=== PATIENT | male | born 1950 | race Caucasian/White ===

== ENCOUNTER 2016-10-18 12:43 | Inpatient (IN) | payer MEDICAID ==
[~2016-10-18] VITALS: Ht 165.1 cm; Wt 63.0 kg
[2016-10-18] MEDS ORDERED: morphine 4 MG/ML VIAL IV STA (15:26)
--- NOTE | 2016-10-18 15:32 | RADRPT ---
PROCEDURE: XR Chest. CLINICAL INDICATION: Sepsis TECHNIQUE: Chest AP portable. COMPARISON: No comparison available. FINDINGS: Right internal jugular tunnel dialysis catheter. The mediastinal structures are unremarkable. There is calcification of the thoracic aorta (consiste nt with atherosclerosis). There is mild cardiomegaly. The pulmonary vascularity is normal. There is mild right mid lung field and RLL patchy consolidation. There is left basilar subsegmental atele ctasis. The pleural spaces are unremarkable. The osseous structures are unremarkable. IMPRESSION: Calcification of the thoracic aorta (consistent with atherosclerosis) Mild cardiomegaly Mild right mid lung field and RLL patchy consolidation Mild left basilar subsegmental atelectasis RPTAT: HGDB .Vipin Serrato MD, Date Time Electronically viewed and signed by .Vipin Serrato MD, on 10/18/2016 15:31 .B/
[2016-10-18 15:42] LABS: ADD SCAN DIFF NO
--- NOTE | 2016-10-18 15:42 | ERA ---
ER Documentation Chief Complaint Date/Time DATE: 10/18/16 TIME: 15:27 Chief Complaint Pt referred from [facility] for admission for L foot gangrene. HPI 65-year-old gentleman with a history of end-stage renal disease and bilateral lower extremity atherosclerosis with left lower extremity gangrene of his first and second toe s/p revascularization with left iliofemoral endarterectomy and a left common femoral artery to distal posterior tibial artery in situ bypass sent by his vascular surgeon, Dr. Quintero, for admission today. It seems the patient has not been doing as well as expected after surgery and he will need an amputation. Patient denies shortness of breath, chest pain, nausea, vomiting , fever, chills. He complains of pain in both his lower extremities, left greater than right. His pain is throbbing in the left leg, radiating up and down the whole leg, 4/10, worse with ambulation, better with rest. His right foot pain is burning, 4/10, nonradiating. ROS All systems reviewed and are negative except as per history of present illness. Medications Home Meds Reported Medications Hydrocodone/Acetaminophen ([place] 5-325 Tablet) 1 Each Tablet, 1 EACH PO Q6H, TAB 10/18/16 Amlodipine Besylate* (Amlodipine Besylate*) 10 Mg Tablet, 10 MG PO DAILY, #30 TAB 10/18/16 PMhx/Soc History of Surgery: Yes (bypass and endarterectomy LLE 09/2016) Hx Cardiac Disorders: Yes (HTN, PAD) Hx Miscellaneous Medical Probl: Yes (ESRD on HD, DM) Hx Alcohol Use: No Hx Substance Use: No Hx Tobacco Use: No Smoking Status: Former smoker FmHx Family History: No diabetes Physical Exam Vitals Vital Signs Date Time Temp Pulse Resp B/P Pulse Ox O2 Delivery O2 Flow Rate FiO2 10/18/16 13:12 97.9 73 18 193/84 100 Physical Exam Const: well appearing, nontoxic, no distress Head: Atraumatic Eyes: Normal Conjunctiva ENT: Normal External Ears, Nose and Mouth. Neck: Full range of motion. No meningismus. Resp: Clear to auscultation bilaterally Cardio: Regular rate and rhythm, no murmurs Abd: Soft, non tender, non distended. Normal bowel sounds Skin: No petechiae or rashes Back: No midline or flank tenderness Ext: LLE: medial aspect of leg with surgical scar with ricarda in place with distal aspect with surrounding erythema. Dry gangrene of 1st and 2nd toes. Associated swelling of foot with tenderness to palpation. No DP or PT pulses palpable. RLE: Big toe with gangrenous changes in the distal aspect. 1+ PT pulse , no DP pulse palpable. Neur: Awake and alert Psych: Normal Mood and Affect Result Diagram: 10/18/16 1525 10/18/16 1525 Results 24 hrs Laboratory Tests Test 10/18/16 15:25 Activated Partial Thromboplast Time 30.3Sec Alanine Aminotransferase (ALT/SGPT) 18IU/L Albumin 3.6g/dl Albumin/Globulin Ratio 0.85 Alkaline Phosphatase 208IU/L Anion Gap 25 Aspartate Amino Transf (AST/SGOT) 25IU/L Basophils # 0.110^3/ul Basophils % 0.4% Blood Urea Nitrogen 59mg/dl Calcium Level 9.3mg/dl Carbon Dioxide Level 26mmol/L Chloride Level 96mmol/L Creatinine 8.31mg/dl Direct Bilirubin 0.00mg/dl Eosinophils # 0.310^3/ul Eosinophils % 2.4% Globulin 4.20g/dl Glucose Level 185mg/dl Hematocrit 32.5% Hemoglobin 9.9g/dl Hemoglobin A1c 5.4% INR International Normalized Ratio 1.16 Indirect Bilirubin 0.0mg/dl Lymphocytes # 2.110^3/ul Lymphocytes % 18.6% Mean Corpuscular Hemoglobin 32.1pg Mean Corpuscular Hemoglobin Concent 30.5g/dl Mean Corpuscular Volume 105.5fl Mean Platelet Volume 11.0fl Monocytes # 1.110^3/ul Monocytes % 9.4% Neutrophils # 7.810^3/ul Neutrophils % 68.7% Nucleated Red Blood Cells # 0.010^3/ul Nucleated Red Blood Cells % 0.0/100WBC Platelet Count 97189^3/UL Potassium Level 4.7mmol/L Prothrombin Time 14.8Sec Prothrombin Time Ratio 1.2 Red Blood Count 3.0810^6/ul Red Cell Distribution Width 18.0% Sodium Level 142mmol/L Total Bilirubin 0.0mg/dl Total Protein 7.8g/dl White Blood Count 11.410^3/ul Current Medications Medications (Trade) Dose Ordered Sig/Familia Route PRN Reason Start Time Stop Time Status Last Admin Dose Admin Morphine Sulfate (morphine) 4 mg ONCE STAT IV 10/18/16 15:26 10/18/16 15:27 DC 10/18/16 15:39 Ondansetron HCl (Zofran Inj) 4 mg BRIDGE ORDER PRN IV NAUSEA AND/OR VOMITING 10/18/16 17:00 10/19/16 16:59 Acetaminophen (Tylenol Tab) 650 mg ER BRIDGE PRN PO MILD PAIN/FEVER 10/18/16 17:00 10/19/16 16:59 Procedures/MDM EKG: Rate/Rhythm: Normal Sinus Rhythm QRS, ST, T-waves: LAFB, No changes consistent w/ acute ischemia Impression: No evidence of ischemia or arrhythmia Chest x-ray: Per radiology Calcification of the thoracic aorta (consistent with atherosclerosis) Mild cardiomegaly Mild right mid lung field and RLL patchy consolidation Mild left basilar subsegmental atelectasis RPTAT: HGDB .Vipin Serrato MD, MD Date Time Electronically viewed and signed by .Vipin Serrato MD, MD on 10/18/2016 15:31 Labs show evidence of anemia, leukocytosis, elevated platelets Patient is presenting with likely failed revascularization of his left lower extremity and gangrene of his right big toe. He is afebrile and hemodynamically stable. There is no evidence of sepsis. Chest x-ray showed patchy infiltrates however on my exam the patient does not have symptoms or signs of pneumonia. Patient does have uncontrolled hypertension with no evidence of hypertensive urgency or emergency. Labs and radiologic testing were ordered as requested by . Patient will be admitted to the hospitalist with consult by Dr. Acevedo, Dr. Paige, and infectious disease. Accepting Care Team: Current data and ongoing care discussed. Time: Time of admission Primary Provider: Bacilio Consulting: Inpatient team to request consults with ID, Cardiology, Nephrology, Vascular inpatient Outstanding Data: blood cultures Departure Diagnosis: Primary Impression: Gangrene of foot Additional Impressions: Atherosclerosis of both lower extremities with bilateral ulceration Asymptomatic hypertension Condition: Serious BARBARA YUSUF MD Oct 18, 2016 15:37
[2016-10-18 15:47] LABS: BASOPHIL # 0.1 10^3/ul (0.0-0.1); BASOPHILS % 0.4 % (0.0-2.0); EOSINOPHILS # 0.3 10^3/ul (0.0-0.5); EOSINOPHILS % 2.4 % (0.0-7.0); HEMATOCRIT 32.5 % (42.0-52.0); HEMOGLOBIN 9.9 g/dl (14.0-18.0); LYMPHOCYTES # 2.1 10^3/ul (0.8-2.9); LYMPHOCYTES % 18.6 % (15.0-51.0); MEAN CORPUSCULAR HEMOGLOBIN 32.1 pg (29.0-33.0); MEAN CORPUSCULAR HGB CONC 30.5 g/dl (32.0-37.0); MEAN CORPUSCULAR VOLUME 105.5 fl (82.0-101.0); MONOCYTE # 1.1 10^3/ul (0.3-0.9); MONOCYTES % 9.4 % (0.0-11.0); NEUTROPHIL # 7.8 10^3/ul (1.6-7.5); NEUTROPHILS % 68.7 % (39.0-77.0); PLATELET COUNT 516 10^3/UL (140-415); RED BLOOD COUNT 3.08 10^6/ul (4.70-6.10); WHITE BLOOD COUNT 11.4 10^3/ul (4.8-10.8)
[2016-10-18 16:01] LABS: INR 1.16; PROTIME 14.8 Sec (12.2-14.2); PT RATIO 1.2
[2016-10-18 16:02] LABS: PARTIAL THROMBOPLASTIN TIME 30.3 Sec (25.0-35.0)
[2016-10-18] MEDS ORDERED: AMLO-147 PO (16:08)
[2016-10-18] MEDS ORDERED: HYDR-906 PO (16:08)
[2016-10-18 16:12] LABS: ALBUMIN 3.6 g/dl (3.3-4.9)
[2016-10-18 16:13] LABS: POTASSIUM 4.7 mmol/L (3.5-5.1)
[2016-10-18 16:15] LABS: ALBUMIN/GLOBULIN RATIO 0.85; CREATININE 8.31 mg/dl (0.61-1.24); TOTAL PROTEIN 7.8 g/dl (6.1-8.1)
[2016-10-18 16:16] LABS: CALCIUM 9.3 mg/dl (8.4-10.2)
[2016-10-18] MEDS ORDERED: ACETAMINOPHEN 325 MG TAB PO PRN (17:00)
[2016-10-18] MEDS ORDERED: ONDANSETRON 4 MG INJ IV PRN ×2 (17:00→22:30)
--- NOTE | 2016-10-18 18:14 | RADRPT ---
PROCEDURE: US bilateral lower extremity arteries. CLINICAL INDICATION: Bilateral leg pain. Claudication that interferes significantly with the alyssa ent's lifestyle. TECHNIQUE: Multiple longitudinal and transverse images of the bilateral lower extremity arteries w ere obtained with powell scale, pulsed Doppler, and color Doppler imaging. COMPARISON: No prior studies are available for comparison. FINDINGS: Right WATCH DIAL STONER:157 cm/sec PSFA:117 cm/sec MSFA:147 cm/sec DSFA:185 cm/sec POP:195 cm/sec ASSISTANT [employer] MANAGER:Occluded DPA:60 cm/sec Left WATCH DIAL STONER:85 cm/sec PSFA:36 cm/sec MSFA:47 cm/sec DSFA:56 cm/sec POP:40 cm/sec ASSISTANT [employer] MANAGER:40 cm/sec DPA:17 cm/sec On the right side, there is normal triphasic flow in the common femoral artery and proximal and mid superficial femoral artery. There is a severe stenosis with monophasic flow in the distal superfici al femoral artery. Monophasic flow is present distal to the stenosis within the otherwise patent po pliteal and dorsalis pedis arteries. The right posterior tibial artery is occluded. On the left side, there is abnormal biphasic flow in the common femoral artery and superficial femor al artery. Abnormal monophasic flow is present in the popliteal artery and calf arteries. IMPRESSION: 1. On the right side, severe stenosis of the distal superficial femoral artery. Occluded right pos terior tibial artery. 2. On the left side, abnormal flow throughout which may indicate iliac disease. RPTAT: QQ .Rick Tomlin MD, MD Date Time Electronically viewed and signed by .Rick Tomlin MD, on 10/18/2016 18:14 .R/
--- NOTE | 2016-10-18 18:58 | RADRPT ---
PROCEDURE: US Lower extremity Veins. CLINICAL INDICATION: Atherosclerotic disease. Preoperative evaluation. TECHNIQUE: Multiple longitudinal and transverse images of the bilateral lower extremity venous flores e was obtained with powell scale and color Doppler imaging. COMPARISON: None available FINDINGS: Right lower extremity: Groin GSV0.45 cm Upper thigh GSV 0.31 cm Mid thigh GSV 0.22 cm Lower thigh GSV 0.18 cm Knee GSV 0.11 cm Upper calf GSV 0.11 cm Mid calf GSV 0.10 cm Ankle GSV0.08 cm Left lower extremity: The left greater saphenous vein is not identified. IMPRESSION: 1. Right lower extremity venous mapping as above. 2. Nonvisualization of the left greater saphenous vein. RPTAT: AA .Peter Cordon MD, MD Date Time Electronically viewed and signed by .Peter Cordon MD, MD on 10/18/2016 18:57 .P/
--- NOTE | 2016-10-18 19:09 | RADRPT ---
PROCEDURE: US Lower extremity arterial. CLINICAL INDICATION: peripheral arterial disease, claudication, left leg pain TECHNIQUE: Multiple sonographic images of the left lower extremity arteries and bypass graft were obtained utilizing grayscale, color-flow and doppler imaging. The images were reviewed on a PACS [employer]. COMPARISON: 10/18/2016 FINDINGS: There is a left leg bypass graft which is widely patent. The bypass originates in the left groin ex tending to the mid calf. LEFT LEG: Left graft origin: 81 cm/s; monophasic waveforms Left proximal graft: 77 cm/s; monophasic waveforms Left mid graft: 94 cm/s; monophasic waveforms Left distal graft: 93 cm/s; monophasic waveforms Left graft in the midcalf: 87 cm/s; monophasic waveforms Left graft in the proximal calf: 187 cm/s; monophasic waveforms RPTAT: AA IMPRESSION: Widely patent left leg bypass graft with slightly increased velocity in the region of the proximal c samantha. Further evaluation with a CT angiogram is recommended. .Jay Faust MD, Date Time Electronically viewed and signed by .Jay Faust MD, on 10/18/2016 19:09 .S/
[2016-10-18 19:10] VITALS: BP 192/87; PULSE 86; RESP 20
[2016-10-18] MEDS: METOPROLOL 25 MG TAB PO SCH (19:36)
[2016-10-18 19:46] VITALS: Ht 165.1 cm; Wt 63.0 kg
[2016-10-18] MEDS ORDERED: AMLODIPINE 10 MG TAB PO ONE (20:00)
[2016-10-18] MEDS: hydrALAzine 20 MG INJ IV PRN (20:35)
[2016-10-18 21:00] VITALS: BP 160/68; PULSE 63; RESP 18
[2016-10-18] MEDS ORDERED: VANCOMYCIN 1 GM (PMX) 250 ML IVPB SCH (21:00)
[2016-10-18 21:30] VITALS: BP 156/69; PULSE 68; RESP 18
[2016-10-18 22:00] VITALS: BP 143/64; PULSE 70; RESP 18
[2016-10-18] MEDS: SOD CHLORIDE 0.9% 1,000 ML IV SCH (22:26)
[2016-10-18 22:30] VITALS: BP 131/61; PULSE 70; RESP 18
[2016-10-18] MEDS ORDERED: GLUCAGON 1 MG INJ IM PRN (22:30)
[2016-10-18] MEDS ORDERED: GLUCOSE GEL 15 GRAM TUBE PO PRN ×2 (22:30)
[2016-10-18] MEDS ORDERED: BISACODYL 10 MG SUPP PR PRN (22:30)
[2016-10-18] MEDS ORDERED: GLUCOSE GEL 15 GRAM TUBE BUCCAL PRN (22:30)
[2016-10-18] MEDS ORDERED: NACL 0.9% 3 ML SYG IV SCH (22:30)
[2016-10-18] MEDS ORDERED: DEXTROSE 50% 50 ML SYRINGE IV PRN ×2 (22:30)
[2016-10-18] MEDS: CEFTRIAXONE 1 GM/50 ML (PMX) 50 ML IVPB SCH (22:50)
[2016-10-18] MEDS: morphine 2 MG INJ IV PRN (22:51)
[2016-10-18 23:00] VITALS: BP 123/58; PULSE 74; RESP 18
[2016-10-18] MEDS: ALBUTEROL HFA 8 GM INHALER INH SCH (23:45)
[2016-10-18] MEDS: INSULIN GLARGINE [LANtus] 3 ML PEN SC SCH (23:48)
[2016-10-18] MEDS: INSULIN ASPART [NOVOLOG] 3 ML PEN SC SCH (23:48)
[2016-10-19] VITALS (33 sets, daily range): BP systolic 130–256; BP diastolic 37–201; PULSE 67–84; RESP 12–22
[2016-10-19 01:28] LABS: TROPONIN-I 0.085 ng/ml (0.00-0.12)
[2016-10-19 01:36] LABS: CK-MB 0.96 ng/ml (0.0-2.4)
[2016-10-19] MEDS: HEPARIN 25000 UNITS/250 ML 250 ML IV SCH (01:53)
[2016-10-19] MEDS: ACCU-CHEK XX SCH (03:13)
--- NOTE | 2016-10-19 04:42 | CONS ---
DATE OF ADMISSION: 10/18/2016 DATE OF CONSULTATION: 10/18/2016 Dear Doctors: HISTORY OF PRESENT ILLNESS: Mr. Zepeda is a 65-year-old gentleman with a history of end-st age renal disease and bilateral lower extremity atherosclerosis with gangrene. The patient had been seen by us back in August of 2016 for creation of a fistula secondary to the end-stage renal disea se. The patient currently has a right chest wall PermCath catheter that has been exchanged multiple times and currently his new one in the right chest wall has been functioning well. Since our last visit, patient had developed worsening gangrene of the bilateral lower extremities in which he had u ndergone a left lower extremity revascularization of femoral to distal posterior tibial artery in si tu bypass at [facility]. The patient had come to our office for evaluation of his lo wer extremities and he seems that he has developed new right lower extremity gangrene of the first t oe that essentially has worsened with cellulitis and at the same time patient has had the increased pain at the left lower extremity over the past week; however, he has not sought any medical advice. Upon discussion with the patient, it seems that the patient originally had done well postoperativel y for first 2-1/2 to 3 weeks; however, over the past week he had slowly developed some pain in the l eft lower extremity and some suggestion of possible changes in his pedal outflow. At the moment, th e patient denies shortness of breath, chest pain, nausea, vomiting, fever, or chills. The patient also did have some reperfusion edema and his first and second toe had developed adequate demarcation post his revascularization in which we felt optimistic that we would be able to provide adequate limb salvage for him. REVIEW OF SYSTEMS: A 12-point review performed and negative except what is mentioned in the HPI. PAST MEDICAL HISTORY: Entails hypertension, diabetes, hypercholesterolemia, bilateral lower extremi ty atherosclerosis with gangrene, end-stage renal disease, anemia of chronic disease, coronary arter y disease. PAST SURGICAL HISTORY: 1. Entails multiple chest wall catheters. 2. Left lower extremity iliofemoral endarterectomy with bovine patch angioplasty and common femoral artery to distal posterior tibial artery in situ bypass. SOCIAL HISTORY: Positive for being a former smoker, currently not smoking. Denies illicit drug use or alcohol abuse. FAMILY HISTORY: Positive for coronary artery disease and hypertension. PHYSICAL EXAMINATION: GENERAL: Alert and oriented x3, no apparent distress. HENT: Normocephalic, atraumatic. PERRLA, EOMI. Mucosa moist. NECK: Supple. No carotid bruit. PULMONARY: Clear to auscultation bilaterally. No crackles. CARDIOVASCULAR: S1, S2 present. No murmurs. ABDOMEN: Soft, nontender, nondistended. Bowel sounds positive. EXTREMITIES: Lower extremity: Right lower extremity palpable femoral pulse, nonpalpable pedal pulse. Motor, sen regi intact. Cap refill 3 to 4 seconds. He has developed gangrene of the first and second toe with surrounding erythema and pain of the first toe which has worsened since we had seen him in early [facility]. Left lower extremity: Palpable femoral pulse, palpable graft at the knee. Dopplerable signal right to the mid calf and seems that he has a branch from the in situ bypass that goes to the posterior c samantha segment. At that segment, it seems that the flow decreases and he may be having a steal from th e graft. He does have some edema that is 1+. He does have gangrene of the first and second toe. H is capillary refill has become a bit sluggish, being 3 seconds. He does have some areas of erythema around the gangrene and his incision line ricarda are all intact in the groin, thigh, and the upper calf area and from the mid calf down he has developed some eschar and wound necrosis towards the ar eas of the ankle with some serosanguineous drainage. ASSESSMENT AND PLAN: Bilateral lower extremity atherosclerosis with gangrene: It seems that the mikey mccain's left lower extremity revascularization there is some concern that the graft may not be fully having an adequate profusion all the way to the foot. There seems to be a vein that occurs in the mid calf area that may be stealing the flow. We will need to evaluate this by obtaining a CT angiog arpita promptly in order to further evaluate the outflow of the bypass. We will also plan to obtain arterial vascular ultrasound to delineate his new right lower extremity infrainguinal disease as his gangrene has essentially developed of the first toe in which he had tis cora loss earlier in the month. We will obtain bilateral lower extremity vein mapping in case the patient will require further revas cularization as we would need further conduit for him. Will go ahead and check his lesser saphenous veins of bilateral lower extremities. End-stage renal disease: The patient has had a history of bilateral upper extremity, chest wall cat heters, and he has also undergone bilateral upper extremity venograms. The patient had been schedul ed as an outpatient for eventual left upper extremity fistula creation. However, at the moment we will plan to keep his antecubital segments free of any IV lines or blood draws and will eventually p nancy for creation of a new fistula for him. Optimize vascular status (BP meds, diet, nutrition, exercise, sugar control, antiplatelets). We will consult our infectious disease, Dr. Galindo, for further evaluation and recommendations. We will consult Dr. Cuevas for podiatry evaluation and eventual toe amputations. We will consult Dr. Acevedo from cardiology to further evaluate the patient and for clearance for ou r intraoperative intervention. We will consult Dr. Paige from his end-stage renal disease standpoint for evaluation of his kidney f unction and scheduling for dialysis earlier prior to him having a surgical intervention. We will tentatively schedule the patient for the operating room tomorrow morning in order to debride the area of the left lower extremity distal wound and to further evaluate the bypass near the calf area and perform possible revascularization for the patient. Apply Betadine paint to all the incision lines for now. Thank you for allowing us to participate in the care of your patient. Please call with any question s. Dictated By: CYNDI GARCIA/SIN Conf#: [id number] DID#: [id number]
--- NOTE | 2016-10-19 05:43 | CONS ---
DATE OF ADMISSION: 10/18/2016 DATE OF CONSULTATION: 10/18/2016 REASON FOR CONSULTATION: Preoperative evaluation. REQUESTING PHYSICIAN: Dr. Bradley Carr from the vascular surgery service. HISTORY OF PRESENT ILLNESS: Mr. Goldsmith is a 65-year-old male with history of end-stage re nal disease on hemodialysis since 2013, coronary artery disease, diabetes, diabetic nephropathy, and dyslipidemia who presents with a left toe ulcer. The patient has been evaluated by vascular surger y with plans for revascularization. Given these findings, cardiology consult has been requested for preoperative evaluation. has undergone lower extremity revascularization and continues to salazar ve gangrenous changes of the toe and therefore will undergo further surgical treatment. Given these findings, cardiac consult was requested for preoperative evaluation. At this time, the patient den ies chest pain. PAST MEDICAL HISTORY: As above in HPI. MEDICATIONS CURRENTLY IN HOSPITAL: 1. Zofran. 2. Tylenol. MEDICATIONS PRIOR TO ADMIT: 1. Norvasc. 2. Hydrocodone. ALLERGIES: NO KNOWN DRUG ALLERGIES. SOCIAL HISTORY: No current tobacco, prior tobacco usage. No ETOH or illicit drug use. FAMILY HISTORY: No history of sudden cardiac or early CAD. REVIEW OF SYSTEMS: As above in HPI. CONSTITUTIONAL: No fevers, chills. PULMONARY: No current shortness of breath. CARDIOVASCULAR: No current chest pain, history of coronary artery disease. GASTROINTESTINAL: No vomiting. GENITOURINARY: No hematuria. MUSCULOSKELETAL: Degenerative joint disease, nonhealing lower extremity ulcer of the toe. PSYCHIATRIC: No documented psych history. NEUROLOGIC: No documented history of CVA. ENDOCRINE: Diabetes mellitus. PHYSICAL EXAMINATION: VITAL SIGNS: Temperature of 97.9, blood pressure markedly elevated at 193/84, pulse 72, respiratory rate 18, saturation 100%. GENERAL: The patient is alert, awake, in no acute distress. NECK: JVP approximately 8 to 9 cm water. CHEST: Fair air movement throughout. HEART: Regular rate and rhythm. Normal S1, S2, I/ systolic murmur, nondisplaced PMI. ABDOMEN: Positive bowel sounds, soft. EXTREMITIES: Nonhealing lower extremity ulceration, difficult to palpate distal pulses bilaterally, posterior tibial, dorsalis pedis. LABORATORY DATA: Most recent from today, white count 11.4, hemoglobin 9.9, platelet count of 516. Sodium 142, potassium 4.7, creatinine 8.3, BUN of 59, AST 25, ALT 18. INR of 1.1. IMAGING STUDIES: As above in HPI with a chest x-ray revealing mild cardiomegaly, mild right mid betzaida g field and right lower lobe patchy consolidation. IMPRESSION: 1. Preoperative evaluation prior to lower extremity vascular surgery, possible amputation. 2. Hypertension, uncontrolled. 3. Abnormal electrocardiogram, assess for acute coronary syndrome. 4. Dyslipidemia. 5. Peripheral arterial disease, status post prior revascularization. 6. Lower extremity nonhealing ulceration of the toe. 7. Possible pneumonia by chest x-ray. 8. End-stage renal disease on hemodialysis. 9. Anemia. 10. Leukocytosis. RECOMMENDATIONS: 1. At this time, would resume the patient's baseline Norvasc and likely initiate the patient on low dose beta darling to improve overall heart rate and increased blood pressure control and for cardio protective effects. 2. We will check a 2D echocardiogram to further assess the patient's ejection fraction, wall motion , and major valve abnormalities. 3. We will complete a rule out for myocardial infarction to ensure the patient's EKG abnormalities are chronic in nature and not due to any recent acute coronary syndrome such as acute myocardial inf arction. 4. Check a fasting lipid panel for general risk stratification and initiate lipid-lowering medicati on as necessary. 5. Pain control. 6. Local wound control. 7. Further recommendations pertaining to the surgical candidacy of this patient will be made after completion of above studies with possible need for further evaluation with stress testing. Thank you for allowing me to take part in the care of this patient. I will continue to follow along very closely with you. Dictated By: KAYLEE LYNN/SIN Conf#: [id number] DID#: [id number] CC: BRADLEY CARR MD;*EndCC*
[2016-10-19 05:51] LABS: ADD SCAN DIFF NO
[2016-10-19] MEDS: ALBUTEROL HFA 8 GM INHALER INH SCH ×3 (06:00→22:00)
[2016-10-19 06:17] LABS: BASOPHILS % 0.3 % (0.0-2.0); EOSINOPHILS # 0.3 10^3/ul (0.0-0.5); EOSINOPHILS % 2.3 % (0.0-7.0); HEMATOCRIT 29.4 % (42.0-52.0); LYMPHOCYTES # 2.1 10^3/ul (0.8-2.9); LYMPHOCYTES % 18.8 % (15.0-51.0); MEAN CORPUSCULAR HEMOGLOBIN 31.9 pg (29.0-33.0); MEAN CORPUSCULAR HGB CONC 30.6 g/dl (32.0-37.0); MEAN CORPUSCULAR VOLUME 104.3 fl (82.0-101.0); MEAN PLATELET VOLUME 11.4 fl (7.4-10.4); MONOCYTE # 1.1 10^3/ul (0.3-0.9); MONOCYTES % 10.1 % (0.0-11.0); NEUTROPHIL # 7.6 10^3/ul (1.6-7.5); NEUTROPHILS % 68.1 % (39.0-77.0); PLATELET COUNT 482 10^3/UL (140-415); RED BLOOD COUNT 2.82 10^6/ul (4.70-6.10); RED CELL DISTRIBUTION WIDTH 18.1 % (11.5-14.5); WHITE BLOOD COUNT 11.1 10^3/ul (4.8-10.8)
[2016-10-19 06:25] LABS: ALBUMIN 3.3 g/dl (3.3-4.9)
[2016-10-19 06:26] LABS: POTASSIUM 4.7 mmol/L (3.5-5.1)
[2016-10-19 06:28] LABS: CREATININE 8.81 mg/dl (0.61-1.24)
[2016-10-19 06:29] LABS: ALBUMIN/GLOBULIN RATIO 0.84; CALCIUM 8.6 mg/dl (8.4-10.2); PHOSPHORUS 3.2 mg/dl (2.5-4.9); TOTAL PROTEIN 7.2 g/dl (6.1-8.1)
[2016-10-19 06:30] LABS: MAGNESIUM 2.8 mg/dl (1.7-2.5)
[2016-10-19 06:47] LABS: THYROID STIMULATING HORMONE 1.22 MIU/L (0.465-4.680)
[2016-10-19 06:51] LABS: TROPONIN-I 0.085 ng/ml (0.00-0.12)
[2016-10-19 07:03] LABS: CK-MB 0.9 ng/ml (0.0-2.4)
[2016-10-19 07:42] LABS: CHOL/HDL RATIO 3.6 RATIO
--- NOTE | 2016-10-19 07:57 | CONS ---
DATE OF ADMISSION: 10/18/2016 DATE OF CONSULTATION: 10/18/2016 REFERRING PHYSICIAN: Wallace Ribera MD TYPE OF CONSULT: Nephrology REASON FOR CONSULTATION: Maintenance hemodialysis in chronic dialysis patient who presented with ga ngrene of the lower extremities and possible plan for intervention for her lower extremity angiogram due to the gangrene. HISTORY OF PRESENT ILLNESS: This is a 65-year-old male with a past medical history of hypertension, peripheral arterial disease, who had lower extremity bypass and endarterectomy done in the left low er extremity September 2016. The patient had a history of end-stage renal disease on hemodialysis du e to hypertensive nephrosclerosis. The patient was seen by vascular surgery, Dr. Bradley Quintero, a nd noted to have lower extremity gangrene. The patient has first and second toe gangrene. As per t he patient, gives a previous history of lower extremity bypass and endarterectomy done in September 02, which looks like it is not working, so the patient gets [facility]. Renal has been consulted for maintenance hemodialysis in a chronic dialysis patient . The patient has a right upper chest tunneled hemodialysis catheter. He has been on dialysis since . The dialysis catheter was done at [facility]. Previous history of lower extremity ga ngrene, pain, swelling. REVIEW OF SYSTEMS: Review of systems has been obtained and is negative except what is mentioned in history of present illness. PAST MEDICAL HISTORY: Notable for hypertension, coronary artery disease, diabetes mellitus, diabeti c nephropathy, hyperlipidemia, end-stage renal disease on hemodialysis Tuesday, and . PAST SURGICAL HISTORY: Multiple chest wall catheters. ALLERGIES: NO KNOWN DRUG ALLERGIES. 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 He denies any current alcohol, tobacco or illicit drug use. FAMILY HISTORY: Positive for hypertension, diabetes, coronary artery disease. PHYSICAL EXAMINATION: VITAL SIGNS: Temperature 97.7, heart rate 86, respirations 20, blood pressure 192/87, saturation 94 % on room air. GENERAL: Awake, alert, in moderate distress due to the elevated blood pressure and the pain. HEENT: Normal. Oropharynx clear. NECK: Supple, no JVD. LUNGS: Clear to auscultation. No crackles, no wheezes. HEART: S1, S2, with regular rhythm, no murmur. ABDOMEN: Soft, nontender, nondistended. Bowel sounds are present. EXTREMITIES: The patient has lower extremity gangrene. No cyanosis. Right upper chest tunneled he modialysis catheter. NEUROLOGICAL: Alert, oriented x4. Cranial nerves II-XII intact. No focal deficits. PSYCHIATRIC: Appropriate affect and mood. LABORATORY DATA/DIAGNOSTIC IMAGING: WBC 11.4, hemoglobin 9.9, platelet count 516. Sodium 142, pota ssium 4.7, chloride 96, bicarbonate 26, BUN 59, creatinine 8.3, glucose 185, calcium 9.3. LFTs are normal. Albumin 3.6. Prothrombin time 14.8, PTT 30.3, INR 1.16. The patient had a chest x-ray don e that shows a calcification of the thoracic aorta, mild cardiomegaly, mild right in the righ t lower lobe patchy consolidations, left basilar subsegmental atelectasis. Arterial Doppler ultraso unds done which revealed severe stenosis of the distal superficial femoral artery on the right side, the right posterior tibial artery, on the left side iliac disease, patent graft. IMPRESSION: This is a 65-year-old male who presented with lower extremity gangrene on a peripheral arterial ultrasound. He is noted to have a severe stenosis of the distal right superficial femoral artery and also the occluded right posterior tibial artery. [facility] The patient is possibly in need of a lower extremity angiogram. 1. Lower extremity gangrene secondary to severe occlusive peripheral arterial disease. 2. Severe stenosis of the right distal superficial femoral artery and occluded right posterior tibi al artery. 3. End-stage renal disease on hemodialysis Tuesday, , Tuesday. 4. Accelerated hypertension. 5. Hyperlipidemia. 6. History of hypertension with peripheral arterial disease. 7. History of peripheral arterial disease status post left lower extremity bypass in September 2016. PLAN: Thank you, Dr. Ribera, for this consultation. [facility] and he will be getting admitted to the med/surg floor. 1. I will give the patient amlodipine 10 mg p.o. daily for his blood pressure control and also cont inue the metoprolol 25 mg p.o. b.i.d., hydralazine 10 mg IV every 4 hours p.r.n. systolic blood pres sure more than 150. 2. AM labs including the CBC and the BCMP will be ordered. 3. I will arrange the patient's hemodialysis to be done tomorrow. The circuit court judge and the primary care service is already on the case. Thank you, Dr. Ribera, for this consultation. I will continue to follow this patient along with cardiology and vascular service. Total time spent on this patient's evaluation including making an assessment and plan, communicating with the patient and updating family members at bedside, communicating with the nursing staff and o rdering dialysis for tomorrow took more than 90 minutes and more than 50% of time spent in education . Dictated By: LISA MERRITT MD, KP/SIN Conf#: [id number] DID#: [id number]
--- NOTE | 2016-10-19 07:58 | CONS ---
DATE OF ADMISSION: 10/18/2016 DATE OF CONSULTATION: 10/18/2016 INFECTIOUS DISEASE CONSULTATION REASON FOR CONSULTATION: Antibiotic management. HISTORY OF PRESENT ILLNESS: Caleb Anderson is a 65-year-old male who comes in from the [facility] for admission for left foot gangrene. Mr. Patricio Anderson is a 65-year-old male wi th a number of problems, includin. End-stage renal disease. 2. Bilateral lower extremity atherosclerosis who presents with left lower extremity gangrene of his 1st and 2nd toe. 3. Status post revascularization of left iliofemoral endarterectomy and left common femoral artery to distal posterior tibial artery in situ bypass. Sent in by vascular surgeon, Dr. Quintero for admission. The patient has not been doing well after surgery and will probably need an amputation. His pain is about 4/10. His left leg is throbbing a nd the pain radiates down the whole leg. PAST MEDICAL HISTORY: Operations as outlined. Past medical history includes hypertension, peripher al artery disease, end-stage renal disease on hemodialysis, and diabetes mellitus. FAMILY HISTORY: Noncontributory. SOCIAL HISTORY: He did smoke in the past, former smoker. Does not drink or abuse drugs. ALLERGIES: NONE TO PENICILLIN, SULFA OR FOODS. MEDICATIONS: Per chart. REVIEW OF SYSTEMS: As per HPI. PHYSICAL EXAMINATION: GENERAL: The patient is a well-developed, well-nourished male, alert, responsive, in no acute distr ess. VITAL SIGNS: Stable. He is afebrile. SKIN: Without generalized rash. HEENT: Within normal limits. NECK: Supple. LYMPH NODES: None palpable. CHEST: Decreased breath sounds at the bases. HEART: Without murmur or gallop. ABDOMEN: Soft, nontender, without organosplenomegaly or masses. EXTREMITIES: Left lower extremity has a surgical scar in the medial aspect with ricarda in place wi th distal surrounding erythema. There is dry gangrene of the 1st and 2nd toes and associated swelli ng of the foot with tenderness to palpation. Distal pulses were not palpable. Right lower extremit y big toe with gangrenous changes in the distal aspect. RECTAL AND GENITAL: Exams deferred. NEUROLOGIC: Decreased sensations in distal extremities. ANCILLARY LABORATORY DATA: White count is 11.4, H and H 9.9 and 32.5, platelet count ____. BUN and creatinine 59/8.31. ____. DIAGNOSTIC DATA: The patient's right lower extremity has nonvisualization of the left greater saphe nous vein on ultrasound of the lower extremity veins. Arterial studies on the right side, severe st enosis of the distal superficial femoral artery with occluded right posterior tibial. On the left, abnormal flow throughout which may indicate iliac disease, widely patent left leg bypass graft. Fur ther evaluation with CT angiogram was recommended. Chest x-ray: Mild right mid-lung field and right lower lobe patchy consolidation. IMPRESSION AND PLAN: The patient presents with failed revascularization of left lower extremity and gangrene of his right big toe. He is afebrile. Chest x-ray shows patchy infiltrates. The patient was admitted and Dr. Acevedo and Dr. Paige were called in consultation. Patient was begun on ceftr iaxone and vancomycin. We will continue him on that regimen. He will require probable amputation a s previously outlined. I will dictate my findings to Dr. Quintero and the aforementioned consultan ts. Dictated By: NICOLE NICHOLS MD, JD/SIN Conf#: [id number] DID#: [id number]
--- NOTE | 2016-10-19 07:58 | HP ---
DATE OF ADMISSION: 10/18/2016 PRIMARY CARE PHYSICIAN: Unknown. CONSULTANTS: Dr. Carr, Lisa Paige MD, Nigel Nichols MD, Dr. Acevedo CHIEF COMPLAINT: Left foot gangrene. HISTORY OF PRESENT ILLNESS: A 65-year-old gentleman admitted with left lower extremity pain along h is toes for a week, constant. No known aggravating, no known relieving factors. Talking may make i t worse. Denies any edema, fever, chills, rigors. Denies any leg pain in his right. Denies any ar m pain. The patient had an angiogram and bypass of that same extremity recently, but unfortunately the [facility] was noted to have concern for graft failure. Incidentally, the patient states that having additionally a right toe discoloration over the last 3 to 4 days. VITAL SIGNS: Blood pressure 190/80, rate of 70, respiratory rate 18, sats 100%, temperature 97. PAST MEDICAL HISTORY: 1. Left lower extremity gangrene. 2. Peripheral artery disease. 3. End-stage renal disease, on dialysis. 4. Hypertension. 5. Hypertensive nephrosclerosis. 6. Diabetes. 7. Peripheral artery disease. 8. Past tobacco abuse for 15 years. 9. Hypertensive nephrosclerosis less likely. 10. Anemia. 11. Possible past alcohol. 12. Possible coronary artery disease. PAST SURGICAL HISTORY: Hemodialysis access, left hand and right upper chest, left axis was clotted at one point. He has been on dialysis for 2 years. SOCIAL HISTORY: Presently no alcohol or tobacco. 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 FAMILY HISTORY: There is no family history for coronary cancer or stroke. ALLERGIES: VANCOMYCIN. REVIEW OF SYSTEMS: NEUROLOGIC: No headache. No loss of speech or vision. CARDIOVASCULAR: Positive chest pain, no dyspnea, no edema. The chest pain is atypical at rest at n ight while lying down, relieved with sitting up. He does not get any significant diaphoresis, nause a, vomiting, palpitations during the episode. LUNGS: Positive cough, clear expectoration. No hemoptysis, no fever. ABDOMEN: No pain, nausea, vomiting, diarrhea, constipation. GENITOURINARY: No abdominal pain, fever, dysuria. MUSCULOSKELETAL: Moderate gait dysfunction. No rash, no itching, no edema. CONSTITUTIONAL: No fevers, no chills, weight loss unknown. HEMATOLOGIC: There is no hematochezia, melena, hematuria. PSYCHIATRY: The patient has stable mood without significant agitation, anxiety, depression. He is in good spirits otherwise. PHYSICAL EXAMINATION: HEENT: Extraocular movements are intact. No pallor, no icterus. No adenopathy. No carotid bruits . No JVD. No droop. CARDIOVASCULAR: S1, S2 regular. No murmur, rubs, gallops appreciated. LUNGS: Clear to auscultation bilaterally. CHEST: Right dialysis access clean, dry, and intact. ABDOMEN: Bowel sounds were present, nontender, nondistended. No rigidity. No rebound or guarding. No abdominal bruits. EXTREMITIES: Without any edema. Positive bilateral stasis dermatitis, diabetic neuropathy, poor pu lses bilaterally. The left foot is cooler than the right. The left lower extremity ricarda are int act. Scar healing still forming. LABORATORIES: White cell count of 11, hemoglobin and hematocrit of 9 and 32, MCV 105, platelets of 516. INR 1.1. Sodium 142, potassium 4.7, chloride 96, bicarbonate 26, BUN of 59, creatinine 8.3. A1c of 5.4, glucose of 180, protein is 7, albumin of 3.6. Chest x-ray: Mild cardiomegaly, right lo wer lobe patchy consolidation, atelectasis. Ultrasound, venous, right and left does not show any DV T. There is nonvisualization of the left greater saphenous vein of undetermined significance. Michelle rial ultrasound on the right shows severe stenosis of the distal superficial femoral artery, occlude d right posterior tibial artery. On the left there is abnormal flow. Shows a widely patent left le g bypass graft with slightly increased velocities in the region of proximal calf. ASSESSMENT AND PLAN: 1. Left lower extremity dry gangrene with peripheral artery disease. 2. End-stage renal disease. 3. Hypertension/diabetes/metabolic syndrome. 4. Anemia. 5. Past tobacco. 6. Additionally, right lower extremity dry gangrene. 7. Possible past alcoholism. 8. Pneumonia versus atelectasis. PLAN: 1. Admit to med/surg, consult vascular surgery for opinion, angiogram, and potential innervation of his bypass graft. Consult infectious disease for evaluation of secondary infection, possible osteo . Consult nephrology for dialysis continuity and assistance with extra dialysis as needed post rafi ogram. 2. Consult cardiology for perioperative risk stratification, clearance, etc. 3. Treat pain. Continue IV fluids, n.p.o. Chest x-ray done. EKG pending. From an internal medic ine standpoint, the patient appears to be at low to intermediate risk, may proceed forward for angio gram as well as left amputation of his toes when scheduled. The patient and family aware of the ___ _ and options. They are opting to proceed forward. Will need the right lower extremity evaluated a s well. Doubt pulmonary infectious process. We will continue with incentive spirometry and albuter ol. Ay short course of Levaquin if okay with ID as well. A 2-D echo ordered as well. Continue GI and DVT prophylaxis, Lovenox, heparin, after surgery. Dictated By: CAL FLORES MD AC/NTS Conf#: [id number] DID#: [id number] CC: LISA PAIGE MD; KAYLEE ACEVEDO MD; NIGEL NICHOLS MD; CYNDI CARR MD;*EndCC*
[2016-10-19] MEDS: INSULIN ASPART [NOVOLOG] 3 ML PEN SC SCH ×4 (08:15→20:56)
[2016-10-19] MEDS: AMLODIPINE 10 MG TAB PO SCH (08:29)
[2016-10-19] MEDS: FAMOTIDINE 20 MG TAB PO SCH (08:29)
[2016-10-19] MEDS: METOPROLOL 25 MG TAB PO SCH ×2 (08:29→20:58)
[2016-10-19] MEDS: morphine 2 MG INJ IV PRN ×3 (09:11→23:38)
[2016-10-19] MEDS ORDERED: IODIXANOL LOCM 100 ML BTL ONE (09:51)
[2016-10-19] MEDS ORDERED: SOD CHLORIDE 0.9% 100 ML ONE (09:51)
[2016-10-19] MEDS ORDERED: IODIXANOL LOCM 50 ML BTL ONE (09:52)
--- NOTE | 2016-10-19 11:03 | CONS ---
Date/Time of Note Date/Time of Note DATE: 10/19/16 TIME: 10:56 Assessment/Plan Assessment/Plan Additional Assessment/Plan 1. Preoperative evaluation prior to lower extremity vascular surgery, possible amputation- aggie-op evaluation in place, con't to follow. 2. Hypertension, uncontrolled- better now, will Rx as needed. 3. Abnormal electrocardiogram, assess for acute coronary syndrome. 4. Dyslipidemia. 5. Peripheral arterial disease, status post prior revascularization- s/p vascular studies/CT - vascular team follows 6. Lower extremity nonhealing ulceration of the toe. 7. Possible pneumonia by chest x-ray. 8. End-stage renal disease on hemodialysis. 9. Anemia. 10. Leukocytosis. Consultation Date/Type/Reason Admit Date/Time Oct 18, 2016 at 16:52 Initial Consult Date 24 HR Interval Summary Free Text/Dictation No acute change - BP stable - will adjust Rx as needed -con't vascular evaluation. ROS: No fever, no chills, no nausea, no vomiting, no diarrhea/constipation No recent weight changes No chest pain, no PND, no orthopnea No dizziness, blurred vision No thirst, no heat or cold intolerance Exam/Review of Systems Vital Signs Vitals Vital Signs Date Time Temp Pulse Resp B/P Pulse Ox O2 Delivery O2 Flow Rate FiO2 10/19/16 08:02 97.7 79 19 137/65 10/18/16 19:10 94 Intake and Output 10/18/16 10/18/16 10/19/16 15:00 23:00 07:00 Intake Total 865 ml Output Total 2500 ml Balance -1635 ml Exam General: WN/WD/NAD, AOx 3 HEENT: Unicetric/atraumatic/EOMI (follow commands) NECK: JVD elevated, no thyromegaly Lymph: no lymphadenopathy HEART: regular with no S3, II/ systolic murmur at apex LUNGS: Coarse sounds ABD: soft, NT, ND, +BS : Intact Neuro: non focal SKIN: chronic changes EXT: severe pvd/ gangrene Results Result Diagram: 10/19/16 0545 10/19/16 0545 Results 24 hrs Laboratory Tests Test 10/18/16 15:25 10/18/16 22:49 10/19/16 00:35 10/19/16 03:12 Activated Partial Thromboplast Time 30.3 Alanine Aminotransferase (ALT/SGPT) 18 Albumin 3.6 Albumin/Globulin Ratio 0.85 Alkaline Phosphatase 208 H Anion Gap 25 H Aspartate Amino Transf (AST/SGOT) 25 Basophils # 0.1 Basophils % 0.4 Blood Urea Nitrogen 59 H Calcium Level 9.3 Carbon Dioxide Level 26 Chloride Level 96 L Creatinine 8.31 H Direct Bilirubin 0.00 Eosinophils # 0.3 Eosinophils % 2.4 Globulin 4.20 H Glucose Level 185 Hematocrit 32.5 L Hemoglobin 9.9 L Hemoglobin A1c 5.4 INR International Normalized Ratio 1.16 Indirect Bilirubin 0.0 Lymphocytes # 2.1 Lymphocytes % 18.6 Mean Corpuscular Hemoglobin 32.1 Mean Corpuscular Hemoglobin Concent 30.5 L Mean Corpuscular Volume 105.5 H Mean Platelet Volume 11.0 H Monocytes # 1.1 H Monocytes % 9.4 Neutrophils # 7.8 H Neutrophils % 68.7 Nucleated Red Blood Cells # 0.0 Nucleated Red Blood Cells % 0.0 Platelet Count 516 H Potassium Level 4.7 Prothrombin Time 14.8 H Prothrombin Time Ratio 1.2 Red Blood Count 3.08 L Red Cell Distribution Width 18.0 H Sodium Level 142 Total Bilirubin 0.0 L Total Protein 7.8 White Blood Count 11.4 H Bedside Glucose 187 137 Creatine Kinase 20 L Creatine Kinase Index 4.8 Creatinine Kinase MB (Mass) 0.96 Troponin I 0.085 Test 10/19/16 05:45 10/19/16 08:21 Alanine Aminotransferase (ALT/SGPT) 20 Albumin 3.3 Albumin/Globulin Ratio 0.84 Alkaline Phosphatase 180 H Anion Gap 23 H Aspartate Amino Transf (AST/SGOT) 57 #H Basophils # 0.0 Basophils % 0.3 Blood Urea Nitrogen 69 H Calcium Level 8.6 Carbon Dioxide Level 22 Chloride Level 100 Cholesterol Level 143 Cholesterol/HDL Ratio 3.6 Creatine Kinase 25 Creatine Kinase Index 3.6 Creatinine 8.81 H Creatinine Kinase MB (Mass) 0.90 Direct Bilirubin 0.00 Eosinophils # 0.3 Eosinophils % 2.3 Globulin 3.90 H Glucose Level 105 # HDL Cholesterol 39 Hematocrit 29.4 L Hemoglobin 9.0 L Hemoglobin A1c 5.4 Indirect Bilirubin 0.0 LDL Cholesterol, Calculated 85 Lymphocytes # 2.1 Lymphocytes % 18.8 Magnesium Level 2.8 H Mean Corpuscular Hemoglobin 31.9 Mean Corpuscular Hemoglobin Concent 30.6 L Mean Corpuscular Volume 104.3 H Mean Platelet Volume 11.4 H Monocytes # 1.1 H Monocytes % 10.1 Neutrophils # 7.6 H Neutrophils % 68.1 Nucleated Red Blood Cells # 0.0 Nucleated Red Blood Cells % 0.0 Phosphorus Level 3.2 Platelet Count 482 H Potassium Level 4.7 Red Blood Count 2.82 L Red Cell Distribution Width 18.1 H Sodium Level 140 Thyroid Stimulating Hormone (TSH) 1.220 Total Bilirubin 0.0 L Total Protein 7.2 Triglycerides Level 97 Troponin I 0.085 White Blood Count 11.1 H Bedside Glucose 128 Medications Medications Current Medications Metoprolol Tartrate (Lopressor) 25 mg BID PO Last administered on 10/18/16 19: 36; Admin Dose 25 MG; Start 10/18/16 at 19:21 Amlodipine Besylate (Norvasc) 10 mg DAILY PO ; Start 10/19/16 at 09:00 Hydralazine HCl 10 mg 10 mg Q4H PRN IV SBP>150 mm Hg Last administered on 10/18 20:35; Admin Dose 10 MG; Start 10/18/16 at 20:00 Sodium Chloride (NS) 1,000 ml @ 50 mls/hr Q20H IV Last administered on 22:26; Admin Dose 50 MLS/HR; Start 10/18/16 at 22:30 Albuterol (Ventolin Hfa) 2 puff Q8 INH ; Start 10/18/16 at 22:30 Famotidine (Pepcid) 20 mg DAILY PO ; Start 10/19/16 at 09:00 Insulin Glargine 7 unit 7 unit DAILY@20 SC Last administered on 10/18/16 23:48 ; Admin Dose 7 UNIT; Start 10/18/16 at 22:30 Ceftriaxone Sodium (Rocephin) 50 ml @ 100 mls/hr Q24H IVPB Last administered on 10/18/16 22:50; Admin Dose 100 MLS/HR; Start 10/18/16 at 22:30 Ondansetron HCl (Zofran Inj) 4 mg Q6H PRN IV NAUSEA AND/OR VOMITING; Start at 22:30 Acetaminophen (Tylenol Tab) 650 mg Q6H PRN PO PAIN LEVEL 1-3 OR FEVER; Start 3 /20/17 at 22:30 Morphine Sulfate (morphine) 2 mg Q4H PRN IV SEVERE PAIN LEVEL 7-10 Last administered on 10/19/16 09:11; Admin Dose 2 MG; Start 10/18/16 at 22:30 Docusate Sodium (Colace) 100 mg Q12H PRN PO CONSTIPATION; Start 10/18/16 at 22: 30 Bisacodyl (Dulcolax Supp) 10 mg DAILY PRN [place] CONSTIPATION; Start 10/18/16 at 22 :30 Diagnostic Test (Pha) (Accucheck) 1 ea 02 XX Last administered on 10/19/16 03: 13; Admin Dose 1 EA; Start 10/19/16 at 02:00 Acetaminophen/ Hydrocodone Bitart ([place] (10)) 1 tab Q4H PRN PO PAIN LEVEL 6-10; Start 10/18/16 at 22:30 Miscellaneous Information 1 ea NOTE XX ; Start 10/18/16 at 22:30 Glucose (Glutose) 15 gm Q15M PRN PO DECREASED GLUCOSE; Start 10/18/16 at 22:30 Glucose (Glutose) 22.5 gm Q15M PRN PO DECREASED GLUCOSE; Start 10/18/16 at 22: 30 Dextrose (D50w Syringe) 25 ml Q15M PRN IV DECREASED GLUCOSE; Start 10/18/16 at 22:30 Dextrose (D50w Syringe) 50 ml Q15M PRN IV DECREASED GLUCOSE; Start 10/18/16 at 22:30 Glucagon (Glucagen) 1 mg Q15M PRN IM DECREASED GLUCOSE; Start 10/18/16 at 22:30 Glucose (Glutose) 15 gm Q15M PRN BUCCAL DECREASED GLUCOSE; Start 10/18/16 at 22 :30 JESSIE VANN MD Oct 19, 2016 11:03
[2016-10-19] MEDS ORDERED: THROMBIN 5000 UNIT VIAL ONE (11:21)
[2016-10-19] MEDS ORDERED: GELATIN SIZE 100 SPONGE ONE (11:21)
[2016-10-19] MEDS ORDERED: HEPARIN 1000 UNITS/ML 10 ML INJ ONE (11:21)
--- NOTE | 2016-10-19 11:24 | HPN ---
Date/Time of Note Date/Time of Note DATE: 10/19/16 TIME: 11:24 Interval H&P Admission Note Pt. seen H&P reviewed: No system changes CYNDI CARR MD Oct 19, 2016 11:24
[2016-10-19] MEDS: DEXTRAN-40 10%/D5W 500 ML, HEPARIN 1,000 UNIT, PAPAVERINE 120 MG IV SCH ×6 (11:30→17:44)
[2016-10-19] MEDS ORDERED: ROCURONIUM 50 MG INJ ONE (12:16)
[2016-10-19] MEDS ORDERED: PROPOFOL 20 ML ONE (12:16)
[2016-10-19] MEDS ORDERED: MIDAZOLAM 1 MG/ML 2 ML INJ ONE (12:17)
--- NOTE | 2016-10-19 12:21 | RADRPT ---
PROCEDURE: CT scan of the abdomen and pelvis with IV contrast. CT angiogram of the abdomen, pelvis and lower extremities. CLINICAL INDICATION: Gangrene. TECHNIQUE: Thin section axial, coronal and sagittal images were performed through the abdomen and pelvis without contrast and then following the injection of 100 cc of Isovue 370. Radiation Dose: CTDI: 6.2 and DLP: 841.96 One or more of the following dose reduction techniques were used: - Automated exposure control. - Adjustment of the mA and/or kV according to patient size. Use of iterative reconstruction technique. COMPARISON: No. FINDINGS: Soft tissues: Lungs and pleural spaces: There are bilateral pleural effusions. There is compressive atelectasis i n the periphery of the right left lower lobes. There is some plate-like atelectasis in the inferior lingula with fluid noted in the left major fissure. Some fluid in the right major fissure. Heart: The heart is normal in size. A pericardial effusion is noted. The liver, common bile duct and gallbladder: The gallbladder and gallbladder wall are normal. No he patic mass or intrahepatic biliary ductal dilatation is identified. The liver measures 14.8 cm 08:0 0 p.m. is normal. The hepatic and portal veins are patent. Gastrointestinal: The stomach is incompletely distended but normal in size. No gastric wall thicken ing is present. The small bowel loops have a normal caliber. There is a small umbilical hernia con taining fat. There is fecal material in the ascending and transverse colon. There is no evidence o f diverticulosis or diverticulitis. There are bilateral inguinal hernias containing fat. The left larger than the right. There is surgical skin ricarda over the left inguinal area with metal clips ventral to the left common femoral artery. Pancreas: Normal. Extrahepatic common bile duct measures 5.5 mm. Kidneys, bladder and adrenal glands : The adrenal glands are normal. There is stranding in the aggie nephric fat. There is no evidence of a solid mass or hydronephrosis involving either kidney. Urina ry bladder is normal. Spleen: Normal. Lymph nodes: Normal. Reproductive system and pelvis : The seminal vesicles are prominent. The prostate gland is normal i n size. Bony elements: Osteoarthritis of the thoracic spine, lumbar spine, both hips and both knees. There are osteolytic cystic areas in the distal left great toe which could be the result of osteomyelitis. Cone down views of the toe can be performed for detailed evaluation. Vasculature: There are vascular calcifications and soft plaquing in the lower thoracic and abdominal aorta. There is a low grade stenosis of the proximal celiac artery. Minimal transverse diameter of 5.6 mm. Normal diameter of 5.2 mm. There is a low grade stenosis with hard plaquing at the origin of the superior mesenteric artery. There is a healed blood supply to the left kidney. There is a moderate left renal artery stenosis of the more cephalad left renal artery and 1.5 cm fro m its origin. The minimal transverse luminal diameter of the vessel measures 1.7 mm. The more caudal left renal artery has a diameter of 3 mm. The proximal right renal artery measures 4.8 mm in diameter. Hard and soft plaquing is noted common iliac arteries and internal and external iliac arteries witho ut evidence of a significant stenosis. There is some plaquing in the right left common femoral naomie luz elena. Right lower extremity: There is a low grade stenosis of the distal right common femoral artery. There is a high-grade stenosis in the proximal third of the right superficial femoral artery. There is a high-grade segmental stenosis in the distal proximal third of the right superficial femor al artery with occlusion and thrombus. There is reconstitution with flow noted into the distal thir d of the right superficial femoral artery. There is a high-grade stenosis of the distal most portion of the right superficial femoral artery. The right popliteal artery is patent. There is a high-grade segmental stenosis of the distal right anterior tibial artery in the area of t he proximal right ankle. The right peroneal artery is patent. The mid right posterior tibial artery occluded. Left lower extremity: There are multiple segmental high-grade stenoses near the origin and distal to the origin of the pro ximal third of the left superficial femoral artery. There is thrombosis and occlusion of the distal proximal third superficial femoral artery. There is a segmental stenosis of the distal left popliteal artery. There are skin ricarda over the d orsal medial surface of the left knee. There is a segmental high-grade stenosis in the proximal quarter of the left peroneal artery. There is a high-grade segmental stenosis in the mid left peroneal artery. There is progressive attenuati on with a long segment stenosis involving the distal left peroneal artery. The vessel occludes ensue d approaches the mid left ankle. There are multiple segmental high-grade stenoses there is a near occlusion involving the left machine room engineer ior tibial artery. There are small regional there is reconstitution with some blood flow noted into the plantar arteries. . There are multiple segmental high-grade stenosis along the distal half of the left anterior tibial a rtery. There are additional high-grade segmental stenoses with near occlusion in the middle third o f the left anterior tibial artery. There is at least 1 high-grade segmental stenosis in the proxima l quarter of the left anterior tibial artery. The distal left anterior tibial artery is occluded near the level of the ankle mortise. There are s urgical clips in the subcutaneous tissues over the medial aspect of the distal tibia. There is ulce ration over the medial left ankle. There is soft tissue swelling in the area suspicious for celluli tis or postsurgical change. There are small collections of subcutaneous air adjacent to the ricarda . There is ulceration of the left great toe with radiolucent areas in the distal left first phalanx. Findings are suspicious for cellulitis and osteomyelitis involving the distal left first phalanx. C one down views of the left great toe may be helpful in confirmation. There is a millimeter bone cyst in the ventral proximal left tibia. There are osteoarthritic degene rative changes in the left knee. IMPRESSION: 1. There is a dual blood supply to the left kidney with a moderate suspected proximally 1.5 cm from the origin of the more caudal left renal artery with a minimal diameter of 1.7 mm versus a normal d iameter of about 3.8 mm. 2. There are high-grade see segmental stenoses in the proximal and distal portions of the proximal third of the right superficial femoral artery. 3. There are multiple intermittent segmental high-grade stenosis of the proximal left superficial fe moral artery. There is a occlusion/thrombosis involving the distal portion of the proximal third of the left superficial femoral artery. 4. Occlusion of the mid right posterior tibial artery with no distal runoff beyond this point. 5. High-grade segmental stenosis distal right anterior tibial artery at the level of the right ankl e. 6. Ulceration with an open wound adjacent to skin ricarda over the medial aspect of the proximal an d distal left ankle with diffuse soft tissue swelling suspicious for cellulitis. No radiographic ev idence of osteomyelitis. 7. There are multiple lucencies in the distal phalanx of the left great toe. There is ulceration i n the area of the distal left great toe. Findings are suspicious for cellulitis with osteomyelitis. 8. Progressive attenuation and long segment stenosis involving the distal left peroneal artery with eventual occlusion of the distal left peroneal artery at the level of the ankle. 9. High-grade stenosis of the distal left popliteal artery. 10. Skin ricarda over the medial surface of the left knee. 11. Multiple high-grade segmental stenoses along the course of the distal left posterior tibial art elliott. 12. Cellulitis and soft tissue swelling of the left calf. 13. See text for findings related to the intra-abdominal organs of the CT abdomen pelvis. RPTAT:AAJJ NASCET = 100 X (D-N)/ D N = GREATEST NARROWING D = NORMAL DISTAL DIAMETER MILD = LESS THAN 50% NARROWING MODERATE = 50-60% STENOSIS SEVERE = 70-89% STENOSIS OCCLUDED = 100% STENOSIS Physician Karoline Date Time Electronically viewed and signed by Mark Lozada Physician on 10/19/2016 12:20 MARU/
[2016-10-19] MEDS ORDERED: IOHEXOL 300MG/ML 30 ML BTL ONE (12:38)
[2016-10-19] MEDS ORDERED: PHENYLephrine (100 MCG/ML) 5ML SYG ONE ×2 (12:42→13:49)
[2016-10-19] MEDS ORDERED: THROMBIN 5000 UNIT VIAL TOP ONE (13:23)
[2016-10-19] MEDS ORDERED: POLYMYXIN/BACITRACIN 1L IRRIG IRR ONE (13:27)
--- NOTE | 2016-10-19 13:56 | RADRPT ---
PROCEDURE: US Lower extremity arterial. CLINICAL INDICATION: Leg pain, gangrene TECHNIQUE: Multiple sonographic images of left lower extremity arteries were obtained utilizing gr ayscale, color-flow and doppler imaging. The images were reviewed on a PACS workstation. COMPARISON: 10/18/2016, 10/19/2016 FINDINGS: There is calcific plaque. Velocities and waveforms were obtained as described below. LEFT LEG: Left common femoral artery: 151 cm/s; monophasic waveforms Left proximal graft the groin: 36 cm/s; monophasic waveforms Left graft in the upper thigh: 46 cm/s; monophasic waveforms Left graft in the mid thigh: 170 cm/s; monophasic waveforms Left graft in the distal thigh: 38 cm/s; monophasic waveforms Left graft at the knee: 53 cm/s; monophasic waveforms Left graft in the upper calf: 60 cm/s; monophasic waveforms Occluded graft in the midcalf and distal calf. Left posterior tibial artery below the graft: 16 cm/s; monophasic waveforms RPTAT: AA IMPRESSION: Occluded distal aspect of the left leg bypass graft in the region of the mid calf and distal calf. Possible stenosis in the graft in the mid thigh with focally increased velocity. .Jay Faust MD, MD Date Time Electronically viewed and signed by .Jay Faust MD, on 10/19/2016 13:56 .S/
[2016-10-19] MEDS ORDERED: morphine (1 MG/ML) 10ML SYRINGE IV PRN ×3 (16:00)
[2016-10-19] MEDS ORDERED: HYDROmorphONE (0.2 MG/ML) 10ML SYG IV PRN ×3 (16:00)
[2016-10-19] MEDS ORDERED: LABETALOL HCL 20MG INJ IV PRN ×2 (16:00→18:00)
[2016-10-19] MEDS ORDERED: EPHEDrine SULFATE 50 MG/5 ML SYG IV PRN ×2 (16:00→18:00)
[2016-10-19] MEDS ORDERED: ONDANSETRON 4 MG INJ IV PRN ×2 (16:00→18:00)
[2016-10-19] MEDS ORDERED: hydrALAzine 20 MG INJ IV PRN ×2 (16:00→18:00)
[2016-10-19] MEDS ORDERED: MEPERIDINE 25 MG INJ IV PRN ×2 (16:00→18:00)
[2016-10-19] MEDS ORDERED: DIPHENHYDRAMINE 50 MG INJ IV PRN ×2 (16:00→18:00)
[2016-10-19 16:01] LABS: Arterial Base Excess -0.3 mmol/L (-3.0-3); Arterial COHb 0.3 % (0.0-3.0); Arterial Fraction of Oxyhgb 99.2 % (93.0-99.0); Arterial HCO3 23.2 mmol/L (22.0-26.0); Arterial MetHb 0.1 % (0.0-1.5); Arterial Total Hemglobin 10.4 g/dl (12.0-18.0); Blood Gas Low PEEP Setting 0 cmH2O; MODE VENT - AC
--- NOTE | 2016-10-19 16:17 | PN ---
Date/Time of Note Date/Time of Note DATE: 10/19/16 TIME: 16:10 Assessment/Plan VTE Prophylaxis VTE Prophylaxis Intervention: contraindicated (Bleeding risk) Lines/Catheters IV [facility] Urinary Cath still in place: No Assessment/Plan Chief Complaint/Hosp Course Subjective: Events noted. Patient in surgery. Objective: Vital signs stable PE: Deferred, patient in surgery A/P: 1. Lt lower ext ~dry gangrene w PAD. sp angiogram and bypass eval. Consider asa / Plavix/risk factor modification. Stable treat pain. -Pending amputation of his toes. Cardiac perioperative eval process. Hold Lovenox for potential amputation. 2. End-stage renal disease. Continue dialysis 3. Hypertension/diabetes/metabolic syndrome. 4. Anemia. 5. Past tobacco. 6. Additionally, rt lwr ext dry gangrene. 7. Possible past alcoholism. 8. Pneumonia vs atelectasis. 9. Possible cad 10. PAD 11. Diabetes 12. Cellulitis/DFI, appreciate ID eval Problems: Exam/Review of Systems Vital Signs Vitals Vital Signs Date Time Temp Pulse Resp B/P Pulse Ox O2 Delivery O2 Flow Rate FiO2 10/19/16 08:02 97.7 79 19 137/65 10/18/16 19:10 94 Intake and Output 10/18/16 10/18/16 10/19/16 15:00 23:00 07:00 Intake Total 865 ml Output Total 2500 ml Balance -1635 ml Results Result Diagram: 10/19/16 0545 10/19/16 0545 Results 24 hrs Laboratory Tests Test 10/18/16 22:49 10/19/16 00:35 10/19/16 03:12 10/19/16 05:45 Bedside Glucose 187 137 Creatine Kinase 20 L 25 Creatine Kinase Index 4.8 3.6 Creatinine Kinase MB (Mass) 0.96 0.90 Troponin I 0.085 0.085 Alanine Aminotransferase (ALT/SGPT) 20 Albumin 3.3 Albumin/Globulin Ratio 0.84 Alkaline Phosphatase 180 H Anion Gap 23 H Aspartate Amino Transf (AST/SGOT) 57 #H Basophils # 0.0 Basophils % 0.3 Blood Urea Nitrogen 69 H Calcium Level 8.6 Carbon Dioxide Level 22 Chloride Level 100 Cholesterol Level 143 Cholesterol/HDL Ratio 3.6 Creatinine 8.81 H Direct Bilirubin 0.00 Eosinophils # 0.3 Eosinophils % 2.3 Globulin 3.90 H Glucose Level 105 # HDL Cholesterol 39 Hematocrit 29.4 L Hemoglobin 9.0 L Hemoglobin A1c 5.4 Indirect Bilirubin 0.0 LDL Cholesterol, Calculated 85 Lymphocytes # 2.1 Lymphocytes % 18.8 Magnesium Level 2.8 H Mean Corpuscular Hemoglobin 31.9 Mean Corpuscular Hemoglobin Concent 30.6 L Mean Corpuscular Volume 104.3 H Mean Platelet Volume 11.4 H Monocytes # 1.1 H Monocytes % 10.1 Neutrophils # 7.6 H Neutrophils % 68.1 Nucleated Red Blood Cells # 0.0 Nucleated Red Blood Cells % 0.0 Phosphorus Level 3.2 Platelet Count 482 H Potassium Level 4.7 Red Blood Count 2.82 L Red Cell Distribution Width 18.1 H Sodium Level 140 Thyroid Stimulating Hormone (TSH) 1.220 Total Bilirubin 0.0 L Total Protein 7.2 Triglycerides Level 97 White Blood Count 11.1 H Test 10/19/16 08:21 10/19/16 15:45 Bedside Glucose 128 Arterial Blood HCO3 23.2 Arterial Blood Base Excess -0.3 Arterial Blood Oxygen Saturation 99.6 H Fredrick Test N/A Arterial Blood Gas Puncture Site A-Line Arterial Blood Carboxyhemoglobin 0.3 Arterial Blood Date Drawn 10/19/2016 3:40:08 PM Arterial Blood Methemoglobin 0.1 Arterial Blood pCO2 (Temp correct) 33.5 L Arterial Blood pH (Temp corrected) 7.458 H Arterial Blood pO2 (Temp corrected) 357.5 H Blood Gas A-a O2 Differential 322.0 H Blood Gas Low PEEP Setting 0 Blood Gas Modality VENT - AC Blood Gas Notified Time 10/19/2016 4:01:19 PM Blood Gas Notified Whom DTAYLOR Blood Gas Respiration Rate 8.0 Blood Gas Specimen Source Blood arterial Blood Gas Temperature 37.0 Blood Gas Tidal Volume 600.0 FiO2 100.0 Oxyhemoglobin Percent 99.2 H Total Hemoglobin 10.4 L Medications Medications Current Medications Metoprolol Tartrate (Lopressor) 25 mg BID PO Last administered on 10/18/16t 19: 36; Admin Dose 25 MG; Start 10/18/16 at 19:21 Amlodipine Besylate (Norvasc) 10 mg DAILY PO ; Start 10/19/16 at 09:00 Hydralazine HCl 10 mg 10 mg Q4H PRN IV SBP>150 mm Hg Last administered on 10/18 20:35; Admin Dose 10 MG; Start 10/18/16 at 20:00 Sodium Chloride (NS) 1,000 ml @ 50 mls/hr Q20H IV Last administered on 22:26; Admin Dose 50 MLS/HR; Start 10/18/16 at 22:30 Albuterol (Ventolin Hfa) 2 puff Q8 INH ; Start 10/18/16 at 22:30 Famotidine (Pepcid) 20 mg DAILY PO ; Start 10/19/16 at 09:00 Insulin Glargine 7 unit 7 unit DAILY@20 SC Last administered on 10/18/16 23:48 ; Admin Dose 7 UNIT; Start 10/18/16 at 22:30 Ceftriaxone Sodium (Rocephin) 50 ml @ 100 mls/hr Q24H IVPB Last administered on 10/18/16 22:50; Admin Dose 100 MLS/HR; Start 10/18/16 at 22:30 Ondansetron HCl (Zofran Inj) 4 mg Q6H PRN IV NAUSEA AND/OR VOMITING; Start at 22:30 Acetaminophen (Tylenol Tab) 650 mg Q6H PRN PO PAIN LEVEL 1-3 OR FEVER; Start at 22:30 Morphine Sulfate (morphine) 2 mg Q4H PRN IV SEVERE PAIN LEVEL 7-10 Last administered on 10/19/16 09:11; Admin Dose 2 MG; Start 10/18/16 at 22:30 Docusate Sodium (Colace) 100 mg Q12H PRN PO CONSTIPATION; Start 10/18/16 at 22: 30 Bisacodyl (Dulcolax Supp) 10 mg DAILY PRN RI CONSTIPATION; Start 10/18/16 at 22 :30 Diagnostic Test (Pha) (Accucheck) 1 ea 02 XX Last administered on 10/19/16 03: 13; Admin Dose 1 EA; Start 10/19/16 at 02:00 Acetaminophen/ Hydrocodone Bitart ([place] (10/325)) 1 tab Q4H PRN PO PAIN LEVEL 6-10; Start 10/18/16 at 22:30 Miscellaneous Information 1 ea NOTE XX ; Start 10/18/16 at 22:30 Glucose (Glutose) 15 gm Q15M PRN PO DECREASED GLUCOSE; Start 10/18/16 at 22:30 Glucose (Glutose) 22.5 gm Q15M PRN PO DECREASED GLUCOSE; Start 10/18/16 at 22: 30 Dextrose (D50w Syringe) 25 ml Q15M PRN IV DECREASED GLUCOSE; Start 10/18/16 at 22:30 Dextrose (D50w Syringe) 50 ml Q15M PRN IV DECREASED GLUCOSE; Start 10/18/16 at 22:30 Glucagon (Glucagen) 1 mg Q15M PRN IM DECREASED GLUCOSE; Start 10/18/16 at 22:30 Glucose 15 gm Q15M PRN BUCCAL DECREASED GLUCOSE; Start 10/18/16 at 22:30 Dextran/Dextrose/ Heparin Sodium (Porcine)/ Papaverine HCl (Lmd 10% With 5% Dext Soln/Heparin (1000 Units/ml)/ Papaverine) INTRA-OP IV ; Start 10/19/16 at 11:30 CAL FLORES MD Oct 19, 2016 16:17
[2016-10-19] MEDS ORDERED: DEXAMETHASONE 4 MG/ML 1 ML INJ ONE (16:48)
[2016-10-19] MEDS ORDERED: METOCLOPRAMIDE 10 MG INJ ONE (16:48)
[2016-10-19] MEDS ORDERED: ONDANSETRON 4 MG INJ ONE (16:48)
[2016-10-19] MEDS ORDERED: CEFAZOLIN 1 GM INJ ONE (16:48)
--- NOTE | 2016-10-19 16:48 | CONS ---
Date/Time of Note Date/Time of Note DATE: 10/19/16 TIME: 16:46 Assessment/Plan Assessment/Plan Additional Assessment/Plan 1. Lower extremity gangrene secondary to severe occlusive peripheral arterial disease. 2. Severe stenosis of the right distal superficial femoral artery and occluded right posterior tibial artery. 3. End-stage renal disease on hemodialysis Tuesday, , Tuesday. 4. Accelerated hypertension. 5. Hyperlipidemia. 6. History of hypertension with peripheral arterial disease. 7. History of peripheral arterial disease status post left lower extremity bypass in September 2016. PLAN: angiogram planned per vascular surgery will continue HD tuesday, and Tuesday will follow up Consultation Date/Type/Reason Admit Date/Time Oct 18, 2016 at 16:52 Initial Consult Date 10/17/2016 Type of Consultation: NEPHROLOGY Reason for Consultation ESRD on HD< Referring Provider: OZZIE HERRERA MD 24 HR Interval Summary Free Text/Dictation doing ok, BP stable,afebrile, s/p HD today plan for LE angiogram Exam/Review of Systems Vital Signs Vitals Vital Signs Date Time Temp Pulse Resp B/P Pulse Ox O2 Delivery O2 Flow Rate FiO2 10/19/16 08:02 97.7 79 19 137/65 10/18/16 19:10 94 Intake and Output 10/18/16 10/18/16 10/19/16 15:00 23:00 07:00 Intake Total 865 ml Output Total 2500 ml Balance -1635 ml Exam GENERAL: Awake, alert, in moderate distress due to the elevated blood pressure and the pain. HEENT: Normal. Oropharynx clear. NECK: Supple, no JVD. LUNGS: Clear to auscultation. No crackles, no wheezes. HEART: S1, S2, with regular rhythm, no murmur. ABDOMEN: Soft, nontender, nondistended. Bowel sounds are present. EXTREMITIES: The patient has lower extremity gangrene. No cyanosis. Right upper chest tunneled hemodialysis catheter. NEUROLOGICAL: Alert, oriented x4. Cranial nerves II-XII intact. No focal deficits. PSYCHIATRIC: Appropriate affect and mood. Results Result Diagram: 10/19/16 0545 10/19/16 0545 Results 24 hrs Laboratory Tests Test 10/18/16 22:49 10/19/16 00:35 10/19/16 03:12 10/19/16 05:45 Bedside Glucose 187 137 Creatine Kinase 20 L 25 Creatine Kinase Index 4.8 3.6 Creatinine Kinase MB (Mass) 0.96 0.90 Troponin I 0.085 0.085 Alanine Aminotransferase (ALT/SGPT) 20 Albumin 3.3 Albumin/Globulin Ratio 0.84 Alkaline Phosphatase 180 H Anion Gap 23 H Aspartate Amino Transf (AST/SGOT) 57 #H Basophils # 0.0 Basophils % 0.3 Blood Urea Nitrogen 69 H Calcium Level 8.6 Carbon Dioxide Level 22 Chloride Level 100 Cholesterol Level 143 Cholesterol/HDL Ratio 3.6 Creatinine 8.81 H Direct Bilirubin 0.00 Eosinophils # 0.3 Eosinophils % 2.3 Globulin 3.90 H Glucose Level 105 # HDL Cholesterol 39 Hematocrit 29.4 L Hemoglobin 9.0 L Hemoglobin A1c 5.4 Indirect Bilirubin 0.0 LDL Cholesterol, Calculated 85 Lymphocytes # 2.1 Lymphocytes % 18.8 Magnesium Level 2.8 H Mean Corpuscular Hemoglobin 31.9 Mean Corpuscular Hemoglobin Concent 30.6 L Mean Corpuscular Volume 104.3 H Mean Platelet Volume 11.4 H Monocytes # 1.1 H Monocytes % 10.1 Neutrophils # 7.6 H Neutrophils % 68.1 Nucleated Red Blood Cells # 0.0 Nucleated Red Blood Cells % 0.0 Phosphorus Level 3.2 Platelet Count 482 H Potassium Level 4.7 Red Blood Count 2.82 L Red Cell Distribution Width 18.1 H Sodium Level 140 Thyroid Stimulating Hormone (TSH) 1.220 Total Bilirubin 0.0 L Total Protein 7.2 Triglycerides Level 97 White Blood Count 11.1 H Test 10/19/16 08:21 10/19/16 15:45 Bedside Glucose 128 Arterial Blood HCO3 23.2 Arterial Blood Base Excess -0.3 Arterial Blood Oxygen Saturation 99.6 H Fredrick Test N/A Arterial Blood Gas Puncture Site A-Line Arterial Blood Carboxyhemoglobin 0.3 Arterial Blood Date Drawn 10/19/2016 3:40:08 PM Arterial Blood Methemoglobin 0.1 Arterial Blood pCO2 (Temp correct) 33.5 L Arterial Blood pH (Temp corrected) 7.458 H Arterial Blood pO2 (Temp corrected) 357.5 H Blood Gas A-a O2 Differential 322.0 H Blood Gas Low PEEP Setting 0 Blood Gas Modality VENT - AC Blood Gas Notified Time 10/19/2016 4:01:19 PM Blood Gas Notified Whom DTAYLOR Blood Gas Respiration Rate 8.0 Blood Gas Specimen Source Blood arterial Blood Gas Temperature 37.0 Blood Gas Tidal Volume 600.0 FiO2 100.0 Oxyhemoglobin Percent 99.2 H Total Hemoglobin 10.4 L Medications Medications Current Medications Metoprolol Tartrate (Lopressor) 25 mg BID PO Last administered on 10/18/16 19: 36; Admin Dose 25 MG; Start 10/18/16 at 19:21 Amlodipine Besylate (Norvasc) 10 mg DAILY PO ; Start 10/19/16 at 09:00 Hydralazine HCl 10 mg 10 mg Q4H PRN IV SBP>150 mm Hg Last administered on 10/18 20:35; Admin Dose 10 MG; Start 10/18/16 at 20:00 Sodium Chloride (NS) 1,000 ml @ 50 mls/hr Q20H IV Last administered on 22:26; Admin Dose 50 MLS/HR; Start 10/18/16 at 22:30 Albuterol (Ventolin Hfa) 2 puff Q8 INH ; Start 10/18/16 at 22:30 Famotidine (Pepcid) 20 mg DAILY PO ; Start 10/19/16 at 09:00 Insulin Glargine 7 unit 7 unit DAILY@20 SC Last administered on 10/18/16 23:48 ; Admin Dose 7 UNIT; Start 10/18/16 at 22:30 Ceftriaxone Sodium (Rocephin) 50 ml @ 100 mls/hr Q24H IVPB Last administered on 10/18/16 22:50; Admin Dose 100 MLS/HR; Start 10/18/16 at 22:30 Ondansetron HCl (Zofran Inj) 4 mg Q6H PRN IV NAUSEA AND/OR VOMITING; Start at 22:30 Acetaminophen (Tylenol Tab) 650 mg Q6H PRN PO PAIN LEVEL 1-3 OR FEVER; Start at 22:30 Morphine Sulfate (morphine) 2 mg Q4H PRN IV SEVERE PAIN LEVEL 7-10 Last administered on 10/19/16 09:11; Admin Dose 2 MG; Start 10/18/16 at 22:30 Docusate Sodium (Colace) 100 mg Q12H PRN PO CONSTIPATION; Start 10/18/16 at 22: 30 Bisacodyl (Dulcolax Supp) 10 mg DAILY PRN IN CONSTIPATION; Start 10/18/16 at 22 :30 Diagnostic Test (Pha) (Accucheck) 1 ea 02 XX Last administered on 10/19/16t 03: 13; Admin Dose 1 EA; Start 10/19/16 at 02:00 Acetaminophen/ Hydrocodone Bitart ([place] (10325)) 1 tab Q4H PRN PO PAIN LEVEL 6-10; Start 10/18/16 at 22:30 Miscellaneous Information 1 ea NOTE XX ; Start 10/18/16 at 22:30 Glucose (Glutose) 15 gm Q15M PRN PO DECREASED GLUCOSE; Start 10/18/16 at 22:30 Glucose (Glutose) 22.5 gm Q15M PRN PO DECREASED GLUCOSE; Start 10/18/16 at 22: 30 Dextrose (D50w Syringe) 25 ml Q15M PRN IV DECREASED GLUCOSE; Start 10/18/16 at 22:30 Dextrose (D50w Syringe) 50 ml Q15M PRN IV DECREASED GLUCOSE; Start 10/18/16 at 22:30 Glucagon (Glucagen) 1 mg Q15M PRN IM DECREASED GLUCOSE; Start 10/18/16 at 22:30 Glucose 15 gm Q15M PRN BUCCAL DECREASED GLUCOSE; Start 10/18/16 at 22:30 Dextran/Dextrose/ Heparin Sodium (Porcine)/ Papaverine HCl (Lmd 10% With 5% Dext Soln/Heparin (1000 Units/ml)/ Papaverine) INTRA-OP IV ; Start 10/19/16 at 11:30 ILSA MERRITT MD Oct 19, 2016 16:48
--- NOTE | 2016-10-19 16:59 | RADRPT ---
Vent Rate: 77 bpm RR Interval: 0 msec IN Interval: 150 msec QRS Duration: 102 msec QT Interval: 426 msec QTC Interval: 482 msec P-R-T Davey: 44 - -61 - 90 degrees Normal sinus rhythm Left anterior fascicular block Left ventricular hypertrophy with repolarization abnormality Cannot rule out Septal infarct , age undetermined Abnormal ECG Electronically Signed By: Javan Bloom [id number]
[2016-10-19] MEDS ORDERED: GLYCOPYRROLATE 0.4 MG INJ ONE (17:01)
[2016-10-19] MEDS ORDERED: NEOSTIGMINE 3 MG/3 ML SYRINGE ONE (17:01)
--- NOTE | 2016-10-19 17:07 | RADRPT ---
PROCEDURE: Intraoperative imaging of the left ankle. CLINICAL INDICATION: Left ankle pain. Revascularization. Intraoperative. TECHNIQUE: A single lateral image of the left distal tibia / fibula, and left ankle region was obt ained in the operating room. No radiologist was in attendance. COMPARISON: No prior study is available for comparison. FINDINGS: The image demonstrates contrast in the arterial system of the left lower extremity with a graft exte nding to the posterior tibial artery. IMPRESSION: 1. Intraoperative imaging of the left ankle. RPTAT: QQ .Rick Tomlin MD, MD Date Time Electronically viewed and signed by .Rick Tomlin MD, MD on 10/19/2016 17:07 .R/
[2016-10-19] MEDS ORDERED: HYDROmorphONE 1 MG/ML SYG IV PRN ×3 (18:00)
[2016-10-19] MEDS ORDERED: morphine 4 MG/ML VIAL IV PRN (18:00)
[2016-10-19] MEDS ORDERED: morphine 2 MG INJ IV PRN (18:00)
[2016-10-19] MEDS ORDERED: LORAZEPAM 2 MG INJ IV PRN (18:00)
[2016-10-19] MEDS ORDERED: morphine 10 MG INJ IV PRN (18:00)
[2016-10-19] MEDS: SOD CHLORIDE 0.9% 1,000 ML IV SCH (18:30)
[2016-10-19 19:36] LABS: TROPONIN-I 0.054 ng/ml (0.00-0.12)
[2016-10-19 19:46] LABS: CK-MB 0.67 ng/ml (0.0-2.4)
[2016-10-19] MEDS: INSULIN GLARGINE [LANtus] 3 ML PEN SC SCH (21:01)
[2016-10-19] MEDS: CEFTRIAXONE 1 GM/50 ML (PMX) 50 ML IVPB SCH (22:54)
[2016-10-20] VITALS (22 sets, daily range): BP systolic 114–154; BP diastolic 45–64; PULSE 65–75; RESP 12–18
[2016-10-20] MEDS: ACCU-CHEK XX SCH (00:38)
--- NOTE | 2016-10-20 01:10 | OPR ---
DATE OF OPERATION: 10/19/2016 SURGEON: Cyndi Quintero MD PREOPERATIVE DIAGNOSES: 1. Bilateral lower extremity gangrene. 2. Left lower extremity rest pain. POSTOPERATIVE DIAGNOSES: 1. Left lower extremity gangrene. 2. Thrombosis of the distal femoral to distal posterior tibial in situ bypass. OPERATION PERFORMED: 1. Exploration of the distal posterior tibial artery and plantar artery. 2. Thrombectomy of the femoral to posterior tibial in situ bypass vein graft. 3. Exploration of the above-knee popliteal graft. 4. Interposition bypass graft from popliteal graft to distal posterior tibial artery using a xenogr aft, model number [id number], 6 mm x 44 cm. 5. Creation of a myocutaneous rotational flap in the distal aspect of the lower leg to cover the gr aft. 6. Excisional debridement of the left lower extremity near the medial malleolus measuring 6 x 3 x 1 cm. 7. Application of xenograft MicroMatrix powder, 1.2 grams. 8. Application of 10 x 15 cm 2-layer sheet xenograft. 9. Application of KCI wound VAC to the right lower leg set at 125 mmHg, high intensity, continuous. ANESTHESIA: General endotracheal intubation. COMPLICATIONS: None. ESTIMATED BLOOD LOSS: 450 mL. TRANSFUSIONS: 2 units of packed red blood cell. URINE OUTPUT: The patient is on hemodialysis. SPECIMEN: None. INDICATIONS: This is a 65-year-old gentleman who presented with history of left lower extremity annamarie grene, in which he underwent revascularization for limb salvage procedure. The patient underwent il iofemoral endarterectomy with bovine patch angioplasty and a common femoral artery to distal posteri or tibial artery in situ bypass. During his procedure, patient had a moderately thickened vein that had significant spasm during his procedure. He presented to our office a week after having a worse erika rest pain. It was identified that the patient did not have any flow from the mid calf down; th erefore, was admitted to the hospital for evaluation and for immediate surgical intervention. Upon noninvasive vascular ultrasound, it was identified the patient still had flow through in situ bypass to the upper mid calf. He was informed of the findings and the need of immediate surgical interven tion. Risk and benefits of the procedure were discussed with the patient not limited to , LA a nd pneumonia, stroke, bleeding, infection, thrombosis of the graft, revision of bypass, nerve injury , limb loss, nephrotoxicity, possible revisions, and thrombectomy and he elected to undergo surgical intervention. DESCRIPTION OF PROCEDURE: The patient was brought into the operating room table, placed in supine p osition. Arms were placed to at 80 degrees. The bony prominences were padded. Anesthesia team had placed appropriate lines and general anesthesia was induced. The patient tolerated anesthesia well . Arterial line was placed under sterile conditions with anesthesia colleagues. A timeout and the primary site was marked and confirmed. The patient's left lower extremity and lower abdomen were pr epped and draped in usual standard sterile fashion. The patient's right lower leg was also prepped and draped in the usual standard sterile fashion for possible vein harvesting. Preoperative antibio tics were administered prior to skin incision. We started with removing his skin ricarda from his midline incision starting from the medial malleol ar site all the way up to the above knee area. At this point, exploration of the posterior tibial a rtery was performed where the vein bypass had dove into the posterior compartment. It was identifie d that the vein was thrombosed and there was still monophasic flow through the posterior tibial naomie ry into plantar artery. At this point, the vein bypass was followed proximally towards the above kn ee and it was identified the patient still had flow to the at-knee pop segments. It was determined to explore the small saphenous vein for possible conduit. An incision was made in the posterior dione f and evaluation of the small saphenous vein was performed. It was identified the small saphenous v ein was a thickened wall and seems to be fibrosed and not amenable for conduit. At this point, it w as determined to go ahead and use an arteriograph for a conducting of a composite graft bypass. The refore, the vein was ligated at the level of the below knee pop and no flow was identified. Using 2 -Jamaican and then a 3-[place] Jay thrombectomy catheters respectively were used and thrombectomy w as performed. Flow was then identified that was pulsatile within the vein. At this point, our vasc ular bypass solution was administered through the vein bypass and the Yasargil clamps were placed at the distal end of the venotomy. Once this was completed, we went ahead and excised the graft at th e posterior tibial artery anastomosis. The artery was irrigated with heparinized saline solution an d evaluated for flow. It was identified the patient had monophasic flow through collateralization. At this point, the Yasargil clamps were placed proximal and distally on the posterior tibial artery and we went ahead and, using the grafts, we went ahead and spatulated and performed our anastomosis using a running 6-0 Prolene suture. Prior to completion of our anastomosis, back bleeding, forward bleeding was performed and a clamp was placed at the proximal aspect of the graft. The Yasargil cl amps were removed and mandaen of blood flow to the foot was established. At this point, we went ahead and tunneled the graft, right above the fascia in order to make sure that we would be able to perform our wound closure. There was significant tissue necrosis of the distal aspect of the lower leg, in which we will not be able to close the skin after debriding it and it would require wound V AC and ACell graft application. We, therefore, tunneled the graft right above the fascia and the gr aft was able to reach above knee medial aspect of our vein graft. At this point, our vein was ident ified to an area where it seemed to be less thickened and good pulsation was identified. Distal and proximal Yasargil clamps were placed and the venotomy was performed. At this point, using a 5-0 Pr olene suture, anastomosis was performed. Prior to our completion, forward bleeding was performed an d anastomosis was complete. Blood flow was then reestablished through the graft, which was pulsatil e, and our posterior tibial signal was checked with Doppler, which was biphasic. At this point, we went ahead and placed vascular clips on the distal aspect of the original vein bypass. Our new bypa ss is performed in a composite manner. At this point, we performed an angiogram to evaluate the flow through the graft into the foot. An a dequate flow was identified. Subsequently, we performed sharp excisional debridement of all the are as of the necrotic tissue in the distal aspect of the leg, which involved skin, subcutaneous tissue, and some muscle. The rest of the skin wound edges were also debrided as well in the proximal aspec t of the calf. Once this was completed, there was a significant defect and the distal aspect of the wound in the lower leg would not close. Therefore, we went ahead and performed a rotational flap w ith transecting part of the anterior tibial muscle to cover the area over the graft. Once this was accomplished, we went ahead and tacked the muscle with 3-0 Vicryl suture. Once that was completed, we went ahead and performed application of ACell MicroMatrix, about 1.2 grams, and applied the 2-she et layered 10 x 15 cm xenograft. Once this was completed, we went ahead and placed a wound VAC KCI system for negative pressure and our subcutaneous tissues were closed with 3-0 Vicryl sutures in int errupted fashion. This enabled us to provide a closure of a layer over the graft. Next, we went ah ead and placed interrupted 3-0 nylon sutures in a mattress fashion. Skin ricarda were applied for t he skin. Doppler signals were checked again and dependent signal was identified for the posterior t ibial and plantar artery. The patient tolerated procedure well and was taken to the postanesthesia care unit in stable condition. All instruments, sponges, needles, catheters were correct x2. Dictated By: CYNDI GARCIA/SIN Conf#: [id number] DID#: [id number] CC: OZZIE HERRERA MD;*EndCC*
[2016-10-20] MEDS: HYDROCODONE/APAP (10/325) TAB PO PRN ×4 (02:36→18:57)
[2016-10-20] MEDS: morphine 2 MG INJ IV PRN (03:49)
[2016-10-20] MEDS: ALBUTEROL HFA 8 GM INHALER INH SCH ×3 (06:00→21:32)
[2016-10-20 06:27] LABS: ADD SCAN DIFF NO
[2016-10-20 06:41] LABS: BASOPHILS % 0.1 % (0.0-2.0); HEMATOCRIT 28.2 % (42.0-52.0); HEMOGLOBIN 8.8 g/dl (14.0-18.0); LYMPHOCYTES # 1.3 10^3/ul (0.8-2.9); LYMPHOCYTES % 10.7 % (15.0-51.0); MEAN CORPUSCULAR HEMOGLOBIN 31.3 pg (29.0-33.0); MEAN CORPUSCULAR HGB CONC 31.2 g/dl (32.0-37.0); MEAN CORPUSCULAR VOLUME 100.4 fl (82.0-101.0); MEAN PLATELET VOLUME 11.1 fl (7.4-10.4); MONOCYTE # 1.1 10^3/ul (0.3-0.9); MONOCYTES % 8.7 % (0.0-11.0); NEUTROPHIL # 9.9 10^3/ul (1.6-7.5); NEUTROPHILS % 80.2 % (39.0-77.0); PLATELET COUNT 360 10^3/UL (140-415); RED BLOOD COUNT 2.81 10^6/ul (4.70-6.10); RED CELL DISTRIBUTION WIDTH 18.1 % (11.5-14.5); WHITE BLOOD COUNT 12.3 10^3/ul (4.8-10.8)
[2016-10-20 07:04] LABS: IRON 25 ug/dl (35-150)
[2016-10-20 07:13] LABS: TOTAL IRON BINDING CAPACITY 175 ug/dl (241-421)
[2016-10-20 07:15] LABS: POTASSIUM 4.9 mmol/L (3.5-5.1)
[2016-10-20 07:17] LABS: CREATININE 6.63 mg/dl (0.61-1.24)
[2016-10-20 07:18] LABS: CALCIUM 7.8 mg/dl (8.4-10.2); MAGNESIUM 2.2 mg/dl (1.7-2.5); PHOSPHORUS 4.4 mg/dl (2.5-4.9)
[2016-10-20] MEDS: INSULIN ASPART [NOVOLOG] 3 ML PEN SC SCH ×4 (07:35→21:00)
[2016-10-20] MEDS ORDERED: HEPARIN 1000 UNITS/ML 10 ML INJ IV ONE (08:00)
--- NOTE | 2016-10-20 09:09 | CONS ---
Date/Time of Note Date/Time of Note DATE: 10/20/16 TIME: 09:07 Assessment/Plan Assessment/Plan Additional Assessment/Plan 1. Lower extremity gangrene secondary to severe occlusive peripheral arterial disease. 2. Severe stenosis of the right distal superficial femoral artery and occluded right posterior tibial artery. 3. End-stage renal disease on hemodialysis Tuesday, , Tuesday. 4. Accelerated hypertension. 5. Hyperlipidemia. 6. History of hypertension with peripheral arterial disease. 7. History of peripheral arterial disease status post left lower extremity bypass in September 2016. PLAN: s/p LE angiogram with thrombectomy, S/p HD yesterday, currently no pulse in LE - possible plan for OR today again will continue HD tuesday, and Tuesday, next HD ordered for tomorrow will follow up Consultation Date/Type/Reason Admit Date/Time Oct 18, 2016 at 16:52 Initial Consult Date 10/19/2016 Type of Consultation: NEPHROLOGY Reason for Consultation ESRD on HD with LE gangrene Referring Provider: OZZIE HERRERA MD 24 HR Interval Summary Free Text/Dictation s/p LE angiogram with thrombectomy, S/p HD yesterday, currently no pulse in LE Exam/Review of Systems Vital Signs Vitals Vital Signs Date Time Temp Pulse Resp B/P Pulse Ox O2 Delivery O2 Flow Rate FiO2 10/20/16 09:00 70 17 133/58 100 Nasal Cannula 10/20/16 08:00 98.2 10/20/16 02:00 2.0 Intake and Output 10/19/16 10/19/16 10/20/16 15:00 23:00 07:00 Intake Total 985 ml 285 ml 110 ml Output Total 50 ml 10 ml Balance 935 ml 275 ml 110 ml Exam GENERAL: Awake, alert, in moderate distress due to the elevated blood pressure and the pain. HEENT: Normal. Oropharynx clear. NECK: Supple, no JVD. LUNGS: Clear to auscultation. No crackles, no wheezes. HEART: S1, S2, with regular rhythm, no murmur. ABDOMEN: Soft, nontender, nondistended. Bowel sounds are present. EXTREMITIES: The patient has lower extremity gangrene. No cyanosis. Right upper chest tunneled hemodialysis catheter. NEUROLOGICAL: Alert, oriented x4. Cranial nerves II-XII intact. No focal deficits. PSYCHIATRIC: Appropriate affect and mood. Results Result Diagram: 10/20/16 0610 10/20/16 0610 Results 24 hrs Laboratory Tests Test 10/19/16 15:45 10/19/16 17:35 10/19/16 18:50 10/19/16 20:55 Arterial Blood HCO3 23.2 Arterial Blood Base Excess -0.3 Arterial Blood Oxygen Saturation 99.6 H Fredrick Test N/A Arterial Blood Gas Puncture Site A-Line Arterial Blood Carboxyhemoglobin 0.3 Arterial Blood Date Drawn 10/19/2016 3:40:08 PM Arterial Blood Methemoglobin 0.1 Arterial Blood pCO2 (Temp correct) 33.5 L Arterial Blood pH (Temp corrected) 7.458 H Arterial Blood pO2 (Temp corrected) 357.5 H Blood Gas A-a O2 Differential 322.0 H Blood Gas Low PEEP Setting 0 Blood Gas Modality VENT - AC Blood Gas Notified Time 10/19/2016 4:01:19 PM Blood Gas Notified Whom DTAYLOR Blood Gas Respiration Rate 8.0 Blood Gas Specimen Source Blood arterial Blood Gas Temperature 37.0 Blood Gas Tidal Volume 600.0 FiO2 100.0 Oxyhemoglobin Percent 99.2 H Total Hemoglobin 10.4 L Bedside Glucose 106 135 Creatine Kinase 32 Creatine Kinase Index 2.1 Creatinine Kinase MB (Mass) 0.67 Troponin I 0.054 Test 10/20/16 06:10 10/20/16 08:17 Anion Gap 19 H Basophils # 0.0 Basophils % 0.1 Blood Urea Nitrogen 39 #H Calcium Level 7.8 L Carbon Dioxide Level 26 Chloride Level 100 Creatinine 6.63 #H Eosinophils # 0.0 Eosinophils % 0.0 Glucose Level 96 Hematocrit 28.2 L Hemoglobin 8.8 L Iron Level 25 L Lymphocytes # 1.3 Lymphocytes % 10.7 L Magnesium Level 2.2 Mean Corpuscular Hemoglobin 31.3 Mean Corpuscular Hemoglobin Concent 31.2 L Mean Corpuscular Volume 100.4 Mean Platelet Volume 11.1 H Monocytes # 1.1 H Monocytes % 8.7 Neutrophils # 9.9 H Neutrophils % 80.2 H Nucleated Red Blood Cells # 0.0 Nucleated Red Blood Cells % 0.0 Percent Iron Saturation 14 L Phosphorus Level 4.4 Platelet Count 360 # Potassium Level 4.9 Red Blood Count 2.81 L Red Cell Distribution Width 18.1 H Sodium Level 140 Total Iron Binding Capacity 175 L White Blood Count 12.3 H Bedside Glucose 101 Medications Medications Current Medications Metoprolol Tartrate (Lopressor) 25 mg BID PO Last administered on 10/19/16 20: 58; Admin Dose 25 MG; Start 10/18/16 at 19:21 Amlodipine Besylate (Norvasc) 10 mg DAILY PO ; Start 10/19/16 at 09:00 Hydralazine HCl (Apresoline) 10 mg Q4H PRN IV SBP>150 mm Hg Last administered on 10/18/16 20:35; Admin Dose 10 MG; Start 10/18/16 at 20:00 Albuterol (Ventolin Hfa) 2 puff Q8 INH ; Start 10/18/16 at 22:30 Famotidine (Pepcid) 20 mg DAILY PO ; Start 10/19/16 at 09:00 Insulin Glargine 7 unit 7 unit DAILY@20 SC Last administered on 10/19/16 21:01 ; Admin Dose 7 UNIT; Start 10/18/16 at 22:30 Ceftriaxone Sodium (Rocephin) 50 ml @ 100 mls/hr Q24H IVPB Last administered on 10/19/16 22:54; Admin Dose 100 MLS/HR; Start 10/18/16 at 22:30 Ondansetron HCl (Zofran Inj) 4 mg Q6H PRN IV NAUSEA AND/OR VOMITING; Start at 22:30 Acetaminophen (Tylenol Tab) 650 mg Q6H PRN PO PAIN LEVEL 1-3 OR FEVER; Start at 22:30 Morphine Sulfate (morphine) 2 mg Q4H PRN IV SEVERE PAIN LEVEL 7-10 Last administered on 10/19/16 23:38; Admin Dose 2 MG; Start 10/18/16 at 22:30 Docusate Sodium (Colace) 100 mg Q12H PRN PO CONSTIPATION; Start 10/18/16 at 22: 30 Bisacodyl (Dulcolax Supp) 10 mg DAILY PRN [place] CONSTIPATION; Start 10/18/16 at 22 :30 Diagnostic Test (Pha) (Accucheck) 1 ea 02 XX Last administered on 10/20/16 00: 38; Admin Dose 1 EA; Start 10/19/16 at 02:00 Acetaminophen/ Hydrocodone Bitart ([place] (10/325)) 1 tab Q4H PRN PO PAIN LEVEL 6-10 Last administered on 10/20/16 03:24; Admin Dose 1 TAB; Start 10/18/16 at 22:30 Miscellaneous Information 1 ea NOTE XX ; Start 10/18/16 at 22:30 Glucose (Glutose) 15 gm Q15M PRN PO DECREASED GLUCOSE; Start 10/18/16 at 22:30 Glucose (Glutose) 22.5 gm Q15M PRN PO DECREASED GLUCOSE; Start 10/18/16 at 22: 30 Dextrose (D50w Syringe) 25 ml Q15M PRN IV DECREASED GLUCOSE; Start 10/18/16 at 22:30 Dextrose (D50w Syringe) 50 ml Q15M PRN IV DECREASED GLUCOSE; Start 10/18/16 at 22:30 Glucagon (Glucagen) 1 mg Q15M PRN IM DECREASED GLUCOSE; Start 10/18/16 at 22:30 Glucose (Glutose) 15 gm Q15M PRN BUCCAL DECREASED GLUCOSE; Start 10/18/16 at 22 :30 Morphine Sulfate (morphine) 2 mg Q3H PRN IV PAIN Last administered on 03:49; Admin Dose 2 MG; Start 10/19/16 at 19:30 Acetaminophen/ Hydrocodone Bitart ([place] (5/325)) 1 tab Q4H PRN PO PAIN LEVEL 1 -5; Start 10/19/16 at 19:30 Acetaminophen/ Hydrocodone Bitart ([place] (5/325)) 2 tab Q6H PRN PO PAIN LEVEL 6 -10; Start 10/19/16 at 19:30 LISA MERRITT MD Oct 20, 2016 09:09
--- NOTE | 2016-10-20 09:38 | CONS ---
Date/Time of Note Date/Time of Note DATE: 10/20/16 TIME: 09:35 Assessment/Plan Assessment/Plan Chief Complaint/Hosp Course IMPRESSION: 1. Preoperative evaluation prior to lower extremity vascular surgery, possible amputation.-Now POD#1 s/p LLE vascular surgery 2. Hypertension, uncontrolled. 3. Abnormal electrocardiogram, assess for acute coronary syndrome. 4. Dyslipidemia. 5. Peripheral arterial disease, status post prior revascularization. 6. Lower extremity nonhealing ulceration of the toe. 7. Possible pneumonia by chest x-ray. 8. End-stage renal disease on hemodialysis. 9. Anemia. 10. Leukocytosis. Recc: -Tele -Continue norvas -Local wound care -Pain control -Ongoing vascular eval and treatment Problems: Consultation Date/Type/Reason Admit Date/Time Oct 18, 2016 at 16:52 Initial Consult Date PAD/gangrene Type of Consultation: Cardiology Reason for Consultation pre-op Referring Provider: OZZIE HERRERA MD Exam/Review of Systems Vital Signs Vitals Vital Signs Date Time Temp Pulse Resp B/P Pulse Ox O2 Delivery O2 Flow Rate FiO2 10/20/16 09:00 70 17 133/58 100 Nasal Cannula 10/20/16 08:00 98.2 10/20/16 08:00 2.0 Intake and Output 10/19/16 10/19/16 10/20/16 15:00 23:00 07:00 Intake Total 985 ml 285 ml 110 ml Output Total 50 ml 10 ml Balance 935 ml 275 ml 110 ml Exam Review of Systems: CONSTITUTIONAL: No fevers, chills. PULMONARY: No sob CARDIOVASCULAR: No chest pain/palpitations GASTROINTESTINAL: No nausea/vomiting. GENITOURINARY: No hematuria/dysuria. MUSCULOSKELETAL: Pain in leg PSYCHIATRIC: The patient denies depression. NEUROLOGIC: No weakness Constitutional: alert Psych: no complaints Head: normocephalic ENMT: mucosa pink and moist Neck: jvd (9 cm water), supple Respiratory: diminished breath sounds (at bases/B) Cardiovascular: regular rate and rhythm Gastrointestinal: non-tender, soft Musculoskeletal: other (LLE s/p surgery) Extremities: other (RLE with garenous changes) Results Result Diagram: 10/20/16 0610 10/20/16 0610 Results 24 hrs Laboratory Tests Test 10/19/16 15:45 10/19/16 17:35 10/19/16 18:50 10/19/16 20:55 Arterial Blood HCO3 23.2 Arterial Blood Base Excess -0.3 Arterial Blood Oxygen Saturation 99.6 H Fredrick Test N/A Arterial Blood Gas Puncture Site A-Line Arterial Blood Carboxyhemoglobin 0.3 Arterial Blood Date Drawn 10/19/2016 3:40:08 PM Arterial Blood Methemoglobin 0.1 Arterial Blood pCO2 (Temp correct) 33.5 L Arterial Blood pH (Temp corrected) 7.458 H Arterial Blood pO2 (Temp corrected) 357.5 H Blood Gas A-a O2 Differential 322.0 H Blood Gas Low PEEP Setting 0 Blood Gas Modality VENT - AC Blood Gas Notified Time 10/19/2016 4:01:19 PM Blood Gas Notified Whom DTAYLOR Blood Gas Respiration Rate 8.0 Blood Gas Specimen Source Blood arterial Blood Gas Temperature 37.0 Blood Gas Tidal Volume 600.0 FiO2 100.0 Oxyhemoglobin Percent 99.2 H Total Hemoglobin 10.4 L Bedside Glucose 106 135 Creatine Kinase 32 Creatine Kinase Index 2.1 Creatinine Kinase MB (Mass) 0.67 Troponin I 0.054 Test 10/20/16 06:10 10/20/16 08:17 Anion Gap 19 H Basophils # 0.0 Basophils % 0.1 Blood Urea Nitrogen 39 #H Calcium Level 7.8 L Carbon Dioxide Level 26 Chloride Level 100 Creatinine 6.63 #H Eosinophils # 0.0 Eosinophils % 0.0 Glucose Level 96 Hematocrit 28.2 L Hemoglobin 8.8 L Iron Level 25 L Lymphocytes # 1.3 Lymphocytes % 10.7 L Magnesium Level 2.2 Mean Corpuscular Hemoglobin 31.3 Mean Corpuscular Hemoglobin Concent 31.2 L Mean Corpuscular Volume 100.4 Mean Platelet Volume 11.1 H Monocytes # 1.1 H Monocytes % 8.7 Neutrophils # 9.9 H Neutrophils % 80.2 H Nucleated Red Blood Cells # 0.0 Nucleated Red Blood Cells % 0.0 Percent Iron Saturation 14 L Phosphorus Level 4.4 Platelet Count 360 # Potassium Level 4.9 Red Blood Count 2.81 L Red Cell Distribution Width 18.1 H Sodium Level 140 Total Iron Binding Capacity 175 L White Blood Count 12.3 H Bedside Glucose 101 Medications Medications Current Medications Metoprolol Tartrate (Lopressor) 25 mg BID PO Last administered on 10/19/16t 20: 58; Admin Dose 25 MG; Start 10/18/16 at 19:21 Amlodipine Besylate (Norvasc) 10 mg DAILY PO ; Start 10/19/16 at 09:00 Hydralazine HCl (Apresoline) 10 mg Q4H PRN IV SBP>150 mm Hg Last administered on 10/18/16 20:35; Admin Dose 10 MG; Start 10/18/16 at 20:00 Albuterol (Ventolin Hfa) 2 puff Q8 INH ; Start 10/18/16 at 22:30 Famotidine (Pepcid) 20 mg DAILY PO ; Start 10/19/16 at 09:00 Insulin Glargine 7 unit 7 unit DAILY@20 SC Last administered on 10/19/16 21:01 ; Admin Dose 7 UNIT; Start 10/18/16 at 22:30 Ceftriaxone Sodium (Rocephin) 50 ml @ 100 mls/hr Q24H IVPB Last administered on 10/19/16 22:54; Admin Dose 100 MLS/HR; Start 10/18/16 at 22:30 Ondansetron HCl (Zofran Inj) 4 mg Q6H PRN IV NAUSEA AND/OR VOMITING; Start at 22:30 Acetaminophen (Tylenol Tab) 650 mg Q6H PRN PO PAIN LEVEL 1-3 OR FEVER; Start at 22:30 Morphine Sulfate (morphine) 2 mg Q4H PRN IV SEVERE PAIN LEVEL 7-10 Last administered on 10/19/16 23:38; Admin Dose 2 MG; Start 10/18/16 at 22:30 Docusate Sodium (Colace) 100 mg Q12H PRN PO CONSTIPATION; Start 10/18/16 at 22: 30 Bisacodyl (Dulcolax Supp) 10 mg DAILY PRN [place] CONSTIPATION; Start 10/18/16 at 22 :30 Diagnostic Test (Pha) (Accucheck) 1 ea 02 XX Last administered on 10/20/16 00: 38; Admin Dose 1 EA; Start 10/19/16 at 02:00 Acetaminophen/ Hydrocodone Bitart ([place] (10/325)) 1 tab Q4H PRN PO PAIN LEVEL 6-10 Last administered on 10/20/16 03:24; Admin Dose 1 TAB; Start 10/18/16 at 22:30 Miscellaneous Information 1 ea NOTE XX ; Start 10/18/16 at 22:30 Glucose (Glutose) 15 gm Q15M PRN PO DECREASED GLUCOSE; Start 10/18/16 at 22:30 Glucose (Glutose) 22.5 gm Q15M PRN PO DECREASED GLUCOSE; Start 10/18/16 at 22: 30 Dextrose (D50w Syringe) 25 ml Q15M PRN IV DECREASED GLUCOSE; Start 10/18/16 at 22:30 Dextrose (D50w Syringe) 50 ml Q15M PRN IV DECREASED GLUCOSE; Start 10/18/16 at 22:30 Glucagon (Glucagen) 1 mg Q15M PRN IM DECREASED GLUCOSE; Start 10/18/16 at 22:30 Glucose (Glutose) 15 gm Q15M PRN BUCCAL DECREASED GLUCOSE; Start 10/18/16 at 22 :30 Morphine Sulfate (morphine) 2 mg Q3H PRN IV PAIN Last administered on t 03:49; Admin Dose 2 MG; Start 10/19/16 at 19:30 Acetaminophen/ Hydrocodone Bitart ([place] (5/325)) 1 tab Q4H PRN PO PAIN LEVEL 1 -5; Start 10/19/16 at 19:30 Acetaminophen/ Hydrocodone Bitart ([place] (5/325)) 2 tab Q6H PRN PO PAIN LEVEL 6 -10; Start 10/19/16 at 19:30 KAYLEE WILSON Oct 20, 2016 09:38
[2016-10-20] MEDS: FAMOTIDINE 20 MG TAB PO SCH (10:07)
[2016-10-20] MEDS: METOPROLOL 25 MG TAB PO SCH ×2 (10:08→21:31)
[2016-10-20] MEDS: AMLODIPINE 10 MG TAB PO SCH (10:08)
--- NOTE | 2016-10-20 12:27 | PN ---
Date/Time of Note Date/Time of Note DATE: 10/20/16 TIME: 12:15 Assessment/Plan Lines/Catheters IV Catheter Type (from [facility]): Saline Lock Correa in Place (from [facility]): No Assessment/Plan Chief Complaint/Hosp Course -Bilateral lower extremity atherosclerosis with gangrene: It seems that the patient's left lower extremity redo revascularization has thrombosed despite being on heparin gtt. Unfortunately, I do not see any benefit for re- exploration and thrombectomy as the graft has thrombosed in such short time and while pt kept on Hep gtt overnight. I have discussed the findings with the patient and the family at the bedside and given his limited conduits he will likely require a major amputation if his rest pain in intolerable or gangrene worsens. -Will obtain arterial vascular ultrasound to delineate the findings on exam -End-stage renal disease: The patient has had a history of bilateral upper extremity, chest wall catheters, and he has also undergone bilateral upper extremity venograms. The patient had been scheduled as an outpatient for eventual left upper extremity fistula creation. However, at the moment we will plan to keep his antecubital segments free of any IV lines or blood draws and will eventually plan for creation of a new fistula for him. -Optimize vascular status (BP meds, diet, nutrition, exercise, sugar control, antiplatelets). -Continue antibiotics -Continue with wound vac for now -Appreciate cardiology evaluation -Apply Betadine paint to all the incision lines for now. -Discussed findings, plan and management with the patient and family at the bedside and they understand with certified electrical assemblies supervisor Thank you for allowing us to participate in the care of your patient. Please call with any questions. Problems: Subjective 24 Hr Interval Summary I identified the patient had no Dependent dopplerable PT signal this morning upon evaluation at the bedside. Nursing was not able to confirm when this had occurred as the nurse overnight was checking the venous signals and not arterial as he demonstrated during our exam. Patient had been kept on Heparin gtt overnight Exam/Review of Systems Vital Signs Vitals Vital Signs Date Time Temp Pulse Resp B/P Pulse Ox O2 Delivery O2 Flow Rate FiO2 10/20/16 12:00 73 10/20/16 11:00 17 146/64 100 Nasal Cannula 10/20/16 08:00 98.2 10/20/16 08:00 2.0 Intake and Output 10/19/16 10/19/1617 15:00 23:00 07:00 Intake Total 985 ml 285 ml 115 ml Output Total 50 ml 10 ml Balance 935 ml 275 ml 115 ml Exam Free Text/Dictation GENERAL: Alert and oriented x3, PULMONARY: Clear to auscultation bilaterally. CARDIOVASCULAR: S1, S2 present. ABDOMEN: Soft, nontender, nondistended. Bowel sounds positive. EXTREMITIES: Lower extremity: Right lower extremity palpable femoral pulse, nonpalpable pedal pulse. Motor, sensory intact. Cap refill 3 to 4 seconds. Gangrene of the first and second toe with surrounding erythema and pain of the first toe Left lower extremity: Palpable femoral pulse, nonpalpable graft at the knee. no Dopplerable signal of the graft or PT signal. He does have some edema that is 1+. Gangrene of the first and second toe. His capillary refill 3-4 seconds. Wound vac intact, Dressing removed for evaluation. Results Result Diagram: 10/20/16 0610 10/20/16 0610 CYNDI CARR MD Oct 20, 2016 12:26
[2016-10-20] MEDS: ZYVOX 600 MG TAB PO SCH ×2 (12:34→21:31)
--- NOTE | 2016-10-20 13:01 | PN ---
DATE: 10/20/2016 SUBJECTIVE: No events overnight. The patient is alert, feels good, complaining of left lower extremity pain, no fevers. WBC today 12.3, H and H 8.8 and 28.2, platelets 360, neutrophils 80.2, BUN 39, creatinine 6.63. MICROBIOLOGY: Cultures have been negative. INDWELLINGS: Right IJ Perm-A-Cath. ANTIMICROBIALS: Patient is on Rocephin. ALLERGIES: VANCOMYCIN. DIAGNOSIS IMPRESSION: This is a well-developed elderly man with numerous medical problems, status post revascularization. The procedure was wound debridement on his left lower extremity. He is on IV Rocephin. We will add oral Zyvox. Await for intraoperative cultures. Follow vascular recommendations. Above was discussed with Dr. Quintero. ASSESSMENT: 1. Severe peripheral vascular disease with bilateral lower extremity gangrene, status post-surgical intervention with thrombectomy, exploration of the above knee popliteal graft and debridement of left lower extremity wound with wound VAC application on 10/19/2016. 2. End-stage renal disease, hemodialysis dependent. 3. Anemia of chronic disease. Plan: Add Zyvox, continue Rocephin, await for intraoperative cx's, f/u vascular rec-s DW staff Dictated By: DARLENE MCKEE SNUBBER for NICOLE SANTANA/SIN Conf#: [id number] DID#: [id number] MTDD
--- NOTE | 2016-10-20 16:48 | RADRPT ---
PROCEDURE: US left lower extremity arteries. CLINICAL INDICATION: Left leg pain following surgery for ischemia. Bypass graft patency. TECHNIQUE: Multiple longitudinal and transverse images of the left lower extremity arteries and by pass graft were obtained with powell scale and color Doppler imaging. COMPARISON: No prior studies are available for comparison. FINDINGS: The left common femoral artery is patent with normal flow visualized. The deep femoral artery is al so patent. The left superficial femoral artery is completely occluded. There is a graft extending from the left common femoral artery to the knee which is completely occluded. There is a graft exte nding from the popliteal artery to the ankle region which is also completely occluded. The left aletha salis pedis artery and left posterior tibial artery demonstrate no flow. IMPRESSION: 1. Patent left common femoral artery. 2. Completely occluded graft extending from left common femoral artery to knee and completely occlu ded graft extending from the popliteal artery to the ankle region. RPTAT: QQ .Rick Tomlin MD, MD Date Time Electronically viewed and signed by .Rick Tomlin MD, MD on 10/20/2016 16:48 .R/
--- NOTE | 2016-10-20 17:02 | PN ---
Date/Time of Note Date/Time of Note DATE: 10/20/16 TIME: 16:58 Assessment/Plan VTE Prophylaxis VTE Prophylaxis Intervention: heparin Lines/Catheters IV C[facility] Type (from [facility]): Saline Lock Urinary Cath still in place: No Assessment/Plan Chief Complaint/Hosp Course Subjective: 10/19 Events noted. Patient in surgery. 10/20 Failed revascularization. daughter updated too. for amputation. no distress. + cough/ atypical cp at rest, improved sitting up. Objective: Vss PE: no pallor/jvd s1s2 reg; no m/r/g ctab bs+ nt nd; no r/r/g ext- no edema; poor pulses A/P: 1. Lt lower ext ~dry gangrene w PAD. sp angiogram/bypass/heparin gtt. Stable treat pain. -Pending amputation. May proceed from medical standpoint. Cardiac periop eval in process. 2. Esrd 3. Htn/dm/metabolic syndrome. 4. Anemia. 5. Past tobacco. 6. Additionally, rt lwr ext dry gangrene. 7. Possible past alcoholism. 8. Pneumonia vs atelectasis. No hypoxia; may proceed to surgery. 9. Possible cad 10. PAD 11. Diabetes 12. Cellulitis/DFI, appreciate ID eval Problems: Exam/Review of Systems Vital Signs Vitals Vital Signs Date Time Temp Pulse Resp B/P Pulse Ox O2 Delivery O2 Flow Rate FiO2 10/20/16 16:00 67 10/20/16 15:00 14 134/53 97 Room Air 10/20/16 12:00 98.3 10/20/16 08:00 2.0 Intake and Output 10/19/16 10/19/16 10/20/16 15:00 23:00 07:00 Intake Total 985 ml 285 ml 115 ml Output Total 50 ml 10 ml 0 ml Balance 935 ml 275 ml 115 ml Results Result Diagram: 10/20/16 0610 10/20/16 0610 Results 24 hrs Laboratory Tests Test 10/19/16 17:35 10/19/16 18:50 10/19/16 20:55 10/20/16 06:10 Bedside Glucose 106 135 Creatine Kinase 32 Creatine Kinase Index 2.1 Creatinine Kinase MB (Mass) 0.67 Troponin I 0.054 White Blood Count 12.3 H Red Blood Count 2.81 L Hemoglobin 8.8 L Hematocrit 28.2 L Mean Corpuscular Volume 100.4 Mean Corpuscular Hemoglobin 31.3 Mean Corpuscular Hemoglobin Concent 31.2 L Red Cell Distribution Width 18.1 H Platelet Count 360 # Mean Platelet Volume 11.1 H Neutrophils % 80.2 H Lymphocytes % 10.7 L Monocytes % 8.7 Eosinophils % 0.0 Basophils % 0.1 Nucleated Red Blood Cells % 0.0 Neutrophils # 9.9 H Lymphocytes # 1.3 Monocytes # 1.1 H Eosinophils # 0.0 Basophils # 0.0 Nucleated Red Blood Cells # 0.0 Sodium Level 140 Potassium Level 4.9 Chloride Level 100 Carbon Dioxide Level 26 Anion Gap 19 H Blood Urea Nitrogen 39 #H Creatinine 6.63 #H Glucose Level 96 Calcium Level 7.8 L Phosphorus Level 4.4 Magnesium Level 2.2 Iron Level 25 L Total Iron Binding Capacity 175 L Percent Iron Saturation 14 L Test 10/20/16 08:17 10/20/16 11:40 Bedside Glucose 101 159 Medications Medications Current Medications Metoprolol Tartrate (Lopressor) 25 mg BID PO Last administered on 10/20/16 10: 08; Admin Dose 25 MG; Start 10/18/16 at 19:21 Amlodipine Besylate (Norvasc) 10 mg DAILY PO Last administered on 10/20/16 10: 08; Admin Dose 10 MG; Start 10/19/16 at 09:00 Hydralazine HCl (Apresoline) 10 mg Q4H PRN IV SBP>150 mm Hg Last administered on 10/18/16 20:35; Admin Dose 10 MG; Start 10/18/16 at 20:00 Albuterol (Ventolin Hfa) 2 puff Q8 INH Last administered on 10/20/16 14:55; Admin Dose 2 PUFF; Start 10/18/16 at 22:30 Famotidine (Pepcid) 20 mg DAILY PO Last administered on 10/20/16 10:07; Admin Dose 20 MG; Start 10/19/16 at 09:00 Insulin Glargine 7 unit 7 unit DAILY@20 SC Last administered on 10/19/16 21:01 ; Admin Dose 7 UNIT; Start 10/18/16 at 22:30 Ceftriaxone Sodium (Rocephin) 50 ml @ 100 mls/hr Q24H IVPB Last administered on 10/19/16 22:54; Admin Dose 100 MLS/HR; Start 10/18/16 at 22:30 Ondansetron HCl (Zofran Inj) 4 mg Q6H PRN IV NAUSEA AND/OR VOMITING; Start at 22:30 Acetaminophen (Tylenol Tab) 650 mg Q6H PRN PO PAIN LEVEL 1-3 OR FEVER; Start at 22:30 Morphine Sulfate (morphine) 2 mg Q4H PRN IV SEVERE PAIN LEVEL 7-10 Last administered on 10/19/16 23:38; Admin Dose 2 MG; Start 10/18/16 at 22:30 Docusate Sodium (Colace) 100 mg Q12H PRN PO CONSTIPATION; Start 10/18/16 at 22: 30 Bisacodyl (Dulcolax Supp) 10 mg DAILY PRN [place] CONSTIPATION; Start 10/18/16 at 22 :30 Diagnostic Test (Pha) (Accucheck) 1 ea 02 XX Last administered on 10/20/16 00: 38; Admin Dose 1 EA; Start 10/19/16 at 02:00 Acetaminophen/ Hydrocodone Bitart ([place] (10/325)) 1 tab Q4H PRN PO PAIN LEVEL 6-10 Last administered on 10/20/16 14:50; Admin Dose 1 TAB; Start 10/18/16 at 22:30 Miscellaneous Information 1 ea NOTE XX ; Start 10/18/16 at 22:30 Glucose (Glutose) 15 gm Q15M PRN PO DECREASED GLUCOSE; Start 10/18/16 at 22:30 Glucose (Glutose) 22.5 gm Q15M PRN PO DECREASED GLUCOSE; Start 10/18/16 at 22: 30 Dextrose (D50w Syringe) 25 ml Q15M PRN IV DECREASED GLUCOSE; Start 10/18/16 at 22:30 Dextrose (D50w Syringe) 50 ml Q15M PRN IV DECREASED GLUCOSE; Start 10/18/16 at 22:30 Glucagon (Glucagen) 1 mg Q15M PRN IM DECREASED GLUCOSE; Start 10/18/16 at 22:30 Glucose (Glutose) 15 gm Q15M PRN BUCCAL DECREASED GLUCOSE; Start 10/18/16 at 22 :30 Morphine Sulfate (morphine) 2 mg Q3H PRN IV PAIN Last administered on 03:49; Admin Dose 2 MG; Start 10/19/16 at 19:30 Acetaminophen/ Hydrocodone Bitart ([place] (5/325)) 1 tab Q4H PRN PO PAIN LEVEL 1 -5; Start 10/19/16 at 19:30 Acetaminophen/ Hydrocodone Bitart ([place] (5/325)) 2 tab Q6H PRN PO PAIN LEVEL 6 -10; Start 10/19/16 at 19:30 Linezolid (Zyvox) 600 mg BID PO Last administered on 10/20/16t 12:34; Admin Dose 600 MG; Start 10/20/16 at 12:15 CAL FLORES MD Oct 20, 2016 17:02
--- NOTE | 2016-10-20 20:38 | RADRPT ---
Echocardiogram Report Patient Name: JEFFERSON LITTLEJOHN Gender: Male Date: 1950 Study Date: 19-Oct-2016 Processing Operator: Christiano Gill RDCS Location: [id number] Ref. Physician: KAYLEE WILSON Quality: Good Procedures: Transthoracic echocardiogram with complete 2D, M-Mode, and doppler examination. Indications: Pre-op. 2D/M Mode Doppler Measurement Value Normal Ranges Measurement Value Normal Ranges LVIDd 2D 5.7 3.5 - 5.6 cm AV Peak Rob 1.2 m/sec LVIDs 2D 4.0 2.1 - 4.1 cm AV Peak PG 5.9 mmHg LVPWd 2D 1.2 0.6 - 1.1 cm LVOT Peak Rob 1.0 m/sec IVSd 2D 1.2 0.6 - 1.1 cm LVOT Peak PG 4.0 mmHg AoR Diam 2D 3.0 2.0 - 3.7 cm MV E Peak Rob 1.1 m/sec EDV 2D 161.1 cm3 MV A Peak Rob 1.0 m/sec ESV 2D 62.4 cm3 MV E/A 1.1 LA Dimen 2D 4.2 2.3 - 4.0 cm MV Decel Time 132 msec MV Decel Hunt 8 MV E/A 1.1 Findings Left Ventricle: Mild concentric left ventricular hypertrophy. Mild enlargement of left ventricle cavity. Mild left ventricular systolic dysfunction. Ejection fraction is visually estimated at 4045 %. These segments of the LV are hypokinetic apical septum and mid septum segment. Right Ventricle: Normal right ventricular size. Normal right ventricular systolic function. Left Atrium: There is mild enlargement of left atrium. Right Atrium: There is mild enlargement of right atrium. Mitral Valve: Normal appearance and function of the mitral valve with trace physiologic regurgitation. Aortic Valve: No significant aortic stenosis or insufficiency. Aortic cusps appear mildly calcified. Tricuspid Valve: Normal appearance and function of the tricuspid valve with trace physiologic regurgitation. Pulmonic Valve: Normal pulmonic valve appearance. There is trace pulmonic regurgitation. Pericardium: Normal pericardium with no significant pericardial effusion. Aorta: Normal aortic root. IVC: Normal size and normal respiratory collapse consistent with normal right atrial pressure. Conclusions 1.Mild concentric left ventricular hypertrophy. Mild enlargement of left ventricle cavity. Mild left ventricular systolic dysfunction. Ejection fraction is visually estimated at 40-45 %. These segments of the LV are hypokinetic apical septum. and mid septum segment. 2.There is mild enlargement of left atrium. 3.There is mild enlargement of right atrium. 4.Normal appearance and function of the mitral valve with trace physiologic regurgitation. 5.Normal appearance and function of the tricuspid valve with trace physiologic regurgitation. 6.Normal pulmonic valve appearance. There is trace pulmonic regurgitation. Electronically Signed By: Kaylee Wilson 20-Oct-2016 20:38:27 -0700 Patient Name: JEFFERSON LITTLEJOHN Study Date: 19-Oct-2016 [id number]
[2016-10-20] MEDS: INSULIN GLARGINE [LANtus] 3 ML PEN SC SCH (21:42)
[2016-10-20] MEDS: CEFTRIAXONE 1 GM/50 ML (PMX) 50 ML IVPB SCH (22:15)
[2016-10-21] VITALS (23 sets, daily range): BP systolic 118–167; BP diastolic 48–81; PULSE 64–81; RESP 12–22
[2016-10-21] MEDS: ACCU-CHEK XX SCH (00:45)
[2016-10-21] MEDS: HEPARIN 25000 UNITS/250 ML 250 ML IV SCH (00:45)
[2016-10-21] MEDS: HYDROCODONE/APAP (5/325) TAB PO PRN ×2 (02:44→21:10)
[2016-10-21] MEDS: ALBUTEROL HFA 8 GM INHALER INH SCH ×3 (05:31→22:11)
[2016-10-21] MEDS: INSULIN ASPART [NOVOLOG] 3 ML PEN SC SCH ×4 (07:35→21:00)
[2016-10-21] MEDS: FAMOTIDINE 20 MG TAB PO SCH (08:47)
[2016-10-21] MEDS: AMLODIPINE 10 MG TAB PO SCH (08:47)
[2016-10-21] MEDS: METOPROLOL 25 MG TAB PO SCH ×2 (08:47→21:04)
[2016-10-21] MEDS: ZYVOX 600 MG TAB PO SCH ×2 (08:47→21:04)
--- NOTE | 2016-10-21 11:13 | CONS ---
Date/Time of Note Date/Time of Note DATE: 10/21/16 TIME: 11:10 Assessment/Plan Assessment/Plan Chief Complaint/Hosp Course IMPRESSION: 1. Preoperative evaluation prior to lower extremity vascular surgery, possible amputation.-Now POD#2 s/p LLE vascular surgery 2. Hypertension, uncontrolled. 3. Abnormal electrocardiogram, assess for acute coronary syndrome. 4. Dyslipidemia. 5. Peripheral arterial disease, status post prior revascularization. 6. Lower extremity nonhealing ulceration of the toe. 7. Possible pneumonia by chest x-ray. 8. End-stage renal disease on hemodialysis. 9. Anemia. 10. Leukocytosis. Recc: -Tele -Continue norvasc -Local wound care -Pain control -Continue heparin -Add ASA -Ongoing vascular eval and treatment Problems: Consultation Date/Type/Reason Admit Date/Time Oct 18, 2016 at 16:52 Initial Consult Date PAD/gangrene Type of Consultation: Cardiology Reason for Consultation HTN/pre-op Referring Provider: OZZIE HERRERA MD Exam/Review of Systems Vital Signs Vitals Vital Signs Date Time Temp Pulse Resp B/P Pulse Ox O2 Delivery O2 Flow Rate FiO2 10/21/16 08:00 70 10/21/16 06:00 22 131/57 91 10/21/16 04:00 98.8 10/20/16 21:00 Room Air 10/20/16 20:00 2.0 Intake and Output 10/20/16 10/20/16 10/21/16 15:00 23:00 07:00 Intake Total 310 ml 290 ml 225 ml Output Total 0 ml 0 ml Balance 310 ml 290 ml 225 ml Exam Review of Systems: CONSTITUTIONAL: No fevers, chills. PULMONARY: No sob CARDIOVASCULAR: No chest pain/palpitations GASTROINTESTINAL: No nausea/vomiting. GENITOURINARY: No hematuria/dysuria. MUSCULOSKELETAL: Mild pain in foot PSYCHIATRIC: The patient denies depression. NEUROLOGIC: No weakness Constitutional: alert Psych: no complaints Head: normocephalic ENMT: mucosa pink and moist Neck: jvd (9 cm wter), supple Respiratory: diminished breath sounds (at bases/B) Cardiovascular: regular rate and rhythm Gastrointestinal: non-tender, soft Musculoskeletal: muscle tone (normal) Extremities: edema (trace/B), other (Gangrenous changes of feet bilateral) Neurological: other (No focal deficits) Results Result Diagram: 10/20/16 0610 10/20/16 0610 Results 24 hrs Laboratory Tests Test 10/20/16 11:40 10/20/16 17:24 10/20/16 21:29 10/21/16 00:41 Bedside Glucose 159 130 150 146 Test 10/21/16 08:17 Bedside Glucose 82 Medications Medications Current Medications Metoprolol Tartrate (Lopressor) 25 mg BID PO Last administered on 10/21/16 08: 47; Admin Dose 25 MG; Start 10/18/16 at 19:21 Amlodipine Besylate (Norvasc) 10 mg DAILY PO Last administered on 10/21/16 08: 47; Admin Dose 10 MG; Start 10/19/16 at 09:00 Hydralazine HCl (Apresoline) 10 mg Q4H PRN IV SBP>150 mm Hg Last administered on 10/18/16 20:35; Admin Dose 10 MG; Start 10/18/16 at 20:00 Albuterol (Ventolin Hfa) 2 puff Q8 INH Last administered on 10/21/16 05:31; Admin Dose 2 PUFF; Start 10/18/16 at 22:30 Famotidine (Pepcid) 20 mg DAILY PO Last administered on 10/21/16 08:47; Admin Dose 20 MG; Start 10/19/16 at 09:00 Insulin Glargine 7 unit 7 unit DAILY@20 SC Last administered on 10/20/16 21:42 ; Admin Dose 7 UNIT; Start 10/18/16 at 22:30 Ceftriaxone Sodium (Rocephin) 50 ml @ 100 mls/hr Q24H IVPB Last administered on 10/20/16 22:15; Admin Dose 100 MLS/HR; Start 10/18/16 at 22:30 Ondansetron HCl (Zofran Inj) 4 mg Q6H PRN IV NAUSEA AND/OR VOMITING; Start at 22:30 Acetaminophen (Tylenol Tab) 650 mg Q6H PRN PO PAIN LEVEL 1-3 OR FEVER; Start at 22:30 Morphine Sulfate (morphine) 2 mg Q4H PRN IV SEVERE PAIN LEVEL 7-10 Last administered on 10/19/16 23:38; Admin Dose 2 MG; Start 10/18/16 at 22:30 Docusate Sodium (Colace) 100 mg Q12H PRN PO CONSTIPATION; Start 10/18/16 at 22: 30 Bisacodyl (Dulcolax Supp) 10 mg DAILY PRN [place] CONSTIPATION; Start 10/18/16 at 22 :30 Diagnostic Test (Pha) (Accucheck) 1 ea 02 XX Last administered on 10/21/16 00: 45; Admin Dose 1 EA; Start 10/19/16 at 02:00 Acetaminophen/ Hydrocodone Bitart ([place] (10/325)) 1 tab Q4H PRN PO PAIN LEVEL 6-10 Last administered on 10/20/16 18:57; Admin Dose 1 TAB; Start 10/18/16 at 22:30 Miscellaneous Information 1 ea NOTE XX ; Start 10/18/16 at 22:30 Glucose (Glutose) 15 gm Q15M PRN PO DECREASED GLUCOSE; Start 10/18/16 at 22:30 Glucose (Glutose) 22.5 gm Q15M PRN PO DECREASED GLUCOSE; Start 10/18/16 at 22: 30 Dextrose (D50w Syringe) 25 ml Q15M PRN IV DECREASED GLUCOSE; Start 10/18/16 at 22:30 Dextrose (D50w Syringe) 50 ml Q15M PRN IV DECREASED GLUCOSE; Start 10/18/16 at 22:30 Glucagon (Glucagen) 1 mg Q15M PRN IM DECREASED GLUCOSE; Start 10/18/16 at 22:30 Glucose (Glutose) 15 gm Q15M PRN [place]CC[place] DECREASED GLUCOSE; Start 10/18/16 at 22 :30 Morphine Sulfate (morphine) 2 mg Q3H PRN IV PAIN Last administered on 03:49; Admin Dose 2 MG; Start 10/19/16 at 19:30 Acetaminophen/ Hydrocodone Bitart ([place] (5/325)) 1 tab Q4H PRN PO PAIN LEVEL 1 -5; Start 10/19/16 at 19:30 Acetaminophen/ Hydrocodone Bitart ([place] (5/325)) 2 tab Q6H PRN PO PAIN LEVEL 6 -10 Last administered on 10/21/16 02:44; Admin Dose 2 TAB; Start 10/19/16 at 19 :30 Linezolid (Zyvox) 600 mg BID PO Last administered on 10/21/16 08:47; Admin Dose 600 MG; Start 10/20/16 at 12:15 KAYLEE WILSON Oct 21, 2016 11:13
[2016-10-21] MEDS: HYDROCODONE/APAP (10/325) TAB PO PRN (11:52)
--- NOTE | 2016-10-21 12:58 | CONS ---
Date/Time of Note Date/Time of Note DATE: 10/21/16 TIME: 12:56 Assessment/Plan Assessment/Plan Chief Complaint/Hosp Course SUBJECTIVE: No events overnight. The patient is alert, complaining of left lower extremity pain, no fevers. MICROBIOLOGY: Cultures have been negative. INDWELLINGS: Right IJ Perm-A-Cath. ANTIMICROBIALS: Zyvox Rocephin. ALLERGIES: VANCOMYCIN. ASSESSMENT: 1. Severe peripheral vascular disease with bilateral lower extremity gangrene, status post-surgical intervention with thrombectomy, exploration of the above knee popliteal graft and debridement of left lower extremity wound with wound VAC application on 10/19/2016. 2. End-stage renal disease, hemodialysis dependent. 3. Anemia of chronic disease. 4. DM 5. HTN Plan: Clinically unchanged, continue abx, f/u vascular rec-s, wound vac, HD DW staff Problems: Consultation Date/Type/Reason Admit Date/Time Oct 18, 2016 at 16:52 Initial Consult Date Type of Consultation: ID Referring Provider: OZZIE HERRERA MD Exam/Review of Systems Vital Signs Vitals Vital Signs Date Time Temp Pulse Resp B/P Pulse Ox O2 Delivery O2 Flow Rate FiO2 10/21/16 12:00 98.6 67 15 134/56 96 Room Air 10/20/16 20:00 2.0 Intake and Output 10/20/16 10/20/16 10/21/16 15:00 23:00 07:00 Intake Total 310 ml 290 ml 225 ml Output Total 0 ml 0 ml Balance 310 ml 290 ml 225 ml Results Result Diagram: 10/20/16 0610 10/20/16 0610 Results 24 hrs Laboratory Tests Test 10/20/16 17:24 10/20/16 21:29 10/21/16 00:41 10/21/16 08:17 Bedside Glucose 130 150 146 82 Test 10/21/16 11:53 Bedside Glucose 130 Medications Medications Current Medications Metoprolol Tartrate (Lopressor) 25 mg BID PO Last administered on 10/21/16 08: 47; Admin Dose 25 MG; Start 10/18/16 at 19:21 Amlodipine Besylate (Norvasc) 10 mg DAILY PO Last administered on 10/21/16 08: 47; Admin Dose 10 MG; Start 10/19/16 at 09:00 Hydralazine HCl (Apresoline) 10 mg Q4H PRN IV SBP>150 mm Hg Last administered on 10/18/16 20:35; Admin Dose 10 MG; Start 10/18/16 at 20:00 Albuterol (Ventolin Hfa) 2 puff Q8 INH Last administered on 10/21/16 05:31; Admin Dose 2 PUFF; Start 10/18/16 at 22:30 Famotidine (Pepcid) 20 mg DAILY PO Last administered on 10/21/16 08:47; Admin Dose 20 MG; Start 10/19/16 at 09:00 Insulin Glargine 7 unit 7 unit DAILY@20 SC Last administered on 10/20/16 21:42 ; Admin Dose 7 UNIT; Start 10/18/16 at 22:30 Ceftriaxone Sodium (Rocephin) 50 ml @ 100 mls/hr Q24H IVPB Last administered on 10/20/16 22:15; Admin Dose 100 MLS/HR; Start 10/18/16 at 22:30 Ondansetron HCl (Zofran Inj) 4 mg Q6H PRN IV NAUSEA AND/OR VOMITING; Start at 22:30 Acetaminophen (Tylenol Tab) 650 mg Q6H PRN PO PAIN LEVEL 1-3 OR FEVER; Start at 22:30 Morphine Sulfate (morphine) 2 mg Q4H PRN IV SEVERE PAIN LEVEL 7-10 Last administered on 10/19/16 23:38; Admin Dose 2 MG; Start 10/18/16 at 22:30 Docusate Sodium (Colace) 100 mg Q12H PRN PO CONSTIPATION; Start 10/18/16 at 22: 30 Bisacodyl (Dulcolax Supp) 10 mg DAILY PRN [place] CONSTIPATION; Start 10/18/16 at 22 :30 Diagnostic Test (Pha) (Accucheck) 1 ea 02 XX Last administered on 10/21/16 00: 45; Admin Dose 1 EA; Start 10/19/16 at 02:00 Acetaminophen/ Hydrocodone Bitart ([place] (10/325)) 1 tab Q4H PRN PO PAIN LEVEL 6-10 Last administered on 10/21/16 11:52; Admin Dose 1 TAB; Start 10/18/16 at 22:30 Miscellaneous Information 1 ea NOTE XX ; Start 10/18/16 at 22:30 Glucose (Glutose) 15 gm Q15M PRN PO DECREASED GLUCOSE; Start 10/18/16 at 22:30 Glucose (Glutose) 22.5 gm Q15M PRN PO DECREASED GLUCOSE; Start 10/18/16 at 22: 30 Dextrose (D50w Syringe) 25 ml Q15M PRN IV DECREASED GLUCOSE; Start 10/18/16 at 22:30 Dextrose (D50w Syringe) 50 ml Q15M PRN IV DECREASED GLUCOSE; Start 10/18/16 at 22:30 Glucagon (Glucagen) 1 mg Q15M PRN IM DECREASED GLUCOSE; Start 10/18/16 at 22:30 Glucose (Glutose) 15 gm Q15M PRN BUCCAL DECREASED GLUCOSE; Start 10/18/16 at 22 :30 Morphine Sulfate (morphine) 2 mg Q3H PRN IV PAIN Last administered on 03:49; Admin Dose 2 MG; Start 10/19/16 at 19:30 Acetaminophen/ Hydrocodone Bitart ([place] (5/325)) 1 tab Q4H PRN PO PAIN LEVEL 1 -5; Start 10/19/16 at 19:30 Acetaminophen/ Hydrocodone Bitart ([place] (5/325)) 2 tab Q6H PRN PO PAIN LEVEL 6 -10 Last administered on 10/21/16 02:44; Admin Dose 2 TAB; Start 10/19/16 at 19 :30 Linezolid (Zyvox) 600 mg BID PO Last administered on 10/21/16 08:47; Admin Dose 600 MG; Start 10/20/16 at 12:15 Aspirin (Halfprin) 81 mg DAILY PO ; Start 10/22/16 at 09:00 DARLENE MCKEE NP Oct 21, 2016 12:58
--- NOTE | 2016-10-21 18:07 | PN ---
Date/Time of Note Date/Time of Note DATE: 10/21/16 TIME: 18:00 Assessment/Plan VTE Prophylaxis VTE Prophylaxis Intervention: heparin Lines/Catheters IV Catheter Type (from Nrs): Permacath Urinary Cath still in place: No Assessment/Plan Chief Complaint/Hosp Course S: 10/19 Events noted. In surgery. 10/20 Failed revascularization. daughter updated. for amputation. no distress. + cough/ atypical cp at rest, improved sitting up. 10/21 pain worse with movement but otherwise he feels ok. No distress. O: Vss PE: no pallor/jvd s1s2 reg; no m/r/g ctab bs+ nt nd; no r/r/g ext- no edema; poor pulses; lt 1st/2nd toe gangrene. rt-toe dusky. Wound vac in place. A/P: 1. Lt lower ext gangrene w PAD. ho angio/bypass. Failed redo bypass/heparin gtt. Stable treat pain. -Pending amputation. May proceed from medical standpoint. Cardiac periop eval in process. 2. Esrd 3. Htn/dm/metabolic syndrome. 4. Anemia 5. Past tobacco 6. Additionally, rt lwr ext dry gangrene.-for angiogram on Tuesday. 7. Possible past alcoholism. 8. Pneumonia vs atelectasis. No hypoxia; may proceed to surgery. 9. Possible cad 10. PAD 11. DM 12. Cellulitis/DFI, appreciate ID eval Problems: Exam/Review of Systems Vital Signs Vitals Vital Signs Date Time Temp Pulse Resp B/P Pulse Ox O2 Delivery O2 Flow Rate FiO2 10/21/16 17:20 72 10/21/16 16:50 18 10/21/16 14:22 98.1 143/63 95 10/21/16 12:00 Room Air 10/20/16 20:00 2.0 Intake and Output 10/20/16 10/20/16 10/21/16 15:00 23:00 07:00 Intake Total 310 ml 290 ml 225 ml Output Total 0 ml 0 ml Balance 310 ml 290 ml 225 ml Results Result Diagram: 10/20/16 0610 10/20/16 0610 Results 24 hrs Laboratory Tests Test 10/20/16 21:29 10/21/16 00:41 10/21/16 08:17 10/21/16 11:53 Bedside Glucose 150 146 82 130 Medications Medications Current Medications Metoprolol Tartrate (Lopressor) 25 mg BID PO Last administered on 10/21/16 08: 47; Admin Dose 25 MG; Start 10/18/16 at 19:21 Amlodipine Besylate (Norvasc) 10 mg DAILY PO Last administered on 10/21/16 08: 47; Admin Dose 10 MG; Start 10/19/16 at 09:00 Hydralazine HCl (Apresoline) 10 mg Q4H PRN IV SBP>150 mm Hg Last administered on 10/18/16 20:35; Admin Dose 10 MG; Start 10/18/16 at 20:00 Albuterol (Ventolin Hfa) 2 puff Q8 INH Last administered on 10/21/16 13:21; Admin Dose 2 PUFF; Start 10/18/16 at 22:30 Famotidine (Pepcid) 20 mg DAILY PO Last administered on 10/21/16 08:47; Admin Dose 20 MG; Start 10/19/16 at 09:00 Insulin Glargine 7 unit 7 unit DAILY@20 SC Last administered on 10/20/16 21:42 ; Admin Dose 7 UNIT; Start 10/18/16 at 22:30 Ceftriaxone Sodium (Rocephin) 50 ml @ 100 mls/hr Q24H IVPB Last administered on 10/20/16 22:15; Admin Dose 100 MLS/HR; Start 10/18/16 at 22:30 Ondansetron HCl (Zofran Inj) 4 mg Q6H PRN IV NAUSEA AND/OR VOMITING; Start at 22:30 Acetaminophen (Tylenol Tab) 650 mg Q6H PRN PO PAIN LEVEL 1-3 OR FEVER; Start at 22:30 Morphine Sulfate (morphine) 2 mg Q4H PRN IV SEVERE PAIN LEVEL 7-10 Last administered on 10/19/16 23:38; Admin Dose 2 MG; Start 10/18/16 at 22:30 Docusate Sodium (Colace) 100 mg Q12H PRN PO CONSTIPATION; Start 10/18/16 at 22: 30 Bisacodyl (Dulcolax Supp) 10 mg DAILY PRN [place] CONSTIPATION; Start 10/18/16 at 22 :30 Diagnostic Test (Pha) (Accucheck) 1 ea 02 XX Last administered on 10/21/16 00: 45; Admin Dose 1 EA; Start 10/19/16 at 02:00 Acetaminophen/ Hydrocodone Bitart ([place] (10/325)) 1 tab Q4H PRN PO PAIN LEVEL 6-10 Last administered on 10/21/16 11:52; Admin Dose 1 TAB; Start 10/18/16 at 22:30 Miscellaneous Information 1 ea NOTE XX ; Start 10/18/16 at 22:30 Glucose (Glutose) 15 gm Q15M PRN PO DECREASED GLUCOSE; Start 10/18/16 at 22:30 Glucose (Glutose) 22.5 gm Q15M PRN PO DECREASED GLUCOSE; Start 10/18/16 at 22: 30 Dextrose (D50w Syringe) 25 ml Q15M PRN IV DECREASED GLUCOSE; Start 10/18/16 at 22:30 Dextrose (D50w Syringe) 50 ml Q15M PRN IV DECREASED GLUCOSE; Start 10/18/16 at 22:30 Glucagon (Glucagen) 1 mg Q15M PRN IM DECREASED GLUCOSE; Start 10/18/16 at 22:30 Glucose (Glutose) 15 gm Q15M PRN BUCCAL DECREASED GLUCOSE; Start 10/18/16 at 22 :30 Morphine Sulfate (morphine) 2 mg Q3H PRN IV PAIN Last administered on 03:49; Admin Dose 2 MG; Start 10/19/16 at 19:30 Acetaminophen/ Hydrocodone Bitart ([place] (5/325)) 1 tab Q4H PRN PO PAIN LEVEL 1 -5; Start 10/19/16 at 19:30 Acetaminophen/ Hydrocodone Bitart ([place] (5/325)) 2 tab Q6H PRN PO PAIN LEVEL 6 -10 Last administered on 10/21/16 02:44; Admin Dose 2 TAB; Start 10/19/16 at 19 :30 Linezolid (Zyvox) 600 mg BID PO Last administered on 10/21/16 08:47; Admin Dose 600 MG; Start 10/20/16 at 12:15 Aspirin (Halfprin) 81 mg DAILY PO ; Start 10/22/16 at 09:00 CAL FLORES MD Oct 21, 2016 18:07
--- NOTE | 2016-10-21 18:14 | PN ---
Date/Time of Note Date/Time of Note DATE: 10/21/16 TIME: 18:05 Assessment/Plan Lines/Catheters IV Catheter Type (from [facility]): Permacath Correa in Place (from [facility]): No Assessment/Plan Chief Complaint/Hosp Course -Bilateral lower extremity atherosclerosis with gangrene: It seems that the patient's left lower extremity redo revascularization has thrombosed despite being on heparin gtt. Unfortunately, no benefit for re-exploration and thrombectomy as the graft has thrombosed in such short time and while pt kept on Hep gtt overnight. I have discussed the findings with the patient given his limited conduits he will likely require a major amputation, BKA,if his rest pain in intolerable or gangrene worsens. -Right lower extremity gangrene: will schedule patient for angiogram on Tuesday -End-stage renal disease: The patient has had a history of bilateral upper extremity, chest wall catheters, and he has also undergone bilateral upper extremity venograms. The patient had been scheduled as an outpatient for eventual left upper extremity fistula creation. However, at the moment we will plan to keep his antecubital segments free of any IV lines or blood draws and will eventually plan for creation of a new fistula for him. -Optimize vascular status (BP meds, diet, nutrition, exercise, sugar control, antiplatelets). -Continue antibiotics -Continue with wound vac for now -Appreciate cardiology evaluation -Apply Betadine paint to all the incision lines for now. -Discussed findings, plan and management with the patient and family at the bedside and they understand with certified central office repairer supervisor Thank you for allowing us to participate in the care of your patient. Please call with any questions. Problems: Subjective 24 Hr Interval Summary no new vascular events overnight, some LLE discomfort Exam/Review of Systems Vital Signs Vitals Vital Signs Date Time Temp Pulse Resp B/P Pulse Ox O2 Delivery O2 Flow Rate FiO2 10/21/16 17:20 72 10/21/16 16:50 18 10/21/16 14:22 98.1 143/63 95 10/21/16 12:00 Room Air 10/20/16 20:00 2.0 Intake and Output 10/20/16 10/20/16 10/21/16 15:00 23:00 07:00 Intake Total 310 ml 290 ml 225 ml Output Total 0 ml 0 ml Balance 310 ml 290 ml 225 ml Exam Free Text/Dictation GENERAL: Alert and oriented x3, PULMONARY: Clear to auscultation bilaterally. CARDIOVASCULAR: S1, S2 present. ABDOMEN: Soft, nontender, nondistended. Bowel sounds positive. EXTREMITIES: Lower extremity: Right lower extremity palpable femoral pulse, nonpalpable pedal pulse. Motor, sensory intact. Cap refill 3 to 4 seconds. Gangrene of the first and second toe with surrounding erythema and pain of the first toe Left lower extremity: Palpable femoral pulse, nonpalpable graft at the knee. no Dopplerable signal of the graft or PT signal. He does have some edema that is 1+. dry Gangrene of the first and second toe with demarcation. His capillary refill 3-4 seconds. Wound vac intact, Dressing removed for evaluation. [place] intact and dry Results Result Diagram: 10/20/16 0610 10/20/16 0610 CYNDI CARR MD Oct 21, 2016 18:14
--- NOTE | 2016-10-21 18:30 | CONS ---
Date/Time of Note Date/Time of Note DATE: 10/21/16 TIME: 18:28 Assessment/Plan Assessment/Plan Additional Assessment/Plan 1. 1. Lt lower ext gangrene w PAD. ho angio/bypass. Failed redo bypass/ heparin gtt. Stable treat pain. 2. Severe stenosis of the right distal superficial femoral artery and occluded right posterior tibial artery. 3. End-stage renal disease on hemodialysis Tuesday, , Tuesday. 4. Accelerated hypertension. 5. Hyperlipidemia. 6. History of hypertension with peripheral arterial disease. 7. History of peripheral arterial disease status post left lower extremity bypass in September 2016. PLAN: s/p LE angiogram with thrombectomy, S/p HD yesterday, currently no pulse in LE --Pending amputation. . HD today then pt will be on TTS schedule will follow up Consultation Date/Type/Reason Admit Date/Time Oct 18, 2016 at 16:52 Initial Consult Date 10/19/2016 Type of Consultation: NEPHROLOGY Referring Provider: OZZIE HERRERA MD 24 HR Interval Summary Free Text/Dictation Plan for HD today Exam/Review of Systems Vital Signs Vitals Vital Signs Date Time Temp Pulse Resp B/P Pulse Ox O2 Delivery O2 Flow Rate FiO2 10/21/16 18:19 74 10/21/16 16:50 18 10/21/16 14:22 98.1 143/63 95 10/21/16 12:00 Room Air 10/20/16 20:00 2.0 Intake and Output 10/20/16 10/20/16 10/21/16 15:00 23:00 07:00 Intake Total 310 ml 290 ml 225 ml Output Total 0 ml 0 ml Balance 310 ml 290 ml 225 ml Exam GENERAL: Awake, alert, in moderate distress due to the elevated blood pressure and the pain. HEENT: Normal. Oropharynx clear. NECK: Supple, no JVD. LUNGS: Clear to auscultation. No crackles, no wheezes. HEART: S1, S2, with regular rhythm, no murmur. ABDOMEN: Soft, nontender, nondistended. Bowel sounds are present. EXTREMITIES: The patient has lower extremity gangrene. No cyanosis. Right upper chest tunneled hemodialysis catheter. NEUROLOGICAL: Alert, oriented x4. Cranial nerves II-XII intact. No focal deficits. PSYCHIATRIC: Appropriate affect and mood. Results Result Diagram: 10/20/16 0610 10/20/16 0610 Results 24 hrs Laboratory Tests Test 10/20/16 21:29 10/21/16 00:41 10/21/16 08:17 10/21/16 11:53 Bedside Glucose 150 146 82 130 Test 10/21/16 17:40 Bedside Glucose 162 Medications Medications Current Medications Metoprolol Tartrate (Lopressor) 25 mg BID PO Last administered on 10/21/16 08: 47; Admin Dose 25 MG; Start 10/18/16 at 19:21 Amlodipine Besylate (Norvasc) 10 mg DAILY PO Last administered on 10/21/16 08: 47; Admin Dose 10 MG; Start 10/19/16 at 09:00 Hydralazine HCl (Apresoline) 10 mg Q4H PRN IV SBP>150 mm Hg Last administered on 10/18/16 20:35; Admin Dose 10 MG; Start 10/18/16 at 20:00 Albuterol (Ventolin Hfa) 2 puff Q8 INH Last administered on 10/21/16 13:21; Admin Dose 2 PUFF; Start 10/18/16 at 22:30 Famotidine (Pepcid) 20 mg DAILY PO Last administered on 10/21/16 08:47; Admin Dose 20 MG; Start 10/19/16 at 09:00 Insulin Glargine 7 unit 7 unit DAILY@20 SC Last administered on 10/20/16 21:42 ; Admin Dose 7 UNIT; Start 10/18/16 at 22:30 Ceftriaxone Sodium (Rocephin) 50 ml @ 100 mls/hr Q24H IVPB Last administered on 10/20/16 22:15; Admin Dose 100 MLS/HR; Start 10/18/16 at 22:30 Ondansetron HCl (Zofran Inj) 4 mg Q6H PRN IV NAUSEA AND/OR VOMITING; Start at 22:30 Acetaminophen (Tylenol Tab) 650 mg Q6H PRN PO PAIN LEVEL 1-3 OR FEVER; Start at 22:30 Morphine Sulfate (morphine) 2 mg Q4H PRN IV SEVERE PAIN LEVEL 7-10 Last administered on 10/19/16 23:38; Admin Dose 2 MG; Start 10/18/16 at 22:30 Docusate Sodium (Colace) 100 mg Q12H PRN PO CONSTIPATION; Start 10/18/16 at 22: 30 Bisacodyl (Dulcolax Supp) 10 mg DAILY PRN [place] CONSTIPATION; Start 10/18/16 at 22 :30 Diagnostic Test (Pha) (Accucheck) 1 ea 02 XX Last administered on 10/21/16 00: 45; Admin Dose 1 EA; Start 10/19/16 at 02:00 Acetaminophen/ Hydrocodone Bitart ([place] (10/325)) 1 tab Q4H PRN PO PAIN LEVEL 6-10 Last administered on 10/21/16 11:52; Admin Dose 1 TAB; Start 10/18/16 at 22:30 Miscellaneous Information 1 ea NOTE XX ; Start 10/18/16 at 22:30 Glucose (Glutose) 15 gm Q15M PRN PO DECREASED GLUCOSE; Start 10/18/16 at 22:30 Glucose (Glutose) 22.5 gm Q15M PRN PO DECREASED GLUCOSE; Start 10/18/16 at 22: 30 Dextrose (D50w Syringe) 25 ml Q15M PRN IV DECREASED GLUCOSE; Start 10/18/16 at 22:30 Dextrose (D50w Syringe) 50 ml Q15M PRN IV DECREASED GLUCOSE; Start 10/18/16 at 22:30 Glucagon (Glucagen) 1 mg Q15M PRN IM DECREASED GLUCOSE; Start 10/18/16 at 22:30 Glucose (Glutose) 15 gm Q15M PRN BUCCAL DECREASED GLUCOSE; Start 10/18/16 at 22 :30 Morphine Sulfate (morphine) 2 mg Q3H PRN IV PAIN Last administered on 03:49; Admin Dose 2 MG; Start 10/19/16 at 19:30 Acetaminophen/ Hydrocodone Bitart ([place] (5/325)) 1 tab Q4H PRN PO PAIN LEVEL 1 -5; Start 10/19/16 at 19:30 Acetaminophen/ Hydrocodone Bitart ([place] (5/325)) 2 tab Q6H PRN PO PAIN LEVEL 6 -10 Last administered on 10/21/16 02:44; Admin Dose 2 TAB; Start 10/19/16 at 19 :30 Linezolid (Zyvox) 600 mg BID PO Last administered on 10/21/16 08:47; Admin Dose 600 MG; Start 10/20/16 at 12:15 Aspirin (Halfprin) 81 mg DAILY PO ; Start 10/22/16 at 09:00 LISA MERRITT MD Oct 21, 2016 18:30
[2016-10-21] MEDS: HEPARIN 25000 UNITS/D5W 250 ML (VPH) IV SCH (20:00)
[2016-10-21] MEDS ORDERED: HEPARIN 1000 UNITS/ML 10 ML INJ IV PRN (20:00)
[2016-10-21] MEDS: morphine 2 MG INJ IV PRN (20:08)
[2016-10-21] MEDS: INSULIN GLARGINE [LANtus] 3 ML PEN SC SCH (22:14)
[2016-10-21] MEDS: CEFTRIAXONE 1 GM/50 ML (PMX) 50 ML IVPB SCH (22:15)
[2016-10-22] MEDS: ACCU-CHEK XX SCH (02:00)
[2016-10-22] MEDS: morphine 2 MG INJ IV PRN ×3 (04:05→18:18)
[2016-10-22] MEDS: HEPARIN 25000 UNITS/D5W 250 ML (VPH) IV SCH ×2 (04:11→20:00)
[2016-10-22 05:33] LABS: ADD SCAN DIFF NO
[2016-10-22 05:49] LABS: BASOPHIL # 0.1 10^3/ul (0.0-0.1); BASOPHILS % 0.4 % (0.0-2.0); EOSINOPHILS # 0.3 10^3/ul (0.0-0.5); EOSINOPHILS % 1.9 % (0.0-7.0); HEMATOCRIT 30.9 % (42.0-52.0); HEMOGLOBIN 9.8 g/dl (14.0-18.0); LYMPHOCYTES # 2.1 10^3/ul (0.8-2.9); LYMPHOCYTES % 14.8 % (15.0-51.0); MEAN CORPUSCULAR HEMOGLOBIN 31.7 pg (29.0-33.0); MEAN CORPUSCULAR HGB CONC 31.7 g/dl (32.0-37.0); MEAN PLATELET VOLUME 11.6 fl (7.4-10.4); MONOCYTE # 1.4 10^3/ul (0.3-0.9); MONOCYTES % 9.9 % (0.0-11.0); NEUTROPHIL # 10.1 10^3/ul (1.6-7.5); NEUTROPHILS % 72.5 % (39.0-77.0); PLATELET COUNT 364 10^3/UL (140-415); RED BLOOD COUNT 3.09 10^6/ul (4.70-6.10); WHITE BLOOD COUNT 13.9 10^3/ul (4.8-10.8)
[2016-10-22] MEDS: HYDROCODONE/APAP (5/325) TAB PO PRN ×3 (05:59→22:14)
[2016-10-22] MEDS: ALBUTEROL HFA 8 GM INHALER INH SCH ×3 (05:59→21:12)
[2016-10-22 06:00] LABS: CREATININE 6.29 mg/dl (0.61-1.24)
[2016-10-22 06:01] LABS: CALCIUM 8.4 mg/dl (8.4-10.2)
[2016-10-22 07:48] VITALS: BP 131/63; RESP 18
[2016-10-22] MEDS: INSULIN ASPART [NOVOLOG] 3 ML PEN SC SCH ×4 (08:15→21:12)
[2016-10-22] MEDS: AMLODIPINE 10 MG TAB PO SCH (08:44)
[2016-10-22] MEDS: ZYVOX 600 MG TAB PO SCH ×2 (08:44→21:06)
[2016-10-22] MEDS: ASPIRIN (EC) 81 MG TAB PO SCH (08:44)
[2016-10-22] MEDS: METOPROLOL 25 MG TAB PO SCH ×2 (08:44→21:07)
[2016-10-22] MEDS: FAMOTIDINE 20 MG TAB PO SCH (08:44)
[2016-10-22] MEDS: DOCUSATE SODIUM 100 MG CAP PO PRN (08:53)
[2016-10-22 09:07] LABS: POTASSIUM 4.7 mmol/L (3.5-5.1)
--- NOTE | 2016-10-22 11:45 | CONS ---
Date/Time of Note Date/Time of Note DATE: 10/22/16 TIME: 11:45 Assessment/Plan Assessment/Plan Chief Complaint/Hosp Course SUBJECTIVE: No events overnight. no fevers. MICROBIOLOGY: Cultures have been negative. INDWELLINGS: Right IJ Perm-A-Cath. ANTIMICROBIALS: Zyvox Rocephin. ALLERGIES: VANCOMYCIN. ASSESSMENT: 1. Severe peripheral vascular disease with bilateral lower extremity gangrene, status post-surgical intervention with thrombectomy, exploration of the above knee popliteal graft and debridement of left lower extremity wound with wound VAC application on 10/19/2016. 2. End-stage renal disease, hemodialysis dependent. 3. Anemia of chronic disease. 4. DM 5. HTN Plan: Clinically unchanged, continue abx, f/u vascular rec-s, wound vac, HD DW staff Problems: Consultation Date/Type/Reason Admit Date/Time Oct 18, 2016 at 16:52 Type of Consultation: id Referring Provider: OZZIE HERRERA MD Exam/Review of Systems Vital Signs Vitals Vital Signs Date Time Temp Pulse Resp B/P Pulse Ox O2 Delivery O2 Flow Rate FiO2 10/22/16 07:48 99.3 76 18 131/63 95 10/21/16 12:00 Room Air 10/20/16 20:00 2.0 Intake and Output 10/21/16 10/21/16 10/22/16 15:00 23:00 07:00 Intake Total 240 ml 610 ml 285 ml Output Total 10 ml 3000 ml Balance 230 ml -2390 ml 285 ml Results Result Diagram: 10/22/16 0515 10/22/16 0515 Results 24 hrs Laboratory Tests Test 10/21/16 11:53 10/21/16 17:40 10/21/16 20:13 10/22/16 05:15 Bedside Glucose 130 162 165 White Blood Count 13.9 H Red Blood Count 3.09 L Hemoglobin 9.8 L Hematocrit 30.9 L Mean Corpuscular Volume 100.0 Mean Corpuscular Hemoglobin 31.7 Mean Corpuscular Hemoglobin Concent 31.7 L Red Cell Distribution Width 17.0 H Platelet Count 364 Mean Platelet Volume 11.6 H Neutrophils % 72.5 Lymphocytes % 14.8 L Monocytes % 9.9 Eosinophils % 1.9 Basophils % 0.4 Nucleated Red Blood Cells % 0.0 Neutrophils # 10.1 H Lymphocytes # 2.1 Monocytes # 1.4 H Eosinophils # 0.3 Basophils # 0.1 Nucleated Red Blood Cells # 0.0 Activated Partial Thromboplast Time 50.6 H Sodium Level 137 Potassium Level 4.7 Chloride Level 94 L Carbon Dioxide Level 29 Anion Gap 19 H Blood Urea Nitrogen 36 H Creatinine 6.29 H Glucose Level 72 Calcium Level 8.4 Test 10/22/16 08:01 Bedside Glucose 70 Medications Medications Current Medications Metoprolol Tartrate (Lopressor) 25 mg BID PO Last administered on 10/22/16 08: 44; Admin Dose 25 MG; Start 10/18/16 at 19:21 Amlodipine Besylate (Norvasc) 10 mg DAILY PO Last administered on 10/22/16 08: 44; Admin Dose 10 MG; Start 10/19/16 at 09:00 Hydralazine HCl (Apresoline) 10 mg Q4H PRN IV SBP>150 mm Hg Last administered on 10/18/16 20:35; Admin Dose 10 MG; Start 10/18/16 at 20:00 Albuterol (Ventolin Hfa) 2 puff Q8 INH Last administered on 10/22/16 05:59; Admin Dose 2 PUFF; Start 10/18/16 at 22:30 Famotidine (Pepcid) 20 mg DAILY PO Last administered on 10/22/16 08:44; Admin Dose 20 MG; Start 10/19/16 at 09:00 Insulin Glargine 7 unit 7 unit DAILY@20 SC Last administered on 10/21/16 22:14 ; Admin Dose 7 UNIT; Start 10/18/16 at 22:30 Ceftriaxone Sodium (Rocephin) 50 ml @ 100 mls/hr Q24H IVPB Last administered on 10/21/16 22:15; Admin Dose 100 MLS/HR; Start 10/18/16 at 22:30 Ondansetron HCl (Zofran Inj) 4 mg Q6H PRN IV NAUSEA AND/OR VOMITING; Start at 22:30 Acetaminophen (Tylenol Tab) 650 mg Q6H PRN PO PAIN LEVEL 1-3 OR FEVER; Start at 22:30 Morphine Sulfate (morphine) 2 mg Q4H PRN IV SEVERE PAIN LEVEL 7-10 Last administered on 10/22/16 08:53; Admin Dose 2 MG; Start 10/18/16 at 22:30 Docusate Sodium (Colace) 100 mg Q12H PRN PO CONSTIPATION Last administered on 08:53; Admin Dose 100 MG; Start 10/18/16 at 22:30 Bisacodyl (Dulcolax Supp) 10 mg DAILY PRN [place] CONSTIPATION; Start 10/18/16 at 22 :30 Diagnostic Test (Pha) (Accucheck) 1 ea 02 XX Last administered on 10/21/16 00: 45; Admin Dose 1 EA; Start 10/19/16 at 02:00 Acetaminophen/ Hydrocodone Bitart ([place] (10/325)) 1 tab Q4H PRN PO PAIN LEVEL 6-10 Last administered on 10/21/16 11:52; Admin Dose 1 TAB; Start 10/18/16 at 22:30 Miscellaneous Information 1 ea NOTE XX ; Start 10/18/16 at 22:30 Glucose (Glutose) 15 gm Q15M PRN PO DECREASED GLUCOSE; Start 10/18/16 at 22:30 Glucose (Glutose) 22.5 gm Q15M PRN PO DECREASED GLUCOSE; Start 10/18/16 at 22: 30 Dextrose (D50w Syringe) 25 ml Q15M PRN IV DECREASED GLUCOSE; Start 10/18/16 at 22:30 Dextrose (D50w Syringe) 50 ml Q15M PRN IV DECREASED GLUCOSE; Start 10/18/16 at 22:30 Glucagon (Glucagen) 1 mg Q15M PRN IM DECREASED GLUCOSE; Start 10/18/16 at 22:30 Glucose (Glutose) 15 gm Q15M PRN BUCCAL DECREASED GLUCOSE; Start 10/18/16 at 22 :30 Morphine Sulfate (morphine) 2 mg Q3H PRN IV PAIN Last administered on 03:49; Admin Dose 2 MG; Start 10/19/16 at 19:30 Acetaminophen/ Hydrocodone Bitart ([place] (5/325)) 1 tab Q4H PRN PO PAIN LEVEL 1 -5 Last administered on 10/22/16 05:59; Admin Dose 1 TAB; Start 10/19/16 at 19: 30 Acetaminophen/ Hydrocodone Bitart ([place] (5/325)) 2 tab Q6H PRN PO PAIN LEVEL 6 -10 Last administered on 10/21/16 02:44; Admin Dose 2 TAB; Start 10/19/16 at 19 :30 Linezolid (Zyvox) 600 mg BID PO Last administered on 10/22/16 08:44; Admin Dose 600 MG; Start 10/20/16 at 12:15 Aspirin 81 mg 81 mg DAILY PO Last administered on 10/22/16 08:44; Admin Dose 81 MG; Start 10/22/16 at 09:00 Heparin Sodium (Porcine) (Heparin 45327 Units/250 ml) 250 ml @ 5 mls/hr Q24H IV Last administered on 10/22/16 04:11; Admin Dose 5 MLS/HR; Start 10/21/16 at 20:00 DARLENE MCKEE NP Oct 22, 2016 11:45
--- NOTE | 2016-10-22 12:14 | CONS ---
Date/Time of Note Date/Time of Note DATE: 10/22/16 TIME: 12:11 Assessment/Plan Assessment/Plan Additional Assessment/Plan 1. 1. Lt lower ext gangrene w PAD. ho angio/bypass. Failed redo bypass/ heparin gtt. Stable treat pain. 2. Severe stenosis of the right distal superficial femoral artery and occluded right posterior tibial artery. 3. End-stage renal disease on hemodialysis Tuesday, , Tuesday. 4. Accelerated hypertension. 5. Hyperlipidemia. 6. History of hypertension with peripheral arterial disease. 7. History of peripheral arterial disease status post left lower extremity bypass in September 2016. PLAN: s/p LE angiogram with thrombectomy, S/p HD yesterday, currently no pulse in LE --Pending amputation. . HD tomorrow then pt will be on TTS schedule will follow up Consultation Date/Type/Reason Admit Date/Time Oct 18, 2016 at 16:52 Initial Consult Date 10/18/2016 Type of Consultation: NEPHROLOGY Reason for Consultation ESRD on HD Referring Provider: OZZIE HERRERA MD 24 HR Interval Summary Free Text/Dictation Plan for HD tomorrow, next week pt will have Plan for OR Exam/Review of Systems Vital Signs Vitals Vital Signs Date Time Temp Pulse Resp B/P Pulse Ox O2 Delivery O2 Flow Rate FiO2 10/22/16 07:48 99.3 76 18 131/63 95 10/21/16 12:00 Room Air 10/20/16 20:00 2.0 Intake and Output 10/21/16 10/21/16 10/22/16 15:00 23:00 07:00 Intake Total 240 ml 610 ml 285 ml Output Total 10 ml 3000 ml Balance 230 ml -2390 ml 285 ml Exam GENERAL: Awake, alert, in moderate distress due to the elevated blood pressure and the pain. HEENT: Normal. Oropharynx clear. NECK: Supple, no JVD. LUNGS: Clear to auscultation. No crackles, no wheezes. HEART: S1, S2, with regular rhythm, no murmur. ABDOMEN: Soft, nontender, nondistended. Bowel sounds are present. EXTREMITIES: The patient has lower extremity gangrene. No cyanosis. Right upper chest tunneled hemodialysis catheter. NEUROLOGICAL: Alert, oriented x4. Cranial nerves II-XII intact. No focal deficits. PSYCHIATRIC: Appropriate affect and mood. Results Result Diagram: 10/22/16 0515 10/22/16 0515 Results 24 hrs Laboratory Tests Test 10/21/16 17:40 10/21/16 20:13 10/22/16 05:15 10/22/16 08:01 Bedside Glucose 162 165 70 White Blood Count 13.9 H Red Blood Count 3.09 L Hemoglobin 9.8 L Hematocrit 30.9 L Mean Corpuscular Volume 100.0 Mean Corpuscular Hemoglobin 31.7 Mean Corpuscular Hemoglobin Concent 31.7 L Red Cell Distribution Width 17.0 H Platelet Count 364 Mean Platelet Volume 11.6 H Neutrophils % 72.5 Lymphocytes % 14.8 L Monocytes % 9.9 Eosinophils % 1.9 Basophils % 0.4 Nucleated Red Blood Cells % 0.0 Neutrophils # 10.1 H Lymphocytes # 2.1 Monocytes # 1.4 H Eosinophils # 0.3 Basophils # 0.1 Nucleated Red Blood Cells # 0.0 Activated Partial Thromboplast Time 50.6 H Sodium Level 137 Potassium Level 4.7 Chloride Level 94 L Carbon Dioxide Level 29 Anion Gap 19 H Blood Urea Nitrogen 36 H Creatinine 6.29 H Glucose Level 72 Calcium Level 8.4 Medications Medications Current Medications Metoprolol Tartrate (Lopressor) 25 mg BID PO Last administered on 10/22/16 08: 44; Admin Dose 25 MG; Start 10/18/16 at 19:21 Amlodipine Besylate (Norvasc) 10 mg DAILY PO Last administered on 10/22/16 08: 44; Admin Dose 10 MG; Start 10/19/16 at 09:00 Hydralazine HCl (Apresoline) 10 mg Q4H PRN IV SBP>150 mm Hg Last administered on 10/18/16 20:35; Admin Dose 10 MG; Start 10/18/16 at 20:00 Albuterol (Ventolin Hfa) 2 puff Q8 INH Last administered on 10/22/16 05:59; Admin Dose 2 PUFF; Start 10/18/16 at 22:30 Famotidine (Pepcid) 20 mg DAILY PO Last administered on 10/22/16 08:44; Admin Dose 20 MG; Start 10/19/16 at 09:00 Insulin Glargine 7 unit 7 unit DAILY@20 SC Last administered on 10/21/16 22:14 ; Admin Dose 7 UNIT; Start 10/18/16 at 22:30 Ceftriaxone Sodium (Rocephin) 50 ml @ 100 mls/hr Q24H IVPB Last administered on 10/21/16 22:15; Admin Dose 100 MLS/HR; Start 10/18/16 at 22:30 Ondansetron HCl (Zofran Inj) 4 mg Q6H PRN IV NAUSEA AND/OR VOMITING; Start at 22:30 Acetaminophen (Tylenol Tab) 650 mg Q6H PRN PO PAIN LEVEL 1-3 OR FEVER; Start at 22:30 Morphine Sulfate (morphine) 2 mg Q4H PRN IV SEVERE PAIN LEVEL 7-10 Last administered on 10/22/16 08:53; Admin Dose 2 MG; Start 10/18/16 at 22:30 Docusate Sodium (Colace) 100 mg Q12H PRN PO CONSTIPATION Last administered on 08:53; Admin Dose 100 MG; Start 10/18/16 at 22:30 Bisacodyl (Dulcolax Supp) 10 mg DAILY PRN [place] CONSTIPATION; Start 10/18/16 at 22 :30 Diagnostic Test (Pha) (Accucheck) 1 ea 02 XX Last administered on 10/21/16 00: 45; Admin Dose 1 EA; Start 10/19/16 at 02:00 Acetaminophen/ Hydrocodone Bitart ([place] (10/325)) 1 tab Q4H PRN PO PAIN LEVEL 6-10 Last administered on 10/21/16 11:52; Admin Dose 1 TAB; Start 10/18/16 at 22:30 Miscellaneous Information 1 ea NOTE XX ; Start 10/18/16 at 22:30 Glucose (Glutose) 15 gm Q15M PRN PO DECREASED GLUCOSE; Start 10/18/16 at 22:30 Glucose (Glutose) 22.5 gm Q15M PRN PO DECREASED GLUCOSE; Start 10/18/16 at 22: 30 Dextrose (D50w Syringe) 25 ml Q15M PRN IV DECREASED GLUCOSE; Start 10/18/16 at 22:30 Dextrose (D50w Syringe) 50 ml Q15M PRN IV DECREASED GLUCOSE; Start 10/18/16 at 22:30 Glucagon (Glucagen) 1 mg Q15M PRN IM DECREASED GLUCOSE; Start 10/18/16 at 22:30 Glucose (Glutose) 15 gm Q15M PRN BUCCAL DECREASED GLUCOSE; Start 10/18/16 at 22 :30 Morphine Sulfate (morphine) 2 mg Q3H PRN IV PAIN Last administered on 03:49; Admin Dose 2 MG; Start 10/19/16 at 19:30 Acetaminophen/ Hydrocodone Bitart ([place] (5/325)) 1 tab Q4H PRN PO PAIN LEVEL 1 -5 Last administered on 10/22/16 05:59; Admin Dose 1 TAB; Start 10/19/16 at 19: 30 Acetaminophen/ Hydrocodone Bitart ([place] (5/325)) 2 tab Q6H PRN PO PAIN LEVEL 6 -10 Last administered on 10/22/16 12:01; Admin Dose 2 TAB; Start 10/19/16 at 19 :30 Linezolid (Zyvox) 600 mg BID PO Last administered on 10/22/16 08:44; Admin Dose 600 MG; Start 10/20/16 at 12:15 Aspirin 81 mg 81 mg DAILY PO Last administered on 10/22/16 08:44; Admin Dose 81 MG; Start 10/22/16 at 09:00 Heparin Sodium (Porcine) (Heparin 48130 Units/250 ml) 250 ml @ 5 mls/hr Q24H IV Last administered on 10/22/16 04:11; Admin Dose 5 MLS/HR; Start 10/21/16 at 20:00 LISA MERRITT MD Oct 22, 2016 12:14
--- NOTE | 2016-10-22 12:23 | CONS ---
Date/Time of Note Date/Time of Note DATE: 10/22/16 TIME: 12:19 Assessment/Plan Assessment/Plan Chief Complaint/Hosp Course IMPRESSION: 1. Preoperative evaluation prior to lower extremity vascular surgery, possible amputation.-Now POD#2 s/p LLE vascular surgery with failed graft 2. Hypertension, uncontrolled. 3. Abnormal electrocardiogram, assess for acute coronary syndrome. 4. Dyslipidemia. 5. Peripheral arterial disease, status post prior revascularization. 6. Lower extremity nonhealing ulceration of the toe. 7. Possible pneumonia by chest x-ray. 8. End-stage renal disease on hemodialysis. 9. Anemia. 10. Leukocytosis. 11/ Cardiomyopathy-LVEF 40-45%-negative trop x 3 since admit Recc: -Tele -Continue norvasc/BB -Local wound care/abx's and f/u cx data -Pain control -Contineu ASA -Ongoing vascular eval and treatment with plans for eventual amputation given failed graft Problems: Consultation Date/Type/Reason Admit Date/Time Oct 18, 2016 at 16:52 Initial Consult Date Pre-op/HTN/cardiomyopathy Type of Consultation: Cardiology Referring Provider: OZZIE HERRERA MD Exam/Review of Systems Vital Signs Vitals Vital Signs Date Time Temp Pulse Resp B/P Pulse Ox O2 Delivery O2 Flow Rate FiO2 10/22/16 07:48 99.3 76 18 131/63 95 10/21/16 12:00 Room Air 10/20/16 20:00 2.0 Intake and Output 10/21/16 10/21/16 10/22/16 15:00 23:00 07:00 Intake Total 240 ml 610 ml 285 ml Output Total 10 ml 3000 ml Balance 230 ml -2390 ml 285 ml Exam Review of Systems: CONSTITUTIONAL: No fevers, chills. PULMONARY: No sob CARDIOVASCULAR: No chest pain/palpitations GASTROINTESTINAL: No nausea/vomiting. GENITOURINARY: No hematuria/dysuria. MUSCULOSKELETAL: Pain in leg/foot PSYCHIATRIC: The patient denies depression. NEUROLOGIC: No weakness Constitutional: alert Psych: no complaints Head: normocephalic ENMT: mucosa pink and moist Neck: jvd (9 cm water), supple Respiratory: clear to auscultation Cardiovascular: regular rate and rhythm Gastrointestinal: non-tender, soft Musculoskeletal: muscle tone (normal) Extremities: other (LLE s/p bypass/thrombectomy-no distal pulse) Results Result Diagram: 10/22/16 0515 10/22/16 0515 Results 24 hrs Laboratory Tests Test 10/21/16 17:40 10/21/16 20:13 10/22/16 05:15 10/22/16 08:01 Bedside Glucose 162 165 70 White Blood Count 13.9 H Red Blood Count 3.09 L Hemoglobin 9.8 L Hematocrit 30.9 L Mean Corpuscular Volume 100.0 Mean Corpuscular Hemoglobin 31.7 Mean Corpuscular Hemoglobin Concent 31.7 L Red Cell Distribution Width 17.0 H Platelet Count 364 Mean Platelet Volume 11.6 H Neutrophils % 72.5 Lymphocytes % 14.8 L Monocytes % 9.9 Eosinophils % 1.9 Basophils % 0.4 Nucleated Red Blood Cells % 0.0 Neutrophils # 10.1 H Lymphocytes # 2.1 Monocytes # 1.4 H Eosinophils # 0.3 Basophils # 0.1 Nucleated Red Blood Cells # 0.0 Activated Partial Thromboplast Time 50.6 H Sodium Level 137 Potassium Level 4.7 Chloride Level 94 L Carbon Dioxide Level 29 Anion Gap 19 H Blood Urea Nitrogen 36 H Creatinine 6.29 H Glucose Level 72 Calcium Level 8.4 Medications Medications Current Medications Metoprolol Tartrate (Lopressor) 25 mg BID PO Last administered on 10/22/16 08: 44; Admin Dose 25 MG; Start 10/18/16 at 19:21 Amlodipine Besylate (Norvasc) 10 mg DAILY PO Last administered on 10/22/16 08: 44; Admin Dose 10 MG; Start 10/19/16 at 09:00 Hydralazine HCl (Apresoline) 10 mg Q4H PRN IV SBP>150 mm Hg Last administered on 10/18/16 20:35; Admin Dose 10 MG; Start 10/18/16 at 20:00 Albuterol (Ventolin Hfa) 2 puff Q8 INH Last administered on 10/22/16 05:59; Admin Dose 2 PUFF; Start 10/18/16 at 22:30 Famotidine (Pepcid) 20 mg DAILY PO Last administered on 10/22/16 08:44; Admin Dose 20 MG; Start 10/19/16 at 09:00 Insulin Glargine 7 unit 7 unit DAILY@20 SC Last administered on 10/21/16 22:14 ; Admin Dose 7 UNIT; Start 10/18/16 at 22:30 Ceftriaxone Sodium (Rocephin) 50 ml @ 100 mls/hr Q24H IVPB Last administered on 10/21/16 22:15; Admin Dose 100 MLS/HR; Start 10/18/16 at 22:30 Ondansetron HCl (Zofran Inj) 4 mg Q6H PRN IV NAUSEA AND/OR VOMITING; Start at 22:30 Acetaminophen (Tylenol Tab) 650 mg Q6H PRN PO PAIN LEVEL 1-3 OR FEVER; Start at 22:30 Morphine Sulfate (morphine) 2 mg Q4H PRN IV SEVERE PAIN LEVEL 7-10 Last administered on 10/22/16 08:53; Admin Dose 2 MG; Start 10/18/16 at 22:30 Docusate Sodium (Colace) 100 mg Q12H PRN PO CONSTIPATION Last administered on 08:53; Admin Dose 100 MG; Start 10/18/16 at 22:30 Bisacodyl (Dulcolax Supp) 10 mg DAILY PRN [place] CONSTIPATION; Start 10/18/16 at 22 :30 Diagnostic Test (Pha) (Accucheck) 1 ea 02 XX Last administered on 10/21/16 00: 45; Admin Dose 1 EA; Start 10/19/16 at 02:00 Acetaminophen/ Hydrocodone Bitart ([place] (10/325)) 1 tab Q4H PRN PO PAIN LEVEL 6-10 Last administered on 10/21/16 11:52; Admin Dose 1 TAB; Start 10/18/16 at 22:30 Miscellaneous Information 1 ea NOTE XX ; Start 10/18/16 at 22:30 Glucose (Glutose) 15 gm Q15M PRN PO DECREASED GLUCOSE; Start 10/18/16 at 22:30 Glucose (Glutose) 22.5 gm Q15M PRN PO DECREASED GLUCOSE; Start 10/18/16 at 22: 30 Dextrose (D50w Syringe) 25 ml Q15M PRN IV DECREASED GLUCOSE; Start 10/18/16 at 22:30 Dextrose (D50w Syringe) 50 ml Q15M PRN IV DECREASED GLUCOSE; Start 10/18/16 at 22:30 Glucagon (Glucagen) 1 mg Q15M PRN IM DECREASED GLUCOSE; Start 10/18/16 at 22:30 Glucose (Glutose) 15 gm Q15M PRN BUCCAL DECREASED GLUCOSE; Start 10/18/16 at 22 :30 Morphine Sulfate (morphine) 2 mg Q3H PRN IV PAIN Last administered on 03:49; Admin Dose 2 MG; Start 10/19/16 at 19:30 Acetaminophen/ Hydrocodone Bitart ([place] (5/325)) 1 tab Q4H PRN PO PAIN LEVEL 1 -5 Last administered on 10/22/16 05:59; Admin Dose 1 TAB; Start 10/19/16 at 19: 30 Acetaminophen/ Hydrocodone Bitart ([place] (5/325)) 2 tab Q6H PRN PO PAIN LEVEL 6 -10 Last administered on 10/22/16 12:01; Admin Dose 2 TAB; Start 10/19/16 at 19 :30 Linezolid (Zyvox) 600 mg BID PO Last administered on 10/22/16 08:44; Admin Dose 600 MG; Start 10/20/16 at 12:15 Aspirin 81 mg 81 mg DAILY PO Last administered on 10/22/16 08:44; Admin Dose 81 MG; Start 10/22/16 at 09:00 Heparin Sodium (Porcine) (Heparin 78284 Units/250 ml) 250 ml @ 5 mls/hr Q24H IV Last administered on 10/22/16 04:11; Admin Dose 5 MLS/HR; Start 10/21/16 at 20:00 KAYLEE WILSON 24, 2017 12:23
--- NOTE | 2016-10-22 16:13 | PN ---
Date/Time of Note Date/Time of Note DATE: 10/22/16 TIME: 16:11 Assessment/Plan VTE Prophylaxis VTE Prophylaxis Intervention: heparin Lines/Catheters IV [facility]ter Type [facility]from [facility] [place] [facility] Urinary Cath still in place: No Assessment/Plan Chief Complaint/Hosp Course S: 10/19 Events noted. In surgery. 10/20 Failed revascularization. daughter updated. for amputation. no distress. + cough/ atypical cp at rest, improved sitting up. 10/21 pain worse w movement but otherwise he feels ok. No distress. 10/22 no events O: Vss PE: no pallor/jvd s1s2 reg; no m/r/g ctab bs+ nt nd; no r/r/g ext- no edema; poor pulses; lt 1st/2nd toe gangrene. rt-toe dusky. Wound vac in place. A/P: 1. Lt lwr ext gangrene w PAD. ho angio/bypass. Failed redo bypass/heparin gtt. Stable treat pain. -Pending amputation? May proceed from medical standpoint. 2. Esrd 3. Htn/dm/metabolic syndrome. 4. Anemia 5. Past tobacco 6. Additionally, rt lwr ext dry gangrene.-for angiogram on Tuesday. 7. Possible past alcoholism. 8. Pneumonia vs atelectasis. No hypoxia; may proceed to surgery. 9. Possible cad 10. PAD 11. DM 12. Cellulitis/DFI, appreciate ID eval Problems: Exam/Review of Systems Vital Signs Vitals Vital Signs Date Time Temp Pulse Resp B/P Pulse Ox O2 Delivery O2 Flow Rate FiO2 10/22/16 07:48 99.3 76 18 131/63 95 10/21/16 12:00 Room Air 10/20/16 20:00 2.0 Intake and Output 10/21/16 10/21/16 10/22/16 15:00 23:00 07:00 Intake Total 240 ml 610 ml 285 ml Output Total 10 ml 3000 ml Balance 230 ml -2390 ml 285 ml Results Result Diagram: 10/22/16 0515 10/22/16 0515 Results 24 hrs Laboratory Tests Test 10/21/16 17:40 10/21/16 20:13 10/22/16 05:15 10/22/16 08:01 Bedside Glucose 162 165 70 White Blood Count 13.9 H Red Blood Count 3.09 L Hemoglobin 9.8 L Hematocrit 30.9 L Mean Corpuscular Volume 100.0 Mean Corpuscular Hemoglobin 31.7 Mean Corpuscular Hemoglobin Concent 31.7 L Red Cell Distribution Width 17.0 H Platelet Count 364 Mean Platelet Volume 11.6 H Neutrophils % 72.5 Lymphocytes % 14.8 L Monocytes % 9.9 Eosinophils % 1.9 Basophils % 0.4 Nucleated Red Blood Cells % 0.0 Neutrophils # 10.1 H Lymphocytes # 2.1 Monocytes # 1.4 H Eosinophils # 0.3 Basophils # 0.1 Nucleated Red Blood Cells # 0.0 Activated Partial Thromboplast Time 50.6 H Sodium Level 137 Potassium Level 4.7 Chloride Level 94 L Carbon Dioxide Level 29 Anion Gap 19 H Blood Urea Nitrogen 36 H Creatinine 6.29 H Glucose Level 72 Calcium Level 8.4 Test 10/22/16 12:03 Bedside Glucose 112 Medications Medications Current Medications Metoprolol Tartrate (Lopressor) 25 mg BID PO Last administered on 10/22/16 08: 44; Admin Dose 25 MG; Start 10/18/16 at 19:21 Amlodipine Besylate (Norvasc) 10 mg DAILY PO Last administered on 10/22/16 08: 44; Admin Dose 10 MG; Start 10/19/16 at 09:00 Hydralazine HCl (Apresoline) 10 mg Q4H PRN IV SBP>150 mm Hg Last administered on 10/18/16 20:35; Admin Dose 10 MG; Start 10/18/16 at 20:00 Albuterol (Ventolin Hfa) 2 puff Q8 INH Last administered on 10/22/16 15:19; Admin Dose 2 PUFF; Start 10/18/16 at 22:30 Famotidine (Pepcid) 20 mg DAILY PO Last administered on 10/22/16 08:44; Admin Dose 20 MG; Start 10/19/16 at 09:00 Insulin Glargine 7 unit 7 unit DAILY@20 SC Last administered on 10/21/16 22:14 ; Admin Dose 7 UNIT; Start 10/18/16 at 22:30 Ceftriaxone Sodium (Rocephin) 50 ml @ 100 mls/hr Q24H IVPB Last administered on 10/21/16 22:15; Admin Dose 100 MLS/HR; Start 10/18/16 at 22:30 Ondansetron HCl (Zofran Inj) 4 mg Q6H PRN IV NAUSEA AND/OR VOMITING; Start at 22:30 Acetaminophen (Tylenol Tab) 650 mg Q6H PRN PO PAIN LEVEL 1-3 OR FEVER; Start at 22:30 Morphine Sulfate (morphine) 2 mg Q4H PRN IV SEVERE PAIN LEVEL 7-10 Last administered on 10/22/16 08:53; Admin Dose 2 MG; Start 10/18/16 at 22:30 Docusate Sodium (Colace) 100 mg Q12H PRN PO CONSTIPATION Last administered on 08:53; Admin Dose 100 MG; Start 10/18/16 at 22:30 Bisacodyl (Dulcolax Supp) 10 mg DAILY PRN [place] CONSTIPATION; Start 10/18/16 at 22 :30 Diagnostic Test (Pha) (Accucheck) 1 ea 02 XX Last administered on 10/21/16 00: 45; Admin Dose 1 EA; Start 10/19/16 at 02:00 Acetaminophen/ Hydrocodone Bitart ([place] (10/325)) 1 tab Q4H PRN PO PAIN LEVEL 6-10 Last administered on 10/21/16 11:52; Admin Dose 1 TAB; Start 10/18/16 at 22:30 Miscellaneous Information 1 ea NOTE XX ; Start 10/18/16 at 22:30 Glucose (Glutose) 15 gm Q15M PRN PO DECREASED GLUCOSE; Start 10/18/16 at 22:30 Glucose (Glutose) 22.5 gm Q15M PRN PO DECREASED GLUCOSE; Start 10/18/16 at 22: 30 Dextrose (D50w Syringe) 25 ml Q15M PRN IV DECREASED GLUCOSE; Start 10/18/16 at 22:30 Dextrose (D50w Syringe) 50 ml Q15M PRN IV DECREASED GLUCOSE; Start 10/18/16 at 22:30 Glucagon (Glucagen) 1 mg Q15M PRN IM DECREASED GLUCOSE; Start 10/18/16 at 22:30 Glucose (Glutose) 15 gm Q15M PRN BUCCAL DECREASED GLUCOSE; Start 10/18/16 at 22 :30 Morphine Sulfate (morphine) 2 mg Q3H PRN IV PAIN Last administered on 03:49; Admin Dose 2 MG; Start 10/19/16 at 19:30 Acetaminophen/ Hydrocodone Bitart ([place] (5/325)) 1 tab Q4H PRN PO PAIN LEVEL 1 -5 Last administered on 10/22/16 05:59; Admin Dose 1 TAB; Start 10/19/16 at 19: 30 Acetaminophen/ Hydrocodone Bitart ([place] (5/325)) 2 tab Q6H PRN PO PAIN LEVEL 6 -10 Last administered on 10/22/16 12:01; Admin Dose 2 TAB; Start 10/19/16 at 19 :30 Linezolid (Zyvox) 600 mg BID PO Last administered on 10/22/16 08:44; Admin Dose 600 MG; Start 10/20/16 at 12:15 Aspirin 81 mg 81 mg DAILY PO Last administered on 10/22/16 08:44; Admin Dose 81 MG; Start 10/22/16 at 09:00 Heparin Sodium (Porcine) (Heparin [id number] Units/250 ml) 250 ml @ 5 mls/hr Q24H IV Last administered on 10/22/16 04:11; Admin Dose 5 MLS/HR; Start 10/21/16 at 20:00 CAL FLORES MD Oct 22, 2016 16:13
[2016-10-22 19:45] VITALS: BP 135/59; RESP 20
[2016-10-22] MEDS: SENNA/DOCUSATE NA (8.6MG/50MG) TAB PO SCH (21:06)
[2016-10-22] MEDS: LACTOBACILLUS CHEW TAB PO SCH (21:07)
[2016-10-22] MEDS: INSULIN GLARGINE [LANtus] 3 ML PEN SC SCH (21:11)
[2016-10-22] MEDS: CEFTRIAXONE 1 GM/50 ML (PMX) 50 ML IVPB SCH (22:14)
[2016-10-23] VITALS (9 sets, daily range): BP systolic 127–151; BP diastolic 51–68; PULSE 72–82; RESP 18
[2016-10-23] MEDS: ACCU-CHEK XX SCH (02:19)
[2016-10-23] MEDS: HEPARIN 25000 UNITS/D5W 250 ML (VPH) IV SCH ×2 (04:39→20:00)
[2016-10-23] MEDS: morphine 2 MG INJ IV PRN ×3 (04:42→20:59)
[2016-10-23 06:03] LABS: ADD SCAN DIFF NO
[2016-10-23 06:07] LABS: ABNORMAL IP MESSAGE 1; BASOPHIL # 0.1 10^3/ul (0.0-0.1); BASOPHILS % 0.3 % (0.0-2.0); EOSINOPHILS # 0.2 10^3/ul (0.0-0.5); EOSINOPHILS % 1.4 % (0.0-7.0); HEMOGLOBIN 9.2 g/dl (14.0-18.0); LYMPHOCYTES # 2.1 10^3/ul (0.8-2.9); LYMPHOCYTES % 12.5 % (15.0-51.0); MEAN CORPUSCULAR HEMOGLOBIN 31.8 pg (29.0-33.0); MEAN CORPUSCULAR HGB CONC 31.7 g/dl (32.0-37.0); MEAN CORPUSCULAR VOLUME 100.3 fl (82.0-101.0); MEAN PLATELET VOLUME 11.8 fl (7.4-10.4); MONOCYTE # 1.6 10^3/ul (0.3-0.9); MONOCYTES % 9.5 % (0.0-11.0); NEUTROPHIL # 12.9 10^3/ul (1.6-7.5); NEUTROPHILS % 75.8 % (39.0-77.0); PLATELET COUNT 344 10^3/UL (140-415); RED BLOOD COUNT 2.89 10^6/ul (4.70-6.10); RED CELL DISTRIBUTION WIDTH 16.7 % (11.5-14.5); WHITE BLOOD COUNT 17.1 10^3/ul (4.8-10.8)
[2016-10-23] MEDS: ALBUTEROL HFA 8 GM INHALER INH SCH ×3 (06:19→22:22)
[2016-10-23 06:26] LABS: POTASSIUM 5.7 mmol/L (3.5-5.1)
[2016-10-23 06:28] LABS: CREATININE 8.45 mg/dl (0.61-1.24)
[2016-10-23 06:29] LABS: CALCIUM 8.3 mg/dl (8.4-10.2)
[2016-10-23] MEDS: HYDROCODONE/APAP (5/325) TAB PO PRN ×2 (08:07→14:24)
[2016-10-23] MEDS: INSULIN ASPART [NOVOLOG] 3 ML PEN SC SCH ×4 (08:15→21:00)
[2016-10-23] MEDS: ASPIRIN (EC) 81 MG TAB PO SCH (09:00)
[2016-10-23] MEDS: FAMOTIDINE 20 MG TAB PO SCH (09:00)
[2016-10-23] MEDS: ZYVOX 600 MG TAB PO SCH ×2 (09:00→20:58)
[2016-10-23] MEDS: LACTOBACILLUS CHEW TAB PO SCH ×2 (09:00→20:58)
[2016-10-23] MEDS: AMLODIPINE 10 MG TAB PO SCH (09:00)
[2016-10-23] MEDS: METOPROLOL 25 MG TAB PO SCH ×2 (09:00→20:59)
--- NOTE | 2016-10-23 12:38 | PN ---
Date/Time of Note Date/Time of Note DATE: 10/23/16 TIME: 12:36 Assessment/Plan VTE Prophylaxis VTE Prophylaxis Intervention: other Lines/Catheters IV Catheter Type (from [facility]): Urinary Cath still in place: No Assessment/Plan Chief Complaint/Hosp Course Chief Complaint/Hosp Course -Bilateral lower extremity atherosclerosis with gangrene: It seems that the patient's left lower extremity redo revascularization has thrombosed despite being on heparin gtt. Unfortunately, no benefit for re-exploration and thrombectomy as the graft has thrombosed in such short time and while pt kept on Hep gtt overnight. I have discussed the findings with the patient given his limited conduits he will likely require a major amputation, BKA,if his rest pain in intolerable or gangrene worsens. -Right lower extremity gangrene: will schedule patient for angiogram on Tuesday -End-stage renal disease: The patient has had a history of bilateral upper extremity, chest wall catheters, and he has also undergone bilateral upper extremity venograms. The patient had been scheduled as an outpatient for eventual left upper extremity fistula creation. However, at the moment we will plan to keep his antecubital segments free of any IV lines or blood draws and will eventually plan for creation of a new fistula for him. -Optimize vascular status (BP meds, diet, nutrition, exercise, sugar control, antiplatelets). -Continue antibiotics -Continue with wound vac for now -Appreciate cardiology evaluation -Apply Betadine paint to all the incision lines for now. Thank you for allowing us to participate in the care of your patient. Please call with any questions. Problems: Subjective 24 Hr Interval Summary Free Text/Dictation Pt On HD Gastrointestinal: no complaints Genitourinary: no complaints Musculoskeletal: no complaints Exam/Review of Systems Vital Signs Vitals Vital Signs Date Time Temp Pulse Resp B/P Pulse Ox O2 Delivery O2 Flow Rate FiO2 10/23/16 12:00 72 10/23/16 09:30 20 10/23/16 07:43 100.0 138/65 95 10/21/16 12:00 Room Air 10/20/16 20:00 2.0 Intake and Output 10/22/16 10/22/16 10/23/16 15:00 23:00 07:00 Intake Total 710 ml 182.5 ml Output Total 50 ml Balance 710 ml 132.5 ml Exam Neck: non-tender, supple Respiratory: clear to auscultation, normal air movement Cardiovascular: nl pulses, regular rate and rhythm Gastrointestinal: nl liver, spleen, non-tender, soft Additional Comments EXTREMITIES: Lower extremity: Right lower extremity palpable femoral pulse, nonpalpable pedal pulse. Motor, sensory intact. Cap refill 3 to 4 seconds. Gangrene of the first and second toe with surrounding erythema and pain of the first toe Left lower extremity: Palpable femoral pulse, nonpalpable graft at the knee. no Dopplerable signal of the graft or PT signal. He does have some edema that is 1+. dry Gangrene of the first and second toe with demarcation. His capillary refill 3-4 seconds. Wound vac intact, Dressing removed for evaluation. Ranger intact and dry Results Result Diagram: 10/23/16 0504 10/23/16 0504 Results 24 hrs Laboratory Tests Test 10/22/16 16:58 10/22/16 21:05 10/23/16 02:19 10/23/16 05:04 Bedside Glucose 114 198 122 White Blood Count 17.1 #H Red Blood Count 2.89 L Hemoglobin 9.2 L Hematocrit 29.0 L Mean Corpuscular Volume 100.3 Mean Corpuscular Hemoglobin 31.8 Mean Corpuscular Hemoglobin Concent 31.7 L Red Cell Distribution Width 16.7 H Platelet Count 344 Mean Platelet Volume 11.8 H Neutrophils % 75.8 Lymphocytes % 12.5 L Monocytes % 9.5 Eosinophils % 1.4 Basophils % 0.3 Nucleated Red Blood Cells % 0.0 Neutrophils # 12.9 H Lymphocytes # 2.1 Monocytes # 1.6 H Eosinophils # 0.2 Basophils # 0.1 Nucleated Red Blood Cells # 0.0 Sodium Level 133 L Potassium Level 5.7 H Chloride Level 92 L Carbon Dioxide Level 26 Anion Gap 21 H Blood Urea Nitrogen 56 H Creatinine 8.45 #H Glucose Level 97 Calcium Level 8.3 L Test 10/23/16 08:09 10/23/16 12:02 Bedside Glucose 94 146 Medications Medications Current Medications Metoprolol Tartrate (Lopressor) 25 mg BID PO Last administered on 10/22/16 21: 07; Admin Dose 25 MG; Start 10/18/16 at 19:21 Amlodipine Besylate (Norvasc) 10 mg DAILY PO Last administered on 10/22/16 08: 44; Admin Dose 10 MG; Start 10/19/16 at 09:00 Hydralazine HCl (Apresoline) 10 mg Q4H PRN IV SBP>150 mm Hg Last administered on 10/18/16 20:35; Admin Dose 10 MG; Start 10/18/16 at 20:00 Albuterol (Ventolin Hfa) 2 puff Q8 INH Last administered on 10/23/16 06:19; Admin Dose 2 PUFF; Start 10/18/16 at 22:30 Famotidine (Pepcid) 20 mg DAILY PO Last administered on 10/22/16 08:44; Admin Dose 20 MG; Start 10/19/16 at 09:00 Insulin Glargine 7 unit 7 unit DAILY@20 SC Last administered on 10/22/16 21:11 ; Admin Dose 7 UNIT; Start 10/18/16 at 22:30 Ceftriaxone Sodium (Rocephin) 50 ml @ 100 mls/hr Q24H IVPB Last administered on 10/22/16 22:14; Admin Dose 100 MLS/HR; Start 10/18/16 at 22:30 Ondansetron HCl (Zofran Inj) 4 mg Q6H PRN IV NAUSEA AND/OR VOMITING; Start at 22:30 Acetaminophen (Tylenol Tab) 650 mg Q6H PRN PO PAIN LEVEL 1-3 OR FEVER; Start at 22:30 Morphine Sulfate (morphine) 2 mg Q4H PRN IV SEVERE PAIN LEVEL 7-10 Last administered on 10/23/16 11:22; Admin Dose 2 MG; Start 10/18/16 at 22:30 Docusate Sodium (Colace) 100 mg Q12H PRN PO CONSTIPATION Last administered on 08:53; Admin Dose 100 MG; Start 10/18/16 at 22:30 Bisacodyl (Dulcolax Supp) 10 mg DAILY PRN [place] CONSTIPATION; Start 10/18/16 at 22 :30 Diagnostic Test (Pha) (Accucheck) 1 ea 02 XX Last administered on 10/23/16 02: 19; Admin Dose 1 EA; Start 10/19/16 at 02:00 Acetaminophen/ Hydrocodone Bitart ([place] (10/325)) 1 tab Q4H PRN PO PAIN LEVEL 6-10 Last administered on 10/21/16 11:52; Admin Dose 1 TAB; Start 10/18/16 at 22:30 Miscellaneous Information 1 ea NOTE XX ; Start 10/18/16 at 22:30 Glucose (Glutose) 15 gm Q15M PRN PO DECREASED GLUCOSE; Start 10/18/16 at 22:30 Glucose (Glutose) 22.5 gm Q15M PRN PO DECREASED GLUCOSE; Start 10/18/16 at 22: 30 Dextrose (D50w Syringe) 25 ml Q15M PRN IV DECREASED GLUCOSE; Start 10/18/16 at 22:30 Dextrose (D50w Syringe) 50 ml Q15M PRN IV DECREASED GLUCOSE; Start 10/18/16 at 22:30 Glucagon (Glucagen) 1 mg Q15M PRN IM DECREASED GLUCOSE; Start 10/18/16 at 22:30 Glucose (Glutose) 15 gm Q15M PRN BUCCAL DECREASED GLUCOSE; Start 10/18/16 at 22 :30 Morphine Sulfate (morphine) 2 mg Q3H PRN IV PAIN Last administered on 03:49; Admin Dose 2 MG; Start 10/19/16 at 19:30 Acetaminophen/ Hydrocodone Bitart ([place] (5/325)) 1 tab Q4H PRN PO PAIN LEVEL 1 -5 Last administered on 10/22/16 05:59; Admin Dose 1 TAB; Start 10/19/16 at 19: 30 Acetaminophen/ Hydrocodone Bitart ([place] (5/325)) 2 tab Q6H PRN PO PAIN LEVEL 6 -10 Last administered on 10/23/16 08:07; Admin Dose 2 TAB; Start 10/19/16 at 19 :30 Linezolid (Zyvox) 600 mg BID PO Last administered on 10/22/16 21:06; Admin Dose 600 MG; Start 10/20/16 at 12:15 Aspirin 81 mg 81 mg DAILY PO Last administered on 10/22/16 08:44; Admin Dose 81 MG; Start 10/22/16 at 09:00 Heparin Sodium (Porcine) (Heparin 07440 Units/250 ml) 250 ml @ 5 mls/hr Q24H IV Last administered on 10/23/16 04:39; Admin Dose 5 MLS/HR; Start 10/21/16 at 20:00 Lactobacillus Acidoph/Bulgaricus (Floranex) 1 tab BID PO Last administered on 21:07; Admin Dose 1 TAB; Start 10/22/16 at 21:00 Senna/Docusate Sodium (Senokot-S) 2 tab HS PO Last administered on 10/22/16 21 :06; Admin Dose 2 TAB; Start 10/22/16 at 21:00 EMILY WALSH MD Oct 23, 2016 12:37
--- NOTE | 2016-10-23 13:19 | CONS ---
Date/Time of Note Date/Time of Note DATE: 10/23/16 TIME: 13:18 Assessment/Plan Assessment/Plan Additional Assessment/Plan 1. Lt lower ext gangrene w PAD. ho angio/bypass. Failed redo bypass/heparin gtt. Stable treat pain. 2. Severe stenosis of the right distal superficial femoral artery and occluded right posterior tibial artery. 3. End-stage renal disease on hemodialysis Tuesday, , Tuesday. 4. Accelerated hypertension. 5. Hyperlipidemia. 6. History of hypertension with peripheral arterial disease. 7. History of peripheral arterial disease status post left lower extremity bypass in September 2016. PLAN: s/p LE angiogram with thrombectomy, S/p HD today, pt will be on TTS schedule will follow up Consultation Date/Type/Reason Admit Date/Time Oct 18, 2016 at 16:52 Initial Consult Date 10/18/2016 Type of Consultation: NEPHROLOGY Referring Provider: OZZIE HERRERA MD 24 HR Interval Summary Free Text/Dictation s/p HD today 2 L removed,BP stable Exam/Review of Systems Vital Signs Vitals Vital Signs Date Time Temp Pulse Resp B/P Pulse Ox O2 Delivery O2 Flow Rate FiO2 10/23/16 12:00 72 10/23/16 09:30 20 10/23/16 07:43 100.0 138/65 95 10/21/16 12:00 Room Air 10/20/16 20:00 2.0 Intake and Output 10/22/16 10/22/16 10/23/16 15:00 23:00 07:00 Intake Total 710 ml 182.5 ml Output Total 50 ml Balance 710 ml 132.5 ml Results Result Diagram: 10/23/16 0504 10/23/16 0504 Results 24 hrs Laboratory Tests Test 10/22/16 16:58 10/22/16 21:05 10/23/16 02:19 10/23/16 05:04 Bedside Glucose 114 198 122 White Blood Count 17.1 #H Red Blood Count 2.89 L Hemoglobin 9.2 L Hematocrit 29.0 L Mean Corpuscular Volume 100.3 Mean Corpuscular Hemoglobin 31.8 Mean Corpuscular Hemoglobin Concent 31.7 L Red Cell Distribution Width 16.7 H Platelet Count 344 Mean Platelet Volume 11.8 H Neutrophils % 75.8 Lymphocytes % 12.5 L Monocytes % 9.5 Eosinophils % 1.4 Basophils % 0.3 Nucleated Red Blood Cells % 0.0 Neutrophils # 12.9 H Lymphocytes # 2.1 Monocytes # 1.6 H Eosinophils # 0.2 Basophils # 0.1 Nucleated Red Blood Cells # 0.0 Sodium Level 133 L Potassium Level 5.7 H Chloride Level 92 L Carbon Dioxide Level 26 Anion Gap 21 H Blood Urea Nitrogen 56 H Creatinine 8.45 #H Glucose Level 97 Calcium Level 8.3 L Test 10/23/16 08:09 10/23/16 12:02 Bedside Glucose 94 146 Medications Medications Current Medications Metoprolol Tartrate (Lopressor) 25 mg BID PO Last administered on 10/22/16 21: 07; Admin Dose 25 MG; Start 10/18/16 at 19:21 Amlodipine Besylate (Norvasc) 10 mg DAILY PO Last administered on 10/22/16 08: 44; Admin Dose 10 MG; Start 10/19/16 at 09:00 Hydralazine HCl (Apresoline) 10 mg Q4H PRN IV SBP>150 mm Hg Last administered on 10/18/16 20:35; Admin Dose 10 MG; Start 10/18/16 at 20:00 Albuterol (Ventolin Hfa) 2 puff Q8 INH Last administered on 10/23/16 06:19; Admin Dose 2 PUFF; Start 10/18/16 at 22:30 Famotidine (Pepcid) 20 mg DAILY PO Last administered on 10/22/16 08:44; Admin Dose 20 MG; Start 10/19/16 at 09:00 Insulin Glargine 7 unit 7 unit DAILY@20 SC Last administered on 10/22/16 21:11 ; Admin Dose 7 UNIT; Start 10/18/16 at 22:30 Ceftriaxone Sodium (Rocephin) 50 ml @ 100 mls/hr Q24H IVPB Last administered on 10/22/16 22:14; Admin Dose 100 MLS/HR; Start 10/18/16 at 22:30 Ondansetron HCl (Zofran Inj) 4 mg Q6H PRN IV NAUSEA AND/OR VOMITING; Start at 22:30 Acetaminophen (Tylenol Tab) 650 mg Q6H PRN PO PAIN LEVEL 1-3 OR FEVER; Start at 22:30 Morphine Sulfate (morphine) 2 mg Q4H PRN IV SEVERE PAIN LEVEL 7-10 Last administered on 10/23/16 11:22; Admin Dose 2 MG; Start 10/18/16 at 22:30 Docusate Sodium (Colace) 100 mg Q12H PRN PO CONSTIPATION Last administered on 08:53; Admin Dose 100 MG; Start 10/18/16 at 22:30 Bisacodyl (Dulcolax Supp) 10 mg DAILY PRN [place] CONSTIPATION; Start 10/18/16 at 22 :30 Diagnostic Test (Pha) (Accucheck) 1 ea 02 XX Last administered on 10/23/16 02: 19; Admin Dose 1 EA; Start 10/19/16 at 02:00 Acetaminophen/ Hydrocodone Bitart ([place] (10/325)) 1 tab Q4H PRN PO PAIN LEVEL 6-10 Last administered on 10/21/16 11:52; Admin Dose 1 TAB; Start 10/18/16 at 22:30 Miscellaneous Information 1 ea NOTE XX ; Start 10/18/16 at 22:30 Glucose (Glutose) 15 gm Q15M PRN PO DECREASED GLUCOSE; Start 10/18/16 at 22:30 Glucose (Glutose) 22.5 gm Q15M PRN PO DECREASED GLUCOSE; Start 10/18/16 at 22: 30 Dextrose (D50w Syringe) 25 ml Q15M PRN IV DECREASED GLUCOSE; Start 10/18/16 at 22:30 Dextrose (D50w Syringe) 50 ml Q15M PRN IV DECREASED GLUCOSE; Start 10/18/16 at 22:30 Glucagon (Glucagen) 1 mg Q15M PRN IM DECREASED GLUCOSE; Start 10/18/16 at 22:30 Glucose (Glutose) 15 gm Q15M PRN BUCCAL DECREASED GLUCOSE; Start 10/18/16 at 22 :30 Morphine Sulfate (morphine) 2 mg Q3H PRN IV PAIN Last administered on 03:49; Admin Dose 2 MG; Start 10/19/16 at 19:30 Acetaminophen/ Hydrocodone Bitart ([place] (5/325)) 1 tab Q4H PRN PO PAIN LEVEL 1 -5 Last administered on 10/22/16 05:59; Admin Dose 1 TAB; Start 10/19/16 at 19: 30 Acetaminophen/ Hydrocodone Bitart ([place] (5/325)) 2 tab Q6H PRN PO PAIN LEVEL 6 -10 Last administered on 10/23/16 08:07; Admin Dose 2 TAB; Start 10/19/16 at 19 :30 Linezolid (Zyvox) 600 mg BID PO Last administered on 10/22/16 21:06; Admin Dose 600 MG; Start 10/20/16 at 12:15 Aspirin 81 mg 81 mg DAILY PO Last administered on 10/22/16 08:44; Admin Dose 81 MG; Start 10/22/16 at 09:00 Heparin Sodium (Porcine) (Heparin 93413 Units/250 ml) 250 ml @ 5 mls/hr Q24H IV Last administered on 10/23/16 04:39; Admin Dose 5 MLS/HR; Start 10/21/16 at 20:00 Lactobacillus Acidoph/Bulgaricus (Floranex) 1 tab BID PO Last administered on 21:07; Admin Dose 1 TAB; Start 10/22/16 at 21:00 Senna/Docusate Sodium (Senokot-S) 2 tab HS PO Last administered on 10/22/16 21 :06; Admin Dose 2 TAB; Start 10/22/16 at 21:00 LISA MERRITT MD Oct 23, 2016 13:19
--- NOTE | 2016-10-23 14:34 | PN ---
DATE: 10/23/2016 CARDIOLOGY FOLLOWUP SUBJECTIVE: On questioning, the patient has no complaint of chest pain or shortness of breath and t he family is at the bedside. REVIEW OF SYSTEMS: Unchanged. PHYSICAL EXAMINATION: VITAL SIGNS: Blood pressure is 138/65. The temperature is elevated to 100 degrees Fahrenheit. Oth erwise, pulse is normal at 73. NECK: JVP is not raised. Carotid pulses with normal upstrokes. CHEST: Bilaterally symmetrical. Nontender chest. HEART: PMI is localized in the fourth intercostal space. S1 and S2 are regular. A I to II/ syst olic murmur is heard. LUNGS: Clear to percussion and auscultation. ABDOMEN: Soft, nontender belly without any organomegaly. EXTREMITIES: No pedal edema. Good pedal pulses. LABORATORY DATA: So far reveal a white count of 17.1 today, which has gone up. Hemoglobin is sligh tly low at 9.2, platelet count is normal at 244,000. His chemistries reveal the potassium has gone up to 5.7. BUN and creatinine are 56 and 8.45, respectively. His IMPRESSION: 1. Peripheral arterial disease with nonhealing ulcers of the toe. 2. Cardiomyopathy with an ejection fraction of 40% to 45%. 3. Hypertension which is controlled. 4. Slight elevated temperature and elevated white count. I will leave for Dr. Paige. 5. Dyslipidemia. RECOMMENDATIONS: The same treatment from cardiac standpoint. As patient has end-stage renal diseas e and is on hemodialysis, I will leave the management of the renal insufficiency as well as the elev ated white and the fever to Dr. Paige. Dictated By: STEFANI NAVARRETE MD, RA/SIN Conf#: [id number] DID#: [id number]
--- NOTE | 2016-10-23 16:20 | PN ---
Date/Time of Note Date/Time of Note DATE: 10/23/16 TIME: 16:19 Assessment/Plan VTE Prophylaxis VTE Prophylaxis Intervention: heparin Lines/Catheters IV Catheter Type (from Nrs): Urinary Cath still in place: No Assessment/Plan Chief Complaint/Hosp Course S: 10/19 Events noted. In surgery. 10/20 Failed revascularization. daughter updated. for amputation. no distress. + cough/ atypical cp at rest, improved sitting up. 10/21 pain worse w movement but otherwise he feels ok. No distress. 10/22 no events 10/23 no events. Pending angiogram on the right and amputation on left. Pending cardiology acceptance for surgery. O: Vss PE: no pallor/jvd s1s2 reg; no m/r/g ctab bs+ nt nd; no r/r/g ext- no edema; poor pulses; lt 1st/2nd toe gangrene. rt-toe dusky. Wound vac in place. A/P: 1. Lt lwr ext gangrene w PAD. ho angio/bypass. Failed redo bypass/heparin gtt. Stable treat pain. -Pending amputation? May proceed from medical standpoint. 2. Esrd 3. Htn/dm/metabolic syndrome. 4. Anemia 5. Past tobacco 6. Additionally, rt lwr ext dry gangrene.-for angiogram on Tuesday. 7. Possible past alcoholism. 8. Pneumonia vs atelectasis. No hypoxia; may proceed to surgery. 9. Possible cad 10. PAD 11. DM 12. Cellulitis/DFI, appreciate ID eval Problems: Exam/Review of Systems Vital Signs Vitals Vital Signs Date Time Temp Pulse Resp B/P Pulse Ox O2 Delivery O2 Flow Rate FiO2 10/23/16 12:30 73 20 10/23/16 07:43 100.0 138/65 95 10/21/16 12:00 Room Air 10/20/16 20:00 2.0 Intake and Output 10/22/16 10/22/16 10/23/16 15:00 23:00 07:00 Intake Total 710 ml 182.5 ml Output Total 50 ml Balance 710 ml 132.5 ml Results Result Diagram: 10/23/16 0504 10/23/16 0504 Results 24 hrs Laboratory Tests Test 10/22/16 16:58 10/22/16 21:05 10/23/16 02:19 10/23/16 05:04 Bedside Glucose 114 198 122 White Blood Count 17.1 #H Red Blood Count 2.89 L Hemoglobin 9.2 L Hematocrit 29.0 L Mean Corpuscular Volume 100.3 Mean Corpuscular Hemoglobin 31.8 Mean Corpuscular Hemoglobin Concent 31.7 L Red Cell Distribution Width 16.7 H Platelet Count 344 Mean Platelet Volume 11.8 H Neutrophils % 75.8 Lymphocytes % 12.5 L Monocytes % 9.5 Eosinophils % 1.4 Basophils % 0.3 Nucleated Red Blood Cells % 0.0 Neutrophils # 12.9 H Lymphocytes # 2.1 Monocytes # 1.6 H Eosinophils # 0.2 Basophils # 0.1 Nucleated Red Blood Cells # 0.0 Sodium Level 133 L Potassium Level 5.7 H Chloride Level 92 L Carbon Dioxide Level 26 Anion Gap 21 H Blood Urea Nitrogen 56 H Creatinine 8.45 #H Glucose Level 97 Calcium Level 8.3 L Test 10/23/16 08:09 10/23/16 12:02 Bedside Glucose 94 146 Medications Medications Current Medications Metoprolol Tartrate (Lopressor) 25 mg BID PO Last administered on 10/22/16 21: 07; Admin Dose 25 MG; Start 10/18/16 at 19:21 Amlodipine Besylate (Norvasc) 10 mg DAILY PO Last administered on 10/22/16 08: 44; Admin Dose 10 MG; Start 10/19/16 at 09:00 Hydralazine HCl (Apresoline) 10 mg Q4H PRN IV SBP>150 mm Hg Last administered on 10/18/16 20:35; Admin Dose 10 MG; Start 10/18/16 at 20:00 Albuterol (Ventolin Hfa) 2 puff Q8 INH Last administered on 10/23/16 14:24; Admin Dose 2 PUFF; Start 10/18/16 at 22:30 Famotidine (Pepcid) 20 mg DAILY PO Last administered on 10/22/16 08:44; Admin Dose 20 MG; Start 10/19/16 at 09:00 Insulin Glargine 7 unit 7 unit DAILY@20 SC Last administered on 10/22/16 21:11 ; Admin Dose 7 UNIT; Start 10/18/16 at 22:30 Ceftriaxone Sodium (Rocephin) 50 ml @ 100 mls/hr Q24H IVPB Last administered on 10/22/16 22:14; Admin Dose 100 MLS/HR; Start 10/18/16 at 22:30 Ondansetron HCl (Zofran Inj) 4 mg Q6H PRN IV NAUSEA AND/OR VOMITING; Start at 22:30 Acetaminophen (Tylenol Tab) 650 mg Q6H PRN PO PAIN LEVEL 1-3 OR FEVER; Start at 22:30 Morphine Sulfate (morphine) 2 mg Q4H PRN IV SEVERE PAIN LEVEL 7-10 Last administered on 10/23/16 11:22; Admin Dose 2 MG; Start 10/18/16 at 22:30 Docusate Sodium (Colace) 100 mg Q12H PRN PO CONSTIPATION Last administered on 08:53; Admin Dose 100 MG; Start 10/18/16 at 22:30 Bisacodyl (Dulcolax Supp) 10 mg DAILY PRN [place] CONSTIPATION; Start 10/18/16 at 22 :30 Diagnostic Test (Pha) (Accucheck) 1 ea 02 XX Last administered on 10/23/16 02: 19; Admin Dose 1 EA; Start 10/19/16 at 02:00 Acetaminophen/ Hydrocodone Bitart ([place] (10/325)) 1 tab Q4H PRN PO PAIN LEVEL 6-10 Last administered on 10/21/16 11:52; Admin Dose 1 TAB; Start 10/18/16 at 22:30 Miscellaneous Information 1 ea NOTE XX ; Start 10/18/16 at 22:30 Glucose (Glutose) 15 gm Q15M PRN PO DECREASED GLUCOSE; Start 10/18/16 at 22:30 Glucose (Glutose) 22.5 gm Q15M PRN PO DECREASED GLUCOSE; Start 10/18/16 at 22: 30 Dextrose (D50w Syringe) 25 ml Q15M PRN IV DECREASED GLUCOSE; Start 10/18/16 at 22:30 Dextrose (D50w Syringe) 50 ml Q15M PRN IV DECREASED GLUCOSE; Start 10/18/16 at 22:30 Glucagon (Glucagen) 1 mg Q15M PRN IM DECREASED GLUCOSE; Start 10/18/16 at 22:30 Glucose (Glutose) 15 gm Q15M PRN BUCCAL DECREASED GLUCOSE; Start 10/18/16 at 22 :30 Morphine Sulfate (morphine) 2 mg Q3H PRN IV PAIN Last administered on 03:49; Admin Dose 2 MG; Start 10/19/16 at 19:30 Acetaminophen/ Hydrocodone Bitart ([place] (5/325)) 1 tab Q4H PRN PO PAIN LEVEL 1 -5 Last administered on 10/22/16 05:59; Admin Dose 1 TAB; Start 10/19/16 at 19: 30 Acetaminophen/ Hydrocodone Bitart ([place] (5/325)) 2 tab Q6H PRN PO PAIN LEVEL 6 -10 Last administered on 10/23/16 14:24; Admin Dose 2 TAB; Start 10/19/16 at 19 :30 Linezolid (Zyvox) 600 mg BID PO Last administered on 10/22/16 21:06; Admin Dose 600 MG; Start 10/20/16 at 12:15 Aspirin 81 mg 81 mg DAILY PO Last administered on 10/22/16 08:44; Admin Dose 81 MG; Start 10/22/16 at 09:00 Heparin Sodium (Porcine) (Heparin 59006 Units/250 ml) 250 ml @ 5 mls/hr Q24H IV Last administered on 10/23/16 04:39; Admin Dose 5 MLS/HR; Start 10/21/16 at 20:00 Lactobacillus Acidoph/Bulgaricus (Floranex) 1 tab BID PO Last administered on 21:07; Admin Dose 1 TAB; Start 10/22/16 at 21:00 Senna/Docusate Sodium (Senokot-S) 2 tab HS PO Last administered on 10/22/16 21 :06; Admin Dose 2 TAB; Start 10/22/16 at 21:00 CAL FLORES MD Oct 23, 2016 16:20
--- NOTE | 2016-10-23 16:47 | CONS ---
Date/Time of Note Date/Time of Note DATE: 10/23/16 TIME: 16:47 Assessment/Plan Assessment/Plan Chief Complaint/Hosp Course ID PROGRESS NOTE CURRENT ABX=> Zyvox, Ceftriaxone 24H INTERVAL SUMMARY * Sleeping => per notes failed attempt at revascularization, low grade Tmax 100.0, WBC rising today * MICROBIOLOGY: Cultures have been negative. * INDWELLINGS: Right IJ Perm-A-Cath. PHYSICAL EXAMINATION: GENERAL:VSS, NAD HEENT: Unremarkable NECK: Supple, trachea midline. CHEST: Rise symmetrical, without dyspnea on observation HEART: Pulse RRR ABDOMEN: soft EXTREMITIES: Warm -> DSG intact ID ASSESSMENT 65 yo M admit with: ASSESSMENT: 1. Severe LLEXT gangrene w/ PAD-> Hx of angio/bypass. Failed redo bypass. * Status post-surgical intervention with thrombectomy, exploration of the above knee popliteal graft and debridement of left lower extremity wound with wound VAC application on 10/19/2016. * Per notes needs amputation 2. End-stage renal disease=> HD 3. Anemia of chronic disease. 4. DM 5. HTN 6. Systolic HF w/EF of 40% to 45% 7. ?ASHD?->cards on the case for cardiac risk stratification prior to surgical amputation (-) MRSA Nares INVASIVES: PIV ABX ALLERGY: VANCO IV CURRENT ABX: Zyvox, Zosyn #1 Ceftriaxone -> DC 10/23/16 ID RECOMMENDATIONS 1. Concern of low grade temps + rising WBC => Will broaden ABX coverage to Zosyn for gangrene anaerobic + PSAR coverage 2. Watch for opportunistic infx such as yeast and/or C.Diff 3. Observe response to over the weekend on ABX -> Reassess by ID team next week . Problems: Consultation Date/Type/Reason Admit Date/Time Oct 18, 2016 at 16:52 Initial Consult Date Type of Consultation: ID Referring Provider: OZZIE HERRERA MD Exam/Review of Systems Vital Signs Vitals Vital Signs Date Time Temp Pulse Resp B/P Pulse Ox O2 Delivery O2 Flow Rate FiO2 10/23/16 12:30 73 20 10/23/16 07:43 100.0 138/65 95 10/21/16 12:00 Room Air 10/20/16 20:00 2.0 Intake and Output 10/22/16 10/22/1617 15:00 23:00 07:00 Intake Total 710 ml 182.5 ml Output Total 50 ml Balance 710 ml 132.5 ml Results Result Diagram: 10/23/16 0504 10/23/16 0504 Results 24 hrs Laboratory Tests Test 10/22/16 16:58 10/22/16 21:05 10/23/16 02:19 10/23/16 05:04 Bedside Glucose 114 198 122 White Blood Count 17.1 #H Red Blood Count 2.89 L Hemoglobin 9.2 L Hematocrit 29.0 L Mean Corpuscular Volume 100.3 Mean Corpuscular Hemoglobin 31.8 Mean Corpuscular Hemoglobin Concent 31.7 L Red Cell Distribution Width 16.7 H Platelet Count 344 Mean Platelet Volume 11.8 H Neutrophils % 75.8 Lymphocytes % 12.5 L Monocytes % 9.5 Eosinophils % 1.4 Basophils % 0.3 Nucleated Red Blood Cells % 0.0 Neutrophils # 12.9 H Lymphocytes # 2.1 Monocytes # 1.6 H Eosinophils # 0.2 Basophils # 0.1 Nucleated Red Blood Cells # 0.0 Sodium Level 133 L Potassium Level 5.7 H Chloride Level 92 L Carbon Dioxide Level 26 Anion Gap 21 H Blood Urea Nitrogen 56 H Creatinine 8.45 #H Glucose Level 97 Calcium Level 8.3 L Test 10/23/16 08:09 10/23/16 12:02 Bedside Glucose 94 146 Medications Medications Current Medications Metoprolol Tartrate (Lopressor) 25 mg BID PO Last administered on 10/22/16 21: 07; Admin Dose 25 MG; Start 10/18/16 at 19:21 Amlodipine Besylate (Norvasc) 10 mg DAILY PO Last administered on 10/22/16 08: 44; Admin Dose 10 MG; Start 10/19/16 at 09:00 Hydralazine HCl (Apresoline) 10 mg Q4H PRN IV SBP>150 mm Hg Last administered on 10/18/16 20:35; Admin Dose 10 MG; Start 10/18/16 at 20:00 Albuterol (Ventolin Hfa) 2 puff Q8 INH Last administered on 10/23/16 14:24; Admin Dose 2 PUFF; Start 10/18/16 at 22:30 Famotidine (Pepcid) 20 mg DAILY PO Last administered on 10/22/16 08:44; Admin Dose 20 MG; Start 10/19/16 at 09:00 Insulin Glargine 7 unit 7 unit DAILY@20 SC Last administered on 10/22/16 21:11 ; Admin Dose 7 UNIT; Start 10/18/16 at 22:30 Ceftriaxone Sodium (Rocephin) 50 ml @ 100 mls/hr Q24H IVPB Last administered on 10/22/16 22:14; Admin Dose 100 MLS/HR; Start 10/18/16 at 22:30 Ondansetron HCl (Zofran Inj) 4 mg Q6H PRN IV NAUSEA AND/OR VOMITING; Start at 22:30 Acetaminophen (Tylenol Tab) 650 mg Q6H PRN PO PAIN LEVEL 1-3 OR FEVER; Start at 22:30 Morphine Sulfate (morphine) 2 mg Q4H PRN IV SEVERE PAIN LEVEL 7-10 Last administered on 10/23/16 11:22; Admin Dose 2 MG; Start 10/18/16 at 22:30 Docusate Sodium (Colace) 100 mg Q12H PRN PO CONSTIPATION Last administered on 08:53; Admin Dose 100 MG; Start 10/18/16 at 22:30 Bisacodyl (Dulcolax Supp) 10 mg DAILY PRN [place] CONSTIPATION; Start 10/18/16 at 22 :30 Diagnostic Test (Pha) (Accucheck) 1 ea 02 XX Last administered on 10/23/16 02: 19; Admin Dose 1 EA; Start 10/19/16 at 02:00 Acetaminophen/ Hydrocodone Bitart ([place] (10/325)) 1 tab Q4H PRN PO PAIN LEVEL 6-10 Last administered on 10/21/16 11:52; Admin Dose 1 TAB; Start 10/18/16 at 22:30 Miscellaneous Information 1 ea NOTE XX ; Start 10/18/16 at 22:30 Glucose (Glutose) 15 gm Q15M PRN PO DECREASED GLUCOSE; Start 10/18/16 at 22:30 Glucose (Glutose) 22.5 gm Q15M PRN PO DECREASED GLUCOSE; Start 10/18/16 at 22: 30 Dextrose (D50w Syringe) 25 ml Q15M PRN IV DECREASED GLUCOSE; Start 10/18/16 at 22:30 Dextrose (D50w Syringe) 50 ml Q15M PRN IV DECREASED GLUCOSE; Start 10/18/16 at 22:30 Glucagon (Glucagen) 1 mg Q15M PRN IM DECREASED GLUCOSE; Start 10/18/16 at 22:30 Glucose (Glutose) 15 gm Q15M PRN BUCCAL DECREASED GLUCOSE; Start 10/18/16 at 22 :30 Morphine Sulfate (morphine) 2 mg Q3H PRN IV PAIN Last administered on 03:49; Admin Dose 2 MG; Start 10/19/16 at 19:30 Acetaminophen/ Hydrocodone Bitart ([place] (5/325)) 1 tab Q4H PRN PO PAIN LEVEL 1 -5 Last administered on 10/22/16 05:59; Admin Dose 1 TAB; Start 10/19/16 at 19: 30 Acetaminophen/ Hydrocodone Bitart ([place] (5/325)) 2 tab Q6H PRN PO PAIN LEVEL 6 -10 Last administered on 10/23/16 14:24; Admin Dose 2 TAB; Start 10/19/16 at 19 :30 Linezolid (Zyvox) 600 mg BID PO Last administered on 10/22/16 21:06; Admin Dose 600 MG; Start 10/20/16 at 12:15 Aspirin 81 mg 81 mg DAILY PO Last administered on 10/22/16 08:44; Admin Dose 81 MG; Start 10/22/16 at 09:00 Heparin Sodium (Porcine) (Heparin 92500 Units/250 ml) 250 ml @ 5 mls/hr Q24H IV Last administered on 10/23/16 04:39; Admin Dose 5 MLS/HR; Start 10/21/16 at 20:00 Lactobacillus Acidoph/Bulgaricus (Floranex) 1 tab BID PO Last administered on 21:07; Admin Dose 1 TAB; Start 10/22/16 at 21:00 Senna/Docusate Sodium (Senokot-S) 2 tab HS PO Last administered on 10/22/16 21 :06; Admin Dose 2 TAB; Start 10/22/16 at 21:00 CARLOS THAKUR NP Oct 23, 2016 16:47
[2016-10-23] MEDS: LACTULOSE 30ML CUP PO PRN (17:55)
[2016-10-23] MEDS ORDERED: PIPER-TAZO 3.375 GM IV (PMX) 100 ML IVPB SCH (19:30)
[2016-10-23] MEDS: SENNA/DOCUSATE NA (8.6MG/50MG) TAB PO SCH (20:59)
[2016-10-23] MEDS: INSULIN GLARGINE [LANtus] 3 ML PEN SC SCH (21:04)
[2016-10-23] MEDS: PIPER-TAZO 2.25 GM (PMX) 50 ML IVPB SCH (22:22)
[2016-10-24] MEDS: ACCU-CHEK XX SCH (02:00)
[2016-10-24] MEDS: morphine 2 MG INJ IV PRN ×4 (02:06→17:35)
[2016-10-24] MEDS: HYDROCODONE/APAP (5/325) TAB PO PRN ×3 (04:37→21:44)
[2016-10-24] MEDS: ALBUTEROL HFA 8 GM INHALER INH SCH ×3 (06:04→22:17)
[2016-10-24] MEDS: PIPER-TAZO 2.25 GM (PMX) 50 ML IVPB SCH ×3 (06:05→22:19)
[2016-10-24 07:37] VITALS: BP 122/59; RESP 18
[2016-10-24] MEDS: INSULIN ASPART [NOVOLOG] 3 ML PEN SC SCH ×4 (08:15→21:00)
[2016-10-24] MEDS: LACTULOSE 30ML CUP PO PRN ×2 (08:53→17:35)
[2016-10-24] MEDS: ASPIRIN (EC) 81 MG TAB PO SCH (08:53)
[2016-10-24] MEDS: LACTOBACILLUS CHEW TAB PO SCH ×2 (08:53→21:45)
[2016-10-24] MEDS: ZYVOX 600 MG TAB PO SCH ×2 (08:53→21:44)
[2016-10-24] MEDS: FAMOTIDINE 20 MG TAB PO SCH (08:53)
[2016-10-24] MEDS: METOPROLOL 25 MG TAB PO SCH ×2 (08:55→21:45)
[2016-10-24] MEDS: AMLODIPINE 10 MG TAB PO SCH (08:56)
[2016-10-24] MEDS: CLONIDINE 0.1 MG/24 HR PATCH TRANSDERM SCH (09:04)
--- NOTE | 2016-10-24 13:39 | PN ---
DATE: 10/24/2016 ADDENDUM MEDICATIONS: Instead of using Catapres on a p.r.n. basis, I started the patient on Catapres patch a s I could not find a Catapres p.r.n. on the EMR. Dictated By: STEFANI NAVARRETE MD, RA/SIN Conf#: [id number] DID#: [id number]
--- NOTE | 2016-10-24 13:47 | PN ---
DATE: 10/24/2016 On questioning, the patient denied any chest pain or shortness of breath. He has complaints of pain in the left foot area. EXAMINATION: VITAL SIGNS: Blood pressure is 151/68, temperature 100 degrees fahrenheit, heart rate of 84, respir atory rate 20. NECK: JVP not raised. CHEST: Bilaterally symmetrical. HEART: S1, S2 regular with a I-II/ systolic murmur. LUNGS: Clear to percussion and auscultation. ABDOMEN: Soft, nontender belly. No organomegaly. EXTREMITIES: He has gangrene of the toes, big toe and second toe on the left and the big toe on the right. LABORATORY DATA: There is no CBC today. There are no chemistries today as well. There are no new imaging studies. IMPRESSION: 1. Peripheral arterial disease with nonhealing ulcer of the toes. 2. Cardiomyopathy with ejection fraction of 40-45%. 3. Hypertension which is slightly uncontrolled today. 4. Elevated temperature, which I will leave to Dr. Paige. 5. Dyslipidemia. RECOMMENDATIONS: I recommend just Catapres on p.r.n. basis for the blood pressure; the blood pressu re is fairly well controlled, except for this morning. If blood pressure is still high, then I woul d suggest increasing the blood pressure medications. Dictated By: STEFANI NAVARRETE MD, RA/SIN Conf#: [id number] DID#: [id number]
--- NOTE | 2016-10-24 15:46 | PN ---
Date/Time of Note Date/Time of Note DATE: 10/24/16 TIME: 15:44 Assessment/Plan VTE Prophylaxis VTE Prophylaxis Intervention: heparin Lines/Catheters IV [facility] Saline Lock Urinary Cath still in place: No Assessment/Plan Chief Complaint/Hosp Course S: 10/19 Events noted. In surgery. 10/20 Failed revascularization. daughter updated. for amputation. no distress. + cough/ atypical cp at rest, improved sitting up. 10/21 pain worse w movement but otherwise he feels ok. No distress. 10/22 no events 10/23 no events. Pending angiogram on the right and amputation on left. Pending cardiology acceptance for surgery. 10/24 no events. See above. O: Vss PE: no pallor/jvd s1s2 reg; no m/r/g ctab bs+ nt nd; no r/r/g ext- no edema; poor pulses; lt 1st/2nd toe gangrene. rt-toe dusky. Wound vac in place. A/P: 1. Lt lwr ext gangrene w PAD. ho angio/bypass. Failed redo bypass/heparin gtt. Stable treat pain. -Pending amputation? May proceed from medical standpoint. 2. Esrd 3. Htn/dm/metabolic syndrome. 4. Anemia 5. Past tobacco 6. Additionally, rt lwr ext dry gangrene.-for angiogram on Tuesday. 7. Possible past alcoholism. 8. Pneumonia vs atelectasis. No hypoxia; may proceed to surgery. 9. Possible cad 10. PAD 11. DM 12. Cellulitis/DFI, appreciate ID eval Problems: Exam/Review of Systems Vital Signs Vitals Vital Signs Date Time Temp Pulse Resp B/P Pulse Ox O2 Delivery O2 Flow Rate FiO2 10/24/16 07:37 98.6 74 18 122/59 97 10/21/16 12:00 Room Air 10/20/16 20:00 2.0 Intake and Output 10/23/16 10/23/16 10/24/16 15:00 23:00 07:00 Intake Total 500 ml 550 ml 535 ml Output Total 2500 ml Balance -2000 ml 550 ml 535 ml Results Result Diagram: 10/23/16 0504 10/23/16 0504 Results 24 hrs Laboratory Tests Test 10/23/16 17:26 10/23/16 20:57 10/24/16 08:16 10/24/16 11:48 Bedside Glucose 135 138 71 120 Medications Medications Current Medications Metoprolol Tartrate (Lopressor) 25 mg BID PO Last administered on 10/24/16 08: 55; Admin Dose 25 MG; Start 10/18/16 at 19:21 Amlodipine Besylate (Norvasc) 10 mg DAILY PO Last administered on 10/24/16 08: 56; Admin Dose 10 MG; Start 10/19/16 at 09:00 Hydralazine HCl (Apresoline) 10 mg Q4H PRN IV SBP>150 mm Hg Last administered on 10/18/16 20:35; Admin Dose 10 MG; Start 10/18/16 at 20:00 Albuterol (Ventolin Hfa) 2 puff Q8 INH Last administered on 10/24/16 13:05; Admin Dose 2 PUFF; Start 10/18/16 at 22:30 Famotidine (Pepcid) 20 mg DAILY PO Last administered on 10/24/16 08:53; Admin Dose 20 MG; Start 10/19/16 at 09:00 Insulin Glargine (Lantus) 7 unit DAILY@20 SC Last administered on 10/23/16 21: 04; Admin Dose 7 UNIT; Start 10/18/16 at 22:30 Ondansetron HCl (Zofran Inj) 4 mg Q6H PRN IV NAUSEA AND/OR VOMITING; Start at 22:30 Acetaminophen (Tylenol Tab) 650 mg Q6H PRN PO PAIN LEVEL 1-3 OR FEVER; Start at 22:30 Morphine Sulfate (morphine) 2 mg Q4H PRN IV SEVERE PAIN LEVEL 7-10 Last administered on 10/24/16 13:05; Admin Dose 2 MG; Start 10/18/16 at 22:30 Docusate Sodium (Colace) 100 mg Q12H PRN PO CONSTIPATION Last administered on 08:53; Admin Dose 100 MG; Start 10/18/16 at 22:30 Bisacodyl (Dulcolax Supp) 10 mg DAILY PRN [place] CONSTIPATION; Start 10/18/16 at 22 :30 Diagnostic Test (Pha) (Accucheck) 1 ea 02 XX Last administered on 3/25/17at 02: 19; Admin Dose 1 EA; Start 10/19/16 at 02:00 Acetaminophen/ Hydrocodone Bitart ([place] (10/325)) 1 tab Q4H PRN PO PAIN LEVEL 6-10 Last administered on 10/21/16 11:52; Admin Dose 1 TAB; Start 10/18/16 at 22:30 Miscellaneous Information 1 ea NOTE XX ; Start 10/18/16 at 22:30 Glucose (Glutose) 15 gm Q15M PRN PO DECREASED GLUCOSE; Start 10/18/16 at 22:30 Glucose (Glutose) 22.5 gm Q15M PRN PO DECREASED GLUCOSE; Start 10/18/16 at 22: 30 Dextrose (D50w Syringe) 25 ml Q15M PRN IV DECREASED GLUCOSE; Start 10/18/16 at 22:30 Dextrose (D50w Syringe) 50 ml Q15M PRN IV DECREASED GLUCOSE; Start 10/18/16 at 22:30 Glucagon (Glucagen) 1 mg Q15M PRN IM DECREASED GLUCOSE; Start 10/18/16 at 22:30 Glucose (Glutose) 15 gm Q15M PRN BUCCAL DECREASED GLUCOSE; Start 10/18/16 at 22 :30 Morphine Sulfate (morphine) 2 mg Q3H PRN IV PAIN Last administered on 03:49; Admin Dose 2 MG; Start 10/19/16 at 19:30 Acetaminophen/ Hydrocodone Bitart ([place] (5/325)) 1 tab Q4H PRN PO PAIN LEVEL 1 -5 Last administered on 10/22/16 05:59; Admin Dose 1 TAB; Start 10/19/16 at 19: 30 Acetaminophen/ Hydrocodone Bitart ([place] (5/325)) 2 tab Q6H PRN PO PAIN LEVEL 6 -10 Last administered on 10/24/16 12:12; Admin Dose 2 TAB; Start 10/19/16 at 19 :30 Linezolid (Zyvox) 600 mg BID PO Last administered on 10/24/16 08:53; Admin Dose 600 MG; Start 10/20/16 at 12:15 Aspirin 81 mg 81 mg DAILY PO Last administered on 10/24/16 08:53; Admin Dose 81 MG; Start 10/22/16 at 09:00 Heparin Sodium (Porcine) (Heparin 25696 Units/250 ml) 250 ml @ 5 mls/hr Q24H IV Last administered on 10/23/16 04:39; Admin Dose 5 MLS/HR; Start 10/21/16 at 20:00 Lactobacillus Acidoph/Bulgaricus (Floranex) 1 tab BID PO Last administered on 08:53; Admin Dose 1 TAB; Start 10/22/16 at 21:00 Senna/Docusate Sodium (Senokot-S) 2 tab HS PO Last administered on 10/23/16 20 :59; Admin Dose 2 TAB; Start 10/22/16 at 21:00 Lactulose 20 gm 20 gm TID PRN PO CONSTIPATION Last administered on 10/24/16 08 :53; Admin Dose 20 GM; Start 10/23/16 at 17:30 Piperacillin Sod/ Tazobactam Sod (Zosyn 2.25gm/ 50ml (Pmx)) 50 ml @ 100 mls/hr Q8 IVPB Last administered on 10/24/16 14:10; Admin Dose 100 MLS/HR; Start at 22:00 Clonidine HCl (Catapres-Tts 1 Patch) 1 patch Q7D TRANSDERM Last administered on 10/24/16 09:04; Admin Dose 1 PATCH; Start 10/24/16 at 09:00 CAL FLORES MD Oct 24, 2016 15:46
[2016-10-24] MEDS ORDERED: ALBUTEROL HFA 8 GM INHALER INH PRN (16:00)
--- NOTE | 2016-10-24 16:25 | CONS ---
Date/Time of Note Date/Time of Note DATE: 10/24/16 TIME: 16:21 Assessment/Plan Assessment/Plan Additional Assessment/Plan 1. 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 Failed redo bypass. 2. Severe stenosis of the right distal superficial femoral artery and occluded right posterior tibial artery. 3. End-stage renal disease on hemodialysis Tuesday, , Tuesday. 4. Accelerated hypertension. 5. Hyperlipidemia. 6. History of hypertension with peripheral arterial disease. 7. History of peripheral arterial disease status post left lower extremity bypass in September 2016. PLAN: Spiking low grade fever Status post-surgical intervention with thrombectomy, exploration of the above knee popliteal graft and debridement of left lower extremity wound with wound VAC application on 10/19/2016. S/p HD yesterday pt will be on TTS schedule will follow up Consultation Date/Type/Reason Admit Date/Time Oct 18, 2016 at 16:52 Initial Consult Date 10/18/2016 Type of Consultation: NEPHROLOGY Referring Provider: OZZIE HERRERA MD 24 HR Interval Summary Free Text/Dictation S/p HD yesterday, no acute events, afebrile, BP stable Exam/Review of Systems Vital Signs Vitals Vital Signs Date Time Temp Pulse Resp B/P Pulse Ox O2 Delivery O2 Flow Rate FiO2 10/24/16 07:37 98.6 74 18 122/59 97 10/21/16 12:00 Room Air 10/20/16 20:00 2.0 Intake and Output 10/23/16 10/23/16 10/24/16 15:00 23:00 07:00 Intake Total 500 ml 550 ml 535 ml Output Total 2500 ml Balance -2000 ml 550 ml 535 ml Exam GENERALNAD HEENT: Unremarkable NECK: Supple, trachea midline. CHEST: Rise symmetrical, without dyspnea on observation HEART: Pulse RRR ABDOMEN: soft EXTREMITIES: Warm -> DSG intact Results Result Diagram: 10/23/16 0504 10/23/16 0504 Results 24 hrs Laboratory Tests Test 10/23/16 17:26 10/23/16 20:57 10/24/16 08:16 10/24/16 11:48 Bedside Glucose 135 138 71 120 Medications Medications Current Medications Metoprolol Tartrate (Lopressor) 25 mg BID PO Last administered on 10/24/16t 08: 55; Admin Dose 25 MG; Start 10/18/16 at 19:21 Amlodipine Besylate (Norvasc) 10 mg DAILY PO Last administered on 10/24/16 08: 56; Admin Dose 10 MG; Start 10/19/16 at 09:00 Hydralazine HCl (Apresoline) 10 mg Q4H PRN IV SBP>150 mm Hg Last administered on 10/18/16 20:35; Admin Dose 10 MG; Start 10/18/16 at 20:00 Albuterol (Ventolin Hfa) 2 puff Q8 INH Last administered on 10/24/16 13:05; Admin Dose 2 PUFF; Start 10/18/16 at 22:30 Famotidine (Pepcid) 20 mg DAILY PO Last administered on 10/24/16 08:53; Admin Dose 20 MG; Start 10/19/16 at 09:00 Ondansetron HCl (Zofran Inj) 4 mg Q6H PRN IV NAUSEA AND/OR VOMITING; Start at 22:30 Acetaminophen (Tylenol Tab) 650 mg Q6H PRN PO PAIN LEVEL 1-3 OR FEVER; Start at 22:30 Morphine Sulfate (morphine) 2 mg Q4H PRN IV SEVERE PAIN LEVEL 7-10 Last administered on 10/24/16 13:05; Admin Dose 2 MG; Start 10/18/16 at 22:30 Docusate Sodium (Colace) 100 mg Q12H PRN PO CONSTIPATION Last administered on 08:53; Admin Dose 100 MG; Start 10/18/16 at 22:30 Bisacodyl (Dulcolax Supp) 10 mg DAILY PRN [place] CONSTIPATION; Start 10/18/16 at 22 :30 Diagnostic Test (Pha) (Accucheck) 1 ea 02 XX Last administered on 10/23/16 02: 19; Admin Dose 1 EA; Start 10/19/16 at 02:00 Acetaminophen/ Hydrocodone Bitart ([place] (10/325)) 1 tab Q4H PRN PO PAIN LEVEL 6-10 Last administered on 10/21/16 11:52; Admin Dose 1 TAB; Start 10/18/16 at 22:30 Miscellaneous Information 1 ea NOTE XX ; Start 10/18/16 at 22:30 Glucose (Glutose) 15 gm Q15M PRN PO DECREASED GLUCOSE; Start 10/18/16 at 22:30 Glucose (Glutose) 22.5 gm Q15M PRN PO DECREASED GLUCOSE; Start 10/18/16 at 22: 30 Dextrose (D50w Syringe) 25 ml Q15M PRN IV DECREASED GLUCOSE; Start 10/18/16 at 22:30 Dextrose (D50w Syringe) 50 ml Q15M PRN IV DECREASED GLUCOSE; Start 10/18/16 at 22:30 Glucagon (Glucagen) 1 mg Q15M PRN IM DECREASED GLUCOSE; Start 10/18/16 at 22:30 Glucose (Glutose) 15 gm Q15M PRN BUCCAL DECREASED GLUCOSE; Start 10/18/16 at 22 :30 Morphine Sulfate (morphine) 2 mg Q3H PRN IV PAIN Last administered on 03:49; Admin Dose 2 MG; Start 10/19/16 at 19:30 Acetaminophen/ Hydrocodone Bitart ([place] (5/325)) 1 tab Q4H PRN PO PAIN LEVEL 1 -5 Last administered on 10/22/16 05:59; Admin Dose 1 TAB; Start 10/19/16 at 19: 30 Acetaminophen/ Hydrocodone Bitart ([place] (5/325)) 2 tab Q6H PRN PO PAIN LEVEL 6 -10 Last administered on 10/24/16 12:12; Admin Dose 2 TAB; Start 10/19/16 at 19 :30 Linezolid (Zyvox) 600 mg BID PO Last administered on 10/24/16 08:53; Admin Dose 600 MG; Start 10/20/16 at 12:15 Aspirin 81 mg 81 mg DAILY PO Last administered on 10/24/16 08:53; Admin Dose 81 MG; Start 10/22/16 at 09:00 Heparin Sodium (Porcine) (Heparin 42403 Units/250 ml) 250 ml @ 5 mls/hr Q24H IV Last administered on 10/23/16 04:39; Admin Dose 5 MLS/HR; Start 10/21/16 at 20:00 Lactobacillus Acidoph/Bulgaricus (Floranex) 1 tab BID PO Last administered on 08:53; Admin Dose 1 TAB; Start 10/22/16 at 21:00 Senna/Docusate Sodium (Senokot-S) 2 tab HS PO Last administered on 10/23/16 20 :59; Admin Dose 2 TAB; Start 10/22/16 at 21:00 Lactulose 20 gm 20 gm TID PRN PO CONSTIPATION Last administered on 10/24/16 08 :53; Admin Dose 20 GM; Start 10/23/16 at 17:30 Piperacillin Sod/ Tazobactam Sod (Zosyn 2.25gm/ 50ml (Pmx)) 50 ml @ 100 mls/hr Q8 IVPB Last administered on 10/24/16 14:10; Admin Dose 100 MLS/HR; Start at 22:00 Clonidine HCl (Catapres-Tts 1 Patch) 1 patch Q7D TRANSDERM Last administered on 10/24/16 09:04; Admin Dose 1 PATCH; Start 10/24/16 at 09:00 Insulin Glargine (Lantus) 5 unit DAILY@20 SC ; Start 10/24/16 at 20:00 LISA MERRITT MD Oct 24, 2016 16:25
--- NOTE | 2016-10-24 18:06 | PN ---
Date/Time of Note Date/Time of Note DATE: 10/24/16 TIME: 17:51 Assessment/Plan Lines/Catheters IV C[facility]ter Type (from [facility]): Saline Lock Correa in Place (from Nrs): No Assessment/Plan Chief Complaint/Hosp Course -Bilateral lower extremity atherosclerosis with gangrene: It seems that the patient's left lower extremity redo revascularization has thrombosed despite being on heparin gtt. Unfortunately, no benefit for re-exploration and thrombectomy as the graft has thrombosed in such short time and while pt kept on Hep gtt overnight. I have discussed the findings with the patient given his limited conduits he will likely require a major amputation, BKA if his rest pain in intolerable or gangrene worsens. -Right lower extremity gangrene: will schedule patient for angiogram this week pending qc lab technician availability. Fisrt available time is Tuesday -End-stage renal disease: Will eventually plan for creation of a new fistula -Optimize vascular status (BP meds, diet, nutrition, exercise, sugar control, antiplatelets). -Continue antibiotics -Continue with wound vac for now -Appreciate cardiology evaluation -Apply Betadine paint to all the incision lines for now. -Discussed findings, plan and management with the patient and family at the bedside and they understand with certified daily release and dupe printer -Thank you for allowing us to participate in the care of your patient. Please call with any questions. Problems: Subjective 24 Hr Interval Summary no new vascular events overnight, pt having LLE rest pain controlled with narcotics Exam/Review of Systems Vital Signs Vitals Vital Signs Date Time Temp Pulse Resp B/P Pulse Ox O2 Delivery O2 Flow Rate FiO2 10/24/16 07:37 98.6 74 18 122/59 97 10/21/16 12:00 Room Air 10/20/16 20:00 2.0 Intake and Output 10/23/16 10/23/16 10/24/16 15:00 23:00 07:00 Intake Total 500 ml 550 ml 535 ml Output Total 2500 ml Balance -2000 ml 550 ml 535 ml Exam Free Text/Dictation GENERAL: Alert and oriented x3, PULMONARY: Clear to auscultation bilaterally. CARDIOVASCULAR: S1, S2 present. ABDOMEN: Soft, nontender, nondistended. Bowel sounds positive. EXTREMITIES: Right lower extremity palpable femoral pulse, nonpalpable pedal pulse. Motor, sensory intact. Cap refill 3 to 4 seconds. Gangrene of the first and second toe with surrounding erythema and pain of the first toe Left lower extremity: Palpable femoral pulse, nonpalpable graft at the kneel. Edema 1+. Dry Gangrene of the first and second toe. His capillary refill 3-4 seconds. Wound vac intact, Andreas intact and dry Results Result Diagram: 10/23/16 0504 10/23/16 0504 CYNDI CARR MD Oct 24, 2016 18:01
[2016-10-24 19:50] VITALS: BP 136/63; RESP 20
--- NOTE | 2016-10-24 20:00 | CONS ---
Date/Time of Note Date/Time of Note DATE: 10/24/16 TIME: 19:58 Assessment/Plan Assessment/Plan Chief Complaint/Hosp Course ID PROGRESS NOTE CURRENT ABX=> Zyvox, Zosyn #2 Ceftriaxone-> DC 24H INTERVAL SUMMARY * Resting => per notes failed attempt at revascularization=Graft re-thrombosed, low grade temps persisting , WBC rising * MICROBIOLOGY: Cultures have been negative. * INDWELLINGS: Right IJ Perm-A-Cath. PHYSICAL EXAMINATION: GENERAL:VSS, NAD HEENT: Unremarkable NECK: Supple, trachea midline. CHEST: Rise symmetrical, without dyspnea on observation HEART: Pulse RRR ABDOMEN: soft EXTREMITIES: Warm -> DSG intact ID ASSESSMENT 65 yo M admit with: 1. Severe LLEXT gangrene w/ PAD-> Hx of angio/bypass. Failed redo bypass. * Status post-surgical intervention with thrombectomy, exploration of the above knee popliteal graft and debridement of left lower extremity wound with wound VAC application on 10/19/2016=> failed attempt at revascularization=Graft re- thrombosed, * Per notes needs amputation 2. End-stage renal disease=> HD 3. Anemia of chronic disease. 4. DM 5. HTN 6. Systolic HF w/EF of 40% to 45% 7. ?ASHD?->cards on the case for cardiac risk stratification prior to surgical amputation (-) MRSA Nares INVASIVES: PIV ABX ALLERGY: VANCO IV CURRENT ABX: Zyvox, Zosyn #1 Ceftriaxone -> DC 10/23/16 ID RECOMMENDATIONS 1. Concern of low grade temps + rising WBC => ABX coverage broadened to Zosyn for gangrene anaerobic + PSAR coverage 2. Watch for opportunistic infx such as yeast and/or C.Diff 3. Observe response to over the weekend on ABX -> Reassess by ID team next week . Problems: Consultation Date/Type/Reason Admit Date/Time Oct 18, 2016 at 16:52 Type of Consultation: ID Referring Provider: OZZIE HERRERA MD Exam/Review of Systems Vital Signs Vitals Vital Signs Date Time Temp Pulse Resp B/P Pulse Ox O2 Delivery O2 Flow Rate FiO2 10/24/16 19:50 99.4 70 20 136/63 97 10/21/16 12:00 Room Air 10/20/16 20:00 2.0 Intake and Output 10/23/16 10/23/16 10/24/16 15:00 23:00 07:00 Intake Total 500 ml 550 ml 535 ml Output Total 2500 ml 0 ml Balance -2000 ml 550 ml 535 ml Results Result Diagram: 10/23/16 0504 10/23/16 0504 Results 24 hrs Laboratory Tests Test 10/23/16 20:57 10/24/16 08:16 10/24/16 11:48 10/24/16 17:28 Bedside Glucose 138 71 120 139 Medications Medications Current Medications Metoprolol Tartrate (Lopressor) 25 mg BID PO Last administered on 10/24/16 08: 55; Admin Dose 25 MG; Start 10/18/16 at 19:21 Amlodipine Besylate (Norvasc) 10 mg DAILY PO Last administered on 10/24/16 08: 56; Admin Dose 10 MG; Start 10/19/16 at 09:00 Hydralazine HCl (Apresoline) 10 mg Q4H PRN IV SBP>150 mm Hg Last administered on 10/18/16 20:35; Admin Dose 10 MG; Start 10/18/16 at 20:00 Albuterol (Ventolin Hfa) 2 puff Q8 INH Last administered on 10/24/16 13:05; Admin Dose 2 PUFF; Start 10/18/16 at 22:30 Famotidine (Pepcid) 20 mg DAILY PO Last administered on 10/24/16 08:53; Admin Dose 20 MG; Start 10/19/16 at 09:00 Ondansetron HCl (Zofran Inj) 4 mg Q6H PRN IV NAUSEA AND/OR VOMITING; Start at 22:30 Acetaminophen (Tylenol Tab) 650 mg Q6H PRN PO PAIN LEVEL 1-3 OR FEVER; Start at 22:30 Morphine Sulfate (morphine) 2 mg Q4H PRN IV SEVERE PAIN LEVEL 7-10 Last administered on 10/24/16 17:35; Admin Dose 2 MG; Start 10/18/16 at 22:30 Docusate Sodium (Colace) 100 mg Q12H PRN PO CONSTIPATION Last administered on 08:53; Admin Dose 100 MG; Start 10/18/16 at 22:30 Bisacodyl (Dulcolax Supp) 10 mg DAILY PRN DE CONSTIPATION; Start 10/18/16 at 22 :30 Diagnostic Test (Pha) (Accucheck) 1 ea 02 XX Last administered on 10/23/16 02: 19; Admin Dose 1 EA; Start 10/19/16 at 02:00 Acetaminophen/ Hydrocodone Bitart ([place] (10/325)) 1 tab Q4H PRN PO PAIN LEVEL 6-10 Last administered on 10/21/16 11:52; Admin Dose 1 TAB; Start 10/18/16 at 22:30 Miscellaneous Information 1 ea NOTE XX ; Start 10/18/16 at 22:30 Glucose (Glutose) 15 gm Q15M PRN PO DECREASED GLUCOSE; Start 10/18/16 at 22:30 Glucose (Glutose) 22.5 gm Q15M PRN PO DECREASED GLUCOSE; Start 10/18/16 at 22: 30 Dextrose (D50w Syringe) 25 ml Q15M PRN IV DECREASED GLUCOSE; Start 10/18/16 at 22:30 Dextrose (D50w Syringe) 50 ml Q15M PRN IV DECREASED GLUCOSE; Start 10/18/16 at 22:30 Glucagon (Glucagen) 1 mg Q15M PRN IM DECREASED GLUCOSE; Start 10/18/16 at 22:30 Glucose (Glutose) 15 gm Q15M PRN BUCCAL DECREASED GLUCOSE; Start 10/18/16 at 22 :30 Morphine Sulfate (morphine) 2 mg Q3H PRN IV PAIN Last administered on 03:49; Admin Dose 2 MG; Start 10/19/16 at 19:30 Acetaminophen/ Hydrocodone Bitart ([place] (5/325)) 1 tab Q4H PRN PO PAIN LEVEL 1 -5 Last administered on 10/22/16 05:59; Admin Dose 1 TAB; Start 10/19/16 at 19: 30 Acetaminophen/ Hydrocodone Bitart ([place] (5/325)) 2 tab Q6H PRN PO PAIN LEVEL 6 -10 Last administered on 10/24/16 12:12; Admin Dose 2 TAB; Start 10/19/16 at 19 :30 Linezolid (Zyvox) 600 mg BID PO Last administered on 10/24/16 08:53; Admin Dose 600 MG; Start 10/20/16 at 12:15 Aspirin 81 mg 81 mg DAILY PO Last administered on 10/24/16 08:53; Admin Dose 81 MG; Start 10/22/16 at 09:00 Heparin Sodium (Porcine) (Heparin 24647 Units/250 ml) 250 ml @ 5 mls/hr Q24H IV Last administered on 10/23/16 04:39; Admin Dose 5 MLS/HR; Start 10/21/16 at 20:00 Lactobacillus Acidoph/Bulgaricus (Floranex) 1 tab BID PO Last administered on 08:53; Admin Dose 1 TAB; Start 10/22/16 at 21:00 Senna/Docusate Sodium (Senokot-S) 2 tab HS PO Last administered on 10/23/16 20 :59; Admin Dose 2 TAB; Start 10/22/16 at 21:00 Lactulose 20 gm 20 gm TID PRN PO CONSTIPATION Last administered on 10/24/16 17 :35; Admin Dose 20 GM; Start 10/23/16 at 17:30 Piperacillin Sod/ Tazobactam Sod (Zosyn 2.25gm/ 50ml (Pmx)) 50 ml @ 100 mls/hr Q8 IVPB Last administered on 10/24/16 14:10; Admin Dose 100 MLS/HR; Start at 22:00 Clonidine HCl (Catapres-Tts 1 Patch) 1 patch Q7D TRANSDERM Last administered on 10/24/16 09:04; Admin Dose 1 PATCH; Start 10/24/16 at 09:00 Insulin Glargine (Lantus) 5 unit DAILY@20 SC ; Start 10/24/16 at 20:00 CARLOS THAKUR NP Oct 24, 2016 20:00
[2016-10-24] MEDS: SENNA/DOCUSATE NA (8.6MG/50MG) TAB PO SCH (21:45)
[2016-10-24] MEDS: INSULIN GLARGINE [LANtus] 3 ML PEN SC SCH (21:51)
[2016-10-24] MEDS: HEPARIN 25000 UNITS/D5W 250 ML (VPH) IV SCH (22:24)
[2016-10-25] MEDS: morphine 2 MG INJ IV PRN ×4 (00:55→11:36)
[2016-10-25] MEDS: ACCU-CHEK XX SCH (02:00)
[2016-10-25 05:38] LABS: ADD SCAN DIFF NO
[2016-10-25] MEDS: PIPER-TAZO 2.25 GM (PMX) 50 ML IVPB SCH ×3 (05:46→22:25)
[2016-10-25] MEDS: ALBUTEROL HFA 8 GM INHALER INH SCH ×3 (05:46→22:26)
[2016-10-25 05:48] LABS: ABNORMAL IP MESSAGE 1; BASOPHIL # 0.1 10^3/ul (0.0-0.1); BASOPHILS % 0.4 % (0.0-2.0); EOSINOPHILS # 0.3 10^3/ul (0.0-0.5); EOSINOPHILS % 1.9 % (0.0-7.0); HEMATOCRIT 28.4 % (42.0-52.0); HEMOGLOBIN 8.9 g/dl (14.0-18.0); LYMPHOCYTES # 2.3 10^3/ul (0.8-2.9); LYMPHOCYTES % 14.6 % (15.0-51.0); MEAN CORPUSCULAR HEMOGLOBIN 31.3 pg (29.0-33.0); MEAN CORPUSCULAR HGB CONC 31.3 g/dl (32.0-37.0); MEAN PLATELET VOLUME 11.9 fl (7.4-10.4); MONOCYTE # 1.6 10^3/ul (0.3-0.9); MONOCYTES % 10.2 % (0.0-11.0); NEUTROPHIL # 11.3 10^3/ul (1.6-7.5); NEUTROPHILS % 72.5 % (39.0-77.0); PLATELET COUNT 328 10^3/UL (140-415); RED BLOOD COUNT 2.84 10^6/ul (4.70-6.10); RED CELL DISTRIBUTION WIDTH 16.2 % (11.5-14.5); WHITE BLOOD COUNT 15.6 10^3/ul (4.8-10.8)
[2016-10-25 06:14] LABS: INR 1.61; PROTIME 19.3 Sec (12.2-14.2); PT RATIO 1.5
[2016-10-25 06:20] LABS: POTASSIUM 5.1 mmol/L (3.5-5.1)
[2016-10-25 06:22] LABS: CREATININE 8.23 mg/dl (0.61-1.24)
[2016-10-25 06:23] LABS: MAGNESIUM 2.1 mg/dl (1.7-2.5); PHOSPHORUS 6.8 mg/dl (2.5-4.9)
[2016-10-25] MEDS: LACTOBACILLUS CHEW TAB PO SCH ×2 (07:45→20:30)
[2016-10-25] MEDS: INSULIN ASPART [NOVOLOG] 3 ML PEN SC SCH ×4 (07:45→20:37)
[2016-10-25] MEDS: ASPIRIN (EC) 81 MG TAB PO SCH (07:45)
[2016-10-25] MEDS: AMLODIPINE 10 MG TAB PO SCH (07:46)
[2016-10-25] MEDS: FAMOTIDINE 20 MG TAB PO SCH (07:46)
[2016-10-25] MEDS: ZYVOX 600 MG TAB PO SCH ×3 (07:46→20:30)
[2016-10-25] MEDS: METOPROLOL 25 MG TAB PO SCH ×2 (07:46→20:36)
[2016-10-25 07:49] VITALS: BP 118/56; RESP 18
--- NOTE | 2016-10-25 09:51 | PN ---
Date/Time of Note Date/Time of Note DATE: 10/25/16 TIME: 09:41 Assessment/Plan VTE Prophylaxis VTE Prophylaxis Intervention: heparin Lines/Catheters IV [facility] Urinary Cath still in place: No Assessment/Plan Chief Complaint/Hosp Course A/P: 65M with: 1. Lt lwr ext gangrene w PAD. ho angio/bypass. Failed redo bypass/heparin gtt. Stable treat pain. RLE gangrene. Additionally, rt lwr ext dry gangrene. -Pending amputation? May proceed from medical standpoint. - f/u [facility] rec's - regarding RLE gangrene - possible angiogram on Tuesday. 2. Esrd - on HD - continue HD, f/u renal rec's 3. Htn - stable - continue BB, CCB 4. Anemia - H/H stable - monitor 5. Past tobacco - cessation 6. /dm/metabolic syndrome - FS stable - continue ISS, lantus 7. Possible past alcoholism - monitor 8. Pneumonia vs atelectasis. No hypoxia; may proceed to surgery. 9. Possible cad - monitor 10. PAD - see # 1 12. Cellulitis/DFI, appreciate ID eval - abx per their rec's Problems: Subjective 24 Hr Interval Summary Free Text/Dictation No acute events overnight. Exam/Review of Systems Vital Signs Vitals Vital Signs Date Time Temp Pulse Resp B/P Pulse Ox O2 Delivery O2 Flow Rate FiO2 10/25/16 07:49 99.2 74 18 118/56 94 10/21/16 12:00 Room Air Intake and Output 10/24/16 10/24/16 10/25/16 15:00 23:00 07:00 Intake Total 50 ml 495.25 ml 443.1 ml Output Total 0 ml 0 ml Balance 50 ml 495.25 ml 443.1 ml Exam Gen: sleeping, NAD HEENT: PERRL, EOMI Neck: supple CV: s1s2 reg; no m/r/g Res: ctab GI: bs+ nt nd; no r/r/g M/S/ext- no edema; poor pulses; lt 1st/2nd toe gangrene. rt-toe dusky. Wound vac in place. Results Result Diagram: 10/25/1610 10/25/16 0510 Results 24 hrs Laboratory Tests Test 10/24/16 11:48 10/24/16 17:28 10/24/16 21:39 10/25/16 05:10 Bedside Glucose 120 139 159 White Blood Count 15.6 H Red Blood Count 2.84 L Hemoglobin 8.9 L Hematocrit 28.4 L Mean Corpuscular Volume 100.0 Mean Corpuscular Hemoglobin 31.3 Mean Corpuscular Hemoglobin Concent 31.3 L Red Cell Distribution Width 16.2 H Platelet Count 328 Mean Platelet Volume 11.9 H Neutrophils % 72.5 Lymphocytes % 14.6 L Monocytes % 10.2 Eosinophils % 1.9 Basophils % 0.4 Nucleated Red Blood Cells % 0.0 Neutrophils # 11.3 H Lymphocytes # 2.3 Monocytes # 1.6 H Eosinophils # 0.3 Basophils # 0.1 Nucleated Red Blood Cells # 0.0 Prothrombin Time 19.3 #H Prothrombin Time Ratio 1.5 INR International Normalized Ratio 1.61 Sodium Level 132 L Potassium Level 5.1 Chloride Level 90 L Carbon Dioxide Level 26 Anion Gap 21 H Blood Urea Nitrogen 57 H Creatinine 8.23 H Glucose Level 94 Calcium Level 8.0 L Phosphorus Level 6.8 H Magnesium Level 2.1 Test 10/25/16 07:36 Bedside Glucose 98 Medications Medications Current Medications Metoprolol Tartrate (Lopressor) 25 mg BID PO Last administered on 10/24/16 21: 45; Admin Dose 25 MG; Start 10/18/16 at 19:21 Amlodipine Besylate (Norvasc) 10 mg DAILY PO Last administered on 10/24/16 08: 56; Admin Dose 10 MG; Start 10/19/16 at 09:00 Hydralazine HCl (Apresoline) 10 mg Q4H PRN IV SBP>150 mm Hg Last administered on 10/18/16 20:35; Admin Dose 10 MG; Start 10/18/16 at 20:00 Albuterol (Ventolin Hfa) 2 puff Q8 INH Last administered on 10/25/16 05:46; Admin Dose 2 PUFF; Start 10/18/16 at 22:30 Famotidine (Pepcid) 20 mg DAILY PO Last administered on 10/24/16 08:53; Admin Dose 20 MG; Start 10/19/16 at 09:00 Ondansetron HCl (Zofran Inj) 4 mg Q6H PRN IV NAUSEA AND/OR VOMITING; Start at 22:30 Acetaminophen (Tylenol Tab) 650 mg Q6H PRN PO PAIN LEVEL 1-3 OR FEVER; Start at 22:30 Morphine Sulfate (morphine) 2 mg Q4H PRN IV SEVERE PAIN LEVEL 7-10 Last administered on 10/25/16 08:13; Admin Dose 2 MG; Start 10/18/16 at 22:30 Docusate Sodium (Colace) 100 mg Q12H PRN PO CONSTIPATION Last administered on 08:53; Admin Dose 100 MG; Start 10/18/16 at 22:30 Bisacodyl (Dulcolax Supp) 10 mg DAILY PRN CA CONSTIPATION; Start 10/18/16 at 22 :30 Diagnostic Test (Pha) (Accucheck) 1 ea 02 XX Last administered on 10/23/16 02: 19; Admin Dose 1 EA; Start 10/19/16 at 02:00 Acetaminophen/ Hydrocodone Bitart ([place] (10325)) 1 tab Q4H PRN PO PAIN LEVEL 6-10 Last administered on 10/21/16 11:52; Admin Dose 1 TAB; Start 10/18/16 at 22:30 Miscellaneous Information 1 ea NOTE XX ; Start 10/18/16 at 22:30 Glucose (Glutose) 15 gm Q15M PRN PO DECREASED GLUCOSE; Start 10/18/16 at 22:30 Glucose (Glutose) 22.5 gm Q15M PRN PO DECREASED GLUCOSE; Start 10/18/16 at 22: 30 Dextrose (D50w Syringe) 25 ml Q15M PRN IV DECREASED GLUCOSE; Start 10/18/16 at 22:30 Dextrose (D50w Syringe) 50 ml Q15M PRN IV DECREASED GLUCOSE; Start 10/18/16 at 22:30 Glucagon (Glucagen) 1 mg Q15M PRN IM DECREASED GLUCOSE; Start 10/18/16 at 22:30 Glucose (Glutose) 15 gm Q15M PRN BUCCAL DECREASED GLUCOSE; Start 10/18/16 at 22 :30 Morphine Sulfate (morphine) 2 mg Q3H PRN IV PAIN Last administered on 03:49; Admin Dose 2 MG; Start 10/19/16 at 19:30 Acetaminophen/ Hydrocodone Bitart ([place] (5/325)) 1 tab Q4H PRN PO PAIN LEVEL 1 -5 Last administered on 10/22/16 05:59; Admin Dose 1 TAB; Start 10/19/16 at 19: 30 Acetaminophen/ Hydrocodone Bitart ([place] (5/325)) 2 tab Q6H PRN PO PAIN LEVEL 6 -10 Last administered on 10/24/16 21:44; Admin Dose 2 TAB; Start 10/19/16 at 19 :30 Linezolid (Zyvox) 600 mg BID PO Last administered on 10/24/16 21:44; Admin Dose 600 MG; Start 10/20/16 at 12:15 Aspirin 81 mg 81 mg DAILY PO Last administered on 10/24/16 08:53; Admin Dose 81 MG; Start 10/22/16 at 09:00 Heparin Sodium (Porcine) (Heparin 69300 Units/250 ml) 250 ml @ 5 mls/hr Q24H IV Last administered on 10/24/16 22:24; Admin Dose 5 MLS/HR; Start 10/21/16 at 20:00 Lactobacillus Acidoph/Bulgaricus (Floranex) 1 tab BID PO Last administered on 21:45; Admin Dose 1 TAB; Start 10/22/16 at 21:00 Senna/Docusate Sodium (Senokot-S) 2 tab HS PO Last administered on 10/24/16 21 :45; Admin Dose 2 TAB; Start 10/22/16 at 21:00 Lactulose 20 gm 20 gm TID PRN PO CONSTIPATION Last administered on 10/24/16 17 :35; Admin Dose 20 GM; Start 10/23/16 at 17:30 Piperacillin Sod/ Tazobactam Sod (Zosyn 2.25gm/ 50ml (Pmx)) 50 ml @ 100 mls/hr Q8 IVPB Last administered on 10/25/16 05:46; Admin Dose 100 MLS/HR; Start at 22:00 Clonidine HCl (Catapres-Tts 1 Patch) 1 patch Q7D TRANSDERM Last administered on 10/24/16 09:04; Admin Dose 1 PATCH; Start 10/24/16 at 09:00 Insulin Glargine (Lantus) 5 unit DAILY@20 SC Last administered on 3/26/17at 21: 51; Admin Dose 5 UNIT; Start 10/24/16 at 20:00 FIDENCIO SIBLEY Oct 25, 2016 09:51
--- NOTE | 2016-10-25 10:48 | CONS ---
Date/Time of Note Date/Time of Note DATE: 10/25/16 TIME: 10:46 Assessment/Plan Assessment/Plan Additional Assessment/Plan 1. 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 Failed redo bypass. 2. Severe stenosis of the right distal superficial femoral artery and occluded right posterior tibial artery. 3. End-stage renal disease on hemodialysis Tuesday, , Tuesday. 4. Accelerated hypertension. 5. Hyperlipidemia. 6. History of hypertension with peripheral arterial disease. 7. History of peripheral arterial disease status post left lower extremity bypass in September 2016. PLAN: no events overnight, BP stable Status post-surgical intervention with thrombectomy, exploration of the above knee popliteal graft and debridement of left lower extremity wound with wound VAC application on 10/19/2016. plan for HD tomorrow then pt will be on TTS Schedule will follow up Consultation Date/Type/Reason Admit Date/Time Oct 18, 2016 at 16:52 Initial Consult Date 10/18/2016 Type of Consultation: NEPHROLOGY Referring Provider: OZZIE HERRERA MD Exam/Review of Systems Vital Signs Vitals Vital Signs Date Time Temp Pulse Resp B/P Pulse Ox O2 Delivery O2 Flow Rate FiO2 10/25/16 07:49 99.2 74 18 118/56 94 10/21/16 12:00 Room Air Intake and Output 10/24/16 10/24/16 10/25/16 15:00 23:00 07:00 Intake Total 50 ml 495.25 ml 443.1 ml Output Total 0 ml 0 ml Balance 50 ml 495.25 ml 443.1 ml Exam GENERAL: NAD HEENT: Unremarkable NECK: Supple, trachea midline. CHEST: Rise symmetrical, without dyspnea on observation HEART: Pulse RRR ABDOMEN: soft EXTREMITIES: Warm -> DSG intact Results Result Diagram: 10/25/16 0510 10/25/16 0510 Results 24 hrs Laboratory Tests Test 10/24/16 11:48 10/24/16 17:28 10/24/16 21:39 10/25/16 05:10 Bedside Glucose 120 139 159 White Blood Count 15.6 H Red Blood Count 2.84 L Hemoglobin 8.9 L Hematocrit 28.4 L Mean Corpuscular Volume 100.0 Mean Corpuscular Hemoglobin 31.3 Mean Corpuscular Hemoglobin Concent 31.3 L Red Cell Distribution Width 16.2 H Platelet Count 328 Mean Platelet Volume 11.9 H Neutrophils % 72.5 Lymphocytes % 14.6 L Monocytes % 10.2 Eosinophils % 1.9 Basophils % 0.4 Nucleated Red Blood Cells % 0.0 Neutrophils # 11.3 H Lymphocytes # 2.3 Monocytes # 1.6 H Eosinophils # 0.3 Basophils # 0.1 Nucleated Red Blood Cells # 0.0 Prothrombin Time 19.3 #H Prothrombin Time Ratio 1.5 INR International Normalized Ratio 1.61 Sodium Level 132 L Potassium Level 5.1 Chloride Level 90 L Carbon Dioxide Level 26 Anion Gap 21 H Blood Urea Nitrogen 57 H Creatinine 8.23 H Glucose Level 94 Calcium Level 8.0 L Phosphorus Level 6.8 H Magnesium Level 2.1 Test 10/25/16 07:36 Bedside Glucose 98 Medications Medications Current Medications Metoprolol Tartrate (Lopressor) 25 mg BID PO Last administered on 10/24/16 21: 45; Admin Dose 25 MG; Start 10/18/16 at 19:21 Amlodipine Besylate (Norvasc) 10 mg DAILY PO Last administered on 10/24/16 08: 56; Admin Dose 10 MG; Start 10/19/16 at 09:00 Hydralazine HCl (Apresoline) 10 mg Q4H PRN IV SBP>150 mm Hg Last administered on 10/18/16 20:35; Admin Dose 10 MG; Start 10/18/16 at 20:00 Albuterol (Ventolin Hfa) 2 puff Q8 INH Last administered on 10/25/16 05:46; Admin Dose 2 PUFF; Start 10/18/16 at 22:30 Famotidine (Pepcid) 20 mg DAILY PO Last administered on 10/24/16 08:53; Admin Dose 20 MG; Start 10/19/16 at 09:00 Ondansetron HCl (Zofran Inj) 4 mg Q6H PRN IV NAUSEA AND/OR VOMITING; Start at 22:30 Acetaminophen (Tylenol Tab) 650 mg Q6H PRN PO PAIN LEVEL 1-3 OR FEVER; Start at 22:30 Morphine Sulfate (morphine) 2 mg Q4H PRN IV SEVERE PAIN LEVEL 7-10 Last administered on 10/25/16 08:13; Admin Dose 2 MG; Start 10/18/16 at 22:30 Docusate Sodium (Colace) 100 mg Q12H PRN PO CONSTIPATION Last administered on 08:53; Admin Dose 100 MG; Start 10/18/16 at 22:30 Bisacodyl (Dulcolax Supp) 10 mg DAILY PRN CA CONSTIPATION; Start 10/18/16 at 22 :30 Diagnostic Test (Pha) (Accucheck) 1 ea 02 XX Last administered on 10/23/16 02: 19; Admin Dose 1 EA; Start 10/19/16 at 02:00 Acetaminophen/ Hydrocodone Bitart ([place] (10/325)) 1 tab Q4H PRN PO PAIN LEVEL 6-10 Last administered on 10/21/16 11:52; Admin Dose 1 TAB; Start 10/18/16 at 22:30 Miscellaneous Information 1 ea NOTE XX ; Start 10/18/16 at 22:30 Glucose (Glutose) 15 gm Q15M PRN PO DECREASED GLUCOSE; Start 10/18/16 at 22:30 Glucose (Glutose) 22.5 gm Q15M PRN PO DECREASED GLUCOSE; Start 10/18/16 at 22: 30 Dextrose (D50w Syringe) 25 ml Q15M PRN IV DECREASED GLUCOSE; Start 10/18/16 at 22:30 Dextrose (D50w Syringe) 50 ml Q15M PRN IV DECREASED GLUCOSE; Start 10/18/16 at 22:30 Glucagon (Glucagen) 1 mg Q15M PRN IM DECREASED GLUCOSE; Start 10/18/16 at 22:30 Glucose (Glutose) 15 gm Q15M PRN BUCCAL DECREASED GLUCOSE; Start 10/18/16 at 22 :30 Morphine Sulfate (morphine) 2 mg Q3H PRN IV PAIN Last administered on 03:49; Admin Dose 2 MG; Start 10/19/16 at 19:30 Acetaminophen/ Hydrocodone Bitart ([place] (5/325)) 1 tab Q4H PRN PO PAIN LEVEL 1 -5 Last administered on 10/22/16 05:59; Admin Dose 1 TAB; Start 10/19/16 at 19: 30 Acetaminophen/ Hydrocodone Bitart ([place] (5/325)) 2 tab Q6H PRN PO PAIN LEVEL 6 -10 Last administered on 10/24/16 21:44; Admin Dose 2 TAB; Start 10/19/16 at 19 :30 Linezolid (Zyvox) 600 mg BID PO Last administered on 10/24/16 21:44; Admin Dose 600 MG; Start 10/20/16 at 12:15 Aspirin 81 mg 81 mg DAILY PO Last administered on 10/24/16 08:53; Admin Dose 81 MG; Start 10/22/16 at 09:00 Heparin Sodium (Porcine) (Heparin 01523 Units/250 ml) 250 ml @ 5 mls/hr Q24H IV Last administered on 10/24/16 22:24; Admin Dose 5 MLS/HR; Start 10/21/16 at 20:00 Lactobacillus Acidoph/Bulgaricus (Floranex) 1 tab BID PO Last administered on 21:45; Admin Dose 1 TAB; Start 10/22/16 at 21:00 Senna/Docusate Sodium (Senokot-S) 2 tab HS PO Last administered on 10/24/16 21 :45; Admin Dose 2 TAB; Start 10/22/16 at 21:00 Lactulose 20 gm 20 gm TID PRN PO CONSTIPATION Last administered on 10/24/16 17 :35; Admin Dose 20 GM; Start 10/23/16 at 17:30 Piperacillin Sod/ Tazobactam Sod (Zosyn 2.25gm/ 50ml (Pmx)) 50 ml @ 100 mls/hr Q8 IVPB Last administered on 10/25/16 05:46; Admin Dose 100 MLS/HR; Start at 22:00 Clonidine HCl (Catapres-Tts 1 Patch) 1 patch Q7D TRANSDERM Last administered on 10/24/16 09:04; Admin Dose 1 PATCH; Start 10/24/16 at 09:00 Insulin Glargine (Lantus) 5 unit DAILY@20 SC Last administered on 10/24/16 21: 51; Admin Dose 5 UNIT; Start 10/24/16 at 20:00 LISA MERRITT MD Oct 25, 2016 10:48
--- NOTE | 2016-10-25 11:33 | CONS ---
Date/Time of Note Date/Time of Note DATE: 10/25/16 TIME: 11:29 Assessment/Plan Assessment/Plan Chief Complaint/Hosp Course IMPRESSION: 1. Preoperative evaluation prior to lower extremity vascular surgery, possible amputation.-Now POD#2 s/p LLE vascular surgery with failed graft 2. Hypertension, uncontrolled. 3. Abnormal electrocardiogram, assess for acute coronary syndrome. 4. Dyslipidemia. 5. Peripheral arterial disease, status post prior revascularization. 6. Lower extremity nonhealing ulceration of the toe. 7. Possible pneumonia by chest x-ray. 8. End-stage renal disease on hemodialysis. 9. Anemia. 10. Leukocytosis. 11/ Cardiomyopathy-LVEF 40-45%-negative trop x 3 since admit Recc: -Tele -Continue norvasc/BB -Local wound care/abx's and f/u cx data -Pain control -Continue ASA -Ongoing vascular eval and treatment with plans for eventual amputation given failed graft? Problems: Consultation Date/Type/Reason Admit Date/Time Oct 18, 2016 at 16:52 Initial Consult Date Pre-op/HTN/cardiomyopathy Type of Consultation: Cardiology Reason for Consultation Leg pain Referring Provider: OZZIE HERRERA MD Exam/Review of Systems Vital Signs Vitals Vital Signs Date Time Temp Pulse Resp B/P Pulse Ox O2 Delivery O2 Flow Rate FiO2 10/25/16 07:49 99.2 74 18 118/56 94 10/21/16 12:00 Room Air Intake and Output 10/24/16 10/24/16 10/25/16 15:00 23:00 07:00 Intake Total 50 ml 495.25 ml 443.1 ml Output Total 0 ml 0 ml Balance 50 ml 495.25 ml 443.1 ml Exam Review of Systems: CONSTITUTIONAL: No fevers, chills. PULMONARY: No sob CARDIOVASCULAR: No chest pain/palpitations GASTROINTESTINAL: No nausea/vomiting. GENITOURINARY: No hematuria/dysuria. MUSCULOSKELETAL: apin in leg PSYCHIATRIC: The patient denies depression. NEUROLOGIC: No weakness Constitutional: alert, oriented Psych: no complaints Head: normocephalic Eyes: nl conjunctiva ENMT: mucosa pink and moist Neck: jvd (9 cm water), supple Respiratory: diminished breath sounds (at bases/B) Cardiovascular: regular rate and rhythm Gastrointestinal: non-tender, soft Musculoskeletal: muscle tone (normal) Extremities: other (garenous changes of feet/Bilateral) Neurological: other (no focal deficits) Results Result Diagram: 10/25/16 0510 10/25/16 0510 Results 24 hrs Laboratory Tests Test 10/24/16 11:48 10/24/16 17:28 10/24/16 21:39 10/25/16 05:10 Bedside Glucose 120 139 159 White Blood Count 15.6 H Red Blood Count 2.84 L Hemoglobin 8.9 L Hematocrit 28.4 L Mean Corpuscular Volume 100.0 Mean Corpuscular Hemoglobin 31.3 Mean Corpuscular Hemoglobin Concent 31.3 L Red Cell Distribution Width 16.2 H Platelet Count 328 Mean Platelet Volume 11.9 H Neutrophils % 72.5 Lymphocytes % 14.6 L Monocytes % 10.2 Eosinophils % 1.9 Basophils % 0.4 Nucleated Red Blood Cells % 0.0 Neutrophils # 11.3 H Lymphocytes # 2.3 Monocytes # 1.6 H Eosinophils # 0.3 Basophils # 0.1 Nucleated Red Blood Cells # 0.0 Prothrombin Time 19.3 #H Prothrombin Time Ratio 1.5 INR International Normalized Ratio 1.61 Sodium Level 132 L Potassium Level 5.1 Chloride Level 90 L Carbon Dioxide Level 26 Anion Gap 21 H Blood Urea Nitrogen 57 H Creatinine 8.23 H Glucose Level 94 Calcium Level 8.0 L Phosphorus Level 6.8 H Magnesium Level 2.1 Test 10/25/16 07:36 Bedside Glucose 98 Medications Medications Current Medications Metoprolol Tartrate (Lopressor) 25 mg BID PO Last administered on 10/24/16 21: 45; Admin Dose 25 MG; Start 10/18/16 at 19:21 Amlodipine Besylate (Norvasc) 10 mg DAILY PO Last administered on 10/24/16 08: 56; Admin Dose 10 MG; Start 10/19/16 at 09:00 Hydralazine HCl (Apresoline) 10 mg Q4H PRN IV SBP>150 mm Hg Last administered on 10/18/16 20:35; Admin Dose 10 MG; Start 10/18/16 at 20:00 Albuterol (Ventolin Hfa) 2 puff Q8 INH Last administered on 10/25/16 05:46; Admin Dose 2 PUFF; Start 10/18/16 at 22:30 Famotidine (Pepcid) 20 mg DAILY PO Last administered on 10/24/16 08:53; Admin Dose 20 MG; Start 10/19/16 at 09:00 Ondansetron HCl (Zofran Inj) 4 mg Q6H PRN IV NAUSEA AND/OR VOMITING; Start at 22:30 Acetaminophen (Tylenol Tab) 650 mg Q6H PRN PO PAIN LEVEL 1-3 OR FEVER; Start at 22:30 Morphine Sulfate (morphine) 2 mg Q4H PRN IV SEVERE PAIN LEVEL 7-10 Last administered on 10/25/16 08:13; Admin Dose 2 MG; Start 10/18/16 at 22:30 Docusate Sodium (Colace) 100 mg Q12H PRN PO CONSTIPATION Last administered on 08:53; Admin Dose 100 MG; Start 10/18/16 at 22:30 Bisacodyl (Dulcolax Supp) 10 mg DAILY PRN AR CONSTIPATION; Start 10/18/16 at 22 :30 Diagnostic Test (Pha) (Accucheck) 1 ea 02 XX Last administered on 10/23/16 02: 19; Admin Dose 1 EA; Start 10/19/16 at 02:00 Acetaminophen/ Hydrocodone Bitart ([place] (10325)) 1 tab Q4H PRN PO PAIN LEVEL 6-10 Last administered on 10/21/16 11:52; Admin Dose 1 TAB; Start 10/18/16 at 22:30 Miscellaneous Information 1 ea NOTE XX ; Start 10/18/16 at 22:30 Glucose (Glutose) 15 gm Q15M PRN PO DECREASED GLUCOSE; Start 10/18/16 at 22:30 Glucose (Glutose) 22.5 gm Q15M PRN PO DECREASED GLUCOSE; Start 10/18/16 at 22: 30 Dextrose (D50w Syringe) 25 ml Q15M PRN IV DECREASED GLUCOSE; Start 10/18/16 at 22:30 Dextrose (D50w Syringe) 50 ml Q15M PRN IV DECREASED GLUCOSE; Start 10/18/16 at 22:30 Glucagon (Glucagen) 1 mg Q15M PRN IM DECREASED GLUCOSE; Start 10/18/16 at 22:30 Glucose (Glutose) 15 gm Q15M PRN BUCCAL DECREASED GLUCOSE; Start 10/18/16 at 22 :30 Morphine Sulfate (morphine) 2 mg Q3H PRN IV PAIN Last administered on 03:49; Admin Dose 2 MG; Start 10/19/16 at 19:30 Acetaminophen/ Hydrocodone Bitart ([place] (5/325)) 1 tab Q4H PRN PO PAIN LEVEL 1 -5 Last administered on 10/22/16 05:59; Admin Dose 1 TAB; Start 10/19/16 at 19: 30 Acetaminophen/ Hydrocodone Bitart ([place] (5/325)) 2 tab Q6H PRN PO PAIN LEVEL 6 -10 Last administered on 10/24/16 21:44; Admin Dose 2 TAB; Start 10/19/16 at 19 :30 Linezolid (Zyvox) 600 mg BID PO Last administered on 10/24/16 21:44; Admin Dose 600 MG; Start 10/20/16 at 12:15 Aspirin 81 mg 81 mg DAILY PO Last administered on 10/24/16 08:53; Admin Dose 81 MG; Start 10/22/16 at 09:00 Heparin Sodium (Porcine) (Heparin 08337 Units/250 ml) 250 ml @ 5 mls/hr Q24H IV Last administered on 10/24/16 22:24; Admin Dose 5 MLS/HR; Start 10/21/16 at 20:00 Lactobacillus Acidoph/Bulgaricus (Floranex) 1 tab BID PO Last administered on 21:45; Admin Dose 1 TAB; Start 10/22/16 at 21:00 Senna/Docusate Sodium (Senokot-S) 2 tab HS PO Last administered on 10/24/16 21 :45; Admin Dose 2 TAB; Start 10/22/16 at 21:00 Lactulose 20 gm 20 gm TID PRN PO CONSTIPATION Last administered on 10/24/16 17 :35; Admin Dose 20 GM; Start 10/23/16 at 17:30 Piperacillin Sod/ Tazobactam Sod (Zosyn 2.25gm/ 50ml (Pmx)) 50 ml @ 100 mls/hr Q8 IVPB Last administered on 10/25/16 05:46; Admin Dose 100 MLS/HR; Start at 22:00 Clonidine HCl (Catapres-Tts 1 Patch) 1 patch Q7D TRANSDERM Last administered on 10/24/16 09:04; Admin Dose 1 PATCH; Start 10/24/16 at 09:00 Insulin Glargine (Lantus) 5 unit DAILY@20 SC Last administered on 10/24/16 21: 51; Admin Dose 5 UNIT; Start 10/24/16 at 20:00 KAYLEE WILSON Oct 25, 2016 11:33
--- NOTE | 2016-10-25 12:12 | CONS ---
Date/Time of Note Date/Time of Note DATE: 10/25/16 TIME: 12:10 Assessment/Plan Assessment/Plan Chief Complaint/Hosp Course SUBJECTIVE: No events overnight. alert, c/o LLE pain, nad. MICROBIOLOGY: Cultures have been negative. INDWELLINGS: Right IJ Perm-A-Cath. ANTIMICROBIALS: Zyvox Zosyn ALLERGIES: VANCOMYCIN. ASSESSMENT: 1. Severe peripheral vascular disease with bilateral lower extremity gangrene, status post-surgical intervention with thrombectomy, exploration of the above knee popliteal graft and debridement of left lower extremity wound with wound VAC application on 10/19/2016. 2. End-stage renal disease, hemodialysis dependent. 3. Anemia of chronic disease. 4. DM 5. HTN 6. SIRS with low grade temps and leukocytosis===> s/p Rocephin changed to Zosyn Plan: Clinically unchanged, continue abx, may need BKA per vascular rec-s, cxr in am [facility] staff Problems: Consultation Date/Type/Reason Admit Date/Time Oct 18, 2016 at 16:52 Type of Consultation: id Referring Provider: OZZIE HERRERA MD Exam/Review of Systems Vital Signs Vitals Vital Signs Date Time Temp Pulse Resp B/P Pulse Ox O2 Delivery O2 Flow Rate FiO2 10/25/16 07:49 99.2 74 18 118/56 94 10/21/16 12:00 Room Air Intake and Output 10/24/16 10/24/16 10/25/16 15:00 23:00 07:00 Intake Total 50 ml 495.25 ml 443.1 ml Output Total 0 ml 0 ml Balance 50 ml 495.25 ml 443.1 ml Results Result Diagram: 10/25/16 0510 10/25/16 0510 Results 24 hrs Laboratory Tests Test 10/24/16 17:28 10/24/16 21:39 10/25/16 05:10 10/25/16 07:36 Bedside Glucose 139 159 98 White Blood Count 15.6 H Red Blood Count 2.84 L Hemoglobin 8.9 L Hematocrit 28.4 L Mean Corpuscular Volume 100.0 Mean Corpuscular Hemoglobin 31.3 Mean Corpuscular Hemoglobin Concent 31.3 L Red Cell Distribution Width 16.2 H Platelet Count 328 Mean Platelet Volume 11.9 H Neutrophils % 72.5 Lymphocytes % 14.6 L Monocytes % 10.2 Eosinophils % 1.9 Basophils % 0.4 Nucleated Red Blood Cells % 0.0 Neutrophils # 11.3 H Lymphocytes # 2.3 Monocytes # 1.6 H Eosinophils # 0.3 Basophils # 0.1 Nucleated Red Blood Cells # 0.0 Prothrombin Time 19.3 #H Prothrombin Time Ratio 1.5 INR International Normalized Ratio 1.61 Sodium Level 132 L Potassium Level 5.1 Chloride Level 90 L Carbon Dioxide Level 26 Anion Gap 21 H Blood Urea Nitrogen 57 H Creatinine 8.23 H Glucose Level 94 Calcium Level 8.0 L Phosphorus Level 6.8 H Magnesium Level 2.1 Medications Medications Current Medications Metoprolol Tartrate (Lopressor) 25 mg BID PO Last administered on 10/24/16 21: 45; Admin Dose 25 MG; Start 10/18/16 at 19:21 Amlodipine Besylate (Norvasc) 10 mg DAILY PO Last administered on 10/24/16 08: 56; Admin Dose 10 MG; Start 10/19/16 at 09:00 Hydralazine HCl (Apresoline) 10 mg Q4H PRN IV SBP>150 mm Hg Last administered on 10/18/16 20:35; Admin Dose 10 MG; Start 10/18/16 at 20:00 Albuterol (Ventolin Hfa) 2 puff Q8 INH Last administered on 10/25/16 05:46; Admin Dose 2 PUFF; Start 10/18/16 at 22:30 Famotidine (Pepcid) 20 mg DAILY PO Last administered on 10/24/16 08:53; Admin Dose 20 MG; Start 10/19/16 at 09:00 Ondansetron HCl (Zofran Inj) 4 mg Q6H PRN IV NAUSEA AND/OR VOMITING; Start at 22:30 Acetaminophen (Tylenol Tab) 650 mg Q6H PRN PO PAIN LEVEL 1-3 OR FEVER; Start at 22:30 Morphine Sulfate (morphine) 2 mg Q4H PRN IV SEVERE PAIN LEVEL 7-10 Last administered on 10/25/16 08:13; Admin Dose 2 MG; Start 10/18/16 at 22:30 Docusate Sodium (Colace) 100 mg Q12H PRN PO CONSTIPATION Last administered on 08:53; Admin Dose 100 MG; Start 10/18/16 at 22:30 Bisacodyl (Dulcolax Supp) 10 mg DAILY PRN AR CONSTIPATION; Start 10/18/16 at 22 :30 Diagnostic Test (Pha) (Accucheck) 1 ea 02 XX Last administered on 10/23/16 02: 19; Admin Dose 1 EA; Start 10/19/16 at 02:00 Acetaminophen/ Hydrocodone Bitart ([place] (10/325)) 1 tab Q4H PRN PO PAIN LEVEL 6-10 Last administered on 10/21/16 11:52; Admin Dose 1 TAB; Start 10/18/16 at 22:30 Miscellaneous Information 1 ea NOTE XX ; Start 10/18/16 at 22:30 Glucose (Glutose) 15 gm Q15M PRN PO DECREASED GLUCOSE; Start 10/18/16 at 22:30 Glucose (Glutose) 22.5 gm Q15M PRN PO DECREASED GLUCOSE; Start 10/18/16 at 22: 30 Dextrose (D50w Syringe) 25 ml Q15M PRN IV DECREASED GLUCOSE; Start 10/18/16 at 22:30 Dextrose (D50w Syringe) 50 ml Q15M PRN IV DECREASED GLUCOSE; Start 10/18/16 at 22:30 Glucagon (Glucagen) 1 mg Q15M PRN IM DECREASED GLUCOSE; Start 10/18/16 at 22:30 Glucose (Glutose) 15 gm Q15M PRN BUCCAL DECREASED GLUCOSE; Start 10/18/16 at 22 :30 Morphine Sulfate (morphine) 2 mg Q3H PRN IV PAIN Last administered on 11:36; Admin Dose 2 MG; Start 10/19/16 at 19:30 Acetaminophen/ Hydrocodone Bitart ([place] (5/325)) 1 tab Q4H PRN PO PAIN LEVEL 1 -5 Last administered on 10/22/16 05:59; Admin Dose 1 TAB; Start 10/19/16 at 19: 30 Acetaminophen/ Hydrocodone Bitart ([place] (5/325)) 2 tab Q6H PRN PO PAIN LEVEL 6 -10 Last administered on 10/24/16 21:44; Admin Dose 2 TAB; Start 10/19/16 at 19 :30 Linezolid (Zyvox) 600 mg BID PO Last administered on 10/24/16 21:44; Admin Dose 600 MG; Start 10/20/16 at 12:15 Aspirin 81 mg 81 mg DAILY PO Last administered on 10/24/16 08:53; Admin Dose 81 MG; Start 10/22/16 at 09:00 Heparin Sodium (Porcine) (Heparin 31826 Units/250 ml) 250 ml @ 5 mls/hr Q24H IV Last administered on 10/24/16 22:24; Admin Dose 5 MLS/HR; Start 10/21/16 at 20:00 Lactobacillus Acidoph/Bulgaricus (Floranex) 1 tab BID PO Last administered on 21:45; Admin Dose 1 TAB; Start 10/22/16 at 21:00 Senna/Docusate Sodium (Senokot-S) 2 tab HS PO Last administered on 10/24/16 21 :45; Admin Dose 2 TAB; Start 10/22/16 at 21:00 Lactulose 20 gm 20 gm TID PRN PO CONSTIPATION Last administered on 10/24/16 17 :35; Admin Dose 20 GM; Start 10/23/16 at 17:30 Piperacillin Sod/ Tazobactam Sod (Zosyn 2.25gm/ 50ml (Pmx)) 50 ml @ 100 mls/hr Q8 IVPB Last administered on 10/25/16 05:46; Admin Dose 100 MLS/HR; Start at 22:00 Clonidine HCl (Catapres-Tts 1 Patch) 1 patch Q7D TRANSDERM Last administered on 10/24/16 09:04; Admin Dose 1 PATCH; Start 10/24/16 at 09:00 Insulin Glargine (Lantus) 5 unit DAILY@20 SC Last administered on 10/24/16 21: 51; Admin Dose 5 UNIT; Start 10/24/16 at 20:00 DARLENE MCKEE NP Oct 25, 2016 12:12
[2016-10-25] MEDS: HYDROCODONE/APAP (5/325) TAB PO PRN ×3 (13:43→21:40)
--- NOTE | 2016-10-25 16:14 | RADRPT ---
PROCEDURE: XR Chest. CLINICAL INDICATION: Shortness of breath. TECHNIQUE: Single frontal chest x-ray. COMPARISON: 10/18/2016 FINDINGS: Right internal jugular tunnel dialysis catheter. The mediastinal structures are unremarkable. There is calcification of the thoracic aorta (consistent with atherosclerosis). There is mild cardiomegaly . The pulmonary vascularity is normal. There is mild right mid lung field and RLL patchy consolidati on. There is left basilar subsegmental atelectasis. The pleural spaces are unremarkable. The osseous structures are unremarkable. IMPRESSION: 1. Mild right mid lung field and RLL patchy consolidation, not significantly changed. 2. Mild left basilar subsegmental atelectasis, also not significantly chaned. 3. Mild cardiomegaly and aortic atheroslcerosis. RPTAT: BB .Pedro Molina MD, Date Time Electronically viewed and signed by .Pedro Molina MD, on 10/25/2016 16:14 .A/
[2016-10-25 20:00] VITALS: BP 110/56
[2016-10-25] MEDS: HEPARIN 25000 UNITS/D5W 250 ML (VPH) IV SCH (20:00)
[2016-10-25] MEDS: INSULIN GLARGINE [LANtus] 3 ML PEN SC SCH (20:26)
[2016-10-25] MEDS: SENNA/DOCUSATE NA (8.6MG/50MG) TAB PO SCH (20:34)
[2016-10-26] VITALS (9 sets, daily range): BP systolic 119–136; BP diastolic 58–75; PULSE 88–90; RESP 18
[2016-10-26] MEDS: ACCU-CHEK XX SCH (02:00)
[2016-10-26] MEDS: PIPER-TAZO 2.25 GM (PMX) 50 ML IVPB SCH (05:30)
[2016-10-26] MEDS: HYDROCODONE/APAP (5/325) TAB PO PRN ×2 (05:30→17:32)
[2016-10-26] MEDS: ALBUTEROL HFA 8 GM INHALER INH SCH ×3 (05:31→21:26)
[2016-10-26 05:34] LABS: ADD SCAN DIFF NO
[2016-10-26 05:45] LABS: ABNORMAL IP MESSAGE 1; BASOPHIL # 0.1 10^3/ul (0.0-0.1); BASOPHILS % 0.3 % (0.0-2.0); EOSINOPHILS # 0.2 10^3/ul (0.0-0.5); EOSINOPHILS % 0.9 % (0.0-7.0); HEMATOCRIT 28.2 % (42.0-52.0); HEMOGLOBIN 8.8 g/dl (14.0-18.0); LYMPHOCYTES % 16.8 % (15.0-51.0); MEAN CORPUSCULAR HEMOGLOBIN 30.8 pg (29.0-33.0); MEAN CORPUSCULAR HGB CONC 31.2 g/dl (32.0-37.0); MEAN CORPUSCULAR VOLUME 98.6 fl (82.0-101.0); MEAN PLATELET VOLUME 11.9 fl (7.4-10.4); MONOCYTE # 1.9 10^3/ul (0.3-0.9); MONOCYTES % 10.7 % (0.0-11.0); NEUTROPHIL # 12.7 10^3/ul (1.6-7.5); NEUTROPHILS % 70.7 % (39.0-77.0); PLATELET COUNT 321 10^3/UL (140-415); RED BLOOD COUNT 2.86 10^6/ul (4.70-6.10); RED CELL DISTRIBUTION WIDTH 16.4 % (11.5-14.5)
[2016-10-26 06:09] LABS: POTASSIUM 5.5 mmol/L (3.5-5.1)
[2016-10-26 06:12] LABS: CREATININE 9.99 mg/dl (0.61-1.24)
[2016-10-26] MEDS: INSULIN ASPART [NOVOLOG] 3 ML PEN SC SCH ×4 (08:15→20:35)
[2016-10-26] MEDS: LACTOBACILLUS CHEW TAB PO SCH ×2 (08:45→20:34)
[2016-10-26] MEDS: ASPIRIN (EC) 81 MG TAB PO SCH (08:45)
[2016-10-26] MEDS: FAMOTIDINE 20 MG TAB PO SCH (08:45)
[2016-10-26] MEDS: ZYVOX 600 MG TAB PO SCH ×2 (08:45→20:35)
[2016-10-26] MEDS: AMLODIPINE 10 MG TAB PO SCH (09:00)
[2016-10-26] MEDS: METOPROLOL 25 MG TAB PO SCH ×2 (09:00→21:26)
--- NOTE | 2016-10-26 09:05 | CONS ---
Date/Time of Note Date/Time of Note DATE: 10/26/16 TIME: 09:03 Assessment/Plan Assessment/Plan Additional Assessment/Plan 1. Preoperative evaluation prior to lower extremity vascular surgery, possible amputation.-Now s/p LLE vascular surgery with failed graft - vascular team follows 2. Hypertension, uncontrolled - will follow s/p HD - hope BP improves. 3. Abnormal electrocardiogram, assess for acute coronary syndrome- no intervention planned now. . 4. Dyslipidemia. 5. Peripheral arterial disease, status post prior revascularization- vascular team follows 6. Lower extremity nonhealing ulceration of the toe. 7. Possible pneumonia by chest x-ray. 8. End-stage renal disease on hemodialysis- HD today. 9. Anemia. 10. Leukocytosis. 11/ Cardiomyopathy-LVEF 40-45%-negative trop x 3 since admit Consultation Date/Type/Reason Admit Date/Time Oct 18, 2016 at 16:52 Type of Consultation: id Referring Provider: OZZIE HERRERA MD 24 HR Interval Summary Free Text/Dictation NO acute change - off tele - labile BP - HD today ROS: No fever, no chills, no nausea, no vomiting, no diarrhea/constipation No recent weight changes No chest pain, no PND, no orthopnea No dizziness, blurred vision No thirst, no heat or cold intolerance Exam/Review of Systems Vital Signs Vitals Vital Signs Date Time Temp Pulse Resp B/P Pulse Ox O2 Delivery O2 Flow Rate FiO2 10/26/16 08:00 98.7 71 18 119/58 100 Intake and Output 10/25/16 10/25/16 10/26/16 15:00 23:00 07:00 Intake Total 640 ml 240 ml Output Total 100 ml Balance 640 ml 140 ml Exam General: WN/WD/NAD, AOx 2-3 HEENT: Unicetric/atraumatic/EOMI (follow commands) NECK: JVD elevated, no thyromegaly Lymph: no lymphadenopathy HEART: regular with no S3, II/ systolic murmur at apex LUNGS: Coarse sounds ABD: soft, NT, ND, +BS : Intact Neuro: non focal SKIN: chronic changes EXT: trace edema, severe PVD post op Results Result Diagram: 10/26/16 0510 10/26/16 0510 Results 24 hrs Laboratory Tests Test 10/25/16 12:13 10/25/16 16:49 10/25/16 20:22 10/26/16 05:10 Bedside Glucose 72 115 135 White Blood Count 18.0 H Red Blood Count 2.86 L Hemoglobin 8.8 L Hematocrit 28.2 L Mean Corpuscular Volume 98.6 Mean Corpuscular Hemoglobin 30.8 Mean Corpuscular Hemoglobin Concent 31.2 L Red Cell Distribution Width 16.4 H Platelet Count 321 Mean Platelet Volume 11.9 H Neutrophils % 70.7 Lymphocytes % 16.8 Monocytes % 10.7 Eosinophils % 0.9 Basophils % 0.3 Nucleated Red Blood Cells % 0.0 Neutrophils # 12.7 H Lymphocytes # 3.0 H Monocytes # 1.9 H Eosinophils # 0.2 Basophils # 0.1 Nucleated Red Blood Cells # 0.0 Sodium Level 130 L Potassium Level 5.5 H Chloride Level 89 L Carbon Dioxide Level 23 Anion Gap 24 H Blood Urea Nitrogen 75 H Creatinine 9.99 H Glucose Level 95 Calcium Level 8.0 L Test 10/26/16 08:00 Bedside Glucose 77 Medications Medications Current Medications Metoprolol Tartrate (Lopressor) 25 mg BID PO Last administered on 10/24/16 21: 45; Admin Dose 25 MG; Start 10/18/16 at 19:21 Amlodipine Besylate (Norvasc) 10 mg DAILY PO Last administered on 10/24/16 08: 56; Admin Dose 10 MG; Start 10/19/16 at 09:00 Hydralazine HCl (Apresoline) 10 mg Q4H PRN IV SBP>150 mm Hg Last administered on 10/18/16 20:35; Admin Dose 10 MG; Start 10/18/16 at 20:00 Albuterol (Ventolin Hfa) 2 puff Q8 INH Last administered on 10/26/16 05:31; Admin Dose 2 PUFF; Start 10/18/16 at 22:30 Famotidine (Pepcid) 20 mg DAILY PO Last administered on 10/24/16 08:53; Admin Dose 20 MG; Start 10/19/16 at 09:00 Ondansetron HCl (Zofran Inj) 4 mg Q6H PRN IV NAUSEA AND/OR VOMITING; Start at 22:30 Acetaminophen (Tylenol Tab) 650 mg Q6H PRN PO PAIN LEVEL 1-3 OR FEVER; Start at 22:30 Morphine Sulfate (morphine) 2 mg Q4H PRN IV SEVERE PAIN LEVEL 7-10 Last administered on 10/25/16 08:13; Admin Dose 2 MG; Start 10/18/16 at 22:30 Docusate Sodium (Colace) 100 mg Q12H PRN PO CONSTIPATION Last administered on 08:53; Admin Dose 100 MG; Start 10/18/16 at 22:30 Bisacodyl (Dulcolax Supp) 10 mg DAILY PRN OR CONSTIPATION Last administered on 10/26/16 07:04; Admin Dose 10 MG; Start 10/18/16 at 22:30 Diagnostic Test (Pha) (Accucheck) 1 ea 02 XX Last administered on 10/23/16 02: 19; Admin Dose 1 EA; Start 10/19/16 at 02:00 Acetaminophen/ Hydrocodone Bitart ([place] (10/325)) 1 tab Q4H PRN PO PAIN LEVEL 6-10 Last administered on 10/21/16 11:52; Admin Dose 1 TAB; Start 10/18/16 at 22:30 Miscellaneous Information 1 ea NOTE XX ; Start 10/18/16 at 22:30 Glucose (Glutose) 15 gm Q15M PRN PO DECREASED GLUCOSE; Start 10/18/16 at 22:30 Glucose (Glutose) 22.5 gm Q15M PRN PO DECREASED GLUCOSE; Start 10/18/16 at 22: 30 Dextrose (D50w Syringe) 25 ml Q15M PRN IV DECREASED GLUCOSE; Start 10/18/16 at 22:30 Dextrose (D50w Syringe) 50 ml Q15M PRN IV DECREASED GLUCOSE; Start 10/18/16 at 22:30 Glucagon (Glucagen) 1 mg Q15M PRN IM DECREASED GLUCOSE; Start 10/18/16 at 22:30 Glucose (Glutose) 15 gm Q15M PRN BUCCAL DECREASED GLUCOSE; Start 10/18/16 at 22 :30 Morphine Sulfate (morphine) 2 mg Q3H PRN IV PAIN Last administered on 11:36; Admin Dose 2 MG; Start 10/19/16 at 19:30 Acetaminophen/ Hydrocodone Bitart ([place] (5/325)) 1 tab Q4H PRN PO PAIN LEVEL 1 -5 Last administered on 10/25/16 17:00; Admin Dose 1 TAB; Start 10/19/16 at 19: 30 Acetaminophen/ Hydrocodone Bitart ([place] (5/325)) 2 tab Q6H PRN PO PAIN LEVEL 6 -10 Last administered on 10/26/16 05:30; Admin Dose 2 TAB; Start 10/19/16 at 19 :30 Linezolid (Zyvox) 600 mg BID PO Last administered on 10/25/16 20:30; Admin Dose 600 MG; Start 10/20/16 at 12:15 Aspirin 81 mg 81 mg DAILY PO Last administered on 10/24/16 08:53; Admin Dose 81 MG; Start 10/22/16 at 09:00 Heparin Sodium (Porcine) (Heparin 93787 Units/250 ml) 250 ml @ 5 mls/hr Q24H IV Last administered on 10/24/16 22:24; Admin Dose 5 MLS/HR; Start 10/21/16 at 20:00 Lactobacillus Acidoph/Bulgaricus (Floranex) 1 tab BID PO Last administered on 20:30; Admin Dose 1 TAB; Start 10/22/16 at 21:00 Senna/Docusate Sodium (Senokot-S) 2 tab HS PO Last administered on 10/25/16 20 :34; Admin Dose 2 TAB; Start 10/22/16 at 21:00 Lactulose 20 gm 20 gm TID PRN PO CONSTIPATION Last administered on 10/24/16 17 :35; Admin Dose 20 GM; Start 10/23/16 at 17:30 Piperacillin Sod/ Tazobactam Sod (Zosyn 2.25gm/ 50ml (Pmx)) 50 ml @ 100 mls/hr Q8 IVPB Last administered on 10/26/16 05:30; Admin Dose 100 MLS/HR; Start at 22:00 Clonidine HCl (Catapres-Tts 1 Patch) 1 patch Q7D TRANSDERM Last administered on 10/24/16 09:04; Admin Dose 1 PATCH; Start 10/24/16 at 09:00 Insulin Glargine (Lantus) 5 unit DAILY@20 SC Last administered on 10/25/16 20: 26; Admin Dose 5 UNIT; Start 10/24/16 at 20:00 JESSIE VANN MD Oct 26, 2016 09:05
--- NOTE | 2016-10-26 09:46 | CONS ---
Date/Time of Note Date/Time of Note DATE: 10/26/16 TIME: 09:45 Assessment/Plan Assessment/Plan Additional Assessment/Plan 1. 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 Failed redo bypass. 2. Severe stenosis of the right distal superficial femoral artery and occluded right posterior tibial artery. 3. End-stage renal disease on hemodialysis Tuesday, , Tuesday. 4. Accelerated hypertension. 5. Hyperlipidemia. 6. History of hypertension with peripheral arterial disease. 7. History of peripheral arterial disease status post left lower extremity bypass in September 2016. PLAN: Plan for HD today, will keep him on Tuesday, and Tuesday schedule Status post-surgical intervention with thrombectomy, exploration of the above knee popliteal graft and debridement of left lower extremity wound with wound VAC application on 10/19/2016. will follow up Consultation Date/Type/Reason Admit Date/Time Oct 18, 2016 at 16:52 Initial Consult Date 10/18/2016 Type of Consultation: NEPHROLOGY Reason for Consultation ESRD on HD Referring Provider: OZZIE HERRERA MD Exam/Review of Systems Vital Signs Vitals Vital Signs Date Time Temp Pulse Resp B/P Pulse Ox O2 Delivery O2 Flow Rate FiO2 10/26/16 08:00 98.7 71 18 119/58 100 Intake and Output 10/25/16 10/25/16 10/26/16 15:00 23:00 07:00 Intake Total 640 ml 240 ml Output Total 100 ml Balance 640 ml 140 ml Exam GENERAL: NAD HEENT: Unremarkable NECK: Supple, trachea midline. CHEST: Rise symmetrical, without dyspnea on observation HEART: Pulse RRR ABDOMEN: soft EXTREMITIES: Warm -> DSG intact Results Result Diagram: 10/26/16 0510 10/26/16 0510 Results 24 hrs Laboratory Tests Test 10/25/16 12:13 10/25/16 16:49 10/25/16 20:22 10/26/16 05:10 Bedside Glucose 72 115 135 White Blood Count 18.0 H Red Blood Count 2.86 L Hemoglobin 8.8 L Hematocrit 28.2 L Mean Corpuscular Volume 98.6 Mean Corpuscular Hemoglobin 30.8 Mean Corpuscular Hemoglobin Concent 31.2 L Red Cell Distribution Width 16.4 H Platelet Count 321 Mean Platelet Volume 11.9 H Neutrophils % 70.7 Lymphocytes % 16.8 Monocytes % 10.7 Eosinophils % 0.9 Basophils % 0.3 Nucleated Red Blood Cells % 0.0 Neutrophils # 12.7 H Lymphocytes # 3.0 H Monocytes # 1.9 H Eosinophils # 0.2 Basophils # 0.1 Nucleated Red Blood Cells # 0.0 Sodium Level 130 L Potassium Level 5.5 H Chloride Level 89 L Carbon Dioxide Level 23 Anion Gap 24 H Blood Urea Nitrogen 75 H Creatinine 9.99 H Glucose Level 95 Calcium Level 8.0 L Test 10/26/16 08:00 Bedside Glucose 77 Medications Medications Current Medications Metoprolol Tartrate (Lopressor) 25 mg BID PO Last administered on 10/24/16 21: 45; Admin Dose 25 MG; Start 10/18/16 at 19:21 Amlodipine Besylate (Norvasc) 10 mg DAILY PO Last administered on 10/24/16 08: 56; Admin Dose 10 MG; Start 10/19/16 at 09:00 Hydralazine HCl (Apresoline) 10 mg Q4H PRN IV SBP>150 mm Hg Last administered on 10/18/16 20:35; Admin Dose 10 MG; Start 10/18/16 at 20:00 Albuterol (Ventolin Hfa) 2 puff Q8 INH Last administered on 10/26/16 05:31; Admin Dose 2 PUFF; Start 10/18/16 at 22:30 Famotidine (Pepcid) 20 mg DAILY PO Last administered on 10/26/16 08:45; Admin Dose 20 MG; Start 10/19/16 at 09:00 Ondansetron HCl (Zofran Inj) 4 mg Q6H PRN IV NAUSEA AND/OR VOMITING; Start at 22:30 Acetaminophen (Tylenol Tab) 650 mg Q6H PRN PO PAIN LEVEL 1-3 OR FEVER; Start at 22:30 Morphine Sulfate (morphine) 2 mg Q4H PRN IV SEVERE PAIN LEVEL 7-10 Last administered on 10/25/16 08:13; Admin Dose 2 MG; Start 10/18/16 at 22:30 Docusate Sodium (Colace) 100 mg Q12H PRN PO CONSTIPATION Last administered on 08:53; Admin Dose 100 MG; Start 10/18/16 at 22:30 Bisacodyl (Dulcolax Supp) 10 mg DAILY PRN [place] CONSTIPATION Last administered on 10/26/16 07:04; Admin Dose 10 MG; Start 10/18/16 at 22:30 Diagnostic Test (Pha) (Accucheck) 1 ea 02 XX Last administered on 10/23/16 02: 19; Admin Dose 1 EA; Start 10/19/16 at 02:00 Acetaminophen/ Hydrocodone Bitart ([place] (10/325)) 1 tab Q4H PRN PO PAIN LEVEL 6-10 Last administered on 10/21/16 11:52; Admin Dose 1 TAB; Start 10/18/16 at 22:30 Miscellaneous Information 1 ea NOTE XX ; Start 10/18/16 at 22:30 Glucose (Glutose) 15 gm Q15M PRN PO DECREASED GLUCOSE; Start 10/18/16 at 22:30 Glucose (Glutose) 22.5 gm Q15M PRN PO DECREASED GLUCOSE; Start 10/18/16 at 22: 30 Dextrose (D50w Syringe) 25 ml Q15M PRN IV DECREASED GLUCOSE; Start 10/18/16 at 22:30 Dextrose (D50w Syringe) 50 ml Q15M PRN IV DECREASED GLUCOSE; Start 10/18/16 at 22:30 Glucagon (Glucagen) 1 mg Q15M PRN IM DECREASED GLUCOSE; Start 10/18/16 at 22:30 Glucose (Glutose) 15 gm Q15M PRN BUCCAL DECREASED GLUCOSE; Start 10/18/16 at 22 :30 Morphine Sulfate (morphine) 2 mg Q3H PRN IV PAIN Last administered on 11:36; Admin Dose 2 MG; Start 10/19/16 at 19:30 Acetaminophen/ Hydrocodone Bitart ([place] (5/325)) 1 tab Q4H PRN PO PAIN LEVEL 1 -5 Last administered on 10/25/16 17:00; Admin Dose 1 TAB; Start 10/19/16 at 19: 30 Acetaminophen/ Hydrocodone Bitart ([place] (5/325)) 2 tab Q6H PRN PO PAIN LEVEL 6 -10 Last administered on 10/26/16 05:30; Admin Dose 2 TAB; Start 10/19/16 at 19 :30 Linezolid (Zyvox) 600 mg BID PO Last administered on 10/26/16 08:45; Admin Dose 600 MG; Start 10/20/16 at 12:15 Aspirin 81 mg 81 mg DAILY PO Last administered on 10/26/16 08:45; Admin Dose 81 MG; Start 10/22/16 at 09:00 Heparin Sodium (Porcine) (Heparin 99564 Units/250 ml) 250 ml @ 5 mls/hr Q24H IV Last administered on 10/24/16 22:24; Admin Dose 5 MLS/HR; Start 10/21/16 at 20:00 Lactobacillus Acidoph/Bulgaricus (Floranex) 1 tab BID PO Last administered on 08:45; Admin Dose 1 TAB; Start 10/22/16 at 21:00 Senna/Docusate Sodium (Senokot-S) 2 tab HS PO Last administered on 10/25/16 20 :34; Admin Dose 2 TAB; Start 10/22/16 at 21:00 Lactulose 20 gm 20 gm TID PRN PO CONSTIPATION Last administered on 10/24/16 17 :35; Admin Dose 20 GM; Start 10/23/16 at 17:30 Piperacillin Sod/ Tazobactam Sod (Zosyn 2.25gm/ 50ml (Pmx)) 50 ml @ 100 mls/hr Q8 IVPB Last administered on 10/26/16 05:30; Admin Dose 100 MLS/HR; Start at 22:00 Clonidine HCl (Catapres-Tts 1 Patch) 1 patch Q7D TRANSDERM Last administered on 10/24/16 09:04; Admin Dose 1 PATCH; Start 10/24/16 at 09:00 Insulin Glargine (Lantus) 5 unit DAILY@20 SC Last administered on 10/25/16 20: 26; Admin Dose 5 UNIT; Start 10/24/16 at 20:00 LISA MERRITT MD Oct 26, 2016 09:46
[2016-10-26] MEDS: morphine 2 MG INJ IV PRN (10:36)
--- NOTE | 2016-10-26 13:12 | CONS ---
Date/Time of Note Date/Time of Note DATE: 10/26/16 TIME: 13:10 Assessment/Plan Assessment/Plan Chief Complaint/Hosp Course SUBJECTIVE: No events overnight. In HHD, shivering, no fevers INDWELLINGS: Right IJ Perm-A-Cath. ANTIMICROBIALS: Zyvox Zosyn ALLERGIES: VANCOMYCIN. ASSESSMENT: 1. Severe peripheral vascular disease with bilateral lower extremity gangrene, status post-surgical intervention with thrombectomy, exploration of the above knee popliteal graft and debridement of left lower extremity wound with wound VAC application on 10/19/2016. 2. End-stage renal disease, hemodialysis dependent. 3. Anemia of chronic disease. 4. DM 5. HTN 6. SIRS with low grade temps and leukocytosis===> ?line sepsis 7. HCAP Plan: Clinically unchanged, [facility] change Zosyn to Merrem, continue Zyvox, pending L GRIS MEYERS HD nurse Problems: Consultation Date/Type/Reason Admit Date/Time Oct 18, 2016 at 16:52 Type of Consultation: ID Referring Provider: OZZIE HERRERA MD Exam/Review of Systems Vital Signs Vitals Vital Signs Date Time Temp Pulse Resp B/P Pulse Ox O2 Delivery O2 Flow Rate FiO2 10/26/16 10:20 88 18 10/26/16 08:00 98.7 119/58 100 Intake and Output 10/25/16 10/25/16 10/26/16 15:00 23:00 07:00 Intake Total 640 ml 240 ml Output Total 100 ml Balance 640 ml 140 ml Results Result Diagram: 10/26/16 0510 10/26/16 0510 Results 24 hrs Laboratory Tests Test 10/25/16 16:49 10/25/16 20:22 10/26/16 05:10 10/26/16 08:00 Bedside Glucose 115 135 77 White Blood Count 18.0 H Red Blood Count 2.86 L Hemoglobin 8.8 L Hematocrit 28.2 L Mean Corpuscular Volume 98.6 Mean Corpuscular Hemoglobin 30.8 Mean Corpuscular Hemoglobin Concent 31.2 L Red Cell Distribution Width 16.4 H Platelet Count 321 Mean Platelet Volume 11.9 H Neutrophils % 70.7 Lymphocytes % 16.8 Monocytes % 10.7 Eosinophils % 0.9 Basophils % 0.3 Nucleated Red Blood Cells % 0.0 Neutrophils # 12.7 H Lymphocytes # 3.0 H Monocytes # 1.9 H Eosinophils # 0.2 Basophils # 0.1 Nucleated Red Blood Cells # 0.0 Sodium Level 130 L Potassium Level 5.5 H Chloride Level 89 L Carbon Dioxide Level 23 Anion Gap 24 H Blood Urea Nitrogen 75 H Creatinine 9.99 H Glucose Level 95 Calcium Level 8.0 L Test 10/26/16 12:01 Bedside Glucose 143 Medications Medications Current Medications Metoprolol Tartrate (Lopressor) 25 mg BID PO Last administered on 10/24/16 21: 45; Admin Dose 25 MG; Start 10/18/16 at 19:21 Amlodipine Besylate (Norvasc) 10 mg DAILY PO Last administered on 10/24/16 08: 56; Admin Dose 10 MG; Start 10/19/16 at 09:00 Hydralazine HCl (Apresoline) 10 mg Q4H PRN IV SBP>150 mm Hg Last administered on 10/18/16 20:35; Admin Dose 10 MG; Start 10/18/16 at 20:00 Albuterol (Ventolin Hfa) 2 puff Q8 INH Last administered on 10/26/16 05:31; Admin Dose 2 PUFF; Start 10/18/16 at 22:30 Famotidine (Pepcid) 20 mg DAILY PO Last administered on 10/26/16 08:45; Admin Dose 20 MG; Start 10/19/16 at 09:00 Ondansetron HCl (Zofran Inj) 4 mg Q6H PRN IV NAUSEA AND/OR VOMITING; Start at 22:30 Acetaminophen (Tylenol Tab) 650 mg Q6H PRN PO PAIN LEVEL 1-3 OR FEVER; Start at 22:30 Morphine Sulfate (morphine) 2 mg Q4H PRN IV SEVERE PAIN LEVEL 7-10 Last administered on 10/26/16 10:36; Admin Dose 2 MG; Start 10/18/16 at 22:30 Docusate Sodium (Colace) 100 mg Q12H PRN PO CONSTIPATION Last administered on 08:53; Admin Dose 100 MG; Start 10/18/16 at 22:30 Bisacodyl (Dulcolax Supp) 10 mg DAILY PRN [place] CONSTIPATION Last administered on 10/26/16 07:04; Admin Dose 10 MG; Start 10/18/16 at 22:30 Diagnostic Test (Pha) (Accucheck) 1 ea 02 XX Last administered on 10/23/16 02: 19; Admin Dose 1 EA; Start 10/19/16 at 02:00 Acetaminophen/ Hydrocodone Bitart ([place] (10/325)) 1 tab Q4H PRN PO PAIN LEVEL 6-10 Last administered on 10/21/16 11:52; Admin Dose 1 TAB; Start 10/18/16 at 22:30 Miscellaneous Information 1 ea NOTE XX ; Start 10/18/16 at 22:30 Glucose (Glutose) 15 gm Q15M PRN PO DECREASED GLUCOSE; Start 10/18/16 at 22:30 Glucose (Glutose) 22.5 gm Q15M PRN PO DECREASED GLUCOSE; Start 10/18/16 at 22: 30 Dextrose (D50w Syringe) 25 ml Q15M PRN IV DECREASED GLUCOSE; Start 10/18/16 at 22:30 Dextrose (D50w Syringe) 50 ml Q15M PRN IV DECREASED GLUCOSE; Start 10/18/16 at 22:30 Glucagon (Glucagen) 1 mg Q15M PRN IM DECREASED GLUCOSE; Start 10/18/16 at 22:30 Glucose (Glutose) 15 gm Q15M PRN BUCCAL DECREASED GLUCOSE; Start 10/18/16 at 22 :30 Morphine Sulfate (morphine) 2 mg Q3H PRN IV PAIN Last administered on 11:36; Admin Dose 2 MG; Start 10/19/16 at 19:30 Acetaminophen/ Hydrocodone Bitart ([place] (5/325)) 1 tab Q4H PRN PO PAIN LEVEL 1 -5 Last administered on 10/25/16 17:00; Admin Dose 1 TAB; Start 10/19/16 at 19: 30 Acetaminophen/ Hydrocodone Bitart ([place] (5/325)) 2 tab Q6H PRN PO PAIN LEVEL 6 -10 Last administered on 10/26/16 05:30; Admin Dose 2 TAB; Start 10/19/16 at 19 :30 Linezolid (Zyvox) 600 mg BID PO Last administered on 10/26/16 08:45; Admin Dose 600 MG; Start 10/20/16 at 12:15 Aspirin 81 mg 81 mg DAILY PO Last administered on 10/26/16 08:45; Admin Dose 81 MG; Start 10/22/16 at 09:00 Heparin Sodium (Porcine) (Heparin 95798 Units/250 ml) 250 ml @ 5 mls/hr Q24H IV Last administered on 10/24/16 22:24; Admin Dose 5 MLS/HR; Start 10/21/16 at 20:00 Lactobacillus Acidoph/Bulgaricus (Floranex) 1 tab BID PO Last administered on 08:45; Admin Dose 1 TAB; Start 10/22/16 at 21:00 Senna/Docusate Sodium (Senokot-S) 2 tab HS PO Last administered on 10/25/16 20 :34; Admin Dose 2 TAB; Start 10/22/16 at 21:00 Lactulose 20 gm 20 gm TID PRN PO CONSTIPATION Last administered on 10/24/16 17 :35; Admin Dose 20 GM; Start 10/23/16 at 17:30 Piperacillin Sod/ Tazobactam Sod (Zosyn 2.25gm/ 50ml (Pmx)) 50 ml @ 100 mls/hr Q8 IVPB Last administered on 10/26/16 05:30; Admin Dose 100 MLS/HR; Start at 22:00 Clonidine HCl (Catapres-Tts 1 Patch) 1 patch Q7D TRANSDERM Last administered on 10/24/16 09:04; Admin Dose 1 PATCH; Start 10/24/16 at 09:00 Insulin Glargine (Lantus) 5 unit DAILY@20 SC Last administered on 10/25/16 20: 26; Admin Dose 5 UNIT; Start 10/24/16 at 20:00 DARLENE MCKEE NP Oct 26, 2016 13:12
[2016-10-26] MEDS: DOCUSATE SODIUM 100 MG CAP PO PRN (13:32)
[2016-10-26] MEDS: LACTULOSE 30ML CUP PO PRN (13:32)
--- NOTE | 2016-10-26 15:36 | PN ---
Date/Time of Note Date/Time of Note DATE: 10/26/16 TIME: 15:31 Assessment/Plan VTE Prophylaxis VTE Prophylaxis Intervention: heparin Lines/Catheters IV [facility] Saline Lock Urinary Cath still in place: No Assessment/Plan Chief Complaint/Hosp Course Assessment and plan 1. 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 Patient does have history of bypass on area that had thrombosed. currently with wound VAC in place. Continue on heparin drip. Tentative plan for possible BKA. Also noted with right lower extremity gangrene. Tentative plan for angiogram of right lower extremity. Follow-up with recommendations. 2. ESRD on dialysis. Continue on HD. 3. Hypertension. Continue on antihypertensives and adjust needed 4. Anemia of chronic disease. H&H stable. Monitor for now. 5. History of diabetes. Continue on insulin regimen. Will adjust as needed 6. CAD. Continue on antiplatelet therapy Disposition and plan: Continue with dialysis. Continue with wound care. Tentative plan for surgical intervention for left lower extremity. Tentative plan for angiogram in the right lower extremity. We'll follow-up Discussed on of care with Dr. Cha Problems: Subjective 24 Hr Interval Summary Free Text/Dictation Was receiving dialysis during visit. Does report having some left lower extremity pain Exam/Review of Systems Vital Signs Vitals Vital Signs Date Time Temp Pulse Resp B/P Pulse Ox O2 Delivery O2 Flow Rate FiO2 10/26/16 10:20 88 18 10/26/16 08:00 98.7 119/58 100 Intake and Output 10/25/16 10/25/16 10/26/16 14:59 22:59 06:59 Intake Total 640 ml 240 ml Output Total 100 ml Balance 640 ml 140 ml Exam General: Reports having some pain on left lower extremity. Noted with minimal distress. Eyes: pupils equal round, Anicteric sclera Neck: Supple nontender, no JVD Cardiac: S1, S2 auscultated, regular rhythm and rate Pulmonary: No coarse rhonchi or breathing auscultated GI: Abdomen soft nontender nondistended, bowel sounds active Extremities: Noted with wound VAC on left lower extremity. Toes necrotic in appearance. Right lower extremity also noted with necrotic first toe Skin: Scabs and chronic discoloration of bilateral lower extremities. Dialysis access on right upper chest Neurologic: Alert to person place and time and situation Results Result Diagram: 10/26/16 0510 10/26/16 0510 Results 24 hrs Laboratory Tests Test 10/25/16 16:49 10/25/16 20:22 10/26/16 05:10 10/26/16 08:00 Bedside Glucose 115 135 77 White Blood Count 18.0 H Red Blood Count 2.86 L Hemoglobin 8.8 L Hematocrit 28.2 L Mean Corpuscular Volume 98.6 Mean Corpuscular Hemoglobin 30.8 Mean Corpuscular Hemoglobin Concent 31.2 L Red Cell Distribution Width 16.4 H Platelet Count 321 Mean Platelet Volume 11.9 H Neutrophils % 70.7 Lymphocytes % 16.8 Monocytes % 10.7 Eosinophils % 0.9 Basophils % 0.3 Nucleated Red Blood Cells % 0.0 Neutrophils # 12.7 H Lymphocytes # 3.0 H Monocytes # 1.9 H Eosinophils # 0.2 Basophils # 0.1 Nucleated Red Blood Cells # 0.0 Sodium Level 130 L Potassium Level 5.5 H Chloride Level 89 L Carbon Dioxide Level 23 Anion Gap 24 H Blood Urea Nitrogen 75 H Creatinine 9.99 H Glucose Level 95 Calcium Level 8.0 L Test 10/26/16 12:01 Bedside Glucose 143 Medications Medications Current Medications Metoprolol Tartrate (Lopressor) 25 mg BID PO Last administered on 10/24/16 21: 45; Admin Dose 25 MG; Start 10/18/16 at 19:21 Amlodipine Besylate (Norvasc) 10 mg DAILY PO Last administered on 10/24/16 08: 56; Admin Dose 10 MG; Start 10/19/16 at 09:00 Hydralazine HCl (Apresoline) 10 mg Q4H PRN IV SBP>150 mm Hg Last administered on 10/18/16 20:35; Admin Dose 10 MG; Start 10/18/16 at 20:00 Albuterol (Ventolin Hfa) 2 puff Q8 INH Last administered on 10/26/16 05:31; Admin Dose 2 PUFF; Start 10/18/16 at 22:30 Famotidine (Pepcid) 20 mg DAILY PO Last administered on 10/26/16 08:45; Admin Dose 20 MG; Start 10/19/16 at 09:00 Ondansetron HCl (Zofran Inj) 4 mg Q6H PRN IV NAUSEA AND/OR VOMITING; Start at 22:30 Acetaminophen (Tylenol Tab) 650 mg Q6H PRN PO PAIN LEVEL 1-3 OR FEVER; Start at 22:30 Morphine Sulfate (morphine) 2 mg Q4H PRN IV SEVERE PAIN LEVEL 7-10 Last administered on 10/26/16 10:36; Admin Dose 2 MG; Start 10/18/16 at 22:30 Docusate Sodium (Colace) 100 mg Q12H PRN PO CONSTIPATION Last administered on 13:32; Admin Dose 100 MG; Start 10/18/16 at 22:30 Bisacodyl (Dulcolax Supp) 10 mg DAILY PRN [place] CONSTIPATION Last administered on 10/26/16 07:04; Admin Dose 10 MG; Start 10/18/16 at 22:30 Diagnostic Test (Pha) (Accucheck) 1 ea 02 XX Last administered on 10/23/16 02: 19; Admin Dose 1 EA; Start 10/19/16 at 02:00 Acetaminophen/ Hydrocodone Bitart ([place] (10)) 1 tab Q4H PRN PO PAIN LEVEL 6-10 Last administered on 10/21/16 11:52; Admin Dose 1 TAB; Start 10/18/16 at 22:30 Miscellaneous Information 1 ea NOTE XX ; Start 10/18/16 at 22:30 Glucose (Glutose) 15 gm Q15M PRN PO DECREASED GLUCOSE; Start 10/18/16 at 22:30 Glucose (Glutose) 22.5 gm Q15M PRN PO DECREASED GLUCOSE; Start 10/18/16 at 22: 30 Dextrose (D50w Syringe) 25 ml Q15M PRN IV DECREASED GLUCOSE; Start 10/18/16 at 22:30 Dextrose (D50w Syringe) 50 ml Q15M PRN IV DECREASED GLUCOSE; Start 10/18/16 at 22:30 Glucagon (Glucagen) 1 mg Q15M PRN IM DECREASED GLUCOSE; Start 10/18/16 at 22:30 Glucose (Glutose) 15 gm Q15M PRN BUCCAL DECREASED GLUCOSE; Start 10/18/16 at 22 :30 Morphine Sulfate (morphine) 2 mg Q3H PRN IV PAIN Last administered on 11:36; Admin Dose 2 MG; Start 10/19/16 at 19:30 Acetaminophen/ Hydrocodone Bitart ([place] (5/325)) 1 tab Q4H PRN PO PAIN LEVEL 1 -5 Last administered on 10/25/16 17:00; Admin Dose 1 TAB; Start 10/19/16 at 19: 30 Acetaminophen/ Hydrocodone Bitart ([place] (5/325)) 2 tab Q6H PRN PO PAIN LEVEL 6 -10 Last administered on 10/26/16 05:30; Admin Dose 2 TAB; Start 10/19/16 at 19 :30 Linezolid (Zyvox) 600 mg BID PO Last administered on 10/26/16 08:45; Admin Dose 600 MG; Start 10/20/16 at 12:15 Aspirin 81 mg 81 mg DAILY PO Last administered on 10/26/16 08:45; Admin Dose 81 MG; Start 10/22/16 at 09:00 Heparin Sodium (Porcine) (Heparin 52421 Units/250 ml) 250 ml @ 5 mls/hr Q24H IV Last administered on 10/24/16 22:24; Admin Dose 5 MLS/HR; Start 10/21/16 at 20:00 Lactobacillus Acidoph/Bulgaricus (Floranex) 1 tab BID PO Last administered on 08:45; Admin Dose 1 TAB; Start 10/22/16 at 21:00 Senna/Docusate Sodium (Senokot-S) 2 tab HS PO Last administered on 10/25/16 20 :34; Admin Dose 2 TAB; Start 10/22/16 at 21:00 Lactulose (Enulose) 20 gm TID PRN PO CONSTIPATION Last administered on 13:32; Admin Dose 20 GM; Start 10/23/16 at 17:30 Clonidine HCl (Catapres-Tts 1 Patch) 1 patch Q7D TRANSDERM Last administered on 10/24/16 09:04; Admin Dose 1 PATCH; Start 10/24/16 at 09:00 Insulin Glargine 5 unit 5 unit DAILY@20 SC Last administered on 10/25/16 20:26 ; Admin Dose 5 UNIT; Start 10/24/16 at 20:00 Meropenem (Merrem 500 Mg/ 100 ml (Pmx)) 100 ml @ 200 mls/hr Q24H IVPB ; Start 10/26/16 at 21:00 REGIDOR,GERHARD Oct 26, 2016 15:36
--- NOTE | 2016-10-26 16:58 | PN ---
Date/Time of Note Date/Time of Note DATE: 10/26/16 TIME: 16:52 Assessment/Plan Lines/Catheters IV Catheter Type (from Nrs): Saline Lock Correa in Place (from Nrs): No Assessment/Plan Chief Complaint/Hosp Course -Bilateral lower extremity atherosclerosis with gangrene: It seems that the patient's left lower extremity redo revascularization has thrombosed despite being on heparin gtt. Unfortunately, no benefit for re-exploration and thrombectomy as the graft has thrombosed in such short time and while pt kept on Hep gtt overnight. I have discussed the findings with the patient given his limited conduits he will likely require a major amputation, BKA .His rest pain had become intolerable and he would like to proceed with surgery -Right lower extremity gangrene: will schedule patient for angiogram this week pending entry level lab technician availability -End-stage renal disease: Will eventually plan for creation of a new fistula -Optimize vascular status (BP meds, diet, nutrition, exercise, sugar control, antiplatelets). -Continue antibiotics -Continue with wound vac for now -Appreciate cardiology evaluation -Apply Betadine paint to all the incision lines for now. -Discussed findings, plan and management with the patient and family at the bedside and they understand with certified senior net software engineer -Thank you for allowing us to participate in the care of your patient. Please call with any questions. Problems: Subjective 24 Hr Interval Summary patient with worsening LLE rest rest pain, tolerating HD at bedside today Exam/Review of Systems Vital Signs Vitals Vital Signs Date Time Temp Pulse Resp B/P Pulse Ox O2 Delivery O2 Flow Rate FiO2 10/26/16 10:20 88 18 10/26/16 08:00 98.7 119/58 100 Intake and Output 10/25/16 10/25/16 10/26/16 15:00 23:00 07:00 Intake Total 640 ml 240 ml Output Total 100 ml Balance 640 ml 140 ml Exam Free Text/Dictation GENERAL: Alert and oriented x3, PULMONARY: Clear to auscultation bilaterally. CARDIOVASCULAR: S1, S2 present. ABDOMEN: Soft, nontender, nondistended. Bowel sounds positive. EXTREMITIES: Right lower extremity palpable femoral pulse, nonpalpable pedal pulse. Motor, sensory intact. Cap refill 3 to 4 seconds. Gangrene of the first and second toe with surrounding erythema and pain of the first toe Left lower extremity: Palpable femoral pulse, nonpalpable graft at the kneel. Edema 2+. Dry Gangrene of the first and second toe with erythema. His capillary refill 3-4 seconds. Wound vac intact, Andreas intact and dry Results Result Diagram: 10/26/16 0510 10/26/16 0510 CYNDI CARR MD Oct 26, 2016 16:58
[2016-10-26] MEDS: NA PHOSPHATE/BIPHOS 133 ML ENEMA PR PRN (18:33)
[2016-10-26] MEDS: HEPARIN 25000 UNITS/D5W 250 ML (VPH) IV SCH ×2 (20:00→23:35)
[2016-10-26] MEDS: INSULIN GLARGINE [LANtus] 3 ML PEN SC SCH (20:34)
[2016-10-26] MEDS: MEROPENEM 500 MG/100 ML (PMX) 100 ML IVPB SCH (20:34)
[2016-10-26] MEDS: SENNA/DOCUSATE NA (8.6MG/50MG) TAB PO SCH (20:35)
[2016-10-27] VITALS (24 sets, daily range): BP systolic 118–164; BP diastolic 56–75; PULSE 80–86; RESP 15–22
[2016-10-27] MEDS: morphine 2 MG INJ IV PRN ×2 (00:49→05:41)
[2016-10-27] MEDS: ACCU-CHEK XX SCH (02:31)
[2016-10-27] MEDS: ALBUTEROL HFA 8 GM INHALER INH SCH ×3 (05:38→22:10)
[2016-10-27 05:52] LABS: ADD SCAN DIFF NO
[2016-10-27 06:10] LABS: ABNORMAL IP MESSAGE 1; BASOPHIL # 0.1 10^3/ul (0.0-0.1); BASOPHILS % 0.4 % (0.0-2.0); EOSINOPHILS # 0.2 10^3/ul (0.0-0.5); HEMATOCRIT 29.8 % (42.0-52.0); HEMOGLOBIN 9.4 g/dl (14.0-18.0); LYMPHOCYTES # 2.5 10^3/ul (0.8-2.9); LYMPHOCYTES % 14.1 % (15.0-51.0); MEAN CORPUSCULAR HEMOGLOBIN 31.3 pg (29.0-33.0); MEAN CORPUSCULAR HGB CONC 31.5 g/dl (32.0-37.0); MEAN CORPUSCULAR VOLUME 99.3 fl (82.0-101.0); MONOCYTE # 1.9 10^3/ul (0.3-0.9); MONOCYTES % 10.7 % (0.0-11.0); NEUTROPHILS % 73.2 % (39.0-77.0); PLATELET COUNT 355 10^3/UL (140-415); RED CELL DISTRIBUTION WIDTH 16.5 % (11.5-14.5); WHITE BLOOD COUNT 17.8 10^3/ul (4.8-10.8)
[2016-10-27 06:32] LABS: POTASSIUM 4.4 mmol/L (3.5-5.1)
[2016-10-27 06:35] LABS: CALCIUM 7.7 mg/dl (8.4-10.2); CREATININE 7.51 mg/dl (0.61-1.24)
[2016-10-27] MEDS: INSULIN ASPART [NOVOLOG] 3 ML PEN SC SCH ×4 (08:11→20:47)
--- NOTE | 2016-10-27 08:59 | PN ---
Date/Time of Note Date/Time of Note DATE: 10/27/16 TIME: 08:54 Assessment/Plan VTE Prophylaxis VTE Prophylaxis Intervention: heparin Lines/Catheters IV [facility]atheter Type [facility]from [facility]): [facility] Urinary Cath still in place: No Assessment/Plan Chief Complaint/Hosp Course Assessment and plan 1. 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 Patient does have history of bypass on area that had thrombosed. Continue on heparin drip. plan for possible BKA of LLE 10/27/16. Also noted with right lower extremity gangrene. Tentative plan for angiogram of right lower extremity. Follow-up with vascular surgeon recommendations. 2. ESRD on dialysis. Continue on HD. 3. Hypertension. Continue on antihypertensives and adjust needed 4. Anemia of chronic disease. H&H stable. Monitor for now. 5. History of diabetes. Continue on insulin regimen. Will adjust as needed 6. CAD. Continue on antiplatelet therapy Disposition and plan: plan for LLE BKA. will follow up postop. cont with surgeon recterrance Discussed on of care with Dr. Cha Problems: Subjective 24 Hr Interval Summary Free Text/Dictation still reports pain on left lower extremity Exam/Review of Systems Vital Signs Vitals Vital Signs Date Time Temp Pulse Resp B/P Pulse Ox O2 Delivery O2 Flow Rate FiO2 10/27/16 07:52 98.9 74 18 118/56 94 Intake and Output 10/26/16 10/26/16 10/27/16 15:00 23:00 07:00 Intake Total 500 ml 1050 ml 69.1 ml Output Total 2500 ml 0 ml Balance -2000 ml 1050 ml 69.1 ml Exam General:still reports having left lower extremity pain Eyes: pupils equal round, Anicteric sclera Neck: no jvd seen Cardiac: regular rate Pulmonary: No coarse rhonchi or breathing auscultated GI: Abdomen soft nontender nondistended, bowel sounds active Extremities: Noted with wound VAC on left lower extremity. Toes necrotic in appearance still, not much changed. Right lower extremity also noted with necrotic first toe Skin: Scabs and chronic discoloration of bilateral lower extremities. Dialysis access on right upper chest Neurologic: Alert to person place and time and situation Results Result Diagram: 10/27/16 0531 10/27/16 0531 Results 24 hrs Laboratory Tests Test 10/26/16 12:01 10/26/16 20:26 10/27/16 01:48 10/27/16 05:31 Bedside Glucose 143 198 96 White Blood Count 17.8 H Red Blood Count 3.00 L Hemoglobin 9.4 L Hematocrit 29.8 L Mean Corpuscular Volume 99.3 Mean Corpuscular Hemoglobin 31.3 Mean Corpuscular Hemoglobin Concent 31.5 L Red Cell Distribution Width 16.5 H Platelet Count 355 Mean Platelet Volume 12.0 H Neutrophils % 73.2 Lymphocytes % 14.1 L Monocytes % 10.7 Eosinophils % 1.0 Basophils % 0.4 Nucleated Red Blood Cells % 0.0 Neutrophils # 13.0 H Lymphocytes # 2.5 Monocytes # 1.9 H Eosinophils # 0.2 Basophils # 0.1 Nucleated Red Blood Cells # 0.0 Sodium Level 138 Potassium Level 4.4 Chloride Level 95 L Carbon Dioxide Level 26 Anion Gap 21 H Blood Urea Nitrogen 49 #H Creatinine 7.51 #H Glucose Level 83 Calcium Level 7.7 L Test 10/27/16 08:02 Bedside Glucose 72 Medications Medications Current Medications Metoprolol Tartrate (Lopressor) 25 mg BID PO Last administered on 10/26/16 21: 26; Admin Dose 25 MG; Start 10/18/16 at 19:21 Amlodipine Besylate (Norvasc) 10 mg DAILY PO Last administered on 10/24/16 08: 56; Admin Dose 10 MG; Start 10/19/16 at 09:00 Hydralazine HCl (Apresoline) 10 mg Q4H PRN IV SBP>150 mm Hg Last administered on 10/18/16 20:35; Admin Dose 10 MG; Start 10/18/16 at 20:00 Albuterol (Ventolin Hfa) 2 puff Q8 INH Last administered on 10/27/16 05:38; Admin Dose 2 PUFF; Start 10/18/16 at 22:30 Famotidine (Pepcid) 20 mg DAILY PO Last administered on 10/26/16 08:45; Admin Dose 20 MG; Start 10/19/16 at 09:00 Ondansetron HCl (Zofran Inj) 4 mg Q6H PRN IV NAUSEA AND/OR VOMITING; Start at 22:30 Acetaminophen (Tylenol Tab) 650 mg Q6H PRN PO PAIN LEVEL 1-3 OR FEVER; Start at 22:30 Morphine Sulfate (morphine) 2 mg Q4H PRN IV SEVERE PAIN LEVEL 7-10 Last administered on 10/27/16 05:41; Admin Dose 2 MG; Start 10/18/16 at 22:30 Docusate Sodium (Colace) 100 mg Q12H PRN PO CONSTIPATION Last administered on 13:32; Admin Dose 100 MG; Start 10/18/16 at 22:30 Bisacodyl (Dulcolax Supp) 10 mg DAILY PRN [place] CONSTIPATION Last administered on 10/26/16 07:04; Admin Dose 10 MG; Start 10/18/16 at 22:30 Diagnostic Test (Pha) (Accucheck) 1 ea 02 XX Last administered on 10/27/16 02: 31; Admin Dose 1 EA; Start 10/19/16 at 02:00 Acetaminophen/ Hydrocodone Bitart ([place] (10/325)) 1 tab Q4H PRN PO PAIN LEVEL 6-10 Last administered on 10/21/16 11:52; Admin Dose 1 TAB; Start 10/18/16 at 22:30 Miscellaneous Information 1 ea NOTE XX ; Start 10/18/16 at 22:30 Glucose (Glutose) 15 gm Q15M PRN PO DECREASED GLUCOSE; Start 10/18/16 at 22:30 Glucose (Glutose) 22.5 gm Q15M PRN PO DECREASED GLUCOSE; Start 10/18/16 at 22: 30 Dextrose (D50w Syringe) 25 ml Q15M PRN IV DECREASED GLUCOSE; Start 10/18/16 at 22:30 Dextrose (D50w Syringe) 50 ml Q15M PRN IV DECREASED GLUCOSE; Start 10/18/16 at 22:30 Glucagon (Glucagen) 1 mg Q15M PRN IM DECREASED GLUCOSE; Start 10/18/16 at 22:30 Glucose (Glutose) 15 gm Q15M PRN BUCCAL DECREASED GLUCOSE; Start 10/18/16 at 22 :30 Morphine Sulfate (morphine) 2 mg Q3H PRN IV PAIN Last administered on 11:36; Admin Dose 2 MG; Start 10/19/16 at 19:30 Acetaminophen/ Hydrocodone Bitart ([place] (5/325)) 1 tab Q4H PRN PO PAIN LEVEL 1 -5 Last administered on 10/25/16 17:00; Admin Dose 1 TAB; Start 10/19/16 at 19: 30 Acetaminophen/ Hydrocodone Bitart ([place] (5/325)) 2 tab Q6H PRN PO PAIN LEVEL 6 -10 Last administered on 10/26/16 17:32; Admin Dose 2 TAB; Start 10/19/16 at 19 :30 Linezolid (Zyvox) 600 mg BID PO Last administered on 10/26/16 20:35; Admin Dose 600 MG; Start 10/20/16 at 12:15 Aspirin 81 mg 81 mg DAILY PO Last administered on 10/26/16 08:45; Admin Dose 81 MG; Start 10/22/16 at 09:00 Heparin Sodium (Porcine) (Heparin 58573 Units/250 ml) 250 ml @ 5 mls/hr Q24H IV Last administered on 10/26/16 23:35; Admin Dose 5 MLS/HR; Start 10/21/16 at 20:00; Status Future Hold Lactobacillus Acidoph/Bulgaricus (Floranex) 1 tab BID PO Last administered on 20:34; Admin Dose 1 TAB; Start 10/22/16 at 21:00 Senna/Docusate Sodium (Senokot-S) 2 tab HS PO Last administered on 10/26/16 20 :35; Admin Dose 2 TAB; Start 10/22/16 at 21:00 Lactulose (Enulose) 20 gm TID PRN PO CONSTIPATION Last administered on 13:32; Admin Dose 20 GM; Start 10/23/16 at 17:30 Clonidine HCl (Catapres-Tts 1 Patch) 1 patch Q7D TRANSDERM Last administered on 10/24/16 09:04; Admin Dose 1 PATCH; Start 10/24/16 at 09:00 Insulin Glargine 5 unit 5 unit DAILY@20 SC Last administered on 10/26/16 20:34 ; Admin Dose 5 UNIT; Start 10/24/16 at 20:00 Meropenem (Merrem 500 Mg/ 100 ml (Pmx)) 100 ml @ 200 mls/hr Q24H IVPB Last administered on 10/26/16 20:34; Admin Dose 200 MLS/HR; Start 10/26/16 at 21:00 Sodium Biphosphate/ Sodium Phosphate (Fleet Enema) 133 ml DAILY PRN [place] CONSTIPATION Last administered on 10/26/16t 18:33; Admin Dose 133 ML; Start at 18:00 GERHARD ALVES Oct 27, 2016 08:59
[2016-10-27] MEDS: ASPIRIN (EC) 81 MG TAB PO SCH (09:00)
[2016-10-27] MEDS: METOPROLOL 25 MG TAB PO SCH ×2 (09:00→20:37)
[2016-10-27] MEDS: FAMOTIDINE 20 MG TAB PO SCH (09:00)
[2016-10-27] MEDS: ZYVOX 600 MG TAB PO SCH ×2 (09:00→20:36)
[2016-10-27] MEDS: AMLODIPINE 10 MG TAB PO SCH (09:00)
[2016-10-27] MEDS: LACTOBACILLUS CHEW TAB PO SCH ×2 (09:00→20:37)
[2016-10-27] MEDS ORDERED: ROCURONIUM 50 MG INJ ONE (09:29)
[2016-10-27] MEDS ORDERED: FENTAnyl 50 MCG/ML VIAL ONE (09:29)
[2016-10-27] MEDS ORDERED: PROPOFOL 20 ML ONE (09:29)
[2016-10-27] MEDS ORDERED: ONDANSETRON 4 MG INJ ONE (09:29)
[2016-10-27] MEDS ORDERED: SUCCINYLCHOLINE CHLORIDE 100 MG/5 ML SYG IV ONE (09:29)
[2016-10-27] MEDS ORDERED: DEXTROSE 50% 50 ML SYRINGE IV PRN (09:30)
[2016-10-27] MEDS ORDERED: BUPIVACAINE 0.25% (MPF) 30 ML INJ ONE (10:19)
[2016-10-27] MEDS ORDERED: HYDROmorphONE (0.2 MG/ML) 10ML SYG IV PRN ×3 (10:30)
[2016-10-27] MEDS ORDERED: ONDANSETRON 4 MG INJ IV PRN (10:30)
[2016-10-27] MEDS ORDERED: FENTAnyl 50 MCG/ML VIAL IV PRN ×2 (10:30)
[2016-10-27] MEDS ORDERED: MEPERIDINE 25 MG INJ IV PRN (10:30)
[2016-10-27] MEDS ORDERED: LABETALOL HCL 20MG INJ IV PRN (10:30)
[2016-10-27] MEDS ORDERED: hydrALAzine 20 MG INJ IV PRN (10:30)
[2016-10-27] MEDS ORDERED: POLYMYXIN B 500000 UNIT INJ ONE (10:31)
--- NOTE | 2016-10-27 10:41 | CONS ---
Date/Time of Note Date/Time of Note DATE: 10/27/16 TIME: 10:39 Assessment/Plan Assessment/Plan Additional Assessment/Plan 1. 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 Failed redo bypass. 2. Severe stenosis of the right distal superficial femoral artery and occluded right posterior tibial artery. 3. End-stage renal disease on hemodialysis Tuesday, , Tuesday. 4. Accelerated hypertension. 5. Hyperlipidemia. 6. History of hypertension with peripheral arterial disease. 7. History of peripheral arterial disease status post left lower extremity bypass in September 2016. PLAN: Plan for HD tomorrow , will keep him on Tuesday, and Tuesday schedule Status post-surgical intervention with thrombectomy, exploration of the above knee popliteal graft and debridement of left lower extremity wound with wound VAC application on 10/19/2016. will follow up Consultation Date/Type/Reason Admit Date/Time Oct 18, 2016 at 16:52 Initial Consult Date 10/18/2016 Type of Consultation: NEPHROLOGY Referring Provider: OZZIE HERRERA MD 24 HR Interval Summary Free Text/Dictation no acute events, s/p HD yesterday 500ml removed Exam/Review of Systems Vital Signs Vitals Vital Signs Date Time Temp Pulse Resp B/P Pulse Ox O2 Delivery O2 Flow Rate FiO2 10/27/16 07:52 98.9 74 18 118/56 94 Intake and Output 10/26/16 10/26/16 10/27/16 15:00 23:00 07:00 Intake Total 500 ml 1050 ml 69.1 ml Output Total 2500 ml 0 ml Balance -2000 ml 1050 ml 69.1 ml Exam GENERAL: NAD HEENT: Unremarkable NECK: Supple, trachea midline. CHEST: Rise symmetrical, without dyspnea on observation HEART: Pulse RRR ABDOMEN: soft EXTREMITIES: Warm -> DSG intact Results Result Diagram: 10/27/16 0531 10/27/16 0531 Results 24 hrs Laboratory Tests Test 10/26/16 12:01 10/26/16 20:26 10/27/16 01:48 10/27/16 05:31 Bedside Glucose 143 198 96 White Blood Count 17.8 H Red Blood Count 3.00 L Hemoglobin 9.4 L Hematocrit 29.8 L Mean Corpuscular Volume 99.3 Mean Corpuscular Hemoglobin 31.3 Mean Corpuscular Hemoglobin Concent 31.5 L Red Cell Distribution Width 16.5 H Platelet Count 355 Mean Platelet Volume 12.0 H Neutrophils % 73.2 Lymphocytes % 14.1 L Monocytes % 10.7 Eosinophils % 1.0 Basophils % 0.4 Nucleated Red Blood Cells % 0.0 Neutrophils # 13.0 H Lymphocytes # 2.5 Monocytes # 1.9 H Eosinophils # 0.2 Basophils # 0.1 Nucleated Red Blood Cells # 0.0 Sodium Level 138 Potassium Level 4.4 Chloride Level 95 L Carbon Dioxide Level 26 Anion Gap 21 H Blood Urea Nitrogen 49 #H Creatinine 7.51 #H Glucose Level 83 Calcium Level 7.7 L Test 10/27/16 08:02 10/27/16 09:18 Bedside Glucose 72 76 Medications Medications Current Medications Metoprolol Tartrate (Lopressor) 25 mg BID PO Last administered on 10/26/16 21: 26; Admin Dose 25 MG; Start 10/18/16 at 19:21 Amlodipine Besylate (Norvasc) 10 mg DAILY PO Last administered on 10/24/16 08: 56; Admin Dose 10 MG; Start 10/19/16 at 09:00 Hydralazine HCl (Apresoline) 10 mg Q4H PRN IV SBP>150 mm Hg Last administered on 10/18/16 20:35; Admin Dose 10 MG; Start 10/18/16 at 20:00 Albuterol (Ventolin Hfa) 2 puff Q8 INH Last administered on 10/27/16 05:38; Admin Dose 2 PUFF; Start 10/18/16 at 22:30 Famotidine (Pepcid) 20 mg DAILY PO Last administered on 10/26/16 08:45; Admin Dose 20 MG; Start 10/19/16 at 09:00 Ondansetron HCl (Zofran Inj) 4 mg Q6H PRN IV NAUSEA AND/OR VOMITING; Start at 22:30 Acetaminophen (Tylenol Tab) 650 mg Q6H PRN PO PAIN LEVEL 1-3 OR FEVER; Start at 22:30 Morphine Sulfate (morphine) 2 mg Q4H PRN IV SEVERE PAIN LEVEL 7-10 Last administered on 10/27/16 05:41; Admin Dose 2 MG; Start 10/18/16 at 22:30 Docusate Sodium (Colace) 100 mg Q12H PRN PO CONSTIPATION Last administered on 13:32; Admin Dose 100 MG; Start 10/18/16 at 22:30 Bisacodyl (Dulcolax Supp) 10 mg DAILY PRN [place] CONSTIPATION Last administered on 10/26/16 07:04; Admin Dose 10 MG; Start 10/18/16 at 22:30 Diagnostic Test (Pha) (Accucheck) 1 ea 02 XX Last administered on 10/27/16 02: 31; Admin Dose 1 EA; Start 10/19/16 at 02:00 Acetaminophen/ Hydrocodone Bitart ([place] (10/325)) 1 tab Q4H PRN PO PAIN LEVEL 6-10 Last administered on 10/21/16 11:52; Admin Dose 1 TAB; Start 10/18/16 at 22:30 Miscellaneous Information 1 ea NOTE XX ; Start 10/18/16 at 22:30 Glucose (Glutose) 15 gm Q15M PRN PO DECREASED GLUCOSE; Start 10/18/16 at 22:30 Glucose (Glutose) 22.5 gm Q15M PRN PO DECREASED GLUCOSE; Start 10/18/16 at 22: 30 Dextrose (D50w Syringe) 25 ml Q15M PRN IV DECREASED GLUCOSE; Start 10/18/16 at 22:30 Dextrose (D50w Syringe) 50 ml Q15M PRN IV DECREASED GLUCOSE Last administered on 10/27/16 09:35; Admin Dose 50 ML; Start 10/18/16 at 22:30 Glucagon (Glucagen) 1 mg Q15M PRN IM DECREASED GLUCOSE; Start 10/18/16 at 22:30 Glucose (Glutose) 15 gm Q15M PRN BUCCAL DECREASED GLUCOSE; Start 10/18/16 at 22 :30 Morphine Sulfate (morphine) 2 mg Q3H PRN IV PAIN Last administered on 11:36; Admin Dose 2 MG; Start 10/19/16 at 19:30 Acetaminophen/ Hydrocodone Bitart ([place] (5/325)) 1 tab Q4H PRN PO PAIN LEVEL 1 -5 Last administered on 10/25/16 17:00; Admin Dose 1 TAB; Start 10/19/16 at 19: 30 Acetaminophen/ Hydrocodone Bitart ([place] (5/325)) 2 tab Q6H PRN PO PAIN LEVEL 6 -10 Last administered on 10/26/16 17:32; Admin Dose 2 TAB; Start 10/19/16 at 19 :30 Linezolid (Zyvox) 600 mg BID PO Last administered on 10/26/16 20:35; Admin Dose 600 MG; Start 10/20/16 at 12:15 Aspirin 81 mg 81 mg DAILY PO Last administered on 10/26/16 08:45; Admin Dose 81 MG; Start 10/22/16 at 09:00 Heparin Sodium (Porcine) (Heparin 97471 Units/250 ml) 250 ml @ 5 mls/hr Q24H IV Last administered on 10/26/16 23:35; Admin Dose 5 MLS/HR; Start 10/21/16 at 20:00; Status Future Hold Lactobacillus Acidoph/Bulgaricus (Floranex) 1 tab BID PO Last administered on 20:34; Admin Dose 1 TAB; Start 10/22/16 at 21:00 Senna/Docusate Sodium (Senokot-S) 2 tab HS PO Last administered on 10/26/16 20 :35; Admin Dose 2 TAB; Start 10/22/16 at 21:00 Lactulose (Enulose) 20 gm TID PRN PO CONSTIPATION Last administered on 13:32; Admin Dose 20 GM; Start 10/23/16 at 17:30 Clonidine HCl (Catapres-Tts 1 Patch) 1 patch Q7D TRANSDERM Last administered on 10/24/16 09:04; Admin Dose 1 PATCH; Start 10/24/16 at 09:00 Insulin Glargine 5 unit 5 unit DAILY@20 SC Last administered on 10/26/16 20:34 ; Admin Dose 5 UNIT; Start 10/24/16 at 20:00 Meropenem (Merrem 500 Mg/ 100 ml (Pmx)) 100 ml @ 200 mls/hr Q24H IVPB Last administered on 10/26/16 20:34; Admin Dose 200 MLS/HR; Start 10/26/16 at 21:00 Sodium Biphosphate/ Sodium Phosphate (Fleet Enema) 133 ml DAILY PRN [place] CONSTIPATION Last administered on 10/26/16 18:33; Admin Dose 133 ML; Start at 18:00 LISA MERRITT MD Oct 27, 2016 10:41
[2016-10-27] MEDS ORDERED: BACITRACIN 50000 UNITS INJ IRR ONE (10:50)
[2016-10-27] MEDS: HYDROmorphONE 0.2 MG/ML PCA IV SCH ×2 (12:42→19:07)
[2016-10-27] MEDS ORDERED: NALOXONE (0.4 MG/ML) INJ IV PRN (13:00)
--- NOTE | 2016-10-27 13:02 | CONS ---
Date/Time of Note Date/Time of Note DATE: 10/27/16 TIME: 13:01 Assessment/Plan Assessment/Plan Chief Complaint/Hosp Course SUBJECTIVE: No events overnight. INDWELLINGS: Right IJ Perm-A-Cath. ANTIMICROBIALS: Zyvox Merrem ALLERGIES: VANCOMYCIN. ASSESSMENT: 1. Severe peripheral vascular disease with bilateral lower extremity gangrene, status post-surgical intervention with thrombectomy, exploration of the above knee popliteal graft and debridement of left lower extremity wound with wound VAC application on 10/19/2016. 2. End-stage renal disease, hemodialysis dependent. 3. Anemia of chronic disease. 4. DM 5. HTN 6. SIRS with low grade temps and leukocytosis===> ?line sepsis 7. HCAP Plan: Clinically unchanged, pending bld cx from [facility], pending L BKA [facility] staff Problems: Consultation Date/Type/Reason Admit Date/Time Oct 18, 2016 at 16:52 Type of Consultation: id Referring Provider: OZZIE HERRERA MD Exam/Review of Systems Vital Signs Vitals Vital Signs Date Time Temp Pulse Resp B/P Pulse Ox O2 Delivery O2 Flow Rate FiO2 10/27/16 12:17 98.7 10/27/16 12:09 83 18 148/66 99 Nasal Cannula 2.0 Intake and Output 10/26/16 10/26/16 10/27/16 15:00 23:00 07:00 Intake Total 500 ml 1050 ml 69.1 ml Output Total 2500 ml 0 ml Balance -2000 ml 1050 ml 69.1 ml Results Result Diagram: 10/27/16 0531 10/27/16 0531 Results 24 hrs Laboratory Tests Test 10/26/16 20:26 10/27/16 01:48 10/27/16 05:31 10/27/16 08:02 Bedside Glucose 198 96 72 White Blood Count 17.8 H Red Blood Count 3.00 L Hemoglobin 9.4 L Hematocrit 29.8 L Mean Corpuscular Volume 99.3 Mean Corpuscular Hemoglobin 31.3 Mean Corpuscular Hemoglobin Concent 31.5 L Red Cell Distribution Width 16.5 H Platelet Count 355 Mean Platelet Volume 12.0 H Neutrophils % 73.2 Lymphocytes % 14.1 L Monocytes % 10.7 Eosinophils % 1.0 Basophils % 0.4 Nucleated Red Blood Cells % 0.0 Neutrophils # 13.0 H Lymphocytes # 2.5 Monocytes # 1.9 H Eosinophils # 0.2 Basophils # 0.1 Nucleated Red Blood Cells # 0.0 Sodium Level 138 Potassium Level 4.4 Chloride Level 95 L Carbon Dioxide Level 26 Anion Gap 21 H Blood Urea Nitrogen 49 #H Creatinine 7.51 #H Glucose Level 83 Calcium Level 7.7 L Test 10/27/16 09:18 10/27/16 12:17 Bedside Glucose 76 129 Medications Medications Current Medications Metoprolol Tartrate (Lopressor) 25 mg BID PO Last administered on 10/26/16 21: 26; Admin Dose 25 MG; Start 10/18/16 at 19:21 Amlodipine Besylate (Norvasc) 10 mg DAILY PO Last administered on 10/24/16 08: 56; Admin Dose 10 MG; Start 10/19/16 at 09:00 Hydralazine HCl (Apresoline) 10 mg Q4H PRN IV SBP>150 mm Hg Last administered on 10/18/16 20:35; Admin Dose 10 MG; Start 10/18/16 at 20:00 Albuterol (Ventolin Hfa) 2 puff Q8 INH Last administered on 10/27/16 05:38; Admin Dose 2 PUFF; Start 10/18/16 at 22:30 Famotidine (Pepcid) 20 mg DAILY PO Last administered on 10/26/16 08:45; Admin Dose 20 MG; Start 10/19/16 at 09:00 Ondansetron HCl (Zofran Inj) 4 mg Q6H PRN IV NAUSEA AND/OR VOMITING; Start at 22:30 Acetaminophen (Tylenol Tab) 650 mg Q6H PRN PO PAIN LEVEL 1-3 OR FEVER; Start at 22:30 Docusate Sodium (Colace) 100 mg Q12H PRN PO CONSTIPATION Last administered on 13:32; Admin Dose 100 MG; Start 10/18/16 at 22:30 Bisacodyl (Dulcolax Supp) 10 mg DAILY PRN [place] CONSTIPATION Last administered on 10/26/16 07:04; Admin Dose 10 MG; Start 10/18/16 at 22:30 Diagnostic Test (Pha) (Accucheck) 1 ea 02 XX Last administered on 10/27/16 02: 31; Admin Dose 1 EA; Start 10/19/16 at 02:00 Miscellaneous Information 1 ea NOTE XX ; Start 10/18/16 at 22:30 Glucose (Glutose) 15 gm Q15M PRN PO DECREASED GLUCOSE; Start 10/18/16 at 22:30 Glucose (Glutose) 22.5 gm Q15M PRN PO DECREASED GLUCOSE; Start 10/18/16 at 22: 30 Dextrose (D50w Syringe) 25 ml Q15M PRN IV DECREASED GLUCOSE; Start 10/18/16 at 22:30 Dextrose (D50w Syringe) 50 ml Q15M PRN IV DECREASED GLUCOSE Last administered on 10/27/16 09:35; Admin Dose 50 ML; Start 10/18/16 at 22:30 Glucagon (Glucagen) 1 mg Q15M PRN IM DECREASED GLUCOSE; Start 10/18/16 at 22:30 Glucose (Glutose) 15 gm Q15M PRN BUCCAL DECREASED GLUCOSE; Start 10/18/16 at 22 :30 Acetaminophen/ Hydrocodone Bitart ([place] (5/325)) 1 tab Q4H PRN PO PAIN LEVEL 1 -5 Last administered on 10/25/16 17:00; Admin Dose 1 TAB; Start 10/19/16 at 19: 30 Linezolid (Zyvox) 600 mg BID PO Last administered on 10/26/16 20:35; Admin Dose 600 MG; Start 10/20/16 at 12:15 Aspirin (Halfprin) 81 mg DAILY PO Last administered on 10/26/16 08:45; Admin Dose 81 MG; Start 10/22/16 at 09:00 Lactobacillus Acidoph/Bulgaricus (Floranex) 1 tab BID PO Last administered on 20:34; Admin Dose 1 TAB; Start 10/22/16 at 21:00 Senna/Docusate Sodium (Senokot-S) 2 tab HS PO Last administered on 10/26/16 20 :35; Admin Dose 2 TAB; Start 10/22/16 at 21:00 Lactulose (Enulose) 20 gm TID PRN PO CONSTIPATION Last administered on 13:32; Admin Dose 20 GM; Start 10/23/16 at 17:30 Clonidine HCl (Catapres-Tts 1 Patch) 1 patch Q7D TRANSDERM Last administered on 10/24/16 09:04; Admin Dose 1 PATCH; Start 10/24/16 at 09:00 Insulin Glargine 5 unit 5 unit DAILY@20 SC Last administered on 10/26/16 20:34 ; Admin Dose 5 UNIT; Start 10/24/16 at 20:00 Meropenem (Merrem 500 Mg/ 100 ml (Pmx)) 100 ml @ 200 mls/hr Q24H IVPB Last administered on 10/26/16 20:34; Admin Dose 200 MLS/HR; Start 10/26/16 at 21:00 Sodium Biphosphate/ Sodium Phosphate (Fleet Enema) 133 ml DAILY PRN [place] CONSTIPATION Last administered on 10/26/16 18:33; Admin Dose 133 ML; Start at 18:00 Hydromorphone HCl (Dilaudid LOCATION AND MEASUREMENT TECHNICIAN) 0 MG/HR CONTINUOUS RATE ... LOCATION AND MEASUREMENT TECHNICIAN IV Last administered on 10/27/16 12:42; Admin Dose 6 MG; Start 10/27/16 at 12:30 Heparin Sodium (Porcine) (Heparin (5000 Units/0.5 ml)) 5,000 unit BID SC ; Start 10/27/16 at 12:30 Naloxone HCl (Narcan) 0.2 mg Q2M PRN IV RR 8 BREATHS/MIN OR LESS; Start at 13:00 DARLENE MCKEE NP Oct 27, 2016 13:02
--- NOTE | 2016-10-27 13:22 | CONS ---
Date/Time of Note Date/Time of Note DATE: 10/27/16 TIME: 13:19 Assessment/Plan Assessment/Plan Chief Complaint/Hosp Course IMPRESSION: 1. Preoperative evaluation prior to lower extremity vascular surgery, possible amputation.-Now s/p LLE vascular surgery with failed graft and is to be taken for LE amputation 2. Hypertension, uncontrolled. 3. Abnormal electrocardiogram, assess for acute coronary syndrome. 4. Dyslipidemia. 5. Peripheral arterial disease, status post prior revascularization. 6. Lower extremity nonhealing ulceration of the toe. 7. Possible pneumonia by chest x-ray. 8. End-stage renal disease on hemodialysis. 9. Anemia. 10. Leukocytosis. 11/ Cardiomyopathy-LVEF 40-45%-negative trop x 3 since admit Recc: -Tele -Continue norvasc/BB -Local wound care/abx's and f/u cx data -Pain control -Continue ASA-Check post-op ECG post procedure/amputation today Problems: Consultation Date/Type/Reason Admit Date/Time Oct 18, 2016 at 16:52 Initial Consult Date Pre-op/HTN/cardiomyopathy Type of Consultation: Cardiology Reason for Consultation Pre-op/cardiomyopathy Referring Provider: OZZIE HERRERA MD Exam/Review of Systems Vital Signs Vitals Vital Signs Date Time Temp Pulse Resp B/P Pulse Ox O2 Delivery O2 Flow Rate FiO2 10/27/16 12:17 98.7 10/27/16 12:09 83 18 148/66 99 Nasal Cannula 2.0 Intake and Output 10/26/16 10/26/16 10/27/16 15:00 23:00 07:00 Intake Total 500 ml 1050 ml 69.1 ml Output Total 2500 ml 0 ml Balance -2000 ml 1050 ml 69.1 ml Exam Review of Systems: CONSTITUTIONAL: No fevers, chills. PULMONARY: No sob CARDIOVASCULAR: No chest pain/palpitations GASTROINTESTINAL: No nausea/vomiting. GENITOURINARY: No hematuria/dysuria. MUSCULOSKELETAL: pain in leg PSYCHIATRIC: The patient denies depression. NEUROLOGIC: No weakness Constitutional: alert, oriented Psych: no complaints Head: normocephalic ENMT: mucosa pink and moist Neck: jvd (8 cm water), supple Respiratory: clear to auscultation Cardiovascular: regular rate and rhythm Gastrointestinal: non-tender, soft Musculoskeletal: muscle tone (normal) Extremities: other (gangrene of foot) Neurological: other (No focal deficits) Results Result Diagram: 10/27/16 0531 10/27/16 0531 Results 24 hrs Laboratory Tests Test 10/26/16 20:26 10/27/16 01:48 10/27/16 05:31 10/27/16 08:02 Bedside Glucose 198 96 72 White Blood Count 17.8 H Red Blood Count 3.00 L Hemoglobin 9.4 L Hematocrit 29.8 L Mean Corpuscular Volume 99.3 Mean Corpuscular Hemoglobin 31.3 Mean Corpuscular Hemoglobin Concent 31.5 L Red Cell Distribution Width 16.5 H Platelet Count 355 Mean Platelet Volume 12.0 H Neutrophils % 73.2 Lymphocytes % 14.1 L Monocytes % 10.7 Eosinophils % 1.0 Basophils % 0.4 Nucleated Red Blood Cells % 0.0 Neutrophils # 13.0 H Lymphocytes # 2.5 Monocytes # 1.9 H Eosinophils # 0.2 Basophils # 0.1 Nucleated Red Blood Cells # 0.0 Sodium Level 138 Potassium Level 4.4 Chloride Level 95 L Carbon Dioxide Level 26 Anion Gap 21 H Blood Urea Nitrogen 49 #H Creatinine 7.51 #H Glucose Level 83 Calcium Level 7.7 L Test 10/27/16 09:18 10/27/16 12:17 Bedside Glucose 76 129 Medications Medications Current Medications Metoprolol Tartrate (Lopressor) 25 mg BID PO Last administered on 10/26/16 21: 26; Admin Dose 25 MG; Start 10/18/16 at 19:21 Amlodipine Besylate (Norvasc) 10 mg DAILY PO Last administered on 10/24/16 08: 56; Admin Dose 10 MG; Start 10/19/16 at 09:00 Hydralazine HCl (Apresoline) 10 mg Q4H PRN IV SBP>150 mm Hg Last administered on 10/18/16 20:35; Admin Dose 10 MG; Start 10/18/16 at 20:00 Albuterol (Ventolin Hfa) 2 puff Q8 INH Last administered on 10/27/16 05:38; Admin Dose 2 PUFF; Start 10/18/16 at 22:30 Famotidine (Pepcid) 20 mg DAILY PO Last administered on 10/26/16 08:45; Admin Dose 20 MG; Start 10/19/16 at 09:00 Ondansetron HCl (Zofran Inj) 4 mg Q6H PRN IV NAUSEA AND/OR VOMITING; Start at 22:30 Acetaminophen (Tylenol Tab) 650 mg Q6H PRN PO PAIN LEVEL 1-3 OR FEVER; Start at 22:30 Docusate Sodium (Colace) 100 mg Q12H PRN PO CONSTIPATION Last administered on 13:32; Admin Dose 100 MG; Start 10/18/16 at 22:30 Bisacodyl (Dulcolax Supp) 10 mg DAILY PRN [place] CONSTIPATION Last administered on 10/26/16 07:04; Admin Dose 10 MG; Start 10/18/16 at 22:30 Diagnostic Test (Pha) (Accucheck) 1 ea 02 XX Last administered on 10/27/16 02: 31; Admin Dose 1 EA; Start 10/19/16 at 02:00 Miscellaneous Information 1 ea NOTE XX ; Start 10/18/16 at 22:30 Glucose (Glutose) 15 gm Q15M PRN PO DECREASED GLUCOSE; Start 10/18/16 at 22:30 Glucose (Glutose) 22.5 gm Q15M PRN PO DECREASED GLUCOSE; Start 10/18/16 at 22: 30 Dextrose (D50w Syringe) 25 ml Q15M PRN IV DECREASED GLUCOSE; Start 10/18/16 at 22:30 Dextrose (D50w Syringe) 50 ml Q15M PRN IV DECREASED GLUCOSE Last administered on 10/27/16 09:35; Admin Dose 50 ML; Start 10/18/16 at 22:30 Glucagon (Glucagen) 1 mg Q15M PRN IM DECREASED GLUCOSE; Start 10/18/16 at 22:30 Glucose (Glutose) 15 gm Q15M PRN BUCCAL DECREASED GLUCOSE; Start 10/18/16 at 22 :30 Acetaminophen/ Hydrocodone Bitart ([place] (5/325)) 1 tab Q4H PRN PO PAIN LEVEL 1 -5 Last administered on 10/25/16 17:00; Admin Dose 1 TAB; Start 10/19/16 at 19: 30 Linezolid (Zyvox) 600 mg BID PO Last administered on 10/26/16 20:35; Admin Dose 600 MG; Start 10/20/16 at 12:15 Aspirin (Halfprin) 81 mg DAILY PO Last administered on 10/26/16 08:45; Admin Dose 81 MG; Start 10/22/16 at 09:00 Lactobacillus Acidoph/Bulgaricus (Floranex) 1 tab BID PO Last administered on 20:34; Admin Dose 1 TAB; Start 10/22/16 at 21:00 Senna/Docusate Sodium (Senokot-S) 2 tab HS PO Last administered on 10/26/16 20 :35; Admin Dose 2 TAB; Start 10/22/16 at 21:00 Lactulose (Enulose) 20 gm TID PRN PO CONSTIPATION Last administered on 13:32; Admin Dose 20 GM; Start 10/23/16 at 17:30 Clonidine HCl (Catapres-Tts 1 Patch) 1 patch Q7D TRANSDERM Last administered on 10/24/16 09:04; Admin Dose 1 PATCH; Start 10/24/16 at 09:00 Insulin Glargine 5 unit 5 unit DAILY@20 SC Last administered on 10/26/16 20:34 ; Admin Dose 5 UNIT; Start 10/24/16 at 20:00 Meropenem (Merrem 500 Mg/ 100 ml (Pmx)) 100 ml @ 200 mls/hr Q24H IVPB Last administered on 10/26/16 20:34; Admin Dose 200 MLS/HR; Start 10/26/16 at 21:00 Sodium Biphosphate/ Sodium Phosphate (Fleet Enema) 133 ml DAILY PRN [place] CONSTIPATION Last administered on 10/26/16 18:33; Admin Dose 133 ML; Start at 18:00 Hydromorphone HCl (Dilaudid GUIDE DELEGATE) 0 MG/HR CONTINUOUS RATE ... GUIDE DELEGATE IV Last administered on 10/27/16 12:42; Admin Dose 6 MG; Start 10/27/16 at 12:30 Heparin Sodium (Porcine) (Heparin (5000 Units/0.5 ml)) 5,000 unit BID SC ; Start 10/27/16 at 12:30 Naloxone HCl (Narcan) 0.2 mg Q2M PRN IV RR 8 BREATHS/MIN OR LESS; Start at 13:00 KAYLEE WILSON Oct 27, 2016 13:22
--- NOTE | 2016-10-27 13:28 | OPR ---
DATE OF OPERATION: 10/27/2016 SURGEON: Cyndi Quintero MD PREOPERATIVE DIAGNOSIS: Left lower extremity gangrene. POSTOPERATIVE DIAGNOSIS: Left lower extremity gangrene and infected left lower extremity bypass gra ft. ANESTHESIA: General. ESTIMATED BLOOD LOSS: 100 mL. COMPLICATIONS: None. TRANSFUSION: 1 unit packed red blood cells. PROCEDURE: 1. Ligation, excision of left lower extremity infected graft. 2. Irrigation and debridement of skin, subcutaneous tissue and muscle. Wound measuring 20 cm x 2 c m x 2 cm. 3. Left below-knee amputation. 4. Rotational flap creation of the left lower extremity at the amputation site. 5. Wound VAC placement on the medial aspect of the left lower extremity thigh. 6. Exposure of the upper thigh greater saphenous vein. INDICATIONS: This is a 65-year-old gentleman who presented with left lower extremity gangrene in ich he had underwent a lower extremity limb salvage procedure with an iliofemoral endarterectomy and common femoral artery distal to posterior tibial artery in situ bypass. It seems that the patient had thrombosed his left lower extremity bypass and underwent reexploration and left lower extremity revascularization. Unfortunately, the patient despite being on a heparin drip, thrombosed his graft and no further revascularization was an option. In light of these findings, the patient was notifi ed of undergoing a major amputation and it seems that his left lower extremity graft had become infe cted with increasing white blood cell count and leukocytosis. Subsequently, the patient was discuss ed with surgical intervention with the risks, alternatives and benefits of the procedure. Risks inc luding but not limited to bleeding, myocardial infarction, , stroke, infection, revision, nerve injury, limb loss, and the patient has agreed to proceed. DESCRIPTION OF PROCEDURE: The patient was brought into the operating room table and placed in supin e position. His left lower extremity was prepped and draped in the usual standard sterile fashion. This was performed from the left lower quadrant of the abdomen all the way down to the ankle. Luz operative antibiotics were already on board. General anesthesia was induced and the patient tolerat ed that well. An occlusive dressing was applied to the foot up to the level of the ankle. Anterior and posterior skin incisions were outlined with a marking pen. The anterior skin incision had alre isabell been created from a previous left lower extremity revascularization. Therefore, that was adequa tely outlined. At this point, we went ahead and explored the greater saphenous vein in the mid thigh of the left lo wer extremity. This was performed by reexposing the previous incision by removing the ricarda. The vein was identified and did not seem to be infected. However, at the site of our anastomosis where the vein was in interposition fashion, there was an exuberant amount of purulence and pus in that s egment. At this point, it was identified that the graft seems to be infected. Culture swabs were s ent for microbiology and the graft was excised and ligated. Part of the graft was sent for patholog y and for microbiology evaluation. At this point, the remainder of the anterior incision line which is on the medial aspect from a prev ious revascularization was reopened and ricarda were removed. There was purulence that essentially followed the tract of the graft and this was irrigated with Pulsavac water system adequately. We we re able to identify adequate rebleeding. The infected graft was excised in the area of its distal a nastomosis near the distal posterior tibial artery. Attempts were made to debride enough tissue in order to be able to perform an adequate below-knee amputation. Skin, muscle and subcutaneous tissue were sharply excised. Adequate viable tissue was identified and rebleeding was identified. Subsequently, our anterior skin incision on the lateral aspect of the leg was performed towards the edges of the gastrocnemius muscle. The skin incision was then extended distally towards the ankle p arallel to the tibia and fibula. This was extended for about 12 to 15 cm creating an adequate poste rior flap. The skin and subcutaneous tissues were then incised down to the fascia. The greater and shorter saphenous veins on the medial and posterior aspects of the leg were identified, respectivel y and were fibrosed. The fascia and the muscle were then divided with electrocautery at the level o f the anterior skin incision. The muscles in the anterior and lateral compartments were divided exp osing the anterior tibial vessels, which were ligated and divided. The interosseous membrane was th en incised. The tibial periosteum was incised circumferentially with electrocautery at the same lev el of the skin and muscle division. Using a periosteal elevator, the tibial periosteum was then str ipped proximally for about 2 cm. The tibia was then transected with an electric saw 2 cm proximal t o the skin incision with an anterior bevel. At this point, using an electric drill, medial and late ral drills were made on the tibia for eventual anchoring suture placement. The fibula was then expo sed, dissecting circumferentially, and transected with a bone cutter 2 cm proximal to the tibial div ision. The amputation was then completed with an amputation knife, transecting the soleus muscle ob liquely and the gastrocnemius muscle at the same level as the posterior flap. The bleeding soleal v eins, the posterior tibial and peroneal vessels were clamped and oversewn with a 3-0 Vicryl suture. Sharp bony edges were then filed eliminating any bony prominences over the anterior aspect of the t ibia. The fascia of the anterior and posterior muscle flaps were attempted to be approximated with placement of a 1-0 Vicryl suture for an anchoring suture through the tibial drill holes that were ma de. At this point, there was still a defect on the medial aspect of the amputation stump; therefor e, a rotational flap was performed with anterior compartment muscles in order to cover that segment. At this point, the fascia was again reapproximated on the anterior and posterior aspect of the muscl e flaps with interrupted 2-0 Vicryl sutures. The dermal layers were approximated with interrupted 3 -0 Vicryl suture from the lateral to the medial aspect of the stump. Skin ricarda were then applied from the lateral to the medial aspect. The stump had adequate healthy muscle tissue. At this poin t, the medial incision from our revascularization that was irrigated, further debridement was perfor med making sure that we had adequate healthy skin borders. At this point, a black foam KCI sponge w as placed and the wound VAC was connected with negative pressure. Settings were placed at 150 mmHg, high intensity, continuous. All instrument, sponge, and needle counts and catheters were correct x 2. The patient tolerated the procedure well and was taken to the postanesthesia care unit in stable condition. Dictated By: CYNDI GARCIA/SIN Conf#: [id number] DID#: [id number]
[2016-10-27] MEDS: HYDROCODONE/APAP (5/325) TAB PO PRN ×2 (13:56→17:55)
[2016-10-27] MEDS: HEPARIN 5,000 UNIT/0.5 ML VIAL SC SCH ×2 (14:10→20:53)
--- NOTE | 2016-10-27 15:07 | RADRPT ---
Vent Rate: 84 bpm RR Interval: 0 msec FL Interval: 162 msec QRS Duration: 110 msec QT Interval: 420 msec QTC Interval: 496 msec P-R-T [place]: 60 - -69 - 76 degrees Normal sinus rhythm Possible Left atrial enlargement Left anterior fascicular block Septal infarct , age undetermined Abnormal ECG Electronically Signed By: Rafa Meeks [id number]
[2016-10-27] MEDS: SENNA/DOCUSATE NA (8.6MG/50MG) TAB PO SCH (20:37)
[2016-10-27] MEDS: hydrALAzine 20 MG INJ IV PRN (20:38)
[2016-10-27] MEDS: MEROPENEM 500 MG/100 ML (PMX) 100 ML IVPB SCH (20:48)
[2016-10-27] MEDS: INSULIN GLARGINE [LANtus] 3 ML PEN SC SCH (20:49)
[2016-10-28] VITALS (16 sets, daily range): BP systolic 140–186; BP diastolic 66–87; PULSE 74–95; RESP 18–20
[2016-10-28] MEDS: HYDROmorphONE 0.2 MG/ML PCA IV SCH ×5 (00:24→19:52)
[2016-10-28] MEDS: ACCU-CHEK XX SCH (02:00)
[2016-10-28] MEDS: ALBUTEROL HFA 8 GM INHALER INH SCH ×3 (05:40→22:35)
[2016-10-28 05:45] LABS: ADD SCAN DIFF NO
[2016-10-28 05:56] LABS: ABNORMAL IP MESSAGE 1; BASOPHIL # 0.1 10^3/ul (0.0-0.1); BASOPHILS % 0.4 % (0.0-2.0); EOSINOPHILS # 0.1 10^3/ul (0.0-0.5); EOSINOPHILS % 0.5 % (0.0-7.0); HEMATOCRIT 32.8 % (42.0-52.0); HEMOGLOBIN 10.7 g/dl (14.0-18.0); LYMPHOCYTES % 10.8 % (15.0-51.0); MEAN CORPUSCULAR HEMOGLOBIN 31.4 pg (29.0-33.0); MEAN CORPUSCULAR HGB CONC 32.6 g/dl (32.0-37.0); MEAN CORPUSCULAR VOLUME 96.2 fl (82.0-101.0); MEAN PLATELET VOLUME 11.5 fl (7.4-10.4); MONOCYTE # 1.9 10^3/ul (0.3-0.9); MONOCYTES % 9.9 % (0.0-11.0); NEUTROPHIL # 14.7 10^3/ul (1.6-7.5); NEUTROPHILS % 77.6 % (39.0-77.0); PLATELET COUNT 380 10^3/UL (140-415); RED BLOOD COUNT 3.41 10^6/ul (4.70-6.10); RED CELL DISTRIBUTION WIDTH 17.5 % (11.5-14.5)
[2016-10-28 06:06] LABS: POTASSIUM 4.6 mmol/L (3.5-5.1)
[2016-10-28 06:09] LABS: CREATININE 9.25 mg/dl (0.61-1.24)
[2016-10-28 06:10] LABS: CALCIUM 7.7 mg/dl (8.4-10.2)
[2016-10-28] MEDS: INSULIN ASPART [NOVOLOG] 3 ML PEN SC SCH ×4 (08:15→20:50)
[2016-10-28] MEDS: FAMOTIDINE 20 MG TAB PO SCH (09:13)
[2016-10-28] MEDS: ASPIRIN (EC) 81 MG TAB PO SCH (09:13)
[2016-10-28] MEDS: LACTOBACILLUS CHEW TAB PO SCH ×2 (09:13→20:47)
[2016-10-28] MEDS: ZYVOX 600 MG TAB PO SCH ×2 (09:13→20:47)
[2016-10-28] MEDS: HEPARIN 5,000 UNIT/0.5 ML VIAL SC SCH ×2 (09:23→20:57)
--- NOTE | 2016-10-28 10:57 | CONS ---
Date/Time of Note Date/Time of Note DATE: 10/28/16 TIME: 10:56 Assessment/Plan Assessment/Plan Additional Assessment/Plan 1. 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 Failed redo bypass. 2. Severe stenosis of the right distal superficial femoral artery and occluded right posterior tibial artery. 3. End-stage renal disease on hemodialysis Tuesday, , Tuesday. 4. Accelerated hypertension. 5. Hyperlipidemia. 6. History of hypertension with peripheral arterial disease. 7. History of peripheral arterial disease status post left lower extremity bypass in September 2016. PLAN: Plan for HD today , will keep him on Tuesday, and Tuesday schedule Status post-surgical intervention with thrombectomy, exploration of the above knee popliteal graft and debridement of left lower extremity wound with wound VAC application on 10/19/2016. will follow up Consultation Date/Type/Reason Admit Date/Time Oct 18, 2016 at 16:52 Initial Consult Date 10/18/2016 Type of Consultation: NEPHROLOGY Referring Provider: OZZIE HERRERA MD 24 HR Interval Summary Free Text/Dictation plan for HD today Exam/Review of Systems Vital Signs Vitals Vital Signs Date Time Temp Pulse Resp B/P Pulse Ox O2 Delivery O2 Flow Rate FiO2 10/28/16 07:43 98.8 82 20 147/66 98 10/28/16 04:00 Nasal Cannula 2.0 Intake and Output 10/27/16 10/27/16 10/28/16 15:00 23:00 07:00 Intake Total 350 ml 520 ml 200 ml Output Total 100 ml Balance 250 ml 520 ml 200 ml Exam GENERAL: NAD HEENT: Unremarkable NECK: Supple, trachea midline. CHEST: Rise symmetrical, without dyspnea on observation HEART: Pulse RRR ABDOMEN: soft EXTREMITIES: Warm -> DSG intact Results Result Diagram: 10/28/16 0523 10/28/16 0523 Results 24 hrs Laboratory Tests Test 10/27/16 12:17 10/27/16 16:49 10/27/16 20:47 10/28/16 05:23 Bedside Glucose 129 120 180 White Blood Count 19.0 H Red Blood Count 3.41 L Hemoglobin 10.7 L Hematocrit 32.8 L Mean Corpuscular Volume 96.2 Mean Corpuscular Hemoglobin 31.4 Mean Corpuscular Hemoglobin Concent 32.6 Red Cell Distribution Width 17.5 H Platelet Count 380 Mean Platelet Volume 11.5 H Neutrophils % 77.6 H Lymphocytes % 10.8 L Monocytes % 9.9 Eosinophils % 0.5 Basophils % 0.4 Nucleated Red Blood Cells % 0.0 Neutrophils # 14.7 H Lymphocytes # 2.0 Monocytes # 1.9 H Eosinophils # 0.1 Basophils # 0.1 Nucleated Red Blood Cells # 0.0 Sodium Level 138 Potassium Level 4.6 Chloride Level 95 L Carbon Dioxide Level 23 Anion Gap 25 H Blood Urea Nitrogen 63 H Creatinine 9.25 H Glucose Level 105 Calcium Level 7.7 L Test 10/28/16 07:43 Bedside Glucose 78 Medications Medications Current Medications Metoprolol Tartrate (Lopressor) 25 mg BID PO Last administered on 10/27/16 20: 37; Admin Dose 25 MG; Start 10/18/16 at 19:21 Amlodipine Besylate (Norvasc) 10 mg DAILY PO Last administered on 10/24/16 08: 56; Admin Dose 10 MG; Start 10/19/16 at 09:00 Hydralazine HCl (Apresoline) 10 mg Q4H PRN IV SBP>150 mm Hg Last administered on 10/27/16 20:38; Admin Dose 10 MG; Start 10/18/16 at 20:00 Albuterol (Ventolin Hfa) 2 puff Q8 INH Last administered on 10/28/16 05:40; Admin Dose 2 PUFF; Start 10/18/16 at 22:30 Famotidine (Pepcid) 20 mg DAILY PO Last administered on 10/28/16 09:13; Admin Dose 20 MG; Start 10/19/16 at 09:00 Ondansetron HCl (Zofran Inj) 4 mg Q6H PRN IV NAUSEA AND/OR VOMITING; Start at 22:30 Acetaminophen (Tylenol Tab) 650 mg Q6H PRN PO PAIN LEVEL 1-3 OR FEVER; Start at 22:30 Docusate Sodium (Colace) 100 mg Q12H PRN PO CONSTIPATION Last administered on 13:32; Admin Dose 100 MG; Start 10/18/16 at 22:30 Bisacodyl (Dulcolax Supp) 10 mg DAILY PRN [place] CONSTIPATION Last administered on 10/26/16 07:04; Admin Dose 10 MG; Start 10/18/16 at 22:30 Diagnostic Test (Pha) (Accucheck) 1 ea 02 XX Last administered on 10/27/16 02: 31; Admin Dose 1 EA; Start 10/19/16 at 02:00 Miscellaneous Information 1 ea NOTE XX ; Start 10/18/16 at 22:30 Glucose (Glutose) 15 gm Q15M PRN PO DECREASED GLUCOSE; Start 10/18/16 at 22:30 Glucose (Glutose) 22.5 gm Q15M PRN PO DECREASED GLUCOSE; Start 10/18/16 at 22: 30 Dextrose (D50w Syringe) 25 ml Q15M PRN IV DECREASED GLUCOSE; Start 10/18/16 at 22:30 Dextrose (D50w Syringe) 50 ml Q15M PRN IV DECREASED GLUCOSE Last administered on 10/27/16 09:35; Admin Dose 50 ML; Start 10/18/16 at 22:30 Glucagon (Glucagen) 1 mg Q15M PRN IM DECREASED GLUCOSE; Start 10/18/16 at 22:30 Glucose (Glutose) 15 gm Q15M PRN BUCCAL DECREASED GLUCOSE; Start 10/18/16 at 22 :30 Acetaminophen/ Hydrocodone Bitart ([place] (5/325)) 1 tab Q4H PRN PO PAIN LEVEL 1 -5 Last administered on 10/27/16 17:55; Admin Dose 1 TAB; Start 10/19/16 at 19: 30 Linezolid (Zyvox) 600 mg BID PO Last administered on 10/28/16 09:13; Admin Dose 600 MG; Start 10/20/16 at 12:15 Aspirin (Halfprin) 81 mg DAILY PO Last administered on 10/28/16 09:13; Admin Dose 81 MG; Start 10/22/16 at 09:00 Lactobacillus Acidoph/Bulgaricus (Floranex) 1 tab BID PO Last administered on 09:13; Admin Dose 1 TAB; Start 10/22/16 at 21:00 Senna/Docusate Sodium (Senokot-S) 2 tab HS PO Last administered on 10/27/16 20 :37; Admin Dose 2 TAB; Start 10/22/16 at 21:00 Lactulose (Enulose) 20 gm TID PRN PO CONSTIPATION Last administered on 13:32; Admin Dose 20 GM; Start 10/23/16 at 17:30 Clonidine HCl (Catapres-Tts 1 Patch) 1 patch Q7D TRANSDERM Last administered on 10/24/16 09:04; Admin Dose 1 PATCH; Start 10/24/16 at 09:00 Insulin Glargine 5 unit 5 unit DAILY@20 SC Last administered on 10/27/16 20:49 ; Admin Dose 5 UNIT; Start 10/24/16 at 20:00 Meropenem (Merrem 500 Mg/ 100 ml (Pmx)) 100 ml @ 200 mls/hr Q24H IVPB Last administered on 10/27/16 20:48; Admin Dose 200 MLS/HR; Start 10/26/16 at 21:00 Sodium Biphosphate/ Sodium Phosphate (Fleet Enema) 133 ml DAILY PRN ID CONSTIPATION Last administered on 10/26/16 18:33; Admin Dose 133 ML; Start at 18:00 Hydromorphone HCl (Dilaudid MASSEUR/MASSEUSE) 0 MG/HR CONTINUOUS RATE ... MASSEUR/MASSEUSE IV Last administered on 10/28/16 10:33; Admin Dose 6 MG; Start 10/27/16 at 12:30 Heparin Sodium (Porcine) (Heparin (5000 Units/0.5 ml)) 5,000 unit BID SC Last administered on 10/28/16 09:23; Admin Dose 5,000 UNIT; Start 10/27/16 at 12:30 Naloxone HCl (Narcan) 0.2 mg Q2M PRN IV RR 8 BREATHS/MIN OR LESS; Start at 13:00 LISA MERRITT MD Oct 28, 2016 10:57
--- NOTE | 2016-10-28 13:53 | PN ---
Date/Time of Note Date/Time of Note DATE: 10/28/16 TIME: 13:50 Assessment/Plan VTE Prophylaxis VTE Prophylaxis Intervention: heparin Lines/Catheters IV Catheter Type (from Nrs): Peripheral IV Urinary Cath still in place: No Assessment/Plan Chief Complaint/Hosp Course Assessment and plan 1. 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 Patient does have history of bypass on area that had thrombosed. Continue on heparin drip. 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 Also noted with right lower extremity gangrene. Tentative plan for angiogram of right lower extremity. Follow-up with vascular surgeon recommendations. Continue with analgesics. wound care per vascular surgeon 2. ESRD on dialysis. Continue on HD. Follow-up with nephrology recommendations 3. Hypertension. Continue on antihypertensives and adjust needed. Stable 4. Anemia of chronic disease. H&H stable. Monitor for now. 5. History of diabetes. Continue on insulin regimen. Will adjust as needed 6. CAD. Continue on antiplatelet therapy Disposition and plan: Status post BKA of left lower extremity. cont with analgesics Discussed on of care with Dr. Cha Problems: Subjective 24 Hr Interval Summary Free Text/Dictation Resting at this time. On CREW ATTENDANT pump. Does report. Pain control at this time Exam/Review of Systems Vital Signs Vitals Vital Signs Date Time Temp Pulse Resp B/P Pulse Ox O2 Delivery O2 Flow Rate FiO2 10/28/16 12:20 20 10/28/16 12:17 99.1 78 186/77 100 Nasal Cannula 10/28/16 04:00 2.0 Intake and Output 10/27/16 10/27/16 10/28/16 15:00 23:00 07:00 Intake Total 350 ml 520 ml 200 ml Output Total 100 ml Balance 250 ml 520 ml 200 ml Exam General: Comfortable at this time. No. Stress Eyes: pupils equal round, Anicteric sclera today Neck: no jvd seen Cardiac: regular rate Pulmonary: No coarse rhonchi or breathing auscultated GI: Abdomen soft nontender nondistended, bowel sounds active Extremities: Status post BKA of left lower extremity. Dressing in place. Clean dry and intact. Noted with Mauricio wrap Skin: Scabs on necrotic appearance of right lower extremity Neurologic: Alert to person place and time and situation Results Result Diagram: 10/28/1652210/28/16 0523 Results 24 hrs Laboratory Tests Test 10/27/16 16:49 10/27/16 20:47 10/28/16 05:23 10/28/16 07:43 Bedside Glucose 120 180 78 White Blood Count 19.0 H Red Blood Count 3.41 L Hemoglobin 10.7 L Hematocrit 32.8 L Mean Corpuscular Volume 96.2 Mean Corpuscular Hemoglobin 31.4 Mean Corpuscular Hemoglobin Concent 32.6 Red Cell Distribution Width 17.5 H Platelet Count 380 Mean Platelet Volume 11.5 H Neutrophils % 77.6 H Lymphocytes % 10.8 L Monocytes % 9.9 Eosinophils % 0.5 Basophils % 0.4 Nucleated Red Blood Cells % 0.0 Neutrophils # 14.7 H Lymphocytes # 2.0 Monocytes # 1.9 H Eosinophils # 0.1 Basophils # 0.1 Nucleated Red Blood Cells # 0.0 Sodium Level 138 Potassium Level 4.6 Chloride Level 95 L Carbon Dioxide Level 23 Anion Gap 25 H Blood Urea Nitrogen 63 H Creatinine 9.25 H Glucose Level 105 Calcium Level 7.7 L Medications Medications Current Medications Metoprolol Tartrate (Lopressor) 25 mg BID PO Last administered on 10/27/16 20: 37; Admin Dose 25 MG; Start 10/18/16 at 19:21 Amlodipine Besylate (Norvasc) 10 mg DAILY PO Last administered on 10/24/16 08: 56; Admin Dose 10 MG; Start 10/19/16 at 09:00 Hydralazine HCl (Apresoline) 10 mg Q4H PRN IV SBP>150 mm Hg Last administered on 10/27/16 20:38; Admin Dose 10 MG; Start 10/18/16 at 20:00 Albuterol (Ventolin Hfa) 2 puff Q8 INH Last administered on 10/28/16 05:40; Admin Dose 2 PUFF; Start 10/18/16 at 22:30 Famotidine (Pepcid) 20 mg DAILY PO Last administered on 10/28/16 09:13; Admin Dose 20 MG; Start 10/19/16 at 09:00 Ondansetron HCl (Zofran Inj) 4 mg Q6H PRN IV NAUSEA AND/OR VOMITING; Start at 22:30 Acetaminophen (Tylenol Tab) 650 mg Q6H PRN PO PAIN LEVEL 1-3 OR FEVER; Start at 22:30 Docusate Sodium (Colace) 100 mg Q12H PRN PO CONSTIPATION Last administered on 13:32; Admin Dose 100 MG; Start 10/18/16 at 22:30 Bisacodyl (Dulcolax Supp) 10 mg DAILY PRN [place] CONSTIPATION Last administered on 10/26/16 07:04; Admin Dose 10 MG; Start 10/18/16 at 22:30 Diagnostic Test (Pha) (Accucheck) 1 ea 02 XX Last administered on 10/27/16 02: 31; Admin Dose 1 EA; Start 10/19/16 at 02:00 Miscellaneous Information 1 ea NOTE XX ; Start 10/18/16 at 22:30 Glucose (Glutose) 15 gm Q15M PRN PO DECREASED GLUCOSE; Start 10/18/16 at 22:30 Glucose (Glutose) 22.5 gm Q15M PRN PO DECREASED GLUCOSE; Start 10/18/16 at 22: 30 Dextrose (D50w Syringe) 25 ml Q15M PRN IV DECREASED GLUCOSE; Start 10/18/16 at 22:30 Dextrose (D50w Syringe) 50 ml Q15M PRN IV DECREASED GLUCOSE Last administered on 10/27/16 09:35; Admin Dose 50 ML; Start 10/18/16 at 22:30 Glucagon (Glucagen) 1 mg Q15M PRN IM DECREASED GLUCOSE; Start 10/18/16 at 22:30 Glucose (Glutose) 15 gm Q15M PRN BUCCAL DECREASED GLUCOSE; Start 10/18/16 at 22 :30 Acetaminophen/ Hydrocodone Bitart ([place] (5/325)) 1 tab Q4H PRN PO PAIN LEVEL 1 -5 Last administered on 10/27/16 17:55; Admin Dose 1 TAB; Start 10/19/16 at 19: 30 Linezolid (Zyvox) 600 mg BID PO Last administered on 10/28/16 09:13; Admin Dose 600 MG; Start 10/20/16 at 12:15 Aspirin (Halfprin) 81 mg DAILY PO Last administered on 10/28/16 09:13; Admin Dose 81 MG; Start 10/22/16 at 09:00 Lactobacillus Acidoph/Bulgaricus (Floranex) 1 tab BID PO Last administered on 09:13; Admin Dose 1 TAB; Start 10/22/16 at 21:00 Senna/Docusate Sodium (Senokot-S) 2 tab HS PO Last administered on 10/27/16 20 :37; Admin Dose 2 TAB; Start 10/22/16 at 21:00 Lactulose (Enulose) 20 gm TID PRN PO CONSTIPATION Last administered on 13:32; Admin Dose 20 GM; Start 10/23/16 at 17:30 Clonidine HCl (Catapres-Tts 1 Patch) 1 patch Q7D TRANSDERM Last administered on 10/24/16 09:04; Admin Dose 1 PATCH; Start 10/24/16 at 09:00 Insulin Glargine 5 unit 5 unit DAILY@20 SC Last administered on 10/27/16 20:49 ; Admin Dose 5 UNIT; Start 10/24/16 at 20:00 Meropenem (Merrem 500 Mg/ 100 ml (Pmx)) 100 ml @ 200 mls/hr Q24H IVPB Last administered on 10/27/16 20:48; Admin Dose 200 MLS/HR; Start 10/26/16 at 21:00 Sodium Biphosphate/ Sodium Phosphate (Fleet Enema) 133 ml DAILY PRN [place] CONSTIPATION Last administered on 10/26/16 18:33; Admin Dose 133 ML; Start at 18:00 Hydromorphone HCl (Dilaudid CREW ATTENDANT) 0 MG/HR CONTINUOUS RATE ... CREW ATTENDANT IV Last administered on 10/28/16 10:33; Admin Dose 6 MG; Start 10/27/16 at 12:30 Heparin Sodium (Porcine) (Heparin (5000 Units/0.5 ml)) 5,000 unit BID SC Last administered on 10/28/16 09:23; Admin Dose 5,000 UNIT; Start 10/27/16 at 12:30 Naloxone HCl (Narcan) 0.2 mg Q2M PRN IV RR 8 BREATHS/MIN OR LESS; Start at 13:00 GERHARD ALVES Oct 28, 2016 13:53
--- NOTE | 2016-10-28 14:34 | PN ---
Date/Time of Note Date/Time of Note DATE: 10/28/16 TIME: 14:31 Assessment/Plan Lines/Catheters IV Catheter Type (from Nrs): Peripheral IV Correa in Place (from Nrs): No Assessment/Plan Chief Complaint/Hosp Course -Bilateral lower extremity atherosclerosis with gangrene: S/P BKA -Right lower extremity gangrene: will schedule patient for angiogram pending radiographer cardiac catheterization availability -End-stage renal disease: Will eventually plan for creation of a new fistula -Optimize vascular status (BP meds, diet, nutrition, exercise, sugar control, antiplatelets). -Continue antibiotics -Continue with wound vac for now -Appreciate cardiology evaluation -Apply Betadine paint to all the incision lines for now. -Discussed findings, plan and management with the patient and family at the bedside and they understand with certified manager drug -Thank you for allowing us to participate in the care of your patient. Please call with any questions. Problems: Subjective 24 Hr Interval Summary no new vascular events overnight Exam/Review of Systems Vital Signs Vitals Vital Signs Date Time Temp Pulse Resp B/P Pulse Ox O2 Delivery O2 Flow Rate FiO2 10/28/16 13:45 94 10/28/16 12:20 20 10/28/16 12:17 99.1 186/77 100 Nasal Cannula 10/28/16 04:00 2.0 Intake and Output 10/27/16 10/27/16 10/28/16 15:00 23:00 07:00 Intake Total 350 ml 520 ml 200 ml Output Total 100 ml Balance 250 ml 520 ml 200 ml Exam Free Text/Dictation GENERAL: Alert and oriented x3, PULMONARY: Clear to auscultation bilaterally. CARDIOVASCULAR: S1, S2 present. ABDOMEN: Soft, nontender, nondistended. Bowel sounds positive. EXTREMITIES: Right lower extremity palpable femoral pulse, nonpalpable pedal pulse. Motor, sensory intact. Cap refill 3 to 4 seconds. Gangrene of the first and second toe with surrounding erythema and pain of the first toe Left lower extremity: Palpable femoral pulse, nonpalpable graft at the kneel. BKAstump with dressing intact and wound vac intact on distal thigh Results Result Diagram: 10/28/16 0523 10/28/16 0523 CYNDI CARR MD Oct 28, 2016 14:34
[2016-10-28] MEDS: OXYCODONE/ACETAMINOPHEN (5/325) TAB PO PRN ×3 (14:37→22:53)
--- NOTE | 2016-10-28 15:49 | PN ---
DATE: 10/28/2016 SUBJECTIVE: Patient is in hemodialysis, looks comfortable. Family at bedside. LABORATORY DATA: WBC 19, platelets ____, neutrophils 77.6. MICROBIOLOGY: Blood cultures from hemodialysis catheter remain negative. Left lower extremity woun d culture growing gram-negative rods. ANTIMICROBIALS: The patient is on: 1. Zyvox. 2. Merrem. PHYSICAL EXAMINATION: GENERAL: This is well-developed, fragile, elderly man who is awake, in no distress. HEENT: Head atraumatic, normocephalic. Sclerae anicteric. Buccal mucosa dry. NECK: Supple. CHEST: Rise symmetrical. Breath sounds clear. HEART: S1, S2. ABDOMEN: Soft, bowel tones present. EXTREMITIES: Left lower extremity dressing intact. The patient has an immobilizer. ASSESSMENT: 1. Systemic inflammatory response syndrome. 2. Right lower extremity gangrene. 3. Left lower extremity gangrene with infected graft, status post below knee amputation with infect ed graft removal and placement of wound VAC. 4. End-stage renal disease, hemodialysis dependent. 5. Diabetes. 6. Healthcare-acquired pneumonia, improving. PLAN: The patient remains stable. HE IS ALLERGIC TO VANCOMYCIN. He is on Zyvox and Merrem. wound cultures are pending. Continue present care, antibiotics. Follow vascular recommendations. Dictated By: DARLENE MCKEE [employer]ET[employer] for NICOLE SANTANA/SIN Conf#: [id number] DID#: [id number]
[2016-10-28] MEDS: AMLODIPINE 10 MG TAB PO SCH (16:32)
[2016-10-28] MEDS: METOPROLOL 25 MG TAB PO SCH ×2 (16:33→20:51)
--- NOTE | 2016-10-28 20:44 | CONS ---
Date/Time of Note Date/Time of Note DATE: 10/28/16 TIME: 20:41 Assessment/Plan Assessment/Plan Chief Complaint/Hosp Course IMPRESSION: 1. Preoperative evaluation prior to lower extremity vascular surgery, possible amputation.-Now s/p LLE vascular surgery with failed graft and now POD#1 s/p LE amputation 2. Hypertension, uncontrolled. 3. Abnormal electrocardiogram, assess for acute coronary syndrome. 4. Dyslipidemia. 5. Peripheral arterial disease, status post prior revascularization. 6. Lower extremity nonhealing ulceration of the toe. 7. Possible pneumonia by chest x-ray. 8. End-stage renal disease on hemodialysis. 9. Anemia. 10. Leukocytosis. 11. Cardiomyopathy-LVEF 40-45%-negative trop x 3 since admit 12. CHest pain-this evening Recc: -Tele -Continue norvasc/BB and add ACEI afterload reduction to improve BP as well -Local wound care/abx's and f/u cx data -Pain control -Continue ASA -Check ECG and cardiac markers x 2 given c/o chest pain this evening Problems: Consultation Date/Type/Reason Admit Date/Time Oct 18, 2016 at 16:52 Initial Consult Date 10/19/2016 Type of Consultation: Cardiology Reason for Consultation cardiomyopathy/HTN Referring Provider: OZZIE HERRERA MD Exam/Review of Systems Vital Signs Vitals Vital Signs Date Time Temp Pulse Resp B/P Pulse Ox O2 Delivery O2 Flow Rate FiO2 10/28/16 20:01 18 10/28/16 15:50 98.4 74 166/74 99 Room Air 10/28/16 04:00 2.0 Intake and Output 10/27/16 10/27/16 10/28/16 15:00 23:00 07:00 Intake Total 350 ml 520 ml 200 ml Output Total 100 ml Balance 250 ml 520 ml 200 ml Exam Review of Systems: CONSTITUTIONAL: No fevers, chills. PULMONARY: No sob CARDIOVASCULAR: No chest pain/palpitations GASTROINTESTINAL: No nausea/vomiting. GENITOURINARY: No hematuria/dysuria. MUSCULOSKELETAL: Pain in leg s/p amputation PSYCHIATRIC: The patient denies depression. NEUROLOGIC: No weakness Constitutional: alert, oriented Psych: no complaints ENMT: mucosa pink and moist Neck: jvd (9 cm water), supple Respiratory: diminished breath sounds (at bases/B) Cardiovascular: regular rate and rhythm Gastrointestinal: non-tender, soft Musculoskeletal: muscle tone (normal) Extremities: edema (none), other (s/sp LLE amputation) Neurological: other (No focal defciits) Results Result Diagram: 10/28/16 0523 10/28/16 0523 Results 24 hrs Laboratory Tests Test 10/27/16 20:47 10/28/16 05:23 10/28/16 07:43 10/28/16 17:08 Bedside Glucose 180 78 172 White Blood Count 19.0 H Red Blood Count 3.41 L Hemoglobin 10.7 L Hematocrit 32.8 L Mean Corpuscular Volume 96.2 Mean Corpuscular Hemoglobin 31.4 Mean Corpuscular Hemoglobin Concent 32.6 Red Cell Distribution Width 17.5 H Platelet Count 380 Mean Platelet Volume 11.5 H Neutrophils % 77.6 H Lymphocytes % 10.8 L Monocytes % 9.9 Eosinophils % 0.5 Basophils % 0.4 Nucleated Red Blood Cells % 0.0 Neutrophils # 14.7 H Lymphocytes # 2.0 Monocytes # 1.9 H Eosinophils # 0.1 Basophils # 0.1 Nucleated Red Blood Cells # 0.0 Sodium Level 138 Potassium Level 4.6 Chloride Level 95 L Carbon Dioxide Level 23 Anion Gap 25 H Blood Urea Nitrogen 63 H Creatinine 9.25 H Glucose Level 105 Calcium Level 7.7 L Medications Medications Current Medications Metoprolol Tartrate (Lopressor) 25 mg BID PO Last administered on 10/28/16 16: 33; Admin Dose 25 MG; Start 10/18/16 at 19:21 Amlodipine Besylate (Norvasc) 10 mg DAILY PO Last administered on 10/28/16 16: 32; Admin Dose 10 MG; Start 10/19/16 at 09:00 Hydralazine HCl (Apresoline) 10 mg Q4H PRN IV SBP>150 mm Hg Last administered on 10/27/16 20:38; Admin Dose 10 MG; Start 10/18/16 at 20:00 Albuterol (Ventolin Hfa) 2 puff Q8 INH Last administered on 10/28/16 14:48; Admin Dose 2 PUFF; Start 10/18/16 at 22:30 Famotidine (Pepcid) 20 mg DAILY PO Last administered on 10/28/16 09:13; Admin Dose 20 MG; Start 10/19/16 at 09:00 Ondansetron HCl (Zofran Inj) 4 mg Q6H PRN IV NAUSEA AND/OR VOMITING; Start at 22:30 Acetaminophen (Tylenol Tab) 650 mg Q6H PRN PO PAIN LEVEL 1-3 OR FEVER; Start at 22:30 Docusate Sodium (Colace) 100 mg Q12H PRN PO CONSTIPATION Last administered on 13:32; Admin Dose 100 MG; Start 10/18/16 at 22:30 Bisacodyl (Dulcolax Supp) 10 mg DAILY PRN [place] CONSTIPATION Last administered on 10/26/16 07:04; Admin Dose 10 MG; Start 10/18/16 at 22:30 Diagnostic Test (Pha) (Accucheck) 1 ea 02 XX Last administered on 10/27/16 02: 31; Admin Dose 1 EA; Start 10/19/16 at 02:00 Miscellaneous Information 1 ea NOTE XX ; Start 10/18/16 at 22:30 Glucose (Glutose) 15 gm Q15M PRN PO DECREASED GLUCOSE; Start 10/18/16 at 22:30 Glucose (Glutose) 22.5 gm Q15M PRN PO DECREASED GLUCOSE; Start 10/18/16 at 22: 30 Dextrose (D50w Syringe) 25 ml Q15M PRN IV DECREASED GLUCOSE; Start 10/18/16 at 22:30 Dextrose (D50w Syringe) 50 ml Q15M PRN IV DECREASED GLUCOSE Last administered on 10/27/16 09:35; Admin Dose 50 ML; Start 10/18/16 at 22:30 Glucagon (Glucagen) 1 mg Q15M PRN IM DECREASED GLUCOSE; Start 10/18/16 at 22:30 Glucose (Glutose) 15 gm Q15M PRN BUCCAL DECREASED GLUCOSE; Start 10/18/16 at 22 :30 Linezolid (Zyvox) 600 mg BID PO Last administered on 10/28/16 09:13; Admin Dose 600 MG; Start 10/20/16 at 12:15 Aspirin (Halfprin) 81 mg DAILY PO Last administered on 10/28/16 09:13; Admin Dose 81 MG; Start 10/22/16 at 09:00 Lactobacillus Acidoph/Bulgaricus (Floranex) 1 tab BID PO Last administered on 09:13; Admin Dose 1 TAB; Start 10/22/16 at 21:00 Senna/Docusate Sodium (Senokot-S) 2 tab HS PO Last administered on 10/27/16 20 :37; Admin Dose 2 TAB; Start 10/22/16 at 21:00 Lactulose (Enulose) 20 gm TID PRN PO CONSTIPATION Last administered on 13:32; Admin Dose 20 GM; Start 10/23/16 at 17:30 Clonidine HCl (Catapres-Tts 1 Patch) 1 patch Q7D TRANSDERM Last administered on 10/24/16 09:04; Admin Dose 1 PATCH; Start 10/24/16 at 09:00 Insulin Glargine 5 unit 5 unit DAILY@20 SC Last administered on 10/27/16 20:49 ; Admin Dose 5 UNIT; Start 10/24/16 at 20:00 Meropenem (Merrem 500 Mg/ 100 ml (Pmx)) 100 ml @ 200 mls/hr Q24H IVPB Last administered on 10/27/16 20:48; Admin Dose 200 MLS/HR; Start 10/26/16 at 21:00 Sodium Biphosphate/ Sodium Phosphate (Fleet Enema) 133 ml DAILY PRN [place] CONSTIPATION Last administered on 10/26/16 18:33; Admin Dose 133 ML; Start at 18:00 Hydromorphone HCl (Dilaudid NAIL MAKER) 0 MG/HR CONTINUOUS RATE ... NAIL MAKER IV Last administered on 10/28/16 19:52; Admin Dose 6 MG; Start 10/27/16 at 12:30 Heparin Sodium (Porcine) (Heparin (5000 Units/0.5 ml)) 5,000 unit BID SC Last administered on 10/28/16 09:23; Admin Dose 5,000 UNIT; Start 10/27/16 at 12:30 Naloxone HCl (Narcan) 0.2 mg Q2M PRN IV RR 8 BREATHS/MIN OR LESS; Start at 13:00 Oxycodone/ Acetaminophen (Percocet (5/ 325)) 2 tab Q4H PRN PO PAIN Last administered on 10/28/16 18:57; Admin Dose 2 TAB; Start 10/28/16 at 15:00 KAYLEE WILSON 30, 2017 20:44
[2016-10-28] MEDS: DOCUSATE SODIUM 100 MG CAP PO PRN (20:47)
[2016-10-28] MEDS: SENNA/DOCUSATE NA (8.6MG/50MG) TAB PO SCH (20:48)
[2016-10-28] MEDS: INSULIN GLARGINE [LANtus] 3 ML PEN SC SCH (20:49)
[2016-10-28] MEDS: MEROPENEM 500 MG/100 ML (PMX) 100 ML IVPB SCH (20:50)
[2016-10-29] VITALS: BP 142/71; PULSE 72; RESP 18
[2016-10-29] MEDS: HYDROmorphONE 0.2 MG/ML PCA IV SCH ×3 (00:58→20:45)
[2016-10-29 01:15] LABS: CK-MB 2.94 ng/ml (0.0-2.4)
[2016-10-29 01:17] LABS: TROPONIN-I 0.038 ng/ml (0.00-0.12)
[2016-10-29] MEDS: ACCU-CHEK XX SCH (02:00)
[2016-10-29 04:00] VITALS: BP 138/72; PULSE 76; RESP 18
[2016-10-29] MEDS: OXYCODONE/ACETAMINOPHEN (5/325) TAB PO PRN ×4 (04:14→21:24)
[2016-10-29 05:44] LABS: ADD SCAN DIFF NO
[2016-10-29 06:01] LABS: ABNORMAL IP MESSAGE 1; BASOPHIL # 0.1 10^3/ul (0.0-0.1); BASOPHILS % 0.5 % (0.0-2.0); EOSINOPHILS # 0.2 10^3/ul (0.0-0.5); EOSINOPHILS % 1.4 % (0.0-7.0); HEMATOCRIT 32.8 % (42.0-52.0); HEMOGLOBIN 10.1 g/dl (14.0-18.0); LYMPHOCYTES # 2.7 10^3/ul (0.8-2.9); LYMPHOCYTES % 16.8 % (15.0-51.0); MEAN CORPUSCULAR HEMOGLOBIN 30.4 pg (29.0-33.0); MEAN CORPUSCULAR HGB CONC 30.8 g/dl (32.0-37.0); MEAN CORPUSCULAR VOLUME 98.8 fl (82.0-101.0); MEAN PLATELET VOLUME 11.4 fl (7.4-10.4); MONOCYTE # 2.1 10^3/ul (0.3-0.9); MONOCYTES % 12.9 % (0.0-11.0); NEUTROPHIL # 10.9 10^3/ul (1.6-7.5); NEUTROPHILS % 67.6 % (39.0-77.0); PLATELET COUNT 323 10^3/UL (140-415); RED BLOOD COUNT 3.32 10^6/ul (4.70-6.10); RED CELL DISTRIBUTION WIDTH 17.8 % (11.5-14.5); WHITE BLOOD COUNT 16.1 10^3/ul (4.8-10.8)
[2016-10-29 06:05] LABS: CK-MB 2.77 ng/ml (0.0-2.4)
[2016-10-29 06:07] LABS: TROPONIN-I 0.039 ng/ml (0.00-0.12)
[2016-10-29 06:09] LABS: POTASSIUM 4.5 mmol/L (3.5-5.1)
[2016-10-29 06:11] LABS: CREATININE 5.39 mg/dl (0.61-1.24)
[2016-10-29 06:12] LABS: CALCIUM 7.6 mg/dl (8.4-10.2)
[2016-10-29] MEDS: ALBUTEROL HFA 8 GM INHALER INH SCH ×3 (06:39→22:12)
[2016-10-29] MEDS: INSULIN ASPART [NOVOLOG] 3 ML PEN SC SCH ×4 (07:52→21:00)
[2016-10-29 08:33] VITALS: BP 148/66; RESP 16
[2016-10-29] MEDS: ASPIRIN (EC) 81 MG TAB PO SCH (09:51)
[2016-10-29] MEDS: LACTOBACILLUS CHEW TAB PO SCH ×2 (09:51→21:23)
[2016-10-29] MEDS: AMLODIPINE 10 MG TAB PO SCH (09:52)
[2016-10-29] MEDS: FAMOTIDINE 20 MG TAB PO SCH (09:53)
[2016-10-29] MEDS: ZYVOX 600 MG TAB PO SCH ×2 (09:53→21:23)
[2016-10-29] MEDS: METOPROLOL 25 MG TAB PO SCH ×2 (09:53→21:25)
[2016-10-29] MEDS: HEPARIN 5,000 UNIT/0.5 ML VIAL SC SCH ×2 (10:03→22:11)
--- NOTE | 2016-10-29 11:11 | CONS ---
Date/Time of Note Date/Time of Note DATE: 10/29/16 TIME: 11:07 Assessment/Plan Assessment/Plan Chief Complaint/Hosp Course IMPRESSION: 1. Preoperative evaluation prior to lower extremity vascular surgery, possible amputation.-Now s/p LLE vascular surgery with failed graft and now POD#1 s/p LE amputation 2. Hypertension, uncontrolled. 3. Abnormal electrocardiogram, assess for acute coronary syndrome. 4. Dyslipidemia. 5. Peripheral arterial disease, s/p LE amputation 6. Lower extremity nonhealing ulceration of the toe. 7. Possible pneumonia by chest x-ray. 8. End-stage renal disease on hemodialysis. 9. Anemia. 10. Leukocytosis. 11. Cardiomyopathy-LVEF 40-45%-negative trop x 3 since admit 12. CHest drsr-Dxix-ns now resolved. Trop negative x 2 sinc epsiode/EKG 10/29 with lateral TWI(no sig changes) Recc: -Tele -Continue norvasc/BB and add ACEI afterload reduction to improve BP as well -Local wound care/abx's and f/u cx data -Pain control -Continue ASA Problems: Consultation Date/Type/Reason Admit Date/Time Oct 18, 2016 at 16:52 Initial Consult Date 10/19/2016 Type of Consultation: Cardiology Reason for Consultation HTN Referring Provider: OZZIE HERRERA MD Exam/Review of Systems Vital Signs Vitals Vital Signs Date Time Temp Pulse Resp B/P Pulse Ox O2 Delivery O2 Flow Rate FiO2 10/29/16 08:33 98.6 74 16 148/66 96 10/29/16 04:00 Room Air 10/28/16 04:00 2.0 Intake and Output 10/28/16 10/28/16 10/29/16 15:00 23:00 07:00 Intake Total 300 ml 820 ml 400 ml Output Total 1800 ml Balance -1500 ml 820 ml 400 ml Exam Review of Systems: CONSTITUTIONAL: No fevers, chills. PULMONARY: No sob CARDIOVASCULAR: No chest pain/palpitations GASTROINTESTINAL: No nausea/vomiting. GENITOURINARY: No hematuria/dysuria. MUSCULOSKELETAL: Pain in leg PSYCHIATRIC: The patient denies depression. NEUROLOGIC: No weakness Constitutional: alert, oriented Psych: no complaints Head: normocephalic ENMT: mucosa pink and moist Neck: jvd (9 cm water), supple Respiratory: diminished breath sounds (at bases/B) Cardiovascular: regular rate and rhythm Gastrointestinal: non-tender, soft Musculoskeletal: other (s/p LLE amputation) Extremities: edema (none) Neurological: other (NO focal deficits) Results Result Diagram: 10/29/16 0520 10/29/16 0520 Results 24 hrs Laboratory Tests Test 10/28/16 17:08 10/28/16 20:45 10/29/16 00:45 10/29/16 05:20 Bedside Glucose 172 148 Creatine Kinase 285 H 265 H Creatine Kinase Index 1.0 1.0 Creatinine Kinase MB (Mass) 2.94 H 2.77 H Troponin I 0.038 0.039 White Blood Count 16.1 H Red Blood Count 3.32 L Hemoglobin 10.1 L Hematocrit 32.8 L Mean Corpuscular Volume 98.8 Mean Corpuscular Hemoglobin 30.4 Mean Corpuscular Hemoglobin Concent 30.8 L Red Cell Distribution Width 17.8 H Platelet Count 323 Mean Platelet Volume 11.4 H Neutrophils % 67.6 Lymphocytes % 16.8 Monocytes % 12.9 H Eosinophils % 1.4 Basophils % 0.5 Nucleated Red Blood Cells % 0.0 Neutrophils # 10.9 H Lymphocytes # 2.7 Monocytes # 2.1 H Eosinophils # 0.2 Basophils # 0.1 Nucleated Red Blood Cells # 0.0 Sodium Level 135 Potassium Level 4.5 Chloride Level 96 L Carbon Dioxide Level 26 Anion Gap 18 #H Blood Urea Nitrogen 35 #H Creatinine 5.39 #H Glucose Level 74 Calcium Level 7.6 L Test 10/29/16 07:43 10/29/16 08:10 Bedside Glucose 62 L 78 Medications Medications Current Medications Metoprolol Tartrate (Lopressor) 25 mg BID PO Last administered on 10/29/16 09: 53; Admin Dose 25 MG; Start 10/18/16 at 19:21 Amlodipine Besylate (Norvasc) 10 mg DAILY PO Last administered on 10/29/16 09: 52; Admin Dose 10 MG; Start 10/19/16 at 09:00 Hydralazine HCl (Apresoline) 10 mg Q4H PRN IV SBP>150 mm Hg Last administered on 10/27/16 20:38; Admin Dose 10 MG; Start 10/18/16 at 20:00 Albuterol (Ventolin Hfa) 2 puff Q8 INH Last administered on 10/29/16 06:39; Admin Dose 2 PUFF; Start 10/18/16 at 22:30 Famotidine (Pepcid) 20 mg DAILY PO Last administered on 10/29/16 09:53; Admin Dose 20 MG; Start 10/19/16 at 09:00 Ondansetron HCl (Zofran Inj) 4 mg Q6H PRN IV NAUSEA AND/OR VOMITING; Start at 22:30 Acetaminophen (Tylenol Tab) 650 mg Q6H PRN PO PAIN LEVEL 1-3 OR FEVER; Start at 22:30 Docusate Sodium (Colace) 100 mg Q12H PRN PO CONSTIPATION Last administered on 20:47; Admin Dose 100 MG; Start 10/18/16 at 22:30 Bisacodyl (Dulcolax Supp) 10 mg DAILY PRN [place] CONSTIPATION Last administered on 10/26/16 07:04; Admin Dose 10 MG; Start 10/18/16 at 22:30 Diagnostic Test (Pha) (Accucheck) 1 ea 02 XX Last administered on 10/27/16 02: 31; Admin Dose 1 EA; Start 10/19/16 at 02:00 Miscellaneous Information 1 ea NOTE XX ; Start 10/18/16 at 22:30 Glucose (Glutose) 15 gm Q15M PRN PO DECREASED GLUCOSE; Start 10/18/16 at 22:30 Glucose (Glutose) 22.5 gm Q15M PRN PO DECREASED GLUCOSE; Start 10/18/16 at 22: 30 Dextrose (D50w Syringe) 25 ml Q15M PRN IV DECREASED GLUCOSE; Start 10/18/16 at 22:30 Dextrose (D50w Syringe) 50 ml Q15M PRN IV DECREASED GLUCOSE Last administered on 10/27/16 09:35; Admin Dose 50 ML; Start 10/18/16 at 22:30 Glucagon (Glucagen) 1 mg Q15M PRN IM DECREASED GLUCOSE; Start 10/18/16 at 22:30 Glucose (Glutose) 15 gm Q15M PRN BUCCAL DECREASED GLUCOSE; Start 10/18/16 at 22 :30 Linezolid (Zyvox) 600 mg BID PO Last administered on 10/29/16 09:53; Admin Dose 600 MG; Start 10/20/16 at 12:15 Aspirin (Halfprin) 81 mg DAILY PO Last administered on 10/29/16 09:51; Admin Dose 81 MG; Start 10/22/16 at 09:00 Lactobacillus Acidoph/Bulgaricus (Floranex) 1 tab BID PO Last administered on 09:51; Admin Dose 1 TAB; Start 10/22/16 at 21:00 Senna/Docusate Sodium (Senokot-S) 2 tab HS PO Last administered on 10/28/16 20 :48; Admin Dose 2 TAB; Start 10/22/16 at 21:00 Lactulose (Enulose) 20 gm TID PRN PO CONSTIPATION Last administered on 13:32; Admin Dose 20 GM; Start 10/23/16 at 17:30 Clonidine HCl 1 patch 1 patch Q7D TRANSDERM Last administered on 10/24/16 09: 04; Admin Dose 1 PATCH; Start 10/24/16 at 09:00 Meropenem (Merrem 500 Mg/ 100 ml (Pmx)) 100 ml @ 200 mls/hr Q24H IVPB Last administered on 10/28/16 20:50; Admin Dose 200 MLS/HR; Start 10/26/16 at 21:00 Sodium Biphosphate/ Sodium Phosphate (Fleet Enema) 133 ml DAILY PRN [place] CONSTIPATION Last administered on 10/26/16 18:33; Admin Dose 133 ML; Start at 18:00 Hydromorphone HCl (Dilaudid CONFIDENTIAL INVESTIGATOR) 0 MG/HR CONTINUOUS RATE ... CONFIDENTIAL INVESTIGATOR IV Last administered on 10/29/16 07:06; Admin Dose 6 MG; Start 10/27/16 at 12:30 Heparin Sodium (Porcine) (Heparin (5000 Units/0.5 ml)) 5,000 unit BID SC Last administered on 10/29/16 10:03; Admin Dose 5,000 UNIT; Start 10/27/16 at 12:30 Naloxone HCl (Narcan) 0.2 mg Q2M PRN IV RR 8 BREATHS/MIN OR LESS; Start at 13:00 Oxycodone/ Acetaminophen (Percocet (5/ 325)) 2 tab Q4H PRN PO PAIN Last administered on 10/29/16 09:55; Admin Dose 2 TAB; Start 10/28/16 at 15:00 Insulin Glargine (Lantus) 4 unit DAILY@20 SC ; Start 10/29/16 at 20:00 KAYLEE WILSON Oct 29, 2016 11:11
--- NOTE | 2016-10-29 11:38 | CONS ---
Date/Time of Note Date/Time of Note DATE: 10/29/16 TIME: 11:36 Assessment/Plan Assessment/Plan Additional Assessment/Plan 1. 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 Failed redo bypass.post-surgical intervention with thrombectomy, exploration of the above knee popliteal graft and debridement of left lower extremity wound with wound VAC application on 10/19/2016. 2. Severe stenosis of the right distal superficial femoral artery and occluded right posterior tibial artery. 3. End-stage renal disease on hemodialysis Tuesday, , Tuesday. 4. Accelerated hypertension. 5. Hyperlipidemia. 6. History of hypertension with peripheral arterial disease. 7. History of peripheral arterial disease status post left lower extremity bypass in September 2016. PLAN: Plan for HD tomoorw, pending blood cx from [facility] Status post-surgical intervention with thrombectomy, exploration of the above knee popliteal graft and debridement of left lower extremity wound with wound VAC application on 10/19/2016. will follow up Consultation Date/Type/Reason Admit Date/Time Oct 18, 2016 at 16:52 Initial Consult Date 10/18/2016 Type of Consultation: NEPHROLOGY Referring Provider: OZZIE HERRERA MD 24 HR Interval Summary Free Text/Dictation doing ok, no complaints, Plan for HD tomorrow Exam/Review of Systems Vital Signs Vitals Vital Signs Date Time Temp Pulse Resp B/P Pulse Ox O2 Delivery O2 Flow Rate FiO2 10/29/16 08:33 98.6 74 16 148/66 96 10/29/16 04:00 Room Air 10/28/16 04:00 2.0 Intake and Output 10/28/16 10/28/16 10/29/16 15:00 23:00 07:00 Intake Total 300 ml 820 ml 400 ml Output Total 1800 ml Balance -1500 ml 820 ml 400 ml Exam GENERAL: This is well-developed, fragile, elderly man who is awake, in no distress. HEENT: Head atraumatic, normocephalic. Sclerae anicteric. Buccal mucosa dry. NECK: Supple. CHEST: Rise symmetrical. Breath sounds clear. HEART: S1, S2. ABDOMEN: Soft, bowel tones present. EXTREMITIES: Left lower extremity dressing intact. The patient has an immobilizer. Results Result Diagram: 3/31/17 0520 3/31/17 0520 Results 24 hrs Laboratory Tests Test 10/28/16 17:08 10/28/16 20:45 10/29/16 00:45 10/29/16 05:20 Bedside Glucose 172 148 Creatine Kinase 285 H 265 H Creatine Kinase Index 1.0 1.0 Creatinine Kinase MB (Mass) 2.94 H 2.77 H Troponin I 0.038 0.039 White Blood Count 16.1 H Red Blood Count 3.32 L Hemoglobin 10.1 L Hematocrit 32.8 L Mean Corpuscular Volume 98.8 Mean Corpuscular Hemoglobin 30.4 Mean Corpuscular Hemoglobin Concent 30.8 L Red Cell Distribution Width 17.8 H Platelet Count 323 Mean Platelet Volume 11.4 H Neutrophils % 67.6 Lymphocytes % 16.8 Monocytes % 12.9 H Eosinophils % 1.4 Basophils % 0.5 Nucleated Red Blood Cells % 0.0 Neutrophils # 10.9 H Lymphocytes # 2.7 Monocytes # 2.1 H Eosinophils # 0.2 Basophils # 0.1 Nucleated Red Blood Cells # 0.0 Sodium Level 135 Potassium Level 4.5 Chloride Level 96 L Carbon Dioxide Level 26 Anion Gap 18 #H Blood Urea Nitrogen 35 #H Creatinine 5.39 #H Glucose Level 74 Calcium Level 7.6 L Test 10/29/16 07:43 10/29/16 08:10 Bedside Glucose 62 L 78 Medications Medications Current Medications Metoprolol Tartrate (Lopressor) 25 mg BID PO Last administered on 10/29/16 09: 53; Admin Dose 25 MG; Start 10/18/16 at 19:21 Amlodipine Besylate (Norvasc) 10 mg DAILY PO Last administered on 10/29/16 09: 52; Admin Dose 10 MG; Start 10/19/16 at 09:00 Hydralazine HCl (Apresoline) 10 mg Q4H PRN IV SBP>150 mm Hg Last administered on 10/27/16 20:38; Admin Dose 10 MG; Start 10/18/16 at 20:00 Albuterol (Ventolin Hfa) 2 puff Q8 INH Last administered on 10/29/16 06:39; Admin Dose 2 PUFF; Start 10/18/16 at 22:30 Famotidine (Pepcid) 20 mg DAILY PO Last administered on 10/29/16 09:53; Admin Dose 20 MG; Start 10/19/16 at 09:00 Ondansetron HCl (Zofran Inj) 4 mg Q6H PRN IV NAUSEA AND/OR VOMITING; Start at 22:30 Acetaminophen (Tylenol Tab) 650 mg Q6H PRN PO PAIN LEVEL 1-3 OR FEVER; Start at 22:30 Docusate Sodium (Colace) 100 mg Q12H PRN PO CONSTIPATION Last administered on 20:47; Admin Dose 100 MG; Start 10/18/16 at 22:30 Bisacodyl (Dulcolax Supp) 10 mg DAILY PRN [place] CONSTIPATION Last administered on 10/26/16 07:04; Admin Dose 10 MG; Start 10/18/16 at 22:30 Diagnostic Test (Pha) (Accucheck) 1 ea 02 XX Last administered on 10/27/16 02: 31; Admin Dose 1 EA; Start 10/19/16 at 02:00 Miscellaneous Information 1 ea NOTE XX ; Start 10/18/16 at 22:30 Glucose (Glutose) 15 gm Q15M PRN PO DECREASED GLUCOSE; Start 10/18/16 at 22:30 Glucose (Glutose) 22.5 gm Q15M PRN PO DECREASED GLUCOSE; Start 10/18/16 at 22: 30 Dextrose (D50w Syringe) 25 ml Q15M PRN IV DECREASED GLUCOSE; Start 10/18/16 at 22:30 Dextrose (D50w Syringe) 50 ml Q15M PRN IV DECREASED GLUCOSE Last administered on 10/27/16 09:35; Admin Dose 50 ML; Start 10/18/16 at 22:30 Glucagon (Glucagen) 1 mg Q15M PRN IM DECREASED GLUCOSE; Start 10/18/16 at 22:30 Glucose (Glutose) 15 gm Q15M PRN BUCCAL DECREASED GLUCOSE; Start 10/18/16 at 22 :30 Linezolid (Zyvox) 600 mg BID PO Last administered on 10/29/16 09:53; Admin Dose 600 MG; Start 10/20/16 at 12:15 Aspirin (Halfprin) 81 mg DAILY PO Last administered on 10/29/16 09:51; Admin Dose 81 MG; Start 10/22/16 at 09:00 Lactobacillus Acidoph/Bulgaricus (Floranex) 1 tab BID PO Last administered on 09:51; Admin Dose 1 TAB; Start 10/22/16 at 21:00 Senna/Docusate Sodium (Senokot-S) 2 tab HS PO Last administered on 10/28/16 20 :48; Admin Dose 2 TAB; Start 10/22/16 at 21:00 Lactulose (Enulose) 20 gm TID PRN PO CONSTIPATION Last administered on 13:32; Admin Dose 20 GM; Start 10/23/16 at 17:30 Clonidine HCl 1 patch 1 patch Q7D TRANSDERM Last administered on 10/24/16 09: 04; Admin Dose 1 PATCH; Start 10/24/16 at 09:00 Meropenem (Merrem 500 Mg/ 100 ml (Pmx)) 100 ml @ 200 mls/hr Q24H IVPB Last administered on 10/28/16 20:50; Admin Dose 200 MLS/HR; Start 10/26/16 at 21:00 Sodium Biphosphate/ Sodium Phosphate (Fleet Enema) 133 ml DAILY PRN [place] CONSTIPATION Last administered on 10/26/16 18:33; Admin Dose 133 ML; Start at 18:00 Hydromorphone HCl (Dilaudid MIGRATION AGENT) 0 MG/HR CONTINUOUS RATE ... MIGRATION AGENT IV Last administered on 10/29/16 07:06; Admin Dose 6 MG; Start 10/27/16 at 12:30 Heparin Sodium (Porcine) (Heparin (5000 Units/0.5 ml)) 5,000 unit BID SC Last administered on 10/29/16 10:03; Admin Dose 5,000 UNIT; Start 10/27/16 at 12:30 Naloxone HCl (Narcan) 0.2 mg Q2M PRN IV RR 8 BREATHS/MIN OR LESS; Start at 13:00 Oxycodone/ Acetaminophen (Percocet (5/ 325)) 2 tab Q4H PRN PO PAIN Last administered on 10/29/16 09:55; Admin Dose 2 TAB; Start 10/28/16 at 15:00 Insulin Glargine (Lantus) 4 unit DAILY@20 SC ; Start 10/29/16 at 20:00 Benazepril HCl (Lotensin) 10 mg BID PO ; Start 3/31/17 at 21:00 LISA MERRITT MD Oct 29, 2016 11:38
--- NOTE | 2016-10-29 14:04 | RADRPT ---
Vent Rate: 70 bpm RR Interval: 0 msec [place] Interval: 156 msec QRS Duration: 110 msec QT Interval: 420 msec QTC Interval: 453 msec P-R-T Julian: 47 - -57 - 85 degrees Normal sinus rhythm Possible Left atrial enlargement Left anterior fascicular block T wave abnormality, consider lateral ischemia Abnormal ECG Electronically Signed By: Rafa Meeks [id number]
--- NOTE | 2016-10-29 14:53 | PN ---
Date/Time of Note Date/Time of Note DATE: 10/29/16 TIME: 14:51 Assessment/Plan VTE Prophylaxis VTE Prophylaxis Intervention: heparin Lines/Catheters IV C[facility]ter Type (from [facility] Peripheral IV Urinary Cath still in place: No Assessment/Plan Chief Complaint/Hosp Course Assessment and plan 1. 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 Patient does have history of bypass on area that had thrombosed. Continue on heparin drip. 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 Also noted with right lower extremity gangrene. Tentative plan for angiogram of right lower extremity. Follow-up with vascular surgeon recommendations. Continue with analgesics. wound care per vascular surgeon. will follow up 2. ESRD on dialysis. Continue on HD. Follow-up with nephrology recommendations 3. Hypertension. Continue on antihypertensives and adjust needed. Stable 4. Anemia of chronic disease. H&H stable. Monitor for now. 5. History of diabetes. Continue on insulin regimen. Will adjust as needed 6. CAD. Continue on antiplatelet therapy Disposition and plan: Status post BKA of left lower extremity. plan for RLE angiogram per surgeon. will follow up. cont with analgesics Discussed on of care with Dr. Cha Problems: Subjective 24 Hr Interval Summary Free Text/Dictation still reports moderate pain LLE Exam/Review of Systems Vital Signs Vitals Vital Signs Date Time Temp Pulse Resp B/P Pulse Ox O2 Delivery O2 Flow Rate FiO2 10/29/16 08:33 98.6 74 16 148/66 96 10/29/16 04:00 Room Air 10/28/16 04:00 2.0 Intake and Output 10/28/16 10/28/16 10/29/16 14:59 22:59 06:59 Intake Total 300 ml 820 ml 400 ml Output Total 1800 ml Balance -1500 ml 820 ml 400 ml Exam General: no s/s of distress Eyes: pupils equal round, Anicteric sclera today Neck: no jvd seen Cardiac: regular rate Pulmonary: No coarse rhonchi or breathing auscultated GI: Abdomen soft nontender nondistended, bowel sounds active Extremities: Status post BKA of left lower extremity. Dressing in place. Clean dry and intact. Noted with Mauricio wrap Skin: Scabs on necrotic appearance of right lower extremity Neurologic: Alert to person place and time and situation Results Result Diagram: 10/29/16 0520 10/29/16 0520 Results 24 hrs Laboratory Tests Test 10/28/16 17:08 10/28/16 20:45 10/29/16 00:45 10/29/16 05:20 Bedside Glucose 172 148 Creatine Kinase 285 H 265 H Creatine Kinase Index 1.0 1.0 Creatinine Kinase MB (Mass) 2.94 H 2.77 H Troponin I 0.038 0.039 White Blood Count 16.1 H Red Blood Count 3.32 L Hemoglobin 10.1 L Hematocrit 32.8 L Mean Corpuscular Volume 98.8 Mean Corpuscular Hemoglobin 30.4 Mean Corpuscular Hemoglobin Concent 30.8 L Red Cell Distribution Width 17.8 H Platelet Count 323 Mean Platelet Volume 11.4 H Neutrophils % 67.6 Lymphocytes % 16.8 Monocytes % 12.9 H Eosinophils % 1.4 Basophils % 0.5 Nucleated Red Blood Cells % 0.0 Neutrophils # 10.9 H Lymphocytes # 2.7 Monocytes # 2.1 H Eosinophils # 0.2 Basophils # 0.1 Nucleated Red Blood Cells # 0.0 Sodium Level 135 Potassium Level 4.5 Chloride Level 96 L Carbon Dioxide Level 26 Anion Gap 18 #H Blood Urea Nitrogen 35 #H Creatinine 5.39 #H Glucose Level 74 Calcium Level 7.6 L Test 10/29/16 07:43 10/29/16 08:10 10/29/16 12:08 Bedside Glucose 62 L 78 104 Medications Medications Current Medications Metoprolol Tartrate (Lopressor) 25 mg BID PO Last administered on 10/29/16 09: 53; Admin Dose 25 MG; Start 10/18/16 at 19:21 Amlodipine Besylate (Norvasc) 10 mg DAILY PO Last administered on 10/29/16 09: 52; Admin Dose 10 MG; Start 10/19/16 at 09:00 Hydralazine HCl (Apresoline) 10 mg Q4H PRN IV SBP>150 mm Hg Last administered on 10/27/16 20:38; Admin Dose 10 MG; Start 10/18/16 at 20:00 Albuterol (Ventolin Hfa) 2 puff Q8 INH Last administered on 10/29/16 06:39; Admin Dose 2 PUFF; Start 10/18/16 at 22:30 Famotidine (Pepcid) 20 mg DAILY PO Last administered on 10/29/16 09:53; Admin Dose 20 MG; Start 10/19/16 at 09:00 Ondansetron HCl (Zofran Inj) 4 mg Q6H PRN IV NAUSEA AND/OR VOMITING; Start at 22:30 Acetaminophen (Tylenol Tab) 650 mg Q6H PRN PO PAIN LEVEL 1-3 OR FEVER; Start at 22:30 Docusate Sodium (Colace) 100 mg Q12H PRN PO CONSTIPATION Last administered on 20:47; Admin Dose 100 MG; Start 10/18/16 at 22:30 Bisacodyl (Dulcolax Supp) 10 mg DAILY PRN [place] CONSTIPATION Last administered on 10/26/16 07:04; Admin Dose 10 MG; Start 10/18/16 at 22:30 Diagnostic Test (Pha) (Accucheck) 1 ea 02 XX Last administered on 10/27/16 02: 31; Admin Dose 1 EA; Start 10/19/16 at 02:00 Miscellaneous Information 1 ea NOTE XX ; Start 10/18/16 at 22:30 Glucose (Glutose) 15 gm Q15M PRN PO DECREASED GLUCOSE; Start 10/18/16 at 22:30 Glucose (Glutose) 22.5 gm Q15M PRN PO DECREASED GLUCOSE; Start 10/18/16 at 22: 30 Dextrose (D50w Syringe) 25 ml Q15M PRN IV DECREASED GLUCOSE; Start 10/18/16 at 22:30 Dextrose (D50w Syringe) 50 ml Q15M PRN IV DECREASED GLUCOSE Last administered on 10/27/16 09:35; Admin Dose 50 ML; Start 10/18/16 at 22:30 Glucagon (Glucagen) 1 mg Q15M PRN IM DECREASED GLUCOSE; Start 10/18/16 at 22:30 Glucose (Glutose) 15 gm Q15M PRN BUCCAL DECREASED GLUCOSE; Start 10/18/16 at 22 :30 Linezolid (Zyvox) 600 mg BID PO Last administered on 10/29/16 09:53; Admin Dose 600 MG; Start 10/20/16 at 12:15 Aspirin (Halfprin) 81 mg DAILY PO Last administered on 10/29/16 09:51; Admin Dose 81 MG; Start 10/22/16 at 09:00 Lactobacillus Acidoph/Bulgaricus (Floranex) 1 tab BID PO Last administered on 09:51; Admin Dose 1 TAB; Start 10/22/16 at 21:00 Senna/Docusate Sodium (Senokot-S) 2 tab HS PO Last administered on 10/28/16 20 :48; Admin Dose 2 TAB; Start 10/22/16 at 21:00 Lactulose (Enulose) 20 gm TID PRN PO CONSTIPATION Last administered on 13:32; Admin Dose 20 GM; Start 10/23/16 at 17:30 Clonidine HCl 1 patch 1 patch Q7D TRANSDERM Last administered on 10/24/16 09: 04; Admin Dose 1 PATCH; Start 10/24/16 at 09:00 Meropenem (Merrem 500 Mg/ 100 ml (Pmx)) 100 ml @ 200 mls/hr Q24H IVPB Last administered on 10/28/16 20:50; Admin Dose 200 MLS/HR; Start 10/26/16 at 21:00 Sodium Biphosphate/ Sodium Phosphate (Fleet Enema) 133 ml DAILY PRN [place] CONSTIPATION Last administered on 10/26/16 18:33; Admin Dose 133 ML; Start at 18:00 Hydromorphone HCl (Dilaudid MERCHANDISE PICKUP/RECEIVING ASSOCIATE) 0 MG/HR CONTINUOUS RATE ... MERCHANDISE PICKUP/RECEIVING ASSOCIATE IV Last administered on 10/29/16 07:06; Admin Dose 6 MG; Start 10/27/16 at 12:30 Heparin Sodium (Porcine) (Heparin (5000 Units/0.5 ml)) 5,000 unit BID SC Last administered on 10/29/16 10:03; Admin Dose 5,000 UNIT; Start 10/27/16 at 12:30 Naloxone HCl (Narcan) 0.2 mg Q2M PRN IV RR 8 BREATHS/MIN OR LESS; Start at 13:00 Oxycodone/ Acetaminophen (Percocet (5/ 325)) 2 tab Q4H PRN PO PAIN Last administered on 10/29/16 09:55; Admin Dose 2 TAB; Start 10/28/16 at 15:00 Insulin Glargine (Lantus) 4 unit DAILY@20 SC ; Start 10/29/16 at 20:00 Benazepril HCl (Lotensin) 10 mg BID PO ; Start 10/29/16 at 21:00 GERHARD ALVES Oct 29, 2016 14:53
--- NOTE | 2016-10-29 15:10 | CONS ---
Date/Time of Note Date/Time of Note DATE: 10/29/16 TIME: 15:07 Assessment/Plan Assessment/Plan Chief Complaint/Hosp Course SUBJECTIVE: Patient is awake, looks comfortable. 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 Left lower extremity wound culture growing E coli ESBL ANTIMICROBIALS: The patient is on: 1. Zyvox. 2. Merrem. PHYSICAL EXAMINATION: GENERAL: This is well-developed, fragile, elderly man who is awake, in no distress. HEENT: Head atraumatic, normocephalic. Sclerae anicteric. Buccal mucosa dry. NECK: Supple. CHEST: Rise symmetrical. Breath sounds clear. HEART: S1, S2. ABDOMEN: Soft, bowel tones present. EXTREMITIES: Left lower extremity dressing intact. The patient has an immobilizer. ASSESSMENT: 1. Systemic inflammatory response syndrome. 2. Right lower extremity gangrene. 3. 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 4. End-stage renal disease, hemodialysis dependent. 5. Diabetes. 6. Healthcare-acquired pneumonia, improving. PLAN: The patient remains stable. Will dc Zyvox and continue Merrem, f/u vascular recommendations, pain management/ELECTRIC ORGAN ASSEMBLER. DW staff/.pt Problems: Consultation Date/Type/Reason Admit Date/Time Oct 18, 2016 at 16:52 Type of Consultation: id Referring Provider: OZZIE HERRERA MD Exam/Review of Systems Vital Signs Vitals Vital Signs Date Time Temp Pulse Resp B/P Pulse Ox O2 Delivery O2 Flow Rate FiO2 10/29/16 08:33 98.6 74 16 148/66 96 10/29/16 04:00 Room Air 10/28/16 04:00 2.0 Intake and Output 10/28/16 10/28/16 10/29/16 14:59 22:59 06:59 Intake Total 300 ml 820 ml 400 ml Output Total 1800 ml Balance -1500 ml 820 ml 400 ml Results Result Diagram: 10/29/16 0520 10/29/16 0520 Results 24 hrs Laboratory Tests Test 10/28/16 17:08 10/28/16 20:45 10/29/16 00:45 10/29/16 05:20 Bedside Glucose 172 148 Creatine Kinase 285 H 265 H Creatine Kinase Index 1.0 1.0 Creatinine Kinase MB (Mass) 2.94 H 2.77 H Troponin I 0.038 0.039 White Blood Count 16.1 H Red Blood Count 3.32 L Hemoglobin 10.1 L Hematocrit 32.8 L Mean Corpuscular Volume 98.8 Mean Corpuscular Hemoglobin 30.4 Mean Corpuscular Hemoglobin Concent 30.8 L Red Cell Distribution Width 17.8 H Platelet Count 323 Mean Platelet Volume 11.4 H Neutrophils % 67.6 Lymphocytes % 16.8 Monocytes % 12.9 H Eosinophils % 1.4 Basophils % 0.5 Nucleated Red Blood Cells % 0.0 Neutrophils # 10.9 H Lymphocytes # 2.7 Monocytes # 2.1 H Eosinophils # 0.2 Basophils # 0.1 Nucleated Red Blood Cells # 0.0 Sodium Level 135 Potassium Level 4.5 Chloride Level 96 L Carbon Dioxide Level 26 Anion Gap 18 #H Blood Urea Nitrogen 35 #H Creatinine 5.39 #H Glucose Level 74 Calcium Level 7.6 L Test 10/29/16 07:43 10/29/16 08:10 10/29/16 12:08 Bedside Glucose 62 L 78 104 Medications Medications Current Medications Metoprolol Tartrate (Lopressor) 25 mg BID PO Last administered on 10/29/16 09: 53; Admin Dose 25 MG; Start 10/18/16 at 19:21 Amlodipine Besylate (Norvasc) 10 mg DAILY PO Last administered on 10/29/16 09: 52; Admin Dose 10 MG; Start 10/19/16 at 09:00 Hydralazine HCl (Apresoline) 10 mg Q4H PRN IV SBP>150 mm Hg Last administered on 10/27/16 20:38; Admin Dose 10 MG; Start 10/18/16 at 20:00 Albuterol (Ventolin Hfa) 2 puff Q8 INH Last administered on 10/29/16 14:54; Admin Dose 2 PUFF; Start 10/18/16 at 22:30 Famotidine (Pepcid) 20 mg DAILY PO Last administered on 10/29/16 09:53; Admin Dose 20 MG; Start 10/19/16 at 09:00 Ondansetron HCl (Zofran Inj) 4 mg Q6H PRN IV NAUSEA AND/OR VOMITING; Start at 22:30 Acetaminophen (Tylenol Tab) 650 mg Q6H PRN PO PAIN LEVEL 1-3 OR FEVER; Start at 22:30 Docusate Sodium (Colace) 100 mg Q12H PRN PO CONSTIPATION Last administered on 20:47; Admin Dose 100 MG; Start 10/18/16 at 22:30 Bisacodyl (Dulcolax Supp) 10 mg DAILY PRN [place] CONSTIPATION Last administered on 10/26/16 07:04; Admin Dose 10 MG; Start 10/18/16 at 22:30 Diagnostic Test (Pha) (Accucheck) 1 ea 02 XX Last administered on 10/27/16 02: 31; Admin Dose 1 EA; Start 10/19/16 at 02:00 Miscellaneous Information 1 ea NOTE XX ; Start 10/18/16 at 22:30 Glucose (Glutose) 15 gm Q15M PRN PO DECREASED GLUCOSE; Start 10/18/16 at 22:30 Glucose (Glutose) 22.5 gm Q15M PRN PO DECREASED GLUCOSE; Start 10/18/16 at 22: 30 Dextrose (D50w Syringe) 25 ml Q15M PRN IV DECREASED GLUCOSE; Start 10/18/16 at 22:30 Dextrose (D50w Syringe) 50 ml Q15M PRN IV DECREASED GLUCOSE Last administered on 10/27/16 09:35; Admin Dose 50 ML; Start 10/18/16 at 22:30 Glucagon (Glucagen) 1 mg Q15M PRN IM DECREASED GLUCOSE; Start 10/18/16 at 22:30 Glucose (Glutose) 15 gm Q15M PRN BUCCAL DECREASED GLUCOSE; Start 10/18/16 at 22 :30 Linezolid (Zyvox) 600 mg BID PO Last administered on 10/29/16 09:53; Admin Dose 600 MG; Start 10/20/16 at 12:15 Aspirin (Halfprin) 81 mg DAILY PO Last administered on 10/29/16 09:51; Admin Dose 81 MG; Start 10/22/16 at 09:00 Lactobacillus Acidoph/Bulgaricus (Floranex) 1 tab BID PO Last administered on 09:51; Admin Dose 1 TAB; Start 10/22/16 at 21:00 Senna/Docusate Sodium (Senokot-S) 2 tab HS PO Last administered on 10/28/16 20 :48; Admin Dose 2 TAB; Start 10/22/16 at 21:00 Lactulose (Enulose) 20 gm TID PRN PO CONSTIPATION Last administered on 13:32; Admin Dose 20 GM; Start 10/23/16 at 17:30 Clonidine HCl 1 patch 1 patch Q7D TRANSDERM Last administered on 10/24/16 09: 04; Admin Dose 1 PATCH; Start 10/24/16 at 09:00 Meropenem (Merrem 500 Mg/ 100 ml (Pmx)) 100 ml @ 200 mls/hr Q24H IVPB Last administered on 10/28/16 20:50; Admin Dose 200 MLS/HR; Start 10/26/16 at 21:00 Sodium Biphosphate/ Sodium Phosphate (Fleet Enema) 133 ml DAILY PRN [place] CONSTIPATION Last administered on 10/26/16 18:33; Admin Dose 133 ML; Start at 18:00 Hydromorphone HCl (Dilaudid ELECTRIC ORGAN ASSEMBLER) 0 MG/HR CONTINUOUS RATE ... ELECTRIC ORGAN ASSEMBLER IV Last administered on 10/29/16 07:06; Admin Dose 6 MG; Start 10/27/16 at 12:30 Heparin Sodium (Porcine) (Heparin (5000 Units/0.5 ml)) 5,000 unit BID SC Last administered on 10/29/16 10:03; Admin Dose 5,000 UNIT; Start 10/27/16 at 12:30 Naloxone HCl (Narcan) 0.2 mg Q2M PRN IV RR 8 BREATHS/MIN OR LESS; Start at 13:00 Oxycodone/ Acetaminophen (Percocet (5/ 325)) 2 tab Q4H PRN PO PAIN Last administered on 10/29/16 14:51; Admin Dose 2 TAB; Start 10/28/16 at 15:00 Insulin Glargine (Lantus) 4 unit DAILY@20 SC ; Start 10/29/16 at 20:00 Benazepril HCl (Lotensin) 10 mg BID PO ; Start 10/29/16 at 21:00 DARLENE MCKEE NP Oct 29, 2016 15:09
[2016-10-29 20:13] VITALS: BP 139/65; RESP 18
[2016-10-29 20:15] VITALS: BP 139/65; PULSE 71; RESP 18
[2016-10-29] MEDS: MEROPENEM 500 MG/100 ML (PMX) 100 ML IVPB SCH (21:23)
[2016-10-29] MEDS: SENNA/DOCUSATE NA (8.6MG/50MG) TAB PO SCH (21:23)
[2016-10-29] MEDS: INSULIN GLARGINE [LANtus] 3 ML PEN SC SCH (21:29)
[2016-10-29] MEDS: BENAZEPRIL 10 MG TAB PO SCH (21:31)
[2016-10-30] VITALS (11 sets, daily range): BP systolic 122–180; BP diastolic 59–85; PULSE 74–96; RESP 18–20
[2016-10-30] MEDS: ACCU-CHEK XX SCH (02:00)
[2016-10-30] MEDS: OXYCODONE/ACETAMINOPHEN (5/325) TAB PO PRN ×3 (02:48→19:55)
[2016-10-30 06:38] LABS: ADD SCAN DIFF NO
[2016-10-30 06:49] LABS: ABNORMAL IP MESSAGE 1; BASOPHIL # 0.1 10^3/ul (0.0-0.1); BASOPHILS % 0.3 % (0.0-2.0); EOSINOPHILS # 0.1 10^3/ul (0.0-0.5); EOSINOPHILS % 0.5 % (0.0-7.0); HEMATOCRIT 33.8 % (42.0-52.0); HEMOGLOBIN 10.6 g/dl (14.0-18.0); LYMPHOCYTES # 2.1 10^3/ul (0.8-2.9); LYMPHOCYTES % 12.2 % (15.0-51.0); MEAN CORPUSCULAR HEMOGLOBIN 30.6 pg (29.0-33.0); MEAN CORPUSCULAR HGB CONC 31.4 g/dl (32.0-37.0); MEAN CORPUSCULAR VOLUME 97.7 fl (82.0-101.0); MEAN PLATELET VOLUME 11.3 fl (7.4-10.4); MONOCYTE # 1.8 10^3/ul (0.3-0.9); MONOCYTES % 10.2 % (0.0-11.0); NEUTROPHIL # 13.3 10^3/ul (1.6-7.5); NEUTROPHILS % 75.8 % (39.0-77.0); PLATELET COUNT 364 10^3/UL (140-415); RED BLOOD COUNT 3.46 10^6/ul (4.70-6.10); RED CELL DISTRIBUTION WIDTH 17.2 % (11.5-14.5); WHITE BLOOD COUNT 17.5 10^3/ul (4.8-10.8)
[2016-10-30] MEDS: ALBUTEROL HFA 8 GM INHALER INH SCH ×3 (06:52→22:25)
[2016-10-30 07:18] LABS: POTASSIUM 4.3 mmol/L (3.5-5.1)
[2016-10-30 07:21] LABS: CREATININE 7.72 mg/dl (0.61-1.24)
[2016-10-30 07:22] LABS: CALCIUM 7.8 mg/dl (8.4-10.2)
--- NOTE | 2016-10-30 08:01 | PN ---
Date/Time of Note Date/Time of Note DATE: 10/30/16 TIME: 07:56 Assessment/Plan Lines/Catheters IV Catheter Type (from Nrs): Peripheral IV Correa in Place (from Nrs): No Assessment/Plan Chief Complaint/Hosp Course -Bilateral lower extremity atherosclerosis with gangrene: S/P BKA -LLE medial thigh wound: Changed wound vac today, will start wound management consult for vac change MWF -Right lower extremity gangrene: will schedule patient for angiogram pending laboratory miller availability -End-stage renal disease: Will eventually plan for creation of a new fistula -Optimize vascular status (BP meds, diet, nutrition, exercise, sugar control, antiplatelets). -Continue antibiotics - cultures of graft ESBL -Continue with wound vac for now -Appreciate cardiology evaluation -Apply Betadine paint to all the incision lines for now. -Discussed findings, plan and management with the patient and family at the bedside and they understand with certified knot tying operator -Thank you for allowing us to participate in the care of your patient. Please call with any questions. Problems: Subjective 24 Hr Interval Summary no new vascular events overnight, pain seems to be controlled Exam/Review of Systems Vital Signs Vitals Vital Signs Date Time Temp Pulse Resp B/P Pulse Ox O2 Delivery O2 Flow Rate FiO2 10/30/16 04:10 98.6 80 20 135/68 95 Room Air 10/28/16 04:00 2.0 Intake and Output 10/29/16 10/29/16 10/30/16 15:00 23:00 07:00 Intake Total 1380 ml 240 ml Output Total 200 ml 50 ml Balance 1180 ml 190 ml Exam Free Text/Dictation GENERAL: Alert and oriented x3, PULMONARY: Clear to auscultation bilaterally. CARDIOVASCULAR: S1, S2 present. ABDOMEN: Soft, nontender, nondistended. Bowel sounds positive. EXTREMITIES: Right lower extremity palpable femoral pulse, nonpalpable pedal pulse. Motor, sensory intact. Cap refill 3 to 4 seconds. Gangrene of the first and second toe with surrounding erythema resolving and pain of the first toe Left lower extremity: Palpable femoral pulse, BKAstump with cap refill of 3 seconds, medial thigh with wound vac intact - removed, wound base with some fibrinous tissue, seems viable, medial stump with blister on the anterior flap, Results Result Diagram: 10/30/16 0517 10/30/16 0517 CYNDI CARR MD Oct 30, 2016 08:01
[2016-10-30] MEDS: INSULIN ASPART [NOVOLOG] 3 ML PEN SC SCH ×4 (08:15→20:29)
[2016-10-30] MEDS: BENAZEPRIL 10 MG TAB PO SCH ×2 (08:33→20:29)
[2016-10-30] MEDS: METOPROLOL 25 MG TAB PO SCH ×2 (08:33→20:29)
[2016-10-30] MEDS: AMLODIPINE 10 MG TAB PO SCH (08:34)
[2016-10-30] MEDS: ZYVOX 600 MG TAB PO SCH ×2 (10:10→20:28)
[2016-10-30] MEDS: LACTOBACILLUS CHEW TAB PO SCH ×2 (10:10→20:28)
[2016-10-30] MEDS: ASPIRIN (EC) 81 MG TAB PO SCH (10:10)
[2016-10-30] MEDS: FAMOTIDINE 20 MG TAB PO SCH (10:10)
[2016-10-30] MEDS: HEPARIN 5,000 UNIT/0.5 ML VIAL SC SCH ×2 (10:47→20:34)
--- NOTE | 2016-10-30 15:40 | PN ---
Date/Time of Note Date/Time of Note DATE: 10/30/16 TIME: 15:39 Assessment/Plan VTE Prophylaxis VTE Prophylaxis Intervention: heparin Lines/Catheters IV Catheter Type (from Nrs): Peripheral IV Urinary Cath still in place: No Assessment/Plan Chief Complaint/Hosp Course Assessment and plan 1. 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 Patient does have history of bypass on area that had thrombosed. Continue on heparin drip. 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 Also noted with right lower extremity gangrene. Tentative plan for angiogram of right lower extremity. Follow-up with vascular surgeon recommendations. Continue with analgesics. wound care per vascular surgeon. Continue the recommendations. Pain management physician consulted for further help 2. ESRD on dialysis. Continue on HD. Follow-up with nephrology recommendations 3. Hypertension. Continue on antihypertensives and adjust needed. Stable 4. Anemia of chronic disease. H&H stable. Monitor for now. 5. History of diabetes. Continue on insulin regimen. Will adjust as needed 6. CAD. Continue on antiplatelet therapy Disposition and plan: Pain management physician to follow. Tentative plan for angiogram of right lower extremity. Continue with leasing sales consultant recommendation Discussed on of care with Dr. Cha Problems: Subjective 24 Hr Interval Summary Free Text/Dictation Still reports left lower extremity pain. Exam/Review of Systems Vital Signs Vitals Vital Signs Date Time Temp Pulse Resp B/P Pulse Ox O2 Delivery O2 Flow Rate FiO2 10/30/16 04:10 98.6 80 20 135/68 95 Room Air 10/28/16 04:00 2.0 Intake and Output 10/29/16 10/29/16 10/30/16 15:00 23:00 07:00 Intake Total 1380 ml 240 ml Output Total 200 ml 50 ml Balance 1180 ml 190 ml Exam General: no s/s of distress Eyes: Pupils equal round Neck: no jvd seen Cardiac: regular rate Pulmonary: No coarse rhonchi or breathing auscultated GI: Abdomen soft nontender nondistended, bowel sounds active Extremities: Status post BKA of left lower extremity. Dressing in place. Skin: Scabs on necrotic appearance of right lower extremity Neurologic: Alert to person place and time and situation Results Result Diagram: 10/30/1651610/30/16516 Results 24 hrs Laboratory Tests Test 10/29/16 17:26 10/29/16 21:19 10/30/16 00:42 10/30/16 05:17 Bedside Glucose 126 145 119 White Blood Count 17.5 H Red Blood Count 3.46 L Hemoglobin 10.6 L Hematocrit 33.8 L Mean Corpuscular Volume 97.7 Mean Corpuscular Hemoglobin 30.6 Mean Corpuscular Hemoglobin Concent 31.4 L Red Cell Distribution Width 17.2 H Platelet Count 364 Mean Platelet Volume 11.3 H Neutrophils % 75.8 Lymphocytes % 12.2 L Monocytes % 10.2 Eosinophils % 0.5 Basophils % 0.3 Nucleated Red Blood Cells % 0.0 Neutrophils # 13.3 H Lymphocytes # 2.1 Monocytes # 1.8 H Eosinophils # 0.1 Basophils # 0.1 Nucleated Red Blood Cells # 0.0 Sodium Level 133 L Potassium Level 4.3 Chloride Level 95 L Carbon Dioxide Level 23 Anion Gap 19 H Blood Urea Nitrogen 50 H Creatinine 7.72 #H Glucose Level 76 Calcium Level 7.8 L Test 10/30/16 08:29 10/30/16 12:25 Bedside Glucose 75 134 Medications Medications Current Medications Metoprolol Tartrate (Lopressor) 25 mg BID PO Last administered on 10/29/16 21: 25; Admin Dose 25 MG; Start 10/18/16 at 19:21 Amlodipine Besylate (Norvasc) 10 mg DAILY PO Last administered on 10/29/16 09: 52; Admin Dose 10 MG; Start 10/19/16 at 09:00 Hydralazine HCl (Apresoline) 10 mg Q4H PRN IV SBP>150 mm Hg Last administered on 10/27/16 20:38; Admin Dose 10 MG; Start 10/18/16 at 20:00 Albuterol (Ventolin Hfa) 2 puff Q8 INH Last administered on 10/30/16 15:00; Admin Dose 2 PUFF; Start 10/18/16 at 22:30 Famotidine (Pepcid) 20 mg DAILY PO Last administered on 10/30/16 10:10; Admin Dose 20 MG; Start 10/19/16 at 09:00 Ondansetron HCl (Zofran Inj) 4 mg Q6H PRN IV NAUSEA AND/OR VOMITING; Start at 22:30 Acetaminophen (Tylenol Tab) 650 mg Q6H PRN PO PAIN LEVEL 1-3 OR FEVER; Start at 22:30 Docusate Sodium (Colace) 100 mg Q12H PRN PO CONSTIPATION Last administered on 20:47; Admin Dose 100 MG; Start 10/18/16 at 22:30 Bisacodyl (Dulcolax Supp) 10 mg DAILY PRN [place] CONSTIPATION Last administered on 10/26/16 07:04; Admin Dose 10 MG; Start 10/18/16 at 22:30 Diagnostic Test (Pha) (Accucheck) 1 ea 02 XX Last administered on 10/27/16 02: 31; Admin Dose 1 EA; Start 10/19/16 at 02:00 Miscellaneous Information 1 ea NOTE XX ; Start 10/18/16 at 22:30 Glucose (Glutose) 15 gm Q15M PRN PO DECREASED GLUCOSE; Start 10/18/16 at 22:30 Glucose (Glutose) 22.5 gm Q15M PRN PO DECREASED GLUCOSE; Start 10/18/16 at 22: 30 Dextrose (D50w Syringe) 25 ml Q15M PRN IV DECREASED GLUCOSE; Start 10/18/16 at 22:30 Dextrose (D50w Syringe) 50 ml Q15M PRN IV DECREASED GLUCOSE Last administered on 10/27/16 09:35; Admin Dose 50 ML; Start 10/18/16 at 22:30 Glucagon (Glucagen) 1 mg Q15M PRN IM DECREASED GLUCOSE; Start 10/18/16 at 22:30 Glucose (Glutose) 15 gm Q15M PRN BUCCAL DECREASED GLUCOSE; Start 10/18/16 at 22 :30 Linezolid (Zyvox) 600 mg BID PO Last administered on 10/30/16 10:10; Admin Dose 600 MG; Start 10/20/16 at 12:15 Aspirin (Halfprin) 81 mg DAILY PO Last administered on 10/30/16 10:10; Admin Dose 81 MG; Start 10/22/16 at 09:00 Lactobacillus Acidoph/Bulgaricus (Floranex) 1 tab BID PO Last administered on 10:10; Admin Dose 1 TAB; Start 10/22/16 at 21:00 Senna/Docusate Sodium (Senokot-S) 2 tab HS PO Last administered on 10/29/16 21 :23; Admin Dose 2 TAB; Start 10/22/16 at 21:00 Lactulose (Enulose) 20 gm TID PRN PO CONSTIPATION Last administered on 13:32; Admin Dose 20 GM; Start 10/23/16 at 17:30 Clonidine HCl 1 patch 1 patch Q7D TRANSDERM Last administered on 10/24/16 09: 04; Admin Dose 1 PATCH; Start 10/24/16 at 09:00 Meropenem (Merrem 500 Mg/ 100 ml (Pmx)) 100 ml @ 200 mls/hr Q24H IVPB Last administered on 10/29/16 21:23; Admin Dose 200 MLS/HR; Start 10/26/16 at 21:00 Sodium Biphosphate/ Sodium Phosphate (Fleet Enema) 133 ml DAILY PRN [place] CONSTIPATION Last administered on 10/26/16 18:33; Admin Dose 133 ML; Start at 18:00 Hydromorphone HCl (Dilaudid MANAGER FORENSIC) 0 MG/HR CONTINUOUS RATE ... MANAGER FORENSIC IV Last administered on 10/29/16 20:45; Admin Dose 6 MG; Start 10/27/16 at 12:30 Heparin Sodium (Porcine) (Heparin (5000 Units/0.5 ml)) 5,000 unit BID SC Last administered on 10/30/16 10:47; Admin Dose 5,000 UNIT; Start 10/27/16 at 12:30 Naloxone HCl (Narcan) 0.2 mg Q2M PRN IV RR 8 BREATHS/MIN OR LESS; Start at 13:00 Oxycodone/ Acetaminophen (Percocet (5/ 325)) 2 tab Q4H PRN PO PAIN Last administered on 10/30/16 07:23; Admin Dose 2 TAB; Start 10/28/16 at 15:00 Insulin Glargine (Lantus) 4 unit DAILY@20 SC Last administered on 10/29/16 21: 29; Admin Dose 4 UNIT; Start 10/29/16 at 20:00 Benazepril HCl (Lotensin) 10 mg BID PO Last administered on 10/29/16 21:31; Admin Dose 10 MG; Start 10/29/16 at 21:00 GERHARD ALVES Oct 30, 2016 15:40
[2016-10-30] MEDS: ACETAMINOPHEN 325 MG TAB PO PRN (16:33)
--- NOTE | 2016-10-30 19:43 | CONS ---
Date/Time of Note Date/Time of Note DATE: 10/30/16 TIME: 19:41 Assessment/Plan Assessment/Plan Chief Complaint/Hosp Course SUBJECTIVE: Spiked fever and was shivering during HD, nad MICROBIOLOGY: Blood cultures from hemodialysis catheter remain negative. Left lower extremity wound culture growing E coli ESBL ANTIMICROBIALS: 1. Zyvox. 2. Merrem. PHYSICAL EXAMINATION: GENERAL: This is well-developed, fragile, elderly man who is awake, in no distress. HEENT: Head atraumatic, normocephalic. Sclerae anicteric. Buccal mucosa dry. NECK: Supple. CHEST: Rise symmetrical. Breath sounds clear. HEART: S1, S2. ABDOMEN: Soft, bowel tones present. EXTREMITIES: Left lower extremity dressing intact. The patient has an immobilizer. ASSESSMENT: 1. Sepsis. 2. Right lower extremity gangrene. 3. 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 4. End-stage renal disease, hemodialysis dependent==>? infected. 5. Diabetes. 6. Healthcare-acquired pneumonia, improving. PLAN: Bld cx from permacath ordered, continue abx, consider line change given recurrent fevers and chills during HD, f/u vascular rec-s DW staff/HD RN Georgi Problems: Consultation Date/Type/Reason Admit Date/Time Oct 18, 2016 at 16:52 Type of Consultation: id Referring Provider: OZZIE HERRERA MD Exam/Review of Systems Vital Signs Vitals Vital Signs Date Time Temp Pulse Resp B/P Pulse Ox O2 Delivery O2 Flow Rate FiO2 10/30/16 17:30 96 10/30/16 14:30 20 10/30/16 04:10 98.6 135/68 95 Room Air 10/28/16 04:00 2.0 Intake and Output 10/29/16 10/29/16 10/30/16 15:00 23:00 07:00 Intake Total 1380 ml 240 ml Output Total 200 ml 50 ml Balance 1180 ml 190 ml Results Result Diagram: 10/30/1651610/30/16516 Results 24 hrs Laboratory Tests Test 10/29/16 21:19 10/30/16 00:42 10/30/16 05:17 10/30/16 08:29 Bedside Glucose 145 119 75 White Blood Count 17.5 H Red Blood Count 3.46 L Hemoglobin 10.6 L Hematocrit 33.8 L Mean Corpuscular Volume 97.7 Mean Corpuscular Hemoglobin 30.6 Mean Corpuscular Hemoglobin Concent 31.4 L Red Cell Distribution Width 17.2 H Platelet Count 364 Mean Platelet Volume 11.3 H Neutrophils % 75.8 Lymphocytes % 12.2 L Monocytes % 10.2 Eosinophils % 0.5 Basophils % 0.3 Nucleated Red Blood Cells % 0.0 Neutrophils # 13.3 H Lymphocytes # 2.1 Monocytes # 1.8 H Eosinophils # 0.1 Basophils # 0.1 Nucleated Red Blood Cells # 0.0 Sodium Level 133 L Potassium Level 4.3 Chloride Level 95 L Carbon Dioxide Level 23 Anion Gap 19 H Blood Urea Nitrogen 50 H Creatinine 7.72 #H Glucose Level 76 Calcium Level 7.8 L Test 10/30/16 12:25 10/30/16 17:30 Bedside Glucose 134 159 Medications Medications Current Medications Metoprolol Tartrate (Lopressor) 25 mg BID PO Last administered on 10/29/16 21: 25; Admin Dose 25 MG; Start 10/18/16 at 19:21 Amlodipine Besylate (Norvasc) 10 mg DAILY PO Last administered on 10/29/16 09: 52; Admin Dose 10 MG; Start 10/19/16 at 09:00 Hydralazine HCl (Apresoline) 10 mg Q4H PRN IV SBP>150 mm Hg Last administered on 10/27/16 20:38; Admin Dose 10 MG; Start 10/18/16 at 20:00 Albuterol (Ventolin Hfa) 2 puff Q8 INH Last administered on 10/30/16 15:00; Admin Dose 2 PUFF; Start 10/18/16 at 22:30 Famotidine (Pepcid) 20 mg DAILY PO Last administered on 10/30/16 10:10; Admin Dose 20 MG; Start 10/19/16 at 09:00 Ondansetron HCl (Zofran Inj) 4 mg Q6H PRN IV NAUSEA AND/OR VOMITING; Start at 22:30 Acetaminophen (Tylenol Tab) 650 mg Q6H PRN PO PAIN LEVEL 1-3 OR FEVER Last administered on 10/30/16 16:33; Admin Dose 650 MG; Start 10/18/16 at 22:30 Docusate Sodium (Colace) 100 mg Q12H PRN PO CONSTIPATION Last administered on 20:47; Admin Dose 100 MG; Start 10/18/16 at 22:30 Bisacodyl (Dulcolax Supp) 10 mg DAILY PRN [place] CONSTIPATION Last administered on 10/26/16 07:04; Admin Dose 10 MG; Start 10/18/16 at 22:30 Diagnostic Test (Pha) (Accucheck) 1 ea 02 XX Last administered on 10/27/16 02: 31; Admin Dose 1 EA; Start 10/19/16 at 02:00 Miscellaneous Information 1 ea NOTE XX ; Start 10/18/16 at 22:30 Glucose (Glutose) 15 gm Q15M PRN PO DECREASED GLUCOSE; Start 10/18/16 at 22:30 Glucose (Glutose) 22.5 gm Q15M PRN PO DECREASED GLUCOSE; Start 10/18/16 at 22: 30 Dextrose (D50w Syringe) 25 ml Q15M PRN IV DECREASED GLUCOSE; Start 10/18/16 at 22:30 Dextrose (D50w Syringe) 50 ml Q15M PRN IV DECREASED GLUCOSE Last administered on 10/27/16 09:35; Admin Dose 50 ML; Start 10/18/16 at 22:30 Glucagon (Glucagen) 1 mg Q15M PRN IM DECREASED GLUCOSE; Start 10/18/16 at 22:30 Glucose (Glutose) 15 gm Q15M PRN BUCCAL DECREASED GLUCOSE; Start 10/18/16 at 22 :30 Linezolid (Zyvox) 600 mg BID PO Last administered on 10/30/16 10:10; Admin Dose 600 MG; Start 10/20/16 at 12:15 Aspirin (Halfprin) 81 mg DAILY PO Last administered on 10/30/16 10:10; Admin Dose 81 MG; Start 10/22/16 at 09:00 Lactobacillus Acidoph/Bulgaricus (Floranex) 1 tab BID PO Last administered on 10:10; Admin Dose 1 TAB; Start 10/22/16 at 21:00 Senna/Docusate Sodium (Senokot-S) 2 tab HS PO Last administered on 10/29/16 21 :23; Admin Dose 2 TAB; Start 10/22/16 at 21:00 Lactulose (Enulose) 20 gm TID PRN PO CONSTIPATION Last administered on 13:32; Admin Dose 20 GM; Start 10/23/16 at 17:30 Clonidine HCl 1 patch 1 patch Q7D TRANSDERM Last administered on 10/24/16 09: 04; Admin Dose 1 PATCH; Start 10/24/16 at 09:00 Meropenem (Merrem 500 Mg/ 100 ml (Pmx)) 100 ml @ 200 mls/hr Q24H IVPB Last administered on 10/29/16 21:23; Admin Dose 200 MLS/HR; Start 10/26/16 at 21:00 Sodium Biphosphate/ Sodium Phosphate (Fleet Enema) 133 ml DAILY PRN [place] CONSTIPATION Last administered on 10/26/16 18:33; Admin Dose 133 ML; Start at 18:00 Hydromorphone HCl (Dilaudid LEATHER NOVELTY [employer]S CUTTER) 0 MG/HR CONTINUOUS RATE ... LEATHER [employer] C[employer]TER IV Last administered on 10/29/16 20:45; Admin Dose 6 MG; Start 10/27/16 at 12:30 Heparin Sodium (Porcine) (Heparin (5000 Units/0.5 ml)) 5,000 unit BID SC Last administered on 10/30/16 10:47; Admin Dose 5,000 UNIT; Start 10/27/16 at 12:30 Naloxone HCl (Narcan) 0.2 mg Q2M PRN IV RR 8 BREATHS/MIN OR LESS; Start at 13:00 Oxycodone/ Acetaminophen (Percocet (5/ 325)) 2 tab Q4H PRN PO PAIN Last administered on 10/30/16 07:23; Admin Dose 2 TAB; Start 10/28/16 at 15:00 Insulin Glargine (Lantus) 4 unit DAILY@20 SC Last administered on 10/29/16 21: 29; Admin Dose 4 UNIT; Start 10/29/16 at 20:00 Benazepril HCl (Lotensin) 10 mg BID PO Last administered on 10/29/16 21:31; Admin Dose 10 MG; Start 10/29/16 at 21:00 DARLENE MCKEE NP Oct 30, 2016 19:43
[2016-10-30] MEDS: MEROPENEM 500 MG/100 ML (PMX) 100 ML IVPB SCH (20:27)
[2016-10-30] MEDS: SENNA/DOCUSATE NA (8.6MG/50MG) TAB PO SCH (20:27)
[2016-10-30] MEDS: INSULIN GLARGINE [LANtus] 3 ML PEN SC SCH (20:32)
--- NOTE | 2016-10-30 21:44 | CONS ---
Date/Time of Note Date/Time of Note DATE: 10/30/16 TIME: 21:42 Assessment/Plan Assessment/Plan Additional Assessment/Plan 1. 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 Failed redo bypass.post-surgical intervention with thrombectomy, exploration of the above knee popliteal graft and debridement of left lower extremity wound with wound VAC application on 10/19/2016. 2. Severe stenosis of the right distal superficial femoral artery and occluded right posterior tibial artery. 3. End-stage renal disease on hemodialysis Tuesday, , Tuesday. 4. Accelerated hypertension. 5. Hyperlipidemia. 6. History of hypertension with peripheral arterial disease. 7. History of peripheral arterial disease status post left lower extremity bypass in September 2016. PLAN: s/p HD today 2.5 L removed, Blood cx negative, will use different type of filter during HD next time to avoid any allertic Status post-surgical intervention with thrombectomy, exploration of the above knee popliteal graft and debridement of left lower extremity wound with wound VAC application on 10/19/2016. will follow up Consultation Date/Type/Reason Admit Date/Time Oct 18, 2016 at 16:52 Initial Consult Date 10/18/2016 Type of Consultation: NEPHROLOGY Referring Provider: OZZIE HERRERA MD 24 HR Interval Summary Free Text/Dictation s/p HD 2.5 L removed, BP stable Exam/Review of Systems Vital Signs Vitals Vital Signs Date Time Temp Pulse Resp B/P Pulse Ox O2 Delivery O2 Flow Rate FiO2 10/30/16 20:09 100.0 103 20 180/70 96 10/30/16 04:10 Room Air 10/28/16 04:00 2.0 Intake and Output 10/29/16 10/29/16 10/30/16 15:00 23:00 07:00 Intake Total 1380 ml 240 ml Output Total 200 ml 50 ml Balance 1180 ml 190 ml Exam GENERAL: This is well-developed, fragile, elderly man who is awake, in no distress. HEENT: Head atraumatic, normocephalic. Sclerae anicteric. Buccal mucosa dry. NECK: Supple. CHEST: Rise symmetrical. Breath sounds clear. HEART: S1, S2. ABDOMEN: Soft, bowel tones present. EXTREMITIES: Left lower extremity dressing intact. The patient has an immobilizer. Results Result Diagram: 10/30/1651610/30/16516 Results 24 hrs Laboratory Tests Test 10/30/16 00:42 10/30/16 05:17 10/30/16 08:29 10/30/16 12:25 Bedside Glucose 119 75 134 White Blood Count 17.5 H Red Blood Count 3.46 L Hemoglobin 10.6 L Hematocrit 33.8 L Mean Corpuscular Volume 97.7 Mean Corpuscular Hemoglobin 30.6 Mean Corpuscular Hemoglobin Concent 31.4 L Red Cell Distribution Width 17.2 H Platelet Count 364 Mean Platelet Volume 11.3 H Neutrophils % 75.8 Lymphocytes % 12.2 L Monocytes % 10.2 Eosinophils % 0.5 Basophils % 0.3 Nucleated Red Blood Cells % 0.0 Neutrophils # 13.3 H Lymphocytes # 2.1 Monocytes # 1.8 H Eosinophils # 0.1 Basophils # 0.1 Nucleated Red Blood Cells # 0.0 Sodium Level 133 L Potassium Level 4.3 Chloride Level 95 L Carbon Dioxide Level 23 Anion Gap 19 H Blood Urea Nitrogen 50 H Creatinine 7.72 #H Glucose Level 76 Calcium Level 7.8 L Test 10/30/16 17:30 10/30/16 20:02 Bedside Glucose 159 158 Medications Medications Current Medications Metoprolol Tartrate (Lopressor) 25 mg BID PO Last administered on 10/30/16 20: 29; Admin Dose 25 MG; Start 10/18/16 at 19:21 Amlodipine Besylate (Norvasc) 10 mg DAILY PO Last administered on 10/29/16 09: 52; Admin Dose 10 MG; Start 10/19/16 at 09:00 Hydralazine HCl (Apresoline) 10 mg Q4H PRN IV SBP>150 mm Hg Last administered on 10/27/16 20:38; Admin Dose 10 MG; Start 10/18/16 at 20:00 Albuterol (Ventolin Hfa) 2 puff Q8 INH Last administered on 10/30/16 15:00; Admin Dose 2 PUFF; Start 10/18/16 at 22:30 Famotidine (Pepcid) 20 mg DAILY PO Last administered on 10/30/16 10:10; Admin Dose 20 MG; Start 10/19/16 at 09:00 Ondansetron HCl (Zofran Inj) 4 mg Q6H PRN IV NAUSEA AND/OR VOMITING; Start at 22:30 Acetaminophen (Tylenol Tab) 650 mg Q6H PRN PO PAIN LEVEL 1-3 OR FEVER Last administered on 10/30/16 16:33; Admin Dose 650 MG; Start 10/18/16 at 22:30 Docusate Sodium (Colace) 100 mg Q12H PRN PO CONSTIPATION Last administered on 20:47; Admin Dose 100 MG; Start 10/18/16 at 22:30 Bisacodyl (Dulcolax Supp) 10 mg DAILY PRN [place] CONSTIPATION Last administered on 10/26/16 07:04; Admin Dose 10 MG; Start 10/18/16 at 22:30 Diagnostic Test (Pha) (Accucheck) 1 ea 02 XX Last administered on 10/27/16 02: 31; Admin Dose 1 EA; Start 10/19/16 at 02:00 Miscellaneous Information 1 ea NOTE XX ; Start 10/18/16 at 22:30 Glucose (Glutose) 15 gm Q15M PRN PO DECREASED GLUCOSE; Start 10/18/16 at 22:30 Glucose (Glutose) 22.5 gm Q15M PRN PO DECREASED GLUCOSE; Start 10/18/16 at 22: 30 Dextrose (D50w Syringe) 25 ml Q15M PRN IV DECREASED GLUCOSE; Start 10/18/16 at 22:30 Dextrose (D50w Syringe) 50 ml Q15M PRN IV DECREASED GLUCOSE Last administered on 10/27/16 09:35; Admin Dose 50 ML; Start 10/18/16 at 22:30 Glucagon (Glucagen) 1 mg Q15M PRN IM DECREASED GLUCOSE; Start 10/18/16 at 22:30 Glucose (Glutose) 15 gm Q15M PRN BUCCAL DECREASED GLUCOSE; Start 10/18/16 at 22 :30 Linezolid (Zyvox) 600 mg BID PO Last administered on 10/30/16 20:28; Admin Dose 600 MG; Start 10/20/16 at 12:15 Aspirin (Halfprin) 81 mg DAILY PO Last administered on 10/30/16 10:10; Admin Dose 81 MG; Start 10/22/16 at 09:00 Lactobacillus Acidoph/Bulgaricus (Floranex) 1 tab BID PO Last administered on 20:28; Admin Dose 1 TAB; Start 10/22/16 at 21:00 Senna/Docusate Sodium (Senokot-S) 2 tab HS PO Last administered on 10/30/16 20: 27; Admin Dose 2 TAB; Start 10/22/16 at 21:00 Lactulose (Enulose) 20 gm TID PRN PO CONSTIPATION Last administered on 13:32; Admin Dose 20 GM; Start 10/23/16 at 17:30 Clonidine HCl 1 patch 1 patch Q7D TRANSDERM Last administered on 10/24/16 09: 04; Admin Dose 1 PATCH; Start 10/24/16 at 09:00 Meropenem (Merrem 500 Mg/ 100 ml (Pmx)) 100 ml @ 200 mls/hr Q24H IVPB Last administered on 10/30/16 20:27; Admin Dose 200 MLS/HR; Start 10/26/16 at 21:00 Sodium Biphosphate/ Sodium Phosphate (Fleet Enema) 133 ml DAILY PRN [place] CONSTIPATION Last administered on 10/26/16 18:33; Admin Dose 133 ML; Start at 18:00 Hydromorphone HCl (Dilaudid SMALL ANIMAL CARETAKER) 0 MG/HR CONTINUOUS RATE ... SMALL ANIMAL CARETAKER IV Last administered on 10/29/16 20:45; Admin Dose 6 MG; Start 10/27/16 at 12:30 Heparin Sodium (Porcine) (Heparin (5000 Units/0.5 ml)) 5,000 unit BID SC Last administered on 10/30/16 20:34; Admin Dose 5,000 UNIT; Start 10/27/16 at 12:30 Naloxone HCl (Narcan) 0.2 mg Q2M PRN IV RR 8 BREATHS/MIN OR LESS; Start at 13:00 Oxycodone/ Acetaminophen (Percocet (5/ 325)) 2 tab Q4H PRN PO PAIN Last administered on 10/30/16 19:55; Admin Dose 2 TAB; Start 10/28/16 at 15:00 Insulin Glargine (Lantus) 4 unit DAILY@20 SC Last administered on 10/30/16 20: 32; Admin Dose 4 UNIT; Start 10/29/16 at 20:00 Benazepril HCl (Lotensin) 10 mg BID PO Last administered on 10/30/16t 20:29; Admin Dose 10 MG; Start 10/29/16 at 21:00 LISA MERRITT MD Oct 30, 2016 21:44
[2016-10-31] VITALS (8 sets, daily range): BP systolic 114–141; BP diastolic 50–78; PULSE 74–79; RESP 16–20
[2016-10-31] MEDS: ACCU-CHEK XX SCH (02:00)
[2016-10-31] MEDS: ACETAMINOPHEN 325 MG TAB PO PRN ×2 (04:09→20:22)
[2016-10-31 06:15] LABS: ADD SCAN DIFF NO
[2016-10-31] MEDS: ALBUTEROL HFA 8 GM INHALER INH SCH ×3 (06:17→22:03)
[2016-10-31 06:35] LABS: ABNORMAL IP MESSAGE 1; BASOPHIL # 0.1 10^3/ul (0.0-0.1); BASOPHILS % 0.2 % (0.0-2.0); HEMATOCRIT 31.1 % (42.0-52.0); HEMOGLOBIN 10.1 g/dl (14.0-18.0); LYMPHOCYTES # 1.8 10^3/ul (0.8-2.9); LYMPHOCYTES % 7.6 % (15.0-51.0); MEAN CORPUSCULAR HEMOGLOBIN 31.3 pg (29.0-33.0); MEAN CORPUSCULAR HGB CONC 32.5 g/dl (32.0-37.0); MEAN CORPUSCULAR VOLUME 96.3 fl (82.0-101.0); MEAN PLATELET VOLUME 11.4 fl (7.4-10.4); MONOCYTE # 2.5 10^3/ul (0.3-0.9); MONOCYTES % 10.4 % (0.0-11.0); NEUTROPHIL # 19.4 10^3/ul (1.6-7.5); NEUTROPHILS % 80.8 % (39.0-77.0); PLATELET COUNT 364 10^3/UL (140-415); RED BLOOD COUNT 3.23 10^6/ul (4.70-6.10); RED CELL DISTRIBUTION WIDTH 17.2 % (11.5-14.5)
[2016-10-31 06:38] LABS: POTASSIUM 3.9 mmol/L (3.5-5.1)
[2016-10-31 06:41] LABS: CREATININE 6.79 mg/dl (0.61-1.24)
[2016-10-31 06:42] LABS: CALCIUM 7.7 mg/dl (8.4-10.2)
[2016-10-31] MEDS: INSULIN ASPART [NOVOLOG] 3 ML PEN SC SCH ×4 (08:15→20:22)
[2016-10-31] MEDS: LACTOBACILLUS CHEW TAB PO SCH ×2 (08:52→20:21)
[2016-10-31] MEDS: ASPIRIN (EC) 81 MG TAB PO SCH (08:52)
[2016-10-31] MEDS: ZYVOX 600 MG TAB PO SCH ×2 (08:52→20:22)
[2016-10-31] MEDS: AMLODIPINE 10 MG TAB PO SCH (08:52)
[2016-10-31] MEDS: FAMOTIDINE 20 MG TAB PO SCH (08:52)
[2016-10-31] MEDS: METOPROLOL 25 MG TAB PO SCH ×2 (08:53→20:22)
[2016-10-31] MEDS: BENAZEPRIL 10 MG TAB PO SCH ×2 (08:53→20:22)
[2016-10-31] MEDS: CLONIDINE 0.1 MG/24 HR PATCH TRANSDERM SCH (08:54)
[2016-10-31] MEDS: HEPARIN 5,000 UNIT/0.5 ML VIAL SC SCH ×2 (09:02→20:37)
--- NOTE | 2016-10-31 11:30 | CONS ---
Date/Time of Note Date/Time of Note DATE: 10/31/16 TIME: 11:04 Assessment/Plan Assessment/Plan Additional Assessment/Plan 1. 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 Failed redo bypass.post-surgical intervention with thrombectomy, exploration of the above knee popliteal graft and debridement of left lower extremity wound with wound VAC application on 10/19/2016. 2. Severe stenosis of the right distal superficial femoral artery and occluded right posterior tibial artery. 3. End-stage renal disease on hemodialysis Tuesday, , Tuesday. 4. Accelerated hypertension. 5. Hyperlipidemia. 6. History of hypertension with peripheral arterial disease. 7. History of peripheral arterial disease status post left lower extremity bypass in September 2016. PLAN: s/p HD today 2.5 L removed, Blood cx negative, will use different type of filter during HD next time to avoid any allertic Status post-surgical intervention with thrombectomy, exploration of the above knee popliteal graft and debridement of left lower extremity wound with wound VAC application on 10/19/2016. will follow up. Total time spent 30 minutes on this patient's follow up progress note, communicating with Nursing Staff, and discussing with MD. Further clinical recommendations depend upon patient's clinical course. Adi Paige. Consultation Date/Type/Reason Admit Date/Time Oct 18, 2016 at 16:52 Initial Consult Date Type of Consultation: NEPHROLOGY Referring Provider: OZZIE HERRERA MD 24 HR Interval Summary Constitutional: improved, other (NAD, Dw staff) Detailed Summary ENT: no complaints Respiratory: no complaints Exam/Review of Systems Vital Signs Vitals Vital Signs Date Time Temp Pulse Resp B/P Pulse Ox O2 Delivery O2 Flow Rate FiO2 10/31/16 08:15 100.8 80 16 136/60 98 10/31/16 04:00 Room Air 10/28/16 04:00 2.0 Intake and Output 10/30/16 10/30/16 10/31/16 15:00 23:00 07:00 Intake Total 600 ml 260 ml Output Total 3000 ml 0 ml Balance -2400 ml 260 ml Exam Constitutional: alert, oriented Psych: nl mood/affect Head: atraumatic Eyes: EOMI, PERRL, nl sclera ENMT: nl external ears & nose Respiratory: clear to auscultation Cardiovascular: nl pulses Gastrointestinal: non-tender, soft Musculoskeletal: other Extremities: normal pulses Neurological: nl mental status, nl speech Skin: other Lymph: nontender Results Result Diagram: 10/31/16 0530 10/31/16 0530 Results 24 hrs Laboratory Tests Test 10/30/16 12:25 10/30/16 17:30 10/30/16 20:02 10/31/16 05:30 Bedside Glucose 134 159 158 White Blood Count 24.0 #H Red Blood Count 3.23 L Hemoglobin 10.1 L Hematocrit 31.1 L Mean Corpuscular Volume 96.3 Mean Corpuscular Hemoglobin 31.3 Mean Corpuscular Hemoglobin Concent 32.5 Red Cell Distribution Width 17.2 H Platelet Count 364 Mean Platelet Volume 11.4 H Neutrophils % 80.8 H Lymphocytes % 7.6 L Monocytes % 10.4 Eosinophils % 0.0 Basophils % 0.2 Nucleated Red Blood Cells % 0.0 Neutrophils # 19.4 H Lymphocytes # 1.8 Monocytes # 2.5 H Eosinophils # 0.0 Basophils # 0.1 Nucleated Red Blood Cells # 0.0 Sodium Level 136 Potassium Level 3.9 Chloride Level 93 L Carbon Dioxide Level 25 Anion Gap 22 H Blood Urea Nitrogen 43 H Creatinine 6.79 H Glucose Level 83 Calcium Level 7.7 L Test 10/31/16 08:50 Bedside Glucose 113 Medications Medications Current Medications Metoprolol Tartrate (Lopressor) 25 mg BID PO Last administered on 10/31/16 08: 53; Admin Dose 25 MG; Start 10/18/16 at 19:21 Amlodipine Besylate (Norvasc) 10 mg DAILY PO Last administered on 10/31/16 08: 52; Admin Dose 10 MG; Start 10/19/16 at 09:00 Hydralazine HCl (Apresoline) 10 mg Q4H PRN IV SBP>150 mm Hg Last administered on 10/27/16 20:38; Admin Dose 10 MG; Start 10/18/16 at 20:00 Albuterol (Ventolin Hfa) 2 puff Q8 INH Last administered on 10/31/16 06:17; Admin Dose 2 PUFF; Start 10/18/16 at 22:30 Famotidine (Pepcid) 20 mg DAILY PO Last administered on 10/31/16 08:52; Admin Dose 20 MG; Start 10/19/16 at 09:00 Ondansetron HCl (Zofran Inj) 4 mg Q6H PRN IV NAUSEA AND/OR VOMITING; Start at 22:30 Acetaminophen (Tylenol Tab) 650 mg Q6H PRN PO PAIN LEVEL 1-3 OR FEVER Last administered on 10/31/16 04:09; Admin Dose 650 MG; Start 10/18/16 at 22:30 Docusate Sodium (Colace) 100 mg Q12H PRN PO CONSTIPATION Last administered on 20:47; Admin Dose 100 MG; Start 10/18/16 at 22:30 Bisacodyl (Dulcolax Supp) 10 mg DAILY PRN [place] CONSTIPATION Last administered on 10/26/16 07:04; Admin Dose 10 MG; Start 10/18/16 at 22:30 Diagnostic Test (Pha) (Accucheck) 1 ea 02 XX Last administered on 10/27/16 02: 31; Admin Dose 1 EA; Start 10/19/16 at 02:00 Miscellaneous Information 1 ea NOTE XX ; Start 10/18/16 at 22:30 Glucose (Glutose) 15 gm Q15M PRN PO DECREASED GLUCOSE; Start 10/18/16 at 22:30 Glucose (Glutose) 22.5 gm Q15M PRN PO DECREASED GLUCOSE; Start 10/18/16 at 22: 30 Dextrose (D50w Syringe) 25 ml Q15M PRN IV DECREASED GLUCOSE; Start 10/18/16 at 22:30 Dextrose (D50w Syringe) 50 ml Q15M PRN IV DECREASED GLUCOSE Last administered on 10/27/16 09:35; Admin Dose 50 ML; Start 10/18/16 at 22:30 Glucagon (Glucagen) 1 mg Q15M PRN IM DECREASED GLUCOSE; Start 10/18/16 at 22:30 Glucose (Glutose) 15 gm Q15M PRN BUCCAL DECREASED GLUCOSE; Start 10/18/16 at 22 :30 Linezolid (Zyvox) 600 mg BID PO Last administered on 10/31/16 08:52; Admin Dose 600 MG; Start 10/20/16 at 12:15 Aspirin (Halfprin) 81 mg DAILY PO Last administered on 10/31/16 08:52; Admin Dose 81 MG; Start 10/22/16 at 09:00 Lactobacillus Acidoph/Bulgaricus (Floranex) 1 tab BID PO Last administered on 08:52; Admin Dose 1 TAB; Start 10/22/16 at 21:00 Senna/Docusate Sodium (Senokot-S) 2 tab HS PO Last administered on 10/30/16 20: 27; Admin Dose 2 TAB; Start 10/22/16 at 21:00 Lactulose (Enulose) 20 gm TID PRN PO CONSTIPATION Last administered on 13:32; Admin Dose 20 GM; Start 10/23/16 at 17:30 Clonidine HCl 1 patch 1 patch Q7D TRANSDERM Last administered on 10/31/16 08:54 ; Admin Dose 1 PATCH; Start 10/24/16 at 09:00 Meropenem (Merrem 500 Mg/ 100 ml (Pmx)) 100 ml @ 200 mls/hr Q24H IVPB Last administered on 10/30/16 20:27; Admin Dose 200 MLS/HR; Start 10/26/16 at 21:00 Sodium Biphosphate/ Sodium Phosphate (Fleet Enema) 133 ml DAILY PRN [place] CONSTIPATION Last administered on 10/26/16 18:33; Admin Dose 133 ML; Start at 18:00 Hydromorphone HCl (Dilaudid SIEBEL ARCHITECT) 0 MG/HR CONTINUOUS RATE ... SIEBEL ARCHITECT IV Last administered on 10/29/16 20:45; Admin Dose 6 MG; Start 10/27/16 at 12:30 Heparin Sodium (Porcine) (Heparin (5000 Units/0.5 ml)) 5,000 unit BID SC Last administered on 10/31/16 09:02; Admin Dose 5,000 UNIT; Start 10/27/16 at 12:30 Naloxone HCl (Narcan) 0.2 mg Q2M PRN IV RR 8 BREATHS/MIN OR LESS; Start at 13:00 Oxycodone/ Acetaminophen (Percocet (5/ 325)) 2 tab Q4H PRN PO PAIN Last administered on 10/30/16 19:55; Admin Dose 2 TAB; Start 10/28/16 at 15:00 Insulin Glargine (Lantus) 4 unit DAILY@20 SC Last administered on 10/30/16 20: 32; Admin Dose 4 UNIT; Start 10/29/16 at 20:00 Benazepril HCl (Lotensin) 10 mg BID PO Last administered on 10/31/16 08:53; Admin Dose 10 MG; Start 10/29/16 at 21:00 CHERELLE TY Oct 31, 2016 11:14
--- NOTE | 2016-10-31 11:34 | PN ---
Date/Time of Note Date/Time of Note DATE: 10/31/16 TIME: 11:31 Assessment/Plan VTE Prophylaxis VTE Prophylaxis Intervention: heparin Lines/Catheters IV Catheter Type (from Nrsg): Peripheral IV Urinary Cath still in place: No Assessment/Plan Chief Complaint/Hosp Course Assessment and plan 1. 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 Patient does have history of bypass on area that had thrombosed. Continue on heparin drip. 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 Also noted with right lower extremity gangrene. Tentative plan for angiogram of right lower extremity. Follow-up with vascular surgeon recommendations. Continue with analgesics. wound care per vascular surgeon. Continue the recommendations. Pain management physician consulted for further assistance. Await recommendations. cont with abx per ID ( ESBL in wound) 2. ESRD on dialysis. Continue on HD. Follow-up with nephrology recommendations 3. Hypertension. Continue on antihypertensives and adjust needed. Stable 4. Anemia of chronic disease. H&H stable. Monitor for now. 5. History of diabetes. Continue on insulin regimen. Will adjust as needed 6. CAD. Continue on antiplatelet therapy Disposition and plan:. Tentative plan for angiogram of right lower extremity. Continue with sediment remediation consultant recommendations. cont with analgesics Discussed on of care with Dr. Cha Problems: Subjective 24 Hr Interval Summary Free Text/Dictation reports better pain control at this time Exam/Review of Systems Vital Signs Vitals Vital Signs Date Time Temp Pulse Resp B/P Pulse Ox O2 Delivery O2 Flow Rate FiO2 10/31/16 08:15 100.8 80 16 136/60 98 10/31/16 04:00 Room Air 10/28/16 04:00 2.0 Intake and Output 10/30/16 10/30/16 10/31/16 15:00 23:00 07:00 Intake Total 600 ml 260 ml Output Total 3000 ml 0 ml Balance -2400 ml 260 ml Exam General: no s/s of distress. comfortable at this time Eyes: Pupils equal round Neck: no jvd seen today Cardiac: regular rate Pulmonary: clear to auscultation GI: soft, ontender Extremities: Status post BKA of left lower extremity. Dressing in place. cdi Skin: Scabs on necrotic appearance of right lower extremity Neurologic: Alert to person place and time and situation Results Result Diagram: 10/31/16 0530 10/31/16 0530 Results 24 hrs Laboratory Tests Test 10/30/16 12:25 10/30/16 17:30 10/30/16 20:02 10/31/16 05:30 Bedside Glucose 134 159 158 White Blood Count 24.0 #H Red Blood Count 3.23 L Hemoglobin 10.1 L Hematocrit 31.1 L Mean Corpuscular Volume 96.3 Mean Corpuscular Hemoglobin 31.3 Mean Corpuscular Hemoglobin Concent 32.5 Red Cell Distribution Width 17.2 H Platelet Count 364 Mean Platelet Volume 11.4 H Neutrophils % 80.8 H Lymphocytes % 7.6 L Monocytes % 10.4 Eosinophils % 0.0 Basophils % 0.2 Nucleated Red Blood Cells % 0.0 Neutrophils # 19.4 H Lymphocytes # 1.8 Monocytes # 2.5 H Eosinophils # 0.0 Basophils # 0.1 Nucleated Red Blood Cells # 0.0 Sodium Level 136 Potassium Level 3.9 Chloride Level 93 L Carbon Dioxide Level 25 Anion Gap 22 H Blood Urea Nitrogen 43 H Creatinine 6.79 H Glucose Level 83 Calcium Level 7.7 L Test 10/31/16 08:50 Bedside Glucose 113 Medications Medications Current Medications Metoprolol Tartrate (Lopressor) 25 mg BID PO Last administered on 10/31/16 08: 53; Admin Dose 25 MG; Start 10/18/16 at 19:21 Amlodipine Besylate (Norvasc) 10 mg DAILY PO Last administered on 10/31/16 08: 52; Admin Dose 10 MG; Start 10/19/16 at 09:00 Hydralazine HCl (Apresoline) 10 mg Q4H PRN IV SBP>150 mm Hg Last administered on 10/27/16 20:38; Admin Dose 10 MG; Start 10/18/16 at 20:00 Albuterol (Ventolin Hfa) 2 puff Q8 INH Last administered on 10/31/16 06:17; Admin Dose 2 PUFF; Start 10/18/16 at 22:30 Famotidine (Pepcid) 20 mg DAILY PO Last administered on 10/31/16 08:52; Admin Dose 20 MG; Start 10/19/16 at 09:00 Ondansetron HCl (Zofran Inj) 4 mg Q6H PRN IV NAUSEA AND/OR VOMITING; Start at 22:30 Acetaminophen (Tylenol Tab) 650 mg Q6H PRN PO PAIN LEVEL 1-3 OR FEVER Last administered on 10/31/16 04:09; Admin Dose 650 MG; Start 10/18/16 at 22:30 Docusate Sodium (Colace) 100 mg Q12H PRN PO CONSTIPATION Last administered on 20:47; Admin Dose 100 MG; Start 10/18/16 at 22:30 Bisacodyl (Dulcolax Supp) 10 mg DAILY PRN [place] CONSTIPATION Last administered on 10/26/16 07:04; Admin Dose 10 MG; Start 10/18/16 at 22:30 Diagnostic Test (Pha) (Accucheck) 1 ea 02 XX Last administered on 10/27/16 02: 31; Admin Dose 1 EA; Start 10/19/16 at 02:00 Miscellaneous Information 1 ea NOTE XX ; Start 10/18/16 at 22:30 Glucose (Glutose) 15 gm Q15M PRN PO DECREASED GLUCOSE; Start 10/18/16 at 22:30 Glucose (Glutose) 22.5 gm Q15M PRN PO DECREASED GLUCOSE; Start 10/18/16 at 22: 30 Dextrose (D50w Syringe) 25 ml Q15M PRN IV DECREASED GLUCOSE; Start 10/18/16 at 22:30 Dextrose (D50w Syringe) 50 ml Q15M PRN IV DECREASED GLUCOSE Last administered on 10/27/16 09:35; Admin Dose 50 ML; Start 10/18/16 at 22:30 Glucagon (Glucagen) 1 mg Q15M PRN IM DECREASED GLUCOSE; Start 10/18/16 at 22:30 Glucose (Glutose) 15 gm Q15M PRN BUCCAL DECREASED GLUCOSE; Start 10/18/16 at 22 :30 Linezolid (Zyvox) 600 mg BID PO Last administered on 10/31/16 08:52; Admin Dose 600 MG; Start 10/20/16 at 12:15 Aspirin (Halfprin) 81 mg DAILY PO Last administered on 10/31/16 08:52; Admin Dose 81 MG; Start 10/22/16 at 09:00 Lactobacillus Acidoph/Bulgaricus (Floranex) 1 tab BID PO Last administered on 08:52; Admin Dose 1 TAB; Start 10/22/16 at 21:00 Senna/Docusate Sodium (Senokot-S) 2 tab HS PO Last administered on 10/30/16 20: 27; Admin Dose 2 TAB; Start 10/22/16 at 21:00 Lactulose (Enulose) 20 gm TID PRN PO CONSTIPATION Last administered on 13:32; Admin Dose 20 GM; Start 10/23/16 at 17:30 Clonidine HCl 1 patch 1 patch Q7D TRANSDERM Last administered on 10/31/16 08:54 ; Admin Dose 1 PATCH; Start 10/24/16 at 09:00 Meropenem (Merrem 500 Mg/ 100 ml (Pmx)) 100 ml @ 200 mls/hr Q24H IVPB Last administered on 10/30/16 20:27; Admin Dose 200 MLS/HR; Start 10/26/16 at 21:00 Sodium Biphosphate/ Sodium Phosphate (Fleet Enema) 133 ml DAILY PRN [place] CONSTIPATION Last administered on 10/26/16 18:33; Admin Dose 133 ML; Start at 18:00 Hydromorphone HCl (Dilaudid [employer]OWS SYSTEMS ENGINEER) 0 MG/HR CONTINUOUS RATE ... [employer]ER IV Last administered on 10/29/16 20:45; Admin Dose 6 MG; Start 10/27/16 at 12:30 Heparin Sodium (Porcine) (Heparin (5000 Units/0.5 ml)) 5,000 unit BID SC Last administered on 10/31/16 09:02; Admin Dose 5,000 UNIT; Start 10/27/16 at 12:30 Naloxone HCl (Narcan) 0.2 mg Q2M PRN IV RR 8 BREATHS/MIN OR LESS; Start at 13:00 Oxycodone/ Acetaminophen (Percocet (5/ 325)) 2 tab Q4H PRN PO PAIN Last administered on 10/30/16 19:55; Admin Dose 2 TAB; Start 10/28/16 at 15:00 Insulin Glargine (Lantus) 4 unit DAILY@20 SC Last administered on 10/30/16 20: 32; Admin Dose 4 UNIT; Start 10/29/16 at 20:00 Benazepril HCl (Lotensin) 10 mg BID PO Last administered on 10/31/16 08:53; Admin Dose 10 MG; Start 10/29/16 at 21:00 GERHARD ALVES Oct 31, 2016 11:33
[2016-10-31] MEDS: metroNIDAZOLE 500 MG TAB PO SCH ×2 (13:06→22:07)
--- NOTE | 2016-10-31 14:59 | PN ---
Date/Time of Note Date/Time of Note DATE: 10/31/16 TIME: 14:55 Assessment/Plan Lines/Catheters IV Catheter Type (from Nrs): Saline Lock Correa in Place (from Nrs): No Assessment/Plan Chief Complaint/Hosp Course -Bilateral lower extremity atherosclerosis with gangrene: S/P BKA -LLE medial thigh wound: Changed wound vac today, will start wound management consult for vac change MWF. Patient may require stump debridement and exploration if leukocytosis does not resolve -Right lower extremity gangrene: will schedule patient for angiogram pending clinical laboratory science professor availability and resolution of WBC/leukocytosis -End-stage renal disease: Will eventually plan for creation of a new fistula, For now will remove right chest wall perm catheter as a possible source of leukocytosis and provide a line holiday -Optimize vascular status (BP meds, diet, nutrition, exercise, sugar control, antiplatelets). -Continue antibiotics - cultures of graft ESBL -Continue with wound vac for now -PT/OT OOB and FWB as tolerated -Appreciate cardiology evaluation -Apply Betadine paint to all the incision lines for now. -Discussed findings, plan and management with the patient and family at the bedside and they understand with certified plasterer rough -Thank you for allowing us to participate in the care of your patient. Please call with any questions. Problems: Subjective 24 Hr Interval Summary no new vascular events overnight , pain better controlled, elevated WBC Exam/Review of Systems Vital Signs Vitals Vital Signs Date Time Temp Pulse Resp B/P Pulse Ox O2 Delivery O2 Flow Rate FiO2 10/31/16 12:59 18 10/31/16 12:08 99.2 78 140/54 97 Room Air 10/28/16 04:00 2.0 Intake and Output 10/30/16 10/30/16 10/31/16 15:00 23:00 07:00 Intake Total 600 ml 260 ml Output Total 3000 ml 0 ml Balance -2400 ml 260 ml Exam Free Text/Dictation GENERAL: Alert and oriented x3, PULMONARY: Clear to auscultation bilaterally. CARDIOVASCULAR: S1, S2 present. ABDOMEN: Soft, nontender, nondistended. Bowel sounds positive. EXTREMITIES: Right lower extremity palpable femoral pulse, nonpalpable pedal pulse. Motor, sensory intact. Cap refill 3 to 4 seconds. Gangrene of the first and second toe with surrounding erythema resolving and pain of the first toe Left lower extremity: Palpable femoral pulse, BKA stump with cap refill of 3 seconds, medial thigh with wound vac intact - medial and anterior stump with blister and eschar developing. nontender, ricarda intact, no drainage, Results Result Diagram: 10/31/1630 10/31/16 0530 CYNDI CARR MD Oct 31, 2016 14:59
--- NOTE | 2016-10-31 15:11 | CONS ---
Date/Time of Note Date/Time of Note DATE: 10/31/16 TIME: 15:10 Assessment/Plan Assessment/Plan Additional Assessment/Plan 1. Systemic inflammatory response syndrome. 2. 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 3. End-stage renal disease, hemodialysis dependent. 4. Diabetes. 5. Healthcare-acquired pneumonia 6. History of peripheral arterial disease status post left lower extremity bypass in September 2016 7. Hypertension He is hemodynamically stable Continue HD Continue Benazepril and Metoprolol Continue Insulin Continue Antibiotics Continue GI and DVT Prophylaxis Consultation Date/Type/Reason Admit Date/Time Oct 18, 2016 at 16:52 Gastrointestinal: no complaints Genitourinary: no complaints Musculoskeletal: no complaints Psychological: nl mood/affect Social History Smoking Status: Former smoker Exam/Review of Systems Vital Signs Vitals Vital Signs Date Time Temp Pulse Resp B/P Pulse Ox O2 Delivery O2 Flow Rate FiO2 10/31/16 12:59 18 10/31/16 12:08 99.2 78 140/54 97 Room Air 10/28/16 04:00 2.0 Intake and Output 10/30/16 10/30/16 10/31/16 15:00 23:00 07:00 Intake Total 600 ml 260 ml Output Total 3000 ml 0 ml Balance -2400 ml 260 ml Exam Constitutional: alert, oriented, well developed Head: atraumatic, normocephalic Neck: non-tender, supple Respiratory: clear to auscultation Cardiovascular: regular rate and rhythm Gastrointestinal: nl liver, spleen, non-tender, soft Extremities: in dressing no oozing Results Result Diagram: 10/31/16 0530 10/31/16 0530 Results 24 hrs Laboratory Tests Test 10/30/16 17:30 10/30/16 20:02 10/31/16 05:30 10/31/16 08:50 Bedside Glucose 159 158 113 White Blood Count 24.0 #H Red Blood Count 3.23 L Hemoglobin 10.1 L Hematocrit 31.1 L Mean Corpuscular Volume 96.3 Mean Corpuscular Hemoglobin 31.3 Mean Corpuscular Hemoglobin Concent 32.5 Red Cell Distribution Width 17.2 H Platelet Count 364 Mean Platelet Volume 11.4 H Neutrophils % 80.8 H Lymphocytes % 7.6 L Monocytes % 10.4 Eosinophils % 0.0 Basophils % 0.2 Nucleated Red Blood Cells % 0.0 Neutrophils # 19.4 H Lymphocytes # 1.8 Monocytes # 2.5 H Eosinophils # 0.0 Basophils # 0.1 Nucleated Red Blood Cells # 0.0 Sodium Level 136 Potassium Level 3.9 Chloride Level 93 L Carbon Dioxide Level 25 Anion Gap 22 H Blood Urea Nitrogen 43 H Creatinine 6.79 H Glucose Level 83 Calcium Level 7.7 L Test 10/31/16 12:04 Bedside Glucose 110 Medications Medications Current Medications Metoprolol Tartrate (Lopressor) 25 mg BID PO Last administered on 10/31/16 08: 53; Admin Dose 25 MG; Start 10/18/16 at 19:21 Amlodipine Besylate (Norvasc) 10 mg DAILY PO Last administered on 10/31/16 08: 52; Admin Dose 10 MG; Start 10/19/16 at 09:00 Hydralazine HCl (Apresoline) 10 mg Q4H PRN IV SBP>150 mm Hg Last administered on 10/27/16 20:38; Admin Dose 10 MG; Start 10/18/16 at 20:00 Albuterol (Ventolin Hfa) 2 puff Q8 INH Last administered on 10/31/16 13:06; Admin Dose 2 PUFF; Start 10/18/16 at 22:30 Famotidine (Pepcid) 20 mg DAILY PO Last administered on 10/31/16 08:52; Admin Dose 20 MG; Start 10/19/16 at 09:00 Ondansetron HCl (Zofran Inj) 4 mg Q6H PRN IV NAUSEA AND/OR VOMITING; Start at 22:30 Acetaminophen (Tylenol Tab) 650 mg Q6H PRN PO PAIN LEVEL 1-3 OR FEVER Last administered on 10/31/16 04:09; Admin Dose 650 MG; Start 10/18/16 at 22:30 Docusate Sodium (Colace) 100 mg Q12H PRN PO CONSTIPATION Last administered on 20:47; Admin Dose 100 MG; Start 10/18/16 at 22:30 Bisacodyl (Dulcolax Supp) 10 mg DAILY PRN [place] CONSTIPATION Last administered on 10/26/16 07:04; Admin Dose 10 MG; Start 10/18/16 at 22:30 Diagnostic Test (Pha) (Accucheck) 1 ea 02 XX Last administered on 10/27/16 02: 31; Admin Dose 1 EA; Start 10/19/16 at 02:00 Miscellaneous Information 1 ea NOTE XX ; Start 10/18/16 at 22:30 Glucose (Glutose) 15 gm Q15M PRN PO DECREASED GLUCOSE; Start 10/18/16 at 22:30 Glucose (Glutose) 22.5 gm Q15M PRN PO DECREASED GLUCOSE; Start 10/18/16 at 22: 30 Dextrose (D50w Syringe) 25 ml Q15M PRN IV DECREASED GLUCOSE; Start 10/18/16 at 22:30 Dextrose (D50w Syringe) 50 ml Q15M PRN IV DECREASED GLUCOSE Last administered on 10/27/16 09:35; Admin Dose 50 ML; Start 10/18/16 at 22:30 Glucagon (Glucagen) 1 mg Q15M PRN IM DECREASED GLUCOSE; Start 10/18/16 at 22:30 Glucose (Glutose) 15 gm Q15M PRN BUCCAL DECREASED GLUCOSE; Start 10/18/16 at 22 :30 Linezolid (Zyvox) 600 mg BID PO Last administered on 10/31/16 08:52; Admin Dose 600 MG; Start 10/20/16 at 12:15 Aspirin (Halfprin) 81 mg DAILY PO Last administered on 10/31/16 08:52; Admin Dose 81 MG; Start 10/22/16 at 09:00 Lactobacillus Acidoph/Bulgaricus (Floranex) 1 tab BID PO Last administered on 08:52; Admin Dose 1 TAB; Start 10/22/16 at 21:00 Senna/Docusate Sodium (Senokot-S) 2 tab HS PO Last administered on 10/30/16 20: 27; Admin Dose 2 TAB; Start 10/22/16 at 21:00 Lactulose (Enulose) 20 gm TID PRN PO CONSTIPATION Last administered on 13:32; Admin Dose 20 GM; Start 10/23/16 at 17:30 Clonidine HCl 1 patch 1 patch Q7D TRANSDERM Last administered on 10/31/16 08:54 ; Admin Dose 1 PATCH; Start 10/24/16 at 09:00 Meropenem (Merrem 500 Mg/ 100 ml (Pmx)) 100 ml @ 200 mls/hr Q24H IVPB Last administered on 10/30/16 20:27; Admin Dose 200 MLS/HR; Start 10/26/16 at 21:00 Sodium Biphosphate/ Sodium Phosphate (Fleet Enema) 133 ml DAILY PRN [place] CONSTIPATION Last administered on 10/26/16 18:33; Admin Dose 133 ML; Start at 18:00 Hydromorphone HCl (Dilaudid BRICK [employer]URNER HEAD) 0 MG/HR CONTINUOUS RATE ... BRICK [employer]URNER HEAD IV Last administered on 10/29/16 20:45; Admin Dose 6 MG; Start 10/27/16 at 12:30 Heparin Sodium (Porcine) (Heparin (5000 Units/0.5 ml)) 5,000 unit BID SC Last administered on 10/31/16 09:02; Admin Dose 5,000 UNIT; Start 10/27/16 at 12:30 Naloxone HCl (Narcan) 0.2 mg Q2M PRN IV RR 8 BREATHS/MIN OR LESS; Start at 13:00 Oxycodone/ Acetaminophen (Percocet (5/ 325)) 2 tab Q4H PRN PO PAIN Last administered on 10/30/16 19:55; Admin Dose 2 TAB; Start 10/28/16 at 15:00 Insulin Glargine (Lantus) 4 unit DAILY@20 SC Last administered on 10/30/16 20: 32; Admin Dose 4 UNIT; Start 10/29/16 at 20:00 Benazepril HCl (Lotensin) 10 mg BID PO Last administered on 10/31/16 08:53; Admin Dose 10 MG; Start 10/29/16 at 21:00 Metronidazole (Flagyl) 500 mg Q8 PO Last administered on 10/31/16 13:06; Admin Dose 500 MG; Start 10/31/16 at 14:00 MICHAEL DIMAS M.D. Oct 31, 2016 15:11
--- NOTE | 2016-10-31 16:30 | RADRPT ---
PROCEDURE: XR Chest. CLINICAL INDICATION: Shortness of breath TECHNIQUE: Single view of the chest COMPARISON: Chest radiograph October 25, 2016 FINDINGS: There is a right-sided tunnel venous catheter with its tip at the distal SVC. There is mild vascula r congestion , with slight increase in right mid lung opacity. Cardiac silhouette is mildly enlarged and there are atherosclerotic calcifications of the aorta. Bib asilar atelectasis is noted. There is no pleural effusion. There is no pneumothorax. There is no acute osseous abnormality. IMPRESSION: 1. Mild pulmonary vascular congestion and mildly enlarged cardiac silhouette. Slightly more promin ent right mid lung opacity may reflect pneumonia / pneumonitis, and appears slightly more prominent than the previous study. 2. Atherosclerotic calcifications of the aorta. 3. Right-sided tunnel venous catheter. RPTAT: [facility] .Onel Sanchez MD, Date Time Electronically viewed and signed by .Onel Sanchez MD, on 10/31/2016 16:29 .K/
--- NOTE | 2016-10-31 17:38 | CONS ---
Date/Time of Note Date/Time of Note DATE: 10/31/16 TIME: 17:36 Assessment/Plan Assessment/Plan Chief Complaint/Hosp Course SUBJECTIVE: Awake, feels better, no pain, no n/v/d, nad MICROBIOLOGY: Blood cultures from hemodialysis catheter remain negative. Left lower extremity wound culture growing E coli ESBL ANTIMICROBIALS: 1. Zyvox. 2. Merrem. PHYSICAL EXAMINATION: GENERAL: This is well-developed, fragile, elderly man who is awake, in no distress. HEENT: Head atraumatic, normocephalic. Sclerae anicteric. Buccal mucosa dry. NECK: Supple. CHEST: Rise symmetrical. Breath sounds clear. HEART: S1, S2. ABDOMEN: Soft, bowel tones present. EXTREMITIES: Left lower extremity dressing intact. The patient has an immobilizer. ASSESSMENT: 1. Sepsis. 2. Right lower extremity gangrene. 3. 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 4. End-stage renal disease, hemodialysis dependent==>? infected. 5. Diabetes. 6. Healthcare-acquired pneumonia, improving. PLAN: Stable, no fevers, will add Flagyl given significant leukocytosis, check cxr, continue abx, consider line change given recurrent fevers and chills during HD DW staff/pt Problems: Consultation Date/Type/Reason Admit Date/Time Oct 18, 2016 at 16:52 Type of Consultation: id Referring Provider: OZZIE HERRERA MD Exam/Review of Systems Vital Signs Vitals Vital Signs Date Time Temp Pulse Resp B/P Pulse Ox O2 Delivery O2 Flow Rate FiO2 10/31/16 12:59 18 10/31/16 12:08 99.2 78 140/54 97 Room Air 10/28/16 04:00 2.0 Intake and Output 10/30/16 10/30/16 10/31/16 15:00 23:00 07:00 Intake Total 600 ml 260 ml Output Total 3000 ml 0 ml Balance -2400 ml 260 ml Results Result Diagram: 10/31/16 0530 10/31/16 0530 Results 24 hrs Laboratory Tests Test 10/30/16 20:02 10/31/16 05:30 10/31/16 08:50 10/31/16 12:04 Bedside Glucose 158 113 110 White Blood Count 24.0 #H Red Blood Count 3.23 L Hemoglobin 10.1 L Hematocrit 31.1 L Mean Corpuscular Volume 96.3 Mean Corpuscular Hemoglobin 31.3 Mean Corpuscular Hemoglobin Concent 32.5 Red Cell Distribution Width 17.2 H Platelet Count 364 Mean Platelet Volume 11.4 H Neutrophils % 80.8 H Lymphocytes % 7.6 L Monocytes % 10.4 Eosinophils % 0.0 Basophils % 0.2 Nucleated Red Blood Cells % 0.0 Neutrophils # 19.4 H Lymphocytes # 1.8 Monocytes # 2.5 H Eosinophils # 0.0 Basophils # 0.1 Nucleated Red Blood Cells # 0.0 Sodium Level 136 Potassium Level 3.9 Chloride Level 93 L Carbon Dioxide Level 25 Anion Gap 22 H Blood Urea Nitrogen 43 H Creatinine 6.79 H Glucose Level 83 Calcium Level 7.7 L Medications Medications Current Medications Metoprolol Tartrate (Lopressor) 25 mg BID PO Last administered on 10/31/16 08: 53; Admin Dose 25 MG; Start 10/18/16 at 19:21 Amlodipine Besylate (Norvasc) 10 mg DAILY PO Last administered on 10/31/16 08: 52; Admin Dose 10 MG; Start 10/19/16 at 09:00 Hydralazine HCl (Apresoline) 10 mg Q4H PRN IV SBP>150 mm Hg Last administered on 10/27/16 20:38; Admin Dose 10 MG; Start 10/18/16 at 20:00 Albuterol (Ventolin Hfa) 2 puff Q8 INH Last administered on 10/31/16 13:06; Admin Dose 2 PUFF; Start 10/18/16 at 22:30 Famotidine (Pepcid) 20 mg DAILY PO Last administered on 10/31/16 08:52; Admin Dose 20 MG; Start 10/19/16 at 09:00 Ondansetron HCl (Zofran Inj) 4 mg Q6H PRN IV NAUSEA AND/OR VOMITING; Start at 22:30 Acetaminophen (Tylenol Tab) 650 mg Q6H PRN PO PAIN LEVEL 1-3 OR FEVER Last administered on 10/31/16 04:09; Admin Dose 650 MG; Start 10/18/16 at 22:30 Docusate Sodium (Colace) 100 mg Q12H PRN PO CONSTIPATION Last administered on 20:47; Admin Dose 100 MG; Start 10/18/16 at 22:30 Bisacodyl (Dulcolax Supp) 10 mg DAILY PRN [place] CONSTIPATION Last administered on 10/26/16 07:04; Admin Dose 10 MG; Start 10/18/16 at 22:30 Diagnostic Test (Pha) (Accucheck) 1 ea 02 XX Last administered on 10/27/16 02: 31; Admin Dose 1 EA; Start 10/19/16 at 02:00 Miscellaneous Information 1 ea NOTE XX ; Start 10/18/16 at 22:30 Glucose (Glutose) 15 gm Q15M PRN PO DECREASED GLUCOSE; Start 10/18/16 at 22:30 Glucose (Glutose) 22.5 gm Q15M PRN PO DECREASED GLUCOSE; Start 10/18/16 at 22: 30 Dextrose (D50w Syringe) 25 ml Q15M PRN IV DECREASED GLUCOSE; Start 10/18/16 at 22:30 Dextrose (D50w Syringe) 50 ml Q15M PRN IV DECREASED GLUCOSE Last administered on 10/27/16 09:35; Admin Dose 50 ML; Start 10/18/16 at 22:30 Glucagon (Glucagen) 1 mg Q15M PRN IM DECREASED GLUCOSE; Start 10/18/16 at 22:30 Glucose (Glutose) 15 gm Q15M PRN BUCCAL DECREASED GLUCOSE; Start 10/18/16 at 22 :30 Linezolid (Zyvox) 600 mg BID PO Last administered on 10/31/16 08:52; Admin Dose 600 MG; Start 10/20/16 at 12:15 Aspirin (Halfprin) 81 mg DAILY PO Last administered on 10/31/16 08:52; Admin Dose 81 MG; Start 10/22/16 at 09:00 Lactobacillus Acidoph/Bulgaricus (Floranex) 1 tab BID PO Last administered on 08:52; Admin Dose 1 TAB; Start 10/22/16 at 21:00 Senna/Docusate Sodium (Senokot-S) 2 tab HS PO Last administered on 10/30/16 20: 27; Admin Dose 2 TAB; Start 10/22/16 at 21:00 Lactulose (Enulose) 20 gm TID PRN PO CONSTIPATION Last administered on 13:32; Admin Dose 20 GM; Start 10/23/16 at 17:30 Clonidine HCl 1 patch 1 patch Q7D TRANSDERM Last administered on 10/31/16 08:54 ; Admin Dose 1 PATCH; Start 10/24/16 at 09:00 Meropenem (Merrem 500 Mg/ 100 ml (Pmx)) 100 ml @ 200 mls/hr Q24H IVPB Last administered on 10/30/16 20:27; Admin Dose 200 MLS/HR; Start 10/26/16 at 21:00 Sodium Biphosphate/ Sodium Phosphate (Fleet Enema) 133 ml DAILY PRN [place] CONSTIPATION Last administered on 10/26/16 18:33; Admin Dose 133 ML; Start at 18:00 Hydromorphone HCl (Dilaudid FUNDRAISING ASSISTANT) 0 MG/HR CONTINUOUS RATE ... FUNDRAISING ASSISTANT IV Last administered on 10/29/16 20:45; Admin Dose 6 MG; Start 10/27/16 at 12:30 Heparin Sodium (Porcine) (Heparin (5000 Units/0.5 ml)) 5,000 unit BID SC Last administered on 10/31/16 09:02; Admin Dose 5,000 UNIT; Start 10/27/16 at 12:30 Naloxone HCl (Narcan) 0.2 mg Q2M PRN IV RR 8 BREATHS/MIN OR LESS; Start at 13:00 Oxycodone/ Acetaminophen (Percocet (5/ 325)) 2 tab Q4H PRN PO PAIN Last administered on 10/30/16 19:55; Admin Dose 2 TAB; Start 10/28/16 at 15:00 Insulin Glargine (Lantus) 4 unit DAILY@20 SC Last administered on 10/30/16 20: 32; Admin Dose 4 UNIT; Start 10/29/16 at 20:00 Benazepril HCl (Lotensin) 10 mg BID PO Last administered on 10/31/16 08:53; Admin Dose 10 MG; Start 10/29/16 at 21:00 Metronidazole (Flagyl) 500 mg Q8 PO Last administered on 10/31/16 13:06; Admin Dose 500 MG; Start 10/31/16 at 14:00 DARLENE MCKEE NP Oct 31, 2016 17:38
[2016-10-31] MEDS: MEROPENEM 500 MG/100 ML (PMX) 100 ML IVPB SCH (20:21)
[2016-10-31] MEDS: SENNA/DOCUSATE NA (8.6MG/50MG) TAB PO SCH (20:22)
[2016-10-31] MEDS: INSULIN GLARGINE [LANtus] 3 ML PEN SC SCH (20:27)
[2016-11-01] VITALS (12 sets, daily range): BP systolic 105–140; BP diastolic 49–78; PULSE 72–100; RESP 17–22
[2016-11-01] MEDS: ACCU-CHEK XX SCH (02:00)
[2016-11-01] MEDS: ACETAMINOPHEN 325 MG TAB PO PRN (02:36)
[2016-11-01 06:03] LABS: ADD SCAN DIFF NO
[2016-11-01] MEDS: metroNIDAZOLE 500 MG TAB PO SCH ×3 (06:05→22:02)
[2016-11-01] MEDS: ALBUTEROL HFA 8 GM INHALER INH SCH ×3 (06:06→22:02)
[2016-11-01 06:07] LABS: ABNORMAL IP MESSAGE 1; HEMATOCRIT 28.1 % (42.0-52.0); HEMOGLOBIN 8.8 g/dl (14.0-18.0); MEAN CORPUSCULAR HEMOGLOBIN 30.2 pg (29.0-33.0); MEAN CORPUSCULAR HGB CONC 31.3 g/dl (32.0-37.0); MEAN CORPUSCULAR VOLUME 96.6 fl (82.0-101.0); MEAN PLATELET VOLUME 11.5 fl (7.4-10.4); PLATELET COUNT 337 10^3/UL (140-415); RED BLOOD COUNT 2.91 10^6/ul (4.70-6.10); RED CELL DISTRIBUTION WIDTH 17.7 % (11.5-14.5); WHITE BLOOD COUNT 25.6 10^3/ul (4.8-10.8)
[2016-11-01 06:21] LABS: POTASSIUM 4.8 mmol/L (3.5-5.1)
[2016-11-01 06:23] LABS: CREATININE 8.4 mg/dl (0.61-1.24)
[2016-11-01 06:24] LABS: CALCIUM 7.1 mg/dl (8.4-10.2)
[2016-11-01] MEDS: INSULIN ASPART [NOVOLOG] 3 ML PEN SC SCH ×4 (08:15→21:00)
[2016-11-01] MEDS: AMLODIPINE 10 MG TAB PO SCH (09:00)
[2016-11-01] MEDS: BENAZEPRIL 10 MG TAB PO SCH ×2 (09:00→21:00)
[2016-11-01] MEDS: METOPROLOL 25 MG TAB PO SCH ×2 (09:00→21:00)
[2016-11-01 09:18] LABS: LYMPHOCYTES # 4.9 10^3/ul (0.8-2.9); MONOCYTE # 3.1 10^3/ul (0.3-0.9); NEUTROPHIL # 16.9 10^3/ul (1.6-7.5)
[2016-11-01] MEDS: ZYVOX 600 MG TAB PO SCH ×2 (09:49→22:02)
[2016-11-01] MEDS: FAMOTIDINE 20 MG TAB PO SCH (09:49)
[2016-11-01] MEDS: LACTOBACILLUS CHEW TAB PO SCH ×2 (09:49→22:01)
[2016-11-01] MEDS: HEPARIN 5,000 UNIT/0.5 ML VIAL SC SCH ×2 (09:57→22:06)
[2016-11-01] MEDS: ASPIRIN (EC) 81 MG TAB PO SCH (10:01)
--- NOTE | 2016-11-01 11:54 | CONS ---
Date/Time of Note Date/Time of Note DATE: 11/01/16 TIME: 11:52 Assessment/Plan Assessment/Plan Additional Assessment/Plan 1. 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 Failed redo bypass.post-surgical intervention with thrombectomy, exploration of the above knee popliteal graft and debridement of left lower extremity wound with wound VAC application on 10/19/2016. 2. Severe stenosis of the right distal superficial femoral artery and occluded right posterior tibial artery. 3. End-stage renal disease on hemodialysis Tuesday, , Tuesday. 4. Accelerated hypertension. 5. Hyperlipidemia. 6. History of hypertension with peripheral arterial disease. 7. History of peripheral arterial disease status post left lower extremity bypass in September 2016. PLAN: pt has been having fever with chills during HD, plan for removal of permacath today, then we will place new pemacath on tuesday AM Status post-surgical intervention with thrombectomy, exploration of the above knee popliteal graft and debridement of left lower extremity wound with wound VAC application on 10/19/2016. Consultation Date/Type/Reason Admit Date/Time Oct 18, 2016 at 16:52 Initial Consult Date 10/18/2016 Type of Consultation: NEPHROLOGY Referring Provider: OZZIE HERRERA MD 24 HR Interval Summary Free Text/Dictation pt has been having fever with chills during HD, blood cx has been negaitve, plan for removal of permacath today Exam/Review of Systems Vital Signs Vitals Vital Signs Date Time Temp Pulse Resp B/P Pulse Ox O2 Delivery O2 Flow Rate FiO2 11/01/16 09:47 99.7 78 20 107/51 95 Room Air Intake and Output 10/31/16 10/31/16 11/01/16 15:00 23:00 07:00 Intake Total 460 ml 323 ml Output Total 0 ml 0 ml Balance 0 ml 460 ml 323 ml Results Result Diagram: 11/01/16 0515 11/01/16 0515 Results 24 hrs Laboratory Tests Test 10/31/16 12:04 10/31/16 17:31 10/31/16 20:20 11/01/16 05:15 Bedside Glucose 110 159 166 White Blood Count 25.6 H Red Blood Count 2.91 L Hemoglobin 8.8 L Hematocrit 28.1 L Mean Corpuscular Volume 96.6 Mean Corpuscular Hemoglobin 30.2 Mean Corpuscular Hemoglobin Concent 31.3 L Red Cell Distribution Width 17.7 H Platelet Count 337 Mean Platelet Volume 11.5 H Neutrophils % 66.0 Band Neutrophils % 3.0 Lymphocytes % 19.0 Monocytes % 12.0 H Neutrophils # 16.9 H Lymphocytes # 4.9 H Monocytes # 3.1 H Sodium Level 130 L Potassium Level 4.8 Chloride Level 93 L Carbon Dioxide Level 22 Anion Gap 20 H Blood Urea Nitrogen 67 H Creatinine 8.40 H Glucose Level 115 Calcium Level 7.1 L Test 11/01/16 08:24 Bedside Glucose 97 Medications Medications Current Medications Metoprolol Tartrate (Lopressor) 25 mg BID PO Last administered on 10/31/16 20: 22; Admin Dose 25 MG; Start 10/18/16 at 19:21 Amlodipine Besylate (Norvasc) 10 mg DAILY PO Last administered on 10/31/16 08: 52; Admin Dose 10 MG; Start 10/19/16 at 09:00 Hydralazine HCl (Apresoline) 10 mg Q4H PRN IV SBP>150 mm Hg Last administered on 10/27/16 20:38; Admin Dose 10 MG; Start 10/18/16 at 20:00 Albuterol (Ventolin Hfa) 2 puff Q8 INH Last administered on 11/01/16 06:06; Admin Dose 2 PUFF; Start 10/18/16 at 22:30 Famotidine (Pepcid) 20 mg DAILY PO Last administered on 11/01/16 09:49; Admin Dose 20 MG; Start 10/19/16 at 09:00 Ondansetron HCl (Zofran Inj) 4 mg Q6H PRN IV NAUSEA AND/OR VOMITING; Start at 22:30 Acetaminophen (Tylenol Tab) 650 mg Q6H PRN PO PAIN LEVEL 1-3 OR FEVER Last administered on 11/01/16 02:36; Admin Dose 650 MG; Start 10/18/16 at 22:30 Docusate Sodium (Colace) 100 mg Q12H PRN PO CONSTIPATION Last administered on 20:47; Admin Dose 100 MG; Start 10/18/16 at 22:30 Bisacodyl (Dulcolax Supp) 10 mg DAILY PRN SC CONSTIPATION Last administered on 10/26/16 07:04; Admin Dose 10 MG; Start 10/18/16 at 22:30 Diagnostic Test (Pha) (Accucheck) 1 ea 02 XX Last administered on 10/27/16 02: 31; Admin Dose 1 EA; Start 10/19/16 at 02:00 Miscellaneous Information 1 ea NOTE XX ; Start 10/18/16 at 22:30 Glucose (Glutose) 15 gm Q15M PRN PO DECREASED GLUCOSE; Start 10/18/16 at 22:30 Glucose (Glutose) 22.5 gm Q15M PRN PO DECREASED GLUCOSE; Start 10/18/16 at 22: 30 Dextrose (D50w Syringe) 25 ml Q15M PRN IV DECREASED GLUCOSE; Start 10/18/16 at 22:30 Dextrose (D50w Syringe) 50 ml Q15M PRN IV DECREASED GLUCOSE Last administered on 10/27/16 09:35; Admin Dose 50 ML; Start 10/18/16 at 22:30 Glucagon (Glucagen) 1 mg Q15M PRN IM DECREASED GLUCOSE; Start 10/18/16 at 22:30 Glucose (Glutose) 15 gm Q15M PRN BUCCAL DECREASED GLUCOSE; Start 10/18/16 at 22 :30 Linezolid (Zyvox) 600 mg BID PO Last administered on 11/01/16 09:49; Admin Dose 600 MG; Start 10/20/16 at 12:15 Aspirin (Halfprin) 81 mg DAILY PO Last administered on 11/01/16 10:01; Admin Dose 81 MG; Start 10/22/16 at 09:00 Lactobacillus Acidoph/Bulgaricus (Floranex) 1 tab BID PO Last administered on 09:49; Admin Dose 1 TAB; Start 10/22/16 at 21:00 Senna/Docusate Sodium (Senokot-S) 2 tab HS PO Last administered on 10/31/16 20: 22; Admin Dose 2 TAB; Start 10/22/16 at 21:00 Lactulose (Enulose) 20 gm TID PRN PO CONSTIPATION Last administered on 13:32; Admin Dose 20 GM; Start 10/23/16 at 17:30 Clonidine HCl 1 patch 1 patch Q7D TRANSDERM Last administered on 10/31/16 08:54 ; Admin Dose 1 PATCH; Start 10/24/16 at 09:00 Meropenem (Merrem 500 Mg/ 100 ml (Pmx)) 100 ml @ 200 mls/hr Q24H IVPB Last administered on 10/31/16 20:21; Admin Dose 200 MLS/HR; Start 10/26/16 at 21:00 Sodium Biphosphate/ Sodium Phosphate (Fleet Enema) 133 ml DAILY PRN SC CONSTIPATION Last administered on 10/26/16 18:33; Admin Dose 133 ML; Start at 18:00 Hydromorphone HCl (Dilaudid WATCHMAKING TEACHER) 0 MG/HR CONTINUOUS RATE ... WATCHMAKING TEACHER IV Last administered on 10/29/16 20:45; Admin Dose 6 MG; Start 10/27/16 at 12:30 Heparin Sodium (Porcine) (Heparin (5000 Units/0.5 ml)) 5,000 unit BID SC Last administered on 11/01/16 09:57; Admin Dose 5,000 UNIT; Start 10/27/16 at 12:30 Naloxone HCl (Narcan) 0.2 mg Q2M PRN IV RR 8 BREATHS/MIN OR LESS; Start at 13:00 Oxycodone/ Acetaminophen (Percocet (5/ 325)) 2 tab Q4H PRN PO PAIN Last administered on 10/30/16 19:55; Admin Dose 2 TAB; Start 10/28/16 at 15:00 Insulin Glargine (Lantus) 4 unit DAILY@20 SC Last administered on 10/31/16 20: 27; Admin Dose 4 UNIT; Start 10/29/16 at 20:00 Benazepril HCl (Lotensin) 10 mg BID PO Last administered on 10/31/16 20:22; Admin Dose 10 MG; Start 10/29/16 at 21:00 Metronidazole (Flagyl) 500 mg Q8 PO Last administered on 11/01/16 06:05; Admin Dose 500 MG; Start 10/31/16 at 14:00 LISA MERRITT MD Nov 01, 2016 11:53
[2016-11-01] MEDS ORDERED: LIDOCAINE 1% (MDV) 20 ML INJ ONE (12:09)
--- NOTE | 2016-11-01 13:00 | CONS ---
Date/Time of Note Date/Time of Note DATE: 11/01/16 TIME: 12:57 Assessment/Plan Assessment/Plan Chief Complaint/Hosp Course IMPRESSION: 1. Preoperative evaluation prior to lower extremity vascular surgery, possible amputation.-Now s/p LLE vascular surgery with failed graft and now POD#1 s/p LE amputation 2. Hypertension, uncontrolled. 3. Abnormal electrocardiogram, assess for acute coronary syndrome. 4. Dyslipidemia. 5. Peripheral arterial disease, s/p LE amputation 6. Lower extremity nonhealing ulceration of the toe. 7. PNA 8. End-stage renal disease on hemodialysis. 9. Anemia. 10. Leukocytosis. 11. Cardiomyopathy-LVEF 40-45%-negative trop x 3 since admit 12. CHest thcm-Evzj-fc now resolved. Trop negative x 2 post epsiode/EKG 10/29 with lateral TWI(no sig changes) Recc: -Tele -Continue norvasc/BB/ACEI as tolerated with possible need to decrease doses to allow patient to better tolerate -Local wound care/abx's and f/u cx data -Pain control -Continue ASA -HD for volume removal Problems: Consultation Date/Type/Reason Admit Date/Time Oct 18, 2016 at 16:52 Initial Consult Date 10/19/2016 Type of Consultation: Cardiology Reason for Consultation abnl ecg Referring Provider: OZZIE HERRERA MD Exam/Review of Systems Vital Signs Vitals Vital Signs Date Time Temp Pulse Resp B/P Pulse Ox O2 Delivery O2 Flow Rate FiO2 11/01/16 12:41 99.4 100 22 118/78 92 Room Air Intake and Output 10/31/16 10/31/16 11/01/16 15:00 23:00 07:00 Intake Total 460 ml 323 ml Output Total 0 ml 0 ml Balance 0 ml 460 ml 323 ml Exam Review of Systems: CONSTITUTIONAL: No fevers, chills. PULMONARY: No sob CARDIOVASCULAR: No chest pain/palpitations GASTROINTESTINAL: No nausea/vomiting. GENITOURINARY: No hematuria/dysuria. MUSCULOSKELETAL: No myagias/arthalgias. PSYCHIATRIC: The patient denies depression. NEUROLOGIC: No weakness Constitutional: alert Psych: no complaints Head: normocephalic ENMT: mucosa pink and moist Neck: supple Respiratory: diminished breath sounds (at bases/B) Cardiovascular: regular rate and rhythm Gastrointestinal: non-tender, soft Musculoskeletal: muscle tone (normal) Extremities: edema (none), other (s/p LE amputation) Neurological: other (No focal deficits) Results Result Diagram: 11/01/16 0515 11/01/16 0515 Results 24 hrs Laboratory Tests Test 10/31/16 17:31 10/31/16 20:20 11/01/16 05:15 11/01/16 08:24 Bedside Glucose 159 166 97 White Blood Count 25.6 H Red Blood Count 2.91 L Hemoglobin 8.8 L Hematocrit 28.1 L Mean Corpuscular Volume 96.6 Mean Corpuscular Hemoglobin 30.2 Mean Corpuscular Hemoglobin Concent 31.3 L Red Cell Distribution Width 17.7 H Platelet Count 337 Mean Platelet Volume 11.5 H Neutrophils % 66.0 Band Neutrophils % 3.0 Lymphocytes % 19.0 Monocytes % 12.0 H Neutrophils # 16.9 H Lymphocytes # 4.9 H Monocytes # 3.1 H Sodium Level 130 L Potassium Level 4.8 Chloride Level 93 L Carbon Dioxide Level 22 Anion Gap 20 H Blood Urea Nitrogen 67 H Creatinine 8.40 H Glucose Level 115 Calcium Level 7.1 L Test 11/01/16 11:49 Bedside Glucose 139 Medications Medications Current Medications Metoprolol Tartrate (Lopressor) 25 mg BID PO Last administered on 10/31/16 20: 22; Admin Dose 25 MG; Start 10/18/16 at 19:21 Amlodipine Besylate (Norvasc) 10 mg DAILY PO Last administered on 10/31/16 08: 52; Admin Dose 10 MG; Start 10/19/16 at 09:00 Hydralazine HCl (Apresoline) 10 mg Q4H PRN IV SBP>150 mm Hg Last administered on 10/27/16 20:38; Admin Dose 10 MG; Start 10/18/16 at 20:00 Albuterol (Ventolin Hfa) 2 puff Q8 INH Last administered on 11/01/16 06:06; Admin Dose 2 PUFF; Start 10/18/16 at 22:30 Famotidine (Pepcid) 20 mg DAILY PO Last administered on 11/01/16 09:49; Admin Dose 20 MG; Start 10/19/16 at 09:00 Ondansetron HCl (Zofran Inj) 4 mg Q6H PRN IV NAUSEA AND/OR VOMITING; Start at 22:30 Acetaminophen (Tylenol Tab) 650 mg Q6H PRN PO PAIN LEVEL 1-3 OR FEVER Last administered on 11/01/16 02:36; Admin Dose 650 MG; Start 10/18/16 at 22:30 Docusate Sodium (Colace) 100 mg Q12H PRN PO CONSTIPATION Last administered on 20:47; Admin Dose 100 MG; Start 10/18/16 at 22:30 Bisacodyl (Dulcolax Supp) [address] CONSTIPATION Last administered on 10/26/16 07:04; Admin Dose 10 MG; Start 10/18/16 at 22:30 Diagnostic Test (Pha) (Accucheck) 1 ea 02 XX Last administered on 10/27/16 02: 31; Admin Dose 1 EA; Start 10/19/16 at 02:00 Miscellaneous Information 1 ea NOTE XX ; Start 10/18/16 at 22:30 Glucose (Glutose) 15 gm Q15M PRN PO DECREASED GLUCOSE; Start 10/18/16 at 22:30 Glucose (Glutose) 22.5 gm Q15M PRN PO DECREASED GLUCOSE; Start 10/18/16 at 22: 30 Dextrose (D50w Syringe) 25 ml Q15M PRN IV DECREASED GLUCOSE; Start 10/18/16 at 22:30 Dextrose (D50w Syringe) 50 ml Q15M PRN IV DECREASED GLUCOSE Last administered on 10/27/16 09:35; Admin Dose 50 ML; Start 10/18/16 at 22:30 Glucagon (Glucagen) 1 mg Q15M PRN IM DECREASED GLUCOSE; Start 10/18/16 at 22:30 Glucose (Glutose) 15 gm Q15M PRN BUCCAL DECREASED GLUCOSE; Start 10/18/16 at 22 :30 Linezolid (Zyvox) 600 mg BID PO Last administered on 11/01/16 09:49; Admin Dose 600 MG; Start 10/20/16 at 12:15 Aspirin (Halfprin) 81 mg DAILY PO Last administered on 11/01/16 10:01; Admin Dose 81 MG; Start 10/22/16 at 09:00 Lactobacillus Acidoph/Bulgaricus (Floranex) 1 tab BID PO Last administered on 09:49; Admin Dose 1 TAB; Start 10/22/16 at 21:00 Senna/Docusate Sodium (Senokot-S) 2 tab HS PO Last administered on 10/31/16 20: 22; Admin Dose 2 TAB; Start 10/22/16 at 21:00 Lactulose (Enulose) 20 gm TID PRN PO CONSTIPATION Last administered on 13:32; Admin Dose 20 GM; Start 10/23/16 at 17:30 Clonidine HCl 1 patch 1 patch Q7D TRANSDERM Last administered on 10/31/16 08:54 ; Admin Dose 1 PATCH; Start 10/24/16 at 09:00 Meropenem (Merrem 500 Mg/ 100 ml (Pmx)) 100 ml @ 200 mls/hr Q24H IVPB Last administered on 10/31/16 20:21; Admin Dose 200 MLS/HR; Start 10/26/16 at 21:00 Sodium Biphosphate/ Sodium Phosphate (Fleet Enema) [address] CONSTIPATION Last administered on 10/26/16 18:33; Admin Dose 133 ML; Start at 18:00 Hydromorphone HCl (Dilaudid NIP WRAPPER) 0 MG/HR CONTINUOUS RATE ... NIP WRAPPER IV Last administered on 10/29/16 20:45; Admin Dose 6 MG; Start 10/27/16 at 12:30 Heparin Sodium (Porcine) (Heparin (5000 Units/0.5 ml)) 5,000 unit BID SC Last administered on 11/01/16 09:57; Admin Dose 5,000 UNIT; Start 10/27/16 at 12:30 Naloxone HCl (Narcan) 0.2 mg Q2M PRN IV RR 8 BREATHS/MIN OR LESS; Start at 13:00 Oxycodone/ Acetaminophen (Percocet (5/ 325)) 2 tab Q4H PRN PO PAIN Last administered on 10/30/16 19:55; Admin Dose 2 TAB; Start 10/28/16 at 15:00 Insulin Glargine (Lantus) 4 unit DAILY@20 SC Last administered on 10/31/16 20: 27; Admin Dose 4 UNIT; Start 10/29/16 at 20:00 Benazepril HCl (Lotensin) 10 mg BID PO Last administered on 10/31/16 20:22; Admin Dose 10 MG; Start 10/29/16 at 21:00 Metronidazole (Flagyl) 500 mg Q8 PO Last administered on 11/01/16 06:05; Admin Dose 500 MG; Start 10/31/16 at 14:00 KAYLEE WILSON Nov 01, 2016 13:00
--- NOTE | 2016-11-01 13:27 | OPR ---
Date/Time of Note Date/Time of Note DATE: 11/01/16 TIME: 13:26 Operative Report Free Text/Dictation DATE OF OPERATION: 11/01/16 SURGEON: Bradley Carr MD PREOPERATIVE DIAGNOSIS: ESRD, sepsis POSTOPERATIVE DIAGNOSIS: same ANESTHESIA: Local BLOOD LOSS: minimal COMPLICATIONS: None. HEPARIN: None CONTRAST: None CLOSURE: Manual compression & 3-0 Nylon suture INDICATIONS: This is a 89 year-old female with ESRD and multiple medical conditions and now with leukocytosis. Patient and family have been informed of the alternatives, risks, and benefits. Risks including but not limited to bleeding, thrombosis, embolization, myocardial infarction, , device malfunction, infection, pneumothorax, and nephrotoxicity and patient has agreed to proceed. PROCEDURE: 1. Removal of right chest wall catheter DESCRIPTION: The patient was placed supine on bed. The neck and chest were prepped and draped with sterile technique. A time-out was completed verifying correct patient, procedure, site, positioning prior to beginning this procedure. Using 1 % lidocaine the catheter tract was anesthetized. Using a Sushma clamp the catheter cuff was freed from surrounding granulation tissue and the catheter was removed successfully. Manual compression was held for hemostasis and a 3-0 nylon suture was placed at the catheter site. Sterile dressing was applied. The patient tolerated the procedure well and in fair condition. BRADLEY CARR MD Nov 01, 2016 13:27
--- NOTE | 2016-11-01 14:06 | CONS ---
Date/Time of Note Date/Time of Note DATE: 11/01/16 TIME: 14:04 Assessment/Plan Assessment/Plan Chief Complaint/Hosp Course SUBJECTIVE: NAD, no fevers MICROBIOLOGY: Blood cultures from hemodialysis catheter remain negative. Left lower extremity wound culture growing E coli ESBL ANTIMICROBIALS: 1. Zyvox. 2. Merrem. 3. Flagyl PHYSICAL EXAMINATION: GENERAL: This is well-developed, fragile, elderly man who is awake, in no distress. HEENT: Head atraumatic, normocephalic. Sclerae anicteric. Buccal mucosa dry. NECK: Supple. CHEST: Rise symmetrical. Breath sounds clear. HEART: S1, S2. ABDOMEN: Soft, bowel tones present. EXTREMITIES: Left lower extremity dressing intact. The patient has an immobilizer. ASSESSMENT: 1. Sepsis==> poss line sepsis. 2. Right lower extremity gangrene. 3. 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 4. End-stage renal disease, hemodialysis dependent==>? infected. 5. Diabetes. 6. Healthcare-acquired pneumonia, improving. PLAN: Stable, continue abx, pending dc line staff/Dr Sparks Problems: Consultation Date/Type/Reason Admit Date/Time Oct 18, 2016 at 16:52 Type of Consultation: id Referring Provider: OZZIE HERRERA MD Exam/Review of Systems Vital Signs Vitals Vital Signs Date Time Temp Pulse Resp B/P Pulse Ox O2 Delivery O2 Flow Rate FiO2 11/01/16 12:50 99.4 78 18 107/59 90 Room Air Intake and Output 10/31/16 10/31/16 11/01/16 15:00 23:00 07:00 Intake Total 460 ml 323 ml Output Total 0 ml 0 ml Balance 0 ml 460 ml 323 ml Results Result Diagram: 11/01/16 0515 11/01/16 0515 Results 24 hrs Laboratory Tests Test 10/31/16 17:31 10/31/16 20:20 11/01/16 05:15 11/01/16 08:24 Bedside Glucose 159 166 97 White Blood Count 25.6 H Red Blood Count 2.91 L Hemoglobin 8.8 L Hematocrit 28.1 L Mean Corpuscular Volume 96.6 Mean Corpuscular Hemoglobin 30.2 Mean Corpuscular Hemoglobin Concent 31.3 L Red Cell Distribution Width 17.7 H Platelet Count 337 Mean Platelet Volume 11.5 H Neutrophils % 66.0 Band Neutrophils % 3.0 Lymphocytes % 19.0 Monocytes % 12.0 H Neutrophils # 16.9 H Lymphocytes # 4.9 H Monocytes # 3.1 H Sodium Level 130 L Potassium Level 4.8 Chloride Level 93 L Carbon Dioxide Level 22 Anion Gap 20 H Blood Urea Nitrogen 67 H Creatinine 8.40 H Glucose Level 115 Calcium Level 7.1 L Test 11/01/16 11:49 Bedside Glucose 139 Medications Medications Current Medications Metoprolol Tartrate (Lopressor) 25 mg BID PO Last administered on 10/31/16 20: 22; Admin Dose 25 MG; Start 10/18/16 at 19:21 Amlodipine Besylate (Norvasc) 10 mg DAILY PO Last administered on 10/31/16 08: 52; Admin Dose 10 MG; Start 10/19/16 at 09:00 Hydralazine HCl (Apresoline) 10 mg Q4H PRN IV SBP>150 mm Hg Last administered on 10/27/16 20:38; Admin Dose 10 MG; Start 10/18/16 at 20:00 Albuterol (Ventolin Hfa) 2 puff Q8 INH Last administered on 11/01/16 06:06; Admin Dose 2 PUFF; Start 10/18/16 at 22:30 Famotidine (Pepcid) 20 mg DAILY PO Last administered on 11/01/16 09:49; Admin Dose 20 MG; Start 10/19/16 at 09:00 Ondansetron HCl (Zofran Inj) 4 mg Q6H PRN IV NAUSEA AND/OR VOMITING; Start at 22:30 Acetaminophen (Tylenol Tab) 650 mg Q6H PRN PO PAIN LEVEL 1-3 OR FEVER Last administered on 11/01/16 02:36; Admin Dose 650 MG; Start 10/18/16 at 22:30 Docusate Sodium (Colace) 100 mg Q12H PRN PO CONSTIPATION Last administered on 20:47; Admin Dose 100 MG; Start 10/18/16 at 22:30 Bisacodyl (Dulcolax Supp) 10 mg DAILY PRN IN CONSTIPATION Last administered on 10/26/16 07:04; Admin Dose 10 MG; Start 10/18/16 at 22:30 Diagnostic Test (Pha) (Accucheck) 1 ea 02 XX Last administered on 10/27/16 02: 31; Admin Dose 1 EA; Start 10/19/16 at 02:00 Miscellaneous Information 1 ea NOTE XX ; Start 10/18/16 at 22:30 Glucose (Glutose) 15 gm Q15M PRN PO DECREASED GLUCOSE; Start 10/18/16 at 22:30 Glucose (Glutose) 22.5 gm Q15M PRN PO DECREASED GLUCOSE; Start 10/18/16 at 22: 30 Dextrose (D50w Syringe) 25 ml Q15M PRN IV DECREASED GLUCOSE; Start 10/18/16 at 22:30 Dextrose (D50w Syringe) 50 ml Q15M PRN IV DECREASED GLUCOSE Last administered on 10/27/16 09:35; Admin Dose 50 ML; Start 10/18/16 at 22:30 Glucagon (Glucagen) 1 mg Q15M PRN IM DECREASED GLUCOSE; Start 10/18/16 at 22:30 Glucose (Glutose) 15 gm Q15M PRN BUCCAL DECREASED GLUCOSE; Start 10/18/16 at 22 :30 Linezolid (Zyvox) 600 mg BID PO Last administered on 11/01/16 09:49; Admin Dose 600 MG; Start 10/20/16 at 12:15 Aspirin (Halfprin) 81 mg DAILY PO Last administered on 11/01/16 10:01; Admin Dose 81 MG; Start 10/22/16 at 09:00 Lactobacillus Acidoph/Bulgaricus (Floranex) 1 tab BID PO Last administered on 09:49; Admin Dose 1 TAB; Start 10/22/16 at 21:00 Senna/Docusate Sodium (Senokot-S) 2 tab HS PO Last administered on 10/31/16 20: 22; Admin Dose 2 TAB; Start 10/22/16 at 21:00 Lactulose (Enulose) 20 gm TID PRN PO CONSTIPATION Last administered on 13:32; Admin Dose 20 GM; Start 10/23/16 at 17:30 Clonidine HCl 1 patch 1 patch Q7D TRANSDERM Last administered on 10/31/16 08:54 ; Admin Dose 1 PATCH; Start 10/24/16 at 09:00 Meropenem (Merrem 500 Mg/ 100 ml (Pmx)) 100 ml @ 200 mls/hr Q24H IVPB Last administered on 10/31/16 20:21; Admin Dose 200 MLS/HR; Start 10/26/16 at 21:00 Sodium Biphosphate/ Sodium Phosphate (Fleet Enema) 133 ml DAILY PRN IN CONSTIPATION Last administered on 10/26/16 18:33; Admin Dose 133 ML; Start at 18:00 Hydromorphone HCl (Dilaudid DISBURSING OFFICER) 0 MG/HR CONTINUOUS RATE ... DISBURSING OFFICER IV Last administered on 10/29/16 20:45; Admin Dose 6 MG; Start 10/27/16 at 12:30 Heparin Sodium (Porcine) (Heparin (5000 Units/0.5 ml)) 5,000 unit BID SC Last administered on 11/01/16 09:57; Admin Dose 5,000 UNIT; Start 10/27/16 at 12:30 Naloxone HCl (Narcan) 0.2 mg Q2M PRN IV RR 8 BREATHS/MIN OR LESS; Start at 13:00 Oxycodone/ Acetaminophen (Percocet (5/ 325)) 2 tab Q4H PRN PO PAIN Last administered on 10/30/16 19:55; Admin Dose 2 TAB; Start 10/28/16 at 15:00 Insulin Glargine (Lantus) 4 unit DAILY@20 SC Last administered on 10/31/16 20: 27; Admin Dose 4 UNIT; Start 10/29/16 at 20:00 Benazepril HCl (Lotensin) 10 mg BID PO Last administered on 10/31/16 20:22; Admin Dose 10 MG; Start 10/29/16 at 21:00 Metronidazole (Flagyl) 500 mg Q8 PO Last administered on 11/01/16 06:05; Admin Dose 500 MG; Start 10/31/16 at 14:00 DARLENE MCKEE NP Nov 01, 2016 14:05
--- NOTE | 2016-11-01 14:57 | PN ---
Date/Time of Note Date/Time of Note DATE: 11/01/16 TIME: 14:49 Assessment/Plan VTE Prophylaxis VTE Prophylaxis Intervention: heparin Lines/Catheters IV Catheter Type (from Nrs): Peripheral IV Urinary Cath still in place: No Assessment/Plan Chief Complaint/Hosp Course Assessment and plan 1. 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 Patient does have history of bypass on area that had thrombosed. Continue on heparin drip. 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 Also noted with right lower extremity gangrene. Tentative plan for angiogram of right lower extremity. Follow-up with vascular surgeon recommendations. Continue with analgesics. wound care per vascular surgeon. Continue the recommendations. Pain management physician consulted for further assistance. Await recommendations. cont with abx per ID ( ESBL in wound) 2. ESRD on dialysis. Continue on HD. Follow-up with nephrology recommendations 3. Hypertension. Continue on antihypertensives and adjust needed. Stable 4. Anemia of chronic disease. H&H stable. Monitor for now. 5. History of diabetes. Continue on insulin regimen. Will adjust as needed 6. CAD. Continue on antiplatelet therapy 7. Peripheral vascular disease. Continue aggressive medical management, vascular surgeon has been consulted Disposition and plan:. Tentative plan for angiogram of right lower extremity. Continue with oracle security consultant recommendations. cont with analgesics Problems: Subjective 24 Hr Interval Summary Free Text/Dictation Patient complains of having left lower extremity pain despite of being on TRAPEZE PERFORMER pump Tolerating oral intake Right anterior chest permacath has been removed secondary to bacteremia Exam/Review of Systems Vital Signs Vitals Vital Signs Date Time Temp Pulse Resp B/P Pulse Ox O2 Delivery O2 Flow Rate FiO2 11/01/16 12:50 99.4 78 18 107/59 90 Room Air Intake and Output 10/31/16 10/31/16 11/01/16 15:00 23:00 07:00 Intake Total 460 ml 323 ml Output Total 0 ml 0 ml Balance 0 ml 460 ml 323 ml Exam General: The patient is well-developed, Not in acute distress. HEENT: Atraumatic, normocephalic. The pupils are equal and round . Neck: Supple with full range of motion. Chest: Normal expansion of the thorax during inspiration Lungs: Clear to auscultation bilaterally Heart: Normal S1-S2, Regular rhythm and rate. Abdomen: Soft , nontender, nondistended , bowel sounds are present. Extremities: Status post left lower extremity BKA with wound in the medial aspect of the stump, no active bleeding, no edema no cyanosis Neurologic: Normal mental status,The patient is awake, alert and oriented . Results Result Diagram: 11/01/16 0515 11/01/16 0515 Results 24 hrs Laboratory Tests Test 10/31/16 17:31 10/31/16 20:20 11/01/16 05:15 11/01/16 08:24 Bedside Glucose 159 166 97 White Blood Count 25.6 H Red Blood Count 2.91 L Hemoglobin 8.8 L Hematocrit 28.1 L Mean Corpuscular Volume 96.6 Mean Corpuscular Hemoglobin 30.2 Mean Corpuscular Hemoglobin Concent 31.3 L Red Cell Distribution Width 17.7 H Platelet Count 337 Mean Platelet Volume 11.5 H Neutrophils % 66.0 Band Neutrophils % 3.0 Lymphocytes % 19.0 Monocytes % 12.0 H Neutrophils # 16.9 H Lymphocytes # 4.9 H Monocytes # 3.1 H Sodium Level 130 L Potassium Level 4.8 Chloride Level 93 L Carbon Dioxide Level 22 Anion Gap 20 H Blood Urea Nitrogen 67 H Creatinine 8.40 H Glucose Level 115 Calcium Level 7.1 L Test 11/01/16 11:49 Bedside Glucose 139 Medications Medications Current Medications Metoprolol Tartrate (Lopressor) 25 mg BID PO Last administered on 10/31/16 20: 22; Admin Dose 25 MG; Start 10/18/16 at 19:21 Amlodipine Besylate (Norvasc) 10 mg DAILY PO Last administered on 10/31/16 08: 52; Admin Dose 10 MG; Start 10/19/16 at 09:00 Hydralazine HCl (Apresoline) 10 mg Q4H PRN IV SBP>150 mm Hg Last administered on 10/27/16 20:38; Admin Dose 10 MG; Start 10/18/16 at 20:00 Albuterol (Ventolin Hfa) 2 puff Q8 INH Last administered on 11/01/16 14:07; Admin Dose 2 PUFF; Start 10/18/16 at 22:30 Famotidine (Pepcid) 20 mg DAILY PO Last administered on 11/01/16 09:49; Admin Dose 20 MG; Start 10/19/16 at 09:00 Ondansetron HCl (Zofran Inj) 4 mg Q6H PRN IV NAUSEA AND/OR VOMITING; Start at 22:30 Acetaminophen (Tylenol Tab) 650 mg Q6H PRN PO PAIN LEVEL 1-3 OR FEVER Last administered on 11/01/16 02:36; Admin Dose 650 MG; Start 10/18/16 at 22:30 Docusate Sodium (Colace) 100 mg Q12H PRN PO CONSTIPATION Last administered on 20:47; Admin Dose 100 MG; Start 10/18/16 at 22:30 Bisacodyl (Dulcolax Supp) 10 mg DAILY PRN [place] CONSTIPATION Last administered on 10/26/16 07:04; Admin Dose 10 MG; Start 10/18/16 at 22:30 Diagnostic Test (Pha) (Accucheck) 1 ea 02 XX Last administered on 10/27/16 02: 31; Admin Dose 1 EA; Start 10/19/16 at 02:00 Miscellaneous Information 1 ea NOTE XX ; Start 10/18/16 at 22:30 Glucose (Glutose) 15 gm Q15M PRN PO DECREASED GLUCOSE; Start 10/18/16 at 22:30 Glucose (Glutose) 22.5 gm Q15M PRN PO DECREASED GLUCOSE; Start 10/18/16 at 22: 30 Dextrose (D50w Syringe) 25 ml Q15M PRN IV DECREASED GLUCOSE; Start 10/18/16 at 22:30 Dextrose (D50w Syringe) 50 ml Q15M PRN IV DECREASED GLUCOSE Last administered on 10/27/16 09:35; Admin Dose 50 ML; Start 10/18/16 at 22:30 Glucagon (Glucagen) 1 mg Q15M PRN IM DECREASED GLUCOSE; Start 10/18/16 at 22:30 Glucose (Glutose) 15 gm Q15M PRN BUCCAL DECREASED GLUCOSE; Start 10/18/16 at 22 :30 Linezolid (Zyvox) 600 mg BID PO Last administered on 11/01/16 09:49; Admin Dose 600 MG; Start 10/20/16 at 12:15 Aspirin (Halfprin) 81 mg DAILY PO Last administered on 11/01/16 10:01; Admin Dose 81 MG; Start 10/22/16 at 09:00 Lactobacillus Acidoph/Bulgaricus (Floranex) 1 tab BID PO Last administered on 09:49; Admin Dose 1 TAB; Start 10/22/16 at 21:00 Senna/Docusate Sodium (Senokot-S) 2 tab HS PO Last administered on 10/31/16 20: 22; Admin Dose 2 TAB; Start 10/22/16 at 21:00 Lactulose (Enulose) 20 gm TID PRN PO CONSTIPATION Last administered on 13:32; Admin Dose 20 GM; Start 10/23/16 at 17:30 Clonidine HCl 1 patch 1 patch Q7D TRANSDERM Last administered on 10/31/16 08:54 ; Admin Dose 1 PATCH; Start 10/24/16 at 09:00 Meropenem (Merrem 500 Mg/ 100 ml (Pmx)) 100 ml @ 200 mls/hr Q24H IVPB Last administered on 10/31/16 20:21; Admin Dose 200 MLS/HR; Start 10/26/16 at 21:00 Sodium Biphosphate/ Sodium Phosphate (Fleet Enema) 133 ml DAILY PRN [place] CONSTIPATION Last administered on 10/26/16 18:33; Admin Dose 133 ML; Start at 18:00 Hydromorphone HCl (Dilaudid TRAPEZE PERFORMER) 0 MG/HR CONTINUOUS RATE ... TRAPEZE PERFORMER IV Last administered on 10/29/16 20:45; Admin Dose 6 MG; Start 10/27/16 at 12:30 Heparin Sodium (Porcine) (Heparin (5000 Units/0.5 ml)) 5,000 unit BID SC Last administered on 11/01/16 09:57; Admin Dose 5,000 UNIT; Start 10/27/16 at 12:30 Naloxone HCl (Narcan) 0.2 mg Q2M PRN IV RR 8 BREATHS/MIN OR LESS; Start at 13:00 Oxycodone/ Acetaminophen (Percocet (5/ 325)) 2 tab Q4H PRN PO PAIN Last administered on 10/30/16 19:55; Admin Dose 2 TAB; Start 10/28/16 at 15:00 Insulin Glargine (Lantus) 4 unit DAILY@20 SC Last administered on 10/31/16 20: 27; Admin Dose 4 UNIT; Start 3/31/17 at 20:00 Benazepril HCl (Lotensin) 10 mg BID PO Last administered on 10/31/16 20:22; Admin Dose 10 MG; Start 10/29/16 at 21:00 Metronidazole (Flagyl) 500 mg Q8 PO Last administered on 11/01/16 14:07; Admin Dose 500 MG; Start 10/31/16 at 14:00 OZZIE HERRERA MD Nov 01, 2016 14:57
[2016-11-01] MEDS: DOCUSATE SODIUM 100 MG CAP PO PRN (18:01)
[2016-11-01] MEDS: HYDROmorphONE 0.2 MG/ML PCA IV SCH (19:19)
[2016-11-01] MEDS: INSULIN GLARGINE [LANtus] 3 ML PEN SC SCH (20:12)
[2016-11-01] MEDS: MEROPENEM 500 MG/100 ML (PMX) 100 ML IVPB SCH (20:13)
--- NOTE | 2016-11-01 20:36 | RADRPT ---
PROCEDURE: XR Chest. CLINICAL INDICATION: Chest pain. TECHNIQUE: Single frontal view of the chest was obtained COMPARISON: Chest x-ray 09/04/2016 02:37 p.m. FINDINGS: The soft tissues are normal. There are degenerative osteophytes in the thoracic spine. The heart i s enlarged. The cardiomediastinal silhouette and hilar structures are normal. The pulmonary vascula ture is increased there are vascular calcifications in the aortic arch. There are interstitial perih ilar infiltrates which are more extensive in the right perihilar area and right lower lobe than left . There are bilateral pleural effusions. Central venous catheter enters from right internal jugula r approach with its tip projecting just below the medial right clavicle. No pneumothorax is identif ied. IMPRESSION: 1. Cardiomegaly with congestive heart failure and interstitial pulmonary edema greater in the right lung than left. 2. Bilateral pleural effusions. 3. Central venous catheter with its tip projecting at the level of the superior vena cava with no e vidence of a pneumothorax. RPTAT:AAJJ Physician Karoline Date Time Electronically viewed and signed by Physician Karoline on 11/01/2016 20:35 MARU/
[2016-11-01] MEDS ORDERED: NITROGLYCERIN (SL) 0.4 MG TAB ONE (21:06)
[2016-11-01] MEDS: NITROGLYCERIN (SL) 0.4 MG TAB SL PRN ×3 (21:11→21:24)
--- NOTE | 2016-11-01 21:43 | EN ---
Date/Time of Note Date/Time of Note DATE: 11/01/16 TIME: 21:31 Event Note Medicine Medicine Event Note CHEST PAIN Called by RN at 2046 for a patient with chest pain. STAT EKG, Trop I, D-dimer and BNP ordered. O2 at 89%, put on mask. SBP 110. No NTG until I eval. This patient is here s/p BKA for Gangrene. He is ESRD on HD. Last HD on 10/30. Permacath removed today as a possible source of sepsis. Hx [place] x 2. Patient c/o a squeezing pressure on his heart. He was not able to give me a pain level as he says it is not a pain. However, it feels like his previous heart attacks. No radiation., No nuase, but SOB/difficult to breathe. Patient insisted on sitting up at the side of the bed. He is moaning with his breaths. No sweating. Appears distressed. Heart: Regular Rhythm. Normal Rate. Lungs are clear, but generally decreased airflow throughout, worse airflow in the bases. Left BKA. Right LE: No ecema.SCD in place. EKG being done on my arrival. SR with V4-5 ST depression of 1 small box significant change from previous. Repeat BP after EKG read = 138/64, NTG 0.4 mg SL #1 given. After 4 minutes, I asked patient about his "pain", but asking him instead about the strength of the squeezing. He states "no change" and is able to describe it as 8/10. O2 sat = 93%. Repeat BP = 133/55 after NTG #2 given. O2 sat up to 94% and pain improved to 7/10. BP to 122/66 with O2 sat = 95%, pulse up to 95 BPM. Bolus NS standing by. Patient still sitting on side of bed no dizziness or headache so far. NTG #3 given and pain came down to 5/10 fairly quickly. Pain down to 4/10, O2 sat up to 96%, pulse 66, and patient felt comfortable and wanted to lay back. Still, no dizziness or headache. Trains Service Conductor done drawing blood at 2124. Awaiting results. Will run serial labs and repeat EKG in AM. Critical Care Time Spent = 45 minutes - evaluating patient, reading EKG, and monitoring patient before, during and for a short time after treatment completed. CHON DAN DO Nov 01, 2016 21:43
[2016-11-01 21:48] LABS: D-DIMER 3094.8 ng/ml (<460)
[2016-11-01 21:58] LABS: TROPONIN-I 0.066 ng/ml (0.00-0.12)
[2016-11-01] MEDS: SENNA/DOCUSATE NA (8.6MG/50MG) TAB PO SCH (22:01)
[2016-11-01] MEDS ORDERED: NITROGLYCERIN (SL) 0.4 MG TAB SL PRN (22:30)
[2016-11-01 22:59] LABS: CK-MB 5.06 ng/ml (0.0-2.4); TROPONIN-I 0.066 ng/ml (0.00-0.12)
[2016-11-02] VITALS (26 sets, daily range): BP systolic 97–149; BP diastolic 43–86; PULSE 74–88; RESP 15–26
[2016-11-02] MEDS: ACCU-CHEK XX SCH (00:43)
[2016-11-02 03:34] LABS: ADD SCAN DIFF NO
[2016-11-02 03:35] LABS: ABNORMAL IP MESSAGE 1; BASOPHILS % 0.1 % (0.0-2.0); EOSINOPHILS % 0.1 % (0.0-7.0); HEMATOCRIT 28.6 % (42.0-52.0); LYMPHOCYTES # 2.5 10^3/ul (0.8-2.9); LYMPHOCYTES % 8.7 % (15.0-51.0); MEAN CORPUSCULAR HEMOGLOBIN 30.2 pg (29.0-33.0); MEAN CORPUSCULAR HGB CONC 31.5 g/dl (32.0-37.0); MEAN PLATELET VOLUME 11.5 fl (7.4-10.4); MONOCYTE # 1.9 10^3/ul (0.3-0.9); MONOCYTES % 6.6 % (0.0-11.0); NEUTROPHIL # 23.3 10^3/ul (1.6-7.5); NEUTROPHILS % 83.2 % (39.0-77.0); PLATELET COUNT 353 10^3/UL (140-415); RED BLOOD COUNT 2.98 10^6/ul (4.70-6.10); RED CELL DISTRIBUTION WIDTH 17.7 % (11.5-14.5)
[2016-11-02 04:24] LABS: POTASSIUM 5.6 mmol/L (3.5-5.1)
[2016-11-02 04:27] LABS: CALCIUM 7.2 mg/dl (8.4-10.2); CREATININE 10.06 mg/dl (0.61-1.24)
[2016-11-02] MEDS: metroNIDAZOLE 500 MG TAB PO SCH ×3 (05:32→21:43)
[2016-11-02] MEDS: ALBUTEROL HFA 8 GM INHALER INH SCH ×3 (05:33→22:00)
[2016-11-02 06:31] LABS: TROPONIN-I 0.098 ng/ml (0.00-0.12)
[2016-11-02 06:32] LABS: CK-MB 4.77 ng/ml (0.0-2.4)
[2016-11-02] MEDS: INSULIN ASPART [NOVOLOG] 3 ML PEN SC SCH ×3 (08:15→20:36)
--- NOTE | 2016-11-02 08:39 | RADRPT ---
PROCEDURE: XR Chest. CLINICAL INDICATION: Dyspnea TECHNIQUE: Single frontal chest x-ray. COMPARISON: 11/01/2016 FINDINGS: There is cardiomegaly with pulmonary vascular congestion and interstitial pulmonary edema. There ar e small bilateral pleural effusions. Right IJ central line has been removed. There is no pneumotho rax. The osseous structures are intact. IMPRESSION: 1. Slight worsening of findings of CHF. RPTAT: BB .Lorraine Corbin MD, MD Date Time Electronically viewed and signed by .Lorraine Corbin MD, on 11/02/2016 08:39 .O/
[2016-11-02] MEDS ORDERED: FUROSEMIDE 40 MG INJ IV ONE (10:00)
[2016-11-02] MEDS: ASPIRIN (EC) 81 MG TAB PO SCH (10:25)
[2016-11-02] MEDS: LACTOBACILLUS CHEW TAB PO SCH ×2 (10:25→20:18)
[2016-11-02] MEDS: FAMOTIDINE 20 MG TAB PO SCH (10:26)
[2016-11-02] MEDS: ZYVOX 600 MG TAB PO SCH ×2 (10:26→20:19)
[2016-11-02] MEDS: HEPARIN 5,000 UNIT/0.5 ML VIAL SC SCH ×2 (10:31→20:28)
[2016-11-02] MEDS ORDERED: BISACODYL 10 MG SUPP PR ONE (11:00)
--- NOTE | 2016-11-02 11:46 | CONS ---
Date/Time of Note Date/Time of Note DATE: 11/02/16 TIME: 11:43 Assessment/Plan Assessment/Plan Additional Assessment/Plan 1. 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 Failed redo bypass.post-surgical intervention with thrombectomy, exploration of the above knee popliteal graft and debridement of left lower extremity wound with wound VAC application on 10/19/2016. 2. Severe stenosis of the right distal superficial femoral artery and occluded right posterior tibial artery. 3. End-stage renal disease on hemodialysis Tuesday, , Tuesday. 4. Accelerated hypertension. 5. Hyperlipidemia. 6. History of hypertension with peripheral arterial disease. 7. History of peripheral arterial disease status post left lower extremity bypass in September 2016. PLAN: pt has been having fever with chills during HD, s/p Permacath removal yesterday , pt went into resp distress, will plan for fernanda today and arrange HD as soon as possible Transfer to ICU Status post-surgical intervention with thrombectomy, exploration of the above knee popliteal graft and debridement of left lower extremity wound with wound VAC application on 10/19/2016. Consultation Date/Type/Reason Admit Date/Time Oct 18, 2016 at 16:52 Initial Consult Date 10/18/2016 Type of Consultation: NEPHROLOGY Reason for Consultation ESRD on HD Referring Provider: OZZIE HERRERA MD 24 HR Interval Summary Free Text/Dictation c/o SOB on high flow oxygen , ordered for transfer to ICU Exam/Review of Systems Vital Signs Vitals Vital Signs Date Time Temp Pulse Resp B/P Pulse Ox O2 Delivery O2 Flow Rate FiO2 11/02/16 09:35 24 11/02/16 08:55 99.0 81 131/60 100 Mask 8.0 Intake and Output 11/01/16 11/01/16 11/02/16 15:00 23:00 07:00 Intake Total 820 ml Output Total 0 ml 50 ml Balance 0 ml 770 ml Exam GENERAL: in moderate distress with face mask HEENT: Head atraumatic, normocephalic. Sclerae anicteric. Buccal mucosa dry. NECK: Supple. CHEST: bilateral basilar crackles, no wheezing HEART: S1, S2. ABDOMEN: Soft, bowel tones present. EXTREMITIES: Left lower extremity dressing intact. Results Result Diagram: 11/02/16 0320 11/02/16 0320 Results 24 hrs Laboratory Tests Test 11/01/16 11:49 11/01/16 17:55 11/01/16 20:39 11/01/16 21:25 Bedside Glucose 139 146 85 D-Dimer 3094.80 H D-Dimer Comment Creatine Kinase 1221 H Creatine Kinase Index 0.4 Creatinine Kinase MB (Mass) 5.06 H Troponin I 0.066 B-Type Natriuretic Peptide 570558 H Test 11/02/16 03:20 11/02/16 07:45 White Blood Count 28.0 H Red Blood Count 2.98 L Hemoglobin 9.0 L Hematocrit 28.6 L Mean Corpuscular Volume 96.0 Mean Corpuscular Hemoglobin 30.2 Mean Corpuscular Hemoglobin Concent 31.5 L Red Cell Distribution Width 17.7 H Platelet Count 353 Mean Platelet Volume 11.5 H Neutrophils % 83.2 H Lymphocytes % 8.7 L Monocytes % 6.6 Eosinophils % 0.1 Basophils % 0.1 Nucleated Red Blood Cells % 0.0 Neutrophils # 23.3 H Lymphocytes # 2.5 Monocytes # 1.9 H Eosinophils # 0.0 Basophils # 0.0 Nucleated Red Blood Cells # 0.0 Sodium Level 132 L Potassium Level 5.6 H Chloride Level 90 L Carbon Dioxide Level 19 L Anion Gap 29 #H Blood Urea Nitrogen 90 H Creatinine 10.06 H Glucose Level 105 Calcium Level 7.2 L Creatine Kinase 1117 H Creatine Kinase Index 0.4 Creatinine Kinase MB (Mass) 4.77 H Troponin I 0.098 Bedside Glucose 81 Medications Medications Current Medications Metoprolol Tartrate (Lopressor) 25 mg BID PO Last administered on 10/31/16 20: 22; Admin Dose 25 MG; Start 10/18/16 at 19:21 Amlodipine Besylate (Norvasc) 10 mg DAILY PO Last administered on 10/31/16 08: 52; Admin Dose 10 MG; Start 10/19/16 at 09:00 Hydralazine HCl (Apresoline) 10 mg Q4H PRN IV SBP>150 mm Hg Last administered on 10/27/16 20:38; Admin Dose 10 MG; Start 10/18/16 at 20:00 Albuterol (Ventolin Hfa) 2 puff Q8 INH Last administered on 11/02/16 05:33; Admin Dose 2 PUFF; Start 10/18/16 at 22:30 Famotidine (Pepcid) 20 mg DAILY PO Last administered on 11/02/16 10:26; Admin Dose 20 MG; Start 10/19/16 at 09:00 Ondansetron HCl (Zofran Inj) 4 mg Q6H PRN IV NAUSEA AND/OR VOMITING; Start at 22:30 Acetaminophen (Tylenol Tab) 650 mg Q6H PRN PO PAIN LEVEL 1-3 OR FEVER Last administered on 11/01/16 02:36; Admin Dose 650 MG; Start 10/18/16 at 22:30 Docusate Sodium (Colace) 100 mg Q12H PRN PO CONSTIPATION Last administered on 18:01; Admin Dose 100 MG; Start 10/18/16 at 22:30 Bisacodyl (Dulcolax Supp) 10 mg DAILY PRN [place] CONSTIPATION Last administered on 10/26/16 07:04; Admin Dose 10 MG; Start 10/18/16 at 22:30 Diagnostic Test (Pha) (Accucheck) 1 ea 02 XX Last administered on 10/27/16 02: 31; Admin Dose 1 EA; Start 10/19/16 at 02:00 Miscellaneous Information 1 ea NOTE XX ; Start 10/18/16 at 22:30 Glucose (Glutose) 15 gm Q15M PRN PO DECREASED GLUCOSE; Start 10/18/16 at 22:30 Glucose (Glutose) 22.5 gm Q15M PRN PO DECREASED GLUCOSE; Start 10/18/16 at 22: 30 Dextrose (D50w Syringe) 25 ml Q15M PRN IV DECREASED GLUCOSE; Start 10/18/16 at 22:30 Dextrose (D50w Syringe) 50 ml Q15M PRN IV DECREASED GLUCOSE Last administered on 10/27/16 09:35; Admin Dose 50 ML; Start 10/18/16 at 22:30 Glucagon (Glucagen) 1 mg Q15M PRN IM DECREASED GLUCOSE; Start 10/18/16 at 22:30 Glucose (Glutose) 15 gm Q15M PRN BUCCAL DECREASED GLUCOSE; Start 10/18/16 at 22 :30 Linezolid (Zyvox) 600 mg BID PO Last administered on 11/02/16 10:26; Admin Dose 600 MG; Start 10/20/16 at 12:15 Aspirin (Halfprin) 81 mg DAILY PO Last administered on 11/02/16 10:25; Admin Dose 81 MG; Start 10/22/16 at 09:00 Lactobacillus Acidoph/Bulgaricus (Floranex) 1 tab BID PO Last administered on 10:25; Admin Dose 1 TAB; Start 10/22/16 at 21:00 Senna/Docusate Sodium (Senokot-S) 2 tab HS PO Last administered on 11/01/16 22: 01; Admin Dose 2 TAB; Start 10/22/16 at 21:00 Lactulose (Enulose) 20 gm TID PRN PO CONSTIPATION Last administered on 13:32; Admin Dose 20 GM; Start 10/23/16 at 17:30 Clonidine HCl 1 patch 1 patch Q7D TRANSDERM Last administered on 10/31/16 08:54 ; Admin Dose 1 PATCH; Start 10/24/16 at 09:00 Meropenem (Merrem 500 Mg/ 100 ml (Pmx)) 100 ml @ 200 mls/hr Q24H IVPB Last administered on 11/01/16 20:13; Admin Dose 200 MLS/HR; Start 10/26/16 at 21:00 Sodium Biphosphate/ Sodium Phosphate (Fleet Enema) 133 ml DAILY PRN [place] CONSTIPATION Last administered on 10/26/16 18:33; Admin Dose 133 ML; Start at 18:00 Hydromorphone HCl (Dilaudid WOODEN FENCE ERECTOR) 0 MG/HR CONTINUOUS RATE ... WOODEN FENCE ERECTOR IV Last administered on 11/01/16 19:19; Admin Dose 6 MG; Start 10/27/16 at 12:30 Heparin Sodium (Porcine) (Heparin (5000 Units/0.5 ml)) 5,000 unit BID SC Last administered on 11/02/16 10:31; Admin Dose 5,000 UNIT; Start 10/27/16 at 12:30 Naloxone HCl (Narcan) 0.2 mg Q2M PRN IV RR 8 BREATHS/MIN OR LESS; Start at 13:00 Oxycodone/ Acetaminophen (Percocet (5/ 325)) 2 tab Q4H PRN PO PAIN Last administered on 10/30/16 19:55; Admin Dose 2 TAB; Start 10/28/16 at 15:00 Insulin Glargine (Lantus) 4 unit DAILY@20 SC Last administered on 11/01/16 20: 12; Admin Dose 4 UNIT; Start 10/29/16 at 20:00 Benazepril HCl (Lotensin) 10 mg BID PO Last administered on 10/31/16 20:22; Admin Dose 10 MG; Start 10/29/16 at 21:00 Metronidazole (Flagyl) 500 mg Q8 PO Last administered on 11/02/16 05:32; Admin Dose 500 MG; Start 10/31/16 at 14:00 Nitroglycerin (Nitroglycerin (Sl Tab) 0.4 Mg) 1 tab Q5M PRN SL ANGINA Last administered on 11/01/16 21:24; Admin Dose 1 TAB; Start 11/01/16 at 21:30 Nitroglycerin (Nitroglycerin (Sl Tab) 0.4 Mg) 1 tab Q5M PRN SL CHEST PAIN; Start 11/01/16 at 22:30 LISA MERRITT MD Nov 02, 2016 11:46
--- NOTE | 2016-11-02 13:06 | PN ---
DATE: 11/02/2016 SUBJECTIVE: Patient developed acute respiratory distress this morning and is in the process of bein g transferred to ICU. He is alert, follows, on face mask, afebrile. VITAL SIGNS: Temperature 99, pulse 81, respirations 24, blood pressure 131/60, saturation 100 on 8 liters mask. LABORATORY: WBC 28, H 9 and 28.6, platelets 353, neutrophils 83.2. MICROBIOLOGY: Wound culture of his left lower extremity grew E. coli ESBL. ANTIMICROBIALS: The patient is on: 1. Meropenem. 2. Zyvox. 3. He also was started on Flagyl on 10/31/2016. DIAGNOSTICS: Latest chest x-ray was done this morning revealed slight worsening of CHF. PHYSICAL EXAMINATION: GENERAL: This is a well-developed, elderly man who is alert and comfortable on face mask. HEENT: Head atraumatic, normocephalic. Sclerae anicteric. Buccal mucosa dry. NECK: Supple. CHEST: Rise symmetrical. Breath sounds with bilateral crackles scattered throughout the lung field s. HEART: S1, S2. ABDOMEN: Soft. Bowel tones present. EXTREMITIES: Left lower extremity BKA wound VAC present. ASSESSMENT: 1. Sepsis. 2. Acute respiratory failure secondary to fluid overload, rule out aspiration or healthcare-acquire d pneumonia. 3. Bilateral lower extremity gangrene. 4. Severe peripheral vascular disease status post left below knee amputation removal of infected gr aft and wound VAC application. 5. End-stage renal disease, hemodialysis dependent. 6. Possible line sepsis, status post PermCath being removed yesterday. 7. Diabetes. PLAN: The patient became unstable in terms of his respiratory status and being transferred to ICU. He is on broad spectrum antibiotics, which we are going to continue. We are going to repeat blood cultures if he spikes fever. Follow recommendations of consultants. Dictated By: DARLENE MCKEE [employer] for NICOLE SANTANA/SIN Conf#: [id number] DID#: [id number]
[2016-11-02] MEDS ORDERED: HEPARIN 1000 UNITS/ML 10 ML INJ ONE (14:38)
[2016-11-02] MEDS ORDERED: HEPARIN 1000 UNITS/ML 10 ML INJ CATHETER ONE (15:00)
--- NOTE | 2016-11-02 15:06 | PN ---
Date/Time of Note Date/Time of Note DATE: 11/02/16 TIME: 15:04 Assessment/Plan VTE Prophylaxis VTE Prophylaxis Intervention: heparin Lines/Catheters IV Catheter Type (from Nrsg): Peripheral IV Urinary Cath still in place: Yes Reason Cath still needed: other (indicate) Assessment/Plan Chief Complaint/Hosp Course Assessment and plan 1. 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 Patient does have history of bypass on area that had thrombosed. Continue on heparin drip. 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 Also noted with right lower extremity gangrene. Tentative plan for angiogram of right lower extremity. Follow-up with vascular surgeon recommendations. Continue with analgesics. wound care per vascular surgeon. Continue the recommendations. Pain management physician consulted for further assistance. Await recommendations. cont with abx per ID ( ESBL in wound) 2. ESRD on dialysis. Continue on HD. Follow-up with nephrology recommendations 3. Hypertension. Continue on antihypertensives and adjust needed. Stable 4. Anemia of chronic disease. H&H stable. Monitor for now. 5. History of diabetes. Continue on insulin regimen. Will adjust as needed 6. CAD. Continue on antiplatelet therapy 7. Peripheral vascular disease. Continue aggressive medical management, vascular surgeon has been consulted 8. Acute respiratory distress. Likely secondary to fluid overload. Emergent hemodialysis as per nephrology, follow-up pulmonology recommendations Disposition and plan:. Tentative plan for angiogram of right lower extremity. Continue with career development consultant recommendations. cont with analgesics Problems: Subjective 24 Hr Interval Summary Free Text/Dictation Patient was found to have worsening of his shortness of breath this is likely secondary not obtaining his hemodialysis Vascular surgeon has been consulted for temporarily cath placement for immediate hemodialysis Patient has been transferred to ICU secondary to worsening of his breathing status Exam/Review of Systems Vital Signs Vitals Vital Signs Date Time Temp Pulse Resp B/P Pulse Ox O2 Delivery O2 Flow Rate FiO2 11/02/16 12:00 Nasal Cannula 3.0 11/02/16 12:00 80 11/02/16 12:00 19 11/02/16 08:55 99.0 131/60 100 Intake and Output 11/01/16 11/01/16 11/02/16 15:00 23:00 07:00 Intake Total 820 ml Output Total 0 ml 50 ml Balance 0 ml 770 ml Exam General: The patient is well-developed, Not in acute distress. HEENT: Atraumatic, normocephalic. The pupils are equal and round . Neck: Supple with full range of motion. Chest: Normal expansion of the thorax during inspiration Lungs: Decreased breath sounds bilateral lower lung field, rales bilaterally Heart: Normal S1-S2, Regular rhythm and rate. Abdomen: Soft , nontender, nondistended , bowel sounds are present. Extremities: Status post left lower extremity BKA with wound in the medial aspect of the stump, no active bleeding, no edema no cyanosis Neurologic: Normal mental status,The patient is awake, alert and oriented . Results Result Diagram: 11/02/16 0320 11/02/16 0320 Results 24 hrs Laboratory Tests Test 11/01/16 17:55 11/01/16 20:39 11/01/16 21:25 11/02/16 03:20 Bedside Glucose 146 85 D-Dimer 3094.80 H D-Dimer Comment Creatine Kinase 1221 H 1117 H Creatine Kinase Index 0.4 0.4 Creatinine Kinase MB (Mass) 5.06 H 4.77 H Troponin I 0.066 0.098 B-Type Natriuretic Peptide 511020 H White Blood Count 28.0 H Red Blood Count 2.98 L Hemoglobin 9.0 L Hematocrit 28.6 L Mean Corpuscular Volume 96.0 Mean Corpuscular Hemoglobin 30.2 Mean Corpuscular Hemoglobin Concent 31.5 L Red Cell Distribution Width 17.7 H Platelet Count 353 Mean Platelet Volume 11.5 H Neutrophils % 83.2 H Lymphocytes % 8.7 L Monocytes % 6.6 Eosinophils % 0.1 Basophils % 0.1 Nucleated Red Blood Cells % 0.0 Neutrophils # 23.3 H Lymphocytes # 2.5 Monocytes # 1.9 H Eosinophils # 0.0 Basophils # 0.0 Nucleated Red Blood Cells # 0.0 Sodium Level 132 L Potassium Level 5.6 H Chloride Level 90 L Carbon Dioxide Level 19 L Anion Gap 29 #H Blood Urea Nitrogen 90 H Creatinine 10.06 H Glucose Level 105 Calcium Level 7.2 L Test 11/02/16 07:45 11/02/16 12:11 Bedside Glucose 81 110 Medications Medications Current Medications Metoprolol Tartrate (Lopressor) 25 mg BID PO Last administered on 10/31/16t 20: 22; Admin Dose 25 MG; Start 10/18/16 at 19:21 Amlodipine Besylate (Norvasc) 10 mg DAILY PO Last administered on 10/31/16 08: 52; Admin Dose 10 MG; Start 10/19/16 at 09:00 Hydralazine HCl (Apresoline) 10 mg Q4H PRN IV SBP>150 mm Hg Last administered on 10/27/16 20:38; Admin Dose 10 MG; Start 10/18/16 at 20:00 Albuterol (Ventolin Hfa) 2 puff Q8 INH Last administered on 11/02/16 14:14; Admin Dose 2 PUFF; Start 10/18/16 at 22:30 Famotidine (Pepcid) 20 mg DAILY PO Last administered on 11/02/16 10:26; Admin Dose 20 MG; Start 10/19/16 at 09:00 Ondansetron HCl (Zofran Inj) 4 mg Q6H PRN IV NAUSEA AND/OR VOMITING; Start at 22:30 Acetaminophen (Tylenol Tab) 650 mg Q6H PRN PO PAIN LEVEL 1-3 OR FEVER Last administered on 11/01/16 02:36; Admin Dose 650 MG; Start 10/18/16 at 22:30 Docusate Sodium (Colace) 100 mg Q12H PRN PO CONSTIPATION Last administered on 18:01; Admin Dose 100 MG; Start 10/18/16 at 22:30 Bisacodyl (Dulcolax Supp) 10 mg DAILY PRN [place] CONSTIPATION Last administered on 10/26/16 07:04; Admin Dose 10 MG; Start 10/18/16 at 22:30 Diagnostic Test (Pha) (Accucheck) 1 ea 02 XX Last administered on 10/27/16 02: 31; Admin Dose 1 EA; Start 10/19/16 at 02:00 Miscellaneous Information 1 ea NOTE XX ; Start 10/18/16 at 22:30 Glucose (Glutose) 15 gm Q15M PRN PO DECREASED GLUCOSE; Start 10/18/16 at 22:30 Glucose (Glutose) 22.5 gm Q15M PRN PO DECREASED GLUCOSE; Start 10/18/16 at 22: 30 Dextrose (D50w Syringe) 25 ml Q15M PRN IV DECREASED GLUCOSE; Start 10/18/16 at 22:30 Dextrose (D50w Syringe) 50 ml Q15M PRN IV DECREASED GLUCOSE Last administered on 10/27/16 09:35; Admin Dose 50 ML; Start 10/18/16 at 22:30 Glucagon (Glucagen) 1 mg Q15M PRN IM DECREASED GLUCOSE; Start 10/18/16 at 22:30 Glucose (Glutose) 15 gm Q15M PRN BUCCAL DECREASED GLUCOSE; Start 10/18/16 at 22 :30 Linezolid (Zyvox) 600 mg BID PO Last administered on 11/02/16 10:26; Admin Dose 600 MG; Start 10/20/16 at 12:15 Aspirin (Halfprin) 81 mg DAILY PO Last administered on 11/02/16 10:25; Admin Dose 81 MG; Start 10/22/16 at 09:00 Lactobacillus Acidoph/Bulgaricus (Floranex) 1 tab BID PO Last administered on 10:25; Admin Dose 1 TAB; Start 10/22/16 at 21:00 Senna/Docusate Sodium (Senokot-S) 2 tab HS PO Last administered on 11/01/16 22: 01; Admin Dose 2 TAB; Start 10/22/16 at 21:00 Lactulose (Enulose) 20 gm TID PRN PO CONSTIPATION Last administered on 13:32; Admin Dose 20 GM; Start 10/23/16 at 17:30 Clonidine HCl 1 patch 1 patch Q7D TRANSDERM Last administered on 10/31/16 08:54 ; Admin Dose 1 PATCH; Start 10/24/16 at 09:00 Meropenem (Merrem 500 Mg/ 100 ml (Pmx)) 100 ml @ 200 mls/hr Q24H IVPB Last administered on 11/01/16 20:13; Admin Dose 200 MLS/HR; Start 10/26/16 at 21:00 Sodium Biphosphate/ Sodium Phosphate (Fleet Enema) 133 ml DAILY PRN [place] CONSTIPATION Last administered on 10/26/16 18:33; Admin Dose 133 ML; Start at 18:00 Hydromorphone HCl (Dilaudid BOX LOADER) 0 MG/HR CONTINUOUS RATE ... BOX LOADER IV Last administered on 11/01/16 19:19; Admin Dose 6 MG; Start 10/27/16 at 12:30 Heparin Sodium (Porcine) (Heparin (5000 Units/0.5 ml)) 5,000 unit BID SC Last administered on 11/02/16 10:31; Admin Dose 5,000 UNIT; Start 10/27/16 at 12:30 Naloxone HCl (Narcan) 0.2 mg Q2M PRN IV RR 8 BREATHS/MIN OR LESS; Start at 13:00 Oxycodone/ Acetaminophen (Percocet (5/ 325)) 2 tab Q4H PRN PO PAIN Last administered on 10/30/16 19:55; Admin Dose 2 TAB; Start 10/28/16 at 15:00 Insulin Glargine (Lantus) 4 unit DAILY@20 SC Last administered on 11/01/16 20: 12; Admin Dose 4 UNIT; Start 10/29/16 at 20:00 Benazepril HCl (Lotensin) 10 mg BID PO Last administered on 10/31/16 20:22; Admin Dose 10 MG; Start 10/29/16 at 21:00 Metronidazole (Flagyl) 500 mg Q8 PO Last administered on 11/02/16 14:14; Admin Dose 500 MG; Start 10/31/16 at 14:00 Nitroglycerin (Nitroglycerin (Sl Tab) 0.4 Mg) 1 tab Q5M PRN SL ANGINA Last administered on 11/01/16 21:24; Admin Dose 1 TAB; Start 11/01/16 at 21:30 Nitroglycerin (Nitroglycerin (Sl Tab) 0.4 Mg) 1 tab Q5M PRN SL CHEST PAIN; Start 11/01/16 at 22:30 OZZIE HERRERA MD Nov 02, 2016 15:06
--- NOTE | 2016-11-02 15:09 | OPR ---
Date/Time of Note Date/Time of Note DATE: 11/02/16 TIME: 15:06 Operative Report Free Text/Dictation DATE OF OPERATION: 11/02/2016 SURGEON: Bradley Carr MD PREOPERATIVE DIAGNOSIS: ESRD POSTOPERATIVE DIAGNOSIS: same ANESTHESIA: Local BLOOD LOSS: minimal COMPLICATIONS: None. ACCESS: Right common femoral vein INDICATIONS: This is a 65 year-old female with ESRD requiring dialysis and respiratory distress. Patient and family have been informed of the alternatives , risks, and benefits. Risks including but not limited to bleeding, thrombosis, embolization, myocardial infarction, , device malfunction, infection, pneumothorax, nephrotoxicity and patient has agreed to proceed. PROCEDURE: 1. Ultrasound guided access of right common femoral vein 2. Urgent Right common femoral vein non-tunneled hemodialysis catheter placement DESCRIPTION: The patient was in supine position in her ICU bed. Bed was placed in slight Trendelenburg position and the groin was prepped and draped with sterile technique. The central catheter was flushed with heparin to ensure function of each port. Landmarks were identified and the skin entry site was chosen using ultrasound guidance. The skin And subcutaneous tissue were anesthetized with 1% lidocaine. The vein was then located with a needle with a 10 mL syringe using ultrasound guidance. The needle was then directed towards the vein and was entered. The needle position was secured and syringe was removed. The hub was occluded to prevent venous air embolus. The guidewire was passed easily and the needle was removed while the wire was held in place. A small incision was then made at the point of the wire entry. The dilator was placed over the wire and the tract gently dilated. The catheter was fed over the wire, ensuring the wire exited from the port before advancing the catheter. The catheter was inserted to the desired depth and the wire removed. Each port was aspirated to ensure adequate blood flow and then flushed with heparinized saline solution. The catheter was secured in place with a 2-0 nylon suture and a sterile dressing was applied. The patient tolerated the procedure well and was in stable condition. All instrument, sponge and needle counts were correct 2. BRADLEY CARR MD Nov 02, 2016 15:09
--- NOTE | 2016-11-02 15:17 | PN ---
Date/Time of Note Date/Time of Note DATE: 11/02/16 TIME: 15:11 Assessment/Plan Lines/Catheters IV Catheter Type (from Nrs): Peripheral IV Correa in Place (from Nrs): Yes Assessment/Plan Chief Complaint/Hosp Course -Bilateral lower extremity atherosclerosis with gangrene: S/P BKA -LLE medial thigh wound: Changed wound vac today, will start wound management consult for vac change MWF. Patient may require stump debridement and exploration/possible AKA if leukocytosis does not resolve. (areas of new tenderness and erythema bye the knee is concerning for his ESBL infection) -Right lower extremity gangrene: will schedule patient for angiogram pending production laborer availability and resolution of WBC/leukocytosis -End-stage renal disease: New [place] catheter placed for respiratory distress and needing HD per nephrology -Optimize vascular status (BP meds, diet, nutrition, exercise, sugar control, antiplatelets). -Continue antibiotics - cultures of graft ESBL -Continue with wound vac for now -PT/OT OOB and FWB as tolerated -Appreciate cardiology evaluation -Discussed findings, plan and management with the patient and family at the bedside and they understand with certified local company flatbed truck driver. He understand every attempt has been made to salvage his limb and risk of limb loss with higher amputation is a possibility -Thank you for allowing us to participate in the care of your patient. Please call with any questions. Problems: Subjective 24 Hr Interval Summary pt having increased pain in the left knee area, he also has elevated leukocytosis, and respiratory distress Exam/Review of Systems Vital Signs Vitals Vital Signs Date Time Temp Pulse Resp B/P Pulse Ox O2 Delivery O2 Flow Rate FiO2 11/02/16 12:00 Nasal Cannula 3.0 11/02/16 12:00 80 11/02/16 12:00 19 11/02/16 08:55 99.0 131/60 100 Intake and Output 11/01/16 11/01/16 11/02/16 15:00 23:00 07:00 Intake Total 820 ml Output Total 0 ml 50 ml Balance 0 ml 770 ml Exam Free Text/Dictation GENERAL: Alert and oriented x3, PULMONARY: Clear to auscultation bilaterally. CARDIOVASCULAR: S1, S2 present. ABDOMEN: Soft, nontender, nondistended. Bowel sounds positive. EXTREMITIES: Right lower extremity palpable femoral pulse, nonpalpable pedal pulse. Motor, sensory intact. Cap refill 3 to 4 seconds. Gangrene of the first and second toe with surrounding erythema resolving and pain of the first toe improved Left lower extremity: Palpable femoral pulse, BKA stump with cap refill of 3 seconds, medial thigh with wound vac intact - medial and anterior stump with blister and eschar has developed with erythema, new tenderness by the knee and erythema, ricarda intact, Results Result Diagram: 11/02/16 0320 11/02/16 0320 CYNDI CARR MD Nov 02, 2016 15:17
[2016-11-02] MEDS: AMLODIPINE 10 MG TAB PO SCH (15:24)
[2016-11-02] MEDS: BENAZEPRIL 10 MG TAB PO SCH ×2 (15:24→20:20)
[2016-11-02] MEDS: METOPROLOL 25 MG TAB PO SCH ×2 (15:24→20:20)
[2016-11-02] MEDS: SENNA/DOCUSATE NA (8.6MG/50MG) TAB PO SCH (20:19)
[2016-11-02] MEDS: MEROPENEM 500 MG/100 ML (PMX) 100 ML IVPB SCH (20:35)
[2016-11-02] MEDS: INSULIN GLARGINE [LANtus] 3 ML PEN SC SCH (21:44)
[2016-11-03] VITALS (27 sets, daily range): BP systolic 101–141; BP diastolic 44–94; PULSE 72–89; RESP 10–23
[2016-11-03] MEDS: ACCU-CHEK XX SCH (01:31)
[2016-11-03 04:58] LABS: ADD SCAN DIFF NO
[2016-11-03 05:04] LABS: ABNORMAL IP MESSAGE 1; HEMATOCRIT 26.5 % (42.0-52.0); HEMOGLOBIN 8.7 g/dl (14.0-18.0); MEAN CORPUSCULAR HEMOGLOBIN 31.4 pg (29.0-33.0); MEAN CORPUSCULAR HGB CONC 32.8 g/dl (32.0-37.0); MEAN CORPUSCULAR VOLUME 95.7 fl (82.0-101.0); MEAN PLATELET VOLUME 11.7 fl (7.4-10.4); PLATELET COUNT 372 10^3/UL (140-415); RED BLOOD COUNT 2.77 10^6/ul (4.70-6.10); RED CELL DISTRIBUTION WIDTH 17.9 % (11.5-14.5); WHITE BLOOD COUNT 26.4 10^3/ul (4.8-10.8)
[2016-11-03] MEDS: ALBUTEROL HFA 8 GM INHALER INH SCH ×3 (05:04→22:00)
[2016-11-03 05:30] LABS: POTASSIUM 4.6 mmol/L (3.5-5.1)
[2016-11-03 05:32] LABS: CREATININE 8.09 mg/dl (0.61-1.24)
[2016-11-03 05:33] LABS: CALCIUM 7.3 mg/dl (8.4-10.2)
[2016-11-03] MEDS: metroNIDAZOLE 500 MG TAB PO SCH ×3 (06:30→21:41)
[2016-11-03] MEDS: INSULIN ASPART [NOVOLOG] 3 ML PEN SC SCH ×4 (07:19→21:00)
--- NOTE | 2016-11-03 08:07 | QN ---
Documentation Comment it seems the patient still has leukocytosis and after removing his wound vac this morning has developed gangrene of the medial thigh and BKA-stump incision. this is concerning for gas gangrene as there's also crepitus and erythema and pain in the knee area. will proceed with amputation. Discussed the findings with the patient and he understands all the risks and benefits and alternatives involved and has agreed sirena proceed CYNDI CARR MD Nov 03, 2016 08:07
[2016-11-03] MEDS: ASPIRIN (EC) 81 MG TAB PO SCH (08:20)
[2016-11-03] MEDS: LACTOBACILLUS CHEW TAB PO SCH ×2 (08:20→21:48)
[2016-11-03] MEDS: BENAZEPRIL 10 MG TAB PO SCH ×2 (08:21→21:42)
[2016-11-03] MEDS: METOPROLOL 25 MG TAB PO SCH ×2 (08:21→21:42)
[2016-11-03] MEDS: HEPARIN 5,000 UNIT/0.5 ML VIAL SC SCH ×2 (08:21→21:41)
[2016-11-03] MEDS: AMLODIPINE 10 MG TAB PO SCH (08:21)
[2016-11-03] MEDS: FAMOTIDINE 20 MG TAB PO SCH (08:21)
[2016-11-03] MEDS: ZYVOX 600 MG TAB PO SCH ×2 (08:21→21:48)
--- NOTE | 2016-11-03 10:21 | CONS ---
Date/Time of Note Date/Time of Note DATE: 11/03/16 TIME: 10:18 Assessment/Plan Assessment/Plan Additional Assessment/Plan 1. 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 Failed redo bypass.post-surgical intervention with thrombectomy, exploration of the above knee popliteal graft and debridement of left lower extremity wound with wound VAC application on 10/19/2016.- Not improving, plan for OR today 2. Severe stenosis of the right distal superficial femoral artery and occluded right posterior tibial artery. 3. End-stage renal disease on hemodialysis Tuesday, , Tuesday. 4. Accelerated hypertension. 5. Hyperlipidemia. 6. History of hypertension with peripheral arterial disease. 7. History of peripheral arterial disease status post left lower extremity bypass in September 2016. PLAN: s/p Removal of permacath, then pt went into Resp distress yesterday, required emergent Fernanda catheter placement and had a hD yesterday 3 L removed, plan for OR today -we will plan for HD today after surgery and also plan for HD tomorrow then he will be on TTS schedule will continue to follow up on patient Total Time spent in critical nephrology care is more than 45 minutes, communicated with family and Nursing staff at bedside Consultation Date/Type/Reason Admit Date/Time Oct 18, 2016 at 16:52 Initial Consult Date 10/18/2016 Type of Consultation: NEPHROLOGY Referring Provider: OZZIE HERRERA MD 24 HR Interval Summary Free Text/Dictation s/p fernanda catheter and had a HD yesterday, Plan for surgery today Exam/Review of Systems Vital Signs Vitals Vital Signs Date Time Temp Pulse Resp B/P Pulse Ox O2 Delivery O2 Flow Rate FiO2 11/03/16 08:03 Simple Mask 8.0 11/03/16 08:00 19 11/03/16 07:00 73 124/56 100 11/03/16 04:00 98.7 Intake and Output 11/02/16 11/02/16 11/03/16 15:00 23:00 07:00 Intake Total 0 ml 950 ml 0 ml Output Total 0 ml 3500 ml 10 ml Balance 0 ml -2550 ml -10 ml Exam GENERAL: awake, in resp distress HEENT: Head atraumatic, normocephalic. Sclerae anicteric. Buccal mucosa dry. NECK: Supple. CHEST: Rise symmetrical. Breath sounds with bilateral crackles scattered throughout the lung espinosa. HEART: S1, S2. ABDOMEN: Soft. Bowel tones present. EXTREMITIES: Left lower extremity BKA wound VAC present. Results Result Diagram: 11/03/16 0400 11/03/16 0400 Results 24 hrs Laboratory Tests Test 11/02/16 12:11 11/02/16 15:15 11/02/16 17:09 11/02/16 20:21 Bedside Glucose 110 107 117 Creatine Kinase 856 H Test 11/03/16 04:00 11/03/16 07:18 White Blood Count 26.4 H Red Blood Count 2.77 L Hemoglobin 8.7 L Hematocrit 26.5 L Mean Corpuscular Volume 95.7 Mean Corpuscular Hemoglobin 31.4 Mean Corpuscular Hemoglobin Concent 32.8 Red Cell Distribution Width 17.9 H Platelet Count 372 Mean Platelet Volume 11.7 H Sodium Level 137 Potassium Level 4.6 Chloride Level 100 # Carbon Dioxide Level 21 Anion Gap 21 #H Blood Urea Nitrogen 64 H Creatinine 8.09 H Glucose Level 119 Calcium Level 7.3 L Bedside Glucose 96 Medications Medications Current Medications Metoprolol Tartrate (Lopressor) 25 mg BID PO Last administered on 11/02/16 20: 20; Admin Dose 25 MG; Start 10/18/16 at 19:21 Amlodipine Besylate (Norvasc) 10 mg DAILY PO Last administered on 10/31/16 08: 52; Admin Dose 10 MG; Start 10/19/16 at 09:00 Hydralazine HCl (Apresoline) 10 mg Q4H PRN IV SBP>150 mm Hg Last administered on 10/27/16 20:38; Admin Dose 10 MG; Start 10/18/16 at 20:00 Albuterol (Ventolin Hfa) 2 puff Q8 INH Last administered on 11/03/16 05:04; Admin Dose 2 PUFF; Start 10/18/16 at 22:30 Famotidine (Pepcid) 20 mg DAILY PO Last administered on 11/02/16 10:26; Admin Dose 20 MG; Start 10/19/16 at 09:00 Ondansetron HCl (Zofran Inj) 4 mg Q6H PRN IV NAUSEA AND/OR VOMITING; Start at 22:30 Acetaminophen (Tylenol Tab) 650 mg Q6H PRN PO PAIN LEVEL 1-3 OR FEVER Last administered on 11/01/16 02:36; Admin Dose 650 MG; Start 10/18/16 at 22:30 Docusate Sodium (Colace) 100 mg Q12H PRN PO CONSTIPATION Last administered on 18:01; Admin Dose 100 MG; Start 10/18/16 at 22:30 Bisacodyl (Dulcolax Supp) 10 mg DAILY PRN [place] CONSTIPATION Last administered on 10/26/16 07:04; Admin Dose 10 MG; Start 10/18/16 at 22:30 Diagnostic Test (Pha) (Accucheck) 1 ea 02 XX Last administered on 10/27/16 02: 31; Admin Dose 1 EA; Start 10/19/16 at 02:00 Miscellaneous Information 1 ea NOTE XX ; Start 10/18/16 at 22:30 Glucose (Glutose) 15 gm Q15M PRN PO DECREASED GLUCOSE; Start 10/18/16 at 22:30 Glucose (Glutose) 22.5 gm Q15M PRN PO DECREASED GLUCOSE; Start 10/18/16 at 22: 30 Dextrose (D50w Syringe) 25 ml Q15M PRN IV DECREASED GLUCOSE; Start 10/18/16 at 22:30 Dextrose (D50w Syringe) 50 ml Q15M PRN IV DECREASED GLUCOSE Last administered on 10/27/16 09:35; Admin Dose 50 ML; Start 10/18/16 at 22:30 Glucagon (Glucagen) 1 mg Q15M PRN IM DECREASED GLUCOSE; Start 10/18/16 at 22:30 Glucose (Glutose) 15 gm Q15M PRN BUCCAL DECREASED GLUCOSE; Start 10/18/16 at 22 :30 Linezolid (Zyvox) 600 mg BID PO Last administered on 11/02/16 20:19; Admin Dose 600 MG; Start 10/20/16 at 12:15 Aspirin (Halfprin) 81 mg DAILY PO Last administered on 11/02/16 10:25; Admin Dose 81 MG; Start 10/22/16 at 09:00 Lactobacillus Acidoph/Bulgaricus (Floranex) 1 tab BID PO Last administered on 20:18; Admin Dose 1 TAB; Start 10/22/16 at 21:00 Senna/Docusate Sodium (Senokot-S) 2 tab HS PO Last administered on 11/02/16 20: 19; Admin Dose 2 TAB; Start 10/22/16 at 21:00 Lactulose (Enulose) 20 gm TID PRN PO CONSTIPATION Last administered on 13:32; Admin Dose 20 GM; Start 10/23/16 at 17:30 Clonidine HCl 1 patch 1 patch Q7D TRANSDERM Last administered on 10/31/16 08:54 ; Admin Dose 1 PATCH; Start 10/24/16 at 09:00 Meropenem (Merrem 500 Mg/ 100 ml (Pmx)) 100 ml @ 200 mls/hr Q24H IVPB Last administered on 11/02/16 20:35; Admin Dose 200 MLS/HR; Start 10/26/16 at 21:00 Sodium Biphosphate/ Sodium Phosphate (Fleet Enema) 133 ml DAILY PRN [place] CONSTIPATION Last administered on 10/26/16 18:33; Admin Dose 133 ML; Start at 18:00 Hydromorphone HCl (Dilaudid STOVE TENDER) 0 MG/HR CONTINUOUS RATE ... STOVE TENDER IV Last administered on 11/01/16 19:19; Admin Dose 6 MG; Start 10/27/16 at 12:30 Heparin Sodium (Porcine) (Heparin (5000 Units/0.5 ml)) 5,000 unit BID SC Last administered on 11/02/16 20:28; Admin Dose 5,000 UNIT; Start 10/27/16 at 12:30 Naloxone HCl (Narcan) 0.2 mg Q2M PRN IV RR 8 BREATHS/MIN OR LESS; Start at 13:00 Oxycodone/ Acetaminophen (Percocet (5/ 325)) 2 tab Q4H PRN PO PAIN Last administered on 10/30/16 19:55; Admin Dose 2 TAB; Start 10/28/16 at 15:00 Insulin Glargine (Lantus) 4 unit DAILY@20 SC Last administered on 11/02/16 21: 44; Admin Dose 4 UNIT; Start 10/29/16 at 20:00 Benazepril HCl (Lotensin) 10 mg BID PO Last administered on 11/02/16 20:20; Admin Dose 10 MG; Start 10/29/16 at 21:00 Metronidazole (Flagyl) 500 mg Q8 PO Last administered on 11/03/16 06:30; Admin Dose 500 MG; Start 10/31/16 at 14:00 Nitroglycerin (Nitroglycerin (Sl Tab) 0.4 Mg) 1 tab Q5M PRN SL ANGINA Last administered on 11/01/16 21:24; Admin Dose 1 TAB; Start 11/01/16 at 21:30 Nitroglycerin (Nitroglycerin (Sl Tab) 0.4 Mg) 1 tab Q5M PRN SL CHEST PAIN; Start 11/01/16 at 22:30 LISA MERRITT MD Nov 03, 2016 10:20
[2016-11-03 10:24] LABS: BURR CELLS OCCASIONAL; LYMPHOCYTES # 1.3 10^3/ul (0.8-2.9); MONOCYTE # 2.4 10^3/ul (0.3-0.9); NEUTROPHIL # 21.9 10^3/ul (1.6-7.5)
--- NOTE | 2016-11-03 11:09 | PN ---
Date/Time of Note Date/Time of Note DATE: 11/03/16 TIME: 11:05 Assessment/Plan VTE Prophylaxis VTE Prophylaxis Intervention: other Lines/Catheters IV Catheter Type (from Nrsg): Peripheral IV Urinary Cath still in place: Yes Reason Cath still needed: other (indicate) Assessment/Plan Chief Complaint/Hosp Course Assessment and plan 1. 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 Patient does have history of bypass on area that had thrombosed. 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 Also noted with right lower extremity gangrene. Plan for left lower extremity AKA today, follow-up with vascular surgeon recommendations. Continue with analgesics. wound care per vascular surgeon . Pain management physician consulted for further assistance. Await recommendations. cont with abx per ID (ESBL in wound) 2. ESRD on dialysis. Continue on HD. Follow-up with nephrology recommendations 3. Hypertension. Continue on antihypertensives and adjust needed. Stable 4. Anemia of chronic disease. H&H stable. Monitor for now. 5. History of diabetes. Continue on insulin regimen. Will adjust as needed 6. CAD. Continue on antiplatelet therapy 7. Peripheral vascular disease. Continue aggressive medical management, vascular surgeon has been consulted 8. Acute respiratory distress. Likely secondary to fluid overload. Resolved status post urgent hemodialysis Disposition and plan:. Tentative plan for left lower extremity AKA. Continue with test consultant recommendations. cont with analgesics Problems: Subjective 24 Hr Interval Summary Free Text/Dictation Patient is status post Urgent Right common femoral vein non-tunneled hemodialysis catheter placement on 11/02/2016 And hemodialysis on 11/02/2016 Respiratory distress has improved significantly Plan for left lower extremity AKA today N.p.o. Exam/Review of Systems Vital Signs Vitals Vital Signs Date Time Temp Pulse Resp B/P Pulse Ox O2 Delivery O2 Flow Rate FiO2 11/03/16 10:00 74 17 128/55 100 Mask 8.0 11/03/16 04:00 98.7 Intake and Output 11/02/16 11/02/16 11/03/16 15:00 23:00 07:00 Intake Total 0 ml 950 ml 0 ml Output Total 0 ml 3500 ml 10 ml Balance 0 ml -2550 ml -10 ml Exam General: The patient is well-developed, Not in acute distress. HEENT: Atraumatic, normocephalic. The pupils are equal and round . Neck: Supple with full range of motion. Chest: Normal expansion of the thorax during inspiration Lungs: Decreased breath sounds bilateral lower lung field with improvement from yesterday lung exam Heart: Normal S1-S2, Regular rhythm and rate. Abdomen: Soft , nontender, nondistended , bowel sounds are present. Extremities: Partially necrotic skin at the stump with open wound in medial aspect of the leg, no edema no cyanosis Neurologic: Normal mental status,The patient is awake, alert and oriented . Results Result Diagram: 11/03/16 0400 11/03/16 0400 Results 24 hrs Laboratory Tests Test 11/02/16 12:11 11/02/16 15:15 11/02/16 17:09 11/02/16 20:21 Bedside Glucose 110 107 117 Creatine Kinase 856 H Test 11/03/16 04:00 11/03/16 07:18 White Blood Count 26.4 H Red Blood Count 2.77 L Hemoglobin 8.7 L Hematocrit 26.5 L Mean Corpuscular Volume 95.7 Mean Corpuscular Hemoglobin 31.4 Mean Corpuscular Hemoglobin Concent 32.8 Red Cell Distribution Width 17.9 H Platelet Count 372 Mean Platelet Volume 11.7 H Neutrophils % 83.0 H Band Neutrophils % 3.0 Lymphocytes % 5.0 L Monocytes % 9.0 Neutrophils # 21.9 H Lymphocytes # 1.3 Monocytes # 2.4 H Differential Comment MANUAL DIFF Large Platelets OCCASIONAL Sodium Level 137 Potassium Level 4.6 Chloride Level 100 # Carbon Dioxide Level 21 Anion Gap 21 #H Blood Urea Nitrogen 64 H Creatinine 8.09 H Glucose Level 119 Calcium Level 7.3 L Bedside Glucose 96 Medications Medications Current Medications Metoprolol Tartrate (Lopressor) 25 mg BID PO Last administered on 11/02/16 20: 20; Admin Dose 25 MG; Start 10/18/16 at 19:21 Amlodipine Besylate (Norvasc) 10 mg DAILY PO Last administered on 10/31/16 08: 52; Admin Dose 10 MG; Start 10/19/16 at 09:00 Hydralazine HCl (Apresoline) 10 mg Q4H PRN IV SBP>150 mm Hg Last administered on 10/27/16 20:38; Admin Dose 10 MG; Start 10/18/16 at 20:00 Albuterol (Ventolin Hfa) 2 puff Q8 INH Last administered on 11/03/16 05:04; Admin Dose 2 PUFF; Start 10/18/16 at 22:30 Famotidine (Pepcid) 20 mg DAILY PO Last administered on 11/02/16 10:26; Admin Dose 20 MG; Start 10/19/16 at 09:00 Ondansetron HCl (Zofran Inj) 4 mg Q6H PRN IV NAUSEA AND/OR VOMITING; Start at 22:30 Acetaminophen (Tylenol Tab) 650 mg Q6H PRN PO PAIN LEVEL 1-3 OR FEVER Last administered on 11/01/16 02:36; Admin Dose 650 MG; Start 10/18/16 at 22:30 Docusate Sodium (Colace) 100 mg Q12H PRN PO CONSTIPATION Last administered on 18:01; Admin Dose 100 MG; Start 10/18/16 at 22:30 Bisacodyl (Dulcolax Supp) 10 mg DAILY PRN [place] CONSTIPATION Last administered on 10/26/16 07:04; Admin Dose 10 MG; Start 10/18/16 at 22:30 Diagnostic Test (Pha) (Accucheck) 1 ea 02 XX Last administered on 10/27/16 02: 31; Admin Dose 1 EA; Start 10/19/16 at 02:00 Miscellaneous Information 1 ea NOTE XX ; Start 10/18/16 at 22:30 Glucose (Glutose) 15 gm Q15M PRN PO DECREASED GLUCOSE; Start 10/18/16 at 22:30 Glucose (Glutose) 22.5 gm Q15M PRN PO DECREASED GLUCOSE; Start 10/18/16 at 22: 30 Dextrose (D50w Syringe) 25 ml Q15M PRN IV DECREASED GLUCOSE; Start 10/18/16 at 22:30 Dextrose (D50w Syringe) 50 ml Q15M PRN IV DECREASED GLUCOSE Last administered on 10/27/16 09:35; Admin Dose 50 ML; Start 10/18/16 at 22:30 Glucagon (Glucagen) 1 mg Q15M PRN IM DECREASED GLUCOSE; Start 10/18/16 at 22:30 Glucose (Glutose) 15 gm Q15M PRN BUCCAL DECREASED GLUCOSE; Start 10/18/16 at 22 :30 Linezolid (Zyvox) 600 mg BID PO Last administered on 11/02/16 20:19; Admin Dose 600 MG; Start 10/20/16 at 12:15 Aspirin (Halfprin) 81 mg DAILY PO Last administered on 11/02/16 10:25; Admin Dose 81 MG; Start 10/22/16 at 09:00 Lactobacillus Acidoph/Bulgaricus (Floranex) 1 tab BID PO Last administered on 20:18; Admin Dose 1 TAB; Start 10/22/16 at 21:00 Senna/Docusate Sodium (Senokot-S) 2 tab HS PO Last administered on 11/02/16 20: 19; Admin Dose 2 TAB; Start 10/22/16 at 21:00 Lactulose (Enulose) 20 gm TID PRN PO CONSTIPATION Last administered on 13:32; Admin Dose 20 GM; Start 10/23/16 at 17:30 Clonidine HCl 1 patch 1 patch Q7D TRANSDERM Last administered on 10/31/16 08:54 ; Admin Dose 1 PATCH; Start 10/24/16 at 09:00 Meropenem (Merrem 500 Mg/ 100 ml (Pmx)) 100 ml @ 200 mls/hr Q24H IVPB Last administered on 11/02/16 20:35; Admin Dose 200 MLS/HR; Start 10/26/16 at 21:00 Sodium Biphosphate/ Sodium Phosphate (Fleet Enema) 133 ml DAILY PRN [place] CONSTIPATION Last administered on 10/26/16 18:33; Admin Dose 133 ML; Start at 18:00 Hydromorphone HCl (Dilaudid SCIENTIFIC DIVER) 0 MG/HR CONTINUOUS RATE ... SCIENTIFIC DIVER IV Last administered on 11/01/16 19:19; Admin Dose 6 MG; Start 10/27/16 at 12:30 Heparin Sodium (Porcine) (Heparin (5000 Units/0.5 ml)) 5,000 unit BID SC Last administered on 11/02/16 20:28; Admin Dose 5,000 UNIT; Start 10/27/16 at 12:30 Naloxone HCl (Narcan) 0.2 mg Q2M PRN IV RR 8 BREATHS/MIN OR LESS; Start at 13:00 Oxycodone/ Acetaminophen (Percocet (5/ 325)) 2 tab Q4H PRN PO PAIN Last administered on 10/30/16 19:55; Admin Dose 2 TAB; Start 10/28/16 at 15:00 Insulin Glargine (Lantus) 4 unit DAILY@20 SC Last administered on 11/02/16 21: 44; Admin Dose 4 UNIT; Start 10/29/16 at 20:00 Benazepril HCl (Lotensin) 10 mg BID PO Last administered on 11/02/16 20:20; Admin Dose 10 MG; Start 10/29/16 at 21:00 Metronidazole (Flagyl) 500 mg Q8 PO Last administered on 11/03/16 06:30; Admin Dose 500 MG; Start 10/31/16 at 14:00 Nitroglycerin (Nitroglycerin (Sl Tab) 0.4 Mg) 1 tab Q5M PRN SL ANGINA Last administered on 11/01/16 21:24; Admin Dose 1 TAB; Start 11/01/16 at 21:30 Nitroglycerin (Nitroglycerin (Sl Tab) 0.4 Mg) 1 tab Q5M PRN SL CHEST PAIN; Start 11/01/16 at 22:30 OZZIE HERRERA MD Nov 03, 2016 11:09
--- NOTE | 2016-11-03 11:50 | CONS ---
Date/Time of Note Date/Time of Note DATE: 11/03/16 TIME: 11:46 Assessment/Plan Assessment/Plan Chief Complaint/Hosp Course IMPRESSION: 1. Preoperative evaluation prior to lower extremity vascular surgery, possible amputation.-Now s/p LLE vascular surgery with failed graft and now Post-op s/p LE amputation 2. Hypertension, uncontrolled. 3. Abnormal electrocardiogram, assess for acute coronary syndrome. 4. Dyslipidemia. 5. Peripheral arterial disease, s/p LE amputation 6. Lower extremity nonhealing ulceration of the toe. 7. PNA 8. End-stage renal disease on hemodialysis. 9. Anemia. 10. Leukocytosis. 11. Cardiomyopathy-LVEF 40-45%-negative trop x 3 since admit 12. CHest ytrm-Byin-vn now resolved. Trop negative x 2 post epsiode/EKG 10/29 with lateral TWI(no sig changes)-no recurrence Recc: -Tele -Continue current anti-hypertensives as tolerated when able to take PO's -Local wound care/abx's and f/u cx data -Pain control -Continue ASA -HD for volume removal Problems: Consultation Date/Type/Reason Admit Date/Time Oct 18, 2016 at 16:52 Initial Consult Date 10/19/2016 Type of Consultation: Cardiology Reason for Consultation Pre-op Referring Provider: OZZIE HERRERA MD Exam/Review of Systems Vital Signs Vitals Vital Signs Date Time Temp Pulse Resp B/P Pulse Ox O2 Delivery O2 Flow Rate FiO2 11/03/16 11:00 75 18 105/44 95 Mask 8.0 11/03/16 04:00 98.7 Intake and Output 11/02/16 11/02/16 11/03/16 15:00 23:00 07:00 Intake Total 0 ml 950 ml 0 ml Output Total 0 ml 3500 ml 10 ml Balance 0 ml -2550 ml -10 ml Exam Review of Systems: CONSTITUTIONAL: No fevers, chills. PULMONARY: No sob CARDIOVASCULAR: No chest pain/palpitations GASTROINTESTINAL: No nausea/vomiting. GENITOURINARY: No hematuria/dysuria. MUSCULOSKELETAL: No myagias/arthalgias. PSYCHIATRIC: The patient denies depression. NEUROLOGIC: No weakness Constitutional: alert Psych: no complaints Head: normocephalic ENMT: mucosa pink and moist Neck: jvd, supple Respiratory: diminished breath sounds (at bases/B) Cardiovascular: regular rate and rhythm Gastrointestinal: non-tender, soft Musculoskeletal: muscle tone Extremities: other (s/p LE amputation) Neurological: other Results Result Diagram: 11/03/16 0400 11/03/16 0400 Results 24 hrs Laboratory Tests Test 11/02/16 12:11 11/02/16 15:15 11/02/16 17:09 11/02/16 20:21 Bedside Glucose 110 107 117 Creatine Kinase 856 H Test 11/03/16 04:00 11/03/16 07:18 11/03/16 11:10 White Blood Count 26.4 H Red Blood Count 2.77 L Hemoglobin 8.7 L Hematocrit 26.5 L Mean Corpuscular Volume 95.7 Mean Corpuscular Hemoglobin 31.4 Mean Corpuscular Hemoglobin Concent 32.8 Red Cell Distribution Width 17.9 H Platelet Count 372 Mean Platelet Volume 11.7 H Neutrophils % 83.0 H Band Neutrophils % 3.0 Lymphocytes % 5.0 L Monocytes % 9.0 Neutrophils # 21.9 H Lymphocytes # 1.3 Monocytes # 2.4 H Differential Comment MANUAL DIFF Large Platelets OCCASIONAL Sodium Level 137 Potassium Level 4.6 Chloride Level 100 # Carbon Dioxide Level 21 Anion Gap 21 #H Blood Urea Nitrogen 64 H Creatinine 8.09 H Glucose Level 119 Calcium Level 7.3 L Bedside Glucose 96 81 Medications Medications Current Medications Metoprolol Tartrate (Lopressor) 25 mg BID PO Last administered on 11/02/16 20: 20; Admin Dose 25 MG; Start 10/18/16 at 19:21 Amlodipine Besylate (Norvasc) 10 mg DAILY PO Last administered on 10/31/16 08: 52; Admin Dose 10 MG; Start 10/19/16 at 09:00 Hydralazine HCl (Apresoline) 10 mg Q4H PRN IV SBP>150 mm Hg Last administered on 10/27/16 20:38; Admin Dose 10 MG; Start 10/18/16 at 20:00 Albuterol (Ventolin Hfa) 2 puff Q8 INH Last administered on 11/03/16 05:04; Admin Dose 2 PUFF; Start 10/18/16 at 22:30 Famotidine (Pepcid) 20 mg DAILY PO Last administered on 11/02/16 10:26; Admin Dose 20 MG; Start 10/19/16 at 09:00 Ondansetron HCl (Zofran Inj) 4 mg Q6H PRN IV NAUSEA AND/OR VOMITING; Start at 22:30 Acetaminophen (Tylenol Tab) 650 mg Q6H PRN PO PAIN LEVEL 1-3 OR FEVER Last administered on 11/01/16 02:36; Admin Dose 650 MG; Start 10/18/16 at 22:30 Docusate Sodium (Colace) 100 mg Q12H PRN PO CONSTIPATION Last administered on 18:01; Admin Dose 100 MG; Start 10/18/16 at 22:30 Bisacodyl (Dulcolax Supp) 10 mg DAILY PRN [place] CONSTIPATION Last administered on 10/26/16 07:04; Admin Dose 10 MG; Start 10/18/16 at 22:30 Diagnostic Test (Pha) (Accucheck) 1 ea 02 XX Last administered on 10/27/16 02: 31; Admin Dose 1 EA; Start 10/19/16 at 02:00 Miscellaneous Information 1 ea NOTE XX ; Start 10/18/16 at 22:30 Glucose (Glutose) 15 gm Q15M PRN PO DECREASED GLUCOSE; Start 10/18/16 at 22:30 Glucose (Glutose) 22.5 gm Q15M PRN PO DECREASED GLUCOSE; Start 10/18/16 at 22: 30 Dextrose (D50w Syringe) 25 ml Q15M PRN IV DECREASED GLUCOSE; Start 10/18/16 at 22:30 Dextrose (D50w Syringe) 50 ml Q15M PRN IV DECREASED GLUCOSE Last administered on 10/27/16 09:35; Admin Dose 50 ML; Start 10/18/16 at 22:30 Glucagon (Glucagen) 1 mg Q15M PRN IM DECREASED GLUCOSE; Start 10/18/16 at 22:30 Glucose (Glutose) 15 gm Q15M PRN BUCCAL DECREASED GLUCOSE; Start 10/18/16 at 22 :30 Linezolid (Zyvox) 600 mg BID PO Last administered on 11/02/16 20:19; Admin Dose 600 MG; Start 10/20/16 at 12:15 Aspirin (Halfprin) 81 mg DAILY PO Last administered on 11/02/16 10:25; Admin Dose 81 MG; Start 10/22/16 at 09:00 Lactobacillus Acidoph/Bulgaricus (Floranex) 1 tab BID PO Last administered on 20:18; Admin Dose 1 TAB; Start 10/22/16 at 21:00 Senna/Docusate Sodium (Senokot-S) 2 tab HS PO Last administered on 11/02/16 20: 19; Admin Dose 2 TAB; Start 10/22/16 at 21:00 Lactulose (Enulose) 20 gm TID PRN PO CONSTIPATION Last administered on 13:32; Admin Dose 20 GM; Start 10/23/16 at 17:30 Clonidine HCl 1 patch 1 patch Q7D TRANSDERM Last administered on 10/31/16 08:54 ; Admin Dose 1 PATCH; Start 10/24/16 at 09:00 Meropenem (Merrem 500 Mg/ 100 ml (Pmx)) 100 ml @ 200 mls/hr Q24H IVPB Last administered on 11/02/16 20:35; Admin Dose 200 MLS/HR; Start 10/26/16 at 21:00 Sodium Biphosphate/ Sodium Phosphate (Fleet Enema) 133 ml DAILY PRN [place] CONSTIPATION Last administered on 10/26/16 18:33; Admin Dose 133 ML; Start at 18:00 Hydromorphone HCl (Dilaudid LOBBY CONCIERGE) 0 MG/HR CONTINUOUS RATE ... LOBBY CONCIERGE IV Last administered on 11/01/16 19:19; Admin Dose 6 MG; Start 10/27/16 at 12:30 Heparin Sodium (Porcine) (Heparin (5000 Units/0.5 ml)) 5,000 unit BID SC Last administered on 11/02/16 20:28; Admin Dose 5,000 UNIT; Start 10/27/16 at 12:30 Naloxone HCl (Narcan) 0.2 mg Q2M PRN IV RR 8 BREATHS/MIN OR LESS; Start at 13:00 Oxycodone/ Acetaminophen (Percocet (5/ 325)) 2 tab Q4H PRN PO PAIN Last administered on 10/30/16 19:55; Admin Dose 2 TAB; Start 10/28/16 at 15:00 Insulin Glargine (Lantus) 4 unit DAILY@20 SC Last administered on 11/02/16 21: 44; Admin Dose 4 UNIT; Start 10/29/16 at 20:00 Benazepril HCl (Lotensin) 10 mg BID PO Last administered on 11/02/16 20:20; Admin Dose 10 MG; Start 10/29/16 at 21:00 Metronidazole (Flagyl) 500 mg Q8 PO Last administered on 11/03/16 06:30; Admin Dose 500 MG; Start 10/31/16 at 14:00 Nitroglycerin (Nitroglycerin (Sl Tab) 0.4 Mg) 1 tab Q5M PRN SL ANGINA Last administered on 11/01/16 21:24; Admin Dose 1 TAB; Start 11/01/16 at 21:30 Nitroglycerin (Nitroglycerin (Sl Tab) 0.4 Mg) 1 tab Q5M PRN SL CHEST PAIN; Start 11/01/16 at 22:30 KAYLEE WILSON Nov 03, 2016 11:50
[2016-11-03] MEDS ORDERED: POLYMYXIN/BACITRACIN 1L IRRIG ONE (13:41)
--- NOTE | 2016-11-03 13:54 | PN ---
DATE: 11/03/2016 SUBJECTIVE: Patient is on face mask, lying comfortably in bed. He is sleeping soundly at bedside. 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 Again, looks comfortable. VITAL SIGNS: Temperature 98.7, pulse 75, respirations 17, blood pressure 128/54 , saturation 100 on 8 liters face mask. WBC 26.4, H and H 8.7 and 26.5, platelets 372, neutrophils 83. ANTIMICROBIALS: The patient remains on Zyvox and Merrem, also on Flagyl. DIAGNOSTICS: Chest x-ray from yesterday revealed significant worsening CHF. PHYSICAL EXAMINATION: GENERAL: This is a well-developed elderly man who is in no distress. HEENT: Head atraumatic, normocephalic. Sclerae anicteric. Buccal mucosa dry. NECK: Supple. CHEST: Rise symmetrical. Breath sounds diminished to bases. HEART: S1, S2. ABDOMEN: Soft. Bowel tones present. EXTREMITIES: Left lower extremity cyanosis. Wound VAC present. ASSESSMENT: 1. Sepsis. 2. Bilateral lower extremity gangrene. 3. Status post left below knee amputation with infected graft removal and culture grew Escherichia coli extended-spectrum beta-lactamase. 4. Acute respiratory failure secondary to fluid overload. 5. End-stage renal disease, hemodialysis dependent. 6. Diabetes. PLAN: The patient remains unchanged. As per discussion with Dr. Quintero, he had developed gas gangrene of the L knee and plan to take him back to surgery. He is on broad spectrum antibiotics, which we are going to continue. He had a new right femoral Usama catheter placed yesterday. Dictated By: DARLENE MCKEE BROADCAST TRAFFIC COORDINATOR for NICOLE SANTANA/SIN Conf#: [id number] DID#: [id number]
[2016-11-03] MEDS ORDERED: ETOMIDATE 20 MG INJ ONE (14:19)
[2016-11-03] MEDS ORDERED: PHENYLephrine (100 MCG/ML) 5ML SYG ONE ×2 (14:20→15:35)
[2016-11-03] MEDS ORDERED: ONDANSETRON 4 MG INJ ONE (14:36)
[2016-11-03] MEDS ORDERED: ROPIVACAINE 0.2% 20 ML VIAL ONE ×2 (15:00→15:44)
[2016-11-03] MEDS: HYDROmorphONE 0.2 MG/ML PCA IV SCH (17:43)
[2016-11-03] MEDS ORDERED: ALTEPLASE (CATHFLO) 2 MG INJ CATHETER ONE ×2 (18:00)
[2016-11-03] MEDS: OXYCODONE/ACETAMINOPHEN (5/325) TAB PO PRN (18:56)
[2016-11-03] MEDS: HYDROmorphONE 2 MG/ML SYG IV PRN (19:25)
[2016-11-03 20:31] LABS: ADD SCAN DIFF NO
[2016-11-03 20:33] LABS: ABNORMAL IP MESSAGE 1; BASOPHIL # 0.1 10^3/ul (0.0-0.1); BASOPHILS % 0.2 % (0.0-2.0); EOSINOPHILS # 0.1 10^3/ul (0.0-0.5); EOSINOPHILS % 0.4 % (0.0-7.0); HEMATOCRIT 28.2 % (42.0-52.0); HEMOGLOBIN 8.9 g/dl (14.0-18.0); LYMPHOCYTES % 8.4 % (15.0-51.0); MEAN CORPUSCULAR HEMOGLOBIN 30.6 pg (29.0-33.0); MEAN CORPUSCULAR HGB CONC 31.6 g/dl (32.0-37.0); MEAN CORPUSCULAR VOLUME 96.9 fl (82.0-101.0); MEAN PLATELET VOLUME 10.7 fl (7.4-10.4); MONOCYTE # 1.4 10^3/ul (0.3-0.9); NEUTROPHIL # 20.1 10^3/ul (1.6-7.5); NEUTROPHILS % 84.1 % (39.0-77.0); PLATELET COUNT 344 10^3/UL (140-415); RED BLOOD COUNT 2.91 10^6/ul (4.70-6.10); RED CELL DISTRIBUTION WIDTH 18.3 % (11.5-14.5); WHITE BLOOD COUNT 23.9 10^3/ul (4.8-10.8)
[2016-11-03] MEDS: SENNA/DOCUSATE NA (8.6MG/50MG) TAB PO SCH (21:43)
[2016-11-03] MEDS: MEROPENEM 500 MG/100 ML (PMX) 100 ML IVPB SCH (22:22)
[2016-11-03] MEDS: INSULIN GLARGINE [LANtus] 3 ML PEN SC SCH (22:27)
[2016-11-04] VITALS (33 sets, daily range): BP systolic 110–143; BP diastolic 50–82; PULSE 72–88; RESP 13–24
[2016-11-04] MEDS: ACCU-CHEK XX SCH (02:00)
[2016-11-04] MEDS: HYDROmorphONE 0.2 MG/ML PCA IV SCH ×2 (03:16→15:30)
[2016-11-04 05:00] LABS: ADD SCAN DIFF NO
[2016-11-04] MEDS: HYDROmorphONE 2 MG/ML SYG IV PRN ×3 (05:05→20:35)
[2016-11-04 05:27] LABS: ABNORMAL IP MESSAGE 1; HEMATOCRIT 29.2 % (42.0-52.0); HEMOGLOBIN 9.3 g/dl (14.0-18.0); MEAN CORPUSCULAR HEMOGLOBIN 31.1 pg (29.0-33.0); MEAN CORPUSCULAR HGB CONC 31.8 g/dl (32.0-37.0); MEAN CORPUSCULAR VOLUME 97.7 fl (82.0-101.0); MEAN PLATELET VOLUME 11.8 fl (7.4-10.4); PLATELET COUNT 389 10^3/UL (140-415); RED BLOOD COUNT 2.99 10^6/ul (4.70-6.10); RED CELL DISTRIBUTION WIDTH 18.6 % (11.5-14.5); WHITE BLOOD COUNT 28.7 10^3/ul (4.8-10.8)
[2016-11-04 05:29] LABS: POTASSIUM 5.1 mmol/L (3.5-5.1)
[2016-11-04 05:29] LABS: AADO2 Arterial 259.2 mmHg (7.0-24.0); Arterial Base Excess -5.2 mmol/L (-3.0-3); Arterial COHb 0.3 % (0.0-3.0); Arterial Fraction of Oxyhgb 86.1 % (93.0-99.0); Arterial HCO3 19.8 mmol/L (22.0-26.0); Arterial MetHb 0.2 % (0.0-1.5); Arterial Total Hemglobin 10.9 g/dl (12.0-18.0); MODE MASK - VENTI
[2016-11-04 05:31] LABS: CREATININE 9.54 mg/dl (0.61-1.24)
[2016-11-04 05:32] LABS: CALCIUM 7.5 mg/dl (8.4-10.2)
[2016-11-04] MEDS: metroNIDAZOLE 500 MG TAB PO SCH ×3 (05:44→22:39)
[2016-11-04] MEDS: ALBUTEROL HFA 8 GM INHALER INH SCH ×3 (05:45→22:00)
--- NOTE | 2016-11-04 07:50 | OPR ---
Date/Time of Note Date/Time of Note DATE: 11/04/16 TIME: 07:48 Operative Report Free Text/Dictation DATE OF OPERATION: 11/03/2016 SURGEON: Bradley Carr MD PREOPERATIVE DIAGNOSIS: Left Lower Extremity gas gangrene POSTOPERATIVE DIAGNOSIS: same ANESTHESIA: general BLOOD LOSS: 125ml COMPLICATIONS: None. INDICATIONS: This is an 65 male whom had presented with left lower extremity ischemia with tissue loss and gas gangrene. Patient is limited with ambulation and ESRD. Risks and benefits were discussed with patient and family and not limited to , [place], stroke, pneumonia, hematoma, infection, revision of amputation, bleeding. PROCEDURE: 1. Left above knee amputation DESCRIPTION OF THE PROCEDURE: The patient was brought to the operating room and positioned in the supine position on the operating room table. The right lower extremity was prepped and draped in usual sterile fashion. The preoperative antibiotics were given. Anesthesia was initiated and patient tolerated well. Correa catheter was placed. The correct site was marked and confirmed. Time-out was performed. Anterior and posterior skin flaps were outlined with a marking pen 10 cm proximal to the knee joint. This incision was then performed and deepened through serpiginous tissue into the muscular fascia was identified. The greater saphenous vein was identified and ligated with a 3-0 silk ties and divided. Muscle groups over the anterior and medial thigh were divided with electrocautery at the same level of the skin incision. The neurovascular bundle was identified in the medial aspect of the thigh. The popliteal artery and veins were isolated and suture ligated with 3-0 Vicryl suture. The sciatic nerve was pulled and ligated with a 3-0 Vicryl suture tied and divided. The posterior thigh muscles were then divided with electrocautery. Once the muscle groups were circumferentially divided the periosteum was incised and elevated approximately 5 cm proximally off the femur. The femur was divided with electric saw. The proximal end of the transected femur was smoothed with a file. The amputation stump was irrigated copiously with antibiotic solution. Hemostasis was secured. The periosteum was closed with a interrupted 2-0 Vicryl suture over the transected femur. The fascia of the thigh muscles was also closed with interrupted 2-0 Vicryl suture. The dermal layer was approximated with interrupted 3-0 Vicryl sutures. Skin ricarda were applied and sterile dressing was applied with a 44 gauze and Kerlix and Mauricio bandage. The patient on procedure well was taken to post anesthesia care unit in stable condition. All instrument needle and sponge counts were correct 2. BRADLEY CARR MD Nov 04, 2016 07:50
--- NOTE | 2016-11-04 08:26 | PN ---
Date/Time of Note Date/Time of Note DATE: 11/04/16 TIME: 08:19 Assessment/Plan Lines/Catheters IV Catheter Type (from Nrsg): Peripheral IV Correa in Place (from Nrsg): Yes Assessment/Plan Chief Complaint/Hosp Course -Bilateral lower extremity atherosclerosis with gangrene: S/P AKA -Will order CTA chest and abdomen to eval for any other source of infection -Right lower extremity gangrene: will schedule patient for angiogram pending bolt labeler availability and resolution of WBC/leukocytosis -End-stage renal disease: New Usama catheter placed for respiratory distress and needing HD per nephrology -Optimize vascular status (BP meds, diet, nutrition, exercise, sugar control, antiplatelets). -Continue antibiotics - cultures of graft ESBL -PT/OT OOB and FWB as tolerated -Appreciate cardiology evaluation -Discussed findings, plan and management with the patient and family at the bedside and they understand with certified marketing community liaison. -Thank you for allowing us to participate in the care of your patient. Please call with any questions. Problems: Subjective 24 Hr Interval Summary pain controlled and improved Exam/Review of Systems Vital Signs Vitals Vital Signs Date Time Temp Pulse Resp B/P Pulse Ox O2 Delivery O2 Flow Rate FiO2 11/04/16 06:00 85 20 137/82 100 11/04/16 05:37 100 11/04/16 04:00 99.0 11/04/16 02:01 15.0 11/03/16 20:00 Nasal Cannula Intake and Output 11/03/16 11/03/16 11/04/16 15:00 23:00 07:00 Intake Total 350 ml 690 ml 240 ml Output Total 0 ml 350 ml 0 ml Balance 350 ml 340 ml 240 ml Exam Free Text/Dictation GENERAL: Alert and oriented x3, PULMONARY: Clear to auscultation bilaterally. CARDIOVASCULAR: S1, S2 present. ABDOMEN: Soft, nontender, nondistended. Bowel sounds positive. EXTREMITIES: Right lower extremity palpable femoral pulse, nonpalpable pedal pulse. Motor, sensory intact. Cap refill 3 to 4 seconds. Gangrene of the first and second toe with surrounding erythema resolving and pain of the first toe improved Left lower extremity: Palpable femoral pulse, AKA-stump with dressing intact and dry Results Result Diagram: 11/04/1632911/04/16329 CYNDI CARR MD Nov 04, 2016 8:26 am
[2016-11-04] MEDS ORDERED: IOHEXOL 350MG/ML 50 ML BTL ONE (09:00)
[2016-11-04] MEDS ORDERED: IOHEXOL 100 ML ONE (09:00)
[2016-11-04] MEDS ORDERED: SOD CHLORIDE 0.9% 100 ML ONE (09:00)
[2016-11-04] MEDS: LACTOBACILLUS CHEW TAB PO SCH ×2 (09:03→20:18)
[2016-11-04] MEDS: ZYVOX 600 MG TAB PO SCH ×2 (09:03→20:17)
[2016-11-04] MEDS: METOPROLOL 25 MG TAB PO SCH ×2 (09:04→20:18)
[2016-11-04] MEDS: ASPIRIN (EC) 81 MG TAB PO SCH (09:04)
[2016-11-04] MEDS: FAMOTIDINE 20 MG TAB PO SCH (09:04)
[2016-11-04] MEDS: BENAZEPRIL 10 MG TAB PO SCH ×2 (09:04→20:17)
[2016-11-04] MEDS: AMLODIPINE 5 MG TAB PO SCH ×2 (09:05→10:45)
[2016-11-04] MEDS: HEPARIN 5,000 UNIT/0.5 ML VIAL SC SCH (09:10)
[2016-11-04] MEDS: INSULIN ASPART [NOVOLOG] 3 ML PEN SC SCH ×4 (09:13→21:00)
--- NOTE | 2016-11-04 10:34 | CONS ---
Date/Time of Note Date/Time of Note DATE: 11/04/16 TIME: 10:32 Assessment/Plan Assessment/Plan Additional Assessment/Plan 1. 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 Failed redo bypass.post-surgical intervention with thrombectomy, exploration of the above knee popliteal graft and debridement of left lower extremity wound with wound VAC application on 10/19/2016.- Not improving, s/p AKA by vascular surgery on 11/03/16 2. Severe stenosis of the right distal superficial femoral artery and occluded right posterior tibial artery. 3. End-stage renal disease on hemodialysis Tuesday, , Tuesday. 4. Accelerated hypertension. 5. Hyperlipidemia. 6. History of hypertension with peripheral arterial disease. 7. History of peripheral arterial disease status post left lower extremity bypass in September 2016. PLAN: s/p Removal of permacath, then pt went into Resp distress yesterday, required emergent Usama catheter placement- yesterday pt was attempted for HD but catheter did not work well, tPA was placed, and plan for HD today will continue to follow up on patient Total Time spent in critical nephrology care is more than 45 minutes, communicated with family and Nursing staff at bedside Consultation Date/Type/Reason Admit Date/Time Oct 18, 2016 at 16:52 Initial Consult Date 10/18/2016 Type of Consultation: NEPHROLOGY Referring Provider: OZZIE HERRERA MD 24 HR Interval Summary Free Text/Dictation yesterday catheter did not work well, so only had a HD for 30 minutes, BP stable with levophed, Exam/Review of Systems Vital Signs Vitals Vital Signs Date Time Temp Pulse Resp B/P Pulse Ox O2 Delivery O2 Flow Rate FiO2 11/04/16 08:15 16 11/04/16 08:15 Non Rebreather 15.0 11/04/16 08:00 99.6 84 138/67 100 11/04/16 05:37 100 Intake and Output 11/03/16 11/03/16 11/04/16 15:00 23:00 07:00 Intake Total 350 ml 690 ml 340 ml Output Total 0 ml 350 ml 0 ml Balance 350 ml 340 ml 340 ml Exam GENERAL: This is a well-developed elderly man who is in no distress. HEENT: Head atraumatic, normocephalic. Sclerae anicteric. Buccal mucosa dry. NECK: Supple. CHEST: Rise symmetrical. Breath sounds diminished to bases. HEART: S1, S2. ABDOMEN: Soft. Bowel tones present. EXTREMITIES: Left lower extremity cyanosis. s/p AKA Results Result Diagram: 11/04/16 0330 11/04/16 0330 Results 24 hrs Laboratory Tests Test 11/03/16 11:10 11/03/16 16:34 11/03/16 20:29 11/03/16 21:59 Bedside Glucose 81 88 113 White Blood Count 23.9 H Red Blood Count 2.91 L Hemoglobin 8.9 L Hematocrit 28.2 L Mean Corpuscular Volume 96.9 Mean Corpuscular Hemoglobin 30.6 Mean Corpuscular Hemoglobin Concent 31.6 L Red Cell Distribution Width 18.3 H Platelet Count 344 Mean Platelet Volume 10.7 H Neutrophils % 84.1 H Lymphocytes % 8.4 L Monocytes % 6.0 Eosinophils % 0.4 Basophils % 0.2 Nucleated Red Blood Cells % 0.0 Neutrophils # 20.1 H Lymphocytes # 2.0 Monocytes # 1.4 H Eosinophils # 0.1 Basophils # 0.1 Nucleated Red Blood Cells # 0.0 Test 11/04/16 02:38 11/04/16 03:30 11/04/16 05:00 11/04/16 09:09 Bedside Glucose 140 147 White Blood Count 28.7 #H Red Blood Count 2.99 L Hemoglobin 9.3 L Hematocrit 29.2 L Mean Corpuscular Volume 97.7 Mean Corpuscular Hemoglobin 31.1 Mean Corpuscular Hemoglobin Concent 31.8 L Red Cell Distribution Width 18.6 H Platelet Count 389 Mean Platelet Volume 11.8 H Sodium Level 138 Potassium Level 5.1 Chloride Level 96 L Carbon Dioxide Level 20 L Anion Gap 27 H Blood Urea Nitrogen 82 H Creatinine 9.54 H Glucose Level 146 Calcium Level 7.5 L Blood Gas Specimen Source Blood arterial Arterial Blood Date Drawn 11/04/2016 5:17:13 AM Arterial Blood pH (Temp corrected) 7.355 Arterial Blood pCO2 (Temp correct) 36.2 Arterial Blood pO2 (Temp corrected) 56.6 L Arterial Blood HCO3 19.8 L Arterial Blood Base Excess -5.2 L Arterial Blood Oxygen Saturation 86.5 L Fredrick Test N/A Arterial Blood Gas Puncture Site Right Brachial Arterial Blood Carboxyhemoglobin 0.3 Arterial Blood Methemoglobin 0.2 Blood Gas A-a O2 Differential 259.2 H Oxyhemoglobin Percent 86.1 L Total Hemoglobin 10.9 L Blood Gas Temperature 37.0 Blood Gas Modality MASK - VENTI FiO2 50.0 Blood Gas Notified Whom KM Blood Gas Notified Time 11/04/2016 5:29:23 AM Medications Medications Current Medications Metoprolol Tartrate (Lopressor) 25 mg BID PO Last administered on 11/04/16 09: 04; Admin Dose 25 MG; Start 10/18/16 at 19:21 Hydralazine HCl (Apresoline) 10 mg Q4H PRN IV SBP>150 mm Hg Last administered on 10/27/16 20:38; Admin Dose 10 MG; Start 10/18/16 at 20:00 Albuterol (Ventolin Hfa) 2 puff Q8 INH Last administered on 11/04/16 05:45; Admin Dose 2 PUFF; Start 10/18/16 at 22:30 Famotidine (Pepcid) 20 mg DAILY PO Last administered on 11/04/16 09:04; Admin Dose 20 MG; Start 10/19/16 at 09:00 Ondansetron HCl (Zofran Inj) 4 mg Q6H PRN IV NAUSEA AND/OR VOMITING; Start at 22:30 Acetaminophen (Tylenol Tab) 650 mg Q6H PRN PO PAIN LEVEL 1-3 OR FEVER Last administered on 11/01/16 02:36; Admin Dose 650 MG; Start 10/18/16 at 22:30 Docusate Sodium (Colace) 100 mg Q12H PRN PO CONSTIPATION Last administered on 18:01; Admin Dose 100 MG; Start 10/18/16 at 22:30 Bisacodyl (Dulcolax Supp) 10 mg DAILY PRN [place] CONSTIPATION Last administered on 10/26/16 07:04; Admin Dose 10 MG; Start 10/18/16 at 22:30 Diagnostic Test (Pha) (Accucheck) 1 ea 02 XX Last administered on 10/27/16 02: 31; Admin Dose 1 EA; Start 10/19/16 at 02:00 Miscellaneous Information 1 ea NOTE XX ; Start 10/18/16 at 22:30 Glucose (Glutose) 15 gm Q15M PRN PO DECREASED GLUCOSE; Start 10/18/16 at 22:30 Glucose (Glutose) 22.5 gm Q15M PRN PO DECREASED GLUCOSE; Start 10/18/16 at 22: 30 Dextrose (D50w Syringe) 25 ml Q15M PRN IV DECREASED GLUCOSE; Start 10/18/16 at 22:30 Dextrose (D50w Syringe) 50 ml Q15M PRN IV DECREASED GLUCOSE Last administered on 10/27/16 09:35; Admin Dose 50 ML; Start 10/18/16 at 22:30 Glucagon (Glucagen) 1 mg Q15M PRN IM DECREASED GLUCOSE; Start 10/18/16 at 22:30 Glucose (Glutose) 15 gm Q15M PRN BUCCAL DECREASED GLUCOSE; Start 10/18/16 at 22 :30 Linezolid (Zyvox) 600 mg BID PO Last administered on 11/04/16 09:03; Admin Dose 600 MG; Start 10/20/16 at 12:15 Aspirin (Halfprin) 81 mg DAILY PO Last administered on 11/04/16 09:04; Admin Dose 81 MG; Start 10/22/16 at 09:00 Lactobacillus Acidoph/Bulgaricus (Floranex) 1 tab BID PO Last administered on 09:03; Admin Dose 1 TAB; Start 10/22/16 at 21:00 Senna/Docusate Sodium (Senokot-S) 2 tab HS PO Last administered on 11/03/16 21: 43; Admin Dose 2 TAB; Start 10/22/16 at 21:00 Lactulose (Enulose) 20 gm TID PRN PO CONSTIPATION Last administered on 13:32; Admin Dose 20 GM; Start 10/23/16 at 17:30 Clonidine HCl 1 patch 1 patch Q7D TRANSDERM Last administered on 10/31/16 08:54 ; Admin Dose 1 PATCH; Start 10/24/16 at 09:00 Meropenem (Merrem 500 Mg/ 100 ml (Pmx)) 100 ml @ 200 mls/hr Q24H IVPB Last administered on 11/03/16 22:22; Admin Dose 200 MLS/HR; Start 10/26/16 at 21:00 Sodium Biphosphate/ Sodium Phosphate (Fleet Enema) 133 ml DAILY PRN CA CONSTIPATION Last administered on 10/26/16 18:33; Admin Dose 133 ML; Start at 18:00 Hydromorphone HCl (Dilaudid [employer]NALYST) 0 MG/HR CONTINUOUS RATE ... [employer] ANALYST IV Last administered on 11/04/16 03:16; Admin Dose 6 MG; Start 10/27/16 at 12:30 Heparin Sodium (Porcine) (Heparin (5000 Units/0.5 ml)) 5,000 unit BID SC Last administered on 11/04/16 09:10; Admin Dose 5,000 UNIT; Start 10/27/16 at 12:30 Naloxone HCl (Narcan) 0.2 mg Q2M PRN IV RR 8 BREATHS/MIN OR LESS; Start at 13:00 Oxycodone/ Acetaminophen (Percocet (5/ 325)) 2 tab Q4H PRN PO PAIN Last administered on 11/03/16 18:56; Admin Dose 2 TAB; Start 10/28/16 at 15:00 Insulin Glargine (Lantus) 4 unit DAILY@20 SC Last administered on 11/03/16 22: 27; Admin Dose 4 UNIT; Start 10/29/16 at 20:00 Benazepril HCl (Lotensin) 10 mg BID PO Last administered on 11/04/16 09:04; Admin Dose 10 MG; Start 10/29/16 at 21:00 Metronidazole (Flagyl) 500 mg Q8 PO Last administered on 11/04/16 05:44; Admin Dose 500 MG; Start 10/31/16 at 14:00 Nitroglycerin (Nitroglycerin (Sl Tab) 0.4 Mg) 1 tab Q5M PRN SL ANGINA Last administered on 11/01/16 21:24; Admin Dose 1 TAB; Start 11/01/16 at 21:30 Nitroglycerin (Nitroglycerin (Sl Tab) 0.4 Mg) 1 tab Q5M PRN SL CHEST PAIN; Start 11/01/16 at 22:30 Amlodipine Besylate (Norvasc) 5 mg DAILY PO Last administered on 11/04/16 09:05 ; Admin Dose 5 MG; Start 11/04/16 at 09:00 Hydromorphone HCl (Dilaudid) 2 mg Q2H PRN IV PAIN Last administered on 05:05; Admin Dose 2 MG; Start 11/03/16 at 19:30 LISA MERRITT MD Nov 04, 2016 10:34
[2016-11-04 10:35] LABS: EOSINOPHILS # 0.3 10^3/ul (0.0-0.5); LYMPHOCYTES # 1.4 10^3/ul (0.8-2.9); MONOCYTE # 1.1 10^3/ul (0.3-0.9); NEUTROPHIL # 25.3 10^3/ul (1.6-7.5)
--- NOTE | 2016-11-04 11:01 | RADRPT ---
PROCEDURE: XR Chest. CLINICAL INDICATION: Decreased oxygen saturation TECHNIQUE: An AP view of the chest was obtained. COMPARISON: Chest x-ray dated 11/02/2016 FINDINGS: There is prominence of the interstitial markings with small bilateral pleural effusions. No pneum othorax is seen. The cardiomediastinal silhouette is mildly enlarged . Calcifications are seen wit hin the aortic arch. The osseous structures demonstrate senescent changes. IMPRESSION: 1. Findings suggestive of interstitial edema with small bilateral pleural effusions. No significant interval change. 2. Mild cardiomegaly and aortic atherosclerosis. RPTAT: HH .Selene Mcgraw MD, MD Date Time Electronically viewed and signed by .Selene Mcgraw MD, MD on 11/04/2016 11:01 .Hardeep/
--- NOTE | 2016-11-04 11:16 | PN ---
Date/Time of Note Date/Time of Note DATE: 11/04/16 TIME: 11:12 Assessment/Plan VTE Prophylaxis VTE Prophylaxis Intervention: heparin Lines/Catheters IV Catheter Type (from Nrs): Usama Urinary Cath still in place: No Assessment/Plan Chief Complaint/Hosp Course Assessment and plan 1. 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 Patient does have history of bypass on area that had thrombosed. 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 Also noted with right lower extremity gangrene. 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 Continue with analgesics. wound care per vascular surgeon Pain management physician consulted for further assistance. Await recommendations. cont with abx per ID (ESBL in wound) 2. ESRD on dialysis. Continue on HD. Follow-up with nephrology recommendations 3. Hypertension. Continue on antihypertensives and adjust needed. Stable 4. Anemia of chronic disease. H&H stable. Monitor for now. 5. History of diabetes. Continue on insulin regimen. Will adjust as needed 6. CAD. Continue on antiplatelet therapy 7. Peripheral vascular disease. Continue aggressive medical management, vascular surgeon has been consulted 8. Acute respiratory distress. Likely secondary to fluid overload. Resolved status post urgent hemodialysis 9. Leukocytosis. Continue IV antibiotics, infectious disease doctor has been consulted 10. Pulmonary embolism. Start the patient on heparin and transitioned to oral anticoagulation as per vascular surgeon Disposition and plan:. Continue with residential property consultant recommendations. cont with analgesics Problems: Subjective 24 Hr Interval Summary Free Text/Dictation Patient complains of having left lower extremity pain Tolerating oral intake Requesting [employer] pump Exam/Review of Systems Vital Signs Vitals Vital Signs Date Time Temp Pulse Resp B/P Pulse Ox O2 Delivery O2 Flow Rate FiO2 11/04/16 08:15 16 11/04/16 08:15 Non Rebreather 15.0 11/04/16 08:00 99.6 84 138/67 100 11/04/16 05:37 100 Intake and Output 11/03/16 11/03/16 11/04/16 15:00 23:00 07:00 Intake Total 350 ml 690 ml 340 ml Output Total 0 ml 350 ml 0 ml Balance 350 ml 340 ml 340 ml Exam General: The patient is well-developed, Not in acute distress. HEENT: Atraumatic, normocephalic. The pupils are equal and round . Neck: Supple with full range of motion. Chest: Normal expansion of the thorax during inspiration Lungs: Clear to auscultation bilaterally Heart: Normal S1-S2, Regular rhythm and rate. Abdomen: Soft , nontender, nondistended , bowel sounds are present. Extremities: Status post left AKA, no edema no cyanosis, hemodialysis catheter in the right inguinal area Neurologic: Normal mental status,The patient is awake, alert and oriented . Results Result Diagram: 11/04/16 0330 11/04/16 0330 Results 24 hrs Laboratory Tests Test 11/03/16 16:34 11/03/16 20:29 11/03/16 21:59 11/04/16 02:38 Bedside Glucose 88 113 140 White Blood Count 23.9 H Red Blood Count 2.91 L Hemoglobin 8.9 L Hematocrit 28.2 L Mean Corpuscular Volume 96.9 Mean Corpuscular Hemoglobin 30.6 Mean Corpuscular Hemoglobin Concent 31.6 L Red Cell Distribution Width 18.3 H Platelet Count 344 Mean Platelet Volume 10.7 H Neutrophils % 84.1 H Lymphocytes % 8.4 L Monocytes % 6.0 Eosinophils % 0.4 Basophils % 0.2 Nucleated Red Blood Cells % 0.0 Neutrophils # 20.1 H Lymphocytes # 2.0 Monocytes # 1.4 H Eosinophils # 0.1 Basophils # 0.1 Nucleated Red Blood Cells # 0.0 Test 11/04/16 03:30 11/04/16 05:00 11/04/16 09:09 White Blood Count 28.7 #H Red Blood Count 2.99 L Hemoglobin 9.3 L Hematocrit 29.2 L Mean Corpuscular Volume 97.7 Mean Corpuscular Hemoglobin 31.1 Mean Corpuscular Hemoglobin Concent 31.8 L Red Cell Distribution Width 18.6 H Platelet Count 389 Mean Platelet Volume 11.8 H Neutrophils % 88.0 H Band Neutrophils % 2.0 Lymphocytes % 5.0 L Monocytes % 4.0 Eosinophils % 1.0 Neutrophils # 25.3 H Lymphocytes # 1.4 Monocytes # 1.1 H Eosinophils # 0.3 Sodium Level 138 Potassium Level 5.1 Chloride Level 96 L Carbon Dioxide Level 20 L Anion Gap 27 H Blood Urea Nitrogen 82 H Creatinine 9.54 H Glucose Level 146 Calcium Level 7.5 L Blood Gas Specimen Source Blood arterial Arterial Blood Date Drawn 11/04/2016 5:17:13 AM Arterial Blood pH (Temp corrected) 7.355 Arterial Blood pCO2 (Temp correct) 36.2 Arterial Blood pO2 (Temp corrected) 56.6 L Arterial Blood HCO3 19.8 L Arterial Blood Base Excess -5.2 L Arterial Blood Oxygen Saturation 86.5 L Fredrick Test N/A Arterial Blood Gas Puncture Site Right Brachial Arterial Blood Carboxyhemoglobin 0.3 Arterial Blood Methemoglobin 0.2 Blood Gas A-a O2 Differential 259.2 H Oxyhemoglobin Percent 86.1 L Total Hemoglobin 10.9 L Blood Gas Temperature 37.0 Blood Gas Modality MASK - VENTI FiO2 50.0 Blood Gas Notified Whom KM Blood Gas Notified Time 11/04/2016 5:29:23 AM Bedside Glucose 147 Medications Medications Current Medications Metoprolol Tartrate (Lopressor) 25 mg BID PO Last administered on 11/04/16 09: 04; Admin Dose 25 MG; Start 10/18/16 at 19:21 Hydralazine HCl (Apresoline) 10 mg Q4H PRN IV SBP>150 mm Hg Last administered on 10/27/16 20:38; Admin Dose 10 MG; Start 10/18/16 at 20:00 Albuterol (Ventolin Hfa) 2 puff Q8 INH Last administered on 11/04/16 05:45; Admin Dose 2 PUFF; Start 10/18/16 at 22:30 Famotidine (Pepcid) 20 mg DAILY PO Last administered on 11/04/16 09:04; Admin Dose 20 MG; Start 10/19/16 at 09:00 Ondansetron HCl (Zofran Inj) 4 mg Q6H PRN IV NAUSEA AND/OR VOMITING; Start at 22:30 Acetaminophen (Tylenol Tab) 650 mg Q6H PRN PO PAIN LEVEL 1-3 OR FEVER Last administered on 11/01/16 02:36; Admin Dose 650 MG; Start 10/18/16 at 22:30 Docusate Sodium (Colace) 100 mg Q12H PRN PO CONSTIPATION Last administered on 18:01; Admin Dose 100 MG; Start 10/18/16 at 22:30 Bisacodyl (Dulcolax Supp) 10 mg DAILY PRN [place] CONSTIPATION Last administered on 10/26/16 07:04; Admin Dose 10 MG; Start 10/18/16 at 22:30 Diagnostic Test (Pha) (Accucheck) 1 ea 02 XX Last administered on 10/27/16 02: 31; Admin Dose 1 EA; Start 10/19/16 at 02:00 Miscellaneous Information 1 ea NOTE XX ; Start 10/18/16 at 22:30 Glucose (Glutose) 15 gm Q15M PRN PO DECREASED GLUCOSE; Start 10/18/16 at 22:30 Glucose (Glutose) 22.5 gm Q15M PRN PO DECREASED GLUCOSE; Start 10/18/16 at 22: 30 Dextrose (D50w Syringe) 25 ml Q15M PRN IV DECREASED GLUCOSE; Start 10/18/16 at 22:30 Dextrose (D50w Syringe) 50 ml Q15M PRN IV DECREASED GLUCOSE Last administered on 10/27/16 09:35; Admin Dose 50 ML; Start 10/18/16 at 22:30 Glucagon (Glucagen) 1 mg Q15M PRN IM DECREASED GLUCOSE; Start 10/18/16 at 22:30 Glucose (Glutose) 15 gm Q15M PRN BUCCAL DECREASED GLUCOSE; Start 10/18/16 at 22 :30 Linezolid (Zyvox) 600 mg BID PO Last administered on 11/04/16 09:03; Admin Dose 600 MG; Start 10/20/16 at 12:15 Aspirin (Halfprin) 81 mg DAILY PO Last administered on 11/04/16 09:04; Admin Dose 81 MG; Start 10/22/16 at 09:00 Lactobacillus Acidoph/Bulgaricus (Floranex) 1 tab BID PO Last administered on 09:03; Admin Dose 1 TAB; Start 10/22/16 at 21:00 Senna/Docusate Sodium (Senokot-S) 2 tab HS PO Last administered on 11/03/16 21: 43; Admin Dose 2 TAB; Start 10/22/16 at 21:00 Lactulose (Enulose) 20 gm TID PRN PO CONSTIPATION Last administered on 13:32; Admin Dose 20 GM; Start 10/23/16 at 17:30 Clonidine HCl 1 patch 1 patch Q7D TRANSDERM Last administered on 10/31/16 08:54 ; Admin Dose 1 PATCH; Start 10/24/16 at 09:00 Meropenem (Merrem 500 Mg/ 100 ml (Pmx)) 100 ml @ 200 mls/hr Q24H IVPB Last administered on 11/03/16 22:22; Admin Dose 200 MLS/HR; Start 10/26/16 at 21:00 Sodium Biphosphate/ Sodium Phosphate (Fleet Enema) 133 ml DAILY PRN [place] CONSTIPATION Last administered on 10/26/16 18:33; Admin Dose 133 ML; Start at 18:00 Hydromorphone HCl (Dilaudid [employer]) 0 MG/HR CONTINUOUS RATE ... [employer] IV Last administered on 11/04/16 03:16; Admin Dose 6 MG; Start 10/27/16 at 12:30 Heparin Sodium (Porcine) (Heparin (5000 Units/0.5 ml)) 5,000 unit BID SC Last administered on 11/04/16 09:10; Admin Dose 5,000 UNIT; Start 10/27/16 at 12:30 Naloxone HCl (Narcan) 0.2 mg Q2M PRN IV RR 8 BREATHS/MIN OR LESS; Start at 13:00 Oxycodone/ Acetaminophen (Percocet (5/ 325)) 2 tab Q4H PRN PO PAIN Last administered on 11/03/16 18:56; Admin Dose 2 TAB; Start 10/28/16 at 15:00 Insulin Glargine (Lantus) 4 unit DAILY@20 SC Last administered on 11/03/16 22: 27; Admin Dose 4 UNIT; Start 10/29/16 at 20:00 Benazepril HCl (Lotensin) 10 mg BID PO Last administered on 11/04/16 09:04; Admin Dose 10 MG; Start 10/29/16 at 21:00 Metronidazole (Flagyl) 500 mg Q8 PO Last administered on 11/04/16 05:44; Admin Dose 500 MG; Start 10/31/16 at 14:00 Nitroglycerin (Nitroglycerin (Sl Tab) 0.4 Mg) 1 tab Q5M PRN SL ANGINA Last administered on 11/01/16 21:24; Admin Dose 1 TAB; Start 11/01/16 at 21:30 Nitroglycerin (Nitroglycerin (Sl Tab) 0.4 Mg) 1 tab Q5M PRN SL CHEST PAIN; Start 11/01/16 at 22:30 Amlodipine Besylate (Norvasc) 5 mg DAILY PO Last administered on 11/04/16 10:45 ; Admin Dose 5 MG; Start 11/04/16 at 09:00 Hydromorphone HCl (Dilaudid) 2 mg Q2H PRN IV PAIN Last administered on 09:54; Admin Dose 2 MG; Start 11/03/16 at 19:30 OZZIE HERRERA MD Nov 04, 2016 11:16
[2016-11-04] MEDS ORDERED: HEPARIN 1000 UNITS/ML 10 ML INJ IV ONE (11:30)
[2016-11-04] MEDS ORDERED: HEPARIN 1000 UNITS/ML 10 ML INJ IV PRN ×2 (11:30)
--- NOTE | 2016-11-04 11:31 | CONS ---
Date/Time of Note Date/Time of Note DATE: 11/04/16 TIME: 11:28 Assessment/Plan Assessment/Plan Chief Complaint/Hosp Course IMPRESSION: 1. Preoperative evaluation prior to lower extremity vascular surgery, possible amputation.-Now s/p LLE vascular surgery with failed graft and now Post-op s/p LE amputation 2. Hypertension, uncontrolled. 3. Abnormal electrocardiogram, assess for acute coronary syndrome. 4. Dyslipidemia. 5. Peripheral arterial disease, s/p LE amputation 6. Lower extremity nonhealing ulceration of the toe. 7. PNA 8. End-stage renal disease on hemodialysis. 9. Anemia. 10. Leukocytosis. 11. Cardiomyopathy-LVEF 40-45%-negative trop x 3 since admit-mild CHF by cxr systolic acute on chronic 12. CHest dfev-Ujty-pb now resolved. Trop negative x 2 post epsiode/EKG 10/29 with lateral TWI(no sig changes)-no recurrence 14. Hypoxia-this am with possible PE by CT this am Recc: -Tele -Continue current anti-hypertensives with ACEI/BB as tolerated -Local wound care/abx's and f/u cx data -Pain control -Continue ASA -HD for volume removal -Now to be started on heparin for possible PE by CT this am Problems: Consultation Date/Type/Reason Admit Date/Time Oct 18, 2016 at 16:52 Initial Consult Date 10/19/2016 Type of Consultation: Cardiology Reason for Consultation CHF Referring Provider: OZZIE HERRERA MD Exam/Review of Systems Vital Signs Vitals Vital Signs Date Time Temp Pulse Resp B/P Pulse Ox O2 Delivery O2 Flow Rate FiO2 11/04/16 11:00 80 18 110/56 99 Venturi Mask 15.0 11/04/16 08:00 99.6 11/04/16 05:37 100 Intake and Output 11/03/16 11/03/16 11/04/16 15:00 23:00 07:00 Intake Total 350 ml 690 ml 340 ml Output Total 0 ml 350 ml 0 ml Balance 350 ml 340 ml 340 ml Exam Review of Systems: CONSTITUTIONAL: No fevers, chills. PULMONARY: No sob CARDIOVASCULAR: No chest pain/palpitations GASTROINTESTINAL: No nausea/vomiting. GENITOURINARY: No hematuria/dysuria. MUSCULOSKELETAL: Pain in leg PSYCHIATRIC: The patient denies depression. NEUROLOGIC: No weakness Constitutional: alert, oriented Psych: no complaints Head: normocephalic ENMT: mucosa pink and moist Neck: jvd (9 cm water), supple Respiratory: diminished breath sounds (at bases/B) Cardiovascular: regular rate and rhythm Gastrointestinal: non-tender, soft Musculoskeletal: muscle tone (normal) Extremities: other (s/p LE amputation) Neurological: other (NO focal deficits) Results Result Diagram: 11/04/16 0330 11/04/16 0330 Results 24 hrs Laboratory Tests Test 11/03/16 16:34 11/03/16 20:29 11/03/16 21:59 11/04/16 02:38 Bedside Glucose 88 113 140 White Blood Count 23.9 H Red Blood Count 2.91 L Hemoglobin 8.9 L Hematocrit 28.2 L Mean Corpuscular Volume 96.9 Mean Corpuscular Hemoglobin 30.6 Mean Corpuscular Hemoglobin Concent 31.6 L Red Cell Distribution Width 18.3 H Platelet Count 344 Mean Platelet Volume 10.7 H Neutrophils % 84.1 H Lymphocytes % 8.4 L Monocytes % 6.0 Eosinophils % 0.4 Basophils % 0.2 Nucleated Red Blood Cells % 0.0 Neutrophils # 20.1 H Lymphocytes # 2.0 Monocytes # 1.4 H Eosinophils # 0.1 Basophils # 0.1 Nucleated Red Blood Cells # 0.0 Test 11/04/16 03:30 11/04/16 05:00 11/04/16 09:09 White Blood Count 28.7 #H Red Blood Count 2.99 L Hemoglobin 9.3 L Hematocrit 29.2 L Mean Corpuscular Volume 97.7 Mean Corpuscular Hemoglobin 31.1 Mean Corpuscular Hemoglobin Concent 31.8 L Red Cell Distribution Width 18.6 H Platelet Count 389 Mean Platelet Volume 11.8 H Neutrophils % 88.0 H Band Neutrophils % 2.0 Lymphocytes % 5.0 L Monocytes % 4.0 Eosinophils % 1.0 Neutrophils # 25.3 H Lymphocytes # 1.4 Monocytes # 1.1 H Eosinophils # 0.3 Sodium Level 138 Potassium Level 5.1 Chloride Level 96 L Carbon Dioxide Level 20 L Anion Gap 27 H Blood Urea Nitrogen 82 H Creatinine 9.54 H Glucose Level 146 Calcium Level 7.5 L Blood Gas Specimen Source Blood arterial Arterial Blood Date Drawn 11/04/2016 5:17:13 AM Arterial Blood pH (Temp corrected) 7.355 Arterial Blood pCO2 (Temp correct) 36.2 Arterial Blood pO2 (Temp corrected) 56.6 L Arterial Blood HCO3 19.8 L Arterial Blood Base Excess -5.2 L Arterial Blood Oxygen Saturation 86.5 L Fredrick Test N/A Arterial Blood Gas Puncture Site Right Brachial Arterial Blood Carboxyhemoglobin 0.3 Arterial Blood Methemoglobin 0.2 Blood Gas A-a O2 Differential 259.2 H Oxyhemoglobin Percent 86.1 L Total Hemoglobin 10.9 L Blood Gas Temperature 37.0 Blood Gas Modality MASK - VENTI FiO2 50.0 Blood Gas Notified Whom KM Blood Gas Notified Time 11/04/2016 5:29:23 AM Bedside Glucose 147 Medications Medications Current Medications Metoprolol Tartrate (Lopressor) 25 mg BID PO Last administered on 11/04/16 09: 04; Admin Dose 25 MG; Start 10/18/16 at 19:21 Hydralazine HCl (Apresoline) 10 mg Q4H PRN IV SBP>150 mm Hg Last administered on 10/27/16 20:38; Admin Dose 10 MG; Start 10/18/16 at 20:00 Albuterol (Ventolin Hfa) 2 puff Q8 INH Last administered on 11/04/16 05:45; Admin Dose 2 PUFF; Start 10/18/16 at 22:30 Famotidine (Pepcid) 20 mg DAILY PO Last administered on 11/04/16 09:04; Admin Dose 20 MG; Start 10/19/16 at 09:00 Ondansetron HCl (Zofran Inj) 4 mg Q6H PRN IV NAUSEA AND/OR VOMITING; Start at 22:30 Acetaminophen (Tylenol Tab) 650 mg Q6H PRN PO PAIN LEVEL 1-3 OR FEVER Last administered on 11/01/16 02:36; Admin Dose 650 MG; Start 10/18/16 at 22:30 Docusate Sodium (Colace) 100 mg Q12H PRN PO CONSTIPATION Last administered on 18:01; Admin Dose 100 MG; Start 10/18/16 at 22:30 Bisacodyl (Dulcolax Supp) 10 mg DAILY PRN [place] CONSTIPATION Last administered on 10/26/16 07:04; Admin Dose 10 MG; Start 10/18/16 at 22:30 Diagnostic Test (Pha) (Accucheck) 1 ea 02 XX Last administered on 10/27/16 02: 31; Admin Dose 1 EA; Start 10/19/16 at 02:00 Miscellaneous Information 1 ea NOTE XX ; Start 10/18/16 at 22:30 Glucose (Glutose) 15 gm Q15M PRN PO DECREASED GLUCOSE; Start 10/18/16 at 22:30 Glucose (Glutose) 22.5 gm Q15M PRN PO DECREASED GLUCOSE; Start 10/18/16 at 22: 30 Dextrose (D50w Syringe) 25 ml Q15M PRN IV DECREASED GLUCOSE; Start 10/18/16 at 22:30 Dextrose (D50w Syringe) 50 ml Q15M PRN IV DECREASED GLUCOSE Last administered on 10/27/16 09:35; Admin Dose 50 ML; Start 10/18/16 at 22:30 Glucagon (Glucagen) 1 mg Q15M PRN IM DECREASED GLUCOSE; Start 10/18/16 at 22:30 Glucose (Glutose) 15 gm Q15M PRN BUCCAL DECREASED GLUCOSE; Start 10/18/16 at 22 :30 Linezolid (Zyvox) 600 mg BID PO Last administered on 11/04/16 09:03; Admin Dose 600 MG; Start 10/20/16 at 12:15 Aspirin (Halfprin) 81 mg DAILY PO Last administered on 11/04/16 09:04; Admin Dose 81 MG; Start 10/22/16 at 09:00 Lactobacillus Acidoph/Bulgaricus (Floranex) 1 tab BID PO Last administered on 09:03; Admin Dose 1 TAB; Start 10/22/16 at 21:00 Senna/Docusate Sodium (Senokot-S) 2 tab HS PO Last administered on 11/03/16 21: 43; Admin Dose 2 TAB; Start 10/22/16 at 21:00 Lactulose (Enulose) 20 gm TID PRN PO CONSTIPATION Last administered on 13:32; Admin Dose 20 GM; Start 10/23/16 at 17:30 Clonidine HCl 1 patch 1 patch Q7D TRANSDERM Last administered on 10/31/16 08:54 ; Admin Dose 1 PATCH; Start 10/24/16 at 09:00 Meropenem (Merrem 500 Mg/ 100 ml (Pmx)) 100 ml @ 200 mls/hr Q24H IVPB Last administered on 11/03/16 22:22; Admin Dose 200 MLS/HR; Start 10/26/16 at 21:00 Sodium Biphosphate/ Sodium Phosphate (Fleet Enema) 133 ml DAILY PRN [place] CONSTIPATION Last administered on 10/26/16 18:33; Admin Dose 133 ML; Start at 18:00 Hydromorphone HCl (Dilaudid FASHION EDITOR) 0 MG/HR CONTINUOUS RATE ... FASHION EDITOR IV Last administered on 11/04/16 03:16; Admin Dose 6 MG; Start 10/27/16 at 12:30 Heparin Sodium (Porcine) (Heparin (5000 Units/0.5 ml)) 5,000 unit BID SC Last administered on 11/04/16 09:10; Admin Dose 5,000 UNIT; Start 10/27/16 at 12:30 Naloxone HCl (Narcan) 0.2 mg Q2M PRN IV RR 8 BREATHS/MIN OR LESS; Start at 13:00 Oxycodone/ Acetaminophen (Percocet (5/ 325)) 2 tab Q4H PRN PO PAIN Last administered on 11/03/16 18:56; Admin Dose 2 TAB; Start 10/28/16 at 15:00 Insulin Glargine (Lantus) 4 unit DAILY@20 SC Last administered on 11/03/16 22: 27; Admin Dose 4 UNIT; Start 10/29/16 at 20:00 Benazepril HCl (Lotensin) 10 mg BID PO Last administered on 11/04/16 09:04; Admin Dose 10 MG; Start 10/29/16 at 21:00 Metronidazole (Flagyl) 500 mg Q8 PO Last administered on 11/04/16 05:44; Admin Dose 500 MG; Start 10/31/16 at 14:00 Nitroglycerin (Nitroglycerin (Sl Tab) 0.4 Mg) 1 tab Q5M PRN SL ANGINA Last administered on 11/01/16 21:24; Admin Dose 1 TAB; Start 11/01/16 at 21:30 Nitroglycerin (Nitroglycerin (Sl Tab) 0.4 Mg) 1 tab Q5M PRN SL CHEST PAIN; Start 4/3/17 at 22:30 Amlodipine Besylate (Norvasc) 5 mg DAILY PO Last administered on 11/04/16 10:45 ; Admin Dose 5 MG; Start 11/04/16 at 09:00 Hydromorphone HCl (Dilaudid) 2 mg Q2H PRN IV PAIN Last administered on 09:54; Admin Dose 2 MG; Start 11/03/16 at 19:30 Miscellaneous Information (* Miscellaneous Pharmacy Order) DC previous hepa... ONCE ONCE XX ; Start 11/04/16 at 11:30; Stop 11/04/16 at 11:31; Status UNV Heparin Sodium (Porcine) (Heparin (1000 Units/ml)) 5,000 unit ONCE ONCE IV ; Start 11/04/16 at 11:30; Stop 11/04/16 at 11:31; Status UNV KAYLEE WILSON Nov 04, 2016 11:31
--- NOTE | 2016-11-04 11:46 | RADRPT ---
PROCEDURE: CTA Chest, abdomen and pelvis. CLINICAL INDICATION: Assess for pulmonary embolus. TECHNIQUE: The study was performed utilizing a high-resolution multidetector CT scanner. Direct sp iral 2.5 mm axial sections were obtained from the thoracic inlet to the upper abdomen with the use o f 100 cc of Omnipaque 350 nonionic intravenous contrast material and reformatted at 3 mm. Coronal re formations were obtained. The images were reviewed on a PACS workstation. CTDI: 21.1 and DLP: 494 One or more of the following dose reduction techniques were used: - Automated exposure control. - Adjustment of the mA and/or kV according to patient size. Use of iterative reconstruction technique. COMPARISON: Chest x-ray 11/04/2016 05:55 a.m. FINDINGS: The thyroid gland trachea are unremarkable. There are vascular calcifications in the orig in of the right subclavian artery. There are vascular calcifications in the aortic arch. The right left common carotid arteries and left subclavian artery are normal. The main pulmonary artery and pulmonary artery outflow tracts are normal. There is a pulmonary embo patrick in the a A 9 segment of the artery to the medial portion of the right lower lobe. The thoracic aorta is normal in size with no evidence of an aortic aneurysm , aortic dissection or t ransection. There are bilateral pleural effusions with consolidative infiltrates air bronchograms in the right l eft lower lobes. The heart is normal in size with no pericardial effusion present. No enlarged supraclavicular, axil felipe or hilar lymph nodes are identified. A 9.2 mm and minimal transverse diameter right lower para tracheal lymph nodes present. A 3 mm noncalcified pleural-based nodule is present in the periphery of the right middle lobe. Foll ow up and 12 months recommended if the patient is at high risk for malignancy. No additional follow -up is needed if the patient is at low risk for malignancy. TB skin testing is recommended. A 8.5 mm pulmonary nodule abuts the pleural surface in the ventral inferior lingula. Follow-up CT i n [address] scan versus biopsy can also be considered. There is moderate ascites. There are calcifications in the spleen which may be the result of a gran ulomatous process such as histoplasmosis. The pancreas extrahepatic common bile duct are normal. The colon contains contrast media and fecal material. The small bowel loops have a normal caliber. CT angiogram abdomen pelvis: There are vascular calcifications in the abdominal aorta without evide nce of an abdominal aortic aneurysm. The celiac artery at its branches are patent without evidence of a aneurysm. There is some plaquing in the low grade narrowing at the origin of the superior mese nteric artery. The renal arteries are patent bilaterally without evidence of a high-grade stenosis. There is heart and soft plaquing at the origins of the renal arteries. There is hard and soft plaquing in the right and left common iliac arteries. There are vascular calcifications in the right internal iliac artery. The right common femoral naomie ry is unremarkable. Incidental note is made of a vascular sheath in the right common femoral vein a ppears continues cephalad into the inferior vena cava. And is below the level of the renal veins. No inguinal hematoma is present. There are vascular calcifications in the profunda femoris artery. There are high-grade segmental st enoses involving the proximal right superficial femoral artery. There is complete occlusion of the mid right superficial femoral artery with collateral vessels amna nstituting the vessel and its distal third. There is a high-grade stenosis of the proximal right popliteal artery. There is a moderate stenosis of the mid right popliteal artery. There is a high-grade stenosis of the distal right popliteal ar ginny. There is a segmental high-grade stenosis of the proximal right peroneal artery. The more distal por tions of the vessel are well maintained. There is a segmental high-grade stenoses and severe attenuation of the distal right anterior tibial artery. There is occlusion of the right posterior tibial artery at the level of the mid calf. There is no co llateral reconstitution of this vessel. The left internal and external and left common femoral arteries are patent. There are metal clips from earlier surgery adjacent to the distal left common femoral artery. There are vascular calcifications in the left profunda femoris artery. There is an initial high-grade stenosis at the origin of the proximal left superficial femoral arter y. There is subsequent thrombosis and occlusion of the proximal right superficial femoral artery. There is subcutaneous emphysema in the proximal left calf normal with [id number] left amputation . There is no air-fluid level in the stomach. There is no evidence of a hiatal hernia. The small b owel loops have a normal caliber.. There is fecal material throughout the colon consistent with constipation. There are bilateral inguinal hernias containing fat. The left is larger than the right. There is a midline umbilical hernia which contains only fat. The neck of this hernia small measurin g 8 mm. The adrenal glands are normal. There is perinephric stranding. A 2.6 mm nonobstructive nephrolith is noted in the midpole kulwinder of the right kidney. The urinary bladder is normal. No enlarged periportal, mesenteric, retroperitoneal, pelvic sidewall or inguinal lymph nodes are identified. The prostate gland seminal vesicles are normal. There are degenerative osteophytes in the thoracic and lumbosacral spine. There are degenerative ch anges in the articular facets greater on the left sided at L5-S1. There are degenerative changes in the SI joints and both hips. No acute bony fracture or bone metastasis is identified. IMPRESSION: 1. Critical findings: A pulmonary embolus is identified in the a 9 segment of the pulmonary artery to the right lower lobe. Findings were phoned to the intensive care unit to Kellee Smith. A read b ack was performed. 2. A 8.5 mm pulmonary nodule abutting the pleural surfaces identified in the ventral inferior lingu la. Recommend 3-month a short-term and local follow-up versus PET CT scan or percutaneous biopsy fo r additional evaluation based on clinical assessment. An additional 3 mm pleural based noncalcified nodules present in the periphery of the right middle lobe. 3. Consolidative infiltrates with air bronchograms and bilateral pleural effusions in the bases of the lungs. 4. Ascites. 5. No evidence of a thoracic aortic aneurysm, aortic dissection or transection 6. High-grade segmental stenoses of the proximal right superficial femoral artery. 7. There are high-grade focal segmental stenoses of the proximal and distal right popliteal artery. There is a moderate segmental stenosis of the mid right popliteal artery. 8. Occlusion of the right posterior tibial artery at the level of the midcalf. No runoff or reconst itution is noted distally. 9. Status post amputation superior to the left knee with subcutaneous emphysema in the distal soft tissues present secondary to recent surgery. 10. High-grade stenosis at the origin of the left superficial femoral artery and subsequent thrombo sis occlusion of the left superficial femoral artery. 11. Constipation. 12. Small umbilical hernia. Bilateral inguinal hernias which contain fat but no intra-abdominal. 13. Atherosclerotic vascular disease with vascular calcifications noted in the left coronary artery. . 14. Calcifications of the spleen consistent with a prior granulomatous process. Perhaps histoplasm osis. 15. 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 16. Above in the left lower extremity amputation. Subcutaneous emphysema is noted from surgery. 17. Percutaneous vascular catheter entering from a right internal jugular approach with its tip in the inferior vena cava just below the level of the renal veins. 18. Hepatomegaly RPTAT:AAJJ Physician Karoline Date Time Electronically viewed and signed by Mark Lozada Physician on 11/04/2016 11:46 JM/
--- NOTE | 2016-11-04 11:57 | CONS ---
Date/Time of Note Date/Time of Note DATE: 11/04/16 TIME: 11:53 Assessment/Plan Assessment/Plan Additional Assessment/Plan CTA of the chest was reviewed from today which is showing moderate bilateral pleural effusions with compressive atelectasis involving lower lobes bilaterally more pronounced in the right lower lobe. There is a small embolus in the right lower lobe segmental branch. Chest x-ray was reviewed from today which is again showing mild pulmonary vascular congestion. Assessment recommendations; next 1. Patient admitted for left lower extremity gangrene status post left above- knee amputation. 2. Diabetes. 3. End-stage renal disease. 4. Fluid overload. With bilateral pleural effusion. 5. Questionable pulmonary embolism. Continue IV heparin. Patient will need to be aggressively dialyzed. Continue current antibiotic regimen. Consultation Date/Type/Reason Admit Date/Time Oct 18, 2016 at 16:52 Date of Consultation: Nov 04, 2016 Type of Consultation: Pulmonary/critical care Reason for Consultation Pulmonary consultation obtained for evaluation of PE. Next History presenting; patient is a 64-year-old male who has been admitted since 18 October of this year when the patient presented with complaints of bilateral leg pain. Patient was diagnosed with peripheral vascular disease and subsequently underwent left below-knee amputation which was advised to left upper knee amputation. Was last couple of hours the patient has been having some shortness of breath therefore a CT scan of chest was done with contrast at the PE protocol which is showing right lower lobe PE. Patient has been complaining of some shortness of breath lately. Denies any chest pain, fever, chills. Past medical history; 1. Patient with history of end-stage renal disease on hemodialysis. 2. Diabetes. 3. Hypertension. 4. Peripheral vascular disease. Medications; were reviewed. Allergies; R to vancomycin. Social history; patient has a prior history of smoking. Family history; various family members of diabetes hypertension in the family. Occupational history; patient on disability. Review of systems; denies any headache, sinus symptoms, chest pain, angina. Denies any cough or hemoptysis. Denies any abdominal pain, nausea vomiting. Denies any melena. Complaint of lower extremity pain. Has any orthopnea. General exam; elderly male, currently in no distress. Awake and alert. Constitutional: improved, other (NAD, Dw staff) ENT: no complaints Respiratory: no complaints Gastrointestinal: no complaints Genitourinary: no complaints Musculoskeletal: no complaints Psychological: no complaints Social History Smoking Status: Former smoker Exam/Review of Systems Vital Signs Vitals Vital Signs Date Time Temp Pulse Resp B/P Pulse Ox O2 Delivery O2 Flow Rate FiO2 11/04/16 11:00 80 18 110/56 99 Venturi Mask 15.0 11/04/16 08:00 99.6 11/04/16 05:37 100 Intake and Output 11/03/16 11/03/16 11/04/16 15:00 23:00 07:00 Intake Total 350 ml 690 ml 340 ml Output Total 0 ml 350 ml 0 ml Balance 350 ml 340 ml 340 ml Exam HEENT exam; supple neck, no JVD. No lymphadenopathy. Midline trachea. No thyromegaly. Pupils are small bilaterally. Dentition is fair. Chest exam is; diminished breath on lung bases bilaterally. Upper lobes are clear. S1-S2 audible, no murmurs. Regular rhythm. Abdomen examination; soft, nontender. No organomegaly. Bowel sounds audible. Extremity examination; there is a dressing applied over the left above-knee in position stump. There is gangrene involving the right foot. BESSEMER CONVERTER BLOWER exam is; cranial nerves are intact there is no focal motor deficit. Results Result Diagram: 11/04/16 0330 11/04/16 0330 Results 24 hrs Laboratory Tests Test 11/03/16 16:34 11/03/16 20:29 11/03/16 21:59 11/04/16 02:38 Bedside Glucose 88 113 140 White Blood Count 23.9 H Red Blood Count 2.91 L Hemoglobin 8.9 L Hematocrit 28.2 L Mean Corpuscular Volume 96.9 Mean Corpuscular Hemoglobin 30.6 Mean Corpuscular Hemoglobin Concent 31.6 L Red Cell Distribution Width 18.3 H Platelet Count 344 Mean Platelet Volume 10.7 H Neutrophils % 84.1 H Lymphocytes % 8.4 L Monocytes % 6.0 Eosinophils % 0.4 Basophils % 0.2 Nucleated Red Blood Cells % 0.0 Neutrophils # 20.1 H Lymphocytes # 2.0 Monocytes # 1.4 H Eosinophils # 0.1 Basophils # 0.1 Nucleated Red Blood Cells # 0.0 Test 11/04/16 03:30 11/04/16 05:00 11/04/16 09:09 White Blood Count 28.7 #H Red Blood Count 2.99 L Hemoglobin 9.3 L Hematocrit 29.2 L Mean Corpuscular Volume 97.7 Mean Corpuscular Hemoglobin 31.1 Mean Corpuscular Hemoglobin Concent 31.8 L Red Cell Distribution Width 18.6 H Platelet Count 389 Mean Platelet Volume 11.8 H Neutrophils % 88.0 H Band Neutrophils % 2.0 Lymphocytes % 5.0 L Monocytes % 4.0 Eosinophils % 1.0 Neutrophils # 25.3 H Lymphocytes # 1.4 Monocytes # 1.1 H Eosinophils # 0.3 Sodium Level 138 Potassium Level 5.1 Chloride Level 96 L Carbon Dioxide Level 20 L Anion Gap 27 H Blood Urea Nitrogen 82 H Creatinine 9.54 H Glucose Level 146 Calcium Level 7.5 L Blood Gas Specimen Source Blood arterial Arterial Blood Date Drawn 11/04/2016 5:17:13 AM Arterial Blood pH (Temp corrected) 7.355 Arterial Blood pCO2 (Temp correct) 36.2 Arterial Blood pO2 (Temp corrected) 56.6 L Arterial Blood HCO3 19.8 L Arterial Blood Base Excess -5.2 L Arterial Blood Oxygen Saturation 86.5 L Fredrick Test N/A Arterial Blood Gas Puncture Site Right Brachial Arterial Blood Carboxyhemoglobin 0.3 Arterial Blood Methemoglobin 0.2 Blood Gas A-a O2 Differential 259.2 H Oxyhemoglobin Percent 86.1 L Total Hemoglobin 10.9 L Blood Gas Temperature 37.0 Blood Gas Modality MASK - VENTI FiO2 50.0 Blood Gas Notified Whom KM Blood Gas Notified Time 11/04/2016 5:29:23 AM Bedside Glucose 147 Medications Medications Current Medications Metoprolol Tartrate (Lopressor) 25 mg BID PO Last administered on 11/04/16 09: 04; Admin Dose 25 MG; Start 10/18/16 at 19:21 Hydralazine HCl (Apresoline) 10 mg Q4H PRN IV SBP>150 mm Hg Last administered on 10/27/16 20:38; Admin Dose 10 MG; Start 10/18/16 at 20:00 Albuterol (Ventolin Hfa) 2 puff Q8 INH Last administered on 11/04/16 05:45; Admin Dose 2 PUFF; Start 10/18/16 at 22:30 Famotidine (Pepcid) 20 mg DAILY PO Last administered on 11/04/16 09:04; Admin Dose 20 MG; Start 10/19/16 at 09:00 Ondansetron HCl (Zofran Inj) 4 mg Q6H PRN IV NAUSEA AND/OR VOMITING; Start at 22:30 Acetaminophen (Tylenol Tab) 650 mg Q6H PRN PO PAIN LEVEL 1-3 OR FEVER Last administered on 11/01/16 02:36; Admin Dose 650 MG; Start 10/18/16 at 22:30 Docusate Sodium (Colace) 100 mg Q12H PRN PO CONSTIPATION Last administered on 18:01; Admin Dose 100 MG; Start 10/18/16 at 22:30 Bisacodyl (Dulcolax Supp) 10 mg DAILY PRN SC CONSTIPATION Last administered on 10/26/16 07:04; Admin Dose 10 MG; Start 10/18/16 at 22:30 Diagnostic Test (Pha) (Accucheck) 1 ea 02 XX Last administered on 10/27/16 02: 31; Admin Dose 1 EA; Start 10/19/16 at 02:00 Miscellaneous Information 1 ea NOTE XX ; Start 10/18/16 at 22:30 Glucose (Glutose) 15 gm Q15M PRN PO DECREASED GLUCOSE; Start 10/18/16 at 22:30 Glucose (Glutose) 22.5 gm Q15M PRN PO DECREASED GLUCOSE; Start 10/18/16 at 22: 30 Dextrose (D50w Syringe) 25 ml Q15M PRN IV DECREASED GLUCOSE; Start 10/18/16 at 22:30 Dextrose (D50w Syringe) 50 ml Q15M PRN IV DECREASED GLUCOSE Last administered on 10/27/16 09:35; Admin Dose 50 ML; Start 10/18/16 at 22:30 Glucagon (Glucagen) 1 mg Q15M PRN IM DECREASED GLUCOSE; Start 10/18/16 at 22:30 Glucose (Glutose) 15 gm Q15M PRN BUCCAL DECREASED GLUCOSE; Start 10/18/16 at 22 :30 Linezolid (Zyvox) 600 mg BID PO Last administered on 11/04/16 09:03; Admin Dose 600 MG; Start 10/20/16 at 12:15 Aspirin (Halfprin) 81 mg DAILY PO Last administered on 11/04/16 09:04; Admin Dose 81 MG; Start 10/22/16 at 09:00 Lactobacillus Acidoph/Bulgaricus (Floranex) 1 tab BID PO Last administered on 09:03; Admin Dose 1 TAB; Start 10/22/16 at 21:00 Senna/Docusate Sodium (Senokot-S) 2 tab HS PO Last administered on 11/03/16 21: 43; Admin Dose 2 TAB; Start 10/22/16 at 21:00 Lactulose (Enulose) 20 gm TID PRN PO CONSTIPATION Last administered on 13:32; Admin Dose 20 GM; Start 10/23/16 at 17:30 Clonidine HCl 1 patch 1 patch Q7D TRANSDERM Last administered on 10/31/16 08:54 ; Admin Dose 1 PATCH; Start 10/24/16 at 09:00 Meropenem (Merrem 500 Mg/ 100 ml (Pmx)) 100 ml @ 200 mls/hr Q24H IVPB Last administered on 11/03/16 22:22; Admin Dose 200 MLS/HR; Start 10/26/16 at 21:00 Sodium Biphosphate/ Sodium Phosphate (Fleet Enema) 133 ml DAILY PRN SC CONSTIPATION Last administered on 10/26/16 18:33; Admin Dose 133 ML; Start at 18:00 Hydromorphone HCl (Dilaudid LOADER TECHNICIAN) 0 MG/HR CONTINUOUS RATE ... LOADER TECHNICIAN IV Last administered on 11/04/16 03:16; Admin Dose 6 MG; Start 10/27/16 at 12:30 Heparin Sodium (Porcine) (Heparin (5000 Units/0.5 ml)) 5,000 unit BID SC Last administered on 11/04/16 09:10; Admin Dose 5,000 UNIT; Start 10/27/16 at 12:30 Naloxone HCl (Narcan) 0.2 mg Q2M PRN IV RR 8 BREATHS/MIN OR LESS; Start at 13:00 Oxycodone/ Acetaminophen (Percocet (5/ 325)) 2 tab Q4H PRN PO PAIN Last administered on 11/03/16 18:56; Admin Dose 2 TAB; Start 10/28/16 at 15:00 Insulin Glargine (Lantus) 4 unit DAILY@20 SC Last administered on 11/03/16 22: 27; Admin Dose 4 UNIT; Start 10/29/16 at 20:00 Benazepril HCl (Lotensin) 10 mg BID PO Last administered on 11/04/16 09:04; Admin Dose 10 MG; Start 10/29/16 at 21:00 Metronidazole (Flagyl) 500 mg Q8 PO Last administered on 11/04/16 05:44; Admin Dose 500 MG; Start 10/31/16 at 14:00 Nitroglycerin (Nitroglycerin (Sl Tab) 0.4 Mg) 1 tab Q5M PRN SL ANGINA Last administered on 11/01/16 21:24; Admin Dose 1 TAB; Start 11/01/16 at 21:30 Nitroglycerin (Nitroglycerin (Sl Tab) 0.4 Mg) 1 tab Q5M PRN SL CHEST PAIN; Start 11/01/16 at 22:30 Amlodipine Besylate (Norvasc) 5 mg DAILY PO Last administered on 11/04/16 10:45 ; Admin Dose 5 MG; Start 11/04/16 at 09:00 Hydromorphone HCl (Dilaudid) 2 mg Q2H PRN IV PAIN Last administered on 09:54; Admin Dose 2 MG; Start 11/03/16 at 19:30 Heparin Sodium (Porcine) (Heparin (1000 Units/ml)) 5,000 unit ONCE ONCE IV ; Start 11/04/16 at 11:30; Stop 11/04/16 at 11:31; Status LULY NERI Nov 04, 2016 11:57
[2016-11-04 12:27] LABS: ADD SCAN DIFF NO
[2016-11-04 12:58] LABS: ABNORMAL IP MESSAGE 1; BASOPHIL # 0.1 10^3/ul (0.0-0.1); BASOPHILS % 0.2 % (0.0-2.0); HEMATOCRIT 26.7 % (42.0-52.0); HEMOGLOBIN 8.7 g/dl (14.0-18.0); LYMPHOCYTES % 6.9 % (15.0-51.0); MEAN CORPUSCULAR HEMOGLOBIN 31.6 pg (29.0-33.0); MEAN CORPUSCULAR HGB CONC 32.6 g/dl (32.0-37.0); MEAN CORPUSCULAR VOLUME 97.1 fl (82.0-101.0); MEAN PLATELET VOLUME 11.8 fl (7.4-10.4); MONOCYTE # 1.8 10^3/ul (0.3-0.9); MONOCYTES % 6.2 % (0.0-11.0); NEUTROPHIL # 24.4 10^3/ul (1.6-7.5); NEUTROPHILS % 85.8 % (39.0-77.0); PLATELET COUNT 346 10^3/UL (140-415); RED BLOOD COUNT 2.75 10^6/ul (4.70-6.10); RED CELL DISTRIBUTION WIDTH 18.7 % (11.5-14.5); WHITE BLOOD COUNT 28.4 10^3/ul (4.8-10.8)
[2016-11-04 13:15] LABS: INR 3.39; PROTIME 34.8 Sec (12.2-14.2); PT RATIO 2.7
[2016-11-04 13:16] LABS: PARTIAL THROMBOPLASTIN TIME 52.8 Sec (25.0-35.0)
[2016-11-04] MEDS: HEPARIN 25000 UNITS/250 ML 250 ML IV SCH (13:40)
--- NOTE | 2016-11-04 13:52 | PN ---
DATE: 11/04/2016 SUBJECTIVE: No acute changes. The patient is in hemodialysis, on face mask, complaining of left lo wer extremity pain. He is in no distress. VITAL SIGNS: Temperature 97.7, pulse 88, respirations 20, full blood pressure 120/79, saturation 94 % on 15 liters face mask. WBC 28.4, H and H 8.7 and 26.7, platelets 346, neutrophils 85.8. INDWELLINGS: Right femoral Usama catheter placed 2 days ago. ANTIMICROBIALS: 1. Meropenem. 2. Zyvox. 3. Flagyl. DIAGNOSTICS: CT of the chest and thorax revealed pulmonary embolus in the right lower lobe, consoli dative infiltrates with air bronchograms and bilateral pleural effusions in the bases of the lungs. PHYSICAL EXAMINATION: GENERAL: This is a well-developed, ill-appearing, elderly man who is awake, in no distress . HEENT: Head atraumatic, normocephalic. Sclerae anicteric. Buccal mucosa dry. NECK: Supple, trachea midline. CHEST: Rise symmetrical. Breath sounds with bilateral crackles. HEART: S1, S2. ABDOMEN: Soft, bowel tones present. EXTREMITIES: With right toes gangrene, left above knee amputation, with Mauricio wrap. ASSESSMENT: 1. Severe sepsis with persistent leukocytosis likely secondary to #2. 2. 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 3. Severe peripheral vascular disease. 4. End-stage renal disease, hemodialysis dependent. 5. Anemia. 6. Acute respiratory failure. 7. Pulmonary embolism. 8. Diabetes. PLAN: The patient is doing poorly. Plan to start him on Heparin drip. We will continue him on bro ad-spectrum antibiotics and follow recommendations of consultants. Continue pain management. Dictated By: DARLENE MCKEE KINDERGARTEN PREP TEACHER for NICOLE SANTANA/SIN Conf#: [id number] DID#: [id number]
--- NOTE | 2016-11-04 19:38 | OPR ---
Date/Time of Note Date/Time of Note DATE: 11/04/16 TIME: 19:36 Operative Report Free Text/Dictation DATE OF OPERATION: 11/04/2016 SURGEON: Bradley Carr MD PREOPERATIVE DIAGNOSIS: ESRD, malfunctioning right groin catheter POSTOPERATIVE DIAGNOSIS: same ANESTHESIA: Local BLOOD LOSS: minimal COMPLICATIONS: None. ACCESS: Right common femoral vein INDICATIONS: This is a 65 year-old female with ESRD requiring dialysis, PE and respiratory distress. He has a malfunctioning catheter. Patient and family have been informed of the alternatives, risks, and benefits. Risks including but not limited to bleeding, thrombosis, embolization, myocardial infarction, , device malfunction, infection, pneumothorax, nephrotoxicity and patient has agreed to proceed. PROCEDURE: 1. Ultrasound guided access of right common femoral vein 2. Right common femoral vein non-tunneled hemodialysis catheter placement DESCRIPTION: The patient was in supine position in her ICU bed. Bed was placed in slight Trendelenburg position and the groin was prepped and draped with sterile technique. The central catheter was flushed with heparin to ensure function of each port. Landmarks were identified and the skin entry site was chosen using ultrasound guidance. The skin And subcutaneous tissue were anesthetized with 1% lidocaine. The vein was then located with a needle with a 10 mL syringe using ultrasound guidance. The needle was then directed towards the vein in a new access site and was entered. The needle position was secured and syringe was removed. The hub was occluded to prevent venous air embolus. The guidewire was passed easily and the needle was removed while the wire was held in place. A small incision was then made at the point of the wire entry. The dilator was placed over the wire and the tract gently dilated. The catheter was fed over the wire, ensuring the wire exited from the port before advancing the catheter. The catheter was inserted to the desired depth and the wire removed. Each port was aspirated to ensure adequate blood flow and then flushed with heparinized saline solution. The catheter was secured in place with a 2-0 nylon suture and a sterile dressing was applied. The patient tolerated the procedure well and was in stable condition. All instrument, sponge and needle counts were correct 2. BRADLEY CARR MD Nov 04, 2016 19:38
[2016-11-04] MEDS: MEROPENEM 500 MG/100 ML (PMX) 100 ML IVPB SCH (20:16)
[2016-11-04] MEDS: SENNA/DOCUSATE NA (8.6MG/50MG) TAB PO SCH (20:18)
[2016-11-04] MEDS: INSULIN GLARGINE [LANtus] 3 ML PEN SC SCH (20:34)
[2016-11-05] VITALS (25 sets, daily range): BP systolic 116–149; BP diastolic 52–117; PULSE 70–90; RESP 11–21
[2016-11-05] MEDS: HYDROmorphONE 0.2 MG/ML PCA IV SCH ×2 (01:02→09:34)
[2016-11-05] MEDS: ACCU-CHEK XX SCH (02:00)
[2016-11-05] MEDS: HEPARIN 25000 UNITS/250 ML 250 ML IV SCH (02:03)
[2016-11-05] MEDS: metroNIDAZOLE 500 MG TAB PO SCH (05:31)
[2016-11-05] MEDS: HYDROmorphONE 2 MG/ML SYG IV PRN ×3 (05:32→20:35)
[2016-11-05 06:08] LABS: ADD SCAN DIFF NO
[2016-11-05 06:29] LABS: ABNORMAL IP MESSAGE 1; BASOPHIL # 0.1 10^3/ul (0.0-0.1); BASOPHILS % 0.2 % (0.0-2.0); EOSINOPHILS # 0.1 10^3/ul (0.0-0.5); EOSINOPHILS % 0.4 % (0.0-7.0); HEMATOCRIT 29.4 % (42.0-52.0); HEMOGLOBIN 9.3 g/dl (14.0-18.0); LYMPHOCYTES # 2.5 10^3/ul (0.8-2.9); LYMPHOCYTES % 9.9 % (15.0-51.0); MEAN CORPUSCULAR HEMOGLOBIN 31.1 pg (29.0-33.0); MEAN CORPUSCULAR HGB CONC 31.6 g/dl (32.0-37.0); MEAN CORPUSCULAR VOLUME 98.3 fl (82.0-101.0); MEAN PLATELET VOLUME 11.7 fl (7.4-10.4); MONOCYTE # 1.8 10^3/ul (0.3-0.9); MONOCYTES % 7.1 % (0.0-11.0); NEUTROPHIL # 20.2 10^3/ul (1.6-7.5); NEUTROPHILS % 81.5 % (39.0-77.0); PLATELET COUNT 372 10^3/UL (140-415); RED BLOOD COUNT 2.99 10^6/ul (4.70-6.10); WHITE BLOOD COUNT 24.8 10^3/ul (4.8-10.8)
[2016-11-05 06:51] LABS: CALCIUM 7.7 mg/dl (8.4-10.2); CREATININE 8.38 mg/dl (0.61-1.24); POTASSIUM 5.2 mmol/L (3.5-5.1)
[2016-11-05] MEDS: ALBUTEROL HFA 8 GM INHALER INH SCH ×3 (06:51→22:47)
[2016-11-05] MEDS: INSULIN ASPART [NOVOLOG] 3 ML PEN SC SCH ×4 (07:35→21:15)
[2016-11-05] MEDS: LACTOBACILLUS CHEW TAB PO SCH ×2 (08:52→21:24)
[2016-11-05] MEDS: ASPIRIN (EC) 81 MG TAB PO SCH (08:52)
[2016-11-05] MEDS: ZYVOX 600 MG TAB PO SCH ×3 (08:53→22:48)
[2016-11-05] MEDS: FAMOTIDINE 20 MG TAB PO SCH (08:53)
[2016-11-05] MEDS: BENAZEPRIL 10 MG TAB PO SCH ×2 (08:53→21:25)
[2016-11-05] MEDS: METOPROLOL 25 MG TAB PO SCH ×2 (08:53→21:26)
--- NOTE | 2016-11-05 10:50 | PN ---
Date/Time of Note Date/Time of Note DATE: 11/05/16 TIME: 10:48 Assessment/Plan Lines/Catheters IV Catheter Type (from [facility]): Peripheral IV Correa in Place (from [facility]): No Assessment/Plan Chief Complaint/Hosp Course -Bilateral lower extremity atherosclerosis with gangrene: S/P AKA -PE: Continue anticoagulation -Right lower extremity gangrene: will schedule patient for angiogram pending cathead worker availability and resolution of WBC/leukocytosis -End-stage renal disease: New Usama catheter placed, will schedule for a new perm catheter -Optimize vascular status (BP meds, diet, nutrition, exercise, sugar control, antiplatelets). -Continue antibiotics - cultures of graft ESBL -PT/OT OOB and FWB as tolerated -Appreciate cardiology evaluation -Discussed findings, plan and management with the patient and family at the bedside and they understand with certified business test analyst. -Thank you for allowing us to participate in the care of your patient. Please call with any questions. Problems: Subjective 24 Hr Interval Summary Pt has PE started on Hep gtt, catheter exchanged Exam/Review of Systems Vital Signs Vitals Vital Signs Date Time Temp Pulse Resp B/P Pulse Ox O2 Delivery O2 Flow Rate FiO2 11/05/16 10:35 76 11/05/16 09:00 20 129/58 100 Nasal Cannula 4.0 11/05/16 08:00 98.4 11/04/16 05:37 100 Intake and Output 11/04/16 11/04/16 11/05/16 15:00 23:00 07:00 Intake Total 801 ml 394 ml 326 ml Output Total 2520 ml 0 ml 5 ml Balance -1719 ml 394 ml 321 ml Exam Free Text/Dictation GENERAL: Alert and oriented x3, PULMONARY: Clear to auscultation bilaterally. CARDIOVASCULAR: S1, S2 present. ABDOMEN: Soft, nontender, nondistended. Bowel sounds positive. EXTREMITIES: Right lower extremity palpable femoral pulse, nonpalpable pedal pulse. Motor, sensory intact. Cap refill 3 to 4 seconds. Gangrene of the first and second toe with surrounding erythema resolving and pain of the first toe improved Left lower extremity: Palpable femoral pulse, AKA-stump with dressing intact and dry -removed and incision clean Results Result Diagram: 11/05/16 0526 11/05/16 0526 CYNDI CARR MD Nov 05, 2016 10:50
--- NOTE | 2016-11-05 10:57 | CONS ---
Date/Time of Note Date/Time of Note DATE: 11/05/16 TIME: 10:55 Consult Date/Type/Reason Admit Date/Time Oct 18, 2016 at 16:52 Initial Consult Date 11/04/16 Type of Consultation: Pulmonary/critical care Ordering Provider: OZZIE HERRERA MD Subjective Patient awake alert oriented comfortable at rest continues heparin drip Off vasopressors Objective Vital Signs Date Time Temp Pulse Resp B/P Pulse Ox O2 Delivery O2 Flow Rate FiO2 11/05/16 10:35 76 11/05/16 10:00 12 131/62 100 Nasal Cannula 4.0 11/05/16 08:00 98.4 11/04/16 05:37 100 Intake and Output 11/04/16 11/04/16 11/05/16 15:00 23:00 07:00 Intake Total 801 ml 394 ml 326 ml Output Total 2520 ml 0 ml 5 ml Balance -1719 ml 394 ml 321 ml Exam GENERAL: Moderately obese gentleman comfortable at rest no acute distress VITAL SIGNS: per chart NECK: Supple. No JVD or lymphadenopathy. CARDIAC EXAM: S1, S2. No added sounds or murmurs. CHEST: clear bilaterally, No added sounds, rales or wheezes ABDOMEN: Soft, nontender. No guarding or rebound. EXTREMITIES: No cyanosis, clubbing edema +2 NEUROLOGIC: Generalized weakness. Lower extremity wounds Results/Medications Result Diagram: 11/05/16 0526 11/05/16 0526 Results 24 hrs Chest x-ray Bilateral pleural effusions Laboratory Tests Test 11/04/16 12:00 11/04/16 14:41 11/04/16 18:09 11/04/16 20:29 White Blood Count 28.4 H Red Blood Count 2.75 L Hemoglobin 8.7 L Hematocrit 26.7 L Mean Corpuscular Volume 97.1 Mean Corpuscular Hemoglobin 31.6 Mean Corpuscular Hemoglobin Concent 32.6 Red Cell Distribution Width 18.7 H Platelet Count 346 Mean Platelet Volume 11.8 H Neutrophils % 85.8 H Lymphocytes % 6.9 L Monocytes % 6.2 Eosinophils % 0.0 Basophils % 0.2 Nucleated Red Blood Cells % 0.0 Neutrophils # 24.4 H Lymphocytes # 2.0 Monocytes # 1.8 H Eosinophils # 0.0 Basophils # 0.1 Nucleated Red Blood Cells # 0.0 Prothrombin Time 34.8 #H Prothrombin Time Ratio 2.7 INR International Normalized Ratio 3.39 Activated Partial Thromboplast Time 52.8 H > 180.0 *H Bedside Glucose 138 205 Test 11/04/16 21:36 11/05/16 01:00 11/05/16 02:22 11/05/16 05:26 Bedside Glucose 101 123 Activated Partial Thromboplast Time 55.4 H 59.1 H White Blood Count 24.8 H Red Blood Count 2.99 L Hemoglobin 9.3 L Hematocrit 29.4 L Mean Corpuscular Volume 98.3 Mean Corpuscular Hemoglobin 31.1 Mean Corpuscular Hemoglobin Concent 31.6 L Red Cell Distribution Width 19.0 H Platelet Count 372 Mean Platelet Volume 11.7 H Neutrophils % 81.5 H Lymphocytes % 9.9 L Monocytes % 7.1 Eosinophils % 0.4 Basophils % 0.2 Nucleated Red Blood Cells % 0.0 Neutrophils # 20.2 H Lymphocytes # 2.5 Monocytes # 1.8 H Eosinophils # 0.1 Basophils # 0.1 Nucleated Red Blood Cells # 0.0 Sodium Level 132 L Potassium Level 5.2 H Chloride Level 97 Carbon Dioxide Level 20 L Anion Gap 20 #H Blood Urea Nitrogen 69 H Creatinine 8.38 H Glucose Level 128 Calcium Level 7.7 L Magnesium Level 2.0 Test 11/05/16 08:21 Bedside Glucose 133 Medications Current Medications Metoprolol Tartrate (Lopressor) 25 mg BID PO Last administered on 11/04/16 20: 18; Admin Dose 25 MG; Start 10/18/16 at 19:21 Hydralazine HCl (Apresoline) 10 mg Q4H PRN IV SBP>150 mm Hg Last administered on 10/27/16 20:38; Admin Dose 10 MG; Start 10/18/16 at 20:00 Albuterol (Ventolin Hfa) 2 puff Q8 INH Last administered on 11/05/16 06:51; Admin Dose 2 PUFF; Start 10/18/16 at 22:30 Famotidine (Pepcid) 20 mg DAILY PO Last administered on 11/05/16 08:53; Admin Dose 20 MG; Start 10/19/16 at 09:00 Ondansetron HCl (Zofran Inj) 4 mg Q6H PRN IV NAUSEA AND/OR VOMITING; Start at 22:30 Acetaminophen (Tylenol Tab) 650 mg Q6H PRN PO PAIN LEVEL 1-3 OR FEVER Last administered on 11/01/16 02:36; Admin Dose 650 MG; Start 10/18/16 at 22:30 Docusate Sodium (Colace) 100 mg Q12H PRN PO CONSTIPATION Last administered on 18:01; Admin Dose 100 MG; Start 10/18/16 at 22:30 Bisacodyl (Dulcolax Supp) 10 mg DAILY PRN [place] CONSTIPATION Last administered on 10/26/16 07:04; Admin Dose 10 MG; Start 10/18/16 at 22:30 Diagnostic Test (Pha) (Accucheck) 1 ea 02 XX Last administered on 10/27/16 02: 31; Admin Dose 1 EA; Start 10/19/16 at 02:00 Miscellaneous Information 1 ea NOTE XX ; Start 10/18/16 at 22:30 Glucose (Glutose) 15 gm Q15M PRN PO DECREASED GLUCOSE; Start 10/18/16 at 22:30 Glucose (Glutose) 22.5 gm Q15M PRN PO DECREASED GLUCOSE; Start 10/18/16 at 22: 30 Dextrose (D50w Syringe) 25 ml Q15M PRN IV DECREASED GLUCOSE; Start 10/18/16 at 22:30 Dextrose (D50w Syringe) 50 ml Q15M PRN IV DECREASED GLUCOSE Last administered on 10/27/16 09:35; Admin Dose 50 ML; Start 10/18/16 at 22:30 Glucagon (Glucagen) 1 mg Q15M PRN IM DECREASED GLUCOSE; Start 10/18/16 at 22:30 Glucose (Glutose) 15 gm Q15M PRN BUCCAL DECREASED GLUCOSE; Start 10/18/16 at 22 :30 Linezolid (Zyvox) 600 mg BID PO Last administered on 11/05/16 08:53; Admin Dose 600 MG; Start 10/20/16 at 12:15 Aspirin (Halfprin) 81 mg DAILY PO Last administered on 11/05/16 08:52; Admin Dose 81 MG; Start 10/22/16 at 09:00 Lactobacillus Acidoph/Bulgaricus (Floranex) 1 tab BID PO Last administered on 08:52; Admin Dose 1 TAB; Start 10/22/16 at 21:00 Senna/Docusate Sodium (Senokot-S) 2 tab HS PO Last administered on 11/04/16 20: 18; Admin Dose 2 TAB; Start 10/22/16 at 21:00 Lactulose (Enulose) 20 gm TID PRN PO CONSTIPATION Last administered on 13:32; Admin Dose 20 GM; Start 10/23/16 at 17:30 Clonidine HCl 1 patch 1 patch Q7D TRANSDERM Last administered on 10/31/16 08:54 ; Admin Dose 1 PATCH; Start 10/24/16 at 09:00 Meropenem (Merrem 500 Mg/ 100 ml (Pmx)) 100 ml @ 200 mls/hr Q24H IVPB Last administered on 11/04/16 20:16; Admin Dose 200 MLS/HR; Start 10/26/16 at 21:00 Sodium Biphosphate/ Sodium Phosphate (Fleet Enema) 133 ml DAILY PRN [place] CONSTIPATION Last administered on 10/26/16 18:33; Admin Dose 133 ML; Start at 18:00 Hydromorphone HCl (Dilaudid [employer]) 0 MG/HR CONTINUOUS RATE ... FRONT LINE SUPERVISOR IV Last administered on 11/05/16 09:34; Admin Dose 6 MG; Start 10/27/16 at 12:30 Naloxone HCl (Narcan) 0.2 mg Q2M PRN IV RR 8 BREATHS/MIN OR LESS; Start at 13:00 Oxycodone/ Acetaminophen (Percocet (5/ 325)) 2 tab Q4H PRN PO PAIN Last administered on 11/03/16 18:56; Admin Dose 2 TAB; Start 10/28/16 at 15:00 Insulin Glargine (Lantus) 4 unit DAILY@20 SC Last administered on 11/04/16 20: 34; Admin Dose 4 UNIT; Start 10/29/16 at 20:00 Benazepril HCl (Lotensin) 10 mg BID PO Last administered on 11/04/16 20:17; Admin Dose 10 MG; Start 10/29/16 at 21:00 Metronidazole (Flagyl) 500 mg Q8 PO Last administered on 11/05/16 05:31; Admin Dose 500 MG; Start 10/31/16 at 14:00 Nitroglycerin (Nitroglycerin (Sl Tab) 0.4 Mg) 1 tab Q5M PRN SL ANGINA Last administered on 11/01/16 21:24; Admin Dose 1 TAB; Start 11/01/16 at 21:30 Nitroglycerin (Nitroglycerin (Sl Tab) 0.4 Mg) 1 tab Q5M PRN SL CHEST PAIN; Start 11/01/16 at 22:30 Amlodipine Besylate (Norvasc) 5 mg DAILY PO Last administered on 11/04/16 10:45 ; Admin Dose 5 MG; Start 11/04/16 at 09:00 Hydromorphone HCl (Dilaudid) 2 mg Q2H PRN IV PAIN Last administered on 10:42; Admin Dose 2 MG; Start 11/03/16 at 19:30 Assessment/Plan Chief Complaint/Hosp Course Assessment 1. Hypoxemic respiratory failure secondary to volume overload with compressive atelectasis 2. Possible component of pneumonia 3. Acute pulmonary embolism right lower lobe 4. Incidental solitary nodule found on chest CT 5. Peripheral vascular disease with lower extremity wounds 6. End-stage renal failure on hemodialysis Plan 1. Continue hemodialysis with more volume removal if tolerated 2. Continue broad-spectrum antibiotics per infectious diseases 3. Continue supplemental O2 and incentive spirometry 4. Anticoagulation for acute pulmonary embolism currently on heparin drip. Will continue heparin drip until patient requires no further vascular intervention. Disposition Consider transfer to telemetry in stable this afternoon Problems: MISAEL DICKEY MD, [facility] Nov 05, 2016 10:57
--- NOTE | 2016-11-05 11:12 | PN ---
Date/Time of Note Date/Time of Note DATE: 11/05/16 TIME: 11:10 Assessment/Plan VTE Prophylaxis VTE Prophylaxis Intervention: heparin Lines/Catheters IV Catheter Type (from Nrs): Peripheral IV Urinary Cath still in place: No Assessment/Plan Chief Complaint/Hosp Course Assessment and plan 1. 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 Patient does have history of bypass on area that had thrombosed. 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 Also noted with right lower extremity gangrene. 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 Continue with analgesics. wound care per vascular surgeon Pain management physician consulted for further assistance. Await recommendations. cont with abx per ID (ESBL in wound) 2. ESRD on dialysis. Continue on HD. Follow-up with nephrology recommendations 3. Hypertension. Continue on antihypertensives and adjust needed. Stable 4. Anemia of chronic disease. H&H stable. Monitor for now. 5. History of diabetes. Continue on insulin regimen. Will adjust as needed 6. CAD. Continue on antiplatelet therapy 7. Peripheral vascular disease. Continue aggressive medical management, vascular surgeon has been consulted 8. Acute respiratory distress. Likely secondary to fluid overload. Resolved status post urgent hemodialysis 9. Leukocytosis. Continue IV antibiotics, infectious disease doctor has been consulted 10. Pulmonary embolism. Start the patient on heparin and transitioned to oral anticoagulation as per vascular surgeon Disposition and plan:. Continue with provider relations consultant recommendations. cont with analgesics Problems: Subjective 24 Hr Interval Summary Free Text/Dictation Patient continues to complain of having left lower extremity pain Tolerating oral intake No nausea vomiting diarrhea Exam/Review of Systems Vital Signs Vitals Vital Signs Date Time Temp Pulse Resp B/P Pulse Ox O2 Delivery O2 Flow Rate FiO2 11/05/16 10:35 76 11/05/16 10:00 12 131/62 100 Nasal Cannula 4.0 11/05/16 08:00 98.4 11/04/16 05:37 100 Intake and Output 11/04/16 11/04/16 11/05/16 15:00 23:00 07:00 Intake Total 801 ml 394 ml 326 ml Output Total 2520 ml 0 ml 5 ml Balance -1719 ml 394 ml 321 ml Exam General: The patient is well-developed, Not in acute distress. HEENT: Atraumatic, normocephalic. The pupils are equal and round . Neck: Supple Chest: Normal Lungs: Clear to auscultation bilaterally Heart: Normal S1-S2, Regular rhythm and rate. 2/6 systolic murmur Abdomen: Soft , nontender, nondistended , bowel sounds are present. Extremities: Status post left AKA, no edema no cyanosis Neurologic: Normal mental status,The patient is awake, alert and oriented . Results Result Diagram: 11/05/16 0526 11/05/16 0526 Results 24 hrs Laboratory Tests Test 11/04/16 12:00 11/04/16 14:41 11/04/16 18:09 11/04/16 20:29 White Blood Count 28.4 H Red Blood Count 2.75 L Hemoglobin 8.7 L Hematocrit 26.7 L Mean Corpuscular Volume 97.1 Mean Corpuscular Hemoglobin 31.6 Mean Corpuscular Hemoglobin Concent 32.6 Red Cell Distribution Width 18.7 H Platelet Count 346 Mean Platelet Volume 11.8 H Neutrophils % 85.8 H Lymphocytes % 6.9 L Monocytes % 6.2 Eosinophils % 0.0 Basophils % 0.2 Nucleated Red Blood Cells % 0.0 Neutrophils # 24.4 H Lymphocytes # 2.0 Monocytes # 1.8 H Eosinophils # 0.0 Basophils # 0.1 Nucleated Red Blood Cells # 0.0 Prothrombin Time 34.8 #H Prothrombin Time Ratio 2.7 INR International Normalized Ratio 3.39 Activated Partial Thromboplast Time 52.8 H > 180.0 *H Bedside Glucose 138 205 Test 11/04/16 21:36 11/05/16 01:00 11/05/16 02:22 11/05/16 05:26 Bedside Glucose 101 123 Activated Partial Thromboplast Time 55.4 H 59.1 H White Blood Count 24.8 H Red Blood Count 2.99 L Hemoglobin 9.3 L Hematocrit 29.4 L Mean Corpuscular Volume 98.3 Mean Corpuscular Hemoglobin 31.1 Mean Corpuscular Hemoglobin Concent 31.6 L Red Cell Distribution Width 19.0 H Platelet Count 372 Mean Platelet Volume 11.7 H Neutrophils % 81.5 H Lymphocytes % 9.9 L Monocytes % 7.1 Eosinophils % 0.4 Basophils % 0.2 Nucleated Red Blood Cells % 0.0 Neutrophils # 20.2 H Lymphocytes # 2.5 Monocytes # 1.8 H Eosinophils # 0.1 Basophils # 0.1 Nucleated Red Blood Cells # 0.0 Sodium Level 132 L Potassium Level 5.2 H Chloride Level 97 Carbon Dioxide Level 20 L Anion Gap 20 #H Blood Urea Nitrogen 69 H Creatinine 8.38 H Glucose Level 128 Calcium Level 7.7 L Magnesium Level 2.0 Test 11/05/16 08:21 Bedside Glucose 133 Medications Medications Current Medications Metoprolol Tartrate (Lopressor) 25 mg BID PO Last administered on 11/04/16 20: 18; Admin Dose 25 MG; Start 10/18/16 at 19:21 Hydralazine HCl (Apresoline) 10 mg Q4H PRN IV SBP>150 mm Hg Last administered on 10/27/16 20:38; Admin Dose 10 MG; Start 10/18/16 at 20:00 Albuterol (Ventolin Hfa) 2 puff Q8 INH Last administered on 11/05/16 06:51; Admin Dose 2 PUFF; Start 10/18/16 at 22:30 Famotidine (Pepcid) 20 mg DAILY PO Last administered on 11/05/16 08:53; Admin Dose 20 MG; Start 10/19/16 at 09:00 Ondansetron HCl (Zofran Inj) 4 mg Q6H PRN IV NAUSEA AND/OR VOMITING; Start at 22:30 Acetaminophen (Tylenol Tab) 650 mg Q6H PRN PO PAIN LEVEL 1-3 OR FEVER Last administered on 11/01/16 02:36; Admin Dose 650 MG; Start 10/18/16 at 22:30 Docusate Sodium (Colace) 100 mg Q12H PRN PO CONSTIPATION Last administered on 18:01; Admin Dose 100 MG; Start 10/18/16 at 22:30 Bisacodyl (Dulcolax Supp) 10 mg DAILY PRN [place] CONSTIPATION Last administered on 10/26/16 07:04; Admin Dose 10 MG; Start 10/18/16 at 22:30 Diagnostic Test (Pha) (Accucheck) 1 ea 02 XX Last administered on 10/27/16 02: 31; Admin Dose 1 EA; Start 10/19/16 at 02:00 Miscellaneous Information 1 ea NOTE XX ; Start 10/18/16 at 22:30 Glucose (Glutose) 15 gm Q15M PRN PO DECREASED GLUCOSE; Start 10/18/16 at 22:30 Glucose (Glutose) 22.5 gm Q15M PRN PO DECREASED GLUCOSE; Start 10/18/16 at 22: 30 Dextrose (D50w Syringe) 25 ml Q15M PRN IV DECREASED GLUCOSE; Start 10/18/16 at 22:30 Dextrose (D50w Syringe) 50 ml Q15M PRN IV DECREASED GLUCOSE Last administered on 10/27/16 09:35; Admin Dose 50 ML; Start 10/18/16 at 22:30 Glucagon (Glucagen) 1 mg Q15M PRN IM DECREASED GLUCOSE; Start 10/18/16 at 22:30 Glucose (Glutose) 15 gm Q15M PRN BUCCAL DECREASED GLUCOSE; Start 10/18/16 at 22 :30 Linezolid (Zyvox) 600 mg BID PO Last administered on 11/05/16 08:53; Admin Dose 600 MG; Start 10/20/16 at 12:15 Aspirin (Halfprin) 81 mg DAILY PO Last administered on 11/05/16 08:52; Admin Dose 81 MG; Start 10/22/16 at 09:00 Lactobacillus Acidoph/Bulgaricus (Floranex) 1 tab BID PO Last administered on 08:52; Admin Dose 1 TAB; Start 10/22/16 at 21:00 Senna/Docusate Sodium (Senokot-S) 2 tab HS PO Last administered on 11/04/16 20: 18; Admin Dose 2 TAB; Start 10/22/16 at 21:00 Lactulose (Enulose) 20 gm TID PRN PO CONSTIPATION Last administered on 13:32; Admin Dose 20 GM; Start 10/23/16 at 17:30 Clonidine HCl 1 patch 1 patch Q7D TRANSDERM Last administered on 10/31/16 08:54 ; Admin Dose 1 PATCH; Start 10/24/16 at 09:00 Meropenem (Merrem 500 Mg/ 100 ml (Pmx)) 100 ml @ 200 mls/hr Q24H IVPB Last administered on 11/04/16 20:16; Admin Dose 200 MLS/HR; Start 10/26/16 at 21:00 Sodium Biphosphate/ Sodium Phosphate (Fleet Enema) 133 ml DAILY PRN [place] CONSTIPATION Last administered on 10/26/16 18:33; Admin Dose 133 ML; Start at 18:00 Naloxone HCl (Narcan) 0.2 mg Q2M PRN IV RR 8 BREATHS/MIN OR LESS; Start at 13:00 Oxycodone/ Acetaminophen (Percocet (5/ 325)) 2 tab Q4H PRN PO PAIN Last administered on 11/03/16 18:56; Admin Dose 2 TAB; Start 10/28/16 at 15:00 Insulin Glargine (Lantus) 4 unit DAILY@20 SC Last administered on 11/04/16 20: 34; Admin Dose 4 UNIT; Start 10/29/16 at 20:00 Benazepril HCl (Lotensin) 10 mg BID PO Last administered on 11/04/16 20:17; Admin Dose 10 MG; Start 10/29/16 at 21:00 Metronidazole (Flagyl) 500 mg Q8 PO Last administered on 11/05/16 05:31; Admin Dose 500 MG; Start 10/31/16 at 14:00 Nitroglycerin (Nitroglycerin (Sl Tab) 0.4 Mg) 1 tab Q5M PRN SL ANGINA Last administered on 11/01/16 21:24; Admin Dose 1 TAB; Start 11/01/16 at 21:30 Nitroglycerin (Nitroglycerin (Sl Tab) 0.4 Mg) 1 tab Q5M PRN SL CHEST PAIN; Start 11/01/16 at 22:30 Amlodipine Besylate (Norvasc) 5 mg DAILY PO Last administered on 11/04/16 10:45 ; Admin Dose 5 MG; Start 11/04/16 at 09:00 Hydromorphone HCl (Dilaudid) 2 mg Q2H PRN IV PAIN Last administered on 10:42; Admin Dose 2 MG; Start 11/03/16 at 19:30 OZZIE HERRERA MD Nov 05, 2016 11:12
--- NOTE | 2016-11-05 11:42 | CONS ---
Date/Time of Note Date/Time of Note DATE: 11/05/16 TIME: 11:39 Assessment/Plan Assessment/Plan Chief Complaint/Hosp Course IMPRESSION: 1. Preoperative evaluation prior to lower extremity vascular surgery, possible amputation.-Now s/p LLE vascular surgery with failed graft and now Post-op s/p LE amputation 2. Hypertension, uncontrolled. 3. Abnormal electrocardiogram, assess for acute coronary syndrome. 4. Dyslipidemia. 5. Peripheral arterial disease, s/p LE amputation 6. Lower extremity nonhealing ulceration of the toe. 7. PNA 8. End-stage renal disease on hemodialysis. 9. Anemia. 10. Leukocytosis. 11. Cardiomyopathy-LVEF 40-45%-negative trop x 3 since admit-mild CHF by cxr systolic acute on chronic 12. CHest owyz-[id number] now resolved. Trop negative x 2 post epsiode/EKG 10/29 with lateral TWI(no sig changes)-no recurrence 14. PE Recc: -Tele -Continue current anti-hypertensives with ACEI/BB as tolerated -Local wound care/abx's and f/u cx data -Pain control -Continue ASA -HD for volume removal -Now to be transitioned to eliquis Problems: Consultation Date/Type/Reason Admit Date/Time Oct 18, 2016 at 16:52 Initial Consult Date 10/19/2016 Type of Consultation: Cardiology Reason for Consultation HTN Referring Provider: OZZIE HERRERA MD Exam/Review of Systems Vital Signs Vitals Vital Signs Date Time Temp Pulse Resp B/P Pulse Ox O2 Delivery O2 Flow Rate FiO2 11/05/16 11:00 75 11/05/16 10:00 12 131/62 100 Nasal Cannula 4.0 11/05/16 08:00 98.4 11/04/16 05:37 100 Intake and Output 11/04/16 11/04/16 11/05/16 15:00 23:00 07:00 Intake Total 801 ml 394 ml 326 ml Output Total 2520 ml 0 ml 5 ml Balance -1719 ml 394 ml 321 ml Exam Review of Systems: CONSTITUTIONAL: No fevers, chills. PULMONARY: No sob CARDIOVASCULAR: No chest pain/palpitations GASTROINTESTINAL: No nausea/vomiting. GENITOURINARY: No hematuria/dysuria. MUSCULOSKELETAL: No myagias/arthalgias. PSYCHIATRIC: The patient denies depression. NEUROLOGIC: No weakness Constitutional: alert, other (sleeping) Psych: no complaints Head: normocephalic ENMT: mucosa pink and moist Neck: jvd (9 cm water), supple Respiratory: diminished breath sounds (at bases/B) Cardiovascular: regular rate and rhythm Gastrointestinal: non-tender, soft Musculoskeletal: muscle tone (normal) Extremities: edema Neurological: other Results Result Diagram: 11/05/16 0526 11/05/16 0526 Results 24 hrs Laboratory Tests Test 11/04/16 12:00 11/04/16 14:41 11/04/16 18:09 11/04/16 20:29 White Blood Count 28.4 H Red Blood Count 2.75 L Hemoglobin 8.7 L Hematocrit 26.7 L Mean Corpuscular Volume 97.1 Mean Corpuscular Hemoglobin 31.6 Mean Corpuscular Hemoglobin Concent 32.6 Red Cell Distribution Width 18.7 H Platelet Count 346 Mean Platelet Volume 11.8 H Neutrophils % 85.8 H Lymphocytes % 6.9 L Monocytes % 6.2 Eosinophils % 0.0 Basophils % 0.2 Nucleated Red Blood Cells % 0.0 Neutrophils # 24.4 H Lymphocytes # 2.0 Monocytes # 1.8 H Eosinophils # 0.0 Basophils # 0.1 Nucleated Red Blood Cells # 0.0 Prothrombin Time 34.8 #H Prothrombin Time Ratio 2.7 INR International Normalized Ratio 3.39 Activated Partial Thromboplast Time 52.8 H > 180.0 *H Bedside Glucose 138 205 Test 11/04/16 21:36 11/05/16 01:00 11/05/16 02:22 11/05/16 05:26 Bedside Glucose 101 123 Activated Partial Thromboplast Time 55.4 H 59.1 H White Blood Count 24.8 H Red Blood Count 2.99 L Hemoglobin 9.3 L Hematocrit 29.4 L Mean Corpuscular Volume 98.3 Mean Corpuscular Hemoglobin 31.1 Mean Corpuscular Hemoglobin Concent 31.6 L Red Cell Distribution Width 19.0 H Platelet Count 372 Mean Platelet Volume 11.7 H Neutrophils % 81.5 H Lymphocytes % 9.9 L Monocytes % 7.1 Eosinophils % 0.4 Basophils % 0.2 Nucleated Red Blood Cells % 0.0 Neutrophils # 20.2 H Lymphocytes # 2.5 Monocytes # 1.8 H Eosinophils # 0.1 Basophils # 0.1 Nucleated Red Blood Cells # 0.0 Sodium Level 132 L Potassium Level 5.2 H Chloride Level 97 Carbon Dioxide Level 20 L Anion Gap 20 #H Blood Urea Nitrogen 69 H Creatinine 8.38 H Glucose Level 128 Calcium Level 7.7 L Magnesium Level 2.0 Test 11/05/16 08:21 Bedside Glucose 133 Medications Medications Current Medications Metoprolol Tartrate (Lopressor) 25 mg BID PO Last administered on 11/04/16 20: 18; Admin Dose 25 MG; Start 10/18/16 at 19:21 Hydralazine HCl (Apresoline) 10 mg Q4H PRN IV SBP>150 mm Hg Last administered on 10/27/16 20:38; Admin Dose 10 MG; Start 10/18/16 at 20:00 Albuterol (Ventolin Hfa) 2 puff Q8 INH Last administered on 11/05/16 06:51; Admin Dose 2 PUFF; Start 10/18/16 at 22:30 Famotidine (Pepcid) 20 mg DAILY PO Last administered on 11/05/16 08:53; Admin Dose 20 MG; Start 10/19/16 at 09:00 Ondansetron HCl (Zofran Inj) 4 mg Q6H PRN IV NAUSEA AND/OR VOMITING; Start at 22:30 Acetaminophen (Tylenol Tab) 650 mg Q6H PRN PO PAIN LEVEL 1-3 OR FEVER Last administered on 11/01/16 02:36; Admin Dose 650 MG; Start 10/18/16 at 22:30 Docusate Sodium (Colace) 100 mg Q12H PRN PO CONSTIPATION Last administered on 18:01; Admin Dose 100 MG; Start 10/18/16 at 22:30 Bisacodyl (Dulcolax Supp) 10 mg DAILY PRN OR CONSTIPATION Last administered on 10/26/16 07:04; Admin Dose 10 MG; Start 10/18/16 at 22:30 Diagnostic Test (Pha) (Accucheck) 1 ea 02 XX Last administered on 10/27/16 02: 31; Admin Dose 1 EA; Start 10/19/16 at 02:00 Miscellaneous Information 1 ea NOTE XX ; Start 10/18/16 at 22:30 Glucose (Glutose) 15 gm Q15M PRN PO DECREASED GLUCOSE; Start 10/18/16 at 22:30 Glucose (Glutose) 22.5 gm Q15M PRN PO DECREASED GLUCOSE; Start 10/18/16 at 22: 30 Dextrose (D50w Syringe) 25 ml Q15M PRN IV DECREASED GLUCOSE; Start 10/18/16 at 22:30 Dextrose (D50w Syringe) 50 ml Q15M PRN IV DECREASED GLUCOSE Last administered on 10/27/16 09:35; Admin Dose 50 ML; Start 10/18/16 at 22:30 Glucagon (Glucagen) 1 mg Q15M PRN IM DECREASED GLUCOSE; Start 10/18/16 at 22:30 Glucose (Glutose) 15 gm Q15M PRN BUCCAL DECREASED GLUCOSE; Start 10/18/16 at 22 :30 Linezolid (Zyvox) 600 mg BID PO Last administered on 11/05/16 08:53; Admin Dose 600 MG; Start 10/20/16 at 12:15 Aspirin (Halfprin) 81 mg DAILY PO Last administered on 11/05/16 08:52; Admin Dose 81 MG; Start 10/22/16 at 09:00 Lactobacillus Acidoph/Bulgaricus (Floranex) 1 tab BID PO Last administered on 08:52; Admin Dose 1 TAB; Start 10/22/16 at 21:00 Senna/Docusate Sodium (Senokot-S) 2 tab HS PO Last administered on 11/04/16 20: 18; Admin Dose 2 TAB; Start 10/22/16 at 21:00 Lactulose (Enulose) 20 gm TID PRN PO CONSTIPATION Last administered on 13:32; Admin Dose 20 GM; Start 10/23/16 at 17:30 Clonidine HCl 1 patch 1 patch Q7D TRANSDERM Last administered on 10/31/16 08:54 ; Admin Dose 1 PATCH; Start 10/24/16 at 09:00 Meropenem (Merrem 500 Mg/ 100 ml (Pmx)) 100 ml @ 200 mls/hr Q24H IVPB Last administered on 11/04/16 20:16; Admin Dose 200 MLS/HR; Start 10/26/16 at 21:00 Sodium Biphosphate/ Sodium Phosphate (Fleet Enema) 133 ml DAILY PRN OR CONSTIPATION Last administered on 10/26/16 18:33; Admin Dose 133 ML; Start at 18:00 Naloxone HCl (Narcan) 0.2 mg Q2M PRN IV RR 8 BREATHS/MIN OR LESS; Start at 13:00 Oxycodone/ Acetaminophen (Percocet (5/ 325)) 2 tab Q4H PRN PO PAIN Last administered on 11/03/16 18:56; Admin Dose 2 TAB; Start 10/28/16 at 15:00 Insulin Glargine (Lantus) 4 unit DAILY@20 SC Last administered on 11/04/16 20: 34; Admin Dose 4 UNIT; Start 10/29/16 at 20:00 Benazepril HCl (Lotensin) 10 mg BID PO Last administered on 11/04/16 20:17; Admin Dose 10 MG; Start 10/29/16 at 21:00 Metronidazole (Flagyl) 500 mg Q8 PO Last administered on 11/05/16 05:31; Admin Dose 500 MG; Start 10/31/16 at 14:00 Nitroglycerin (Nitroglycerin (Sl Tab) 0.4 Mg) 1 tab Q5M PRN SL ANGINA Last administered on 11/01/16 21:24; Admin Dose 1 TAB; Start 11/01/16 at 21:30 Nitroglycerin (Nitroglycerin (Sl Tab) 0.4 Mg) 1 tab Q5M PRN SL CHEST PAIN; Start 11/01/16 at 22:30 Amlodipine Besylate (Norvasc) 5 mg DAILY PO Last administered on 11/04/16 10:45 ; Admin Dose 5 MG; Start 11/04/16 at 09:00 Hydromorphone HCl (Dilaudid) 2 mg Q2H PRN IV PAIN Last administered on 10:42; Admin Dose 2 MG; Start 11/03/16 at 19:30 Apixaban (Eliquis) 2.5 mg BID PO ; Start 11/05/16 at 11:30 KAYLEE WILSON Nov 05, 2016 11:42
[2016-11-05] MEDS: APIXABAN 5 MG TABLET PO SCH ×2 (11:58→21:26)
--- NOTE | 2016-11-05 13:02 | PN ---
DATE: 11/05/2016 SUBJECTIVE: No events. The patient is awake, getting hemodialysis. He is in no distress, no fever s. VITAL SIGNS: Temperature 98.4, pulse 80, respirations 12, blood pressure 120/61, saturation 100 on 4 liters nasal cannula. LABORATORY: WBC 24.8, H and H 9.3 and 29.4, platelets 372, neutrophils 81.5. INDWELLINGS: Right femoral Usama catheter. ANTIMICROBIALS: The patient is on: 1. Flagyl. 2. Meropenem. 3. Zyvox. PHYSICAL EXAMINATION: GENERAL: This is a chronically ill-appearing, elderly man who is alert, in no distress. HEENT: Head atraumatic, normocephalic. Sclerae anicteric. Buccal mucosa dry. NECK: Supple, trachea midline. CHEST: Rise symmetrical. Breath sounds diminished at the bases. HEART: S1, S2. ABDOMEN: Soft, bowel tones present. EXTREMITIES: With right foot gangrenous changes of the toes, left above knee amputation dressing in tact. ASSESSMENT: 1. Sepsis, status post shock. 2. Left lower extremity gas gangrene status post initially below knee amputation with infected vasc ular graft removal and then repeat above the knee amputation. 3. Right foot gangrene. 4. Severe peripheral arterial disease. 5. Pulmonary embolism, remains on heparin drip and followed by pulmonary team. 6. Diabetes. 7. ALLERGY TO VANCOMYCIN. PLAN: We are going to discontinue Flagyl as patient has no diarrhea. We will continue him on cover age with broad spectrum antibiotics. Follow recommendations of consultants. Dictated By: DARLENE MCKEE CAT SITTER for NICOLE SANTANA/SIN Conf#: [id number] DID#: [id number]
[2016-11-05] MEDS: OXYCODONE/ACETAMINOPHEN (5/325) TAB PO PRN ×2 (13:25→22:52)
--- NOTE | 2016-11-05 13:28 | CONS ---
Date/Time of Note Date/Time of Note DATE: 11/05/16 TIME: 13:25 Assessment/Plan Assessment/Plan Additional Assessment/Plan 1. 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 Failed redo bypass.post-surgical intervention with thrombectomy, exploration of the above knee popliteal graft and debridement of left lower extremity wound with wound VAC application on 10/19/2016.- Not improving, s/p AKA by vascular surgery on 11/03/16 2. Severe stenosis of the right distal superficial femoral artery and occluded right posterior tibial artery. 3. End-stage renal disease on hemodialysis Tuesday, , Tuesday. 4. Accelerated hypertension. 5. Hyperlipidemia. 6. History of hypertension with peripheral arterial disease. 7. History of peripheral arterial disease status post left lower extremity bypass in September 2016. PLAN: s/p Removal of permacath, then pt went into Resp distress yesterday, required emergent Fernanda catheter placement- s/p exchange of new right groin fernanda, will plan for HD today pt has not had a good hD in last 2 days due to catheter problems will continue to follow up on patient Total Time spent in critical nephrology care is more than 45 minutes, communicated with family and Nursing staff at bedside Consultation Date/Type/Reason Admit Date/Time Oct 18, 2016 at 16:52 Initial Consult Date 10/18/2016 Type of Consultation: Cardiology Reason for Consultation ESRD on HD Referring Provider: OZZIE HERRERA MD 24 HR Interval Summary Free Text/Dictation s/p right groin Fernanda catheter placement Exam/Review of Systems Vital Signs Vitals Vital Signs Date Time Temp Pulse Resp B/P Pulse Ox O2 Delivery O2 Flow Rate FiO2 11/05/16 12:40 84 11/05/16 12:00 98.0 20 131/72 100 Nasal Cannula 4.0 11/04/16 05:37 100 Intake and Output 11/04/16 11/04/16 11/05/16 15:00 23:00 07:00 Intake Total 801 ml 394 ml 326 ml Output Total 2520 ml 0 ml 5 ml Balance -1719 ml 394 ml 321 ml Exam GENERAL: This is a well-developed elderly man who is in no distress. HEENT: Head atraumatic, normocephalic. Sclerae anicteric. Buccal mucosa dry. NECK: Supple. CHEST: Rise symmetrical. Breath sounds diminished to bases. HEART: S1, S2. ABDOMEN: Soft. Bowel tones present. EXTREMITIES: Left lower extremity cyanosis. s/p AKA Results Result Diagram: 11/05/16 0526 11/05/16 0526 Results 24 hrs Laboratory Tests Test 11/04/16 14:41 11/04/16 18:09 11/04/16 20:29 11/04/16 21:36 Bedside Glucose 138 205 101 Activated Partial Thromboplast Time > 180.0 *H Test 11/05/16 01:00 11/05/16 02:22 11/05/16 05:26 11/05/16 08:21 Activated Partial Thromboplast Time 55.4 H 59.1 H Bedside Glucose 123 133 White Blood Count 24.8 H Red Blood Count 2.99 L Hemoglobin 9.3 L Hematocrit 29.4 L Mean Corpuscular Volume 98.3 Mean Corpuscular Hemoglobin 31.1 Mean Corpuscular Hemoglobin Concent 31.6 L Red Cell Distribution Width 19.0 H Platelet Count 372 Mean Platelet Volume 11.7 H Neutrophils % 81.5 H Lymphocytes % 9.9 L Monocytes % 7.1 Eosinophils % 0.4 Basophils % 0.2 Nucleated Red Blood Cells % 0.0 Neutrophils # 20.2 H Lymphocytes # 2.5 Monocytes # 1.8 H Eosinophils # 0.1 Basophils # 0.1 Nucleated Red Blood Cells # 0.0 Sodium Level 132 L Potassium Level 5.2 H Chloride Level 97 Carbon Dioxide Level 20 L Anion Gap 20 #H Blood Urea Nitrogen 69 H Creatinine 8.38 H Glucose Level 128 Calcium Level 7.7 L Magnesium Level 2.0 Test 11/05/16 11:51 Bedside Glucose 184 Medications Medications Current Medications Metoprolol Tartrate (Lopressor) 25 mg BID PO Last administered on 11/04/16 20: 18; Admin Dose 25 MG; Start 10/18/16 at 19:21 Hydralazine HCl (Apresoline) 10 mg Q4H PRN IV SBP>150 mm Hg Last administered on 10/27/16 20:38; Admin Dose 10 MG; Start 10/18/16 at 20:00 Albuterol (Ventolin Hfa) 2 puff Q8 INH Last administered on 11/05/16 06:51; Admin Dose 2 PUFF; Start 10/18/16 at 22:30 Famotidine (Pepcid) 20 mg DAILY PO Last administered on 11/05/16 08:53; Admin Dose 20 MG; Start 10/19/16 at 09:00 Ondansetron HCl (Zofran Inj) 4 mg Q6H PRN IV NAUSEA AND/OR VOMITING; Start at 22:30 Acetaminophen (Tylenol Tab) 650 mg Q6H PRN PO PAIN LEVEL 1-3 OR FEVER Last administered on 11/01/16 02:36; Admin Dose 650 MG; Start 10/18/16 at 22:30 Docusate Sodium (Colace) 100 mg Q12H PRN PO CONSTIPATION Last administered on 18:01; Admin Dose 100 MG; Start 10/18/16 at 22:30 Bisacodyl (Dulcolax Supp) 10 mg DAILY PRN OR CONSTIPATION Last administered on 10/26/16 07:04; Admin Dose 10 MG; Start 10/18/16 at 22:30 Diagnostic Test (Pha) (Accucheck) 1 ea 02 XX Last administered on 10/27/16 02: 31; Admin Dose 1 EA; Start 10/19/16 at 02:00 Miscellaneous Information 1 ea NOTE XX ; Start 10/18/16 at 22:30 Glucose (Glutose) 15 gm Q15M PRN PO DECREASED GLUCOSE; Start 10/18/16 at 22:30 Glucose (Glutose) 22.5 gm Q15M PRN PO DECREASED GLUCOSE; Start 10/18/16 at 22: 30 Dextrose (D50w Syringe) 25 ml Q15M PRN IV DECREASED GLUCOSE; Start 10/18/16 at 22:30 Dextrose (D50w Syringe) 50 ml Q15M PRN IV DECREASED GLUCOSE Last administered on 10/27/16 09:35; Admin Dose 50 ML; Start 10/18/16 at 22:30 Glucagon (Glucagen) 1 mg Q15M PRN IM DECREASED GLUCOSE; Start 10/18/16 at 22:30 Glucose (Glutose) 15 gm Q15M PRN BUCCAL DECREASED GLUCOSE; Start 10/18/16 at 22 :30 Linezolid (Zyvox) 600 mg BID PO Last administered on 11/05/16 08:53; Admin Dose 600 MG; Start 10/20/16 at 12:15 Aspirin (Halfprin) 81 mg DAILY PO Last administered on 11/05/16 08:52; Admin Dose 81 MG; Start 10/22/16 at 09:00 Lactobacillus Acidoph/Bulgaricus (Floranex) 1 tab BID PO Last administered on 08:52; Admin Dose 1 TAB; Start 10/22/16 at 21:00 Senna/Docusate Sodium (Senokot-S) 2 tab HS PO Last administered on 11/04/16 20: 18; Admin Dose 2 TAB; Start 10/22/16 at 21:00 Lactulose (Enulose) 20 gm TID PRN PO CONSTIPATION Last administered on 13:32; Admin Dose 20 GM; Start 10/23/16 at 17:30 Clonidine HCl 1 patch 1 patch Q7D TRANSDERM Last administered on 10/31/16 08:54 ; Admin Dose 1 PATCH; Start 10/24/16 at 09:00 Meropenem (Merrem 500 Mg/ 100 ml (Pmx)) 100 ml @ 200 mls/hr Q24H IVPB Last administered on 11/04/16 20:16; Admin Dose 200 MLS/HR; Start 10/26/16 at 21:00 Sodium Biphosphate/ Sodium Phosphate (Fleet Enema) 133 ml DAILY PRN OR CONSTIPATION Last administered on 10/26/16 18:33; Admin Dose 133 ML; Start at 18:00 Naloxone HCl (Narcan) 0.2 mg Q2M PRN IV RR 8 BREATHS/MIN OR LESS; Start at 13:00 Oxycodone/ Acetaminophen (Percocet (5/ 325)) 2 tab Q4H PRN PO PAIN Last administered on 11/03/16 18:56; Admin Dose 2 TAB; Start 10/28/16 at 15:00 Insulin Glargine (Lantus) 4 unit DAILY@20 SC Last administered on 11/04/16 20: 34; Admin Dose 4 UNIT; Start 10/29/16 at 20:00 Benazepril HCl (Lotensin) 10 mg BID PO Last administered on 11/04/16 20:17; Admin Dose 10 MG; Start 10/29/16 at 21:00 Nitroglycerin (Nitroglycerin (Sl Tab) 0.4 Mg) 1 tab Q5M PRN SL ANGINA Last administered on 11/01/16 21:24; Admin Dose 1 TAB; Start 11/01/16 at 21:30 Nitroglycerin (Nitroglycerin (Sl Tab) 0.4 Mg) 1 tab Q5M PRN SL CHEST PAIN; Start 11/01/16 at 22:30 Amlodipine Besylate (Norvasc) 5 mg DAILY PO Last administered on 11/04/16 10:45 ; Admin Dose 5 MG; Start 11/04/16 at 09:00 Hydromorphone HCl (Dilaudid) 2 mg Q2H PRN IV PAIN Last administered on 10:42; Admin Dose 2 MG; Start 11/03/16 at 19:30 Apixaban (Eliquis) 2.5 mg BID PO Last administered on 11/05/16 11:58; Admin Dose 2.5 MG; Start 11/05/16 at 11:30 LISA MERRITT MD Nov 05, 2016 13:27
--- NOTE | 2016-11-05 15:17 | RADRPT ---
Vent Rate: 88 bpm RR Interval: 0 msec [place] Interval: 168 msec QRS Duration: 108 msec QT Interval: 382 msec QTC Interval: 462 msec P-R-T [place]: 47 - -56 - 83 degrees Normal sinus rhythm Possible Left atrial enlargement Left axis deviation Septal infarct , age undetermined ST amp; T wave abnormality, consider lateral ischemia Abnormal ECG Electronically Signed By: Herminio Pace [id number]
--- NOTE | 2016-11-05 15:19 | RADRPT ---
Vent Rate: 79 bpm RR Interval: 0 msec [place] Interval: 170 msec QRS Duration: 114 msec QT Interval: 414 msec QTC Interval: 474 msec P-R-T [place]: 54 - -39 - 82 degrees Normal sinus rhythm Possible Left atrial enlargement Left axis deviation Septal infarct , age undetermined Abnormal ECG Electronically Signed By: Herminio Pace [id number]
--- NOTE | 2016-11-05 18:32 | RADRPT ---
PROCEDURE: US bilateral lower extremity veins. CLINICAL INDICATION: Bilateral leg pain and swelling. History of left above-knee amputation.. TECHNIQUE: Multiple longitudinal and transverse images of the bilateral lower extremity veins were obtained with powell scale and color Doppler imaging. The common femoral vein, femoral vein, and popl iteal vein were evaluated. 2D grayscale measurements with compression sonography, color Doppler, and pulsed Doppler with augmentation. COMPARISON: No prior studies are available for comparison. FINDINGS: The right common femoral, femoral and popliteal veins are normally compressible throughout. Color f low demonstrates normal filling of the vessels. Normal waveforms are visualized and there is normal response to augmentation. The left common femoral, and femoral veins are normally compressible throughout. Color flow demonst rates normal filling of the vessels. Normal waveforms are visualized and there is normal response t o augmentation. IMPRESSION: 1. No evidence of deep vein thrombosis involving either lower extremity. 2. Left above-knee amputation. RPTAT: QQ .Rick Tomlin MD, MD Date Time Electronically viewed and signed by .Rick Tomlin MD, on 11/05/2016 18:32 .R/
[2016-11-05] MEDS: INSULIN GLARGINE [LANtus] 3 ML PEN SC SCH (20:05)
[2016-11-05] MEDS: MEROPENEM 500 MG/100 ML (PMX) 100 ML IVPB SCH ×2 (21:00→22:48)
[2016-11-05] MEDS: SENNA/DOCUSATE NA (8.6MG/50MG) TAB PO SCH (21:26)
[2016-11-06] VITALS (13 sets, daily range): BP systolic 122–151; BP diastolic 58–69; PULSE 69–73; RESP 18
[2016-11-06] MEDS: ACCU-CHEK XX SCH (02:00)
[2016-11-06] MEDS: HYDROmorphONE 2 MG/ML SYG IV PRN ×4 (05:05→21:23)
[2016-11-06] MEDS: ALBUTEROL HFA 8 GM INHALER INH SCH ×3 (05:18→21:30)
[2016-11-06] MEDS: INSULIN ASPART [NOVOLOG] 3 ML PEN SC SCH ×4 (07:55→21:00)
[2016-11-06] MEDS: APIXABAN 5 MG TABLET PO SCH ×2 (08:34→21:03)
[2016-11-06] MEDS: METOPROLOL 25 MG TAB PO SCH ×2 (08:34→21:03)
[2016-11-06] MEDS: LACTOBACILLUS CHEW TAB PO SCH ×2 (08:34→21:04)
[2016-11-06] MEDS: BENAZEPRIL 10 MG TAB PO SCH ×2 (08:34→21:05)
[2016-11-06] MEDS: ZYVOX 600 MG TAB PO SCH ×2 (08:34→21:06)
[2016-11-06] MEDS: FAMOTIDINE 20 MG TAB PO SCH (08:35)
[2016-11-06] MEDS: AMLODIPINE 5 MG TAB PO SCH (08:35)
[2016-11-06] MEDS: ASPIRIN (EC) 81 MG TAB PO SCH (08:35)
[2016-11-06 10:24] LABS: ADD SCAN DIFF NO
[2016-11-06 10:31] LABS: BASOPHILS % 0.1 % (0.0-2.0); EOSINOPHILS # 0.1 10^3/ul (0.0-0.5); EOSINOPHILS % 0.3 % (0.0-7.0); HEMATOCRIT 28.1 % (42.0-52.0); HEMOGLOBIN 8.8 g/dl (14.0-18.0); LYMPHOCYTES # 1.3 10^3/ul (0.8-2.9); LYMPHOCYTES % 7.4 % (15.0-51.0); MEAN CORPUSCULAR HEMOGLOBIN 31.2 pg (29.0-33.0); MEAN CORPUSCULAR HGB CONC 31.3 g/dl (32.0-37.0); MEAN CORPUSCULAR VOLUME 99.6 fl (82.0-101.0); MEAN PLATELET VOLUME 11.6 fl (7.4-10.4); MONOCYTE # 1.2 10^3/ul (0.3-0.9); MONOCYTES % 7.1 % (0.0-11.0); NEUTROPHIL # 14.6 10^3/ul (1.6-7.5); NEUTROPHILS % 84.1 % (39.0-77.0); PLATELET COUNT 349 10^3/UL (140-415); RED BLOOD COUNT 2.82 10^6/ul (4.70-6.10); RED CELL DISTRIBUTION WIDTH 18.6 % (11.5-14.5); WHITE BLOOD COUNT 17.3 10^3/ul (4.8-10.8)
[2016-11-06 10:44] LABS: POTASSIUM 4.9 mmol/L (3.5-5.1)
[2016-11-06 10:47] LABS: CREATININE 7.48 mg/dl (0.61-1.24)
[2016-11-06 10:48] LABS: CALCIUM 7.7 mg/dl (8.4-10.2)
[2016-11-06 10:48] LABS: INR 2.68; PROTIME 28.9 Sec (12.2-14.2); PT RATIO 2.3
--- NOTE | 2016-11-06 12:21 | CONS ---
Date/Time of Note Date/Time of Note DATE: 11/06/16 TIME: 12:15 Assessment/Plan Assessment/Plan Chief Complaint/Hosp Course ID PROGRESS NOTE CURRENT ABX=> Zyvox, Merrem s/p Flagyl DC'd 11/05/16 s/p Zosyn/Ceftriaxone-> DC 24H INTERVAL SUMMARY POD #3 -> s/p 11/03/16 LEFT AKA * Resting =>WBC down, no fevers * MICROBIOLOGY: Culture Leg (+)E.Coli/ESBL on Merrem * INDWELLINGS: Right IJ Perm-A-Cath. PHYSICAL EXAMINATION: GENERAL:VSS, NAD HEENT: Unremarkable NECK: Supple, trachea midline. CHEST: Rise symmetrical, without dyspnea on observation HEART: Pulse RRR ABDOMEN: soft EXTREMITIES: Warm -> DSG intact ID ASSESSMENT 65 yo M admit with: 1. Severe LLEXT gangrene w/ PAD-> Hx of angio/bypass. Failed redo bypass. * POD #3 -> s/p 11/03/16 LEFT AKA 2. End-stage renal disease=> HD * PermCath DC'd w/new Femoral HD Cath placed 11/04/16 3. Anemia of chronic disease. 4. DM 5. HTN 6. Systolic HF w/EF of 40% to 45% 7. ?ASHD (-) MRSA Nares INVASIVES: PIV, New FEM HD Line 11/04/16 ABX ALLERGY: VANCO IV CURRENT ABX: Zyvox, Merrem s/p Zosyn/Flagy Ceftriaxone -> DC 10/23/16 ID RECOMMENDATIONS 1. Continue current ABX 2. Watch for opportunistic infx such as yeast and/or C.Diff 3. Observe response to over the weekend on ABX -> Reassess by ID team next week . Problems: Consultation Date/Type/Reason Admit Date/Time Oct 18, 2016 at 16:52 Type of Consultation: ID Referring Provider: OZZIE HERRERA MD Exam/Review of Systems Vital Signs Vitals Vital Signs Date Time Temp Pulse Resp B/P Pulse Ox O2 Delivery O2 Flow Rate FiO2 11/06/16 11:35 98.3 67 18 122/60 96 11/06/16 01:23 2.0 11/05/16 20:25 Nasal Cannula 11/04/16 05:37 100 Intake and Output 11/05/16 11/05/16 11/06/16 15:00 23:00 07:00 Intake Total 620 ml 500 ml 275 ml Output Total 3400 ml Balance -2780 ml 500 ml 275 ml Results Result Diagram: 11/06/16 1015 11/06/16 1014 Results 24 hrs Laboratory Tests Test 11/05/16 16:43 11/05/16 20:02 11/05/16 20:46 11/06/16 02:12 Bedside Glucose 131 202 206 176 Test 11/06/16 08:30 11/06/16 10:14 11/06/16 10:15 11/06/16 11:28 Bedside Glucose 130 207 Sodium Level 133 L Potassium Level 4.9 Chloride Level 92 L Carbon Dioxide Level 23 Anion Gap 23 H Blood Urea Nitrogen 61 H Creatinine 7.48 H Glucose Level 216 Calcium Level 7.7 L Magnesium Level 2.0 White Blood Count 17.3 #H Red Blood Count 2.82 L Hemoglobin 8.8 L Hematocrit 28.1 L Mean Corpuscular Volume 99.6 Mean Corpuscular Hemoglobin 31.2 Mean Corpuscular Hemoglobin Concent 31.3 L Red Cell Distribution Width 18.6 H Platelet Count 349 Mean Platelet Volume 11.6 H Neutrophils % 84.1 H Lymphocytes % 7.4 L Monocytes % 7.1 Eosinophils % 0.3 Basophils % 0.1 Nucleated Red Blood Cells % 0.0 Neutrophils # 14.6 H Lymphocytes # 1.3 Monocytes # 1.2 H Eosinophils # 0.1 Basophils # 0.0 Nucleated Red Blood Cells # 0.0 Prothrombin Time 28.9 H Prothrombin Time Ratio 2.3 INR International Normalized Ratio 2.68 Medications Medications Current Medications Metoprolol Tartrate (Lopressor) 25 mg BID PO Last administered on 11/06/16 08: 34; Admin Dose 25 MG; Start 10/18/16 at 19:21 Hydralazine HCl (Apresoline) 10 mg Q4H PRN IV SBP>150 mm Hg Last administered on 10/27/16 20:38; Admin Dose 10 MG; Start 10/18/16 at 20:00 Albuterol (Ventolin Hfa) 2 puff Q8 INH Last administered on 11/06/16 05:18; Admin Dose 2 PUFF; Start 10/18/16 at 22:30 Famotidine (Pepcid) 20 mg DAILY PO Last administered on 11/06/16 08:35; Admin Dose 20 MG; Start 10/19/16 at 09:00 Ondansetron HCl (Zofran Inj) 4 mg Q6H PRN IV NAUSEA AND/OR VOMITING; Start at 22:30 Acetaminophen (Tylenol Tab) 650 mg Q6H PRN PO PAIN LEVEL 1-3 OR FEVER Last administered on 11/01/16 02:36; Admin Dose 650 MG; Start 10/18/16 at 22:30 Docusate Sodium (Colace) 100 mg Q12H PRN PO CONSTIPATION Last administered on 18:01; Admin Dose 100 MG; Start 10/18/16 at 22:30 Bisacodyl (Dulcolax Supp) 10 mg DAILY PRN [place] CONSTIPATION Last administered on 10/26/16 07:04; Admin Dose 10 MG; Start 10/18/16 at 22:30 Diagnostic Test (Pha) (Accucheck) 1 ea 02 XX Last administered on 10/27/16 02: 31; Admin Dose 1 EA; Start 10/19/16 at 02:00 Miscellaneous Information 1 ea NOTE XX ; Start 10/18/16 at 22:30 Glucose (Glutose) 15 gm Q15M PRN PO DECREASED GLUCOSE; Start 10/18/16 at 22:30 Glucose (Glutose) 22.5 gm Q15M PRN PO DECREASED GLUCOSE; Start 10/18/16 at 22: 30 Dextrose (D50w Syringe) 25 ml Q15M PRN IV DECREASED GLUCOSE; Start 10/18/16 at 22:30 Dextrose (D50w Syringe) 50 ml Q15M PRN IV DECREASED GLUCOSE Last administered on 10/27/16 09:35; Admin Dose 50 ML; Start 10/18/16 at 22:30 Glucagon (Glucagen) 1 mg Q15M PRN IM DECREASED GLUCOSE; Start 10/18/16 at 22:30 Glucose (Glutose) 15 gm Q15M PRN BUCCAL DECREASED GLUCOSE; Start 10/18/16 at 22 :30 Linezolid (Zyvox) 600 mg BID PO Last administered on 11/06/16 08:34; Admin Dose 600 MG; Start 10/20/16 at 12:15 Aspirin (Halfprin) 81 mg DAILY PO Last administered on 11/06/16 08:35; Admin Dose 81 MG; Start 10/22/16 at 09:00 Lactobacillus Acidoph/Bulgaricus (Floranex) 1 tab BID PO Last administered on 08:34; Admin Dose 1 TAB; Start 10/22/16 at 21:00 Senna/Docusate Sodium (Senokot-S) 2 tab HS PO Last administered on 11/05/16 21: 26; Admin Dose 2 TAB; Start 10/22/16 at 21:00 Lactulose (Enulose) 20 gm TID PRN PO CONSTIPATION Last administered on 13:32; Admin Dose 20 GM; Start 10/23/16 at 17:30 Clonidine HCl 1 patch 1 patch Q7D TRANSDERM Last administered on 10/31/16 08:54 ; Admin Dose 1 PATCH; Start 10/24/16 at 09:00 Meropenem (Merrem 500 Mg/ 100 ml (Pmx)) 100 ml @ 200 mls/hr Q24H IVPB Last administered on 11/05/16 22:48; Admin Dose 200 MLS/HR; Start 10/26/16 at 21:00 Sodium Biphosphate/ Sodium Phosphate (Fleet Enema) 133 ml DAILY PRN [place] CONSTIPATION Last administered on 10/26/16 18:33; Admin Dose 133 ML; Start at 18:00 Naloxone HCl (Narcan) 0.2 mg Q2M PRN IV RR 8 BREATHS/MIN OR LESS; Start at 13:00 Oxycodone/ Acetaminophen (Percocet (5/ 325)) 2 tab Q4H PRN PO PAIN Last administered on 11/05/16 22:52; Admin Dose 2 TAB; Start 10/28/16 at 15:00 Insulin Glargine (Lantus) 4 unit DAILY@20 SC Last administered on 11/05/16 20: 05; Admin Dose 4 UNIT; Start 10/29/16 at 20:00 Benazepril HCl (Lotensin) 10 mg BID PO Last administered on 11/06/16 08:34; Admin Dose 10 MG; Start 10/29/16 at 21:00 Nitroglycerin (Nitroglycerin (Sl Tab) 0.4 Mg) 1 tab Q5M PRN SL ANGINA Last administered on 11/01/16 21:24; Admin Dose 1 TAB; Start 11/01/16 at 21:30 Nitroglycerin (Nitroglycerin (Sl Tab) 0.4 Mg) 1 tab Q5M PRN SL CHEST PAIN; Start 11/01/16 at 22:30 Amlodipine Besylate (Norvasc) 5 mg DAILY PO Last administered on 11/06/16 08:35 ; Admin Dose 5 MG; Start 11/04/16 at 09:00 Hydromorphone HCl (Dilaudid) 2 mg Q2H PRN IV PAIN Last administered on 11:29; Admin Dose 2 MG; Start 11/03/16 at 19:30 Apixaban (Eliquis) 2.5 mg BID PO Last administered on 11/06/16 08:34; Admin Dose 2.5 MG; Start 11/05/16 at 11:30 CARLOS THAKUR NP Nov 06, 2016 12:21
--- NOTE | 2016-11-06 13:35 | CONS ---
Date/Time of Note Date/Time of Note DATE: 11/06/16 TIME: 13:34 Assessment/Plan Assessment/Plan Additional Assessment/Plan 1. 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 Failed redo bypass.post-surgical intervention with thrombectomy, exploration of the above knee popliteal graft and debridement of left lower extremity wound with wound VAC application on 10/19/2016.- Not improving, s/p AKA by vascular surgery on 11/03/16 2. Severe stenosis of the right distal superficial femoral artery and occluded right posterior tibial artery. 3. End-stage renal disease on hemodialysis Tuesday, , Tuesday. 4. Accelerated hypertension. 5. Hyperlipidemia. 6. History of hypertension with peripheral arterial disease. 7. History of peripheral arterial disease status post left lower extremity bypass in September 2016. PLAN: s/p Removal of permacath, then pt went into Resp distress yesterday, required emergent Fernanda catheter placement- s/p exchange of new right groin fernanda, will plan for HD today pt has not had a good hD in last 2 days due to catheter problems will continue to follow up on patient Total Time spent in critical nephrology care is more than 45 minutes, communicated with Dr Paige/ family/ Nursing staff at bedside Consultation Date/Type/Reason Admit Date/Time Oct 18, 2016 at 16:52 Type of Consultation: ID Referring Provider: OZZIE HERRERA MD 24 HR Interval Summary Free Text/Dictation no permacath placement today due to elevated INR today, possibly on Tuesday. HD yesterday. dw staff. Exam/Review of Systems Vital Signs Vitals Vital Signs Date Time Temp Pulse Resp B/P Pulse Ox O2 Delivery O2 Flow Rate FiO2 11/06/16 12:19 69 11/06/16 11:35 98.3 18 122/60 96 11/06/16 01:23 2.0 11/05/16 20:25 Nasal Cannula 11/04/16 05:37 100 Intake and Output 11/05/16 11/05/16 11/06/16 14:59 22:59 06:59 Intake Total 860 ml 500 ml 275 ml Output Total 3400 ml Balance -2540 ml 500 ml 275 ml Exam Psych: nl mood/affect Eyes: nl sclera ENMT: nl external ears & nose Neck: non-tender Respiratory: clear to auscultation Cardiovascular: nl pulses Gastrointestinal: non-tender, soft Musculoskeletal: other Extremities: other Skin: other Lymph: nontender Results Result Diagram: 11/06/16 1015 11/06/16 1014 Results 24 hrs Laboratory Tests Test 11/05/16 16:43 11/05/16 20:02 11/05/16 20:46 11/06/16 02:12 Bedside Glucose 131 202 206 176 Test 11/06/16 08:30 11/06/16 10:14 11/06/16 10:15 11/06/16 11:28 Bedside Glucose 130 207 Sodium Level 133 L Potassium Level 4.9 Chloride Level 92 L Carbon Dioxide Level 23 Anion Gap 23 H Blood Urea Nitrogen 61 H Creatinine 7.48 H Glucose Level 216 Calcium Level 7.7 L Magnesium Level 2.0 White Blood Count 17.3 #H Red Blood Count 2.82 L Hemoglobin 8.8 L Hematocrit 28.1 L Mean Corpuscular Volume 99.6 Mean Corpuscular Hemoglobin 31.2 Mean Corpuscular Hemoglobin Concent 31.3 L Red Cell Distribution Width 18.6 H Platelet Count 349 Mean Platelet Volume 11.6 H Neutrophils % 84.1 H Lymphocytes % 7.4 L Monocytes % 7.1 Eosinophils % 0.3 Basophils % 0.1 Nucleated Red Blood Cells % 0.0 Neutrophils # 14.6 H Lymphocytes # 1.3 Monocytes # 1.2 H Eosinophils # 0.1 Basophils # 0.0 Nucleated Red Blood Cells # 0.0 Prothrombin Time 28.9 H Prothrombin Time Ratio 2.3 INR International Normalized Ratio 2.68 Medications Medications Current Medications Metoprolol Tartrate (Lopressor) 25 mg BID PO Last administered on 11/06/16 08: 34; Admin Dose 25 MG; Start 10/18/16 at 19:21 Hydralazine HCl (Apresoline) 10 mg Q4H PRN IV SBP>150 mm Hg Last administered on 10/27/16 20:38; Admin Dose 10 MG; Start 10/18/16 at 20:00 Albuterol (Ventolin Hfa) 2 puff Q8 INH Last administered on 11/06/16 05:18; Admin Dose 2 PUFF; Start 10/18/16 at 22:30 Famotidine (Pepcid) 20 mg DAILY PO Last administered on 11/06/16 08:35; Admin Dose 20 MG; Start 10/19/16 at 09:00 Ondansetron HCl (Zofran Inj) 4 mg Q6H PRN IV NAUSEA AND/OR VOMITING; Start at 22:30 Acetaminophen (Tylenol Tab) 650 mg Q6H PRN PO PAIN LEVEL 1-3 OR FEVER Last administered on 11/01/16 02:36; Admin Dose 650 MG; Start 10/18/16 at 22:30 Docusate Sodium (Colace) 100 mg Q12H PRN PO CONSTIPATION Last administered on 18:01; Admin Dose 100 MG; Start 10/18/16 at 22:30 Bisacodyl (Dulcolax Supp) 10 mg DAILY PRN [place] CONSTIPATION Last administered on 10/26/16 07:04; Admin Dose 10 MG; Start 10/18/16 at 22:30 Diagnostic Test (Pha) (Accucheck) 1 ea 02 XX Last administered on 10/27/16 02: 31; Admin Dose 1 EA; Start 10/19/16 at 02:00 Miscellaneous Information 1 ea NOTE XX ; Start 10/18/16 at 22:30 Glucose (Glutose) 15 gm Q15M PRN PO DECREASED GLUCOSE; Start 10/18/16 at 22:30 Glucose (Glutose) 22.5 gm Q15M PRN PO DECREASED GLUCOSE; Start 10/18/16 at 22: 30 Dextrose (D50w Syringe) 25 ml Q15M PRN IV DECREASED GLUCOSE; Start 10/18/16 at 22:30 Dextrose (D50w Syringe) 50 ml Q15M PRN IV DECREASED GLUCOSE Last administered on 10/27/16 09:35; Admin Dose 50 ML; Start 10/18/16 at 22:30 Glucagon (Glucagen) 1 mg Q15M PRN IM DECREASED GLUCOSE; Start 10/18/16 at 22:30 Glucose (Glutose) 15 gm Q15M PRN BUCCAL DECREASED GLUCOSE; Start 10/18/16 at 22 :30 Linezolid (Zyvox) 600 mg BID PO Last administered on 11/06/16 08:34; Admin Dose 600 MG; Start 10/20/16 at 12:15 Aspirin (Halfprin) 81 mg DAILY PO Last administered on 11/06/16 08:35; Admin Dose 81 MG; Start 10/22/16 at 09:00 Lactobacillus Acidoph/Bulgaricus (Floranex) 1 tab BID PO Last administered on 08:34; Admin Dose 1 TAB; Start 10/22/16 at 21:00 Senna/Docusate Sodium (Senokot-S) 2 tab HS PO Last administered on 11/05/16 21: 26; Admin Dose 2 TAB; Start 10/22/16 at 21:00 Lactulose (Enulose) 20 gm TID PRN PO CONSTIPATION Last administered on 13:32; Admin Dose 20 GM; Start 10/23/16 at 17:30 Clonidine HCl 1 patch 1 patch Q7D TRANSDERM Last administered on 10/31/16 08:54 ; Admin Dose 1 PATCH; Start 10/24/16 at 09:00 Meropenem (Merrem 500 Mg/ 100 ml (Pmx)) 100 ml @ 200 mls/hr Q24H IVPB Last administered on 11/05/16 22:48; Admin Dose 200 MLS/HR; Start 10/26/16 at 21:00 Sodium Biphosphate/ Sodium Phosphate (Fleet Enema) 133 ml DAILY PRN [place] CONSTIPATION Last administered on 10/26/16 18:33; Admin Dose 133 ML; Start at 18:00 Naloxone HCl (Narcan) 0.2 mg Q2M PRN IV RR 8 BREATHS/MIN OR LESS; Start at 13:00 Oxycodone/ Acetaminophen (Percocet (5/ 325)) 2 tab Q4H PRN PO PAIN Last administered on 11/05/16 22:52; Admin Dose 2 TAB; Start 10/28/16 at 15:00 Insulin Glargine (Lantus) 4 unit DAILY@20 SC Last administered on 11/05/16 20: 05; Admin Dose 4 UNIT; Start 10/29/16 at 20:00 Benazepril HCl (Lotensin) 10 mg BID PO Last administered on 11/06/16 08:34; Admin Dose 10 MG; Start 10/29/16 at 21:00 Nitroglycerin (Nitroglycerin (Sl Tab) 0.4 Mg) 1 tab Q5M PRN SL ANGINA Last administered on 11/01/16 21:24; Admin Dose 1 TAB; Start 11/01/16 at 21:30 Nitroglycerin (Nitroglycerin (Sl Tab) 0.4 Mg) 1 tab Q5M PRN SL CHEST PAIN; Start 11/01/16 at 22:30 Amlodipine Besylate (Norvasc) 5 mg DAILY PO Last administered on 11/06/16 08:35 ; Admin Dose 5 MG; Start 11/04/16 at 09:00 Hydromorphone HCl (Dilaudid) 2 mg Q2H PRN IV PAIN Last administered on 11:29; Admin Dose 2 MG; Start 11/03/16 at 19:30 Apixaban (Eliquis) 2.5 mg BID PO Last administered on 11/06/16 08:34; Admin Dose 2.5 MG; Start 11/05/16 at 11:30 CHERELLE TY Nov 06, 2016 13:35
--- NOTE | 2016-11-06 14:44 | PN ---
Date/Time of Note Date/Time of Note DATE: 11/06/16 TIME: 14:42 Assessment/Plan VTE Prophylaxis VTE Prophylaxis Intervention: other Lines/Catheters IV Catheter Type (from Nrsg): Saline Lock Assessment/Plan Chief Complaint/Hosp Course Assessment and plan 1. 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 Patient does have history of bypass on area that had thrombosed. 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 Also noted with right lower extremity gangrene. 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 Continue with analgesics. wound care per vascular surgeon Pain management physician consulted for further assistance. Await recommendations. cont with abx per ID (ESBL in wound) 2. ESRD on dialysis. Continue on HD. Follow-up with nephrology recommendations 3. Hypertension. Continue on antihypertensives and adjust needed. Stable 4. Anemia of chronic disease. H&H stable. Monitor for now. 5. History of diabetes. Continue on insulin regimen. Will adjust as needed 6. CAD. Continue on antiplatelet therapy 7. Peripheral vascular disease. Continue aggressive medical management, vascular surgeon has been consulted 8. Acute respiratory distress. Likely secondary to fluid overload. Resolved status post urgent hemodialysis 9. Leukocytosis. Continue IV antibiotics, infectious disease doctor has been consulted 10. Pulmonary embolism. Continue heparin and transitioned to oral anticoagulation as per vascular surgeon Disposition and plan:. Continue with strategic sourcing consultant recommendations. cont with analgesics Problems: Subjective 24 Hr Interval Summary Free Text/Dictation Denies of any chest pain or shortness of breath Continues to complain of having moderate left lower extremity pain at the surgical site Denies of any abdominal discomfort Exam/Review of Systems Vital Signs Vitals Vital Signs Date Time Temp Pulse Resp B/P Pulse Ox O2 Delivery O2 Flow Rate FiO2 11/06/16 12:19 69 11/06/16 11:35 98.3 18 122/60 96 11/06/16 01:23 2.0 11/05/16 20:25 Nasal Cannula 11/04/16 05:37 100 Intake and Output 11/05/16 11/05/16 11/06/16 15:00 23:00 07:00 Intake Total 620 ml 500 ml 275 ml Output Total 3400 ml Balance -2780 ml 500 ml 275 ml Exam General: The patient is well-developed, Not in acute distress. HEENT: Atraumatic, normocephalic. The pupils are equal and round . Neck: Supple with full range of motion. Chest: Normal Lungs: Clear to auscultation bilaterally Heart: Normal S1-S2, Regular rhythm and rate. Abdomen: Soft , nontender, nondistended , bowel sounds are present. Extremities: Status post left AKA, no edema no cyanosis Neurologic: Normal mental status,The patient is awake, alert and oriented . Results Result Diagram: 11/06/16 1015 11/06/16 1014 Results 24 hrs Laboratory Tests Test 11/05/16 16:43 11/05/16 20:02 11/05/16 20:46 11/06/16 02:12 Bedside Glucose 131 202 206 176 Test 11/06/16 08:30 11/06/16 10:14 11/06/16 10:15 11/06/16 11:28 Bedside Glucose 130 207 Sodium Level 133 L Potassium Level 4.9 Chloride Level 92 L Carbon Dioxide Level 23 Anion Gap 23 H Blood Urea Nitrogen 61 H Creatinine 7.48 H Glucose Level 216 Calcium Level 7.7 L Magnesium Level 2.0 White Blood Count 17.3 #H Red Blood Count 2.82 L Hemoglobin 8.8 L Hematocrit 28.1 L Mean Corpuscular Volume 99.6 Mean Corpuscular Hemoglobin 31.2 Mean Corpuscular Hemoglobin Concent 31.3 L Red Cell Distribution Width 18.6 H Platelet Count 349 Mean Platelet Volume 11.6 H Neutrophils % 84.1 H Lymphocytes % 7.4 L Monocytes % 7.1 Eosinophils % 0.3 Basophils % 0.1 Nucleated Red Blood Cells % 0.0 Neutrophils # 14.6 H Lymphocytes # 1.3 Monocytes # 1.2 H Eosinophils # 0.1 Basophils # 0.0 Nucleated Red Blood Cells # 0.0 Prothrombin Time 28.9 H Prothrombin Time Ratio 2.3 INR International Normalized Ratio 2.68 Medications Medications Current Medications Metoprolol Tartrate (Lopressor) 25 mg BID PO Last administered on 11/06/16 08: 34; Admin Dose 25 MG; Start 10/18/16 at 19:21 Hydralazine HCl (Apresoline) 10 mg Q4H PRN IV SBP>150 mm Hg Last administered on 10/27/16 20:38; Admin Dose 10 MG; Start 10/18/16 at 20:00 Albuterol (Ventolin Hfa) 2 puff Q8 INH Last administered on 11/06/16 05:18; Admin Dose 2 PUFF; Start 10/18/16 at 22:30 Famotidine (Pepcid) 20 mg DAILY PO Last administered on 11/06/16 08:35; Admin Dose 20 MG; Start 10/19/16 at 09:00 Ondansetron HCl (Zofran Inj) 4 mg Q6H PRN IV NAUSEA AND/OR VOMITING; Start at 22:30 Acetaminophen (Tylenol Tab) 650 mg Q6H PRN PO PAIN LEVEL 1-3 OR FEVER Last administered on 11/01/16 02:36; Admin Dose 650 MG; Start 10/18/16 at 22:30 Docusate Sodium (Colace) 100 mg Q12H PRN PO CONSTIPATION Last administered on 18:01; Admin Dose 100 MG; Start 10/18/16 at 22:30 Bisacodyl (Dulcolax Supp) 10 mg DAILY PRN [place] CONSTIPATION Last administered on 10/26/16 07:04; Admin Dose 10 MG; Start 10/18/16 at 22:30 Diagnostic Test (Pha) (Accucheck) 1 ea 02 XX Last administered on 10/27/16 02: 31; Admin Dose 1 EA; Start 10/19/16 at 02:00 Miscellaneous Information 1 ea NOTE XX ; Start 10/18/16 at 22:30 Glucose (Glutose) 15 gm Q15M PRN PO DECREASED GLUCOSE; Start 10/18/16 at 22:30 Glucose (Glutose) 22.5 gm Q15M PRN PO DECREASED GLUCOSE; Start 10/18/16 at 22: 30 Dextrose (D50w Syringe) 25 ml Q15M PRN IV DECREASED GLUCOSE; Start 10/18/16 at 22:30 Dextrose (D50w Syringe) 50 ml Q15M PRN IV DECREASED GLUCOSE Last administered on 10/27/16 09:35; Admin Dose 50 ML; Start 10/18/16 at 22:30 Glucagon (Glucagen) 1 mg Q15M PRN IM DECREASED GLUCOSE; Start 10/18/16 at 22:30 Glucose (Glutose) 15 gm Q15M PRN BUCCAL DECREASED GLUCOSE; Start 10/18/16 at 22 :30 Linezolid (Zyvox) 600 mg BID PO Last administered on 11/06/16 08:34; Admin Dose 600 MG; Start 10/20/16 at 12:15 Aspirin (Halfprin) 81 mg DAILY PO Last administered on 11/06/16 08:35; Admin Dose 81 MG; Start 10/22/16 at 09:00 Lactobacillus Acidoph/Bulgaricus (Floranex) 1 tab BID PO Last administered on 08:34; Admin Dose 1 TAB; Start 10/22/16 at 21:00 Senna/Docusate Sodium (Senokot-S) 2 tab HS PO Last administered on 11/05/16 21: 26; Admin Dose 2 TAB; Start 10/22/16 at 21:00 Lactulose (Enulose) 20 gm TID PRN PO CONSTIPATION Last administered on 13:32; Admin Dose 20 GM; Start 10/23/16 at 17:30 Clonidine HCl 1 patch 1 patch Q7D TRANSDERM Last administered on 10/31/16 08:54 ; Admin Dose 1 PATCH; Start 10/24/16 at 09:00 Meropenem (Merrem 500 Mg/ 100 ml (Pmx)) 100 ml @ 200 mls/hr Q24H IVPB Last administered on 11/05/16 22:48; Admin Dose 200 MLS/HR; Start 10/26/16 at 21:00 Sodium Biphosphate/ Sodium Phosphate (Fleet Enema) 133 ml DAILY PRN [place] CONSTIPATION Last administered on 10/26/16 18:33; Admin Dose 133 ML; Start at 18:00 Naloxone HCl (Narcan) 0.2 mg Q2M PRN IV RR 8 BREATHS/MIN OR LESS; Start at 13:00 Oxycodone/ Acetaminophen (Percocet (5/ 325)) 2 tab Q4H PRN PO PAIN Last administered on 11/05/16 22:52; Admin Dose 2 TAB; Start 10/28/16 at 15:00 Insulin Glargine (Lantus) 4 unit DAILY@20 SC Last administered on 11/05/16 20: 05; Admin Dose 4 UNIT; Start 10/29/16 at 20:00 Benazepril HCl (Lotensin) 10 mg BID PO Last administered on 11/06/16 08:34; Admin Dose 10 MG; Start 10/29/16 at 21:00 Nitroglycerin (Nitroglycerin (Sl Tab) 0.4 Mg) 1 tab Q5M PRN SL ANGINA Last administered on 11/01/16 21:24; Admin Dose 1 TAB; Start 11/01/16 at 21:30 Nitroglycerin (Nitroglycerin (Sl Tab) 0.4 Mg) 1 tab Q5M PRN SL CHEST PAIN; Start 11/01/16 at 22:30 Amlodipine Besylate (Norvasc) 5 mg DAILY PO Last administered on 11/06/16 08:35 ; Admin Dose 5 MG; Start 11/04/16 at 09:00 Hydromorphone HCl (Dilaudid) 2 mg Q2H PRN IV PAIN Last administered on 11:29; Admin Dose 2 MG; Start 11/03/16 at 19:30 Apixaban (Eliquis) 2.5 mg BID PO Last administered on 11/06/16 08:34; Admin Dose 2.5 MG; Start 11/05/16 at 11:30 OZZIE HERRERA MD Nov 06, 2016 14:44
--- NOTE | 2016-11-06 15:24 | CONS ---
Date/Time of Note Date/Time of Note DATE: 11/06/16 TIME: 15:22 Assessment/Plan Assessment/Plan Chief Complaint/Hosp Course IMPRESSION: 1. Preoperative evaluation prior to lower extremity vascular surgery, possible amputation.-Now s/p LLE vascular surgery with failed graft and now Post-op s/p LE amputation 2. Hypertension, uncontrolled. 3. Abnormal electrocardiogram, assess for acute coronary syndrome. 4. Dyslipidemia. 5. Peripheral arterial disease, s/p LE amputation 6. Lower extremity nonhealing ulceration of the toe. 7. PNA 8. End-stage renal disease on hemodialysis. 9. Anemia. 10. Leukocytosis. 11. Cardiomyopathy-LVEF 40-45%-negative trop x 3 since admit-mild CHF by cxr systolic acute on chronic 12. CHest mvft-Cxwq-iw now resolved. Trop negative x 2 post epsiode/EKG 10/29 with lateral TWI(no sig changes)-no recurrence 14. PE Recc: -Tele -Continue current ACEI/BB and follow BP closely -Local wound care/abx's and f/u cx data -Pain control -Continue ASA -HD for volume removal -Continue eliquis Problems: Consultation Date/Type/Reason Admit Date/Time Oct 18, 2016 at 16:52 Initial Consult Date 10/19/2016 Type of Consultation: Cardiology Reason for Consultation HTN Referring Provider: OZZIE HERRERA MD Exam/Review of Systems Vital Signs Vitals Vital Signs Date Time Temp Pulse Resp B/P Pulse Ox O2 Delivery O2 Flow Rate FiO2 11/06/16 12:19 69 11/06/16 11:35 98.3 18 122/60 96 11/06/16 01:23 2.0 11/05/16 20:25 Nasal Cannula 11/04/16 05:37 100 Intake and Output 11/05/16 11/05/16 11/06/16 15:00 23:00 07:00 Intake Total 620 ml 500 ml 275 ml Output Total 3400 ml Balance -2780 ml 500 ml 275 ml Exam Review of Systems: CONSTITUTIONAL: No fevers, chills. PULMONARY: No sob CARDIOVASCULAR: No chest pain/palpitations GASTROINTESTINAL: No nausea/vomiting. GENITOURINARY: No hematuria/dysuria. MUSCULOSKELETAL: No myagias/arthalgias. PSYCHIATRIC: The patient denies depression. NEUROLOGIC: lethargic Constitutional: alert Psych: no complaints Head: normocephalic ENMT: mucosa pink and moist Neck: jvd (8 cm water), supple Respiratory: clear to auscultation Cardiovascular: regular rate and rhythm Gastrointestinal: soft Musculoskeletal: other (s/p LE amputation) Results Result Diagram: 11/06/16 1015 11/06/16 1014 Results 24 hrs Laboratory Tests Test 11/05/16 16:43 11/05/16 20:02 11/05/16 20:46 11/06/16 02:12 Bedside Glucose 131 202 206 176 Test 11/06/16 08:30 11/06/16 10:14 11/06/16 10:15 11/06/16 11:28 Bedside Glucose 130 207 Sodium Level 133 L Potassium Level 4.9 Chloride Level 92 L Carbon Dioxide Level 23 Anion Gap 23 H Blood Urea Nitrogen 61 H Creatinine 7.48 H Glucose Level 216 Calcium Level 7.7 L Magnesium Level 2.0 White Blood Count 17.3 #H Red Blood Count 2.82 L Hemoglobin 8.8 L Hematocrit 28.1 L Mean Corpuscular Volume 99.6 Mean Corpuscular Hemoglobin 31.2 Mean Corpuscular Hemoglobin Concent 31.3 L Red Cell Distribution Width 18.6 H Platelet Count 349 Mean Platelet Volume 11.6 H Neutrophils % 84.1 H Lymphocytes % 7.4 L Monocytes % 7.1 Eosinophils % 0.3 Basophils % 0.1 Nucleated Red Blood Cells % 0.0 Neutrophils # 14.6 H Lymphocytes # 1.3 Monocytes # 1.2 H Eosinophils # 0.1 Basophils # 0.0 Nucleated Red Blood Cells # 0.0 Prothrombin Time 28.9 H Prothrombin Time Ratio 2.3 INR International Normalized Ratio 2.68 Medications Medications Current Medications Metoprolol Tartrate (Lopressor) 25 mg BID PO Last administered on 11/06/16 08: 34; Admin Dose 25 MG; Start 10/18/16 at 19:21 Hydralazine HCl (Apresoline) 10 mg Q4H PRN IV SBP>150 mm Hg Last administered on 10/27/16 20:38; Admin Dose 10 MG; Start 10/18/16 at 20:00 Albuterol (Ventolin Hfa) 2 puff Q8 INH Last administered on 11/06/16 05:18; Admin Dose 2 PUFF; Start 10/18/16 at 22:30 Famotidine (Pepcid) 20 mg DAILY PO Last administered on 11/06/16 08:35; Admin Dose 20 MG; Start 10/19/16 at 09:00 Ondansetron HCl (Zofran Inj) 4 mg Q6H PRN IV NAUSEA AND/OR VOMITING; Start at 22:30 Acetaminophen (Tylenol Tab) 650 mg Q6H PRN PO PAIN LEVEL 1-3 OR FEVER Last administered on 11/01/16 02:36; Admin Dose 650 MG; Start 10/18/16 at 22:30 Docusate Sodium (Colace) 100 mg Q12H PRN PO CONSTIPATION Last administered on 18:01; Admin Dose 100 MG; Start 10/18/16 at 22:30 Bisacodyl (Dulcolax Supp) 10 mg DAILY PRN [place] CONSTIPATION Last administered on 10/26/16 07:04; Admin Dose 10 MG; Start 10/18/16 at 22:30 Diagnostic Test (Pha) (Accucheck) 1 ea 02 XX Last administered on 10/27/16 02: 31; Admin Dose 1 EA; Start 10/19/16 at 02:00 Miscellaneous Information 1 ea NOTE XX ; Start 10/18/16 at 22:30 Glucose (Glutose) 15 gm Q15M PRN PO DECREASED GLUCOSE; Start 10/18/16 at 22:30 Glucose (Glutose) 22.5 gm Q15M PRN PO DECREASED GLUCOSE; Start 10/18/16 at 22: 30 Dextrose (D50w Syringe) 25 ml Q15M PRN IV DECREASED GLUCOSE; Start 10/18/16 at 22:30 Dextrose (D50w Syringe) 50 ml Q15M PRN IV DECREASED GLUCOSE Last administered on 10/27/16 09:35; Admin Dose 50 ML; Start 10/18/16 at 22:30 Glucagon (Glucagen) 1 mg Q15M PRN IM DECREASED GLUCOSE; Start 10/18/16 at 22:30 Glucose (Glutose) 15 gm Q15M PRN BUCCAL DECREASED GLUCOSE; Start 10/18/16 at 22 :30 Linezolid (Zyvox) 600 mg BID PO Last administered on 11/06/16 08:34; Admin Dose 600 MG; Start 10/20/16 at 12:15 Aspirin (Halfprin) 81 mg DAILY PO Last administered on 11/06/16 08:35; Admin Dose 81 MG; Start 10/22/16 at 09:00 Lactobacillus Acidoph/Bulgaricus (Floranex) 1 tab BID PO Last administered on 08:34; Admin Dose 1 TAB; Start 10/22/16 at 21:00 Senna/Docusate Sodium (Senokot-S) 2 tab HS PO Last administered on 11/05/16 21: 26; Admin Dose 2 TAB; Start 10/22/16 at 21:00 Lactulose (Enulose) 20 gm TID PRN PO CONSTIPATION Last administered on 13:32; Admin Dose 20 GM; Start 10/23/16 at 17:30 Clonidine HCl 1 patch 1 patch Q7D TRANSDERM Last administered on 10/31/16 08:54 ; Admin Dose 1 PATCH; Start 10/24/16 at 09:00 Meropenem (Merrem 500 Mg/ 100 ml (Pmx)) 100 ml @ 200 mls/hr Q24H IVPB Last administered on 11/05/16 22:48; Admin Dose 200 MLS/HR; Start 10/26/16 at 21:00 Sodium Biphosphate/ Sodium Phosphate (Fleet Enema) 133 ml DAILY PRN [place] CONSTIPATION Last administered on 10/26/16 18:33; Admin Dose 133 ML; Start at 18:00 Naloxone HCl (Narcan) 0.2 mg Q2M PRN IV RR 8 BREATHS/MIN OR LESS; Start at 13:00 Oxycodone/ Acetaminophen (Percocet (5/ 325)) 2 tab Q4H PRN PO PAIN Last administered on 11/05/16 22:52; Admin Dose 2 TAB; Start 10/28/16 at 15:00 Insulin Glargine (Lantus) 4 unit DAILY@20 SC Last administered on 11/05/16 20: 05; Admin Dose 4 UNIT; Start 10/29/16 at 20:00 Benazepril HCl (Lotensin) 10 mg BID PO Last administered on 11/06/16 08:34; Admin Dose 10 MG; Start 10/29/16 at 21:00 Nitroglycerin (Nitroglycerin (Sl Tab) 0.4 Mg) 1 tab Q5M PRN [place] ANGINA Last administered on 11/01/16 21:24; Admin Dose 1 TAB; Start 11/01/16 at 21:30 Nitroglycerin (Nitroglycerin (Sl Tab) 0.4 Mg) 1 tab Q5M PRN SL CHEST PAIN; Start 11/01/16 at 22:30 Amlodipine Besylate (Norvasc) 5 mg DAILY PO Last administered on 11/06/16 08:35 ; Admin Dose 5 MG; Start 11/04/16 at 09:00 Hydromorphone HCl (Dilaudid) 2 mg Q2H PRN IV PAIN Last administered on 11:29; Admin Dose 2 MG; Start 11/03/16 at 19:30 Apixaban (Eliquis) 2.5 mg BID PO Last administered on 11/06/16 08:34; Admin Dose 2.5 MG; Start 11/05/16 at 11:30 KAYLEE WILSON Nov 06, 2016 15:24
--- NOTE | 2016-11-06 17:12 | CONS ---
Date/Time of Note Date/Time of Note DATE: 11/06/16 TIME: 17:10 Consult Date/Type/Reason Admit Date/Time Oct 18, 2016 at 16:52 Initial Consult Date 11/04/16 Type of Consultation: Pulm Ordering Provider: OZZIE HERRERA MD Subjective Doing better. No events overnight. Objective Vital Signs Date Time Temp Pulse Resp B/P Pulse Ox O2 Delivery O2 Flow Rate FiO2 11/06/16 16:14 70 11/06/16 15:56 98.0 18 127/58 96 11/06/16 01:23 2.0 11/05/16 20:25 Nasal Cannula 11/04/16 05:37 100 Intake and Output 11/05/16 11/05/16 11/06/16 15:00 23:00 07:00 Intake Total 620 ml 500 ml 275 ml Output Total 3400 ml Balance -2780 ml 500 ml 275 ml Exam CARDIAC EXAM: S1, S2. No added sounds or murmurs. CHEST: Diminished air entry at bases b/l ABDOMEN: Soft, nontender. No guarding or rebound. EXTREMITIES: No cyanosis, clubbing or edema. Results/Medications Result Diagram: 11/06/16 1015 11/06/16 1014 Results 24 hrs Laboratory Tests Test 11/05/16 20:02 11/05/16 20:46 11/06/16 02:12 11/06/16 08:30 Bedside Glucose 202 206 176 130 Test 11/06/16 10:14 11/06/16 10:15 11/06/16 11:28 11/06/16 16:48 Sodium Level 133 L Potassium Level 4.9 Chloride Level 92 L Carbon Dioxide Level 23 Anion Gap 23 H Blood Urea Nitrogen 61 H Creatinine 7.48 H Glucose Level 216 Calcium Level 7.7 L Magnesium Level 2.0 White Blood Count 17.3 #H Red Blood Count 2.82 L Hemoglobin 8.8 L Hematocrit 28.1 L Mean Corpuscular Volume 99.6 Mean Corpuscular Hemoglobin 31.2 Mean Corpuscular Hemoglobin Concent 31.3 L Red Cell Distribution Width 18.6 H Platelet Count 349 Mean Platelet Volume 11.6 H Neutrophils % 84.1 H Lymphocytes % 7.4 L Monocytes % 7.1 Eosinophils % 0.3 Basophils % 0.1 Nucleated Red Blood Cells % 0.0 Neutrophils # 14.6 H Lymphocytes # 1.3 Monocytes # 1.2 H Eosinophils # 0.1 Basophils # 0.0 Nucleated Red Blood Cells # 0.0 Prothrombin Time 28.9 H Prothrombin Time Ratio 2.3 INR International Normalized Ratio 2.68 Bedside Glucose 207 111 Medications Current Medications Metoprolol Tartrate (Lopressor) 25 mg BID PO Last administered on 11/06/16 08: 34; Admin Dose 25 MG; Start 10/18/16 at 19:21 Hydralazine HCl (Apresoline) 10 mg Q4H PRN IV SBP>150 mm Hg Last administered on 10/27/16 20:38; Admin Dose 10 MG; Start 10/18/16 at 20:00 Albuterol (Ventolin Hfa) 2 puff Q8 INH Last administered on 11/06/16 05:18; Admin Dose 2 PUFF; Start 10/18/16 at 22:30 Famotidine (Pepcid) 20 mg DAILY PO Last administered on 11/06/16 08:35; Admin Dose 20 MG; Start 10/19/16 at 09:00 Ondansetron HCl (Zofran Inj) 4 mg Q6H PRN IV NAUSEA AND/OR VOMITING; Start at 22:30 Acetaminophen (Tylenol Tab) 650 mg Q6H PRN PO PAIN LEVEL 1-3 OR FEVER Last administered on 11/01/16 02:36; Admin Dose 650 MG; Start 10/18/16 at 22:30 Docusate Sodium (Colace) 100 mg Q12H PRN PO CONSTIPATION Last administered on 18:01; Admin Dose 100 MG; Start 10/18/16 at 22:30 Bisacodyl (Dulcolax Supp) 10 mg DAILY PRN [place] CONSTIPATION Last administered on 10/26/16 07:04; Admin Dose 10 MG; Start 10/18/16 at 22:30 Diagnostic Test (Pha) (Accucheck) 1 ea 02 XX Last administered on 10/27/16 02: 31; Admin Dose 1 EA; Start 10/19/16 at 02:00 Miscellaneous Information 1 ea NOTE XX ; Start 10/18/16 at 22:30 Glucose (Glutose) 15 gm Q15M PRN PO DECREASED GLUCOSE; Start 10/18/16 at 22:30 Glucose (Glutose) 22.5 gm Q15M PRN PO DECREASED GLUCOSE; Start 10/18/16 at 22: 30 Dextrose (D50w Syringe) 25 ml Q15M PRN IV DECREASED GLUCOSE; Start 10/18/16 at 22:30 Dextrose (D50w Syringe) 50 ml Q15M PRN IV DECREASED GLUCOSE Last administered on 10/27/16 09:35; Admin Dose 50 ML; Start 10/18/16 at 22:30 Glucagon (Glucagen) 1 mg Q15M PRN IM DECREASED GLUCOSE; Start 10/18/16 at 22:30 Glucose (Glutose) 15 gm Q15M PRN BUCCAL DECREASED GLUCOSE; Start 10/18/16 at 22 :30 Linezolid (Zyvox) 600 mg BID PO Last administered on 11/06/16 08:34; Admin Dose 600 MG; Start 10/20/16 at 12:15 Aspirin (Halfprin) 81 mg DAILY PO Last administered on 11/06/16 08:35; Admin Dose 81 MG; Start 10/22/16 at 09:00 Lactobacillus Acidoph/Bulgaricus (Floranex) 1 tab BID PO Last administered on 08:34; Admin Dose 1 TAB; Start 10/22/16 at 21:00 Senna/Docusate Sodium (Senokot-S) 2 tab HS PO Last administered on 11/05/16 21: 26; Admin Dose 2 TAB; Start 10/22/16 at 21:00 Lactulose (Enulose) 20 gm TID PRN PO CONSTIPATION Last administered on 13:32; Admin Dose 20 GM; Start 10/23/16 at 17:30 Clonidine HCl 1 patch 1 patch Q7D TRANSDERM Last administered on 10/31/16 08:54 ; Admin Dose 1 PATCH; Start 10/24/16 at 09:00 Meropenem (Merrem 500 Mg/ 100 ml (Pmx)) 100 ml @ 200 mls/hr Q24H IVPB Last administered on 11/05/16 22:48; Admin Dose 200 MLS/HR; Start 10/26/16 at 21:00 Sodium Biphosphate/ Sodium Phosphate (Fleet Enema) 133 ml DAILY PRN [place] CONSTIPATION Last administered on 10/26/16 18:33; Admin Dose 133 ML; Start at 18:00 Naloxone HCl (Narcan) 0.2 mg Q2M PRN IV RR 8 BREATHS/MIN OR LESS; Start at 13:00 Oxycodone/ Acetaminophen (Percocet (5/ 325)) 2 tab Q4H PRN PO PAIN Last administered on 11/05/16 22:52; Admin Dose 2 TAB; Start 10/28/16 at 15:00 Insulin Glargine (Lantus) 4 unit DAILY@20 SC Last administered on 11/05/16 20: 05; Admin Dose 4 UNIT; Start 10/29/16 at 20:00 Benazepril HCl (Lotensin) 10 mg BID PO Last administered on 11/06/16 08:34; Admin Dose 10 MG; Start 10/29/16 at 21:00 Nitroglycerin (Nitroglycerin (Sl Tab) 0.4 Mg) 1 tab Q5M PRN SL ANGINA Last administered on 11/01/16 21:24; Admin Dose 1 TAB; Start 11/01/16 at 21:30 Nitroglycerin (Nitroglycerin (Sl Tab) 0.4 Mg) 1 tab Q5M PRN SL CHEST PAIN; Start 11/01/16 at 22:30 Amlodipine Besylate (Norvasc) 5 mg DAILY PO Last administered on 11/06/16 08:35 ; Admin Dose 5 MG; Start 11/04/16 at 09:00 Hydromorphone HCl (Dilaudid) 2 mg Q2H PRN IV PAIN Last administered on 17:09; Admin Dose 2 MG; Start 11/03/16 at 19:30 Apixaban (Eliquis) 2.5 mg BID PO Last administered on 11/06/16 08:34; Admin Dose 2.5 MG; Start 11/05/16 at 11:30 Assessment/Plan Additional Assessment/Plan IMP: 1. Hypoxemic respiratory failure secondary to volume overload with compressive atelectasis 2. Possible component of pneumonia 3. Acute pulmonary embolism right lower lobe 4. Incidental solitary nodule found on chest CT 5. Peripheral vascular disease with lower extremity wounds 6. End-stage renal failure on hemodialysis RECS: 1. Anticoagulation 2. De-escalate abx 3. Mobilize OOB/PT/OT GAYLA FINNEY MD Nov 06, 2016 17:12
[2016-11-06] MEDS: SENNA/DOCUSATE NA (8.6MG/50MG) TAB PO SCH (21:05)
[2016-11-06] MEDS: MEROPENEM 500 MG/100 ML (PMX) 100 ML IVPB SCH (21:09)
[2016-11-06] MEDS: INSULIN GLARGINE [LANtus] 3 ML PEN SC SCH (21:17)
[2016-11-07] VITALS (18 sets, daily range): BP systolic 121–145; BP diastolic 60–79; PULSE 60–78; RESP 18–20
[2016-11-07] MEDS: HYDROmorphONE 2 MG/ML SYG IV PRN ×4 (00:34→20:45)
[2016-11-07] MEDS: ACCU-CHEK XX SCH (02:00)
[2016-11-07] MEDS: OXYCODONE/ACETAMINOPHEN (5/325) TAB PO PRN (03:08)
[2016-11-07] MEDS: ALBUTEROL HFA 8 GM INHALER INH SCH ×3 (05:18→22:00)
[2016-11-07 06:25] LABS: ADD SCAN DIFF NO
[2016-11-07 06:44] LABS: BASOPHILS % 0.1 % (0.0-2.0); EOSINOPHILS # 0.1 10^3/ul (0.0-0.5); EOSINOPHILS % 0.9 % (0.0-7.0); HEMATOCRIT 26.5 % (42.0-52.0); HEMOGLOBIN 8.4 g/dl (14.0-18.0); LYMPHOCYTES # 2.4 10^3/ul (0.8-2.9); LYMPHOCYTES % 15.9 % (15.0-51.0); MEAN CORPUSCULAR HGB CONC 31.7 g/dl (32.0-37.0); MEAN CORPUSCULAR VOLUME 97.8 fl (82.0-101.0); MONOCYTE # 1.5 10^3/ul (0.3-0.9); MONOCYTES % 9.6 % (0.0-11.0); NEUTROPHILS % 72.4 % (39.0-77.0); PLATELET COUNT 339 10^3/UL (140-415); RED BLOOD COUNT 2.71 10^6/ul (4.70-6.10); RED CELL DISTRIBUTION WIDTH 18.5 % (11.5-14.5); WHITE BLOOD COUNT 15.2 10^3/ul (4.8-10.8)
[2016-11-07 06:56] LABS: POTASSIUM 5.3 mmol/L (3.5-5.1)
[2016-11-07 06:58] LABS: CREATININE 8.6 mg/dl (0.61-1.24)
[2016-11-07 06:59] LABS: CALCIUM 7.8 mg/dl (8.4-10.2)
[2016-11-07] MEDS: INSULIN ASPART [NOVOLOG] 3 ML PEN SC SCH ×4 (07:55→20:53)
[2016-11-07] MEDS: METOPROLOL 25 MG TAB PO SCH ×2 (08:33→20:47)
[2016-11-07] MEDS: LACTOBACILLUS CHEW TAB PO SCH ×2 (08:33→20:46)
[2016-11-07] MEDS: ASPIRIN (EC) 81 MG TAB PO SCH (08:34)
[2016-11-07] MEDS: CLONIDINE 0.1 MG/24 HR PATCH TRANSDERM SCH (08:34)
[2016-11-07] MEDS: FAMOTIDINE 20 MG TAB PO SCH (08:34)
[2016-11-07] MEDS: BENAZEPRIL 10 MG TAB PO SCH ×2 (08:34→20:48)
[2016-11-07] MEDS: APIXABAN 5 MG TABLET PO SCH ×2 (08:34→20:47)
[2016-11-07] MEDS: AMLODIPINE 5 MG TAB PO SCH (08:34)
[2016-11-07] MEDS: ZYVOX 600 MG TAB PO SCH ×2 (08:34→20:48)
--- NOTE | 2016-11-07 13:32 | CONS ---
Date/Time of Note Date/Time of Note DATE: 11/07/16 TIME: 13:30 Assessment/Plan Assessment/Plan Chief Complaint/Hosp Course IMPRESSION: 1. Preoperative evaluation prior to lower extremity vascular surgery, possible amputation.-Now s/p LLE vascular surgery with failed graft and now Post-op s/p LE amputation 2. Hypertension-Well controlled 3. Abnormal electrocardiogram, assess for acute coronary syndrome. 4. Dyslipidemia. 5. Peripheral arterial disease, s/p LE amputation 6. Lower extremity nonhealing ulceration of the toe. 7. PNA 8. End-stage renal disease on hemodialysis. 9. Anemia. 10. Leukocytosis. 11. Cardiomyopathy-LVEF 40-45%-negative trop x 3 since admit-mild CHF by cxr systolic acute on chronic 12. CHest qghd-Sxah-va now resolved. Trop negative x 2 post epsiode/EKG 10/29 with lateral TWI(no sig changes)-no recurrence 14. PE Recc: -Tele -Continue current ACEI/BB and follow BP closely -Local wound care/abx's and f/u cx data -Pain control -Continue ASA -HD for volume removal -Continue eliquis Problems: Consultation Date/Type/Reason Admit Date/Time Oct 18, 2016 at 16:52 Initial Consult Date 10/19/2016 Type of Consultation: Cardiology Reason for Consultation HTN Referring Provider: OZZIE HERRERA MD Exam/Review of Systems Vital Signs Vitals Vital Signs Date Time Temp Pulse Resp B/P Pulse Ox O2 Delivery O2 Flow Rate FiO2 11/07/16 13:00 70 11/07/16 11:47 98.0 18 121/65 96 11/07/16 01:07 21 11/06/16 17:39 2.0 11/05/16 20:25 Nasal Cannula Intake and Output 11/06/16 11/06/16 11/07/16 15:00 23:00 07:00 Intake Total 750 ml 240 ml Output Total 250 ml Balance 500 ml 240 ml Exam Review of Systems: CONSTITUTIONAL: No fevers, chills. PULMONARY: No sob CARDIOVASCULAR: No chest pain/palpitations GASTROINTESTINAL: No nausea/vomiting. GENITOURINARY: No hematuria/dysuria. MUSCULOSKELETAL: Mild pain in leg PSYCHIATRIC: The patient denies depression. NEUROLOGIC: No weakness Constitutional: alert Psych: no complaints Head: normocephalic ENMT: mucosa pink and moist Neck: jvd (9 cm water), supple Respiratory: diminished breath sounds (at bases/B) Cardiovascular: regular rate and rhythm Gastrointestinal: non-tender, soft Musculoskeletal: muscle tone (normal) Extremities: edema Results Result Diagram: 11/07/16 0535 11/07/16 0535 Results 24 hrs Laboratory Tests Test 11/06/16 16:48 11/06/16 21:12 11/07/16 05:35 11/07/16 07:35 Bedside Glucose 111 168 102 White Blood Count 15.2 H Red Blood Count 2.71 L Hemoglobin 8.4 L Hematocrit 26.5 L Mean Corpuscular Volume 97.8 Mean Corpuscular Hemoglobin 31.0 Mean Corpuscular Hemoglobin Concent 31.7 L Red Cell Distribution Width 18.5 H Platelet Count 339 Mean Platelet Volume 12.0 H Neutrophils % 72.4 Lymphocytes % 15.9 Monocytes % 9.6 Eosinophils % 0.9 Basophils % 0.1 Nucleated Red Blood Cells % 0.0 Neutrophils # 11.0 H Lymphocytes # 2.4 Monocytes # 1.5 H Eosinophils # 0.1 Basophils # 0.0 Nucleated Red Blood Cells # 0.0 Sodium Level 132 L Potassium Level 5.3 H Chloride Level 93 L Carbon Dioxide Level 21 Anion Gap 23 H Blood Urea Nitrogen 77 H Creatinine 8.60 H Glucose Level 101 # Calcium Level 7.8 L Test 11/07/16 12:59 Bedside Glucose 211 Medications Medications Current Medications Metoprolol Tartrate (Lopressor) 25 mg BID PO Last administered on 11/07/16 08: 33; Admin Dose 25 MG; Start 10/18/16 at 19:21 Hydralazine HCl (Apresoline) 10 mg Q4H PRN IV SBP>150 mm Hg Last administered on 10/27/16 20:38; Admin Dose 10 MG; Start 10/18/16 at 20:00 Albuterol (Ventolin Hfa) 2 puff Q8 INH Last administered on 11/07/16 05:18; Admin Dose 2 PUFF; Start 10/18/16 at 22:30 Famotidine (Pepcid) 20 mg DAILY PO Last administered on 11/07/16 08:34; Admin Dose 20 MG; Start 10/19/16 at 09:00 Ondansetron HCl (Zofran Inj) 4 mg Q6H PRN IV NAUSEA AND/OR VOMITING; Start at 22:30 Acetaminophen (Tylenol Tab) 650 mg Q6H PRN PO PAIN LEVEL 1-3 OR FEVER Last administered on 11/01/16 02:36; Admin Dose 650 MG; Start 10/18/16 at 22:30 Docusate Sodium (Colace) 100 mg Q12H PRN PO CONSTIPATION Last administered on 18:01; Admin Dose 100 MG; Start 10/18/16 at 22:30 Bisacodyl (Dulcolax Supp) 10 mg DAILY PRN [place] CONSTIPATION Last administered on 10/26/16 07:04; Admin Dose 10 MG; Start 10/18/16 at 22:30 Diagnostic Test (Pha) (Accucheck) 1 ea 02 XX Last administered on 10/27/16 02: 31; Admin Dose 1 EA; Start 10/19/16 at 02:00 Miscellaneous Information 1 ea NOTE XX ; Start 10/18/16 at 22:30 Glucose (Glutose) 15 gm Q15M PRN PO DECREASED GLUCOSE; Start 10/18/16 at 22:30 Glucose (Glutose) 22.5 gm Q15M PRN PO DECREASED GLUCOSE; Start 10/18/16 at 22: 30 Dextrose (D50w Syringe) 25 ml Q15M PRN IV DECREASED GLUCOSE; Start 10/18/16 at 22:30 Dextrose (D50w Syringe) 50 ml Q15M PRN IV DECREASED GLUCOSE Last administered on 10/27/16 09:35; Admin Dose 50 ML; Start 10/18/16 at 22:30 Glucagon (Glucagen) 1 mg Q15M PRN IM DECREASED GLUCOSE; Start 10/18/16 at 22:30 Glucose (Glutose) 15 gm Q15M PRN BUCCAL DECREASED GLUCOSE; Start 10/18/16 at 22 :30 Linezolid (Zyvox) 600 mg BID PO Last administered on 11/07/16 08:34; Admin Dose 600 MG; Start 10/20/16 at 12:15 Aspirin (Halfprin) 81 mg DAILY PO Last administered on 11/07/16 08:34; Admin Dose 81 MG; Start 10/22/16 at 09:00 Lactobacillus Acidoph/Bulgaricus (Floranex) 1 tab BID PO Last administered on 08:33; Admin Dose 1 TAB; Start 10/22/16 at 21:00 Senna/Docusate Sodium (Senokot-S) 2 tab HS PO Last administered on 11/06/16 21: 05; Admin Dose 2 TAB; Start 10/22/16 at 21:00 Lactulose (Enulose) 20 gm TID PRN PO CONSTIPATION Last administered on 13:32; Admin Dose 20 GM; Start 10/23/16 at 17:30 Clonidine HCl 1 patch 1 patch Q7D TRANSDERM Last administered on 11/07/16 08:34 ; Admin Dose 1 PATCH; Start 10/24/16 at 09:00 Meropenem (Merrem 500 Mg/ 100 ml (Pmx)) 100 ml @ 200 mls/hr Q24H IVPB Last administered on 11/06/16 21:09; Admin Dose 200 MLS/HR; Start 10/26/16 at 21:00 Sodium Biphosphate/ Sodium Phosphate (Fleet Enema) 133 ml DAILY PRN [place] CONSTIPATION Last administered on 10/26/16 18:33; Admin Dose 133 ML; Start at 18:00 Naloxone HCl (Narcan) 0.2 mg Q2M PRN IV RR 8 BREATHS/MIN OR LESS; Start at 13:00 Oxycodone/ Acetaminophen (Percocet (5/ 325)) 2 tab Q4H PRN PO PAIN Last administered on 11/07/16 03:08; Admin Dose 2 TAB; Start 10/28/16 at 15:00 Insulin Glargine (Lantus) 4 unit DAILY@20 SC Last administered on 11/06/16 21: 17; Admin Dose 4 UNIT; Start 10/29/16 at 20:00 Benazepril HCl (Lotensin) 10 mg BID PO Last administered on 11/07/16 08:34; Admin Dose 10 MG; Start 10/29/16 at 21:00 Nitroglycerin (Nitroglycerin (Sl Tab) 0.4 Mg) 1 tab Q5M PRN SL ANGINA Last administered on 11/01/16 21:24; Admin Dose 1 TAB; Start 11/01/16 at 21:30 Nitroglycerin (Nitroglycerin (Sl Tab) 0.4 Mg) 1 tab Q5M PRN SL CHEST PAIN; Start 11/01/16 at 22:30 Amlodipine Besylate (Norvasc) 5 mg DAILY PO Last administered on 11/07/16 08:34 ; Admin Dose 5 MG; Start 11/04/16 at 09:00 Hydromorphone HCl (Dilaudid) 2 mg Q2H PRN IV PAIN Last administered on 09:49; Admin Dose 2 MG; Start 11/03/16 at 19:30 Apixaban (Eliquis) 2.5 mg BID PO Last administered on 11/07/16 08:34; Admin Dose 2.5 MG; Start 11/05/16 at 11:30 KAYLEE WILSON Nov 07, 2016 13:32
--- NOTE | 2016-11-07 14:37 | CONS ---
Date/Time of Note Date/Time of Note DATE: 11/07/16 TIME: 14:36 Assessment/Plan Assessment/Plan Chief Complaint/Hosp Course 1. 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 Failed redo bypass.post-surgical intervention with thrombectomy, exploration of the above knee popliteal graft and debridement of left lower extremity wound with wound VAC application on 10/19/2016.- Not improving, s/p AKA by vascular surgery on 11/03/16 2. Severe stenosis of the right distal superficial femoral artery and occluded right posterior tibial artery. 3. End-stage renal disease on hemodialysis Tuesday, , Tuesday. 4. Accelerated hypertension. 5. Hyperlipidemia. 6. History of hypertension with peripheral arterial disease. 7. History of peripheral arterial disease status post left lower extremity bypass in September 2016. PLAN: s/p Removal of permacath, then pt went into Resp distress yesterday, required emergent Fernanda catheter placement- s/p exchange of new right groin fernanda, will plan for HD today pt has not had a good hD in last 2 days due to catheter problems will continue to follow up on patient Total Time spent in critical nephrology care is more than 45 minutes, communicated with Dr Paige/ family/ Nursing staff at bedside Problems: Consultation Date/Type/Reason Admit Date/Time Oct 18, 2016 at 16:52 Type of Consultation: Cardiology Referring Provider: OZZIE HERRERA MD Exam/Review of Systems Vital Signs Vitals Vital Signs Date Time Temp Pulse Resp B/P Pulse Ox O2 Delivery O2 Flow Rate FiO2 11/07/16 13:00 70 11/07/16 11:47 98.0 18 121/65 96 11/07/16 01:07 21 11/06/16 17:39 2.0 11/05/16 20:25 Nasal Cannula Intake and Output 11/06/16 11/06/16 11/07/16 15:00 23:00 07:00 Intake Total 750 ml 240 ml Output Total 250 ml Balance 500 ml 240 ml Exam Constitutional: alert, well developed Psych: nl mood/affect Head: atraumatic Eyes: EOMI, nl lids ENMT: nl external ears & nose Neck: supple Respiratory: clear to auscultation Cardiovascular: nl pulses Gastrointestinal: non-tender, soft Musculoskeletal: other (left bka) Neurological: nl mental status Skin: other Lymph: nontender Results Result Diagram: 11/07/16 0535 11/07/16 0535 Results 24 hrs Laboratory Tests Test 11/06/16 16:48 11/06/16 21:12 11/07/16 05:35 11/07/16 07:35 Bedside Glucose 111 168 102 White Blood Count 15.2 H Red Blood Count 2.71 L Hemoglobin 8.4 L Hematocrit 26.5 L Mean Corpuscular Volume 97.8 Mean Corpuscular Hemoglobin 31.0 Mean Corpuscular Hemoglobin Concent 31.7 L Red Cell Distribution Width 18.5 H Platelet Count 339 Mean Platelet Volume 12.0 H Neutrophils % 72.4 Lymphocytes % 15.9 Monocytes % 9.6 Eosinophils % 0.9 Basophils % 0.1 Nucleated Red Blood Cells % 0.0 Neutrophils # 11.0 H Lymphocytes # 2.4 Monocytes # 1.5 H Eosinophils # 0.1 Basophils # 0.0 Nucleated Red Blood Cells # 0.0 Sodium Level 132 L Potassium Level 5.3 H Chloride Level 93 L Carbon Dioxide Level 21 Anion Gap 23 H Blood Urea Nitrogen 77 H Creatinine 8.60 H Glucose Level 101 # Calcium Level 7.8 L Test 11/07/16 12:59 Bedside Glucose 211 Medications Medications Current Medications Metoprolol Tartrate (Lopressor) 25 mg BID PO Last administered on 11/07/16 08: 33; Admin Dose 25 MG; Start 10/18/16 at 19:21 Hydralazine HCl (Apresoline) 10 mg Q4H PRN IV SBP>150 mm Hg Last administered on 10/27/16 20:38; Admin Dose 10 MG; Start 10/18/16 at 20:00 Albuterol (Ventolin Hfa) 2 puff Q8 INH Last administered on 11/07/16 05:18; Admin Dose 2 PUFF; Start 10/18/16 at 22:30 Famotidine (Pepcid) 20 mg DAILY PO Last administered on 11/07/16 08:34; Admin Dose 20 MG; Start 10/19/16 at 09:00 Ondansetron HCl (Zofran Inj) 4 mg Q6H PRN IV NAUSEA AND/OR VOMITING; Start at 22:30 Acetaminophen (Tylenol Tab) 650 mg Q6H PRN PO PAIN LEVEL 1-3 OR FEVER Last administered on 11/01/16 02:36; Admin Dose 650 MG; Start 10/18/16 at 22:30 Docusate Sodium (Colace) 100 mg Q12H PRN PO CONSTIPATION Last administered on 18:01; Admin Dose 100 MG; Start 10/18/16 at 22:30 Bisacodyl (Dulcolax Supp) 10 mg DAILY PRN [place] CONSTIPATION Last administered on 10/26/16 07:04; Admin Dose 10 MG; Start 10/18/16 at 22:30 Diagnostic Test (Pha) (Accucheck) 1 ea 02 XX Last administered on 10/27/16 02: 31; Admin Dose 1 EA; Start 10/19/16 at 02:00 Miscellaneous Information 1 ea NOTE XX ; Start 10/18/16 at 22:30 Glucose (Glutose) 15 gm Q15M PRN PO DECREASED GLUCOSE; Start 10/18/16 at 22:30 Glucose (Glutose) 22.5 gm Q15M PRN PO DECREASED GLUCOSE; Start 10/18/16 at 22: 30 Dextrose (D50w Syringe) 25 ml Q15M PRN IV DECREASED GLUCOSE; Start 10/18/16 at 22:30 Dextrose (D50w Syringe) 50 ml Q15M PRN IV DECREASED GLUCOSE Last administered on 10/27/16 09:35; Admin Dose 50 ML; Start 10/18/16 at 22:30 Glucagon (Glucagen) 1 mg Q15M PRN IM DECREASED GLUCOSE; Start 10/18/16 at 22:30 Glucose (Glutose) 15 gm Q15M PRN BUCCAL DECREASED GLUCOSE; Start 10/18/16 at 22 :30 Linezolid (Zyvox) 600 mg BID PO Last administered on 11/07/16 08:34; Admin Dose 600 MG; Start 10/20/16 at 12:15 Aspirin (Halfprin) 81 mg DAILY PO Last administered on 11/07/16 08:34; Admin Dose 81 MG; Start 10/22/16 at 09:00 Lactobacillus Acidoph/Bulgaricus (Floranex) 1 tab BID PO Last administered on 08:33; Admin Dose 1 TAB; Start 10/22/16 at 21:00 Senna/Docusate Sodium (Senokot-S) 2 tab HS PO Last administered on 11/06/16 21: 05; Admin Dose 2 TAB; Start 10/22/16 at 21:00 Lactulose (Enulose) 20 gm TID PRN PO CONSTIPATION Last administered on 13:32; Admin Dose 20 GM; Start 10/23/16 at 17:30 Clonidine HCl 1 patch 1 patch Q7D TRANSDERM Last administered on 11/07/16 08:34 ; Admin Dose 1 PATCH; Start 10/24/16 at 09:00 Meropenem (Merrem 500 Mg/ 100 ml (Pmx)) 100 ml @ 200 mls/hr Q24H IVPB Last administered on 11/06/16 21:09; Admin Dose 200 MLS/HR; Start 10/26/16 at 21:00 Sodium Biphosphate/ Sodium Phosphate (Fleet Enema) 133 ml DAILY PRN [place] CONSTIPATION Last administered on 10/26/16 18:33; Admin Dose 133 ML; Start at 18:00 Naloxone HCl (Narcan) 0.2 mg Q2M PRN IV RR 8 BREATHS/MIN OR LESS; Start at 13:00 Oxycodone/ Acetaminophen (Percocet (5/ 325)) 2 tab Q4H PRN PO PAIN Last administered on 11/07/16 03:08; Admin Dose 2 TAB; Start 10/28/16 at 15:00 Insulin Glargine (Lantus) 4 unit DAILY@20 SC Last administered on 11/06/16 21: 17; Admin Dose 4 UNIT; Start 10/29/16 at 20:00 Benazepril HCl (Lotensin) 10 mg BID PO Last administered on 11/07/16 08:34; Admin Dose 10 MG; Start 10/29/16 at 21:00 Nitroglycerin (Nitroglycerin (Sl Tab) 0.4 Mg) 1 tab Q5M PRN SL ANGINA Last administered on 11/01/16 21:24; Admin Dose 1 TAB; Start 11/01/16 at 21:30 Nitroglycerin (Nitroglycerin (Sl Tab) 0.4 Mg) 1 tab Q5M PRN SL CHEST PAIN; Start 11/01/16 at 22:30 Amlodipine Besylate (Norvasc) 5 mg DAILY PO Last administered on 11/07/16 08:34 ; Admin Dose 5 MG; Start 11/04/16 at 09:00 Hydromorphone HCl (Dilaudid) 2 mg Q2H PRN IV PAIN Last administered on 09:49; Admin Dose 2 MG; Start 11/03/16 at 19:30 Apixaban (Eliquis) 2.5 mg BID PO Last administered on 11/07/16 08:34; Admin Dose 2.5 MG; Start 11/05/16 at 11:30 Docusate Sodium (Colace) 100 mg DAILY PO ; Start 11/07/16 at 14:30 CHERELLE TY Nov 07, 2016 14:37
[2016-11-07] MEDS: DOCUSATE SODIUM 100 MG CAP PO SCH (14:40)
--- NOTE | 2016-11-07 15:02 | PN ---
Date/Time of Note Date/Time of Note DATE: 11/07/16 TIME: 15:01 Assessment/Plan VTE Prophylaxis VTE Prophylaxis Intervention: other Lines/Catheters IV [facility]from [facility] Urinary Cath still in place: No Assessment/Plan Chief Complaint/Hosp Course Assessment and plan 1. 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 Patient does have history of bypass on area that had thrombosed. 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 Also noted with right lower extremity gangrene. 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 Continue with analgesics. wound care per vascular surgeon Pain management physician consulted for further assistance. Await recommendations. cont with abx per ID (ESBL in wound) 2. ESRD on dialysis. Continue on HD. Follow-up with nephrology recommendations 3. Hypertension. Continue on antihypertensives and adjust needed. Stable 4. Anemia of chronic disease. H&H stable. Monitor for now. 5. History of diabetes. Continue on insulin regimen. Will adjust as needed 6. CAD. Continue on antiplatelet therapy 7. Peripheral vascular disease. Continue aggressive medical management, vascular surgeon has been consulted 8. Acute respiratory distress. Likely secondary to fluid overload. Resolved status post urgent hemodialysis 9. Leukocytosis. Continue IV antibiotics, infectious disease doctor has been consulted 10. Pulmonary embolism. Continue heparin and transitioned to oral anticoagulation as per vascular surgeon Disposition and plan:. Continue with product safety consultant recommendations. cont with analgesics Problems: Subjective 24 Hr Interval Summary Free Text/Dictation Complains of having constipation Denies of any chest pain or shortness of breath No nausea vomiting diarrhea Exam/Review of Systems Vital Signs Vitals Vital Signs Date Time Temp Pulse Resp B/P Pulse Ox O2 Delivery O2 Flow Rate FiO2 11/07/16 14:00 72 17 11/07/16 11:47 98.0 121/65 96 11/07/16 01:07 21 11/06/16 17:39 2.0 11/05/16 20:25 Nasal Cannula Intake and Output 11/06/16 11/06/16 11/07/16 15:00 23:00 07:00 Intake Total 750 ml 240 ml Output Total 250 ml Balance 500 ml 240 ml Exam General: The patient is well-developed, Not in acute distress. HEENT: Atraumatic, normocephalic. The pupils are equal and round . Neck: Supple with full range of motion. Chest: Normal expansion of the thorax during inspiration Lungs: Clear to auscultation bilaterally Heart: Normal S1-S2, Regular rhythm and rate. Abdomen: Soft , nontender, nondistended , bowel sounds are present. Extremities: Status post left lower extremity AKA, surgical site is dry and clean, no edema no cyanosis Neurologic: Normal mental status,The patient is awake, alert and oriented . Results Result Diagram: 11/07/16 0535 11/07/16 0535 Results 24 hrs Laboratory Tests Test 11/06/16 16:48 11/06/16 21:12 11/07/16 05:35 11/07/16 07:35 Bedside Glucose 111 168 102 White Blood Count 15.2 H Red Blood Count 2.71 L Hemoglobin 8.4 L Hematocrit 26.5 L Mean Corpuscular Volume 97.8 Mean Corpuscular Hemoglobin 31.0 Mean Corpuscular Hemoglobin Concent 31.7 L Red Cell Distribution Width 18.5 H Platelet Count 339 Mean Platelet Volume 12.0 H Neutrophils % 72.4 Lymphocytes % 15.9 Monocytes % 9.6 Eosinophils % 0.9 Basophils % 0.1 Nucleated Red Blood Cells % 0.0 Neutrophils # 11.0 H Lymphocytes # 2.4 Monocytes # 1.5 H Eosinophils # 0.1 Basophils # 0.0 Nucleated Red Blood Cells # 0.0 Sodium Level 132 L Potassium Level 5.3 H Chloride Level 93 L Carbon Dioxide Level 21 Anion Gap 23 H Blood Urea Nitrogen 77 H Creatinine 8.60 H Glucose Level 101 # Calcium Level 7.8 L Test 11/07/16 12:59 Bedside Glucose 211 Medications Medications Current Medications Metoprolol Tartrate (Lopressor) 25 mg BID PO Last administered on 11/07/16 08: 33; Admin Dose 25 MG; Start 10/18/16 at 19:21 Hydralazine HCl (Apresoline) 10 mg Q4H PRN IV SBP>150 mm Hg Last administered on 10/27/16 20:38; Admin Dose 10 MG; Start 10/18/16 at 20:00 Albuterol (Ventolin Hfa) 2 puff Q8 INH Last administered on 11/07/16 14:40; Admin Dose 2 PUFF; Start 10/18/16 at 22:30 Famotidine (Pepcid) 20 mg DAILY PO Last administered on 11/07/16 08:34; Admin Dose 20 MG; Start 10/19/16 at 09:00 Ondansetron HCl (Zofran Inj) 4 mg Q6H PRN IV NAUSEA AND/OR VOMITING; Start at 22:30 Acetaminophen (Tylenol Tab) 650 mg Q6H PRN PO PAIN LEVEL 1-3 OR FEVER Last administered on 11/01/16 02:36; Admin Dose 650 MG; Start 10/18/16 at 22:30 Docusate Sodium (Colace) 100 mg Q12H PRN PO CONSTIPATION Last administered on 18:01; Admin Dose 100 MG; Start 10/18/16 at 22:30 Bisacodyl (Dulcolax Supp) 10 mg DAILY PRN [place] CONSTIPATION Last administered on 10/26/16 07:04; Admin Dose 10 MG; Start 10/18/16 at 22:30 Diagnostic Test (Pha) (Accucheck) 1 ea 02 XX Last administered on 10/27/16 02: 31; Admin Dose 1 EA; Start 10/19/16 at 02:00 Miscellaneous Information 1 ea NOTE XX ; Start 10/18/16 at 22:30 Glucose (Glutose) 15 gm Q15M PRN PO DECREASED GLUCOSE; Start 10/18/16 at 22:30 Glucose (Glutose) 22.5 gm Q15M PRN PO DECREASED GLUCOSE; Start 10/18/16 at 22: 30 Dextrose (D50w Syringe) 25 ml Q15M PRN IV DECREASED GLUCOSE; Start 10/18/16 at 22:30 Dextrose (D50w Syringe) 50 ml Q15M PRN IV DECREASED GLUCOSE Last administered on 10/27/16 09:35; Admin Dose 50 ML; Start 10/18/16 at 22:30 Glucagon (Glucagen) 1 mg Q15M PRN IM DECREASED GLUCOSE; Start 10/18/16 at 22:30 Glucose (Glutose) 15 gm Q15M PRN BUCCAL DECREASED GLUCOSE; Start 10/18/16 at 22 :30 Linezolid (Zyvox) 600 mg BID PO Last administered on 11/07/16 08:34; Admin Dose 600 MG; Start 10/20/16 at 12:15 Aspirin (Halfprin) 81 mg DAILY PO Last administered on 11/07/16 08:34; Admin Dose 81 MG; Start 10/22/16 at 09:00 Lactobacillus Acidoph/Bulgaricus (Floranex) 1 tab BID PO Last administered on 08:33; Admin Dose 1 TAB; Start 10/22/16 at 21:00 Senna/Docusate Sodium (Senokot-S) 2 tab HS PO Last administered on 11/06/16 21: 05; Admin Dose 2 TAB; Start 10/22/16 at 21:00 Lactulose (Enulose) 20 gm TID PRN PO CONSTIPATION Last administered on 13:32; Admin Dose 20 GM; Start 10/23/16 at 17:30 Clonidine HCl 1 patch 1 patch Q7D TRANSDERM Last administered on 11/07/16 08:34 ; Admin Dose 1 PATCH; Start 10/24/16 at 09:00 Meropenem (Merrem 500 Mg/ 100 ml (Pmx)) 100 ml @ 200 mls/hr Q24H IVPB Last administered on 11/06/16 21:09; Admin Dose 200 MLS/HR; Start 10/26/16 at 21:00 Sodium Biphosphate/ Sodium Phosphate (Fleet Enema) 133 ml DAILY PRN [place] CONSTIPATION Last administered on 10/26/16 18:33; Admin Dose 133 ML; Start at 18:00 Naloxone HCl (Narcan) 0.2 mg Q2M PRN IV RR 8 BREATHS/MIN OR LESS; Start at 13:00 Oxycodone/ Acetaminophen (Percocet (5/ 325)) 2 tab Q4H PRN PO PAIN Last administered on 11/07/16 03:08; Admin Dose 2 TAB; Start 10/28/16 at 15:00 Insulin Glargine (Lantus) 4 unit DAILY@20 SC Last administered on 11/06/16 21: 17; Admin Dose 4 UNIT; Start 10/29/16 at 20:00 Benazepril HCl (Lotensin) 10 mg BID PO Last administered on 11/07/16 08:34; Admin Dose 10 MG; Start 10/29/16 at 21:00 Nitroglycerin (Nitroglycerin (Sl Tab) 0.4 Mg) 1 tab Q5M PRN SL ANGINA Last administered on 11/01/16 21:24; Admin Dose 1 TAB; Start 11/01/16 at 21:30 Nitroglycerin (Nitroglycerin (Sl Tab) 0.4 Mg) 1 tab Q5M PRN SL CHEST PAIN; Start 11/01/16 at 22:30 Amlodipine Besylate (Norvasc) 5 mg DAILY PO Last administered on 11/07/16 08:34 ; Admin Dose 5 MG; Start 11/04/16 at 09:00 Hydromorphone HCl (Dilaudid) 2 mg Q2H PRN IV PAIN Last administered on 09:49; Admin Dose 2 MG; Start 11/03/16 at 19:30 Apixaban (Eliquis) 2.5 mg BID PO Last administered on 11/07/16 08:34; Admin Dose 2.5 MG; Start 11/05/16 at 11:30 Docusate Sodium (Colace) 100 mg DAILY PO Last administered on 11/07/16 14:40; Admin Dose 100 MG; Start 11/07/16 at 14:30 OZZIE HERRERA MD Nov 07, 2016 15:02
--- NOTE | 2016-11-07 16:25 | CONS ---
Date/Time of Note Date/Time of Note DATE: 11/07/16 TIME: 16:23 Consult Date/Type/Reason Admit Date/Time Oct 18, 2016 at 16:52 Initial Consult Date 11/04/16 Type of Consultation: Pulm Ordering Provider: OZZIE HERRERA MD Subjective No events. Objective Vital Signs Date Time Temp Pulse Resp B/P Pulse Ox O2 Delivery O2 Flow Rate FiO2 11/07/16 16:20 68 11/07/16 15:18 98.0 18 142/63 96 11/07/16 01:07 21 11/06/16 17:39 2.0 11/05/16 20:25 Nasal Cannula Intake and Output 11/06/16 11/06/16 11/07/16 15:00 23:00 07:00 Intake Total 750 ml 240 ml Output Total 250 ml Balance 500 ml 240 ml Exam HEENT: Neck supple; no JVD; no LAD CVS: RRR, S1 and S2 CHEST: Clear ABD: Soft, NT, + BS EXT: No c/c/ + RLE gangrene Results/Medications Result Diagram: 11/07/16 0535 11/07/16 0535 Results 24 hrs Laboratory Tests Test 11/06/16 16:48 11/06/16 21:12 11/07/16 05:35 11/07/16 07:35 Bedside Glucose 111 168 102 White Blood Count 15.2 H Red Blood Count 2.71 L Hemoglobin 8.4 L Hematocrit 26.5 L Mean Corpuscular Volume 97.8 Mean Corpuscular Hemoglobin 31.0 Mean Corpuscular Hemoglobin Concent 31.7 L Red Cell Distribution Width 18.5 H Platelet Count 339 Mean Platelet Volume 12.0 H Neutrophils % 72.4 Lymphocytes % 15.9 Monocytes % 9.6 Eosinophils % 0.9 Basophils % 0.1 Nucleated Red Blood Cells % 0.0 Neutrophils # 11.0 H Lymphocytes # 2.4 Monocytes # 1.5 H Eosinophils # 0.1 Basophils # 0.0 Nucleated Red Blood Cells # 0.0 Sodium Level 132 L Potassium Level 5.3 H Chloride Level 93 L Carbon Dioxide Level 21 Anion Gap 23 H Blood Urea Nitrogen 77 H Creatinine 8.60 H Glucose Level 101 # Calcium Level 7.8 L Test 11/07/16 12:59 Bedside Glucose 211 Medications Current Medications Metoprolol Tartrate (Lopressor) 25 mg BID PO Last administered on 11/07/16 08: 33; Admin Dose 25 MG; Start 10/18/16 at 19:21 Hydralazine HCl (Apresoline) 10 mg Q4H PRN IV SBP>150 mm Hg Last administered on 10/27/16 20:38; Admin Dose 10 MG; Start 10/18/16 at 20:00 Albuterol (Ventolin Hfa) 2 puff Q8 INH Last administered on 11/07/16 14:40; Admin Dose 2 PUFF; Start 10/18/16 at 22:30 Famotidine (Pepcid) 20 mg DAILY PO Last administered on 11/07/16 08:34; Admin Dose 20 MG; Start 10/19/16 at 09:00 Ondansetron HCl (Zofran Inj) 4 mg Q6H PRN IV NAUSEA AND/OR VOMITING; Start at 22:30 Acetaminophen (Tylenol Tab) 650 mg Q6H PRN PO PAIN LEVEL 1-3 OR FEVER Last administered on 11/01/16 02:36; Admin Dose 650 MG; Start 10/18/16 at 22:30 Docusate Sodium (Colace) 100 mg Q12H PRN PO CONSTIPATION Last administered on 18:01; Admin Dose 100 MG; Start 10/18/16 at 22:30 Bisacodyl (Dulcolax Supp) 10 mg DAILY PRN [place] CONSTIPATION Last administered on 10/26/16 07:04; Admin Dose 10 MG; Start 10/18/16 at 22:30 Diagnostic Test (Pha) (Accucheck) 1 ea 02 XX Last administered on 10/27/16 02: 31; Admin Dose 1 EA; Start 10/19/16 at 02:00 Miscellaneous Information 1 ea NOTE XX ; Start 10/18/16 at 22:30 Glucose (Glutose) 15 gm Q15M PRN PO DECREASED GLUCOSE; Start 10/18/16 at 22:30 Glucose (Glutose) 22.5 gm Q15M PRN PO DECREASED GLUCOSE; Start 10/18/16 at 22: 30 Dextrose (D50w Syringe) 25 ml Q15M PRN IV DECREASED GLUCOSE; Start 10/18/16 at 22:30 Dextrose (D50w Syringe) 50 ml Q15M PRN IV DECREASED GLUCOSE Last administered on 10/27/16 09:35; Admin Dose 50 ML; Start 10/18/16 at 22:30 Glucagon (Glucagen) 1 mg Q15M PRN IM DECREASED GLUCOSE; Start 10/18/16 at 22:30 Glucose (Glutose) 15 gm Q15M PRN BUCCAL DECREASED GLUCOSE; Start 10/18/16 at 22 :30 Linezolid (Zyvox) 600 mg BID PO Last administered on 11/07/16 08:34; Admin Dose 600 MG; Start 10/20/16 at 12:15 Aspirin (Halfprin) 81 mg DAILY PO Last administered on 11/07/16 08:34; Admin Dose 81 MG; Start 10/22/16 at 09:00 Lactobacillus Acidoph/Bulgaricus (Floranex) 1 tab BID PO Last administered on 08:33; Admin Dose 1 TAB; Start 10/22/16 at 21:00 Senna/Docusate Sodium (Senokot-S) 2 tab HS PO Last administered on 11/06/16 21: 05; Admin Dose 2 TAB; Start 10/22/16 at 21:00 Lactulose (Enulose) 20 gm TID PRN PO CONSTIPATION Last administered on 13:32; Admin Dose 20 GM; Start 10/23/16 at 17:30 Clonidine HCl 1 patch 1 patch Q7D TRANSDERM Last administered on 11/07/16 08:34 ; Admin Dose 1 PATCH; Start 10/24/16 at 09:00 Meropenem (Merrem 500 Mg/ 100 ml (Pmx)) 100 ml @ 200 mls/hr Q24H IVPB Last administered on 11/06/16 21:09; Admin Dose 200 MLS/HR; Start 10/26/16 at 21:00 Sodium Biphosphate/ Sodium Phosphate (Fleet Enema) 133 ml DAILY PRN [place] CONSTIPATION Last administered on 10/26/16 18:33; Admin Dose 133 ML; Start at 18:00 Naloxone HCl (Narcan) 0.2 mg Q2M PRN IV RR 8 BREATHS/MIN OR LESS; Start at 13:00 Oxycodone/ Acetaminophen (Percocet (5/ 325)) 2 tab Q4H PRN PO PAIN Last administered on 11/07/16 03:08; Admin Dose 2 TAB; Start 10/28/16 at 15:00 Insulin Glargine (Lantus) 4 unit DAILY@20 SC Last administered on 11/06/16 21: 17; Admin Dose 4 UNIT; Start 10/29/16 at 20:00 Benazepril HCl (Lotensin) 10 mg BID PO Last administered on 11/07/16 08:34; Admin Dose 10 MG; Start 10/29/16 at 21:00 Nitroglycerin (Nitroglycerin (Sl Tab) 0.4 Mg) 1 tab Q5M PRN SL ANGINA Last administered on 11/01/16 21:24; Admin Dose 1 TAB; Start 11/01/16 at 21:30 Nitroglycerin (Nitroglycerin (Sl Tab) 0.4 Mg) 1 tab Q5M PRN SL CHEST PAIN; Start 11/01/16 at 22:30 Amlodipine Besylate (Norvasc) 5 mg DAILY PO Last administered on 11/07/16 08:34 ; Admin Dose 5 MG; Start 11/04/16 at 09:00 Hydromorphone HCl (Dilaudid) 2 mg Q2H PRN IV PAIN Last administered on 09:49; Admin Dose 2 MG; Start 11/03/16 at 19:30 Apixaban (Eliquis) 2.5 mg BID PO Last administered on 11/07/16 08:34; Admin Dose 2.5 MG; Start 11/05/16 at 11:30 Docusate Sodium (Colace) 100 mg DAILY PO Last administered on 11/07/16 14:40; Admin Dose 100 MG; Start 11/07/16 at 14:30 Assessment/Plan Additional Assessment/Plan IMP: 1. s/p Hypoxemic respiratory failure secondary to volume overload with compressive atelectasis 2. LE gangrene 3. Acute pulmonary embolism right lower lobe 4. Incidental solitary nodule found on chest CT 5. Peripheral vascular disease with lower extremity wounds 6. End-stage renal failure on hemodialysis RECS: 1. Anticoagulation 2. De-escalate abx 3. Mobilize OOB/PT/OT 4. HD/UF 5. ICS/CPT prn GAYLA FINNEY MD Nov 07, 2016 16:25
--- NOTE | 2016-11-07 20:06 | CONS ---
Date/Time of Note Date/Time of Note DATE: 11/07/16 TIME: 20:04 Assessment/Plan Assessment/Plan Chief Complaint/Hosp Course ID PROGRESS NOTE CURRENT ABX=> Zyvox, Merrem s/p Flagyl DC'd 11/05/16 s/p Zosyn/Ceftriaxone-> DC 24H INTERVAL SUMMARY POD #4 -> s/p 11/03/16 LEFT AKA * Clinically stable -- lethargy persists - he prefers to rest with eyes close sleeping on and off =>WBC down, no fevers * MICROBIOLOGY: Culture Leg (+)E.Coli/ESBL on Merrem * INDWELLINGS: Right IJ Perm-A-Cath. PHYSICAL EXAMINATION: GENERAL:VSS, NAD HEENT: Unremarkable NECK: Supple, trachea midline. CHEST: Rise symmetrical, without dyspnea on observation HEART: Pulse RRR ABDOMEN: soft EXTREMITIES: Warm -> DSG intact ID ASSESSMENT 65 yo M admit with: 1. Severe LLEXT gangrene w/ PAD-> Hx of angio/bypass. Failed redo bypass. * POD #4 -> s/p 11/03/16 LEFT AKA 2. End-stage renal disease=> HD * PermCath DC'd w/new Femoral HD Cath placed 11/04/16 3. Anemia of chronic disease. 4. DM 5. HTN 6. Systolic HF w/EF of 40% to 45% 7. ?ASHD (-) MRSA Nares INVASIVES: PIV, New FEM HD Line 11/04/16 ABX ALLERGY: VANCO IV CURRENT ABX: Zyvox, Merrem s/p Zosyn/Flagy Ceftriaxone -> DC 10/23/16 ID RECOMMENDATIONS 1. Continue current ABX 2. Watch for opportunistic infx such as yeast and/or C.Diff 3. Observe response to over the weekend on ABX -> Reassess by ID team next week . Problems: Consultation Date/Type/Reason Admit Date/Time Oct 18, 2016 at 16:52 Type of Consultation: ID Referring Provider: OZZIE HERRERA MD Exam/Review of Systems Vital Signs Vitals Vital Signs Date Time Temp Pulse Resp B/P Pulse Ox O2 Delivery O2 Flow Rate FiO2 11/07/16 16:20 68 11/07/16 15:18 98.0 18 142/63 96 11/07/16 01:07 21 11/06/16 17:39 2.0 11/05/16 20:25 Nasal Cannula Intake and Output 11/06/16 11/06/16 11/07/16 15:00 23:00 07:00 Intake Total 750 ml 240 ml Output Total 250 ml Balance 500 ml 240 ml Results Result Diagram: 11/07/16 0535 11/07/16 0535 Results 24 hrs Laboratory Tests Test 11/06/16 21:12 11/07/16 05:35 11/07/16 07:35 11/07/16 12:59 Bedside Glucose 168 102 211 White Blood Count 15.2 H Red Blood Count 2.71 L Hemoglobin 8.4 L Hematocrit 26.5 L Mean Corpuscular Volume 97.8 Mean Corpuscular Hemoglobin 31.0 Mean Corpuscular Hemoglobin Concent 31.7 L Red Cell Distribution Width 18.5 H Platelet Count 339 Mean Platelet Volume 12.0 H Neutrophils % 72.4 Lymphocytes % 15.9 Monocytes % 9.6 Eosinophils % 0.9 Basophils % 0.1 Nucleated Red Blood Cells % 0.0 Neutrophils # 11.0 H Lymphocytes # 2.4 Monocytes # 1.5 H Eosinophils # 0.1 Basophils # 0.0 Nucleated Red Blood Cells # 0.0 Sodium Level 132 L Potassium Level 5.3 H Chloride Level 93 L Carbon Dioxide Level 21 Anion Gap 23 H Blood Urea Nitrogen 77 H Creatinine 8.60 H Glucose Level 101 # Calcium Level 7.8 L Test 11/07/16 16:27 Bedside Glucose 92 Medications Medications Current Medications Metoprolol Tartrate (Lopressor) 25 mg BID PO Last administered on 11/07/16 08: 33; Admin Dose 25 MG; Start 10/18/16 at 19:21 Hydralazine HCl (Apresoline) 10 mg Q4H PRN IV SBP>150 mm Hg Last administered on 10/27/16 20:38; Admin Dose 10 MG; Start 10/18/16 at 20:00 Albuterol (Ventolin Hfa) 2 puff Q8 INH Last administered on 11/07/16 14:40; Admin Dose 2 PUFF; Start 10/18/16 at 22:30 Famotidine (Pepcid) 20 mg DAILY PO Last administered on 11/07/16 08:34; Admin Dose 20 MG; Start 10/19/16 at 09:00 Ondansetron HCl (Zofran Inj) 4 mg Q6H PRN IV NAUSEA AND/OR VOMITING; Start at 22:30 Acetaminophen (Tylenol Tab) 650 mg Q6H PRN PO PAIN LEVEL 1-3 OR FEVER Last administered on 11/01/16 02:36; Admin Dose 650 MG; Start 10/18/16 at 22:30 Docusate Sodium (Colace) 100 mg Q12H PRN PO CONSTIPATION Last administered on 18:01; Admin Dose 100 MG; Start 10/18/16 at 22:30 Bisacodyl (Dulcolax Supp) 10 mg DAILY PRN [place] CONSTIPATION Last administered on 10/26/16 07:04; Admin Dose 10 MG; Start 10/18/16 at 22:30 Diagnostic Test (Pha) (Accucheck) 1 ea 02 XX Last administered on 10/27/16 02: 31; Admin Dose 1 EA; Start 10/19/16 at 02:00 Miscellaneous Information 1 ea NOTE XX ; Start 10/18/16 at 22:30 Glucose (Glutose) 15 gm Q15M PRN PO DECREASED GLUCOSE; Start 10/18/16 at 22:30 Glucose (Glutose) 22.5 gm Q15M PRN PO DECREASED GLUCOSE; Start 10/18/16 at 22: 30 Dextrose (D50w Syringe) 25 ml Q15M PRN IV DECREASED GLUCOSE; Start 10/18/16 at 22:30 Dextrose (D50w Syringe) 50 ml Q15M PRN IV DECREASED GLUCOSE Last administered on 10/27/16 09:35; Admin Dose 50 ML; Start 10/18/16 at 22:30 Glucagon (Glucagen) 1 mg Q15M PRN IM DECREASED GLUCOSE; Start 10/18/16 at 22:30 Glucose (Glutose) 15 gm Q15M PRN BUCCAL DECREASED GLUCOSE; Start 10/18/16 at 22 :30 Linezolid (Zyvox) 600 mg BID PO Last administered on 11/07/16 08:34; Admin Dose 600 MG; Start 10/20/16 at 12:15 Aspirin (Halfprin) 81 mg DAILY PO Last administered on 11/07/16 08:34; Admin Dose 81 MG; Start 10/22/16 at 09:00 Lactobacillus Acidoph/Bulgaricus (Floranex) 1 tab BID PO Last administered on 08:33; Admin Dose 1 TAB; Start 10/22/16 at 21:00 Senna/Docusate Sodium (Senokot-S) 2 tab HS PO Last administered on 11/06/16 21: 05; Admin Dose 2 TAB; Start 10/22/16 at 21:00 Lactulose (Enulose) 20 gm TID PRN PO CONSTIPATION Last administered on 13:32; Admin Dose 20 GM; Start 10/23/16 at 17:30 Clonidine HCl 1 patch 1 patch Q7D TRANSDERM Last administered on 11/07/16 08:34 ; Admin Dose 1 PATCH; Start 10/24/16 at 09:00 Meropenem (Merrem 500 Mg/ 100 ml (Pmx)) 100 ml @ 200 mls/hr Q24H IVPB Last administered on 11/06/16 21:09; Admin Dose 200 MLS/HR; Start 10/26/16 at 21:00 Sodium Biphosphate/ Sodium Phosphate (Fleet Enema) 133 ml DAILY PRN [place] CONSTIPATION Last administered on 10/26/16 18:33; Admin Dose 133 ML; Start at 18:00 Naloxone HCl (Narcan) 0.2 mg Q2M PRN IV RR 8 BREATHS/MIN OR LESS; Start at 13:00 Oxycodone/ Acetaminophen (Percocet (5/ 325)) 2 tab Q4H PRN PO PAIN Last administered on 11/07/16 03:08; Admin Dose 2 TAB; Start 10/28/16 at 15:00 Insulin Glargine (Lantus) 4 unit DAILY@20 SC Last administered on 11/06/16 21: 17; Admin Dose 4 UNIT; Start 10/29/16 at 20:00 Benazepril HCl (Lotensin) 10 mg BID PO Last administered on 11/07/16 08:34; Admin Dose 10 MG; Start 10/29/16 at 21:00 Nitroglycerin (Nitroglycerin (Sl Tab) 0.4 Mg) 1 tab Q5M PRN SL ANGINA Last administered on 11/01/16 21:24; Admin Dose 1 TAB; Start 11/01/16 at 21:30 Nitroglycerin (Nitroglycerin (Sl Tab) 0.4 Mg) 1 tab Q5M PRN SL CHEST PAIN; Start 11/01/16 at 22:30 Amlodipine Besylate (Norvasc) 5 mg DAILY PO Last administered on 11/07/16 08:34 ; Admin Dose 5 MG; Start 11/04/16 at 09:00 Hydromorphone HCl (Dilaudid) 2 mg Q2H PRN IV PAIN Last administered on 16:28; Admin Dose 2 MG; Start 11/03/16 at 19:30 Apixaban (Eliquis) 2.5 mg BID PO Last administered on 11/07/16 08:34; Admin Dose 2.5 MG; Start 11/05/16 at 11:30 Docusate Sodium (Colace) 100 mg DAILY PO Last administered on 11/07/16 14:40; Admin Dose 100 MG; Start 11/07/16 at 14:30 CARLOS THAKUR NP Nov 07, 2016 20:06
[2016-11-07] MEDS: SENNA/DOCUSATE NA (8.6MG/50MG) TAB PO SCH (20:47)
[2016-11-07] MEDS: INSULIN GLARGINE [LANtus] 3 ML PEN SC SCH (20:50)
[2016-11-07] MEDS: MEROPENEM 500 MG/100 ML (PMX) 100 ML IVPB SCH (20:52)
[2016-11-08] VITALS (17 sets, daily range): BP systolic 125–143; BP diastolic 62–75; PULSE 61–77; RESP 18–20
[2016-11-08] MEDS: ACCU-CHEK XX SCH (02:00)
[2016-11-08] MEDS: HYDROmorphONE 2 MG/ML SYG IV PRN (05:54)
[2016-11-08] MEDS: ALBUTEROL HFA 8 GM INHALER INH SCH ×3 (06:00→22:54)
[2016-11-08 06:28] LABS: BASOPHILS % 0.3 % (0.0-2.0); EOSINOPHILS # 0.1 10^3/ul (0.0-0.5); EOSINOPHILS % 0.8 % (0.0-7.0); HEMATOCRIT 26.9 % (42.0-52.0); HEMOGLOBIN 8.3 g/dl (14.0-18.0); LYMPHOCYTES # 1.6 10^3/ul (0.8-2.9); LYMPHOCYTES % 13.6 % (15.0-51.0); MEAN CORPUSCULAR HEMOGLOBIN 30.9 pg (29.0-33.0); MEAN CORPUSCULAR HGB CONC 30.9 g/dl (32.0-37.0); MEAN PLATELET VOLUME 11.5 fl (7.4-10.4); MONOCYTE # 1.1 10^3/ul (0.3-0.9); MONOCYTES % 9.5 % (0.0-11.0); NEUTROPHIL # 8.6 10^3/ul (1.6-7.5); NEUTROPHILS % 74.9 % (39.0-77.0); PLATELET COUNT 338 10^3/UL (140-415); RED BLOOD COUNT 2.69 10^6/ul (4.70-6.10); RED CELL DISTRIBUTION WIDTH 18.6 % (11.5-14.5); WHITE BLOOD COUNT 11.4 10^3/ul (4.8-10.8)
[2016-11-08 06:29] LABS: ADD SCAN DIFF NO
[2016-11-08 06:44] LABS: INR 1.82; PROTIME 21.2 Sec (12.2-14.2); PT RATIO 1.7
[2016-11-08 06:50] LABS: POTASSIUM 4.9 mmol/L (3.5-5.1)
[2016-11-08 06:52] LABS: CREATININE 7.31 mg/dl (0.61-1.24)
[2016-11-08 06:53] LABS: CALCIUM 7.8 mg/dl (8.4-10.2)
[2016-11-08] MEDS: INSULIN ASPART [NOVOLOG] 3 ML PEN SC SCH ×4 (07:55→21:00)
[2016-11-08] MEDS: OXYCODONE/ACETAMINOPHEN (5/325) TAB PO PRN ×2 (08:43→17:19)
[2016-11-08] MEDS: APIXABAN 5 MG TABLET PO SCH ×2 (08:43→21:15)
[2016-11-08] MEDS: DOCUSATE SODIUM 100 MG CAP PO SCH (08:43)
[2016-11-08] MEDS: FAMOTIDINE 20 MG TAB PO SCH (08:43)
[2016-11-08] MEDS: ZYVOX 600 MG TAB PO SCH ×2 (08:43→21:16)
[2016-11-08] MEDS: ASPIRIN (EC) 81 MG TAB PO SCH (08:43)
[2016-11-08] MEDS: LACTOBACILLUS CHEW TAB PO SCH ×2 (08:43→22:53)
[2016-11-08] MEDS: METOPROLOL 25 MG TAB PO SCH ×2 (08:44→21:16)
[2016-11-08] MEDS: BENAZEPRIL 10 MG TAB PO SCH ×2 (08:44→21:16)
[2016-11-08] MEDS: AMLODIPINE 5 MG TAB PO SCH (08:44)
--- NOTE | 2016-11-08 12:03 | CONS ---
Date/Time of Note Date/Time of Note DATE: 11/08/16 TIME: 12:02 Assessment/Plan Assessment/Plan Chief Complaint/Hosp Course IMPRESSION: 1. Preoperative evaluation prior to lower extremity vascular surgery, possible amputation.-Now s/p LLE vascular surgery with failed graft and now Post-op s/p LE amputation 2. Hypertension-Well controlled 3. Abnormal electrocardiogram, assess for acute coronary syndrome. 4. Dyslipidemia. 5. Peripheral arterial disease, s/p LE amputation 6. Lower extremity nonhealing ulceration of the toe. 7. PNA 8. End-stage renal disease on hemodialysis. 9. Anemia. 10. Leukocytosis. 11. Cardiomyopathy-LVEF 40-45%-negative trop x 3 since admit-mild CHF by cxr systolic acute on chronic 12. CHest diri-Fnvm-eg now resolved. Trop negative x 2 post epsiode/EKG 10/29 with lateral TWI(no sig changes)-no recurrence 14. PE Recc: -Tele -Continue current ACEI/BB and follow BP closely -Local wound care/abx's and f/u cx data -Pain control -Continue ASA -HD for volume removal -Continue eliquis Problems: Consultation Date/Type/Reason Admit Date/Time Oct 18, 2016 at 16:52 Initial Consult Date 10/19/2016 Type of Consultation: Cardiology Reason for Consultation Cardiomyopathy Referring Provider: OZZIE HERRERA MD Exam/Review of Systems Vital Signs Vitals Vital Signs Date Time Temp Pulse Resp B/P Pulse Ox O2 Delivery O2 Flow Rate FiO2 11/08/16 11:52 98.6 76 18 129/63 97 11/07/16 01:07 21 11/06/16 17:39 2.0 11/05/16 20:25 Nasal Cannula Intake and Output 11/07/16 11/07/16 11/08/16 14:59 22:59 06:59 Intake Total 400 ml 800 ml 300 ml Output Total 3400 ml 200 ml 100 ml Balance -3000 ml 600 ml 200 ml Exam Review of Systems: CONSTITUTIONAL: No fevers, chills. PULMONARY: No sob CARDIOVASCULAR: No chest pain/palpitations GASTROINTESTINAL: No nausea/vomiting. GENITOURINARY: No hematuria/dysuria. MUSCULOSKELETAL: Mild pain in L leg PSYCHIATRIC: The patient denies depression. NEUROLOGIC: No weakness Constitutional: alert, oriented Psych: no complaints Head: normocephalic ENMT: mucosa pink and moist Neck: jvd (9 cm water), supple Respiratory: diminished breath sounds (at bases/B) Cardiovascular: regular rate and rhythm Gastrointestinal: non-tender, soft Musculoskeletal: muscle tone (normal), other (s/p LLE amputation) Extremities: edema (none) Neurological: other (No focal deficits) Results Result Diagram: 11/08/16 0600 11/08/16 0600 Results 24 hrs Laboratory Tests Test 11/07/16 12:59 11/07/16 16:27 11/07/16 20:43 11/08/16 02:40 Bedside Glucose 211 92 175 110 Test 11/08/16 06:00 11/08/16 08:26 White Blood Count 11.4 #H Red Blood Count 2.69 L Hemoglobin 8.3 L Hematocrit 26.9 L Mean Corpuscular Volume 100.0 Mean Corpuscular Hemoglobin 30.9 Mean Corpuscular Hemoglobin Concent 30.9 L Red Cell Distribution Width 18.6 H Platelet Count 338 Mean Platelet Volume 11.5 H Neutrophils % 74.9 Lymphocytes % 13.6 L Monocytes % 9.5 Eosinophils % 0.8 Basophils % 0.3 Nucleated Red Blood Cells % 0.0 Neutrophils # 8.6 H Lymphocytes # 1.6 Monocytes # 1.1 H Eosinophils # 0.1 Basophils # 0.0 Nucleated Red Blood Cells # 0.0 Prothrombin Time 21.2 #H Prothrombin Time Ratio 1.7 INR International Normalized Ratio 1.82 Sodium Level 137 Potassium Level 4.9 Chloride Level 101 Carbon Dioxide Level 21 Anion Gap 20 H Blood Urea Nitrogen 63 H Creatinine 7.31 H Glucose Level 104 Calcium Level 7.8 L Bedside Glucose 91 Medications Medications Current Medications Metoprolol Tartrate (Lopressor) 25 mg BID PO Last administered on 11/08/16 08: 44; Admin Dose 25 MG; Start 10/18/16 at 19:21 Hydralazine HCl (Apresoline) 10 mg Q4H PRN IV SBP>150 mm Hg Last administered on 10/27/16 20:38; Admin Dose 10 MG; Start 10/18/16 at 20:00 Albuterol (Ventolin Hfa) 2 puff Q8 INH Last administered on 11/08/16 06:00; Admin Dose 2 PUFF; Start 10/18/16 at 22:30 Famotidine (Pepcid) 20 mg DAILY PO Last administered on 11/08/16 08:43; Admin Dose 20 MG; Start 10/19/16 at 09:00 Ondansetron HCl (Zofran Inj) 4 mg Q6H PRN IV NAUSEA AND/OR VOMITING; Start at 22:30 Acetaminophen (Tylenol Tab) 650 mg Q6H PRN PO PAIN LEVEL 1-3 OR FEVER Last administered on 11/01/16 02:36; Admin Dose 650 MG; Start 10/18/16 at 22:30 Docusate Sodium (Colace) 100 mg Q12H PRN PO CONSTIPATION Last administered on 18:01; Admin Dose 100 MG; Start 10/18/16 at 22:30 Bisacodyl (Dulcolax Supp) 10 mg DAILY PRN [place] CONSTIPATION Last administered on 10/26/16 07:04; Admin Dose 10 MG; Start 10/18/16 at 22:30 Diagnostic Test (Pha) (Accucheck) 1 ea 02 XX Last administered on 10/27/16 02: 31; Admin Dose 1 EA; Start 10/19/16 at 02:00 Miscellaneous Information 1 ea NOTE XX ; Start 10/18/16 at 22:30 Glucose (Glutose) 15 gm Q15M PRN PO DECREASED GLUCOSE; Start 10/18/16 at 22:30 Glucose (Glutose) 22.5 gm Q15M PRN PO DECREASED GLUCOSE; Start 10/18/16 at 22: 30 Dextrose (D50w Syringe) 25 ml Q15M PRN IV DECREASED GLUCOSE; Start 10/18/16 at 22:30 Dextrose (D50w Syringe) 50 ml Q15M PRN IV DECREASED GLUCOSE Last administered on 10/27/16 09:35; Admin Dose 50 ML; Start 10/18/16 at 22:30 Glucagon (Glucagen) 1 mg Q15M PRN IM DECREASED GLUCOSE; Start 10/18/16 at 22:30 Glucose (Glutose) 15 gm Q15M PRN BUCCAL DECREASED GLUCOSE; Start 10/18/16 at 22 :30 Linezolid (Zyvox) 600 mg BID PO Last administered on 11/08/16 08:43; Admin Dose 600 MG; Start 10/20/16 at 12:15 Aspirin (Halfprin) 81 mg DAILY PO Last administered on 11/08/16 08:43; Admin Dose 81 MG; Start 10/22/16 at 09:00 Lactobacillus Acidoph/Bulgaricus (Floranex) 1 tab BID PO Last administered on 08:43; Admin Dose 1 TAB; Start 10/22/16 at 21:00 Senna/Docusate Sodium (Senokot-S) 2 tab HS PO Last administered on 11/07/16 20: 47; Admin Dose 2 TAB; Start 10/22/16 at 21:00 Lactulose (Enulose) 20 gm TID PRN PO CONSTIPATION Last administered on 13:32; Admin Dose 20 GM; Start 10/23/16 at 17:30 Clonidine HCl 1 patch 1 patch Q7D TRANSDERM Last administered on 11/07/16 08:34 ; Admin Dose 1 PATCH; Start 10/24/16 at 09:00 Meropenem (Merrem 500 Mg/ 100 ml (Pmx)) 100 ml @ 200 mls/hr Q24H IVPB Last administered on 11/07/16 20:52; Admin Dose 200 MLS/HR; Start 10/26/16 at 21:00 Sodium Biphosphate/ Sodium Phosphate (Fleet Enema) 133 ml DAILY PRN [place] CONSTIPATION Last administered on 10/26/16 18:33; Admin Dose 133 ML; Start at 18:00 Naloxone HCl (Narcan) 0.2 mg Q2M PRN IV RR 8 BREATHS/MIN OR LESS; Start at 13:00 Oxycodone/ Acetaminophen (Percocet (5/ 325)) 2 tab Q4H PRN PO PAIN Last administered on 11/08/16 08:43; Admin Dose 2 TAB; Start 10/28/16 at 15:00 Insulin Glargine (Lantus) 4 unit DAILY@20 SC Last administered on 11/07/16 20: 50; Admin Dose 4 UNIT; Start 10/29/16 at 20:00 Benazepril HCl (Lotensin) 10 mg BID PO Last administered on 11/08/16 08:44; Admin Dose 10 MG; Start 10/29/16 at 21:00 Nitroglycerin (Nitroglycerin (Sl Tab) 0.4 Mg) 1 tab Q5M PRN SL ANGINA Last administered on 11/01/16 21:24; Admin Dose 1 TAB; Start 11/01/16 at 21:30 Nitroglycerin (Nitroglycerin (Sl Tab) 0.4 Mg) 1 tab Q5M PRN SL CHEST PAIN; Start 11/01/16 at 22:30 Amlodipine Besylate (Norvasc) 5 mg DAILY PO Last administered on 11/08/16 08: 44; Admin Dose 5 MG; Start 11/04/16 at 09:00 Hydromorphone HCl (Dilaudid) 2 mg Q2H PRN IV PAIN Last administered on 05:54; Admin Dose 2 MG; Start 11/03/16 at 19:30 Apixaban (Eliquis) 2.5 mg BID PO Last administered on 11/07/16 20:47; Admin Dose 2.5 MG; Start 11/05/16 at 11:30 Docusate Sodium (Colace) 100 mg DAILY PO Last administered on 11/08/16 08:43; Admin Dose 100 MG; Start 11/07/16 at 14:30 KAYLEE WILSON Nov 08, 2016 12:03
[2016-11-08] MEDS ORDERED: MIDAZOLAM 1 MG/ML 2 ML INJ ONE (13:57)
[2016-11-08] MEDS ORDERED: SOD CHLORIDE 0.9% 1,000 ML ONE (13:57)
[2016-11-08] MEDS ORDERED: FENTAnyl 50 MCG/ML VIAL ONE (13:57)
[2016-11-08] MEDS ORDERED: HEPARIN 1000 UNITS/ML 10 ML INJ ONE (13:57)
[2016-11-08] MEDS ORDERED: LIDOCAINE 1% (MDV) 20 ML INJ ONE (14:13)
--- NOTE | 2016-11-08 14:23 | PN ---
Date/Time of Note Date/Time of Note DATE: 11/08/16 TIME: 14:22 Assessment/Plan VTE Prophylaxis VTE Prophylaxis Intervention: other Lines/Catheters IV [facility] Urinary Cath still in place: No Assessment/Plan Chief Complaint/Hosp Course Assessment and plan 1. 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 Patient does have history of bypass on area that had thrombosed. 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 Also noted with right lower extremity gangrene. 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 Continue with analgesics. wound care per vascular surgeon Pain management physician consulted for further assistance. Await recommendations. cont with abx per ID (ESBL in wound) 2. ESRD on dialysis. Continue on HD. Follow-up with nephrology recommendations 3. Hypertension. Continue on antihypertensives and adjust needed. Stable 4. Anemia of chronic disease. H&H stable. Monitor for now. 5. History of diabetes. Continue on insulin regimen. Will adjust as needed 6. CAD. Continue on antiplatelet therapy 7. Peripheral vascular disease. Continue aggressive medical management, vascular surgeon has been consulted 8. Acute respiratory distress. Likely secondary to fluid overload. Resolved status post urgent hemodialysis 9. Leukocytosis. Continue IV antibiotics, infectious disease doctor has been consulted 10. Pulmonary embolism. Continue heparin and transitioned to oral anticoagulation as per vascular surgeon Disposition and plan:. Continue with life skills consultant recommendations. cont with analgesics Plan to discharge home tomorrow status post Usama catheter placement Problems: Subjective 24 Hr Interval Summary Free Text/Dictation Patient denies of any chest pain or shortness of breath Denies abdominal discomfort No nausea vomiting diarrhea Exam/Review of Systems Vital Signs Vitals Vital Signs Date Time Temp Pulse Resp B/P Pulse Ox O2 Delivery O2 Flow Rate FiO2 11/08/16 12:00 67 11/08/16 11:52 98.6 18 129/63 97 11/07/16 01:07 21 11/06/16 17:39 2.0 11/05/16 20:25 Nasal Cannula Intake and Output 11/07/16 11/07/16 11/08/16 15:00 23:00 07:00 Intake Total 400 ml 800 ml 300 ml Output Total 3400 ml 200 ml 100 ml Balance -3000 ml 600 ml 200 ml Exam General: The patient is well-developed, Not in acute distress. HEENT: Atraumatic, normocephalic. The pupils are equal and round . Neck: Supple with full range of motion. Chest: Normal expansion of the thorax during inspiration Lungs: Clear to auscultation bilaterally Heart: Normal S1-S2, Regular rhythm and rate. Abdomen: Soft , nontender, nondistended , bowel sounds are present. Extremities: Status post left lower extremity AKA, the stump is dry and clean, no evidence of bleeding, no edema no cyanosis Neurologic: Normal mental status,The patient is awake, alert and oriented . Results Result Diagram: 11/08/16 0600 11/08/16 06 Results 24 hrs Laboratory Tests Test 11/07/16 16:27 11/07/16 20:43 11/08/16 02:40 11/08/16 06:00 Bedside Glucose 92 175 110 White Blood Count 11.4 #H Red Blood Count 2.69 L Hemoglobin 8.3 L Hematocrit 26.9 L Mean Corpuscular Volume 100.0 Mean Corpuscular Hemoglobin 30.9 Mean Corpuscular Hemoglobin Concent 30.9 L Red Cell Distribution Width 18.6 H Platelet Count 338 Mean Platelet Volume 11.5 H Neutrophils % 74.9 Lymphocytes % 13.6 L Monocytes % 9.5 Eosinophils % 0.8 Basophils % 0.3 Nucleated Red Blood Cells % 0.0 Neutrophils # 8.6 H Lymphocytes # 1.6 Monocytes # 1.1 H Eosinophils # 0.1 Basophils # 0.0 Nucleated Red Blood Cells # 0.0 Prothrombin Time 21.2 #H Prothrombin Time Ratio 1.7 INR International Normalized Ratio 1.82 Sodium Level 137 Potassium Level 4.9 Chloride Level 101 Carbon Dioxide Level 21 Anion Gap 20 H Blood Urea Nitrogen 63 H Creatinine 7.31 H Glucose Level 104 Calcium Level 7.8 L Test 11/08/16 08:26 11/08/16 12:41 Bedside Glucose 91 131 Medications Medications Current Medications Metoprolol Tartrate (Lopressor) 25 mg BID PO Last administered on 11/08/16 08: 44; Admin Dose 25 MG; Start 10/18/16 at 19:21 Hydralazine HCl (Apresoline) 10 mg Q4H PRN IV SBP>150 mm Hg Last administered on 10/27/16 20:38; Admin Dose 10 MG; Start 10/18/16 at 20:00 Albuterol (Ventolin Hfa) 2 puff Q8 INH Last administered on 11/08/16 06:00; Admin Dose 2 PUFF; Start 10/18/16 at 22:30 Famotidine (Pepcid) 20 mg DAILY PO Last administered on 11/08/16 08:43; Admin Dose 20 MG; Start 10/19/16 at 09:00 Ondansetron HCl (Zofran Inj) 4 mg Q6H PRN IV NAUSEA AND/OR VOMITING; Start at 22:30 Acetaminophen (Tylenol Tab) 650 mg Q6H PRN PO PAIN LEVEL 1-3 OR FEVER Last administered on 11/01/16 02:36; Admin Dose 650 MG; Start 10/18/16 at 22:30 Docusate Sodium (Colace) 100 mg Q12H PRN PO CONSTIPATION Last administered on 18:01; Admin Dose 100 MG; Start 10/18/16 at 22:30 Bisacodyl (Dulcolax Supp) 10 mg DAILY PRN [place] CONSTIPATION Last administered on 10/26/16 07:04; Admin Dose 10 MG; Start 10/18/16 at 22:30 Diagnostic Test (Pha) (Accucheck) 1 ea 02 XX Last administered on 10/27/16 02: 31; Admin Dose 1 EA; Start 10/19/16 at 02:00 Miscellaneous Information 1 ea NOTE XX ; Start 10/18/16 at 22:30 Glucose (Glutose) 15 gm Q15M PRN PO DECREASED GLUCOSE; Start 10/18/16 at 22:30 Glucose (Glutose) 22.5 gm Q15M PRN PO DECREASED GLUCOSE; Start 10/18/16 at 22: 30 Dextrose (D50w Syringe) 25 ml Q15M PRN IV DECREASED GLUCOSE; Start 10/18/16 at 22:30 Dextrose (D50w Syringe) 50 ml Q15M PRN IV DECREASED GLUCOSE Last administered on 10/27/16 09:35; Admin Dose 50 ML; Start 10/18/16 at 22:30 Glucagon (Glucagen) 1 mg Q15M PRN IM DECREASED GLUCOSE; Start 10/18/16 at 22:30 Glucose (Glutose) 15 gm Q15M PRN BUCCAL DECREASED GLUCOSE; Start 10/18/16 at 22 :30 Linezolid (Zyvox) 600 mg BID PO Last administered on 11/08/16 08:43; Admin Dose 600 MG; Start 10/20/16 at 12:15 Aspirin (Halfprin) 81 mg DAILY PO Last administered on 11/08/16 08:43; Admin Dose 81 MG; Start 10/22/16 at 09:00 Lactobacillus Acidoph/Bulgaricus (Floranex) 1 tab BID PO Last administered on 08:43; Admin Dose 1 TAB; Start 10/22/16 at 21:00 Senna/Docusate Sodium (Senokot-S) 2 tab HS PO Last administered on 11/07/16 20: 47; Admin Dose 2 TAB; Start 10/22/16 at 21:00 Lactulose (Enulose) 20 gm TID PRN PO CONSTIPATION Last administered on 13:32; Admin Dose 20 GM; Start 10/23/16 at 17:30 Clonidine HCl 1 patch 1 patch Q7D TRANSDERM Last administered on 11/07/16 08:34 ; Admin Dose 1 PATCH; Start 10/24/16 at 09:00 Meropenem (Merrem 500 Mg/ 100 ml (Pmx)) 100 ml @ 200 mls/hr Q24H IVPB Last administered on 11/07/16 20:52; Admin Dose 200 MLS/HR; Start 10/26/16 at 21:00 Sodium Biphosphate/ Sodium Phosphate (Fleet Enema) 133 ml DAILY PRN [place] CONSTIPATION Last administered on 10/26/16 18:33; Admin Dose 133 ML; Start at 18:00 Naloxone HCl (Narcan) 0.2 mg Q2M PRN IV RR 8 BREATHS/MIN OR LESS; Start at 13:00 Oxycodone/ Acetaminophen (Percocet (5/ 325)) 2 tab Q4H PRN PO PAIN Last administered on 11/08/16 08:43; Admin Dose 2 TAB; Start 10/28/16 at 15:00 Insulin Glargine (Lantus) 4 unit DAILY@20 SC Last administered on 11/07/16 20: 50; Admin Dose 4 UNIT; Start 10/29/16 at 20:00 Benazepril HCl (Lotensin) 10 mg BID PO Last administered on 11/08/16 08:44; Admin Dose 10 MG; Start 10/29/16 at 21:00 Nitroglycerin (Nitroglycerin (Sl Tab) 0.4 Mg) 1 tab Q5M PRN SL ANGINA Last administered on 11/01/16 21:24; Admin Dose 1 TAB; Start 11/01/16 at 21:30 Nitroglycerin (Nitroglycerin (Sl Tab) 0.4 Mg) 1 tab Q5M PRN SL CHEST PAIN; Start 11/01/16 at 22:30 Amlodipine Besylate (Norvasc) 5 mg DAILY PO Last administered on 11/08/16 08: 44; Admin Dose 5 MG; Start 11/04/16 at 09:00 Hydromorphone HCl (Dilaudid) 2 mg Q2H PRN IV PAIN Last administered on 05:54; Admin Dose 2 MG; Start 11/03/16 at 19:30 Apixaban (Eliquis) 2.5 mg BID PO Last administered on 11/07/16 20:47; Admin Dose 2.5 MG; Start 11/05/16 at 11:30 Docusate Sodium (Colace) 100 mg DAILY PO Last administered on 11/08/16 08:43; Admin Dose 100 MG; Start 11/07/16 at 14:30 OZZIE HERRERA MD Nov 08, 2016 14:23
[2016-11-08] MEDS ORDERED: IOHEXOL 300MG/ML 30 ML BTL ONE (15:08)
--- NOTE | 2016-11-08 16:05 | RADRPT ---
PROCEDURE: Ultrasound guidance for placement of needle in right internal jugular vein. CLINICAL INDICATION: Venous access. TECHNIQUE: Prior to the procedure, informed consent was obtained. Risks including bleeding, infection, and pneu mothorax were explained to the patient. The patient understood and was willing to proceed. A procedu ral pause was performed. The patient's name, date of , and procedure to be performed were verif ied. The central line was inserted with all elements of maximal sterile barrier technique. All of th e following were used: head covering, facial mask, sterile gown, sterile gloves, a large sterile she et, hand hygiene, and 2% chlorhexidine for cutaneous antisepsis. The right neck and anterior/super ior chest wall was prepped and draped in usual sterile fashion. Limited sonography of the right neck was then performed. Noted is a patent right internal jugular ve in. Ultrasound images were recorded and stored in the patient's medical record. Following the local injection of Xylocaine, the right internal jugular vein was punctured under sono graphic guidance with a 20-gauge needle through which a 0.018 inch floppy tip guidewire was advanced into the right internal jugular vein. The patient tolerated the procedure well. The remainder of the procedure was performed and dictated under separate cover. COMPARISON: None. FINDINGS: The ultrasound images demonstrate a patent right internal jugular vein. The subsequent images demon strate the needle entering the right internal jugular vein. IMPRESSION: 1. Ultrasound guidance for a needle placement in right internal jugular vein. RPTAT: QQ .Rick Tomlin MD, Date Time Electronically viewed and signed by .Rick Tomlin MD, on 11/08/2016 16:04 .R/
--- NOTE | 2016-11-08 16:11 | RADRPT ---
PROCEDURE: Right internal jugular vein venogram. CLINICAL INDICATION: Attempted placement of right internal jugular vein dialysis catheter. Renal failure. TECHNIQUE: Ultrasound was used to access the right internal jugular vein with a 21-gauge needle th rough which a 0.08 inch guidewire was advanced. A 5-Greek micropuncture sheath was then advanced ov er the guide wire and the dilator was removed. 14 images of the right neck and right-sided chest we re obtained during injection of 7 ml of Omnipaque-300 directly into the right internal jugular vein through the 5-Greek sheath. 0.6 minutes of fluoroscopy time was used. COMPARISON: No prior study is available for comparison. FINDINGS: Images demonstrate the patent right internal jugular vein in the neck. The right internal jugular v ein is completely occluded at the thoracic inlet and multiple collateral veins are noted. Collatera l veins opacify the left brachiocephalic vein and the superior vena cava which both appear normal. IMPRESSION: 1. 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 Therefore, dialysis catheter was not inserted. RPTAT: QQ .Rick Tomlin MD, MD Date Time Electronically viewed and signed by .Rick Tomlin MD, on 11/08/2016 16:11 .R/
--- NOTE | 2016-11-08 17:16 | PN ---
DATE: 11/08/2016 SUBJECTIVE: The patient is alert, feels good, looks comfortable, no fevers. LABORATORY: WBC today 11.4, no shift, no bands. INDWELLINGS: The patient has femoral Usama. ANTIMICROBIALS: 1. Meropenem. 2. Zyvox. PHYSICAL EXAMINATION: GENERAL: This is a fragile well-developed elderly man who is alert, in no distress. HEENT: Head atraumatic, normocephalic. Sclerae anicteric. Buccal mucosa dry. NECK: Supple, trachea midline. CHEST: Rise symmetrical. Breath sounds diminished at the bases. HEART: S1, S2. ABDOMEN: Soft. Bowel tones present. EXTREMITIES: Left above-knee amputation stump ricarda intact. ASSESSMENT: 1. Resolving sepsis. 2. 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 3. Severe peripheral vascular disease status post again left above-knee amputation with infected va scular graft removal. 4. Right foot gangrene. 5. End-stage renal disease, hemodialysis dependent. 6. Diabetes. 7. Pulmonary embolism. 8. ALLERGY TO VANCOMYCIN. PLAN: The patient remains stable. White blood cell count tracing down. He is awaiting for PermCat h placement. Continue present care, antibiotics. Follow recommendations of consultants. Dictated By: DARLENE MCKEE [employer] for NICOLE SANTANA/SIN Conf#: [id number] DID#: [id number]
[2016-11-08] MEDS: INSULIN GLARGINE [LANtus] 3 ML PEN SC SCH (20:26)
[2016-11-08] MEDS: MEROPENEM 500 MG/100 ML (PMX) 100 ML IVPB SCH (21:14)
[2016-11-08] MEDS: SENNA/DOCUSATE NA (8.6MG/50MG) TAB PO SCH (21:15)
--- NOTE | 2016-11-08 23:11 | CONS ---
Date/Time of Note Date/Time of Note DATE: 11/08/16 TIME: 23:08 Assessment/Plan Assessment/Plan Additional Assessment/Plan 1. 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 Failed redo bypass.post-surgical intervention with thrombectomy, exploration of the above knee popliteal graft and debridement of left lower extremity wound with wound VAC application on 10/19/2016.- Not improving, s/p AKA by vascular surgery on 11/03/16 2. Severe stenosis of the right distal superficial femoral artery and occluded right posterior tibial artery. 3. End-stage renal disease on hemodialysis Tuesday, , Tuesday. 4. Accelerated hypertension. 5. Hyperlipidemia. 6. History of hypertension with peripheral arterial disease. 7. History of peripheral arterial disease status post left lower extremity bypass in September 2016. PLAN: s/p Removal of permacath, then pt went into Resp distress yesterday, required emergent Usama catheter placement- s/p exchange of new right groin usama, will plan for HD tomorrow Unable to place Permacath by IR today will continue to follow up on patient Consultation Date/Type/Reason Admit Date/Time Oct 18, 2016 at 16:52 Initial Consult Date 10/18/2016 Type of Consultation: NEPHROLOGY Referring Provider: OZZIE HERRERA MD 24 HR Interval Summary Free Text/Dictation s/p HD yesterdaym BP stable, IR unable to do permacath Exam/Review of Systems Vital Signs Vitals Vital Signs Date Time Temp Pulse Resp B/P Pulse Ox O2 Delivery O2 Flow Rate FiO2 11/08/16 20:36 97.8 69 20 133/62 100 11/08/16 19:36 21 11/08/16 16:00 Nasal Cannula 3 Intake and Output 11/07/16 11/07/16 11/08/16 15:00 23:00 07:00 Intake Total 400 ml 800 ml 300 ml Output Total 3400 ml 200 ml 100 ml Balance -3000 ml 600 ml 200 ml Exam GENERAL: This is a fragile well-developed elderly man who is alert, in no distress. HEENT: Head atraumatic, normocephalic. Sclerae anicteric. Buccal mucosa dry. NECK: Supple, trachea midline. CHEST: Rise symmetrical. Breath sounds diminished at the bases. HEART: S1, S2. ABDOMEN: Soft. Bowel tones present. EXTREMITIES: Left above-knee amputation stump ricarda intact. Results Result Diagram: 11/08/16 0600 11/08/16 0600 Results 24 hrs Laboratory Tests Test 11/08/16 02:40 11/08/16 06:00 11/08/16 08:26 11/08/16 12:41 Bedside Glucose 110 91 131 White Blood Count 11.4 #H Red Blood Count 2.69 L Hemoglobin 8.3 L Hematocrit 26.9 L Mean Corpuscular Volume 100.0 Mean Corpuscular Hemoglobin 30.9 Mean Corpuscular Hemoglobin Concent 30.9 L Red Cell Distribution Width 18.6 H Platelet Count 338 Mean Platelet Volume 11.5 H Neutrophils % 74.9 Lymphocytes % 13.6 L Monocytes % 9.5 Eosinophils % 0.8 Basophils % 0.3 Nucleated Red Blood Cells % 0.0 Neutrophils # 8.6 H Lymphocytes # 1.6 Monocytes # 1.1 H Eosinophils # 0.1 Basophils # 0.0 Nucleated Red Blood Cells # 0.0 Prothrombin Time 21.2 #H Prothrombin Time Ratio 1.7 INR International Normalized Ratio 1.82 Sodium Level 137 Potassium Level 4.9 Chloride Level 101 Carbon Dioxide Level 21 Anion Gap 20 H Blood Urea Nitrogen 63 H Creatinine 7.31 H Glucose Level 104 Calcium Level 7.8 L Test 11/08/16 17:32 11/08/16 21:14 Bedside Glucose 136 135 Medications Medications Current Medications Metoprolol Tartrate (Lopressor) 25 mg BID PO Last administered on 11/08/16 21: 16; Admin Dose 25 MG; Start 10/18/16 at 19:21 Hydralazine HCl (Apresoline) 10 mg Q4H PRN IV SBP>150 mm Hg Last administered on 10/27/16 20:38; Admin Dose 10 MG; Start 10/18/16 at 20:00 Albuterol (Ventolin Hfa) 2 puff Q8 INH Last administered on 11/08/16 22:54; Admin Dose 2 PUFF; Start 10/18/16 at 22:30 Famotidine (Pepcid) 20 mg DAILY PO Last administered on 11/08/16 08:43; Admin Dose 20 MG; Start 10/19/16 at 09:00 Ondansetron HCl (Zofran Inj) 4 mg Q6H PRN IV NAUSEA AND/OR VOMITING; Start at 22:30 Acetaminophen (Tylenol Tab) 650 mg Q6H PRN PO PAIN LEVEL 1-3 OR FEVER Last administered on 11/01/16 02:36; Admin Dose 650 MG; Start 10/18/16 at 22:30 Docusate Sodium (Colace) 100 mg Q12H PRN PO CONSTIPATION Last administered on 18:01; Admin Dose 100 MG; Start 10/18/16 at 22:30 Bisacodyl (Dulcolax Supp) 10 mg DAILY PRN [place] CONSTIPATION Last administered on 10/26/16 07:04; Admin Dose 10 MG; Start 10/18/16 at 22:30 Diagnostic Test (Pha) (Accucheck) 1 ea 02 XX Last administered on 10/27/16 02: 31; Admin Dose 1 EA; Start 10/19/16 at 02:00 Miscellaneous Information 1 ea NOTE XX ; Start 10/18/16 at 22:30 Glucose (Glutose) 15 gm Q15M PRN PO DECREASED GLUCOSE; Start 10/18/16 at 22:30 Glucose (Glutose) 22.5 gm Q15M PRN PO DECREASED GLUCOSE; Start 10/18/16 at 22: 30 Dextrose (D50w Syringe) 25 ml Q15M PRN IV DECREASED GLUCOSE; Start 10/18/16 at 22:30 Dextrose (D50w Syringe) 50 ml Q15M PRN IV DECREASED GLUCOSE Last administered on 10/27/16 09:35; Admin Dose 50 ML; Start 10/18/16 at 22:30 Glucagon (Glucagen) 1 mg Q15M PRN IM DECREASED GLUCOSE; Start 10/18/16 at 22:30 Glucose (Glutose) 15 gm Q15M PRN BUCCAL DECREASED GLUCOSE; Start 10/18/16 at 22 :30 Linezolid (Zyvox) 600 mg BID PO Last administered on 11/08/16 21:16; Admin Dose 600 MG; Start 10/20/16 at 12:15 Aspirin (Halfprin) 81 mg DAILY PO Last administered on 11/08/16 08:43; Admin Dose 81 MG; Start 10/22/16 at 09:00 Lactobacillus Acidoph/Bulgaricus (Floranex) 1 tab BID PO Last administered on 22:53; Admin Dose 1 TAB; Start 10/22/16 at 21:00 Senna/Docusate Sodium (Senokot-S) 2 tab HS PO Last administered on 11/08/16 21 :15; Admin Dose 2 TAB; Start 10/22/16 at 21:00 Lactulose (Enulose) 20 gm TID PRN PO CONSTIPATION Last administered on 13:32; Admin Dose 20 GM; Start 10/23/16 at 17:30 Clonidine HCl 1 patch 1 patch Q7D TRANSDERM Last administered on 11/07/16 08:34 ; Admin Dose 1 PATCH; Start 10/24/16 at 09:00 Meropenem (Merrem 500 Mg/ 100 ml (Pmx)) 100 ml @ 200 mls/hr Q24H IVPB Last administered on 11/08/16 21:14; Admin Dose 200 MLS/HR; Start 10/26/16 at 21:00 Sodium Biphosphate/ Sodium Phosphate (Fleet Enema) 133 ml DAILY PRN [place] CONSTIPATION Last administered on 10/26/16 18:33; Admin Dose 133 ML; Start at 18:00 Naloxone HCl (Narcan) 0.2 mg Q2M PRN IV RR 8 BREATHS/MIN OR LESS; Start at 13:00 Oxycodone/ Acetaminophen (Percocet (5/ 325)) 2 tab Q4H PRN PO PAIN Last administered on 11/08/16 17:19; Admin Dose 2 TAB; Start 10/28/16 at 15:00 Insulin Glargine (Lantus) 4 unit DAILY@20 SC Last administered on 11/08/16 20: 26; Admin Dose 4 UNIT; Start 10/29/16 at 20:00 Benazepril HCl (Lotensin) 10 mg BID PO Last administered on 11/08/16 21:16; Admin Dose 10 MG; Start 10/29/16 at 21:00 Nitroglycerin (Nitroglycerin (Sl Tab) 0.4 Mg) 1 tab Q5M PRN SL ANGINA Last administered on 11/01/16 21:24; Admin Dose 1 TAB; Start 11/01/16 at 21:30 Nitroglycerin (Nitroglycerin (Sl Tab) 0.4 Mg) 1 tab Q5M PRN SL CHEST PAIN; Start 11/01/16 at 22:30 Amlodipine Besylate (Norvasc) 5 mg DAILY PO Last administered on 11/08/16 08: 44; Admin Dose 5 MG; Start 11/04/16 at 09:00 Hydromorphone HCl (Dilaudid) 2 mg Q2H PRN IV PAIN Last administered on 05:54; Admin Dose 2 MG; Start 11/03/16 at 19:30 Apixaban (Eliquis) 2.5 mg BID PO Last administered on 11/08/16 21:15; Admin Dose 2.5 MG; Start 11/05/16 at 11:30 Docusate Sodium (Colace) 100 mg DAILY PO Last administered on 11/08/16 08:43; Admin Dose 100 MG; Start 11/07/16 at 14:30 LISA MERRITT MD Nov 08, 2016 23:11
[2016-11-09] VITALS (19 sets, daily range): BP systolic 120–167; BP diastolic 56–80; PULSE 61–79; RESP 19–20
[2016-11-09] MEDS: ACCU-CHEK XX SCH (02:03)
[2016-11-09] MEDS: OXYCODONE/ACETAMINOPHEN (5/325) TAB PO PRN ×2 (02:26→11:57)
[2016-11-09] MEDS: ALBUTEROL HFA 8 GM INHALER INH SCH ×3 (05:45→23:02)
[2016-11-09] MEDS: INSULIN ASPART [NOVOLOG] 3 ML PEN SC SCH ×4 (07:55→21:00)
[2016-11-09] MEDS: DOCUSATE SODIUM 100 MG CAP PO SCH (09:00)
[2016-11-09] MEDS: LACTOBACILLUS CHEW TAB PO SCH ×2 (09:00→20:35)
[2016-11-09] MEDS: ASPIRIN (EC) 81 MG TAB PO SCH (09:33)
[2016-11-09] MEDS: FAMOTIDINE 20 MG TAB PO SCH (09:33)
[2016-11-09] MEDS: ZYVOX 600 MG TAB PO SCH ×2 (09:33→20:36)
[2016-11-09] MEDS: APIXABAN 5 MG TABLET PO SCH ×2 (09:33→20:36)
[2016-11-09] MEDS: METOPROLOL 25 MG TAB PO SCH ×2 (09:34→20:36)
[2016-11-09] MEDS: AMLODIPINE 5 MG TAB PO SCH (09:34)
[2016-11-09] MEDS: BENAZEPRIL 10 MG TAB PO SCH ×2 (09:34→20:36)
[2016-11-09] MEDS ORDERED: HEPARIN 1000 UNITS/ML 10 ML INJ ONE (10:08)
[2016-11-09] MEDS ORDERED: LIDOCAINE 1% (MDV) 20 ML INJ ONE (10:08)
--- NOTE | 2016-11-09 10:16 | CONS ---
Date/Time of Note Date/Time of Note DATE: 11/09/16 TIME: 10:14 Assessment/Plan Assessment/Plan Additional Assessment/Plan 1. 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 Failed redo bypass.post-surgical intervention with thrombectomy, exploration of the above knee popliteal graft and debridement of left lower extremity wound with wound VAC application on 10/19/2016.- Not improving, s/p AKA by vascular surgery on 11/03/16 2. Severe stenosis of the right distal superficial femoral artery and occluded right posterior tibial artery. 3. End-stage renal disease on hemodialysis Tuesday, , Tuesday. 4. Accelerated hypertension. 5. Hyperlipidemia. 6. History of hypertension with peripheral arterial disease. 7. History of peripheral arterial disease status post left lower extremity bypass in September 2016. PLAN: s/p Removal of permacath, then pt went into Resp distress yesterday, required emergent Usaam catheter placement- s/p exchange of new right groin usama, Unable to place Permacath by IR yesterday, today pt had a HD and usama catheter did not work well, d/w Dr. Huerta Plan for Groin Permacath today pt need to have HD through groin Permacath before HD will continue to follow up on patient Consultation Date/Type/Reason Admit Date/Time Oct 18, 2016 at 16:52 Initial Consult Date 10/18/2016 Type of Consultation: NEPHROLOGY Referring Provider: OZZIE HERRERA MD 24 HR Interval Summary Free Text/Dictation s/p HD today, catheter did nto work well, Plan for permacath by vascula surgery Exam/Review of Systems Vital Signs Vitals Vital Signs Date Time Temp Pulse Resp B/P Pulse Ox O2 Delivery O2 Flow Rate FiO2 11/09/16 08:41 74 11/09/16 07:41 97.8 20 164/80 100 11/09/16 01:32 21 11/08/16 16:00 Nasal Cannula 3 Intake and Output 11/08/16 11/08/16 11/09/16 15:00 23:00 07:00 Intake Total 500 ml 200 ml Output Total 100 ml 150 ml Balance 400 ml 50 ml Exam GENERAL: This is a fragile well-developed elderly man who is alert, in no distress. HEENT: Head atraumatic, normocephalic. Sclerae anicteric. Buccal mucosa dry. NECK: Supple, trachea midline. CHEST: Rise symmetrical. Breath sounds diminished at the bases. HEART: S1, S2. ABDOMEN: Soft. Bowel tones present. EXTREMITIES: Left above-knee amputation stump ricarda intact. Results Result Diagram: 11/08/16 0600 11/08/16 0600 Results 24 hrs Laboratory Tests Test 11/08/16 12:41 11/08/16 17:32 11/08/16 21:14 11/09/16 08:38 Bedside Glucose 131 136 135 142 Medications Medications Current Medications Metoprolol Tartrate (Lopressor) 25 mg BID PO Last administered on 11/09/16 09: 34; Admin Dose 25 MG; Start 10/18/16 at 19:21 Hydralazine HCl (Apresoline) 10 mg Q4H PRN IV SBP>150 mm Hg Last administered on 10/27/16 20:38; Admin Dose 10 MG; Start 10/18/16 at 20:00 Albuterol (Ventolin Hfa) 2 puff Q8 INH Last administered on 11/09/16 05:45; Admin Dose 2 PUFF; Start 10/18/16 at 22:30 Famotidine (Pepcid) 20 mg DAILY PO Last administered on 11/09/16 09:33; Admin Dose 20 MG; Start 10/19/16 at 09:00 Ondansetron HCl (Zofran Inj) 4 mg Q6H PRN IV NAUSEA AND/OR VOMITING; Start at 22:30 Acetaminophen (Tylenol Tab) 650 mg Q6H PRN PO PAIN LEVEL 1-3 OR FEVER Last administered on 11/01/16 02:36; Admin Dose 650 MG; Start 10/18/16 at 22:30 Docusate Sodium (Colace) 100 mg Q12H PRN PO CONSTIPATION Last administered on 18:01; Admin Dose 100 MG; Start 10/18/16 at 22:30 Bisacodyl (Dulcolax Supp) 10 mg DAILY PRN [place] CONSTIPATION Last administered on 10/26/16 07:04; Admin Dose 10 MG; Start 10/18/16 at 22:30 Diagnostic Test (Pha) (Accucheck) 1 ea 02 XX Last administered on 11/09/16 02: 03; Admin Dose 1 EA; Start 10/19/16 at 02:00 Miscellaneous Information 1 ea NOTE XX ; Start 10/18/16 at 22:30 Glucose (Glutose) 15 gm Q15M PRN PO DECREASED GLUCOSE; Start 10/18/16 at 22:30 Glucose (Glutose) 22.5 gm Q15M PRN PO DECREASED GLUCOSE; Start 10/18/16 at 22: 30 Dextrose (D50w Syringe) 25 ml Q15M PRN IV DECREASED GLUCOSE; Start 10/18/16 at 22:30 Dextrose (D50w Syringe) 50 ml Q15M PRN IV DECREASED GLUCOSE Last administered on 10/27/16 09:35; Admin Dose 50 ML; Start 10/18/16 at 22:30 Glucagon (Glucagen) 1 mg Q15M PRN IM DECREASED GLUCOSE; Start 10/18/16 at 22:30 Glucose (Glutose) 15 gm Q15M PRN BUCCAL DECREASED GLUCOSE; Start 10/18/16 at 22 :30 Linezolid (Zyvox) 600 mg BID PO Last administered on 11/09/16 09:33; Admin Dose 600 MG; Start 10/20/16 at 12:15 Aspirin (Halfprin) 81 mg DAILY PO Last administered on 11/09/16 09:33; Admin Dose 81 MG; Start 10/22/16 at 09:00 Lactobacillus Acidoph/Bulgaricus (Floranex) 1 tab BID PO Last administered on 22:53; Admin Dose 1 TAB; Start 10/22/16 at 21:00 Senna/Docusate Sodium (Senokot-S) 2 tab HS PO Last administered on 11/08/16 21 :15; Admin Dose 2 TAB; Start 10/22/16 at 21:00 Lactulose (Enulose) 20 gm TID PRN PO CONSTIPATION Last administered on 13:32; Admin Dose 20 GM; Start 10/23/16 at 17:30 Clonidine HCl 1 patch 1 patch Q7D TRANSDERM Last administered on 11/07/16 08:34 ; Admin Dose 1 PATCH; Start 10/24/16 at 09:00 Meropenem (Merrem 500 Mg/ 100 ml (Pmx)) 100 ml @ 200 mls/hr Q24H IVPB Last administered on 11/08/16 21:14; Admin Dose 200 MLS/HR; Start 10/26/16 at 21:00 Sodium Biphosphate/ Sodium Phosphate (Fleet Enema) 133 ml DAILY PRN [place] CONSTIPATION Last administered on 10/26/16 18:33; Admin Dose 133 ML; Start at 18:00 Naloxone HCl (Narcan) 0.2 mg Q2M PRN IV RR 8 BREATHS/MIN OR LESS; Start at 13:00 Oxycodone/ Acetaminophen (Percocet (5/ 325)) 2 tab Q4H PRN PO PAIN Last administered on 11/09/16 02:26; Admin Dose 2 TAB; Start 10/28/16 at 15:00 Insulin Glargine (Lantus) 4 unit DAILY@20 SC Last administered on 11/08/16 20: 26; Admin Dose 4 UNIT; Start 10/29/16 at 20:00 Benazepril HCl (Lotensin) 10 mg BID PO Last administered on 11/09/16 09:34; Admin Dose 10 MG; Start 10/29/16 at 21:00 Nitroglycerin (Nitroglycerin (Sl Tab) 0.4 Mg) 1 tab Q5M PRN SL ANGINA Last administered on 11/01/16 21:24; Admin Dose 1 TAB; Start 11/01/16 at 21:30 Nitroglycerin (Nitroglycerin (Sl Tab) 0.4 Mg) 1 tab Q5M PRN SL CHEST PAIN; Start 11/01/16 at 22:30 Amlodipine Besylate (Norvasc) 5 mg DAILY PO Last administered on 11/09/16 09: 34; Admin Dose 5 MG; Start 11/04/16 at 09:00 Hydromorphone HCl (Dilaudid) 2 mg Q2H PRN IV PAIN Last administered on 05:54; Admin Dose 2 MG; Start 11/03/16 at 19:30 Apixaban (Eliquis) 2.5 mg BID PO Last administered on 11/09/16 09:33; Admin Dose 2.5 MG; Start 11/05/16 at 11:30 Docusate Sodium (Colace) 100 mg DAILY PO Last administered on 11/08/16 08:43; Admin Dose 100 MG; Start 11/07/16 at 14:30 LISA MERRITT MD Nov 09, 2016 10:15
--- NOTE | 2016-11-09 11:21 | OPR ---
Date/Time of Note Date/Time of Note DATE: 11/09/16 TIME: 11:15 Operative Report Free Text/Dictation DATE OF OPERATION: 11/09/2016 SURGEON: Bradley Carr MD PREOPERATIVE DIAGNOSIS: ESRD POSTOPERATIVE DIAGNOSIS: same ANESTHESIA: Local BLOOD LOSS: minimal COMPLICATIONS: None. ACCESS: Right common femoral vein INDICATIONS: This is a 65 year-old female with ESRD requiring permanent dialysis. Patient and family have been informed of the alternatives, risks, and benefits. Risks including but not limited to bleeding, thrombosis, embolization , myocardial infarction, , device malfunction, infection, pneumothorax, nephrotoxicity and patient has agreed to proceed. PROCEDURE: 1. Ultrasound guided access of right common femoral vein 2. Right common femoral vein tunneled hemodialysis catheter placement DESCRIPTION: The patient was in supine position on angio bed. Bed was placed in slight Trendelenburg position and the groin was prepped and draped with sterile technique. The central catheter was flushed with heparin to ensure function of each port. Landmarks were identified and the skin entry site was chosen using ultrasound guidance. The skin And subcutaneous tissue were anesthetized with 1% lidocaine. The vein was then located with a needle with a 10 mL syringe using ultrasound guidance. The needle was then directed towards the vein in a new access site and was entered. The needle position was secured and syringe was removed. The hub was occluded to prevent venous air embolus. The guidewire was passed easily and the needle was removed while the wire was held in place. A stab incision was made on the anterolateral aspect of the upper thigh. Using the catheter tunneler the new catheter was tunnelled. Peal away sheath was placed over wire. At this point wires were removed and the catheter was placed through the peal away sheath successfully. The catheter was inserted to the desired depth. Each port was aspirated to ensure adequate blood flow and then flushed with heparinized saline solution. The catheter was secured in place with a 2-0 nylon suture and a sterile dressing was applied. The patient tolerated the procedure well and was in stable condition. All instrument, sponge and needle counts were correct 2. BRADLEY CARR MD Nov 09, 2016 11:20
--- NOTE | 2016-11-09 12:39 | RADRPT ---
PROCEDURE: XR Pelvis 1 View. CLINICAL INDICATION: Status post dialysis catheter placement TECHNIQUE: Single AP view of the pelvis. COMPARISON: No prior studies are available for comparison. FINDINGS: Right-sided dialysis catheter is identified over the right inguinal region and right pelvis/lower ab domen. Tip of the catheter is not included on the obtained film. The osseous structures appear int act No destructive bony lesions are observed. Mild to moderate narrowing of the bilateral hip join ts is identified. Vascular calcifications are noted in the pelvis. Large amount of formed stool is noted in the colon. IMPRESSION: Dialysis catheter over the right inguinal region and right pelvis/lower abdomen. Tip of the cathete r is not included on the obtained film. Evaluation of the tip location with an abdominal film shoul d be considered. 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 Vascular calcifications. Large amount of formed stool throughout the visualized colon, possibly indicating constipation. RPTAT: AA .Abdelrahman Rodriguez MD, MD Date Time Electronically viewed and signed by .Abdelrahman Rodriguez MD, MD on 11/09/2016 12:39 .P/
--- NOTE | 2016-11-09 13:45 | CONS ---
Date/Time of Note Date/Time of Note DATE: 11/09/16 TIME: 13:44 Assessment/Plan Assessment/Plan Chief Complaint/Hosp Course SUBJECTIVE: The patient is alert, feels good, looks comfortable, no fevers. INDWELLINGS: R upper thigh permacath. ANTIMICROBIALS: 1. Meropenem. 2. Zyvox. PHYSICAL EXAMINATION: GENERAL: This is a fragile well-developed elderly man who is alert, in no distress. HEENT: Head atraumatic, normocephalic. Sclerae anicteric. Buccal mucosa dry. NECK: Supple, trachea midline. CHEST: Rise symmetrical. Breath sounds diminished at the bases. HEART: S1, S2. ABDOMEN: Soft. Bowel tones present. EXTREMITIES: Left above-knee amputation stump ricarda intact. ASSESSMENT: 1. Resolving sepsis. 2. 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 3. Severe peripheral vascular disease status post again left above-knee amputation with infected vascular graft removal. 4. Right foot gangrene. 5. End-stage renal disease, hemodialysis dependent. 6. Diabetes. 7. Pulmonary embolism. 8. ALLERGY TO VANCOMYCIN. PLAN: The patient remains stable. Completing abx DW staff Problems: Consultation Date/Type/Reason Admit Date/Time Oct 18, 2016 at 16:52 Type of Consultation: id Referring Provider: OZZIE HERRERA MD Exam/Review of Systems Vital Signs Vitals Vital Signs Date Time Temp Pulse Resp B/P Pulse Ox O2 Delivery O2 Flow Rate FiO2 11/09/16 12:30 66 11/09/16 12:12 98.0 20 167/72 100 11/09/16 01:32 21 11/08/16 16:00 Nasal Cannula 3 Intake and Output 11/08/16 11/08/16 11/09/16 15:00 23:00 07:00 Intake Total 500 ml 200 ml Output Total 100 ml 150 ml Balance 400 ml 50 ml Results Result Diagram: 11/08/16 0600 11/08/16 0600 Results 24 hrs Laboratory Tests Test 11/08/16 17:32 11/08/16 21:14 11/09/16 08:38 11/09/16 12:01 Bedside Glucose 136 135 142 239 H Medications Medications Current Medications Metoprolol Tartrate (Lopressor) 25 mg BID PO Last administered on 11/09/16t 09: 34; Admin Dose 25 MG; Start 3/20/17 at 19:21 Hydralazine HCl (Apresoline) 10 mg Q4H PRN IV SBP>150 mm Hg Last administered on 10/27/16 20:38; Admin Dose 10 MG; Start 10/18/16 at 20:00 Albuterol (Ventolin Hfa) 2 puff Q8 INH Last administered on 11/09/16 05:45; Admin Dose 2 PUFF; Start 10/18/16 at 22:30 Famotidine (Pepcid) 20 mg DAILY PO Last administered on 11/09/16 09:33; Admin Dose 20 MG; Start 10/19/16 at 09:00 Ondansetron HCl (Zofran Inj) 4 mg Q6H PRN IV NAUSEA AND/OR VOMITING; Start at 22:30 Acetaminophen (Tylenol Tab) 650 mg Q6H PRN PO PAIN LEVEL 1-3 OR FEVER Last administered on 11/01/16 02:36; Admin Dose 650 MG; Start 10/18/16 at 22:30 Docusate Sodium (Colace) 100 mg Q12H PRN PO CONSTIPATION Last administered on 18:01; Admin Dose 100 MG; Start 10/18/16 at 22:30 Bisacodyl (Dulcolax Supp) 10 mg DAILY PRN [place] CONSTIPATION Last administered on 10/26/16 07:04; Admin Dose 10 MG; Start 10/18/16 at 22:30 Diagnostic Test (Pha) (Accucheck) 1 ea 02 XX Last administered on 11/09/16 02: 03; Admin Dose 1 EA; Start 10/19/16 at 02:00 Miscellaneous Information 1 ea NOTE XX ; Start 10/18/16 at 22:30 Glucose (Glutose) 15 gm Q15M PRN PO DECREASED GLUCOSE; Start 10/18/16 at 22:30 Glucose (Glutose) 22.5 gm Q15M PRN PO DECREASED GLUCOSE; Start 10/18/16 at 22: 30 Dextrose (D50w Syringe) 25 ml Q15M PRN IV DECREASED GLUCOSE; Start 10/18/16 at 22:30 Dextrose (D50w Syringe) 50 ml Q15M PRN IV DECREASED GLUCOSE Last administered on 10/27/16 09:35; Admin Dose 50 ML; Start 10/18/16 at 22:30 Glucagon (Glucagen) 1 mg Q15M PRN IM DECREASED GLUCOSE; Start 10/18/16 at 22:30 Glucose (Glutose) 15 gm Q15M PRN BUCCAL DECREASED GLUCOSE; Start 10/18/16 at 22 :30 Linezolid (Zyvox) 600 mg BID PO Last administered on 11/09/16 09:33; Admin Dose 600 MG; Start 10/20/16 at 12:15 Aspirin (Halfprin) 81 mg DAILY PO Last administered on 11/09/16 09:33; Admin Dose 81 MG; Start 10/22/16 at 09:00 Lactobacillus Acidoph/Bulgaricus (Floranex) 1 tab BID PO Last administered on 22:53; Admin Dose 1 TAB; Start 10/22/16 at 21:00 Senna/Docusate Sodium (Senokot-S) 2 tab HS PO Last administered on 11/08/16 21 :15; Admin Dose 2 TAB; Start 10/22/16 at 21:00 Lactulose (Enulose) 20 gm TID PRN PO CONSTIPATION Last administered on 13:32; Admin Dose 20 GM; Start 10/23/16 at 17:30 Clonidine HCl 1 patch 1 patch Q7D TRANSDERM Last administered on 11/07/16 08:34 ; Admin Dose 1 PATCH; Start 10/24/16 at 09:00 Meropenem (Merrem 500 Mg/ 100 ml (Pmx)) 100 ml @ 200 mls/hr Q24H IVPB Last administered on 11/08/16 21:14; Admin Dose 200 MLS/HR; Start 10/26/16 at 21:00 Sodium Biphosphate/ Sodium Phosphate (Fleet Enema) 133 ml DAILY PRN [place] CONSTIPATION Last administered on 10/26/16 18:33; Admin Dose 133 ML; Start at 18:00 Naloxone HCl (Narcan) 0.2 mg Q2M PRN IV RR 8 BREATHS/MIN OR LESS; Start at 13:00 Oxycodone/ Acetaminophen (Percocet (5/ 325)) 2 tab Q4H PRN PO PAIN Last administered on 11/09/16 11:57; Admin Dose 2 TAB; Start 10/28/16 at 15:00 Insulin Glargine (Lantus) 4 unit DAILY@20 SC Last administered on 11/08/16 20: 26; Admin Dose 4 UNIT; Start 10/29/16 at 20:00 Benazepril HCl (Lotensin) 10 mg BID PO Last administered on 11/09/16 09:34; Admin Dose 10 MG; Start 10/29/16 at 21:00 Nitroglycerin (Nitroglycerin (Sl Tab) 0.4 Mg) 1 tab Q5M PRN SL ANGINA Last administered on 11/01/16 21:24; Admin Dose 1 TAB; Start 11/01/16 at 21:30 Nitroglycerin (Nitroglycerin (Sl Tab) 0.4 Mg) 1 tab Q5M PRN SL CHEST PAIN; Start 11/01/16 at 22:30 Amlodipine Besylate (Norvasc) 5 mg DAILY PO Last administered on 11/09/16 09: 34; Admin Dose 5 MG; Start 11/04/16 at 09:00 Hydromorphone HCl (Dilaudid) 2 mg Q2H PRN IV PAIN Last administered on 05:54; Admin Dose 2 MG; Start 11/03/16 at 19:30 Apixaban (Eliquis) 2.5 mg BID PO Last administered on 11/09/16 09:33; Admin Dose 2.5 MG; Start 11/05/16 at 11:30 Docusate Sodium (Colace) 100 mg DAILY PO Last administered on 11/08/16 08:43; Admin Dose 100 MG; Start 11/07/16 at 14:30 DARLENE MCKEE NP Nov 09, 2016 13:45
--- NOTE | 2016-11-09 14:43 | PN ---
Date/Time of Note Date/Time of Note DATE: 11/09/16 TIME: 14:40 Assessment/Plan VTE Prophylaxis VTE Prophylaxis Intervention: other Lines/Catheters IV [facility] Urinary Cath still in place: No Assessment/Plan Chief Complaint/Hosp Course Assessment and plan 1. 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 Patient does have history of bypass on area that had thrombosed. 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 Also noted with right lower extremity gangrene. 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 Continue with analgesics. wound care per vascular surgeon Pain management physician consulted for further assistance. Await recommendations. cont with abx per ID (ESBL in wound) 2. ESRD on dialysis. Continue on HD. Follow-up with nephrology recommendations 3. Hypertension. Continue on antihypertensives and adjust needed. Stable 4. Anemia of chronic disease. H&H stable. Monitor for now. 5. History of diabetes. Continue on insulin regimen. Will adjust as needed 6. CAD. Continue on antiplatelet therapy 7. Peripheral vascular disease. Continue aggressive medical management, vascular surgeon has been consulted 8. Acute respiratory distress. Likely secondary to fluid overload. Resolved status post urgent hemodialysis 9. Leukocytosis. Continue IV antibiotics, infectious disease doctor has been consulted 10. Pulmonary embolism. Continue heparin and transitioned to oral anticoagulation as per vascular surgeon Disposition and plan:. Continue with data virtualization consultant recommendations. cont with analgesics Plan to discharge home tomorrow status post hemodialysis Problems: Subjective 24 Hr Interval Summary Free Text/Dictation Status post R upper thigh permacath. Placement Denies any chest pain or shortness of breath Tolerating oral intake Exam/Review of Systems Vital Signs Vitals Vital Signs Date Time Temp Pulse Resp B/P Pulse Ox O2 Delivery O2 Flow Rate FiO2 11/09/16 12:30 66 11/09/16 12:12 98.0 20 167/72 100 11/09/16 01:32 21 11/08/16 16:00 Nasal Cannula 3 Intake and Output 11/08/16 11/08/16 11/09/16 15:00 23:00 07:00 Intake Total 500 ml 200 ml Output Total 100 ml 150 ml Balance 400 ml 50 ml Exam General: The patient is well-developed, Not in acute distress. HEENT: Atraumatic, normocephalic. The pupils are equal and round . Neck: Supple with full range of motion. Chest: Normal expansion of the thorax during inspiration Lungs: Clear to auscultation bilaterally Heart: Normal S1-S2, Regular rhythm and rate. Abdomen: Soft , nontender, nondistended , bowel sounds are present. Extremities: Status post left AKA, indwelling catheter and right thigh, no edema no cyanosis Neurologic: Normal mental status,The patient is awake, alert and oriented . Results Result Diagram: 11/08/16 0600 11/08/16 0600 Results 24 hrs Laboratory Tests Test 11/08/16 17:32 11/08/16 21:14 11/09/16 08:38 11/09/16 12:01 Bedside Glucose 136 135 142 239 H Medications Medications Current Medications Metoprolol Tartrate (Lopressor) 25 mg BID PO Last administered on 11/09/16 09: 34; Admin Dose 25 MG; Start 10/18/16 at 19:21 Hydralazine HCl (Apresoline) 10 mg Q4H PRN IV SBP>150 mm Hg Last administered on 10/27/16 20:38; Admin Dose 10 MG; Start 10/18/16 at 20:00 Albuterol (Ventolin Hfa) 2 puff Q8 INH Last administered on 11/09/16 05:45; Admin Dose 2 PUFF; Start 10/18/16 at 22:30 Famotidine (Pepcid) 20 mg DAILY PO Last administered on 11/09/16 09:33; Admin Dose 20 MG; Start 10/19/16 at 09:00 Ondansetron HCl (Zofran Inj) 4 mg Q6H PRN IV NAUSEA AND/OR VOMITING; Start at 22:30 Acetaminophen (Tylenol Tab) 650 mg Q6H PRN PO PAIN LEVEL 1-3 OR FEVER Last administered on 11/01/16 02:36; Admin Dose 650 MG; Start 10/18/16 at 22:30 Docusate Sodium (Colace) 100 mg Q12H PRN PO CONSTIPATION Last administered on 18:01; Admin Dose 100 MG; Start 10/18/16 at 22:30 Bisacodyl (Dulcolax Supp) 10 mg DAILY PRN [place] CONSTIPATION Last administered on 10/26/16 07:04; Admin Dose 10 MG; Start 10/18/16 at 22:30 Diagnostic Test (Pha) (Accucheck) 1 ea 02 XX Last administered on 11/09/16 02: 03; Admin Dose 1 EA; Start 10/19/16 at 02:00 Miscellaneous Information 1 ea NOTE XX ; Start 10/18/16 at 22:30 Glucose (Glutose) 15 gm Q15M PRN PO DECREASED GLUCOSE; Start 10/18/16 at 22:30 Glucose (Glutose) 22.5 gm Q15M PRN PO DECREASED GLUCOSE; Start 10/18/16 at 22: 30 Dextrose (D50w Syringe) 25 ml Q15M PRN IV DECREASED GLUCOSE; Start 10/18/16 at 22:30 Dextrose (D50w Syringe) 50 ml Q15M PRN IV DECREASED GLUCOSE Last administered on 10/27/16 09:35; Admin Dose 50 ML; Start 10/18/16 at 22:30 Glucagon (Glucagen) 1 mg Q15M PRN IM DECREASED GLUCOSE; Start 10/18/16 at 22:30 Glucose (Glutose) 15 gm Q15M PRN BUCCAL DECREASED GLUCOSE; Start 10/18/16 at 22 :30 Linezolid (Zyvox) 600 mg BID PO Last administered on 11/09/16 09:33; Admin Dose 600 MG; Start 10/20/16 at 12:15 Aspirin (Halfprin) 81 mg DAILY PO Last administered on 11/09/16 09:33; Admin Dose 81 MG; Start 10/22/16 at 09:00 Lactobacillus Acidoph/Bulgaricus (Floranex) 1 tab BID PO Last administered on 22:53; Admin Dose 1 TAB; Start 10/22/16 at 21:00 Senna/Docusate Sodium (Senokot-S) 2 tab HS PO Last administered on 11/08/16 21 :15; Admin Dose 2 TAB; Start 10/22/16 at 21:00 Lactulose (Enulose) 20 gm TID PRN PO CONSTIPATION Last administered on 13:32; Admin Dose 20 GM; Start 10/23/16 at 17:30 Clonidine HCl 1 patch 1 patch Q7D TRANSDERM Last administered on 11/07/16 08:34 ; Admin Dose 1 PATCH; Start 10/24/16 at 09:00 Meropenem (Merrem 500 Mg/ 100 ml (Pmx)) 100 ml @ 200 mls/hr Q24H IVPB Last administered on 11/08/16 21:14; Admin Dose 200 MLS/HR; Start 10/26/16 at 21:00 Sodium Biphosphate/ Sodium Phosphate (Fleet Enema) 133 ml DAILY PRN [place] CONSTIPATION Last administered on 10/26/16 18:33; Admin Dose 133 ML; Start at 18:00 Naloxone HCl (Narcan) 0.2 mg Q2M PRN IV RR 8 BREATHS/MIN OR LESS; Start at 13:00 Oxycodone/ Acetaminophen (Percocet (5/ 325)) 2 tab Q4H PRN PO PAIN Last administered on 11/09/16 11:57; Admin Dose 2 TAB; Start 10/28/16 at 15:00 Insulin Glargine (Lantus) 4 unit DAILY@20 SC Last administered on 11/08/16 20: 26; Admin Dose 4 UNIT; Start 10/29/16 at 20:00 Benazepril HCl (Lotensin) 10 mg BID PO Last administered on 11/09/16 09:34; Admin Dose 10 MG; Start 10/29/16 at 21:00 Nitroglycerin (Nitroglycerin (Sl Tab) 0.4 Mg) 1 tab Q5M PRN SL CHEST PAIN; Start 11/01/16 at 22:30 Amlodipine Besylate (Norvasc) 5 mg DAILY PO Last administered on 11/09/16 09: 34; Admin Dose 5 MG; Start 11/04/16 at 09:00 Hydromorphone HCl (Dilaudid) 2 mg Q2H PRN IV PAIN Last administered on 05:54; Admin Dose 2 MG; Start 11/03/16 at 19:30 Apixaban (Eliquis) 2.5 mg BID PO Last administered on 11/09/16 09:33; Admin Dose 2.5 MG; Start 11/05/16 at 11:30 Docusate Sodium (Colace) 100 mg DAILY PO Last administered on 11/08/16 08:43; Admin Dose 100 MG; Start 11/07/16 at 14:30 OZZIE HERRERA MD Nov 09, 2016 14:43
--- NOTE | 2016-11-09 16:32 | CONS ---
Date/Time of Note Date/Time of Note DATE: 11/09/16 TIME: 16:30 Assessment/Plan Assessment/Plan Additional Assessment/Plan 1. Preoperative evaluation prior to lower extremity vascular surgery, possible amputation.-Now s/p LLE vascular surgery with failed graft and now Post-op s/p LE amputation - tolerated procedure well- con't med rx now 2. Hypertension-Well controlled - will follow clinically 3. Abnormal electrocardiogram, assess for acute coronary syndrome. 4. Dyslipidemia. 5. Peripheral arterial disease, s/p LE amputation - vascualr team follows 6. Lower extremity nonhealing ulceration of the toe. 7. PNA- on anti-Bx, con't med rx 8. End-stage renal disease on hemodialysis- rx as needed per renal team 9. Anemia. 10. Leukocytosis. 11. Cardiomyopathy-LVEF 40-45%-negative trop x 3 since admit-mild CHF by cxr systolic acute on chronic 12. CHest qetg-Rxoh-cj now resolved. Trop negative x 2 post epsiode/EKG 10/29 with lateral TWI(no sig changes)-no recurrence 14. PE Consultation Date/Type/Reason Admit Date/Time Oct 18, 2016 at 16:52 Type of Consultation: id Referring Provider: OZZIE HERRERA MD 24 HR Interval Summary Free Text/Dictation No acute events recovering post op now. ROS: No fever, no chills, no nausea, no vomiting, no diarrhea/constipation No recent weight changes No chest pain, no PND, no orthopnea No dizziness, blurred vision No thirst, no heat or cold intolerance Pain Rx now Exam/Review of Systems Vital Signs Vitals Vital Signs Date Time Temp Pulse Resp B/P Pulse Ox O2 Delivery O2 Flow Rate FiO2 11/09/16 16:04 98.2 69 20 125/61 100 11/09/16 01:32 21 11/08/16 16:00 Nasal Cannula 3 Intake and Output 11/08/16 11/08/16 11/09/16 15:00 23:00 07:00 Intake Total 500 ml 200 ml Output Total 100 ml 150 ml Balance 400 ml 50 ml Exam General: WN/WD/NAD, AOx 2-3 HEENT: Unicetric/atraumatic/EOMI ( follow commands) NECK: JVD elevated, no thyromegaly Lymph: no lymphadenopathy HEART: regular with no S3, II/ systolic murmur at apex LUNGS: Coarse sounds ABD: soft, NT, ND, +BS : Intact Neuro: non focal SKIN: chronic changes EXT: amputation Results Result Diagram: 11/08/16 0600 11/08/16 0600 Results 24 hrs Laboratory Tests Test 11/08/16 17:32 11/08/16 21:14 11/09/16 08:38 11/09/16 12:01 Bedside Glucose 136 135 142 239 H Medications Medications Current Medications Metoprolol Tartrate (Lopressor) 25 mg BID PO Last administered on 11/09/16 09: 34; Admin Dose 25 MG; Start 10/18/16 at 19:21 Hydralazine HCl (Apresoline) 10 mg Q4H PRN IV SBP>150 mm Hg Last administered on 10/27/16 20:38; Admin Dose 10 MG; Start 10/18/16 at 20:00 Albuterol (Ventolin Hfa) 2 puff Q8 INH Last administered on 11/09/16 15:50; Admin Dose 2 PUFF; Start 10/18/16 at 22:30 Famotidine (Pepcid) 20 mg DAILY PO Last administered on 11/09/16 09:33; Admin Dose 20 MG; Start 10/19/16 at 09:00 Ondansetron HCl (Zofran Inj) 4 mg Q6H PRN IV NAUSEA AND/OR VOMITING; Start at 22:30 Acetaminophen (Tylenol Tab) 650 mg Q6H PRN PO PAIN LEVEL 1-3 OR FEVER Last administered on 11/01/16 02:36; Admin Dose 650 MG; Start 10/18/16 at 22:30 Docusate Sodium (Colace) 100 mg Q12H PRN PO CONSTIPATION Last administered on 18:01; Admin Dose 100 MG; Start 10/18/16 at 22:30 Bisacodyl (Dulcolax Supp) 10 mg DAILY PRN [place] CONSTIPATION Last administered on 10/26/16 07:04; Admin Dose 10 MG; Start 10/18/16 at 22:30 Diagnostic Test (Pha) (Accucheck) 1 ea 02 XX Last administered on 11/09/16 02: 03; Admin Dose 1 EA; Start 10/19/16 at 02:00 Miscellaneous Information 1 ea NOTE XX ; Start 10/18/16 at 22:30 Glucose (Glutose) 15 gm Q15M PRN PO DECREASED GLUCOSE; Start 10/18/16 at 22:30 Glucose (Glutose) 22.5 gm Q15M PRN PO DECREASED GLUCOSE; Start 10/18/16 at 22: 30 Dextrose (D50w Syringe) 25 ml Q15M PRN IV DECREASED GLUCOSE; Start 10/18/16 at 22:30 Dextrose (D50w Syringe) 50 ml Q15M PRN IV DECREASED GLUCOSE Last administered on 10/27/16 09:35; Admin Dose 50 ML; Start 10/18/16 at 22:30 Glucagon (Glucagen) 1 mg Q15M PRN IM DECREASED GLUCOSE; Start 10/18/16 at 22:30 Glucose (Glutose) 15 gm Q15M PRN BUCCAL DECREASED GLUCOSE; Start 10/18/16 at 22 :30 Linezolid (Zyvox) 600 mg BID PO Last administered on 11/09/16 09:33; Admin Dose 600 MG; Start 10/20/16 at 12:15 Aspirin (Halfprin) 81 mg DAILY PO Last administered on 11/09/16 09:33; Admin Dose 81 MG; Start 10/22/16 at 09:00 Lactobacillus Acidoph/Bulgaricus (Floranex) 1 tab BID PO Last administered on 22:53; Admin Dose 1 TAB; Start 10/22/16 at 21:00 Senna/Docusate Sodium (Senokot-S) 2 tab HS PO Last administered on 11/08/16 21 :15; Admin Dose 2 TAB; Start 10/22/16 at 21:00 Lactulose (Enulose) 20 gm TID PRN PO CONSTIPATION Last administered on 13:32; Admin Dose 20 GM; Start 10/23/16 at 17:30 Clonidine HCl 1 patch 1 patch Q7D TRANSDERM Last administered on 11/07/16 08:34 ; Admin Dose 1 PATCH; Start 10/24/16 at 09:00 Meropenem (Merrem 500 Mg/ 100 ml (Pmx)) 100 ml @ 200 mls/hr Q24H IVPB Last administered on 11/08/16 21:14; Admin Dose 200 MLS/HR; Start 10/26/16 at 21:00 Sodium Biphosphate/ Sodium Phosphate (Fleet Enema) 133 ml DAILY PRN [place] CONSTIPATION Last administered on 10/26/16 18:33; Admin Dose 133 ML; Start at 18:00 Naloxone HCl (Narcan) 0.2 mg Q2M PRN IV RR 8 BREATHS/MIN OR LESS; Start at 13:00 Oxycodone/ Acetaminophen (Percocet (5/ 325)) 2 tab Q4H PRN PO PAIN Last administered on 11/09/16 11:57; Admin Dose 2 TAB; Start 10/28/16 at 15:00 Insulin Glargine (Lantus) 4 unit DAILY@20 SC Last administered on 11/08/16 20: 26; Admin Dose 4 UNIT; Start 10/29/16 at 20:00 Benazepril HCl (Lotensin) 10 mg BID PO Last administered on 11/09/16 09:34; Admin Dose 10 MG; Start 10/29/16 at 21:00 Nitroglycerin (Nitroglycerin (Sl Tab) 0.4 Mg) 1 tab Q5M PRN SL CHEST PAIN; Start 11/01/16 at 22:30 Amlodipine Besylate (Norvasc) 5 mg DAILY PO Last administered on 11/09/16 09: 34; Admin Dose 5 MG; Start 11/04/16 at 09:00 Hydromorphone HCl (Dilaudid) 2 mg Q2H PRN IV PAIN Last administered on 05:54; Admin Dose 2 MG; Start 11/03/16 at 19:30 Apixaban (Eliquis) 2.5 mg BID PO Last administered on 11/09/16 09:33; Admin Dose 2.5 MG; Start 11/05/16 at 11:30 Docusate Sodium (Colace) 100 mg DAILY PO Last administered on 11/08/16 08:43; Admin Dose 100 MG; Start 11/07/16 at 14:30 JESSIE VANN MD Nov 09, 2016 16:32
[2016-11-09] MEDS: INSULIN GLARGINE [LANtus] 3 ML PEN SC SCH (20:31)
[2016-11-09] MEDS: MEROPENEM 500 MG/100 ML (PMX) 100 ML IVPB SCH (20:34)
[2016-11-09] MEDS: HYDROmorphONE 2 MG/ML SYG IV PRN (20:35)
[2016-11-09] MEDS: SENNA/DOCUSATE NA (8.6MG/50MG) TAB PO SCH (20:36)
[2016-11-10] VITALS (17 sets, daily range): BP systolic 125–162; BP diastolic 65–77; PULSE 66–75; RESP 19–20
[2016-11-10] MEDS: HYDROmorphONE 2 MG/ML SYG IV PRN ×4 (01:47→21:22)
[2016-11-10] MEDS: ACCU-CHEK XX SCH (02:00)
[2016-11-10] MEDS: ALBUTEROL HFA 8 GM INHALER INH SCH ×3 (05:12→21:23)
[2016-11-10 06:59] LABS: ADD SCAN DIFF NO
[2016-11-10 07:02] LABS: BASOPHILS % 0.3 % (0.0-2.0); EOSINOPHILS # 0.2 10^3/ul (0.0-0.5); EOSINOPHILS % 1.2 % (0.0-7.0); HEMATOCRIT 28.6 % (42.0-52.0); HEMOGLOBIN 8.5 g/dl (14.0-18.0); LYMPHOCYTES # 2.6 10^3/ul (0.8-2.9); LYMPHOCYTES % 21.1 % (15.0-51.0); MEAN CORPUSCULAR HGB CONC 29.7 g/dl (32.0-37.0); MEAN CORPUSCULAR VOLUME 101.1 fl (82.0-101.0); MEAN PLATELET VOLUME 11.5 fl (7.4-10.4); MONOCYTE # 1.3 10^3/ul (0.3-0.9); MONOCYTES % 10.7 % (0.0-11.0); PLATELET COUNT 297 10^3/UL (140-415); RED BLOOD COUNT 2.83 10^6/ul (4.70-6.10); RED CELL DISTRIBUTION WIDTH 18.5 % (11.5-14.5); WHITE BLOOD COUNT 12.1 10^3/ul (4.8-10.8)
[2016-11-10 07:27] LABS: CREATININE 7.25 mg/dl (0.61-1.24); MAGNESIUM 2.2 mg/dl (1.7-2.5)
[2016-11-10] MEDS: METOPROLOL 25 MG TAB PO SCH ×2 (09:00→20:17)
[2016-11-10] MEDS: BENAZEPRIL 10 MG TAB PO SCH ×2 (09:00→20:17)
[2016-11-10] MEDS: AMLODIPINE 5 MG TAB PO SCH (09:00)
[2016-11-10] MEDS: INSULIN ASPART [NOVOLOG] 3 ML PEN SC SCH ×4 (09:23→20:28)
[2016-11-10] MEDS: DOCUSATE SODIUM 100 MG CAP PO SCH (09:25)
[2016-11-10] MEDS: APIXABAN 5 MG TABLET PO SCH ×2 (09:25→20:16)
[2016-11-10] MEDS: LACTOBACILLUS CHEW TAB PO SCH ×2 (09:25→20:17)
[2016-11-10] MEDS: ZYVOX 600 MG TAB PO SCH (09:25)
[2016-11-10] MEDS: ASPIRIN (EC) 81 MG TAB PO SCH (09:25)
[2016-11-10] MEDS: FAMOTIDINE 20 MG TAB PO SCH (09:25)
--- NOTE | 2016-11-10 12:18 | CONS ---
Date/Time of Note Date/Time of Note DATE: 11/10/16 TIME: 12:16 Assessment/Plan Assessment/Plan Additional Assessment/Plan 1. 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 Failed redo bypass.post-surgical intervention with thrombectomy, exploration of the above knee popliteal graft and debridement of left lower extremity wound with wound VAC application on 10/19/2016.- Not improving, s/p AKA by vascular surgery on 11/03/16 2. Severe stenosis of the right distal superficial femoral artery and occluded right posterior tibial artery. 3. End-stage renal disease on hemodialysis Tuesday, , Tuesday. 4. Accelerated hypertension. 5. Hyperlipidemia. 6. History of hypertension with peripheral arterial disease. 7. History of peripheral arterial disease status post left lower extremity bypass in September 2016. 8. hyperkalemia with K 6.0 PLAN: s/p New groin permacath, K 6.0 today, plan is to do HD today and tomorrow pt need to have HD through groin Permacath before d/c will continue to follow up on patient Consultation Date/Type/Reason Admit Date/Time Oct 18, 2016 at 16:52 Initial Consult Date 10/18/2016 Type of Consultation: NEPHROLOGY Referring Provider: OZZIE HERRERA MD 24 HR Interval Summary Free Text/Dictation s/p permacath, K 6.0 today, Exam/Review of Systems Vital Signs Vitals Vital Signs Date Time Temp Pulse Resp B/P Pulse Ox O2 Delivery O2 Flow Rate FiO2 11/10/16 12:08 67 11/10/16 11:35 18 11/10/16 07:51 99.2 145/65 99 11/09/16 01:32 21 11/08/16 16:00 Nasal Cannula 3 Intake and Output 11/09/16 11/09/16 11/10/16 15:00 23:00 07:00 Intake Total 500 ml 500 ml Output Total 3500 ml 250 ml Balance -3000 ml 250 ml Exam GENERAL: This is a fragile well-developed elderly man who is alert, in no distress. HEENT: Head atraumatic, normocephalic. Sclerae anicteric. Buccal mucosa dry. NECK: Supple, trachea midline. CHEST: Rise symmetrical. Breath sounds diminished at the bases. HEART: S1, S2. ABDOMEN: Soft. Bowel tones present. EXTREMITIES: Left above-knee amputation stump ricarda intact. Groin permacath in place Results Result Diagram: 11/10/16 0645 11/10/16 0645 Results 24 hrs Laboratory Tests Test 11/09/16 17:34 11/09/16 20:28 11/10/16 06:45 11/10/16 09:23 Bedside Glucose 74 150 124 White Blood Count 12.1 H Red Blood Count 2.83 L Hemoglobin 8.5 L Hematocrit 28.6 L Mean Corpuscular Volume 101.1 H Mean Corpuscular Hemoglobin 30.0 Mean Corpuscular Hemoglobin Concent 29.7 L Red Cell Distribution Width 18.5 H Platelet Count 297 Mean Platelet Volume 11.5 H Neutrophils % 66.0 Lymphocytes % 21.1 Monocytes % 10.7 Eosinophils % 1.2 Basophils % 0.3 Nucleated Red Blood Cells % 0.0 Neutrophils # 8.0 H Lymphocytes # 2.6 Monocytes # 1.3 H Eosinophils # 0.2 Basophils # 0.0 Nucleated Red Blood Cells # 0.0 Sodium Level 136 Potassium Level 6.0 H Chloride Level 103 Carbon Dioxide Level 24 Anion Gap 15 Blood Urea Nitrogen 69 H Creatinine 7.25 H Glucose Level 106 Calcium Level 8.0 L Magnesium Level 2.2 Test 11/10/16 11:32 Bedside Glucose 206 Medications Medications Current Medications Metoprolol Tartrate (Lopressor) 25 mg BID PO Last administered on 11/09/16 20: 36; Admin Dose 25 MG; Start 10/18/16 at 19:21 Hydralazine HCl (Apresoline) 10 mg Q4H PRN IV SBP>150 mm Hg Last administered on 10/27/16 20:38; Admin Dose 10 MG; Start 10/18/16 at 20:00 Albuterol (Ventolin Hfa) 2 puff Q8 INH Last administered on 11/10/16 05:12; Admin Dose 2 PUFF; Start 10/18/16 at 22:30 Famotidine (Pepcid) 20 mg DAILY PO Last administered on 11/10/16 09:25; Admin Dose 20 MG; Start 10/19/16 at 09:00 Ondansetron HCl (Zofran Inj) 4 mg Q6H PRN IV NAUSEA AND/OR VOMITING; Start at 22:30 Acetaminophen (Tylenol Tab) 650 mg Q6H PRN PO PAIN LEVEL 1-3 OR FEVER Last administered on 11/01/16 02:36; Admin Dose 650 MG; Start 10/18/16 at 22:30 Docusate Sodium (Colace) 100 mg Q12H PRN PO CONSTIPATION Last administered on 18:01; Admin Dose 100 MG; Start 10/18/16 at 22:30 Bisacodyl (Dulcolax Supp) 10 mg DAILY PRN MA CONSTIPATION Last administered on 10/26/16 07:04; Admin Dose 10 MG; Start 10/18/16 at 22:30 Diagnostic Test (Pha) (Accucheck) 1 ea 02 XX Last administered on 11/09/16 02: 03; Admin Dose 1 EA; Start 10/19/16 at 02:00 Miscellaneous Information 1 ea NOTE XX ; Start 10/18/16 at 22:30 Glucose (Glutose) 15 gm Q15M PRN PO DECREASED GLUCOSE; Start 10/18/16 at 22:30 Glucose (Glutose) 22.5 gm Q15M PRN PO DECREASED GLUCOSE; Start 10/18/16 at 22: 30 Dextrose (D50w Syringe) 25 ml Q15M PRN IV DECREASED GLUCOSE; Start 10/18/16 at 22:30 Dextrose (D50w Syringe) 50 ml Q15M PRN IV DECREASED GLUCOSE Last administered on 10/27/16 09:35; Admin Dose 50 ML; Start 10/18/16 at 22:30 Glucagon (Glucagen) 1 mg Q15M PRN IM DECREASED GLUCOSE; Start 10/18/16 at 22:30 Glucose (Glutose) 15 gm Q15M PRN BUCCAL DECREASED GLUCOSE; Start 10/18/16 at 22 :30 Linezolid (Zyvox) 600 mg BID PO Last administered on 11/10/16 09:25; Admin Dose 600 MG; Start 10/20/16 at 12:15 Aspirin (Halfprin) 81 mg DAILY PO Last administered on 11/10/16 09:25; Admin Dose 81 MG; Start 10/22/16 at 09:00 Lactobacillus Acidoph/Bulgaricus (Floranex) 1 tab BID PO Last administered on 09:25; Admin Dose 1 TAB; Start 10/22/16 at 21:00 Senna/Docusate Sodium (Senokot-S) 2 tab HS PO Last administered on 11/09/16 20 :36; Admin Dose 2 TAB; Start 10/22/16 at 21:00 Lactulose (Enulose) 20 gm TID PRN PO CONSTIPATION Last administered on 13:32; Admin Dose 20 GM; Start 10/23/16 at 17:30 Clonidine HCl 1 patch 1 patch Q7D TRANSDERM Last administered on 11/07/16 08:34 ; Admin Dose 1 PATCH; Start 10/24/16 at 09:00 Meropenem (Merrem 500 Mg/ 100 ml (Pmx)) 100 ml @ 200 mls/hr Q24H IVPB Last administered on 11/09/16 20:34; Admin Dose 200 MLS/HR; Start 10/26/16 at 21:00 Sodium Biphosphate/ Sodium Phosphate (Fleet Enema) 133 ml DAILY PRN MA CONSTIPATION Last administered on 10/26/16 18:33; Admin Dose 133 ML; Start at 18:00 Naloxone HCl (Narcan) 0.2 mg Q2M PRN IV RR 8 BREATHS/MIN OR LESS; Start at 13:00 Oxycodone/ Acetaminophen (Percocet (5/ 325)) 2 tab Q4H PRN PO PAIN Last administered on 11/09/16 11:57; Admin Dose 2 TAB; Start 10/28/16 at 15:00 Insulin Glargine (Lantus) 4 unit DAILY@20 SC Last administered on 11/09/16 20: 31; Admin Dose 4 UNIT; Start 10/29/16 at 20:00 Benazepril HCl (Lotensin) 10 mg BID PO Last administered on 11/09/16 20:36; Admin Dose 10 MG; Start 10/29/16 at 21:00 Nitroglycerin (Nitroglycerin (Sl Tab) 0.4 Mg) 1 tab Q5M PRN SL CHEST PAIN; Start 11/01/16 at 22:30 Amlodipine Besylate (Norvasc) 5 mg DAILY PO Last administered on 11/09/16 09: 34; Admin Dose 5 MG; Start 11/04/16 at 09:00 Hydromorphone HCl (Dilaudid) 2 mg Q2H PRN IV PAIN Last administered on 09:27; Admin Dose 2 MG; Start 11/03/16 at 19:30 Apixaban (Eliquis) 2.5 mg BID PO Last administered on 11/10/16 09:25; Admin Dose 2.5 MG; Start 11/05/16 at 11:30 Docusate Sodium (Colace) 100 mg DAILY PO Last administered on 11/10/16 09:25; Admin Dose 100 MG; Start 11/07/16 at 14:30 LISA MERRITT MD Nov 10, 2016 12:18
[2016-11-10] MEDS: OXYCODONE/ACETAMINOPHEN (5/325) TAB PO PRN (14:14)
--- NOTE | 2016-11-10 14:58 | PN ---
Date/Time of Note Date/Time of Note DATE: 11/10/16 TIME: 14:55 Assessment/Plan Lines/Catheters IV Catheter Type (from [facility]): Saline Lock Correa in Place (from [facility]): No Assessment/Plan Chief Complaint/Hosp Course -Bilateral lower extremity atherosclerosis with gangrene: S/P AKA -PE: Continue anticoagulation -Right lower extremity gangrene: will schedule patient for angiogram pending labor and delivery nurse availability and resolution of WBC/leukocytosis - Will schedule as outpatient -End-stage renal disease: S/P Perm catheter -Optimize vascular status (BP meds, diet, nutrition, exercise, sugar control, antiplatelets). -PT/OT OOB and FWB as tolerated -Discussed findings, plan and management with the patient and family at the bedside and they understand with certified business team leader. -Thank you for allowing us to participate in the care of your patient. Please call with any questions. Problems: Subjective 24 Hr Interval Summary no new vascular events overnight Exam/Review of Systems Vital Signs Vitals Vital Signs Date Time Temp Pulse Resp B/P Pulse Ox O2 Delivery O2 Flow Rate FiO2 11/10/16 12:21 98.7 67 20 162/70 100 11/09/16 01:32 21 11/08/16 16:00 Nasal Cannula 3 Intake and Output 11/09/16 11/09/16 11/10/16 15:00 23:00 07:00 Intake Total 500 ml 500 ml Output Total 3500 ml 250 ml Balance -3000 ml 250 ml Exam Free Text/Dictation GENERAL: Alert and oriented x3, PULMONARY: Clear to auscultation bilaterally. CARDIOVASCULAR: S1, S2 present. ABDOMEN: Soft, nontender, nondistended. Bowel sounds positive. EXTREMITIES: Right lower extremity palpable femoral pulse, nonpalpable pedal pulse. Motor, sensory intact. Cap refill 3 to 4 seconds. Dry Gangrene of the first and second toe Left lower extremity: Palpable femoral pulse, AKA-stump with dressing intact and dry -removed and incision clean Results Result Diagram: 11/10/16 0645 11/10/16 0645 CYNDI CARR MD Nov 10, 2016 14:57
--- NOTE | 2016-11-10 15:51 | PDOCDIS ---
Discharge Instructions CONDITION Patient Condition: Good HOME CARE INSTRUCTIONS: Special Diet: 1800 dione ada ACTIVITY: Activity Restrictions: Slowly Increase Activity Rest between Activity Avoid heavy lifting Avoid Heavy Housework Keep Limb Elevated FOLLOW UP/APPOINTMENTS Appointments Follow up with nephrology as out-pt Follow up with Vascular surgeon as out-pt Follow up with PCP as out-pt Follow up with cardiology as outpt OZZIE HERRERA MD Nov 10, 2016 15:51
[2016-11-10] MEDS ORDERED: ALBU18HF INH (15:59)
[2016-11-10] MEDS ORDERED: BENA10TA48 PO (15:59)
[2016-11-10] MEDS ORDERED: METO-448 PO (15:59)
[2016-11-10] MEDS ORDERED: APIX5TAB PO (15:59)
[2016-11-10] MEDS ORDERED: NIT4 SL (15:59)
[2016-11-10] MEDS ORDERED: GLIP5TAB13 PO (15:59)
[2016-11-10] MEDS ORDERED: AMLO-147 PO (15:59)
[2016-11-10] MEDS ORDERED: DOCU-216 PO (15:59)
[2016-11-10] MEDS ORDERED: FAMO20TA18 PO (15:59)
[2016-11-10] MEDS ORDERED: HYDR-906 PO (15:59)
[2016-11-10] MEDS ORDERED: CATTTS1 TRANSDERM (15:59)
[2016-11-10] MEDS ORDERED: ASPI-664 PO (15:59)
--- NOTE | 2016-11-10 16:14 | PN ---
Date/Time of Note Date/Time of Note DATE: 11/10/16 TIME: 16:11 Assessment/Plan VTE Prophylaxis VTE Prophylaxis Intervention: other Lines/Catheters IV Catheter Type (from Nrs): Saline Lock Urinary Cath still in place: No Assessment/Plan Chief Complaint/Hosp Course Assessment and plan 1. 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 Patient does have history of bypass on area that had thrombosed. 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 Also noted with right lower extremity gangrene. 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 Continue with analgesics. wound care per vascular surgeon Pain management physician consulted for further assistance. Await recommendations. cont with abx per ID (ESBL in wound) 2. ESRD on dialysis. Continue on HD. Follow-up with nephrology recommendations 3. Hypertension. Continue on antihypertensives and adjust needed. Stable 4. Anemia of chronic disease. H&H stable. Monitor for now. 5. History of diabetes. Continue on insulin regimen. Will adjust as needed 6. CAD. Continue on antiplatelet therapy 7. Peripheral vascular disease. Continue aggressive medical management, vascular surgeon has been consulted 8. Acute respiratory distress. Likely secondary to fluid overload. Resolved status post urgent hemodialysis 9. Leukocytosis. Continue IV antibiotics, infectious disease doctor has been consulted 10. Pulmonary embolism. Continue heparin and transitioned to oral anticoagulation as per vascular surgeon Disposition and plan:. Continue with health analytics consultant recommendations. cont with analgesics Plan to discharge to [facility] facility when accepted Problems: Subjective 24 Hr Interval Summary Free Text/Dictation As per vascular surgeon patient needs to be set up for prosthesis Patient denies any chest pain or shortness of breath No abdominal pain No nausea vomiting diarrhea Tolerating oral intake Minimal pain in stump Exam/Review of Systems Vital Signs Vitals Vital Signs Date Time Temp Pulse Resp B/P Pulse Ox O2 Delivery O2 Flow Rate FiO2 11/10/16 12:21 98.7 67 20 162/70 100 11/09/16 01:32 21 11/08/16 16:00 Nasal Cannula 3 Intake and Output 11/09/16 11/09/16 11/10/16 15:00 23:00 07:00 Intake Total 500 ml 500 ml Output Total 3500 ml 250 ml Balance -3000 ml 250 ml Exam General: The patient is well-developed, Not in acute distress. HEENT: Atraumatic, normocephalic. The pupils are equal and round . Neck: Supple with full range of motion. Chest: Normal expansion of the thorax during inspiration Lungs: Clear to auscultation bilaterally Heart: Normal S1-S2, Regular rhythm and rate. Abdomen: Soft , nontender, nondistended , bowel sounds are present. Extremities:, no edema no cyanosis, right lower extremity Dry Gangrene of the first and second toe, dialysis catheter in the right thigh Left lower extremity: Palpable femoral pulse, AKA-stump with dressing intact and dry -removed and incision clean, Neurologic: Normal mental status,The patient is awake, alert and oriented . Results Result Diagram: 11/10/16 0645 11/10/16 0645 Results 24 hrs Laboratory Tests Test 11/09/16 17:34 11/09/16 20:28 11/10/16 06:45 11/10/16 09:23 Bedside Glucose 74 150 124 White Blood Count 12.1 H Red Blood Count 2.83 L Hemoglobin 8.5 L Hematocrit 28.6 L Mean Corpuscular Volume 101.1 H Mean Corpuscular Hemoglobin 30.0 Mean Corpuscular Hemoglobin Concent 29.7 L Red Cell Distribution Width 18.5 H Platelet Count 297 Mean Platelet Volume 11.5 H Neutrophils % 66.0 Lymphocytes % 21.1 Monocytes % 10.7 Eosinophils % 1.2 Basophils % 0.3 Nucleated Red Blood Cells % 0.0 Neutrophils # 8.0 H Lymphocytes # 2.6 Monocytes # 1.3 H Eosinophils # 0.2 Basophils # 0.0 Nucleated Red Blood Cells # 0.0 Sodium Level 136 Potassium Level 6.0 H Chloride Level 103 Carbon Dioxide Level 24 Anion Gap 15 Blood Urea Nitrogen 69 H Creatinine 7.25 H Glucose Level 106 Calcium Level 8.0 L Magnesium Level 2.2 Test 11/10/16 11:32 Bedside Glucose 206 Medications Medications Current Medications Metoprolol Tartrate (Lopressor) 25 mg BID PO Last administered on 11/09/16 20: 36; Admin Dose 25 MG; Start 10/18/16 at 19:21 Hydralazine HCl (Apresoline) 10 mg Q4H PRN IV SBP>150 mm Hg Last administered on 10/27/16 20:38; Admin Dose 10 MG; Start 10/18/16 at 20:00 Albuterol (Ventolin Hfa) 2 puff Q8 INH Last administered on 11/10/16 14:14; Admin Dose 2 PUFF; Start 10/18/16 at 22:30 Famotidine (Pepcid) 20 mg DAILY PO Last administered on 11/10/16 09:25; Admin Dose 20 MG; Start 10/19/16 at 09:00 Ondansetron HCl (Zofran Inj) 4 mg Q6H PRN IV NAUSEA AND/OR VOMITING; Start at 22:30 Acetaminophen (Tylenol Tab) 650 mg Q6H PRN PO PAIN LEVEL 1-3 OR FEVER Last administered on 11/01/16 02:36; Admin Dose 650 MG; Start 10/18/16 at 22:30 Docusate Sodium (Colace) 100 mg Q12H PRN PO CONSTIPATION Last administered on 18:01; Admin Dose 100 MG; Start 10/18/16 at 22:30 Bisacodyl (Dulcolax Supp) 10 mg DAILY PRN CO CONSTIPATION Last administered on 10/26/16 07:04; Admin Dose 10 MG; Start 10/18/16 at 22:30 Diagnostic Test (Pha) (Accucheck) 1 ea 02 XX Last administered on 11/09/16 02: 03; Admin Dose 1 EA; Start 10/19/16 at 02:00 Miscellaneous Information 1 ea NOTE XX ; Start 10/18/16 at 22:30 Glucose (Glutose) 15 gm Q15M PRN PO DECREASED GLUCOSE; Start 10/18/16 at 22:30 Glucose (Glutose) 22.5 gm Q15M PRN PO DECREASED GLUCOSE; Start 10/18/16 at 22: 30 Dextrose (D50w Syringe) 25 ml Q15M PRN IV DECREASED GLUCOSE; Start 10/18/16 at 22:30 Dextrose (D50w Syringe) 50 ml Q15M PRN IV DECREASED GLUCOSE Last administered on 10/27/16 09:35; Admin Dose 50 ML; Start 10/18/16 at 22:30 Glucagon (Glucagen) 1 mg Q15M PRN IM DECREASED GLUCOSE; Start 10/18/16 at 22:30 Glucose (Glutose) 15 gm Q15M PRN BUCCAL DECREASED GLUCOSE; Start 10/18/16 at 22 :30 Linezolid (Zyvox) 600 mg BID PO Last administered on 11/10/16 09:25; Admin Dose 600 MG; Start 10/20/16 at 12:15 Aspirin (Halfprin) 81 mg DAILY PO Last administered on 11/10/16 09:25; Admin Dose 81 MG; Start 10/22/16 at 09:00 Lactobacillus Acidoph/Bulgaricus (Floranex) 1 tab BID PO Last administered on 09:25; Admin Dose 1 TAB; Start 10/22/16 at 21:00 Senna/Docusate Sodium (Senokot-S) 2 tab HS PO Last administered on 11/09/16 20 :36; Admin Dose 2 TAB; Start 10/22/16 at 21:00 Lactulose (Enulose) 20 gm TID PRN PO CONSTIPATION Last administered on 13:32; Admin Dose 20 GM; Start 10/23/16 at 17:30 Clonidine HCl 1 patch 1 patch Q7D TRANSDERM Last administered on 11/07/16 08:34 ; Admin Dose 1 PATCH; Start 10/24/16 at 09:00 Meropenem (Merrem 500 Mg/ 100 ml (Pmx)) 100 ml @ 200 mls/hr Q24H IVPB Last administered on 11/09/16 20:34; Admin Dose 200 MLS/HR; Start 10/26/16 at 21:00 Sodium Biphosphate/ Sodium Phosphate (Fleet Enema) 133 ml DAILY PRN CO CONSTIPATION Last administered on 10/26/16 18:33; Admin Dose 133 ML; Start at 18:00 Naloxone HCl (Narcan) 0.2 mg Q2M PRN IV RR 8 BREATHS/MIN OR LESS; Start at 13:00 Oxycodone/ Acetaminophen (Percocet (5/ 325)) 2 tab Q4H PRN PO PAIN Last administered on 11/10/16 14:14; Admin Dose 2 TAB; Start 10/28/16 at 15:00 Insulin Glargine (Lantus) 4 unit DAILY@20 SC Last administered on 11/09/16 20: 31; Admin Dose 4 UNIT; Start 10/29/16 at 20:00 Benazepril HCl (Lotensin) 10 mg BID PO Last administered on 11/09/16 20:36; Admin Dose 10 MG; Start 10/29/16 at 21:00 Nitroglycerin (Nitroglycerin (Sl Tab) 0.4 Mg) 1 tab Q5M PRN SL CHEST PAIN; Start 11/01/16 at 22:30 Amlodipine Besylate (Norvasc) 5 mg DAILY PO Last administered on 11/09/16 09: 34; Admin Dose 5 MG; Start 11/04/16 at 09:00 Hydromorphone HCl (Dilaudid) 2 mg Q2H PRN IV PAIN Last administered on 09:27; Admin Dose 2 MG; Start 11/03/16 at 19:30 Apixaban (Eliquis) 2.5 mg BID PO Last administered on 11/10/16 09:25; Admin Dose 2.5 MG; Start 11/05/16 at 11:30 Docusate Sodium (Colace) 100 mg DAILY PO Last administered on 11/10/16 09:25; Admin Dose 100 MG; Start 11/07/16 at 14:30 OZZIE HERRERA MD Nov 10, 2016 16:14
--- NOTE | 2016-11-10 16:30 | CONS ---
Date/Time of Note Date/Time of Note DATE: 11/10/16 TIME: 16:30 Assessment/Plan Assessment/Plan Chief Complaint/Hosp Course SUBJECTIVE: The patient is alert, feels good, no fevers. INDWELLINGS: R upper thigh permacath. ANTIMICROBIALS: 1. Meropenem. 2. Zyvox. PHYSICAL EXAMINATION: GENERAL: This is a fragile well-developed elderly man who is alert, in no distress. HEENT: Head atraumatic, normocephalic. Sclerae anicteric. Buccal mucosa dry. NECK: Supple, trachea midline. CHEST: Rise symmetrical. Breath sounds diminished at the bases. HEART: S1, S2. ABDOMEN: Soft. Bowel tones present. EXTREMITIES: Left above-knee amputation stump ricarda intact. ASSESSMENT: 1. Resolving sepsis. 2. 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 3. Severe peripheral vascular disease status post again left above-knee amputation with infected vascular graft removal. 4. Right foot gangrene. 5. End-stage renal disease, hemodialysis dependent. 6. Diabetes. 7. Pulmonary embolism. 8. ALLERGY TO VANCOMYCIN. PLAN: The patient remains stable, will dc abx and observe DW dr Quintero Problems: Consultation Date/Type/Reason Admit Date/Time Oct 18, 2016 at 16:52 Type of Consultation: id Referring Provider: OZZIE HERRERA MD Exam/Review of Systems Vital Signs Vitals Vital Signs Date Time Temp Pulse Resp B/P Pulse Ox O2 Delivery O2 Flow Rate FiO2 11/10/16 16:25 73 11/10/16 12:21 98.7 20 162/70 100 11/09/16 01:32 21 11/08/16 16:00 Nasal Cannula 3 Intake and Output 11/09/16 11/09/16 11/10/16 15:00 23:00 07:00 Intake Total 500 ml 500 ml Output Total 3500 ml 250 ml Balance -3000 ml 250 ml Results Result Diagram: 11/10/16 0645 11/10/16 0645 Results 24 hrs Laboratory Tests Test 11/09/16 17:34 11/09/16 20:28 11/10/16 06:45 11/10/16 09:23 Bedside Glucose 74 150 124 White Blood Count 12.1 H Red Blood Count 2.83 L Hemoglobin 8.5 L Hematocrit 28.6 L Mean Corpuscular Volume 101.1 H Mean Corpuscular Hemoglobin 30.0 Mean Corpuscular Hemoglobin Concent 29.7 L Red Cell Distribution Width 18.5 H Platelet Count 297 Mean Platelet Volume 11.5 H Neutrophils % 66.0 Lymphocytes % 21.1 Monocytes % 10.7 Eosinophils % 1.2 Basophils % 0.3 Nucleated Red Blood Cells % 0.0 Neutrophils # 8.0 H Lymphocytes # 2.6 Monocytes # 1.3 H Eosinophils # 0.2 Basophils # 0.0 Nucleated Red Blood Cells # 0.0 Sodium Level 136 Potassium Level 6.0 H Chloride Level 103 Carbon Dioxide Level 24 Anion Gap 15 Blood Urea Nitrogen 69 H Creatinine 7.25 H Glucose Level 106 Calcium Level 8.0 L Magnesium Level 2.2 Test 11/10/16 11:32 Bedside Glucose 206 Medications Medications Current Medications Metoprolol Tartrate (Lopressor) 25 mg BID PO Last administered on 11/09/16 20: 36; Admin Dose 25 MG; Start 10/18/16 at 19:21 Hydralazine HCl (Apresoline) 10 mg Q4H PRN IV SBP>150 mm Hg Last administered on 10/27/16 20:38; Admin Dose 10 MG; Start 10/18/16 at 20:00 Albuterol (Ventolin Hfa) 2 puff Q8 INH Last administered on 11/10/16 14:14; Admin Dose 2 PUFF; Start 10/18/16 at 22:30 Famotidine (Pepcid) 20 mg DAILY PO Last administered on 11/10/16 09:25; Admin Dose 20 MG; Start 10/19/16 at 09:00 Ondansetron HCl (Zofran Inj) 4 mg Q6H PRN IV NAUSEA AND/OR VOMITING; Start at 22:30 Acetaminophen (Tylenol Tab) 650 mg Q6H PRN PO PAIN LEVEL 1-3 OR FEVER Last administered on 11/01/16 02:36; Admin Dose 650 MG; Start 10/18/16 at 22:30 Docusate Sodium (Colace) 100 mg Q12H PRN PO CONSTIPATION Last administered on 18:01; Admin Dose 100 MG; Start 10/18/16 at 22:30 Bisacodyl (Dulcolax Supp) 10 mg DAILY PRN CO CONSTIPATION Last administered on 10/26/16 07:04; Admin Dose 10 MG; Start 10/18/16 at 22:30 Diagnostic Test (Pha) (Accucheck) 1 ea 02 XX Last administered on 11/09/16 02: 03; Admin Dose 1 EA; Start 10/19/16 at 02:00 Miscellaneous Information 1 ea NOTE XX ; Start 10/18/16 at 22:30 Glucose (Glutose) 15 gm Q15M PRN PO DECREASED GLUCOSE; Start 10/18/16 at 22:30 Glucose (Glutose) 22.5 gm Q15M PRN PO DECREASED GLUCOSE; Start 10/18/16 at 22: 30 Dextrose (D50w Syringe) 25 ml Q15M PRN IV DECREASED GLUCOSE; Start 10/18/16 at 22:30 Dextrose (D50w Syringe) 50 ml Q15M PRN IV DECREASED GLUCOSE Last administered on 10/27/16 09:35; Admin Dose 50 ML; Start 10/18/16 at 22:30 Glucagon (Glucagen) 1 mg Q15M PRN IM DECREASED GLUCOSE; Start 10/18/16 at 22:30 Glucose (Glutose) 15 gm Q15M PRN BUCCAL DECREASED GLUCOSE; Start 10/18/16 at 22 :30 Linezolid (Zyvox) 600 mg BID PO Last administered on 11/10/16 09:25; Admin Dose 600 MG; Start 10/20/16 at 12:15 Aspirin (Halfprin) 81 mg DAILY PO Last administered on 11/10/16 09:25; Admin Dose 81 MG; Start 10/22/16 at 09:00 Lactobacillus Acidoph/Bulgaricus (Floranex) 1 tab BID PO Last administered on 09:25; Admin Dose 1 TAB; Start 10/22/16 at 21:00 Senna/Docusate Sodium (Senokot-S) 2 tab HS PO Last administered on 11/09/16 20 :36; Admin Dose 2 TAB; Start 10/22/16 at 21:00 Lactulose (Enulose) 20 gm TID PRN PO CONSTIPATION Last administered on 13:32; Admin Dose 20 GM; Start 10/23/16 at 17:30 Clonidine HCl 1 patch 1 patch Q7D TRANSDERM Last administered on 11/07/16 08:34 ; Admin Dose 1 PATCH; Start 10/24/16 at 09:00 Meropenem (Merrem 500 Mg/ 100 ml (Pmx)) 100 ml @ 200 mls/hr Q24H IVPB Last administered on 11/09/16 20:34; Admin Dose 200 MLS/HR; Start 10/26/16 at 21:00 Sodium Biphosphate/ Sodium Phosphate (Fleet Enema) 133 ml DAILY PRN CO CONSTIPATION Last administered on 10/26/16 18:33; Admin Dose 133 ML; Start at 18:00 Naloxone HCl (Narcan) 0.2 mg Q2M PRN IV RR 8 BREATHS/MIN OR LESS; Start at 13:00 Oxycodone/ Acetaminophen (Percocet (5/ 325)) 2 tab Q4H PRN PO PAIN Last administered on 11/10/16 14:14; Admin Dose 2 TAB; Start 10/28/16 at 15:00 Insulin Glargine (Lantus) 4 unit DAILY@20 SC Last administered on 11/09/16 20: 31; Admin Dose 4 UNIT; Start 10/29/16 at 20:00 Benazepril HCl (Lotensin) 10 mg BID PO Last administered on 11/09/16 20:36; Admin Dose 10 MG; Start 10/29/16 at 21:00 Nitroglycerin (Nitroglycerin (Sl Tab) 0.4 Mg) 1 tab Q5M PRN SL CHEST PAIN; Start 11/01/16 at 22:30 Amlodipine Besylate (Norvasc) 5 mg DAILY PO Last administered on 11/09/16 09: 34; Admin Dose 5 MG; Start 11/04/16 at 09:00 Hydromorphone HCl (Dilaudid) 2 mg Q2H PRN IV PAIN Last administered on 09:27; Admin Dose 2 MG; Start 11/03/16 at 19:30 Apixaban (Eliquis) 2.5 mg BID PO Last administered on 11/10/16 09:25; Admin Dose 2.5 MG; Start 11/05/16 at 11:30 Docusate Sodium (Colace) 100 mg DAILY PO Last administered on 11/10/16 09:25; Admin Dose 100 MG; Start 11/07/16 at 14:30 ISMAIL-ZADE,NERA [employer] Nov 10, 2016 16:30
[2016-11-10] MEDS: LACTULOSE 30ML CUP PO PRN (16:53)
--- NOTE | 2016-11-10 17:50 | CONS ---
Date/Time of Note Date/Time of Note DATE: 11/10/16 TIME: 17:49 Assessment/Plan Assessment/Plan Chief Complaint/Hosp Course IMPRESSION: 1. Preoperative evaluation prior to lower extremity vascular surgery, possible amputation.-Now s/p LLE vascular surgery with failed graft and now Post-op s/p LE amputation 2. Hypertension-Well controlled 3. Abnormal electrocardiogram, assess for acute coronary syndrome. 4. Dyslipidemia. 5. Peripheral arterial disease, s/p LE amputation 6. Lower extremity nonhealing ulceration of the toe. 7. PNA 8. End-stage renal disease on hemodialysis. 9. Anemia. 10. Leukocytosis. 11. Cardiomyopathy-LVEF 40-45%-negative trop x 3 since admit-mild CHF by cxr systolic acute on chronic 12. CHest [id number] now resolved. Trop negative x 2 post epsiode/EKG 10/29 with lateral TWI(no sig changes)-no recurrence 14. PE Recc: -Tele -Continue current ACEI/BB and follow BP closely -Local wound care/abx's and f/u cx data -Pain control -Continue ASA -HD for volume removal -Continue eliquis Problems: Consultation Date/Type/Reason Admit Date/Time Oct 18, 2016 at 16:52 Initial Consult Date 10/19/2016 Type of Consultation: Cardiology Reason for Consultation Pre-op/HTN Referring Provider: OZZIE HERRERA MD Exam/Review of Systems Vital Signs Vitals Vital Signs Date Time Temp Pulse Resp B/P Pulse Ox O2 Delivery O2 Flow Rate FiO2 11/10/16 16:39 98.7 74 19 146/67 99 11/09/16 01:32 21 11/08/16 16:00 Nasal Cannula 3 Intake and Output 11/09/16 11/09/16 11/10/16 15:00 23:00 07:00 Intake Total 500 ml 500 ml Output Total 3500 ml 250 ml Balance -3000 ml 250 ml Exam Review of Systems: CONSTITUTIONAL: No fevers, chills. PULMONARY: No sob CARDIOVASCULAR: No chest pain/palpitations GASTROINTESTINAL: No nausea/vomiting. GENITOURINARY: No hematuria/dysuria. MUSCULOSKELETAL: No myagias/arthalgias. PSYCHIATRIC: The patient denies depression. NEUROLOGIC: No weakness Constitutional: alert, oriented Psych: no complaints Head: normocephalic ENMT: mucosa pink and moist Neck: jvd, supple Respiratory: diminished breath sounds Cardiovascular: regular rate and rhythm Gastrointestinal: non-tender, soft Musculoskeletal: muscle tone Extremities: edema (none), other (s/p LE amputation) Neurological: other (No focal deficits) Results Result Diagram: 11/10/16 0645 11/10/16 0645 Results 24 hrs Laboratory Tests Test 11/09/16 20:28 11/10/16 06:45 11/10/16 09:23 11/10/16 11:32 Bedside Glucose 150 124 206 White Blood Count 12.1 H Red Blood Count 2.83 L Hemoglobin 8.5 L Hematocrit 28.6 L Mean Corpuscular Volume 101.1 H Mean Corpuscular Hemoglobin 30.0 Mean Corpuscular Hemoglobin Concent 29.7 L Red Cell Distribution Width 18.5 H Platelet Count 297 Mean Platelet Volume 11.5 H Neutrophils % 66.0 Lymphocytes % 21.1 Monocytes % 10.7 Eosinophils % 1.2 Basophils % 0.3 Nucleated Red Blood Cells % 0.0 Neutrophils # 8.0 H Lymphocytes # 2.6 Monocytes # 1.3 H Eosinophils # 0.2 Basophils # 0.0 Nucleated Red Blood Cells # 0.0 Sodium Level 136 Potassium Level 6.0 H Chloride Level 103 Carbon Dioxide Level 24 Anion Gap 15 Blood Urea Nitrogen 69 H Creatinine 7.25 H Glucose Level 106 Calcium Level 8.0 L Magnesium Level 2.2 Medications Medications Current Medications Metoprolol Tartrate (Lopressor) 25 mg BID PO Last administered on 11/09/16 20: 36; Admin Dose 25 MG; Start 10/18/16 at 19:21 Hydralazine HCl (Apresoline) 10 mg Q4H PRN IV SBP>150 mm Hg Last administered on 10/27/16 20:38; Admin Dose 10 MG; Start 10/18/16 at 20:00 Albuterol (Ventolin Hfa) 2 puff Q8 INH Last administered on 11/10/16 14:14; Admin Dose 2 PUFF; Start 10/18/16 at 22:30 Famotidine (Pepcid) 20 mg DAILY PO Last administered on 11/10/16 09:25; Admin Dose 20 MG; Start 10/19/16 at 09:00 Ondansetron HCl (Zofran Inj) 4 mg Q6H PRN IV NAUSEA AND/OR VOMITING; Start at 22:30 Acetaminophen (Tylenol Tab) 650 mg Q6H PRN PO PAIN LEVEL 1-3 OR FEVER Last administered on 11/01/16 02:36; Admin Dose 650 MG; Start 10/18/16 at 22:30 Docusate Sodium (Colace) 100 mg Q12H PRN PO CONSTIPATION Last administered on 18:01; Admin Dose 100 MG; Start 10/18/16 at 22:30 Bisacodyl (Dulcolax Supp) 10 mg DAILY PRN [place] CONSTIPATION Last administered on 10/26/16 07:04; Admin Dose 10 MG; Start 10/18/16 at 22:30 Diagnostic Test (Pha) (Accucheck) 1 ea 02 XX Last administered on 11/09/16 02: 03; Admin Dose 1 EA; Start 10/19/16 at 02:00 Miscellaneous Information 1 ea NOTE XX ; Start 10/18/16 at 22:30 Glucose (Glutose) 15 gm Q15M PRN PO DECREASED GLUCOSE; Start 10/18/16 at 22:30 Glucose (Glutose) 22.5 gm Q15M PRN PO DECREASED GLUCOSE; Start 10/18/16 at 22: 30 Dextrose (D50w Syringe) 25 ml Q15M PRN IV DECREASED GLUCOSE; Start 10/18/16 at 22:30 Dextrose (D50w Syringe) 50 ml Q15M PRN IV DECREASED GLUCOSE Last administered on 10/27/16 09:35; Admin Dose 50 ML; Start 10/18/16 at 22:30 Glucagon (Glucagen) 1 mg Q15M PRN IM DECREASED GLUCOSE; Start 10/18/16 at 22:30 Glucose (Glutose) 15 gm Q15M PRN BUCCAL DECREASED GLUCOSE; Start 10/18/16 at 22 :30 Aspirin (Halfprin) 81 mg DAILY PO Last administered on 11/10/16 09:25; Admin Dose 81 MG; Start 10/22/16 at 09:00 Lactobacillus Acidoph/Bulgaricus (Floranex) 1 tab BID PO Last administered on 09:25; Admin Dose 1 TAB; Start 10/22/16 at 21:00 Senna/Docusate Sodium (Senokot-S) 2 tab HS PO Last administered on 11/09/16 20 :36; Admin Dose 2 TAB; Start 10/22/16 at 21:00 Lactulose (Enulose) 20 gm TID PRN PO CONSTIPATION Last administered on 16:53; Admin Dose 20 GM; Start 10/23/16 at 17:30 Clonidine HCl (Catapres-Tts 1 Patch) 1 patch Q7D TRANSDERM Last administered on 11/07/16 08:34; Admin Dose 1 PATCH; Start 10/24/16 at 09:00 Sodium Biphosphate/ Sodium Phosphate (Fleet Enema) 133 ml DAILY PRN [place] CONSTIPATION Last administered on 10/26/16 18:33; Admin Dose 133 ML; Start at 18:00 Naloxone HCl (Narcan) 0.2 mg Q2M PRN IV RR 8 BREATHS/MIN OR LESS; Start at 13:00 Oxycodone/ Acetaminophen (Percocet (5/ 325)) 2 tab Q4H PRN PO PAIN Last administered on 11/10/16 14:14; Admin Dose 2 TAB; Start 10/28/16 at 15:00 Insulin Glargine (Lantus) 4 unit DAILY@20 SC Last administered on 11/09/16 20: 31; Admin Dose 4 UNIT; Start 10/29/16 at 20:00 Benazepril HCl (Lotensin) 10 mg BID PO Last administered on 11/09/16 20:36; Admin Dose 10 MG; Start 10/29/16 at 21:00 Nitroglycerin (Nitroglycerin (Sl Tab) 0.4 Mg) 1 tab Q5M PRN SL CHEST PAIN; Start 11/01/16 at 22:30 Amlodipine Besylate (Norvasc) 5 mg DAILY PO Last administered on 11/09/16 09: 34; Admin Dose 5 MG; Start 11/04/16 at 09:00 Hydromorphone HCl (Dilaudid) 2 mg Q2H PRN IV PAIN Last administered on 16:53; Admin Dose 2 MG; Start 11/03/16 at 19:30 Apixaban (Eliquis) 2.5 mg BID PO Last administered on 11/10/16 09:25; Admin Dose 2.5 MG; Start 11/05/16 at 11:30 Docusate Sodium (Colace) 100 mg DAILY PO Last administered on 11/10/16t 09:25; Admin Dose 100 MG; Start 11/07/16 at 14:30 KAYLEE WILSON Nov 10, 2016 17:50
[2016-11-10] MEDS: INSULIN GLARGINE [LANtus] 3 ML PEN SC SCH (20:16)
[2016-11-10] MEDS: SENNA/DOCUSATE NA (8.6MG/50MG) TAB PO SCH (20:17)
[2016-11-11] VITALS (20 sets, daily range): BP systolic 109–149; BP diastolic 60–78; PULSE 63–78; RESP 18–20
[2016-11-11] MEDS: HYDROmorphONE 2 MG/ML SYG IV PRN ×5 (01:58→20:54)
[2016-11-11] MEDS: ACCU-CHEK XX SCH (02:00)
[2016-11-11] MEDS: ALBUTEROL HFA 8 GM INHALER INH SCH ×3 (06:16→20:47)
[2016-11-11 07:23] LABS: ADD SCAN DIFF NO
[2016-11-11 07:25] LABS: BASOPHILS % 0.3 % (0.0-2.0); EOSINOPHILS # 0.2 10^3/ul (0.0-0.5); EOSINOPHILS % 1.5 % (0.0-7.0); HEMATOCRIT 29.6 % (42.0-52.0); HEMOGLOBIN 8.8 g/dl (14.0-18.0); LYMPHOCYTES # 2.7 10^3/ul (0.8-2.9); LYMPHOCYTES % 22.8 % (15.0-51.0); MEAN CORPUSCULAR HEMOGLOBIN 30.7 pg (29.0-33.0); MEAN CORPUSCULAR HGB CONC 29.7 g/dl (32.0-37.0); MEAN CORPUSCULAR VOLUME 103.1 fl (82.0-101.0); MONOCYTE # 1.1 10^3/ul (0.3-0.9); MONOCYTES % 9.6 % (0.0-11.0); NEUTROPHIL # 7.6 10^3/ul (1.6-7.5); PLATELET COUNT 305 10^3/UL (140-415); RED BLOOD COUNT 2.87 10^6/ul (4.70-6.10); RED CELL DISTRIBUTION WIDTH 18.4 % (11.5-14.5); WHITE BLOOD COUNT 11.7 10^3/ul (4.8-10.8)
[2016-11-11 07:34] LABS: CREATININE 6.21 mg/dl (0.61-1.24)
[2016-11-11 07:35] LABS: CALCIUM 8.3 mg/dl (8.4-10.2); MAGNESIUM 2.2 mg/dl (1.7-2.5)
[2016-11-11] MEDS: INSULIN ASPART [NOVOLOG] 3 ML PEN SC SCH ×4 (07:48→20:46)
--- NOTE | 2016-11-11 08:46 | CONS ---
Date/Time of Note Date/Time of Note DATE: 11/11/16 TIME: 08:43 Assessment/Plan Assessment/Plan Additional Assessment/Plan 1. 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 Failed redo bypass.post-surgical intervention with thrombectomy, exploration of the above knee popliteal graft and debridement of left lower extremity wound with wound VAC application on 10/19/2016.- Not improving, s/p Left AKA by vascular surgery on 11/03/16 2. Severe stenosis of the right distal superficial femoral artery and occluded right posterior tibial artery. 3. End-stage renal disease on hemodialysis Tuesday, , Tuesday. 4. Accelerated hypertension. 5. Hyperlipidemia. 6. History of hypertension with peripheral arterial disease. 7. History of peripheral arterial disease status post left lower extremity bypass in September 2016. 8. hyperkalemia with K 6.0 s/p HD 2 days in a row PLAN: s/p New groin permacath, K 6.0 yesterday, had a HD yesterday, he is currently getting HD now then he will be on TTS Schedule IV abx and wound care plan as per PMD, and vascular surgery let us know if pt needs IV abx in HD unit upon discharge will follow up Consultation Date/Type/Reason Admit Date/Time Oct 18, 2016 at 16:52 Initial Consult Date 10/18/2016 Type of Consultation: NEPHROLOGY Referring Provider: OZZIE HERRERA MD 24 HR Interval Summary Free Text/Dictation Bp stable, Currently getting HD, c/o dizziness Exam/Review of Systems Vital Signs Vitals Vital Signs Date Time Temp Pulse Resp B/P Pulse Ox O2 Delivery O2 Flow Rate FiO2 11/11/16 08:30 72 11/11/16 07:56 98.8 19 139/63 97 11/09/16 01:32 21 11/08/16 16:00 Nasal Cannula 3 Intake and Output 11/10/16 11/10/16 11/11/16 15:00 23:00 07:00 Intake Total 500 ml 700 ml 200 ml Output Total 1500 ml 200 ml Balance -1000 ml 500 ml 200 ml Results Result Diagram: 11/11/16 0630 11/11/16 0630 Results 24 hrs Laboratory Tests Test 11/10/16 09:23 11/10/16 11:32 11/10/16 17:53 11/10/16 20:08 Bedside Glucose 124 206 88 177 Test 11/11/16 06:30 11/11/16 07:43 White Blood Count 11.7 H Red Blood Count 2.87 L Hemoglobin 8.8 L Hematocrit 29.6 L Mean Corpuscular Volume 103.1 H Mean Corpuscular Hemoglobin 30.7 Mean Corpuscular Hemoglobin Concent 29.7 L Red Cell Distribution Width 18.4 H Platelet Count 305 Mean Platelet Volume 11.0 H Neutrophils % 65.0 Lymphocytes % 22.8 Monocytes % 9.6 Eosinophils % 1.5 Basophils % 0.3 Nucleated Red Blood Cells % 0.0 Neutrophils # 7.6 H Lymphocytes # 2.7 Monocytes # 1.1 H Eosinophils # 0.2 Basophils # 0.0 Nucleated Red Blood Cells # 0.0 Sodium Level 143 Potassium Level 5.0 Chloride Level 102 Carbon Dioxide Level 26 Anion Gap 20 H Blood Urea Nitrogen 54 H Creatinine 6.21 H Glucose Level 87 Calcium Level 8.3 L Magnesium Level 2.2 Bedside Glucose 92 Medications Medications Current Medications Metoprolol Tartrate (Lopressor) 25 mg BID PO Last administered on 11/10/16 20: 17; Admin Dose 25 MG; Start 10/18/16 at 19:21 Hydralazine HCl (Apresoline) 10 mg Q4H PRN IV SBP>150 mm Hg Last administered on 10/27/16 20:38; Admin Dose 10 MG; Start 10/18/16 at 20:00 Albuterol (Ventolin Hfa) 2 puff Q8 INH Last administered on 11/11/16 06:16; Admin Dose 2 PUFF; Start 10/18/16 at 22:30 Famotidine (Pepcid) 20 mg DAILY PO Last administered on 11/10/16 09:25; Admin Dose 20 MG; Start 10/19/16 at 09:00 Ondansetron HCl (Zofran Inj) 4 mg Q6H PRN IV NAUSEA AND/OR VOMITING; Start at 22:30 Acetaminophen (Tylenol Tab) 650 mg Q6H PRN PO PAIN LEVEL 1-3 OR FEVER Last administered on 11/01/16 02:36; Admin Dose 650 MG; Start 10/18/16 at 22:30 Docusate Sodium (Colace) 100 mg Q12H PRN PO CONSTIPATION Last administered on 18:01; Admin Dose 100 MG; Start 10/18/16 at 22:30 Bisacodyl (Dulcolax Supp) 10 mg DAILY PRN [place] CONSTIPATION Last administered on 10/26/16 07:04; Admin Dose 10 MG; Start 10/18/16 at 22:30 Diagnostic Test (Pha) (Accucheck) 1 ea 02 XX Last administered on 11/09/16 02: 03; Admin Dose 1 EA; Start 10/19/16 at 02:00 Miscellaneous Information 1 ea NOTE XX ; Start 10/18/16 at 22:30 Glucose (Glutose) 15 gm Q15M PRN PO DECREASED GLUCOSE; Start 10/18/16 at 22:30 Glucose (Glutose) 22.5 gm Q15M PRN PO DECREASED GLUCOSE; Start 10/18/16 at 22: 30 Dextrose (D50w Syringe) 25 ml Q15M PRN IV DECREASED GLUCOSE; Start 10/18/16 at 22:30 Dextrose (D50w Syringe) 50 ml Q15M PRN IV DECREASED GLUCOSE Last administered on 10/27/16 09:35; Admin Dose 50 ML; Start 10/18/16 at 22:30 Glucagon (Glucagen) 1 mg Q15M PRN IM DECREASED GLUCOSE; Start 10/18/16 at 22:30 Glucose (Glutose) 15 gm Q15M PRN BUCCAL DECREASED GLUCOSE; Start 10/18/16 at 22 :30 Aspirin (Halfprin) 81 mg DAILY PO Last administered on 11/10/16 09:25; Admin Dose 81 MG; Start 10/22/16 at 09:00 Lactobacillus Acidoph/Bulgaricus (Floranex) 1 tab BID PO Last administered on 20:17; Admin Dose 1 TAB; Start 10/22/16 at 21:00 Senna/Docusate Sodium (Senokot-S) 2 tab HS PO Last administered on 11/10/16 20 :17; Admin Dose 2 TAB; Start 10/22/16 at 21:00 Lactulose (Enulose) 20 gm TID PRN PO CONSTIPATION Last administered on 16:53; Admin Dose 20 GM; Start 10/23/16 at 17:30 Clonidine HCl (Catapres-Tts 1 Patch) 1 patch Q7D TRANSDERM Last administered on 11/07/16 08:34; Admin Dose 1 PATCH; Start 10/24/16 at 09:00 Sodium Biphosphate/ Sodium Phosphate (Fleet Enema) 133 ml DAILY PRN IN CONSTIPATION Last administered on 10/26/16 18:33; Admin Dose 133 ML; Start at 18:00 Naloxone HCl (Narcan) 0.2 mg Q2M PRN IV RR 8 BREATHS/MIN OR LESS; Start at 13:00 Oxycodone/ Acetaminophen (Percocet (5/ 325)) 2 tab Q4H PRN PO PAIN Last administered on 11/10/16 14:14; Admin Dose 2 TAB; Start 10/28/16 at 15:00 Insulin Glargine (Lantus) 4 unit DAILY@20 SC Last administered on 11/10/16 20: 16; Admin Dose 4 UNIT; Start 10/29/16 at 20:00 Benazepril HCl (Lotensin) 10 mg BID PO Last administered on 11/10/16 20:17; Admin Dose 10 MG; Start 10/29/16 at 21:00 Nitroglycerin (Nitroglycerin (Sl Tab) 0.4 Mg) 1 tab Q5M PRN SL CHEST PAIN; Start 11/01/16 at 22:30 Amlodipine Besylate (Norvasc) 5 mg DAILY PO Last administered on 11/09/16 09: 34; Admin Dose 5 MG; Start 11/04/16 at 09:00 Hydromorphone HCl (Dilaudid) 2 mg Q2H PRN IV PAIN Last administered on 07:45; Admin Dose 2 MG; Start 11/03/16 at 19:30 Apixaban (Eliquis) 2.5 mg BID PO Last administered on 11/10/16 20:16; Admin Dose 2.5 MG; Start 11/05/16 at 11:30 Docusate Sodium (Colace) 100 mg DAILY PO Last administered on 11/10/16 09:25; Admin Dose 100 MG; Start 11/07/16 at 14:30 LISA MERRITT MD Nov 11, 2016 08:46
[2016-11-11] MEDS: DOCUSATE SODIUM 100 MG CAP PO SCH (09:20)
[2016-11-11] MEDS: APIXABAN 5 MG TABLET PO SCH ×2 (09:21→20:46)
[2016-11-11] MEDS: FAMOTIDINE 20 MG TAB PO SCH (09:21)
[2016-11-11] MEDS: METOPROLOL 25 MG TAB PO SCH ×2 (09:21→20:46)
[2016-11-11] MEDS: LACTOBACILLUS CHEW TAB PO SCH ×2 (09:21→20:46)
[2016-11-11] MEDS: ASPIRIN (EC) 81 MG TAB PO SCH (09:21)
[2016-11-11] MEDS: BENAZEPRIL 10 MG TAB PO SCH ×2 (09:22→20:46)
[2016-11-11] MEDS: AMLODIPINE 5 MG TAB PO SCH (09:22)
--- NOTE | 2016-11-11 13:38 | CONS ---
Date/Time of Note Date/Time of Note DATE: 11/11/16 TIME: 13:34 Assessment/Plan Assessment/Plan Chief Complaint/Hosp Course IMPRESSION: 1. Preoperative evaluation prior to lower extremity vascular surgery, possible amputation.-Now s/p LLE vascular surgery with failed graft and now Post-op s/p LE amputation 2. Hypertension-Well controlled 3. Abnormal electrocardiogram, assess for acute coronary syndrome. 4. Dyslipidemia. 5. Peripheral arterial disease, s/p LE amputation 6. Lower extremity nonhealing ulceration of the toe. 7. PNA 8. End-stage renal disease on hemodialysis. 9. Anemia. 10. Leukocytosis. 11. Cardiomyopathy-LVEF 40-45%-negative trop x 3 since admit-mild CHF by cxr systolic acute on chronic 12. CHest [id number]-[id number] now resolved. Trop negative x 2 post epsiode/EKG 10/29 with lateral TWI(no sig changes)-no recurrence 14. PE Recc: -Tele -Continue current ACEI/BB and follow BP closely -Local wound care/abx's and f/u cx data -Pain control -Continue ASA -HD for volume removal -Continue eliquis Problems: Consultation Date/Type/Reason Admit Date/Time Oct 18, 2016 at 16:52 Initial Consult Date 10/19/2016 Type of Consultation: Cardiology Reason for Consultation cardiomyopathy Referring Provider: OZZIE HERRERA MD Exam/Review of Systems Vital Signs Vitals Vital Signs Date Time Temp Pulse Resp B/P Pulse Ox O2 Delivery O2 Flow Rate FiO2 11/11/16 12:09 78 11/11/16 12:04 98.9 20 145/67 98 11/09/16 01:32 21 11/08/16 16:00 Nasal Cannula 3 Intake and Output 11/10/16 11/10/16 11/11/16 15:00 23:00 07:00 Intake Total 500 ml 700 ml 200 ml Output Total 1500 ml 200 ml Balance -1000 ml 500 ml 200 ml Exam Review of Systems: CONSTITUTIONAL: No fevers, chills. PULMONARY: No sob CARDIOVASCULAR: No chest pain/palpitations GASTROINTESTINAL: No nausea/vomiting. GENITOURINARY: No hematuria/dysuria. MUSCULOSKELETAL: No myagias/arthalgias. PSYCHIATRIC: The patient denies depression. NEUROLOGIC: No weakness Constitutional: alert Psych: no complaints Head: normocephalic ENMT: mucosa pink and moist Neck: supple Respiratory: diminished breath sounds Cardiovascular: regular rate and rhythm Gastrointestinal: non-tender, soft Musculoskeletal: muscle tone Extremities: edema, other (s/p LE amputation) Neurological: other Results Result Diagram: 11/11/1630 11/11/16 0630 Results 24 hrs Laboratory Tests Test 11/10/16 17:53 11/10/16 20:08 11/11/16 06:30 11/11/16 07:43 Bedside Glucose 88 177 92 White Blood Count 11.7 H Red Blood Count 2.87 L Hemoglobin 8.8 L Hematocrit 29.6 L Mean Corpuscular Volume 103.1 H Mean Corpuscular Hemoglobin 30.7 Mean Corpuscular Hemoglobin Concent 29.7 L Red Cell Distribution Width 18.4 H Platelet Count 305 Mean Platelet Volume 11.0 H Neutrophils % 65.0 Lymphocytes % 22.8 Monocytes % 9.6 Eosinophils % 1.5 Basophils % 0.3 Nucleated Red Blood Cells % 0.0 Neutrophils # 7.6 H Lymphocytes # 2.7 Monocytes # 1.1 H Eosinophils # 0.2 Basophils # 0.0 Nucleated Red Blood Cells # 0.0 Sodium Level 143 Potassium Level 5.0 Chloride Level 102 Carbon Dioxide Level 26 Anion Gap 20 H Blood Urea Nitrogen 54 H Creatinine 6.21 H Glucose Level 87 Calcium Level 8.3 L Magnesium Level 2.2 Test 11/11/16 11:50 Bedside Glucose 175 Medications Medications Current Medications Metoprolol Tartrate (Lopressor) 25 mg BID PO Last administered on 11/11/16 09: 21; Admin Dose 25 MG; Start 10/18/16 at 19:21 Hydralazine HCl (Apresoline) 10 mg Q4H PRN IV SBP>150 mm Hg Last administered on 10/27/16 20:38; Admin Dose 10 MG; Start 10/18/16 at 20:00 Albuterol (Ventolin Hfa) 2 puff Q8 INH Last administered on 11/11/16 06:16; Admin Dose 2 PUFF; Start 10/18/16 at 22:30 Famotidine (Pepcid) 20 mg DAILY PO Last administered on 11/11/16 09:21; Admin Dose 20 MG; Start 10/19/16 at 09:00 Ondansetron HCl (Zofran Inj) 4 mg Q6H PRN IV NAUSEA AND/OR VOMITING; Start at 22:30 Acetaminophen (Tylenol Tab) 650 mg Q6H PRN PO PAIN LEVEL 1-3 OR FEVER Last administered on 11/01/16 02:36; Admin Dose 650 MG; Start 10/18/16 at 22:30 Docusate Sodium (Colace) 100 mg Q12H PRN PO CONSTIPATION Last administered on 18:01; Admin Dose 100 MG; Start 10/18/16 at 22:30 Bisacodyl (Dulcolax Supp) 10 mg DAILY PRN [place] CONSTIPATION Last administered on 10/26/16 07:04; Admin Dose 10 MG; Start 10/18/16 at 22:30 Diagnostic Test (Pha) (Accucheck) 1 ea 02 XX Last administered on 11/09/16 02: 03; Admin Dose 1 EA; Start 10/19/16 at 02:00 Miscellaneous Information 1 ea NOTE XX ; Start 10/18/16 at 22:30 Glucose (Glutose) 15 gm Q15M PRN PO DECREASED GLUCOSE; Start 10/18/16 at 22:30 Glucose (Glutose) 22.5 gm Q15M PRN PO DECREASED GLUCOSE; Start 10/18/16 at 22: 30 Dextrose (D50w Syringe) 25 ml Q15M PRN IV DECREASED GLUCOSE; Start 10/18/16 at 22:30 Dextrose (D50w Syringe) 50 ml Q15M PRN IV DECREASED GLUCOSE Last administered on 10/27/16 09:35; Admin Dose 50 ML; Start 10/18/16 at 22:30 Glucagon (Glucagen) 1 mg Q15M PRN IM DECREASED GLUCOSE; Start 10/18/16 at 22:30 Glucose (Glutose) 15 gm Q15M PRN BUCCAL DECREASED GLUCOSE; Start 10/18/16 at 22 :30 Aspirin (Halfprin) 81 mg DAILY PO Last administered on 11/11/16 09:21; Admin Dose 81 MG; Start 10/22/16 at 09:00 Lactobacillus Acidoph/Bulgaricus (Floranex) 1 tab BID PO Last administered on 09:21; Admin Dose 1 TAB; Start 10/22/16 at 21:00 Senna/Docusate Sodium (Senokot-S) 2 tab HS PO Last administered on 11/10/16 20 :17; Admin Dose 2 TAB; Start 10/22/16 at 21:00 Lactulose (Enulose) 20 gm TID PRN PO CONSTIPATION Last administered on 16:53; Admin Dose 20 GM; Start 10/23/16 at 17:30 Clonidine HCl (Catapres-Tts 1 Patch) 1 patch Q7D TRANSDERM Last administered on 11/07/16 08:34; Admin Dose 1 PATCH; Start 10/24/16 at 09:00 Sodium Biphosphate/ Sodium Phosphate (Fleet Enema) 133 ml DAILY PRN [place] CONSTIPATION Last administered on 10/26/16 18:33; Admin Dose 133 ML; Start at 18:00 Naloxone HCl (Narcan) 0.2 mg Q2M PRN IV RR 8 BREATHS/MIN OR LESS; Start at 13:00 Oxycodone/ Acetaminophen (Percocet (5/ 325)) 2 tab Q4H PRN PO PAIN Last administered on 11/10/16 14:14; Admin Dose 2 TAB; Start 10/28/16 at 15:00 Insulin Glargine (Lantus) 4 unit DAILY@20 SC Last administered on 11/10/16 20: 16; Admin Dose 4 UNIT; Start 10/29/16 at 20:00 Benazepril HCl (Lotensin) 10 mg BID PO Last administered on 11/11/16 09:22; Admin Dose 10 MG; Start 10/29/16 at 21:00 Nitroglycerin (Nitroglycerin (Sl Tab) 0.4 Mg) 1 tab Q5M PRN SL CHEST PAIN; Start 11/01/16 at 22:30 Amlodipine Besylate (Norvasc) 5 mg DAILY PO Last administered on 11/11/16 09: 22; Admin Dose 5 MG; Start 11/04/16 at 09:00 Hydromorphone HCl (Dilaudid) 2 mg Q2H PRN IV PAIN Last administered on 12:03; Admin Dose 2 MG; Start 11/03/16 at 19:30 Apixaban (Eliquis) 2.5 mg BID PO Last administered on 11/11/16 09:21; Admin Dose 2.5 MG; Start 11/05/16 at 11:30 Docusate Sodium (Colace) 100 mg DAILY PO Last administered on 11/11/16t 09:20; Admin Dose 100 MG; Start 11/07/16 at 14:30 KAYLEE WILSON Nov 11, 2016 13:38
--- NOTE | 2016-11-11 15:05 | CONS ---
Date/Time of Note Date/Time of Note DATE: 11/11/16 TIME: 15:04 Assessment/Plan Assessment/Plan Chief Complaint/Hosp Course SUBJECTIVE: The patient is alert, feels good, no fevers. INDWELLINGS: R upper thigh permacath. PHYSICAL EXAMINATION: GENERAL: This is a fragile well-developed elderly man who is alert, in no distress. HEENT: Head atraumatic, normocephalic. Sclerae anicteric. Buccal mucosa dry. NECK: Supple, trachea midline. CHEST: Rise symmetrical. Breath sounds diminished at the bases. HEART: S1, S2. ABDOMEN: Soft. Bowel tones present. EXTREMITIES: Left above-knee amputation stump ricarda intact. ASSESSMENT: 1. Resolving sepsis. 2. 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 3. Severe peripheral vascular disease status post again left above-knee amputation with infected vascular graft removal. 4. Right foot gangrene. 5. End-stage renal disease, hemodialysis dependent. 6. Diabetes. 7. Pulmonary embolism. 8. ALLERGY TO VANCOMYCIN. PLAN: The patient remains stable, off abx, pending dc DW pt/family Problems: Consultation Date/Type/Reason Admit Date/Time Oct 18, 2016 at 16:52 Type of Consultation: id Referring Provider: OZZIE HERRERA MD Exam/Review of Systems Vital Signs Vitals Vital Signs Date Time Temp Pulse Resp B/P Pulse Ox O2 Delivery O2 Flow Rate FiO2 11/11/16 12:09 78 11/11/16 12:04 98.9 20 145/67 98 11/09/16 01:32 21 11/08/16 16:00 Nasal Cannula 3 Intake and Output 11/10/16 11/10/16 11/11/16 15:00 23:00 07:00 Intake Total 500 ml 700 ml 200 ml Output Total 1500 ml 200 ml Balance -1000 ml 500 ml 200 ml Results Result Diagram: 11/11/16 0630 11/11/16 0630 Results 24 hrs Laboratory Tests Test 11/10/16 17:53 11/10/16 20:08 11/11/16 06:30 11/11/16 07:43 Bedside Glucose 88 177 92 White Blood Count 11.7 H Red Blood Count 2.87 L Hemoglobin 8.8 L Hematocrit 29.6 L Mean Corpuscular Volume 103.1 H Mean Corpuscular Hemoglobin 30.7 Mean Corpuscular Hemoglobin Concent 29.7 L Red Cell Distribution Width 18.4 H Platelet Count 305 Mean Platelet Volume 11.0 H Neutrophils % 65.0 Lymphocytes % 22.8 Monocytes % 9.6 Eosinophils % 1.5 Basophils % 0.3 Nucleated Red Blood Cells % 0.0 Neutrophils # 7.6 H Lymphocytes # 2.7 Monocytes # 1.1 H Eosinophils # 0.2 Basophils # 0.0 Nucleated Red Blood Cells # 0.0 Sodium Level 143 Potassium Level 5.0 Chloride Level 102 Carbon Dioxide Level 26 Anion Gap 20 H Blood Urea Nitrogen 54 H Creatinine 6.21 H Glucose Level 87 Calcium Level 8.3 L Magnesium Level 2.2 Test 11/11/16 11:50 Bedside Glucose 175 Medications Medications Current Medications Metoprolol Tartrate (Lopressor) 25 mg BID PO Last administered on 11/11/16 09: 21; Admin Dose 25 MG; Start 10/18/16 at 19:21 Hydralazine HCl (Apresoline) 10 mg Q4H PRN IV SBP>150 mm Hg Last administered on 10/27/16 20:38; Admin Dose 10 MG; Start 10/18/16 at 20:00 Albuterol (Ventolin Hfa) 2 puff Q8 INH Last administered on 11/11/16 06:16; Admin Dose 2 PUFF; Start 10/18/16 at 22:30 Famotidine (Pepcid) 20 mg DAILY PO Last administered on 11/11/16 09:21; Admin Dose 20 MG; Start 10/19/16 at 09:00 Ondansetron HCl (Zofran Inj) 4 mg Q6H PRN IV NAUSEA AND/OR VOMITING; Start at 22:30 Acetaminophen (Tylenol Tab) 650 mg Q6H PRN PO PAIN LEVEL 1-3 OR FEVER Last administered on 11/01/16 02:36; Admin Dose 650 MG; Start 10/18/16 at 22:30 Docusate Sodium (Colace) 100 mg Q12H PRN PO CONSTIPATION Last administered on 18:01; Admin Dose 100 MG; Start 10/18/16 at 22:30 Bisacodyl (Dulcolax Supp) 10 mg DAILY PRN [place] CONSTIPATION Last administered on 10/26/16 07:04; Admin Dose 10 MG; Start 10/18/16 at 22:30 Diagnostic Test (Pha) (Accucheck) 1 ea 02 XX Last administered on 11/09/16 02: 03; Admin Dose 1 EA; Start 10/19/16 at 02:00 Miscellaneous Information 1 ea NOTE XX ; Start 10/18/16 at 22:30 Glucose (Glutose) 15 gm Q15M PRN PO DECREASED GLUCOSE; Start 10/18/16 at 22:30 Glucose (Glutose) 22.5 gm Q15M PRN PO DECREASED GLUCOSE; Start 10/18/16 at 22: 30 Dextrose (D50w Syringe) 25 ml Q15M PRN IV DECREASED GLUCOSE; Start 10/18/16 at 22:30 Dextrose (D50w Syringe) 50 ml Q15M PRN IV DECREASED GLUCOSE Last administered on 10/27/16 09:35; Admin Dose 50 ML; Start 10/18/16 at 22:30 Glucagon (Glucagen) 1 mg Q15M PRN IM DECREASED GLUCOSE; Start 10/18/16 at 22:30 Glucose (Glutose) 15 gm Q15M PRN BUCCAL DECREASED GLUCOSE; Start 10/18/16 at 22 :30 Aspirin (Halfprin) 81 mg DAILY PO Last administered on 11/11/16 09:21; Admin Dose 81 MG; Start 10/22/16 at 09:00 Lactobacillus Acidoph/Bulgaricus (Floranex) 1 tab BID PO Last administered on 09:21; Admin Dose 1 TAB; Start 10/22/16 at 21:00 Senna/Docusate Sodium (Senokot-S) 2 tab HS PO Last administered on 11/10/16 20 :17; Admin Dose 2 TAB; Start 10/22/16 at 21:00 Lactulose (Enulose) 20 gm TID PRN PO CONSTIPATION Last administered on 16:53; Admin Dose 20 GM; Start 10/23/16 at 17:30 Clonidine HCl (Catapres-Tts 1 Patch) 1 patch Q7D TRANSDERM Last administered on 11/07/16 08:34; Admin Dose 1 PATCH; Start 10/24/16 at 09:00 Sodium Biphosphate/ Sodium Phosphate (Fleet Enema) 133 ml DAILY PRN [place] CONSTIPATION Last administered on 10/26/16 18:33; Admin Dose 133 ML; Start at 18:00 Naloxone HCl (Narcan) 0.2 mg Q2M PRN IV RR 8 BREATHS/MIN OR LESS; Start at 13:00 Oxycodone/ Acetaminophen (Percocet (5/ 325)) 2 tab Q4H PRN PO PAIN Last administered on 11/10/16 14:14; Admin Dose 2 TAB; Start 10/28/16 at 15:00 Insulin Glargine (Lantus) 4 unit DAILY@20 SC Last administered on 11/10/16 20: 16; Admin Dose 4 UNIT; Start 10/29/16 at 20:00 Benazepril HCl (Lotensin) 10 mg BID PO Last administered on 11/11/16 09:22; Admin Dose 10 MG; Start 10/29/16 at 21:00 Nitroglycerin (Nitroglycerin (Sl Tab) 0.4 Mg) 1 tab Q5M PRN SL CHEST PAIN; Start 11/01/16 at 22:30 Amlodipine Besylate (Norvasc) 5 mg DAILY PO Last administered on 11/11/16 09: 22; Admin Dose 5 MG; Start 11/04/16 at 09:00 Hydromorphone HCl (Dilaudid) 2 mg Q2H PRN IV PAIN Last administered on 12:03; Admin Dose 2 MG; Start 11/03/16 at 19:30 Apixaban (Eliquis) 2.5 mg BID PO Last administered on 11/11/16 09:21; Admin Dose 2.5 MG; Start 11/05/16 at 11:30 Docusate Sodium (Colace) 100 mg DAILY PO Last administered on 11/11/16 09:20; Admin Dose 100 MG; Start 11/07/16 at 14:30 DARLENE MCKEE NP Nov 11, 2016 15:04
--- NOTE | 2016-11-11 15:55 | PN ---
Date/Time of Note Date/Time of Note DATE: 11/11/16 TIME: 15:54 Assessment/Plan VTE Prophylaxis VTE Prophylaxis Intervention: other Lines/Catheters IV Catheter Type (from Nrs): [facility] Urinary Cath still in place: No Assessment/Plan Chief Complaint/Hosp Course Assessment and plan 1. 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 Patient does have history of bypass on area that had thrombosed. 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 Also noted with right lower extremity gangrene. 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 Continue with analgesics. wound care per vascular surgeon Pain management physician consulted for further assistance. Await recommendations. cont with abx per ID (ESBL in wound) 2. ESRD on dialysis. Continue on HD. Follow-up with nephrology recommendations 3. Hypertension. Continue on antihypertensives and adjust needed. Stable 4. Anemia of chronic disease. H&H stable. Monitor for now. 5. History of diabetes. Continue on insulin regimen. Will adjust as needed 6. CAD. Continue on antiplatelet therapy 7. Peripheral vascular disease. Continue aggressive medical management, vascular surgeon has been consulted 8. Acute respiratory distress. Likely secondary to fluid overload. Resolved status post urgent hemodialysis 9. Leukocytosis. Continue IV antibiotics, infectious disease doctor has been consulted 10. Pulmonary embolism. Continue heparin and transitioned to oral anticoagulation as per vascular surgeon Disposition and plan:. Continue with senior staff consultant recommendations. cont with analgesics Plan to discharge to detention facility when accepted versus home with home health Problems: Subjective 24 Hr Interval Summary Free Text/Dictation Unfortunately due to insurance purposes patient has been having difficulty to be placed at detention facility He denies of any chest pain or shortness of breath No nausea vomiting diarrhea Exam/Review of Systems Vital Signs Vitals Vital Signs Date Time Temp Pulse Resp B/P Pulse Ox O2 Delivery O2 Flow Rate FiO2 11/11/16 12:09 78 11/11/16 12:04 98.9 20 145/67 98 11/09/16 01:32 21 11/08/16 16:00 Nasal Cannula 3 Intake and Output 11/10/16 11/10/16 11/11/16 15:00 23:00 07:00 Intake Total 500 ml 700 ml 200 ml Output Total 1500 ml 200 ml Balance -1000 ml 500 ml 200 ml Exam General: The patient is well-developed, Not in acute distress. HEENT: Atraumatic, normocephalic. The pupils are equal and round . Neck: Supple with full range of motion. Chest: Normal expansion of the thorax during inspiration Lungs: Clear to auscultation bilaterally Heart: Normal S1-S2, Regular rhythm and rate. Abdomen: Soft , nontender, nondistended , bowel sounds are present. Extremities:, no edema no cyanosis, right lower extremity Dry Gangrene of the first and second toe, dialysis catheter in the right thigh Left lower extremity: Palpable femoral pulse, AKA-stump with dressing intact and dry -removed and incision clean, Neurologic: Normal mental status,The patient is awake, alert and oriented . Results Result Diagram: 11/11/1630 11/11/1630 Results 24 hrs Laboratory Tests Test 11/10/16 17:53 11/10/16 20:08 11/11/16 06:30 11/11/16 07:43 Bedside Glucose 88 177 92 White Blood Count 11.7 H Red Blood Count 2.87 L Hemoglobin 8.8 L Hematocrit 29.6 L Mean Corpuscular Volume 103.1 H Mean Corpuscular Hemoglobin 30.7 Mean Corpuscular Hemoglobin Concent 29.7 L Red Cell Distribution Width 18.4 H Platelet Count 305 Mean Platelet Volume 11.0 H Neutrophils % 65.0 Lymphocytes % 22.8 Monocytes % 9.6 Eosinophils % 1.5 Basophils % 0.3 Nucleated Red Blood Cells % 0.0 Neutrophils # 7.6 H Lymphocytes # 2.7 Monocytes # 1.1 H Eosinophils # 0.2 Basophils # 0.0 Nucleated Red Blood Cells # 0.0 Sodium Level 143 Potassium Level 5.0 Chloride Level 102 Carbon Dioxide Level 26 Anion Gap 20 H Blood Urea Nitrogen 54 H Creatinine 6.21 H Glucose Level 87 Calcium Level 8.3 L Magnesium Level 2.2 Test 11/11/16 11:50 Bedside Glucose 175 Medications Medications Current Medications Metoprolol Tartrate (Lopressor) 25 mg BID PO Last administered on 11/11/16 09: 21; Admin Dose 25 MG; Start 10/18/16 at 19:21 Hydralazine HCl (Apresoline) 10 mg Q4H PRN IV SBP>150 mm Hg Last administered on 10/27/16 20:38; Admin Dose 10 MG; Start 10/18/16 at 20:00 Albuterol (Ventolin Hfa) 2 puff Q8 INH Last administered on 11/11/16 06:16; Admin Dose 2 PUFF; Start 10/18/16 at 22:30 Famotidine (Pepcid) 20 mg DAILY PO Last administered on 11/11/16 09:21; Admin Dose 20 MG; Start 10/19/16 at 09:00 Ondansetron HCl (Zofran Inj) 4 mg Q6H PRN IV NAUSEA AND/OR VOMITING; Start at 22:30 Acetaminophen (Tylenol Tab) 650 mg Q6H PRN PO PAIN LEVEL 1-3 OR FEVER Last administered on 11/01/16 02:36; Admin Dose 650 MG; Start 10/18/16 at 22:30 Docusate Sodium (Colace) 100 mg Q12H PRN PO CONSTIPATION Last administered on 18:01; Admin Dose 100 MG; Start 10/18/16 at 22:30 Bisacodyl (Dulcolax Supp) 10 mg DAILY PRN [place] CONSTIPATION Last administered on 10/26/16 07:04; Admin Dose 10 MG; Start 10/18/16 at 22:30 Diagnostic Test (Pha) (Accucheck) 1 ea 02 XX Last administered on 11/09/16 02: 03; Admin Dose 1 EA; Start 10/19/16 at 02:00 Miscellaneous Information 1 ea NOTE XX ; Start 10/18/16 at 22:30 Glucose (Glutose) 15 gm Q15M PRN PO DECREASED GLUCOSE; Start 10/18/16 at 22:30 Glucose (Glutose) 22.5 gm Q15M PRN PO DECREASED GLUCOSE; Start 10/18/16 at 22: 30 Dextrose (D50w Syringe) 25 ml Q15M PRN IV DECREASED GLUCOSE; Start 10/18/16 at 22:30 Dextrose (D50w Syringe) 50 ml Q15M PRN IV DECREASED GLUCOSE Last administered on 10/27/16 09:35; Admin Dose 50 ML; Start 10/18/16 at 22:30 Glucagon (Glucagen) 1 mg Q15M PRN IM DECREASED GLUCOSE; Start 10/18/16 at 22:30 Glucose (Glutose) 15 gm Q15M PRN BUCCAL DECREASED GLUCOSE; Start 10/18/16 at 22 :30 Aspirin (Halfprin) 81 mg DAILY PO Last administered on 11/11/16 09:21; Admin Dose 81 MG; Start 10/22/16 at 09:00 Lactobacillus Acidoph/Bulgaricus (Floranex) 1 tab BID PO Last administered on 09:21; Admin Dose 1 TAB; Start 10/22/16 at 21:00 Senna/Docusate Sodium (Senokot-S) 2 tab HS PO Last administered on 11/10/16 20 :17; Admin Dose 2 TAB; Start 10/22/16 at 21:00 Lactulose (Enulose) 20 gm TID PRN PO CONSTIPATION Last administered on 16:53; Admin Dose 20 GM; Start 10/23/16 at 17:30 Clonidine HCl (Catapres-Tts 1 Patch) 1 patch Q7D TRANSDERM Last administered on 11/07/16 08:34; Admin Dose 1 PATCH; Start 10/24/16 at 09:00 Sodium Biphosphate/ Sodium Phosphate (Fleet Enema) 133 ml DAILY PRN [place] CONSTIPATION Last administered on 10/26/16 18:33; Admin Dose 133 ML; Start at 18:00 Naloxone HCl (Narcan) 0.2 mg Q2M PRN IV RR 8 BREATHS/MIN OR LESS; Start at 13:00 Oxycodone/ Acetaminophen (Percocet (5/ 325)) 2 tab Q4H PRN PO PAIN Last administered on 11/10/16 14:14; Admin Dose 2 TAB; Start 10/28/16 at 15:00 Insulin Glargine (Lantus) 4 unit DAILY@20 SC Last administered on 11/10/16 20: 16; Admin Dose 4 UNIT; Start 10/29/16 at 20:00 Benazepril HCl (Lotensin) 10 mg BID PO Last administered on 11/11/16 09:22; Admin Dose 10 MG; Start 10/29/16 at 21:00 Nitroglycerin (Nitroglycerin (Sl Tab) 0.4 Mg) 1 tab Q5M PRN SL CHEST PAIN; Start 11/01/16 at 22:30 Amlodipine Besylate (Norvasc) 5 mg DAILY PO Last administered on 11/11/16 09: 22; Admin Dose 5 MG; Start 11/04/16 at 09:00 Hydromorphone HCl (Dilaudid) 2 mg Q2H PRN IV PAIN Last administered on 12:03; Admin Dose 2 MG; Start 11/03/16 at 19:30 Apixaban (Eliquis) 2.5 mg BID PO Last administered on 11/11/16 09:21; Admin Dose 2.5 MG; Start 11/05/16 at 11:30 Docusate Sodium (Colace) 100 mg DAILY PO Last administered on 11/11/16 09:20; Admin Dose 100 MG; Start 11/07/16 at 14:30 OZZIE HERRERA MD Nov 11, 2016 15:55
[2016-11-11] MEDS: SENNA/DOCUSATE NA (8.6MG/50MG) TAB PO SCH (20:47)
[2016-11-11] MEDS: INSULIN GLARGINE [LANtus] 3 ML PEN SC SCH (20:51)
[2016-11-12] VITALS (12 sets, daily range): BP systolic 112–146; BP diastolic 52–66; PULSE 61–71; RESP 18–20
[2016-11-12] MEDS: ACCU-CHEK XX SCH (02:00)
[2016-11-12] MEDS: HYDROmorphONE 2 MG/ML SYG IV PRN ×7 (02:02→21:25)
[2016-11-12] MEDS: ALBUTEROL HFA 8 GM INHALER INH SCH ×3 (06:16→21:23)
[2016-11-12] MEDS: INSULIN ASPART [NOVOLOG] 3 ML PEN SC SCH ×4 (07:55→20:28)
--- NOTE | 2016-11-12 09:28 | CONS ---
Date/Time of Note Date/Time of Note DATE: 11/12/16 TIME: 09:27 Assessment/Plan Assessment/Plan Additional Assessment/Plan 1. 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 Failed redo bypass.post-surgical intervention with thrombectomy, exploration of the above knee popliteal graft and debridement of left lower extremity wound with wound VAC application on 10/19/2016.- Not improving, s/p Left AKA by vascular surgery on 11/03/16 2. Severe stenosis of the right distal superficial femoral artery and occluded right posterior tibial artery. 3. End-stage renal disease on hemodialysis Tuesday, , Tuesday. 4. Accelerated hypertension. 5. Hyperlipidemia. 6. History of hypertension with peripheral arterial disease. 7. History of peripheral arterial disease status post left lower extremity bypass in September 2016. 8. hyperkalemia with K 6.0 s/p HD 2 days in a row PLAN: s/p New groin permacath, s/p HD x 2 days in a row, now pt will be on TTS Schedule IV abx and wound care plan as per PMD, and vascular surgery let us know if pt needs IV abx in HD unit upon discharge will follow up Consultation Date/Type/Reason Admit Date/Time Oct 18, 2016 at 16:52 Initial Consult Date 10/18/2016 Type of Consultation: NEPHROLOGY Referring Provider: OZZIE HERRERA MD 24 HR Interval Summary Free Text/Dictation s/p HD yesterday 1.2 L removed, Bp stable, Exam/Review of Systems Vital Signs Vitals Vital Signs Date Time Temp Pulse Resp B/P Pulse Ox O2 Delivery O2 Flow Rate FiO2 11/12/16 08:13 67 11/12/16 07:32 98.2 20 126/55 96 11/09/16 01:32 21 11/08/16 16:00 Nasal Cannula 3 Intake and Output 11/11/16 11/11/16 11/12/16 15:00 23:00 07:00 Intake Total 300 ml 300 ml Output Total 1800 ml 100 ml Balance -1500 ml 200 ml Exam GENERAL: This is a fragile well-developed elderly man who is alert, in no distress. HEENT: Head atraumatic, normocephalic. Sclerae anicteric. Buccal mucosa dry. NECK: Supple, trachea midline. CHEST: Rise symmetrical. Breath sounds diminished at the bases. HEART: S1, S2. ABDOMEN: Soft. Bowel tones present. EXTREMITIES: Left above-knee amputation stump ricarda intact. Results Result Diagram: 11/11/1662911/11/16629 Results 24 hrs Laboratory Tests Test 11/11/16 11:50 11/11/16 17:18 11/11/16 20:42 11/12/16 07:54 Bedside Glucose 175 123 167 118 Medications Medications Current Medications Metoprolol Tartrate (Lopressor) 25 mg BID PO Last administered on 11/11/16 20: 46; Admin Dose 25 MG; Start 10/18/16 at 19:21 Hydralazine HCl (Apresoline) 10 mg Q4H PRN IV SBP>150 mm Hg Last administered on 10/27/16 20:38; Admin Dose 10 MG; Start 10/18/16 at 20:00 Albuterol (Ventolin Hfa) 2 puff Q8 INH Last administered on 11/12/16 06:16; Admin Dose 2 PUFF; Start 10/18/16 at 22:30 Famotidine (Pepcid) 20 mg DAILY PO Last administered on 11/11/16 09:21; Admin Dose 20 MG; Start 10/19/16 at 09:00 Ondansetron HCl (Zofran Inj) 4 mg Q6H PRN IV NAUSEA AND/OR VOMITING; Start at 22:30 Acetaminophen (Tylenol Tab) 650 mg Q6H PRN PO PAIN LEVEL 1-3 OR FEVER Last administered on 11/01/16 02:36; Admin Dose 650 MG; Start 10/18/16 at 22:30 Docusate Sodium (Colace) 100 mg Q12H PRN PO CONSTIPATION Last administered on 18:01; Admin Dose 100 MG; Start 10/18/16 at 22:30 Bisacodyl (Dulcolax Supp) 10 mg DAILY PRN [place] CONSTIPATION Last administered on 10/26/16 07:04; Admin Dose 10 MG; Start 10/18/16 at 22:30 Diagnostic Test (Pha) (Accucheck) 1 ea 02 XX Last administered on 11/09/16 02: 03; Admin Dose 1 EA; Start 10/19/16 at 02:00 Miscellaneous Information 1 ea NOTE XX ; Start 10/18/16 at 22:30 Glucose (Glutose) 15 gm Q15M PRN PO DECREASED GLUCOSE; Start 10/18/16 at 22:30 Glucose (Glutose) 22.5 gm Q15M PRN PO DECREASED GLUCOSE; Start 10/18/16 at 22: 30 Dextrose (D50w Syringe) 25 ml Q15M PRN IV DECREASED GLUCOSE; Start 10/18/16 at 22:30 Dextrose (D50w Syringe) 50 ml Q15M PRN IV DECREASED GLUCOSE Last administered on 10/27/16 09:35; Admin Dose 50 ML; Start 10/18/16 at 22:30 Glucagon (Glucagen) 1 mg Q15M PRN IM DECREASED GLUCOSE; Start 10/18/16 at 22:30 Glucose (Glutose) 15 gm Q15M PRN BUCCAL DECREASED GLUCOSE; Start 10/18/16 at 22 :30 Aspirin (Halfprin) 81 mg DAILY PO Last administered on 11/11/16 09:21; Admin Dose 81 MG; Start 10/22/16 at 09:00 Lactobacillus Acidoph/Bulgaricus (Floranex) 1 tab BID PO Last administered on 20:46; Admin Dose 1 TAB; Start 10/22/16 at 21:00 Senna/Docusate Sodium (Senokot-S) 2 tab HS PO Last administered on 11/11/16 20 :47; Admin Dose 2 TAB; Start 10/22/16 at 21:00 Lactulose (Enulose) 20 gm TID PRN PO CONSTIPATION Last administered on 16:53; Admin Dose 20 GM; Start 10/23/16 at 17:30 Clonidine HCl (Catapres-Tts 1 Patch) 1 patch Q7D TRANSDERM Last administered on 11/07/16 08:34; Admin Dose 1 PATCH; Start 10/24/16 at 09:00 Sodium Biphosphate/ Sodium Phosphate (Fleet Enema) 133 ml DAILY PRN [place] CONSTIPATION Last administered on 10/26/16 18:33; Admin Dose 133 ML; Start at 18:00 Naloxone HCl (Narcan) 0.2 mg Q2M PRN IV RR 8 BREATHS/MIN OR LESS; Start at 13:00 Oxycodone/ Acetaminophen (Percocet (5/ 325)) 2 tab Q4H PRN PO PAIN Last administered on 11/10/16 14:14; Admin Dose 2 TAB; Start 10/28/16 at 15:00 Insulin Glargine (Lantus) 4 unit DAILY@20 SC Last administered on 11/11/16 20: 51; Admin Dose 4 UNIT; Start 10/29/16 at 20:00 Benazepril HCl (Lotensin) 10 mg BID PO Last administered on 11/11/16 20:46; Admin Dose 10 MG; Start 10/29/16 at 21:00 Nitroglycerin (Nitroglycerin (Sl Tab) 0.4 Mg) 1 tab Q5M PRN SL CHEST PAIN; Start 11/01/16 at 22:30 Amlodipine Besylate (Norvasc) 5 mg DAILY PO Last administered on 11/11/16 09: 22; Admin Dose 5 MG; Start 11/04/16 at 09:00 Hydromorphone HCl (Dilaudid) 2 mg Q2H PRN IV PAIN Last administered on 06:16; Admin Dose 2 MG; Start 11/03/16 at 19:30 Apixaban (Eliquis) 2.5 mg BID PO Last administered on 11/11/16 20:46; Admin Dose 2.5 MG; Start 11/05/16 at 11:30 Docusate Sodium (Colace) 100 mg DAILY PO Last administered on 11/11/16 09:20; Admin Dose 100 MG; Start 11/07/16 at 14:30 LISA MERRITT MD Nov 12, 2016 09:28
[2016-11-12] MEDS: ASPIRIN (EC) 81 MG TAB PO SCH (09:48)
[2016-11-12] MEDS: DOCUSATE SODIUM 100 MG CAP PO SCH (09:48)
[2016-11-12] MEDS: LACTOBACILLUS CHEW TAB PO SCH ×2 (09:48→20:14)
[2016-11-12] MEDS: FAMOTIDINE 20 MG TAB PO SCH (09:48)
[2016-11-12] MEDS: APIXABAN 5 MG TABLET PO SCH ×2 (09:48→20:15)
[2016-11-12] MEDS: AMLODIPINE 5 MG TAB PO SCH (09:48)
[2016-11-12] MEDS: METOPROLOL 25 MG TAB PO SCH ×2 (09:49→20:18)
[2016-11-12] MEDS: BENAZEPRIL 10 MG TAB PO SCH ×2 (09:49→20:17)
--- NOTE | 2016-11-12 11:34 | PN ---
Date/Time of Note Date/Time of Note DATE: 11/12/16 TIME: 11:33 Assessment/Plan Lines/Catheters IV Catheter Type (from [facility]): Peripheral IV Correa in Place (from [facility]): No Assessment/Plan Chief Complaint/Hosp Course -Bilateral lower extremity atherosclerosis with gangrene: S/P AKA -PE: Continue anticoagulation -Right lower extremity gangrene: will schedule patient for angiogram as outpatient -End-stage renal disease: S/P Perm catheter -Optimize vascular status (BP meds, diet, nutrition, exercise, sugar control, antiplatelets). -PT/OT OOB and FWB as tolerated -Dynamics orthotics for prosthetic Eval -Discussed findings, plan and management with the patient and family at the bedside and they understand with certified aircraft maintenance technician. -Thank you for allowing us to participate in the care of your patient. Please call with any questions. Problems: Subjective 24 Hr Interval Summary no new vascular events overnight Exam/Review of Systems Vital Signs Vitals Vital Signs Date Time Temp Pulse Resp B/P Pulse Ox O2 Delivery O2 Flow Rate FiO2 11/12/16 11:13 98.4 66 20 146/63 100 11/09/16 01:32 21 11/08/16 16:00 Nasal Cannula 3 Intake and Output 11/11/16 11/11/16 11/12/16 15:00 23:00 07:00 Intake Total 300 ml 300 ml Output Total 1800 ml 100 ml Balance -1500 ml 200 ml Exam Free Text/Dictation GENERAL: Alert and oriented x3, PULMONARY: Clear to auscultation bilaterally. CARDIOVASCULAR: S1, S2 present. ABDOMEN: Soft, nontender, nondistended. Bowel sounds positive. EXTREMITIES: Right lower extremity palpable femoral pulse, nonpalpable pedal pulse. Motor, sensory intact. Cap refill 3 to 4 seconds. Dry Gangrene of the first and second toe Left lower extremity: Palpable femoral pulse, AKA-stump with dressing intact and dry -removed and incision clean Results Result Diagram: 11/11/1630 11/11/16629 CYNDI CARR MD Nov 12, 2016 11:34
--- NOTE | 2016-11-12 12:19 | DS ---
DATE OF ADMISSION: 10/18/2016 DATE OF DISCHARGE: 11/12/2016 PROCEDURES: 1. Exploration of distal posterior tibial artery and plantar artery, thrombectomy of the femoral po sterior tibial and superficial bypass vein graft, exploration of above the knee popliteal graft. 2. On 10/27/2016 ligation and excision of left lower extremity infected graft. Irrigation and debr idement of the skin. Left below-knee amputation wound VAC placement of the medial aspect of the lef t lower extremity thigh. 3. On 11/01/2016 removed the right chest wall catheter. 4. On 11/02/2016 ultrasound-guided access of right common femoral vein and urgent right common femo ral vein non-tunneled hemodialysis catheter placement. 5. On 11/04/2016 left above knee amputation. 6. On 11/04/2016 ultrasound-guided access of the right common femoral vein and right common femoral vein non-tunneled hemodialysis catheter placement. 7. On 11/09/2016 ultrasound-guided access of the right common femoral vein and right common femoral vein tunneled hemodialysis catheter placement. 8. Other procedure of hemodialysis. DISCHARGE DIAGNOSES: 1. Left lower extremity gangrene and peripheral arterial disease, with the patient having a history of bypass which are thrombosed, status post AKA of the left lower extremity. 2. End-stage renal disease, on hemodialysis. 3. Hypertension, well controlled on antihypertensive medications. 4. Anemia of chronic disease. H and H has been stable. 5. Diabetes mellitus, on a low carbohydrate diet and glipizide. 6. Coronary artery disease, on antiplatelet therapy, Eliquis and statin. 7. Peripheral vascular disease, on aspirin and statin. 8. Respiratory distress. Resolved. 9. Leukocytosis, status post IV antibiotic. ID was consulted. 10. Pulmonary embolism. On Eliquis. 11. Dyslipidemia. The patient has been placed on a statin. MEDICATIONS: 1. Lipitor 10 mg. 2. Albuterol MDI. 3. Eliquis 2.5 mg. 4. Aspirin 81 mg 5. Benazepril 10 mg. 6. Clonidine patch 1. 7. Colace. 8. Pepcid. 9. Glipizide 2.5 mg. 10. Metoprolol tartrate 25 mg. 11. Nitroglycerin 0.4 mg. 12. Percocet 5 mg. ALLERGIES: NO KNOWN DRUG ALLERGIES. HOSPITAL COURSE: This is a very pleasant 65-year-old gentleman who had a complicated hospitalizatio n and a hospital course with a past medical history of lower extremity gangrene, peripheral artery d isease, end-stage renal disease, on hemodialysis, hypertension, hypertensive nephrosclerosis, diabet es mellitus, diabetic nephropathy, peripheral arterial disease, past tobacco abuse 15 years ago, hyp ertension, hypertensive nephrosclerosis, anemia, coronary artery disease, who presented to [facility] secondary to having left foot gangrene. His blood pressure was found to be elev ated, with a blood pressure of 190/80. Vascular surgeon was consulted. The patient has a history o f a bypass graft. He was admitted to the telemetry floor, where he had a venous evaluation which sh owed right lower extremity venous mapping was done. On the ultrasound of the bilateral lower extrem ities, it showed right-sided severe stenosis of the distal superficial femoral artery, occluded righ t posterior tibial artery, on the left abnormal flow throughout, which may indicate iliac disease. T he patient had multiple operations, which are all stated above, as had exploration of distal posteri or tibial artery and plantar artery, thrombectomy of femoral posterior tibial and superficial bypass vein graft, exploration of above the knee popliteal graft, and interposition bypass graft of poplit eal graft to distal posterior tibial artery using xenograft. Despite this procedure, the patient co ntinued to have worsening of his gangrene of his left foot. Therefore it was decided to proceed wit h a below knee amputation and irrigation and debridement of the skin. The patient tolerated the pro cedure well, although secondary to his severe peripheral arterial disease and vascular disease, ther e was poor wound healing despite aggressive medical management, antibiotics and wound care; therefor e, the patient was taken back to the OR on 11/04/2016 for a left [id number] amputation which the patient tolerated the procedure well. The patient was found to have a positive wound culture for E . coli. Blood culture was found to be negative. Infectious disease doctor was consulted. He was f ound to have severe leukocytosis with elevated at 28.4 on 11/05/2016. This was likely seconda ry to wound infection. As stated above, there was no blood infection. Infectious disease doctor ma naged the IV antibiotics. The patient eventually was weaned off IV antibiotics. He was also placed on Culturelle. Eventually the patient obtained a right common femoral vein tunneled hemodialysis c atheter placement in the right common femoral vein and there are arrangements to place the patient i n a [facility] facility, although secondary to insurance purposes it has been very difficult; t herefore we have asked the family independence case manager to place the patient at his own residence with home health. Patient prescriptions have been provided to him and home health will be provided. The patient also will be set up for a paracentesis of his left foot/lower extremity. The patient will follow up wit h his nephrology, PCP and vascular surgeon as an outpatient. CONDITION AT TIME OF DISCHARGE: Stable. LABORATORY: WBC 11.7, hemoglobin 8.8, hematocrit 29.6, platelets 103.1. Sodium 143, potassium 4.0, chloride 102, bicarbonate 26, BUN 54, 6.28, glucose 87, calcium 8.3, magnesium 2.2. Triglyce rides 97, total cholesterol 143, LDL 85, HDL 39, TSH 1.22. CONDITION: Stable. Dictated By: OZZIE TERRAZAS/NTS Conf#: [id number] DID#: [id number]
--- NOTE | 2016-11-12 13:17 | CONS ---
Date/Time of Note Date/Time of Note DATE: 11/12/16 TIME: 13:14 Assessment/Plan Assessment/Plan Chief Complaint/Hosp Course IMPRESSION: 1. Preoperative evaluation prior to lower extremity vascular surgery, possible amputation.-Now s/p LLE vascular surgery with failed graft and now Post-op s/p LE amputation 2. Hypertension-Well controlled 3. Abnormal electrocardiogram, assess for acute coronary syndrome. 4. Dyslipidemia. 5. Peripheral arterial disease, s/p LE amputation 6. Lower extremity nonhealing ulceration of the toe. 7. PNA 8. End-stage renal disease on hemodialysis. 9. Anemia. 10. Leukocytosis. 11. Cardiomyopathy-LVEF 40-45%-negative trop x 3 since admit-mild CHF by cxr systolic acute on chronic 12. CHest qsso-Owzp-co now resolved. Trop negative x 2 post epsiode/EKG 10/29 with lateral TWI(no sig changes)-no recurrence 14. PE Recc: -Tele -Continue current ACEI/BB and follow BP closely -Local wound care/abx's and f/u cx data -Pain control -Continue ASA -HD for volume removal -Continue eliquis Problems: Consultation Date/Type/Reason Admit Date/Time Oct 18, 2016 at 16:52 Initial Consult Date 10/19/2016 Type of Consultation: Cardiology Reason for Consultation Pre-op Referring Provider: OZZIE HERRERA MD Exam/Review of Systems Vital Signs Vitals Vital Signs Date Time Temp Pulse Resp B/P Pulse Ox O2 Delivery O2 Flow Rate FiO2 11/12/16 12:03 71 11/12/16 11:13 98.4 20 146/63 100 11/09/16 01:32 21 11/08/16 16:00 Nasal Cannula 3 Intake and Output 11/11/16 11/11/16 11/12/16 14:59 22:59 06:59 Intake Total 300 ml 300 ml Output Total 1800 ml 100 ml Balance -1500 ml 200 ml Exam Review of Systems: CONSTITUTIONAL: No fevers, chills. PULMONARY: No sob CARDIOVASCULAR: No chest pain/palpitations GASTROINTESTINAL: No nausea/vomiting. GENITOURINARY: No hematuria/dysuria. MUSCULOSKELETAL: pain in the leg PSYCHIATRIC: The patient denies depression. NEUROLOGIC: No weakness Constitutional: alert Psych: no complaints Head: normocephalic ENMT: mucosa pink and moist Neck: jvd (9 cm water), supple Respiratory: diminished breath sounds Cardiovascular: regular rate and rhythm Gastrointestinal: non-tender, soft Musculoskeletal: muscle tone (normal) Extremities: edema (none) Neurological: other (no focal deficits) Results Result Diagram: 11/11/16 0630 11/11/16 0630 Results 24 hrs Laboratory Tests Test 11/11/16 17:18 11/11/16 20:42 11/12/16 07:54 11/12/16 11:38 Bedside Glucose 123 167 118 130 Medications Medications Current Medications Metoprolol Tartrate (Lopressor) 25 mg BID PO Last administered on 11/12/16 09: 49; Admin Dose 25 MG; Start 10/18/16 at 19:21 Hydralazine HCl (Apresoline) 10 mg Q4H PRN IV SBP>150 mm Hg Last administered on 10/27/16 20:38; Admin Dose 10 MG; Start 10/18/16 at 20:00 Albuterol (Ventolin Hfa) 2 puff Q8 INH Last administered on 11/12/16 06:16; Admin Dose 2 PUFF; Start 10/18/16 at 22:30 Famotidine (Pepcid) 20 mg DAILY PO Last administered on 11/12/16 09:48; Admin Dose 20 MG; Start 10/19/16 at 09:00 Ondansetron HCl (Zofran Inj) 4 mg Q6H PRN IV NAUSEA AND/OR VOMITING; Start at 22:30 Acetaminophen (Tylenol Tab) 650 mg Q6H PRN PO PAIN LEVEL 1-3 OR FEVER Last administered on 11/01/16 02:36; Admin Dose 650 MG; Start 10/18/16 at 22:30 Docusate Sodium (Colace) 100 mg Q12H PRN PO CONSTIPATION Last administered on 18:01; Admin Dose 100 MG; Start 10/18/16 at 22:30 Bisacodyl (Dulcolax Supp) 10 mg DAILY PRN [place] CONSTIPATION Last administered on 10/26/16 07:04; Admin Dose 10 MG; Start 10/18/16 at 22:30 Diagnostic Test (Pha) (Accucheck) 1 ea 02 XX Last administered on 11/09/16 02: 03; Admin Dose 1 EA; Start 10/19/16 at 02:00 Miscellaneous Information 1 ea NOTE XX ; Start 10/18/16 at 22:30 Glucose (Glutose) 15 gm Q15M PRN PO DECREASED GLUCOSE; Start 10/18/16 at 22:30 Glucose (Glutose) 22.5 gm Q15M PRN PO DECREASED GLUCOSE; Start 10/18/16 at 22: 30 Dextrose (D50w Syringe) 25 ml Q15M PRN IV DECREASED GLUCOSE; Start 10/18/16 at 22:30 Dextrose (D50w Syringe) 50 ml Q15M PRN IV DECREASED GLUCOSE Last administered on 10/27/16 09:35; Admin Dose 50 ML; Start 10/18/16 at 22:30 Glucagon (Glucagen) 1 mg Q15M PRN IM DECREASED GLUCOSE; Start 10/18/16 at 22:30 Glucose (Glutose) 15 gm Q15M PRN BUCCAL DECREASED GLUCOSE; Start 10/18/16 at 22 :30 Aspirin (Halfprin) 81 mg DAILY PO Last administered on 11/12/16 09:48; Admin Dose 81 MG; Start 10/22/16 at 09:00 Lactobacillus Acidoph/Bulgaricus (Floranex) 1 tab BID PO Last administered on 09:48; Admin Dose 1 TAB; Start 10/22/16 at 21:00 Senna/Docusate Sodium (Senokot-S) 2 tab HS PO Last administered on 11/11/16 20 :47; Admin Dose 2 TAB; Start 10/22/16 at 21:00 Lactulose (Enulose) 20 gm TID PRN PO CONSTIPATION Last administered on 16:53; Admin Dose 20 GM; Start 10/23/16 at 17:30 Clonidine HCl (Catapres-Tts 1 Patch) 1 patch Q7D TRANSDERM Last administered on 11/07/16 08:34; Admin Dose 1 PATCH; Start 10/24/16 at 09:00 Sodium Biphosphate/ Sodium Phosphate (Fleet Enema) 133 ml DAILY PRN [place] CONSTIPATION Last administered on 10/26/16 18:33; Admin Dose 133 ML; Start at 18:00 Naloxone HCl (Narcan) 0.2 mg Q2M PRN IV RR 8 BREATHS/MIN OR LESS; Start at 13:00 Oxycodone/ Acetaminophen (Percocet (5/ 325)) 2 tab Q4H PRN PO PAIN Last administered on 11/10/16 14:14; Admin Dose 2 TAB; Start 10/28/16 at 15:00 Insulin Glargine (Lantus) 4 unit DAILY@20 SC Last administered on 11/11/16 20: 51; Admin Dose 4 UNIT; Start 10/29/16 at 20:00 Benazepril HCl (Lotensin) 10 mg BID PO Last administered on 11/12/16 09:49; Admin Dose 10 MG; Start 10/29/16 at 21:00 Nitroglycerin (Nitroglycerin (Sl Tab) 0.4 Mg) 1 tab Q5M PRN SL CHEST PAIN; Start 11/01/16 at 22:30 Amlodipine Besylate (Norvasc) 5 mg DAILY PO Last administered on 11/12/16 09: 48; Admin Dose 5 MG; Start 11/04/16 at 09:00 Hydromorphone HCl (Dilaudid) 2 mg Q2H PRN IV PAIN Last administered on 11:36; Admin Dose 2 MG; Start 11/03/16 at 19:30 Apixaban (Eliquis) 2.5 mg BID PO Last administered on 11/12/16 09:48; Admin Dose 2.5 MG; Start 11/05/16 at 11:30 Docusate Sodium (Colace) 100 mg DAILY PO Last administered on 11/12/16 09:48; Admin Dose 100 MG; Start 11/07/16 at 14:30 KAYLEE WILSON Nov 12, 2016 13:17
--- NOTE | 2016-11-12 15:41 | CONS ---
Date/Time of Note Date/Time of Note DATE: 11/12/16 TIME: 15:40 Assessment/Plan Assessment/Plan Chief Complaint/Hosp Course SUBJECTIVE: The patient is alert, feels good, no fevers. INDWELLINGS: R upper thigh permacath. PHYSICAL EXAMINATION: GENERAL: This is a fragile well-developed elderly man who is alert, in no distress. HEENT: Head atraumatic, normocephalic. Sclerae anicteric. Buccal mucosa dry. NECK: Supple, trachea midline. CHEST: Rise symmetrical. Breath sounds diminished at the bases. HEART: S1, S2. ABDOMEN: Soft. Bowel tones present. EXTREMITIES: Left above-knee amputation stump ricarda intact. ASSESSMENT: 1. Resolving sepsis. 2. 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 3. Severe peripheral vascular disease status post again left above-knee amputation with infected vascular graft removal. 4. Right foot gangrene. 5. End-stage renal disease, hemodialysis dependent. 6. Diabetes. 7. Pulmonary embolism. 8. ALLERGY TO VANCOMYCIN. PLAN: The patient remains stable, off abx DW pt/family Problems: Consultation Date/Type/Reason Admit Date/Time Oct 18, 2016 at 16:52 Type of Consultation: id Referring Provider: OZZIE HERRERA MD Exam/Review of Systems Vital Signs Vitals Vital Signs Date Time Temp Pulse Resp B/P Pulse Ox O2 Delivery O2 Flow Rate FiO2 11/12/16 15:30 98.2 62 20 145/66 100 11/09/16 01:32 21 11/08/16 16:00 Nasal Cannula 3 Intake and Output 11/11/16 11/11/16 11/12/16 15:00 23:00 07:00 Intake Total 300 ml 300 ml Output Total 1800 ml 100 ml Balance -1500 ml 200 ml Results Result Diagram: 11/11/16 0630 11/11/16 0630 Results 24 hrs Laboratory Tests Test 11/11/16 17:18 11/11/16 20:42 11/12/16 07:54 11/12/16 11:38 Bedside Glucose 123 167 118 130 Medications Medications Current Medications Metoprolol Tartrate (Lopressor) 25 mg BID PO Last administered on 11/12/16t 09: 49; Admin Dose 25 MG; Start 10/18/16 at 19:21 Hydralazine HCl (Apresoline) 10 mg Q4H PRN IV SBP>150 mm Hg Last administered on 10/27/16 20:38; Admin Dose 10 MG; Start 10/18/16 at 20:00 Albuterol (Ventolin Hfa) 2 puff Q8 INH Last administered on 11/12/16 06:16; Admin Dose 2 PUFF; Start 10/18/16 at 22:30 Famotidine (Pepcid) 20 mg DAILY PO Last administered on 11/12/16 09:48; Admin Dose 20 MG; Start 10/19/16 at 09:00 Ondansetron HCl (Zofran Inj) 4 mg Q6H PRN IV NAUSEA AND/OR VOMITING; Start at 22:30 Acetaminophen (Tylenol Tab) 650 mg Q6H PRN PO PAIN LEVEL 1-3 OR FEVER Last administered on 11/01/16 02:36; Admin Dose 650 MG; Start 10/18/16 at 22:30 Docusate Sodium (Colace) 100 mg Q12H PRN PO CONSTIPATION Last administered on 18:01; Admin Dose 100 MG; Start 10/18/16 at 22:30 Bisacodyl (Dulcolax Supp) 10 mg DAILY PRN [place] CONSTIPATION Last administered on 10/26/16 07:04; Admin Dose 10 MG; Start 10/18/16 at 22:30 Diagnostic Test (Pha) (Accucheck) 1 ea 02 XX Last administered on 11/09/16 02: 03; Admin Dose 1 EA; Start 10/19/16 at 02:00 Miscellaneous Information 1 ea NOTE XX ; Start 10/18/16 at 22:30 Glucose (Glutose) 15 gm Q15M PRN PO DECREASED GLUCOSE; Start 10/18/16 at 22:30 Glucose (Glutose) 22.5 gm Q15M PRN PO DECREASED GLUCOSE; Start 10/18/16 at 22: 30 Dextrose (D50w Syringe) 25 ml Q15M PRN IV DECREASED GLUCOSE; Start 10/18/16 at 22:30 Dextrose (D50w Syringe) 50 ml Q15M PRN IV DECREASED GLUCOSE Last administered on 10/27/16 09:35; Admin Dose 50 ML; Start 10/18/16 at 22:30 Glucagon (Glucagen) 1 mg Q15M PRN IM DECREASED GLUCOSE; Start 10/18/16 at 22:30 Glucose (Glutose) 15 gm Q15M PRN BUCCAL DECREASED GLUCOSE; Start 10/18/16 at 22 :30 Aspirin (Halfprin) 81 mg DAILY PO Last administered on 11/12/16 09:48; Admin Dose 81 MG; Start 10/22/16 at 09:00 Lactobacillus Acidoph/Bulgaricus (Floranex) 1 tab BID PO Last administered on 09:48; Admin Dose 1 TAB; Start 10/22/16 at 21:00 Senna/Docusate Sodium (Senokot-S) 2 tab HS PO Last administered on 11/11/16 20 :47; Admin Dose 2 TAB; Start 10/22/16 at 21:00 Lactulose (Enulose) 20 gm TID PRN PO CONSTIPATION Last administered on 16:53; Admin Dose 20 GM; Start 10/23/16 at 17:30 Clonidine HCl (Catapres-Tts 1 Patch) 1 patch Q7D TRANSDERM Last administered on 11/07/16 08:34; Admin Dose 1 PATCH; Start 10/24/16 at 09:00 Sodium Biphosphate/ Sodium Phosphate (Fleet Enema) 133 ml DAILY PRN [place] CONSTIPATION Last administered on 10/26/16 18:33; Admin Dose 133 ML; Start at 18:00 Naloxone HCl (Narcan) 0.2 mg Q2M PRN IV RR 8 BREATHS/MIN OR LESS; Start at 13:00 Oxycodone/ Acetaminophen (Percocet (5/ 325)) 2 tab Q4H PRN PO PAIN Last administered on 11/10/16 14:14; Admin Dose 2 TAB; Start 10/28/16 at 15:00 Insulin Glargine (Lantus) 4 unit DAILY@20 SC Last administered on 11/11/16 20: 51; Admin Dose 4 UNIT; Start 10/29/16 at 20:00 Benazepril HCl (Lotensin) 10 mg BID PO Last administered on 11/12/16 09:49; Admin Dose 10 MG; Start 10/29/16 at 21:00 Nitroglycerin (Nitroglycerin (Sl Tab) 0.4 Mg) 1 tab Q5M PRN SL CHEST PAIN; Start 11/01/16 at 22:30 Amlodipine Besylate (Norvasc) 5 mg DAILY PO Last administered on 11/12/16 09: 48; Admin Dose 5 MG; Start 11/04/16 at 09:00 Hydromorphone HCl (Dilaudid) 2 mg Q2H PRN IV PAIN Last administered on 15:37; Admin Dose 2 MG; Start 11/03/16 at 19:30 Apixaban (Eliquis) 2.5 mg BID PO Last administered on 11/12/16 09:48; Admin Dose 2.5 MG; Start 11/05/16 at 11:30 Docusate Sodium (Colace) 100 mg DAILY PO Last administered on 11/12/16 09:48; Admin Dose 100 MG; Start 11/07/16 at 14:30 DARLENE MCKEE NP Nov 12, 2016 15:41
[2016-11-12] MEDS: SENNA/DOCUSATE NA (8.6MG/50MG) TAB PO SCH (20:16)
[2016-11-12] MEDS: INSULIN GLARGINE [LANtus] 3 ML PEN SC SCH (20:25)
[2016-11-13] VITALS (19 sets, daily range): BP systolic 103–152; BP diastolic 49–77; PULSE 61–79; RESP 16–20
[2016-11-13] MEDS: HYDROmorphONE 2 MG/ML SYG IV PRN ×6 (01:17→23:59)
[2016-11-13] MEDS: ACCU-CHEK XX SCH (02:00)
[2016-11-13] MEDS: ALBUTEROL HFA 8 GM INHALER INH SCH ×3 (05:15→22:33)
[2016-11-13] MEDS: INSULIN ASPART [NOVOLOG] 3 ML PEN SC SCH ×4 (07:55→20:22)
[2016-11-13] MEDS: LACTOBACILLUS CHEW TAB PO SCH ×2 (11:12→20:15)
[2016-11-13] MEDS: ASPIRIN (EC) 81 MG TAB PO SCH (11:13)
[2016-11-13] MEDS: DOCUSATE SODIUM 100 MG CAP PO SCH (11:13)
[2016-11-13] MEDS: AMLODIPINE 5 MG TAB PO SCH (11:13)
[2016-11-13] MEDS: APIXABAN 5 MG TABLET PO SCH ×2 (11:14→20:15)
[2016-11-13] MEDS: BENAZEPRIL 10 MG TAB PO SCH ×2 (11:14→20:16)
[2016-11-13] MEDS: FAMOTIDINE 20 MG TAB PO SCH (11:14)
[2016-11-13] MEDS: METOPROLOL 25 MG TAB PO SCH ×2 (11:14→20:16)
--- NOTE | 2016-11-13 13:57 | CONS ---
Date/Time of Note Date/Time of Note DATE: 11/13/16 TIME: 13:50 Assessment/Plan Assessment/Plan Additional Assessment/Plan 1. Systemic inflammatory response syndrome. 2. 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 3. End-stage renal disease, hemodialysis dependent. 4. Diabetes. 5. Healthcare-acquired pneumonia 6. History of peripheral arterial disease status post left lower extremity bypass in September 2016 7. Hypertension 8. Pulmonary embolism 9.Post-op s/p LE amputation He is hemodynamically stable Scheduled for HD Continue Benazepril and Metoprolol Continue Eliquis Continue ASA Continue Insulin Continue Antibiotics Continue GI and DVT Prophylaxis Consultation Date/Type/Reason Admit Date/Time Oct 18, 2016 at 16:52 Constitutional: improved, other (NAD, Dw staff) ENT: no complaints Respiratory: no complaints Gastrointestinal: no complaints Genitourinary: no complaints Musculoskeletal: no complaints Psychological: no complaints Social History Smoking Status: Former smoker Exam/Review of Systems Vital Signs Vitals Vital Signs Date Time Temp Pulse Resp B/P Pulse Ox O2 Delivery O2 Flow Rate FiO2 11/13/16 12:20 74 11/13/16 10:45 98.5 18 130/60 99 11/13/16 04:10 Room Air 11/12/16 16:02 21 Intake and Output 11/12/16 11/12/16 11/13/16 15:00 23:00 07:00 Intake Total 300 ml Balance 300 ml Exam Head: atraumatic, normocephalic Respiratory: clear to auscultation Cardiovascular: regular rate and rhythm Gastrointestinal: nl liver, spleen, non-tender, soft Extremities: other (LE amputation) Results Result Diagram: 11/11/16 0630 11/11/16 0630 Results 24 hrs Laboratory Tests Test 11/12/16 16:56 11/12/16 20:22 11/13/16 08:27 11/13/16 11:08 Bedside Glucose 139 117 128 212 Test 11/13/16 12:11 Bedside Glucose 195 Medications Medications Current Medications Metoprolol Tartrate (Lopressor) 25 mg BID PO Last administered on 11/13/16t 11: 14; Admin Dose 25 MG; Start 10/18/16 at 19:21 Hydralazine HCl (Apresoline) 10 mg Q4H PRN IV SBP>150 mm Hg Last administered on 10/27/16 20:38; Admin Dose 10 MG; Start 10/18/16 at 20:00 Albuterol (Ventolin Hfa) 2 puff Q8 INH Last administered on 11/13/16 05:15; Admin Dose 2 PUFF; Start 10/18/16 at 22:30 Famotidine (Pepcid) 20 mg DAILY PO Last administered on 11/13/16 11:14; Admin Dose 20 MG; Start 10/19/16 at 09:00 Ondansetron HCl (Zofran Inj) 4 mg Q6H PRN IV NAUSEA AND/OR VOMITING; Start at 22:30 Acetaminophen (Tylenol Tab) 650 mg Q6H PRN PO PAIN LEVEL 1-3 OR FEVER Last administered on 11/01/16 02:36; Admin Dose 650 MG; Start 10/18/16 at 22:30 Docusate Sodium (Colace) 100 mg Q12H PRN PO CONSTIPATION Last administered on 18:01; Admin Dose 100 MG; Start 10/18/16 at 22:30 Bisacodyl (Dulcolax Supp) 10 mg DAILY PRN [place] CONSTIPATION Last administered on 10/26/16 07:04; Admin Dose 10 MG; Start 10/18/16 at 22:30 Diagnostic Test (Pha) (Accucheck) 1 ea 02 XX Last administered on 11/09/16 02: 03; Admin Dose 1 EA; Start 10/19/16 at 02:00 Miscellaneous Information 1 ea NOTE XX ; Start 10/18/16 at 22:30 Glucose (Glutose) 15 gm Q15M PRN PO DECREASED GLUCOSE; Start 10/18/16 at 22:30 Glucose (Glutose) 22.5 gm Q15M PRN PO DECREASED GLUCOSE; Start 10/18/16 at 22: 30 Dextrose (D50w Syringe) 25 ml Q15M PRN IV DECREASED GLUCOSE; Start 10/18/16 at 22:30 Dextrose (D50w Syringe) 50 ml Q15M PRN IV DECREASED GLUCOSE Last administered on 10/27/16 09:35; Admin Dose 50 ML; Start 10/18/16 at 22:30 Glucagon (Glucagen) 1 mg Q15M PRN IM DECREASED GLUCOSE; Start 10/18/16 at 22:30 Glucose (Glutose) 15 gm Q15M PRN BUCCAL DECREASED GLUCOSE; Start 10/18/16 at 22 :30 Aspirin (Halfprin) 81 mg DAILY PO Last administered on 11/13/16 11:13; Admin Dose 81 MG; Start 10/22/16 at 09:00 Lactobacillus Acidoph/Bulgaricus (Floranex) 1 tab BID PO Last administered on 11:12; Admin Dose 1 TAB; Start 10/22/16 at 21:00 Senna/Docusate Sodium (Senokot-S) 2 tab HS PO Last administered on 11/12/16 20 :16; Admin Dose 2 TAB; Start 10/22/16 at 21:00 Lactulose (Enulose) 20 gm TID PRN PO CONSTIPATION Last administered on 16:53; Admin Dose 20 GM; Start 10/23/16 at 17:30 Clonidine HCl (Catapres-Tts 1 Patch) 1 patch Q7D TRANSDERM Last administered on 11/07/16 08:34; Admin Dose 1 PATCH; Start 10/24/16 at 09:00 Sodium Biphosphate/ Sodium Phosphate (Fleet Enema) 133 ml DAILY PRN [place] CONSTIPATION Last administered on 10/26/16 18:33; Admin Dose 133 ML; Start at 18:00 Naloxone HCl (Narcan) 0.2 mg Q2M PRN IV RR 8 BREATHS/MIN OR LESS; Start at 13:00 Oxycodone/ Acetaminophen (Percocet (5/ 325)) 2 tab Q4H PRN PO PAIN Last administered on 11/10/16 14:14; Admin Dose 2 TAB; Start 10/28/16 at 15:00 Insulin Glargine (Lantus) 4 unit DAILY@20 SC Last administered on 11/12/16 20: 25; Admin Dose 4 UNIT; Start 10/29/16 at 20:00 Benazepril HCl (Lotensin) 10 mg BID PO Last administered on 11/13/16 11:14; Admin Dose 10 MG; Start 10/29/16 at 21:00 Nitroglycerin (Nitroglycerin (Sl Tab) 0.4 Mg) 1 tab Q5M PRN SL CHEST PAIN; Start 4/3/17 at 22:30 Amlodipine Besylate (Norvasc) 5 mg DAILY PO Last administered on 11/13/16 11: 13; Admin Dose 5 MG; Start 11/04/16 at 09:00 Hydromorphone HCl (Dilaudid) 2 mg Q2H PRN IV PAIN Last administered on 12:42; Admin Dose 2 MG; Start 11/03/16 at 19:30 Apixaban (Eliquis) 2.5 mg BID PO Last administered on 11/13/16 11:14; Admin Dose 2.5 MG; Start 11/05/16 at 11:30 Docusate Sodium (Colace) 100 mg DAILY PO Last administered on 11/13/16 11:13; Admin Dose 100 MG; Start 11/07/16 at 14:30 MICHAEL DIMAS M.D. Nov 13, 2016 13:57
--- NOTE | 2016-11-13 15:38 | PN ---
Date/Time of Note Date/Time of Note DATE: 11/13/16 TIME: 15:33 Assessment/Plan VTE Prophylaxis VTE Prophylaxis Intervention: other Lines/Catheters IV Catheter Type (from Nrs): Saline Lock Urinary Cath still in place: No Assessment/Plan Chief Complaint/Hosp Course Assessment and plan 1. 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 Continue postop care and vascular surgeon recommendations. Analgesics as needed. 2. End-stage renal disease. Continue on dialysis. 3. Essential hypertension. Continue antihypertensives and adjust as needed 4. Anemia of chronic disease. H&H remained stable. Will monitor 5. Diabetes. Continue insulin regimen. 6. CAD. On antiplatelet therapy 7. PVD. Vascular surgeon following. Continue recommendations A. Reported acute respiratory distress. Resolved. Will monitor 9. Leukocytosis. Improved. Will monitor 10. Pulmonary embolism. Continue with vascular recommendations Disposition and plan: Discharge planning. Will follow up for possible home with home health services versus retirement facility. Discussed plan of care with Dr. Monsalve Problems: Subjective 24 Hr Interval Summary Free Text/Dictation no s/s of distress. reports less pain Exam/Review of Systems Vital Signs Vitals Vital Signs Date Time Temp Pulse Resp B/P Pulse Ox O2 Delivery O2 Flow Rate FiO2 11/13/16 15:21 98.0 68 20 117/56 98 11/13/16 04:10 Room Air 11/12/16 16:02 21 Intake and Output 11/12/16 11/12/16 11/13/16 15:00 23:00 07:00 Intake Total 300 ml Balance 300 ml Exam Constitutional: alert, oriented Psych: nl mood/affect, no complaints Head: atraumatic, normocephalic Eyes: nl conjunctiva Neck: non-tender, supple Respiratory: clear to auscultation Cardiovascular: regular rate and rhythm Gastrointestinal: soft Musculoskeletal: other (left AKA, site cdi with ricarda ) Neurological: [employer] II-XII intact Skin: nl turgor, No rash or lesions Results Result Diagram: 11/11/16 0630 11/11/16 0630 Results 24 hrs Laboratory Tests Test 11/12/16 16:56 11/12/16 20:22 11/13/16 08:27 11/13/16 11:08 Bedside Glucose 139 117 128 212 Test 11/13/16 12:11 Bedside Glucose 195 Medications Medications Current Medications Metoprolol Tartrate (Lopressor) 25 mg BID PO Last administered on 11/13/16 11: 14; Admin Dose 25 MG; Start 10/18/16 at 19:21 Hydralazine HCl (Apresoline) 10 mg Q4H PRN IV SBP>150 mm Hg Last administered on 10/27/16 20:38; Admin Dose 10 MG; Start 10/18/16 at 20:00 Albuterol (Ventolin Hfa) 2 puff Q8 INH Last administered on 11/13/16 05:15; Admin Dose 2 PUFF; Start 10/18/16 at 22:30 Famotidine (Pepcid) 20 mg DAILY PO Last administered on 11/13/16 11:14; Admin Dose 20 MG; Start 10/19/16 at 09:00 Ondansetron HCl (Zofran Inj) 4 mg Q6H PRN IV NAUSEA AND/OR VOMITING; Start at 22:30 Acetaminophen (Tylenol Tab) 650 mg Q6H PRN PO PAIN LEVEL 1-3 OR FEVER Last administered on 11/01/16 02:36; Admin Dose 650 MG; Start 10/18/16 at 22:30 Docusate Sodium (Colace) 100 mg Q12H PRN PO CONSTIPATION Last administered on 18:01; Admin Dose 100 MG; Start 10/18/16 at 22:30 Bisacodyl (Dulcolax Supp) 10 mg DAILY PRN [place] CONSTIPATION Last administered on 10/26/16 07:04; Admin Dose 10 MG; Start 10/18/16 at 22:30 Diagnostic Test (Pha) (Accucheck) 1 ea 02 XX Last administered on 11/09/16 02: 03; Admin Dose 1 EA; Start 10/19/16 at 02:00 Miscellaneous Information 1 ea NOTE XX ; Start 10/18/16 at 22:30 Glucose (Glutose) 15 gm Q15M PRN PO DECREASED GLUCOSE; Start 10/18/16 at 22:30 Glucose (Glutose) 22.5 gm Q15M PRN PO DECREASED GLUCOSE; Start 10/18/16 at 22: 30 Dextrose (D50w Syringe) 25 ml Q15M PRN IV DECREASED GLUCOSE; Start 10/18/16 at 22:30 Dextrose (D50w Syringe) 50 ml Q15M PRN IV DECREASED GLUCOSE Last administered on 10/27/16 09:35; Admin Dose 50 ML; Start 10/18/16 at 22:30 Glucagon (Glucagen) 1 mg Q15M PRN IM DECREASED GLUCOSE; Start 10/18/16 at 22:30 Glucose (Glutose) 15 gm Q15M PRN BUCCAL DECREASED GLUCOSE; Start 10/18/16 at 22 :30 Aspirin (Halfprin) 81 mg DAILY PO Last administered on 11/13/16 11:13; Admin Dose 81 MG; Start 10/22/16 at 09:00 Lactobacillus Acidoph/Bulgaricus (Floranex) 1 tab BID PO Last administered on 11:12; Admin Dose 1 TAB; Start 10/22/16 at 21:00 Senna/Docusate Sodium (Senokot-S) 2 tab HS PO Last administered on 11/12/16 20 :16; Admin Dose 2 TAB; Start 10/22/16 at 21:00 Lactulose (Enulose) 20 gm TID PRN PO CONSTIPATION Last administered on 16:53; Admin Dose 20 GM; Start 10/23/16 at 17:30 Clonidine HCl (Catapres-Tts 1 Patch) 1 patch Q7D TRANSDERM Last administered on 11/07/16 08:34; Admin Dose 1 PATCH; Start 10/24/16 at 09:00 Sodium Biphosphate/ Sodium Phosphate (Fleet Enema) 133 ml DAILY PRN [place] CONSTIPATION Last administered on 10/26/16 18:33; Admin Dose 133 ML; Start at 18:00 Naloxone HCl (Narcan) 0.2 mg Q2M PRN IV RR 8 BREATHS/MIN OR LESS; Start at 13:00 Oxycodone/ Acetaminophen (Percocet (5/ 325)) 2 tab Q4H PRN PO PAIN Last administered on 11/10/16 14:14; Admin Dose 2 TAB; Start 10/28/16 at 15:00 Insulin Glargine (Lantus) 4 unit DAILY@20 SC Last administered on 11/12/16 20: 25; Admin Dose 4 UNIT; Start 10/29/16 at 20:00 Benazepril HCl (Lotensin) 10 mg BID PO Last administered on 11/13/16 11:14; Admin Dose 10 MG; Start 10/29/16 at 21:00 Nitroglycerin (Nitroglycerin (Sl Tab) 0.4 Mg) 1 tab Q5M PRN SL CHEST PAIN; Start 11/01/16 at 22:30 Amlodipine Besylate (Norvasc) 5 mg DAILY PO Last administered on 11/13/16 11: 13; Admin Dose 5 MG; Start 11/04/16 at 09:00 Hydromorphone HCl (Dilaudid) 2 mg Q2H PRN IV PAIN Last administered on 12:42; Admin Dose 2 MG; Start 11/03/16 at 19:30 Apixaban (Eliquis) 2.5 mg BID PO Last administered on 11/13/16 11:14; Admin Dose 2.5 MG; Start 11/05/16 at 11:30 Docusate Sodium (Colace) 100 mg DAILY PO Last administered on 11/13/16 11:13; Admin Dose 100 MG; Start 11/07/16 at 14:30 GERHARD ALVES Nov 13, 2016 15:38
[2016-11-13] MEDS: SENNA/DOCUSATE NA (8.6MG/50MG) TAB PO SCH (20:15)
[2016-11-13] MEDS: INSULIN GLARGINE [LANtus] 3 ML PEN SC SCH (20:25)
--- NOTE | 2016-11-13 21:44 | CONS ---
Date/Time of Note Date/Time of Note DATE: 11/13/16 TIME: 21:43 Assessment/Plan Assessment/Plan Additional Assessment/Plan 1. 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 Failed redo bypass.post-surgical intervention with thrombectomy, exploration of the above knee popliteal graft and debridement of left lower extremity wound with wound VAC application on 10/19/2016.- Not improving, s/p Left AKA by vascular surgery on 11/03/16 2. Severe stenosis of the right distal superficial femoral artery and occluded right posterior tibial artery. 3. End-stage renal disease on hemodialysis Tuesday, , Tuesday. 4. Accelerated hypertension. 5. Hyperlipidemia. 6. History of hypertension with peripheral arterial disease. 7. History of peripheral arterial disease status post left lower extremity bypass in September 2016. 8. hyperkalemia with K 6.0 s/p HD 2 days in a row PLAN: s/p New groin permacath, HD today now pt will be on TTS Schedule IV abx and wound care plan as per PMD, and vascular surgery let us know if pt needs IV abx in HD unit upon discharge will follow up Consultation Date/Type/Reason Admit Date/Time Oct 18, 2016 at 16:52 Initial Consult Date 10/18/2016 Type of Consultation: NEPHROLOGY Referring Provider: OZZIE HERRERA MD 24 HR Interval Summary Free Text/Dictation Transferred to telemetry floor, Plan for HD today Exam/Review of Systems Vital Signs Vitals Vital Signs Date Time Temp Pulse Resp B/P Pulse Ox O2 Delivery O2 Flow Rate FiO2 11/13/16 20:41 69 11/13/16 19:02 98.4 16 134/65 99 11/13/16 16:57 21 11/13/16 04:10 Room Air Intake and Output 11/12/16 11/12/16 11/13/16 15:00 23:00 07:00 Intake Total 300 ml Balance 300 ml Results Result Diagram: 11/11/16 0630 11/11/16 0630 Results 24 hrs Laboratory Tests Test 11/13/16 08:27 11/13/16 11:08 11/13/16 12:11 11/13/16 17:34 Bedside Glucose 128 212 195 107 Test 11/13/16 20:22 Bedside Glucose 171 Medications Medications Current Medications Metoprolol Tartrate (Lopressor) 25 mg BID PO Last administered on 11/13/16 20: 16; Admin Dose 25 MG; Start 10/18/16 at 19:21 Hydralazine HCl (Apresoline) 10 mg Q4H PRN IV SBP>150 mm Hg Last administered on 10/27/16 20:38; Admin Dose 10 MG; Start 10/18/16 at 20:00 Albuterol (Ventolin Hfa) 2 puff Q8 INH Last administered on 11/13/16 05:15; Admin Dose 2 PUFF; Start 10/18/16 at 22:30 Famotidine (Pepcid) 20 mg DAILY PO Last administered on 11/13/16 11:14; Admin Dose 20 MG; Start 10/19/16 at 09:00 Ondansetron HCl (Zofran Inj) 4 mg Q6H PRN IV NAUSEA AND/OR VOMITING; Start at 22:30 Acetaminophen (Tylenol Tab) 650 mg Q6H PRN PO PAIN LEVEL 1-3 OR FEVER Last administered on 11/01/16 02:36; Admin Dose 650 MG; Start 10/18/16 at 22:30 Docusate Sodium (Colace) 100 mg Q12H PRN PO CONSTIPATION Last administered on 18:01; Admin Dose 100 MG; Start 10/18/16 at 22:30 Bisacodyl (Dulcolax Supp) 10 mg DAILY PRN [place] CONSTIPATION Last administered on 10/26/16 07:04; Admin Dose 10 MG; Start 10/18/16 at 22:30 Diagnostic Test (Pha) (Accucheck) 1 ea 02 XX Last administered on 11/09/16 02: 03; Admin Dose 1 EA; Start 10/19/16 at 02:00 Miscellaneous Information 1 ea NOTE XX ; Start 10/18/16 at 22:30 Glucose (Glutose) 15 gm Q15M PRN PO DECREASED GLUCOSE; Start 10/18/16 at 22:30 Glucose (Glutose) 22.5 gm Q15M PRN PO DECREASED GLUCOSE; Start 10/18/16 at 22: 30 Dextrose (D50w Syringe) 25 ml Q15M PRN IV DECREASED GLUCOSE; Start 10/18/16 at 22:30 Dextrose (D50w Syringe) 50 ml Q15M PRN IV DECREASED GLUCOSE Last administered on 10/27/16 09:35; Admin Dose 50 ML; Start 10/18/16 at 22:30 Glucagon (Glucagen) 1 mg Q15M PRN IM DECREASED GLUCOSE; Start 10/18/16 at 22:30 Glucose (Glutose) 15 gm Q15M PRN BUCCAL DECREASED GLUCOSE; Start 10/18/16 at 22 :30 Aspirin (Halfprin) 81 mg DAILY PO Last administered on 11/13/16 11:13; Admin Dose 81 MG; Start 10/22/16 at 09:00 Lactobacillus Acidoph/Bulgaricus (Floranex) 1 tab BID PO Last administered on 20:15; Admin Dose 1 TAB; Start 10/22/16 at 21:00 Senna/Docusate Sodium (Senokot-S) 2 tab HS PO Last administered on 11/13/16 20 :15; Admin Dose 2 TAB; Start 10/22/16 at 21:00 Lactulose (Enulose) 20 gm TID PRN PO CONSTIPATION Last administered on 16:53; Admin Dose 20 GM; Start 10/23/16 at 17:30 Clonidine HCl (Catapres-Tts 1 Patch) 1 patch Q7D TRANSDERM Last administered on 11/07/16 08:34; Admin Dose 1 PATCH; Start 10/24/16 at 09:00 Sodium Biphosphate/ Sodium Phosphate (Fleet Enema) 133 ml DAILY PRN [place] CONSTIPATION Last administered on 10/26/16 18:33; Admin Dose 133 ML; Start at 18:00 Naloxone HCl (Narcan) 0.2 mg Q2M PRN IV RR 8 BREATHS/MIN OR LESS; Start at 13:00 Oxycodone/ Acetaminophen (Percocet (5/ 325)) 2 tab Q4H PRN PO PAIN Last administered on 11/10/16 14:14; Admin Dose 2 TAB; Start 10/28/16 at 15:00 Insulin Glargine (Lantus) 4 unit DAILY@20 SC Last administered on 11/13/16 20: 25; Admin Dose 4 UNIT; Start 10/29/16 at 20:00 Benazepril HCl (Lotensin) 10 mg BID PO Last administered on 11/13/16 20:16; Admin Dose 10 MG; Start 10/29/16 at 21:00 Nitroglycerin (Nitroglycerin (Sl Tab) 0.4 Mg) 1 tab Q5M PRN SL CHEST PAIN; Start 11/01/16 at 22:30 Amlodipine Besylate (Norvasc) 5 mg DAILY PO Last administered on 11/13/16 11: 13; Admin Dose 5 MG; Start 11/04/16 at 09:00 Hydromorphone HCl (Dilaudid) 2 mg Q2H PRN IV PAIN Last administered on 19:46; Admin Dose 2 MG; Start 11/03/16 at 19:30 Apixaban (Eliquis) 2.5 mg BID PO Last administered on 11/13/16 20:15; Admin Dose 2.5 MG; Start 11/05/16 at 11:30 Docusate Sodium (Colace) 100 mg DAILY PO Last administered on 11/13/16 11:13; Admin Dose 100 MG; Start 11/07/16 at 14:30 LISA MERRITT MD Nov 13, 2016 21:44
[2016-11-14] VITALS (7 sets, daily range): BP systolic 118–138; BP diastolic 59–64; PULSE 56–65; RESP 16–20
[2016-11-14] MEDS: ACCU-CHEK XX SCH (02:00)
[2016-11-14] MEDS: ALBUTEROL HFA 8 GM INHALER INH SCH (05:45)
[2016-11-14] MEDS: HYDROmorphONE 2 MG/ML SYG IV PRN ×2 (05:46→09:14)
[2016-11-14] MEDS: INSULIN ASPART [NOVOLOG] 3 ML PEN SC SCH ×2 (07:55→12:07)
[2016-11-14] MEDS: AMLODIPINE 5 MG TAB PO SCH (08:59)
[2016-11-14] MEDS: CLONIDINE 0.1 MG/24 HR PATCH TRANSDERM SCH (08:59)
[2016-11-14] MEDS: DOCUSATE SODIUM 100 MG CAP PO SCH (08:59)
[2016-11-14] MEDS: APIXABAN 5 MG TABLET PO SCH (09:00)
[2016-11-14] MEDS: BENAZEPRIL 10 MG TAB PO SCH (09:00)
[2016-11-14] MEDS: LACTOBACILLUS CHEW TAB PO SCH (09:00)
[2016-11-14] MEDS: ASPIRIN (EC) 81 MG TAB PO SCH (09:00)
[2016-11-14] MEDS: FAMOTIDINE 20 MG TAB PO SCH (09:00)
[2016-11-14] MEDS: METOPROLOL 25 MG TAB PO SCH (09:01)
--- NOTE | 2016-11-14 10:44 | CONS ---
Date/Time of Note Date/Time of Note DATE: 11/14/16 TIME: 10:42 Assessment/Plan Assessment/Plan Additional Assessment/Plan 1. 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 Failed redo bypass.post-surgical intervention with thrombectomy, exploration of the above knee popliteal graft and debridement of left lower extremity wound with wound VAC application on 10/19/2016.- Not improving, s/p Left AKA by vascular surgery on 11/03/16 2. Severe stenosis of the right distal superficial femoral artery and occluded right posterior tibial artery. 3. End-stage renal disease on hemodialysis Tuesday, , Tuesday. 4. Accelerated hypertension. 5. Hyperlipidemia. 6. History of hypertension with peripheral arterial disease. 7. History of peripheral arterial disease status post left lower extremity bypass in September 2016. 8. hyperkalemia with K 6.0 s/p HD 2 days in a row PLAN: s/p New groin permacath,s/p HD yesterday 2 L removed, will continue HD on TTS schedule IV abx and wound care plan as per PMD, and vascular surgery let us know if pt needs IV abx in HD unit upon discharge will follow up Consultation Date/Type/Reason Admit Date/Time Oct 18, 2016 at 16:52 Initial Consult Date 10/18/2016 Type of Consultation: NEPHROLOGY Reason for Consultation ESRD on HD Referring Provider: OZZIE HERRERA MD 24 HR Interval Summary Free Text/Dictation pt stable, S/p HD yesterday 2 L removed Exam/Review of Systems Vital Signs Vitals Vital Signs Date Time Temp Pulse Resp B/P Pulse Ox O2 Delivery O2 Flow Rate FiO2 11/14/16 08:28 64 11/14/16 07:38 98.3 20 138/64 98 11/13/16 16:57 21 11/13/16 04:10 Room Air Intake and Output 11/13/16 11/13/16 11/14/16 15:00 23:00 07:00 Intake Total 500 ml 720 ml 400 ml Output Total 2500 ml Balance -2000 ml 720 ml 400 ml Exam GENERAL: This is a fragile well-developed elderly man who is alert, in no distress. HEENT: Head atraumatic, normocephalic. Sclerae anicteric. Buccal mucosa dry. NECK: Supple, trachea midline. CHEST: Rise symmetrical. Breath sounds diminished at the bases. HEART: S1, S2. ABDOMEN: Soft. Bowel tones present. EXTREMITIES: Left above-knee amputation stump ricarda intact. Results Result Diagram: 11/11/16 0630 11/11/16 0630 Results 24 hrs Laboratory Tests Test 11/13/16 11:08 11/13/16 12:11 11/13/16 17:34 11/13/16 20:22 Bedside Glucose 212 195 107 171 Test 11/14/16 08:15 Bedside Glucose 91 Medications Medications Current Medications Metoprolol Tartrate (Lopressor) 25 mg BID PO Last administered on 11/14/16 09: 01; Admin Dose 25 MG; Start 10/18/16 at 19:21 Hydralazine HCl (Apresoline) 10 mg Q4H PRN IV SBP>150 mm Hg Last administered on 10/27/16 20:38; Admin Dose 10 MG; Start 10/18/16 at 20:00 Albuterol (Ventolin Hfa) 2 puff Q8 INH Last administered on 11/14/16 05:45; Admin Dose 2 PUFF; Start 10/18/16 at 22:30 Famotidine (Pepcid) 20 mg DAILY PO Last administered on 11/14/16 09:00; Admin Dose 20 MG; Start 10/19/16 at 09:00 Ondansetron HCl (Zofran Inj) 4 mg Q6H PRN IV NAUSEA AND/OR VOMITING; Start at 22:30 Acetaminophen (Tylenol Tab) 650 mg Q6H PRN PO PAIN LEVEL 1-3 OR FEVER Last administered on 11/01/16 02:36; Admin Dose 650 MG; Start 10/18/16 at 22:30 Docusate Sodium (Colace) 100 mg Q12H PRN PO CONSTIPATION Last administered on 18:01; Admin Dose 100 MG; Start 10/18/16 at 22:30 Bisacodyl (Dulcolax Supp) 10 mg DAILY PRN [place] CONSTIPATION Last administered on 10/26/16 07:04; Admin Dose 10 MG; Start 10/18/16 at 22:30 Diagnostic Test (Pha) (Accucheck) 1 ea 02 XX Last administered on 11/09/16 02: 03; Admin Dose 1 EA; Start 10/19/16 at 02:00 Miscellaneous Information 1 ea NOTE XX ; Start 10/18/16 at 22:30 Glucose (Glutose) 15 gm Q15M PRN PO DECREASED GLUCOSE; Start 10/18/16 at 22:30 Glucose (Glutose) 22.5 gm Q15M PRN PO DECREASED GLUCOSE; Start 10/18/16 at 22: 30 Dextrose (D50w Syringe) 25 ml Q15M PRN IV DECREASED GLUCOSE; Start 10/18/16 at 22:30 Dextrose (D50w Syringe) 50 ml Q15M PRN IV DECREASED GLUCOSE Last administered on 10/27/16 09:35; Admin Dose 50 ML; Start 10/18/16 at 22:30 Glucagon (Glucagen) 1 mg Q15M PRN IM DECREASED GLUCOSE; Start 10/18/16 at 22:30 Glucose (Glutose) 15 gm Q15M PRN BUCCAL DECREASED GLUCOSE; Start 10/18/16 at 22 :30 Aspirin (Halfprin) 81 mg DAILY PO Last administered on 11/14/16 09:00; Admin Dose 81 MG; Start 10/22/16 at 09:00 Lactobacillus Acidoph/Bulgaricus (Floranex) 1 tab BID PO Last administered on 09:00; Admin Dose 1 TAB; Start 10/22/16 at 21:00 Senna/Docusate Sodium (Senokot-S) 2 tab HS PO Last administered on 11/13/16 20 :15; Admin Dose 2 TAB; Start 10/22/16 at 21:00 Lactulose (Enulose) 20 gm TID PRN PO CONSTIPATION Last administered on 16:53; Admin Dose 20 GM; Start 10/23/16 at 17:30 Clonidine HCl (Catapres-Tts 1 Patch) 1 patch Q7D TRANSDERM Last administered on 11/14/16 08:59; Admin Dose 1 PATCH; Start 10/24/16 at 09:00 Sodium Biphosphate/ Sodium Phosphate (Fleet Enema) 133 ml DAILY PRN [place] CONSTIPATION Last administered on 10/26/16 18:33; Admin Dose 133 ML; Start at 18:00 Naloxone HCl (Narcan) 0.2 mg Q2M PRN IV RR 8 BREATHS/MIN OR LESS; Start at 13:00 Oxycodone/ Acetaminophen (Percocet (5/ 325)) 2 tab Q4H PRN PO PAIN Last administered on 11/10/16 14:14; Admin Dose 2 TAB; Start 10/28/16 at 15:00 Insulin Glargine (Lantus) 4 unit DAILY@20 SC Last administered on 11/13/16 20: 25; Admin Dose 4 UNIT; Start 10/29/16 at 20:00 Benazepril HCl (Lotensin) 10 mg BID PO Last administered on 11/14/16 09:00; Admin Dose 10 MG; Start 10/29/16 at 21:00 Nitroglycerin (Nitroglycerin (Sl Tab) 0.4 Mg) 1 tab Q5M PRN SL CHEST PAIN; Start 11/01/16 at 22:30 Amlodipine Besylate (Norvasc) 5 mg DAILY PO Last administered on 11/14/16 08: 59; Admin Dose 5 MG; Start 11/04/16 at 09:00 Hydromorphone HCl (Dilaudid) 2 mg Q2H PRN IV PAIN Last administered on 09:14; Admin Dose 2 MG; Start 11/03/16 at 19:30 Apixaban (Eliquis) 2.5 mg BID PO Last administered on 11/14/16 09:00; Admin Dose 2.5 MG; Start 11/05/16 at 11:30 Docusate Sodium (Colace) 100 mg DAILY PO Last administered on 11/14/16 08:59; Admin Dose 100 MG; Start 11/07/16 at 14:30 LISA MERRITT MD Nov 14, 2016 10:44
--- NOTE | 2016-11-14 13:24 | CONS ---
Date/Time of Note Date/Time of Note DATE: 11/14/16 TIME: 13:22 Assessment/Plan Assessment/Plan Additional Assessment/Plan 1. Systemic inflammatory response syndrome. 2. 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 3. End-stage renal disease, hemodialysis dependent. 4. Diabetes. 5. Healthcare-acquired pneumonia 6. History of peripheral arterial disease status post left lower extremity bypass in September 2016 7. Hypertension 8. Pulmonary embolism 9.Post-op s/p LE amputation He is hemodynamically stable HD as scheduled Continue Benazepril and Metoprolol Continue Eliquis Continue ASA Continue Insulin Continue Antibiotics Continue GI and DVT Prophylaxis Consultation Date/Type/Reason Admit Date/Time Oct 18, 2016 at 16:52 Initial Consult Date 11/04/16 Type of Consultation: NEPHROLOGY Referring Provider: OZZIE HERRERA MD Exam/Review of Systems Vital Signs Vitals Vital Signs Date Time Temp Pulse Resp B/P Pulse Ox O2 Delivery O2 Flow Rate FiO2 11/14/16 12:20 56 11/14/16 11:52 98.4 20 118/59 100 11/13/16 16:57 21 11/13/16 04:10 Room Air Intake and Output 11/13/16 11/13/16 11/14/16 14:59 22:59 06:59 Intake Total 500 ml 720 ml 400 ml Output Total 2500 ml Balance -2000 ml 720 ml 400 ml Exam Constitutional: alert Head: atraumatic, normocephalic Respiratory: diminished breath sounds Cardiovascular: regular rate and rhythm Gastrointestinal: nl liver, spleen, soft Extremities: other (Left above-knee amputation stump ) Results Result Diagram: 11/11/1630 11/11/16 0630 Results 24 hrs Laboratory Tests Test 11/13/16 17:34 11/13/16 20:22 11/14/16 08:15 11/14/16 12:00 Bedside Glucose 107 171 91 141 Medications Medications Current Medications Metoprolol Tartrate (Lopressor) 25 mg BID PO Last administered on 11/14/16 09: 01; Admin Dose 25 MG; Start 10/18/16 at 19:21 Hydralazine HCl (Apresoline) 10 mg Q4H PRN IV SBP>150 mm Hg Last administered on 10/27/16 20:38; Admin Dose 10 MG; Start 10/18/16 at 20:00 Albuterol (Ventolin Hfa) 2 puff Q8 INH Last administered on 11/14/16 05:45; Admin Dose 2 PUFF; Start 10/18/16 at 22:30 Famotidine (Pepcid) 20 mg DAILY PO Last administered on 11/14/16 09:00; Admin Dose 20 MG; Start 10/19/16 at 09:00 Ondansetron HCl (Zofran Inj) 4 mg Q6H PRN IV NAUSEA AND/OR VOMITING; Start at 22:30 Acetaminophen (Tylenol Tab) 650 mg Q6H PRN PO PAIN LEVEL 1-3 OR FEVER Last administered on 11/01/16 02:36; Admin Dose 650 MG; Start 10/18/16 at 22:30 Docusate Sodium (Colace) 100 mg Q12H PRN PO CONSTIPATION Last administered on 18:01; Admin Dose 100 MG; Start 10/18/16 at 22:30 Bisacodyl (Dulcolax Supp) 10 mg DAILY PRN [place] CONSTIPATION Last administered on 10/26/16 07:04; Admin Dose 10 MG; Start 10/18/16 at 22:30 Diagnostic Test (Pha) (Accucheck) 1 ea 02 XX Last administered on 11/09/16 02: 03; Admin Dose 1 EA; Start 10/19/16 at 02:00 Miscellaneous Information 1 ea NOTE XX ; Start 10/18/16 at 22:30 Glucose (Glutose) 15 gm Q15M PRN PO DECREASED GLUCOSE; Start 10/18/16 at 22:30 Glucose (Glutose) 22.5 gm Q15M PRN PO DECREASED GLUCOSE; Start 10/18/16 at 22: 30 Dextrose (D50w Syringe) 25 ml Q15M PRN IV DECREASED GLUCOSE; Start 10/18/16 at 22:30 Dextrose (D50w Syringe) 50 ml Q15M PRN IV DECREASED GLUCOSE Last administered on 10/27/16 09:35; Admin Dose 50 ML; Start 10/18/16 at 22:30 Glucagon (Glucagen) 1 mg Q15M PRN IM DECREASED GLUCOSE; Start 10/18/16 at 22:30 Glucose (Glutose) 15 gm Q15M PRN BUCCAL DECREASED GLUCOSE; Start 10/18/16 at 22 :30 Aspirin (Halfprin) 81 mg DAILY PO Last administered on 11/14/16 09:00; Admin Dose 81 MG; Start 10/22/16 at 09:00 Lactobacillus Acidoph/Bulgaricus (Floranex) 1 tab BID PO Last administered on 09:00; Admin Dose 1 TAB; Start 10/22/16 at 21:00 Senna/Docusate Sodium (Senokot-S) 2 tab HS PO Last administered on 11/13/16 20 :15; Admin Dose 2 TAB; Start 10/22/16 at 21:00 Lactulose (Enulose) 20 gm TID PRN PO CONSTIPATION Last administered on 16:53; Admin Dose 20 GM; Start 10/23/16 at 17:30 Clonidine HCl (Catapres-Tts 1 Patch) 1 patch Q7D TRANSDERM Last administered on 11/14/16 08:59; Admin Dose 1 PATCH; Start 10/24/16 at 09:00 Sodium Biphosphate/ Sodium Phosphate (Fleet Enema) 133 ml DAILY PRN [place] CONSTIPATION Last administered on 10/26/16 18:33; Admin Dose 133 ML; Start at 18:00 Naloxone HCl (Narcan) 0.2 mg Q2M PRN IV RR 8 BREATHS/MIN OR LESS; Start at 13:00 Oxycodone/ Acetaminophen (Percocet (5/ 325)) 2 tab Q4H PRN PO PAIN Last administered on 11/10/16 14:14; Admin Dose 2 TAB; Start 10/28/16 at 15:00 Insulin Glargine (Lantus) 4 unit DAILY@20 SC Last administered on 11/13/16 20: 25; Admin Dose 4 UNIT; Start 10/29/16 at 20:00 Benazepril HCl (Lotensin) 10 mg BID PO Last administered on 11/14/16 09:00; Admin Dose 10 MG; Start 10/29/16 at 21:00 Nitroglycerin (Nitroglycerin (Sl Tab) 0.4 Mg) 1 tab Q5M PRN SL CHEST PAIN; Start 11/01/16 at 22:30 Amlodipine Besylate (Norvasc) 5 mg DAILY PO Last administered on 11/14/16 08: 59; Admin Dose 5 MG; Start 11/04/16 at 09:00 Hydromorphone HCl (Dilaudid) 2 mg Q2H PRN IV PAIN Last administered on 09:14; Admin Dose 2 MG; Start 11/03/16 at 19:30 Apixaban (Eliquis) 2.5 mg BID PO Last administered on 11/14/16 09:00; Admin Dose 2.5 MG; Start 11/05/16 at 11:30 Docusate Sodium (Colace) 100 mg DAILY PO Last administered on 11/14/16 08:59; Admin Dose 100 MG; Start 11/07/16 at 14:30 MICHAEL DIMAS M.D. Nov 14, 2016 13:24
[2016-11-14] MEDS: NA PHOSPHATE/BIPHOS 133 ML ENEMA PR PRN (14:49)
--- NOTE | 2016-11-15 14:31 | DS ---
Date/Time of Note Date/Time of Note DATE: 11/15/16 TIME: 14:21 Discharge Summary Admission/Discharge Info Admit Date/Time Oct 18, 2016 at 16:52 Discharge Date/Time Nov 14, 2016 at 16:35 Final Diagnosis 1. 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 2. End-stage renal disease. 3. Essential hypertension. 4. Anemia of chronic disease. 5. Diabetes. 6. CAD. 7. PVD. 8. Reported acute respiratory distress. 9. Leukocytosis. 10. hx Pulmonary embolism. Consults 1. Dr. Bridger Paige 2. Dr. Nigel Galindo 3. Dr. Etienne Acevedo 4. Dr. Bradley Quintero 5. Dr. [facility] Course This is a 65-year-old male with history of lower extremity gangrene, PAD, ESRD, on HD, hypertension, hypertensive nephrosclerosis, diabetes, diabetic neuropathy , diabetic nephropathy, PAD, CAD, who came to [facility] secondary to having left foot gangrene. Patient was also found to have hypertensive urgency with blood pressure as high as 190/80. He was seen by vascular surgeon and of note he did have a history of bypass graft. He did have venous evaluation that showed right lower extremity venous mapping that was done. Ultrasound of bilateral lower extremity showed right-sided severe stenosis of the distal superficial for more artery and occluded right posterior tibial artery on the left abnormal flow throughout suspect for iliac disease. Patient did have multiple surgical interventions including an exploration of the distal posterior tibial artery and plantar artery, thymectomy of Femara posterior tibial and superficial bypass vein graft, expiration of above-the- knee popliteal graft and interposition bypass graft up up to graft to distal posterior tibial artery using xenograft. Patient still progressed with worsening of his gangrene on the left foot. It was decided for patient to have below the knee amputation and irrigation and debridement of the skin. Patient did tolerate it well although secondary to severe peripheral artery disease and vascular disease patient did have some poor wound healing despite aggressive medical management.Antibiotics as well. He was again taken to the OR for further surgery for now above the knee amputation on the left side. He did have Escherichia coli in the wound and was placed on appropriate antibiotics. During his course of stay did improve. We did continue with wound care management. For patient's ESRD he did obtain a right common femoral vein tunneled hemodialysis catheter placement in the right common femoral vein. After discussion with the patient we did initially try to place patient in long-term facility for further management and care however due to insurance issues were not able to obtain this. Patient was agreeable to home with home services. During his course of stay did improve. He was otherwise optimized medically. 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 He was resumed on antihypertensives for hypertension and insulin for his diabetes. He was continued on antiplatelet therapy for his CAD as well as for his PVD. He did have an episode of respiratory distress tachycardia secondary to to fluid overload and he was improved with dialysis and he was seen by windows vmware administrator for this as well. He did have a history of pulmonary embolism and he was resumed on his eliquis. The plan of care was discussed with the patient patient did verbalize understanding. On the day of discharge patient was in stable condition Discussed but of care with Dr. Monsalve Discharge process time: 40 minutes Home Meds Active Scripts Glipizide* (Glipizide*) 5 Mg Tablet, 2.5 MG PO DAILY, #30 TAB Prov:OZZIE HERRERA MD 11/10/16 Famotidine* (Famotidine*) 20 Mg Tablet, 20 MG PO DAILY, #30 TAB Prov:OZZIE HERRERA MD 11/10/16 Docusate Sodium (Dok) 100 Mg Capsule, 100 MG PO DAILY, #30 CAP Prov:OZZIE HERRERA MD 11/10/16 Aspirin* (Aspirin* EC) 81 Mg Tablet.dr, 81 MG PO DAILY, #30 Prov:OZZIE HERRERA MD 11/10/16 Nitroglycerin* (Nitrostat*) 0.4 Mg Tab.subl, 1 TAB SL Q5M Y for CHEST PAIN, #60 Prov:OZZIE HERRERA MD 11/10/16 Metoprolol Tartrate* (Lopressor*) 25 Mg Tab, 25 MG PO BID, #60 TAB Prov:OZZIE HERRERA MD 11/10/16 Clonidine Patch (CATAPRES PATCH) 0.1 Mg/24 Hr Patch, 1 PATCH TRANSDERM Q7D for 30 Days, #4 PATCH Prov:OZZIE HERRERA MD 11/10/16 Benazepril Hcl* (Benazepril Hcl*) 10 Mg Tablet, 10 MG PO BID, #60 TAB Prov:OZZIE HERRERA MD 11/10/16 Apixaban* (Eliquis*) 5 Mg Tablet, 2.5 MG PO BID, #60 TAB Prov:OZZIE HERRERA MD 11/10/16 Albuterol Sulfate* (Ventolin HFA*) 18 Gm Hfa.aer.ad, 2 PUFF INH Q8 for 30 Days Prov:OZZIE HERRERA MD 11/10/16 Hydrocodone/Acetaminophen ([place] 5-325 Tablet) 1 Each Tablet, 1 EACH PO Q6H Y for PAIN, #60 TAB Prov:OZZIE HERRERA MD 11/10/16 Amlodipine Besylate* (Amlodipine Besylate*) 10 Mg Tablet, 10 MG PO DAILY, #30 TAB Prov:OZZIE HERRERA MD 11/10/16 Follow-up Plan HOME CARE INSTRUCTIONS: Special Diet: 1800 dione ada ACTIVITY: Activity Restrictions: Slowly Increase Activity Rest between Activity Avoid heavy lifting Avoid Heavy Housework Keep Limb Elevated FOLLOW UP/APPOINTMENTS Appointments Follow up with nephrology as out-pt Follow up with Vascular surgeon as out-pt Follow up with PCP as out-pt Follow up with cardiology as outpt GERHARD ALVES Nov 15, 2016 14:31
== END 2016-11-14 16:35 | disposition home health service (06) | DRG 239 ==
LOC: E/R 12:43 → MS2 16:52 → ICU 10-19 18:34 → MS2 10-21 14:02 → ICU 11-02 11:42 → TEL 11-05 15:20
PROVIDERS: ADMIT Family Medicine; ATTEND Family Medicine
PROC: 5A1D60Z (ICD-10-PCS; 2016-10-18)
PROC: 0KBT0ZZ Excision of Left Lower Leg Muscle, Open Approach (ICD-10-PCS; 2016-10-19)
PROC: 0HRLXK3 Replacement of Left Lower Leg Skin with Nonautologous Tissue Substitute, Full Thickness, External Approach (ICD-10-PCS; 2016-10-19)
PROC: 04CS0ZZ Extirpation of Matter from Left Posterior Tibial Artery, Open Approach (ICD-10-PCS; 2016-10-19)
PROC: 0KXT0ZZ Transfer Left Lower Leg Muscle, Open Approach (ICD-10-PCS; 2016-10-19)
PROC: 30233N1 Transfusion of Nonautologous Red Blood Cells into Peripheral Vein, Percutaneous Approach (ICD-10-PCS; 2016-10-19)
PROC: 041 Lower Arteries, Bypass (ICD-10-PCS; principal; 2016-10-19 11:00)
PROC: 0Y6G0ZZ Detachment at Left Knee Region, Open Approach (ICD-10-PCS; 2016-10-27)
PROC: 0YP Anatomical Regions, Lower Extremities, Removal (ICD-10-PCS; 2016-10-27)
PROC: 05PYX3Z Removal of Infusion Device from Upper Vein, External Approach (ICD-10-PCS; 2016-11-01)
PROC: 06HY33Z Insertion of Infusion Device into Lower Vein, Percutaneous Approach (ICD-10-PCS; 2016-11-02)
PROC: 0Y680ZZ Detachment at Left Femoral Region, Open Approach (ICD-10-PCS; 2016-11-03)
PROC: 06HY33Z Insertion of Infusion Device into Lower Vein, Percutaneous Approach (ICD-10-PCS; 2016-11-04)
PROC: 06HY33Z Insertion of Infusion Device into Lower Vein, Percutaneous Approach (ICD-10-PCS; 2016-11-09)
PROC: 05HM33Z Insertion of Infusion Device into Right Internal Jugular Vein, Percutaneous Approach (ICD-10-PCS; 2016-11-09)
DX: T82.868A Thrombosis due to vascular prosthetic devices, implants and grafts, initial encounter (principal); N18.6 End stage renal disease; J96.01 Acute respiratory failure with hypoxia; I26.99 Other pulmonary embolism without acute cor pulmonale; J18.9 Pneumonia, unspecified organism; I70.261 Atherosclerosis of native arteries of extremities with gangrene, right leg; E11.52 Type 2 diabetes mellitus with diabetic peripheral angiopathy with gangrene; I12.0 Hypertensive chronic kidney disease with stage 5 chronic kidney disease or end stage renal disease; I42.9 Cardiomyopathy, unspecified; T82.41XA Breakdown (mechanical) of vascular dialysis catheter, initial encounter; I13.10 Hypertensive heart and chronic kidney disease without heart failure, with stage 1 through stage 4 chronic kidney disease, or unspecified chronic kidney disease; I16.0 Hypertensive urgency; L97.529 Non-pressure chronic ulcer of other part of left foot with unspecified severity; I25.10 Atherosclerotic heart disease of native coronary artery without angina pectoris; E11.22 Type 2 diabetes mellitus with diabetic chronic kidney disease; E78.5 Hyperlipidemia, unspecified; E11.621 Type 2 diabetes mellitus with foot ulcer; D63.8 Anemia in other chronic diseases classified elsewhere; R07.9 Chest pain, unspecified; E87.5 Hyperkalemia; T82.7XXA Infection and inflammatory reaction due to other cardiac and vascular devices, implants and grafts, initial encounter; T87.89 Other complications of amputation stump; I25.2 Old myocardial infarction; L97.519 Non-pressure chronic ulcer of other part of right foot with unspecified severity; B96.20 Unspecified Escherichia coli [E. coli] as the cause of diseases classified elsewhere; Y83.2 Surgical operation with anastomosis, bypass or graft as the cause of abnormal reaction of the patient, or of later complication, without mention of misadventure at the time of the procedure; Y83.8 Other surgical procedures as the cause of abnormal reaction of the patient, or of later complication, without mention of misadventure at the time of the procedure; Y92.89 Other specified places as the place of occurrence of the external cause; Y92.238 Other place in hospital as the place of occurrence of the external cause; Z87.891 Personal history of nicotine dependence; Z99.2 Dependence on renal dialysis
CPT/HCPCS: 36430; 36600; 71010; 71275; 72170; 75635; 75716; 75820; 76942; 80048; 80053; 80061; 82306; 82550; 82553; 82803; 82962; 83036; 83540; 83735; 83880; 84100; 84443; 84484; 85025; 85378; 85610; 85730; 86850; 86900; 86901; 86920; 87040; 87070; 87075; 87081; 87102; 88300; 88307; 88311; 90935; 93005; 93306; 93923; 93926; 93970; 96374; 97162; 97164; C1768; J0330; J0360; J0690; J0696; J1100; J1170; J1644; J1815; J1940; J2185; J2250; J2270; J2370; J2405; J2440; J2543; J2710; J2765; J2795; J2997; J3010; J3370; J7030; J7040; P9016; Q4118; Q4166; Q9967

== ENCOUNTER 2016-11-19 16:09 | Inpatient (IN) | payer MEDICAID ==
[~2016-11-19] VITALS: Ht 167.6 cm; Wt 57.7 kg
[~2016-11-19 16:09] MED LIST: ALBU18HF INH; AMLO-147 PO; APIX5TAB PO; ASPI-664 PO; BENA10TA48 PO; CATTTS1 TRANSDERM; DOCU-216 PO; FAMO20TA18 PO; GLIP5TAB13 PO; HYDR-906 PO; METO-448 PO; NIT4 SL
[2016-11-19] MEDS ORDERED: PIPER-TAZO 3.375 GM IV (PMX) 100 ML IVPB STA (18:11)
[2016-11-19] MEDS ORDERED: CLINDAMYCIN 900 MG/D5W (PMX) 50 ML IVPB STA (18:11)
[2016-11-19] MEDS ORDERED: morphine 4 MG/ML VIAL IV STA (19:19)
[2016-11-19] MEDS ORDERED: ONDANSETRON 4 MG INJ IV STA ×2 (19:19→20:40)
--- NOTE | 2016-11-19 19:19 | ERA ---
ER Documentation Chief Complaint Date/Time DATE: 11/19/16 TIME: 19:[address] Chief [address] BY DR NAGY FOR WOUND CHECK FOR FOOT ULCER HPI This is a very pleasant 65-year-old [place]ander-speaking male with a known history of end-stage renal disease on hemodialysis every Tuesday and Tuesday with a right femoral tunneled catheter who presents to the emergency department complaining of pain and discoloration of his right big toe and right heel that has progressively worsened over the past several days. He also indicates that for the past 48 hours he has been experiencing pain at rest of the right foot. The patient underwent a left below the knee amputation on October 15, 2016 followed by a [id number] amputation on the left on November 07, 2016 due to gangrene of the left lower extremity. The patient has had no fevers or shaking or chills. The pain in his right big toe is 10 out of 10 in intensity. He denies any shortness of breath at rest or exertion. The patient's vascular surgeon is Dr. Quintero who is aware that the patient has presented to the emergency department ROS All systems reviewed and are negative except as per history of present illness. Medications Home Meds Active Scripts Famotidine* (Famotidine*) 20 Mg Tablet, 20 MG PO DAILY, #30 TAB Prov:OZZIE HERRERA MD 11/10/16 Docusate Sodium (Dok) 100 Mg Capsule, 100 MG PO DAILY, #30 CAP Prov:OZZIE HERRERA MD 11/10/16 Aspirin* (Aspirin* EC) 81 Mg Tablet.dr, 81 MG PO DAILY, #30 Prov:OZZIE HERRERA MD 11/10/16 Nitroglycerin* (Nitrostat*) 0.4 Mg Tab.subl, 1 TAB SL Q5M Y for CHEST PAIN, #60 Prov:OZZIE HERRERA MD 11/10/16 Metoprolol Tartrate* (Lopressor*) 25 Mg Tab, 25 MG PO BID, #60 TAB Prov:OZZIE HERRERA MD 11/10/16 Clonidine Patch (CATAPRES PATCH) 0.1 Mg/24 Hr Patch, 1 PATCH TRANSDERM Q7D for 30 Days, #4 PATCH Prov:OZZIE HERRERA MD 11/10/16 Benazepril Hcl* (Benazepril Hcl*) 10 Mg Tablet, 10 MG PO BID, #60 TAB Prov:OZZIE HERRERA MD 11/10/16 Apixaban* (Eliquis*) 5 Mg Tablet, 2.5 MG PO BID, #60 TAB Prov:OZZIE HERRERA MD 11/10/16 Albuterol Sulfate* (Ventolin HFA*) 18 Gm Hfa.aer.ad, 2 PUFF INH Q8 for 30 Days Prov:OZZIE HERRERA MD 11/10/16 Hydrocodone/Acetaminophen ([place] 5-325 Tablet) 1 Each Tablet, 1 EACH PO Q6H Y for PAIN, #60 TAB Prov:OZZIE HERRERA MD 11/10/16 Amlodipine Besylate* (Amlodipine Besylate*) 10 Mg Tablet, 10 MG PO DAILY, #30 TAB Prov:OZZIE HERRERA MD 11/10/16 Discontinued Scripts Glipizide* (Glipizide*) 5 Mg Tablet, 2.5 MG PO DAILY, #30 TAB Prov:OZZIE HERRERA MD 11/10/16 Allergies Allergies: Coded Allergies: vancomycin (Verified Allergy, Intermediate, rash, 11/19/16) PMhx/Soc History of Surgery: Yes (LT FEMORAL BYPASS, LT ILIOFEMORAL ENDARTERECTOMY) Anesthesia Reaction: No Hx Neurological Disorder: Yes (DIABETIC NEUROPATHY) Hx Respiratory Disorders: No Hx Cardiac Disorders: Yes (HTN, HICH CHOLESTEROL, CAD) Hx Psychiatric Problems: No Hx Miscellaneous Medical Probl: Yes (ANEMIA, CAD) Hx Alcohol Use: No Hx Substance Use: No Hx Tobacco Use: Yes Physical Exam Vitals Vital Signs Date Time Temp Pulse Resp B/P Pulse Ox O2 Delivery O2 Flow Rate FiO2 11/19/16 21:11 98.7 65 16 123/46 99 Room Air 11/19/16 20:00 61 132/68 99 Room Air 11/19/16 16:18 99.0 64 18 131/60 99 Physical Exam Constitutional:Well-developed. Well-nourished. HEENT:Normocephalic. Atraumatic.Pupils were equal round reactive to light. Moist mucous membranes.No tonsillar exudates. Conjunctival pallor Neck: No nuchal rigidity. No lymphadenopathy. No posterior cervical spine tenderness or step-offs. Respiratory: Not using accessory muscles of respiration.Lungs were clear to auscultation bilaterally. No rhonchi. No rales. No wheezing. Cardiovascular: Regular rate regular rhythm.No murmurs. No rubs were appreciated.S1, S2 normal. GI: Abdomen was soft. Nontender. Non Distended. No pulsatile abdominal masses or bruits. No rebound. No guarding. Bowel sounds were present and normal. Muscle skeletal: Full range motion of bilateral upper extremities. Left above- the-knee amputation and stump is clean dry and intact. Skin: No petechia, no purpura. No lesions on the palms or the soles of the feet. No maculopapular rash. Necrosis of the right big toe, right calcaneus and right second toe. Dorsalis pedis and posterior tibialis on the left were diminished. NEURO: Patient was alert, awake, orientated x3.No facial droop. Gait observed and normal with no ataxia.Speech had regular rate and rhythm. No focal neurological deficits. Result Diagram: 11/19/16184911/[id number]/161849 Results 24 hrs Laboratory Tests Test 11/19/16 18:50 11/19/16 20:12 White Blood Count 11.210^3/ul Red Blood Count 2.3310^6/ul Hemoglobin 7.5g/dl Hematocrit 24.3% Mean Corpuscular Volume 104.3fl Mean Corpuscular Hemoglobin 32.2pg Mean Corpuscular Hemoglobin Concent 30.9g/dl Red Cell Distribution Width 17.0% Platelet Count 82148^3/UL Mean Platelet Volume 11.3fl Neutrophils % 55.2% Lymphocytes % 28.0% Monocytes % 13.9% Eosinophils % 1.9% Basophils % 0.5% Nucleated Red Blood Cells % 0.0/100WBC Neutrophils # 6.210^3/ul Lymphocytes # 3.210^3/ul Monocytes # 1.610^3/ul Eosinophils # 0.210^3/ul Basophils # 0.110^3/ul Nucleated Red Blood Cells # 0.010^3/ul Platelet Estimate PLT APPEAR ADEQUATE Prothrombin Time 15.9Sec Prothrombin Time Ratio 1.2 INR International Normalized Ratio 1.26 Activated Partial Thromboplast Time 30.4Sec Sodium Level 132mmol/L Potassium Level 5.0mmol/L Chloride Level 98mmol/L Carbon Dioxide Level 26mmol/L Anion Gap 13 Blood Urea Nitrogen 45mg/dl Creatinine 5.29mg/dl Glucose Level 133mg/dl Lactic Acid Level 1.0mmol/L 1.5mmol/L Calcium Level 8.3mg/dl Total Bilirubin 0.0mg/dl Direct Bilirubin 0.00mg/dl Indirect Bilirubin 0.0mg/dl Aspartate Amino Transf (AST/SGOT) 22IU/L Alanine Aminotransferase (ALT/SGPT) 28IU/L Alkaline Phosphatase 334IU/L Troponin I < 0.012ng/ml Total Protein 7.2g/dl Albumin 3.4g/dl Globulin 3.80g/dl Albumin/Globulin Ratio 0.89 Amylase Level 153U/L Lipase 84U/L Current Medications Medications (Trade) Dose Ordered Sig/Familia Route PRN Reason Start Time Stop Time Status Last Admin Dose Admin Clindamycin HCl/ Dextrose 50 ml @ 50 mls/hr ONCE STAT IVPB 11/19/16 18:11 11/19/16 19:10 DC 11/19/16 18:11 Piperacillin Sod/ Tazobactam Sod (Zosyn 3.375gm/ 100 ml (Pmx)) 100 ml @ 100 mls/hr ONCE STAT IVPB 11/19/16 18:11 11/19/16 19:10 DC 11/19/16 19:42 Morphine Sulfate (morphine) 4 mg ONCE STAT IV 11/19/16 19:19 11/19/16 19:20 DC 11/19/16 19:42 Ondansetron HCl (Zofran Inj) 4 mg ONCE STAT IV 11/19/16 19:19 11/19/16 19:20 DC 11/19/16 19:42 Ondansetron HCl (Zofran Inj) 4 mg ER BRIDGE PRN IV NAUSEA AND/OR VOMITING 11/19/16 21:00 11/20/16 20:59 Acetaminophen (Tylenol Tab) 650 mg ER BRIDGE PRN PO MILD PAIN/FEVER 11/19/16 21:00 11/20/16 20:59 Hydromorphone HCl (Dilaudid) 1 mg ONCE STAT IV 11/19/16 20:40 11/19/16 20:41 DC 11/19/16 20:48 Ondansetron HCl (Zofran Inj) 4 mg ONCE STAT IV 11/19/16 20:40 11/19/16 20:41 DC 11/19/16 20:48 IV Flush (NS 3 ml) 3 ml PER PROTOCOL IV 11/19/16 21:00 Metoclopramide HCl (Reglan) 10 mg Q6H PRN IV NAUSEA AND/OR VOMITING 11/19/16 21:00 Acetaminophen (Tylenol Tab) 650 mg Q6H PRN PO PAIN LEVEL 1-3 OR FEVER 11/19/16 21:00 Amlodipine Besylate (Norvasc) 10 mg DAILY PO 11/20/16 09:00 Benazepril HCl (Lotensin) 10 mg BID PO 11/19/16 21:00 Clonidine HCl (Catapres-Tts 1 Patch) 1 patch Q7D TRANSDERM 11/19/16 21:00 Docusate Sodium (Colace) 100 mg DAILY PO 11/20/16 09:00 Famotidine (Pepcid) 10 mg Q48H PO 11/19/16 21:00 Acetaminophen/ Hydrocodone Bitart ([place] (5/325)) 1 tab Q6H PRN PO PAIN 11/19/16 21:00 Metoprolol Tartrate (Lopressor) 25 mg BID PO 11/19/16 21:00 Nitroglycerin (Nitroglycerin (Sl Tab) 0.4 Mg) 1 tab Q5M PRN SL CHEST PAIN 11/19/16 21:00 Albuterol 5 mg 5 mg Q8H RESP THERAPY STAT HHN 11/19/16 20:38 11/19/16 21:14 DC Clindamycin HCl/ Dextrose 50 ml @ 50 mls/hr Q8 IVPB 11/19/16 22:00 11/19/16 22:59 Piperacillin Sod/ Tazobactam Sod (Zosyn 3.375gm/ 100 ml (Pmx)) 100 ml @ 200 mls/hr Q12 IVPB 11/20/16 08:00 Procedures/MDM This patient presented to the emergency department physical exam findings concerning for gangrene of his right foot. The patient had IV access established by nursing staff. Blood cultures and urine cultures were obtained. The patient was started on broad-spectrum antibiotics which included Zosyn and clindamycin. Vancomycin was not given as the patient has an allergy. He was given analgesic medication which included morphine and Zofran as an antiemetic. The patient was anemic with a hemoglobin of 7.5. He is on dialysis and therefore was given 1 unit of packed red blood cells and there is no evidence of fluid overload. The patient's potassium was normal at 5.0. He did not require emergent hemodialysis at this time. I obtained a 2 view radiograph of the patient's right foot or and reviewed by myself as well as the radiologist which indicated followin. No acute fracture or dislocation is seen. 2. No gross evidence of focal osseous lesion is seen to indicate osteomyelitis. 3. Arterial atherosclerotic calcifications are noted. He will be admitted in serious condition under the care of the hospitalist with an anticipated stay of greater than 2 midnights to the telemetry service and a consult to his vascular surgeon Dr. Nagy who kindly came to the bedside to evaluate the patient. 12 Lead EKG tracing ordered and reviewed by myself showed: Sinus bradycardia 59 bpm and no arrhythmia. ID interval normal. QRS duration normal. No ST segment elevation. Left ventricular hypertrophy No ST segment depression. No changes consistent with acute ischemia. Critical Care: Time: 55 minutes Treatments/Evaluations: Close monitoring and treatment of unstable vital signs, cardiorespiratory, and neurologic status, while maintaining tight balance of fluid, respiratory, and cardiac interventions. Time does not include performing any of the above billable procedures. Departure Diagnosis: Primary Impression: Gangrene of foot Additional Impression: Anemia Qualified Code: D64.9 - Anemia, unspecified type Condition: Serious SERGOSIMON MOSSA Nov 19, 2016 19:19
[2016-11-19 19:21] LABS: ADD SCAN DIFF NO
[2016-11-19 19:26] LABS: ABNORMAL IP MESSAGE 1; BASOPHIL # 0.1 10^3/ul (0.0-0.1); BASOPHILS % 0.5 % (0.0-2.0); EOSINOPHILS # 0.2 10^3/ul (0.0-0.5); EOSINOPHILS % 1.9 % (0.0-7.0); HEMATOCRIT 24.3 % (42.0-52.0); HEMOGLOBIN 7.5 g/dl (14.0-18.0); LYMPHOCYTES # 3.2 10^3/ul (0.8-2.9); MEAN CORPUSCULAR HEMOGLOBIN 32.2 pg (29.0-33.0); MEAN CORPUSCULAR HGB CONC 30.9 g/dl (32.0-37.0); MEAN CORPUSCULAR VOLUME 104.3 fl (82.0-101.0); MEAN PLATELET VOLUME 11.3 fl (7.4-10.4); MONOCYTE # 1.6 10^3/ul (0.3-0.9); MONOCYTES % 13.9 % (0.0-11.0); NEUTROPHIL # 6.2 10^3/ul (1.6-7.5); NEUTROPHILS % 55.2 % (39.0-77.0); PLATELET COUNT 342 10^3/UL (140-415); RED BLOOD COUNT 2.33 10^6/ul (4.70-6.10); WHITE BLOOD COUNT 11.2 10^3/ul (4.8-10.8)
[2016-11-19 19:37] LABS: ALANINE AMINOTRANSFERASE 28 IU/L (13-69); ALBUMIN 3.4 g/dl (3.3-4.9); ALBUMIN/GLOBULIN RATIO 0.89; ALKALINE PHOSPHATASE 334 IU/L (42-121); AMYLASE 153 U/L (11-123); ANION GAP 13 (8-16); ASPARTATE AMINO TRANSFERASE 22 IU/L (15-46); BLOOD UREA NITROGEN 45 mg/dl (7-20); CALCIUM 8.3 mg/dl (8.4-10.2); CARBON DIOXIDE 26 mmol/L (21-31); CHLORIDE 98 mmol/L (97-110); CREATININE 5.29 mg/dl (0.61-1.24); GLUCOSE 133 mg/dl (70-220); SODIUM 132 mmol/L (135-144); TOTAL PROTEIN 7.2 g/dl (6.1-8.1)
[2016-11-19 19:48] LABS: INR 1.26; PROTIME 15.9 Sec (12.2-14.2); PT RATIO 1.2
[2016-11-19 19:56] LABS: TROPONIN-I < 0.012 ng/ml (0.00-0.12)
[2016-11-19 20:11] LABS: PARTIAL THROMBOPLASTIN TIME 30.4 Sec (25.0-35.0)
[2016-11-19 20:16] LABS: PLATELET ESTIMATE PLT APPEAR ADEQUATE
[2016-11-19] MEDS ORDERED: ALBUTEROL 0.083% (NEB) 2.5 MG/3 ML AMP HHN STA (20:38)
[2016-11-19] MEDS ORDERED: HYDROmorphONE 1 MG/ML SYG IV STA (20:40)
--- NOTE | 2016-11-19 20:45 | RADRPT ---
PROCEDURE: XR Foot. CLINICAL INDICATION: Pain, evaluate for osteomyelitis TECHNIQUE: AP and lateral views of the right foot are available for review. COMPARISON: None available FINDINGS: No acute fracture or dislocation is identified. No focal osseous lesion is seen. Inferior and post erior calcaneal spurs are noted. Diffuse arterial atherosclerotic calcification is present. No rad iodense foreign body is identified. No evidence of subcutaneous gas is seen. IMPRESSION: 1. No acute fracture or dislocation is seen. 2. No gross evidence of focal osseous lesion is seen to indicate osteomyelitis. 3. Arterial atherosclerotic calcifications are noted. RPTAT: HDWR .Jerome Wilson MD, MD Date Time Electronically viewed and signed by .Jerome Wilson MD, on 11/19/2016 20:45 .R/
--- NOTE | 2016-11-19 20:58 | HP ---
Date/Time of Note Date/Time of Note DATE: 11/19/16 TIME: 20:58 Assessment/Plan VTE Prophylaxis VTE Prophylaxis Intervention: contraindicated VTE Contraindication Reason: amputee, bleeding (Possible) Assessment/Plan Assessment/Plan Gangrene of foot, right - ADMIT to Med/Surg - IV Abx - CONSULT: Podiatry - Pain Control Peripheral Vascular DiseasDiabetes Mellitus with Peripheral Neuropathy and ESRD on Dialysis - Dialysis, notify patient's Co Founder And Director - Renal/Diabetic Diet with AccuCheks AC and HS and Insulin Sliding Scale Anemia, Macrocytic, Normochromic, likely due to CKD - AM Labs: CBC HTN - resume routine medications HPI/ROS Admit Date/Time Admit Date/Time 11/19/162038 Hx of Present Illness This 65 year old male is sent in by Dr. Osuna for a wound check for his foot ulcer. 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 He is a Diabetic with a known history of end-stage renal disease, on hemodialysis every Tuesday and Tuesday through a right femoral tunneled catheter. He complains of pain and discoloration of his right big toe and right heel that has progressively worsened over the past several days. He also indicates that for the past 48 hours he has been experiencing pain in the rest of his/ right foot. The patient . The patient has had no fevers or shaking or chills. The pain in his right big toe is 10 out of 10 in intensity. He denies any shortness of breath at rest or exertion. The patient' s vascular surgeon is Dr. Quintero who is aware that the patient has presented to the emergency department ER Course per ER Physician: This patient presented to the emergency department physical exam findings concerning for gangrene of his right foot. The patient had IV access established by nursing staff. Blood cultures and urine cultures were obtained. The patient was started on broad-spectrum antibiotics which included Zosyn and clindamycin. Vancomycin was not given as the patient has an allergy. He was given analgesic medication which included morphine and Zofran as an antiemetic. The patient was anemic with a hemoglobin of 7.5. He is on dialysis and therefore was given 1 unit of packed red blood cells and there is no evidence of fluid overload. The patient's potassium was normal at 5.0. He did not require emergent hemodialysis at this time. I obtained a 2 view radiograph of the patient's right foot or and reviewed by myself as well as the radiologist which indicated followin. No acute fracture or dislocation is seen. 2. No gross evidence of focal osseous lesion is seen to indicate osteomyelitis. 3. Arterial atherosclerotic calcifications are noted. He will be admitted in serious condition under the care of the hospitalist with an anticipated stay of greater than 2 midnights to the telemetry service and a consult to his vascular surgeon Dr. Romero who kindly came to the bedside to evaluate the patient. ROS General: Admits: Denies: Fever, Chills, Poor Appetite, Generalized Body Aches Eyes: Admits: Denies: Blurry Vision, Double Vision HENT: Admits: Denies: Ear Pain/Pressure, Runny/Stuffy Nose, Sore Throat Cardiovascular: Admits: Denies: Chest Pain, Palpitations, Leg Swelling Pulmonary: Admits: Denies: Cough, Wheeze, Shortness of Breath Gastrointestinal: Admits: Denies: Abdominal Pain, Nausea, Vomiting, Diarrhea, Blood in Stool, Black-Colored Stool Urogenital: Admits: Denies: Burning with Urination, Urinary Frequency, Blood in Urine Musculoskeletal: Admits: Denies: Joint Pain, Joint Swelling, Muscle Pain Neurological: Admits: Numbness, Tingling, Shooting Pains in foot Denies: Headache, Dizziness Integumentary: Admits: Denies: Rash, Itch PMH/Family/Social Past Medical History HTN; HICH CHOLESTEROL; ANEMIA; CAD; DM with DIABETIC NEUROPATHY Past Surgical History LT FEMORAL BYPASS,; LT ILIOFEMORAL ENDARTERECTOMY Social History Alcohol Use: none Smoking Status: Current some day smoker Drug Use: none Exam/Review of Systems Vital Signs Vitals Vital Signs Date Time Temp Pulse Resp B/P Pulse Ox O2 Delivery O2 Flow Rate FiO2 11/19/16 20:00 61 132/68 99 Room Air 11/19/16 16:18 99.0 18 Exam Exam General: Slender, Hungarian-Speaking male, alert and oriented, in no acute distress Eyes: Sclera White, EOMI HENT: Normocephalic/Atraumatic, External Ears/Nose Normal, Moist Mucus Membranes Neck: Supple, Trachea Midline Cardiovascular: Normal Rate, Regular Rhythm, Normal S1 and S2, No Murmur, No Extra Sounds. Radial pulse +2/4. DP pulse +1/4 bilaterally. No pedal Edema. Pulmonary: Clear to Auscultation Bilaterally, Normal Respiratory Effort, No Rales, Rhonchi or Wheezes Gastrointestinal: Normoactive Bowel Sounds, Soft, Non-Tender/Non-Distended, No Hepatosplenomegaly Appreciated, No Pulsatile Masses Urogenital: Deferred Musculoskeletal: Normal Muscle Bulk and Tone Neurological: CN II - XII Grossly Intact, Non-Focal, Speech Normal Integumentary: Normal Moisture and Temperature, Good Turgor, No Jaundice, No Rash. Necrosis of the right big toe, right calcaneus and right second toe. Lymphatic: No Cervical Lymphadenopathy Psychiatric: Appropriate Mood and Affect, Good Eye Contact Labs Result Diagram: 11/19/16184911/19/16 1850 Medications Medications Home Meds Active Scripts Famotidine* (Famotidine*) 20 Mg Tablet, 20 MG PO DAILY, #30 TAB Prov:OZZIE HERRERA MD 11/10/16 Docusate Sodium (Dok) 100 Mg Capsule, 100 MG PO DAILY, #30 CAP Prov:OZZIE HERRERA MD 11/10/16 Aspirin* (Aspirin* EC) 81 Mg Tablet.dr, 81 MG PO DAILY, #30 Prov:OZZIE HERRERA MD 11/10/16 Nitroglycerin* (Nitrostat*) 0.4 Mg Tab.subl, 1 TAB SL Q5M Y for CHEST PAIN, #60 Prov:OZZIE HERRERA MD 11/10/16 Metoprolol Tartrate* (Lopressor*) 25 Mg Tab, 25 MG PO BID, #60 TAB Prov:OZZIE HERRERA MD 11/10/16 Clonidine Patch (CATAPRES PATCH) 0.1 Mg/24 Hr Patch, 1 PATCH TRANSDERM Q7D for 30 Days, #4 PATCH Prov:OZZIE HERRERA MD 11/10/16 Benazepril Hcl* (Benazepril Hcl*) 10 Mg Tablet, 10 MG PO BID, #60 TAB Prov:OZZIE HERRERA MD 11/10/16 Apixaban* (Eliquis*) 5 Mg Tablet, 2.5 MG PO BID, #60 TAB Prov:OZZIE HERRERA MD 11/10/16 Albuterol Sulfate* (Ventolin HFA*) 18 Gm Hfa.aer.ad, 2 PUFF INH Q8 for 30 Days Prov:OZZIE HERRERA MD 11/10/16 Hydrocodone/Acetaminophen ([place] 5-325 Tablet) 1 Each Tablet, 1 EACH PO Q6H Y for PAIN, #60 TAB Prov:OZZIE HERRERA MD 11/10/16 Amlodipine Besylate* (Amlodipine Besylate*) 10 Mg Tablet, 10 MG PO DAILY, #30 TAB Prov:OZZIE HERRERA MD 11/10/16 Discontinued Scripts Glipizide* (Glipizide*) 5 Mg Tablet, 2.5 MG PO DAILY, #30 TAB Prov:OZZIE HERRERA MD 11/10/16 Current Medications Medications (Trade) Dose Ordered Sig/Familia Route PRN Reason Start Time Stop Time Status Last Admin Dose Admin Clindamycin HCl/ Dextrose 50 ml @ 50 mls/hr ONCE STAT IVPB 11/19/16 18:11 11/19/16 19:10 DC 11/19/16 18:11 Piperacillin Sod/ Tazobactam Sod (Zosyn 3.375gm/ 100 ml (Pmx)) 100 ml @ 100 mls/hr ONCE STAT IVPB 11/19/16 18:11 11/19/16 19:10 DC 11/19/16 19:42 Morphine Sulfate (morphine) 4 mg ONCE STAT IV 11/19/16 19:19 11/19/16 19:20 DC 11/19/16 19:42 Ondansetron HCl (Zofran Inj) 4 mg ONCE STAT IV 11/19/16 19:19 11/19/16 19:20 DC 11/19/16 19:42 Ondansetron HCl (Zofran Inj) 4 mg ER BRIDGE PRN IV NAUSEA AND/OR VOMITING 11/19/16 21:00 11/20/16 20:59 Acetaminophen (Tylenol Tab) 650 mg ER BRIDGE PRN PO MILD PAIN/FEVER 11/19/16 21:00 11/20/16 20:59 Hydromorphone HCl (Dilaudid) 1 mg ONCE STAT IV 11/19/16 20:40 11/19/16 20:41 DC 11/19/16 20:48 Ondansetron HCl (Zofran Inj) 4 mg ONCE STAT IV 11/19/16 20:40 11/19/16 20:41 DC 11/19/16 20:48 IV Flush (NS 3 ml) 3 ml PER PROTOCOL IV 11/19/16 21:00 Metoclopramide HCl (Reglan) 10 mg Q6H PRN IV NAUSEA AND/OR VOMITING 11/19/16 21:00 Acetaminophen (Tylenol Tab) 650 mg Q6H PRN PO PAIN LEVEL 1-3 OR FEVER 11/19/16 21:00 Amlodipine Besylate (Norvasc) 10 mg DAILY PO 11/20/16 09:00 Benazepril HCl (Lotensin) 10 mg BID PO 11/19/16 21:00 Clonidine HCl (Catapres-Tts 1 Patch) 1 patch Q7D TRANSDERM 11/19/16 21:00 Docusate Sodium (Colace) 100 mg DAILY PO 11/20/16 09:00 Famotidine (Pepcid) 10 mg Q48H PO 11/19/16 21:00 Acetaminophen/ Hydrocodone Bitart (Flovilla (5/325)) 1 tab Q6H PRN PO PAIN 11/19/16 21:00 Metoprolol Tartrate (Lopressor) 25 mg BID PO 11/19/16 21:00 Nitroglycerin (Nitroglycerin (Sl Tab) 0.4 Mg) 1 tab Q5M PRN SL CHEST PAIN 11/19/16 21:00 Albuterol 5 mg 5 mg Q8H RESP THERAPY STAT HHN 11/19/16 20:38 11/19/16 21:14 DC Clindamycin HCl/ Dextrose 50 ml @ 50 mls/hr Q8 IVPB 11/19/16 22:00 11/19/16 22:59 Piperacillin Sod/ Tazobactam Sod (Zosyn 3.375gm/ 100 ml (Pmx)) 100 ml @ 200 mls/hr Q12 IVPB 11/20/16 08:00 Procedures Procedures Laboratory Tests Test 11/19/16 18:50 11/19/16 20:12 White Blood Count 11.210^3/ul Red Blood Count 2.3310^6/ul Hemoglobin 7.5g/dl Hematocrit 24.3% Mean Corpuscular Volume 104.3fl Mean Corpuscular Hemoglobin 32.2pg Mean Corpuscular Hemoglobin Concent 30.9g/dl Red Cell Distribution Width 17.0% Platelet Count 91121^3/UL Mean Platelet Volume 11.3fl Neutrophils % 55.2% Lymphocytes % 28.0% Monocytes % 13.9% Eosinophils % 1.9% Basophils % 0.5% Nucleated Red Blood Cells % 0.0/100WBC Neutrophils # 6.210^3/ul Lymphocytes # 3.210^3/ul Monocytes # 1.610^3/ul Eosinophils # 0.210^3/ul Basophils # 0.110^3/ul Nucleated Red Blood Cells # 0.010^3/ul Platelet Estimate PLT APPEAR ADEQUATE Prothrombin Time 15.9Sec Prothrombin Time Ratio 1.2 INR International Normalized Ratio 1.26 Activated Partial Thromboplast Time 30.4Sec Sodium Level 132mmol/L Potassium Level 5.0mmol/L Chloride Level 98mmol/L Carbon Dioxide Level 26mmol/L Anion Gap 13 Blood Urea Nitrogen 45mg/dl Creatinine 5.29mg/dl Glucose Level 133mg/dl Lactic Acid Level 1.0mmol/L 1.5mmol/L Calcium Level 8.3mg/dl Total Bilirubin 0.0mg/dl Direct Bilirubin 0.00mg/dl Indirect Bilirubin 0.0mg/dl Aspartate Amino Transf (AST/SGOT) 22IU/L Alanine Aminotransferase (ALT/SGPT) 28IU/L Alkaline Phosphatase 334IU/L Troponin I < 0.012ng/ml Total Protein 7.2g/dl Albumin 3.4g/dl Globulin 3.80g/dl Albumin/Globulin Ratio 0.89 Amylase Level 153U/L Lipase 84U/L EKG: Reviewed by ER Physician: Sinus bradycardia 59 bpm and no arrhythmia. MI interval normal. QRS duration normal. No ST segment elevation. Left ventricular hypertrophy No ST segment depression. No changes consistent with acute ischemia. RADIOLOGY: PROCEDURE: XR Foot. CLINICAL INDICATION: Pain, evaluate for osteomyelitis TECHNIQUE: AP and lateral views of the right foot are available for review. COMPARISON: None available FINDINGS: No acute fracture or dislocation is identified. No focal osseous lesion is seen. Inferior and posterior calcaneal spurs are noted. Diffuse arterial atherosclerotic calcification is present. No radiodense foreign body is identified. No evidence of subcutaneous gas is seen. IMPRESSION: 1. No acute fracture or dislocation is seen. 2. No gross evidence of focal osseous lesion is seen to indicate osteomyelitis. 3. Arterial atherosclerotic calcifications are noted. PROCEDURE: Portable chest x-ray. CLINICAL INDICATION: Dyspnea. TECHNIQUE: Portable AP view of the chest. COMPARISON: 11/04/2016. FINDINGS: There is patchy right basilar opacity, nonspecific. Minimal left basilar atelectasis is noted. A lower extremity central venous catheter terminates in the lower SVC. The cardiac silhouette is magnified. There are aortic calcifications. No pleural effusion is seen. There is no pneumothorax. IMPRESSION: 1. Patchy right basilar opacity, possibly atelectasis, pulmonary edema, or pneumonia. 2. Lower extremity central venous catheter tip in the lower SVC. 3. Aortic atherosclerosis. CHON DAN DO Nov 19, 2016 20:58 TECHNIQUE: Portable AP view of the chest. COMPARISON: 11/04/2016. FINDINGS: There is patchy right basilar opacity, nonspecific. Minimal left basilar atelectasis is noted. A lower extremity central venous catheter terminates in the lower SVC. The cardiac silhouette is magnified. There are aortic calcifications. No pleural effusion is seen. There is no pneumothorax.
[2016-11-19] MEDS ORDERED: NACL 0.9% 3 ML SYG IV SCH (21:00)
[2016-11-19] MEDS ORDERED: ACETAMINOPHEN 325 MG TAB PO PRN ×2 (21:00)
[2016-11-19] MEDS ORDERED: METOCLOPRAMIDE 10 MG INJ IV PRN (21:00)
[2016-11-19] MEDS ORDERED: FAMOTIDINE 20 MG TAB PO SCH (21:00)
[2016-11-19] MEDS ORDERED: NITROGLYCERIN (SL) 0.4 MG TAB SL PRN (21:00)
[2016-11-19] MEDS ORDERED: HYDROCODONE/APAP (5/325) TAB PO PRN (21:00)
[2016-11-19] MEDS ORDERED: CLONIDINE 0.1 MG/24 HR PATCH TRANSDERM SCH (21:00)
[2016-11-19] MEDS ORDERED: ONDANSETRON 4 MG INJ IV PRN (21:00)
[2016-11-19 21:11] VITALS: TEMP 98.7
[2016-11-19] MEDS ORDERED: CLINDAMYCIN 900 MG/D5W (PMX) 50 ML IVPB SCH (22:00)
[2016-11-20] VITALS (17 sets, daily range): BP systolic 136–173; BP diastolic 63–78; PULSE 60–85; RESP 16–18; Ht 167.6 cm; Wt 57.7 kg
[2016-11-20] MEDS: METOPROLOL 25 MG TAB PO SCH ×3 (00:58→21:22)
[2016-11-20] MEDS: BENAZEPRIL 10 MG TAB PO SCH ×3 (00:59→21:22)
[2016-11-20] MEDS: ACCU-CHEK XX SCH ×2 (01:27→20:20)
[2016-11-20] MEDS ORDERED: GLUCAGON 1 MG INJ IM PRN (01:30)
[2016-11-20] MEDS ORDERED: DEXTROSE 50% 50 ML SYRINGE IV PRN ×2 (01:30)
[2016-11-20] MEDS ORDERED: GLUCOSE GEL 15 GRAM TUBE PO PRN ×2 (01:30)
[2016-11-20] MEDS ORDERED: GLUCOSE GEL 15 GRAM TUBE BUCCAL PRN (01:30)
[2016-11-20] MEDS ORDERED: CLONIDINE 0.1 MG/24 HR PATCH TRANSDERM SCH (02:00)
[2016-11-20] MEDS ORDERED: ACCU-CHEK XX SCH (02:00)
--- NOTE | 2016-11-20 04:54 | CONS ---
DATE OF ADMISSION: 11/19/2016 DATE OF CONSULTATION: 11/19/2016 TYPE OF CONSULTATION: Surgery consultation. Dear Doctors: Mr. Zepeda is a 65-year-old gentleman who is known to our vascular surgery service secondar y to bilateral lower extremity atherosclerosis and gangrene. As of recent, the patient underwent le ft lower extremity limb salvage procedure which was unsuccessful, and the patient unfortunately ende d up with a major amputation with an above knee. The patient had a stable right lower extremity annamarie grene of his first and second toes; however, he did not want any intervention done during his last h ospitalization as he was in the hospital for quite some time and wanted to go home and eventually re turned for future interventions. Unfortunately, the patient called our office with mentioning of a right lower extremity swelling, pain, discomfort and redness that occurred over the past 48 hours. The patient was, therefore, sent to the emergency room for evaluation and that needs to be adm itted. At the moment, the patient denies shortness of breath, chest pain, nausea, vomiting, fever o r chills. The patient does complain of quite significant pain of his right lower extremity. REVIEW OF SYSTEMS: A 12-point review performed and negative except what is mentioned in the HPI. PAST MEDICAL HISTORY: Entails hypertension, diabetes, hypercholesterolemia, end-stage renal disease on dialysis Tuesday, , Tuesday. ALLERGIES: VANCOMYCIN. PAST SURGICAL HISTORY: Left lower extremity revascularization involving left iliofemoral endarterec elisa and left common femoral artery to posterior tibial artery bypass status post redo revision of t he left common femoral artery to posterior tibial artery with a composite graft, status post left be low knee amputation, status post left above knee amputation, status post Usama catheter placements , status post right permanent hemodialysis catheter placement. SOCIAL HISTORY: Positive smoker for many years. Denies alcohol or illicit drug use. FAMILY HISTORY: Positive for diabetes and hypertension. PHYSICAL EXAMINATION: GENERAL: Alert and oriented x3 in no apparent distress. HEENT: Normocephalic, atraumatic. Poor dentition. Mucosa moist. NECK: Supple. No carotid bruit. PULMONARY: Clear to auscultation bilaterally. No crackles. CARDIOVASCULAR: S1, S2 present. No murmurs. ABDOMEN: Soft, nontender, nondistended. Bowel sounds positive. EXTREMITIES: 1. Right lower extremity: Palpable femoral pulse, nonpalpable pedal pulse. Motor, sensory intact. Capillary refill about 3 to 4 seconds. There is gangrene of the first and second toe with signifi cant erythema and swelling of 2+, erythema extending to his forefoot and tender upon palpation. 2. Left lower extremity: Palpable femoral pulse. Left above knee amputation stump clean, dry and intact with ricarda intact. 3. Right groin Perm catheter intact and functional, and no erythema or fluctuance identified. ASSESSMENT AND PLAN: Bilateral lower extremity atherosclerosis with gangrene: It seems that the mikey mccain's right lower extremity gangrene has worsened with now a diabetic foot infection. Unfortunate ly, the patient will need to be admitted and treated for IV antibiotics for the current infection. The patient does not want to undergo any vascular intervention at the moment. The patient will requ ja likely some sort of endovascular intervention in order to provide limb salvage. However, the mikey mccain has become nonambulatory and has become wheelchair bound secondary to his recent left lower ex tremity amputation. We will plan to discuss the findings with the patient in the coming days and the family in order to determine an intervention for him and try to provide adequate perfusion to his lower extremity. The patient is limited as he has become wheelchair bound in terms of interventions and being an active smoker. Optimize vascular status (BP meds, diet, nutrition, exercise, sugar control, antiplatelets). Discussed findings, plan and management with the patient and the family at the bedside with a certif ied seamark advanced operator maintainer and he understands. Thank you for allowing us to partake in the care of your patient. Please call with any questions. Dictated By: CYNDI GARCIA/SIN Conf#: [id number] DID#: [id number]
[2016-11-20] MEDS: CLINDAMYCIN 900 MG/D5W (PMX) 50 ML IVPB SCH ×3 (05:12→22:24)
[2016-11-20 06:13] LABS: ADD SCAN DIFF NO
[2016-11-20 06:26] LABS: BASOPHIL # 0.1 10^3/ul (0.0-0.1); BASOPHILS % 0.5 % (0.0-2.0); EOSINOPHILS # 0.2 10^3/ul (0.0-0.5); EOSINOPHILS % 1.8 % (0.0-7.0); HEMATOCRIT 23.9 % (42.0-52.0); HEMOGLOBIN 7.5 g/dl (14.0-18.0); LYMPHOCYTES # 2.9 10^3/ul (0.8-2.9); LYMPHOCYTES % 27.7 % (15.0-51.0); MEAN CORPUSCULAR HEMOGLOBIN 30.9 pg (29.0-33.0); MEAN CORPUSCULAR HGB CONC 31.4 g/dl (32.0-37.0); MEAN CORPUSCULAR VOLUME 98.4 fl (82.0-101.0); MEAN PLATELET VOLUME 11.5 fl (7.4-10.4); MONOCYTE # 1.4 10^3/ul (0.3-0.9); NEUTROPHIL # 5.9 10^3/ul (1.6-7.5); NEUTROPHILS % 56.3 % (39.0-77.0); PLATELET COUNT 288 10^3/UL (140-415); RED BLOOD COUNT 2.43 10^6/ul (4.70-6.10); RED CELL DISTRIBUTION WIDTH 18.7 % (11.5-14.5); WHITE BLOOD COUNT 10.4 10^3/ul (4.8-10.8)
[2016-11-20 06:31] LABS: POTASSIUM 5.3 mmol/L (3.5-5.1)
[2016-11-20 06:33] LABS: CREATININE 6.1 mg/dl (0.61-1.24)
[2016-11-20] MEDS: INSULIN ASPART [NOVOLOG] 3 ML PEN SC SCH ×4 (08:00→20:20)
[2016-11-20] MEDS: AMLODIPINE 10 MG TAB PO SCH (08:27)
[2016-11-20] MEDS: DOCUSATE SODIUM 100 MG CAP PO SCH (08:29)
[2016-11-20] MEDS: HEPARIN 5,000 UNIT/0.5 ML VIAL SC SCH ×2 (08:30→21:25)
[2016-11-20] MEDS: PIPER-TAZO 3.375 GM IV (PMX) 100 ML IVPB SCH ×2 (08:31→20:20)
[2016-11-20] MEDS ORDERED: morphine 10 MG INJ IM PRN (09:30)
[2016-11-20] MEDS: morphine 4 MG/ML VIAL IV PRN ×2 (10:22→21:27)
--- NOTE | 2016-11-20 11:22 | PN ---
Date/Time of Note Date/Time of Note DATE: 11/20/16 TIME: 11:18 Assessment/Plan Lines/Catheters IV Catheter Type (from [facility]): Saline Lock Correa in Place (from [facility]): No Assessment/Plan Chief Complaint/Hosp Course -Bilateral lower extremity atherosclerosis with gangrene: It seems that the patient's right lower extremity gangrene has worsened with now a diabetic foot infection. The patient does not want to undergo any vascular intervention at the moment. The patient will require an eventual endovascular intervention in order to provide limb salvage. However, the patient has become nonambulatory and has become wheelchair bound secondary to his recent left lower extremity amputation. -We have discussed the findings with the patient and the family that The patient is limited as he has become wheelchair bound and being an active smoker. -Continue antibiotics and arrange for possible D/C planning for IV antibiotics with HD sessions and PO antibiotics coverage, Will defer to our ID colleagues -Optimize vascular status (BP meds, diet, nutrition, exercise, sugar control, antiplatelets). -Discussed findings, plan and management with the patient and the family at the bedside with a certified artillery meteorological man and he understands. -Thank you for allowing us to partake in the care of your patient. Please call with any questions. Problems: Subjective 24 Hr Interval Summary no new vascular events overnight Exam/Review of Systems Vital Signs Vitals Vital Signs Date Time Temp Pulse Resp B/P Pulse Ox O2 Delivery O2 Flow Rate FiO2 11/20/16 08:30 98.4 64 18 138/63 99 11/20/16 00:44 Room Air 11/19/16 21:56 21 Intake and Output 11/19/16 11/19/16 11/20/16 15:00 23:00 07:00 Intake Total 570 ml Balance 570 ml Exam Free Text/Dictation GENERAL: Alert and oriented x3 PULMONARY: Clear to auscultation bilaterally. CARDIOVASCULAR: S1, S2 present. ABDOMEN: Soft, nontender, nondistended. Bowel sounds positive. EXTREMITIES: -Right lower extremity: Palpable femoral pulse, nonpalpable pedal pulse. Motor , sensory intact. Capillary refill about 3 to 4 seconds. Gangrene of the first and second toe with significant erythema and swelling of 2+, erythema extending to his forefoot and tender upon palpation. -Left lower extremity: Palpable femoral pulse. Left above knee amputation stump clean, dry and intact with ricarda intact. -Right groin Perm catheter intact and functional, and no erythema or fluctuance identified. Results Result Diagram: 11/20/16 0455 11/20/16 0455 CYNDI CARR MD Nov 20, 2016 11:22
--- NOTE | 2016-11-20 11:33 | PN ---
Date/Time of Note Date/Time of Note DATE: 11/20/16 TIME: 11:33 Assessment/Plan VTE Prophylaxis VTE Prophylaxis Intervention: heparin Lines/Catheters IV [facility] Saline Lock Urinary Cath still in place: No Assessment/Plan Assessment/Plan 65 yo M with 1. Bilateral lower extremity atherosclerosis with gangrene: 2. Diabetic foot infection / cellulitis 3. S/p recent left lower extremity amputation. 4. Severe PAD 5. ESRD on HD 6. Tobacco abuse 7. HTN : good control 8. Anemia of CKD PLAN: * wound cultures / ID consult / pain control / supportive care / wound care * Transfusion with next session of dialysis - likely today * Smoking Cessation Therapy: Pt. was lectured for greater than 3 minutes on the health risks of continued smoking and the benefits of cessation and this will continue to be reinforced throughout hospitalization. * Continue all other meds Prophylaxis : heparin Subjective 24 Hr Interval Summary Free Text/Dictation was in a lot of pain, but this has improved with meds Exam/Review of Systems Vital Signs Vitals Vital Signs Date Time Temp Pulse Resp B/P Pulse Ox O2 Delivery O2 Flow Rate FiO2 11/20/16 08:30 98.4 64 18 138/63 99 11/20/16 00:44 Room Air 11/19/16 21:56 21 Intake and Output 11/19/16 11/19/16 11/20/16 15:00 23:00 07:00 Intake Total 570 ml Balance 570 ml Exam GENERAL: Alert and oriented x3 PULMONARY: Clear to auscultation bilaterally. CARDIOVASCULAR: S1, S2 present. ABDOMEN: Soft, nontender, nondistended. Bowel sounds positive. EXTREMITIES: -Right lower extremity: Palpable femoral pulse, nonpalpable pedal pulse. Motor , sensory intact. Capillary refill about 3 to 4 seconds. Gangrene of the first and second toe with significant erythema and swelling of 2+, erythema extending to his forefoot and tender upon palpation. -Left lower extremity: Palpable femoral pulse. Left above knee amputation stump clean, dry and intact with ricarda intact. Results Result Diagram: 11/20/16 0455 11/20/16 0455 Results 24 hrs Laboratory Tests Test 11/19/16 18:50 11/19/16 20:12 11/19/16 22:50 11/20/16 00:29 White Blood Count 11.2 H Red Blood Count 2.33 L Hemoglobin 7.5 L Hematocrit 24.3 L Mean Corpuscular Volume 104.3 H Mean Corpuscular Hemoglobin 32.2 Mean Corpuscular Hemoglobin Concent 30.9 L Red Cell Distribution Width 17.0 H Platelet Count 342 Mean Platelet Volume 11.3 H Neutrophils % 55.2 Lymphocytes % 28.0 Monocytes % 13.9 H Eosinophils % 1.9 Basophils % 0.5 Nucleated Red Blood Cells % 0.0 Neutrophils # 6.2 Lymphocytes # 3.2 H Monocytes # 1.6 H Eosinophils # 0.2 Basophils # 0.1 Nucleated Red Blood Cells # 0.0 Platelet Estimate PLT APPEAR ADEQUATE Prothrombin Time 15.9 #H Prothrombin Time Ratio 1.2 INR International Normalized Ratio 1.26 Activated Partial Thromboplast Time 30.4 Sodium Level 132 L Potassium Level 5.0 Chloride Level 98 Carbon Dioxide Level 26 Anion Gap 13 Blood Urea Nitrogen 45 H Creatinine 5.29 H Glucose Level 133 Lactic Acid Level 1.0 1.5 1.7 Calcium Level 8.3 L Total Bilirubin 0.0 L Direct Bilirubin 0.00 Indirect Bilirubin 0.0 Aspartate Amino Transf (AST/SGOT) 22 Alanine Aminotransferase (ALT/SGPT) 28 Alkaline Phosphatase 334 H Troponin I < 0.012 Total Protein 7.2 Albumin 3.4 Globulin 3.80 H Albumin/Globulin Ratio 0.89 Amylase Level 153 H Lipase 84 Bedside Glucose 212 Test 11/20/16 04:55 11/20/16 07:51 11/20/16 08:46 11/20/16 11:19 White Blood Count 10.4 Red Blood Count 2.43 L Hemoglobin 7.5 L Hematocrit 23.9 L Mean Corpuscular Volume 98.4 Mean Corpuscular Hemoglobin 30.9 Mean Corpuscular Hemoglobin Concent 31.4 L Red Cell Distribution Width 18.7 H Platelet Count 288 Mean Platelet Volume 11.5 H Neutrophils % 56.3 Lymphocytes % 27.7 Monocytes % 13.0 H Eosinophils % 1.8 Basophils % 0.5 Nucleated Red Blood Cells % 0.0 Neutrophils # 5.9 Lymphocytes # 2.9 Monocytes # 1.4 H Eosinophils # 0.2 Basophils # 0.1 Nucleated Red Blood Cells # 0.0 Sodium Level 135 Potassium Level 5.3 H Chloride Level 101 Carbon Dioxide Level 23 Anion Gap 16 Blood Urea Nitrogen 58 H Creatinine 6.10 H Glucose Level 96 Calcium Level 8.0 L Bedside Glucose 101 108 Lab Scanned Report BLOOD TRANSFUSION Medications Medications Current Medications Metoclopramide HCl (Reglan) 10 mg Q6H PRN IV NAUSEA AND/OR VOMITING; Start at 21:00 Acetaminophen (Tylenol Tab) 650 mg Q6H PRN PO PAIN LEVEL 1-3 OR FEVER; Start at 21:00 Amlodipine Besylate (Norvasc) 10 mg DAILY PO ; Start 11/20/16 at 09:00 Benazepril HCl (Lotensin) 10 mg BID PO ; Start 11/19/16 at 21:00 Docusate Sodium (Colace) 100 mg DAILY PO Last administered on 11/20/16 08:29; Admin Dose 100 MG; Start 11/20/16 at 09:00 Famotidine (Pepcid) 10 mg Q48H PO Last administered on 11/19/16 23:33; Admin Dose 10 MG; Start 11/19/16 at 21:00 Acetaminophen/ Hydrocodone Bitart ([place] (5/325)) 1 tab Q6H PRN PO PAIN Last administered on 11/20/16 05:20; Admin Dose 1 TAB; Start 11/19/16 at 21:00 Metoprolol Tartrate (Lopressor) 25 mg BID PO ; Start 11/19/16 at 21:00 Nitroglycerin 1 tab 1 tab Q5M PRN SL CHEST PAIN; Start 11/19/16 at 21:00 Piperacillin Sod/ Tazobactam Sod (Zosyn 3.375gm/ 100 ml (Pmx)) 100 ml @ 200 mls /hr Q12 IVPB Last administered on 11/20/16 08:31; Admin Dose 200 MLS/HR; Start 11/20/16 at 08:00 Diagnostic Test (Pha) (Accu-Chek) 1 ea 02 XX ; Start 11/20/16 at 02:00 Miscellaneous Information 1 ea NOTE XX ; Start 11/20/16 at 01:30 Glucose (Glutose) 15 gm Q15M PRN PO DECREASED GLUCOSE; Start 11/20/16 at 01:30 Glucose (Glutose) 22.5 gm Q15M PRN PO DECREASED GLUCOSE; Start 11/20/16 at 01: 30 Dextrose (D50w Syringe) 25 ml Q15M PRN IV DECREASED GLUCOSE; Start 11/20/16 at 01:30 Dextrose (D50w Syringe) 50 ml Q15M PRN IV DECREASED GLUCOSE; Start 11/20/16 at 01:30 Glucagon (Glucagen) 1 mg Q15M PRN IM DECREASED GLUCOSE; Start 11/20/16 at 01:30 Glucose (Glutose) 15 gm Q15M PRN BUCCAL DECREASED GLUCOSE; Start 11/20/16 at 01 :30 Clonidine HCl (Catapres-Tts 1 Patch) 1 patch Q7D TRANSDERM Last administered on 11/20/16 01:56; Admin Dose 1 PATCH; Start 11/20/16 at 02:00 Heparin Sodium (Porcine) (Heparin (5000 Units/0.5 ml)) 5,000 unit BID SC Last administered on 11/20/16 08:30; Admin Dose 5,000 UNIT; Start 11/20/16 at 09:00 Miscellaneous Information Renal Dosing, if need... ONCE XX ; Start 11/20/16 at 02:30 Clindamycin HCl/ Dextrose (Cleocin 900 Mg/ D5W (Pmx)) 50 ml @ 50 mls/hr Q8 IVPB Last administered on 11/20/16 05:12; Admin Dose 50 MLS/HR; Start 11/20/16 at 06:00 Morphine Sulfate (morphine) 3 mg Q4H PRN IV pain Last administered on 10:22; Admin Dose 3 MG; Start 11/20/16 at 10:00 ELIJAH DEUTSCH Nov 20, 2016 11:33
[2016-11-20] MEDS ORDERED: morphine 10 MG INJ IV PRN (13:30)
[2016-11-20] MEDS ORDERED: MAGNESIUM CITRATE 300 ML BTL PO ONE (13:30)
--- NOTE | 2016-11-20 14:13 | CONS ---
DATE OF ADMISSION: 11/19/2016 DATE OF CONSULTATION: 11/20/2016 TYPE OF CONSULTATION: Nephrology. REASON FOR CONSULTATION: End-stage renal disease. PHYSICIAN REQUESTING CONSULT: Dr. Stanley. 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 The patient has a history of peripheral vascular disease, history of hy pertension, history of mineral bone disorder, who presents to [facility] for evalu ation of foot ulcer. The patient stated he has been having worsening pain in his right foot. As a result, he was brought into the hospital and admitted to [facility] for evaluation. Upon my evaluation, the patient at this time is currently stable. Denies any fevers, chills, nause a, vomiting. No shortness of breath. PAST MEDICAL HISTORY: As stated above, history of peripheral vascular disease, history of end-stage renal disease, history of anemia, history of hypertension. PAST SURGICAL HISTORY: Status post left below knee amputation, status post PermCath placement. FAMILY HISTORY: Noncontributory. SOCIAL HISTORY: Does not drink, smoke or do drugs. MEDICATIONS: The patient's medications have been reviewed. REVIEW OF SYSTEMS: A 14-point review of systems was conducted. Pertinent positives in HPI, otherwi se negative. PHYSICAL EXAMINATION: VITAL SIGNS: Blood pressure 138/60, respiration 18, pulse 64, temperature 98.4. HEENT: Head is normocephalic. NECK: Supple. HEART: Regular rate. LUNGS: Show diminished breath sounds at base. ABDOMEN: Soft, nontender to palpation without rebound or guarding. EXTREMITIES: Negative for clubbing, cyanosis. Positive left below knee amputation. Right lower ex tremity has a gangrenous toe. DERMATOLOGIC: No rashes. NEUROLOGIC: No focal deficits. The patient's medications have been reviewed. LABORATORY DATA: Shows white count 10.4, hemoglobin 7.5, hematocrit 23.9, platelet count is 288. S odium 135, potassium 4.3, BUN 58, creatinine 6.1. ASSESSMENT AND PLAN: 1. End-stage renal disease. Patient on dialysis Tuesday, , Tuesday with access right femo ral PermCath. Plan for dialysis today for 3 hours, 2K bath, calcium 2.5, will ultrafiltrate as tole rated. 2. Hyperkalemia secondary to end-stage renal disease. The patient will be dialyzed, 2 potassium ba th. We will continue the patient on a renal diet. 3. Mineral bone disorder. We will monitor calcium and phosphorus levels. Will continue phosphate binders as needed. 4. Anemia of end-stage renal disease. Continue Epogen. 5. Hypertension. Continue current blood pressure regimen. 6. Peripheral vascular disease with right gangrenous toe. The patient will be placed on antibiotic therapy. Follow up with vascular surgery. 7. History of left above-knee amputation. 8. Previous history of tobacco abuse. Thank you, Dr. Stanley, for this interesting consult. It will be a pleasure to follow the patient with you throughout the hospital course. Dictated By: OMAR BABB/SIN Conf#: [id number] DID#: [id number]
[2016-11-20] MEDS ORDERED: EPOETIN 10000 UNITS/1 ML INJ (ESRD) SC SCH (15:00)
[2016-11-20] MEDS ORDERED: LORAZEPAM 2 MG INJ IV ONE (15:30)
--- NOTE | 2016-11-20 17:52 | RADRPT ---
PROCEDURE: Portable chest x-ray. CLINICAL INDICATION: Dyspnea. TECHNIQUE: Portable AP view of the chest. COMPARISON: 11/04/2016. FINDINGS: There is patchy right basilar opacity, nonspecific. Minimal left basilar atelectasis is noted. A lo wer extremity central venous catheter terminates in the lower SVC. The cardiac silhouette is magnif ied. There are aortic calcifications. No pleural effusion is seen. There is no pneumothorax. IMPRESSION: 1. Patchy right basilar opacity, possibly atelectasis, pulmonary edema, or pneumonia. 2. Lower extremity central venous catheter tip in the lower SVC. 3. Aortic atherosclerosis. RPTAT: HTAR .Paresh Keen MD, Date Time Electronically viewed and signed by .Paresh Keen MD, on 11/20/2016 17:51 .R/
[2016-11-21] VITALS (8 sets, daily range): BP systolic 120–150; BP diastolic 56–75; PULSE 70–75; RESP 18
[2016-11-21] MEDS: CLINDAMYCIN 900 MG/D5W (PMX) 50 ML IVPB SCH ×2 (05:05→13:07)
[2016-11-21] MEDS: morphine 4 MG/ML VIAL IV PRN ×2 (05:07→08:59)
[2016-11-21 05:58] LABS: ADD SCAN DIFF NO
[2016-11-21 05:59] LABS: CALCIUM 7.8 mg/dl (8.4-10.2); CREATININE 4.12 mg/dl (0.61-1.24); MAGNESIUM 2.3 mg/dl (1.7-2.5); PHOSPHORUS 2.5 mg/dl (2.5-4.9); POTASSIUM 5.4 mmol/L (3.5-5.1)
[2016-11-21] MEDS: INSULIN ASPART [NOVOLOG] 3 ML PEN SC SCH ×3 (07:51→17:32)
[2016-11-21] MEDS: PIPER-TAZO 3.375 GM IV (PMX) 100 ML IVPB SCH (08:57)
[2016-11-21] MEDS: DOCUSATE SODIUM 100 MG CAP PO SCH (08:57)
[2016-11-21] MEDS: BENAZEPRIL 10 MG TAB PO SCH (08:57)
[2016-11-21] MEDS: METOPROLOL 25 MG TAB PO SCH (08:58)
[2016-11-21] MEDS: AMLODIPINE 10 MG TAB PO SCH (08:58)
[2016-11-21] MEDS: HEPARIN 5,000 UNIT/0.5 ML VIAL SC SCH (09:08)
[2016-11-21 09:44] LABS: BASOPHILS % 0.3 % (0.0-2.0); EOSINOPHILS # 0.3 10^3/ul (0.0-0.5); EOSINOPHILS % 2.2 % (0.0-7.0); HEMATOCRIT 28.2 % (42.0-52.0); HEMOGLOBIN 8.7 g/dl (14.0-18.0); LYMPHOCYTES # 2.1 10^3/ul (0.8-2.9); LYMPHOCYTES % 17.9 % (15.0-51.0); MEAN CORPUSCULAR HEMOGLOBIN 29.9 pg (29.0-33.0); MEAN CORPUSCULAR HGB CONC 30.9 g/dl (32.0-37.0); MEAN CORPUSCULAR VOLUME 96.9 fl (82.0-101.0); MEAN PLATELET VOLUME 12.2 fl (7.4-10.4); MONOCYTE # 0.9 10^3/ul (0.3-0.9); MONOCYTES % 7.5 % (0.0-11.0); NEUTROPHIL # 8.4 10^3/ul (1.6-7.5); NEUTROPHILS % 71.5 % (39.0-77.0); PLATELET COUNT 283 10^3/UL (140-415); RED BLOOD COUNT 2.91 10^6/ul (4.70-6.10); RED CELL DISTRIBUTION WIDTH 19.4 % (11.5-14.5); WHITE BLOOD COUNT 11.8 10^3/ul (4.8-10.8)
--- NOTE | 2016-11-21 11:29 | PN ---
Date/Time of Note Date/Time of Note DATE: 11/21/16 TIME: 11:26 Assessment/Plan Lines/Catheters IV Catheter Type (from Nrsg): Saline Lock Urinary Cath still in place: No Exam/Review of Systems Vital Signs Vitals Vital Signs Date Time Temp Pulse Resp B/P Pulse Ox O2 Delivery O2 Flow Rate FiO2 11/21/16 08:44 98.0 72 18 150/68 97 11/20/16 15:25 Room Air 11/19/16 21:56 21 Intake and Output 11/20/16 11/20/16 11/21/16 15:00 23:00 07:00 Intake Total 100 ml 2090 ml 450 ml Output Total 3500 ml 200 ml Balance 100 ml -1410 ml 250 ml Results Result Diagram: 11/21/16 0504 11/21/16 0504 Results 24 hrs Laboratory Tests Test 11/20/16 16:35 11/20/16 19:45 11/20/16 20:19 11/21/16 05:04 Bedside Glucose 133 167 Hemoglobin 9.4 #L 8.7 L White Blood Count 11.8 H Red Blood Count 2.91 L Hematocrit 28.2 L Mean Corpuscular Volume 96.9 Mean Corpuscular Hemoglobin 29.9 Mean Corpuscular Hemoglobin Concent 30.9 L Red Cell Distribution Width 19.4 H Platelet Count 283 Mean Platelet Volume 12.2 H Neutrophils % 71.5 Lymphocytes % 17.9 Monocytes % 7.5 Eosinophils % 2.2 Basophils % 0.3 Nucleated Red Blood Cells % 0.0 Neutrophils # 8.4 H Lymphocytes # 2.1 Monocytes # 0.9 Eosinophils # 0.3 Basophils # 0.0 Nucleated Red Blood Cells # 0.0 Sodium Level 133 L Potassium Level 5.4 H Chloride Level 100 Carbon Dioxide Level 28 Anion Gap 10 # Blood Urea Nitrogen 37 #H Creatinine 4.12 #H Glucose Level 133 Calcium Level 7.8 L Phosphorus Level 2.5 Magnesium Level 2.3 Test 11/21/16 07:50 Bedside Glucose 107 Medications Medications Current Medications Metoclopramide HCl (Reglan) 10 mg Q6H PRN IV NAUSEA AND/OR VOMITING; Start at 21:00 Acetaminophen (Tylenol Tab) 650 mg Q6H PRN PO PAIN LEVEL 1-3 OR FEVER; Start at 21:00 Amlodipine Besylate (Norvasc) 10 mg DAILY PO Last administered on 11/21/16 08: 58; Admin Dose 10 MG; Start 11/20/16 at 09:00 Benazepril HCl (Lotensin) 10 mg BID PO Last administered on 11/21/16 08:57; Admin Dose 10 MG; Start 11/19/16 at 21:00 Docusate Sodium (Colace) 100 mg DAILY PO Last administered on 11/21/16 08:57; Admin Dose 100 MG; Start 11/20/16 at 09:00 Famotidine (Pepcid) 10 mg Q48H PO Last administered on 11/19/16 23:33; Admin Dose 10 MG; Start 11/19/16 at 21:00 Acetaminophen/ Hydrocodone Bitart ([place] (5/325)) 1 tab Q6H PRN PO PAIN Last administered on 11/20/16 05:20; Admin Dose 1 TAB; Start 11/19/16 at 21:00 Metoprolol Tartrate (Lopressor) 25 mg BID PO Last administered on 11/21/16 08: 58; Admin Dose 25 MG; Start 11/19/16 at 21:00 Nitroglycerin 1 tab 1 tab Q5M PRN SL CHEST PAIN; Start 11/19/16 at 21:00 Piperacillin Sod/ Tazobactam Sod (Zosyn 3.375gm/ 100 ml (Pmx)) 100 ml @ 200 mls /hr Q12 IVPB Last administered on 11/21/16 08:57; Admin Dose 200 MLS/HR; Start 11/20/16 at 08:00 Diagnostic Test (Pha) (Accu-Chek) 1 ea 02 XX ; Start 11/20/16 at 02:00 Miscellaneous Information 1 ea NOTE XX ; Start 11/20/16 at 01:30 Glucose (Glutose) 15 gm Q15M PRN PO DECREASED GLUCOSE; Start 11/20/16 at 01:30 Glucose (Glutose) 22.5 gm Q15M PRN PO DECREASED GLUCOSE; Start 11/20/16 at 01: 30 Dextrose (D50w Syringe) 25 ml Q15M PRN IV DECREASED GLUCOSE; Start 11/20/16 at 01:30 Dextrose (D50w Syringe) 50 ml Q15M PRN IV DECREASED GLUCOSE; Start 11/20/16 at 01:30 Glucagon (Glucagen) 1 mg Q15M PRN IM DECREASED GLUCOSE; Start 11/20/16 at 01:30 Glucose (Glutose) 15 gm Q15M PRN BUCCAL DECREASED GLUCOSE; Start 11/20/16 at 01 :30 Clonidine HCl (Catapres-Tts 1 Patch) 1 patch Q7D TRANSDERM Last administered on 11/20/16 01:56; Admin Dose 1 PATCH; Start 11/20/16 at 02:00 Heparin Sodium (Porcine) (Heparin (5000 Units/0.5 ml)) 5,000 unit BID SC Last administered on 11/21/16 09:08; Admin Dose 5,000 UNIT; Start 11/20/16 at 09:00 Miscellaneous Information Renal Dosing, if need... ONCE XX ; Start 11/20/16 at 02:30 Clindamycin HCl/ Dextrose (Cleocin 900 Mg/ D5W (Pmx)) 50 ml @ 50 mls/hr Q8 IVPB Last administered on 11/21/16 05:05; Admin Dose 50 MLS/HR; Start 11/20/16 at 06:00 Morphine Sulfate (morphine) 3 mg Q4H PRN IV pain Last administered on 08:59; Admin Dose 3 MG; Start 11/20/16 at 10:00 Clonidine (Catapres) 0.1 mg BID PRN PO SBP>160 Last administered on 11/20/16 22:47; Admin Dose 0.1 MG; Start 11/20/16 at 23:00 ELIJAH DEUTSCH Nov 21, 2016 11:29
[2016-11-21] MEDS ORDERED: NA POLYST SULFON 15 GM/60 ML BTL PO ONE (11:30)
--- NOTE | 2016-11-21 13:28 | CONS ---
Date/Time of Note Date/Time of Note DATE: 11/21/16 TIME: 13:00 Assessment/Plan Assessment/Plan Chief Complaint/Hosp Course ID PROGRESS NOTE CURRENT ABX=> Clindamycin + Zosyn 11/19/16 * S/P Prior Admit OCTOBER 2016 ABX=> Zyvox, Merrem HOSPITAL COURSE =>Re-admitted 11/19/16 with progression of RLEXT foot/gangrene. * Vet followed by Dr. Galindo ID team consultants for known BLEXT gangrene due to severe BLEXT PAD with progressive diabetic foot ulcers. He failed LLEXT limb salvage re-vascularization attempts; subsequently required LLEXT AKA on 11/03 for progressive diabetic, ischemic gangrene, with left foot wound cx (+)for E.Coli-ESBL MDRO. A new HD PermCath was inserted on 11/09/16. The patient was DC 'd on 11/15/16. * The patient returned to [facility] ED on 11/19/16 with progressive RLEXT gangrene. Due to recent LLEXT AKA, he is now wheelchair bound and not ready to pursue immediate RLEXT revascularization procedures which will be required future for RLEXT limb salvage. He has been seen by [facility] provider and renal provider -- Per Dr. Stanley, the plan is to DC home today after he completes HD session on IV vs PO ABX. * PICC line placement for continuation of Zosyn and Clindamycin IV is a relative contraindication due to his vasculopath status and ESRD status. BUEXT extremities should be preserved for future HD AVF access. * NOTED: Patient is NON-Compliant and continue to smoke cigarettes which places him at high risk for future RLEXT amputation. * ADMISSION STATS: Tmax 99.8, WBC high 11.8 * CXR 11/19/16 IMPRESSION: * 1. Patchy right basilar opacity, possibly atelectasis, pulmonary edema, or pneumonia. * 2. Lower extremity central venous catheter tip in the lower SVC. * 3. Aortic atherosclerosis. * RIGHT FOOT IMAGING 11/19/16: * 1. No acute fracture or dislocation is seen. * 2. No gross evidence of focal osseous lesion is seen to indicate osteomyelitis. * 3. Arterial atherosclerotic calcifications are noted. * PRIOR ADMISSION MICRO: Left foot grew (+)E.Coli-ESBL that was sensitive to Amikacin, (-)MRSA Nares screen. PHYSICAL EXAMINATION: GENERAL:VSS, NAD, thin, appearing M, awake, alert, oriented, responsive , calm, VSS, NAD, no fevers HEENT: Unremarkable NECK: Supple, trachea midline. CHEST: Rise symmetrical, without dyspnea on observation HEART: Pulse RRR ABDOMEN: soft EXTREMITIES: Warm ->(+)right foot/toes gangrenous changes / Left stump DSG c/d/ i ID ASSESSMENT 65 yo M admit with: 1. Severe BLEXT VASCULOPATHYdue to (+)Tobacco user, (+)DM, (+)HLD, (+) severe BLEXT PAD * s/p 11/03/16 LEFT AKA due to progressive LLEXT gangrene w/ PAD-> Hx of angio/ bypass. Failed redo bypass. * RIGHT lower extremity w/progressive gangrenous changes, per APC he will need future limb salvage re-vascularization procedures 2. End-stage renal disease=> HD * New PermCat 11/09/16 3. Anemia of chronic disease. 4. DM 5. HTN 6. ASHD->Systolic HF w/EF of 40% to 45% 7. Chronic debility due to co-morbidities w/Impaired mobility due to Left AKA (-) MRSA Nares last admission INVASIVES: PIV, New PermCat 11/09/16 ABX ALLERGY: VANCO IV -> Grand-daughter reports (+)Red rash w/acute SOB concern for anaphylaxis CURRENT ABX: Clindamycin IV + Zosyn IV ID RECOMMENDATIONS 1. DC Clindamycin IV & DC Zosyn IV 2. DC PLANNING FOR TODAY ->Patient may DC on the following ABX X 6 weeks * Start Amikacin 500mg IV x1 TREVON today he is s/p HD today - * DC CASE MANAGEMENT ORDER PLACE> Continue Amikacin 5mg/kg IV x1 after each HD session x 6 weeks -> to be given by HD RN at HD Center. * Daptomycin 6mg/kg IVPB Q48H via peripheral IV x1 today * DC CASE MANAGEMENT ORDER PLACED -> Daptomycin 6mg/kg IVPB q48H x 6 weeks => next dose due 11/23/16 @ 1700 via HH RN to come to home to administer vs family education to administer at home per HH RN * NOTE: HOLD STATIN Rx while on DAPTOMYCIN IV ABX due to risk of elevated CPK per drug-drug interaction. * HH AGENCY PLEASE NOTE: PICC Line is contraindicated due to ESRD-HD + Vasculopathy status. Please infuse Daptomycin via peripheral IV. * Flagyl PO 250mg TID x 6 weeks take with food-crackers, Mylanta PRN for dyspepsia Thank you for re-consulting Dr. Galindo ID team consultations. Report given to Dr. Galindo who concurs. Problems: Consultation Date/Type/Reason Admit Date/Time Nov 19, 2016 at 20:40 Initial Consult Date Exam/Review of Systems Vital Signs Vitals Vital Signs Date Time Temp Pulse Resp B/P Pulse Ox O2 Delivery O2 Flow Rate FiO2 11/21/16 08:44 98.0 72 18 150/68 97 11/20/16 15:25 Room Air 11/19/16 21:56 21 Intake and Output 11/20/16 11/20/16 11/21/16 15:00 23:00 07:00 Intake Total 100 ml 2090 ml 450 ml Output Total 3500 ml 200 ml Balance 100 ml -1410 ml 250 ml Results Result Diagram: 11/21/16 0504 11/21/16 0504 Results 24 hrs Laboratory Tests Test 11/20/16 16:35 11/20/16 19:45 11/20/16 20:19 11/21/16 05:04 Bedside Glucose 133 167 Hemoglobin 9.4 #L 8.7 L White Blood Count 11.8 H Red Blood Count 2.91 L Hematocrit 28.2 L Mean Corpuscular Volume 96.9 Mean Corpuscular Hemoglobin 29.9 Mean Corpuscular Hemoglobin Concent 30.9 L Red Cell Distribution Width 19.4 H Platelet Count 283 Mean Platelet Volume 12.2 H Neutrophils % 71.5 Lymphocytes % 17.9 Monocytes % 7.5 Eosinophils % 2.2 Basophils % 0.3 Nucleated Red Blood Cells % 0.0 Neutrophils # 8.4 H Lymphocytes # 2.1 Monocytes # 0.9 Eosinophils # 0.3 Basophils # 0.0 Nucleated Red Blood Cells # 0.0 Sodium Level 133 L Potassium Level 5.4 H Chloride Level 100 Carbon Dioxide Level 28 Anion Gap 10 # Blood Urea Nitrogen 37 #H Creatinine 4.12 #H Glucose Level 133 Calcium Level 7.8 L Phosphorus Level 2.5 Magnesium Level 2.3 Test 11/21/16 07:50 11/21/16 11:33 Bedside Glucose 107 189 Medications Medications Current Medications Metoclopramide HCl (Reglan) 10 mg Q6H PRN IV NAUSEA AND/OR VOMITING; Start at 21:00 Acetaminophen (Tylenol Tab) 650 mg Q6H PRN PO PAIN LEVEL 1-3 OR FEVER; Start at 21:00 Amlodipine Besylate (Norvasc) 10 mg DAILY PO Last administered on 11/21/16 08: 58; Admin Dose 10 MG; Start 11/20/16 at 09:00 Benazepril HCl (Lotensin) 10 mg BID PO Last administered on 11/21/16 08:57; Admin Dose 10 MG; Start 11/19/16 at 21:00 Docusate Sodium (Colace) 100 mg DAILY PO Last administered on 11/21/16 08:57; Admin Dose 100 MG; Start 11/20/16 at 09:00 Famotidine (Pepcid) 10 mg Q48H PO Last administered on 11/19/16 23:33; Admin Dose 10 MG; Start 11/19/16 at 21:00 Acetaminophen/ Hydrocodone Bitart ([place] (5/325)) 1 tab Q6H PRN PO PAIN Last administered on 11/20/16 05:20; Admin Dose 1 TAB; Start 11/19/16 at 21:00 Metoprolol Tartrate (Lopressor) 25 mg BID PO Last administered on 11/21/16 08: 58; Admin Dose 25 MG; Start 11/19/16 at 21:00 Nitroglycerin 1 tab 1 tab Q5M PRN SL CHEST PAIN; Start 11/19/16 at 21:00 Piperacillin Sod/ Tazobactam Sod (Zosyn 3.375gm/ 100 ml (Pmx)) 100 ml @ 200 mls /hr Q12 IVPB Last administered on 11/21/16 08:57; Admin Dose 200 MLS/HR; Start 11/20/16 at 08:00 Diagnostic Test (Pha) (Accu-Chek) 1 ea 02 XX ; Start 11/20/16 at 02:00 Miscellaneous Information 1 ea NOTE XX ; Start 11/20/16 at 01:30 Glucose (Glutose) 15 gm Q15M PRN PO DECREASED GLUCOSE; Start 11/20/16 at 01:30 Glucose (Glutose) 22.5 gm Q15M PRN PO DECREASED GLUCOSE; Start 11/20/16 at 01: 30 Dextrose (D50w Syringe) 25 ml Q15M PRN IV DECREASED GLUCOSE; Start 11/20/16 at 01:30 Dextrose (D50w Syringe) 50 ml Q15M PRN IV DECREASED GLUCOSE; Start 11/20/16 at 01:30 Glucagon (Glucagen) 1 mg Q15M PRN IM DECREASED GLUCOSE; Start 11/20/16 at 01:30 Glucose (Glutose) 15 gm Q15M PRN BUCCAL DECREASED GLUCOSE; Start 11/20/16 at 01 :30 Clonidine HCl (Catapres-Tts 1 Patch) 1 patch Q7D TRANSDERM Last administered on 11/20/16 01:56; Admin Dose 1 PATCH; Start 11/20/16 at 02:00 Heparin Sodium (Porcine) (Heparin (5000 Units/0.5 ml)) 5,000 unit BID SC Last administered on 11/21/16 09:08; Admin Dose 5,000 UNIT; Start 11/20/16 at 09:00 Miscellaneous Information Renal Dosing, if need... ONCE XX ; Start 11/20/16 at 02:30 Clindamycin HCl/ Dextrose (Cleocin 900 Mg/ D5W (Pmx)) 50 ml @ 50 mls/hr Q8 IVPB Last administered on 11/21/16 05:05; Admin Dose 50 MLS/HR; Start 11/20/16 at 06:00 Morphine Sulfate (morphine) 3 mg Q4H PRN IV pain Last administered on 08:59; Admin Dose 3 MG; Start 11/20/16 at 10:00 Clonidine (Catapres) 0.1 mg BID PRN PO SBP>160 Last administered on 11/20/16 22:47; Admin Dose 0.1 MG; Start 11/20/16 at 23:00 CARLOS THAKUR NP Nov 21, 2016 13:19 Heparin Sodium (Porcine) (Heparin (5000 Units/0.5 ml)) 5,000 unit BID SC Last administered on 11/21/16 09:08; Admin Dose 5,000 UNIT; Start 11/20/16 at 09:00 Miscellaneous Information Renal Dosing, if need... ONCE XX ; Start 11/20/16 at 02:30 Clindamycin HCl/ Dextrose (Cleocin 900 Mg/ D5W (Pmx)) 50 ml @ 50 mls/hr Q8 IVPB Last administered on 11/21/16 05:05; Admin Dose 50 MLS/HR; Start 11/20/16 at 06:00 Morphine Sulfate (morphine) 3 mg Q4H PRN IV pain Last administered on 08:59; Admin Dose 3 MG; Start 11/20/16 at 10:00 Clonidine (Catapres) 0.1 mg BID PRN PO SBP>160 Last administered on 11/20/16 22:47; Admin Dose 0.1 MG; Start 11/20/16 at 23:00 CARLOS THAKUR NP Nov 21, 2016 13:19
[2016-11-21] MEDS ORDERED: AMIKACIN IV PER PHARMACY XX STA (13:42)
--- NOTE | 2016-11-21 13:49 | PN ---
DATE: SUBJECTIVE: The patient is stable, no acute events overnight. The patient had hemodialysis, she to lerated it well. The patient is scheduled for dialysis again today. OBJECTIVE: VITAL SIGNS: Blood pressure is 150/68, respiration 18, pulse 72, temperature 98.0. HEENT: Head is normocephalic. NECK: Supple. HEART: Regular rate. LUNGS: Show diminished breath sounds at base. ABDOMEN: Soft, nontender to palpation without rebound or guarding. EXTREMITIES: Negative for clubbing, cyanosis. No edema, positive gangrenous toe on his right extre mity. Left below-knee amputation noted. DERMATOLOGIC: No rashes. MUSCULOSKELETAL: No joint effusions. NEUROLOGIC: No change in exam. MEDICATIONS: The patient's medications have been reviewed. LABORATORY DATA: Showed sodium 133, potassium 5.4, chloride 100, BUN 37, creatinine 4.12. White co unt 11.8, hemoglobin 8.7, hematocrit 30.2, platelet count is 283. ASSESSMENT AND PLAN: 1. End-stage renal disease. The patient is on dialysis Tuesday, , Tuesday. Hemodialysis yesterday. Plan for dialysis again today for solute clearance with dialysis 3 hours, 2K bath, calci um 2.5. Will ultrafiltrate as tolerated. 2. Hyperkalemia secondary to end-stage renal disease. The patient will be dialyzed with 2 potassiu m bath. 3. ____. Continue phos binders as needed. 4. Anemia of end-stage renal disease. Continue Epogen with dialysis. 5. Hypertension. Continue current blood pressure regimen. 6. Peripheral vascular disease with right gangrenous toe. Continue current antibiotic regimen. Fo llow up with vascular surgery. 7. History of left above-knee amputation. 8. History of tobacco abuse. Dictated By: OMAR BABB/SIN Conf#: [id number] DID#: [id number]
[2016-11-21] MEDS ORDERED: BENA20TA48 PO (13:55)
[2016-11-21] MEDS ORDERED: AMIKACIN 425 MG in SOD CHLORIDE 0.9% 100 ML IVPB SCH (14:30)
[2016-11-21] MEDS ORDERED: DAPTOMYCIN IVPB SCH (15:45)
[2016-11-21] MEDS ORDERED: SOD CHLORIDE 0.9% IVPB SCH (15:45)
--- NOTE | 2016-11-21 16:17 | CONS ---
DATE OF ADMISSION: 11/19/2016 DATE OF CONSULTATION: 11/21/2016 TYPE OF CONSULTATION: Infectious disease. REASON FOR CONSULTATION: Antibiotic management. HISTORY OF PRESENT ILLNESS: Caleb Anderson is a pleasant 64-year-old male who has numerous problems and was sent in for a diabetic foot ulcer. His past problems include: 1. End-stage renal disease on hemodialysis. 2. Right femoral tunneled catheter. The patient presents with discoloration of his right big toe and right heel, that has progressively worsened over the past several days. Over the past 48 hours prior to admission, he experienced pain in the right foot. He underwent a left below knee amputation on 10/15/2016 followed by an above kn ee amputation on 11/07/2016 due to gangrenous changes of left lower extremity. The patient has no fever or chills. The pain in the big right toe is 10/10 on admission. His past problems include: 1. End-stage renal disease on hemodialysis. 2. Right femoral tunneled catheter. 3. Left femoral bypass. 4. Left iliofemoral endarterectomy 5. Diabetic neuropathy. 6. Hypertension. 7. Hypercholesterolemia 8. Coronary artery disease 9. Anemia. 10. History of tobacco use in the past. On admission, his white count was 11.2, H and H 7.5 and 24.3, platelet count 342,000. BUN and creat inine 45/5.29. PAST MEDICAL HISTORY AND OPERATIONS: As outlined. FAMILY HISTORY: Noncontributory. SOCIAL HISTORY: Has a history of smoking and still does. ALLERGIES: VANCOMYCIN TO WHICH HE GETS A RASH. MEDICATIONS: Per chart. REVIEW OF SYSTEMS: Noncontributory. PHYSICAL EXAMINATION: GENERAL: The patient is a well-developed, well-nourished male who is alert, responsive, in no acute distress. VITAL SIGNS: Stable. He is afebrile. SKIN: Without generalized rash. HEENT: Within normal limits. NECK: Supple. LYMPH NODES: None palpable. CHEST: Decreased breath sounds at the bases. HEART: Without murmur or gallop. ABDOMEN: Soft, nontender, without organosplenomegaly or masses. The left extremity is without cyanosis, clubbing. He has left above knee amputation. Stump is payton n and dry. He has necrosis of the right big toe with gangrenous changes right calcaneus, and right second toe. Dorsalis pedis and posterior tibialis on the left are diminished. RECTAL AND GENITAL: Deferred. NEUROLOGIC: No focal neurological abnormality. The patient was started on clindamycin and Zosyn. MICROBIOLOGY: Urine is negative. Blood cultures are negative. IMAGING: An x-ray of the foot shows no acute fracture or dislocation, no gross evidence of focal os seous lesions indicating osteomyelitis. The chest x-ray has patchy right basilar opacity, possibly atelectasis, pulmonary edema or pneumonia. The lower extremity central venous catheter tip in the l ower superior vena cava. LABORATORY DATA: White count today is 11.8, H and H 8.7 and 28.2, platelet count 283,000. IMPRESSION AND PLAN: At this point, we have no cultures to go by with regards to the wound, althoug h wound care has seen the patient. I would continue the patient on current antibiotic therapy. We will consider switching over to IV, but in view of his past history, we may want to hold off a [facility] before we do that. White count today is 11.8, H and H 37/4.12. I will dictate my findings to Dr. Stanley, as well as to Dr. Ivy and to Dr. Quintero. Dictated By: NICOLE NICHOLS MD, JD/SIN Conf#: [id number] DID#: [id number]
[2016-11-21] MEDS ORDERED: METR250T PO (18:26)
[2016-11-21] MEDS ORDERED: METR-111 PO (22:10)
[2016-11-21] MEDS ORDERED: DAPT500V IV (22:10)
[2016-11-21] MEDS ORDERED: AMIK500I IM (22:10)
--- NOTE | 2016-11-21 22:12 | DS ---
Date/Time of Note Date/Time of Note DATE: 11/21/16 TIME: 22:11 Discharge Summary Admission/Discharge Info Admit Date/Time Nov 19, 2016 at 20:40 Discharge Date/Time Nov 21, 2016 at 19:40 Final Diagnosis 65 yo M with 1. Bilateral lower extremity atherosclerosis with gangrene: 2. Diabetic foot infection / cellulitis 3. S/p recent left lower extremity amputation. 4. Severe PAD 5. ESRD on HD 6. Tobacco abuse 7. HTN : good control 8. Anemia of CKD Patient Condition: Stable Consults vasc Sx: egbalieh ID : melania Tabares of Present Illness [facility] Course ID PROGRESS NOTE CURRENT ABX=> Clindamycin + Zosyn 11/19/16 * S/P Prior Admit OCTOBER 2016 ABX=> Zyvox, Mer[facility] HOSPITAL COURSE =>Re-admitted 11/19/16 with progression of RLEXT foot/gangrene. * Vet followed by Dr. Galindo ID team consultants for known BLEXT gangrene due to severe BLEXT PAD with progressive diabetic foot ulcers. He failed LLEXT limb salvage re-vascularization attempts; subsequently required LLEXT AKA on 11/03 for progressive diabetic, ischemic gangrene, with left foot wound cx (+)for E.Coli-ESBL MDRO. A new HD PermCath was inserted on 11/09/16. The patient was DC 'd on 11/15/16. * The patient returned to [facility] ED on 11/19/16 with progressive RLEXT gangrene. Due to recent LLEXT AKA, he is now wheelchair bound and not ready to pursue immediate RLEXT revascularization procedures which will be required future for RLEXT limb salvage. He has been seen by [facility] provider and renal provider -- Per Dr. Deutsch, the plan is to DC home today after he completes HD session on IV vs PO ABX. * PICC line placement for continuation of Zosyn and Clindamycin IV is a relative contraindication due to his vasculopath status and ESRD status. BUEXT extremities should be preserved for future HD AVF access. * NOTED: Patient is NON-Compliant and continue to smoke cigarettes which places him at high risk for future RLEXT amputation. * ADMISSION STATS: Tmax 99.8, WBC high 11.8 * CXR 11/19/16 IMPRESSION: * 1. Patchy right basilar opacity, possibly atelectasis, pulmonary edema, or pneumonia. * 2. Lower extremity central venous catheter tip in the lower SVC. * 3. Aortic atherosclerosis. * RIGHT FOOT IMAGING 11/19/16: * 1. No acute fracture or dislocation is seen. * 2. No gross evidence of focal osseous lesion is seen to indicate osteomyelitis. * 3. Arterial atherosclerotic calcifications are noted. * PRIOR ADMISSION MICRO: Left foot grew (+)E.Coli-ESBL that was sensitive to Amikacin, (-)MRSA Nares screen. PHYSICAL EXAMINATION: GENERAL:VSS, NAD, thin, appearing M, awake, alert, oriented, responsive , calm, VSS, NAD, no fevers HEENT: Unremarkable NECK: Supple, trachea midline. CHEST: Rise symmetrical, without dyspnea on observation HEART: Pulse RRR ABDOMEN: soft EXTREMITIES: Warm ->(+)right foot/toes gangrenous changes / Left stump DSG c/d/ i ID ASSESSMENT 65 yo M admit with: 1. Severe BLEXT VASCULOPATHYdue to (+)Tobacco user, (+)DM, (+)HLD, (+) severe BLEXT PAD * s/p 11/03/16 LEFT AKA due to progressive LLEXT gangrene w/ PAD-> Hx of angio/ bypass. Failed redo bypass. * RIGHT lower extremity w/progressive gangrenous changes, per [facility] he will need future limb salvage re-vascularization procedures 2. End-stage renal disease=> HD * New PermCath 11/09/16 3. Anemia of chronic disease. 4. DM 5. HTN 6. ASHD->Systolic HF w/EF of 40% to 45% 7. Chronic debility due to co-morbidities w/Impaired mobility due to Left AKA (-) MRSA Nares last admission INVASIVES: PIV, New PermCath 11/09/16 ABX ALLERGY: VANCO IV -> Grand-daughter reports (+)Red rash w/acute SOB concern for anaphylaxis CURRENT ABX: Clindamycin IV + Zosyn IV ID RECOMMENDATIONS 1. DC Clindamycin IV & DC Zosyn IV 2. DC PLANNING FOR TODAY ->Patient may DC on the following ABX X 6 weeks * Start Amikacin 500mg IV x1 TREVON today he is s/p HD today - * DC CASE MANAGEMENT ORDER PLACE> Continue Amikacin 5mg/kg IV x1 after each HD session x 6 weeks -> to be given by HD RN at HD Center. * Daptomycin 6mg/kg IVPB Q48H via peripheral IV x1 today * DC CASE MANAGEMENT ORDER PLACED -> Daptomycin 6mg/kg IVPB q48H x 6 weeks => next dose due 11/23/16 @ 1700 via HH RN to come to home to administer vs family education to administer at home per HH RN * NOTE: HOLD STATIN Rx while on DAPTOMYCIN IV ABX due to risk of elevated CPK per drug-drug interaction. * HH AGENCY PLEASE NOTE: PICC Line is contraindicated due to ESRD-HD + Vasculopathy status. Please infuse Daptomycin via peripheral IV. * Flagyl PO 250mg TID x 6 weeks take with food-crackers, Mylanta PRN for dyspepsia Thank you for re-consulting Dr. Galindo ID team consultations. Report given to Dr. Galindo who concurs. Home Meds Active Scripts Metronidazole (Flagyl) 250 Mg Tab, 250 MG PO TID for 42 Days, TAB Prov:ELIJAH DEUTSCH. 11/21/16 Daptomycin (Daptomycin) 500 Mg Vial, 360 MG IV Q48H, #42 VIAL Prov:ELIJAH DEUTSCH. 11/21/16 Amikacin Sulfate (Amikacin Sulfate) 250 Mg/Ml Soln, 500 MG IM Q48H for 42 Days, VIAL after dialysis Prov:ELIJAH DEUTSCH. 11/21/16 Metronidazole* (Flagyl*) 250 Mg Tablet, 250 MG PO TID for 42 Days, TAB Prov:SHANNAN DELUCA 11/21/16 Benazepril Hcl* (Benazepril Hcl*) 20 Mg Tablet, 20 MG PO BID, #60 TAB 3 Refills Prov:ELIJAH DEUTSCH 11/21/16 Famotidine* (Famotidine*) 20 Mg Tablet, 20 MG PO DAILY, #30 TAB Prov:OZZIE HERRERA MD 11/10/16 Docusate Sodium (Dok) 100 Mg Capsule, 100 MG PO DAILY, #30 CAP Prov:OZZIE HERRERA MD 11/10/16 Aspirin* (Aspirin* EC) 81 Mg Tablet., 81 MG PO DAILY, #30 Prov:OZZIE HERRERA MD 11/10/16 Nitroglycerin* (Nitrostat*) 0.4 Mg Tab.subl, 1 TAB SL Q5M Y for CHEST PAIN, #60 Prov:OZZIE HERRERA MD 11/10/16 Metoprolol Tartrate* (Lopressor*) 25 Mg Tab, 25 MG PO BID, #60 TAB Prov:OZZIE HERRERA MD 11/10/16 Clonidine Patch (CATAPRES PATCH) 0.1 Mg/24 Hr Patch, 1 PATCH TRANSDERM Q7D for 30 Days, #4 PATCH Prov:OZZIE HERRERA MD 11/10/16 Apixaban* (Eliquis*) 5 Mg Tablet, 2.5 MG PO BID, #60 TAB Prov:OZZIE HERRERA MD 11/10/16 Albuterol Sulfate* (Ventolin HFA*) 18 Gm Hfa.aer.ad, 2 PUFF INH Q8 for 30 Days Prov:OZZIE HERRERA MD 11/10/16 Hydrocodone/Acetaminophen ([place] 5-325 Tablet) 1 Each Tablet, 1 EACH PO Q6H Y for PAIN, #60 TAB Prov:OZZIE HERRERA MD 11/10/16 Amlodipine Besylate* (Amlodipine Besylate*) 10 Mg Tablet, 10 MG PO DAILY, #30 TAB Prov:OZZIE HERRERA MD 11/10/16 Discontinued Scripts Benazepril Hcl* (Benazepril Hcl*) 10 Mg Tablet, 10 MG PO BID, #60 TAB Prov:OZZIE HERRERA MD 11/10/16 Glipizide* (Glipizide*) 5 Mg Tablet, 2.5 MG PO DAILY, #30 TAB Prov:OZZIE HERRERA MD 11/10/16 Pending Labs Laboratory Tests Test 11/21/16 05:04 11/21/16 07:50 11/21/16 11:33 11/21/16 17:29 White Blood Count 11.810^3/ul (4.8-10.8) Red Blood Count 2.9110^6/ul (4.70-6.10) Hemoglobin 8.7g/dl (14.0-18.0) Hematocrit 28.2% (42.0-52.0) Mean Corpuscular Volume 96.9fl (82.0-101.0) Mean Corpuscular Hemoglobin 29.9pg (29.0-33.0) Mean Corpuscular Hemoglobin Concent 30.9g/dl (32.0-37.0) Red Cell Distribution Width 19.4% (11.5-14.5) Platelet Count 37200^3/UL (140-415) Mean Platelet Volume 12.2fl (7.4-10.4) Neutrophils % 71.5% (39.0-77.0) Lymphocytes % 17.9% (15.0-51.0) Monocytes % 7.5% (0.0-11.0) Eosinophils % 2.2% (0.0-7.0) Basophils % 0.3% (0.0-2.0) Nucleated Red Blood Cells % 0.0/100WBC (0.0-0.0) Neutrophils # 8.410^3/ul (1.6-7.5) Lymphocytes # 2.110^3/ul (0.8-2.9) Monocytes # 0.910^3/ul (0.3-0.9) Eosinophils # 0.310^3/ul (0.0-0.5) Basophils # 0.010^3/ul (0.0-0.1) Nucleated Red Blood Cells # 0.010^3/ul (0.0-0.0) Sodium Level 133mmol/L (135-144) Potassium Level 5.4mmol/L (3.5-5.1) Chloride Level 100mmol/L (97-110) Carbon Dioxide Level 28mmol/L (21-31) Anion Gap 10 (8-16) Blood Urea Nitrogen 37mg/dl (7-20) Creatinine 4.12mg/dl (0.61-1.24) Glucose Level 133mg/dl (70-220) Calcium Level 7.8mg/dl (8.4-10.2) Phosphorus Level 2.5mg/dl (2.5-4.9) Magnesium Level 2.3mg/dl (1.7-2.5) Bedside Glucose 107mg/dL (70-220) 189mg/dL (70-220) 154mg/dL (70-220) ELIJAH DEUTSCH Nov 21, 2016 22:11
[2016-11-22] MEDS ORDERED: AMIKACIN 300 MG in SOD CHLORIDE 0.9% 100 ML IVPB SCH (09:00)
--- NOTE | 2016-11-24 11:54 | DS ---
DATE OF ADMISSION: 11/19/2016 DATE OF DISCHARGE: 11/21/2016 FINAL DIAGNOSES: 1. Right-sided gangrenous toes secondary to severe bilateral lower extremity atherosclerosis. 2. Diabetic foot infection and cellulitis superimposed on #1. 3. Status post recent left lower extremity above knee amputation. 4. Severe peripheral artery disease. 5. End-stage renal disease on hemodialysis. 6. Chronic tobacco abuse. 7. Hypertension with good control. 8. Anemia of chronic kidney disease. 9. Right sided opacities on x-ray, likely atelectasis without evidence of pneumonia. CONSULTS ON THE CASE: 1. Dr. Bradley Quintero. 2. Dr. Wei Ivy from nephrology. 3. Dr. Nigel Galindo from infectious disease. INTERVENTIONS: Specifically IV antibiotics and hemodialysis. DISPOSITION: To home with home health therapy for IV antibiotics for a total of 6 weeks. HOSPITAL COURSE: Full details are available in chart for review. In summary, the patient came in w ith right lower extremity pain and swelling and was found to have a cellulitis superimposed on gangr enous toes. Foot x-ray showed no acute fracture, no evidence of osteomyelitis, and atherosclerosis. A chest x-ray showed right-sided patchy basilar opacities and atherosclerosis. He was admitted an d started on broad-spectrum antibiotics and had very good response. He was reviewed by vascular tristan evelyn who recommended intervention; however, ____ the patient had recently had a left AKA. He was ve ry hesitant about this and declined the procedure. Based on that, vascular surgery cleared him for discharge on IV antibiotics with ID recommendations. I reviewed him and recommended starting him o n triple antibiotics with amikacin, Flagyl and daptomycin based on his previous culture results. e patient is being discharged in stable condition. I have spoken with ID. I have spoken with nephr ariana, and I have spoken with vascular surgery and they all cleared the patient for discharge today The patient underwent dialysis daily while in house because of hyperkalemia. DISCHARGE MEDICATIONS: 1. Amikacin 500 mg IV q.48h hours for 42 days. 2. Benazepril 20 p.o. b.i.d. 3. Daptomycin 360 IV q.48h for 42 days. 4. Flagyl 250 t.i.d. for 42 days. 5. Albuterol inhaler as needed. 6. Amlodipine 10 mg daily. 7. Eliquis 2.5 b.i.d. 8. Aspirin 81 daily. 9. Clonidine patch, 0.1 mg every 7 days. 8. Colace 100 p.o. daily. 9. Famotidine 20 daily. 10. [place] 5/325 one tab every 6 hours as needed 11. Nitroglycerin sublingual as needed as well. The patient is encouraged to follow up with his primary care physician as well as his outpatient nep hrologist and Dr. Quintero. He is also encouraged to come back to the emergency room if symptoms r ecur or worsen. I have spoken with the patient and his daughter and answered questions. The patien t has verbalized understanding and agreement with the plan. Overall time spent on discharge coordination was more than 45 minutes. Dictated By: ELIJAH DEUTSCH MD BA/NTS Conf#: [id number] DID#: [id number]
== END 2016-11-21 19:40 | disposition home health service (06) | DRG 299 ==
LOC: E/R 16:09 → PP2 20:40
PROVIDERS: ADMIT Family Medicine; ATTEND Family Medicine
PROC: 5A1D60Z (ICD-10-PCS; principal; 2016-11-19)
DX: E11.52 Type 2 diabetes mellitus with diabetic peripheral angiopathy with gangrene (principal); N18.6 End stage renal disease; E11.22 Type 2 diabetes mellitus with diabetic chronic kidney disease; I12.0 Hypertensive chronic kidney disease with stage 5 chronic kidney disease or end stage renal disease; I70.261 Atherosclerosis of native arteries of extremities with gangrene, right leg; L03.115 Cellulitis of right lower limb; J98.11 Atelectasis; Z99.2 Dependence on renal dialysis; I25.10 Atherosclerotic heart disease of native coronary artery without angina pectoris; E11.40 Type 2 diabetes mellitus with diabetic neuropathy, unspecified; Z98.890 Other specified postprocedural states; E78.00 Pure hypercholesterolemia, unspecified; Z89.612 Acquired absence of left leg above knee; Z99.3 Dependence on wheelchair; F17.210 Nicotine dependence, cigarettes, uncomplicated; D63.1 Anemia in chronic kidney disease; E83.89 Other disorders of mineral metabolism; E87.5 Hyperkalemia; E11.621 Type 2 diabetes mellitus with foot ulcer; L97.519 Non-pressure chronic ulcer of other part of right foot with unspecified severity; Z79.01 Long term (current) use of anticoagulants; Z79.82 Long term (current) use of aspirin
CPT/HCPCS: 36430; 71010; 73620; 80048; 80053; 82150; 82962; 83605; 83690; 83735; 84100; 84484; 85018; 85025; 85610; 85730; 86850; 86900; 86901; 86920; 87040; 87081; 87086; 90935; 93005; 94664; 96365; 96375; 96376; J0278; J0886; J1170; J1644; J1815; J2060; J2270; J2405; J2543; P9016

== ENCOUNTER 2016-12-22 10:11 | Day surgery (SDC) | payer MEDICAID ==
[2016-12-22] VITALS (28 sets, daily range): BP systolic 77–177; BP diastolic 32–78; PULSE 56–72; RESP 12–51; Ht 162.6 cm; Wt 47.1 kg
[~2016-12-22] VITALS: Ht 162.6 cm; Wt 47.1 kg
[~2016-12-22 10:11] MED LIST changes: +AMIK500I IM; -BENA10TA48 PO; +BENA20TA48 PO; +DAPT500V IV; -GLIP5TAB13 PO; +METR-111 PO; +METR250T PO
[2016-12-22] MEDS ORDERED: ATOR10TA65 PO (10:53)
[2016-12-22] MEDS ORDERED: METR250T PO (10:54)
[2016-12-22] MEDS ORDERED: OXYC-279 PO (10:55)
[2016-12-22] MEDS ORDERED: GLIP5TAB13 PO (10:56)
[2016-12-22] MEDS ORDERED: LIDOCAINE 1% (MDV) 20 ML INJ ONE ×2 (14:12→14:54)
[2016-12-22] MEDS ORDERED: HEPARIN 1000 UNITS/NS (A-LINE) 1,000 ML ONE (14:12)
[2016-12-22] MEDS ORDERED: FENTAnyl 50 MCG/ML VIAL ONE ×2 (14:12→16:25)
[2016-12-22] MEDS ORDERED: MIDAZOLAM 1 MG/ML 2 ML INJ ONE (14:12)
[2016-12-22] MEDS ORDERED: IODIXANOL LOCM 50 ML BTL ONE (14:54)
[2016-12-22] MEDS ORDERED: IODIXANOL LOCM 100 ML BTL ONE ×2 (15:00→15:58)
[2016-12-22] MEDS ORDERED: NITROGLYCERIN (IC) 100 MCG/ML INJ ONE (16:33)
[2016-12-22] MEDS ORDERED: VERAPAMIL 5 MG INJ ONE (16:45)
[2016-12-22] MEDS ORDERED: CEFAZOLIN 2 GM/50 ML (PMX) 50 ML IVPB ONE (16:52)
[2016-12-22] MEDS ORDERED: HYDROmorphONE 1 MG/ML SYG IV STA (17:34)
[2016-12-22] MEDS ORDERED: morphine 2 MG INJ ONE (17:37)
[2016-12-22] MEDS ORDERED: hydrALAzine 20 MG INJ IV PRN (18:00)
[2016-12-22] MEDS ORDERED: morphine 2 MG INJ IV ONE (18:00)
[2016-12-22] MEDS ORDERED: CLOPIDOGREL 75 MG TAB PO ONE (18:30)
--- NOTE | 2016-12-29 13:39 | OPR ---
DATE OF OPERATION: 12/22/2016 PREOPERATIVE DIAGNOSIS: Right lower extremity gangrene. POSTOPERATIVE DIAGNOSIS: Right lower extremity gangrene. ANESTHESIA: Local with sedation. ESTIMATED BLOOD LOSS: Minimal. COMPLICATIONS: None. HEPARIN: As recorded. CONTRAST: As recorded. ACCESS: Left common femoral artery 7-Nepali sheath. CLOSURE: Manual compression Angio-Seal closure device. SEDATION: Under physician supervision, moderate sedation was administered intravenously under judi nuous monitoring by the interventional team and attending physician. Pulse oximeter, heart rate and BPS were continuously monitored by interventional surgeon. The physician's spent time was 2 hours and 30 minutes of face [id number] sedation time with the patient. INDICATIONS: This is a 66-year-old gentleman known to our vascular surgery service with history of bilateral lower extremity gangrene. Unfortunately, the patient underwent a left above knee amputati on on the left, and currently has developed gangrene of the first and second toe. Patient is active and has been wheelchair bound and has been doing physical therapy and would like to have everything done in order to preserve his right lower extremity. Patient does have significant atherosclerotic disease and tissue loss and all the risks, benefits and alternatives were discussed with the patien t. The risks of an angiogram, balloon angioplasty, stenting and atherectomy were discussed with the patient, but not limited to bleeding, thrombosis, embolization, myocardial infarction, , devic e malfunction, infection, nephrotoxicity stroke. The patient has agreed to proceed understanding al l the risks involved. PROCEDURE: 1. Ultrasound-guided access of the left common femoral artery. 2. Aortoiliac angiogram. 3. Third order selection of the right common femoral artery. 4. Right lower extremity angiogram. 5. Balloon angioplasty of the femoral popliteal region with a 4 mm x 150 mm [place] balloon. 6. Right femoral popliteal artery atherectomy using the [employer] Jetstream device. 7. Right femoral popliteal artery stenting with 6 mm x 200 mm Innova stent, 6 mm x [address] ents, 6 x 200 mm Innova stent. 8. Right femoral popliteal balloon angioplasty with a 6 mm x 220 mm balloon. 9. Right at knee popliteal artery and below knee popliteal artery balloon angioplasty with a 4 mm x 100 mm balloon. 10. Right anterior tibial artery balloon angioplasty with a 3 mm x 220 mm [place] balloon. FINDINGS: 1. Infrarenal aorta is patent with significant calcification in the distal aspect and narrowing at the bifurcation. 2. Left common iliac artery with moderate calcification. 3. Left internal iliac artery with moderate disease and calcification. 4. Left external iliac artery with moderate calcification and disease 5. Left common femoral artery with moderate disease. 6. Left proximal profunda femoral artery patent with moderate disease. 7. Right common iliac artery with moderate disease and calcification. 8. Right internal iliac artery with moderate disease and calcification. 9. Right external iliac artery with moderate calcification and moderate disease. 10. Right common femoral artery with moderate disease. 11. Right profunda femoral artery with moderate to severe disease 12. Right superficial femoral artery with severe disease and long segment complete total occlusion 13. Right above knee popliteal artery with severe disease and segment that is totally occluded with reconstitution of the distal most aspect 14. Right at knee popliteal artery with moderate disease 15. Right below knee popliteal artery with mild to moderate disease 16. Right posterior tibial artery is occluded 17. Right tibioperoneal trunk with moderate to severe disease. 18. Right anterior tibial artery with moderate to severe disease of the proximal segment 19. Right peroneal artery with mild to moderate disease in its proximal aspect 20. Right common plantar artery not visualized. 21. Right medial and plantar arteries not visualized. 22. Right anterior and posterior communicating branch of the peroneal artery not well visualized. 23. Right dorsalis pedis artery with moderate to severe disease. DESCRIPTION OF PROCEDURE: The patient was brought into the angio suite where he was positioned in s upine position on the fluoroscopic table. Sedation was administered without complications. The lef t groin was shaved, prepped and draped in usual standard sterile fashion. Timeout and appropriate s ite was marked and confirmed. Local anesthesia was infiltrated in the region of the left common fem oral artery. The artery was then cannulated with a micro access needle under ultrasound guidance and a guidewire was advanced into the iliac artery under fluoroscopic guidance. The needle was then removed and a m icrocatheter was placed. A Bentson wire was then passed into the infrarenal aorta under fluoroscopi c guidance followed by a short 5-Nepali sheath over the wire. An angiogram was performed at this po int to evaluate the left common iliac artery as there was some challenge with the Bentson wire and w e had to use a Glidewire in order to pass our Omniflush catheter into the infrarenal aorta. At this point, the sheath was then appropriately flushed with heparinized saline solution. Omniflush donald ter was placed in the suprarenal aorta and an aortogram and imaging of the iliac arteries was perfor med. Findings are noted above. At this point, using an Omni flush catheter, we used a Glidewire and accessed right common femoral a rtery in a third order selection. At this point, a right lower extremity angiogram was performed. Findings are noted as above. It was determined to cross the total long segment occlusion of the fem oral artery and above knee popliteal artery, using a NaviCross guiding catheter and Glidewire. This was a bit challenging and will require a modifier as we were able to cross this significant occlusi on. Once this was established, we went ahead and used a 4 mm x 150 mm [place] balloon to predilate t his segment. Upon angiogram it was identified that the long segment occlusion, stenosis had recoile d, therefore, a Jetstream device was used in order to perform atherectomy of the femoral popliteal s egment. This was accomplished appropriately and stenting of the femoral popliteal region was perfor med using a 6 mm x 200 mm stent x2. Upon the completion of that, balloon angioplasty was performed to fully expand stents to its appropriate diameter. Upon the completion of that, the patient still did have disease and the at knee popliteal artery and the below knee popliteal artery with some vasospasm of the anterior tibial artery. We went ahead a nd performed balloon angioplasty of the at knee pop, below knee popliteal artery as this was appropr iately ballooned. Our angiogram still identified the patient having his stenosis in the proximal as pect of the anterior tibial artery. Therefore, we used a 3 mm x 220 mm [place] balloon over 0.014 wi re to dilate this segment. Balloon angioplasty was performed and a completion angiogram identified adequate perfusion to the lower leg. There is still some vasospasms, therefore the patient was give n nitro and verapamil. The patient tolerated this aspect of the procedure well. All needles, all c atheters and wires were removed. The sheath was then removed. An Angio-Seal closure device was dep loyed in the left common femoral artery. The patient tolerated procedure well and was taken to the postanesthesia care unit in stable condition. PLAN: Essentially, the patient has significant infrainguinal disease. His long segment total occlu ariel of the femoral popliteal segment was stented and atherectomy was performed. We will plan to st art the patient on Plavix 75 mg p.o. daily for a total of 90 days. We will have the patient follow up with us in about 1 week's time to evaluate his progress. Dictated By: CYNDI GARCIA/SIN Conf#: [id number] DID#: [id number]
== END 2016-12-22 22:00 | disposition home or self-care (01) ==
LOC: CCL 10:11 → SDS 10:11 → CCL 22:00
PROVIDERS: ATTEND Student in an Organized Health Care Education/Training Program
DX: I70.269 Atherosclerosis of native arteries of extremities with gangrene, unspecified extremity (principal); I12.0 Hypertensive chronic kidney disease with stage 5 chronic kidney disease or end stage renal disease; N18.6 End stage renal disease; Z99.2 Dependence on renal dialysis
CPT/HCPCS: 37227; 75630; 82962; 84132; C1725; C1760; C1769; C1875; C1894; J0360; J0690; J2250; J2270; J3010; Q9967; Z7610; C1714; C1887; J1644

== ENCOUNTER 2017-03-03 11:19 | Outpatient (CLI) | payer OTHER ==
[~2017-03-03] VITALS: Ht 162.6 cm; Wt 52.0 kg
[~2017-03-03 11:19] MED LIST changes: -ALBU18HF INH; -AMIK500I IM; -AMLO-147 PO; -APIX5TAB PO; +ATOR10TA65 PO; -CATTTS1 TRANSDERM; -DAPT500V IV; +GLIP5TAB13 PO; -HYDR-906 PO; -METR-111 PO; +OXYC-279 PO
[2017-03-03 11:38] VITALS: BP 80/50; PULSE 84; RESP 18; Ht 162.6 cm; Wt 52.0 kg
--- NOTE | 2017-03-03 12:15 | PN ---
Date/Time of Note Date/Time of Note DATE: 03/03/17 TIME: 12:09 Outpatient Progress Note Chief Complaint Hypotension/ASHD/diabetes/renal failure/hypertension/hyperlipidemia HPI Hypotension/patient has hypotension, no nausea vomiting, patient had dialysis yesterday, no headache or dizziness or lightheadedness, no chest pain, ASHD/no chest pain, no PND orthopnea, Diabetes/no polydipsia poly-hypoglycemia, patient has left leg below knee amputation, and patient has right leg first second toe gangrene, dry in nature, painful, Hypertension/no headache or dizziness, on blood pressure medication, patient blood pressure slightly low today, Hyperlipidemia/no xanthoma, on medication, Chronic renal failure/no nausea vomiting or pruritus, on hemodialysis, Review of Systems Const: No Fever, no chills, no Wt. loss, no Fatigue, normal appetite, no diaphoresis. Eyes: No pain, no discharge, no redness, no visual change, no foreign body. ENT: No pain, no bleeding, no congestion, no sore throat, no dysphagia, no discharge or rhinitis. Lymph: No adenopathy, no tender nodes, no lymphedema. Resp: No SOB, no cough, no sputum, no wheezing, no chest pain. CV: No chest pain, no palpitaions, no MALDONADO, no PND, no edema. GI: Normal appetite, no pain, no nausea, no vomiting, no diarrhea, no blood, no constipation. : No frequency, no urgency, no dysuria, no hematuria, no flank pain, no discharge, no bleeding. Musc: Right leg and foot pain, and has dry gangrene first and second toe, no back pain, no neck pain, no knee pain, no restricted ROM. Skin: No rash, no skin lesions, no erythema, no laceration, no bruising, no pruritus. Neuro: No MONDRAGON, no dizziness, no syncope, no seizure, no focal-weakness. Endo: No polyuria, no polydypsia, no dry-skin, no temp-intolerance. Psych: No hallucinations, no depression, no anxiety, no suicidal ideation. Ext: No edema, no pain, no ulcer, no weakness. Right leg first and second toe gangrene, dry in nature, Patient also has amputation of left leg below knee, Physical Exam Vital Signs Date Time Temp Pulse Resp B/P Pulse Ox O2 Delivery O2 Flow Rate FiO2 8/3/17 11:38 98.5 84 18 80/50 100 Room Air General Appearance: A 66 year-old male who appears well-developed, well- nourished, in no acute distress. HEENT: Head normocephalic, atraumatic. Pupils equal, round, reactive to light and accommodate. Sclerae are no jaundice. Nasal turbinates pink without erythema or nasal discharge. Mucous membranes pink and moist without lesions. Oropharynx clear without any exudate or discharge. NECK: Supple. Trachea midline, No thyromegaly, No cervical lymphadenopathy, No mass, No carotid bruits, No JVD, Carotid pulses 2+ bilaterally. PULMONARY: Clear to auscultaion bilaterally, No retractions, Chest expansion symmetric bilaterally, no rales, no ronchi, no dulness on percussion. CARDIAC: Normal SI and S2, Regular rate and rythm, no murmur, gallop, or rub. GASTROINTESTINAL: Abdomen is soft, non-tender, Non Rigid, No distention, Positive bowel sounds x4 quadrants, Liver normal. SKIN: Warm, dry, no rash, no bruise, no echmosis. EXTREMITIES: Bilateral lower extremities normal, no edema, no phlabitus, pulse palpable, no contracture. Left below knee amputation and right leg first and second toe dry gangrene, painful, no infection, MUSCULOSKELETAL: Spine Normal, Non-tender, Normal range of motion, No swelling, no deformity, no clubbing, or cyanosis, the patient has no edema to bilateral lower extremities, dorsalis pedis pulses palpable bilaterally. NEUROLOGIC: The patient is awake, alert, oriented, responding to yes/no questions appropriately, moving all extremities, cranial nerve intact, normal strenght, normal power, normal coordination, normal gait. Allergies Coded Allergies: vancomycin (Verified Allergy, Intermediate, rash, 12/22/16) PMH No change Social Hx No change Family Hx No change Patient History: Endocrine and metabolic disease Hypertension Assessment/Plan Impression Hypotension ASHD Diabetes Chronic renal failure Hypertension Hyperlipidemia Plan Patient education done about diabetes hypertension hypotension renal failure and hyperlipidemia, Patient is very high risk for repeated admission, patient high risk for sepsis and , patient high risk for cardiac arrest, Patient also needs amputation of the first and second toe, patient has dry gangrene, painful, no infection, Patient encouraged to follow with primary care physician and vascular surgery, Patient blood pressure slightly low today, patient family told that before patient get a blood pressure medication check the blood pressure and hold off the blood pressure medication if the blood pressure is below 100, Patient encouraged to follow with the primary care physician, Medications Home Meds Active Scripts Benazepril Hcl* (Benazepril Hcl*) 20 Mg Tablet, 20 MG PO BID, #60 TAB 3 Refills Prov:GETELIJAH 11/21/16 Famotidine* (Famotidine*) 20 Mg Tablet, 20 MG PO DAILY, #30 TAB Prov:OZZIE HERRERA MD 11/10/16 Docusate Sodium (Dok) 100 Mg Capsule, 100 MG PO DAILY, #30 CAP Prov:OZZIE HERRERA MD 11/10/16 Aspirin* (Aspirin* EC) 81 Mg Tablet.dr, 81 MG PO DAILY, #30 Prov:OZZIE HERRERA MD 11/10/16 Nitroglycerin* (Nitrostat*) 0.4 Mg Tab.subl, 1 TAB SL Q5M Y for CHEST PAIN, #60 Prov:OZZIE HERRERA MD 11/10/16 Metoprolol Tartrate* (Lopressor*) 25 Mg Tab, 25 MG PO BID, #60 TAB Prov:OZZIE HERRERA MD 11/10/16 Reported Medications Glipizide* (Glipizide*) 5 Mg Tablet, 2.5 MG PO AC BREAKFAST, TAB 12/22/16 Oxycodone HCl/Acetaminophen (Percocet 5-325 mg Tablet) 1 Each Tablet, 1 EACH PO Q6 Y for PAIN, TAB 12/22/16 Atorvastatin Calcium (Atorvastatin Calcium) 10 Mg Tablet, 10 MG PO QHS, #30 TAB 12/22/16 Discontinued Reported Medications Metronidazole* (Flagyl*) 250 Mg Tablet, 250 MG PO TID, TAB 12/22/16 PRATIMA MERRITT MD Mar 03, 2017 12:15
== END 2017-03-03 17:00 | disposition home or self-care (01) ==
LOC: DCC 11:19 → EDBD 11:45 → DCC 17:00
PROVIDERS: ATTEND Internal Medicine
DX: E11.9 Type 2 diabetes mellitus without complications (principal); I95.9 Hypotension, unspecified; E78.5 Hyperlipidemia, unspecified; N18.9 Chronic kidney disease, unspecified; I25.10 Atherosclerotic heart disease of native coronary artery without angina pectoris

== ENCOUNTER 2017-03-18 17:05 | Inpatient (IN) | payer OTHER ==
[~2017-03-18] VITALS: Ht 167.6 cm; Wt 55.7 kg
[~2017-03-18 17:05] MED LIST changes: +ALBU18HF INH; +AMIK500I IM; +AMLO-147 PO; +APIX5TAB PO; +B CO1CAP11 PO; +BENA10TA48 PO; +CATTTS1 TRANSDERM; +CLON1PAT2 TD; +CLOP75TA27 PO; +DAPT500V IV; +HYDR-906 PO; +METR-111 PO; +OMEP40CA6 PO; +SEVE800T10 PO
[2017-03-18] MEDS ORDERED: ALTEPLASE (CATHFLO) 2 MG INJ CATHETER PRN (18:00)
--- NOTE | 2017-03-18 18:06 | ERA ---
ER Documentation Chief Complaint Date/Time DATE: 03/18/17 TIME: 17:58 Chief Complaint CLOGGED RIGHT FEMORAL DIALYSIS CATH, SENT PER DIALYSIS CENTER HPI This is a 66-year-old male with a past medical history of hypertension, hyperlipidemia, diabetes, end-stage renal disease on hemodialysis Tuesday, Tuesday, Tuesday, diabetic lower extremity ulcerations with previous infections requiring an above-knee amputation of the left leg and necrosis of multiple toes of the right leg that will require amputation eventually, who is presenting with report of a clogged dialysis catheter. The patient was at dialysis today when the machine started to alarm. The patient had about an hour of dialysis when it was determined that his port had clogged. He was transferred here from the dialysis unit for further evaluation and management. The patient feels completely at his baseline. The patient feels well. He is not dizzy presently. He does endorse occasional dizziness after dialysis when he has had transiently decreased blood pressures. This is not the case at this time. He denies a headache or vision changes. He denies any nausea or vomiting. He has no chest pain or trouble breathing. He has mild abdominal discomfort that is chronic for him, waxing and waning. The patient has good sensation and strength in his right leg and upper extremities. ROS All systems reviewed and are negative except as per history of present illness. Medications Home Meds Reported Medications Metoprolol Tartrate* (Lopressor*) 25 Mg Tab, 25 MG PO DAILY, #60 TAB 03/18/17 Bicarbonate Dialysis Soln No.2 (Prismasol) Unknown Strength Solution, 5000 ML HE TID 03/18/17 Multivit/Ca Carb/B Cmplx/Fa* ([place]-Cherelle*) 1 Tab Tab, 1 TAB PO DAILY, TAB 03/18/17 Benazepril Hcl* (Benazepril Hcl*) 20 Mg Tablet, 20 MG PO DAILY, #30 TAB 02/22/17 Sevelamer Hcl* (Renagel*) 800 Mg Tablet, 1600 MG PO WITH MEALS, TAB 02/17/17 Aspirin (Low Dose Aspirin) 81 Mg Tablet., 81 MG PO DAILY, #30 TAB 02/17/17 Omeprazole* (Omeprazole*) 40 Mg Capsule., 40 MG PO DAILY, #30 CAP 02/17/17 Discontinued Reported Medications [Bicarbonate] No Conflict Check, 1 TAB PO TID 03/18/17 Clopidogrel Bisulfate (Clopidogrel) 75 Mg Tablet, 75 MG PO DAILY, #30 TAB 02/22/17 B Complex & C No.20/Folic Acid (Virt-Caps Softgel) 1 Mg Capsule, 1 MG PO, CAP 02/17/17 Amlodipine Besylate* (Amlodipine Besylate*) 10 Mg Tablet, 10 MG PO DAILY, #30 TAB 02/17/17 Metoprolol Tartrate* (Lopressor*) 25 Mg Tab, 25 MG PO BID, #60 TAB 02/17/17 Clonidine Patch (CLONIDINE PATCH) 0.2 Mg/24 Hr Patch, 1 PATCH.WK TD Q7D, #4 PATCH.WK 02/17/17 Hydrocodone/Acetaminophen ([place] 5-325 Tablet) 1 Each Tablet, 1 EACH PO Q6 for PAIN LEVEL 6-10, TAB 02/17/17 Allergies Allergies: Coded Allergies: vancomycin (Verified Allergy, Unknown, 03/18/17) PMhx/Soc History of Surgery: Yes (Left AKA) Anesthesia Reaction: No Hx Neurological Disorder: No Hx Respiratory Disorders: No Hx Cardiac Disorders: Yes (HTN, HLD) Hx Psychiatric Problems: No Hx Miscellaneous Medical Probl: No Hx Alcohol Use: No Hx Substance Use: No Hx Tobacco Use: No FmHx Family History: diabetes Physical Exam Vitals Vital Signs Date Time Temp Pulse Resp B/P Pulse Ox O2 Delivery O2 Flow Rate FiO2 03/18/17 17:08 99.7 78 18 132/62 98 Physical Exam Const: No apparent distress Head: Atraumatic Eyes: Normal Conjunctiva ENT: Normal External Ears, Nose and Mouth. Neck: Full range of motion..~ No meningismus. Resp: Clear to auscultation bilaterally Cardio: Regular rate and rhythm, no murmurs Abd: Soft, non tender, non distended. Normal bowel sounds Skin: No petechiae or rashes, no erythema or induration or purulence or erythema around the left femoral catheter site Back: No midline or flank tenderness Ext: Left-sided AKA, stump is intact. Necrosis of multiple digits to his right foot, but no edema or erythema or induration or purulence or signs of infection Neur: Awake and alert, sensation intact in extremities that are present. Strength is 5/5 in right lower extremity and bilateral upper extremities Psych: Normal Mood and Affect Result Diagram: 03/18/17 1750 03/18/17 1750 Results 24 hrs Laboratory Tests Test 03/18/17 17:50 White Blood Count 13.110^3/ul Red Blood Count 3.4310^6/ul Hemoglobin 11.4g/dl Hematocrit 36.0% Mean Corpuscular Volume 105.0fl Mean Corpuscular Hemoglobin 33.2pg Mean Corpuscular Hemoglobin Concent 31.7g/dl Red Cell Distribution Width 18.0% Platelet Count 91405^3/UL Mean Platelet Volume 10.7fl Neutrophils % 69.3% Lymphocytes % 15.2% Monocytes % 11.6% Eosinophils % 2.4% Basophils % 0.5% Nucleated Red Blood Cells % 0.0/100WBC Neutrophils # (Manual) 910^3/ul Lymphocytes # 2.010^3/ul Monocytes # 1.510^3/ul Eosinophils # 0.310^3/ul Basophils # 0.110^3/ul Nucleated Red Blood Cells # 0.010^3/ul Sodium Level 136mmol/L Potassium Level 5.5mmol/L Chloride Level 93mmol/L Carbon Dioxide Level 24mmol/L Anion Gap 25 Blood Urea Nitrogen 78mg/dl Creatinine 8.17mg/dl Glucose Level 166mg/dl Calcium Level 9.5mg/dl Current Medications Medications (Trade) Dose Ordered Sig/Familia Route PRN Reason Start Time Stop Time Status Last Admin Dose Admin Alteplase, Recombinant (Cathflo (Activase)) 2 mg MAY REPEAT X1 PRN CATHETER IF CATHETER REMAINS OCCULUDED 03/18/17 18:00 Procedures/MDM The patient presents with complication of his left femoral Vas-Cath. He had no other complaints. Blood work was obtained and reviewed. The patient does have leukocytosis with a white count of 13.1. However, he does not appear systemically ill. I do not intend to start antibiotics at this time. He does have mild anemia that does not need to be emergently treated. The patient's creatinine is significantly elevated at 8.17, his electrolytes are not significantly outside of normal. While he does not require emergent dialysis, he will require replacement of his Vas-Cath and dialysis on the hospital. The patient's surgeon was called to discuss the case. The patient is scheduled to have an AV fistula placed next week. Surgeon requests that he be admitted to the hospital for replacement of his Vas-Cath and dialysis with the plan to place the Vas-Cath while he is in the hospital. The patient will be admitted to the hospital team for further evaluation and management as his surgeons manage his dialysis access and plan for AV fistula placement. Departure Diagnosis: Primary Impression: Complication of vascular access for dialysis Qualified Code: T82.9XXA - Complication of vascular access for dialysis, initial encounter Additional Impressions: Leukocytosis Qualified Code: D72.829 - Leukocytosis, unspecified type ESRD (end stage renal disease) Condition: Serious VERA MCKEON MD Mar 18, 2017 18:06
[2017-03-18] MEDS ORDERED: NEPH PO (18:09)
[2017-03-18] MEDS ORDERED: [UNRECOGNIZED DRUG - OTHER] PO (18:13)
[2017-03-18] MEDS ORDERED: [UNRECOGNIZED DRUG - CODE] HE (18:15)
[2017-03-18 18:17] LABS: ABNORMAL IP MESSAGE 1; BASOPHIL # 0.1 10^3/ul (0.0-0.1); BASOPHILS % 0.5 % (0.0-2.0); EOSINOPHILS # 0.3 10^3/ul (0.0-0.5); EOSINOPHILS % 2.4 % (0.0-7.0); HEMOGLOBIN 11.4 g/dl (14.0-18.0); LYMPHOCYTES % 15.2 % (15.0-51.0); MEAN CORPUSCULAR HEMOGLOBIN 33.2 pg (29.0-33.0); MEAN CORPUSCULAR HGB CONC 31.7 g/dl (32.0-37.0); MEAN PLATELET VOLUME 10.7 fl (7.4-10.4); MONOCYTE # 1.5 10^3/ul (0.3-0.9); MONOCYTES % 11.6 % (0.0-11.0); NEUTROPHILS % 69.3 % (39.0-77.0); PLATELET COUNT 254 10^3/UL (140-415); POSITIVE DIFF @See below; RED BLOOD COUNT 3.43 10^6/ul (4.70-6.10); WHITE BLOOD COUNT 13.1 10^3/ul (4.8-10.8)
[2017-03-18] MEDS ORDERED: METO-448 PO (18:18)
[2017-03-18 18:48] LABS: CALCIUM 9.5 mg/dl (8.4-10.2); CREATININE 8.17 mg/dl (0.61-1.24); POTASSIUM 5.5 mmol/L (3.5-5.1)
[2017-03-18] MEDS ORDERED: ONDANSETRON 4 MG INJ IV PRN ×2 (20:30→23:30)
[2017-03-18] MEDS ORDERED: ACETAMINOPHEN 325 MG TAB PO PRN ×2 (20:30→23:30)
[2017-03-18 22:35] VITALS: BP 159/70; PULSE 70; RESP 18
[2017-03-18 22:47] VITALS: Ht 167.6 cm; Wt 55.7 kg
[2017-03-18] MEDS ORDERED: NA POLYST SULFON 15 GM/60 ML BTL PO ONE (23:30)
[2017-03-19] MEDS: ACCU-CHEK XX SCH ×4 (00:10→20:35)
[2017-03-19] MEDS ORDERED: DEXTROSE 50% 50 ML SYRINGE IV PRN ×2 (00:30)
[2017-03-19] MEDS ORDERED: GLUCOSE GEL 15 GRAM TUBE PO PRN ×2 (00:30)
[2017-03-19] MEDS ORDERED: GLUCOSE GEL 15 GRAM TUBE BUCCAL PRN (00:30)
[2017-03-19] MEDS ORDERED: GLUCAGON 1 MG INJ IM PRN (00:30)
[2017-03-19 02:00] VITALS: BP 116/57; RESP 19
[2017-03-19] MEDS: PANTOPRAZOLE (EC) 40 MG TAB PO SCH (05:21)
--- NOTE | 2017-03-19 05:28 | HP ---
Date/Time of Note Date/Time of Note DATE: 03/19/17 TIME: 05:20 Assessment/Plan VTE Prophylaxis VTE Prophylaxis Intervention: SCD's Lines/Catheters IV [facility]atheter Type (from [facility] [place] [facility] Urinary Cath still in place: No Assessment/Plan Assessment/Plan 1. Dialysis catheter malfunction -Vascular surgery evaluation in the morning 2. ESRD on HD: Patient was only dialyzed for 1 hour before presentation to the ER. -Once dialysis catheter is replaced, he will be dialyzed 3. Hypokalemia: 5.5 -We will give Kayexalate for now. 4. Hypertension: Blood pressure within goal -Continue anti-hypertensives with adjustment as needed. 5. Type 2 Diabetes -Insulin while in-house 6. Leukocytosis -If the patient is able to provide a urine sample, we will send UA and urine culture -If persists, will do a full infectious workup but monitor for now 7. Anemia, likely of chronic disease -Monitor H&H and transfuse as needed HPI/ROS Admit Date/Time Admit Date/Time Mar 18, 2017 at 20:19 Hx of Present Illness This is a 66-year-old male with a history of hypertension, type 2 diabetes, end- stage renal disease on dialysis who was sent from dialysis center for catheter malfunction. 1 hour into dialysis, it was found that the dialysis catheter was clogged and as such he was sent to the ER for evaluation. When he presented to the ER he had a temperature of 98.7 otherwise his vitals are stable. Labs shows WBC of 13.1, hemoglobin 11.4, creatinine 8.17, BUN 78 and a creatinine of 5.5. PMH/Family/Social Past Medical History Medical History: diabetes, hypertension, renal disease Past Surgical History Past Surgical Hx: other (Dialysis catheter) Social History Alcohol Use: occasionally Smoking Status: Former smoker Drug Use: none Exam/Review of Systems Vital Signs Vitals Vital Signs Date Time Temp Pulse Resp B/P Pulse Ox O2 Delivery O2 Flow Rate FiO2 03/19/17 02:00 98.3 76 19 116/57 96 03/18/17 22:35 Room Air Exam Constitutional: alert, oriented, well developed Head: atraumatic, normocephalic Eyes: EOMI, PERRL Respiratory: clear to auscultation, normal air movement Cardiovascular: nl pulses, regular rate and rhythm Gastrointestinal: non-tender, soft Extremities: normal pulses Labs Result Diagram: 03/18/17 17503/18/17 175 Medications Medications Current Medications Aspirin (Halfprin) 81 mg DAILY PO ; Start 03/19/17 at 09:00 Benazepril HCl (Lotensin) 20 mg DAILY PO ; Start 03/19/17 at 09:00 Metoprolol Tartrate (Lopressor) 25 mg DAILY PO ; Start 03/19/17 at 09:00 Multivit/Ca Carb/ B Cmplx/FA/Prenat ([place]yenne-Cherelle) 1 tab DAILY PO ; Start 03/19/17 at 09:00 Morphine Sulfate (morphine) 2 mg Q4H PRN IV PAIN; Start 03/18/17 at 23:30 Acetaminophen (Tylenol Tab) 650 mg Q6H PRN PO PAIN AND OR ELEVATED TEMP; Start 03/18/17 at 23:30 Ondansetron HCl (Zofran Inj) 4 mg Q6H PRN IV NAUSEA AND/OR VOMITING; Start at 23:30 Diagnostic Test (Pha) (Accu-Chek) 1 ea 02 XX ; Start 03/19/17 at 02:00 Diagnostic Test (Pha) (Accu-Chek) 1 ea 02 XX ; Start 03/19/17 at 02:00 Pantoprazole (Protonix Tab) 40 mg DAILY@06 PO ; Start 03/19/17 at 06:00 Miscellaneous Information 1 ea NOTE XX ; Start 03/19/17 at 00:30 Glucose (Glutose) 15 gm Q15M PRN PO DECREASED GLUCOSE; Start 03/19/17 at 00:30 Glucose (Glutose) 22.5 gm Q15M PRN PO DECREASED GLUCOSE; Start 03/19/17 at 00: 30 Dextrose (D50w Syringe) 25 ml Q15M PRN IV DECREASED GLUCOSE; Start 03/19/17 at 00:30 Dextrose (D50w Syringe) 50 ml Q15M PRN IV DECREASED GLUCOSE; Start 03/19/17 at 00:30 Glucagon (Glucagen) 1 mg Q15M PRN IM DECREASED GLUCOSE; Start 03/19/17 at 00:30 Glucose (Glutose) 15 gm Q15M PRN BUCCAL DECREASED GLUCOSE; Start 03/19/17 at 00 :30 ROLANDO COLLAZO MD Mar 19, 2017 05:27
[2017-03-19 06:38] LABS: BASOPHIL # 0.1 10^3/ul (0.0-0.1); BASOPHILS % 0.6 % (0.0-2.0); EOSINOPHILS # 0.4 10^3/ul (0.0-0.5); HEMOGLOBIN 10.6 g/dl (14.0-18.0); LYMPHOCYTES # 2.7 10^3/ul (0.8-2.9); LYMPHOCYTES % 23.2 % (15.0-51.0); MEAN CORPUSCULAR HEMOGLOBIN 33.8 pg (29.0-33.0); MEAN CORPUSCULAR HGB CONC 32.1 g/dl (32.0-37.0); MEAN CORPUSCULAR VOLUME 105.1 fl (82.0-101.0); MEAN PLATELET VOLUME 11.1 fl (7.4-10.4); MONOCYTE # 1.4 10^3/ul (0.3-0.9); MONOCYTES % 12.1 % (0.0-11.0); NEUTROPHILS % 60.3 % (39.0-77.0); PLATELET COUNT 238 10^3/UL (140-415); RED BLOOD COUNT 3.14 10^6/ul (4.70-6.10); RED CELL DISTRIBUTION WIDTH 18.1 % (11.5-14.5); WHITE BLOOD COUNT 11.7 10^3/ul (4.8-10.8)
[2017-03-19 07:09] LABS: ALBUMIN 3.6 g/dl (3.3-4.9); ALBUMIN/GLOBULIN RATIO 1.09; CALCIUM 8.9 mg/dl (8.4-10.2); MAGNESIUM 2.7 mg/dl (1.7-2.5); PHOSPHORUS 3.4 mg/dl (2.5-4.9); POTASSIUM 5.3 mmol/L (3.5-5.1); TOTAL PROTEIN 6.9 g/dl (6.1-8.1)
[2017-03-19 07:17] LABS: CREATININE 8.96 mg/dl (0.61-1.24)
[2017-03-19] MEDS: INSULIN ASPART [NOVOLOG] 3 ML PEN SC SCH ×4 (08:00→20:32)
[2017-03-19] MEDS: SEVELAMER 800 MG TAB PO SCH ×3 (08:01→16:45)
[2017-03-19 08:05] VITALS: BP 118/56; RESP 18
[2017-03-19] MEDS ORDERED: NON-FORMULARY/PATIENT OWN MED (Omeprazole* 40 MG) PO SCH (09:00)
[2017-03-19] MEDS: MULTIVIT/CA CARB/B CMPLX/FA TAB PO SCH (09:17)
[2017-03-19] MEDS: ASPIRIN (EC) 81 MG TAB PO SCH (09:17)
[2017-03-19] MEDS: BENAZEPRIL 20 MG TAB PO SCH (09:17)
[2017-03-19] MEDS: METOPROLOL 25 MG TAB PO SCH (09:18)
[2017-03-19] MEDS: morphine 2 MG INJ IV PRN ×3 (09:20→23:05)
--- NOTE | 2017-03-19 11:38 | PN ---
Date/Time of Note Date/Time of Note ERROR NOTE Assessment/Plan VTE Prophylaxis VTE Prophylaxis Intervention: other Lines/Catheters IV Catheter Type (from Nrs): HD access Urinary Cath still in place: No Exam/Review of Systems Vital Signs Vitals Vital Signs Date Time Temp Pulse Resp B/P Pulse Ox O2 Delivery O2 Flow Rate FiO2 03/19/17 08:05 98.7 73 18 118/56 99 03/18/17 22:35 Room Air Intake and Output 03/18/17 03/18/17 03/19/17 15:00 23:00 07:00 Intake Total 350 ml Balance 350 ml Results Result Diagram: 03/19/17 0513 03/19/17 0513 Results 24 hrs Laboratory Tests Test 03/18/17 17:50 03/18/17 23:14 03/19/17 05:13 03/19/17 08:00 White Blood Count 13.1 H 11.7 H Red Blood Count 3.43 L 3.14 L Hemoglobin 11.4 L 10.6 L Hematocrit 36.0 L 33.0 L Mean Corpuscular Volume 105.0 H 105.1 H Mean Corpuscular Hemoglobin 33.2 H 33.8 H Mean Corpuscular Hemoglobin Concent 31.7 L 32.1 Red Cell Distribution Width 18.0 H 18.1 H Platelet Count 254 238 Mean Platelet Volume 10.7 H 11.1 H Neutrophils % 69.3 60.3 Lymphocytes % 15.2 23.2 Monocytes % 11.6 H 12.1 H Eosinophils % 2.4 3.0 Basophils % 0.5 0.6 Nucleated Red Blood Cells % 0.0 0.0 Neutrophils # (Manual) 9 H 7 Lymphocytes # 2.0 2.7 Monocytes # 1.5 H 1.4 H Eosinophils # 0.3 0.4 Basophils # 0.1 0.1 Nucleated Red Blood Cells # 0.0 0.0 Sodium Level 136 136 Potassium Level 5.5 H 5.3 H Chloride Level 93 L 100 Carbon Dioxide Level 24 20 L Anion Gap 25 H 21 H Blood Urea Nitrogen 78 H 96 H Creatinine 8.17 H 8.96 H Glucose Level 166 111 # Calcium Level 9.5 8.9 Bedside Glucose 103 95 Hemoglobin A1c 5.3 Phosphorus Level 3.4 Magnesium Level 2.7 H Total Bilirubin 0.0 L Direct Bilirubin 0.00 Indirect Bilirubin 0.0 Aspartate Amino Transf (AST/SGOT) 15 Alanine Aminotransferase (ALT/SGPT) 22 Alkaline Phosphatase 156 H Total Protein 6.9 Albumin 3.6 Globulin 3.30 H Albumin/Globulin Ratio 1.09 Medications Medications Current Medications Aspirin (Halfprin) 81 mg DAILY PO Last administered on 03/19/17 09:17; Admin Dose 81 MG; Start 03/19/17 at 09:00 Benazepril HCl (Lotensin) 20 mg DAILY PO Last administered on 03/19/17 09:17; Admin Dose 20 MG; Start 03/19/17 at 09:00 Metoprolol Tartrate (Lopressor) 25 mg DAILY PO Last administered on 03/19/17 09:18; Admin Dose 25 MG; Start 03/19/17 at 09:00 Multivit/Ca Carb/ B Cmplx/FA/Prenat (Cheyenne-Cherelle) 1 tab DAILY PO Last administered on 03/19/17 09:17; Admin Dose 1 TAB; Start 03/19/17 at 09:00 Morphine Sulfate (morphine) 2 mg Q4H PRN IV PAIN Last administered on 09:20; Admin Dose 2 MG; Start 03/18/17 at 23:30 Acetaminophen (Tylenol Tab) 650 mg Q6H PRN PO PAIN AND OR ELEVATED TEMP; Start 03/18/17 at 23:30 Ondansetron HCl (Zofran Inj) 4 mg Q6H PRN IV NAUSEA AND/OR VOMITING; Start at 23:30 Diagnostic Test (Pha) (Accu-Chek) 1 ea 02 XX ; Start 03/19/17 at 02:00 Diagnostic Test (Pha) (Accu-Chek) 1 ea 02 XX ; Start 03/19/17 at 02:00 Pantoprazole (Protonix Tab) 40 mg DAILY@06 PO Last administered on 03/19/17 05 :21; Admin Dose 40 MG; Start 03/19/17 at 06:00 Miscellaneous Information 1 ea NOTE XX ; Start 03/19/17 at 00:30 Glucose (Glutose) 15 gm Q15M PRN PO DECREASED GLUCOSE; Start 03/19/17 at 00:30 Glucose (Glutose) 22.5 gm Q15M PRN PO DECREASED GLUCOSE; Start 03/19/17 at 00: 30 Dextrose (D50w Syringe) 25 ml Q15M PRN IV DECREASED GLUCOSE; Start 03/19/17 at 00:30 Dextrose (D50w Syringe) 50 ml Q15M PRN IV DECREASED GLUCOSE; Start 03/19/17 at 00:30 Glucagon (Glucagen) 1 mg Q15M PRN IM DECREASED GLUCOSE; Start 03/19/17 at 00:30 Glucose (Glutose) 15 gm Q15M PRN BUCCAL DECREASED GLUCOSE; Start 03/19/17 at 00 :30 GERHARD ALVES Mar 19, 2017 11:38
--- NOTE | 2017-03-19 12:52 | PN ---
Date/Time of Note Date/Time of Note DATE: 03/19/17 TIME: 12:42 Assessment/Plan VTE Prophylaxis VTE Prophylaxis Intervention: SCD's Lines/Catheters [facility] HD Access Urinary Cath still in place: No Assessment/Plan Chief Complaint/Hosp Course Impression and plan 1. Malfunctioning dialysis catheter. Vascular surgeon to follow the patient. Tentative plan for replacement. We will follow-up 2. End-stage renal disease. Will get quill cleaning machine operator to follow. 3. Hyper kalemia. Patient reportedly given Kayexalate. We will follow-up on level in a.m. Requisition Approver following 4. Essential hypertension. Continue antihypertensives and adjust needed 5. Anemia of chronic disease. H&H remained stable. Will monitor for now. 6. Right lower extremity necrotic toes. Will get podiatry to follow Disposition plan: Awaiting vascular surgeon follow. Will get quill cleaning machine operator consultation. Podiatry also consulted. Discussed plan of care with Dr. Monsalve Problems: Subjective 24 Hr Interval Summary Free Text/Dictation Denies any pain at this time. Appears comfortable at present. Exam/Review of Systems Vital Signs Vitals Vital Signs Date Time Temp Pulse Resp B/P Pulse Ox O2 Delivery O2 Flow Rate FiO2 03/19/17 08:05 98.7 73 18 118/56 99 03/18/17 22:35 Room Air Intake and Output 03/18/17 03/18/17 03/19/17 15:00 23:00 07:00 Intake Total 350 ml Balance 350 ml Exam Constitutional: alert, oriented Head: normocephalic Respiratory: normal air movement Cardiovascular: regular rate and rhythm Gastrointestinal: non-tender, soft Musculoskeletal: other (hx LLE amputation. right foot with necrotic toes ) Neurological: ADVISOR ADVOC[employer] FOUNDER II-XII intact, nl mental status, nl speech Results Result Diagram: 03/19/17 0513 03/19/17 0513 Results 24 hrs Laboratory Tests Test 03/18/17 17:50 03/18/17 23:14 03/19/17 05:13 03/19/17 08:00 White Blood Count 13.1 H 11.7 H Red Blood Count 3.43 L 3.14 L Hemoglobin 11.4 L 10.6 L Hematocrit 36.0 L 33.0 L Mean Corpuscular Volume 105.0 H 105.1 H Mean Corpuscular Hemoglobin 33.2 H 33.8 H Mean Corpuscular Hemoglobin Concent 31.7 L 32.1 Red Cell Distribution Width 18.0 H 18.1 H Platelet Count 254 238 Mean Platelet Volume 10.7 H 11.1 H Neutrophils % 69.3 60.3 Lymphocytes % 15.2 23.2 Monocytes % 11.6 H 12.1 H Eosinophils % 2.4 3.0 Basophils % 0.5 0.6 Nucleated Red Blood Cells % 0.0 0.0 Neutrophils # (Manual) 9 H 7 Lymphocytes # 2.0 2.7 Monocytes # 1.5 H 1.4 H Eosinophils # 0.3 0.4 Basophils # 0.1 0.1 Nucleated Red Blood Cells # 0.0 0.0 Sodium Level 136 136 Potassium Level 5.5 H 5.3 H Chloride Level 93 L 100 Carbon Dioxide Level 24 20 L Anion Gap 25 H 21 H Blood Urea Nitrogen 78 H 96 H Creatinine 8.17 H 8.96 H Glucose Level 166 111 # Calcium Level 9.5 8.9 Bedside Glucose 103 95 Hemoglobin A1c 5.3 Phosphorus Level 3.4 Magnesium Level 2.7 H Total Bilirubin 0.0 L Direct Bilirubin 0.00 Indirect Bilirubin 0.0 Aspartate Amino Transf (AST/SGOT) 15 Alanine Aminotransferase (ALT/SGPT) 22 Alkaline Phosphatase 156 H Total Protein 6.9 Albumin 3.6 Globulin 3.30 H Albumin/Globulin Ratio 1.09 Test 03/19/17 12:03 Bedside Glucose 103 Medications Medications Current Medications Aspirin (Halfprin) 81 mg DAILY PO Last administered on 03/19/17 09:17; Admin Dose 81 MG; Start 03/19/17 at 09:00 Benazepril HCl (Lotensin) 20 mg DAILY PO Last administered on 03/19/17 09:17; Admin Dose 20 MG; Start 03/19/17 at 09:00 Metoprolol Tartrate (Lopressor) 25 mg DAILY PO Last administered on 03/19/17 09:18; Admin Dose 25 MG; Start 03/19/17 at 09:00 Multivit/Ca Carb/ B Cmplx/FA/Prenat (Cheyenne-Cherelle) 1 tab DAILY PO Last administered on 03/19/17 09:17; Admin Dose 1 TAB; Start 03/19/17 at 09:00 Morphine Sulfate (morphine) 2 mg Q4H PRN IV PAIN Last administered on 09:20; Admin Dose 2 MG; Start 03/18/17 at 23:30 Acetaminophen (Tylenol Tab) 650 mg Q6H PRN PO PAIN AND OR ELEVATED TEMP; Start 03/18/17 at 23:30 Ondansetron HCl (Zofran Inj) 4 mg Q6H PRN IV NAUSEA AND/OR VOMITING; Start at 23:30 Diagnostic Test (Pha) (Accu-Chek) 1 ea 02 XX ; Start 03/19/17 at 02:00 Diagnostic Test (Pha) (Accu-Chek) 1 ea 02 XX ; Start 03/19/17 at 02:00 Pantoprazole (Protonix Tab) 40 mg DAILY@06 PO Last administered on 03/19/17 05 :21; Admin Dose 40 MG; Start 03/19/17 at 06:00 Miscellaneous Information 1 ea NOTE XX ; Start 03/19/17 at 00:30 Glucose (Glutose) 15 gm Q15M PRN PO DECREASED GLUCOSE; Start 03/19/17 at 00:30 Glucose (Glutose) 22.5 gm Q15M PRN PO DECREASED GLUCOSE; Start 03/19/17 at 00: 30 Dextrose (D50w Syringe) 25 ml Q15M PRN IV DECREASED GLUCOSE; Start 03/19/17 at 00:30 Dextrose (D50w Syringe) 50 ml Q15M PRN IV DECREASED GLUCOSE; Start 03/19/17 at 00:30 Glucagon (Glucagen) 1 mg Q15M PRN IM DECREASED GLUCOSE; Start 03/19/17 at 00:30 Glucose (Glutose) 15 gm Q15M PRN BUCCAL DECREASED GLUCOSE; Start 03/19/17 at 00 :30 GERHARD ALVES Mar 19, 2017 12:52
[2017-03-19] MEDS ORDERED: NA POLYST SULFON 15 GM/60 ML BTL PO ONE (13:30)
[2017-03-19 14:45] VITALS: BP 103/52; RESP 16
--- NOTE | 2017-03-19 19:06 | CONS ---
Date/Time of Note Date/Time of Note DATE: 03/19/17 TIME: 19:03 Assessment/Plan Assessment/Plan Additional Assessment/Plan 1. Dialysis catheter malfunction 2. acute hyperkalemia 3. ESRD on HD MWF 4. Accelerated HTN 5 . DM 6. HL Plan: pt received Kayexalate yesterday for hyperkalemia, still K 5.3- will give another kayexlate 15 gram PO X 1 dose today Vascular surgery to address HD catheter will plan for HD tomorrow after catheter replacement will follow up if BP runs high, Nurse instructed to call me Thanks for consultation, I will continue to follow up Consultation Date/Type/Reason Admit Date/Time Mar 18, 2017 at 20:19 Date of Consultation: Mar 19, 2017 Type of Consultation: NEPHROLOGY Reason for Consultation ESRD on HD with clotted catheter Referring Provider: ROLANDO COLLAZO MD Hx of Present Illness 66-year-old male with a history of hypertension, type 2 diabetes, end-stage renal disease on dialysis who was sent from dialysis center for catheter malfunction. 1 hour into dialysis, it was found that the dialysis catheter was clogged and as such he was sent to the ER for evaluation. When he presented to the ER he had a temperature of 98.7 otherwise his vitals are stable. Labs shows WBC of 13.1, hemoglobin 11.4, creatinine 8.17, BUN 78 and a creatinine of 5.5. pt only had a one hour of HD on tuesday- K 5.8 yesterday received kayexalate, today's K 5.3- no symptoms Past Medical History Medical History: diabetes, hypertension, renal disease Past Surgical History Past Surgical Hx: other (Dialysis catheter) Social History Alcohol Use: occasionally Smoking Status: Former smoker Drug Use: none Exam/Review of Systems Vital Signs Vitals Vital Signs Date Time Temp Pulse Resp B/P Pulse Ox O2 Delivery O2 Flow Rate FiO2 03/19/17 14:45 98.1 56 16 103/52 100 03/18/17 22:35 Room Air Intake and Output 03/18/17 03/18/17 03/19/17 15:00 23:00 07:00 Intake Total 350 ml Balance 350 ml Exam Constitutional: alert, oriented, well developed Head: atraumatic, normocephalic Eyes: EOMI, PERRL Respiratory: clear to auscultation, normal air movement Cardiovascular: nl pulses, regular rate and rhythm Gastrointestinal: non-tender, soft Extremities: normal pulses Results Result Diagram: 03/19/1751203/19/17 05 Results 24 hrs Laboratory Tests Test 03/18/17 23:14 03/19/17 05:13 03/19/17 08:00 03/19/17 12:03 Bedside Glucose 103 95 103 White Blood Count 11.7 H Red Blood Count 3.14 L Hemoglobin 10.6 L Hematocrit 33.0 L Mean Corpuscular Volume 105.1 H Mean Corpuscular Hemoglobin 33.8 H Mean Corpuscular Hemoglobin Concent 32.1 Red Cell Distribution Width 18.1 H Platelet Count 238 Mean Platelet Volume 11.1 H Neutrophils % 60.3 Lymphocytes % 23.2 Monocytes % 12.1 H Eosinophils % 3.0 Basophils % 0.6 Nucleated Red Blood Cells % 0.0 Neutrophils # (Manual) 7 Lymphocytes # 2.7 Monocytes # 1.4 H Eosinophils # 0.4 Basophils # 0.1 Nucleated Red Blood Cells # 0.0 Sodium Level 136 Potassium Level 5.3 H Chloride Level 100 Carbon Dioxide Level 20 L Anion Gap 21 H Blood Urea Nitrogen 96 H Creatinine 8.96 H Glucose Level 111 # Hemoglobin A1c 5.3 Calcium Level 8.9 Phosphorus Level 3.4 Magnesium Level 2.7 H Total Bilirubin 0.0 L Direct Bilirubin 0.00 Indirect Bilirubin 0.0 Aspartate Amino Transf (AST/SGOT) 15 Alanine Aminotransferase (ALT/SGPT) 22 Alkaline Phosphatase 156 H Total Protein 6.9 Albumin 3.6 Globulin 3.30 H Albumin/Globulin Ratio 1.09 Test 03/19/17 16:47 Bedside Glucose 99 Medications Medications Current Medications Aspirin (Halfprin) 81 mg DAILY PO Last administered on 03/19/17 09:17; Admin Dose 81 MG; Start 03/19/17 at 09:00 Benazepril HCl (Lotensin) 20 mg DAILY PO Last administered on 03/19/17 09:17; Admin Dose 20 MG; Start 03/19/17 at 09:00 Metoprolol Tartrate (Lopressor) 25 mg DAILY PO Last administered on 03/19/17 09:18; Admin Dose 25 MG; Start 03/19/17 at 09:00 Multivit/Ca Carb/ B Cmplx/FA/Prenat (Cheyenne-Cherelle) 1 tab DAILY PO Last administered on 03/19/17 09:17; Admin Dose 1 TAB; Start 03/19/17 at 09:00 Morphine Sulfate (morphine) 2 mg Q4H PRN IV PAIN Last administered on 13:52; Admin Dose 2 MG; Start 03/18/17 at 23:30 Acetaminophen (Tylenol Tab) 650 mg Q6H PRN PO PAIN AND OR ELEVATED TEMP; Start 03/18/17 at 23:30 Ondansetron HCl (Zofran Inj) 4 mg Q6H PRN IV NAUSEA AND/OR VOMITING; Start at 23:30 Diagnostic Test (Pha) (Accu-Chek) 1 ea 02 XX ; Start 03/19/17 at 02:00 Diagnostic Test (Pha) (Accu-Chek) 1 ea 02 XX ; Start 03/19/17 at 02:00 Pantoprazole (Protonix Tab) 40 mg DAILY@06 PO Last administered on 03/19/17 05 :21; Admin Dose 40 MG; Start 03/19/17 at 06:00 Miscellaneous Information 1 ea NOTE XX ; Start 03/19/17 at 00:30 Glucose (Glutose) 15 gm Q15M PRN PO DECREASED GLUCOSE; Start 03/19/17 at 00:30 Glucose (Glutose) 22.5 gm Q15M PRN PO DECREASED GLUCOSE; Start 03/19/17 at 00: 30 Dextrose (D50w Syringe) 25 ml Q15M PRN IV DECREASED GLUCOSE; Start 03/19/17 at 00:30 Dextrose (D50w Syringe) 50 ml Q15M PRN IV DECREASED GLUCOSE; Start 03/19/17 at 00:30 Glucagon (Glucagen) 1 mg Q15M PRN IM DECREASED GLUCOSE; Start 03/19/17 at 00:30 Glucose (Glutose) 15 gm Q15M PRN BUCCAL DECREASED GLUCOSE; Start 03/19/17 at 00 :30 Heparin Sodium (Porcine) (Heparin (5000 Units/0.5 ml)) 5,000 unit BID SC ; Start 03/19/17 at 21:00 LISA MERRITT MD Mar 19, 2017 19:06
[2017-03-19] MEDS: HEPARIN 5,000 UNIT/0.5 ML VIAL SC SCH (20:35)
[2017-03-19 20:53] VITALS: BP 105/51; RESP 18
[2017-03-19] MEDS ORDERED: MAGNESIUM HYDROXIDE 30ML CUP PO PRN (22:30)
[2017-03-19] MEDS ORDERED: MAGNESIUM HYDROXIDE 30ML CUP PO ONE (22:30)
[2017-03-19] MEDS ORDERED: SENNA TAB PO PRN (22:30)
[2017-03-19] MEDS ORDERED: SENNA TAB PO ONE (23:00)
[2017-03-20] VITALS (20 sets, daily range): BP systolic 98–149; BP diastolic 44–92; PULSE 61–71; RESP 16–28
[2017-03-20] MEDS ORDERED: DEXTROSE 5%-0.45% NACL 1,000 ML IV SCH
[2017-03-20] MEDS: PANTOPRAZOLE (EC) 40 MG TAB PO SCH (05:14)
[2017-03-20] MEDS ORDERED: GELATIN SIZE 100 SPONGE ONE (07:20)
[2017-03-20] MEDS ORDERED: LIDOCAINE 1% (STERILE-PAK) 30 ML INJ ONE (07:20)
[2017-03-20] MEDS ORDERED: THROMBIN 5000 UNIT VIAL ONE (07:21)
[2017-03-20] MEDS: SEVELAMER 800 MG TAB PO SCH ×3 (07:35→17:03)
--- NOTE | 2017-03-20 07:40 | HPN ---
Date/Time of Note Date/Time of Note DATE: 03/20/17 TIME: 07:39 Interval H&P Admission Note Pt. seen H&P reviewed: No system changes CYNDI CARR MD Mar 20, 2017 07:40
[2017-03-20] MEDS ORDERED: MIDAZOLAM 1 MG/ML 2 ML INJ ONE ×3 (07:45→08:07)
[2017-03-20] MEDS ORDERED: ROPIVACAINE 0.5 % 30 ML VIAL ONE (07:45)
[2017-03-20] MEDS ORDERED: FENTAnyl 50 MCG/ML VIAL ONE (07:46)
[2017-03-20] MEDS: INSULIN ASPART [NOVOLOG] 3 ML PEN SC SCH ×4 (08:00→20:21)
[2017-03-20] MEDS: HEPARIN 1000 UNITS/ML 10 ML INJ ONE ×2 (08:23→08:34)
[2017-03-20] MEDS ORDERED: HEPARIN 1000 UNITS/ML 10 ML INJ ONE (08:30)
[2017-03-20] MEDS: BENAZEPRIL 20 MG TAB PO SCH (09:00)
[2017-03-20] MEDS: HEPARIN 5,000 UNIT/0.5 ML VIAL SC SCH ×2 (09:00→20:30)
[2017-03-20] MEDS: ASPIRIN (EC) 81 MG TAB PO SCH (09:00)
[2017-03-20] MEDS: SENNA TAB PO SCH ×2 (09:00→20:29)
[2017-03-20] MEDS: MULTIVIT/CA CARB/B CMPLX/FA TAB PO SCH (09:00)
[2017-03-20] MEDS: METOPROLOL 25 MG TAB PO SCH (09:00)
--- NOTE | 2017-03-20 09:24 | PN ---
Date/Time of Note Date/Time of Note DATE: 03/20/17 TIME: 09:22 Assessment/Plan VTE Prophylaxis VTE Prophylaxis Intervention: heparin Lines/Catheters IV [facility] Peripheral IV Urinary Cath still in place: No Assessment/Plan Chief Complaint/Hosp Course Impression and plan 1. Malfunctioning dialysis catheter. Vascular surgeon is following the patient. Patient for dialysis catheter placement on March 20, 2017 2. End-stage renal disease. Radiochemical Technician following. Monitor electrolytes. Plan for dialysis per 3. Hyper kalemia. Provide with Kayexalate as needed. Tentative plan for dialysis. Continue with grapple crew leader recommended 4. Essential hypertension. Continue antihypertensives and adjust needed 5. Anemia of chronic disease. H&H remained stable. Will monitor for now. 6. Right lower extremity necrotic toes. Patient for follow-up with senior applications developer Disposition plan: Plan for dialysis catheter placement today. Follow-up postop. Tentative plan for dialysis after dialysis catheter replaced. Call made out to podiatry concerning right lower extremity necrotic toes. Discussed plan of care with Dr. Monsalve Problems: Subjective 24 Hr Interval Summary Free Text/Dictation Patient for dialysis catheter placement. Exam/Review of Systems Vital Signs Vitals Vital Signs Date Time Temp Pulse Resp B/P Pulse Ox O2 Delivery O2 Flow Rate FiO2 03/20/17 07:00 98.2 61 18 149/58 100 Room Air Intake and Output 03/19/17 03/19/17 03/20/17 15:00 23:00 07:00 Intake Total 570 ml 450 ml Output Total 30 ml Balance 570 ml 420 ml Exam Patient for dialysis catheter placement Results Result Diagram: 03/19/17 0513 03/19/17 0513 Results 24 hrs Laboratory Tests Test 03/19/17 12:03 03/19/17 16:47 03/19/17 20:31 03/20/17 06:53 Bedside Glucose 103 99 78 82 Medications Medications Current Medications Aspirin (Halfprin) 81 mg DAILY PO Last administered on 03/19/17 09:17; Admin Dose 81 MG; Start 03/19/17 at 09:00 Benazepril HCl (Lotensin) 20 mg DAILY PO Last administered on 03/19/17 09:17; Admin Dose 20 MG; Start 03/19/17 at 09:00 Metoprolol Tartrate (Lopressor) 25 mg DAILY PO Last administered on 03/19/17 09:18; Admin Dose 25 MG; Start 03/19/17 at 09:00 Multivit/Ca Carb/ B Cmplx/FA/Prenat (Cheyenne-Cherelle) 1 tab DAILY PO Last administered on 03/19/17 09:17; Admin Dose 1 TAB; Start 03/19/17 at 09:00 Morphine Sulfate (morphine) 2 mg Q4H PRN IV PAIN Last administered on 23:05; Admin Dose 2 MG; Start 03/18/17 at 23:30 Acetaminophen (Tylenol Tab) 650 mg Q6H PRN PO PAIN AND OR ELEVATED TEMP; Start 03/18/17 at 23:30 Ondansetron HCl (Zofran Inj) 4 mg Q6H PRN IV NAUSEA AND/OR VOMITING; Start at 23:30 Diagnostic Test (Pha) (Accu-Chek) 1 ea 02 XX ; Start 03/19/17 at 02:00 Diagnostic Test (Pha) (Accu-Chek) 1 ea 02 XX ; Start 03/19/17 at 02:00 Pantoprazole (Protonix Tab) 40 mg DAILY@06 PO Last administered on 03/19/17 05 :21; Admin Dose 40 MG; Start 03/19/17 at 06:00 Miscellaneous Information 1 ea NOTE XX ; Start 03/19/17 at 00:30 Glucose (Glutose) 15 gm Q15M PRN PO DECREASED GLUCOSE; Start 03/19/17 at 00:30 Glucose (Glutose) 22.5 gm Q15M PRN PO DECREASED GLUCOSE; Start 03/19/17 at 00: 30 Dextrose (D50w Syringe) 25 ml Q15M PRN IV DECREASED GLUCOSE; Start 03/19/17 at 00:30 Dextrose (D50w Syringe) 50 ml Q15M PRN IV DECREASED GLUCOSE; Start 03/19/17 at 00:30 Glucagon (Glucagen) 1 mg Q15M PRN IM DECREASED GLUCOSE; Start 03/19/17 at 00:30 Glucose (Glutose) 15 gm Q15M PRN BUCCAL DECREASED GLUCOSE; Start 03/19/17 at 00 :30 Heparin Sodium (Porcine) 5000 unit 5,000 unit BID SC Last administered on 20:35; Admin Dose 5,000 UNIT; Start 03/19/17 at 21:00 Dextrose/Sodium Chloride (D5-1/2ns) 1,000 ml @ 40 mls/hr Q24H IV Last administered on 03/20/17 00:24; Admin Dose 40 MLS/HR; Start 03/20/17 at 00:00 Magnesium Hydroxide (Milk Of Mag) 30 ml DAILY PRN PO CONSTIPATION; Start at 22:30 Senna (Senokot) 2 tab BID PO ; Start 03/20/17 at 09:00 GERHARD ALVES Mar 20, 2017 09:24
--- NOTE | 2017-03-20 09:51 | OPR ---
Date/Time of Note Date/Time of Note DATE: 03/20/17 TIME: 09:44 Operative Report Free Text/Dictation DATE OF OPERATION: 03/20/2017 SURGEON: Bradley Carr MD PREOPERATIVE DIAGNOSIS: ESRD POSTOPERATIVE DIAGNOSIS: SAME PROCEDURE: 1. Creation of a left arm brachiocephalic arteriovenous fistula. 2. Emergent exchange of right common femoral vein permanent hemodialysis catheter ANESTHESIA: Regional Block and Local COMPLICATIONS: None. ESTIMATED BLOOD LOSS: Minimal. TRANSFUSIONS: None SPECIMEN: None. INDICATIONS: This is a 66-year-old male with a history of ESRD and malfunctioning catheter. The risks and benefits of the procedure were discussed with the patient and not limited to , [place], pneumonia, stroke, infection, thrombosis of graft and arteriovenous fistula, nerve injury, limb loss, revisions of AVF, steal and she elected to undergo surgical intervention. DESCRIPTION: The patient was placed in supine position on the operating room table. The arms were placed at 80 degrees. The normal bony prominences were padded. The anesthesia team had placed the appropriate lines and anesthesia was induced. Time out performed and the appropriate site was marked and confirmed. The patient's upper extremity prepped and draped in the usual standard sterile fashion. Preoperative antibiotics were administered prior to the skin incision since the patient already had been on antibiotics. A 6 cm transverse skin incision was then performed below the antecubital fossa. The cephalic vein was identified and dissected for a segment of nearly 5 cm. Dissection was then carried as distally as possible through that incision. Attention was then directed to the brachial artery. The tendinous aponeurosis of the biceps muscle was then incised. Location of the brachial artery was then identified by palpation. The soft tissue over the brachial artery was then incised, and the brachial artery was then confirmed. The patient was given 2500 units of heparin intravenously. The cephalic vein was then ligated at its most distal end. Yasargil clamps were then applied on the brachial artery, and a 6 mm incision in the anterior wall of the brachial artery was then performed. The cephalic vein was then gently curved and allowed to lay over the arteriotomy. The end of the vein was spatulated to match the side of the arteriotomy. The anastomosis was then performed using a running 6-0 Prolene suture. At the completion of the suture line the brachial artery was forward-flushed and then allowed to backbleed. The cephalic vein was also allowed to backbleed. The anastomosis was irrigated with heparinized saline solution. The suture was then tied and the suture line evaluated for hemostasis, which was adequate. There was evidence of excellent thrill in the cephalic vein. There was a strong pulse palpable in the brachial, radial, and ulnar arteries at the wrist. There was no evidence of any kinks. The subcutaneous tissue was then closed with a 3-0 Vicryl running suture and the skin closed with ricarda. There was evidence of excellent thrill in the cephalic vein after the wound closure. At this point the ded was placed in slight Trendelenburg position and the right groin was prepped and draped with sterile technique. The central catheter was flushed with heparin to ensure function of each port. The skin And subcutaneous tissue were anesthetized with 1% lidocaine. The venous port was used to pass the guidewire. The guidewire was passed easily and the previous catheter was removed. The dilator was placed over the wire and the tract gently dilated. The new catheter was fed over the wire, ensuring the wire exited from the port before advancing the catheter. The catheter was inserted to the desired depth and the wire removed. Each port was aspirated to ensure adequate blood flow and then flushed with heparinized saline solution. The catheter was secured in place with a 3-0 nylon suture and a sterile dressing was applied. All instrument , sponge and needle counts were correct 2. The patient tolerated the procedure well, was taken to the postanesthesia care unit in stable condition. All instruments, catheters, sponge, and needles were corrected x2. Anesthesia Type: other (block) Estimated Blood Loss: minimal Transfusion Required: no Specimen: none Grafts/Implants: none Complications: no Pt Condition Post Procedure: stable Disposition: PACU BRADLEY CARR MD Mar 20, 2017 09:51
[2017-03-20] MEDS ORDERED: hydrALAzine 20 MG INJ IV PRN (10:00)
[2017-03-20] MEDS ORDERED: DIPHENHYDRAMINE 50 MG INJ IV PRN (10:00)
[2017-03-20] MEDS ORDERED: ONDANSETRON 4 MG INJ IV PRN (10:00)
[2017-03-20] MEDS ORDERED: MEPERIDINE 25 MG INJ IV PRN (10:00)
[2017-03-20] MEDS ORDERED: HYDROmorphONE (0.2 MG/ML) 10ML SYG IV PRN ×2 (10:00)
[2017-03-20] MEDS ORDERED: LABETALOL HCL 20MG INJ IV PRN (10:00)
[2017-03-20] MEDS ORDERED: FENTAnyl 50 MCG/ML VIAL IV PRN ×3 (10:00)
[2017-03-20] MEDS ORDERED: OXYCODONE/ACETAMINOPHEN (5/325) TAB PO PRN ×2 (10:00)
[2017-03-20] MEDS ORDERED: EPHEDrine SULFATE 50 MG/5 ML SYG IV PRN (10:00)
--- NOTE | 2017-03-20 14:22 | CONS ---
Date/Time of Note Date/Time of Note DATE: 03/20/17 TIME: 14:11 Assessment/Plan Assessment/Plan Additional Assessment/Plan 66-year-old male with a history of hypertension, type 2 diabetes, end-stage renal disease on dialysis who was sent from dialysis center for catheter malfunction. 1 hour into dialysis, it was found that the dialysis catheter was clogged and as such he was sent to the ER for evaluation. When he presented to the ER he had a temperature of 98.7 otherwise his vitals are stable. Labs shows WBC of 13.1, hemoglobin 11.4, creatinine 8.17, BUN 78 and a creatinine of 5.5. pt only had a one hour of HD on Tuesday- K 5.8 yesterday received Kayexalate, K 5.3- no symptoms 1. Dialysis catheter malfunction 2. acute hyperkalemia-had HD today, BMP am 3. ESRD on HD MWF 4. Accelerated HTN 5 . DM 6. HL 7. Heel wound Plan: Vascular surgery to address HD catheter will plan for HD tomorrow after catheter replacement will follow up if BP runs high, Nurse instructed to call me Thanks for consultation, I will continue to follow up Consultation Date/Type/Reason Admit Date/Time Mar 18, 2017 at 20:19 Initial Consult Date 03/19/17 Type of Consultation: NEPHROLOGY Referring Provider: ROLANDO COLLAZO MD 24 HR Interval Summary Free Text/Dictation nad, afebrile, dw staff- elevated K. Had HD toady using right femoral cath- removed 2L. DW STAFF Detailed Summary Respiratory: no complaints Cardiovascular: no complaints Gastrointestinal: no complaints Genitourinary: no complaints Musculoskeletal: bone/joint pain (left arm pain), other Skin: no complaints Exam/Review of Systems Vital Signs Vitals Vital Signs Date Time Temp Pulse Resp B/P Pulse Ox O2 Delivery O2 Flow Rate FiO2 03/20/17 13:30 65 17 03/20/17 11:00 109/52 03/20/17 10:20 97 Room Air 03/20/17 09:51 98.0 Intake and Output 03/19/17 03/19/17 03/20/17 15:00 23:00 07:00 Intake Total 570 ml 450 ml Output Total 30 ml Balance 570 ml 420 ml Exam Constitutional: alert, well developed Cardiovascular: nl pulses Gastrointestinal: non-tender, soft Musculoskeletal: other Extremities: normal pulses, other (sp left arm AVF on 03/19/2015, sling noted) Neurological: nl mental status, nl speech Results Result Diagram: 03/19/1751203/19/17512 Results 24 hrs Laboratory Tests Test 03/19/17 16:47 03/19/17 20:31 03/20/17 06:53 03/20/17 12:04 Bedside Glucose 99 78 82 131 Medications Medications Current Medications Aspirin (Halfprin) 81 mg DAILY PO Last administered on 03/19/17 09:17; Admin Dose 81 MG; Start 03/19/17 at 09:00 Benazepril HCl (Lotensin) 20 mg DAILY PO Last administered on 03/19/17 09:17; Admin Dose 20 MG; Start 03/19/17 at 09:00 Metoprolol Tartrate (Lopressor) 25 mg DAILY PO Last administered on 03/19/17 09:18; Admin Dose 25 MG; Start 03/19/17 at 09:00 Multivit/Ca Carb/ B Cmplx/FA/Prenat ([place]-Cherelle) 1 tab DAILY PO Last administered on 03/19/17 09:17; Admin Dose 1 TAB; Start 03/19/17 at 09:00 Morphine Sulfate (morphine) 2 mg Q4H PRN IV PAIN Last administered on 23:05; Admin Dose 2 MG; Start 03/18/17 at 23:30 Acetaminophen (Tylenol Tab) 650 mg Q6H PRN PO PAIN AND OR ELEVATED TEMP; Start 03/18/17 at 23:30 Ondansetron HCl (Zofran Inj) 4 mg Q6H PRN IV NAUSEA AND/OR VOMITING; Start at 23:30 Diagnostic Test (Pha) (Accu-Chek) 1 ea 02 XX ; Start 03/19/17 at 02:00 Diagnostic Test (Pha) (Accu-Chek) 1 ea 02 XX ; Start 03/19/17 at 02:00 Pantoprazole (Protonix Tab) 40 mg DAILY@06 PO Last administered on 03/19/17 05 :21; Admin Dose 40 MG; Start 03/19/17 at 06:00 Miscellaneous Information 1 ea NOTE XX ; Start 03/19/17 at 00:30 Glucose (Glutose) 15 gm Q15M PRN PO DECREASED GLUCOSE; Start 03/19/17 at 00:30 Glucose (Glutose) 22.5 gm Q15M PRN PO DECREASED GLUCOSE; Start 03/19/17 at 00: 30 Dextrose (D50w Syringe) 25 ml Q15M PRN IV DECREASED GLUCOSE; Start 03/19/17 at 00:30 Dextrose (D50w Syringe) 50 ml Q15M PRN IV DECREASED GLUCOSE; Start 03/19/17 at 00:30 Glucagon (Glucagen) 1 mg Q15M PRN IM DECREASED GLUCOSE; Start 03/19/17 at 00:30 Glucose (Glutose) 15 gm Q15M PRN BUCCAL DECREASED GLUCOSE; Start 03/19/17 at 00 :30 Heparin Sodium (Porcine) 5000 unit 5,000 unit BID SC Last administered on 20:35; Admin Dose 5,000 UNIT; Start 03/19/17 at 21:00 Dextrose/Sodium Chloride (D5-1/2ns) 1,000 ml @ 40 mls/hr Q24H IV Last administered on 03/20/17 00:24; Admin Dose 40 MLS/HR; Start 03/20/17 at 00:00 Magnesium Hydroxide (Milk Of Mag) 30 ml DAILY PRN PO CONSTIPATION; Start at 22:30 Senna (Senokot) 2 tab BID PO ; Start 03/20/17 at 09:00 CHERELLE TY Mar 20, 2017 14:22
[2017-03-20] MEDS ORDERED: NA POLYST SULFON 15 GM/60 ML BTL PO ONE (14:30)
[2017-03-20] MEDS: morphine 2 MG INJ IV PRN ×2 (14:36→20:30)
[2017-03-20] MEDS: ACCU-CHEK XX SCH ×2 (20:21→20:22)
[2017-03-21] VITALS (11 sets, daily range): BP systolic 118–137; BP diastolic 19–64; PULSE 60–71; RESP 18–19
[2017-03-21] MEDS: morphine 2 MG INJ IV PRN ×2 (05:20→10:15)
[2017-03-21] MEDS: PANTOPRAZOLE (EC) 40 MG TAB PO SCH (05:20)
[2017-03-21 07:14] LABS: WHITE BLOOD COUNT 11.6 10^3/ul (4.8-10.8)
[2017-03-21 07:15] LABS: ABNORMAL IP MESSAGE 1; BASOPHILS % 0.3 % (0.0-2.0); EOSINOPHILS # 0.3 10^3/ul (0.0-0.5); EOSINOPHILS % 2.2 % (0.0-7.0); HEMATOCRIT 31.7 % (42.0-52.0); HEMOGLOBIN 9.9 g/dl (14.0-18.0); LYMPHOCYTES # 2.4 10^3/ul (0.8-2.9); MEAN CORPUSCULAR HGB CONC 31.2 g/dl (32.0-37.0); MEAN CORPUSCULAR VOLUME 105.7 fl (82.0-101.0); MEAN PLATELET VOLUME 11.2 fl (7.4-10.4); MONOCYTE # 1.8 10^3/ul (0.3-0.9); MONOCYTES % 15.7 % (0.0-11.0); NEUTROPHILS % 60.5 % (39.0-77.0); PLATELET COUNT 223 10^3/UL (140-415); POSITIVE DIFF @See below; RED CELL DISTRIBUTION WIDTH 18.2 % (11.5-14.5)
[2017-03-21 07:27] LABS: CALCIUM 8.6 mg/dl (8.4-10.2); CREATININE 7.42 mg/dl (0.61-1.24); POTASSIUM 4.5 mmol/L (3.5-5.1)
[2017-03-21] MEDS: INSULIN ASPART [NOVOLOG] 3 ML PEN SC SCH ×3 (08:00→17:46)
[2017-03-21] MEDS: SEVELAMER 800 MG TAB PO SCH ×3 (08:03→16:57)
[2017-03-21] MEDS: ASPIRIN (EC) 81 MG TAB PO SCH (08:13)
[2017-03-21] MEDS: METOPROLOL 25 MG TAB PO SCH (08:14)
[2017-03-21] MEDS: BENAZEPRIL 20 MG TAB PO SCH (08:14)
[2017-03-21] MEDS: HEPARIN 5,000 UNIT/0.5 ML VIAL SC SCH (08:14)
[2017-03-21 08:15] LABS: HEPATITIS B CORE ANTIBODY NEGATIVE (NEGATIVE)
[2017-03-21] MEDS: MULTIVIT/CA CARB/B CMPLX/FA TAB PO SCH (09:04)
[2017-03-21] MEDS: SENNA TAB PO SCH (09:04)
--- NOTE | 2017-03-21 15:31 | PDOCDIS ---
Discharge Instructions DIAGNOSIS Discharge Diagnosis Malfunctioning dialysis catheter. Status post replacement. CONDITION Patient Condition: Stable HOME CARE INSTRUCTIONS: Special Diet: Renal OTHER ORDERS: Other Orders: 1. Resume home medications. 2. Follow-up with amputation prevention center at the earliest. 3. Follow-up with your hemodialysis center as scheduled. 4. Resume prehospitalization activities. PARVIZ CANO NP Mar 21, 2017 15:31
--- NOTE | 2017-03-21 17:50 | DS ---
Date/Time of Note Date/Time of Note DATE: 03/21/17 TIME: 17:48 Discharge Summary Admission/Discharge Info Admit Date/Time Mar 18, 2017 at 20:19 Discharge Date/Time Discharge Diagnosis 1. Malfunctioning right common femoral vein hemodialysis catheter. Status post emergent exchange. 2. End-stage renal disease on hemodialysis. 3. Essential hypertension. 4. Anemia chronic kidney disease. 5. Right lower extremity necrotic toes. Patient Condition: Stable Consults 1. Bradley Quintero, Vascular Surgery. 2. Bridger Paige MD, Nephrology. Procedures 1. Creation of a left arm brachiocephalic arteriovenous fistula. 2. Emergent exchange of right common femoral vein permanent hemodialysis catheter Hx of Present Illness This is a 66-year-old male with a history of hypertension, type 2 diabetes, end- stage renal disease on dialysis who was sent from dialysis center for catheter malfunction. 1 hour into dialysis, it was found that the dialysis catheter was clogged and as such he was sent to the ER for evaluation. When he presented to the ER he had a temperature of 99.7 otherwise his vitals were stable. Labs shows WBC of 13.1, hemoglobin 11.4, creatinine 8.17, BUN 78 and a creatinine of 5.5. Hospital Course The patient was admitted to inpatient setting. A nephrology and vascular surgery consult was obtained. The patient underwent an emergent exchange of the right common femoral vein permanent hemodialysis catheter. The patient also had creation of a left arm brachiocephalic arteriovenous fistula. The patient was restarted on hemodialysis using the new right common femoral vein permanent hemodialysis catheter. The patient had some hyperkalemia on the day of admission and the following day. This was controlled after initiation of hemodialysis. He has underlying essential hypertension. He was maintained on antihypertensives for the same. He has anemia of chronic kidney disease. His H &H remained stable. The patient was also noticed to have right lower extremity necrotic toes. For this the patient follows up with a rn first assist as well as vascular surgery with the amputation prevention center in [facility]. The patient is scheduled to undergo surgical intervention of the right lower extremity. Hence the patient was encouraged for outpatient follow-up at the earliest after the patient was released from the hospital. The patient had a stable hospital course. The patient was cleared by consultants to be discharged home. Patient denied any complaints at the time of discharge. Discharge Instructions 1. Resume home medications. 2. Follow-up with amputation prevention center at the earliest. 3. Follow-up with your hemodialysis center as scheduled. 4. Resume prehospitalization activities. The patient verbalized understanding of his discharge instructions. At this time I would like to thank all the consultants for seeing the patient, doing the necessary procedures, and providing clinical recommendations. Case discussed with Dr. Rosenberg. Home Meds Active Scripts Benazepril Hcl* (Benazepril Hcl*) 20 Mg Tablet, 20 MG PO BID, #60 TAB 3 Refills Prov:ELIJAH DEUTSCH 11/21/16 Famotidine* (Famotidine*) 20 Mg Tablet, 20 MG PO DAILY, #30 TAB Prov:OZZIE HERRERA MD 11/10/16 Docusate Sodium (Dok) 100 Mg Capsule, 100 MG PO DAILY, #30 CAP Prov:OZZIE HERRERA MD 11/10/16 Aspirin* (Aspirin* EC) 81 Mg Tablet., 81 MG PO DAILY, #30 Prov:OZZIE HERRERA MD 11/10/16 Nitroglycerin* (Nitrostat*) 0.4 Mg Tab.subl, 1 TAB SL Q5M Y for CHEST PAIN, #60 Prov:OZZIE HERRERA MD 11/10/16 Metoprolol Tartrate* (Lopressor*) 25 Mg Tab, 25 MG PO BID, #60 TAB Prov:OZZIE HERRERA MD 11/10/16 Reported Medications Metoprolol Tartrate* (Lopressor*) 25 Mg Tab, 25 MG PO DAILY, #60 TAB 03/18/17 Bicarbonate Dialysis Soln No.2 (Prismasol) Unknown Strength Solution, 5000 ML HE TID 03/18/17 Multivit/Ca Carb/B Cmplx/Fa* ([place]yenne-Cherelle*) 1 Tab Tab, 1 TAB PO DAILY, TAB 03/18/17 Benazepril Hcl* (Benazepril Hcl*) 20 Mg Tablet, 20 MG PO DAILY, #30 TAB 02/22/17 Sevelamer Hcl* (Renagel*) 800 Mg Tablet, 1600 MG PO WITH MEALS, TAB 02/17/17 Aspirin (Low Dose Aspirin) 81 Mg Tablet., 81 MG PO DAILY, #30 TAB 02/17/17 Omeprazole* (Omeprazole*) 40 Mg Capsule.dr, 40 MG PO DAILY, #30 CAP 02/17/17 Glipizide* (Glipizide*) 5 Mg Tablet, 2.5 MG PO AC BREAKFAST, TAB 12/22/16 Oxycodone HCl/Acetaminophen (Percocet 5-325 mg Tablet) 1 Each Tablet, 1 EACH PO Q6 Y for PAIN, TAB 12/22/16 Atorvastatin Calcium (Atorvastatin Calcium) 10 Mg Tablet, 10 MG PO QHS, #30 TAB 12/22/16 Discontinued Reported Medications [Bicarbonate] No Conflict Check, 1 TAB PO TID 03/18/17 Clopidogrel Bisulfate (Clopidogrel) 75 Mg Tablet, 75 MG PO DAILY, #30 TAB 02/22/17 B Complex & C No.20/Folic Acid (Virt-Caps Softgel) 1 Mg Capsule, 1 MG PO, CAP 02/17/17 Amlodipine Besylate* (Amlodipine Besylate*) 10 Mg Tablet, 10 MG PO DAILY, #30 TAB 02/17/17 Metoprolol Tartrate* (Lopressor*) 25 Mg Tab, 25 MG PO BID, #60 TAB 02/17/17 Clonidine Patch (CLONIDINE PATCH) 0.2 Mg/24 Hr Patch, 1 PATCH.WK TD Q7D, #4 PATCH.WK 02/17/17 Hydrocodone/Acetaminophen ([place] 5-325 Tablet) 1 Each Tablet, 1 EACH PO Q6 for PAIN LEVEL 6-10, TAB 02/17/17 Follow-up Plan 1. Follow-up with your primary care physician as scheduled. 2. Follow-up with amputation prevention center at the earliest. 3. Follow-up with hemodialysis clinic as scheduled. Primary Care Provider [facility] Time spent on discharge: > 30 minutes Pending Labs Laboratory Tests Test 03/20/17 20:20 03/21/17 05:47 03/21/17 08:04 03/21/17 12:27 Bedside Glucose 137mg/dL (70-220) 79mg/dL (70-220) 56mg/dL (70-220) White Blood Count 11.610^3/ul (4.8-10.8) Red Blood Count 3.0010^6/ul (4.70-6.10) Hemoglobin 9.9g/dl (14.0-18.0) Hematocrit 31.7% (42.0-52.0) Mean Corpuscular Volume 105.7fl (82.0-101.0) Mean Corpuscular Hemoglobin 33.0pg (29.0-33.0) Mean Corpuscular Hemoglobin Concent 31.2g/dl (32.0-37.0) Red Cell Distribution Width 18.2% (11.5-14.5) Platelet Count 46346^3/UL (140-415) Mean Platelet Volume 11.2fl (7.4-10.4) Neutrophils % 60.5% (39.0-77.0) Lymphocytes % 21.0% (15.0-51.0) Monocytes % 15.7% (0.0-11.0) Eosinophils % 2.2% (0.0-7.0) Basophils % 0.3% (0.0-2.0) Nucleated Red Blood Cells % 0.0/100WBC (0.0-0.0) Neutrophils # (Manual) 710^3/ul (1.7-7.5) Lymphocytes # 2.410^3/ul (0.8-2.9) Monocytes # 1.810^3/ul (0.3-0.9) Eosinophils # 0.310^3/ul (0.0-0.5) Basophils # 0.010^3/ul (0.0-0.1) Nucleated Red Blood Cells # 0.010^3/ul (0.0-0.0) Sodium Level 139mmol/L (135-144) Potassium Level 4.5mmol/L (3.5-5.1) Chloride Level 96mmol/L (97-110) Carbon Dioxide Level 25mmol/L (21-31) Anion Gap 23 (8-16) Blood Urea Nitrogen 72mg/dl (7-20) Creatinine 7.42mg/dl (0.61-1.24) Glucose Level 85mg/dl (70-220) Calcium Level 8.6mg/dl (8.4-10.2) Hepatitis B Surface Antigen NEGATIVE (NEGATIVE) Hepatitis B Core Total Antibody NEGATIVE (NEGATIVE) Hepatitis C Antibody NEGATIVE (NEGATIVE) Test 03/21/17 13:04 03/21/17 13:25 03/21/17 13:38 Bedside Glucose 48mg/dL (70-220) 126mg/dL (70-220) 117mg/dL (70-220) PARVIZ CANO NP Mar 21, 2017 17:50
--- NOTE | 2017-03-21 18:31 | CONS ---
Date/Time of Note Date/Time of Note DATE: 03/21/17 TIME: 18:30 Assessment/Plan Assessment/Plan Chief Complaint/Hosp Course 66-year-old male with a history of hypertension, type 2 diabetes, end-stage renal disease on dialysis who was sent from dialysis center for catheter malfunction. 1 hour into dialysis, it was found that the dialysis catheter was clogged and as such he was sent to the ER for evaluation. When he presented to the ER he had a temperature of 98.7 otherwise his vitals are stable. Labs shows WBC of 13.1, hemoglobin 11.4, creatinine 8.17, BUN 78 and a creatinine of 5.5. pt only had a one hour of HD on tuesday- K 5.8 yesterday received kayexalate, today's K 5.3- no symptoms Problems: Additional Assessment/Plan 1. Dialysis catheter malfunction 2. acute hyperkalemia-had HD today, BMP am 3. ESRD on HD MWF 4. Accelerated HTN 5 . DM 6. HL 7. Heel wound Plan: s/p replacement of catheter, s/p Hd today, will continue HD on MWF will follow up Consultation Date/Type/Reason Admit Date/Time Mar 18, 2017 at 20:19 Initial Consult Date 03/19/17 Type of Consultation: NEPHROLOGY Referring Provider: ROLANDO COLLAZO MD 24 HR Interval Summary Free Text/Dictation awaiting podiatry consult, BP stable, plan for HD today Exam/Review of Systems Vital Signs Vitals Vital Signs Date Time Temp Pulse Resp B/P Pulse Ox O2 Delivery O2 Flow Rate FiO2 03/21/17 18:00 66 03/21/17 17:14 97.4 18 129/35 99 03/20/17 10:20 Room Air Intake and Output 03/20/17 03/20/17 03/21/17 15:00 23:00 07:00 Intake Total 540 ml 840 ml 350 ml Output Total 2260 ml Balance -1720 ml 840 ml 350 ml Results Result Diagram: 03/21/17 0547 03/21/17 0547 Results 24 hrs Laboratory Tests Test 03/20/17 20:20 03/21/17 05:47 03/21/17 08:04 03/21/17 12:27 Bedside Glucose 137 79 56 L White Blood Count 11.6 H Red Blood Count 3.00 L Hemoglobin 9.9 L Hematocrit 31.7 L Mean Corpuscular Volume 105.7 H Mean Corpuscular Hemoglobin 33.0 Mean Corpuscular Hemoglobin Concent 31.2 L Red Cell Distribution Width 18.2 H Platelet Count 223 Mean Platelet Volume 11.2 H Neutrophils % 60.5 Lymphocytes % 21.0 Monocytes % 15.7 H Eosinophils % 2.2 Basophils % 0.3 Nucleated Red Blood Cells % 0.0 Neutrophils # (Manual) 7 Lymphocytes # 2.4 Monocytes # 1.8 H Eosinophils # 0.3 Basophils # 0.0 Nucleated Red Blood Cells # 0.0 Sodium Level 139 Potassium Level 4.5 Chloride Level 96 L Carbon Dioxide Level 25 Anion Gap 23 H Blood Urea Nitrogen 72 H Creatinine 7.42 H Glucose Level 85 Calcium Level 8.6 Hepatitis B Surface Antigen NEGATIVE Hepatitis B Core Total Antibody NEGATIVE Hepatitis C Antibody NEGATIVE Test 03/21/17 13:04 03/21/17 13:25 03/21/17 13:38 03/21/17 17:45 Bedside Glucose 48 *L 126 117 125 Medications Medications Current Medications Aspirin (Halfprin) 81 mg DAILY PO Last administered on 03/19/17 09:17; Admin Dose 81 MG; Start 03/19/17 at 09:00 Benazepril HCl (Lotensin) 20 mg DAILY PO Last administered on 03/19/17 09:17; Admin Dose 20 MG; Start 03/19/17 at 09:00 Metoprolol Tartrate (Lopressor) 25 mg DAILY PO Last administered on 03/19/17 09:18; Admin Dose 25 MG; Start 03/19/17 at 09:00 Multivit/Ca Carb/ B Cmplx/FA/Prenat ([place]-Cherelle) 1 tab DAILY PO Last administered on 03/21/17 09:04; Admin Dose 1 TAB; Start 03/19/17 at 09:00 Morphine Sulfate (morphine) 2 mg Q4H PRN IV PAIN Last administered on 10:15; Admin Dose 2 MG; Start 03/18/17 at 23:30 Acetaminophen (Tylenol Tab) 650 mg Q6H PRN PO PAIN AND OR ELEVATED TEMP Last administered on 03/20/17 20:29; Admin Dose 650 MG; Start 03/18/17 at 23:30 Ondansetron HCl (Zofran Inj) 4 mg Q6H PRN IV NAUSEA AND/OR VOMITING; Start at 23:30 Diagnostic Test (Pha) (Accu-Chek) 1 ea 02 XX ; Start 03/19/17 at 02:00 Diagnostic Test (Pha) (Accu-Chek) 1 ea 02 XX ; Start 03/19/17 at 02:00 Pantoprazole (Protonix Tab) 40 mg DAILY@06 PO Last administered on 03/21/17 05 :20; Admin Dose 40 MG; Start 03/19/17 at 06:00 Miscellaneous Information 1 ea NOTE XX ; Start 03/19/17 at 00:30 Glucose (Glutose) 15 gm Q15M PRN PO DECREASED GLUCOSE; Start 03/19/17 at 00:30 Glucose (Glutose) 22.5 gm Q15M PRN PO DECREASED GLUCOSE; Start 03/19/17 at 00: 30 Dextrose (D50w Syringe) 25 ml Q15M PRN IV DECREASED GLUCOSE; Start 03/19/17 at 00:30 Dextrose (D50w Syringe) 50 ml Q15M PRN IV DECREASED GLUCOSE; Start 03/19/17 at 00:30 Glucagon (Glucagen) 1 mg Q15M PRN IM DECREASED GLUCOSE; Start 03/19/17 at 00:30 Glucose (Glutose) 15 gm Q15M PRN BUCCAL DECREASED GLUCOSE; Start 03/19/17 at 00 :30 Heparin Sodium (Porcine) (Heparin (5000 Units/0.5 ml)) 5,000 unit BID SC Last administered on 03/20/17 20:30; Admin Dose 5,000 UNIT; Start 03/19/17 at 21:00 Magnesium Hydroxide (Milk Of Mag) 30 ml DAILY PRN PO CONSTIPATION; Start at 22:30 Senna (Senokot) 2 tab BID PO Last administered on 03/21/17 09:04; Admin Dose 2 TAB; Start 03/20/17 at 09:00 LISA MERRITT MD Mar 21, 2017 18:31
== END 2017-03-21 20:48 | disposition home or self-care (01) | DRG 264 ==
LOC: E/R 17:05 → MERGE 20:19 → PP2 20:19
PROVIDERS: ADMIT Internal Medicine; ATTEND Internal Medicine
PROC: 06PY33Z Removal of Infusion Device from Lower Vein, Percutaneous Approach (ICD-10-PCS; 2017-03-20)
PROC: 06HM33Z Insertion of Infusion Device into Right Femoral Vein, Percutaneous Approach (ICD-10-PCS; 2017-03-20)
PROC: 5A1D00Z (ICD-10-PCS; 2017-03-20)
PROC: 03180ZD Bypass Left Brachial Artery to Upper Arm Vein, Open Approach (ICD-10-PCS; principal; 2017-03-20 07:30)
DX: T82.49XA Other complication of vascular dialysis catheter, initial encounter (principal); I12.0 Hypertensive chronic kidney disease with stage 5 chronic kidney disease or end stage renal disease; N18.6 End stage renal disease; E11.52 Type 2 diabetes mellitus with diabetic peripheral angiopathy with gangrene; E11.22 Type 2 diabetes mellitus with diabetic chronic kidney disease; Z99.2 Dependence on renal dialysis; D63.1 Anemia in chronic kidney disease; E78.5 Hyperlipidemia, unspecified; E87.5 Hyperkalemia; Z87.891 Personal history of nicotine dependence; D72.829 Elevated white blood cell count, unspecified; Z89.612 Acquired absence of left leg above knee; Z79.82 Long term (current) use of aspirin; Y84.1 Kidney dialysis as the cause of abnormal reaction of the patient, or of later complication, without mention of misadventure at the time of the procedure
CPT/HCPCS: 80048; 80053; 82962; 83036; 83735; 84100; 85025; 86704; 86803; 87081; 87340; 90935; C1752; J1644; J1815; J2250; J2270; J2795; J2997; J3010; J7042

== ENCOUNTER 2017-03-28 10:48 | Inpatient (IN) | payer OTHER ==
[~2017-03-28] VITALS: Ht 167.6 cm; Wt 52.0 kg
[~2017-03-28 10:48] MED LIST changes: -ALBU18HF INH; -AMIK500I IM; -AMLO-147 PO; -APIX5TAB PO; -B CO1CAP11 PO; -BENA10TA48 PO; -CATTTS1 TRANSDERM; -CLON1PAT2 TD; -CLOP75TA27 PO; -DAPT500V IV; -HYDR-906 PO; -METR-111 PO; -METR250T PO; +NEPH PO; +[UNRECOGNIZED DRUG - CODE] HE
[2017-03-28] MEDS ORDERED: morphine 10 MG INJ IV ONE (11:30)
[2017-03-28 12:16] LABS: BASOPHIL # 0.1 10^3/ul (0.0-0.1); BASOPHILS % 0.6 % (0.0-2.0); EOSINOPHILS # 0.3 10^3/ul (0.0-0.5); EOSINOPHILS % 2.6 % (0.0-7.0); HEMATOCRIT 34.4 % (42.0-52.0); HEMOGLOBIN 10.8 g/dl (14.0-18.0); LYMPHOCYTES # 2.3 10^3/ul (0.8-2.9); LYMPHOCYTES % 18.2 % (15.0-51.0); MEAN CORPUSCULAR HEMOGLOBIN 33.2 pg (29.0-33.0); MEAN CORPUSCULAR HGB CONC 31.4 g/dl (32.0-37.0); MEAN CORPUSCULAR VOLUME 105.8 fl (82.0-101.0); MEAN PLATELET VOLUME 10.5 fl (7.4-10.4); MONOCYTE # 1.2 10^3/ul (0.3-0.9); MONOCYTES % 9.2 % (0.0-11.0); NEUTROPHILS % 68.6 % (39.0-77.0); PLATELET COUNT 429 10^3/UL (140-415); RED BLOOD COUNT 3.25 10^6/ul (4.70-6.10); RED CELL DISTRIBUTION WIDTH 17.4 % (11.5-14.5); WHITE BLOOD COUNT 12.7 10^3/ul (4.8-10.8)
[2017-03-28 12:29] LABS: INR 1.06; PROTIME 13.8 Sec (12.2-14.2); PT RATIO 1.1
[2017-03-28 12:30] LABS: PARTIAL THROMBOPLASTIN TIME 27.8 Sec (25.0-35.0)
[2017-03-28 12:38] LABS: CALCIUM 9.3 mg/dl (8.4-10.2); CREATININE 7.9 mg/dl (0.61-1.24); MAGNESIUM 2.4 mg/dl (1.7-2.5); PHOSPHORUS 3.2 mg/dl (2.5-4.9); POTASSIUM 4.8 mmol/L (3.5-5.1)
[2017-03-28] MEDS ORDERED: ONDANSETRON 4 MG INJ IV PRN ×2 (13:30→17:00)
[2017-03-28] MEDS ORDERED: ACETAMINOPHEN 325 MG TAB PO PRN ×2 (13:30→17:00)
[2017-03-28 15:30] VITALS: TEMP 98.9
--- NOTE | 2017-03-28 16:07 | ERA ---
ER Documentation Chief Complaint Date/Time DATE: 03/28/17 TIME: 15:57 Chief Complaint SENT BY PCP FOR LAB WORK, HIGH POTASSIUM, DIALYSIS CATHETER CLOGGED HPI 66-year-old male with multiple medical problems including ESRD on hemodialysis and peripheral artery disease presenting to the ER from his dialysis center for malfunctioning HD catheter. He was here for the same issue about 1 week ago and had an emergent replacement of his femoral HD cath. His last dialysis was 2 days ago and it was completed without any issues. However they were unable to dialyze him today. The patient's only complaint is right foot pain which is chronic for him. Otherwise he denies any dizziness, chest pain, nausea, vomiting. No fevers or chills. On his last hospitalization, he did have a left AV fistula created which has not matured yet. ROS All systems reviewed and are negative except as per history of present illness. Medications Home Meds Active Scripts Benazepril Hcl* (Benazepril Hcl*) 20 Mg Tablet, 20 MG PO BID, #60 TAB 3 Refills Prov:ELIJAH DEUTSCH 11/21/16 Metoprolol Tartrate* (Lopressor*) 25 Mg Tab, 25 MG PO BID, #60 TAB Prov:OZZIE HERRERA MD 11/10/16 Reported Medications Bicarbonate Dialysis Soln No.2 (Prismasol) Unknown Strength Solution, 5000 ML HE TID 03/18/17 Multivit/Ca Carb/B Cmplx/Fa* ([place]-Cherelle*) 1 Tab Tab, 1 TAB PO DAILY, TAB 03/18/17 Sevelamer Hcl* (Renagel*) 800 Mg Tablet, 1600 MG PO WITH MEALS, TAB 02/17/17 Aspirin (Low Dose Aspirin) 81 Mg Tablet., 81 MG PO DAILY, #30 TAB 02/17/17 Omeprazole* (Omeprazole*) 40 Mg Capsule.dr, 40 MG PO DAILY, #30 CAP 02/17/17 Oxycodone HCl/Acetaminophen (Percocet 5-325 mg Tablet) 1 Each Tablet, 1 EACH PO Q6 Y for PAIN, TAB 12/22/16 Discontinued Reported Medications Metoprolol Tartrate* (Lopressor*) 25 Mg Tab, 25 MG PO DAILY, #60 TAB 03/18/17 Benazepril Hcl* (Benazepril Hcl*) 20 Mg Tablet, 20 MG PO DAILY, #30 TAB 02/22/17 Glipizide* (Glipizide*) 5 Mg Tablet, 2.5 MG PO AC BREAKFAST, TAB 12/22/16 Atorvastatin Calcium (Atorvastatin Calcium) 10 Mg Tablet, 10 MG PO QHS, #30 TAB 12/22/16 Discontinued Scripts Famotidine* (Famotidine*) 20 Mg Tablet, 20 MG PO DAILY, #30 TAB Prov:OZZIE HERRERA MD 11/10/16 Docusate Sodium (Dok) 100 Mg Capsule, 100 MG PO DAILY, #30 CAP Prov:OZZIE HERRERA MD 11/10/16 Aspirin* (Aspirin* EC) 81 Mg Tablet.dr, 81 MG PO DAILY, #30 Prov:OZZIE HERRERA MD 11/10/16 Nitroglycerin* (Nitrostat*) 0.4 Mg Tab.subl, 1 TAB SL Q5M Y for CHEST PAIN, #60 Prov:OZZIE HERRERA MD 11/10/16 Allergies Allergies: Coded Allergies: vancomycin (Verified Allergy, Intermediate, rash, 03/28/17) PMhx/Soc History of Surgery: Yes (amputation leg left 2017) Anesthesia Reaction: No Hx Neurological Disorder: No Hx Respiratory Disorders: Yes (PNA) Hx Cardiac Disorders: Yes (HTN, DMii) Hx Psychiatric Problems: No Hx Miscellaneous Medical Probl: No Hx Alcohol Use: Yes Hx Substance Use: No Hx Tobacco Use: Yes Smoking Status: Current every day smoker FmHx Family History: No coronary disease Physical Exam Vitals Vital Signs Date Time Temp Pulse Resp B/P Pulse Ox O2 Delivery O2 Flow Rate FiO2 03/28/17 15:30 98.9 64 20 112/54 98 Room Air 03/28/17 15:04 64 20 118/53 98 Room Air 03/28/17 12:09 69 18 104/49 99 Room Air 03/28/17 10:52 97.5 72 18 105/54 99 Physical Exam Const: no apparent distress, chronically ill appearing Head: Atraumatic Eyes: Normal Conjunctiva ENT: Normal External Ears, Nose and Mouth. Neck: Full range of motion..~ No meningismus.no JVD Resp: Clear to auscultation bilaterally Cardio: Regular rate and rhythm, no murmurs Abd: Soft, non tender, non distended. Normal bowel sounds Skin: No petechiae or rashes Back: No midline or flank tenderness Ext: No cyanosis, or edema. Right femoral HD cath in place, no surrounding erythema or swelling. Right foot with multiple toes with dry gangrene. Mild pedal edema. Left leg amputated. Neur: Awake and alert and oriented, residential director intact, strength grossly intact Psych: Normal Mood and Affect Result Diagram: 03/28/17 1126 03/28/17 1126 Results 24 hrs Laboratory Tests Test 03/28/17 11:26 White Blood Count 12.710^3/ul Red Blood Count 3.2510^6/ul Hemoglobin 10.8g/dl Hematocrit 34.4% Mean Corpuscular Volume 105.8fl Mean Corpuscular Hemoglobin 33.2pg Mean Corpuscular Hemoglobin Concent 31.4g/dl Red Cell Distribution Width 17.4% Platelet Count 24845^3/UL Mean Platelet Volume 10.5fl Neutrophils % 68.6% Lymphocytes % 18.2% Monocytes % 9.2% Eosinophils % 2.6% Basophils % 0.6% Nucleated Red Blood Cells % 0.0/100WBC Neutrophils # (Manual) 8.710^3/ul Lymphocytes # 2.310^3/ul Monocytes # 1.210^3/ul Eosinophils # 0.310^3/ul Basophils # 0.110^3/ul Nucleated Red Blood Cells # 0.010^3/ul Prothrombin Time 13.8Sec Prothrombin Time Ratio 1.1 INR International Normalized Ratio 1.06 Activated Partial Thromboplast Time 27.8Sec Sodium Level 139mmol/L Potassium Level 4.8mmol/L Chloride Level 94mmol/L Carbon Dioxide Level 24mmol/L Anion Gap 26 Blood Urea Nitrogen 86mg/dl Creatinine 7.90mg/dl Glucose Level 160mg/dl Calcium Level 9.3mg/dl Phosphorus Level 3.2mg/dl Magnesium Level 2.4mg/dl Current Medications Medications (Trade) Dose Ordered Sig/Familia Route PRN Reason Start Time Stop Time Status Last Admin Dose Admin Morphine Sulfate (morphine) 6 mg ONCE ONCE IV 03/28/17 11:30 03/28/17 11:31 DC 03/28/17 12:06 Ondansetron HCl (Zofran Inj) 4 mg BRIDGE ORDER PRN IV NAUSEA AND/OR VOMITING 03/28/17 13:30 03/29/17 13:29 Acetaminophen (Tylenol Tab) 650 mg ER BRIDGE PRN PO MILD PAIN/FEVER 03/28/17 13:30 03/29/17 13:29 Procedures/MDM Labs reviewed by me: CBC shows Leukocytosis, anemia, and elevated platelets BMP shows elevated BUN and creatinine, Patient is presenting with malfunction of his dialysis catheter. Vitals are stable and he is afebrile. He has no significant electrolyte abnormalities on his labs and does not require emergent dialysis. However he will need his dialysis catheter changed. Patient will be admitted To the hospitalist team. Departure Diagnosis: Primary Impression: Dialysis catheter clot or failure Additional Impression: CKD (chronic kidney disease) Qualified Code: N18.9 - Chronic kidney disease, unspecified CKD stage Condition: Serious BARBARA YUSUF MD Mar 28, 2017 16:07
[2017-03-28 16:30] VITALS: BP 116/65; PULSE 60; RESP 16
[2017-03-28] MEDS ORDERED: NACL 0.9% 3 ML SYG IV SCH (17:00)
[2017-03-28] MEDS ORDERED: ZOLPIDEM 5 MG TAB PO PRN (17:00)
--- NOTE | 2017-03-28 17:01 | HP ---
Date/Time of Note Date/Time of Note DATE: 03/28/17 TIME: 16:56 Assessment/Plan VTE Prophylaxis VTE Prophylaxis Intervention: SCD's Lines/Catheters IV Catheter Type (from Nrs): Saline Lock Assessment/Plan Chief Complaint/Hosp Course 1. End-stage renal disease -Consult vascular surgery for replacement of access line -Have consulted nephrology 2. Diabetes -Sliding-scale 3. Hypertension -Continue home meds 4. DM foot infection -out-pt podiatry PPX: SCDs Problems: HPI/ROS Admit Date/Time Admit Date/Time Mar 28, 2017 at 13:08 Hx of Present Illness Pt is a 66-year-old male with a history of hypertension, type 2 diabetes, diabetic foot ulcer, end-stage renal disease on dialysis who was sent from dialysis center for catheter malfunction. He had recent fistula placement as well as catheter exchange approximately 1 week ago. Continues to have issues with his dialysis catheter. Patient has no acute complaints at this time ROS Constitutional: improved, no complaints Eyes: no complaints ENT: no complaints Respiratory: no complaints Cardiovascular: no complaints Gastrointestinal: no complaints Genitourinary: no complaints Musculoskeletal: no complaints Skin: no complaints Neurologic: no complaints Endocrine: no complaints Lymphatic: no complaints Psychological: nl mood/affect, no complaints Immunologic: no complaints PMH/Family/Social Past Medical History Per HPI Past Surgical History Past Surgical Hx: other Family History Significant Family History: no pertinent family hx Social History Alcohol Use: occasionally Smoking Status: Former smoker Drug Use: none Exam/Review of Systems Vital Signs Vitals Vital Signs Date Time Temp Pulse Resp B/P Pulse Ox O2 Delivery O2 Flow Rate FiO2 03/28/17 16:30 97.8 60 16 116/65 100 Room Air Exam Constitutional: alert, oriented Respiratory: clear to auscultation Cardiovascular: regular rate and rhythm Gastrointestinal: soft, No distended Musculoskeletal: No nl extremities to inspection Labs Result Diagram: 03/28/17 1126 03/28/17 1126 Medications Medications Current Medications Ondansetron HCl (Zofran Inj) 4 mg Q6H PRN IV NAUSEA AND/OR VOMITING; Start at 17:00 Acetaminophen (Tylenol Tab) 650 mg Q6H PRN PO PAIN LEVEL 1-3 OR FEVER; Start at 17:00 Acetaminophen/ Hydrocodone Bitart ([place] (5/325)) 1 tab Q6H PRN PO MODERATE PAIN LEVEL 4-6; Start 03/28/17 at 17:00 Morphine Sulfate (morphine) 2 mg Q4H PRN IV SEVERE PAIN LEVEL 7-10; Start 03/28 at 17:00 Docusate Sodium (Colace) 100 mg Q12H PRN PO CONSTIPATION; Start 03/28/17 at 17: 00 Zolpidem Tartrate (Ambien) 5 mg QHS PRN PO SLEEP; Start 03/28/17 at 17:00 Benazepril HCl (Lotensin) 20 mg BID PO ; Start 03/28/17 at 21:00; Status UNV Metoprolol Tartrate (Lopressor) 25 mg BID PO ; Start 03/28/17 at 21:00; Status UNV Multivit/Ca Carb/ B Cmplx/FA/Prenat ([place]-Cherelle) 1 tab DAILY PO ; Start 03/29/17 at 09:00; Status UNV Miscellaneous Information 5,000 ml TID HE ; Start 03/28/17 at 21:00; Status UNV Miscellaneous Information 40 mg DAILY PO ; Start 03/29/17 at 09:00; Status UNV SHANNAN DELUCA Mar 28, 2017 17:01
[2017-03-28] MEDS: SEVELAMER 800 MG TAB PO SCH (17:24)
[2017-03-28] MEDS: INSULIN ASPART [NOVOLOG] 3 ML PEN SC SCH ×2 (17:24→21:00)
[2017-03-28] MEDS ORDERED: DEXTROSE 50% 50 ML SYRINGE IV PRN ×2 (17:30)
[2017-03-28] MEDS ORDERED: GLUCAGON 1 MG INJ IM PRN (17:30)
[2017-03-28] MEDS ORDERED: GLUCOSE GEL 15 GRAM TUBE PO PRN ×2 (17:30)
[2017-03-28] MEDS ORDERED: GLUCOSE GEL 15 GRAM TUBE BUCCAL PRN (17:30)
[2017-03-28 18:01] VITALS: Ht 167.6 cm; Wt 52.0 kg
--- NOTE | 2017-03-28 18:01 | CONS ---
Date/Time of Note Date/Time of Note DATE: 03/28/17 TIME: 18:01 Assessment/Plan Assessment/Plan Additional Assessment/Plan 1. ESRD on HD 2. Catheter malfunction 3. Hypertension 4. Diabetes melitus Plan : Continue treatment for hyperkalemia is informed by me for catheter replacememnt will plan for HD tomorrow AM labs has been ordered will follow up Consultation Date/Type/Reason Admit Date/Time Mar 28, 2017 at 13:08 Date of Consultation: Mar 28, 2017 Type of Consultation: NEPHROLOGY Reason for Consultation ESRD on HD with cathere malfunction Referring Provider: SHANNAN DELUCA Hx of Present Illness 66-year-old male with a history of hypertension, type 2 diabetes, diabetic foot ulcer, end-stage renal disease on dialysis who was sent from dialysis center for catheter malfunction. He had recent fistula placement as well as catheter exchange approximately 1 week ago. Continues to have issues with his dialysis catheter. Patient has no acute complaints at this time. has been consulted by me . Pt admitted to [facility] floor Eyes: no complaints ENT: no complaints Respiratory: no complaints Cardiovascular: no complaints Gastrointestinal: no complaints Genitourinary: no complaints Musculoskeletal: no complaints Skin: no complaints Neurologic: no complaints Lymphatic: no complaints Psychological: nl mood/affect, no complaints Immunologic: no complaints Past Medical History Medical History: high cholesterol, hypertension, other (ESRD on HD ) Past Surgical History Past Surgical Hx: other (Permcath HD cahtere placement, AVF placement ) Family History Significant Family History: no pertinent family hx Social History Alcohol Use: occasionally Smoking Status: Former smoker Drug Use: none Exam/Review of Systems Vital Signs Vitals Vital Signs Date Time Temp Pulse Resp B/P Pulse Ox O2 Delivery O2 Flow Rate FiO2 03/28/17 16:30 97.8 60 16 116/65 100 Room Air Exam Constitutional: alert Psych: no complaints Head: normocephalic Eyes: nl conjunctiva ENMT: nl external ears & nose Neck: non-tender, supple Respiratory: clear to auscultation, congested cough, diminished breath sounds, normal air movement Cardiovascular: nl pulses Gastrointestinal: non-tender, soft Musculoskeletal: nl extremities to inspection 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, nl mental status, nl speech, nl strength Results Result Diagram: 03/28/17 1126 03/28/17 1126 Results 24 hrs Laboratory Tests Test 03/28/17 11:26 03/28/17 17:12 White Blood Count 12.7 H Red Blood Count 3.25 L Hemoglobin 10.8 L Hematocrit 34.4 L Mean Corpuscular Volume 105.8 H Mean Corpuscular Hemoglobin 33.2 H Mean Corpuscular Hemoglobin Concent 31.4 L Red Cell Distribution Width 17.4 H Platelet Count 429 #H Mean Platelet Volume 10.5 H Neutrophils % 68.6 Lymphocytes % 18.2 Monocytes % 9.2 Eosinophils % 2.6 Basophils % 0.6 Nucleated Red Blood Cells % 0.0 Neutrophils # (Manual) 8.7 H Lymphocytes # 2.3 Monocytes # 1.2 H Eosinophils # 0.3 Basophils # 0.1 Nucleated Red Blood Cells # 0.0 Prothrombin Time 13.8 Prothrombin Time Ratio 1.1 INR International Normalized Ratio 1.06 Activated Partial Thromboplast Time 27.8 Sodium Level 139 Potassium Level 4.8 Chloride Level 94 L Carbon Dioxide Level 24 Anion Gap 26 H Blood Urea Nitrogen 86 H Creatinine 7.90 H Glucose Level 160 Calcium Level 9.3 Phosphorus Level 3.2 Magnesium Level 2.4 Bedside Glucose 102 Medications Medications Current Medications Ondansetron HCl (Zofran Inj) 4 mg Q6H PRN IV NAUSEA AND/OR VOMITING; Start at 17:00 Acetaminophen (Tylenol Tab) 650 mg Q6H PRN PO PAIN LEVEL 1-3 OR FEVER; Start at 17:00 Acetaminophen/ Hydrocodone Bitart ([place] (5/325)) 1 tab Q6H PRN PO MODERATE PAIN LEVEL 4-6; Start 03/28/17 at 17:00 Morphine Sulfate (morphine) 2 mg Q4H PRN IV SEVERE PAIN LEVEL 7-10; Start 03/28 at 17:00 Docusate Sodium (Colace) 100 mg Q12H PRN PO CONSTIPATION; Start 03/28/17 at 17: 00 Zolpidem Tartrate (Ambien) 5 mg QHS PRN PO SLEEP; Start 03/28/17 at 17:00 Benazepril HCl (Lotensin) 20 mg BID PO ; Start 03/28/17 at 21:00 Metoprolol Tartrate (Lopressor) 25 mg BID PO ; Start 03/28/17 at 21:00 Multivit/Ca Carb/ B Cmplx/FA/Prenat ([place]-Cherelle) 1 tab DAILY PO ; Start 03/29/17 at 09:00 Miscellaneous Information 5,000 ml TID HE ; Start 03/28/17 at 21:00; Status UNV Pantoprazole (Protonix Tab) 40 mg DAILY@06 PO ; Start 03/29/17 at 06:00 Diagnostic Test (Pha) (Accu-Chek) 1 ea 02 XX ; Start 03/29/17 at 02:00 Miscellaneous Information 1 ea NOTE XX ; Start 03/28/17 at 17:30 Glucose (Glutose) 15 gm Q15M PRN PO DECREASED GLUCOSE; Start 03/28/17 at 17:30 Glucose (Glutose) 22.5 gm Q15M PRN PO DECREASED GLUCOSE; Start 03/28/17 at 17: 30 Dextrose (D50w Syringe) 25 ml Q15M PRN IV DECREASED GLUCOSE; Start 03/28/17 at 17:30 Dextrose (D50w Syringe) 50 ml Q15M PRN IV DECREASED GLUCOSE; Start 03/28/17 at 17:30 Glucagon (Glucagen) 1 mg Q15M PRN IM DECREASED GLUCOSE; Start 03/28/17 at 17:30 Glucose (Glutose) 15 gm Q15M PRN BUCCAL DECREASED GLUCOSE; Start 03/28/17 at 17 :30 LISA MERRITT MD Mar 28, 2017 18:01
[2017-03-28 20:00] VITALS: BP 160/67; RESP 18
[2017-03-28] MEDS ORDERED: PENDING SANTYL ORDER FOR WOUND CARE XX PRN (20:00)
[2017-03-28] MEDS ORDERED: [UNRECOGNIZED DRUG - REMARK] HE SCH (21:00)
[2017-03-28] MEDS: HYDROCODONE/APAP (5/325) TAB PO PRN (21:57)
[2017-03-28] MEDS: METOPROLOL 25 MG TAB PO SCH (22:03)
[2017-03-28] MEDS: BENAZEPRIL 20 MG TAB PO SCH (22:09)
[2017-03-29] VITALS (13 sets, daily range): BP systolic 92–154; BP diastolic 52–77; PULSE 72–85; RESP 18–19
[2017-03-29] MEDS: ACCU-CHEK XX SCH (00:02)
[2017-03-29] MEDS ORDERED: ACCU-CHEK XX SCH (02:00)
[2017-03-29] MEDS: morphine 2 MG INJ IV PRN ×4 (02:24→20:34)
[2017-03-29] MEDS: PANTOPRAZOLE (EC) 40 MG TAB PO SCH (05:27)
[2017-03-29 05:31] LABS: BASOPHIL # 0.1 10^3/ul (0.0-0.1); BASOPHILS % 0.4 % (0.0-2.0); EOSINOPHILS # 0.4 10^3/ul (0.0-0.5); EOSINOPHILS % 3.7 % (0.0-7.0); HEMATOCRIT 31.4 % (42.0-52.0); HEMOGLOBIN 9.8 g/dl (14.0-18.0); LYMPHOCYTES # 2.8 10^3/ul (0.8-2.9); LYMPHOCYTES % 24.4 % (15.0-51.0); MEAN CORPUSCULAR HGB CONC 31.2 g/dl (32.0-37.0); MEAN CORPUSCULAR VOLUME 105.7 fl (82.0-101.0); MEAN PLATELET VOLUME 10.5 fl (7.4-10.4); MONOCYTE # 1.5 10^3/ul (0.3-0.9); NEUTROPHILS % 58.1 % (39.0-77.0); PLATELET COUNT 420 10^3/UL (140-415); RED BLOOD COUNT 2.97 10^6/ul (4.70-6.10); RED CELL DISTRIBUTION WIDTH 17.4 % (11.5-14.5); WHITE BLOOD COUNT 11.5 10^3/ul (4.8-10.8)
[2017-03-29 06:03] LABS: CALCIUM 8.9 mg/dl (8.4-10.2); CREATININE 9.49 mg/dl (0.61-1.24); MAGNESIUM 2.5 mg/dl (1.7-2.5); PHOSPHORUS 3.7 mg/dl (2.5-4.9)
[2017-03-29 06:26] LABS: POTASSIUM 6.2 mmol/L (3.5-5.1)
[2017-03-29] MEDS ORDERED: NA POLYST SULFON 15 GM/60 ML BTL PO ONE (07:00)
[2017-03-29] MEDS ORDERED: ALBUTEROL/IPRATROPIUM (NEB) 3 ML AMP HHN PRN (07:00)
[2017-03-29] MEDS: INSULIN ASPART [NOVOLOG] 3 ML PEN SC SCH ×4 (08:00→21:00)
[2017-03-29] MEDS: SEVELAMER 800 MG TAB PO SCH ×3 (08:16→20:33)
[2017-03-29] MEDS: MULTIVIT/CA CARB/B CMPLX/FA TAB PO SCH (08:17)
[2017-03-29] MEDS: BENAZEPRIL 20 MG TAB PO SCH ×2 (08:17→20:35)
[2017-03-29] MEDS: METOPROLOL 25 MG TAB PO SCH ×2 (08:18→20:36)
[2017-03-29] MEDS ORDERED: ALTEPLASE (CATHFLO) 2 MG INJ CATHETER PRN (11:00)
--- NOTE | 2017-03-29 14:12 | HP ---
DATE OF ADMISSION: 03/28/2017 Dear Doctors: Mr. Goldsmith is a 66-year-old gentleman known to our vascular surgery service secondary to a history of significant bilateral lower extremity atherosclerosis with gangrene and end- stage renal disease. Of recent, the patient has undergone multiple lower extremity interventions in order to provide adequate limb salvage. At the moment, patient has a left above- knee amputation stump that has healed well, but the right lower extremity patient has gangrene of the 1st, 2nd toe and heel, and also has undergone endovascular intervention for increased perfusion and has developed adequate demarcation of the 1st and 2nd toe. Further, the patient underwent a new left upper extremity brachiocephalic fistula creation that currently has a good bruit and thrill, coming along well and scheduled to have his ricarda removed in the coming days. The patient also was admitted recently and had his right groin perm catheter exchanged, as there were malfunctioning issues and it seems the patient had a new recurrence of malfunction in which Vascular Surgery was consulted for further evaluation. REVIEW OF SYSTEMS: Fourteen point review performed, negative except what was mentioned in HPI. PAST MEDICAL HISTORY: Entails diabetes, hypertension, ex-smoker, cholesterol, bilateral lower extremity atherosclerosis with gangrene, end-stage renal disease, anemia of chronic disease. PAST SURGICAL HISTORY: Left lower extremity revascularizations, left above-knee amputation, multiple perm catheter placements, left upper extremity AV fistula creation, right lower extremity endovascular interventions. FAMILY HISTORY: Positive for diabetes and hypertension. SOCIAL HISTORY: Previous smoker. Denies current tobacco, alcohol or illicit drug use. PHYSICAL EXAMINATION: GENERAL APPEARANCE: Alert, oriented x3. No apparent distress. HEENT: Normocephalic, atraumatic. PERRLA. EOMI. Mucosa moist. NECK: Supple. No carotid bruit. LUNGS: Clear to auscultation bilaterally. No crackles. CARDIOVASCULAR: S1, S2 present. No murmurs. ABDOMEN: Soft, nontender, nondistended. Bowel sounds positive. EXTREMITIES: Lower extremity: Palpable femoral pulse. Nonpalpable pedal pulse. Motor and sensory intact. Capillary refill 3-4 seconds. Gangrene and a full demarcation of the 1st and 2nd toe that is dry, right heel with eschar and gangrene that seem to be superficial. Left lower extremity: Palpable femoral pulse. AKA stump well healed. Capillary refill about 3 seconds. Motor and sensory intact. ASSESSMENT AND PLAN: 1. Bilateral lower extremity atherosclerosis with gangrene: It seems that the patient has been coming along well from the standpoint of his right lower extremity intervention. He has developed adequate 1st and 2nd toe gangrene with adequate demarcation in which we will schedule the patient to undergo toe amputations for now and we will plan to address his right heel eschar and gangrene with applying Santyl and allowing for enzymatic debridement. 2. End-stage renal disease: It seems that the patient's left upper extremity arteriovenous fistula has come along well. It is with adequate bruit and thrill present. We will plan to remove his ricarda in 7 days from now. In regard to his malfunctioning hemodialysis catheter, we will plan to place tPA and re-evaluate if possible for a dialysis session. Otherwise we will plan to have a new perm catheter placed in his right chest area. 3. Discussed vascular optimization (blood pressure meds, diet, nutrition, exercise, sugar control, antiplatelets). 4. Discussed findings, plan and management with the patient and the daughter at the bedside with a certified customer service rep and they understand. Thank you for allowing us to partake in the care of your patient. Please call with any questions. Dictated By: Bradley Quintero MD /juan/farhan /Document#: [id number]
--- NOTE | 2017-03-29 15:42 | PN ---
Date/Time of Note Date/Time of Note DATE: 03/29/17 TIME: 15:40 Assessment/Plan VTE Prophylaxis VTE Prophylaxis Intervention: SCD's Lines/Catheters IV [facility] Saline Lock Urinary Cath still in place: No Assessment/Plan Chief Complaint/Hosp Course 1. End-stage renal disease - Vascular surgery consult appreciated, plan is for TPA of the dialysis access line, and if this does not work will need a new permacath -Nephrology consultation appreciated 2. Diabetes -Sliding-scale 3. Hypertension -Continue home meds 4. Gangrene of the foot -Plan is for amputation during this hospitalization PPX: SCDs Problems: Subjective 24 Hr Interval Summary Constitutional: no complaints Exam/Review of Systems Vital Signs Vitals Vital Signs Date Time Temp Pulse Resp B/P Pulse Ox O2 Delivery O2 Flow Rate FiO2 03/29/17 08:30 98.2 56 18 128/61 100 03/28/17 16:30 Room Air Intake and Output 03/28/17 03/28/17 03/29/17 15:00 23:00 07:00 Intake Total 250 ml 240 ml Balance 250 ml 240 ml Exam Constitutional: alert Respiratory: clear to auscultation Cardiovascular: regular rate and rhythm Gastrointestinal: soft, No distended Musculoskeletal: No nl extremities to inspection Results Result Diagram: 03/29/17 0443 03/29/173 Results 24 hrs Laboratory Tests Test 03/28/17 17:12 03/28/17 21:55 03/29/17 04:43 03/29/17 08:07 Bedside Glucose 102 113 85 White Blood Count 11.5 H Red Blood Count 2.97 L Hemoglobin 9.8 L Hematocrit 31.4 L Mean Corpuscular Volume 105.7 H Mean Corpuscular Hemoglobin 33.0 Mean Corpuscular Hemoglobin Concent 31.2 L Red Cell Distribution Width 17.4 H Platelet Count 420 H Mean Platelet Volume 10.5 H Neutrophils % 58.1 Lymphocytes % 24.4 Monocytes % 13.0 H Eosinophils % 3.7 Basophils % 0.4 Nucleated Red Blood Cells % 0.0 Neutrophils # (Manual) 6.7 Lymphocytes # 2.8 Monocytes # 1.5 H Eosinophils # 0.4 Basophils # 0.1 Nucleated Red Blood Cells # 0.0 Sodium Level 139 Potassium Level 6.2 *H Chloride Level 95 L Carbon Dioxide Level 22 Anion Gap 28 H Blood Urea Nitrogen 100 H Creatinine 9.49 H Glucose Level 89 # Calcium Level 8.9 Phosphorus Level 3.7 Magnesium Level 2.5 Test 03/29/17 11:43 Bedside Glucose 85 Medications Medications Current Medications Ondansetron HCl (Zofran Inj) 4 mg Q6H PRN IV NAUSEA AND/OR VOMITING; Start at 17:00 Acetaminophen (Tylenol Tab) 650 mg Q6H PRN PO PAIN LEVEL 1-3 OR FEVER; Start at 17:00 Acetaminophen/ Hydrocodone Bitart ([place] (5/325)) 1 tab Q6H PRN PO MODERATE PAIN LEVEL 4-6 Last administered on 03/28/17 21:57; Admin Dose 1 TAB; Start at 17:00 Morphine Sulfate (morphine) 2 mg Q4H PRN IV SEVERE PAIN LEVEL 7-10 Last administered on 03/29/17 08:15; Admin Dose 2 MG; Start 03/28/17 at 17:00 Docusate Sodium (Colace) 100 mg Q12H PRN PO CONSTIPATION; Start 03/28/17 at 17: 00 Zolpidem Tartrate (Ambien) 5 mg QHS PRN PO SLEEP; Start 03/28/17 at 17:00 Benazepril HCl (Lotensin) 20 mg BID PO Last administered on 03/29/17 08:17; Admin Dose 20 MG; Start 03/28/17 at 21:00 Metoprolol Tartrate (Lopressor) 25 mg BID PO Last administered on 03/28/17 22: 03; Admin Dose 25 MG; Start 03/28/17 at 21:00 Multivit/Ca Carb/ B Cmplx/FA/Prenat ([place]-Cherelle) 1 tab DAILY PO Last administered on 03/29/17 08:17; Admin Dose 1 TAB; Start 03/29/17 at 09:00 Pantoprazole (Protonix Tab) 40 mg DAILY@06 PO Last administered on 03/29/17 05 :27; Admin Dose 40 MG; Start 03/29/17 at 06:00 Diagnostic Test (Pha) (Accu-Chek) 1 ea 02 XX ; Start 03/29/17 at 02:00 Miscellaneous Information 1 ea NOTE XX ; Start 03/28/17 at 17:30 Glucose (Glutose) 15 gm Q15M PRN PO DECREASED GLUCOSE; Start 03/28/17 at 17:30 Glucose (Glutose) 22.5 gm Q15M PRN PO DECREASED GLUCOSE; Start 03/28/17 at 17: 30 Dextrose (D50w Syringe) 25 ml Q15M PRN IV DECREASED GLUCOSE; Start 03/28/17 at 17:30 Dextrose (D50w Syringe) 50 ml Q15M PRN IV DECREASED GLUCOSE; Start 03/28/17 at 17:30 Glucagon (Glucagen) 1 mg Q15M PRN IM DECREASED GLUCOSE; Start 03/28/17 at 17:30 Glucose (Glutose) 15 gm Q15M PRN BUCCAL DECREASED GLUCOSE; Start 03/28/17 at 17 :30 Miscellaneous Information (Pending Santyl Order For Wound Care) This patient salazar... PRN PRN XX WOUND CARE; Start 03/28/17 at 20:00 SHANNAN DELUCA Mar 29, 2017 15:42
--- NOTE | 2017-03-29 16:50 | CONS ---
Date/Time of Note Date/Time of Note DATE: 03/29/17 TIME: 16:49 Assessment/Plan Assessment/Plan Chief Complaint/Hosp Course 66-year-old male with a history of hypertension, type 2 diabetes, diabetic foot ulcer, end-stage renal disease on dialysis who was sent from dialysis center for catheter malfunction. He had recent fistula placement as well as catheter exchange approximately 1 week ago. Continues to have issues with his dialysis catheter. Patient has no acute complaints at this time. has been consulted by me . Pt admitted to [facility] [place] floor Problems: Additional Assessment/Plan 1. ESRD on HD 2. Catheter malfunction 3. Hypertension 4. Diabetes melitus Plan : Continue treatment for hyperkalemia- kayexalate given today AM s/p tPA incatheter, will try to do HD today if catheter dont work then we will have to change catheter will plan for HD today will follow up Consultation Date/Type/Reason Admit Date/Time Mar 28, 2017 at 13:08 Initial Consult Date 03/28/17 Type of Consultation: NEPHROLOGY Referring Provider: SHANNAN DELUCA 24 HR Interval Summary Free Text/Dictation K high today AM, pt denies complaints Exam/Review of Systems Vital Signs Vitals Vital Signs Date Time Temp Pulse Resp B/P Pulse Ox O2 Delivery O2 Flow Rate FiO2 03/29/17 16:34 75 03/29/17 14:45 16 03/29/17 08:30 98.2 128/61 100 03/28/17 16:30 Room Air Intake and Output 03/28/17 03/28/17 03/29/17 15:00 23:00 07:00 Intake Total 250 ml 240 ml Balance 250 ml 240 ml Exam Constitutional: alert Respiratory: clear to auscultation, congested cough, diminished breath sounds, normal air movement Cardiovascular: nl pulses Gastrointestinal: non-tender, soft Musculoskeletal: nl extremities to inspection 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, nl mental status, nl speech, nl strength Results Result Diagram: 03/29/17 0443 03/29/173 Results 24 hrs Laboratory Tests Test 03/28/17 17:12 03/28/17 21:55 03/29/17 04:43 03/29/17 08:07 Bedside Glucose 102 113 85 White Blood Count 11.5 H Red Blood Count 2.97 L Hemoglobin 9.8 L Hematocrit 31.4 L Mean Corpuscular Volume 105.7 H Mean Corpuscular Hemoglobin 33.0 Mean Corpuscular Hemoglobin Concent 31.2 L Red Cell Distribution Width 17.4 H Platelet Count 420 H Mean Platelet Volume 10.5 H Neutrophils % 58.1 Lymphocytes % 24.4 Monocytes % 13.0 H Eosinophils % 3.7 Basophils % 0.4 Nucleated Red Blood Cells % 0.0 Neutrophils # (Manual) 6.7 Lymphocytes # 2.8 Monocytes # 1.5 H Eosinophils # 0.4 Basophils # 0.1 Nucleated Red Blood Cells # 0.0 Sodium Level 139 Potassium Level 6.2 *H Chloride Level 95 L Carbon Dioxide Level 22 Anion Gap 28 H Blood Urea Nitrogen 100 H Creatinine 9.49 H Glucose Level 89 # Calcium Level 8.9 Phosphorus Level 3.7 Magnesium Level 2.5 Test 03/29/17 11:43 Bedside Glucose 85 Medications Medications Current Medications Ondansetron HCl (Zofran Inj) 4 mg Q6H PRN IV NAUSEA AND/OR VOMITING; Start at 17:00 Acetaminophen (Tylenol Tab) 650 mg Q6H PRN PO PAIN LEVEL 1-3 OR FEVER; Start at 17:00 Acetaminophen/ Hydrocodone Bitart ([place] (5/325)) 1 tab Q6H PRN PO MODERATE PAIN LEVEL 4-6 Last administered on 03/28/17 21:57; Admin Dose 1 TAB; Start at 17:00 Morphine Sulfate (morphine) 2 mg Q4H PRN IV SEVERE PAIN LEVEL 7-10 Last administered on 03/29/17 15:59; Admin Dose 2 MG; Start 03/28/17 at 17:00 Docusate Sodium (Colace) 100 mg Q12H PRN PO CONSTIPATION; Start 03/28/17 at 17: 00 Zolpidem Tartrate (Ambien) 5 mg QHS PRN PO SLEEP; Start 03/28/17 at 17:00 Benazepril HCl (Lotensin) 20 mg BID PO Last administered on 03/29/17 08:17; Admin Dose 20 MG; Start 03/28/17 at 21:00 Metoprolol Tartrate (Lopressor) 25 mg BID PO Last administered on 03/28/17 22: 03; Admin Dose 25 MG; Start 03/28/17 at 21:00 Multivit/Ca Carb/ B Cmplx/FA/Prenat ([place]) 1 tab DAILY PO Last administered on 03/29/17 08:17; Admin Dose 1 TAB; Start 03/29/17 at 09:00 Pantoprazole (Protonix Tab) 40 mg DAILY@06 PO Last administered on 03/29/17 05 :27; Admin Dose 40 MG; Start 03/29/17 at 06:00 Diagnostic Test (Pha) (Accu-Chek) 1 ea 02 XX ; Start 03/29/17 at 02:00 Miscellaneous Information 1 ea NOTE XX ; Start 03/28/17 at 17:30 Glucose (Glutose) 15 gm Q15M PRN PO DECREASED GLUCOSE; Start 03/28/17 at 17:30 Glucose (Glutose) 22.5 gm Q15M PRN PO DECREASED GLUCOSE; Start 03/28/17 at 17: 30 Dextrose (D50w Syringe) 25 ml Q15M PRN IV DECREASED GLUCOSE; Start 03/28/17 at 17:30 Dextrose (D50w Syringe) 50 ml Q15M PRN IV DECREASED GLUCOSE; Start 03/28/17 at 17:30 Glucagon (Glucagen) 1 mg Q15M PRN IM DECREASED GLUCOSE; Start 03/28/17 at 17:30 Glucose (Glutose) 15 gm Q15M PRN BUCCAL DECREASED GLUCOSE; Start 03/28/17 at 17 :30 Miscellaneous Information (Pending [facility] Order For Wound Care) This patient salazar... PRN PRN XX WOUND CARE; Start 03/28/17 at 20:00 LISA MERRITT MD Mar 29, 2017 16:50
[2017-03-30] MEDS: HYDROCODONE/APAP (5/325) TAB PO PRN ×2 (00:03→22:36)
[2017-03-30] MEDS: ACCU-CHEK XX SCH (02:00)
[2017-03-30 02:19] VITALS: BP 116/57; RESP 17
[2017-03-30] MEDS: PANTOPRAZOLE (EC) 40 MG TAB PO SCH (05:42)
[2017-03-30 05:43] LABS: BASOPHIL # 0.1 10^3/ul (0.0-0.1); BASOPHILS % 0.5 % (0.0-2.0); EOSINOPHILS # 0.3 10^3/ul (0.0-0.5); EOSINOPHILS % 3.1 % (0.0-7.0); HEMATOCRIT 30.7 % (42.0-52.0); HEMOGLOBIN 9.8 g/dl (14.0-18.0); LYMPHOCYTES # 2.6 10^3/ul (0.8-2.9); LYMPHOCYTES % 23.9 % (15.0-51.0); MEAN CORPUSCULAR HEMOGLOBIN 33.2 pg (29.0-33.0); MEAN CORPUSCULAR HGB CONC 31.9 g/dl (32.0-37.0); MEAN CORPUSCULAR VOLUME 104.1 fl (82.0-101.0); MEAN PLATELET VOLUME 10.2 fl (7.4-10.4); MONOCYTE # 1.4 10^3/ul (0.3-0.9); MONOCYTES % 12.8 % (0.0-11.0); NEUTROPHILS % 59.2 % (39.0-77.0); PLATELET COUNT 371 10^3/UL (140-415); RED BLOOD COUNT 2.95 10^6/ul (4.70-6.10); WHITE BLOOD COUNT 10.9 10^3/ul (4.8-10.8)
[2017-03-30] MEDS: morphine 2 MG INJ IV PRN ×3 (05:47→20:53)
[2017-03-30 06:31] LABS: CALCIUM 8.7 mg/dl (8.4-10.2); CREATININE 7.09 mg/dl (0.61-1.24); POTASSIUM 5.3 mmol/L (3.5-5.1)
[2017-03-30 08:00] VITALS: BP 140/63; RESP 20
[2017-03-30] MEDS: INSULIN ASPART [NOVOLOG] 3 ML PEN SC SCH ×4 (08:00→20:43)
[2017-03-30] MEDS: MULTIVIT/CA CARB/B CMPLX/FA TAB PO SCH (09:27)
[2017-03-30] MEDS: SEVELAMER 800 MG TAB PO SCH ×3 (09:27→17:50)
[2017-03-30] MEDS: BENAZEPRIL 20 MG TAB PO SCH ×2 (09:27→20:43)
[2017-03-30] MEDS: METOPROLOL 25 MG TAB PO SCH ×2 (09:28→20:43)
--- NOTE | 2017-03-30 13:50 | PN ---
Date/Time of Note Date/Time of Note DATE: 03/30/17 TIME: 13:48 Assessment/Plan VTE Prophylaxis VTE Prophylaxis Intervention: SCD's Lines/Catheters IV [facility]ter Type (from [facility] [place] [facility] Urinary Cath still in place: No Assessment/Plan Chief Complaint/Hosp Course 1. End-stage renal disease - Vascular surgery consult appreciated, s/p TPA of the dialysis access line and will now have HD -Nephrology consultation appreciated 2. Diabetes -Sliding-scale 3. Hypertension -Continue home meds 4. Gangrene of the foot -Plan is for amputation during this hospitalization PPX: SCDs Problems: Subjective 24 Hr Interval Summary Constitutional: no complaints Exam/Review of Systems Vital Signs Vitals Vital Signs Date Time Temp Pulse Resp B/P Pulse Ox O2 Delivery O2 Flow Rate FiO2 03/30/17 12:35 21 03/30/17 08:00 98.6 76 20 140/63 96 03/28/17 16:30 Room Air Intake and Output 03/29/17 03/29/17 03/30/17 15:00 23:00 07:00 Intake Total 1120 ml 560 ml Output Total 2400 ml Balance -1280 ml 560 ml Exam Constitutional: alert Respiratory: clear to auscultation Cardiovascular: regular rate and rhythm Gastrointestinal: soft, No distended Musculoskeletal: nl extremities to inspection Results Result Diagram: 03/30/17 0455 03/30/17 0455 Results 24 hrs Laboratory Tests Test 03/29/17 17:52 03/29/17 20:29 03/30/17 04:55 03/30/17 08:08 Bedside Glucose 147 140 75 White Blood Count 10.9 H Red Blood Count 2.95 L Hemoglobin 9.8 L Hematocrit 30.7 L Mean Corpuscular Volume 104.1 H Mean Corpuscular Hemoglobin 33.2 H Mean Corpuscular Hemoglobin Concent 31.9 L Red Cell Distribution Width 17.0 H Platelet Count 371 Mean Platelet Volume 10.2 Neutrophils % 59.2 Lymphocytes % 23.9 Monocytes % 12.8 H Eosinophils % 3.1 Basophils % 0.5 Nucleated Red Blood Cells % 0.0 Neutrophils # (Manual) 6.5 Lymphocytes # 2.6 Monocytes # 1.4 H Eosinophils # 0.3 Basophils # 0.1 Nucleated Red Blood Cells # 0.0 Sodium Level 135 Potassium Level 5.3 H Chloride Level 93 L Carbon Dioxide Level 26 Anion Gap 21 #H Blood Urea Nitrogen 68 #H Creatinine 7.09 #H Glucose Level 83 Calcium Level 8.7 Test 03/30/17 11:56 Bedside Glucose 73 Medications Medications Current Medications Ondansetron HCl (Zofran Inj) 4 mg Q6H PRN IV NAUSEA AND/OR VOMITING; Start at 17:00 Acetaminophen (Tylenol Tab) 650 mg Q6H PRN PO PAIN LEVEL 1-3 OR FEVER; Start at 17:00 Acetaminophen/ Hydrocodone Bitart ([place] (5/325)) 1 tab Q6H PRN PO MODERATE PAIN LEVEL 4-6 Last administered on 03/30/17 00:03; Admin Dose 1 TAB; Start at 17:00 Morphine Sulfate (morphine) 2 mg Q4H PRN IV SEVERE PAIN LEVEL 7-10 Last administered on 03/30/17 11:06; Admin Dose 2 MG; Start 03/28/17 at 17:00 Docusate Sodium (Colace) 100 mg Q12H PRN PO CONSTIPATION; Start 03/28/17 at 17: 00 Zolpidem Tartrate (Ambien) 5 mg QHS PRN PO SLEEP; Start 03/28/17 at 17:00 Benazepril HCl (Lotensin) 20 mg BID PO Last administered on 03/30/17 09:27; Admin Dose 20 MG; Start 03/28/17 at 21:00 Metoprolol Tartrate (Lopressor) 25 mg BID PO Last administered on 03/30/17 09: 28; Admin Dose 25 MG; Start 03/28/17 at 21:00 Multivit/Ca Carb/ B Cmplx/FA/Prenat ([place]) 1 tab DAILY PO Last administered on 03/30/17 09:27; Admin Dose 1 TAB; Start 03/29/17 at 09:00 Pantoprazole (Protonix Tab) 40 mg DAILY@06 PO Last administered on 03/30/17 05 :42; Admin Dose 40 MG; Start 03/29/17 at 06:00 Diagnostic Test (Pha) (Accu-Chek) 1 ea 02 XX ; Start 03/29/17 at 02:00 Miscellaneous Information 1 ea NOTE XX ; Start 03/28/17 at 17:30 Glucose (Glutose) 15 gm Q15M PRN PO DECREASED GLUCOSE; Start 03/28/17 at 17:30 Glucose (Glutose) 22.5 gm Q15M PRN PO DECREASED GLUCOSE; Start 03/28/17 at 17: 30 Dextrose (D50w Syringe) 25 ml Q15M PRN IV DECREASED GLUCOSE; Start 03/28/17 at 17:30 Dextrose (D50w Syringe) 50 ml Q15M PRN IV DECREASED GLUCOSE; Start 03/28/17 at 17:30 Glucagon (Glucagen) 1 mg Q15M PRN IM DECREASED GLUCOSE; Start 03/28/17 at 17:30 Glucose (Glutose) 15 gm Q15M PRN BUCCAL DECREASED GLUCOSE; Start 03/28/17 at 17 :30 [facility] This patient salazar... PRN PRN XX WOUND CARE; Start 03/28/17 at 20:00 SHANNAN DELUCA Mar 30, 2017 13:50
[2017-03-30 14:00] VITALS: BP 132/63; RESP 18
--- NOTE | 2017-03-30 17:09 | CONS ---
Date/Time of Note Date/Time of Note DATE: 03/30/17 TIME: 17:07 Assessment/Plan Assessment/Plan Additional Assessment/Plan 1. ESRD on HD 2. Catheter malfunction 3. Hypertension 4. Diabetes melitus Plan : K 5.3 today Mely to change catheter today HD ordered for tomorrow will follow up Consultation Date/Type/Reason Admit Date/Time Mar 28, 2017 at 13:08 Initial Consult Date 03/28/17 Type of Consultation: NEPHROLOGY Referring Provider: SHANNAN DELUCA Exam/Review of Systems Vital Signs Vitals Vital Signs Date Time Temp Pulse Resp B/P Pulse Ox O2 Delivery O2 Flow Rate FiO2 03/30/17 14:00 98.6 80 18 132/63 96 03/30/17 12:35 21 03/28/17 16:30 Room Air Intake and Output 03/29/17 03/29/17 03/30/17 15:00 23:00 07:00 Intake Total 1120 ml 560 ml Output Total 2400 ml Balance -1280 ml 560 ml Exam Constitutional: alert Respiratory: clear to auscultation, congested cough, diminished breath sounds, normal air movement Cardiovascular: nl pulses Gastrointestinal: non-tender, soft Musculoskeletal: nl extremities to inspection Neurological: INSPECTOR RAW QUARTZ II-XII intact, nl mental status, nl speech, nl strength Results Result Diagram: 03/30/17 0455 03/30/17 0455 Results 24 hrs Laboratory Tests Test 03/29/17 17:52 03/29/17 20:29 03/30/17 04:55 03/30/17 08:08 Bedside Glucose 147 140 75 White Blood Count 10.9 H Red Blood Count 2.95 L Hemoglobin 9.8 L Hematocrit 30.7 L Mean Corpuscular Volume 104.1 H Mean Corpuscular Hemoglobin 33.2 H Mean Corpuscular Hemoglobin Concent 31.9 L Red Cell Distribution Width 17.0 H Platelet Count 371 Mean Platelet Volume 10.2 Neutrophils % 59.2 Lymphocytes % 23.9 Monocytes % 12.8 H Eosinophils % 3.1 Basophils % 0.5 Nucleated Red Blood Cells % 0.0 Neutrophils # (Manual) 6.5 Lymphocytes # 2.6 Monocytes # 1.4 H Eosinophils # 0.3 Basophils # 0.1 Nucleated Red Blood Cells # 0.0 Sodium Level 135 Potassium Level 5.3 H Chloride Level 93 L Carbon Dioxide Level 26 Anion Gap 21 #H Blood Urea Nitrogen 68 #H Creatinine 7.09 #H Glucose Level 83 Calcium Level 8.7 Test 03/30/17 11:56 Bedside Glucose 73 Medications Medications Current Medications Ondansetron HCl (Zofran Inj) 4 mg Q6H PRN IV NAUSEA AND/OR VOMITING; Start at 17:00 Acetaminophen (Tylenol Tab) 650 mg Q6H PRN PO PAIN LEVEL 1-3 OR FEVER; Start at 17:00 Acetaminophen/ Hydrocodone Bitart ([place] (5/325)) 1 tab Q6H PRN PO MODERATE PAIN LEVEL 4-6 Last administered on 03/30/17 00:03; Admin Dose 1 TAB; Start at 17:00 Morphine Sulfate (morphine) 2 mg Q4H PRN IV SEVERE PAIN LEVEL 7-10 Last administered on 03/30/17 11:06; Admin Dose 2 MG; Start 03/28/17 at 17:00 Docusate Sodium (Colace) 100 mg Q12H PRN PO CONSTIPATION; Start 03/28/17 at 17: 00 Zolpidem Tartrate (Ambien) 5 mg QHS PRN PO SLEEP; Start 03/28/17 at 17:00 Benazepril HCl (Lotensin) 20 mg BID PO Last administered on 03/30/17 09:27; Admin Dose 20 MG; Start 03/28/17 at 21:00 Metoprolol Tartrate (Lopressor) 25 mg BID PO Last administered on 03/30/17 09: 28; Admin Dose 25 MG; Start 03/28/17 at 21:00 Multivit/Ca Carb/ B Cmplx/FA/Prenat ([place]) 1 tab DAILY PO Last administered on 03/30/17 09:27; Admin Dose 1 TAB; Start 03/29/17 at 09:00 Pantoprazole (Protonix Tab) 40 mg DAILY@06 PO Last administered on 03/30/17 05 :42; Admin Dose 40 MG; Start 03/29/17 at 06:00 Diagnostic Test (Pha) (Accu-Chek) 1 ea 02 XX ; Start 03/29/17 at 02:00 Miscellaneous Information 1 ea NOTE XX ; Start 03/28/17 at 17:30 Glucose (Glutose) 15 gm Q15M PRN PO DECREASED GLUCOSE; Start 03/28/17 at 17:30 Glucose (Glutose) 22.5 gm Q15M PRN PO DECREASED GLUCOSE; Start 03/28/17 at 17: 30 Dextrose (D50w Syringe) 25 ml Q15M PRN IV DECREASED GLUCOSE; Start 03/28/17 at 17:30 Dextrose (D50w Syringe) 50 ml Q15M PRN IV DECREASED GLUCOSE; Start 03/28/17 at 17:30 Glucagon (Glucagen) 1 mg Q15M PRN IM DECREASED GLUCOSE; Start 03/28/17 at 17:30 Glucose (Glutose) 15 gm Q15M PRN BUCCAL DECREASED GLUCOSE; Start 03/28/17 at 17 :30 Miscellaneous Information This patient salazar... PRN PRN XX WOUND CARE; Start 03/28 at 20:00 Dextrose/Sodium Chloride (D5-1/2ns) 1,000 ml @ 50 mls/hr Q20H IV ; Start at 00:00 LISA MERRITT MD Mar 30, 2017 17:09
[2017-03-30] MEDS ORDERED: NA POLYST SULFON 15 GM/60 ML BTL PR ONE (19:30)
[2017-03-30] MEDS ORDERED: NA POLYST SULFON 15 GM/60 ML BTL PO ONE (20:30)
[2017-03-30 20:33] VITALS: BP_SYST 114; BP_SYST 145; BP_SYST 165; BP_DIAS 65; BP_DIAS 72; BP_DIAS 73; RESP 18
[2017-03-30 21:07] VITALS: BP 154/66; RESP 18
[2017-03-31] VITALS (12 sets, daily range): BP systolic 103–134; BP diastolic 43–84; PULSE 65–70; RESP 18–20
[2017-03-31] MEDS ORDERED: DEXTROSE 5%-0.45% NACL 1,000 ML IV SCH
--- NOTE | 2017-03-31 01:30 | CONS ---
Date/Time of Note Date/Time of Note DATE: 03/30/17 TIME: 10:28 Assessment/Plan Assessment/Plan Problems: (1) Gangrene of toe of right foot (2) CKD (chronic kidney disease) Status: Acute Qualifiers: Qualified Code: N18.9 - Chronic kidney disease, unspecified CKD stage (3) Dialysis catheter clot or failure Status: Acute Additional Assessment/Plan Patient to get vascular clearance; will be scheduled for amputation of his right hallux, second and partial third toes. Thank you again for involving me in the care of this patient. If you have any questions regarding this case, please feel free to contact me at pager: or reach me at mobile: [phone]. Consultation Date/Type/Reason Admit Date/Time Mar 28, 2017 at 13:08 Constitutional: no complaints Eyes: no complaints ENT: no complaints Respiratory: no complaints Cardiovascular: no complaints Gastrointestinal: no complaints Genitourinary: no complaints Musculoskeletal: no complaints Skin: no complaints Neurologic: no complaints Lymphatic: no complaints Psychological: no complaints Immunologic: no complaints Past Medical History Medical History: high cholesterol, hypertension, other (ESRD on HD ) Past Surgical History Past Surgical Hx: other (Permcath HD cahtere placement, AVF placement ) Social History Alcohol Use: occasionally Smoking Status: Former smoker Drug Use: none Exam/Review of Systems Vital Signs Vitals Vital Signs Date Time Temp Pulse Resp B/P Pulse Ox O2 Delivery O2 Flow Rate FiO2 03/30/17 21:07 98.0 87 18 154/66 94 03/30/17 12:35 21 03/28/17 16:30 Room Air Intake and Output 03/30/17 03/30/17 03/31/17 15:00 23:00 07:00 Intake Total 600 ml Balance 600 ml Results Result Diagram: 03/30/17 0455 03/30/17 0455 Results 24 hrs Laboratory Tests Test 03/30/17 04:55 03/30/17 08:08 03/30/17 11:56 03/30/17 17:24 White Blood Count 10.9 H Red Blood Count 2.95 L Hemoglobin 9.8 L Hematocrit 30.7 L Mean Corpuscular Volume 104.1 H Mean Corpuscular Hemoglobin 33.2 H Mean Corpuscular Hemoglobin Concent 31.9 L Red Cell Distribution Width 17.0 H Platelet Count 371 Mean Platelet Volume 10.2 Neutrophils % 59.2 Lymphocytes % 23.9 Monocytes % 12.8 H Eosinophils % 3.1 Basophils % 0.5 Nucleated Red Blood Cells % 0.0 Neutrophils # (Manual) 6.5 Lymphocytes # 2.6 Monocytes # 1.4 H Eosinophils # 0.3 Basophils # 0.1 Nucleated Red Blood Cells # 0.0 Sodium Level 135 Potassium Level 5.3 H Chloride Level 93 L Carbon Dioxide Level 26 Anion Gap 21 #H Blood Urea Nitrogen 68 #H Creatinine 7.09 #H Glucose Level 83 Calcium Level 8.7 Bedside Glucose 75 73 82 Test 03/30/17 20:19 Bedside Glucose 93 Medications Medications Current Medications Ondansetron HCl (Zofran Inj) 4 mg Q6H PRN IV NAUSEA AND/OR VOMITING; Start at 17:00 Acetaminophen (Tylenol Tab) 650 mg Q6H PRN PO PAIN LEVEL 1-3 OR FEVER; Start at 17:00 Acetaminophen/ Hydrocodone Bitart ([place] (5/325)) 1 tab Q6H PRN PO MODERATE PAIN LEVEL 4-6 Last administered on 03/30/17 22:36; Admin Dose 1 TAB; Start at 17:00 Morphine Sulfate (morphine) 2 mg Q4H PRN IV SEVERE PAIN LEVEL 7-10 Last administered on 03/30/17 20:53; Admin Dose 2 MG; Start 03/28/17 at 17:00 Docusate Sodium (Colace) 100 mg Q12H PRN PO CONSTIPATION; Start 03/28/17 at 17: 00 Zolpidem Tartrate (Ambien) 5 mg QHS PRN PO SLEEP; Start 03/28/17 at 17:00 Benazepril HCl (Lotensin) 20 mg BID PO Last administered on 03/30/17 20:43; Admin Dose 20 MG; Start 03/28/17 at 21:00 Metoprolol Tartrate (Lopressor) 25 mg BID PO Last administered on 03/30/17 20: 43; Admin Dose 25 MG; Start 03/28/17 at 21:00 Multivit/Ca Carb/ B Cmplx/FA/Prenat ([place]) 1 tab DAILY PO Last administered on 03/30/17 09:27; Admin Dose 1 TAB; Start 03/29/17 at 09:00 Pantoprazole (Protonix Tab) 40 mg DAILY@06 PO Last administered on 03/30/17 05 :42; Admin Dose 40 MG; Start 03/29/17 at 06:00 Diagnostic Test (Pha) (Accu-Chek) 1 ea 02 XX ; Start 03/29/17 at 02:00 Miscellaneous Information 1 ea NOTE XX ; Start 03/28/17 at 17:30 Glucose (Glutose) 15 gm Q15M PRN PO DECREASED GLUCOSE; Start 03/28/17 at 17:30 Glucose (Glutose) 22.5 gm Q15M PRN PO DECREASED GLUCOSE; Start 03/28/17 at 17: 30 Dextrose (D50w Syringe) 25 ml Q15M PRN IV DECREASED GLUCOSE; Start 03/28/17 at 17:30 Dextrose (D50w Syringe) 50 ml Q15M PRN IV DECREASED GLUCOSE; Start 03/28/17 at 17:30 Glucagon (Glucagen) 1 mg Q15M PRN IM DECREASED GLUCOSE; Start 03/28/17 at 17:30 Glucose (Glutose) 15 gm Q15M PRN BUCCAL DECREASED GLUCOSE; Start 03/28/17 at 17 :30 Miscellaneous Information This patient salazar... PRN PRN XX WOUND CARE; Start 03/28 at 20:00 Dextrose/Sodium Chloride (D5-1/2ns) 1,000 ml @ 50 mls/hr Q20H IV Last administered on 03/31/17 00:01; Admin Dose 50 MLS/HR; Start 03/31/17 at 00:00 CHAU BRANCH DPM Mar 31, 2017 01:30
[2017-03-31] MEDS: ACCU-CHEK XX SCH (02:00)
[2017-03-31] MEDS: PANTOPRAZOLE (EC) 40 MG TAB PO SCH (06:00)
[2017-03-31 06:35] LABS: BASOPHILS % 0.3 % (0.0-2.0); EOSINOPHILS # 0.4 10^3/ul (0.0-0.5); HEMATOCRIT 28.3 % (42.0-52.0); HEMOGLOBIN 9.1 g/dl (14.0-18.0); LYMPHOCYTES # 2.6 10^3/ul (0.8-2.9); MEAN CORPUSCULAR HEMOGLOBIN 32.9 pg (29.0-33.0); MEAN CORPUSCULAR HGB CONC 32.2 g/dl (32.0-37.0); MEAN CORPUSCULAR VOLUME 102.2 fl (82.0-101.0); MEAN PLATELET VOLUME 10.4 fl (7.4-10.4); MONOCYTE # 1.3 10^3/ul (0.3-0.9); MONOCYTES % 12.7 % (0.0-11.0); NEUTROPHILS % 57.6 % (39.0-77.0); PLATELET COUNT 372 10^3/UL (140-415); RED BLOOD COUNT 2.77 10^6/ul (4.70-6.10); RED CELL DISTRIBUTION WIDTH 16.8 % (11.5-14.5); WHITE BLOOD COUNT 10.6 10^3/ul (4.8-10.8)
[2017-03-31 07:07] LABS: CALCIUM 8.6 mg/dl (8.4-10.2); POTASSIUM 5.5 mmol/L (3.5-5.1)
[2017-03-31] MEDS: SEVELAMER 800 MG TAB PO SCH ×3 (07:35→16:50)
[2017-03-31 07:41] LABS: CREATININE 8.77 mg/dl (0.61-1.24)
[2017-03-31] MEDS: INSULIN ASPART [NOVOLOG] 3 ML PEN SC SCH ×4 (07:55→21:00)
[2017-03-31] MEDS: morphine 2 MG INJ IV PRN ×3 (07:56→23:45)
[2017-03-31] MEDS: BENAZEPRIL 20 MG TAB PO SCH ×2 (09:00→23:37)
[2017-03-31] MEDS: MULTIVIT/CA CARB/B CMPLX/FA TAB PO SCH (09:00)
[2017-03-31] MEDS: METOPROLOL 25 MG TAB PO SCH ×2 (09:00→23:37)
--- NOTE | 2017-03-31 09:16 | CONS ---
Date/Time of Note Date/Time of Note DATE: 03/31/17 TIME: 09:14 Assessment/Plan Assessment/Plan Additional Assessment/Plan 1. ESRD on HD 2. Catheter malfunction 3. Hypertension 4. Diabetes melitus 5. hyperkalemia due to inadequate/missed HD due to non functioning HD catheter Plan : K 5.5 today- pt is NPO for procedure today, will plan for HD after catheter exchange Mely to change catheter today HD ordered for today after New catheter placement will follow up Consultation Date/Type/Reason Admit Date/Time Mar 30, 2017 at 16:05 Initial Consult Date 03/28/17 Type of Consultation: NEPHROLOGY Referring Provider: SHANNAN DELUCA 24 HR Interval Summary Free Text/Dictation pt remained stable, Plan for Permcath exchange, K 5.5, Na low Exam/Review of Systems Vital Signs Vitals Vital Signs Date Time Temp Pulse Resp B/P Pulse Ox O2 Delivery O2 Flow Rate FiO2 03/31/17 02:50 98.6 54 18 134/60 99 03/30/17 12:35 21 03/28/17 16:30 Room Air Intake and Output 03/30/17 03/30/17 03/31/17 15:00 23:00 07:00 Intake Total 600 ml 370 ml Output Total 0 ml Balance 600 ml 370 ml Exam Constitutional: alert Respiratory: clear to auscultation, congested cough, diminished breath sounds, normal air movement Cardiovascular: nl pulses Gastrointestinal: non-tender, soft Musculoskeletal: nl extremities to inspection Neurological: CONVENTIONS RESERVATIONIST II-XII intact, nl mental status, nl speech, nl strength Results Result Diagram: 03/31/17 0500 03/31/17 0500 Results 24 hrs Laboratory Tests Test 03/30/17 11:56 03/30/17 17:24 03/30/17 20:19 03/31/17 05:00 Bedside Glucose 73 82 93 White Blood Count 10.6 Red Blood Count 2.77 L Hemoglobin 9.1 L Hematocrit 28.3 L Mean Corpuscular Volume 102.2 H Mean Corpuscular Hemoglobin 32.9 Mean Corpuscular Hemoglobin Concent 32.2 Red Cell Distribution Width 16.8 H Platelet Count 372 Mean Platelet Volume 10.4 Neutrophils % 57.6 Lymphocytes % 25.0 Monocytes % 12.7 H Eosinophils % 4.0 Basophils % 0.3 Nucleated Red Blood Cells % 0.0 Neutrophils # (Manual) 6.1 Lymphocytes # 2.6 Monocytes # 1.3 H Eosinophils # 0.4 Basophils # 0.0 Nucleated Red Blood Cells # 0.0 Sodium Level 131 L Potassium Level 5.5 H Chloride Level 88 L Carbon Dioxide Level 26 Anion Gap 23 H Blood Urea Nitrogen 94 H Creatinine 8.77 H Glucose Level 79 Calcium Level 8.6 Test 03/31/17 07:55 Bedside Glucose 83 Medications Medications Current Medications Ondansetron HCl (Zofran Inj) 4 mg Q6H PRN IV NAUSEA AND/OR VOMITING; Start at 17:00 Acetaminophen (Tylenol Tab) 650 mg Q6H PRN PO PAIN LEVEL 1-3 OR FEVER; Start at 17:00 Acetaminophen/ Hydrocodone Bitart ([place] (5/325)) 1 tab Q6H PRN PO MODERATE PAIN LEVEL 4-6 Last administered on 03/30/17 22:36; Admin Dose 1 TAB; Start at 17:00 Morphine Sulfate (morphine) 2 mg Q4H PRN IV SEVERE PAIN LEVEL 7-10 Last administered on 03/31/17 07:56; Admin Dose 2 MG; Start 03/28/17 at 17:00 Docusate Sodium (Colace) 100 mg Q12H PRN PO CONSTIPATION; Start 03/28/17 at 17: 00 Zolpidem Tartrate (Ambien) 5 mg QHS PRN PO SLEEP; Start 03/28/17 at 17:00 Benazepril HCl (Lotensin) 20 mg BID PO Last administered on 03/30/17 20:43; Admin Dose 20 MG; Start 03/28/17 at 21:00 Metoprolol Tartrate (Lopressor) 25 mg BID PO Last administered on 03/30/17 20: 43; Admin Dose 25 MG; Start 03/28/17 at 21:00 Multivit/Ca Carb/ B Cmplx/FA/Prenat ([place]) 1 tab DAILY PO Last administered on 03/30/17 09:27; Admin Dose 1 TAB; Start 03/29/17 at 09:00 Pantoprazole (Protonix Tab) 40 mg DAILY@06 PO Last administered on 03/30/17 05 :42; Admin Dose 40 MG; Start 03/29/17 at 06:00 Diagnostic Test (Pha) (Accu-Chek) 1 ea 02 XX ; Start 03/29/17 at 02:00 Miscellaneous Information 1 ea NOTE XX ; Start 03/28/17 at 17:30 Glucose (Glutose) 15 gm Q15M PRN PO DECREASED GLUCOSE; Start 03/28/17 at 17:30 Glucose (Glutose) 22.5 gm Q15M PRN PO DECREASED GLUCOSE; Start 03/28/17 at 17: 30 Dextrose (D50w Syringe) 25 ml Q15M PRN IV DECREASED GLUCOSE; Start 03/28/17 at 17:30 Dextrose (D50w Syringe) 50 ml Q15M PRN IV DECREASED GLUCOSE; Start 03/28/17 at 17:30 Glucagon (Glucagen) 1 mg Q15M PRN IM DECREASED GLUCOSE; Start 03/28/17 at 17:30 Glucose (Glutose) 15 gm Q15M PRN BUCCAL DECREASED GLUCOSE; Start 03/28/17 at 17 :30 Miscellaneous Information This patient salazar... PRN PRN XX WOUND CARE; Start 03/28 at 20:00 Dextrose/Sodium Chloride (D5-1/2ns) 1,000 ml @ 50 mls/hr Q20H IV Last administered on 03/31/17t 00:01; Admin Dose 50 MLS/HR; Start 03/31/17 at 00:00 LISA MERRITT MD Mar 31, 2017 09:16
[2017-03-31] MEDS ORDERED: NA POLYST SULFON 15 GM/60 ML BTL PO ONE (09:30)
--- NOTE | 2017-03-31 12:26 | RADRPT ---
PROCEDURE: XR Chest. CLINICAL INDICATION: Preoperative. TECHNIQUE: Single frontal view. COMPARISON: 12/20/2016. FINDINGS: There is mild left basilar atelectasis. The lungs are otherwise clear. The heart size is normal. There is calcification in the aorta consistent with atherosclerosis. The re is a dialysis catheter entering via a femoral approach with the tip in the lower right atrium. There is no pleural effusion. There is no pneumothorax. IMPRESSION: 1. Mild left basilar atelectasis. 2. Atherosclerosis. 3. Dialysis catheter tip in the lower right atrium. RPTAT: QQ .Rick Tomlin MD, MD Date Time Electronically viewed and signed by .Rick Tomlin MD, on 03/31/2017 12:26 .R/
--- NOTE | 2017-03-31 16:41 | PN ---
Date/Time of Note Date/Time of Note DATE: 03/31/17 TIME: 16:35 Assessment/Plan Lines/Catheters IV Catheter Type (from Nrs): Peripheral IV Correa in Place (from Nrs): No Assessment/Plan Chief Complaint/Hosp Course -Bilateral lower extremity atherosclerosis with gangrene: It seems that the patient has been coming along well from the standpoint of his right lower extremity toe gangrene. He has developed adequate 1st and 2nd toe gangrene with adequate demarcation in which we will schedule the patient to undergo toe amputations for now and we will plan to address his right heel eschar and gangrene with applying Santyl and allowing for enzymatic debridement. -He mentioned today development of new RLE rest pain and hanging his foot off the bed. Will obtain new ultrasound -End-stage renal disease: S/P LUE brachiocephalic fistula. Will schedule for new perm catheter placement -Discussed vascular optimization (blood pressure meds, diet, nutrition, exercise , sugar control, antiplatelets). -Discussed findings, plan and management with the patient and the daughter at the bedside with a certified clinical operations specialist and they understand. -Thank you for allowing us to partake in the care of your patient. Please call with any questions. Problems: Subjective 24 Hr Interval Summary no new vascular events overnight. New complaint of LE rest pain Exam/Review of Systems Vital Signs Vitals Vital Signs Date Time Temp Pulse Resp B/P Pulse Ox O2 Delivery O2 Flow Rate FiO2 03/31/17 15:38 98.8 76 18 134/62 98 03/30/17 12:35 21 03/28/17 16:30 Room Air Intake and Output 03/30/17 03/30/17 03/31/17 14:59 22:59 06:59 Intake Total 600 ml 370 ml Output Total 0 ml Balance 600 ml 370 ml Exam Free Text/Dictation GENERAL APPEARANCE: Alert, oriented x3. LUNGS: Clear to auscultation bilaterally. CARDIOVASCULAR: S1, S2 present ABDOMEN: Soft, nontender, nondistended. Bowel sounds positive. EXTREMITIES: -Right Lower extremity: Palpable femoral pulse. Nonpalpable pedal pulse. Motor and sensory intact. Capillary refill 3-4 seconds. Gangrene and full demarcation of the 1st and 2nd toe that is dry, right heel with eschar and gangrene that seem to be superficial. -Left lower extremity: Palpable femoral pulse. AKA stump well healed. Capillary refill about 3 seconds. Motor and sensory intact. Results Result Diagram: 03/31/17 0500 03/31/17 0500 CYNDI CARR MD Mar 31, 2017 16:41
[2017-03-31] MEDS ORDERED: LIDOCAINE 1% (MDV) 20 ML INJ ONE ×2 (17:05→17:11)
[2017-03-31] MEDS ORDERED: SOD CHLORIDE 0.9% 500 ML ONE (17:06)
[2017-03-31] MEDS ORDERED: HEPARIN 1000 UNITS/ML 10 ML INJ ONE (17:11)
--- NOTE | 2017-03-31 17:40 | PN ---
Date/Time of Note Date/Time of Note DATE: 03/31/17 TIME: 17:39 Assessment/Plan VTE Prophylaxis VTE Prophylaxis Intervention: SCD's Lines/Catheters IV [facility] Type (from [facility]): Peripheral IV Urinary Cath still in place: No Assessment/Plan Chief Complaint/Hosp Course 1. End-stage renal disease - Vascular surgery consult appreciated, s/p TPA of the dialysis access line and will now have HD -Nephrology consultation appreciated 2. Diabetes -Sliding-scale 3. Hypertension -Continue home meds 4. Gangrene of the foot -Plan is for amputation today PPX: SCDs Problems: Subjective 24 Hr Interval Summary Constitutional: no complaints Exam/Review of Systems Vital Signs Vitals Vital Signs Date Time Temp Pulse Resp B/P Pulse Ox O2 Delivery O2 Flow Rate FiO2 03/31/17 15:38 98.8 76 18 134/62 98 03/30/17 12:35 21 03/28/17 16:30 Room Air Intake and Output 03/30/17 03/30/17 03/31/17 15:00 23:00 07:00 Intake Total 600 ml 370 ml Output Total 0 ml Balance 600 ml 370 ml Exam Constitutional: alert, oriented Respiratory: clear to auscultation Cardiovascular: regular rate and rhythm Gastrointestinal: soft, No distended Musculoskeletal: No nl extremities to inspection Results Result Diagram: 03/31/17 0500 03/31/17 0500 Results 24 hrs Laboratory Tests Test 03/30/17 20:19 03/31/17 05:00 03/31/17 07:55 03/31/17 11:51 Bedside Glucose 93 83 98 White Blood Count 10.6 Red Blood Count 2.77 L Hemoglobin 9.1 L Hematocrit 28.3 L Mean Corpuscular Volume 102.2 H Mean Corpuscular Hemoglobin 32.9 Mean Corpuscular Hemoglobin Concent 32.2 Red Cell Distribution Width 16.8 H Platelet Count 372 Mean Platelet Volume 10.4 Neutrophils % 57.6 Lymphocytes % 25.0 Monocytes % 12.7 H Eosinophils % 4.0 Basophils % 0.3 Nucleated Red Blood Cells % 0.0 Neutrophils # (Manual) 6.1 Lymphocytes # 2.6 Monocytes # 1.3 H Eosinophils # 0.4 Basophils # 0.0 Nucleated Red Blood Cells # 0.0 Sodium Level 131 L Potassium Level 5.5 H Chloride Level 88 L Carbon Dioxide Level 26 Anion Gap 23 H Blood Urea Nitrogen 94 H Creatinine 8.77 H Glucose Level 79 Calcium Level 8.6 Test 03/31/17 16:56 Bedside Glucose 77 Medications Medications Current Medications Ondansetron HCl (Zofran Inj) 4 mg Q6H PRN IV NAUSEA AND/OR VOMITING; Start at 17:00 Acetaminophen (Tylenol Tab) 650 mg Q6H PRN PO PAIN LEVEL 1-3 OR FEVER; Start at 17:00 Acetaminophen/ Hydrocodone Bitart ([place] (5/325)) 1 tab Q6H PRN PO MODERATE PAIN LEVEL 4-6 Last administered on 03/30/17 22:36; Admin Dose 1 TAB; Start at 17:00 Morphine Sulfate (morphine) 2 mg Q4H PRN IV SEVERE PAIN LEVEL 7-10 Last administered on 03/31/17 13:21; Admin Dose 2 MG; Start 03/28/17 at 17:00 Docusate Sodium (Colace) 100 mg Q12H PRN PO CONSTIPATION; Start 03/28/17 at 17: 00 Zolpidem Tartrate (Ambien) 5 mg QHS PRN PO SLEEP; Start 03/28/17 at 17:00 Benazepril HCl (Lotensin) 20 mg BID PO Last administered on 03/30/17 20:43; Admin Dose 20 MG; Start 03/28/17 at 21:00 Metoprolol Tartrate (Lopressor) 25 mg BID PO Last administered on 03/30/17 20: 43; Admin Dose 25 MG; Start 03/28/17 at 21:00 Multivit/Ca Carb/ B Cmplx/FA/Prenat ([place]herelle) 1 tab DAILY PO Last administered on 03/30/17 09:27; Admin Dose 1 TAB; Start 03/29/17 at 09:00 Pantoprazole (Protonix Tab) 40 mg DAILY@06 PO Last administered on 03/30/17 05 :42; Admin Dose 40 MG; Start 03/29/17 at 06:00 Diagnostic Test (Pha) (Accu-Chek) 1 ea 02 XX ; Start 03/29/17 at 02:00 Miscellaneous Information 1 ea NOTE XX ; Start 03/28/17 at 17:30 Glucose (Glutose) 15 gm Q15M PRN PO DECREASED GLUCOSE; Start 03/28/17 at 17:30 Glucose (Glutose) 22.5 gm Q15M PRN PO DECREASED GLUCOSE; Start 03/28/17 at 17: 30 Dextrose (D50w Syringe) 25 ml Q15M PRN IV DECREASED GLUCOSE; Start 03/28/17 at 17:30 Dextrose (D50w Syringe) 50 ml Q15M PRN IV DECREASED GLUCOSE; Start 03/28/17 at 17:30 Glucagon (Glucagen) 1 mg Q15M PRN IM DECREASED GLUCOSE; Start 03/28/17 at 17:30 Glucose (Glutose) 15 gm Q15M PRN BUCCAL DECREASED GLUCOSE; Start 03/28/17 at 17 :30 Miscellaneous Information This patient salazar... PRN PRN XX WOUND CARE; Start 03/28 at 20:00 Dextrose/Sodium Chloride (D5-1/2ns) 1,000 ml @ 50 mls/hr Q20H IV Last administered on 03/31/17t 00:01; Admin Dose 50 MLS/HR; Start 03/31/17 at 00:00 SHANNAN DELUCA Mar 31, 2017 17:40
--- NOTE | 2017-03-31 19:25 | RADRPT ---
PROCEDURE: PLACEMENT RIGHT COMMON FEMORAL VEIN TUNNELED DIALYSIS CATHETER. CLINICAL INDICATION: Renal failure. The existing right common femoral vein tunneled dialysis cathete r is not functioning. TECHNIQUE: Informed consent was obtained. Risks including bleeding and infection were explained to the patient. The patient understood and was willing to proceed. A procedural pause was performed. The patient's name, date of , and procedure to be performed were verified. The central line was inserted with all elements of maximal sterile barrier technique. All of the following were used: head covering, f acial mask, sterile gown, sterile gloves, a large sterile sheet, hand hygiene, and 2% chlorhexidine for cutaneous antisepsis. The right groin and right the upper thigh were prepped and draped in usu al sterile fashion. Following the local injection of Xylocaine, a 0.035 inch Amplatz guidewire was advanced through the existing tunneled dialysis catheter in the right common femoral vein. The existing tunneled dialysis catheter was removed over the guide wire. The 14.5-Azeri 33 cm long tunneled dialysis catheter was advanced over the guidewire. The tip of the catheter was confirmed i n position within the inferior vena cava. The 2 ports were then each flushed with 2.3 ml of 1:1000 heparin. The catheter was secured to the sk in with 2-0 silk. The site was dressed. The patient tolerated the procedure well. COMPARISON: None. FINDINGS: Final radiographic images demonstrate the tip of the catheter in the mid inferior vena cava. A tota l of 0.1 minutes of fluoroscopy time was used. 7 images of the abdomen and right groin were obtaine d with image intensifier. IMPRESSION: 1. Satisfactory replacement of tunneled right femoral dialysis catheter. RPTAT: QQ .Rick Tomlin MD, MD Date Time Electronically viewed and signed by .Rick Tomlin MD, MD on 03/31/2017 19:25 .R/
--- NOTE | 2017-03-31 21:28 | RADRPT ---
PROCEDURE: US bilateral lower extremity arteries. CLINICAL INDICATION: Bilateral leg pain. History of left lower extremity above-knee amputation. Right foot gangrene. TECHNIQUE: Multiple longitudinal and transverse images of the bilateral lower extremity arteries w ere obtained with powell scale, pulsed Doppler, and color Doppler imaging. COMPARISON: No prior studies are available for comparison. FINDINGS: Right INSULATION BOARD CALENDER OPERATOR:195 cm/sec PSFA:75 cm/sec MSFA:95 cm/sec DSFA:175 cm/sec POP:52 cm/sec SITE SUPERVISOR:Occluded DPA:59 cm/sec Left INSULATION BOARD CALENDER OPERATOR:170 cm/sec PSFA:34 cm/sec The right ankle-brachial index is 0.8. There is monophasic flow throughout the right lower extremit y arterial system consistent with iliac disease. There is normal triphasic flow in the left common femoral artery. There is dampened monophasic flow in the left proximal superficial femoral artery. IMPRESSION: 1. 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 2. Occluded right posterior tibial artery. 3. Probable in the common femoral artery or proximal superficial femoral artery significant stenosi s. RPTAT: QQ .Rick Tomlin MD, Date Time Electronically viewed and signed by .Rick Tomlin MD, on 03/31/2017 21:28 .R/
--- NOTE | 2017-03-31 23:58 | PN ---
Date/Time of Note Date/Time of Note DATE: 03/31/17 TIME: 23:57 Assessment/Plan Lines/Catheters IV Catheter Type (from [facility]): Peripheral IV Correa in Place (from [facility]): No Assessment/Plan Problems: (1) CKD (chronic kidney disease) Status: Acute Qualifiers: Chronic kidney disease stage: unspecified stage Qualified Code: N18.9 - Chronic kidney disease, unspecified CKD stage (2) Dialysis catheter clot or failure Status: Acute (3) Gangrene of toe of right foot (4) Family history of endocrine and metabolic disease (5) Family history of hypertension Assessment/Plan Patient will be scheduled for surgery this weekend. Patient will be followed in -house. Exam/Review of Systems Vital Signs Vitals Vital Signs Date Time Temp Pulse Resp B/P Pulse Ox O2 Delivery O2 Flow Rate FiO2 03/31/17 23:18 65 19 03/31/17 15:38 98.8 134/62 98 03/30/17 12:35 21 03/28/17 16:30 Room Air Intake and Output 03/30/17 03/30/17 03/31/17 15:00 23:00 07:00 Intake Total 600 ml 370 ml Output Total 0 ml Balance 600 ml 370 ml Results Result Diagram: 03/31/17 0500 03/31/17 0500 CHAU BRANCH DPM Mar 31, 2017 23:58
[2017-04-01] VITALS (10 sets, daily range): BP systolic 110–159; BP diastolic 53–65; PULSE 56–60; RESP 11–19
[2017-04-01] MEDS: ACCU-CHEK XX SCH (01:54)
[2017-04-01] MEDS: PANTOPRAZOLE (EC) 40 MG TAB PO SCH (05:53)
[2017-04-01] MEDS: morphine 2 MG INJ IV PRN ×2 (05:54→22:45)
[2017-04-01 07:13] LABS: BASOPHILS % 0.4 % (0.0-2.0); EOSINOPHILS # 0.2 10^3/ul (0.0-0.5); EOSINOPHILS % 1.6 % (0.0-7.0); HEMATOCRIT 30.1 % (42.0-52.0); HEMOGLOBIN 9.9 g/dl (14.0-18.0); LYMPHOCYTES % 17.7 % (15.0-51.0); MEAN CORPUSCULAR HEMOGLOBIN 33.9 pg (29.0-33.0); MEAN CORPUSCULAR HGB CONC 32.9 g/dl (32.0-37.0); MEAN CORPUSCULAR VOLUME 103.1 fl (82.0-101.0); MEAN PLATELET VOLUME 10.5 fl (7.4-10.4); NEUTROPHILS % 70.9 % (39.0-77.0); PLATELET COUNT 364 10^3/UL (140-415); RED BLOOD COUNT 2.92 10^6/ul (4.70-6.10); RED CELL DISTRIBUTION WIDTH 16.5 % (11.5-14.5); WHITE BLOOD COUNT 11.3 10^3/ul (4.8-10.8)
[2017-04-01 07:46] LABS: CALCIUM 8.4 mg/dl (8.4-10.2); CREATININE 6.46 mg/dl (0.61-1.24); POTASSIUM 4.3 mmol/L (3.5-5.1)
[2017-04-01] MEDS: MULTIVIT/CA CARB/B CMPLX/FA TAB PO SCH (07:54)
[2017-04-01] MEDS: SEVELAMER 800 MG TAB PO SCH ×3 (07:54→17:35)
[2017-04-01] MEDS: HYDROCODONE/APAP (5/325) TAB PO PRN (07:55)
[2017-04-01] MEDS: INSULIN ASPART [NOVOLOG] 3 ML PEN SC SCH ×4 (07:58→21:00)
[2017-04-01] MEDS: METOPROLOL 25 MG TAB PO SCH ×2 (09:00→21:43)
[2017-04-01] MEDS: BENAZEPRIL 20 MG TAB PO SCH ×2 (09:00→21:43)
--- NOTE | 2017-04-01 15:07 | PN ---
Date/Time of Note Date/Time of Note DATE: 04/01/17 TIME: 14:56 Assessment/Plan VTE Prophylaxis VTE Prophylaxis Intervention: SCD's Lines/Catheters IV Catheter Type (from [facility]): [place] Urinary Cath still in place: No Assessment/Plan Chief Complaint/Hosp Course 1. End-stage renal disease - Vascular surgery consult appreciated, s/p TPA of the dialysis access line, continue HD -Nephrology consultation appreciated 2. Diabetes -Sliding-scale 3. Hypertension -Continue home meds 4. Gangrene of the foot -Plan is for angiogram today PPX: SCDs Problems: Subjective 24 Hr Interval Summary Constitutional: no complaints Exam/Review of Systems Vital Signs Vitals Vital Signs Date Time Temp Pulse Resp B/P Pulse Ox O2 Delivery O2 Flow Rate FiO2 04/01/17 14:00 98.8 68 18 110/58 94 03/30/17 12:35 21 03/28/17 16:30 Room Air Intake and Output 03/31/17 03/31/17 04/01/17 14:59 22:59 06:59 Intake Total 550 ml 550 ml Output Total 50 ml 3000 ml Balance 500 ml -2450 ml Exam Constitutional: alert, oriented Respiratory: clear to auscultation Cardiovascular: regular rate and rhythm Gastrointestinal: soft, No distended Musculoskeletal: No nl extremities to inspection Results Result Diagram: 04/01/17 0551 04/01/17 0551 Results 24 hrs Laboratory Tests Test 03/31/17 16:56 03/31/17 23:32 04/01/17 05:51 04/01/17 07:52 Bedside Glucose 77 149 80 White Blood Count 11.3 H Red Blood Count 2.92 L Hemoglobin 9.9 L Hematocrit 30.1 L Mean Corpuscular Volume 103.1 H Mean Corpuscular Hemoglobin 33.9 H Mean Corpuscular Hemoglobin Concent 32.9 Red Cell Distribution Width 16.5 H Platelet Count 364 Mean Platelet Volume 10.5 H Neutrophils % 70.9 Lymphocytes % 17.7 Monocytes % 9.0 Eosinophils % 1.6 Basophils % 0.4 Nucleated Red Blood Cells % 0.0 Neutrophils # (Manual) 8.0 H Lymphocytes # 2.0 Monocytes # 1.0 H Eosinophils # 0.2 Basophils # 0.0 Nucleated Red Blood Cells # 0.0 Sodium Level 134 L Potassium Level 4.3 Chloride Level 94 L Carbon Dioxide Level 26 Anion Gap 18 H Blood Urea Nitrogen 52 #H Creatinine 6.46 #H Glucose Level 86 Calcium Level 8.4 Test 04/01/17 12:01 Bedside Glucose 114 Medications Medications Current Medications Ondansetron HCl (Zofran Inj) 4 mg Q6H PRN IV NAUSEA AND/OR VOMITING; Start at 17:00 Acetaminophen (Tylenol Tab) 650 mg Q6H PRN PO PAIN LEVEL 1-3 OR FEVER; Start at 17:00 Acetaminophen/ Hydrocodone Bitart ([place] (5/325)) 1 tab Q6H PRN PO MODERATE PAIN LEVEL 4-6 Last administered on 04/01/17 07:55; Admin Dose 1 TAB; Start at 17:00 Morphine Sulfate (morphine) 2 mg Q4H PRN IV SEVERE PAIN LEVEL 7-10 Last administered on 04/01/17 05:54; Admin Dose 2 MG; Start 03/28/17 at 17:00 Docusate Sodium (Colace) 100 mg Q12H PRN PO CONSTIPATION; Start 03/28/17 at 17: 00 Zolpidem Tartrate (Ambien) 5 mg QHS PRN PO SLEEP; Start 03/28/17 at 17:00 Benazepril HCl (Lotensin) 20 mg BID PO Last administered on 03/31/17 23:37; Admin Dose 20 MG; Start 03/28/17 at 21:00 Metoprolol Tartrate (Lopressor) 25 mg BID PO Last administered on 03/31/17 23: 37; Admin Dose 25 MG; Start 03/28/17 at 21:00 Multivit/Ca Carb/ B Cmplx/FA/Prenat ([place]-Cherelle) 1 tab DAILY PO Last administered on 04/01/17 07:54; Admin Dose 1 TAB; Start 03/29/17 at 09:00 Pantoprazole (Protonix Tab) 40 mg DAILY@06 PO Last administered on 04/01/17 05: 53; Admin Dose 40 MG; Start 03/29/17 at 06:00 Diagnostic Test (Pha) (Accu-Chek) 1 ea 02 XX ; Start 03/29/17 at 02:00 Miscellaneous Information 1 ea NOTE XX ; Start 03/28/17 at 17:30 Glucose (Glutose) 15 gm Q15M PRN PO DECREASED GLUCOSE; Start 03/28/17 at 17:30 Glucose (Glutose) 22.5 gm Q15M PRN PO DECREASED GLUCOSE; Start 03/28/17 at 17: 30 Dextrose (D50w Syringe) 25 ml Q15M PRN IV DECREASED GLUCOSE; Start 03/28/17 at 17:30 Dextrose (D50w Syringe) 50 ml Q15M PRN IV DECREASED GLUCOSE; Start 03/28/17 at 17:30 Glucagon (Glucagen) 1 mg Q15M PRN IM DECREASED GLUCOSE; Start 03/28/17 at 17:30 Glucose (Glutose) 15 gm Q15M PRN BUCCAL DECREASED GLUCOSE; Start 03/28/17 at 17 :30 Miscellaneous Information (Pending [facility] Order For Wound Care) This patient salazar... PRN PRN XX WOUND CARE; Start 03/28/17 at 20:00 SHANNAN DELUCA Apr 01, 2017 15:06
--- NOTE | 2017-04-01 16:25 | CONS ---
Date/Time of Note Date/Time of Note DATE: 04/01/17 TIME: 16:22 Assessment/Plan Assessment/Plan Additional Assessment/Plan 1. ESRD on HD 2. Catheter malfunction 3. Hypertension 4. Diabetes melitus 5. hyperkalemia due to inadequate/missed HD due to non functioning HD catheter Plan : s/p HD yestedday after tPA in HD catheter, HD ordred for tomorrow Podiatry has been consulted on the case will follow up Consultation Date/Type/Reason Admit Date/Time Mar 30, 2017 at 16:05 Initial Consult Date 03/28/17 Type of Consultation: NEPHROLOGY Referring Provider: SHANNAN DELUCA 24 HR Interval Summary Free Text/Dictation no events, S/p HD yesterday Exam/Review of Systems Vital Signs Vitals Vital Signs Date Time Temp Pulse Resp B/P Pulse Ox O2 Delivery O2 Flow Rate FiO2 04/01/17 14:00 98.8 68 18 110/58 94 03/30/17 12:35 21 03/28/17 16:30 Room Air Intake and Output 03/31/17 03/31/17 04/01/17 15:00 23:00 07:00 Intake Total 550 ml 550 ml Output Total 50 ml 3000 ml Balance 500 ml -2450 ml Exam Constitutional: alert Respiratory: clear to auscultation, congested cough, diminished breath sounds, normal air movement Cardiovascular: nl pulses Gastrointestinal: non-tender, soft Musculoskeletal: nl extremities to inspection Neurological: TREE SCOUT II-XII intact, nl mental status, nl speech, nl strength Results Result Diagram: 04/01/17 0551 04/01/17 0551 Results 24 hrs Laboratory Tests Test 03/31/17 16:56 03/31/17 23:32 04/01/17 05:51 04/01/17 07:52 Bedside Glucose 77 149 80 White Blood Count 11.3 H Red Blood Count 2.92 L Hemoglobin 9.9 L Hematocrit 30.1 L Mean Corpuscular Volume 103.1 H Mean Corpuscular Hemoglobin 33.9 H Mean Corpuscular Hemoglobin Concent 32.9 Red Cell Distribution Width 16.5 H Platelet Count 364 Mean Platelet Volume 10.5 H Neutrophils % 70.9 Lymphocytes % 17.7 Monocytes % 9.0 Eosinophils % 1.6 Basophils % 0.4 Nucleated Red Blood Cells % 0.0 Neutrophils # (Manual) 8.0 H Lymphocytes # 2.0 Monocytes # 1.0 H Eosinophils # 0.2 Basophils # 0.0 Nucleated Red Blood Cells # 0.0 Sodium Level 134 L Potassium Level 4.3 Chloride Level 94 L Carbon Dioxide Level 26 Anion Gap 18 H Blood Urea Nitrogen 52 #H Creatinine 6.46 #H Glucose Level 86 Calcium Level 8.4 Test 04/01/17 12:01 Bedside Glucose 114 Medications Medications Current Medications Ondansetron HCl (Zofran Inj) 4 mg Q6H PRN IV NAUSEA AND/OR VOMITING; Start at 17:00 Acetaminophen (Tylenol Tab) 650 mg Q6H PRN PO PAIN LEVEL 1-3 OR FEVER; Start at 17:00 Acetaminophen/ Hydrocodone Bitart ([place] (5/325)) 1 tab Q6H PRN PO MODERATE PAIN LEVEL 4-6 Last administered on 04/01/17 07:55; Admin Dose 1 TAB; Start at 17:00 Morphine Sulfate (morphine) 2 mg Q4H PRN IV SEVERE PAIN LEVEL 7-10 Last administered on 04/01/17 05:54; Admin Dose 2 MG; Start 03/28/17 at 17:00 Docusate Sodium (Colace) 100 mg Q12H PRN PO CONSTIPATION; Start 03/28/17 at 17: 00 Zolpidem Tartrate (Ambien) 5 mg QHS PRN PO SLEEP; Start 03/28/17 at 17:00 Benazepril HCl (Lotensin) 20 mg BID PO Last administered on 03/31/17 23:37; Admin Dose 20 MG; Start 03/28/17 at 21:00 Metoprolol Tartrate (Lopressor) 25 mg BID PO Last administered on 03/31/17 23: 37; Admin Dose 25 MG; Start 03/28/17 at 21:00 Multivit/Ca Carb/ B Cmplx/FA/Prenat ([place]-Cherelle) 1 tab DAILY PO Last administered on 04/01/17 07:54; Admin Dose 1 TAB; Start 03/29/17 at 09:00 Pantoprazole (Protonix Tab) 40 mg DAILY@06 PO Last administered on 04/01/17 05: 53; Admin Dose 40 MG; Start 03/29/17 at 06:00 Diagnostic Test (Pha) (Accu-Chek) 1 ea 02 XX ; Start 03/29/17 at 02:00 Miscellaneous Information 1 ea NOTE XX ; Start 03/28/17 at 17:30 Glucose (Glutose) 15 gm Q15M PRN PO DECREASED GLUCOSE; Start 03/28/17 at 17:30 Glucose (Glutose) 22.5 gm Q15M PRN PO DECREASED GLUCOSE; Start 03/28/17 at 17: 30 Dextrose (D50w Syringe) 25 ml Q15M PRN IV DECREASED GLUCOSE; Start 03/28/17 at 17:30 Dextrose (D50w Syringe) 50 ml Q15M PRN IV DECREASED GLUCOSE; Start 03/28/17 at 17:30 Glucagon (Glucagen) 1 mg Q15M PRN IM DECREASED GLUCOSE; Start 03/28/17 at 17:30 Glucose (Glutose) 15 gm Q15M PRN BUCCAL DECREASED GLUCOSE; Start 03/28/17 at 17 :30 Miscellaneous Information (Pending [facility] Order For Wound Care) This patient salazar... PRN PRN XX WOUND CARE; Start 03/28/17 at 20:00 LISA MERRITT MD Apr 01, 2017 16:25
--- NOTE | 2017-04-01 16:57 | HPN ---
Date/Time of Note Date/Time of Note DATE: 04/01/17 TIME: 16:57 Interval H&P Admission Note Pt. seen H&P reviewed: No system changes CYNDI CARR MD Apr 01, 2017 16:57
[2017-04-01] MEDS ORDERED: FENTAnyl 50 MCG/ML VIAL ONE (17:39)
[2017-04-01] MEDS ORDERED: MIDAZOLAM 1 MG/ML 2 ML INJ ONE (17:39)
[2017-04-01] MEDS ORDERED: LIDOCAINE 1% (MDV) 20 ML INJ ONE (17:39)
[2017-04-01] MEDS ORDERED: HEPARIN 1000 UNITS/ML 10 ML INJ ONE (17:39)
[2017-04-01] MEDS ORDERED: IODIXANOL LOCM 100 ML BTL ONE (18:03)
[2017-04-01] MEDS ORDERED: CLOPIDOGREL 75 MG TAB ONE (19:26)
--- NOTE | 2017-04-01 20:16 | SIPON ---
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
[2017-04-01] MEDS ORDERED: ONDANSETRON 4 MG INJ IV PRN (20:30)
--- NOTE | 2017-04-01 22:37 | PN ---
Date/Time of Note Date/Time of Note DATE: 04/01/17 TIME: 22:35 Assessment/Plan Lines/Catheters IV Catheter Type (from [facility]): Peripheral IV Correa in Place (from [facility]): No Assessment/Plan Problems: (1) CKD (chronic kidney disease) Status: Acute Qualifiers: Chronic kidney disease stage: unspecified stage Qualified Code: N18.9 - Chronic kidney disease, unspecified CKD stage (2) Dialysis catheter clot or failure Status: Acute (3) Gangrene of toe of right foot (4) Family history of endocrine and metabolic disease (5) Family history of hypertension Assessment/Plan Patient is scheduled for amputation of right hallux, second toe and distal right third toe tomorrow after 2 PM. I have gotten a phone call from the OR stating that the cases may be canceled for tomorrow because the boiler is malfunctioning and is being fixed. I was told that if the boiler is fixed by the time the surgery is supposed to start, I will be notified. I will keep the patient n.p.o. nonetheless and will await the operating room to let me know whether or not the cases are back on schedule. Subjective 24 Hr Interval Summary Patient was seen at bedside. Patient is in no acute distress. Patient reports no new adverse events. Patient denies fever, chills, nausea or vomiting. Patient denies pain. Patient denies recent trauma. Patient reports bandages are being changed as directed. Patient does not report any new problems. Pain Control: well controlled Exam/Review of Systems Vital Signs Vitals Vital Signs Date Time Temp Pulse Resp B/P Pulse Ox O2 Delivery O2 Flow Rate FiO2 04/01/17 21:50 98.4 64 18 159/65 99 04/01/17 20:41 Room Air 03/30/17 12:35 21 Intake and Output 03/31/17 03/31/17 04/01/17 15:00 23:00 07:00 Intake Total 550 ml 550 ml Output Total 50 ml 3000 ml Balance 500 ml -2450 ml Exam Free Text/Dictation Right hallux, second toe and distal third toe gangrene continues with no significant change Pedal pulses remain palpable No active open wound noted bilateral No other changes noted Labs and imaging reviewed Results Result Diagram: 04/01/17 0551 04/01/17 0551 CHAU BRANCH DPM Apr 01, 2017 22:37
[2017-04-02] VITALS (8 sets, daily range): BP systolic 62–128; BP diastolic 45–69; PULSE 55–66; RESP 16–18
[2017-04-02] MEDS: ACCU-CHEK XX SCH (02:00)
[2017-04-02] MEDS: PANTOPRAZOLE (EC) 40 MG TAB PO SCH (05:08)
[2017-04-02] MEDS: morphine 2 MG INJ IV PRN ×4 (05:11→22:17)
[2017-04-02 05:25] LABS: BASOPHIL # 0.1 10^3/ul (0.0-0.1); BASOPHILS % 0.6 % (0.0-2.0); EOSINOPHILS # 0.5 10^3/ul (0.0-0.5); EOSINOPHILS % 4.5 % (0.0-7.0); HEMATOCRIT 28.4 % (42.0-52.0); HEMOGLOBIN 9.1 g/dl (14.0-18.0); LYMPHOCYTES # 2.2 10^3/ul (0.8-2.9); MEAN CORPUSCULAR HEMOGLOBIN 33.1 pg (29.0-33.0); MEAN CORPUSCULAR VOLUME 103.3 fl (82.0-101.0); MEAN PLATELET VOLUME 10.4 fl (7.4-10.4); MONOCYTE # 1.3 10^3/ul (0.3-0.9); MONOCYTES % 12.7 % (0.0-11.0); NEUTROPHILS % 59.9 % (39.0-77.0); PLATELET COUNT 348 10^3/UL (140-415); RED BLOOD COUNT 2.75 10^6/ul (4.70-6.10); RED CELL DISTRIBUTION WIDTH 16.9 % (11.5-14.5); WHITE BLOOD COUNT 10.1 10^3/ul (4.8-10.8)
[2017-04-02 05:38] LABS: CALCIUM 8.2 mg/dl (8.4-10.2); CREATININE 8.21 mg/dl (0.61-1.24); POTASSIUM 4.7 mmol/L (3.5-5.1)
[2017-04-02] MEDS: SEVELAMER 800 MG TAB PO SCH ×3 (07:35→17:27)
[2017-04-02] MEDS: INSULIN ASPART [NOVOLOG] 3 ML PEN SC SCH ×4 (07:57→20:36)
[2017-04-02] MEDS: DEXTROSE 5%-0.45% NACL 1,000 ML IV SCH (08:21)
[2017-04-02] MEDS: BENAZEPRIL 20 MG TAB PO SCH ×2 (08:36→20:31)
[2017-04-02] MEDS: MULTIVIT/CA CARB/B CMPLX/FA TAB PO SCH (08:36)
[2017-04-02] MEDS: METOPROLOL 25 MG TAB PO SCH ×2 (08:36→20:32)
[2017-04-02] MEDS: HYDROCODONE/APAP (5/325) TAB PO PRN (09:03)
--- NOTE | 2017-04-02 12:51 | CONS ---
Date/Time of Note Date/Time of Note DATE: 04/02/17 TIME: 12:48 Assessment/Plan Assessment/Plan Additional Assessment/Plan 1. ESRD on HD 2. Catheter malfunction 3. Hypertension 4. Diabetes mellitus 5. hyperkalemia due to inadequate/missed HD due to non functioning HD catheter - RESOLVED 6. Right foot- Diabetic ulcer Plan : s/p HD after tPA in HD catheter, HD ordred for tomorrow Podiatry has been consulted on the case will follow up Dw Dr Amarilys Paige Consultation Date/Type/Reason Admit Date/Time Mar 30, 2017 at 16:05 Initial Consult Date 03/28/17 Type of Consultation: NEPHROLOGY Referring Provider: SHANNAN DELUCA Detailed Summary Respiratory: no complaints Cardiovascular: no complaints Gastrointestinal: no complaints Genitourinary: no complaints Musculoskeletal: bone/joint pain Skin: skin lesions Exam/Review of Systems Vital Signs Vitals Vital Signs Date Time Temp Pulse Resp B/P Pulse Ox O2 Delivery O2 Flow Rate FiO2 04/02/17 08:01 98.6 62 16 126/64 99 04/01/17 20:41 Room Air 03/30/17 12:35 21 Intake and Output 04/01/17 04/01/17 04/02/17 15:00 23:00 07:00 Intake Total 245 ml 550 ml Balance 245 ml 550 ml Exam Constitutional: alert, oriented, well developed Respiratory: clear to auscultation, normal air movement Cardiovascular: nl pulses, regular rate and rhythm Gastrointestinal: non-tender, soft Musculoskeletal: other (right foot ulcer) Extremities: other (diminshed pulses right foot) Skin: other (right foot diabetic ulcer) Results Result Diagram: 04/02/17 0450 04/02/17 0450 Results 24 hrs Laboratory Tests Test 04/01/17 16:55 04/01/17 21:42 04/02/17 04:50 04/02/17 07:42 Bedside Glucose 95 77 89 White Blood Count 10.1 Red Blood Count 2.75 L Hemoglobin 9.1 L Hematocrit 28.4 L Mean Corpuscular Volume 103.3 H Mean Corpuscular Hemoglobin 33.1 H Mean Corpuscular Hemoglobin Concent 32.0 Red Cell Distribution Width 16.9 H Platelet Count 348 Mean Platelet Volume 10.4 Neutrophils % 59.9 Lymphocytes % 22.0 Monocytes % 12.7 H Eosinophils % 4.5 Basophils % 0.6 Nucleated Red Blood Cells % 0.0 Neutrophils # (Manual) 6.1 Lymphocytes # 2.2 Monocytes # 1.3 H Eosinophils # 0.5 Basophils # 0.1 Nucleated Red Blood Cells # 0.0 Sodium Level 133 L Potassium Level 4.7 Chloride Level 93 L Carbon Dioxide Level 27 Anion Gap 18 H Blood Urea Nitrogen 77 H Creatinine 8.21 H Glucose Level 109 Calcium Level 8.2 L Test 04/02/17 11:52 Bedside Glucose 90 Medications Medications Current Medications Ondansetron HCl (Zofran Inj) 4 mg Q6H PRN IV NAUSEA AND/OR VOMITING; Start at 17:00 Acetaminophen (Tylenol Tab) 650 mg Q6H PRN PO PAIN LEVEL 1-3 OR FEVER; Start at 17:00 Acetaminophen/ Hydrocodone Bitart ([place] (5/325)) 1 tab Q6H PRN PO MODERATE PAIN LEVEL 4-6 Last administered on 04/02/17 09:03; Admin Dose 1 TAB; Start at 17:00 Morphine Sulfate (morphine) 2 mg Q4H PRN IV SEVERE PAIN LEVEL 7-10 Last administered on 04/02/17 10:18; Admin Dose 2 MG; Start 03/28/17 at 17:00 Docusate Sodium (Colace) 100 mg Q12H PRN PO CONSTIPATION; Start 03/28/17 at 17: 00 Zolpidem Tartrate (Ambien) 5 mg QHS PRN PO SLEEP; Start 03/28/17 at 17:00 Benazepril HCl (Lotensin) 20 mg BID PO Last administered on 04/01/17 21:43; Admin Dose 20 MG; Start 03/28/17 at 21:00 Metoprolol Tartrate (Lopressor) 25 mg BID PO Last administered on 04/01/17 21: 43; Admin Dose 25 MG; Start 03/28/17 at 21:00 Multivit/Ca Carb/ B Cmplx/FA/Prenat ([place]lle) 1 tab DAILY PO Last administered on 04/01/17 07:54; Admin Dose 1 TAB; Start 03/29/17 at 09:00 Pantoprazole (Protonix Tab) 40 mg DAILY@06 PO Last administered on 04/02/17 05: 08; Admin Dose 40 MG; Start 03/29/17 at 06:00 Diagnostic Test (Pha) (Accu-Chek) 1 ea 02 XX ; Start 03/29/17 at 02:00 Miscellaneous Information 1 ea NOTE XX ; Start 03/28/17 at 17:30 Glucose (Glutose) 15 gm Q15M PRN PO DECREASED GLUCOSE; Start 03/28/17 at 17:30 Glucose (Glutose) 22.5 gm Q15M PRN PO DECREASED GLUCOSE; Start 03/28/17 at 17: 30 Dextrose (D50w Syringe) 25 ml Q15M PRN IV DECREASED GLUCOSE; Start 03/28/17 at 17:30 Dextrose (D50w Syringe) 50 ml Q15M PRN IV DECREASED GLUCOSE; Start 03/28/17 at 17:30 Glucagon (Glucagen) 1 mg Q15M PRN IM DECREASED GLUCOSE; Start 03/28/17 at 17:30 Glucose (Glutose) 15 gm Q15M PRN BUCCAL DECREASED GLUCOSE; Start 03/28/17 at 17 :30 Miscellaneous Information (Pending [facility] Order For Wound Care) This patient salazar... PRN PRN XX WOUND CARE; Start 03/28/17 at 20:00 Ondansetron HCl 4 mg 4 mg Q4H PRN IV NAUSEA AND/OR VOMITING; Start 04/01/17 at 20:30 Dextrose/Sodium Chloride (D5-1/2ns) 1,000 ml @ 40 mls/hr Q24H IV Last administered on 04/02/17 08:21; Admin Dose 40 MLS/HR; Start 04/02/17 at 08:00 CHERELLE TY Apr 02, 2017 12:51
--- NOTE | 2017-04-02 13:03 | PN ---
Date/Time of Note Date/Time of Note DATE: 04/02/17 TIME: 12:57 Assessment/Plan VTE Prophylaxis VTE Prophylaxis Intervention: SCD's Lines/Catheters IV [facility] Type [facility]from [facility] Peripheral IV Urinary Cath still in place: No Assessment/Plan Chief Complaint/Hosp Course 1. End-stage renal disease - Vascular surgery consult appreciated, s/p TPA of the dialysis access line, continue HD -Nephrology consultation appreciated 2. Diabetes -Sliding-scale 3. Hypertension -Continue home meds 4. Gangrene of the foot -Plan is for amputation of toes when OR is available PPX: SCDs Problems: Subjective 24 Hr Interval Summary Constitutional: no complaints Exam/Review of Systems Vital Signs Vitals Vital Signs Date Time Temp Pulse Resp B/P Pulse Ox O2 Delivery O2 Flow Rate FiO2 04/02/17 08:01 98.6 62 16 126/64 99 04/01/17 20:41 Room Air 03/30/17 12:35 21 Intake and Output 04/01/17 04/01/17 04/02/17 15:00 23:00 07:00 Intake Total 245 ml 550 ml Balance 245 ml 550 ml Exam Constitutional: alert, oriented Respiratory: clear to auscultation Cardiovascular: regular rate and rhythm Gastrointestinal: soft, No distended Musculoskeletal: No nl extremities to inspection (`) Results Result Diagram: 04/02/17 0450 04/02/17 0450 Results 24 hrs Laboratory Tests Test 04/01/17 16:55 04/01/17 21:42 04/02/17 04:50 04/02/17 07:42 Bedside Glucose 95 77 89 White Blood Count 10.1 Red Blood Count 2.75 L Hemoglobin 9.1 L Hematocrit 28.4 L Mean Corpuscular Volume 103.3 H Mean Corpuscular Hemoglobin 33.1 H Mean Corpuscular Hemoglobin Concent 32.0 Red Cell Distribution Width 16.9 H Platelet Count 348 Mean Platelet Volume 10.4 Neutrophils % 59.9 Lymphocytes % 22.0 Monocytes % 12.7 H Eosinophils % 4.5 Basophils % 0.6 Nucleated Red Blood Cells % 0.0 Neutrophils # (Manual) 6.1 Lymphocytes # 2.2 Monocytes # 1.3 H Eosinophils # 0.5 Basophils # 0.1 Nucleated Red Blood Cells # 0.0 Sodium Level 133 L Potassium Level 4.7 Chloride Level 93 L Carbon Dioxide Level 27 Anion Gap 18 H Blood Urea Nitrogen 77 H Creatinine 8.21 H Glucose Level 109 Calcium Level 8.2 L Test 04/02/17 11:52 Bedside Glucose 90 Medications Medications Current Medications Ondansetron HCl (Zofran Inj) 4 mg Q6H PRN IV NAUSEA AND/OR VOMITING; Start at 17:00 Acetaminophen (Tylenol Tab) 650 mg Q6H PRN PO PAIN LEVEL 1-3 OR FEVER; Start at 17:00 Acetaminophen/ Hydrocodone Bitart ([place] (5/325)) 1 tab Q6H PRN PO MODERATE PAIN LEVEL 4-6 Last administered on 04/02/17 09:03; Admin Dose 1 TAB; Start at 17:00 Morphine Sulfate (morphine) 2 mg Q4H PRN IV SEVERE PAIN LEVEL 7-10 Last administered on 04/02/17 10:18; Admin Dose 2 MG; Start 03/28/17 at 17:00 Docusate Sodium (Colace) 100 mg Q12H PRN PO CONSTIPATION; Start 03/28/17 at 17: 00 Zolpidem Tartrate (Ambien) 5 mg QHS PRN PO SLEEP; Start 03/28/17 at 17:00 Benazepril HCl (Lotensin) 20 mg BID PO Last administered on 04/01/17 21:43; Admin Dose 20 MG; Start 03/28/17 at 21:00 Metoprolol Tartrate (Lopressor) 25 mg BID PO Last administered on 04/01/17 21: 43; Admin Dose 25 MG; Start 03/28/17 at 21:00 Multivit/Ca Carb/ B Cmplx/FA/Prenat ([place]lle) 1 tab DAILY PO Last administered on 04/01/17 07:54; Admin Dose 1 TAB; Start 03/29/17 at 09:00 Pantoprazole (Protonix Tab) 40 mg DAILY@06 PO Last administered on 04/02/17 05: 08; Admin Dose 40 MG; Start 03/29/17 at 06:00 Diagnostic Test (Pha) (Accu-Chek) 1 ea 02 XX ; Start 03/29/17 at 02:00 Miscellaneous Information 1 ea NOTE XX ; Start 03/28/17 at 17:30 Glucose (Glutose) 15 gm Q15M PRN PO DECREASED GLUCOSE; Start 03/28/17 at 17:30 Glucose (Glutose) 22.5 gm Q15M PRN PO DECREASED GLUCOSE; Start 03/28/17 at 17: 30 Dextrose (D50w Syringe) 25 ml Q15M PRN IV DECREASED GLUCOSE; Start 03/28/17 at 17:30 Dextrose (D50w Syringe) 50 ml Q15M PRN IV DECREASED GLUCOSE; Start 03/28/17 at 17:30 Glucagon (Glucagen) 1 mg Q15M PRN IM DECREASED GLUCOSE; Start 03/28/17 at 17:30 Glucose (Glutose) 15 gm Q15M PRN BUCCAL DECREASED GLUCOSE; Start 03/28/17 at 17 :30 Miscellaneous Information ([facility]) This patient salazar... PRN PRN XX WOUND CARE; Start 03/28/17 at 20:00 Ondansetron HCl 4 mg 4 mg Q4H PRN IV NAUSEA AND/OR VOMITING; Start 04/01/17 at 20:30 Dextrose/Sodium Chloride (D5-1/2ns) 1,000 ml @ 40 mls/hr Q24H IV Last administered on 04/02/17t 08:21; Admin Dose 40 MLS/HR; Start 04/02/17 at 08:00 SHANNAN DELUCA Apr 02, 2017 13:03
[2017-04-03] MEDS: ACCU-CHEK XX SCH (01:58)
[2017-04-03] MEDS: morphine 2 MG INJ IV PRN ×4 (02:57→20:45)
[2017-04-03 03:45] VITALS: BP 137/62; RESP 16
[2017-04-03 05:52] LABS: CALCIUM 7.9 mg/dl (8.4-10.2); CREATININE 9.44 mg/dl (0.61-1.24)
[2017-04-03] MEDS: PANTOPRAZOLE (EC) 40 MG TAB PO SCH (05:56)
[2017-04-03] MEDS: DEXTROSE 5%-0.45% NACL 1,000 ML IV SCH (08:00)
[2017-04-03] MEDS: INSULIN ASPART [NOVOLOG] 3 ML PEN SC SCH ×4 (08:00→20:45)
[2017-04-03 08:01] VITALS: BP 131/61; RESP 61
[2017-04-03] MEDS: SEVELAMER 800 MG TAB PO SCH ×3 (08:05→17:24)
[2017-04-03] MEDS: MULTIVIT/CA CARB/B CMPLX/FA TAB PO SCH (09:24)
[2017-04-03] MEDS: BENAZEPRIL 20 MG TAB PO SCH ×2 (09:24→21:34)
[2017-04-03] MEDS: METOPROLOL 25 MG TAB PO SCH ×2 (09:25→21:34)
--- NOTE | 2017-04-03 13:46 | CONS ---
Date/Time of Note Date/Time of Note DATE: 04/03/17 TIME: 13:45 Assessment/Plan Assessment/Plan Additional Assessment/Plan 1. ESRD on HD 2. Catheter malfunction 3. Hypertension 4. Diabetes mellitus 5. hyperkalemia due to inadequate/missed HD due to non functioning HD catheter - RESOLVED 6. Right foot- Diabetic ulcer- plan for right foot- surgical procedure Plan : s/p HD after tPA in HD catheter, HD ordred for tomorrow Podiatry has been consulted on the case will follow up Dw Dr Amarilys Paige Consultation Date/Type/Reason Admit Date/Time Mar 30, 2017 at 16:05 Initial Consult Date 03/28/17 Type of Consultation: NEPHROLOGY Referring Provider: SHANNAN DELUCA Exam/Review of Systems Vital Signs Vitals Vital Signs Date Time Temp Pulse Resp B/P Pulse Ox O2 Delivery O2 Flow Rate FiO2 04/03/17 08:01 98.4 55 61 131/61 97 04/01/17 20:41 Room Air 03/30/17 12:35 21 Intake and Output 04/02/17 04/02/17 04/03/17 15:00 23:00 07:00 Intake Total 1180 ml 650 ml Output Total 1500 ml Balance -320 ml 650 ml Results Result Diagram: 04/02/17 0450 04/03/17 0442 Results 24 hrs Laboratory Tests Test 04/02/17 16:49 04/02/17 20:34 04/03/17 04:42 04/03/17 08:08 Bedside Glucose 91 140 87 Sodium Level 131 L Potassium Level 5.0 Chloride Level 93 L Carbon Dioxide Level 26 Anion Gap 17 H Blood Urea Nitrogen 87 H Creatinine 9.44 H Glucose Level 96 Calcium Level 7.9 L Test 04/03/17 12:18 Bedside Glucose 107 Medications Medications Current Medications Ondansetron HCl (Zofran Inj) 4 mg Q6H PRN IV NAUSEA AND/OR VOMITING; Start at 17:00 Acetaminophen (Tylenol Tab) 650 mg Q6H PRN PO PAIN LEVEL 1-3 OR FEVER; Start at 17:00 Acetaminophen/ Hydrocodone Bitart ([place] (5/325)) 1 tab Q6H PRN PO MODERATE PAIN LEVEL 4-6 Last administered on 04/02/17t 09:03; Admin Dose 1 TAB; Start at 17:00 Morphine Sulfate (morphine) 2 mg Q4H PRN IV SEVERE PAIN LEVEL 7-10 Last administered on 04/03/17 09:25; Admin Dose 2 MG; Start 03/28/17 at 17:00 Docusate Sodium (Colace) 100 mg Q12H PRN PO CONSTIPATION; Start 03/28/17 at 17: 00 Zolpidem Tartrate (Ambien) 5 mg QHS PRN PO SLEEP; Start 03/28/17 at 17:00 Benazepril HCl (Lotensin) 20 mg BID PO Last administered on 04/03/17 09:24; Admin Dose 20 MG; Start 03/28/17 at 21:00 Metoprolol Tartrate (Lopressor) 25 mg BID PO Last administered on 04/03/17 09: 25; Admin Dose 25 MG; Start 03/28/17 at 21:00 Multivit/Ca Carb/ B Cmplx/FA/Prenat ([place]lle) 1 tab DAILY PO Last administered on 04/03/17 09:24; Admin Dose 1 TAB; Start 03/29/17 at 09:00 Pantoprazole (Protonix Tab) 40 mg DAILY@06 PO Last administered on 04/03/17 05: 56; Admin Dose 40 MG; Start 03/29/17 at 06:00 Diagnostic Test (Pha) (Accu-Chek) 1 ea 02 XX ; Start 03/29/17 at 02:00 Miscellaneous Information 1 ea NOTE XX ; Start 03/28/17 at 17:30 Glucose (Glutose) 15 gm Q15M PRN PO DECREASED GLUCOSE; Start 03/28/17 at 17:30 Glucose (Glutose) 22.5 gm Q15M PRN PO DECREASED GLUCOSE; Start 03/28/17 at 17: 30 Dextrose (D50w Syringe) 25 ml Q15M PRN IV DECREASED GLUCOSE; Start 03/28/17 at 17:30 Dextrose (D50w Syringe) 50 ml Q15M PRN IV DECREASED GLUCOSE; Start 03/28/17 at 17:30 Glucagon (Glucagen) 1 mg Q15M PRN IM DECREASED GLUCOSE; Start 03/28/17 at 17:30 Glucose (Glutose) 15 gm Q15M PRN BUCCAL DECREASED GLUCOSE; Start 03/28/17 at 17 :30 Miscellaneous Information (Pending [facility] Order For Wound Care) This patient salazar... PRN PRN XX WOUND CARE; Start 03/28/17 at 20:00 Ondansetron HCl 4 mg 4 mg Q4H PRN IV NAUSEA AND/OR VOMITING; Start 04/01/17 at 20:30 Dextrose/Sodium Chloride (D5-1/2ns) 1,000 ml @ 40 mls/hr Q24H IV Last administered on 04/02/17 08:21; Admin Dose 40 MLS/HR; Start 04/02/17 at 08:00 CHERELLE TY Apr 03, 2017 13:46
[2017-04-03 14:24] VITALS: BP 126/52; RESP 18
--- NOTE | 2017-04-03 18:48 | PN ---
Date/Time of Note Date/Time of Note DATE: 04/03/17 TIME: 18:47 Assessment/Plan VTE Prophylaxis VTE Prophylaxis Intervention: SCD's Lines/Catheters [facility] [place] Urinary Cath still in place: No Assessment/Plan Chief Complaint/Hosp Course 1. End-stage renal disease - Vascular surgery consult appreciated, s/p TPA of the dialysis access line, continue HD -Nephrology consultation appreciated 2. Diabetes -Sliding-scale 3. Hypertension -Continue home meds 4. Gangrene of the foot s/p AORTOILIAC WITH RLE ANGIOGRAM, FEM-POP ATHERECTOMY , FEM-POP ANGIOPLASTY, ADVERTISING PHOTOGRAPHER BALLOON ANGIOPLASTY, TPT ANGIOPLASTY -Plan is for amputation of toes when OR is available PPX: SCDs Problems: Subjective 24 Hr Interval Summary Constitutional: no complaints Exam/Review of Systems Vital Signs Vitals Vital Signs Date Time Temp Pulse Resp B/P Pulse Ox O2 Delivery O2 Flow Rate FiO2 04/03/17 14:24 98.2 52 18 126/52 98 04/01/17 20:41 Room Air 03/30/17 12:35 21 Intake and Output 04/02/17 04/02/17 04/03/17 15:00 23:00 07:00 Intake Total 1180 ml 650 ml Output Total 1500 ml Balance -320 ml 650 ml Exam Constitutional: alert, oriented Respiratory: clear to auscultation Cardiovascular: regular rate and rhythm Gastrointestinal: soft, No distended Musculoskeletal: No nl extremities to inspection Results Result Diagram: 04/02/17 0450 04/03/17 0442 Results 24 hrs Laboratory Tests Test 04/02/17 20:34 04/03/17 04:42 04/03/17 08:08 04/03/17 12:18 Bedside Glucose 140 87 107 Sodium Level 131 L Potassium Level 5.0 Chloride Level 93 L Carbon Dioxide Level 26 Anion Gap 17 H Blood Urea Nitrogen 87 H Creatinine 9.44 H Glucose Level 96 Calcium Level 7.9 L Test 04/03/17 17:25 Bedside Glucose 101 Medications Medications Current Medications Ondansetron HCl (Zofran Inj) 4 mg Q6H PRN IV NAUSEA AND/OR VOMITING; Start at 17:00 Acetaminophen (Tylenol Tab) 650 mg Q6H PRN PO PAIN LEVEL 1-3 OR FEVER; Start at 17:00 Acetaminophen/ Hydrocodone Bitart ([place] (5/325)) 1 tab Q6H PRN PO MODERATE PAIN LEVEL 4-6 Last administered on 04/02/17 09:03; Admin Dose 1 TAB; Start at 17:00 Morphine Sulfate (morphine) 2 mg Q4H PRN IV SEVERE PAIN LEVEL 7-10 Last administered on 04/03/17 15:05; Admin Dose 2 MG; Start 03/28/17 at 17:00 Docusate Sodium (Colace) 100 mg Q12H PRN PO CONSTIPATION; Start 03/28/17 at 17: 00 Zolpidem Tartrate (Ambien) 5 mg QHS PRN PO SLEEP; Start 03/28/17 at 17:00 Benazepril HCl (Lotensin) 20 mg BID PO Last administered on 04/03/17 09:24; Admin Dose 20 MG; Start 03/28/17 at 21:00 Metoprolol Tartrate (Lopressor) 25 mg BID PO Last administered on 04/03/17 09: 25; Admin Dose 25 MG; Start 03/28/17 at 21:00 Multivit/Ca Carb/ B Cmplx/FA/Prenat ([place]) 1 tab DAILY PO Last administered on 04/03/17 09:24; Admin Dose 1 TAB; Start 03/29/17 at 09:00 Pantoprazole (Protonix Tab) 40 mg DAILY@06 PO Last administered on 04/03/17 05: 56; Admin Dose 40 MG; Start 03/29/17 at 06:00 Diagnostic Test (Pha) (Accu-Chek) 1 ea 02 XX ; Start 03/29/17 at 02:00 Miscellaneous Information 1 ea NOTE XX ; Start 03/28/17 at 17:30 Glucose (Glutose) 15 gm Q15M PRN PO DECREASED GLUCOSE; Start 03/28/17 at 17:30 Glucose (Glutose) 22.5 gm Q15M PRN PO DECREASED GLUCOSE; Start 03/28/17 at 17: 30 Dextrose (D50w Syringe) 25 ml Q15M PRN IV DECREASED GLUCOSE; Start 03/28/17 at 17:30 Dextrose (D50w Syringe) 50 ml Q15M PRN IV DECREASED GLUCOSE; Start 03/28/17 at 17:30 Glucagon (Glucagen) 1 mg Q15M PRN IM DECREASED GLUCOSE; Start 03/28/17 at 17:30 Glucose (Glutose) 15 gm Q15M PRN BUCCAL DECREASED GLUCOSE; Start 03/28/17 at 17 :30 Miscellaneous Information (Pending [facility] Order For Wound Care) This patient salazar... PRN PRN XX WOUND CARE; Start 03/28/17 at 20:00 Ondansetron HCl 4 mg 4 mg Q4H PRN IV NAUSEA AND/OR VOMITING; Start 04/01/17 at 20:30 Dextrose/Sodium Chloride (D5-1/2ns) 1,000 ml @ 40 mls/hr Q24H IV Last administered on 04/02/17t 08:21; Admin Dose 40 MLS/HR; Start 04/02/17 at 08:00 SHANNAN DELUCA Apr 03, 2017 18:48
[2017-04-03 21:05] VITALS: BP 155/66; RESP 16
[2017-04-03 21:31] VITALS: BP 134/60; PULSE 58
[2017-04-03] MEDS: HYDROCODONE/APAP (5/325) TAB PO PRN (23:13)
[2017-04-03] MEDS: DOCUSATE SODIUM 100 MG CAP PO PRN (23:16)
[2017-04-04] VITALS (11 sets, daily range): BP systolic 122–164; BP diastolic 42–78; PULSE 60–85; RESP 16–20
[2017-04-04] MEDS: morphine 2 MG INJ IV PRN ×4 (00:54→21:10)
[2017-04-04] MEDS: ACCU-CHEK XX SCH (02:00)
[2017-04-04] MEDS: PANTOPRAZOLE (EC) 40 MG TAB PO SCH (05:15)
[2017-04-04 05:58] LABS: BASOPHILS % 0.3 % (0.0-2.0); EOSINOPHILS # 0.5 10^3/ul (0.0-0.5); EOSINOPHILS % 5.1 % (0.0-7.0); HEMATOCRIT 23.4 % (42.0-52.0); HEMOGLOBIN 7.3 g/dl (14.0-18.0); LYMPHOCYTES # 2.8 10^3/ul (0.8-2.9); LYMPHOCYTES % 28.4 % (15.0-51.0); MEAN CORPUSCULAR HEMOGLOBIN 32.4 pg (29.0-33.0); MEAN CORPUSCULAR HGB CONC 31.2 g/dl (32.0-37.0); MONOCYTE # 1.2 10^3/ul (0.3-0.9); MONOCYTES % 12.3 % (0.0-11.0); NEUTROPHILS % 53.5 % (39.0-77.0); PLATELET COUNT 325 10^3/UL (140-415); RED BLOOD COUNT 2.25 10^6/ul (4.70-6.10); RED CELL DISTRIBUTION WIDTH 16.4 % (11.5-14.5); WHITE BLOOD COUNT 9.7 10^3/ul (4.8-10.8)
[2017-04-04 06:29] LABS: CREATININE 11.12 mg/dl (0.61-1.24); POTASSIUM 5.1 mmol/L (3.5-5.1)
[2017-04-04] MEDS: INSULIN ASPART [NOVOLOG] 3 ML PEN SC SCH ×4 (08:00→21:00)
[2017-04-04] MEDS: DEXTROSE 5%-0.45% NACL 1,000 ML IV SCH ×2 (08:00→12:15)
[2017-04-04] MEDS: BENAZEPRIL 20 MG TAB PO SCH ×2 (08:26→21:09)
[2017-04-04] MEDS: METOPROLOL 25 MG TAB PO SCH ×2 (08:26→21:09)
[2017-04-04] MEDS: SEVELAMER 800 MG TAB PO SCH ×3 (09:21→17:47)
[2017-04-04] MEDS: MULTIVIT/CA CARB/B CMPLX/FA TAB PO SCH (09:21)
[2017-04-04] MEDS: HYDROCODONE/APAP (5/325) TAB PO PRN (14:58)
--- NOTE | 2017-04-04 15:52 | CONS ---
Date/Time of Note Date/Time of Note DATE: 04/04/17 TIME: 15:48 Assessment/Plan Assessment/Plan Additional Assessment/Plan 1. ESRD on HD 2. Catheter malfunction 3. Hypertension 4. Diabetes melitus 5. hyperkalemia due to inadequate/missed HD due to non functioning HD catheter 6. 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 Sp LE bypass, plan for Surgeyr for Foot gangrene when OR is available will follow up Consultation Date/Type/Reason Admit Date/Time Mar 30, 2017 at 16:05 Initial Consult Date 03/28/17 Type of Consultation: NEPHROLOGY Referring Provider: SHANNAN DELUCA 24 HR Interval Summary Free Text/Dictation s/p LE bypass, BP stable, Exam/Review of Systems Vital Signs Vitals Vital Signs Date Time Temp Pulse Resp B/P Pulse Ox O2 Delivery O2 Flow Rate FiO2 04/04/17 10:45 62 04/04/17 10:45 12 04/04/17 08:00 98.0 152/65 99 04/01/17 20:41 Room Air Intake and Output 04/03/17 04/03/17 04/04/17 15:00 23:00 07:00 Intake Total 1120 ml 300 ml Balance 1120 ml 300 ml Exam Constitutional: alert Respiratory: clear to auscultation, congested cough, diminished breath sounds, normal air movement Cardiovascular: nl pulses Gastrointestinal: non-tender, soft Musculoskeletal: Right foot phalanx gangrene Neurological: SUPERVISOR GARAGE II-XII intact, nl mental status, nl speech, nl strength Results Result Diagram: 04/04/17 0455 04/04/17 0455 Results 24 hrs Laboratory Tests Test 04/03/17 17:25 04/03/17 20:44 04/04/17 04:55 04/04/17 08:25 Bedside Glucose 101 100 79 White Blood Count 9.7 Red Blood Count 2.25 L Hemoglobin 7.3 L Hematocrit 23.4 L Mean Corpuscular Volume 104.0 H Mean Corpuscular Hemoglobin 32.4 Mean Corpuscular Hemoglobin Concent 31.2 L Red Cell Distribution Width 16.4 H Platelet Count 325 Mean Platelet Volume 11.0 H Neutrophils % 53.5 Lymphocytes % 28.4 Monocytes % 12.3 H Eosinophils % 5.1 Basophils % 0.3 Nucleated Red Blood Cells % 0.0 Neutrophils # (Manual) 5.2 Lymphocytes # 2.8 Monocytes # 1.2 H Eosinophils # 0.5 Basophils # 0.0 Nucleated Red Blood Cells # 0.0 Sodium Level 131 L Potassium Level 5.1 Chloride Level 92 L Carbon Dioxide Level 24 Anion Gap 20 H Blood Urea Nitrogen 100 H Creatinine 11.12 H Glucose Level 71 Calcium Level 8.0 L Test 04/04/17 12:08 Bedside Glucose 102 Medications Medications Current Medications Ondansetron HCl (Zofran Inj) 4 mg Q6H PRN IV NAUSEA AND/OR VOMITING; Start at 17:00 Acetaminophen (Tylenol Tab) 650 mg Q6H PRN PO PAIN LEVEL 1-3 OR FEVER; Start at 17:00 Acetaminophen/ Hydrocodone Bitart ([place] (5/325)) 1 tab Q6H PRN PO MODERATE PAIN LEVEL 4-6 Last administered on 04/04/17 14:58; Admin Dose 1 TAB; Start at 17:00 Morphine Sulfate (morphine) 2 mg Q4H PRN IV SEVERE PAIN LEVEL 7-10 Last administered on 04/04/17 12:12; Admin Dose 2 MG; Start 03/28/17 at 17:00 Docusate Sodium (Colace) 100 mg Q12H PRN PO CONSTIPATION Last administered on 23:16; Admin Dose 100 MG; Start 03/28/17 at 17:00 Zolpidem Tartrate (Ambien) 5 mg QHS PRN PO SLEEP; Start 03/28/17 at 17:00 Benazepril HCl (Lotensin) 20 mg BID PO Last administered on 04/03/17 21:34; Admin Dose 20 MG; Start 03/28/17 at 21:00 Metoprolol Tartrate (Lopressor) 25 mg BID PO Last administered on 04/03/17 21: 34; Admin Dose 25 MG; Start 03/28/17 at 21:00 Multivit/Ca Carb/ B Cmplx/FA/Prenat ([place]) 1 tab DAILY PO Last administered on 9/4/17at 09:21; Admin Dose 1 TAB; Start 03/29/17 at 09:00 Pantoprazole (Protonix Tab) 40 mg DAILY@06 PO Last administered on 04/04/17 05: 15; Admin Dose 40 MG; Start 03/29/17 at 06:00 Diagnostic Test (Pha) (Accu-Chek) 1 ea 02 XX ; Start 03/29/17 at 02:00 Miscellaneous Information 1 ea NOTE XX ; Start 03/28/17 at 17:30 Glucose (Glutose) 15 gm Q15M PRN PO DECREASED GLUCOSE; Start 03/28/17 at 17:30 Glucose (Glutose) 22.5 gm Q15M PRN PO DECREASED GLUCOSE; Start 03/28/17 at 17: 30 Dextrose (D50w Syringe) 25 ml Q15M PRN IV DECREASED GLUCOSE; Start 03/28/17 at 17:30 Dextrose (D50w Syringe) 50 ml Q15M PRN IV DECREASED GLUCOSE; Start 03/28/17 at 17:30 Glucagon (Glucagen) 1 mg Q15M PRN IM DECREASED GLUCOSE; Start 03/28/17 at 17:30 Glucose (Glutose) 15 gm Q15M PRN BUCCAL DECREASED GLUCOSE; Start 03/28/17 at 17 :30 Miscellaneous Information (Pending [facility] Order For Wound Care) This patient salazar... PRN PRN XX WOUND CARE; Start 03/28/17 at 20:00 Ondansetron HCl 4 mg 4 mg Q4H PRN IV NAUSEA AND/OR VOMITING; Start 04/01/17 at 20:30 Dextrose/Sodium Chloride (D5-1/2ns) 1,000 ml @ 40 mls/hr Q24H IV Last administered on 04/04/17 12:15; Admin Dose 40 MLS/HR; Start 04/02/17 at 08:00 LISA MERRITT MD Apr 04, 2017 15:52
--- NOTE | 2017-04-04 15:58 | PN ---
Date/Time of Note Date/Time of Note DATE: 04/04/17 TIME: 15:54 Assessment/Plan VTE Prophylaxis VTE Prophylaxis Intervention: heparin Lines/Catheters IV Catheter Type (from [facility]): Saline Lock Urinary Cath still in place: No Assessment/Plan Chief Complaint/Hosp Course 66 yo male with DMII, ESRD on HD, PAD leading to gangrene of toes, s/p AKA of LLE. S/p revascularization surgery, pending resection of gangrenous digits of RLE Gangrene: - Pending surgery per podiatry PAD: - Continue aspirin, statin DMII: - Continue basal/bolus insulin ESRD: - Continue HD per renal Dispo plan pending OR Problems: Subjective 24 Hr Interval Summary Free Text/Dictation Stable pain symptoms in foot, controlled HD today Awaiting surgery for foot Exam/Review of Systems Vital Signs Vitals Vital Signs Date Time Temp Pulse Resp B/P Pulse Ox O2 Delivery O2 Flow Rate FiO2 04/04/17 10:45 62 04/04/17 10:45 12 04/04/17 08:00 98.0 152/65 99 04/01/17 20:41 Room Air Intake and Output 04/03/17 04/03/17 04/04/17 15:00 23:00 07:00 Intake Total 1120 ml 300 ml Balance 1120 ml 300 ml Exam Gangrenous toes noted Constitutional: alert, oriented, well developed Psych: nl mood/affect, no complaints Head: atraumatic, normocephalic Eyes: EOMI, PERRL, nl conjunctiva, nl lids, nl sclera ENMT: nl external ears & nose, nl lips & teeth, nl nasal mucosa & septum Neck: non-tender, supple Respiratory: clear to auscultation, normal air movement Cardiovascular: nl pulses, regular rate and rhythm Gastrointestinal: nl liver, spleen, non-tender, soft Musculoskeletal: nl extremities to inspection, nl gait and stance Extremities: normal pulses Neurological: RUBY DEVELOPER II-XII intact, nl mental status, nl speech, nl strength Skin: nl turgor, No rash or lesions Lymph: nl lymph nodes Results Result Diagram: 04/04/17 0455 04/04/17 0455 Results 24 hrs Laboratory Tests Test 04/03/17 17:25 04/03/17 20:44 04/04/17 04:55 04/04/17 08:25 Bedside Glucose 101 100 79 White Blood Count 9.7 Red Blood Count 2.25 L Hemoglobin 7.3 L Hematocrit 23.4 L Mean Corpuscular Volume 104.0 H Mean Corpuscular Hemoglobin 32.4 Mean Corpuscular Hemoglobin Concent 31.2 L Red Cell Distribution Width 16.4 H Platelet Count 325 Mean Platelet Volume 11.0 H Neutrophils % 53.5 Lymphocytes % 28.4 Monocytes % 12.3 H Eosinophils % 5.1 Basophils % 0.3 Nucleated Red Blood Cells % 0.0 Neutrophils # (Manual) 5.2 Lymphocytes # 2.8 Monocytes # 1.2 H Eosinophils # 0.5 Basophils # 0.0 Nucleated Red Blood Cells # 0.0 Sodium Level 131 L Potassium Level 5.1 Chloride Level 92 L Carbon Dioxide Level 24 Anion Gap 20 H Blood Urea Nitrogen 100 H Creatinine 11.12 H Glucose Level 71 Calcium Level 8.0 L Test 04/04/17 12:08 Bedside Glucose 102 Medications Medications Current Medications Ondansetron HCl (Zofran Inj) 4 mg Q6H PRN IV NAUSEA AND/OR VOMITING; Start at 17:00 Acetaminophen (Tylenol Tab) 650 mg Q6H PRN PO PAIN LEVEL 1-3 OR FEVER; Start at 17:00 Acetaminophen/ Hydrocodone Bitart ([place] (5/325)) 1 tab Q6H PRN PO MODERATE PAIN LEVEL 4-6 Last administered on 04/04/17 14:58; Admin Dose 1 TAB; Start at 17:00 Morphine Sulfate (morphine) 2 mg Q4H PRN IV SEVERE PAIN LEVEL 7-10 Last administered on 04/04/17 12:12; Admin Dose 2 MG; Start 03/28/17 at 17:00 Docusate Sodium (Colace) 100 mg Q12H PRN PO CONSTIPATION Last administered on 23:16; Admin Dose 100 MG; Start 03/28/17 at 17:00 Zolpidem Tartrate (Ambien) 5 mg QHS PRN PO SLEEP; Start 03/28/17 at 17:00 Benazepril HCl (Lotensin) 20 mg BID PO Last administered on 04/03/17 21:34; Admin Dose 20 MG; Start 03/28/17 at 21:00 Metoprolol Tartrate (Lopressor) 25 mg BID PO Last administered on 04/03/17 21: 34; Admin Dose 25 MG; Start 03/28/17 at 21:00 Multivit/Ca Carb/ B Cmplx/FA/Prenat ([place]-Cherelle) 1 tab DAILY PO Last administered on 04/04/17 09:21; Admin Dose 1 TAB; Start 03/29/17 at 09:00 Pantoprazole (Protonix Tab) 40 mg DAILY@06 PO Last administered on 04/04/17 05: 15; Admin Dose 40 MG; Start 03/29/17 at 06:00 Diagnostic Test (Pha) (Accu-Chek) 1 ea 02 XX ; Start 03/29/17 at 02:00 Miscellaneous Information 1 ea NOTE XX ; Start 03/28/17 at 17:30 Glucose (Glutose) 15 gm Q15M PRN PO DECREASED GLUCOSE; Start 03/28/17 at 17:30 Glucose (Glutose) 22.5 gm Q15M PRN PO DECREASED GLUCOSE; Start 03/28/17 at 17: 30 Dextrose (D50w Syringe) 25 ml Q15M PRN IV DECREASED GLUCOSE; Start 03/28/17 at 17:30 Dextrose (D50w Syringe) 50 ml Q15M PRN IV DECREASED GLUCOSE; Start 03/28/17 at 17:30 Glucagon (Glucagen) 1 mg Q15M PRN IM DECREASED GLUCOSE; Start 03/28/17 at 17:30 Glucose (Glutose) 15 gm Q15M PRN BUCCAL DECREASED GLUCOSE; Start 03/28/17 at 17 :30 Miscellaneous Information (Pending [facility] Order For Wound Care) This patient salazar... PRN PRN XX WOUND CARE; Start 03/28/17 at 20:00 Ondansetron HCl 4 mg 4 mg Q4H PRN IV NAUSEA AND/OR VOMITING; Start 04/01/17 at 20:30 Dextrose/Sodium Chloride (D5-1/2ns) 1,000 ml @ 40 mls/hr Q24H IV Last administered on 04/04/17 12:15; Admin Dose 40 MLS/HR; Start 04/02/17 at 08:00 CHRISTINE ALEXANDRE MD Apr 04, 2017 15:58
--- NOTE | 2017-04-04 19:17 | PN ---
Date/Time of Note Date/Time of Note DATE: 04/04/17 TIME: 19:05 Assessment/Plan Lines/Catheters IV Catheter Type (from [facility]): Saline Lock Correa in Place (from [facility]): No Assessment/Plan Chief Complaint/Hosp Course -Bilateral lower extremity atherosclerosis with gangrene: S/P Angio, Atherectomy of the fem-pop, balloon angioplasty of the fem-pop, tibials. -Patient has severe pedal disease however we were able to restore in-line flow from the AWS ARCHITECT to the foot -End-stage renal disease: S/P LUE brachiocephalic fistula. Still having limited adequate dialysis sessions via his new right groin catheter. Recommend running low flow sessions of 200's -Discussed vascular optimization (blood pressure meds, diet, nutrition, exercise , sugar control, antiplatelets). -Discussed findings, plan and management with the patient and the daughter at the bedside with a certified detective precinct and they understand. -Thank you for allowing us to partake in the care of your patient. Please call with any questions. Problems: Subjective 24 Hr Interval Summary no new vascular events overnight Exam/Review of Systems Vital Signs Vitals Vital Signs Date Time Temp Pulse Resp B/P Pulse Ox O2 Delivery O2 Flow Rate FiO2 04/04/17 14:00 99.2 64 20 152/68 97 04/01/17 20:41 Room Air Intake and Output 04/03/17 04/03/17 04/04/17 15:00 23:00 07:00 Intake Total 1120 ml 300 ml Balance 1120 ml 300 ml Exam Free Text/Dictation GENERAL APPEARANCE: Alert, oriented x3. LUNGS: Clear to auscultation bilaterally. CARDIOVASCULAR: S1, S2 present ABDOMEN: Soft, nontender, nondistended. Bowel sounds positive. EXTREMITIES: -Right Lower extremity: Palpable femoral pulse. Nonpalpable pedal pulse. Motor and sensory intact. Capillary refill 3-4 seconds. Gangrene and full demarcation of the 1st and 2nd toe, right heel with eschar and gangrene - superficial. -Left lower extremity: Palpable femoral pulse. groin soft, AKA stump well healed. Capillary refill about 3 seconds. Motor and sensory intact. Results Result Diagram: 04/04/17 0455 04/04/17 0455 CYNDI CARR MD Apr 04, 2017 19:17
[2017-04-04] MEDS: ATORVASTATIN 40 MG TAB PO SCH (21:09)
[2017-04-05] MEDS: ACCU-CHEK XX SCH (02:00)
[2017-04-05 02:05] VITALS: BP 147/65; RESP 18
[2017-04-05] MEDS: morphine 2 MG INJ IV PRN ×5 (03:23→20:56)
[2017-04-05] MEDS: PANTOPRAZOLE (EC) 40 MG TAB PO SCH (06:00)
[2017-04-05] MEDS: SEVELAMER 800 MG TAB PO SCH ×3 (07:35→17:39)
[2017-04-05] MEDS: INSULIN ASPART [NOVOLOG] 3 ML PEN SC SCH ×4 (08:00→20:51)
[2017-04-05] MEDS: DEXTROSE 5%-0.45% NACL 1,000 ML IV SCH (08:06)
[2017-04-05 08:07] VITALS: BP 147/65; RESP 18
[2017-04-05] MEDS: METOPROLOL 25 MG TAB PO SCH ×2 (08:09→20:50)
[2017-04-05] MEDS: MULTIVIT/CA CARB/B CMPLX/FA TAB PO SCH (08:09)
[2017-04-05] MEDS: BENAZEPRIL 20 MG TAB PO SCH ×2 (08:09→20:50)
--- NOTE | 2017-04-05 09:26 | OPR ---
DATE OF OPERATION: 04/01/2017 PREOPERATIVE DIAGNOSIS: Right lower extremity gangrene. POSTOPERATIVE DIAGNOSIS: Right lower extremity gangrene. ANESTHESIA: Local with sedation. ESTIMATED BLOOD LOSS: Minimal. COMPLICATIONS: None. HEPARIN: As recorded. CONTRAST: As recorded. ACES: Left common femoral artery 7-Congolese sheath. CLOSURE: Manual compression Angio-Seal closure device. SUPERVISION: Under physician's supervision, moderate sedation was administered intravenously under continuous monitoring by the interventional team and attending physician. Pulse oximeter, heart rate and blood pressures were continuously monitored by the interventional surgeon. The physician spent time was 2 hours of [id number] sedation time with the patient. INDICATIONS: This is a 66-year-old gentleman with significant history of bilateral lower extremity atherosclerosis and gangrene in which the patient presents with new onset of right lower extremity rest pain. The patient had been followed in our outpatient office for evaluation of his right lower extremity atherosclerosis in which she has had previous intervention. However, the patient seems to have developed a new in-stent stenosis despite his previous interventions. Upon discussion with the patient regarding alternatives risks and benefits, angiogram was suggested. The patient informed the risks and benefits of angiogram, balloon angioplasty, stenting and atherectomy. Risks including, but not limited to, bleeding, thrombosis, embolization, myocardial infarction, , device malfunction, limb loss, infection, nephrotoxicity, patient agreed to proceed. OPERATION PERFORMED: 1. Ultrasound-guided access of the left common femoral artery. 2. Aortic iliac angiogram. 3. Right lower extremity angiogram and 3rd order selection of right common femoral artery. 4. Moderate sedation. 5. Right femoral popliteal artery atherectomy using jet stream device. 6. Right femoral popliteal artery balloon angioplasty. 7. Right below-knee popliteal artery angioplasty. 8. Right tibioperoneal trunk and proximal peroneal artery balloon angioplasty using a Sanborn 2.5 x 220 mm. 9. Right common femoral artery balloon angioplasty using a 6 x 220 mm balloon. OPERATIVE FINDINGS AT SURGERY: 1. Bilateral renal arteries are not visualized. 2. Infrarenal aorta is patent with severe calcification and narrowing in the distal aspect. 3. Bilateral common iliac arteries with severe calcification and moderate disease. 4. Bilateral internal iliac arteries with moderate severe disease and calcification. 5. Bilateral external iliac arteries with severe calcification and moderate disease. 6. Right common femoral artery with moderate severe disease and calcification. 7. Left common femoral artery with moderate disease and calcification. 8. Left superficial femoral artery not visualized. 9. Left proximal profunda femoral artery severe calcification. 10. Right superficial femoral artery with in-stent restenosis. 11. Right profunda femoral artery is severely calcified with moderate severe disease. 12. Right above knee popliteal artery with in-stent restenoses that is severe. 13. Right at knee popliteal artery with moderate severe disease. 14. Right below-knee popliteal artery with moderate disease. 15. Line right anterior tibial artery is patent with moderate severe disease in its proximal aspect. 16. Right tibioperoneal trunk with moderate disease. 17. Right peroneal artery with moderate disease. 18. Right posterior tibial artery not visualized. 19. Severe right pedal artery disease. OPERATIVE PROCEDURE: The patient was brought into the angio suite, and positioned supine position on the fluoroscopic table. Sedation was administered without any complications. The left groin was shaved, prepped, and draped in usual standard sterile fashion. Time-out and appropriate site was marked and confirmed. Local anesthesia was infiltrated in the region of the left common femoral artery. The artery was then cannulated with a micro access needle under ultrasound guidance and a guidewire was advanced into the iliac artery under fluoroscopic guidance. as the patient has severely calcified external iliac and common iliac vessels. The needle was then removed. The micro catheter was placed. A Bentson wire was then passed into the infrarenal aorta under fluoroscopic guidance, followed by a short 5-Congolese sheath over the wire. The sheath was then appropriately flushed with heparinized saline solution. Omni Flush catheter was then passed into the suprarenal aorta and aortoiliac angiogram was obtained. Findings are noted above. At this point, using the Omni Flush catheter we selected the right common femoral artery in a 3rd order selection. The right lower extremity angiogram was then obtained. It was identified patient has significant in-stent restenosis. Therefore, decision was made to perform atherectomy of the right femoral popliteal region. We went ahead and exchanged our 5-Congolese sheath to a destination 7-Congolese sheath. At this point, using our Jetstream atherectomy device we performed atherectomy of the femoral popliteal region. Following this aspect, we went ahead and performed balloon angioplasty with a 6 x 220 mm balloon within our stents. Upon the completion of that, there was still some stenosis in the at knee popliteal artery and below-knee popliteal artery. Therefore, we went ahead and performed a balloon angioplasty of the below-knee popliteal artery and at knee popliteal artery using a 5 x 80 mm glenroy balloon. Upon the completion of that, we still identified further stenosis of the proximal tibioperoneal trunk and posterior tibial artery and peroneal artery. Therefore we performed a balloon angioplasty of the right tibioperoneal trunk and proximal peroneal artery using a 2.5 x 220 Sanborn balloon. Upon the completion angiogram was identified. The patient having inline flow from the common femoral artery all the way down to the foot via the anterior tibial artery and the peroneal artery. We also performed balloon angioplasty of the right common femoral artery as the patient did have moderate severe disease as well using our 6 x 220 mm balloon. At this point, all sheaths, catheters and wires were removed. An Angio-Seal closure device was deployed in the left common femoral artery. Patient tolerated procedure well. Taken to the postanesthesia care in stable condition. All instrument, sponge, needle counts were correct x2. PLAN: Would recommend for the patient to continue on his aspirin and Plavix for dual antiplatelet therapy. We will plan to load the patient with Plavix today and we will plan to perform outpatient ultrasound for our intervention surveillance. Dictated By: Bradley Quintero MD /juan/evan /Document#: [id number]
[2017-04-05] MEDS ORDERED: EPOETIN 3000 UNITS/1 ML INJ (ESRD) SC ONE (10:00)
[2017-04-05 14:07] VITALS: BP 156/70; RESP 16
--- NOTE | 2017-04-05 16:50 | PN ---
Date/Time of Note Date/Time of Note DATE: 04/05/17 TIME: 16:48 Assessment/Plan VTE Prophylaxis VTE Prophylaxis Intervention: LMWH Lines/Catheters IV Catheter Type (from [facility]): Saline Lock Urinary Cath still in place: No Assessment/Plan Chief Complaint/Hosp Course 66 yo male with DMII, ESRD on HD, PAD leading to gangrene of toes, s/p AKA of LLE. S/p revascularization surgery, pending resection of gangrenous digits of RLE Gangrene: - Pending surgery per podiatry PAD: - Continue aspirin, statin - S/P Angio, Atherectomy of the fem-pop, balloon angioplasty of the fem-pop, tibials DMII: - Continue basal/bolus insulin ESRD: - Continue HD per renal Anemia of CKD: - EPO per renal Dispo plan pending OR Problems: Subjective 24 Hr Interval Summary Free Text/Dictation Continued pain, not controlled in foot Plan for OR tomorrow Exam/Review of Systems Vital Signs Vitals Vital Signs Date Time Temp Pulse Resp B/P Pulse Ox O2 Delivery O2 Flow Rate FiO2 04/05/17 14:07 98.4 57 16 156/70 96 04/01/17 20:41 Room Air Intake and Output 04/04/17 04/04/17 04/05/17 15:00 23:00 07:00 Intake Total 500 ml 1160 ml 300 ml Output Total 2500 ml Balance -2000 ml 1160 ml 300 ml Exam Constitutional: alert, oriented, well developed Psych: nl mood/affect, no complaints Head: atraumatic, normocephalic Eyes: EOMI, PERRL, nl conjunctiva, nl lids, nl sclera ENMT: nl external ears & nose, nl lips & teeth, nl nasal mucosa & septum Neck: non-tender, supple Respiratory: clear to auscultation, normal air movement Cardiovascular: nl pulses, regular rate and rhythm Gastrointestinal: nl liver, spleen, non-tender, soft Musculoskeletal: nl extremities to inspection, nl gait and stance Extremities: normal pulses Neurological: 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 II-XII 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, nl mental status, nl speech, nl strength Skin: nl turgor, No rash or lesions Lymph: nl lymph nodes Results Result Diagram: 04/04/17 0455 04/04/17 0455 Results 24 hrs Laboratory Tests Test 04/04/17 17:47 04/04/17 21:07 04/05/17 08:08 04/05/17 12:12 Bedside Glucose 131 102 84 91 Medications Medications Current Medications Ondansetron HCl (Zofran Inj) 4 mg Q6H PRN IV NAUSEA AND/OR VOMITING; Start at 17:00 Acetaminophen (Tylenol Tab) 650 mg Q6H PRN PO PAIN LEVEL 1-3 OR FEVER; Start at 17:00 Acetaminophen/ Hydrocodone Bitart ([place] (5/325)) 1 tab Q6H PRN PO MODERATE PAIN LEVEL 4-6 Last administered on 04/04/17 14:58; Admin Dose 1 TAB; Start at 17:00 Docusate Sodium (Colace) 100 mg Q12H PRN PO CONSTIPATION Last administered on 23:16; Admin Dose 100 MG; Start 03/28/17 at 17:00 Zolpidem Tartrate (Ambien) 5 mg QHS PRN PO SLEEP; Start 03/28/17 at 17:00 Benazepril HCl (Lotensin) 20 mg BID PO Last administered on 04/04/17 21:09; Admin Dose 20 MG; Start 03/28/17 at 21:00 Metoprolol Tartrate (Lopressor) 25 mg BID PO Last administered on 04/04/17 21: 09; Admin Dose 25 MG; Start 03/28/17 at 21:00 Multivit/Ca Carb/ B Cmplx/FA/Prenat ([place]Cherelle) 1 tab DAILY PO Last administered on 04/04/17 09:21; Admin Dose 1 TAB; Start 03/29/17 at 09:00 Pantoprazole (Protonix Tab) 40 mg DAILY@06 PO Last administered on 04/04/17 05: 15; Admin Dose 40 MG; Start 03/29/17 at 06:00 Diagnostic Test (Pha) (Accu-Chek) 1 ea 02 XX ; Start 03/29/17 at 02:00 Miscellaneous Information 1 ea NOTE XX ; Start 03/28/17 at 17:30 Glucose (Glutose) 15 gm Q15M PRN PO DECREASED GLUCOSE; Start 03/28/17 at 17:30 Glucose (Glutose) 22.5 gm Q15M PRN PO DECREASED GLUCOSE; Start 03/28/17 at 17: 30 Dextrose (D50w Syringe) 25 ml Q15M PRN IV DECREASED GLUCOSE; Start 03/28/17 at 17:30 Dextrose (D50w Syringe) 50 ml Q15M PRN IV DECREASED GLUCOSE; Start 03/28/17 at 17:30 Glucagon (Glucagen) 1 mg Q15M PRN IM DECREASED GLUCOSE; Start 03/28/17 at 17:30 Glucose (Glutose) 15 gm Q15M PRN BUCCAL DECREASED GLUCOSE; Start 03/28/17 at 17 :30 Miscellaneous Information (Pending [facility] Order For Wound Care) This patient salazar... PRN PRN XX WOUND CARE; Start 03/28/17 at 20:00 Ondansetron HCl 4 mg 4 mg Q4H PRN IV NAUSEA AND/OR VOMITING; Start 04/01/17 at 20:30 Dextrose/Sodium Chloride (D5-1/2ns) 1,000 ml @ 40 mls/hr Q24H IV Last administered on 04/05/17 08:06; Admin Dose 40 MLS/HR; Start 04/02/17 at 08:00 Atorvastatin Calcium (Lipitor) 40 mg HS PO Last administered on 04/04/17 21:09 ; Admin Dose 40 MG; Start 04/04/17 at 21:00 Epoetin Wei (Epogen (Esrd)) 6,000 units MoWeFr@17 SC ; Start 04/06/17 at 17:00 Morphine Sulfate (morphine) 2 mg Q2 PRN IV SEVERE PAIN LEVEL 7-10 Last administered on 04/05/17 13:25; Admin Dose 2 MG; Start 04/05/17 at 13:00 CHRISTINE ALEXANDRE MD Apr 05, 2017 16:50
--- NOTE | 2017-04-05 18:08 | CONS ---
Date/Time of Note Date/Time of Note DATE: 04/05/17 TIME: 18:08 Assessment/Plan Assessment/Plan Additional Assessment/Plan 1. ESRD on HD 2. Catheter malfunction 3. Hypertension 4. Diabetes melitus 5. hyperkalemia due to inadequate/missed HD due to non functioning HD catheter 6. 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 Sp LE bypass, plan for Surgeyr for Foot gangrene when OR is available will follow up Consultation Date/Type/Reason Admit Date/Time Mar 30, 2017 at 16:05 Initial Consult Date 03/28/17 Type of Consultation: NEPHROLOGY Referring Provider: SHANNAN DELUCA 24 HR Interval Summary Free Text/Dictation awaiting surgery for RLE gangrene digits , s/p HD yesterday, no acute events Exam/Review of Systems Vital Signs Vitals Vital Signs Date Time Temp Pulse Resp B/P Pulse Ox O2 Delivery O2 Flow Rate FiO2 04/05/17 14:07 98.4 57 16 156/70 96 04/01/17 20:41 Room Air Intake and Output 04/04/17 04/04/17 04/05/17 15:00 23:00 07:00 Intake Total 500 ml 1160 ml 300 ml Output Total 2500 ml Balance -2000 ml 1160 ml 300 ml Results Result Diagram: 04/04/17 0455 04/04/17 0455 Results 24 hrs Laboratory Tests Test 04/04/17 21:07 04/05/17 08:08 04/05/17 12:12 04/05/17 17:34 Bedside Glucose 102 84 91 122 Medications Medications Current Medications Ondansetron HCl (Zofran Inj) 4 mg Q6H PRN IV NAUSEA AND/OR VOMITING; Start at 17:00 Acetaminophen (Tylenol Tab) 650 mg Q6H PRN PO PAIN LEVEL 1-3 OR FEVER; Start at 17:00 Acetaminophen/ Hydrocodone Bitart ([place] (5/325)) 1 tab Q6H PRN PO MODERATE PAIN LEVEL 4-6 Last administered on 04/04/17t 14:58; Admin Dose 1 TAB; Start at 17:00 Docusate Sodium (Colace) 100 mg Q12H PRN PO CONSTIPATION Last administered on 23:16; Admin Dose 100 MG; Start 03/28/17 at 17:00 Zolpidem Tartrate (Ambien) 5 mg QHS PRN PO SLEEP; Start 03/28/17 at 17:00 Benazepril HCl (Lotensin) 20 mg BID PO Last administered on 04/04/17 21:09; Admin Dose 20 MG; Start 03/28/17 at 21:00 Metoprolol Tartrate (Lopressor) 25 mg BID PO Last administered on 04/04/17 21: 09; Admin Dose 25 MG; Start 03/28/17 at 21:00 Multivit/Ca Carb/ B Cmplx/FA/Prenat ([place]-Cherelle) 1 tab DAILY PO Last administered on 04/04/17 09:21; Admin Dose 1 TAB; Start 03/29/17 at 09:00 Pantoprazole (Protonix Tab) 40 mg DAILY@06 PO Last administered on 04/04/17 05: 15; Admin Dose 40 MG; Start 03/29/17 at 06:00 Diagnostic Test (Pha) (Accu-Chek) 1 ea 02 XX ; Start 03/29/17 at 02:00 Miscellaneous Information 1 ea NOTE XX ; Start 03/28/17 at 17:30 Glucose (Glutose) 15 gm Q15M PRN PO DECREASED GLUCOSE; Start 03/28/17 at 17:30 Glucose (Glutose) 22.5 gm Q15M PRN PO DECREASED GLUCOSE; Start 03/28/17 at 17: 30 Dextrose (D50w Syringe) 25 ml Q15M PRN IV DECREASED GLUCOSE; Start 03/28/17 at 17:30 Dextrose (D50w Syringe) 50 ml Q15M PRN IV DECREASED GLUCOSE; Start 03/28/17 at 17:30 Glucagon (Glucagen) 1 mg Q15M PRN IM DECREASED GLUCOSE; Start 03/28/17 at 17:30 Glucose (Glutose) 15 gm Q15M PRN BUCCAL DECREASED GLUCOSE; Start 03/28/17 at 17 :30 Miscellaneous Information (Pending [facility] Order For Wound Care) This patient salazar... PRN PRN XX WOUND CARE; Start 03/28/17 at 20:00 Ondansetron HCl 4 mg 4 mg Q4H PRN IV NAUSEA AND/OR VOMITING; Start 04/01/17 at 20:30 Dextrose/Sodium Chloride (D5-1/2ns) 1,000 ml @ 40 mls/hr Q24H IV Last administered on 04/05/17 08:06; Admin Dose 40 MLS/HR; Start 04/02/17 at 08:00 Atorvastatin Calcium (Lipitor) 40 mg HS PO Last administered on 04/04/17 21:09 ; Admin Dose 40 MG; Start 04/04/17 at 21:00 Epoetin Wei (Epogen (Esrd)) 6,000 units MoWeFr@17 SC ; Start 04/06/17 at 17:00 Morphine Sulfate (morphine) 2 mg Q2 PRN IV SEVERE PAIN LEVEL 7-10 Last administered on 04/05/17 17:39; Admin Dose 2 MG; Start 04/05/17 at 13:00 LISA MERRITT MD Apr 05, 2017 18:08
[2017-04-05 20:15] VITALS: BP 167/73; RESP 21
[2017-04-05] MEDS: ATORVASTATIN 40 MG TAB PO SCH (20:47)
[2017-04-05 20:48] VITALS: BP 150/65
--- NOTE | 2017-04-05 23:35 | PN ---
Date/Time of Note Date/Time of Note DATE: 04/05/17 TIME: 23:35 Assessment/Plan Lines/Catheters IV Catheter Type (from [facility]): Saline Lock Correa in Place (from [facility]): No Exam/Review of Systems Vital Signs Vitals Vital Signs Date Time Temp Pulse Resp B/P Pulse Ox O2 Delivery O2 Flow Rate FiO2 04/05/17 20:48 55 150/65 04/05/17 20:15 97.0 21 98 04/01/17 20:41 Room Air Intake and Output 04/04/17 04/04/17 04/05/17 15:00 23:00 07:00 Intake Total 500 ml 1160 ml 300 ml Output Total 2500 ml Balance -2000 ml 1160 ml 300 ml Results Result Diagram: 04/04/17 0455 04/04/17 0455 CHAU BRANCH DPM Apr 05, 2017 23:35
[2017-04-06] VITALS (11 sets, daily range): BP systolic 140–167; BP diastolic 60–79; PULSE 62–68; RESP 18–20
[2017-04-06] MEDS: DEXTROSE 5%-0.45% NACL 1,000 ML IV SCH (01:32)
[2017-04-06] MEDS: ACCU-CHEK XX SCH (02:00)
[2017-04-06] MEDS: PANTOPRAZOLE (EC) 40 MG TAB PO SCH (05:59)
[2017-04-06 06:54] LABS: BASOPHILS % 0.3 % (0.0-2.0); EOSINOPHILS # 0.4 10^3/ul (0.0-0.5); EOSINOPHILS % 3.9 % (0.0-7.0); HEMATOCRIT 23.3 % (42.0-52.0); HEMOGLOBIN 7.5 g/dl (14.0-18.0); LYMPHOCYTES # 1.9 10^3/ul (0.8-2.9); LYMPHOCYTES % 17.9 % (15.0-51.0); MEAN CORPUSCULAR HEMOGLOBIN 33.5 pg (29.0-33.0); MEAN CORPUSCULAR HGB CONC 32.2 g/dl (32.0-37.0); MEAN PLATELET VOLUME 11.2 fl (7.4-10.4); MONOCYTE # 1.1 10^3/ul (0.3-0.9); MONOCYTES % 10.9 % (0.0-11.0); NEUTROPHILS % 66.4 % (39.0-77.0); PLATELET COUNT 326 10^3/UL (140-415); RED BLOOD COUNT 2.24 10^6/ul (4.70-6.10); WHITE BLOOD COUNT 10.4 10^3/ul (4.8-10.8)
[2017-04-06 07:33] LABS: ALBUMIN 2.9 g/dl (3.3-4.9); ALBUMIN/GLOBULIN RATIO 0.9; CALCIUM 8.1 mg/dl (8.4-10.2); CREATININE 9.9 mg/dl (0.61-1.24); POTASSIUM 5.3 mmol/L (3.5-5.1); TOTAL PROTEIN 6.1 g/dl (6.1-8.1)
[2017-04-06] MEDS: SEVELAMER 800 MG TAB PO SCH ×3 (07:35→18:28)
[2017-04-06] MEDS: INSULIN ASPART [NOVOLOG] 3 ML PEN SC SCH ×4 (08:00→20:17)
[2017-04-06] MEDS: BENAZEPRIL 20 MG TAB PO SCH ×2 (09:00→20:21)
[2017-04-06] MEDS: METOPROLOL 25 MG TAB PO SCH ×2 (09:00→21:00)
[2017-04-06] MEDS: MULTIVIT/CA CARB/B CMPLX/FA TAB PO SCH (09:00)
[2017-04-06] MEDS ORDERED: LIDOCAINE 2% (MDV) 20 ML INJ ONE (10:18)
[2017-04-06] MEDS ORDERED: BUPIVACAINE 0.5% (SDV) 30 ML INJ ONE (10:18)
[2017-04-06] MEDS ORDERED: POLYMYXIN/BACITRACIN 1L IRRIG ONE (10:18)
[2017-04-06] MEDS: morphine 2 MG INJ IV PRN ×4 (13:08→22:42)
--- NOTE | 2017-04-06 15:12 | PN ---
Date/Time of Note Date/Time of Note DATE: 04/06/17 TIME: 15:11 Assessment/Plan VTE Prophylaxis VTE Prophylaxis Intervention: heparin Lines/Catheters IV [facility] (from [facility]): Saline Lock Urinary Cath still in place: No Assessment/Plan Chief Complaint/Hosp Course 66 yo male with DMII, ESRD on HD, PAD leading to gangrene of toes, s/p AKA of LLE. S/p revascularization surgery, pending resection of gangrenous digits of RLE Gangrene: - Pending surgery per podiatry - MRI foot pending PAD: - Continue aspirin, statin - S/P Angio, Atherectomy of the fem-pop, balloon angioplasty of the fem-pop, tibials DMII: - Continue basal/bolus insulin ESRD: - Continue HD per renal Anemia of CKD: - EPO per renal Dispo plan pending OR Problems: Subjective 24 Hr Interval Summary Free Text/Dictation Pt underwent HD session today Planned for OR however reporting severe R heel pain so surgery cancelled for MRI prior Exam/Review of Systems Vital Signs Vitals Vital Signs Date Time Temp Pulse Resp B/P Pulse Ox O2 Delivery O2 Flow Rate FiO2 04/06/17 14:30 99.1 67 18 149/67 97 Intake and Output 04/05/17 04/05/17 04/06/17 15:00 23:00 07:00 Intake Total 540 ml 810 ml Output Total 600 ml 400 ml Balance -60 ml 410 ml Exam Constitutional: alert, oriented, well developed Results Result Diagram: 04/06/17 0551 04/06/17 0551 Results 24 hrs Laboratory Tests Test 04/05/17 17:34 04/05/17 20:50 04/06/17 05:51 04/06/17 08:14 Bedside Glucose 122 113 118 White Blood Count 10.4 Red Blood Count 2.24 L Hemoglobin 7.5 L Hematocrit 23.3 L Mean Corpuscular Volume 104.0 H Mean Corpuscular Hemoglobin 33.5 H Mean Corpuscular Hemoglobin Concent 32.2 Red Cell Distribution Width 16.0 H Platelet Count 326 Mean Platelet Volume 11.2 H Neutrophils % 66.4 Lymphocytes % 17.9 Monocytes % 10.9 Eosinophils % 3.9 Basophils % 0.3 Nucleated Red Blood Cells % 0.0 Neutrophils # (Manual) 6.9 Lymphocytes # 1.9 Monocytes # 1.1 H Eosinophils # 0.4 Basophils # 0.0 Nucleated Red Blood Cells # 0.0 Sodium Level 128 L Potassium Level 5.3 H Chloride Level 93 L Carbon Dioxide Level 25 Anion Gap 15 Blood Urea Nitrogen 72 H Creatinine 9.90 H Glucose Level 98 Calcium Level 8.1 L Total Bilirubin 0.0 L Direct Bilirubin 0.00 Indirect Bilirubin 0.0 Aspartate Amino Transf (AST/SGOT) 14 L Alanine Aminotransferase (ALT/SGPT) 23 Alkaline Phosphatase 120 Total Protein 6.1 Albumin 2.9 L Globulin 3.20 Albumin/Globulin Ratio 0.90 Test 04/06/17 13:01 Bedside Glucose 103 Medications Medications Current Medications Ondansetron HCl (Zofran Inj) 4 mg Q6H PRN IV NAUSEA AND/OR VOMITING; Start at 17:00 Acetaminophen (Tylenol Tab) 650 mg Q6H PRN PO PAIN LEVEL 1-3 OR FEVER; Start at 17:00 Acetaminophen/ Hydrocodone Bitart ([place] (5/325)) 1 tab Q6H PRN PO MODERATE PAIN LEVEL 4-6 Last administered on 04/04/17 14:58; Admin Dose 1 TAB; Start at 17:00 Docusate Sodium (Colace) 100 mg Q12H PRN PO CONSTIPATION Last administered on 23:16; Admin Dose 100 MG; Start 03/28/17 at 17:00 Zolpidem Tartrate (Ambien) 5 mg QHS PRN PO SLEEP; Start 03/28/17 at 17:00 Benazepril HCl (Lotensin) 20 mg BID PO Last administered on 04/05/17 20:50; Admin Dose 20 MG; Start 03/28/17 at 21:00 Metoprolol Tartrate (Lopressor) 25 mg BID PO Last administered on 04/05/17 20: 50; Admin Dose 25 MG; Start 03/28/17 at 21:00 Multivit/Ca Carb/ B Cmplx/FA/Prenat ([place]) 1 tab DAILY PO Last administered on 04/04/17 09:21; Admin Dose 1 TAB; Start 03/29/17 at 09:00 Pantoprazole (Protonix Tab) 40 mg DAILY@06 PO Last administered on 04/04/17 05: 15; Admin Dose 40 MG; Start 03/29/17 at 06:00 Diagnostic Test (Pha) (Accu-Chek) 1 ea 02 XX ; Start 03/29/17 at 02:00 Miscellaneous Information 1 ea NOTE XX ; Start 03/28/17 at 17:30 Glucose (Glutose) 15 gm Q15M PRN PO DECREASED GLUCOSE; Start 03/28/17 at 17:30 Glucose (Glutose) 22.5 gm Q15M PRN PO DECREASED GLUCOSE; Start 03/28/17 at 17: 30 Dextrose (D50w Syringe) 25 ml Q15M PRN IV DECREASED GLUCOSE; Start 03/28/17 at 17:30 Dextrose (D50w Syringe) 50 ml Q15M PRN IV DECREASED GLUCOSE; Start 03/28/17 at 17:30 Glucagon (Glucagen) 1 mg Q15M PRN IM DECREASED GLUCOSE; Start 03/28/17 at 17:30 Glucose (Glutose) 15 gm Q15M PRN BUCCAL DECREASED GLUCOSE; Start 03/28/17 at 17 :30 Miscellaneous Information (Pending [facility] Order For Wound Care) This patient salazar... PRN PRN XX WOUND CARE; Start 03/28/17 at 20:00 Ondansetron HCl 4 mg 4 mg Q4H PRN IV NAUSEA AND/OR VOMITING; Start 04/01/17 at 20:30 Dextrose/Sodium Chloride (D5-1/2ns) 1,000 ml @ 40 mls/hr Q24H IV Last administered on 04/06/17 01:32; Admin Dose 40 MLS/HR; Start 04/02/17 at 08:00 Atorvastatin Calcium (Lipitor) 40 mg HS PO Last administered on 04/05/17 20:47 ; Admin Dose 40 MG; Start 04/04/17 at 21:00 Epoetin Wei (Epogen (Esrd)) 6,000 units MoWeFr@17 SC ; Start 04/06/17 at 17:00 Morphine Sulfate (morphine) 2 mg Q2 PRN IV SEVERE PAIN LEVEL 7-10 Last administered on 04/06/17 13:08; Admin Dose 2 MG; Start 04/05/17 at 13:00 CHRISTINE ALEXANDRE MD Apr 06, 2017 15:12
--- NOTE | 2017-04-06 16:34 | CONS ---
Date/Time of Note Date/Time of Note DATE: 04/06/17 TIME: 16:33 Assessment/Plan Assessment/Plan Additional Assessment/Plan 1. ESRD on HD 2. Catheter malfunction 3. Hypertension 4. Diabetes melitus 5. hyperkalemia due to inadequate/missed HD due to non functioning HD catheter 6. Gangrene of the foot s/p AORTOILIAC WITH RLE ANGIOGRAM, FEM-POP ATHERECTOMY, FEM-POP ANGIOPLASTY, JAVA TECH BALLOON ANGIOPLASTY, TPT ANGIOPLASTY Plan : plan for HD today- will conintue HD EVE heard being in hospital. Sp LE bypass, plan for Surgeyr for Foot gangrene when OR is available will follow up Consultation Date/Type/Reason Admit Date/Time Mar 30, 2017 at 16:05 Initial Consult Date 03/28/17 Type of Consultation: NEPHROLOGY Referring Provider: SHANNAN DELUCA Exam/Review of Systems Vital Signs Vitals Vital Signs Date Time Temp Pulse Resp B/P Pulse Ox O2 Delivery O2 Flow Rate FiO2 04/06/17 14:30 99.1 67 18 149/67 97 Intake and Output 04/05/17 04/05/17 04/06/17 15:00 23:00 07:00 Intake Total 540 ml 810 ml Output Total 600 ml 400 ml Balance -60 ml 410 ml Exam Constitutional: alert, oriented, well developed Respiratory: clear to auscultation, normal air movement Cardiovascular: nl pulses, regular rate and rhythm Gastrointestinal: non-tender, soft Musculoskeletal: other (right foot ulcer) Extremities: other (diminshed pulses right foot) Skin: other (right foot diabetic ulcer) Results Result Diagram: 04/06/17 0551 04/06/17 0551 Results 24 hrs Laboratory Tests Test 04/05/17 17:34 04/05/17 20:50 04/06/17 05:51 04/06/17 08:14 Bedside Glucose 122 113 118 White Blood Count 10.4 Red Blood Count 2.24 L Hemoglobin 7.5 L Hematocrit 23.3 L Mean Corpuscular Volume 104.0 H Mean Corpuscular Hemoglobin 33.5 H Mean Corpuscular Hemoglobin Concent 32.2 Red Cell Distribution Width 16.0 H Platelet Count 326 Mean Platelet Volume 11.2 H Neutrophils % 66.4 Lymphocytes % 17.9 Monocytes % 10.9 Eosinophils % 3.9 Basophils % 0.3 Nucleated Red Blood Cells % 0.0 Neutrophils # (Manual) 6.9 Lymphocytes # 1.9 Monocytes # 1.1 H Eosinophils # 0.4 Basophils # 0.0 Nucleated Red Blood Cells # 0.0 Sodium Level 128 L Potassium Level 5.3 H Chloride Level 93 L Carbon Dioxide Level 25 Anion Gap 15 Blood Urea Nitrogen 72 H Creatinine 9.90 H Glucose Level 98 Calcium Level 8.1 L Total Bilirubin 0.0 L Direct Bilirubin 0.00 Indirect Bilirubin 0.0 Aspartate Amino Transf (AST/SGOT) 14 L Alanine Aminotransferase (ALT/SGPT) 23 Alkaline Phosphatase 120 Total Protein 6.1 Albumin 2.9 L Globulin 3.20 Albumin/Globulin Ratio 0.90 Test 04/06/17 13:01 Bedside Glucose 103 Medications Medications Current Medications Ondansetron HCl (Zofran Inj) 4 mg Q6H PRN IV NAUSEA AND/OR VOMITING; Start at 17:00 Acetaminophen (Tylenol Tab) 650 mg Q6H PRN PO PAIN LEVEL 1-3 OR FEVER; Start at 17:00 Acetaminophen/ Hydrocodone Bitart ([place] (5/325)) 1 tab Q6H PRN PO MODERATE PAIN LEVEL 4-6 Last administered on 04/04/17 14:58; Admin Dose 1 TAB; Start at 17:00 Docusate Sodium (Colace) 100 mg Q12H PRN PO CONSTIPATION Last administered on 23:16; Admin Dose 100 MG; Start 03/28/17 at 17:00 Zolpidem Tartrate (Ambien) 5 mg QHS PRN PO SLEEP; Start 03/28/17 at 17:00 Benazepril HCl (Lotensin) 20 mg BID PO Last administered on 04/05/17 20:50; Admin Dose 20 MG; Start 03/28/17 at 21:00 Metoprolol Tartrate (Lopressor) 25 mg BID PO Last administered on 04/05/17 20: 50; Admin Dose 25 MG; Start 03/28/17 at 21:00 Multivit/Ca Carb/ B Cmplx/FA/Prenat ([place]) 1 tab DAILY PO Last administered on 04/04/17 09:21; Admin Dose 1 TAB; Start 03/29/17 at 09:00 Pantoprazole (Protonix Tab) 40 mg DAILY@06 PO Last administered on 04/04/17 05: 15; Admin Dose 40 MG; Start 03/29/17 at 06:00 Diagnostic Test (Pha) (Accu-Chek) 1 ea 02 XX ; Start 03/29/17 at 02:00 Miscellaneous Information 1 ea NOTE XX ; Start 03/28/17 at 17:30 Glucose (Glutose) 15 gm Q15M PRN PO DECREASED GLUCOSE; Start 03/28/17 at 17:30 Glucose (Glutose) 22.5 gm Q15M PRN PO DECREASED GLUCOSE; Start 03/28/17 at 17: 30 Dextrose (D50w Syringe) 25 ml Q15M PRN IV DECREASED GLUCOSE; Start 03/28/17 at 17:30 Dextrose (D50w Syringe) 50 ml Q15M PRN IV DECREASED GLUCOSE; Start 03/28/17 at 17:30 Glucagon (Glucagen) 1 mg Q15M PRN IM DECREASED GLUCOSE; Start 03/28/17 at 17:30 Glucose (Glutose) 15 gm Q15M PRN BUCCAL DECREASED GLUCOSE; Start 03/28/17 at 17 :30 Miscellaneous Information (Pending [facility] Order For Wound Care) This patient salazar... PRN PRN XX WOUND CARE; Start 03/28/17 at 20:00 Ondansetron HCl 4 mg 4 mg Q4H PRN IV NAUSEA AND/OR VOMITING; Start 04/01/17 at 20:30 Dextrose/Sodium Chloride (D5-1/2ns) 1,000 ml @ 40 mls/hr Q24H IV Last administered on 04/06/17 01:32; Admin Dose 40 MLS/HR; Start 04/02/17 at 08:00 Atorvastatin Calcium (Lipitor) 40 mg HS PO Last administered on 04/05/17 20:47 ; Admin Dose 40 MG; Start 04/04/17 at 21:00 Epoetin Wei (Epogen (Esrd)) 6,000 units MoWeFr@17 SC ; Start 04/06/17 at 17:00 Morphine Sulfate (morphine) 2 mg Q2 PRN IV SEVERE PAIN LEVEL 7-10 Last administered on 04/06/17 15:15; Admin Dose 2 MG; Start 04/05/17 at 13:00 LISA MERRITT MD Apr 06, 2017 16:34
[2017-04-06] MEDS: EPOETIN 3000 UNITS/1 ML INJ (ESRD) SC SCH (18:29)
[2017-04-06] MEDS: ATORVASTATIN 40 MG TAB PO SCH (20:22)
--- NOTE | 2017-04-06 23:57 | PN ---
Date/Time of Note Date/Time of Note DATE: 04/06/17 TIME: 23:55 Assessment/Plan Lines/Catheters IV Catheter Type (from Nrs): Saline Lock Correa in Place (from Nrsg): No Assessment/Plan Problems: (1) Osteomyelitis (2) Pressure ulcer of right ankle (3) Abscess of right foot (4) Diabetes, polyneuropathy (5) Gangrene of toe of right foot (6) Dialysis catheter clot or failure Status: Acute Assessment/Plan Patient was scheduled today for amputation of the right hallux, second toe and partial third toe gangrenous changes. Patient reported to me at the preoperative area that he has increasing pain and swelling in his right heel which he was experiencing before but the pain has gotten worse. He says that he had an MRI done in another hospital but no MRI done at [facility]. I canceled the case in order to obtain an MRI of the right foot and heel to fully evaluate the current worsening pain in his right heel prior to any surgery. He may require further surgical management that was planned originally. I have discussed this with the patient in great detail and I used Nepali translation via metal ceiling hanger computer system. Patient will be followed up in-house. I have discussed case with hospitalist as well. Exam/Review of Systems Vital Signs Vitals Vital Signs Date Time Temp Pulse Resp B/P Pulse Ox O2 Delivery O2 Flow Rate FiO2 04/06/17 20:00 98.4 59 19 167/72 100 Intake and Output 04/05/17 04/05/17 04/06/17 15:00 23:00 07:00 Intake Total 540 ml 810 ml Output Total 600 ml 400 ml Balance -60 ml 410 ml Results Result Diagram: 04/06/17 0551 04/06/17 0551 CHAU BRANCH DPM Apr 06, 2017 23:57
[2017-04-07] MEDS: ACCU-CHEK XX SCH (01:19)
[2017-04-07 02:00] VITALS: BP 130/69; RESP 19
[2017-04-07] MEDS: PANTOPRAZOLE (EC) 40 MG TAB PO SCH (06:11)
[2017-04-07] MEDS: morphine 2 MG INJ IV PRN ×4 (06:17→21:02)
[2017-04-07 07:54] VITALS: BP 137/67; RESP 20
[2017-04-07] MEDS: INSULIN ASPART [NOVOLOG] 3 ML PEN SC SCH ×4 (08:00→20:57)
[2017-04-07] MEDS: DEXTROSE 5%-0.45% NACL 1,000 ML IV SCH (08:00)
[2017-04-07] MEDS: SEVELAMER 800 MG TAB PO SCH ×3 (08:27→17:59)
[2017-04-07] MEDS: MULTIVIT/CA CARB/B CMPLX/FA TAB PO SCH (08:27)
[2017-04-07] MEDS: METOPROLOL 25 MG TAB PO SCH ×2 (08:29→20:54)
[2017-04-07] MEDS: BENAZEPRIL 20 MG TAB PO SCH ×2 (08:29→20:54)
--- NOTE | 2017-04-07 08:31 | RADRPT ---
PROCEDURE: MRI OF THE RIGHT FOOT CLINICAL INDICATION: Right foot pain and swelling, history of heel pain with open wound, patient is a diabetic TECHNIQUE: Multiple MRI images were obtained utilizing multiple sequences in multiple planes. Image s were interpreted on a high-resolution PACS system. COMPARISON: None available FINDINGS: There is a posterior skin ulceration at the heel near the calcaneal tuberosity medially (sagittal 13 and axial 35). There is extensive subcutaneous soft tissue swelling without drainable fluid collect ion. There is no evidence of underlying osteomyelitis of the posterior calcaneal tuberosity at this time. There is no evidence of tear of the Achilles, anterior extensor, medial flexor, or peroneal tendons. Limited assessment of the ligaments about the ankle demonstrates mild scarring without acute injury . The talar dome is normal. There is no coalition. There is intrinsic foot muscle edema and atrophy. IMPRESSION: 1. Posteromedial skin ulceration at the heel without evidence of drainable fluid collection or under lying osteomyelitis at this time. 2. Diffuse subcutaneous soft tissue swelling, query cellulitis. 3. Intrinsic foot muscle atrophy and edema, probably related to diabetic microangiopathy. RPTAT: UU .Onel Sanchez MD, MD Date Time Electronically viewed and signed by .Onel Sanchez MD, on 04/07/2017 08:31 .K/
[2017-04-07 15:19] VITALS: BP 132/66; RESP 20
--- NOTE | 2017-04-07 16:39 | CONS ---
Date/Time of Note Date/Time of Note DATE: 04/07/17 TIME: 16:37 Assessment/Plan Assessment/Plan Additional Assessment/Plan 1. ESRD on HD 2. Catheter malfunction 3. Hypertension 4. Diabetes melitus 5. hyperkalemia due to inadequate/missed HD due to non functioning HD catheter 6. Gangrene of the foot s/p AORTOILIAC WITH RLE ANGIOGRAM, FEM-POP ATHERECTOMY, FEM-POP ANGIOPLASTY, OIL PROCESSING TECHNICIAN BALLOON ANGIOPLASTY, TPT ANGIOPLASTY Plan : plan for HD tomorrow- will conintue HD EVE heard being in hospital. Sp LE bypass,RLE surery held due to MRI results, MRI RLE Reordered by , will continue to follow up and provide HD suppor t will follow up Consultation Date/Type/Reason Admit Date/Time Mar 30, 2017 at 16:05 Initial Consult Date 03/28/17 Type of Consultation: NEPHROLOGY Referring Provider: SHANNAN DELUCA 24 HR Interval Summary Free Text/Dictation Surgery held due to MRI RLE, BP stable, S/p HD yesterday Exam/Review of Systems Vital Signs Vitals Vital Signs Date Time Temp Pulse Resp B/P Pulse Ox O2 Delivery O2 Flow Rate FiO2 04/07/17 15:19 98.4 77 20 132/66 99 Intake and Output 04/06/17 04/06/17 04/07/17 15:00 23:00 07:00 Intake Total 600 ml 200 ml 350 ml Output Total 3600 ml Balance -3000 ml 200 ml 350 ml Exam Constitutional: alert, oriented, well developed Respiratory: clear to auscultation, normal air movement Cardiovascular: nl pulses, regular rate and rhythm Gastrointestinal: non-tender, soft Musculoskeletal: other (right foot ulcer) Extremities: other (diminshed pulses right foot) Skin: other (right foot diabetic ulcer) Results Result Diagram: 04/06/17 0551 04/06/17 0551 Results 24 hrs Laboratory Tests Test 04/06/17 18:24 04/06/17 20:16 04/07/17 08:26 04/07/17 11:54 Bedside Glucose 117 136 85 107 Medications Medications Current Medications Ondansetron HCl (Zofran Inj) 4 mg Q6H PRN IV NAUSEA AND/OR VOMITING; Start at 17:00 Acetaminophen (Tylenol Tab) 650 mg Q6H PRN PO PAIN LEVEL 1-3 OR FEVER; Start at 17:00 Acetaminophen/ Hydrocodone Bitart ([place] (5/325)) 1 tab Q6H PRN PO MODERATE PAIN LEVEL 4-6 Last administered on 04/04/17 14:58; Admin Dose 1 TAB; Start at 17:00 Docusate Sodium (Colace) 100 mg Q12H PRN PO CONSTIPATION Last administered on 23:16; Admin Dose 100 MG; Start 03/28/17 at 17:00 Zolpidem Tartrate (Ambien) 5 mg QHS PRN PO SLEEP; Start 03/28/17 at 17:00 Benazepril HCl (Lotensin) 20 mg BID PO Last administered on 04/07/17 08:29; Admin Dose 20 MG; Start 03/28/17 at 21:00 Metoprolol Tartrate (Lopressor) 25 mg BID PO Last administered on 04/07/17 08: 29; Admin Dose 25 MG; Start 03/28/17 at 21:00 Multivit/Ca Carb/ B Cmplx/FA/Prenat ([place]) 1 tab DAILY PO Last administered on 04/07/17 08:27; Admin Dose 1 TAB; Start 03/29/17 at 09:00 Pantoprazole (Protonix Tab) 40 mg DAILY@06 PO Last administered on 04/07/17 06: 11; Admin Dose 40 MG; Start 03/29/17 at 06:00 Diagnostic Test (Pha) (Accu-Chek) 1 ea 02 XX ; Start 03/29/17 at 02:00 Miscellaneous Information 1 ea NOTE XX ; Start 03/28/17 at 17:30 Glucose (Glutose) 15 gm Q15M PRN PO DECREASED GLUCOSE; Start 03/28/17 at 17:30 Glucose (Glutose) 22.5 gm Q15M PRN PO DECREASED GLUCOSE; Start 03/28/17 at 17: 30 Dextrose (D50w Syringe) 25 ml Q15M PRN IV DECREASED GLUCOSE; Start 03/28/17 at 17:30 Dextrose (D50w Syringe) 50 ml Q15M PRN IV DECREASED GLUCOSE; Start 03/28/17 at 17:30 Glucagon (Glucagen) 1 mg Q15M PRN IM DECREASED GLUCOSE; Start 03/28/17 at 17:30 Glucose (Glutose) 15 gm Q15M PRN BUCCAL DECREASED GLUCOSE; Start 03/28/17 at 17 :30 Miscellaneous Information (Pending [facility] Order For Wound Care) This patient salazar... PRN PRN XX WOUND CARE; Start 03/28/17 at 20:00 Ondansetron HCl 4 mg 4 mg Q4H PRN IV NAUSEA AND/OR VOMITING; Start 04/01/17 at 20:30 Dextrose/Sodium Chloride (D5-1/2ns) 1,000 ml @ 40 mls/hr Q24H IV Last administered on 04/06/17 01:32; Admin Dose 40 MLS/HR; Start 04/02/17 at 08:00 Atorvastatin Calcium (Lipitor) 40 mg HS PO Last administered on 04/06/17 20:22 ; Admin Dose 40 MG; Start 04/04/17 at 21:00 Epoetin Wei (Epogen (Esrd)) 6,000 units MoWeFr@17 SC Last administered on 18:29; Admin Dose 6,000 UNITS; Start 04/06/17 at 17:00 Morphine Sulfate (morphine) 2 mg Q2 PRN IV SEVERE PAIN LEVEL 7-10 Last administered on 04/07/17 14:28; Admin Dose 2 MG; Start 04/05/17 at 13:00 LISA MERRITT MD Apr 07, 2017 16:39
--- NOTE | 2017-04-07 16:55 | PN ---
Date/Time of Note Date/Time of Note DATE: 04/07/17 TIME: 16:45 Assessment/Plan VTE Prophylaxis VTE Prophylaxis Intervention: LMWH Lines/Catheters IV Catheter Type (from Nrsg): RIGHT GROIN PERMACATH Urinary Cath still in place: No Assessment/Plan Chief Complaint/Hosp Course 66 yo male with DMII, ESRD on HD, PAD leading to gangrene of toes, s/p AKA of LLE. S/p revascularization surgery, pending resection of gangrenous digits of RLE Foot swelling: - Concerning for DVT, cellulitis also possible. will give trial of antibiotics Gangrene: - Pending surgery per podiatry - MRI foot pending PAD: - Continue aspirin, statin - S/P Angio, Atherectomy of the fem-pop, balloon angioplasty of the fem-pop, tibials DMII: - Continue basal/bolus insulin ESRD: - Continue HD per renal Anemia of CKD: - EPO per renal Dispo plan pending OR Problems: Subjective 24 Hr Interval Summary Free Text/Dictation Continued pain in foot, swelling there as well Frustrated to still be hospitalized. Wants to go home if possible Exam/Review of Systems Vital Signs Vitals Vital Signs Date Time Temp Pulse Resp B/P Pulse Ox O2 Delivery O2 Flow Rate FiO2 04/07/17 15:19 98.4 77 20 132/66 99 Intake and Output 04/06/17 04/06/17 04/07/17 15:00 23:00 07:00 Intake Total 600 ml 200 ml 350 ml Output Total 3600 ml Balance -3000 ml 200 ml 350 ml Exam Affected foot is diffusely swollen to below ankle. Slightly warm to touch, nontender. Open necrotic wound over heel Gangernous toes Malodorous Results Result Diagram: 04/06/17 0551 04/06/17 0551 Results 24 hrs Laboratory Tests Test 04/06/17 18:24 04/06/17 20:16 04/07/17 08:26 04/07/17 11:54 Bedside Glucose 117 136 85 107 Medications Medications Current Medications Ondansetron HCl (Zofran Inj) 4 mg Q6H PRN IV NAUSEA AND/OR VOMITING; Start at 17:00 Acetaminophen (Tylenol Tab) 650 mg Q6H PRN PO PAIN LEVEL 1-3 OR FEVER; Start at 17:00 Acetaminophen/ Hydrocodone Bitart ([place] (5/325)) 1 tab Q6H PRN PO MODERATE PAIN LEVEL 4-6 Last administered on 04/04/17 14:58; Admin Dose 1 TAB; Start at 17:00 Docusate Sodium (Colace) 100 mg Q12H PRN PO CONSTIPATION Last administered on 23:16; Admin Dose 100 MG; Start 03/28/17 at 17:00 Zolpidem Tartrate (Ambien) 5 mg QHS PRN PO SLEEP; Start 03/28/17 at 17:00 Benazepril HCl (Lotensin) 20 mg BID PO Last administered on 04/07/17 08:29; Admin Dose 20 MG; Start 03/28/17 at 21:00 Metoprolol Tartrate (Lopressor) 25 mg BID PO Last administered on 04/07/17 08: 29; Admin Dose 25 MG; Start 03/28/17 at 21:00 Multivit/Ca Carb/ B Cmplx/FA/Prenat ([place]here[place]) 1 tab DAILY PO Last administered on 04/07/17 08:27; Admin Dose 1 TAB; Start 03/29/17 at 09:00 Pantoprazole (Protonix Tab) 40 mg DAILY@06 PO Last administered on 04/07/17 06: 11; Admin Dose 40 MG; Start 03/29/17 at 06:00 Diagnostic Test (Pha) (Accu-Chek) 1 ea 02 XX ; Start 03/29/17 at 02:00 Miscellaneous Information 1 ea NOTE XX ; Start 03/28/17 at 17:30 Glucose (Glutose) 15 gm Q15M PRN PO DECREASED GLUCOSE; Start 03/28/17 at 17:30 Glucose (Glutose) 22.5 gm Q15M PRN PO DECREASED GLUCOSE; Start 03/28/17 at 17: 30 Dextrose (D50w Syringe) 25 ml Q15M PRN IV DECREASED GLUCOSE; Start 03/28/17 at 17:30 Dextrose (D50w Syringe) 50 ml Q15M PRN IV DECREASED GLUCOSE; Start 03/28/17 at 17:30 Glucagon (Glucagen) 1 mg Q15M PRN IM DECREASED GLUCOSE; Start 03/28/17 at 17:30 Glucose (Glutose) 15 gm Q15M PRN BUCCAL DECREASED GLUCOSE; Start 03/28/17 at 17 :30 Miscellaneous Information (Pending [facility] Order For Wound Care) This patient salazar... PRN PRN XX WOUND CARE; Start 03/28/17 at 20:00 Ondansetron HCl 4 mg 4 mg Q4H PRN IV NAUSEA AND/OR VOMITING; Start 04/01/17 at 20:30 Dextrose/Sodium Chloride (D5-1/2ns) 1,000 ml @ 40 mls/hr Q24H IV Last administered on 04/06/17 01:32; Admin Dose 40 MLS/HR; Start 04/02/17 at 08:00 Atorvastatin Calcium (Lipitor) 40 mg HS PO Last administered on 04/06/17 20:22 ; Admin Dose 40 MG; Start 04/04/17 at 21:00 Epoetin Wei (Epogen (Esrd)) 6,000 units MoWeFr@17 SC Last administered on 18:29; Admin Dose 6,000 UNITS; Start 04/06/17 at 17:00 Morphine Sulfate 2 mg 2 mg Q2 PRN IV SEVERE PAIN LEVEL 7-10 Last administered on 04/07/17 14:28; Admin Dose 2 MG; Start 04/05/17 at 13:00 Piperacillin Sod/ Tazobactam Sod (Zosyn 2.25gm/ 50ml (Pmx)) 50 ml @ 100 mls/hr Q8 IVPB ; Start 04/07/17 at 17:00; Status CHRISTINE BUCK MD Apr 07, 2017 16:54
[2017-04-07] MEDS ORDERED: VANCOMYCIN IV PER PHARMACY XX SCH (17:00)
[2017-04-07] MEDS: PIPER-TAZO 2.25 GM (PMX) 50 ML IVPB SCH ×2 (17:59→23:10)
[2017-04-07 19:50] VITALS: BP 155/64; RESP 20
[2017-04-07] MEDS: ATORVASTATIN 40 MG TAB PO SCH (20:53)
--- NOTE | 2017-04-07 23:36 | PN ---
Date/Time of Note Date/Time of Note DATE: 04/07/17 TIME: 23:36 Assessment/Plan Lines/Catheters IV Catheter Type (from [facility]): right groin permacath Correa in Place (from [facility]): No Assessment/Plan Problems: (1) Gangrene of toe of right foot (2) Diabetes, polyneuropathy (3) Osteomyelitis (4) Pressure ulcer of right ankle Assessment/Plan Will reschedule patient for amputation of right hallux, second toe and partial third. I will also surgically debride the heel ulcer as well. The MRI shows no drainable abscess in the heel. Exam/Review of Systems Vital Signs Vitals Vital Signs Date Time Temp Pulse Resp B/P Pulse Ox O2 Delivery O2 Flow Rate FiO2 04/07/17 19:50 98.7 57 20 155/64 99 Intake and Output 04/07/17 04/07/17 04/08/17 15:00 23:00 07:00 Intake Total 450 ml Output Total 100 ml Balance 350 ml Results Result Diagram: 04/06/17 0551 04/06/17 0551 CHAU BRANCH DPM Apr 07, 2017 23:36
[2017-04-08] VITALS (11 sets, daily range): BP systolic 138–153; BP diastolic 60–88; PULSE 67–76; RESP 16–20
[2017-04-08] MEDS: ACCU-CHEK XX SCH (02:00)
[2017-04-08] MEDS: PIPER-TAZO 2.25 GM (PMX) 50 ML IVPB SCH ×3 (06:25→21:32)
[2017-04-08] MEDS: PANTOPRAZOLE (EC) 40 MG TAB PO SCH (06:25)
[2017-04-08] MEDS: DOCUSATE SODIUM 100 MG CAP PO PRN (06:35)
[2017-04-08] MEDS: morphine 2 MG INJ IV PRN ×3 (06:57→20:57)
[2017-04-08] MEDS: INSULIN ASPART [NOVOLOG] 3 ML PEN SC SCH ×4 (08:00→20:53)
[2017-04-08] MEDS: DEXTROSE 5%-0.45% NACL 1,000 ML IV SCH (08:00)
[2017-04-08] MEDS: SEVELAMER 800 MG TAB PO SCH ×3 (08:31→16:58)
[2017-04-08] MEDS: MULTIVIT/CA CARB/B CMPLX/FA TAB PO SCH (08:31)
[2017-04-08] MEDS: BENAZEPRIL 20 MG TAB PO SCH ×2 (09:00→20:59)
[2017-04-08] MEDS: METOPROLOL 25 MG TAB PO SCH ×2 (09:00→20:59)
[2017-04-08] MEDS: EPOETIN 3000 UNITS/1 ML INJ (ESRD) SC SCH (17:02)
--- NOTE | 2017-04-08 18:53 | PN ---
Date/Time of Note Date/Time of Note DATE: 04/08/17 TIME: 18:50 Assessment/Plan VTE Prophylaxis VTE Prophylaxis Intervention: LMWH Lines/Catheters IV Catheter Type (from Nrsg): RIGHT GROIN PERMACATH Urinary Cath still in place: No Assessment/Plan Chief Complaint/Hosp Course 66 yo male with DMII, ESRD on HD, PAD leading to gangrene of toes, s/p AKA of LLE. S/p revascularization surgery, pending resection of gangrenous digits of RLE Foot pain and swelling: - Suspect this is dependent edema from him keeping foot hanging off bed 2/2 pain. This raises concern for ischemic gayla - Concerning for DVT, cellulitis also possible. will give trial of antibiotics Gangrene: - Pending surgery per podiatry - MRI foot pending PAD: - Continue aspirin, statin - S/P Angio, Atherectomy of the fem-pop, balloon angioplasty of the fem-pop, tibials DMII: - Continue basal/bolus insulin ESRD: - Continue HD per renal Anemia of CKD: - EPO per renal Dispo plan pending OR Problems: Subjective 24 Hr Interval Summary Free Text/Dictation Still wtih pain in his affected foot Keeps it dangled off the bed as feels better when in inferior position Exam/Review of Systems Vital Signs Vitals Vital Signs Date Time Temp Pulse Resp B/P Pulse Ox O2 Delivery O2 Flow Rate FiO2 04/08/17 14:25 98.3 60 16 149/67 98 Intake and Output 04/07/17 04/07/17 04/08/17 15:00 23:00 07:00 Intake Total 450 ml 650 ml Output Total 100 ml Balance 350 ml 650 ml Results Result Diagram: 04/06/17 0551 04/06/17 0551 Results 24 hrs Laboratory Tests Test 04/07/17 20:52 04/08/17 02:09 04/08/17 07:47 04/08/17 12:05 Bedside Glucose 189 132 119 181 Test 04/08/17 17:06 Bedside Glucose 157 Medications Medications Current Medications Ondansetron HCl (Zofran Inj) 4 mg Q6H PRN IV NAUSEA AND/OR VOMITING; Start at 17:00 Acetaminophen (Tylenol Tab) 650 mg Q6H PRN PO PAIN LEVEL 1-3 OR FEVER; Start at 17:00 Acetaminophen/ Hydrocodone Bitart ([place] (5/325)) 1 tab Q6H PRN PO MODERATE PAIN LEVEL 4-6 Last administered on 04/04/17 14:58; Admin Dose 1 TAB; Start at 17:00 Docusate Sodium (Colace) 100 mg Q12H PRN PO CONSTIPATION Last administered on 06:35; Admin Dose 100 MG; Start 03/28/17 at 17:00 Zolpidem Tartrate (Ambien) 5 mg QHS PRN PO SLEEP; Start 03/28/17 at 17:00 Benazepril HCl (Lotensin) 20 mg BID PO Last administered on 04/07/17 20:54; Admin Dose 20 MG; Start 03/28/17 at 21:00 Metoprolol Tartrate (Lopressor) 25 mg BID PO Last administered on 04/07/17 20: 54; Admin Dose 25 MG; Start 03/28/17 at 21:00 Multivit/Ca Carb/ B Cmplx/FA/Prenat ([place]Cherelle) 1 tab DAILY PO Last administered on 04/08/17 08:31; Admin Dose 1 TAB; Start 03/29/17 at 09:00 Pantoprazole (Protonix Tab) 40 mg DAILY@06 PO Last administered on 04/08/17 06: 25; Admin Dose 40 MG; Start 03/29/17 at 06:00 Diagnostic Test (Pha) (Accu-Chek) 1 ea 02 XX ; Start 03/29/17 at 02:00 Miscellaneous Information 1 ea NOTE XX ; Start 03/28/17 at 17:30 Glucose (Glutose) 15 gm Q15M PRN PO DECREASED GLUCOSE; Start 03/28/17 at 17:30 Glucose (Glutose) 22.5 gm Q15M PRN PO DECREASED GLUCOSE; Start 03/28/17 at 17: 30 Dextrose (D50w Syringe) 25 ml Q15M PRN IV DECREASED GLUCOSE; Start 03/28/17 at 17:30 Dextrose (D50w Syringe) 50 ml Q15M PRN IV DECREASED GLUCOSE; Start 03/28/17 at 17:30 Glucagon (Glucagen) 1 mg Q15M PRN IM DECREASED GLUCOSE; Start 03/28/17 at 17:30 Glucose (Glutose) 15 gm Q15M PRN BUCCAL DECREASED GLUCOSE; Start 03/28/17 at 17 :30 Miscellaneous Information (Pending [facility] Order For Wound Care) This patient salazar... PRN PRN XX WOUND CARE; Start 03/28/17 at 20:00 Ondansetron HCl 4 mg 4 mg Q4H PRN IV NAUSEA AND/OR VOMITING; Start 04/01/17 at 20:30 Dextrose/Sodium Chloride (D5-1/2ns) 1,000 ml @ 40 mls/hr Q24H IV Last administered on 04/06/17 01:32; Admin Dose 40 MLS/HR; Start 04/02/17 at 08:00 Atorvastatin Calcium (Lipitor) 40 mg HS PO Last administered on 04/07/17 20:53 ; Admin Dose 40 MG; Start 04/04/17 at 21:00 Epoetin Wei (Epogen (Esrd)) 6,000 units MoWeFr@17 SC Last administered on 17:02; Admin Dose 6,000 UNITS; Start 04/06/17 at 17:00 Morphine Sulfate 2 mg 2 mg Q2 PRN IV SEVERE PAIN LEVEL 7-10 Last administered on 04/08/17 14:54; Admin Dose 2 MG; Start 04/05/17 at 13:00 Piperacillin Sod/ Tazobactam Sod (Zosyn 2.25gm/ 50ml (Pmx)) 50 ml @ 100 mls/hr Q8 IVPB Last administered on 04/08/17 14:54; Admin Dose 100 MLS/HR; Start at 18:00 CHRISTINE ALEXANDRE MD Apr 08, 2017 18:53
[2017-04-08] MEDS: ATORVASTATIN 40 MG TAB PO SCH (20:54)
--- NOTE | 2017-04-08 21:41 | CONS ---
Date/Time of Note Date/Time of Note DATE: 04/08/17 TIME: 21:39 Assessment/Plan Assessment/Plan Additional Assessment/Plan 1. ESRD on HD 2. Catheter malfunction 3. Hypertension 4. Diabetes melitus 5. hyperkalemia due to inadequate/missed HD due to non functioning HD catheter 6. Gangrene of the foot s/p AORTOILIAC WITH RLE ANGIOGRAM, FEM-POP ATHERECTOMY, FEM-POP ANGIOPLASTY, VECTOR CONTROL ASSISTANT BALLOON ANGIOPLASTY, TPT ANGIOPLASTY 7. LE sweling rule out DVT Plan : s/p HD today- will conintue HD [facility] heard being in hospital. Awaiting LE surgery by Podiatry, MRI done will follow up Consultation Date/Type/Reason Admit Date/Time Mar 30, 2017 at 16:05 Initial Consult Date 03/28/17 Type of Consultation: NEPHROLOGY Referring Provider: SHANNAN DELUCA Exam/Review of Systems Vital Signs Vitals Vital Signs Date Time Temp Pulse Resp B/P Pulse Ox O2 Delivery O2 Flow Rate FiO2 04/08/17 20:56 98.6 63 19 143/60 98 Intake and Output 04/07/17 04/07/17 04/08/17 15:00 23:00 07:00 Intake Total 450 ml 650 ml Output Total 100 ml Balance 350 ml 650 ml Results Result Diagram: 04/06/17 0551 04/06/17 0551 Results 24 hrs Laboratory Tests Test 04/08/17 02:09 04/08/17 07:47 04/08/17 12:05 04/08/17 17:06 Bedside Glucose 132 119 181 157 Test 04/08/17 20:52 Bedside Glucose 164 Medications Medications Current Medications Ondansetron HCl (Zofran Inj) 4 mg Q6H PRN IV NAUSEA AND/OR VOMITING; Start at 17:00 Acetaminophen (Tylenol Tab) 650 mg Q6H PRN PO PAIN LEVEL 1-3 OR FEVER; Start at 17:00 Acetaminophen/ Hydrocodone Bitart ([place] (5/325)) 1 tab Q6H PRN PO MODERATE PAIN LEVEL 4-6 Last administered on 04/04/17 14:58; Admin Dose 1 TAB; Start at 17:00 Docusate Sodium (Colace) 100 mg Q12H PRN PO CONSTIPATION Last administered on 06:35; Admin Dose 100 MG; Start 03/28/17 at 17:00 Zolpidem Tartrate (Ambien) 5 mg QHS PRN PO SLEEP; Start 03/28/17 at 17:00 Benazepril HCl (Lotensin) 20 mg BID PO Last administered on 04/08/17 20:59; Admin Dose 20 MG; Start 03/28/17 at 21:00 Metoprolol Tartrate (Lopressor) 25 mg BID PO Last administered on 04/08/17 20: 59; Admin Dose 25 MG; Start 03/28/17 at 21:00 Multivit/Ca Carb/ B Cmplx/FA/Prenat ([place]) 1 tab DAILY PO Last administered on 04/08/17 08:31; Admin Dose 1 TAB; Start 03/29/17 at 09:00 Pantoprazole (Protonix Tab) 40 mg DAILY@06 PO Last administered on 04/08/17 06: 25; Admin Dose 40 MG; Start 03/29/17 at 06:00 Diagnostic Test (Pha) (Accu-Chek) 1 ea 02 XX ; Start 03/29/17 at 02:00 Miscellaneous Information 1 ea NOTE XX ; Start 03/28/17 at 17:30 Glucose (Glutose) 15 gm Q15M PRN PO DECREASED GLUCOSE; Start 03/28/17 at 17:30 Glucose (Glutose) 22.5 gm Q15M PRN PO DECREASED GLUCOSE; Start 03/28/17 at 17: 30 Dextrose (D50w Syringe) 25 ml Q15M PRN IV DECREASED GLUCOSE; Start 03/28/17 at 17:30 Dextrose (D50w Syringe) 50 ml Q15M PRN IV DECREASED GLUCOSE; Start 03/28/17 at 17:30 Glucagon (Glucagen) 1 mg Q15M PRN IM DECREASED GLUCOSE; Start 03/28/17 at 17:30 Glucose (Glutose) 15 gm Q15M PRN BUCCAL DECREASED GLUCOSE; Start 03/28/17 at 17 :30 [facility]isc[facility] This patient salazar... PRN PRN XX WOUND CARE; Start 03/28/17 at 20:00 Ondansetron HCl 4 mg 4 mg Q4H PRN IV NAUSEA AND/OR VOMITING; Start 04/01/17 at 20:30 Dextrose/Sodium Chloride (D5-1/2ns) 1,000 ml @ 40 mls/hr Q24H IV Last administered on 04/06/17 01:32; Admin Dose 40 MLS/HR; Start 04/02/17 at 08:00 Atorvastatin Calcium (Lipitor) 40 mg HS PO Last administered on 04/08/17 20:54 ; Admin Dose 40 MG; Start 04/04/17 at 21:00 Epoetin Wei (Epogen (Esrd)) 6,000 units MoWeFr@17 SC Last administered on 17:02; Admin Dose 6,000 UNITS; Start 04/06/17 at 17:00 Morphine Sulfate 2 mg 2 mg Q2 PRN IV SEVERE PAIN LEVEL 7-10 Last administered on 04/08/17 20:57; Admin Dose 2 MG; Start 04/05/17 at 13:00 Piperacillin Sod/ Tazobactam Sod (Zosyn 2.25gm/ 50ml (Pmx)) 50 ml @ 100 mls/hr Q8 IVPB Last administered on 04/08/17 21:32; Admin Dose 100 MLS/HR; Start at 18:00 LISA MERRITT MD Apr 08, 2017 21:41
[2017-04-09] VITALS (20 sets, daily range): BP systolic 116–174; BP diastolic 44–71; PULSE 52–67; RESP 10–23
[2017-04-09] MEDS: DEXTROSE 5%-0.45% NACL 1,000 ML IV SCH (00:02)
[2017-04-09] MEDS: ACCU-CHEK XX SCH (02:00)
[2017-04-09] MEDS: PANTOPRAZOLE (EC) 40 MG TAB PO SCH (05:23)
[2017-04-09] MEDS: PIPER-TAZO 2.25 GM (PMX) 50 ML IVPB SCH (05:23)
[2017-04-09] MEDS: morphine 2 MG INJ IV PRN ×5 (05:26→22:22)
[2017-04-09 06:23] LABS: BASOPHILS % 0.4 % (0.0-2.0); EOSINOPHILS # 0.4 10^3/ul (0.0-0.5); EOSINOPHILS % 3.8 % (0.0-7.0); HEMATOCRIT 23.1 % (42.0-52.0); HEMOGLOBIN 7.2 g/dl (14.0-18.0); LYMPHOCYTES # 1.9 10^3/ul (0.8-2.9); LYMPHOCYTES % 18.8 % (15.0-51.0); MEAN CORPUSCULAR HEMOGLOBIN 32.7 pg (29.0-33.0); MEAN CORPUSCULAR HGB CONC 31.2 g/dl (32.0-37.0); MEAN PLATELET VOLUME 11.5 fl (7.4-10.4); MONOCYTE # 1.4 10^3/ul (0.3-0.9); MONOCYTES % 13.3 % (0.0-11.0); NEUTROPHILS % 63.2 % (39.0-77.0); PLATELET COUNT 345 10^3/UL (140-415); RED CELL DISTRIBUTION WIDTH 15.9 % (11.5-14.5); WHITE BLOOD COUNT 10.3 10^3/ul (4.8-10.8)
[2017-04-09 06:48] LABS: INR 1.54; PROTIME 18.6 Sec (12.2-14.2); PT RATIO 1.5
[2017-04-09 06:49] LABS: PARTIAL THROMBOPLASTIN TIME 49.2 Sec (25.0-35.0)
[2017-04-09 06:52] LABS: THROMBIN TIME 15.1 SEC (13.8-19.1)
[2017-04-09 06:55] LABS: CALCIUM 8.3 mg/dl (8.4-10.2); CREATININE 7.7 mg/dl (0.61-1.24); POTASSIUM 4.2 mmol/L (3.5-5.1)
[2017-04-09] MEDS ORDERED: BUPIVACAINE 0.5% (SDV) 30 ML INJ ONE (07:25)
[2017-04-09] MEDS ORDERED: POLYMYXIN/BACITRACIN 1L IRRIG ONE (07:25)
[2017-04-09] MEDS ORDERED: LIDOCAINE 2% (MDV) 20 ML INJ ONE ×2 (07:25→08:44)
[2017-04-09] MEDS: SEVELAMER 800 MG TAB PO SCH ×3 (07:35→16:41)
[2017-04-09] MEDS: BENAZEPRIL 20 MG TAB PO SCH ×2 (07:37→20:56)
[2017-04-09] MEDS: MULTIVIT/CA CARB/B CMPLX/FA TAB PO SCH (07:37)
[2017-04-09] MEDS: INSULIN ASPART [NOVOLOG] 3 ML PEN SC SCH ×4 (07:37→20:57)
[2017-04-09] MEDS: METOPROLOL 25 MG TAB PO SCH ×2 (07:37→20:57)
[2017-04-09] MEDS ORDERED: LABETALOL HCL 20MG INJ IV PRN (08:00)
[2017-04-09] MEDS ORDERED: OXYCODONE/ACETAMINOPHEN (5/325) TAB PO PRN ×2 (08:00)
[2017-04-09] MEDS ORDERED: INSULIN ASPART [NOVOLOG] 3 ML PEN SC ONE (08:00)
[2017-04-09] MEDS ORDERED: EPHEDrine SULFATE 50 MG/5 ML SYG IV PRN (08:00)
[2017-04-09] MEDS ORDERED: ONDANSETRON 4 MG INJ IV PRN (08:00)
[2017-04-09] MEDS ORDERED: FENTAnyl 50 MCG/ML VIAL IV PRN (08:00)
[2017-04-09] MEDS ORDERED: HYDROmorphONE (0.2 MG/ML) 10ML SYG IV PRN ×2 (08:00)
[2017-04-09] MEDS ORDERED: MEPERIDINE 25 MG INJ IV PRN (08:00)
[2017-04-09] MEDS ORDERED: ALBUMIN HUMAN 5% 250 ML IV PRN (08:00)
[2017-04-09] MEDS ORDERED: DIPHENHYDRAMINE 50 MG INJ IV PRN (08:00)
[2017-04-09] MEDS ORDERED: hydrALAzine 20 MG INJ IV PRN (08:00)
[2017-04-09] MEDS ORDERED: PROCHLORPERAZINE 10 MG INJ IV PRN (08:00)
--- NOTE | 2017-04-09 08:12 | HPN ---
Date/Time of Note Date/Time of Note DATE: 04/09/17 TIME: 08:12 Interval H&P Admission Note Pt. seen H&P reviewed: No system changes CHAU BRANCH DPM Apr 09, 2017 08:12
--- NOTE | 2017-04-09 08:12 | PN ---
Date/Time of Note Date/Time of Note DATE: 04/09/17 TIME: 08:11 Assessment/Plan Lines/Catheters IV [facility]atheter Type (from [email or web address] RIGHT GROIN PERMACATH Correa in Place (from [facility] [[email or web address] No Assessment/Plan Problems: (1) CKD (chronic kidney disease) Status: Acute Qualifiers: Chronic kidney disease stage: unspecified stage Qualified Code: N18.9 - Chronic kidney disease, unspecified CKD stage (2) Dialysis catheter clot or failure Status: Acute (3) Gangrene of toe of right foot (4) Diabetes, polyneuropathy (5) Osteomyelitis (6) Abscess of right foot (7) Pressure ulcer of right ankle Assessment/Plan Patient is scheduled today for amputation of his right big toe and second toe with debridement of the third toe. Exam/Review of Systems Vital Signs Vitals Vital Signs Date Time Temp Pulse Resp B/P Pulse Ox O2 Delivery O2 Flow Rate FiO2 04/09/17 03:15 98.5 67 18 122/60 98 Room Air Intake and Output 04/08/17 04/08/17 04/09/17 15:00 23:00 07:00 Intake Total 600 ml 550 ml 470 ml Output Total 3600 ml 0 ml 0 ml Balance -3000 ml 550 ml 470 ml Results Result Diagram: 04/09/17 0506 04/09/17 0506 CAHU BRANCH DPM Apr 09, 2017 08:12
[2017-04-09] MEDS ORDERED: MIDAZOLAM 1 MG/ML 2 ML INJ ONE (08:20)
[2017-04-09] MEDS ORDERED: FENTAnyl 50 MCG/ML VIAL ONE (08:20)
[2017-04-09] MEDS ORDERED: METOCLOPRAMIDE 10 MG INJ ONE (08:47)
[2017-04-09] MEDS ORDERED: ONDANSETRON 4 MG INJ ONE (08:47)
[2017-04-09] MEDS ORDERED: ACETAMINOPHEN 1000MG/100ML IV 100 ML ONE (08:49)
--- NOTE | 2017-04-09 08:51 | PN ---
Date/Time of Note Date/Time of Note DATE: 04/09/17 TIME: 08:49 Assessment/Plan Lines/Catheters IV Catheter Type (from [facility]): RIGHT GROIN PERMACATH Correa in Place (from [facility]): No Assessment/Plan Chief Complaint/Hosp Course -Bilateral lower extremity atherosclerosis with gangrene: S/P Angio, Atherectomy of the fem-pop, balloon angioplasty of the fem-pop, tibials. -Patient has severe pedal disease however we were able to restore in-line flow from the PIGGYBACK CLERK to the foot, Recommednamputation of the 1st and 2nd toes for now, Will await progression of his heel. Discussed with our podiatry colleagues -End-stage renal disease: S/P LUE brachiocephalic fistula. tolerating dialysis sessions via his new right groin catheter. Recommend running low flow sessions of 200's -Discussed vascular optimization (blood pressure meds, diet, nutrition, exercise , sugar control, antiplatelets). -Discussed findings, plan and management with the patient and the daughter at the bedside with a certified respiratory clinician and they understand. -Thank you for allowing us to partake in the care of your patient. Please call with any questions. Problems: Subjective 24 Hr Interval Summary no new vascular events overnight Exam/Review of Systems Vital Signs Vitals Vital Signs Date Time Temp Pulse Resp B/P Pulse Ox O2 Delivery O2 Flow Rate FiO2 04/09/17 03:15 98.5 67 18 122/60 98 Room Air Intake and Output 04/08/17 04/08/17 04/09/17 14:59 22:59 06:59 Intake Total 600 ml 550 ml 470 ml Output Total 3600 ml 0 ml 0 ml Balance -3000 ml 550 ml 470 ml Exam Free Text/Dictation GENERAL APPEARANCE: Alert, oriented x3. LUNGS: Clear to auscultation bilaterally. CARDIOVASCULAR: S1, S2 present ABDOMEN: Soft, nontender, nondistended. Bowel sounds positive. EXTREMITIES: -Right Lower extremity: Palpable femoral pulse. Nonpalpable pedal pulse. Motor and sensory intact. Capillary refill 3-4 seconds. Gangrene and full demarcation of the 1st and 2nd toe, right heel with eschar and gangrene, edema 1 -2+ (likely reperfusion), HD Perm catheter intact -Left lower extremity: Palpable femoral pulse. groin soft, AKA stump well healed. Capillary refill about 3 seconds. Motor and sensory intact. Results Result Diagram: 04/09/17 0506 04/09/17 0506 CYNDI CARR MD Apr 09, 2017 08:51
--- NOTE | 2017-04-09 09:26 | OPR ---
Date/Time of Note Date/Time of Note DATE: 04/09/17 TIME: 09:26 Operative Report Procedure Date: Apr 09, 2017 Preoperative Diagnosis Right hallux gangrene Right second toe gangrene Right distal third toe gangrene Peripheral vascular disease Left below-knee amputation Diabetes mellitus Peripheral neuropathy Postoperative Diagnosis Right hallux gangrene Right second toe gangrene Right distal third toe gangrene Peripheral vascular disease Left below-knee amputation Diabetes mellitus Peripheral neuropathy Operation Performed Partial first ray amputation right foot Right second toe amputation Surgeon: CHAU BRANCH DPM Anesthesia Type: general, moderate sedation Estimated Blood Loss: minimal Transfusion Required: no Specimens Partial right first ray including the hallux and the head of the first metatarsal Right second toe Complications: no Pt Condition Post Procedure: stable Disposition: PACU Indications This is a pleasant 66-year-old male patient who has been suffering with gangrenous changes to the right foot including the hallux, second toe and distal third toe with peripheral vascular disease and diabetes mellitus for the past several years. Patient was evaluated and was found to have gangrenous changes to the hallux, second toe and distal third toe. Risks and complications of this type of surgery was discussed with patient in great detail. Risks and complications discussed included, but are not limited to, postoperative infection, postoperative pain, hardware failure, failure of surgery to correct the problem, need for additional surgical procedures, deep venous thrombosis, limb loss and loss of life. Patient understands the discussion and agrees to the procedure. An informed consent was signed, obtained and placed in the chart. No guarantees or warrantees was given or implied as to the outcome of the procedure either in verbal or written form. Operative\Procedure Findings Gangrene of the right hallux Gangrene of the right second toe Distal gangrene right third toe Procedure Description The patient was seen in the preoperative area. Proposed surgery was discussed with patient in great detail. Opportunity was given to patient to ask questions and all questions were answered. Patient acknowledges understanding of the discussion. An informed consent was obtained, signed and placed in the chart. No guarantee or warranty was given or implied as to the outcome of the procedure either in verbal and written form. Patient was then taken to the operating room and was placed on the operating table in the supine position. Patient was placed under general anesthesia by the anesthesiologist. The right lower extremity was scrubbed, prepped and draped in the usual aseptic manner. Procedure #1: Amputation of right hallux A skin marker was used to amanda the incision for the hallux. A #10 blade was utilized to make an incision which was in a fishmouth configuration all the way down to bone. Bleeders were cauterized as necessary. The hallux was disarticulated and dissected and passed the back table. Next, all visible ligamentous and tendinous structures were then sharply debrided and passed the back table. Procedure #2: Amputation of right second toe A skin marker was used to amanda the incision for the second toe of the right foot. A #10 blade was utilized to make an incision which was in a fish[place] configuration as well all the way down to bone. Bleeders were cauterized as necessary. Second toe was disarticulated and dissected past the back table. Ligamentous and tendinous structures that were visible were then also sharply debrided and passed the back table. Procedure #3: Metatarsal head resection right first metatarsal The incision of the hallux was extended more proximal and using sharp dissection , the head of the first metatarsal was exposed. A power saw was used to cut the head of the first metatarsal to facilitate closure of the skin with no tension. Again, visible tendinous and ligamentous structures were then excised along with the sesamoid and the sesamoid apparatus using sharp #10 blade. Bleeders were cauterized as necessary. The wound was flushed with copious amounts of sterile saline. The wound was then prepped for closure with no tension. I used 3-0 Vicryl suture to close the subcutaneous layer and I used 0 Prolene to close the skin and simple suture technique. Postop injection of 0.5% Marcaine plain was given. Sterile dressing was applied to the right foot. The patient tolerated procedure and anesthesia well. He was transferred to recovery room with vital signs stable and vascular status intact to the remaining right limb. The patient will be sent back to the floor after postoperative monitoring. Postoperative orders were written. Patient will be seen in house. Nonweightbearing ordered for the right foot along with x-rays. CHAU BRANCH DPM Apr 09, 2017 09:26
--- NOTE | 2017-04-09 09:26 | OPPN ---
Date/Time of Note Date/Time of Note DATE: 04/09/17 TIME: 09:19 Operative Report Free Text/Dictation Preoperative Diagnosis: Gangrene right hallux, gangrene right second toe, peripheral vascular disease, osteomyelitis, diabetes mellitus with polyneuropathy Postoperative Diagnosis: Same Operation/Procedure Performed: Amputation of the right hallux and amputation of the right second toe Provider: [place] Branch DPM, FACFAS Assist: None Estimated blood loss: minimal Transfusion required: No Specimen: Right hallux and right second toe Graft/Implant: None Complications: None Transfusion Required: no HOUSTON BRANCH DPM Apr 09, 2017 09:26
--- NOTE | 2017-04-09 11:01 | RADRPT ---
PROCEDURE: XR Foot. CLINICAL INDICATION: Postoperative evaluation right foot TECHNIQUE: 3 views of the right foot are available for review. COMPARISON: Radiographs of the right foot 2016 and MRI of the right foot April 06, 2017 FINDINGS: There is amputation of the second digit. There is also indication of the first digit and the first m etatarsal head. The overlying soft tissue swelling. There are vascular calcifications. Joint spaces are preserved. There is a posterior heel ulceration near the calcaneus. IMPRESSION: 1. Amputation of the first digit/first metatarsal head and second digit. 2. Distal soft tissue swelling and vascular calcifications. 3. Posterior ulceration near the calcaneus. RPTAT: [facility] .Onel Sanchez MD, MD Date Time Electronically viewed and signed by .Onel Sanchez MD, on 04/09/2017 11:00 .Amarilys/
--- NOTE | 2017-04-09 14:38 | CONS ---
Date/Time of Note Date/Time of Note DATE: 04/09/17 TIME: 14:37 Assessment/Plan Assessment/Plan Additional Assessment/Plan 1. ESRD on HD 2. Catheter malfunction 3. Hypertension 4. Diabetes melitus 5. hyperkalemia due to inadequate/missed HD due to non functioning HD catheter 6. Gangrene of the foot s/p AORTOILIAC WITH RLE ANGIOGRAM, FEM-POP ATHERECTOMY, FEM-POP ANGIOPLASTY, VENDER BALLOON ANGIOPLASTY, TPT ANGIOPLASTY 7. LE sweling rule out DVT Plan : s/p HD yesterday- will conintue HD EVE heard being in hospital. Awaiting LE surgery by Podiatry, MRI done will follow up Consultation Date/Type/Reason Admit Date/Time Mar 30, 2017 at 16:05 Initial Consult Date 03/28/17 Type of Consultation: NEPHROLOGY Referring Provider: SHANNAN DELUCA Exam/Review of Systems Vital Signs Vitals Vital Signs Date Time Temp Pulse Resp B/P Pulse Ox O2 Delivery O2 Flow Rate FiO2 04/09/17 10:19 52 10 120/50 96 04/09/17 10:19 Room Air 04/09/17 09:25 99.8 Intake and Output 04/08/17 04/08/17 04/09/17 15:00 23:00 07:00 Intake Total 600 ml 550 ml 470 ml Output Total 3600 ml 0 ml 0 ml Balance -3000 ml 550 ml 470 ml Exam Constitutional: alert, oriented, well developed Respiratory: clear to auscultation, normal air movement Cardiovascular: nl pulses, regular rate and rhythm Gastrointestinal: non-tender, soft Musculoskeletal: other (right foot ulcer) Extremities: other (diminshed pulses right foot) Skin: other (right foot diabetic ulcer) Results Result Diagram: 04/09/17 0506 04/09/17 0506 Results 24 hrs Laboratory Tests Test 04/08/17 17:06 04/08/17 20:52 04/09/17 05:06 04/09/17 07:24 Bedside Glucose 157 164 98 White Blood Count 10.3 Red Blood Count 2.20 L Hemoglobin 7.2 L Hematocrit 23.1 L Mean Corpuscular Volume 105.0 H Mean Corpuscular Hemoglobin 32.7 Mean Corpuscular Hemoglobin Concent 31.2 L Red Cell Distribution Width 15.9 H Platelet Count 335 Mean Platelet Volume 11.5 H Neutrophils % 63.2 Lymphocytes % 18.8 Monocytes % 13.3 H Eosinophils % 3.8 Basophils % 0.4 Nucleated Red Blood Cells % 0.0 Neutrophils # (Manual) 6.5 Lymphocytes # 1.9 Monocytes # 1.4 H Eosinophils # 0.4 Basophils # 0.0 Nucleated Red Blood Cells # 0.0 Prothrombin Time 18.6 #H Prothrombin Time Ratio 1.5 INR International Normalized Ratio 1.54 Activated Partial Thromboplast Time 49.2 H Thrombin Time 15.1 Sodium Level 135 Potassium Level 4.2 Chloride Level 98 Carbon Dioxide Level 28 Anion Gap 13 Blood Urea Nitrogen 48 H Creatinine 7.70 H Glucose Level 94 Calcium Level 8.3 L Hepatitis B Surface Antigen NEGATIVE Hepatitis C Antibody NEGATIVE Test 04/09/17 09:30 04/09/17 11:56 Bedside Glucose 93 86 Medications Medications Current Medications Ondansetron HCl (Zofran Inj) 4 mg Q6H PRN IV NAUSEA AND/OR VOMITING; Start at 17:00 Acetaminophen (Tylenol Tab) 650 mg Q6H PRN PO PAIN LEVEL 1-3 OR FEVER; Start at 17:00 Acetaminophen/ Hydrocodone Bitart ([place] (5/325)) 1 tab Q6H PRN PO MODERATE PAIN LEVEL 4-6 Last administered on 04/04/17 14:58; Admin Dose 1 TAB; Start at 17:00 Docusate Sodium (Colace) 100 mg Q12H PRN PO CONSTIPATION Last administered on 06:35; Admin Dose 100 MG; Start 03/28/17 at 17:00 Zolpidem Tartrate (Ambien) 5 mg QHS PRN PO SLEEP; Start 03/28/17 at 17:00 Benazepril HCl (Lotensin) 20 mg BID PO Last administered on 04/08/17 20:59; Admin Dose 20 MG; Start 03/28/17 at 21:00 Metoprolol Tartrate (Lopressor) 25 mg BID PO Last administered on 04/08/17 20: 59; Admin Dose 25 MG; Start 03/28/17 at 21:00 Multivit/Ca Carb/ B Cmplx/FA/Prenat ([place]Chere[place]) 1 tab DAILY PO Last administered on 04/08/17 08:31; Admin Dose 1 TAB; Start 03/29/17 at 09:00 Pantoprazole (Protonix Tab) 40 mg DAILY@06 PO Last administered on 04/09/17 05: 23; Admin Dose 40 MG; Start 03/29/17 at 06:00 Diagnostic Test (Pha) (Accu-Chek) 1 ea 02 XX ; Start 03/29/17 at 02:00 Miscellaneous Information 1 ea NOTE XX ; Start 03/28/17 at 17:30 Glucose (Glutose) 15 gm Q15M PRN PO DECREASED GLUCOSE; Start 03/28/17 at 17:30 Glucose (Glutose) 22.5 gm Q15M PRN PO DECREASED GLUCOSE; Start 03/28/17 at 17: 30 Dextrose (D50w Syringe) 25 ml Q15M PRN IV DECREASED GLUCOSE; Start 03/28/17 at 17:30 Dextrose (D50w Syringe) 50 ml Q15M PRN IV DECREASED GLUCOSE; Start 03/28/17 at 17:30 Glucagon (Glucagen) 1 mg Q15M PRN IM DECREASED GLUCOSE; Start 03/28/17 at 17:30 Glucose (Glutose) 15 gm Q15M PRN BUCCAL DECREASED GLUCOSE; Start 03/28/17 at 17 :30 Miscellaneous Information (Pending [facility] Order For Wound Care) This patient salazar... PRN PRN XX WOUND CARE; Start 03/28/17 at 20:00 Ondansetron HCl (Zofran Inj) 4 mg Q4H PRN IV NAUSEA AND/OR VOMITING; Start 04/01 at 20:30 Atorvastatin Calcium (Lipitor) 40 mg HS PO Last administered on 04/08/17 20:54 ; Admin Dose 40 MG; Start 04/04/17 at 21:00 Epoetin Wei (Epogen (Esrd)) 6,000 units MoWeFr@17 SC Last administered on 17:02; Admin Dose 6,000 UNITS; Start 04/06/17 at 17:00 Morphine Sulfate (morphine) 2 mg Q2 PRN IV SEVERE PAIN LEVEL 7-10 Last administered on 04/09/17 10:19; Admin Dose 2 MG; Start 04/05/17 at 13:00 LISA MERRITT MD Apr 09, 2017 14:38
--- NOTE | 2017-04-09 16:47 | PN ---
Date/Time of Note Date/Time of Note DATE: 04/09/17 TIME: 16:45 Assessment/Plan VTE Prophylaxis VTE Prophylaxis Intervention: LMWH Lines/Catheters IV Catheter Type (from Nrs): Peripheral IV Urinary Cath still in place: No Assessment/Plan Chief Complaint/Hosp Course 66 yo male with DMII, ESRD on HD, PAD leading to gangrene of toes, s/p AKA of LLE. S/p revascularization surgery, pending resection of gangrenous digits of RLE Foot pain and swelling: - Suspect this is dependent edema from him keeping foot hanging off bed 2/2 pain - Pain from reperfusion injury, Dr Huerta following from vascular Gangrene: - s/p resection of gangernous toes PAD: - Continue aspirin, statin - S/P Angio, Atherectomy of the fem-pop, balloon angioplasty of the fem-pop, tibials DMII: - Continue basal/bolus insulin ESRD: - Continue HD per renal Anemia of CKD: - EPO per renal Dispo plan likely home Tuesday Problems: Subjective 24 Hr Interval Summary Free Text/Dictation Surgical resection of gangrenous toes today Feels well when seen following surgery Exam/Review of Systems Vital Signs Vitals Vital Signs Date Time Temp Pulse Resp B/P Pulse Ox O2 Delivery O2 Flow Rate FiO2 04/09/17 14:00 98.6 53 20 120/67 96 04/09/17 10:19 Room Air Intake and Output 04/08/17 04/08/17 04/09/17 15:00 23:00 07:00 Intake Total 600 ml 550 ml 470 ml Output Total 3600 ml 0 ml 0 ml Balance -3000 ml 550 ml 470 ml Exam Constitutional: alert, oriented, well developed Psych: nl mood/affect, no complaints Head: atraumatic, normocephalic Eyes: EOMI, PERRL, nl conjunctiva, nl lids, nl sclera ENMT: nl external ears & nose, nl lips & teeth, nl nasal mucosa & septum Neck: non-tender, supple Respiratory: clear to auscultation, normal air movement Cardiovascular: nl pulses, regular rate and rhythm Gastrointestinal: nl liver, spleen, non-tender, soft Musculoskeletal: nl extremities to inspection, nl gait and stance Extremities: normal pulses Neurological: 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 SUPPORT 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 II-XII 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, nl mental status, nl speech, nl strength Skin: nl turgor, No rash or lesions Lymph: nl lymph nodes Results Result Diagram: 04/09/17 0506 04/09/17 0506 Results 24 hrs Laboratory Tests Test 04/08/17 17:06 04/08/17 20:52 04/09/17 05:06 04/09/17 07:24 Bedside Glucose 157 164 98 White Blood Count 10.3 Red Blood Count 2.20 L Hemoglobin 7.2 L Hematocrit 23.1 L Mean Corpuscular Volume 105.0 H Mean Corpuscular Hemoglobin 32.7 Mean Corpuscular Hemoglobin Concent 31.2 L Red Cell Distribution Width 15.9 H Platelet Count 335 Mean Platelet Volume 11.5 H Neutrophils % 63.2 Lymphocytes % 18.8 Monocytes % 13.3 H Eosinophils % 3.8 Basophils % 0.4 Nucleated Red Blood Cells % 0.0 Neutrophils # (Manual) 6.5 Lymphocytes # 1.9 Monocytes # 1.4 H Eosinophils # 0.4 Basophils # 0.0 Nucleated Red Blood Cells # 0.0 Prothrombin Time 18.6 #H Prothrombin Time Ratio 1.5 INR International Normalized Ratio 1.54 Activated Partial Thromboplast Time 49.2 H Thrombin Time 15.1 Sodium Level 135 Potassium Level 4.2 Chloride Level 98 Carbon Dioxide Level 28 Anion Gap 13 Blood Urea Nitrogen 48 H Creatinine 7.70 H Glucose Level 94 Calcium Level 8.3 L Hepatitis B Surface Antigen NEGATIVE Hepatitis C Antibody NEGATIVE Test 04/09/17 09:30 04/09/17 11:56 Bedside Glucose 93 86 Medications Medications Current Medications Ondansetron HCl (Zofran Inj) 4 mg Q6H PRN IV NAUSEA AND/OR VOMITING; Start at 17:00 Acetaminophen (Tylenol Tab) 650 mg Q6H PRN PO PAIN LEVEL 1-3 OR FEVER; Start at 17:00 Acetaminophen/ Hydrocodone Bitart ([place] (5/325)) 1 tab Q6H PRN PO MODERATE PAIN LEVEL 4-6 Last administered on 04/04/17 14:58; Admin Dose 1 TAB; Start at 17:00 Docusate Sodium (Colace) 100 mg Q12H PRN PO CONSTIPATION Last administered on 06:35; Admin Dose 100 MG; Start 03/28/17 at 17:00 Zolpidem Tartrate (Ambien) 5 mg QHS PRN PO SLEEP; Start 03/28/17 at 17:00 Benazepril HCl (Lotensin) 20 mg BID PO Last administered on 04/08/17 20:59; Admin Dose 20 MG; Start 03/28/17 at 21:00 Metoprolol Tartrate (Lopressor) 25 mg BID PO Last administered on 04/08/17 20: 59; Admin Dose 25 MG; Start 03/28/17 at 21:00 Multivit/Ca Carb/ B Cmplx/FA/Prenat ([place]) 1 tab DAILY PO Last administered on 04/08/17 08:31; Admin Dose 1 TAB; Start 03/29/17 at 09:00 Pantoprazole (Protonix Tab) 40 mg DAILY@06 PO Last administered on 04/09/17 05: 23; Admin Dose 40 MG; Start 03/29/17 at 06:00 Diagnostic Test (Pha) (Accu-Chek) 1 ea 02 XX ; Start 03/29/17 at 02:00 Miscellaneous Information 1 ea NOTE XX ; Start 03/28/17 at 17:30 Glucose (Glutose) 15 gm Q15M PRN PO DECREASED GLUCOSE; Start 03/28/17 at 17:30 Glucose (Glutose) 22.5 gm Q15M PRN PO DECREASED GLUCOSE; Start 03/28/17 at 17: 30 Dextrose (D50w Syringe) 25 ml Q15M PRN IV DECREASED GLUCOSE; Start 03/28/17 at 17:30 Dextrose (D50w Syringe) 50 ml Q15M PRN IV DECREASED GLUCOSE; Start 03/28/17 at 17:30 Glucagon (Glucagen) 1 mg Q15M PRN IM DECREASED GLUCOSE; Start 03/28/17 at 17:30 Glucose (Glutose) 15 gm Q15M PRN BUCCAL DECREASED GLUCOSE; Start 03/28/17 at 17 :30 Miscellaneous Information (Pending [facility] Order For Wound Care) This patient salazar... PRN PRN XX WOUND CARE; Start 03/28/17 at 20:00 Ondansetron HCl (Zofran Inj) 4 mg Q4H PRN IV NAUSEA AND/OR VOMITING; Start 04/01 at 20:30 Atorvastatin Calcium (Lipitor) 40 mg HS PO Last administered on 04/08/17 20:54 ; Admin Dose 40 MG; Start 04/04/17 at 21:00 Epoetin Wei (Epogen (Esrd)) 6,000 units MoWeFr@17 SC Last administered on 17:02; Admin Dose 6,000 UNITS; Start 04/06/17 at 17:00 Morphine Sulfate (morphine) 2 mg Q2 PRN IV SEVERE PAIN LEVEL 7-10 Last administered on 04/09/17 16:41; Admin Dose 2 MG; Start 04/05/17 at 13:00 CHRISTINE ALEXANDRE MD Apr 09, 2017 16:47
[2017-04-09] MEDS: HYDROCODONE/APAP (5/325) TAB PO PRN (20:56)
[2017-04-09] MEDS: ATORVASTATIN 40 MG TAB PO SCH (20:56)
[2017-04-10] MEDS: ACCU-CHEK XX SCH (02:00)
[2017-04-10] MEDS: morphine 2 MG INJ IV PRN ×3 (03:09→09:00)
[2017-04-10 03:10] VITALS: BP 144/65; RESP 18
[2017-04-10 05:24] LABS: ABNORMAL IP MESSAGE 1; BASOPHILS % 0.3 % (0.0-2.0); EOSINOPHILS # 0.4 10^3/ul (0.0-0.5); EOSINOPHILS % 2.7 % (0.0-7.0); HEMATOCRIT 23.9 % (42.0-52.0); HEMOGLOBIN 7.2 g/dl (14.0-18.0); LYMPHOCYTES # 2.6 10^3/ul (0.8-2.9); LYMPHOCYTES % 19.8 % (15.0-51.0); MEAN CORPUSCULAR HEMOGLOBIN 32.3 pg (29.0-33.0); MEAN CORPUSCULAR HGB CONC 30.1 g/dl (32.0-37.0); MEAN CORPUSCULAR VOLUME 107.2 fl (82.0-101.0); MONOCYTE # 1.8 10^3/ul (0.3-0.9); NEUTROPHILS % 62.7 % (39.0-77.0); PLATELET COUNT 335 10^3/UL (140-415); POSITIVE DIFF @See below; RED BLOOD COUNT 2.23 10^6/ul (4.70-6.10); RED CELL DISTRIBUTION WIDTH 15.9 % (11.5-14.5); WHITE BLOOD COUNT 13.2 10^3/ul (4.8-10.8)
[2017-04-10] MEDS: PANTOPRAZOLE (EC) 40 MG TAB PO SCH (06:19)
[2017-04-10 07:55] VITALS: BP 159/70; RESP 16
[2017-04-10] MEDS: INSULIN ASPART [NOVOLOG] 3 ML PEN SC SCH ×4 (08:00→21:00)
[2017-04-10] MEDS: SEVELAMER 800 MG TAB PO SCH ×3 (08:03→17:39)
[2017-04-10] MEDS: MULTIVIT/CA CARB/B CMPLX/FA TAB PO SCH (08:03)
[2017-04-10] MEDS: METOPROLOL 25 MG TAB PO SCH ×2 (08:03→21:00)
[2017-04-10] MEDS: BENAZEPRIL 20 MG TAB PO SCH ×2 (08:04→21:00)
[2017-04-10] MEDS: HYDROCODONE/APAP (5/325) TAB PO PRN ×3 (08:09→21:59)
[2017-04-10] MEDS ORDERED: HYDROmorphONE 1 MG/ML SYG IV STA (09:43)
[2017-04-10] MEDS: morphine (ER) 15 MG TAB PO SCH ×2 (12:12→21:00)
--- NOTE | 2017-04-10 13:17 | PN ---
DATE: 04/10/2017 SUBJECTIVE DATA: The patient is status post amputation of the right hallux and 2nd toe on 04/09/2017. The patient was seen today. He reports pain in the right foot, but not too much according to the patient. The patient denies fever, chills, nausea, vomiting. Reports no trauma. Denies chest pain, shortness of breath. REVIEW OF SYSTEMS: As per HPI. PHYSICAL EXAMINATION: Patient is lying supine in bed in no acute distress. Bandages have a slight amount of bloody strike through on the right foot that was removed. Foot was examined. Sutures are intact. Status post right hallux, 2nd toe amputation noted. No wound dehiscence noted. There is some dry blood present around the incision site. There is no pus. No malodor. Area is mildly tender to palpation. Patient also has a dry eschar on the right heel and the heel continues to be painful. Dorsalis pedis and posterior tibial pulses weak. Distal right 3rd toe is unchanged. LABORATORY AND DIAGNOSTIC DATA: White blood count is 13.2, hematocrit, hemoglobin 7.2, hematocrit 23.9, that is unchanged since after surgery. X-RAYS: Reviewed, which shows amputation of the right hallux, right 2nd toe and head of the 1st metatarsal. There is no gas in the tissue. ASSESSMENT: 1. Acquired absence of right great toe. 2. Acquired absence of right 2nd toe. 3. Right heel decubitus ulceration. 4. Peripheral vascular disease. 5. Peripheral neuropathy. 6. Diabetes mellitus. 7. End-stage renal disease, on dialysis. 8. Status post below knee amputation, left lower extremity. PLAN: Sterile dressing was changed today. The wound appears to be stable with no sign of infection. There is no wound dehiscence. Prognosis continues to be guarded. The patient has a high risk for wound dehiscence and wound infection and limb loss. The patient will be continued to followed in house. He is to remain nonweightbearing at this time. I will see the patient tomorrow. Dictated By: Houston Cuevas DPM /juan/evan /Document#: [id number]
[2017-04-10 14:35] VITALS: BP 169/70; RESP 18
--- NOTE | 2017-04-10 16:40 | PN ---
Date/Time of Note Date/Time of Note DATE: 04/10/17 TIME: 16:38 Assessment/Plan VTE Prophylaxis VTE Prophylaxis Intervention: LMWH Lines/Catheters [facility] Saline Lock Urinary Cath still in place: No Assessment/Plan Chief Complaint/Hosp Course 66 yo male with DMII, ESRD on HD, PAD leading to gangrene of toes, s/p AKA of LLE. S/p revascularization surgery. Now s/p resection of gangrenous digits 04/09 PAD: - Continue aspirin, statin - S/P Angio, Atherectomy of the fem-pop, balloon angioplasty of the fem-pop, tibials Foot pain and swelling: - Suspect this is dependent edema from him keeping foot hanging off bed 2/2 pain - Pain from reperfusion injury, Dr Huerta following from vascular Gangrene: - s/p resection of gangrenous toes DMII: - Continue basal/bolus insulin ESRD: - Continue HD per renal Anemia of CKD: - EPO per renal Dispo plan home when cleared by surgeons Problems: Subjective 24 Hr Interval Summary Free Text/Dictation Continued pain in foot, requiring diluadid Exam/Review of Systems Vital Signs Vitals Vital Signs Date Time Temp Pulse Resp B/P Pulse Ox O2 Delivery O2 Flow Rate FiO2 04/10/17 14:35 98.8 73 18 169/70 93 04/09/17 10:19 Room Air Intake and Output 04/09/17 04/09/17 04/10/17 15:00 23:00 07:00 Intake Total 250 ml 300 ml 240 ml Output Total 10 ml 2 ml 0 ml Balance 240 ml 298 ml 240 ml Exam Constitutional: alert, oriented, well developed Psych: nl mood/affect, no complaints Head: atraumatic, normocephalic Eyes: EOMI, PERRL, nl conjunctiva, nl lids, nl sclera ENMT: nl external ears & nose, nl lips & teeth, nl nasal mucosa & septum Neck: non-tender, supple Respiratory: clear to auscultation, normal air movement Cardiovascular: nl pulses, regular rate and rhythm Gastrointestinal: nl liver, spleen, non-tender, soft Musculoskeletal: nl extremities to inspection, nl gait and stance Extremities: normal pulses Neurological: 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 [place] II-XII 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, nl mental status, nl speech, nl strength Skin: nl turgor, No rash or lesions Lymph: nl lymph nodes Results Result Diagram: 04/10/17 0501 04/09/17 0506 Results 24 hrs Laboratory Tests Test 04/09/17 16:47 04/09/17 20:46 04/10/17 05:01 04/10/17 08:05 Bedside Glucose 161 135 90 White Blood Count 13.2 #H Red Blood Count 2.23 L Hemoglobin 7.2 L Hematocrit 23.9 L Mean Corpuscular Volume 107.2 H Mean Corpuscular Hemoglobin 32.3 Mean Corpuscular Hemoglobin Concent 30.1 L Red Cell Distribution Width 15.9 H Platelet Count 335 Mean Platelet Volume 11.0 H Neutrophils % 62.7 Lymphocytes % 19.8 Monocytes % 14.0 H Eosinophils % 2.7 Basophils % 0.3 Nucleated Red Blood Cells % 0.0 Neutrophils # (Manual) 8.2 H Lymphocytes # 2.6 Monocytes # 1.8 H Eosinophils # 0.4 Basophils # 0.0 Nucleated Red Blood Cells # 0.0 Test 04/10/17 12:10 Bedside Glucose 141 Medications Medications Current Medications Ondansetron HCl (Zofran Inj) 4 mg Q6H PRN IV NAUSEA AND/OR VOMITING; Start at 17:00 Acetaminophen (Tylenol Tab) 650 mg Q6H PRN PO PAIN LEVEL 1-3 OR FEVER; Start at 17:00 Acetaminophen/ Hydrocodone Bitart ([place] (5/325)) 1 tab Q6H PRN PO MODERATE PAIN LEVEL 4-6 Last administered on 04/10/17 15:08; Admin Dose 1 TAB; Start at 17:00 Docusate Sodium (Colace) 100 mg Q12H PRN PO CONSTIPATION Last administered on 06:35; Admin Dose 100 MG; Start 03/28/17 at 17:00 Zolpidem Tartrate (Ambien) 5 mg QHS PRN PO SLEEP; Start 03/28/17 at 17:00 Benazepril HCl (Lotensin) 20 mg BID PO Last administered on 04/10/17 08:04; Admin Dose 20 MG; Start 03/28/17 at 21:00 Metoprolol Tartrate (Lopressor) 25 mg BID PO Last administered on 04/10/17 08: 03; Admin Dose 25 MG; Start 03/28/17 at 21:00 Multivit/Ca Carb/ B Cmplx/FA/Prenat ([place]) 1 tab DAILY PO Last administered on 04/10/17 08:03; Admin Dose 1 TAB; Start 03/29/17 at 09:00 Pantoprazole (Protonix Tab) 40 mg DAILY@06 PO Last administered on 04/10/17 06 :19; Admin Dose 40 MG; Start 03/29/17 at 06:00 Diagnostic Test (Pha) (Accu-Chek) 1 ea 02 XX ; Start 03/29/17 at 02:00 Miscellaneous Information 1 ea NOTE XX ; Start 03/28/17 at 17:30 Glucose (Glutose) 15 gm Q15M PRN PO DECREASED GLUCOSE; Start 03/28/17 at 17:30 Glucose (Glutose) 22.5 gm Q15M PRN PO DECREASED GLUCOSE; Start 03/28/17 at 17: 30 Dextrose (D50w Syringe) 25 ml Q15M PRN IV DECREASED GLUCOSE; Start 03/28/17 at 17:30 Dextrose (D50w Syringe) 50 ml Q15M PRN IV DECREASED GLUCOSE; Start 03/28/17 at 17:30 Glucagon (Glucagen) 1 mg Q15M PRN IM DECREASED GLUCOSE; Start 03/28/17 at 17:30 Glucose (Glutose) 15 gm Q15M PRN BUCCAL DECREASED GLUCOSE; Start 03/28/17 at 17 :30 Miscellaneous Information (Pending [facility] Order For Wound Care) This patient salazar... PRN PRN XX WOUND CARE; Start 03/28/17 at 20:00 Ondansetron HCl (Zofran Inj) 4 mg Q4H PRN IV NAUSEA AND/OR VOMITING; Start 04/01 at 20:30 Atorvastatin Calcium (Lipitor) 40 mg HS PO Last administered on 04/09/17 20:56 ; Admin Dose 40 MG; Start 04/04/17 at 21:00 Epoetin Wei (Epogen (Esrd)) 6,000 units MoWeFr@17 SC Last administered on 17:02; Admin Dose 6,000 UNITS; Start 04/06/17 at 17:00 Morphine Sulfate (Ms Contin (Er)) 15 mg BID PO Last administered on 04/10/17 12:12; Admin Dose 15 MG; Start 04/10/17 at 11:30 CHRISTINE ALEXANDRE MD Apr 10, 2017 16:40
--- NOTE | 2017-04-10 17:44 | CONS ---
Date/Time of Note Date/Time of Note DATE: 04/10/17 TIME: 17:42 Assessment/Plan Assessment/Plan Additional Assessment/Plan 1. ESRD on HD 2. Catheter malfunction s/p replacement 3. Hypertension 4. Diabetes melitus 5. hyperkalemia due to inadequate/missed HD due to non functioning HD catheter 6. Gangrene of the foot s/p AORTOILIAC WITH RLE ANGIOGRAM, FEM-POP ATHERECTOMY, FEM-POP ANGIOPLASTY, RECEPTION INTERVIEWER BALLOON ANGIOPLASTY, TPT ANGIOPLASTY s/p revascularizaiton surgery and now s/p Amputation of RLE digits 7. LE sweling rule out DVT Plan : HD ordered for tomorrow - will conintue HD EVE heard being in hospital. IV abx as per ID, wound care as per podiatry will follow up Consultation Date/Type/Reason Admit Date/Time Mar 30, 2017 at 16:05 Initial Consult Date 03/28/17 Type of Consultation: NEPHROLOGY Referring Provider: SHANNAN DELUCA 24 HR Interval Summary Free Text/Dictation doing ok, now s/p Surgery and amputation of digits gangrene RLE, Plan for HD tomorrow Exam/Review of Systems Vital Signs Vitals Vital Signs Date Time Temp Pulse Resp B/P Pulse Ox O2 Delivery O2 Flow Rate FiO2 04/10/17 14:35 98.8 73 18 169/70 93 04/09/17 10:19 Room Air Intake and Output 04/09/17 04/09/17 04/10/17 15:00 23:00 07:00 Intake Total 250 ml 300 ml 240 ml Output Total 10 ml 2 ml 0 ml Balance 240 ml 298 ml 240 ml Exam Constitutional: alert, oriented, well developed Respiratory: clear to auscultation, normal air movement Cardiovascular: nl pulses, regular rate and rhythm Gastrointestinal: non-tender, soft Musculoskeletal: other (right foot ulcer) Extremities: other (diminshed pulses right foot) Skin: other (right foot diabetic ulcer) Results Result Diagram: 04/10/17 0501 04/09/17 0506 Results 24 hrs Laboratory Tests Test 04/09/17 20:46 04/10/17 05:01 04/10/17 08:05 04/10/17 12:10 Bedside Glucose 135 90 141 White Blood Count 13.2 #H Red Blood Count 2.23 L Hemoglobin 7.2 L Hematocrit 23.9 L Mean Corpuscular Volume 107.2 H Mean Corpuscular Hemoglobin 32.3 Mean Corpuscular Hemoglobin Concent 30.1 L Red Cell Distribution Width 15.9 H Platelet Count 335 Mean Platelet Volume 11.0 H Neutrophils % 62.7 Lymphocytes % 19.8 Monocytes % 14.0 H Eosinophils % 2.7 Basophils % 0.3 Nucleated Red Blood Cells % 0.0 Neutrophils # (Manual) 8.2 H Lymphocytes # 2.6 Monocytes # 1.8 H Eosinophils # 0.4 Basophils # 0.0 Nucleated Red Blood Cells # 0.0 Test 04/10/17 17:39 Bedside Glucose 102 Medications Medications Current Medications Ondansetron HCl (Zofran Inj) 4 mg Q6H PRN IV NAUSEA AND/OR VOMITING; Start at 17:00 Acetaminophen (Tylenol Tab) 650 mg Q6H PRN PO PAIN LEVEL 1-3 OR FEVER; Start at 17:00 Acetaminophen/ Hydrocodone Bitart ([place] (5/325)) 1 tab Q6H PRN PO MODERATE PAIN LEVEL 4-6 Last administered on 04/10/17 15:08; Admin Dose 1 TAB; Start at 17:00 Docusate Sodium (Colace) 100 mg Q12H PRN PO CONSTIPATION Last administered on 06:35; Admin Dose 100 MG; Start 03/28/17 at 17:00 Zolpidem Tartrate (Ambien) 5 mg QHS PRN PO SLEEP; Start 03/28/17 at 17:00 Benazepril HCl (Lotensin) 20 mg BID PO Last administered on 04/10/17 08:04; Admin Dose 20 MG; Start 03/28/17 at 21:00 Metoprolol Tartrate (Lopressor) 25 mg BID PO Last administered on 04/10/17 08: 03; Admin Dose 25 MG; Start 03/28/17 at 21:00 Multivit/Ca Carb/ B Cmplx/FA/Prenat ([place]) 1 tab DAILY PO Last administered on 04/10/17 08:03; Admin Dose 1 TAB; Start 03/29/17 at 09:00 Pantoprazole (Protonix Tab) 40 mg DAILY@06 PO Last administered on 04/10/17 06 :19; Admin Dose 40 MG; Start 03/29/17 at 06:00 Diagnostic Test (Pha) (Accu-Chek) 1 ea 02 XX ; Start 03/29/17 at 02:00 Miscellaneous Information 1 ea NOTE XX ; Start 03/28/17 at 17:30 Glucose (Glutose) 15 gm Q15M PRN PO DECREASED GLUCOSE; Start 03/28/17 at 17:30 Glucose (Glutose) 22.5 gm Q15M PRN PO DECREASED GLUCOSE; Start 03/28/17 at 17: 30 Dextrose (D50w Syringe) 25 ml Q15M PRN IV DECREASED GLUCOSE; Start 03/28/17 at 17:30 Dextrose (D50w Syringe) 50 ml Q15M PRN IV DECREASED GLUCOSE; Start 03/28/17 at 17:30 Glucagon (Glucagen) 1 mg Q15M PRN IM DECREASED GLUCOSE; Start 03/28/17 at 17:30 Glucose (Glutose) 15 gm Q15M PRN BUCCAL DECREASED GLUCOSE; Start 03/28/17 at 17 :30 Miscellaneous Information ([facility]) This patient salazar... PRN PRN XX WOUND CARE; Start 03/28/17 at 20:00 Ondansetron HCl (Zofran Inj) 4 mg Q4H PRN IV NAUSEA AND/OR VOMITING; Start 04/01 at 20:30 Atorvastatin Calcium (Lipitor) 40 mg HS PO Last administered on 04/09/17 20:56 ; Admin Dose 40 MG; Start 04/04/17 at 21:00 Epoetin Wei (Epogen (Esrd)) 6,000 units MoWeFr@17 SC Last administered on 17:02; Admin Dose 6,000 UNITS; Start 04/06/17 at 17:00 Morphine Sulfate (Ms Contin (Er)) 15 mg BID PO Last administered on 04/10/17 12:12; Admin Dose 15 MG; Start 04/10/17 at 11:30 LISA MERRITT MD Apr 10, 2017 17:44
[2017-04-10 20:23] VITALS: BP 158/67; RESP 19
[2017-04-10] MEDS: ATORVASTATIN 40 MG TAB PO SCH (20:59)
[2017-04-11] VITALS (12 sets, daily range): BP systolic 124–158; BP diastolic 42–68; PULSE 55–63; RESP 16–19
[2017-04-11] MEDS: ACCU-CHEK XX SCH (02:00)
[2017-04-11] MEDS: HYDROCODONE/APAP (5/325) TAB PO PRN ×4 (04:05→22:39)
[2017-04-11 06:09] LABS: ABNORMAL IP MESSAGE 1; BASOPHILS % 0.3 % (0.0-2.0); EOSINOPHILS # 0.4 10^3/ul (0.0-0.5); EOSINOPHILS % 2.8 % (0.0-7.0); LYMPHOCYTES # 2.6 10^3/ul (0.8-2.9); LYMPHOCYTES % 19.3 % (15.0-51.0); MEAN CORPUSCULAR HEMOGLOBIN 33.2 pg (29.0-33.0); MEAN CORPUSCULAR HGB CONC 30.4 g/dl (32.0-37.0); MEAN PLATELET VOLUME 10.9 fl (7.4-10.4); MONOCYTE # 1.6 10^3/ul (0.3-0.9); MONOCYTES % 11.6 % (0.0-11.0); NEUTROPHILS % 65.5 % (39.0-77.0); PLATELET COUNT 342 10^3/UL (140-415); POSITIVE DIFF @See below; RED BLOOD COUNT 2.11 10^6/ul (4.70-6.10); RED CELL DISTRIBUTION WIDTH 15.8 % (11.5-14.5); WHITE BLOOD COUNT 13.6 10^3/ul (4.8-10.8)
[2017-04-11 06:49] LABS: CALCIUM 8.8 mg/dl (8.4-10.2); CREATININE 11.55 mg/dl (0.61-1.24); POTASSIUM 5.4 mmol/L (3.5-5.1)
[2017-04-11] MEDS: PANTOPRAZOLE (EC) 40 MG TAB PO SCH (06:53)
[2017-04-11] MEDS: INSULIN ASPART [NOVOLOG] 3 ML PEN SC SCH ×4 (07:57→20:51)
[2017-04-11] MEDS: SEVELAMER 800 MG TAB PO SCH ×4 (07:58→20:46)
[2017-04-11] MEDS: BENAZEPRIL 20 MG TAB PO SCH ×3 (08:01→20:48)
[2017-04-11] MEDS: METOPROLOL 25 MG TAB PO SCH ×3 (08:01→20:48)
[2017-04-11] MEDS: morphine (ER) 15 MG TAB PO SCH ×2 (08:58→20:47)
[2017-04-11] MEDS: MULTIVIT/CA CARB/B CMPLX/FA TAB PO SCH (08:58)
--- NOTE | 2017-04-11 13:50 | PN ---
Date/Time of Note Date/Time of Note DATE: 04/11/17 TIME: 13:32 Assessment/Plan VTE Prophylaxis VTE Prophylaxis Intervention: SCD's Lines/Catheters IV [facility] Type (from [facility] Saline Lock Urinary Cath still in place: No Assessment/Plan Assessment/Plan 66 yo male with DM, HTN, ESRD on HD, PAD leading to gangrene of toes, was admitted for catheter malfunction. He had s/p AKA of LLE in the past, then revascularization surgery, s/p resection of gangrenous digits 04/09/2017 1. Catheter malfunction s/p replacement 2. ESRD on HD per nephrology 3. Hypertension, stable 4. Diabetes mellitus, stable 5. hyperkalemia due to inadequate/missed HD due to non functioning HD catheter , HD per nephrology 6. 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 LE sweling rule out DVT 8. Macrocytic anemia, follow up with CBC Subjective 24 Hr Interval Summary Free Text/Dictation afebrile, no distress Exam/Review of Systems Vital Signs Vitals Vital Signs Date Time Temp Pulse Resp B/P Pulse Ox O2 Delivery O2 Flow Rate FiO2 04/11/17 08:09 98.7 19 141/58 95 04/11/17 02:18 63 04/09/17 10:19 Room Air Intake and Output 04/10/17 04/10/17 04/11/17 15:00 23:00 07:00 Intake Total 470 ml 500 ml Output Total 100 ml 0 ml Balance 370 ml 500 ml Results Result Diagram: 04/11/17 0525 04/11/17 0525 Results 24 hrs Laboratory Tests Test 04/10/17 17:39 04/10/17 21:03 04/11/17 05:25 04/11/17 07:57 Bedside Glucose 102 107 77 White Blood Count 13.6 H Red Blood Count 2.11 L Hemoglobin 7.0 L Hematocrit 23.0 L Mean Corpuscular Volume 109.0 H Mean Corpuscular Hemoglobin 33.2 H Mean Corpuscular Hemoglobin Concent 30.4 L Red Cell Distribution Width 15.8 H Platelet Count 342 Mean Platelet Volume 10.9 H Neutrophils % 65.5 Lymphocytes % 19.3 Monocytes % 11.6 H Eosinophils % 2.8 Basophils % 0.3 Nucleated Red Blood Cells % 0.0 Neutrophils # (Manual) 8.9 H Lymphocytes # 2.6 Monocytes # 1.6 H Eosinophils # 0.4 Basophils # 0.0 Nucleated Red Blood Cells # 0.0 Sodium Level 133 L Potassium Level 5.4 H Chloride Level 98 Carbon Dioxide Level 25 Anion Gap 15 Blood Urea Nitrogen 70 H Creatinine 11.55 H Glucose Level 80 Calcium Level 8.8 Test 04/11/17 11:48 Bedside Glucose 125 Medications Medications Current Medications Ondansetron HCl (Zofran Inj) 4 mg Q6H PRN IV NAUSEA AND/OR VOMITING; Start at 17:00 Acetaminophen (Tylenol Tab) 650 mg Q6H PRN PO PAIN LEVEL 1-3 OR FEVER; Start at 17:00 Acetaminophen/ Hydrocodone Bitart ([place] (5/325)) 1 tab Q6H PRN PO MODERATE PAIN LEVEL 4-6 Last administered on 04/11/17 10:02; Admin Dose 1 TAB; Start at 17:00 Docusate Sodium (Colace) 100 mg Q12H PRN PO CONSTIPATION Last administered on 06:35; Admin Dose 100 MG; Start 03/28/17 at 17:00 Zolpidem Tartrate (Ambien) 5 mg QHS PRN PO SLEEP; Start 03/28/17 at 17:00 Benazepril HCl (Lotensin) 20 mg BID PO Last administered on 04/11/17 12:06; Admin Dose 20 MG; Start 03/28/17 at 21:00 Metoprolol Tartrate (Lopressor) 25 mg BID PO Last administered on 04/11/17 12: 06; Admin Dose 25 MG; Start 03/28/17 at 21:00 Multivit/Ca Carb/ B Cmplx/FA/Prenat ([place]) 1 tab DAILY PO Last administered on 04/11/17 08:58; Admin Dose 1 TAB; Start 03/29/17 at 09:00 Pantoprazole (Protonix Tab) 40 mg DAILY@06 PO Last administered on 04/11/17 06 :53; Admin Dose 40 MG; Start 03/29/17 at 06:00 Diagnostic Test (Pha) (Accu-Chek) 1 ea 02 XX ; Start 03/29/17 at 02:00 Miscellaneous Information 1 ea NOTE XX ; Start 03/28/17 at 17:30 Glucose (Glutose) 15 gm Q15M PRN PO DECREASED GLUCOSE; Start 03/28/17 at 17:30 Glucose (Glutose) 22.5 gm Q15M PRN PO DECREASED GLUCOSE; Start 03/28/17 at 17: 30 Dextrose (D50w Syringe) 25 ml Q15M PRN IV DECREASED GLUCOSE; Start 03/28/17 at 17:30 Dextrose (D50w Syringe) 50 ml Q15M PRN IV DECREASED GLUCOSE; Start 03/28/17 at 17:30 Glucagon (Glucagen) 1 mg Q15M PRN IM DECREASED GLUCOSE; Start 03/28/17 at 17:30 Glucose (Glutose) 15 gm Q15M PRN BUCCAL DECREASED GLUCOSE; Start 03/28/17 at 17 :30 Miscellaneous Information (Pending [facility] Order For Wound Care) This patient salazar... PRN PRN XX WOUND CARE; Start 03/28/17 at 20:00 Ondansetron HCl (Zofran Inj) 4 mg Q4H PRN IV NAUSEA AND/OR VOMITING; Start 04/01 at 20:30 Atorvastatin Calcium (Lipitor) 40 mg HS PO Last administered on 04/10/17 20:59 ; Admin Dose 40 MG; Start 04/04/17 at 21:00 Epoetin Wei (Epogen (Esrd)) 6,000 units MoWeFr@17 SC Last administered on 17:02; Admin Dose 6,000 UNITS; Start 04/06/17 at 17:00 Morphine Sulfate (Ms Contin (Er)) 15 mg BID PO Last administered on 04/11/17 08:58; Admin Dose 15 MG; Start 04/10/17 at 11:30 LENO BRADY MD Apr 11, 2017 13:42
--- NOTE | 2017-04-11 14:00 | DS ---
Date/Time of Note Date/Time of Note DATE: 04/11/17 TIME: 13:50 Discharge Summary Admission/Discharge Info Admit Date/Time Mar 30, 2017 at 16:05 Discharge Date/Time Discharge Diagnosis 1. Catheter malfunction s/p replacement 2. ESRD on HD 3. s/p Amputation of right second digits, wound carfe and podiatry 3. Hypertension, stable 4. Diabetes mellitus, stable 5. hyperkalemia, HD done today 6. Gangrene of the foot s/p AORTOILIAC WITH RLE ANGIOGRAM, FEM-POP ATHERECTOMY, FEM-POP ANGIOPLASTY, MUSHROOM CUTTER BALLOON ANGIOPLASTY, TPT ANGIOPLASTY, s/p right AKA Patient Condition: Stable Hx of Present Illness Pt is a 66-year-old male with a history of hypertension, type 2 diabetes, diabetic foot ulcer, end-stage renal disease on dialysis who was sent from dialysis center for catheter malfunction. He had recent fistula placement as well as catheter exchange approximately 1 week ago. Continues to have issues with his dialysis catheter. Patient has no acute complaints at this time Hospital Course Patient got HD catheter replacement. He had HD today. Patient has peripheral vascular disease. Patient has history of s/p AORTOILIAC WITH RLE ANGIOGRAM, FEM-POP ATHERECTOMY, FEM-POP ANGIOPLASTY, MUSHROOM CUTTER BALLOON ANGIOPLASTY, TPT ANGIOPLASTY and right AKA. He has right foot ulcer that she got amputation of the right hallux and amputation of the right second toe on 04/09 without complication. 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 Home Meds Active Scripts Benazepril Hcl* (Benazepril Hcl*) 20 Mg Tablet, 20 MG PO BID, #60 TAB 3 Refills Prov:ELIJAH DEUTSCH 11/21/16 Metoprolol Tartrate* (Lopressor*) 25 Mg Tab, 25 MG PO BID, #60 TAB Prov:OZZIE HERRERA MD 11/10/16 Reported Medications Bicarbonate Dialysis Soln No.2 (Prismasol) Unknown Strength Solution, 5000 ML HE TID 03/18/17 Multivit/Ca Carb/B Cmplx/Fa* ([place]-Cherelle*) 1 Tab Tab, 1 TAB PO DAILY, TAB 03/18/17 Sevelamer Hcl* (Renagel*) 800 Mg Tablet, 1600 MG PO WITH MEALS, TAB 02/17/17 Aspirin (Low Dose Aspirin) 81 Mg Tablet.dr, 81 MG PO DAILY, #30 TAB 02/17/17 Omeprazole* (Omeprazole*) 40 Mg Capsule.dr, 40 MG PO DAILY, #30 CAP 02/17/17 Oxycodone HCl/Acetaminophen (Percocet 5-325 mg Tablet) 1 Each Tablet, 1 EACH PO Q6 Y for PAIN, TAB 12/22/16 Follow-up Plan PCP in one week Podiatry in one week home health for wound care nephrology for HD Primary Care Provider Care Physician No Primary Pending Labs Laboratory Tests Test 04/10/17 17:39 04/10/17 21:03 04/11/17 05:25 04/11/17 07:57 Bedside Glucose 102mg/dL (70-220) 107mg/dL (70-220) 77mg/dL (70-220) White Blood Count 13.610^3/ul (4.8-10.8) Red Blood Count 2.1110^6/ul (4.70-6.10) Hemoglobin 7.0g/dl (14.0-18.0) Hematocrit 23.0% (42.0-52.0) Mean Corpuscular Volume 109.0fl (82.0-101.0) Mean Corpuscular Hemoglobin 33.2pg (29.0-33.0) Mean Corpuscular Hemoglobin Concent 30.4g/dl (32.0-37.0) Red Cell Distribution Width 15.8% (11.5-14.5) Platelet Count 68536^3/UL (140-415) Mean Platelet Volume 10.9fl (7.4-10.4) Neutrophils % 65.5% (39.0-77.0) Lymphocytes % 19.3% (15.0-51.0) Monocytes % 11.6% (0.0-11.0) Eosinophils % 2.8% (0.0-7.0) Basophils % 0.3% (0.0-2.0) Nucleated Red Blood Cells % 0.0/100WBC (0.0-0.0) Neutrophils # (Manual) 8.910^3/ul (1.7-7.5) Lymphocytes # 2.610^3/ul (0.8-2.9) Monocytes # 1.610^3/ul (0.3-0.9) Eosinophils # 0.410^3/ul (0.0-0.5) Basophils # 0.010^3/ul (0.0-0.1) Nucleated Red Blood Cells # 0.010^3/ul (0.0-0.0) Sodium Level 133mmol/L (135-144) Potassium Level 5.4mmol/L (3.5-5.1) Chloride Level 98mmol/L (97-110) Carbon Dioxide Level 25mmol/L (21-31) Anion Gap 15 (8-16) Blood Urea Nitrogen 70mg/dl (7-20) Creatinine 11.55mg/dl (0.61-1.24) Glucose Level 80mg/dl (70-220) Calcium Level 8.8mg/dl (8.4-10.2) Test 04/11/17 11:48 Bedside Glucose 125mg/dL (70-220) LENO BRADY MD Apr 11, 2017 14:00
--- NOTE | 2017-04-11 16:40 | CONS ---
Date/Time of Note Date/Time of Note DATE: 04/11/17 TIME: 16:39 Assessment/Plan Assessment/Plan Additional Assessment/Plan 1. ESRD on HD 2. Catheter malfunction s/p replacement 3. Hypertension 4. Diabetes melitus 5. hyperkalemia due to inadequate/missed HD due to non functioning HD catheter 6. Gangrene of the foot s/p AORTOILIAC WITH RLE ANGIOGRAM, FEM-POP ATHERECTOMY, FEM-POP ANGIOPLASTY, COAL CARRIER BALLOON ANGIOPLASTY, TPT ANGIOPLASTY s/p revascularizaiton surgery and now s/p Amputation of the right hallux and amputation of the right second toe 7. LE kirsty rule out DVT Plan : HD ordered for today - will conintue HD EVE heard being in hospital. IV abx as per ID, wound care as per podiatry will follow up Consultation Date/Type/Reason Admit Date/Time Mar 30, 2017 at 16:05 Initial Consult Date 03/28/17 Type of Consultation: NEPHROLOGY Referring Provider: SHANNAN DELUCA Exam/Review of Systems Vital Signs Vitals Vital Signs Date Time Temp Pulse Resp B/P Pulse Ox O2 Delivery O2 Flow Rate FiO2 04/11/17 14:30 98.2 63 17 141/55 96 Room Air Intake and Output 04/10/17 04/10/17 04/11/17 15:00 23:00 07:00 Intake Total 470 ml 500 ml Output Total 100 ml 0 ml Balance 370 ml 500 ml Exam Constitutional: alert, oriented, well developed Respiratory: clear to auscultation, normal air movement Cardiovascular: nl pulses, regular rate and rhythm Gastrointestinal: non-tender, soft Musculoskeletal: other (right foot ulcer) Extremities: other (diminshed pulses right foot) Skin: other (right foot diabetic ulcer) Results Result Diagram: 04/11/17 0525 04/11/17 0525 Results 24 hrs Laboratory Tests Test 04/10/17 17:39 04/10/17 21:03 04/11/17 05:25 04/11/17 07:57 Bedside Glucose 102 107 77 White Blood Count 13.6 H Red Blood Count 2.11 L Hemoglobin 7.0 L Hematocrit 23.0 L Mean Corpuscular Volume 109.0 H Mean Corpuscular Hemoglobin 33.2 H Mean Corpuscular Hemoglobin Concent 30.4 L Red Cell Distribution Width 15.8 H Platelet Count 342 Mean Platelet Volume 10.9 H Neutrophils % 65.5 Lymphocytes % 19.3 Monocytes % 11.6 H Eosinophils % 2.8 Basophils % 0.3 Nucleated Red Blood Cells % 0.0 Neutrophils # (Manual) 8.9 H Lymphocytes # 2.6 Monocytes # 1.6 H Eosinophils # 0.4 Basophils # 0.0 Nucleated Red Blood Cells # 0.0 Sodium Level 133 L Potassium Level 5.4 H Chloride Level 98 Carbon Dioxide Level 25 Anion Gap 15 Blood Urea Nitrogen 70 H Creatinine 11.55 H Glucose Level 80 Calcium Level 8.8 Test 04/11/17 11:48 Bedside Glucose 125 Medications Medications Current Medications Ondansetron HCl (Zofran Inj) 4 mg Q6H PRN IV NAUSEA AND/OR VOMITING; Start at 17:00 Acetaminophen (Tylenol Tab) 650 mg Q6H PRN PO PAIN LEVEL 1-3 OR FEVER; Start at 17:00 Acetaminophen/ Hydrocodone Bitart ([place] (5/325)) 1 tab Q6H PRN PO MODERATE PAIN LEVEL 4-6 Last administered on 04/11/17 10:02; Admin Dose 1 TAB; Start at 17:00 Docusate Sodium (Colace) 100 mg Q12H PRN PO CONSTIPATION Last administered on 06:35; Admin Dose 100 MG; Start 03/28/17 at 17:00 Zolpidem Tartrate (Ambien) 5 mg QHS PRN PO SLEEP; Start 03/28/17 at 17:00 Benazepril HCl (Lotensin) 20 mg BID PO Last administered on 04/11/17 12:06; Admin Dose 20 MG; Start 03/28/17 at 21:00 Metoprolol Tartrate (Lopressor) 25 mg BID PO Last administered on 04/11/17 12: 06; Admin Dose 25 MG; Start 03/28/17 at 21:00 Multivit/Ca Carb/ B Cmplx/FA/Prenat ([place]-Cherelle) 1 tab DAILY PO Last administered on 04/11/17 08:58; Admin Dose 1 TAB; Start 03/29/17 at 09:00 Pantoprazole (Protonix Tab) 40 mg DAILY@06 PO Last administered on 04/11/17 06 :53; Admin Dose 40 MG; Start 03/29/17 at 06:00 Diagnostic Test (Pha) (Accu-Chek) 1 ea 02 XX ; Start 03/29/17 at 02:00 Miscellaneous Information 1 ea NOTE XX ; Start 03/28/17 at 17:30 Glucose (Glutose) 15 gm Q15M PRN PO DECREASED GLUCOSE; Start 03/28/17 at 17:30 Glucose (Glutose) 22.5 gm Q15M PRN PO DECREASED GLUCOSE; Start 03/28/17 at 17: 30 Dextrose (D50w Syringe) 25 ml Q15M PRN IV DECREASED GLUCOSE; Start 03/28/17 at 17:30 Dextrose (D50w Syringe) 50 ml Q15M PRN IV DECREASED GLUCOSE; Start 03/28/17 at 17:30 Glucagon (Glucagen) 1 mg Q15M PRN IM DECREASED GLUCOSE; Start 03/28/17 at 17:30 Glucose (Glutose) 15 gm Q15M PRN BUCCAL DECREASED GLUCOSE; Start 03/28/17 at 17 :30 Miscellaneous Information (Pending [facility] Order For Wound Care) This patient salazar... PRN PRN XX WOUND CARE; Start 03/28/17 at 20:00 Ondansetron HCl (Zofran Inj) 4 mg Q4H PRN IV NAUSEA AND/OR VOMITING; Start 04/01 at 20:30 Atorvastatin Calcium (Lipitor) 40 mg HS PO Last administered on 04/10/17 20:59 ; Admin Dose 40 MG; Start 04/04/17 at 21:00 Epoetin Wei (Epogen (Esrd)) 6,000 units MoWeFr@17 SC Last administered on 17:02; Admin Dose 6,000 UNITS; Start 04/06/17 at 17:00 Morphine Sulfate (Ms Contin (Er)) 15 mg BID PO Last administered on 04/11/17 08:58; Admin Dose 15 MG; Start 04/10/17 at 11:30 LISA MERRITT MD Apr 11, 2017 16:40
[2017-04-11] MEDS: EPOETIN 3000 UNITS/1 ML INJ (ESRD) SC SCH (17:41)
[2017-04-11] MEDS: ATORVASTATIN 40 MG TAB PO SCH (20:47)
[2017-04-12] MEDS: ACCU-CHEK XX SCH (02:00)
[2017-04-12 03:05] VITALS: BP 140/61; RESP 16
[2017-04-12] MEDS: HYDROCODONE/APAP (5/325) TAB PO PRN ×3 (05:08→17:14)
[2017-04-12] MEDS: PANTOPRAZOLE (EC) 40 MG TAB PO SCH (05:08)
[2017-04-12 07:55] VITALS: BP 141/63; RESP 16
[2017-04-12] MEDS: INSULIN ASPART [NOVOLOG] 3 ML PEN SC SCH ×3 (08:00→17:08)
[2017-04-12] MEDS: BENAZEPRIL 20 MG TAB PO SCH (08:22)
[2017-04-12] MEDS: morphine (ER) 15 MG TAB PO SCH (08:22)
[2017-04-12] MEDS: MULTIVIT/CA CARB/B CMPLX/FA TAB PO SCH (08:23)
[2017-04-12] MEDS: METOPROLOL 25 MG TAB PO SCH (08:23)
--- NOTE | 2017-04-12 08:46 | CONS ---
Date/Time of Note Date/Time of Note DATE: 04/12/17 TIME: 08:43 Assessment/Plan Assessment/Plan Additional Assessment/Plan 1. ESRD on HD 2. Catheter malfunction s/p replacement 3. Hypertension 4. Diabetes melitus 5. hyperkalemia due to inadequate/missed HD due to non functioning HD catheter 6. 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 LE sweling rule out DVT Plan : HD ordered for tomorrow if pt stays here - will conintue HD MWF orquidea being in hospital. IV abx as per ID, wound care as per podiatry - plan is for dressing change by podiatry will follow up Consultation Date/Type/Reason Admit Date/Time Mar 30, 2017 at 16:05 Initial Consult Date 03/28/17 Type of Consultation: NEPHROLOGY Referring Provider: SHANNAN DELUCA 24 HR Interval Summary Free Text/Dictation s/p HD yesterday 3 L removed, BP stable, no acute events overnight Exam/Review of Systems Vital Signs Vitals Vital Signs Date Time Temp Pulse Resp B/P Pulse Ox O2 Delivery O2 Flow Rate FiO2 04/12/17 07:55 98.4 63 16 141/63 100 04/11/17 14:30 Room Air Intake and Output 04/11/17 04/11/17 04/12/17 15:00 23:00 07:00 Intake Total 300 ml 1100 ml 440 ml Output Total 3300 ml 0 ml 100 ml Balance -3000 ml 1100 ml 340 ml Exam Constitutional: alert, oriented, well developed Respiratory: clear to auscultation, normal air movement Cardiovascular: nl pulses, regular rate and rhythm Gastrointestinal: non-tender, soft Musculoskeletal: no clubbing, no cyanosis Extremities: right foot dressing present Results Result Diagram: 04/11/17 0525 04/11/17 0525 Results 24 hrs Laboratory Tests Test 04/11/17 11:48 04/11/17 17:39 04/11/17 20:51 04/12/17 08:05 Bedside Glucose 125 137 130 76 Medications Medications Current Medications Ondansetron HCl (Zofran Inj) 4 mg Q6H PRN IV NAUSEA AND/OR VOMITING; Start at 17:00 Acetaminophen (Tylenol Tab) 650 mg Q6H PRN PO PAIN LEVEL 1-3 OR FEVER; Start at 17:00 Acetaminophen/ Hydrocodone Bitart ([place] (5/325)) 1 tab Q6H PRN PO MODERATE PAIN LEVEL 4-6 Last administered on 04/12/17 05:08; Admin Dose 1 TAB; Start at 17:00 Docusate Sodium (Colace) 100 mg Q12H PRN PO CONSTIPATION Last administered on 06:35; Admin Dose 100 MG; Start 03/28/17 at 17:00 Zolpidem Tartrate (Ambien) 5 mg QHS PRN PO SLEEP; Start 03/28/17 at 17:00 Benazepril HCl (Lotensin) 20 mg BID PO Last administered on 04/12/17 08:22; Admin Dose 20 MG; Start 03/28/17 at 21:00 Metoprolol Tartrate (Lopressor) 25 mg BID PO Last administered on 04/12/17 08: 23; Admin Dose 25 MG; Start 03/28/17 at 21:00 Multivit/Ca Carb/ B Cmplx/FA/Prenat ([place]-Cherelle) 1 tab DAILY PO Last administered on 04/12/17 08:23; Admin Dose 1 TAB; Start 03/29/17 at 09:00 Pantoprazole (Protonix Tab) 40 mg DAILY@06 PO Last administered on 04/12/17 05 :08; Admin Dose 40 MG; Start 03/29/17 at 06:00 Diagnostic Test (Pha) (Accu-Chek) 1 ea 02 XX ; Start 03/29/17 at 02:00 Miscellaneous Information 1 ea NOTE XX ; Start 03/28/17 at 17:30 Glucose (Glutose) 15 gm Q15M PRN PO DECREASED GLUCOSE; Start 03/28/17 at 17:30 Glucose (Glutose) 22.5 gm Q15M PRN PO DECREASED GLUCOSE; Start 03/28/17 at 17: 30 Dextrose (D50w Syringe) 25 ml Q15M PRN IV DECREASED GLUCOSE; Start 03/28/17 at 17:30 Dextrose (D50w Syringe) 50 ml Q15M PRN IV DECREASED GLUCOSE; Start 03/28/17 at 17:30 Glucagon (Glucagen) 1 mg Q15M PRN IM DECREASED GLUCOSE; Start 03/28/17 at 17:30 Glucose (Glutose) 15 gm Q15M PRN BUCCAL DECREASED GLUCOSE; Start 03/28/17 at 17 :30 Miscellaneous Information (Pending [facility] Order For Wound Care) This patient salazar... PRN PRN XX WOUND CARE; Start 03/28/17 at 20:00 Ondansetron HCl (Zofran Inj) 4 mg Q4H PRN IV NAUSEA AND/OR VOMITING; Start 04/01 at 20:30 Atorvastatin Calcium (Lipitor) 40 mg HS PO Last administered on 04/11/17 20:47 ; Admin Dose 40 MG; Start 04/04/17 at 21:00 Epoetin Wei (Epogen (Esrd)) 6,000 units MoWeFr@17 SC Last administered on 04/11 17:41; Admin Dose 6,000 UNITS; Start 04/06/17 at 17:00 Morphine Sulfate (Ms Contin (Er)) 15 mg BID PO Last administered on 04/12/17 08:22; Admin Dose 15 MG; Start 04/10/17 at 11:30 LISA MERRITT MD Apr 12, 2017 08:46
--- NOTE | 2017-04-12 09:12 | PN ---
Date/Time of Note Date/Time of Note DATE: 04/12/17 TIME: 09:05 Assessment/Plan Lines/Catheters IV Catheter Type (from Nrs): Saline Lock Correa in Place (from Nrs): No Assessment/Plan Chief Complaint/Hosp Course -Bilateral lower extremity atherosclerosis with gangrene: S/P Angio, Atherectomy of the fem-pop, balloon angioplasty of the fem-pop, tibials. -Patient has severe pedal disease however we were able to restore in-line flow from the LADIES' LOCKER ROOM ATTENDANT to the foot, -S/P 1st and 2nd toe amputation - Patients pain has resolved, Will follow with our podiatry colleagues -Clear from VS standpoint -End-stage renal disease: S/P LUE brachiocephalic fistula. tolerating dialysis sessions via his new right groin catheter. Recommend running low flow sessions of 200's -Discussed vascular optimization (blood pressure meds, diet, nutrition, exercise , sugar control, antiplatelets). -Discussed findings, plan and management with the patient and the daughter at the bedside with a certified vp strategic planning and they understand. -Thank you for allowing us to partake in the care of your patient. Please call with any questions. Problems: Subjective 24 Hr Interval Summary no new vascular events, pain has improved in the leg Exam/Review of Systems Vital Signs Vitals Vital Signs Date Time Temp Pulse Resp B/P Pulse Ox O2 Delivery O2 Flow Rate FiO2 04/12/17 07:55 98.4 63 16 141/63 100 04/11/17 14:30 Room Air Intake and Output 04/11/17 04/11/17 04/12/17 15:00 23:00 07:00 Intake Total 300 ml 1100 ml 440 ml Output Total 3300 ml 0 ml 100 ml Balance -3000 ml 1100 ml 340 ml Exam Free Text/Dictation GENERAL APPEARANCE: Alert, oriented x3. LUNGS: Clear to auscultation bilaterally. CARDIOVASCULAR: S1, S2 present ABDOMEN: Soft, nontender, nondistended. Bowel sounds positive. EXTREMITIES: -Right Lower extremity: Palpable femoral pulse. Nonpalpable pedal pulse. Motor and sensory intact. Capillary refill 3-4 seconds. dressing on amp site clean and dry, right heel with eschar and gangrene, edema 1-2+ (likely reperfusion), HD Perm catheter intact -Left lower extremity: Palpable femoral pulse. groin soft, AKA stump well healed. Capillary refill about 3 seconds. Motor and sensory intact. Results Result Diagram: 04/11/17 0525 04/11/17 0525 CYNDI CARR MD Apr 12, 2017 09:12
[2017-04-12] MEDS: SEVELAMER 800 MG TAB PO SCH ×2 (11:01→17:14)
[2017-04-12 14:25] VITALS: BP 139/64; RESP 16
--- NOTE | 2017-04-12 15:12 | PN ---
Date/Time of Note Date/Time of Note DATE: 04/12/17 TIME: 15:10 Assessment/Plan VTE Prophylaxis VTE Prophylaxis Intervention: SCD's Lines/Catheters IV Catheter Type (from [facility] Saline Lock Urinary Cath still in place: No Assessment/Plan Chief Complaint/Hosp Course Patient got HD catheter replacement. He had HD today. Patient has peripheral vascular disease. Patient has history of s/p AORTOILIAC WITH RLE ANGIOGRAM, FEM-POP ATHERECTOMY, FEM-POP ANGIOPLASTY, ROUTE AIDE BALLOON ANGIOPLASTY, TPT ANGIOPLASTY and right AKA. He has right foot ulcer that she got amputation of the right hallux and amputation of the right second toe on 04/09 without complication. Patient will follow up with wound care and helpdesk administrator. Problems: Assessment/Plan 1. Catheter malfunction s/p replacement 2. ESRD on HD 3. s/p Amputation of right second digits, wound care and podiatry, awaiting for Dr. Tellez to check the wound prior to discharge 3. Hypertension, stable 4. Diabetes mellitus, stable 5. hyperkalemia, HD done today 6. Gangrene of the foot s/p AORTOILIAC WITH RLE ANGIOGRAM, FEM-POP ATHERECTOMY, FEM-POP ANGIOPLASTY, ROUTE AIDE BALLOON ANGIOPLASTY, TPT ANGIOPLASTY, s/p right AKA Subjective 24 Hr Interval Summary Free Text/Dictation afebrile Exam/Review of Systems Vital Signs Vitals Vital Signs Date Time Temp Pulse Resp B/P Pulse Ox O2 Delivery O2 Flow Rate FiO2 04/12/17 14:25 98.5 56 16 139/64 97 04/11/17 14:30 Room Air Intake and Output 04/11/17 04/11/17 04/12/17 15:00 23:00 07:00 Intake Total 300 ml 1100 ml 440 ml Output Total 3300 ml 0 ml 100 ml Balance -3000 ml 1100 ml 340 ml Exam Constitutional: alert, oriented, well developed Psych: nl mood/affect, no complaints Head: atraumatic, normocephalic Eyes: EOMI, nl conjunctiva, nl lids ENMT: nl external ears & nose, nl lips & teeth, nl nasal mucosa & septum Neck: non-tender, supple Respiratory: clear to auscultation, normal air movement, No congested cough, No crackles/rales, No diminished breath sounds, No intercostal retraction, No labored breathing, No other, No respirations, No tactile fremitus, No wheezing Cardiovascular: nl pulses, regular rate and rhythm, No S3, No S4, No bruits, No diastolic murmur, No edema, No gallop, No irregular rhythm, No jugular venous distention (JVD), No murmurs/extra sounds, No other, No rub, No systolic murmur Gastrointestinal: nl liver, spleen, non-tender, soft, No ascites, No bowel sounds, No distended, No firm, No hepatomegaly, No mass , No other, No rebound or guarding, No splenomegaly, No surgical scars, No tender Musculoskeletal: nl extremities to inspection Extremities: other (right foot wound) Neurological: PRECISION OPTICS TECHNICIAN II-XII intact, nl mental status, nl speech, nl strength Results Result Diagram: 04/11/1752404/11/17524 Results 24 hrs Laboratory Tests Test 04/11/17 17:39 04/11/17 20:51 04/12/17 08:05 04/12/17 11:56 Bedside Glucose 137 130 76 99 Medications Medications Current Medications Ondansetron HCl (Zofran Inj) 4 mg Q6H PRN IV NAUSEA AND/OR VOMITING; Start at 17:00 Acetaminophen (Tylenol Tab) 650 mg Q6H PRN PO PAIN LEVEL 1-3 OR FEVER; Start at 17:00 Acetaminophen/ Hydrocodone Bitart ([place] (5/325)) 1 tab Q6H PRN PO MODERATE PAIN LEVEL 4-6 Last administered on 04/12/17 11:01; Admin Dose 1 TAB; Start at 17:00 Docusate Sodium (Colace) 100 mg Q12H PRN PO CONSTIPATION Last administered on 06:35; Admin Dose 100 MG; Start 03/28/17 at 17:00 Zolpidem Tartrate (Ambien) 5 mg QHS PRN PO SLEEP; Start 03/28/17 at 17:00 Benazepril HCl (Lotensin) 20 mg BID PO Last administered on 04/12/17 08:22; Admin Dose 20 MG; Start 03/28/17 at 21:00 Metoprolol Tartrate (Lopressor) 25 mg BID PO Last administered on 04/12/17 08: 23; Admin Dose 25 MG; Start 03/28/17 at 21:00 Multivit/Ca Carb/ B Cmplx/FA/Prenat ([place]-C[place]lle) 1 tab DAILY PO Last administered on 04/12/17 08:23; Admin Dose 1 TAB; Start 03/29/17 at 09:00 Pantoprazole (Protonix Tab) 40 mg DAILY@06 PO Last administered on 04/12/17 05 :08; Admin Dose 40 MG; Start 03/29/17 at 06:00 Diagnostic Test (Pha) (Accu-Chek) 1 ea 02 XX ; Start 03/29/17 at 02:00 Miscellaneous Information 1 ea NOTE XX ; Start 03/28/17 at 17:30 Glucose (Glutose) 15 gm Q15M PRN PO DECREASED GLUCOSE; Start 03/28/17 at 17:30 Glucose (Glutose) 22.5 gm Q15M PRN PO DECREASED GLUCOSE; Start 03/28/17 at 17: 30 Dextrose (D50w Syringe) 25 ml Q15M PRN IV DECREASED GLUCOSE; Start 03/28/17 at 17:30 Dextrose (D50w Syringe) 50 ml Q15M PRN IV DECREASED GLUCOSE; Start 03/28/17 at 17:30 Glucagon (Glucagen) 1 mg Q15M PRN IM DECREASED GLUCOSE; Start 03/28/17 at 17:30 Glucose (Glutose) 15 gm Q15M PRN BUCCAL DECREASED GLUCOSE; Start 03/28/17 at 17 :30 Miscellaneous Information (Pending [facility] Order For Wound Care) This patient salazar... PRN PRN XX WOUND CARE; Start 03/28/17 at 20:00 Ondansetron HCl (Zofran Inj) 4 mg Q4H PRN IV NAUSEA AND/OR VOMITING; Start 04/01 at 20:30 Atorvastatin Calcium (Lipitor) 40 mg HS PO Last administered on 04/11/17 20:47 ; Admin Dose 40 MG; Start 04/04/17 at 21:00 Epoetin Wei (Epogen (Esrd)) 6,000 units MoWeFr@17 SC Last administered on 04/11 17:41; Admin Dose 6,000 UNITS; Start 04/06/17 at 17:00 Morphine Sulfate (Ms Contin (Er)) 15 mg BID PO Last administered on 04/12/17 08:22; Admin Dose 15 MG; Start 04/10/17 at 11:30 LENO BRADY MD Apr 12, 2017 15:12
--- NOTE | 2017-04-13 14:46 | DS ---
Date/Time of Note Date/Time of Note DATE: 04/13/17 TIME: 14:43 Discharge Summary Admission/Discharge Info Admit Date/Time Mar 30, 2017 at 16:05 Discharge Date/Time Apr 12, 2017 at 18:05 Discharge Diagnosis 1. Catheter malfunction s/p replacement 2. ESRD on HD 3. s/p Amputation of right second digits, wound carfe and podiatry 3. Hypertension, stable 4. Diabetes mellitus, stable 5. hyperkalemia, HD done today 6. 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 He had recent fistula placement as well as catheter exchange approximately 1 week ago. Continues to have issues with his dialysis catheter. Patient has no acute complaints at this time Hospital Course Patient got HD catheter replacement. He had HD today. Patient has peripheral vascular disease. 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 He has right foot ulcer that she got amputation of the right hallux and amputation of the right second toe on 04/09 without complication. Patient will follow up with wound care and general manager food. Patient was discharged on 04/11/2017 but waited for general manager food to check the wound and change dressing that is done on 04/12/2017 and patient was discharged on 04/12/2017. Patient asked for pain medication that I prescribed tylenol #3 one q4h prn, 30 tablets. Home Meds Active Scripts Benazepril Hcl* (Benazepril Hcl*) 20 Mg Tablet, 20 MG PO BID, #60 TAB 3 Refills Prov:ELIJAH DEUTSCH 11/21/16 Metoprolol Tartrate* (Lopressor*) 25 Mg Tab, 25 MG PO BID, #60 TAB Prov:OZZIE HERRERA MD 11/10/16 Reported Medications Bicarbonate Dialysis Soln No.2 (Prismasol) Unknown Strength Solution, 5000 ML HE TID 8/18/17 Multivit/Ca Carb/B Cmplx/Fa* ([place]-Cherelle*) 1 Tab Tab, 1 TAB PO DAILY, TAB 03/18/17 Sevelamer Hcl* (Renagel*) 800 Mg Tablet, 1600 MG PO WITH MEALS, TAB 02/17/17 Aspirin (Low Dose Aspirin) 81 Mg Tablet.dr, 81 MG PO DAILY, #30 TAB 02/17/17 Omeprazole* (Omeprazole*) 40 Mg Capsule.dr, 40 MG PO DAILY, #30 CAP 02/17/17 Oxycodone HCl/Acetaminophen (Percocet 5-325 mg Tablet) 1 Each Tablet, 1 EACH PO Q6 Y for PAIN, TAB 12/22/16 Follow-up Plan PCP in one week Podiatry in one week home health for wound care nephrology for HD Primary Care Provider Care Physician No Primary Pending Labs Laboratory Tests Test 04/12/17 16:46 Bedside Glucose 76mg/dL (70-220) LENO BRADY MD Apr 13, 2017 14:46
== END 2017-04-12 18:05 | disposition home health service (06) | DRG 270 ==
LOC: E/R 10:48 → PP2 13:08 → OBSVTOIN 03-30 16:05
PROVIDERS: ADMIT Internal Medicine; ATTEND Internal Medicine
PROC: 5A1D60Z (ICD-10-PCS; 2017-03-29)
PROC: 0J2WXYZ Change Other Device in Lower Extremity Subcutaneous Tissue and Fascia, External Approach (ICD-10-PCS; 2017-03-31)
PROC: 047M3ZZ Dilation of Right Popliteal Artery, Percutaneous Approach (ICD-10-PCS; 2017-04-01)
PROC: 047T3ZZ Dilation of Right Peroneal Artery, Percutaneous Approach (ICD-10-PCS; 2017-04-01)
PROC: B41FYZZ Fluoroscopy of Right Lower Extremity Arteries using Other Contrast (ICD-10-PCS; 2017-04-01)
PROC: 04CM3ZZ Extirpation of Matter from Right Popliteal Artery, Percutaneous Approach (ICD-10-PCS; principal; 2017-04-01 16:00)
PROC: 047K3ZZ Dilation of Right Femoral Artery, Percutaneous Approach (ICD-10-PCS; 2017-04-01 16:00)
PROC: 0Y6M0Z9 Detachment at Right Foot, Partial 1st Ray, Open Approach (ICD-10-PCS; 2017-04-09)
PROC: 0Y6R0Z1 Detachment at Right 2nd Toe, High, Open Approach (ICD-10-PCS; 2017-04-09)
DX: T82.41XA Breakdown (mechanical) of vascular dialysis catheter, initial encounter (principal); N18.6 End stage renal disease; I12.0 Hypertensive chronic kidney disease with stage 5 chronic kidney disease or end stage renal disease; I70.261 Atherosclerosis of native arteries of extremities with gangrene, right leg; E11.52 Type 2 diabetes mellitus with diabetic peripheral angiopathy with gangrene; E11.22 Type 2 diabetes mellitus with diabetic chronic kidney disease; M86.9 Osteomyelitis, unspecified; L02.611 Cutaneous abscess of right foot; L97.419 Non-pressure chronic ulcer of right heel and midfoot with unspecified severity; E11.621 Type 2 diabetes mellitus with foot ulcer; Z79.4 Long term (current) use of insulin; L97.519 Non-pressure chronic ulcer of other part of right foot with unspecified severity; D63.1 Anemia in chronic kidney disease; E87.5 Hyperkalemia; E11.42 Type 2 diabetes mellitus with diabetic polyneuropathy; Y71.8 Miscellaneous cardiovascular devices associated with adverse incidents, not elsewhere classified; Z87.891 Personal history of nicotine dependence; Z89.612 Acquired absence of left leg above knee; I70.202 Unspecified atherosclerosis of native arteries of extremities, left leg; T82.856A Stenosis of peripheral vascular stent, initial encounter; L89.510 Pressure ulcer of right ankle, unstageable; D53.9 Nutritional anemia, unspecified
CPT/HCPCS: 36415; 36558; 71010; 73630; 73718; 75630; 80048; 80053; 82962; 83735; 84100; 85025; 85049; 85610; 85670; 85730; 86803; 86850; 86900; 86901; 86920; 87081; 87340; 88307; 88311; 90935; 93005; 93922; 96374; C1714; C1725; C1750; C1760; C1894; G0378; J0131; J0886; J1170; J1644; J1815; J2250; J2270; J2405; J2543; J2765; J2997; J3010; J7040; J7042; Q9967

== ENCOUNTER 2017-04-13 15:14 | Inpatient (IN) | payer OTHER ==
[~2017-04-13] VITALS: Ht 167.6 cm; Wt 57.5 kg
[~2017-04-13 15:14] MED LIST changes: -ATOR10TA65 PO; -DOCU-216 PO; -FAMO20TA18 PO; -GLIP5TAB13 PO; -NIT4 SL
--- NOTE | 2017-04-13 17:02 | ERA ---
ER Documentation Chief Complaint Date/Time DATE: 04/13/17 TIME: 16:59 Chief Complaint RIGHT FEMORAL DIALYSIS CATH NOT WORKING, NO PAIN REPORTED HPI 66-year-old male history of diabetes, end-stage renal disease on dialysis who presents for femoral dialysis catheter malfunction. The patient's last dialysis was 2 days ago. He presents for malfunction of the right femoral dialysis catheter. They were unable to access the catheter. He was sent for further evaluation. He denies any fevers chills chest pain or shortness of breath. ROS All systems reviewed and are negative except as per history of present illness. Medications Home Meds Active Scripts Benazepril Hcl* (Benazepril Hcl*) 20 Mg Tablet, 20 MG PO BID, #60 TAB 3 Refills Prov:ELIJAH DEUTSCH 11/21/16 Metoprolol Tartrate* (Lopressor*) 25 Mg Tab, 25 MG PO BID, #60 TAB Prov:OZZIE HERRERA MD 11/10/16 Reported Medications Bicarbonate Dialysis Soln No.2 (Prismasol) Unknown Strength Solution, 5000 ML HE TID 03/18/17 Multivit/Ca Carb/B Cmplx/Fa* (Cheyenne-Cherelle*) 1 Tab Tab, 1 TAB PO DAILY, TAB 03/18/17 Sevelamer Hcl* (Renagel*) 800 Mg Tablet, 1600 MG PO WITH MEALS, TAB 02/17/17 Aspirin (Low Dose Aspirin) 81 Mg Tablet.dr, 81 MG PO DAILY, #30 TAB 02/17/17 Omeprazole* (Omeprazole*) 40 Mg Capsule.dr, 40 MG PO DAILY, #30 CAP 02/17/17 Oxycodone HCl/Acetaminophen (Percocet 5-325 mg Tablet) 1 Each Tablet, 1 EACH PO Q6 Y for PAIN, TAB 12/22/16 Allergies Allergies: Coded Allergies: vancomycin (Unverified Allergy, Intermediate, rash, 04/13/17) PMhx/Soc Anesthesia Reaction: No Hx Neurological Disorder: No Hx Respiratory Disorders: Yes (sob) Hx Psychiatric Problems: No Hx Miscellaneous Medical Probl: Yes (ESRD ON DIALYSIS) Hx Alcohol Use: No Hx Substance Use: No Hx Tobacco Use: No Smoking Status: Never smoker FmHx Family History: diabetes Physical Exam Vitals Vital Signs Date Time Temp Pulse Resp B/P Pulse Ox O2 Delivery O2 Flow Rate FiO2 04/13/17 19:40 97.9 56 20 167/61 99 Room Air 04/13/17 15:17 97.8 60 18 165/67 98 Physical Exam General: Well developed, well nourished, no acute distress Head: Normocephalic, atraumatic Eyes: Pupils equally reactive, EOM intact ENT: Moist mucous membranes Neck: Supple, no lymphadenopathy Respiratory: Lungs clear bilaterally, no distress Cardiovascular: RRR, no murmurs, rubs, or gallops Abdominal: Soft, non-tender, non-distended, no peritoneal signs : Deferred MSK: Left lower leg almost complete amputation, right lower extremity with dressing to the foot that is clean dry and intact Neurologic: Alert and oriented, Skin: No rash Psych: Normal mood Result Diagram: 04/13/17170604/13/171706 Results 24 hrs Laboratory Tests Test 04/13/17 17:07 White Blood Count 12.210^3/ul Red Blood Count 2.2610^6/ul Hemoglobin 7.5g/dl Hematocrit 24.2% Mean Corpuscular Volume 107.1fl Mean Corpuscular Hemoglobin 33.2pg Mean Corpuscular Hemoglobin Concent 31.0g/dl Red Cell Distribution Width 15.8% Platelet Count 99178^3/UL Mean Platelet Volume 10.6fl Neutrophils % 71.8% Lymphocytes % 16.0% Monocytes % 9.0% Eosinophils % 2.6% Basophils % 0.2% Nucleated Red Blood Cells % 0.0/100WBC Neutrophils # 8.810^3/ul Lymphocytes # 2.010^3/ul Monocytes # 1.110^3/ul Eosinophils # 0.310^3/ul Basophils # 0.010^3/ul Nucleated Red Blood Cells # 0.010^3/ul Prothrombin Time 21.9Sec Prothrombin Time Ratio 1.7 INR International Normalized Ratio 1.89 Activated Partial Thromboplast Time 55.7Sec Sodium Level 132mmol/L Potassium Level 4.3mmol/L Chloride Level 92mmol/L Carbon Dioxide Level 26mmol/L Anion Gap 18 Blood Urea Nitrogen 65mg/dl Creatinine 10.67mg/dl Glucose Level 85mg/dl Calcium Level 8.8mg/dl Current Medications Medications (Trade) Dose Ordered Sig/Familia Route PRN Reason Start Time Stop Time Status Last Admin Dose Admin Ondansetron HCl (Zofran Inj) 4 mg BRIDGE ORDER PRN IV NAUSEA AND/OR VOMITING 04/13/17 18:30 04/14/17 18:29 Acetaminophen (Tylenol Tab) 650 mg ER BRIDGE PRN PO MILD PAIN/FEVER 04/13/17 18:30 04/14/17 18:29 Alteplase, Recombinant (Cathflo (Activase)) 2 mg ONCE ONCE CATHETER 04/13/17 19:00 04/13/17 19:01 DC 04/13/17 19:18 Procedures/MDM EKG, MONITORS, & DIAGNOSTIC IMAGING: EKG: I reviewed and interpreted a 12-lead EKG. Rhythm: Normal sinus rhythm Ectopy: None Intervals: No abnormalities ST segments: No elevations or depressions T waves: No contiguous inversions Chest x-ray: I reviewed and interpreted a 1 view of the chest Mediastinum: No enlargement Cardiac silhouette: No cardiomegaly Airspace: Clear lung espinosa bilaterally without evidence of pneumothorax Bones: No evidence of fracture LAB INTERPRETATION: No hyperkalemia, chronic renal failure MEDICAL DECISION MAKING: The patient presents to the emergency room with a malfunctioning right femoral dialysis catheter. He has a immature left upper extremity forearm AV fistula that cannot be used. Patient has no evidence of volume overload. He will require screening for hyperkalemia. I will reach out to dialysis nurse for manipulation of the catheter and also reach out to interventional radiology for possible replacement of the femoral catheter. Interventional radiology is unable to perform the procedure today. The patient may require hospitalization for further management. ER COURSE: The patient has no hyperkalemia, no volume overload. A hemodialysis nurse was able to come to the patient's bedside and put Flow into the catheter but states that she cannot confirm flow at this time. The patient needs at least 4 hours and then dialysis. For this reason the patient will require hospitalization. Interventional radiology is not available currently. I kept the patient and/or family informed of laboratory and diagnostic imaging results throughout the emergency room course. DISPOSITION PLAN: [facility] CONSULTATION: Accepting care team and consultations: I discussed the current laboratory data, diagnostic imaging and emergency care provided. Admitting team: Dr. Cha admitting team indication: Insurance directed Consulting services: Nephrology team notified by admitting team Departure Diagnosis: Primary Impression: Complication of vascular access for dialysis Qualified Code: T82.9XXA - Complication of vascular access for dialysis, initial encounter Additional Impressions: End stage renal disease on dialysis Anemia Qualified Code: D63.8 - Anemia in other chronic diseases classified elsewhere Condition: HAI Archer MD Apr 13, 2017 17:01
[2017-04-13 17:24] LABS: BASOPHILS % 0.2 % (0.0-2.0); EOSINOPHILS # 0.3 10^3/ul (0.0-0.5); EOSINOPHILS % 2.6 % (0.0-7.0); HEMATOCRIT 24.2 % (42.0-52.0); HEMOGLOBIN 7.5 g/dl (14.0-18.0); MEAN CORPUSCULAR HEMOGLOBIN 33.2 pg (29.0-33.0); MEAN CORPUSCULAR VOLUME 107.1 fl (82.0-101.0); MEAN PLATELET VOLUME 10.6 fl (7.4-10.4); MONOCYTE # 1.1 10^3/ul (0.3-0.9); NEUTROPHIL # 8.8 10^3/ul (1.6-7.5); NEUTROPHILS % 71.8 % (39.0-77.0); PLATELET COUNT 422 10^3/UL (140-415); RED BLOOD COUNT 2.26 10^6/ul (4.70-6.10); RED CELL DISTRIBUTION WIDTH 15.8 % (11.5-14.5); WHITE BLOOD COUNT 12.2 10^3/ul (4.8-10.8)
[2017-04-13 17:42] LABS: INR 1.89; PROTIME 21.9 Sec (12.2-14.2); PT RATIO 1.7
[2017-04-13 17:44] LABS: PARTIAL THROMBOPLASTIN TIME 55.7 Sec (25.0-35.0)
[2017-04-13 17:50] LABS: CALCIUM 8.8 mg/dl (8.4-10.2); CREATININE 10.67 mg/dl (0.61-1.24); POTASSIUM 4.3 mmol/L (3.5-5.1)
--- NOTE | 2017-04-13 17:54 | RADRPT ---
PROCEDURE: XR Chest. CLINICAL INDICATION: Chest pain . TECHNIQUE: Single frontal chest x-ray. COMPARISON: 03/31/2017 FINDINGS: The lungs are clear of acute infiltrates, edema, effusions, or masses.. The cardiomediastinal silho uette is unremarkable. The osseous structures are intact. IMPRESSION: No acute cardiopulmonary disease. RPTAT: RR .Waldo Cano MD, Date Time Electronically viewed and signed by .Waldo Cano MD, on 04/13/2017 17:54 .L/
[2017-04-13] MEDS ORDERED: ONDANSETRON 4 MG INJ IV PRN ×2 (18:30→22:30)
[2017-04-13] MEDS ORDERED: ACETAMINOPHEN 325 MG TAB PO PRN (18:30)
[2017-04-13] MEDS ORDERED: ALTEPLASE (CATHFLO) 2 MG INJ CATHETER ONE (19:00)
[2017-04-13 19:40] VITALS: TEMP 97.9
[2017-04-13 20:11] VITALS: Ht 167.6 cm; Wt 57.5 kg
[2017-04-13 20:40] VITALS: BP 177/71; RESP 18
[2017-04-13] MEDS ORDERED: morphine 2 MG INJ IV PRN (22:30)
[2017-04-13] MEDS: METOPROLOL 25 MG TAB PO SCH (22:32)
[2017-04-13] MEDS: BENAZEPRIL 20 MG TAB PO SCH (22:32)
[2017-04-13] MEDS: OXYCODONE/ACETAMINOPHEN (5/325) TAB PO PRN (22:33)
[2017-04-14] VITALS (14 sets, daily range): BP systolic 140–162; BP diastolic 57–72; PULSE 53–62; RESP 18–20
[2017-04-14 05:45] LABS: BASOPHILS % 0.3 % (0.0-2.0); EOSINOPHILS # 0.4 10^3/ul (0.0-0.5); EOSINOPHILS % 4.4 % (0.0-7.0); HEMATOCRIT 23.2 % (42.0-52.0); LYMPHOCYTES # 1.6 10^3/ul (0.8-2.9); LYMPHOCYTES % 16.8 % (15.0-51.0); MEAN CORPUSCULAR HEMOGLOBIN 32.1 pg (29.0-33.0); MEAN CORPUSCULAR HGB CONC 30.2 g/dl (32.0-37.0); MEAN CORPUSCULAR VOLUME 106.4 fl (82.0-101.0); MEAN PLATELET VOLUME 10.7 fl (7.4-10.4); MONOCYTE # 1.1 10^3/ul (0.3-0.9); MONOCYTES % 11.9 % (0.0-11.0); NEUTROPHIL # 6.3 10^3/ul (1.6-7.5); NEUTROPHILS % 66.2 % (39.0-77.0); PLATELET COUNT 354 10^3/UL (140-415); RED BLOOD COUNT 2.18 10^6/ul (4.70-6.10); RED CELL DISTRIBUTION WIDTH 15.6 % (11.5-14.5); WHITE BLOOD COUNT 9.5 10^3/ul (4.8-10.8)
[2017-04-14 06:06] LABS: ALBUMIN 3.1 g/dl (3.3-4.9); ALBUMIN/GLOBULIN RATIO 0.88; CALCIUM 8.4 mg/dl (8.4-10.2); CREATININE 11.26 mg/dl (0.61-1.24); MAGNESIUM 2.2 mg/dl (1.7-2.5); PHOSPHORUS 5.9 mg/dl (2.5-4.9); TOTAL PROTEIN 6.6 g/dl (6.1-8.1)
[2017-04-14] MEDS: BENAZEPRIL 20 MG TAB PO SCH ×2 (08:11→20:39)
[2017-04-14] MEDS: METOPROLOL 25 MG TAB PO SCH ×2 (08:11→20:38)
[2017-04-14] MEDS: OXYCODONE/ACETAMINOPHEN (5/325) TAB PO PRN ×2 (08:12→16:17)
[2017-04-14] MEDS: SEVELAMER 800 MG TAB PO SCH ×3 (08:19→17:15)
[2017-04-14] MEDS ORDERED: ASPIRIN 81 MG TAB PO SCH (09:00)
[2017-04-14] MEDS ORDERED: HEPARIN 1000 UNITS/ML 10 ML INJ CATHETER SCH (11:00)
--- NOTE | 2017-04-14 14:29 | HP ---
Date/Time of Note Date/Time of Note DATE: 04/14/17 TIME: 14:24 Assessment/Plan VTE Prophylaxis VTE Prophylaxis Intervention: heparin Lines/Catheters IV Catheter Type (from [facility]): [facility] Assessment/Plan Chief Complaint/Hosp Course 1. End-stage renal disease with clotted dialysis catheter Patient has received TPA in the ER, HD nurse to assess if catheter is now functioning for dialysis Dialysis per renal 2. Anemia secondary to chronic disease and end-stage renal disease Transfuse 1 unit of packed red blood cells 3. Sore throat Symptomatic support 4. Diabetes Continue home meds 5. Hypertension Continue home meds 6. 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 Patient presents once again with dialysis catheter clotting, patient has no other acute complaints except for a sore throat. ROS Constitutional: improved, no complaints Eyes: no complaints ENT: sore throat Respiratory: no complaints Cardiovascular: no complaints Gastrointestinal: no complaints Genitourinary: no complaints Musculoskeletal: no complaints Skin: no complaints Neurologic: no complaints Endocrine: no complaints Lymphatic: no complaints Psychological: nl mood/affect, no complaints Immunologic: no complaints PMH/Family/Social Past Medical History As per HPI Past Surgical History Past Surgical Hx: other Social History Alcohol Use: rarely Smoking Status: Former smoker Drug Use: none Exam/Review of Systems Vital Signs Vitals Vital Signs Date Time Temp Pulse Resp B/P Pulse Ox O2 Delivery O2 Flow Rate FiO2 04/14/17 11:30 53 04/14/17 09:00 20 04/14/17 07:24 98.4 159/66 98 04/13/17 19:40 Room Air Intake and Output 04/13/17 04/13/17 04/14/17 15:00 23:00 07:00 Intake Total 240 ml Balance 240 ml Exam Constitutional: alert, oriented Head: normocephalic Respiratory: clear to auscultation Cardiovascular: regular rate and rhythm Gastrointestinal: soft, No distended Musculoskeletal: No nl extremities to inspection Labs Result Diagram: 04/14/17 0501 04/14/17 0501 Medications Medications Current Medications Aspirin (Aspirin) 81 mg DAILY PO Last administered on 04/14/17 08:10; Admin Dose 81 MG; Start 04/14/17 at 09:00 Benazepril HCl (Lotensin) 20 mg BID PO Last administered on 04/14/17 08:11; Admin Dose 20 MG; Start 04/13/17 at 22:00 Metoprolol Tartrate (Lopressor) 25 mg BID PO Last administered on 04/14/17 08: 11; Admin Dose 25 MG; Start 04/13/17 at 22:00 Oxycodone/ Acetaminophen (Percocet (5/ 325)) 1 tab Q6H PRN PO PAIN Last administered on 04/14/17 08:12; Admin Dose 1 TAB; Start 04/13/17 at 22:30 Ondansetron HCl (Zofran Inj) 4 mg Q6H PRN IV NAUSEA AND/OR VOMITING; Start at 22:30 Morphine Sulfate (morphine) 2 mg Q4H PRN IV PAIN; Start 04/13/17 at 22:30 SHANNAN DELUCA Apr 14, 2017 14:29
--- NOTE | 2017-04-14 14:31 | PDOCDIS ---
Discharge Instructions CONDITION Patient Condition: Good HOME CARE INSTRUCTIONS: Special Diet: Renal/diabetic ACTIVITY: Activity Restrictions: No Restrictions FOLLOW UP/APPOINTMENTS Follow-up Plan FOLLOW UP WITH YOUR PRIMARY CARE PHYSICIAN IN 1-2 WEEKS, follow-up with HD center as scheduled SHANNAN DELUCA Apr 14, 2017 14:31
[2017-04-14] MEDS ORDERED: hydrALAzine 20 MG INJ IV ONE ×2 (16:30→22:30)
--- NOTE | 2017-04-14 16:34 | DS ---
Date/Time of Note Date/Time of Note DATE: 04/14/17 TIME: 16:30 Discharge Summary Admission/Discharge Info Admit Date/Time Apr 13, 2017 at 18:21 Discharge Date/Time April 14, 2017 Discharge Diagnosis 1. End-stage renal disease with clotted dialysis catheter status post Cathflo with resolution of clot and now functioning dialysis catheter Status post dialysis in house 2. Anemia secondary to chronic disease and end-stage renal disease Status post 1 unit of packed red blood cells 3. Sore throat Symptomatic support 4. Diabetes Continue home meds 5. Hypertension Continue home meds 6. 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 Patient presents once again with dialysis catheter clotting, patient has no other acute complaints except for a sore throat. Patient received Cathflo and resolution of clotting in the dialysis catheter. Patient was able to receive dialysis in house with no further issues. Patient was noted to be more acutely anemic than his baseline and was transfused 1 unit of packed red blood cells. Patient was asymptomatic with no dizziness or lightheadedness. Patient was felt to be stable for DC and on the day of discharge patient vitals , labs and physical exam were stable, he had no further acute issues and his questions are answered. Home Meds Active Scripts Benazepril Hcl* (Benazepril Hcl*) 20 Mg Tablet, 20 MG PO BID, #60 TAB 3 Refills Prov:ELIJAH DEUTSCH 11/21/16 Metoprolol Tartrate* (Lopressor*) 25 Mg Tab, 25 MG PO BID, #60 TAB Prov:OZZIE HERRERA MD 11/10/16 Reported Medications Bicarbonate Dialysis Soln No.2 (Prismasol) Unknown Strength Solution, 5000 ML HE TID 03/18/17 Multivit/Ca Carb/B Cmplx/Fa* (Cheyenne-Cherelle*) 1 Tab Tab, 1 TAB PO DAILY, TAB 03/18/17 Sevelamer Hcl* (Renagel*) 800 Mg Tablet, 1600 MG PO WITH MEALS, TAB 02/17/17 Aspirin (Low Dose Aspirin) 81 Mg Tablet.dr, 81 MG PO DAILY, #30 TAB 02/17/17 Omeprazole* (Omeprazole*) 40 Mg Capsule.dr, 40 MG PO DAILY, #30 CAP 02/17/17 Oxycodone HCl/Acetaminophen (Percocet 5-325 mg Tablet) 1 Each Tablet, 1 EACH PO Q6 Y for PAIN, TAB 12/22/16 Follow-up Plan FOLLOW UP WITH YOUR PRIMARY CARE PHYSICIAN IN 1-2 WEEKS, follow-up with center as scheduled Primary Care Provider Care Physician No Primary Time spent on discharge: > 30 minutes SHANNAN DELUCA Apr 14, 2017 16:34
--- NOTE | 2017-04-14 16:38 | CONS ---
Date/Time of Note Date/Time of Note DATE: 04/14/17 TIME: 16:36 Assessment/Plan Assessment/Plan Additional Assessment/Plan 1. End-stage renal disease with clotted dialysis catheter status post Cathflo with resolution of clot and now functioning dialysis catheter Status post dialysis in house- tolerated well, possible d/c back to SNF today 2. Anemia secondary to chronic disease and end-stage renal disease Status post 1 unit of packed red blood cells 3. Sore throat Symptomatic support 4. Diabetes Continue home meds 5. Hypertension Continue home meds 6. History of gangrene of the right foot Consultation Date/Type/Reason Admit Date/Time Apr 13, 2017 at 18:21 Date of Consultation: Apr 14, 2017 Type of Consultation: NEPHROLOGY Reason for Consultation ESRD on HD Referring Provider: SHANNAN DELUCA of Present Illness 66 M with ESRD on HD, SYLVIA jay, admitted with Clotted HD cathter, s/p cathflow and renal has been consulted for it Eyes: no complaints ENT: sore throat Respiratory: no complaints Cardiovascular: no complaints Gastrointestinal: no complaints Genitourinary: no complaints Musculoskeletal: no complaints Skin: no complaints Neurologic: no complaints Lymphatic: no complaints Psychological: nl mood/affect, no complaints Immunologic: no complaints Past Surgical History Past Surgical Hx: other Social History Alcohol Use: rarely Smoking Status: Former smoker Drug Use: none Exam/Review of Systems Vital Signs Vitals Vital Signs Date Time Temp Pulse Resp B/P Pulse Ox O2 Delivery O2 Flow Rate FiO2 04/14/17 14:25 97.9 60 18 162/72 99 04/13/17 19:40 Room Air Intake and Output 04/13/17 04/13/17 04/14/17 15:00 23:00 07:00 Intake Total 240 ml Balance 240 ml Exam Constitutional: alert, oriented Head: normocephalic Respiratory: clear to auscultation Cardiovascular: regular rate and rhythm Gastrointestinal: soft, No distended Musculoskeletal: No nl extremities to inspection Results Result Diagram: 04/14/17 0501 04/14/17 0501 Results 24 hrs Laboratory Tests Test 04/13/17 17:07 04/14/17 05:01 White Blood Count 12.2 H 9.5 # Red Blood Count 2.26 L 2.18 L Hemoglobin 7.5 L 7.0 L Hematocrit 24.2 L 23.2 L Mean Corpuscular Volume 107.1 H 106.4 H Mean Corpuscular Hemoglobin 33.2 H 32.1 Mean Corpuscular Hemoglobin Concent 31.0 L 30.2 L Red Cell Distribution Width 15.8 H 15.6 H Platelet Count 422 #H 354 Mean Platelet Volume 10.6 H 10.7 H Neutrophils % 71.8 66.2 Lymphocytes % 16.0 16.8 Monocytes % 9.0 11.9 H Eosinophils % 2.6 4.4 Basophils % 0.2 0.3 Nucleated Red Blood Cells % 0.0 0.0 Neutrophils # 8.8 H 6.3 Lymphocytes # 2.0 1.6 Monocytes # 1.1 H 1.1 H Eosinophils # 0.3 0.4 Basophils # 0.0 0.0 Nucleated Red Blood Cells # 0.0 0.0 Prothrombin Time 21.9 H Prothrombin Time Ratio 1.7 INR International Normalized Ratio 1.89 Activated Partial Thromboplast Time 55.7 H Sodium Level 132 L 131 L Potassium Level 4.3 5.0 Chloride Level 92 L 96 L Carbon Dioxide Level 26 21 Anion Gap 18 H 19 H Blood Urea Nitrogen 65 H 69 H Creatinine 10.67 H 11.26 H Glucose Level 85 84 Calcium Level 8.8 8.4 Phosphorus Level 5.9 H Magnesium Level 2.2 Total Bilirubin 0.0 L Direct Bilirubin 0.00 Indirect Bilirubin 0.0 Aspartate Amino Transf (AST/SGOT) 19 Alanine Aminotransferase (ALT/SGPT) 28 Alkaline Phosphatase 146 H Total Protein 6.6 Albumin 3.1 L Globulin 3.50 H Albumin/Globulin Ratio 0.88 Medications Medications Current Medications Aspirin (Aspirin) 81 mg DAILY PO Last administered on 04/14/17 08:10; Admin Dose 81 MG; Start 04/14/17 at 09:00 Benazepril HCl (Lotensin) 20 mg BID PO Last administered on 04/14/17 08:11; Admin Dose 20 MG; Start 04/13/17 at 22:00 Metoprolol Tartrate (Lopressor) 25 mg BID PO Last administered on 04/14/17 08: 11; Admin Dose 25 MG; Start 04/13/17 at 22:00 Oxycodone/ Acetaminophen (Percocet (5/ 325)) 1 tab Q6H PRN PO PAIN Last administered on 04/14/17 16:17; Admin Dose 1 TAB; Start 04/13/17 at 22:30 Ondansetron HCl (Zofran Inj) 4 mg Q6H PRN IV NAUSEA AND/OR VOMITING; Start at 22:30 Morphine Sulfate (morphine) 2 mg Q4H PRN IV PAIN; Start 04/13/17 at 22:30 LISA MERRITT MD Apr 14, 2017 16:38
== END 2017-04-14 22:50 | disposition home or self-care (01) | DRG 314 ==
LOC: E/R 15:14 → MS2 18:21
PROVIDERS: ADMIT Internal Medicine; ATTEND Internal Medicine
PROC: 30233N1 Transfusion of Nonautologous Red Blood Cells into Peripheral Vein, Percutaneous Approach (ICD-10-PCS; principal; 2017-04-14)
PROC: 5A1D00Z (ICD-10-PCS; 2017-04-14)
DX: T82.898A Other specified complication of vascular prosthetic devices, implants and grafts, initial encounter (principal); N18.6 End stage renal disease; E11.22 Type 2 diabetes mellitus with diabetic chronic kidney disease; I12.0 Hypertensive chronic kidney disease with stage 5 chronic kidney disease or end stage renal disease; Y82.8 Other medical devices associated with adverse incidents; Y92.009 Unspecified place in unspecified non-institutional (private) residence as the place of occurrence of the external cause; D63.1 Anemia in chronic kidney disease; Z99.2 Dependence on renal dialysis; J02.9 Acute pharyngitis, unspecified; Z89.611 Acquired absence of right leg above knee
CPT/HCPCS: 36430; 71010; 80048; 80053; 83735; 84100; 85025; 85610; 85730; 86850; 86900; 86901; 86920; 87081; 90935; 93005; J0360; J1644; J2270; J2997; P9016

== ENCOUNTER → 2017-04-19 | Outpatient (CLI) | payer OTHER ==
[~2017-04-19] VITALS: Ht 167.6 cm; Wt 57.5 kg
[2017-04-19 15:10] VITALS: BP 137/61; PULSE 52; RESP 18; Ht 167.6 cm; Wt 57.5 kg
--- NOTE | 2017-04-19 16:03 | PN ---
Date/Time of Note Date/Time of Note DATE: 04/19/17 TIME: 15:57 Outpatient Progress Note Chief Complaint Status post amputation of right foot great toe/diabetes/ASHD/hypertension/ chronic renal failure/hyperlipidemia HPI Status post amputation of right foot great toe/patient had a gangrene of right foot great toe, patient had amputation, no fever chill, diabetes/no polydipsia polyuria hypoglycemia, very impaired vision, no rash, ASHD/no chest pain, no PND orthopnea or ankle edema, CRF/patient has chronic renal failure, no nausea vomiting arthritis, on hemodialysis, Hyperlipidemia/no xanthoma, on medication, side effect of medication, Review of Systems Const: No Fever, no chills, no Wt. loss, no Fatigue, normal appetite, no diaphoresis. Eyes: No pain, no discharge, no redness, no visual change, no foreign body. ENT: No pain, no bleeding, no congestion, no sore throat, no dysphagia, no discharge or rhinitis. Lymph: No adenopathy, no tender nodes, no lymphedema. Resp: No SOB, no cough, no sputum, no wheezing, no chest pain. CV: No chest pain, no palpitaions, no MALDONADO, no PND, no edema. GI: Normal appetite, no pain, no nausea, no vomiting, no diarrhea, no blood, no constipation. : No frequency, no urgency, no dysuria, no hematuria, no flank pain, no discharge, no bleeding. Musc: Status post amputation of right foot great toe, left above-knee amputation , no back pain, no neck pain, no knee pain, no restricted ROM. Skin: No rash, no skin lesions, no erythema, no laceration, no bruising, no pruritus. Neuro: No MONDRAGON, no dizziness, no syncope, no seizure, no focal-weakness. Endo: No polyuria, no polydypsia, no dry-skin, no temp-intolerance. Psych: No hallucinations, no depression, no anxiety, no suicidal ideation. Ext: No edema, right right foot pain, no ulcer, no weakness right foot great toe amputation, and left leg above-knee amputation, Physical Exam Vital Signs Date Time Temp Pulse Resp B/P Pulse Ox O2 Delivery O2 Flow Rate FiO2 04/19/17 15:10 98.3 52 18 137/61 100 Room Air General Appearance: A 66 year-old male who appears well-developed, well- nourished, in no acute distress. HEENT: Head normocephalic, atraumatic. Pupils equal, round, reactive to light and accommodate. Sclerae are no jaundice. Nasal turbinates pink without erythema or nasal discharge. Mucous membranes pink and moist without lesions. Oropharynx clear without any exudate or discharge. NECK: Supple. Trachea midline, No thyromegaly, No cervical lymphadenopathy, No mass, No carotid bruits, No JVD, Carotid pulses 2+ bilaterally. PULMONARY: Clear to auscultaion bilaterally, No retractions, Chest expansion symmetric bilaterally, no rales, no ronchi, no dulness on percussion. CARDIAC: Normal SI and S2, Regular rate and rythm, no murmur, gallop, or rub. GASTROINTESTINAL: Abdomen is soft, non-tender, Non Rigid, No distention, Positive bowel sounds x4 quadrants, Liver normal. SKIN: Warm, dry, no rash, no bruise, no echmosis. No laceration, EXTREMITIES: Right leg lower extremities , no edema, left leg above-knee amputation, and right leg great toe amputation, no phlabitus, pulse palpable, no contracture. MUSCULOSKELETAL: Spine Normal, Non-tender, Normal range of motion, No swelling, no deformity, no clubbing, or cyanosis, the patient has no edema right leg, status post amputation of great toe, left leg above-knee amputation, NEUROLOGIC: The patient is awake, alert, oriented, responding to yes/no questions appropriately, moving all extremities, cranial nerve intact, normal strenght, normal power, normal coordination, normal gait. Allergies Coded Allergies: vancomycin (Verified Allergy, Intermediate, rash, 04/13/17) PMH No change Social Hx No change Family Hx No change Patient History: Endocrine and metabolic disease Hypertension Assessment/Plan Impression Status post amputation of right foot great toe Diabetes ASHD Hypertension Chronic renal failure Hyperlipidemia Plan Patient education done, patient was putting pressure on the right foot, discussed about offloading, and patient may use heel until the wound is completely healed, Patient encouraged to follow with the surgery, Patient has all the medication at present, known refill, Patient has not change dressing, will change the dressing today, and patient has appointment in a couple of days with the foot doctor, Medications Home Meds Active Scripts Benazepril Hcl* (Benazepril Hcl*) 20 Mg Tablet, 20 MG PO BID, #60 TAB 3 Refills Prov:GETELIJAH Hammond 11/21/16 Metoprolol Tartrate* (Lopressor*) 25 Mg Tab, 25 MG PO BID, #60 TAB Prov:OZZIE HERRERA MD 11/10/16 Reported Medications Bicarbonate Dialysis Soln No.2 (Prismasol) Unknown Strength Solution, 5000 ML HE TID 03/18/17 Multivit/Ca Carb/B Cmplx/Fa* ([place]-Cherelle*) 1 Tab Tab, 1 TAB PO DAILY, TAB 03/18/17 Sevelamer Hcl* (Renagel*) 800 Mg Tablet, 1600 MG PO WITH MEALS, TAB 02/17/17 Aspirin (Low Dose Aspirin) 81 Mg Tablet.dr, 81 MG PO DAILY, #30 TAB 02/17/17 Omeprazole* (Omeprazole*) 40 Mg Capsule.dr, 40 MG PO DAILY, #30 CAP 02/17/17 Oxycodone HCl/Acetaminophen (Percocet 5-325 mg Tablet) 1 Each Tablet, 1 EACH PO Q6 Y for PAIN, TAB 12/22/16 PRATIMA MERRITT MD Apr 19, 2017 16:03
== END | disposition home or self-care (01) ==
LOC: DCC 14:52
PROVIDERS: ATTEND Internal Medicine
DX: E11.9 Type 2 diabetes mellitus without complications (principal); I12.9 Hypertensive chronic kidney disease with stage 1 through stage 4 chronic kidney disease, or unspecified chronic kidney disease; N18.9 Chronic kidney disease, unspecified; I25.10 Atherosclerotic heart disease of native coronary artery without angina pectoris; E78.5 Hyperlipidemia, unspecified; Z89.411 Acquired absence of right great toe; Z79.82 Long term (current) use of aspirin

== ENCOUNTER → 2017-05-03 | Outpatient (CLI) | payer OTHER ==
[~2017-05-03] VITALS: Ht 167.6 cm; Wt 57.5 kg
[2017-05-03 11:51] VITALS: Ht 167.6 cm; Wt 57.5 kg
[2017-05-03 11:52] VITALS: BP 106/52; PULSE 61; RESP 16
--- NOTE | 2017-05-03 12:18 | PN ---
Date/Time of Note Date/Time of Note DATE: 05/03/17 TIME: 12:08 Outpatient Progress Note Chief Complaint Malfunction of hemodialysis catheter/status post right great toe amputation/ diabetes/ASHD/hypertension/CRF/hyperlipidemia HPI Malfunction of hemodialysis catheter/patient had malfunction of the hemodialysis catheter, patient had surgery, left hand hemodialysis shunt working fine now status post surgery, Status post amputation of right great toe/no bleeding or discharge, patient has small hard discolored scab, patient also has second toe right foot small crater, ASHD/no chest pain PND orthopnea, Hypertension/no headache or dizziness, CRF/no nausea vomiting or pruritus, on hemodialysis, Hyperlipidemia/no xanthoma, on medication, Review of Systems Const: No Fever, no chills, no Wt. loss, no Fatigue, normal appetite, no diaphoresis. Eyes: No pain, no discharge, no redness, no visual change, no foreign body. ENT: No pain, no bleeding, no congestion, no sore throat, no dysphagia, no discharge or rhinitis. Lymph: No adenopathy, no tender nodes, no lymphedema. Resp: No SOB, no cough, no sputum, no wheezing, no chest pain. CV: No chest pain, no palpitaions, no MALDONADO, no PND, no edema. GI: Normal appetite, no pain, no nausea, no vomiting, no diarrhea, no blood, no constipation. : No frequency, no urgency, no dysuria, no hematuria, no flank pain, no discharge, no bleeding. Musc: Status post amputation of right great toe, and left above-knee amputation , no back pain, no neck pain, no knee pain, no restricted ROM. Skin: No rash, no skin lesions, no erythema, no laceration, no bruising, no pruritus. Neuro: No MONDRAGON, no dizziness, no syncope, no seizure, no focal-weakness. Endo: No polyuria, no polydypsia, no dry-skin, no temp-intolerance. Psych: No hallucinations, no depression, no anxiety, no suicidal ideation. Ext: No edema, no pain, no ulcer, no weakness. Left above-knee amputation, and right foot great toe amputation, Physical Exam Vital Signs Date Time Temp Pulse Resp B/P Pulse Ox O2 Delivery O2 Flow Rate FiO2 05/03/17 11:52 98.3 61 16 106/52 97 Room Air General Appearance: A 66 year-old male who appears well-developed, well- nourished, in no acute distress. HEENT: Head normocephalic, atraumatic. Pupils equal, round, reactive to light and accommodate. Sclerae are no jaundice. Nasal turbinates pink without erythema or nasal discharge. Mucous membranes pink and moist without lesions. Oropharynx clear without any exudate or discharge. NECK: Supple. Trachea midline, No thyromegaly, No cervical lymphadenopathy, No mass, No carotid bruits, No JVD, Carotid pulses 2+ bilaterally. PULMONARY: Clear to auscultaion bilaterally, No retractions, Chest expansion symmetric bilaterally, no rales, no ronchi, no dulness on percussion. CARDIAC: Normal SI and S2, Regular rate and rythm, no murmur, gallop, or rub. GASTROINTESTINAL: Abdomen is soft, non-tender, Non Rigid, No distention, Positive bowel sounds x4 quadrants, Liver normal. SKIN: Warm, dry, no rash, no bruise, no echmosis. EXTREMITIES: Bilateral lower extremities no edema, no phlabitus, pulse palpable very poorly on the right, status post amputation of right great toe, and has 0.4 x 0.4 cm small crater at the tip of second toe, dry, no bleeding or discharge,, left above-knee amputation, Left anterior cubital area multiple Steppel secondary to surgery, MUSCULOSKELETAL: Spine Normal, Non-tender, Normal range of motion, No swelling, no deformity, no clubbing, or cyanosis, the patient has no edema to bilateral lower extremities, NEUROLOGIC: The patient is awake, alert, oriented, responding to yes/no questions appropriately, moving all extremities, cranial nerve intact, normal strenght, normal power, normal coordination, wheelchair bound, Allergies Coded Allergies: vancomycin (Verified Allergy, Intermediate, rash, 04/13/17) PMH No change Social Hx No change Family Hx No change Patient History: Endocrine and metabolic disease Hypertension Assessment/Plan Impression Malfunction of hemodialysis catheter/status post right great toe amputation/ diabetes/ASHD/hypertension/CRF/hyperlipidemia Plan Patient education done about multiple medical complex problem, patient very high risk for repeated admission and complication, explained to the patient and the daughter, Patient high risk for CVA high risk for [place] high risk for gangrene, control of blood pressure control of blood sugar control infection, patient has antibiotic at present, patient need to continue antibiotic, Patient has right foot second toe at the tip dry small crater, 0.4 x 0.4 cm in size, discussed with the daughter, that infection and gangrene will start from there so keep an eye on it, otherwise patient will lose second 2 also, And avoid injury to the neck, Patient has appointment with vascular surgery and primary care physician, Medications Home Meds Active Scripts Benazepril Hcl* (Benazepril Hcl*) 20 Mg Tablet, 20 MG PO BID, #60 TAB 3 Refills Prov:ELIJAH DEUTSCH 11/21/16 Metoprolol Tartrate* (Lopressor*) 25 Mg Tab, 25 MG PO BID, #60 TAB Prov:OZZIE HERRERA MD 11/10/16 Reported Medications Bicarbonate Dialysis Soln No.2 (Prismasol) Unknown Strength Solution, 5000 ML HE TID 03/18/17 Multivit/Ca Carb/B Cmplx/Fa* ([place]-Cherelle*) 1 Tab Tab, 1 TAB PO DAILY, TAB 03/18/17 Sevelamer Hcl* (Renagel*) 800 Mg Tablet, 1600 MG PO WITH MEALS, TAB 02/17/17 Aspirin (Low Dose Aspirin) 81 Mg Tablet.dr, 81 MG PO DAILY, #30 TAB 02/17/17 Omeprazole* (Omeprazole*) 40 Mg Capsule.dr, 40 MG PO DAILY, #30 CAP 02/17/17 Oxycodone HCl/Acetaminophen (Percocet 5-325 mg Tablet) 1 Each Tablet, 1 EACH PO Q6 Y for PAIN, TAB 12/22/16 PRATIMA MERRITT MD May 03, 2017 12:18
== END | disposition home or self-care (01) ==
LOC: DCC 11:42
PROVIDERS: ATTEND Internal Medicine
DX: T85.611A Breakdown (mechanical) of intraperitoneal dialysis catheter, initial encounter (principal); Y84.1 Kidney dialysis as the cause of abnormal reaction of the patient, or of later complication, without mention of misadventure at the time of the procedure; I25.10 Atherosclerotic heart disease of native coronary artery without angina pectoris; I12.0 Hypertensive chronic kidney disease with stage 5 chronic kidney disease or end stage renal disease; N18.6 End stage renal disease; E78.5 Hyperlipidemia, unspecified; E11.9 Type 2 diabetes mellitus without complications; Z89.411 Acquired absence of right great toe; Z79.82 Long term (current) use of aspirin

== ENCOUNTER 2017-05-31 13:30 | Day surgery (SDC) | payer OTHER ==
[~2017-05-31] VITALS: Ht 167.6 cm; Wt 53.0 kg
[2017-05-31] VITALS (13 sets, daily range): BP systolic 110–166; BP diastolic 54–94; PULSE 60–72; RESP 15–33; Ht 167.6 cm; Wt 53.0 kg
[~2017-05-31 13:30] MED LIST changes: +CEFAZOLIN 1 GM INJ ONE
[2017-05-31] MEDS ORDERED: LIDOCAINE 2% (SDV) 5 ML INJ ONE (15:56)
[2017-05-31] MEDS ORDERED: PROPOFOL 60 ML ONE (15:56)
--- NOTE | 2017-05-31 15:58 | HPN ---
Date/Time of Note Date/Time of Note DATE: 05/31/17 TIME: 15:57 Interval H&P Admission Note Pt. seen H&P reviewed: No system changes CHAU BRANCH DPM May 31, 2017 15:58
[2017-05-31] MEDS ORDERED: FENTAnyl 50 MCG/ML VIAL ONE (15:59)
[2017-05-31] MEDS ORDERED: BUPIVACAINE 0.5% (SDV) 30 ML INJ ONE (16:04)
[2017-05-31] MEDS ORDERED: POLYMYXIN/BACITRACIN 1L IRRIG ONE (16:27)
[2017-05-31] MEDS ORDERED: ONDANSETRON 4 MG INJ ONE (17:12)
[2017-05-31] MEDS ORDERED: HYDROmorphONE (0.2 MG/ML) 10ML SYG IV ONE (17:12)
--- NOTE | 2017-05-31 17:13 | OPR ---
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 The proposed surgery was discussed with patient in great detail. Risks and complications of this type of surgery was discussed with patient in great detail. Opportunity was given to patient to ask questions and all questions were answered. The patient acknowledges understanding of the discussion. An informed consent was then obtained, signed and placed in the chart. No guarantee or warranty was given or implied as to the outcome the procedure either in verbal or written form. Patient was taken to the operating room and was placed on the operating table in the [supine position]. All bony prominences were padded properly. A timeout was called by the circulating nurse. Everyone in the operating room was agreeable to the timeout. The patient was then placed under mild sedation by the anesthesiologist and I injected the right foot with 0.5% Marcaine plain 20 cc. Attention was directed to the right foot. Open necrotic wound was present on the site of previous first ray amputation with exposed first metatarsal and second metatarsal bones. I marked the wound edge and I used a 10 blade to make my incision. I excised the chronic wound to bleeding tissue. Next a power saw was used to cut the first metatarsal and second metatarsal of the distal aspect and passed to the back table. All necrotic soft tissue tendon and ligament attachments and the area was sharply debrided. Bleeders were cauterized as necessary. The wound was irrigated with copious amounts of sterile normal saline with bacitracin. Next, I was able to reapproximate the subcutaneous layer using 3-0 Vicryl suture and the skin was closed using 0 Prolene in simple suture technique. Sterile dressing was applied to the right foot. Patient tolerated procedure and anesthesia well. He was transferred to recovery room with vital signs stable vascular status intact to the right foot. Patient will be discharged home with postoperative instructions. Postop orders written. Patient is to follow-up at the amputation prevention center in 1 week. CHAU BRANCH DPM May 31, 2017 17:13
[2017-05-31] MEDS: HYDROmorphONE (0.2 MG/ML) 10ML SYG IV PRN ×3 (17:21→18:12)
[2017-05-31] MEDS ORDERED: ONDANSETRON 4 MG INJ IV PRN (17:30)
[2017-05-31] MEDS ORDERED: EPHEDrine SULFATE 50 MG/5 ML SYG IV PRN (17:30)
[2017-05-31] MEDS ORDERED: DIPHENHYDRAMINE 50 MG INJ IV PRN (17:30)
[2017-05-31] MEDS ORDERED: METOCLOPRAMIDE 10 MG INJ IV PRN (17:30)
[2017-05-31] MEDS ORDERED: HYDROmorphONE (0.2 MG/ML) 10ML SYG IV PRN ×2 (17:30)
[2017-05-31] MEDS ORDERED: FENTAnyl 50 MCG/ML VIAL IV PRN ×3 (17:30)
[2017-05-31] MEDS ORDERED: KETOROLAC 30 MG INJ IV PRN (17:30)
[2017-05-31] MEDS ORDERED: INSULIN ASPART [NOVOLOG] 3 ML PEN SC ONE (17:30)
[2017-05-31] MEDS ORDERED: LABETALOL HCL 20MG INJ IV PRN (17:30)
[2017-05-31] MEDS ORDERED: MEPERIDINE 25 MG INJ IV PRN (17:30)
[2017-05-31] MEDS ORDERED: OXYCODONE/ACETAMINOPHEN (5/325) TAB PO PRN ×2 (17:30)
[2017-05-31] MEDS ORDERED: hydrALAzine 20 MG INJ IV PRN (17:30)
--- NOTE | 2017-05-31 21:25 | RADRPT ---
PROCEDURE: XR Right Foot. CLINICAL INDICATION: Right foot pain. Postop. TECHNIQUE: 3 views. Frontal, lateral, and oblique. COMPARISON: 04/09/2017. FINDINGS: The prior study demonstrated amputation of the distal first metatarsal. There is additional extensio n of the amputation through the mid shaft of the first metatarsal. There is new amputation through t he distal aspect of the second metatarsal. There is no fracture or dislocation. Vascular calcifications are present consistent with atherosclerosis. Articular surfaces are intact. There is no lytic lesion. There are calcaneal spurs. IMPRESSION: 1. Extension amputation of the first metatarsal and new amputation of the distal aspect of the seco nd metatarsal. 2. Atherosclerosis. 3. Calcaneal spurs. RPTAT: QQ .Rick Tomlin MD, Date Time Electronically viewed and signed by .Rick Tomlin MD, on 05/31/2017 21:25 .R/
== END 2017-05-31 18:30 | disposition home or self-care (01) ==
LOC: SDS 13:30
PROVIDERS: ATTEND Podiatrist Foot & Ankle Surgery
DX: S91.301A Unspecified open wound, right foot, initial encounter (principal); L97.514 Non-pressure chronic ulcer of other part of right foot with necrosis of bone; I25.10 Atherosclerotic heart disease of native coronary artery without angina pectoris; I10 Essential (primary) hypertension; X58.XXXA Exposure to other specified factors, initial encounter; Y93.9 Activity, unspecified; Y92.89 Other specified places as the place of occurrence of the external cause; Y99.8 Other external cause status
CPT/HCPCS: 11044; 73630; 80053; 82962; 85025; 85610; 85730; 88304; J0360; J0690; J1170; J1885; J2405; J3010; Z7512; Z7610; J1815

== ENCOUNTER 2017-06-11 18:16 | Inpatient (IN) | END 2017-07-28 16:57 | disposition home health service (06) | DRG 299 ==

== ENCOUNTER 2017-08-29 13:30 | Day surgery (SDC) | END 2017-08-29 19:28 | disposition home or self-care (01) ==

== ENCOUNTER 2017-09-19 06:41 | Day surgery (SDC) | END 2017-09-19 20:13 | disposition home or self-care (01) ==

== ENCOUNTER 2017-10-18 03:21 | Inpatient (IN) | END 2017-11-07 19:00 | disposition home health service (06) | DRG 246 ==

== ENCOUNTER 2017-11-10 15:12 | Outpatient (CLI) | END 2017-11-10 15:49 | disposition home or self-care (01) ==

== ENCOUNTER 2017-11-15 17:04 | Inpatient (IN) | END 2017-11-18 17:52 | disposition home health service (06) | DRG 291 ==

== ENCOUNTER 2017-11-24 14:22 | Outpatient (CLI) | END 2017-11-24 17:00 | disposition home or self-care (01) ==

== ENCOUNTER 2018-01-03 11:45 | Inpatient (IN) | END 2018-01-06 16:50 | disposition home health service (06) | DRG 239 ==